=== PATIENT | female | born 1955 | race Caucasian/White ===

== ENCOUNTER 2022-11-11 08:05 | Outpatient (OUT) | payer MEDICARE, SELFPAY ==
--- NOTE | 2022-11-11 08:25 | MR_ITS ---
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 Images were performed before and after the administration of ml intravenous Dotarem contrast. FINDINGS: For the purposes of numbering, sagittal T2 image # 9 extends from the T10-11 vertebral body superiorly to the S2-3 level inferiorly. PARASPINAL AREA: Normal with no visible mass. BONES: Mild anterior wedging of L1 involving the inferior endplate without marrow edema. Mild grade 1 retrolisthesis of L1 on 2 and grade 1 anterior listhesis of L3 on 4. Posterior mechanical fusion of L4 and L5 on the left side only. CORD/CAUDA EQUINA: Normal caliber, contour, and signal intensity. LUMBAR DISC LEVELS: 12-L1: Early degenerative disc disease is present without focal protrusion or neural impingement. L1-L2: Mild central canal and bilateral foramen narrowing. Anterior wedging of the inferior endplates of L1. Minimal grade 1 retrolisthesis and moderate posterior diffuse disc bulging. No significant disc height reduction. No significant facet arthropathy. L2-L3: Early degenerative disc disease is present without focal protrusion or neural impingement. L3-L4: Moderate-marked right foramen and marked left foramen narrowing. No significant central canal narrowing. Mild diffuse disc bulging and marked bilateral degenerative facet arthropathy. L4-L5: L4 laminectomy and left side only L4-5 posterior mechanical fusion. Minimal grade 1 anterolisthesis of L4 on 5. No significant central canal narrowing. Mild-moderate left and mild right foramen narrowing. Marked degenerative facet arthropathy. L5-S1: Mild foramen narrowing bilaterally without significant central canal narrowing. No disc height reduction or significant disc bulging. Moderate marked degenerative facet arthropathy bilaterally. IMPRESSION: 1. Multilevel degenerative changes and surgical changes without appreciable acute abnormality or significant progression since prior study. 2. Scarring and soft tissue posterior to L4-5 at site of prior surgery and, without significant central canal or foramen narrowing. Electronically authenticated by: BEVERLEY ARDON Date: 11/11/2022 10:45
[2022-11-11 08:32] LABS: Estimated GFR (African America >60 (>=60); Estimated GFR (Non-African Ame 60 (>=60)
== END 2022-11-11 08:06 ==
LOC: LAB 08:08
PROVIDERS: PCP Family Medicine
DX: M48.061 Spinal stenosis, lumbar region without neurogenic claudication (principal); M53.3 Sacrococcygeal disorders, not elsewhere classified; Z98.1 Arthrodesis status
CPT/HCPCS: 36415; 72158; 82565; 84520; A9575

== ENCOUNTER 2022-12-28 13:16 | Outpatient (OUT) | payer MEDICARE, SELFPAY ==
[2022-12-28 13:15] VITALS: BP 133/83; PULSE 86; RESP 18; TEMP 36.3; O2SAT 97
== END 2022-12-28 13:17 | disposition home or self-care (01) ==
LOC: INF 13:17
PROVIDERS: PCP Family Medicine; Visit Provider Nurse Practitioner Family
DX: N39.0 Urinary tract infection, site not specified (principal)
CPT/HCPCS: 96366; J1335

== ENCOUNTER 2023-01-02 09:45 | Outpatient (RCR) | payer MEDICARE, SELFPAY ==
[2023-01-02 09:57] VITALS: BP 156/84; PULSE 65; RESP 16; TEMP 36.3; O2SAT 98
[2023-01-02 10:09] VITALS: BP 142/92; PULSE 76; RESP 16; TEMP 36.6; O2SAT 96
[2023-01-02] MEDS: ERTAPENEM SODIUM 1 GM in 0.9 % SODIUM CHLORIDE 50 ML IV (10:09)
[2023-01-03] MEDS: ERTAPENEM SODIUM 1 GM in 0.9 % SODIUM CHLORIDE 50 ML IV (09:53)
== END 2023-01-03 14:02 | disposition home or self-care (01) ==
LOC: INF 09:45
PROVIDERS: PCP Family Medicine; Visit Provider Family Medicine
DX: Z53.9 Procedure and treatment not carried out, unspecified reason (principal); N39.0 Urinary tract infection, site not specified
CPT/HCPCS: 96365; J1335

== ENCOUNTER 2023-01-02 10:00 | Outpatient (RCR) | payer MEDICARE, SELFPAY ==
[2022-12-29 14:17] VITALS: BP 136/74; PULSE 90; RESP 18; TEMP 36.3; O2SAT 98
[2022-12-29] MEDS: ERTAPENEM SODIUM 1 GM in 0.9 % SODIUM CHLORIDE 50 ML IV (14:38)
[2022-12-30 10:33] VITALS: BP 132/84; PULSE 75; RESP 16; TEMP 36.4; O2SAT 98
[2022-12-31 07:50] VITALS: BP 153/91; PULSE 95; RESP 16; TEMP 36; O2SAT 97
--- NOTE | 2022-12-31 07:50 | PC.NURSE ---
Pt. to [facility] amb. per self. Seated in recliner. VSS. Pt. with existing #[address] to left hand. No redness or edema to site. Flushes easily. Denies pain to site. IV Invanz initiated as ordered. Pt. offered snack, drink, pt. declines.
[2022-12-31] MEDS: ERTAPENEM SODIUM 1 GM in 0.9 % SODIUM CHLORIDE 50 ML IV (08:05)
--- NOTE | 2022-12-31 08:32 | PC.NURSE ---
IV Invanz completed. Pt. tolerated without c/o. IV left in and to SLF. Capped and wrapped with Coban dressing. Pt. d/c'd to home amb.
[2023-01-01 07:50] VITALS: BP 148/80; PULSE 84; RESP 20; TEMP 36.5; O2SAT 97
--- NOTE | 2023-01-01 07:50 | PC.NURSE ---
Pt. to [facility] amb. for daily antibiotic treatment. Seated in recliner. VSS. Pt. with existing IV to left hand. Leaks around insertion site when flushing. IV d/c'd, pressure to site. #22 gauge IV initiated to left lat. arm on first attempt without difficulty. Flushes easily with good blood return. Pt. tolerated with minimal c/o pain. IV Invanz initiated as ordered. Pt. given snack. Denies needs or c/o.
[2023-01-01] MEDS: ERTAPENEM SODIUM 1 GM in 0.9 % SODIUM CHLORIDE 50 ML IV (08:07)
--- NOTE | 2023-01-01 08:39 | PC.NURSE ---
IV Invanz completed. Pt. without s&s of adverse reaction. IV flushed with saline and to SLF. Arm wrapped with Coban dressing to protect IV. Pt. without c/o. D/c'd to home amb.
== END 2023-01-28 23:59 | disposition home or self-care (01) ==
LOC: INF 10:00
PROVIDERS: PCP Family Medicine; Visit Provider Nurse Practitioner Family
DX: N39.0 Urinary tract infection, site not specified (principal)
CPT/HCPCS: 96365; 96366; J1335

== ENCOUNTER 2023-01-04 08:54 | Outpatient (OUT) | payer MEDICARE, SELFPAY ==
[2023-01-04 09:22] LABS: Bilirubin Urine NEGATIVE (NEGATIVE); Blood Urine NEGATIVE (NEGATIVE); Clarity Urine CLEAR (CLEAR); Color Urine YELLOW (YELLOW); Glucose Urine UA NEGATIVE (NEGATIVE); Ketones Urine NEGATIVE (NEGATIVE); Leukocyte Esterase Urine NEGATIVE (NEGATIVE); Nitrite Urine NEGATIVE (NEGATIVE); Protein Urine NEGATIVE (NEG/TRACE); Specific Gravity Urine 1.025 (1.005-1.025); Urobilinogen Urine 0.2 EU/dL (0.2-1.0); pH Urine 5.5 (5.0-9.0)
[2023-01-04 09:54] LABS: Bacteria Urine NONE SEEN #/HPF (NONE SEEN); Mucus Urine NONE SEEN (NONE SEEN); RBC Urine NONE SEEN #/HPF (0-2); Squamous Epithelial Cell Urine RARE #/LPF (NONE/RARE); WBC Urine NONE SEEN #/HPF (NONE SEEN)
== END 2023-01-04 08:55 | disposition home or self-care (01) ==
LOC: LAB 08:56
PROVIDERS: PCP Family Medicine; Visit Provider Family Medicine
DX: N39.0 Urinary tract infection, site not specified (principal)
CPT/HCPCS: 81001; 87086

== ENCOUNTER 2023-04-20 11:27 | Outpatient (REF) | payer MEDICARE, SELFPAY ==
[2023-04-20 11:57] LABS: SARS-CoV-2 Ag POSITIVE (NEGATIVE)
--- OUTSIDE RECORDS SUMMARY | 2023-05-18 22:20 | XMS_ITS | CCD ---
Author Name Unknown Address [address] [facility] [address] [place] [address] Organization [facility] Care Team Providers Care Managing Cognitive Engineer Name Role Phone Ricardo Hooper MD Primary Care Provider Madisyn Lara MD Unavailable [phone] MD Ricardo Hooper Primary Care Provider [phone] MD Rocky Villasenor Attending Provider [phone] DO Enmanuel Burton Attending Provider Ricardo Hooper MD Primary Care Provider [phone] Ricardo Hooper MD Primary Care Provider Marco DANGELO, Madisyn Reagan Unavailable Ricardo Hooper MD Primary Care Provider [phone] Madisyn Lara MD Unavailable [phone] Ricardo Hooper MD Primary Care Provider [phone] DR RICARDO IYER Admitting Unavailable SANDIE ., DR SILVA Consulting Unavailable ANIY ., DR SILVA Attending Unavailable SANDIE ., DR SILVA Primary Care Unavailable SANDIE ., DR SILVA Admitting Unavailable SANDIE ., DR SILVA Consulting Unavailable SANDIE ., DR SILVA Attending Unavailable SANDIE ., DR SILVA Primary Care Unavailable DR ENMANUEL BURTON Consulting Unavailable DEREK COLLINS Consulting Unavailable SANDIE ., DR SILVA Primary Care Unavailable ZAFAR, DR JOSE ALBERTO Long Consulting Unavailable EVERARDO PERALTA Attending Unavailable EVERARDO PERALTA Admitting Unavailable EVERARDO PERALTA Consulting Unavailable VERNELL FARRELL Attending Unavailable VERNELL FARRELL Admitting Unavailable SANDIE ., DR SILVA Primary Care Unavailable VERNELL FARRELL Consulting Unavailable VERNELL FARRELL Attending Unavailable HOY ., DR SILVA Primary Care Unavailable JAMI, VERNELL Admitting Unavailable JAMI, VERNELL Admitting Unavailable VERNELL FARRELL Attending Unavailable HOY ., DR SILVA Primary Care Unavailable HOY ., DR SILVA Consulting Unavailable LAKSHMIPATHY ., NARENDRANATH Admitting Tierra vailable HOY ., DR SILVA Primary Care Unavailable LAKSHMIPATHY ., VIN Attending Tierra vailable HOY ., DR SILVA Admitting Unavailable HOY ., DR SILVA Primary Care Unavailable HOY ., DR SILVA Consulting Unavailable HOY ., DR SILVA Attending Unavailable MADISYN CAAL Consulting Unavailable HOY ., DR SILVA Consulting Unavailable HOY ., DR SILVA Attending Unavailable HOY ., DR SILVA Primary Care Unavailable HOY ., DR SILVA Admitting Unavailable HOY ., DR SILVA Admitting Unavailable HOY ., DR SILVA Consulting Unavailable HOY ., DR SILVA Attending Unavailable HOY ., DR SILVA Primary Care Unavailable FELISHA BARROW Consulting Unavailable HOY ., DR SILVA Primary Care Unavailable EVERARDO PERALTA Attending Unavailable THORP, DR JOSE ALBERTO Long Consulting Unavailable EVERARDO PERALTA Admitting Unavailable EVERARDO PERALTA Consulting Unavailable VERNELL FARRELL Consulting Unavailable VERNELL FARRELL Attending Unavailable VERNELL FARRELL Admitting Unavailable HOY ., DR SILVA Primary Care Unavailable HOY ., DR SILVA Primary Care Unavailable CLARI GILLETTE Admitting Unavailable AIDE LONDON Consulting Unavailabl e CLARI GILLETTE Attending Unavailable CECE VOGT Admitting Unavailable HOY ., DR SILVA Primary Care Unavailable CECE VOGT Attending Unavailable HOY ., DR SILVA Admitting Unavailable HOY ., DR SILVA Attending Unavailable HOY ., DR SILVA Primary Care Unavailable LEOBARDO BRASHER Attending Unavailable QUENTIN ., LEOBARDO Admitting Unavailable SANDIE ., DR SILVA Primary Care Unavailable QUENTIN .LEOBARDO Consulting Unavailable DIEGO ., DR IRELAND Attending Unavailable DIEGO ., DR IRELAND Admitting Unavailable SANDIE ., DR SILVA Primary Care Unavailable DR SHU RODRIGUES Consulting Unavailable Ricardo Hooper Primary Care Physician Rocael Wayne Attending Unavailable QUIQUE MOJICA Referring Unavailable RICARDO HOOPER Primary Care Unavailable KRISTOF, QUIQUE Referring Unavailable HOY, RICARDO M Primary Care Unavailable KRISTOF, QUIQUE Admitting Unavailable KRISTOF, QUIQUE Attending Unavailable BLOOD, JUVENAL P Consulting Unavailable HOY, RICARDO M Primary Care Unavailable MARVA HOBBS Consulting Unavailable JAIR, ZAINULABEDIN Consulting Unavailable KRISTOF, QUIQUE Admitting Unavailable KRISTOF, QUIQUE Attending Unavailable BLOOD, JUVENAL P Consulting Unavailable HOY, RICARDO M Primary Care Unavailable HOMER KARIMI Consulting Unavailable MD Ricardo Hooper Primary Care Provider [phone] Self, Referral Attending Provider Unavailable Hoy, Ricardo M Primary Care Unavailable Self, Referral Attending Unavailable Self, Referral Admitting Unavailable ABHYANKAR, JOSE Referring Unavailable ABHYANKAR, JOSE Attending Unavailable HOY, RICARDO M Primary Care Unavailable HOY, RICARDO M Primary Care Unavailable ABHYANKAR, JOSE Referring Unavailable ABHYANKAR, JOSE Attending Unavailable HOY, RICARDO M Primary Care Unavailable ABHYANKAR, JOSE Referring Unavailable HOY, RICARDO M Primary Care Unavailable ABHYANKAR, JOSE Referring Unavailable HOY, RICARDO M Primary Care Unavailable HOY, RICARDO M Primary Care Unavailable HOY, RICARDO M Primary Care Unavailable ABHYANKAR, JOSE Attending Unavailable ABHYANKAR, JOSE Referring Unavailable HOY, RICARDO M Primary Care Unavailable Marco DANGELO, Madisyn Reagan Unavailable Allergies Allergy Classification Reported Allergen(s) Allergy Type Date of Onset Reaction(s) Facility (11 sources) Ciprofloxacin; Translations: [ciprofloxacin] Drug Allergy 01-31-20 13 Intolerance, Respiratory function (observable entity), Joint pain (finding) [facility] (11 sources) Clindamycin; Translations: [clindamycin] Drug Allergy 01-24-20 15 Vomiting [facility] (13 sources) Doxycycline; Translations: [doxycycline] Drug Allergy 05-14-20 20 Vomiting, Nausea And Vomiting [facility] (8 sources) NITROFURANTOIN, MACROCRYSTALS / Nitrofurantoin, Monohydrate; Translations: [nitrofurantoin] Drug Allergy 10-23-19 22 GI Upset, Hives, Itching, Rash, Swelling [facility] (6 sources) Penicillins; Translations: [PENICILLINS] Drug Allergy 01-31-20 13 Shortness of Breath [facility] (8 sources) tioconazole; Translations: [tioconazole topical] Drug Allergy 01-23-20 15 Other: See Comments [facility] (7 sources) Skin Cleanser Combination No.17; Translations: [SKIN CLEANSER COMBINATION NO.17] Drug Allergy 09-02-19 18 Unknown [facility] (5 sources) Miconazole; Translations: [miconazole] Drug Allergy 01-31-20 13 vaginal burning [facility] (2 sources) Nitrofurantoin Drug Allergy 01-27-20 22 Rash [facility] (2 sources) Clindamycin/Lincom ycin Propensity to adverse reactions to drug 01-31-20 13 [facility] Work Phone: (5 sources) Penicillins Drug Allergy 01-24-20 15 Shortness of Breath [facility] (6 sources) levoFLOXacin; Translations: [levofloxacin] Drug Allergy 04-09-20 22 Myalgia, Joint swelling (finding) [facility] (1 source) Ciprofloxacin Drug Allergy 03-16-20 14 [facility] (1 source) Clindamycin Drug Allergy 03-16-20 14 [facility] (1 source) Doxycycline Drug Allergy 05-14-20 20 [facility] (3 sources) levoFLOXacin; Translations: [Levaquin] Drug Allergy 04-28-20 22 [facility] (1 source) Miconazole Drug Allergy [facility] (3 sources) Nitrofurantoin; Translations: [Macrobid] Drug Allergy 04-28-20 22 [facility] (1 source) Penicillins Drug allergy (disorder) 03-16-20 14 [facility] (2 sources) Penicillin; Translations: [penicillin] Drug Allergy [facility] (1 source) tioconazole; Translations: [tioconazole topical] Drug Allergy 01-23-20 15 [facility] (1 source) Clindamycin Drug Allergy 12-19-19 21 [facility] (1 source) Doxycycline Drug Allergy 12-19-19 21 [facility] (1 source) Penicillins Drug allergy (disorder) 12-19-19 21 [facility] Medications Current Medications Medication Drug Class(es) Dates Sig (Normalized) Sig (Original) acetaminophen 325 mg / oxyCODONE hydrochloride 5 mg oral tablet (2 sources) Opioid Agonist Start: 02-17-2022 End: 02-24-2022 take 1-2 tablets by mouth every four hours as needed for pain oxyCODONE-acetamino phen (PERCOCET) 5-325 MG per tablet Indications: Lumbar stenosis with neurogenic claudication Take 1-2 tablets by mouth every 4 hours as needed for Pain for up to 7 days. 60 tablet 0 02/17/2022 02/24/2022 Active Start: 02-16-2022 oxyCODONE-acet aminophen (PERCOCET) 5-325 MG per tablet 1 tablet biotin 10 mg oral tablet (1 source) take 1 tablet by mouth at bedtime Biotin 83534 MCG TABS Take 1 tablet by mouth in the morning and at bedtime 0 Active cefdinir 300 mg oral capsule (3 sources) Cephalosporin Antibacterial Start: 10-10-2022 End: 10-17-2022 take 1 capsule by mouth every twelve hours cefdinir 300 mg Cap 300 mg = 1 cap(s), Oral, q12hr, X 7 day(s), # 14 cap(s), Refills(s) 0 Start Date: 10/10/22 Stop Date: 10/17/22 Status: Ordered Start: 09-28-2022 take 2 capsules by m outh once daily cefdinir (OMNICEF) 300 mg capsule take 2 capsules by mouth once daily for 10 days 0 09/28/2022 Active Comment on above: take 2 capsules by m outh once daily for 10 days docusate sodium 50 mg / sennosides, correction 8.6 mg oral tablet (2 sources) Start: 02-16-2022 take 1 tablet by mouth twice daily sennosides-docusate sodium (SENOKOT-S) 8.6-50 MG tablet Take 1 tablet by mouth 2 times daily 60 tablet 0 02/17/2022 Active esomeprazole 40 mg delayed release oral capsule (11 sources) Proton Pump Inhibitor Start: 10-19-2009 take 1 capsule by mouth once daily Esomeprazole Magnesium (Nexium) 40 mg Capsule,Delayed Release(Dr/Ec) Active 40 MG PO Daily May 17, 2018 1:00am take 40 mg by mouth once daily e someprazole Magnesium (NEXIUM) 40 MG PACK Take 40 mg by mouth daily. 0 Active Comment on above: Take 40 mg by mouth. ferrous sulfate 325 mg oral tablet (4 sources) Start: 04-14-2022 End: 04-09-2023 take 1 tablet by mouth once daily at breakfast ferrous sulfate 325 mg (65 mg iron) tablet Take 1 tablet by mouth daily with breakfast. 30 tablet 6 04/14/2022 04/09/2023 Active Comment on above: Take 1 tablet by landy th daily with breakfast. ibuprofen 800 mg oral tablet (11 sources) Nonsteroidal Anti-inflammatory Drug Start: 10-10-2015 take 800 mg by mouth three times daily Ibuprofen Active 800 MG PO Three times daily May 17, 2018 1:00am take 1 tablet by landy th every six hours as needed ibuprofen (MOTRIN) 800 mg tablet Take 800 mg by mouth every 6 hours as needed. 0 Active End: 02-17-2022 take 1 tablet by mouth every eight hours as needed ibuprofen (ADVIL;MOTRIN) 800 MG tablet Take 800 mg by mouth every 8 hours as needed. 0 02/17/2022 Discontinued (Stop Taking at Discharge) Comment on above: Take 800 mg by mouth every 6 hours as needed. iv contrast (will be provide d with radiology test) (1 source) Start: 10-07-2022 End: 10-08-2022 iv contrast (will be provide d with radiology test) CT Chest W -Inject, intravenously, once for 1 dose.No IV access, insert saline lock prior to the beginning of sedation, infusion, injection of imaging exam. Discontinue saline lock post exam. If Pt. has a central line or IVAD, may access for administration according to line specific nursing protocol. Once exam is complete flush line and de-access according to line specific nursing protocol in the CT contrast administration guidelines link. 1 Each 0 10/07/2022 10/08/2022 Active Comment on above: CT Chest W -Inject, intravenously, once for 1 dose.No IV access, insert saline lock prior to the beginning of sedation, infusion, injection of imaging exam. Discontinue saline lock post exam. If Pt. has a central line or IVAD, may access for administration according to line specific nursing protocol. Once exam is complete flush line and de-access according to line specific nursing protocol in the CT contrast administration guidelines link. lisinopril 20 mg oral tablet (11 sources) Angiotensin Converting Enzyme Inhibitor Start: 10-10-2015 End: 02-17-2022 take 20 mg by mouth once daily Lisinopril Active 20 MG PO Daily May 17, 2018 1:00am Comment on above: lisinopril 20 mg tab let Take 1 tablet every day by oral route. mometasone furoate 0.05 mg/actuat metered dose nasal spray (3 sources) Corticosteroid Start: 12-18-2020 Mometasone (Na sonex) 50 mcg/actuation [place],Non-Aerosol Active 2 SPRAY INTRANASAL Daily December 18, 2020 12:00am take 2 spray(s) nasal route once daily mometasone (NASONEX) 50 MCG/ACT nasal spray 2 sprays by Each Nostril route daily 0 Active morphine (PF) injection 2 mg (1 source) Start: 02-16-2022 morphine (PF) injection 2 mg OXcarbazepine 150 mg oral tablet (1 source) Anti-epileptic Agent take 1 tablet by mouth twice daily OXcarbazepine (TRILEPTAL) 150 MG tablet Take 150 mg by mouth 2 times daily 0 Active predniSONE 20 mg oral tablet (1 source) Start: 10-10-2022 End: 10-17-2022 take 3 tablets by mouth once daily predniSONE 20 mg Tab 60 mg = 3 tab(s), Oral, Daily, X 7 day(s), # 21 tab(s), Refills(s) 0 Start Date: 10/10/22 Stop Date: 10/17/22 Status: Ordered Promethazine (1 source) Phenothiazine Start: 02-16-2022 promethazine (PHENERGAN) tablet 12.5 mg Sennosides (Senokot) 8.6 mg Tablet (2 sources) Start: 05-17-2018 take 8 tablets by mouth at bedtime Sennosides (Senokot) 8.6 mg Tablet Active 8 TAB PO Bedtime May 17, 2018 1:00am sennosides, correction 8.6 mg oral tablet (2 sources) Start: 10-10-2015 take 8.6 mg by mouth once daily Senokot 8.6 mg, Oral, Daily, Refills(s) 0, Constipation Start Date: 10/10/15 Status: Ordered traMADol hydrochloride 50 mg oral tablet (3 sources) Opioid Agonist Start: 12-18-2020 take 50 mg by mouth three times daily Tramadol Active 50 MG PO Three times daily December 18, 2020 12:00am take 1 tablet by landy th every six hours as needed for pain traMADol (ULTRAM) 50 MG tablet Take 50 m g by mouth every 6 hours as needed for Pain. 0 Active Completed/Discontinued Medications Medication Drug Class(es) Dates Sig (Normalized) Sig (Original) acetaminophen 500 mg oral tablet (1 source) Start: 02-16-2022 End: 02-16-2022 acetaminophen (TYLENOL) tablet 1,000 mg [id number] 200 actuat albuterol 0.09 mg/actuat metered dose inhaler (2 sources) beta2-Adrenergic Agonist Start: 02-16-2022 take 1 puff(s) by inhalation every six hours as needed 1 puff, Inhalation, EVERY 6 HOURS PRN, Starting on Wed02/16/22 at 1819, Until Discontinued, Wheezing, Shortness of Breath Initiate RT Bronchodilator Protocol: No Post-op albuterol sulfat e HFA (PROVENTIL;VENTOLIN;PROAIR) 108 (90 Base) MCG/ACT inhaler Ventolin HFA 90 mcg/actuation aerosol inhaler 0 Active baclofen 10 mg oral tablet (10 sources) gamma-Aminobutyric Acid-ergic Agonist Start: 02-16-2022 take 10 mg by mouth three times daily as needed 10 mg, Oral, 3 TIMES DAILY PRN, Starting on Wed02/16/22 at 1820, Until Discontinued, Muscle spasms, Post-op Start: 12-18-2020 take 20 mg by mouth once daily Baclofen Active 20 MG PO Daily December 18, 2020 12:00am Comment on above: Take 10 mg by mouth. calcium chloride 0.0014 meq/ml / potassium chloride 0.004 meq/ml / sodium chloride 0.103 meq/ml / sodium lactate 0.028 meq/ml injectable solution (1 source) Start: 02-16-2022 End: 02-16-2022 lactated ringers infusion 1 ml dexamethasone phosphate 10 mg/ml injection (1 source) Corticosteroid Start: 02-16-2022 End: 02-17-2022 6 mg, IntraVENous, EVERY 8 HOURS, First dose on Wed02/16/22 at 2200, For 3 doses, Post-op estradiol 0.1 mg/ml vaginal cream (9 sources) Estrogen Start: 05-17-2018 estradiol (EST RACE) 0.01 % (0.1 mg/gram) vaginal cream 1 g. 0 05/17/2018 Active Start: 05-17-2018 Estradiol (Est race) 0.01 % (0.1 mg/gram) Cream Active 1 GM VAGINAL every week May 17, 2018 1:00am Start: 10-10-2015 Estrace = 0.01 %, Refills(s) 0, Prophylaxis Start Date: 10/10/15 Status: Ordered Comment on above: 1 g. fluticasone propionate 0.05 mg/actuat metered dose nasal spray (3 sources) Corticosteroid Start: 02-16-2022 take 2 spray(s) nasal route once daily 2 spray, Each Nostril, DAILY, First dose on Wed02/16/22 at 1845, Until Discontinued Please select a reason the therapeutic interchange was not accepted: Okay for Pharmacy to Substitute Post-op fluticasone prop ionate (FLONASE NASAL) Use in the nose as needed. 0 Active Comment on above: Use in the nose as n eeded. gabapentin 300 mg oral capsule (1 source) Anti-epileptic Agent Start: 02-16-2022 End: 02-16-2022 gabapentin (NEURONTIN) capsule 300 mg 0.5 ml HYDROmorphone hydrochloride 1 mg/ml prefilled syringe (1 source) Opioid Agonist Start: 02-16-2022 End: 02-16-2022 HYDROmorphone HCl PF (DILAUDID) injection 0.5 mg hydrOXYzine hydrochloride 10 mg oral tablet (1 source) Antihistamine Start: 02-16-2022 take 10 mg by mouth every eight hours as needed 10 mg, Oral, EVERY 8 HOURS PRN, Starting on Wed02/16/22 at 1819, Until Discontinued, Itching, Post-op methenamine hippurate 1000 mg oral tablet (3 sources) Start: 06-05-2021 take 1 tablet by mouth twice daily at mealtime Methenamine Hippurate (HIPREX) 1 gram tablet Take 1 tablet by mouth twice daily with meals. 60 tablet 11 06/05/2021 Active Comment on above: Take 1 tablet by landy twice daily with meals. One A Day Women's Complete (1 source) Start: 02-07-2021 One A Day Women's Complete Oral, Daily Start Date: 02/07/21 Status: Ordered pantoprazole 40 mg delayed release oral tablet (1 source) Proton Pump Inhibitor Start: 02-16-2022 take 40 mg by mouth once daily 40 mg, Oral, DAILY, First dose on Wed02/16/22 at 1845, Until Discontinued Do not crush or break. Subst ituted for esomeprazole Post-op polyethylene glycol 3350 21028 mg powder for oral solution (1 source) Osmotic Laxative Start: 02-16-2022 17 g, Oral, DAILY, First dose on Wed02/16/22 at 1845, Until Discontinued, Post-op 5 ml sodium chloride 9 mg/ml injection (4 sources) Start: 02-16-2022 take 1 dose intravenously twice daily 5-40 mL, IntraVENous, EVERY 12 HOURS SCHEDULED (2 times per day), First dose on Wed02/16/22 at 2100, Until Discontinued For Line Patency: Peripheral IV = 5 mL; Midline or Central Line = 10 mL/lumen.&nbs p; If following IV push medication, administer flush at same rate as the IV push. Flush volume is determined by type of infusion therapy being given. &nbsp ;For non-viscous solutions use: Periphe ral IV = 5 mL Midline or Central Line = 10 mL/lumen &nb sp;For viscous solutions (i.e. blood components, parenteral nutrition, contrast media, or after obtaining blood sample) use: Periphe ral IV = 10 mL Midline or Central Line = 20 mL/lumen Post-op Start: 02-16-2022 IntraVENous, a t 5-250 mL/hr, PRN, if patient receiving piggyback infusions and maintenance fluids are not ordered OR KVO fluids to protect IV site / prevent frequent line interruptions/ long duration, Starting on Wed02/16/22 at 1819 For piggyback infusion, administer at same rate as piggyback for a total of 25 mL. Enter 25 mL into dose field and piggyback rate into rate field of order. If piggyback is infusing at a rate less than 100 mL/hr, enter 25 mL into dose field and 100 mL/hr into rate field of order. For KVO fluids, enter rate of 20 mL/hr or less into rate field of order. Post-op Start: 02-16-2022 IntraVENous, a t 125 mL/hr, CONTINUOUS, Starting on Wed02/16/22 at 1815, Post-op Start: 02-16-2022 take 5-40 mL intrave nously once as needed 5-40 mL, IntraVENous, PRN, Starting on Wed02/16/22 at 1819, Until Discontinued, Line Care, After every IV line use For Line Patency: Peripheral IV = 5 mL; Midline or Central Line = 10 mL/lumen. If following IV push medication, administer flush at same rate as the IV push. Flush volume is determined by type of infusion therapy being given. For non-viscous solutions use: Peripheral IV = 5 mL Midline or Central Line = 10 mL/lumen For viscous solutions (i.e. blood components, parenteral nutrition, contrast media, or after obtaining blood sample) use: Peripheral IV = 10 mL Midline or Central Line = 20 mL/lumen Post-op sulfamethoxazole 400 mg / trimethoprim 80 mg oral tablet (9 sources) Dihydrofolate Reductase Inhibitor Antibacterial, Sulfonamide Antimicrobial Start: 11-07-2021 sulfamethoxazole-trimethopri m (BACTRIM,SEPTRA) 400-80 mg per tablet Take by mouth once daily. 0 11/07/2021 Active Start: 12-18-2020 take 1 tablet by landy th once daily Sulfamethoxazole-Trimethoprim (Bactrim D s) 800-160 mg tablet Active 1 TAB PO Daily December 18, 2020 12:00am take 1 tablet by landy th once sulfamethoxazole-trimethoprim (BACTRIM DS;SEPTRA DS) 800-160 MG per tablet Take 1 tablet by mouth once 0 Active Comment on above: Take 1 tablet by landy th once daily. Take by mouth once d aily. tiZANidine 4 mg oral tablet (1 source) Central alpha-2 Adrenergic Agonist Start: 02-16-2022 End: 02-16-2022 tiZANidine (ZANAFLEX) tablet 4 mg traZODone hydrochloride 100 mg oral tablet (11 sources) Serotonin Reuptake Inhibitor Start: 10-19-2009 take 1 tablet by mouth once daily at bedtime traZODone (DESYREL) 100 mg tablet Take 100 mg by mouth daily at bedtime. 0 01/12/2019 Active Comment on above: Take 100 mg by mouth daily at bedtime. vancomycin (VANCOCIN) 1,500 mg in dextrose 5 % 250 mL IVPB (1 source) Start: 02-16-2022 End: 02-17-2022 1,500 mg, IntraVENous, EVERY 12 HOURS, 1 dose, First dose on 02/16/22 at 1845 Antimicrobial Indications: Surgical Prophylaxis Post-op Problems Active Problems Problem Classification Problem Date Documented Date Episodic/Chronic Chronic obstructive pulmonary disease and bronchiectasis (1 source) Bronchitis 08-11-2013 Episodic Coagulation and hemorrhagic disorders (8 sources) Platelet count below reference range; Translations: [Thrombocytopenia, unspecified] Onset: 07-15-2018 07-15-2018 Chronic Deficiency and other anemia (8 sources) Iron deficiency anemia secondary to inadequate dietary iron intake; Translations: [Other iron deficiency anemias] Onset: 04-10-2022 Episodic Deficiency and other anemia (1 source) Anemia, unspecified; Translations: [ANEMIA UNSPECIFIED] Onset: 09-04-2022 Episodic Diabetes mellitus without complication (1 source) Other abnormal glucose; Translations: [OTHER ABNORMAL GLUCOSE] Onset: 09-04-2022 Episodic Disorders of lipid metabolism (1 source) Hyperlipidemia, unspecified; Translations: [HYPERLIPIDEMIA UNSPECIFIED] Onset: 09-04-2022 Chronic Endometriosis (1 source) Endometriosis (clinical) 08-11-2013 Chronic Esophageal disorders (6 sources) Gastroesophageal reflux disease; Translations: [Gastro-esophageal reflux disease without esophagitis] Onset: 10-09-2022 12-18-2020 Chronic Essential hypertension (8 sources) Hypertensive disorder; Translations: [Essential (primary) hypertension] Onset: 08-29-2022 Chronic Menopausal disorders (1 source) Atrophy of vagina; Translations: [Postmenopausal atrophic vaginitis] Chronic Osteoarthritis (1 source) Arthritis 02-07-2021 Chronic Other acquired deformities (1 source) Spondylolisthesis, site unspecified; Translations: [Spondylolisthesis, site unspecified] Onset: 01-11-2023 Episodic Other aftercare (1 source) Other meterman (current) drug therapy; Translations: [OTH DISPATCHER RADIOACTIVE WASTE DISPOSAL CURRENT DRUG THERAPY] Onset: 10-09-2022 Episodic Other and unspecified benign neoplasm (2 sources) History of polyp of colon; Translations: [Personal history of colonic polyps] 12-18-2020 Episodic Other connective tissue disease (1 source) Presence of unspecified artificial knee joint; Translations: [PRESENCE UNS ARTIFICIAL KNEE JOINT] Onset: 10-09-2022 Chronic Other connective tissue disease (1 source) Fibromyalgia; Translations: [FIBROMYALGIA] Onset: 10-09-2022 Episodic Other ear and sense organ disorders (3 sources) Otalgia, left ear; Translations: [OTALGIA LEFT EAR] Onset: 10-08-2022 Episodic Other ear and sense organ disorders (1 source) Bullous myringitis, left ear; Translations: [BULLOUS MYRINGITIS LEFT EAR] Onset: 10-09-2022 Episodic Other non-traumatic joint disorders (4 sources) Pain in left ankle and joints of left foot; Translations: [PAIN IN LEFT ANKLE] Onset: 08-05-2022 Episodic Other screening for suspected conditions (not mental disorders or infectious disease) (1 source) Patient encounter status; Translations: [Encounter for screening for other disorder] Episodic Otitis media and related conditions (1 source) Non-suppurative otitis media; Translations: [Unspecified nonsuppurative otitis media, left ear] Onset: 10-10-2022 Episodic Residual codes; unclassified (1 source) Acquired absence of both cervix and uterus; Translations: [ACQUIRED ABSENCE BOTH CERVIX AND UTERUS] Onset: 10-09-2022 Episodic Spondylosis; intervertebral disc disorders; other back problems (9 sources) Spinal stenosis of lumbar region; Translations: [Spinal stenosis, lumbar region with neurogenic claudication] Onset: 01-26-2022 Episodic Unclassified (1 source) PERSONAL HISTORY OF COVID-19; Translations: [PERSONAL HISTORY OF COVID-19] Onset: 10-09-2022 Unclassified (3 sources) COUGH, UNSPECIFIED; Translations: [COUGH, UNSPECIFIED] Onset: 04-30-2022 Unclassified (1 source) CONTACT W/AND (SUSP) EXPOS COVID-19; Translations: [CONTACT W/AND (SUSP) EXPOS COVID-19] Onset: 04-30-2022 Unclassified (1 source) Encounter for screening mammogram for malignant neoplasm of breast; Translations: [Encounter for screening mammogram for malignant neoplasm of breast] Onset: 02-22-2023 Past or Other Problems Problem Classification Problem Date Documented Date Episodic/Chronic Abdominal pain (4 sources) Left lower quadrant pain; Translations: [LEFT LOWER QUADRANT PAIN] Onset: 12-26-2021 Episodic Acquired foot deformities (4 sources) Valgus deformity, not elsewhere classified, left ankle; Translations: [VALGUS DEFORMITY NEC LEFT ANKLE] Onset: 11-03-2021 Episodic Allergic reactions (4 sources) Allergic urticaria; Translations: [ALLERGIC URTICARIA] Onset: 10-22-2021 Episodic E Codes: Adverse effects of medical drugs (1 source) Adverse effect of other viral vaccines, initial encounter; Translations: [ADVERS EFF OTH VIRAL VACC INIT ENC] Onset: 04-30-2022 Episodic Genitourinary symptoms and ill-defined conditions (11 sources) Personal history of urinary (tract) infections; Translations: [Personal history of other diseases of urinary system] Onset: 11-12-2021 Episodic Influenza (1 source) Influenza due to other identified influenza virus with other respiratory manifestations; Translations: [FLU D/T OTH ID FLU VIR OTH RSP MANF] Onset: 04-30-2022 Episodic Lymphadenitis (8 sources) Mediastinal lymphadenopathy; Translations: [Localized enlarged lymph nodes] Onset: 01-15-2021 01-15-2021 Episodic Malaise and fatigue (1 source) Weakness; Translations: [WEAKNESS] Onset: 01-30-2022 Episodic Other connective tissue disease (6 sources) Enthesopathy of ankle AND/OR tarsus; Translations: [Other enthesopathy of unspecified foot and ankle] Onset: 08-19-2009 07-21-2018 Episodic Other connective tissue disease (6 sources) Tibialis tendinitis; Translations: [Posterior tibial tendinitis, unspecified leg] Onset: 08-19-2009 08-19-2009 Episodic Other connective tissue disease (1 source) Myalgia, unspecified site; Translations: [MYALGIA UNSPECIFIED SITE] Onset: 04-30-2022 Episodic Other connective tissue disease (4 sources) Posterior tibial tendinitis, left leg; Translations: [POSTERIOR TIBIAL TENDINITIS LT LEG] Onset: 11-17-2021 Episodic Other connective tissue disease (4 sources) Pain in left foot; Translations: [PAIN IN LEFT FOOT] Onset: 10-20-2021 Episodic Other diseases of kidney and ureters (1 source) Cyst of kidney, acquired; Translations: [CYST OF KIDNEY ACQUIRED] Onset: 11-26-2021 Episodic Other hematologic conditions (7 sources) Cytopenia; Translations: [Disease of blood and blood-forming organs, unspecified] Onset: 01-15-2021 01-15-2021 Episodic Other hematologic conditions (1 source) Disease of blood and blood-forming organs, unspecified; 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)] Onset: 01-15-2021 Episodic Other lower respiratory disease (8 sources) Multiple nodules of lung; Translations: [Other nonspecific abnormal finding of lung field] Onset: 01-15-2021 01-15-2021 Episodic Other lower respiratory disease (2 sources) Other nonspecific abnormal finding of lung field; Translations: [Pulmonary nodules] Onset: 01-15-2021 Episodic Other nervous system disorders (1 source) Unspecified abnormalities of gait and mobility; Translations: [UNS ABNORMALITIES GAIT AND MOBILITY] Onset: 01-30-2022 Episodic Other nervous system disorders (1 source) Other abnormalities of gait and mobility; Translations: [OTHER ABNORMALITIES GAIT AND MOBILITY] Onset: 01-30-2022 Episodic Unclassified (1 source) COUGH, UNSPECIFIED; Translations: [COUGH, UNSPECIFIED] Onset: 04-28-2022 Unclassified (1 source) cervical pre cancer cell 10-19-2009 Urinary tract infections (6 sources) Recurrent urinary tract infection; Translations: [Urinary tract infection, site not specified] Onset: 11-11-2021 Episodic Results Test Name Value Interpretation Reference Range Facil ity CBC W Auto Differential pane l (Bld)on 03-31-2023 Basophils (Bld) [#/Vol] 0.20 10*3/uL High <0.11 [facility] Comment on above: Order Comment: Speci men Type: BLOOD SPECIMENOrdering Facility: [facility] Address: [address] [place] [address] Performed By: #### 5 7021-8 ####[facility] LABCLIA [id number] [place] [id number] LABCLIA [id number] [place] [address] [place] Basophils/100 WBC (Bld) 3.0 % Normal [facility] Comment on above: Order Comment: Speci men Type: BLOOD SPECIMENOrdering Facility: [facility] Address: [address] [place] [address] Performed By: #### 5 7021-8 ####[facility] LABCLIA [id number] [address] LABCLIA [id number] [place] [address] [place] Differential cell count method Nom (Bld) Manual Normal [facility] Comment on above: Order Comment: Speci men Type: BLOOD SPECIMENOrdering Facility: [facility] Address: [address] [place] [address] Performed By: #### 5 7021-8 ####[facility] LABCLIA [id number] [address] LABCLIA [id number] [place] [address] [place] Eosinophils (Bld) [#/Vol] 0.40 10*3/uL Normal <0.46 [facility] Comment on above: Order Comment: Speci men Type: BLOOD SPECIMENOrdering Facility: [facility] Address: [address] [place] [address] Performed By: #### 5 7021-8 ####[facility] LABCLIA [id number] [address] LABCLIA [id number] [place] [address] [place] Eosinophils/100 WBC (Bld) 6.0 % Normal [facility] Comment on above: Order Comment: Speci men Type: BLOOD SPECIMENOrdering Facility: [facility] Address: [address] [place] [address] Performed By: #### 5 7021-8 ####[facility] LABCLIA [id number] [address] LABCLIA [id number] [place] [address] [place] Erythrocyte distribution wid th (RBC) [Ratio] 14.0 % Normal 11.5-15.0 [facility] Comment on above: Order Comment: Speci men Type: BLOOD SPECIMENOrdering Facility: [facility] Address: [address] [place] [address] Performed By: #### 5 7021-8 ####[facility] LABCLIA [id number] [address] LABCLIA [id number] [place] [address] [place] Hematocrit (Bld) [Volume fraction] 42.2 % Normal 3 6.0-46.0 [facility] Comment on above: Order Comment: Speci men Type: BLOOD SPECIMENOrdering Facility: [facility] Address: [address] [place] [address] Performed By: #### 5 7021-8 ####[facility] LABCLIA [id number] [place] [id number] LABCLIA [id number] [place] [address] [place] Hemoglobin (Bld) [Mass/Vol] 13.3 g/dL Normal 11.5-15. 5 [facility] Comment on above: Order Comment: Speci men Type: BLOOD SPECIMENOrdering Facility: [facility] Address: [address] [place] [address] Performed By: #### 5 7021-8 ####[facility] LABCLIA [id number] [address] LABCLIA [id number] [place] [address] [place] Lymphocytes (Bld) [#/Vol] 3.56 10*3/uL Normal 1.00-4.0 0 [facility] Comment on above: Order Comment: Speci men Type: BLOOD SPECIMENOrdering Facility: [facility] Address: [address] [place] [address] Performed By: #### 5 7021-8 ####[facility] LABCLIA [id number] [address] LABCLIA [id number] [place] [address] [place] Lymphocytes/100 WBC (Bld) 54.0 % Normal [facility] Comment on above: Order Comment: Speci men Type: BLOOD SPECIMENOrdering Facility: [facility] Address: [address] [place] [address] Performed By: #### 5 7021-8 ####[facility] LABCLIA [id number] [address] LABCLIA [id number] [place] [address] [place] MCH (RBC) [Entitic mass] 27.4 pg Normal 26.0-34.0 [facility] Comment on above: Order Comment: Speci men Type: BLOOD SPECIMENOrdering Facility: [facility] Address: [address] [place] [address] Performed By: #### 5 7021-8 ####[facility] LABCLIA [id number] [address] LABCLIA [id number] [place] [address] [place] MCHC (RBC) [Mass/Vol] 31.5 g/dL Normal 30.5-36.0 [facility] Comment on above: Order Comment: Speci men Type: BLOOD SPECIMENOrdering Facility: [facility] Address: [address] [place] [address] Performed By: #### 5 7021-8 ####[facility] LABCLIA [id number] [address] LABCLIA [id number] [place] [address] [place] MCV (RBC) [Entitic vol] 86.8 fL Normal 80.0-100.0 [facility] Comment on above: Order Comment: Speci men Type: BLOOD SPECIMENOrdering Facility: [facility] Address: [address] [place] [address] Performed By: #### 5 7021-8 ####[facility] LABCLIA [id number] [address] LABCLIA [id number] [place] [address] [place] Monocytes (Bld) [#/Vol] 0.66 10*3/uL Normal <0.87 [facility] Comment on above: Order Comment: Speci men Type: BLOOD SPECIMENOrdering Facility: [facility] Address: [address] [place] [address] Performed By: #### 5 7021-8 ####[facility] LABCLIA [id number] [address] LABCLIA [id number] [place] [address] [place] Monocytes/100 WBC (Bld) 10.0 % Normal [facility] Comment on above: Order Comment: Speci men Type: BLOOD SPECIMENOrdering Facility: [facility] Address: [address] [place] [address] Performed By: #### 5 7021-8 ####[facility] LABCLIA [id number] [address] LABCLIA [id number] [place] [address] [place] Neutrophils (Bld) [#/Vol] 1.78 10*3/uL Normal 1.45-7.5 0 [facility] Comment on above: Order Comment: Speci men Type: BLOOD SPECIMENOrdering Facility: [facility] Address: [address] [place] [address] Performed By: #### 5 7021-8 ####[facility] LABCLIA [id number] [address] LABCLIA [id number] [place] [address] [place] Neutrophils/100 WBC (Bld) 27.0 % Normal [facility] Comment on above: Order Comment: Speci men Type: BLOOD SPECIMENOrdering Facility: [facility] Address: [address] [place] [address] Performed By: #### 5 7021-8 ####[facility] LABCLIA [id number] [address] LABCLIA [id number] [place] [address] [place] Nucleated RBC (Bld) [#/Vol] 10*3/uL Normal <0.01 [facility] Comment on above: Order Comment: Speci men Type: BLOOD SPECIMENOrdering Facility: [facility] Address: [address] [place] [address] Performed By: #### 5 7021-8 ####[facility] LABCLIA [id number] [address] LABCLIA [id number] [place] [address] [place] Nucleated RBC/100 WBC (Bld) [Ratio] 0.0 /100 WBC Normal [facility] Comment on above: Order Comment: Speci men Type: BLOOD SPECIMENOrdering Facility: [facility] Address: [address] [place] [address] Performed By: #### 5 7021-8 ####[facility] LABCLIA [id number] [address] LABCLIA [id number] [place] [address] [place] Ovalocytes LM Ql (Bld) Few Normal Cl [facility] Comment on above: Order Comment: Speci men Type: BLOOD SPECIMENOrdering Facility: [facility] Address: [address] [place] [address] Performed By: #### 5 7021-8 ####[facility] LABCLIA [id number] [address] LABCLIA [id number] [place] [address] [place] Platelet mean volume (Bld) [Entitic vol] 10.5 fL Normal 9.0-12.7 [facility] Comment on above: Order Comment: Speci men Type: BLOOD SPECIMENOrdering Facility: [facility] Address: [address] [place] [address] Performed By: #### 5 7021-8 ####[facility] LABCLIA [id number] [address] LABCLIA [id number] [place] [address] [place] Platelets (Bld) [#/Vol] 265 10*3/uL Normal 150-400 [facility] Comment on above: Order Comment: Speci men Type: BLOOD SPECIMENOrdering Facility: [facility] Address: [address] [place] [address] Performed By: #### 5 7021-8 ####[facility] LABCLIA [id number] [address] LABCLIA [id number] [place] [address] [place] Platelets Estimate (Bld) [#/Vol] Adequate Normal [facility] Comment on above: Order Comment: Speci men Type: BLOOD SPECIMENOrdering Facility: [facility] Address: [address] [place] [address] Performed By: #### 5 7021-8 ####[facility] LABCLIA [id number] [address] LABCLIA [id number] [place] [address] [place] RBC (Bld) [#/Vol] 4.86 10*6/uL Normal 3.90-5.20 [facility] Comment on above: Order Comment: Speci men Type: BLOOD SPECIMENOrdering Facility: [facility] Address: [address] [place] [address] Performed By: #### 5 7021-8 ####[facility] LABCLIA [id number] [address] LABCLIA [id number] [place] [address] [place] RED CELL MORPH Reviewed: see result s of individual morphologies Normal [facility] Comment on above: Order Comment: Speci men Type: BLOOD SPECIMENOrdering Facility: [facility] Address: [address] [place] [address] Performed By: #### 5 7021-8 ####[facility] LABCLIA [id number] [address] LABCLIA [id number] [place] [address] [place] WBC (Bld) [#/Vol] 6.59 10*3/uL Normal 3.70-11.00 [facility] Comment on above: Order Comment: Speci men Type: BLOOD SPECIMENOrdering Facility: [facility] Address: [address] [place] [address] Performed By: #### 5 7021-8 ####[facility] LABCLIA [id number] [address] [facility] LABCLIA [id number] [address] [address] [place] [address] CHEST W IVCONon 3 CT CHEST W IVCON * * *Final Report* * * DATE OF EXAM: Mar 31 2023 9:25AM [facility] 0539 - CT CHEST W IVCON / PROCEDURE REASON: Lung nodules * * * * Physician Interpretation * * * * RESULT: EXAMINATION: CHEST CT WITH CONTRAST CLINICAL HISTORY: Lung nodules Technique: Spiral CT acquisition of the chest from the thoracic inlet to the upper abdomen following IV contrast. MQ: CTCWR_5 Contrast: 50 mL Omnipaque [address] Dose-Length Product: 356 mGy*cm CT Dose Reduction Employed: Automated exposure control (AEC) Comparison: 04/06/22 RESULT: Limitations: None. Lines, tubes, and devices: None. Lung parenchyma and pleura: 5-6 mm left upper lobe groundglass opacity (image 4: 79), stable. 4 mm nodular opacity along the left major fissure (image 4: 77) and may represent an intrapulmonary lymph node, stable. Interval resolution of a previously noted left lower lobe nodular opacity. No new airspace opacities. No pleural effusion. Central airways are patent. Thoracic inlet, heart, and mediastinum: Borderline mediastinal lymphadenopathy is stable. For example (short axis measurement): * 1.0 cm aortopulmonary window (image 3: 60) * 0.9 cm subcarinal (image 3: 83) The thoracic aorta and main pulmonary artery are normal in caliber. The cardiac chambers are normal in size. No coronary artery atherosclerotic calcifications are noted, although the study is not optimized for coronary assessment. No pericardial effusion or thickening. Small hiatal hernia. Bones and soft tissues: No suspicious lytic or blastic osseous lesions. Upper abdomen: Stable IMPRESSION: 1. Interval resolution of previously noted left lower lobe nodular opacity. 2. Residual subcentimeter nodular opacities and groundglass opacities measuring up to 5-6 mm, stable since 04/06/22. 3. Borderline mediastinal lymphadenopathy, stable. Transcribe Date/Time: Mar 31 2023 3:51P Dictated by: RICHARD NORTON MD This examination was interpreted and the report reviewed and electronically signed by: RICHARD NORTON MD on Mar 31 2023 4:02PM EST Thank you for allowing us to participate in the care of your patient. Should there be any questions regarding this interpretation, please call [phone]. If you are unable to reach us at the number above, please feel free to contact [facility] at [phone]. [id number] Normal [facility] Comprehensive metabolic 2000 panelon 03-31-2023 Albumin [Mass/Vol] 4.5 g/dL Normal 3.9-4.9 [facility] Comment on above: Order Comment: Speci men Type: BLOOD SPECIMENOrdering Facility: [facility] Address: [address] [place] [address] Performed By: #### 2 4323-8 ####[facility] LABCLIA [id number] [place] [address] ALP [Catalytic activity/Vol] 85 U/L Normal 34-123 [facility] Comment on above: Order Comment: Speci men Type: BLOOD SPECIMENOrdering Facility: [facility] Address: [address] [place] [address] Performed By: #### 2 4323-8 ####[facility] LABCLIA [id number] [place] [address] ALT [Catalytic activity/Vol] 20 U/L Normal 7-38 [facility] Comment on above: Order Comment: Speci men Type: BLOOD SPECIMENOrdering Facility: [facility] Address: [address] [place] [address] Performed By: #### 2 4323-8 ####[facility] LABCLIA [id number] [place] [address] Anion gap [Moles/Vol] 9 mmol/L Normal 9-18 [facility] Comment on above: Order Comment: Speci men Type: BLOOD SPECIMENOrdering Facility: [facility] Address: [address] [place] [address] Performed By: #### 2 4323-8 ####[facility] LABCLIA [id number] [place] [address] AST [Catalytic activity/Vol] 22 U/L Normal 13-35 [facility] Comment on above: Order Comment: Speci men Type: BLOOD SPECIMENOrdering Facility: [facility] Address: [address] [place] [address] Performed By: #### 2 4323-8 ####[facility] LABCLIA [id number] [place] [address] Bilirubin [Mass/Vol] 0.3 mg/dL Normal 0.2-1.3 [facility] Comment on above: Order Comment: Speci men Type: BLOOD SPECIMENOrdering Facility: [facility] Address: [address] [place] [address] Performed By: #### 2 4323-8 ####[facility] LABCLIA [id number] [place] [address] Calcium [Mass/Vol] 9.6 mg/dL Normal 8.5-10.2 [facility] Comment on above: Order Comment: Speci men Type: BLOOD SPECIMENOrdering Facility: [facility] Address: [address] [place] [address] Performed By: #### 2 4323-8 ####[facility] LABCLIA [id number] [place] [address] Chloride [Moles/Vol] 105 mmol/L Normal 97-105 [facility] Comment on above: Order Comment: Speci men Type: BLOOD SPECIMENOrdering Facility: [facility] Address: [address] [place] [address] Performed By: #### 2 4323-8 ####[facility] LABCLIA [id number] [place] [address] CO2 [Moles/Vol] 28 mmol/L Normal 22-30 [facility] Comment on above: Order Comment: Speci men Type: BLOOD SPECIMENOrdering Facility: [facility] Address: [address] [place] [address] Performed By: #### 2 4323-8 ####[facility] LABCLIA [id number] [place] [address] Creatinine [Mass/Vol] 0.98 mg/dL High 0.58-0.96 [facility] Comment on above: Order Comment: Speci edmund Type: BLOOD SPECIMENOrdering Facility: [facility] Address: [address] [place] [address] Performed By: #### 2 4323-8 ####[facility] LABCLIA [id number] [place] [address] Creatinine and Glomerular filtration rate.predicted panel (S/P/Bld) 64 mL/min/1.73m??? Normal >=60 [facility] Comment on above: Order Comment: Rocio edmund Type: BLOOD SPECIMENOrdering Facility: [facility] Address: [address] [place] [address] Result Comment: Abigail mated Glomerular Filtration Rate (eGFR) is calculated using the 2020 CKD-EPI creatinine equation. This equation utilizes serum creatinine, sex, and age as parameters. The creatinine assay has traceable calibration to isotope dilution-mass spectrometry. Refer to KDIGO guidelines for clinical interpretation. In patients with unstable renal function, e.g. those with acute kidney injury, the eGFR may not accurately reflect actual GFR. Performed By: #### 2 4323-8 ####[facility] LABCLIA [id number] [place] [address] Glucose [Mass/Vol] 102 mg/dL High 74-99 [facility] Comment on above: Order Comment: Speci men Type: BLOOD SPECIMENOrdering Facility: [facility] Address: [address] [place] [address] Result Comment: The [place] Diabetes [employer] (ADA) provides guidance for cutoff values for fasting glucose and random glucose. The ADA defines fasting as no caloric intake for at least 8 hours. Fasting plasma glucose results between 100 to 125 mg/dL indicate increased risk for diabetes (prediabetes). Fasting plasma glucose results greater than or equal to 126 mg/dL meet the criteria for diagnosis of diabetes. In the absence of unequivocal hyperglycemia, results should be confirmed by repeat testing. In a patient with classic symptoms of hyperglycemia or hyperglycemic crisis, random plasma glucose results greater than or equal to 200 mg/dL meet the criteria for diagnosis of diabetes. Reference: Standards of Medical Care in Diabetes 2016, [place] [employer]. Diabetes Care. 2016.39(Suppl 1). Performed By: #### 2 4323-8 ####[facility] LABCLIA [id number] [place] [address] Potassium [Moles/Vol] 4.2 mmol/L Normal 3.7-5.1 [facility] Comment on above: Order Comment: Speci men Type: BLOOD SPECIMENOrdering Facility: [facility] Address: [address] [place] [address] Performed By: #### 2 4323-8 ####[facility] LABCLIA [id number] [place] [address] Protein [Mass/Vol] 7.0 g/dL Normal 6.3-8.0 [facility] Comment on above: Order Comment: Speci men Type: BLOOD SPECIMENOrdering Facility: [facility] Address: [address] [place] [address] Performed By: #### 2 4323-8 ####[facility] LABCLIA [id number] [place] [address] Sodium [Moles/Vol] 142 mmol/L Normal 136-144 [facility] Comment on above: Order Comment: Speci men Type: BLOOD SPECIMENOrdering Facility: [facility] Address: [address] [place] [address] Performed By: #### 2 4323-8 ####[facility] LABCLIA [id number] [place] [address] Urea nitrogen [Mass/Vol] 9 mg/dL Normal 7-21 [facility] Comment on above: Order Comment: Speci men Type: BLOOD SPECIMENOrdering Facility: [facility] Address: [address] [place] [address] Performed By: #### 2 4323-8 ####[facility] LABCLIA [id number] [place] [address] Ferritin SerPl-mCncon 2022 Ferritin [Mass/Vol] 11.8 ng/mL Low 14.7-205.1 [facility] Comment on above: Order Comment: Speci men Type: BLOOD SPECIMENOrdering Facility: [facility] Address: [address] [place] [address] Performed By: #### 5 0190-8, 2284-8, 9, 4 ####[facility] LABCLIA [id number] [place] [address] [place] [facility] Folate [Mass/Vol] Normal [facility] Comment on above: Order Comment: Speci men Type: BLOOD SPECIMENOrdering Facility: [facility] Address: [address] [place] [address] Result Comment: Unab le to assay due to interference from hemolysis. Suggest reorder as clinically indicated. Performed By: #### 5 0190-8, 2284-8, 2132-01, 2275-08 ####[facility] LABCLIA [id number] [place] [address] [place] Iron and Iron binding capaci ty panelon 03-31-2023 Iron [Mass/Vol] 63 ug/dL Normal 41-186 [facility] Comment on above: Order Comment: Speci men Type: BLOOD SPECIMENOrdering Facility: [facility] Address: [address] [place] [address] Performed By: #### 5 0190-8, 2284-8, 9, 2275-08 ####[facility] LABCLIA [id number] [place] [address] [place] Iron binding capacity [Mass/Vol] Normal [facility] Comment on above: Order Comment: Speci men Type: BLOOD SPECIMENOrdering Facility: [facility] Address: [address] [place] [address] Result Comment: Unab le to calculate due to hemolysis. Performed By: #### 5 0190-8, 4-8, 2132-01, 2275-08 ####[facility] LABCLIA [id number] [place] [address] [place] Iron/TIBC [Molar ratio] Normal [facility] Comment on above: Order Comment: Speci men Type: BLOOD SPECIMENOrdering Facility: [facility] Address: [address] [place] [address] Result Comment: Unab le to calculate due to hemolysis. Performed By: #### 5 0190-8, 2283-8, 2132-01, 2275-08 ####[facility] LABCLIA [id number] [place] [address] [place] Vit B12 [facility] 11-01-2 023 Cobalamin (Vitamin B12) [Mass/Vol] 327 pg/mL Normal 232-1245 [facility] Comment on above: Order Comment: Speci men Type: BLOOD SPECIMENOrdering Facility: [facility] Address: [address] [place] [address] Performed By: #### 5 0190-8, 2283-8, 2132-01, 2275-08 ####[facility] LABCLIA [id number] [place] [address] [place] MM screening mammo BI w/CADo n 02-22-2023 MM screening mammo BI w/CAD [facility] [place] [address] Mammography Report Signed Patient: Jessica Ferrera MR#: [id number] 7 : 1955 Acct:[id number] Age/Sex: 67 / F ADM Date: 02/22/23 Loc: [place] Room: Type: [facility] Attending Dr: Referral Self Copies to: Ricardo Hooper MD SELF,REFERRAL Ordering Provider: SELF,REFERRAL Date of Service: 02/22/23 MM/MM screening mammo BI w/CAD: SCREENING BILATERAL Screening Full Field digital mammogram with 3-D imaging. Full field digital CC and MLO imaging performed. CAD utilized. COMPARISON: 01/21/2022 HISTORY: Annual screening BREAST COMPOSITION: Scattered fibroglandular densities of the breast parenchyma identified BENIGN BREAST CALCIFICATIONS: Present VASCULAR CALCIFICATIONS: None DEVELOPING ARCHITECTURAL DISTORTION: None DEVELOPING BREAST NODULE: None DEVELOPING MALIGNANT CALCIFICATIONS: None AXILLARY LYMPH NODES: Normal POSTSURGICAL CHANGES: None MM/MM screening mammo BI w/CAD IMPRESSION: No mammographic evidence of malignancy. Routine follow-up recommended in one year. RESULT CODE: 2 Benign Findings(s) DENSITY CODE: 2 (approximately 25-50% glandular) FOLLOW UP: 1YR THE FALSE-NEGATIVE RATE OF MAMMOGRAPHY IS APPROXIMATELY 10%. IMAGING OF A PALPABLE ABNORMALITY MUST BE BASED ON CLINICAL GROUNDS. PATIENT WAS ENTERED INTO A REMINDER SYSTEM WITH A TARGET DUE DATE FOR THE NEXT MAMMOGRAM. Impression dictated by: Juvenal Hanley M.D.02/22/2023 10:30 AM Dictation Location: [facility] Transcribed By: [facility] 02/22/23 1030 Dictated By: Juvenal Hanley DO 02/22/23 1029 Signed By: 02/22/23 1030 [facility] Basic Metabolic Profon 01-12 Anion gap [Moles/Vol] 10 mmol/L Normal 9-17 [facility] Comment on above: Performed By: #### C DP, BMP ####[facility] Lhu[address] [facility] [place] [address] lab Director: Jelani Liu MD BUN/CRE Ratio 14 Normal 9-20 [facility] Comment on above: Performed By: #### C DP, BMP ####[facility] Lop68[address] [facility] CenterjavierB[place], [place] [id number] lab Director: Jelani Liu MD Calcium [Mass/Vol] 8.5 mg/dL Low 8.6-10.4 [facility] Comment on above: Performed By: #### C DP, BMP ####[facility] Ssq[address]85 [facility] [place] [address] Lab Director: Jelani Liu MD Chloride [Moles/Vol] 108 mmol/L High 98-107 [facility] Comment on above: Performed By: #### C DP, BMP ####[facility] Wjp8585 [facility] [place] [address] Lab Director: Jelani Liu MD CO2 [Moles/Vol] 23 mmol/L Normal 20-31 [facility] Comment on above: Performed By: #### C DP, BMP ####[facility] [address] [place] [address].[place] [address] Lab Director: Jelani Liu MD Creatinine [Mass/Vol] 0.8 mg/dL Normal 0.5-0.9 [facility] Comment on above: Performed By: #### C DP, BMP ####[facility] [address] [place] [address].[place] [address] Lab Director: Jelani Liu MD GFR/1.73 sq M.predicted bianca g non-blacks MDRD (S/P/Bld) [Vol rate/Area] mL/min/{1.73_m2} Normal >60 [facility] Comment on above: Result Comment: These results are not intended for use in patients <18 years of age. eGFR results are calculated without a race factor using the 2020 CKD-EPI equation. Careful clinical correlation is recommended, particularly when comparing to results calculated using previous equations. The CKD-EPI equation is less accurate in patients with extremes of muscle mass, extra-renal metabolism of creatine, excessive creatine ingestion, or following therapy that affects renal tubular secretion. Performed By: #### C DP, BMP ####[facility] [address] [place] [address].[place] [address] Lab Director: Jelani Liu MD Glucose [Mass/Vol] 156 mg/dL High 70-99 [facility] Comment on above: Performed By: #### C DP, BMP ####[facility] Fbt[address]149 [facility] [place] [address] Lab Director: Jelani Liu MD Potassium [Moles/Vol] 4.5 mmol/L Normal 3.7-5.3 [facility] Comment on above: Performed By: #### C DP, BMP ####[facility] [address] [place] [address].[place], [place] [phone] Director: Jelani Liu MD Sodium [Moles/Vol] 141 mmol/L Normal 135-144 [facility] Comment on above: Performed By: #### C DP, BMP ####[facility] [address] [place] [address] [phone] Director: Jelani Liu MD Urea nitrogen [Mass/Vol] 11 mg/dL Normal 8-23 [facility] Comment on above: Performed By: #### C DP, BMP ####[facility] X[address] [place] [address].[place] [address] Lab Director: Jelani Liu MD CBC with Diffon 01-12-2023 Abs. Basophil <0.03 Normal 0.00-0.20 [facility] Comment on above: Performed By: #### C DP, BMP ####[facility] [address] [place] [address].[place] [address]([facility])[phone] Director: Jelani Liu MD Abs. Eosinophil <0.03 Normal 0.00-0.44 [facility] Comment on above: Performed By: #### C DP, BMP ####[facility] [address] [place] [address].[place] [address] Lab Director: Jelani Liu MD Abs.Imm.Granulocyte 0.05 k/uL Normal 0.00-0.30 [facility] Comment on above: Performed By: #### C DP, BMP ####[facility] Lpk8900 [facility] [place] [address] Lab Director: Jelani Liu MD Abs.Neutrophil (Seg) 10.35 k/uL High 1.50-8.10 [facility] Comment on above: Performed By: #### C DP, BMP ####[facility] Dwh4205 [facility], [place] [phone] Director: Jelani Liu MD Basophils/100 WBC (Bld) 0 % Normal 0-2 [facility] Comment on above: Performed By: #### C DP, BMP ####[facility] [address] [place] [phone] Director: Jelani Liu MD Eosinophils/100 WBC (Bld) 0 % Low 1-4 [facility] Comment on above: Performed By: #### C DP, BMP ####[facility] [address] [place] [address] Lab Director: Jelani Liu MD Erythrocyte distribution wid th (RBC) [Ratio] 12.9 % Normal 11.8-14.4 [facility] Comment on above: Performed By: #### C DP, BMP ####[facility] [address] [place] [address].[place] [phone] Director: Jelani Liu MD Hematocrit (Bld) [Volume fraction] 37.4 % Normal 3 6.3-47.1 [facility] Comment on above: Performed By: #### C DP, BMP ####[facility] [address] [place] [phone] Director: Jelani Liu MD Hemoglobin (Bld) [Mass/Vol] 11.8 g/dL Low 11.9-15. 1 [facility] Comment on above: Performed By: #### C DP, BMP ####[facility] [address] [place] [address] Lab Director: Jelani Liu MD Immature granulocytes/100 WBC (Bld) 0 % Normal 0 [facility] Comment on above: Performed By: #### C DP, BMP ####[facility] [address] [place] [address] Lab Director: Jelani Liu MD Lymphocytes (Bld) [#/Vol] 1.70 10*3/uL Normal 1.10-3.7 0 [facility] Comment on above: Performed By: #### C DP, BMP ####[facility] [address] [place] [address] Lab Director: Jelani Liu MD Lymphocytes/100 WBC (Bld) 13 % Low 24-43 [facility] Comment on above: Performed By: #### C DP, BMP ####[facility] Y[address] [place] [address] Lab Director: Jelani Liu MD MCH (RBC) [Entitic mass] 29.7 pg Normal 25.2-33.5 [facility] Comment on above: Performed By: #### C DP, BMP ####[facility] [address] [place] [address] Lab Director: Jelani Liu MD MCHC (RBC) [Mass/Vol] 31.6 g/dL Normal 28.4-34.8 [facility] Comment on above: Performed By: #### C DP, BMP ####[facility] [address] [place] [address] Lab Director: Jelani Liu MD MCV (RBC) [Entitic vol] 94.2 fL Normal 82.6-102.9 [facility] Comment on above: Performed By: #### C DP, BMP ####[facility] Yva2781 [facility] [place] [address] Lab Director: Jelani Liu MD Monocytes (Bld) [#/Vol] 0.61 10*3/uL Normal 0.10-1.20 [facility] Comment on above: Performed By: #### C DP, BMP ####[facility] Tog[address]018 [place] [address] Lab Director: Jelani Liu MD Monocytes/100 WBC (Bld) 5 % Normal 3-12 [facility] Comment on above: Performed By: #### C DP, BMP ####[facility] [address] [place] [address] Lab Director: Jelani Liu MD Neutrophil (Seg) 82 % High 36-65 [facility] Comment on above: Performed By: #### C DP, BMP ####[facility] [address] [place] [address].[place] [address] Lab Director: Jelani Liu MD NRBC Automated 0.0 per 100 WBC Normal 0.0 [facility] Comment on above: Performed By: #### C DP, BMP ####[facility] [address] [place] [address].[place] [address] Lab Director: Jelani Liu MD Platelet mean volume (Bld) [ Entitic vol] 10.1 fL Normal 8.1-13.5 [facility] Comment on above: Performed By: #### C DP, BMP ####[facility] Z[address] [place] [address].[place] [address] Lab Director: Jelani Liu MD Platelets (Bld) [#/Vol] 221 10*3/uL Normal 138-453 [facility] Comment on above: Performed By: #### C DP, BMP ####[facility] [address] [facility] [place] [address] Lab Director: Jelani Liu MD RBC (Bld) [#/Vol] 3.97 10*6/uL Normal 3.95-5.11 [facility] Comment on above: Performed By: #### C DP, BMP ####[facility] Eld[address] [facility], [place] [phone] Director: Jelani Liu MD WBC (Bld) [#/Vol] 12.7 10*3/uL High 3.5-11.3 [facility] Comment on above: Performed By: #### C DP, BMP ####[facility] Boy[address] [facility], [place] [phone] Director: Jelani Liu MD FLUORO FOR SURGICAL PROCEDUR ESon 01-11-2023 FLUORO FOR SURGICAL PROCEDURES Radiology exam is complete. No Radiologist dictation. Please follow up with ordering provider. Final result Normal [facility] Hos[facility] suresh Cult,Urineon 12-24-2022 Cult,Urine Specimen Description .CLEAN CATCH URINE Culture ESCHERICHIA COLI >100,000 CFU/ML This organism is an Extended Spectrum Beta Lactamase (ESBL) Lawyers and resistance to therapy with Penicillins, Cephalosporins and Aztreonam is expected. These organisms generally remain susceptible to Carbapenems. Consider ID Consultation. CONTACT PRECAUTIONS INDICATED. Report Status FINAL 12/23/2022 SUSCEPTIBILITY Organism ESCHERICHIA COLI Method MARC Ampicillin >=32 RESISTANT Cefazolin >=64 RESISTANT Cefazolin sensitivity results can be used to predict the effectiveness of oral cephalosporins (eg. Cephalexin) in uncomplicated Urinary Tract Infections due to E. coli, K. pneumoniae, and P. mirabilis Cefepime 16 RESISTANT Ceftriaxone >=64 RESISTANT ESBL POSITIVE Gentamicin <=1 SUSCEPTIBLE Imipenem <=0.25 SUSCEPTIBLE Levofloxacin >=8 RESISTANT Nitrofurantoin <=16 SUSCEPTIBLE Piperacillin/Tazobactam <=4 RESISTANT Tobramycin <=1 SUSCEPTIBLE Trimethoprim/Sulfa >=320 RESISTANT Amikacin <=2 SUSCEPTIBLE Meropenem <=0.25 SUSCEPTIBLE Susceptible [facility] Comment on above: Performed By: #### U RC ####[facility] Dat[address]67 [place] [address] Lab Director: Jelani Liu [address] [address] Lab Director: Terrance Luevano MD MRSA, DNA, Nasalon MRSA, DNA, Nasal Negative Normal NEG [facility] Comment on above: Result Comment: NEGA TIVE: MRSA DNA not detected by nucleic acid amplification. Results should be used as an adjunct to nosocomial control efforts to identify patients needing enhanced precautions. The test is not intended to identify patients with staphylococcal infections. Results should not be used to guide or monitor treatment for MRSA infections. Performed By: #### M RSA ####[facility] [address] [place] [address] [phone] Director: Jelani Liu [address] [address] Lab Director: Terrance Luevano MD APTTon 12-21-2022 aPTT Coag (Bld) [Time] 27.5 s Normal 23.9-33.8 [facility] Comment on above: Result Comment: IV Heparin Therapy Range: 62.0-94.0 Performed By: #### B MP, PT, PTT, CDP #### [facility] Lab [address] [place] [address] Disability Case Manager: Jelani Liu MD Basic Metabolic Profon 12-21 Anion gap [Moles/Vol] 11 mmol/L Normal 9-17 [facility] Comment on above: Performed By: #### B MP, PT, PTT, CDP #### [facility] [address] [place] [address] Disability Case Manager: Jelani Liu MD BUN/CRE Ratio 12 Normal 9-20 [facility] Comment on above: Performed By: #### B MP, PT, PTT, CDP #### [facility] [address] [place] [address] Disability Case Manager: Jelani Liu MD Calcium [Mass/Vol] 9.1 mg/dL Normal 8.6-10.4 [facility] Comment on above: Performed By: #### B MP, PT, PTT, CDP #### [facility] [address] [facility] [place] [address] Disability Case Manager: Jelani Liu MD Chloride [Moles/Vol] 104 mmol/L Normal 98-107 [facility] Comment on above: Performed By: #### B MP, PT, PTT, CDP #### [facility] [address] [facility] [place] [address] Disability Case Manager: Jelani Liu MD CO2 [Moles/Vol] 24 mmol/L Normal 20-31 [facility] Comment on above: Performed By: #### B MP, PT, PTT, CDP #### [facility] [address] [facility] [place] [address] Disability Case Manager: Jelani Liu MD Creatinine [Mass/Vol] 0.9 mg/dL Normal 0.5-0.9 [facility] Comment on above: Performed By: #### B MP, PT, PTT, CDP #### [facility] Lab [facility] [place] [address] Disability Case Manager: Jelani Liu MD GFR/1.73 sq M.predicted bianca g non-blacks MDRD (S/P/Bld) [Vol rate/Area] mL/min/{1.73_m2} Normal >60 [facility] Comment on above: Result Comment: These results are not intended for use in patients <18 years of age. eGFR results are calculated without a race factor using the 2020 CKD-EPI equation. Careful clinical correlation is recommended, particularly when comparing to results calculated using previous equations. The CKD-EPI equation is less accurate in patients with extremes of muscle mass, extra-renal metabolism of creatine, excessive creatine ingestion, or following therapy that affects renal tubular secretion. Performed By: #### B MP, PT, PTT, CDP #### [facility] [address] [facility] [place] [address] Disability Case Manager: Jelani Liu MD Glucose [Mass/Vol] 93 mg/dL Normal 70-99 [facility] Comment on above: Performed By: #### B MP, PT, PTT, CDP #### [facility] [address] [place] [address]. [place] [address] Disability Case Manager: Jelani Liu MD Potassium [Moles/Vol] 4.1 mmol/L Normal 3.7-5.3 [facility] Comment on above: Performed By: #### B MP, PT, PTT, CDP #### [facility] [address] [place] [address]. [place] [address] Disability Case Manager: Jelani Liu MD Sodium [Moles/Vol] 139 mmol/L Normal 135-144 [facility] Comment on above: Performed By: #### B MP, PT, PTT, CDP #### [facility] Lab [facility] [place] [address] Disability Case Manager: Jelani Liu MD Urea nitrogen [Mass/Vol] 11 mg/dL Normal 8-23 [facility] Comment on above: Performed By: #### B MP, PT, PTT, CDP #### [facility] Lab [facility] [place] [address] Disability Case Manager: Jelani Liu MD CBC with Diffon 12-21-2022 Abs. Basophil 0.09 k/uL Normal 0.00-0.20 [facility] Comment on above: Performed By: #### B MP, PT, PTT, CDP #### [facility] [place] [address] Disability Case Manager: Jelani Liu MD Abs. Eosinophil <0.03 Normal 0.00-0.44 [facility] Comment on above: Performed By: #### B MP, PT, PTT, CDP #### [facility] [address] [place] [address]. [place] [address] Disability Case Manager: Jelani Liu MD Abs.Imm.Granulocyte 0.02 k/uL Normal 0.00-0.30 [facility] Comment on above: Performed By: #### B MP, PT, PTT, CDP #### [facility] [address] [place] [address]. [place] [address] Disability Case Manager: Jelani Liu MD Abs.Neutrophil (Seg) 3.03 k/uL Normal 1.50-8.10 [facility] Comment on above: Performed By: #### B MP, PT, PTT, CDP #### [facility] [address] [place] [address]. [place] [address] Disability Case Manager: Jelani Liu MD Basophils/100 WBC (Bld) 1 % Normal 0-2 [facility] Comment on above: Performed By: #### B MP, PT, PTT, CDP #### [facility] [address] [place] [address] Disability Case Manager: Jelani Liu MD Eosinophils/100 WBC (Bld) 0 % Low 1-4 [facility] Comment on above: Performed By: #### B MP, PT, PTT, CDP #### [facility] [address] [place] [address] Disability Case Manager: Jelani Liu MD Erythrocyte distribution wid th (RBC) [Ratio] 13.1 % Normal 11.8-14.4 [facility] Comment on above: Performed By: #### B MP, PT, PTT, CDP #### [facility] [place] [address] Disability Case Manager: Jelani Liu MD Hematocrit (Bld) [Volume fraction] 45.2 % Normal 3 6.3-47.1 [facility] Comment on above: Performed By: #### B MP, PT, PTT, CDP #### [facility] [address] [place] [address] Disability Case Manager: Jelani Liu MD Hemoglobin (Bld) [Mass/Vol] 14.5 g/dL Normal 11.9-15. 1 [facility] Comment on above: Performed By: #### B MP, PT, PTT, CDP #### [facility] [address] [place] [address] Disability Case Manager: Jelani Liu MD Immature granulocytes/100 WBC (Bld) 0 % Normal 0 [facility] Comment on above: Performed By: #### B MP, PT, PTT, CDP #### [facility] [address] [place] [address] Disability Case Manager: Jelani Liu MD Lymphocytes (Bld) [#/Vol] 3.93 10*3/uL High 1.10-3.7 0 [facility] Comment on above: Performed By: #### B MP, PT, PTT, CDP #### [facility] [address] [place] [address] Disability Case Manager: Jelani Liu MD Lymphocytes/100 WBC (Bld) 50 % High 24-43 [facility] Comment on above: Performed By: #### B MP, PT, PTT, CDP #### [facility] [address] [place] [address] Disability Case Manager: Jelani Liu MD MCH (RBC) [Entitic mass] 30.1 pg Normal 25.2-33.5 [facility] Comment on above: Performed By: #### B MP, PT, PTT, CDP #### [facility] [facility] [place] [address] Disability Case Manager: Jelani Liu MD MCHC (RBC) [Mass/Vol] 32.1 g/dL Normal 28.4-34.8 [facility] Comment on above: Performed By: #### B MP, PT, PTT, CDP #### [facility] [address] [place] [address]. [place] [address] Disability Case Manager: Jelani Liu MD MCV (RBC) [Entitic vol] 93.8 fL Normal 82.6-102.9 [facility] Comment on above: Performed By: #### B MP, PT, PTT, CDP #### [facility] [address] [place] [address]. [place] [address] Disability Case Manager: Jelani Liu MD Monocytes (Bld) [#/Vol] 0.75 10*3/uL Normal 0.10-1.20 [facility] Comment on above: Performed By: #### B MP, PT, PTT, CDP #### [facility] [address] [place] [address]. [place] [address] Disability Case Manager: Jelani Liu MD Monocytes/100 WBC (Bld) 10 % Normal 3-12 [facility] Comment on above: Performed By: #### B MP, PT, PTT, CDP #### [facility] [address] [place], [place] [address]ia [facility] [place] [address] Disability Case Manager: Jelani Liu MD Neutrophil (Seg) 39 % Normal 36-65 [facility] Comment on above: Performed By: #### B MP, PT, PTT, CDP #### [facility] [facility] [place] [address] Disability Case Manager: Jelani Liu MD NRBC Automated 0.0 per 100 WBC Normal 0.0 [facility] Comment on above: Performed By: #### B MP, PT, PTT, CDP #### [facility] [address] [place], [place] [address]shazia [place]ón[place] [address] Disability Case Manager: Jelani Liu MD Platelet mean volume (Bld) [ Entitic vol] 10.0 fL Normal 8.1-13.5 [facility] Comment on above: Performed By: #### B MP, PT, PTT, CDP #### [facility] [address] [place] [address] Disability Case Manager: Jelani Liu MD Platelets (Bld) [#/Vol] 257 10*3/uL Normal 138-453 [facility] Comment on above: Performed By: #### B MP, PT, PTT, CDP #### [facility] [address] [place] [address]. [place] [address] Disability Case Manager: Jelani Liu MD RBC (Bld) [#/Vol] 4.82 10*6/uL Normal 3.95-5.11 [facility] Comment on above: Performed By: #### B MP, PT, PTT, CDP #### [facility] [address] [place] [address] Disability Case Manager: Jelani Liu MD WBC (Bld) [#/Vol] 7.8 10*3/uL Normal 3.5-11.3 [facility] Comment on above: Performed By: #### B MP, PT, PTT, CDP #### [facility] [address] [place] [address] Disability Case Manager: Jelani Liu MD MRSA, DNA, Nasalon 3 Specimen Description .NASAL SWAB Normal [facility] Comment on above: Performed By: #### M RSANO ####[facility] [id number] [place] [address] Lab Director: JOAQUÍN [facility] [id number] [place] [address] Lab Director: Terrance Luevano MD PTon 12-21-2022 INR Coag (PPP) [Relative time] 0.9 {INR} Normal [facility] Comment on above: Result Comment: Therapeutic Range: Moderate Anticoagulant Intensity: INR = 2.0-3.0 High Anticoagulant Intensity: INR = 2.5-3.5 Performed By: #### B MP, PT, PTT, CDP #### [facility] [address] [place] [address] Disability Case Manager: Jelani Liu MD PT Coag (PPP) [Time] 12.1 s Normal 11.5-14.2 [facility] Comment on above: Performed By: #### B MP, PT, PTT, CDP #### [facility] [address] [place] [address] Disability Case Manager: Jelani Liu MD Urinalysis, Routineon 2022 Bilirubin, SemiQt,Ur Negative Normal NEG [facility] Comment on above: Performed By: #### U A ####[facility] [id number] [place], [place] [id number])[id number] Director: Jelani Liu MD Blood, Urine Negative Normal NEG [facility] Comment on above: Performed By: #### U A ####[facility] [id number] [place] [address] Lab Director: Jelani Liu MD Clarity (U) Clear Normal CLEAR [facility] Comment on above: Performed By: #### U A ####[facility] [id number] [facility] [address] Lab Director: Jelani Liu MD Color (U) Yellow Normal YEL [facility] Comment on above: Performed By: #### U A ####[facility] [id number] [facility] [place] [address] Lab Director: Jelani Liu MD Comment Microscopic exam not performed based on chemical results unless requested in Normal [facility] Comment on above: Result Comment: orig inal order. Performed By: #### U A ####[facility] [id number] [place] [address] Lab Director: Jelani Liu MD Glucose Ql (U) Negative Normal NEG [facility] Comment on above: Performed By: #### U A ####[facility] [id number] [place] [address] Lab Director: Jelani Liu MD Ketones Ql (U) Negative Normal NEG [facility] Comment on above: Performed By: #### U A ####[facility] Wky[address] [facility] [place] [address] Lab Director: Jelani Liu MD Leukocyte esterase Test strip Ql (U) Negative Normal NEG [facility] Comment on above: Performed By: #### U A ####[facility] Ghk6681 [place] [address] Lab Director: Jelani Liu MD Nitrite,Ur Negative Normal NEG [facility] Comment on above: Performed By: #### U A ####[facility] [id number] [facility] [place] [address] Lab Director: Jelani Liu MD PH,Ur 5.5 Normal 5.0-8.0 [facility] Comment on above: Performed By: #### U A ####[facility] [id number] [place] [address] Lab Director: Jelani Liu MD Protein Ql (U) Negative Normal NEG [facility] Comment on above: Performed By: #### U A ####[facility] [id number] [address] Lab Director: Jelani Liu MD Spec. [place],Ur 1.015 Normal 1.005-1.030 [facility] Comment on above: Performed By: #### U A ####[facility] [id number] [facility] [place] [address] Lab Director: Jelani Liu MD Urobilinogen,Ur Normal Normal 0.0-1.0 [facility] Comment on above: Performed By: #### U A ####[facility] [address] [facility] [place] [address] lab Director: Jelani Liu MD Consent for Treatmenton 09-28 Consent for Treatment [id number]:127 Normal [facility] Discharge Instructionson Discharge Instructions [id number]:127 Normal [facility] ED Clinical Summaryon 2022 ED Clinical Summary (Inserted Image. Tierra ble to display) [address] [address] ED Clinical Summary Person Information Name: JESSICA FRERERA/[facility] Age: 67 Years : 1955 Sex: Female Language: Indian PCP: Ricardo Hooper MD Marital Status: Visit Id: Visit Reason: Facial pain; Ear pain; EAR AND JAW PAIN Speciality: Acuity: 5 Enc Type: Emergency Med Service: Emergency Arrival: 10/10/2022 14:53:25 Discharge: 10/10/2022 16:00:17 LOS: 000 01:07 Checkin: 10/10/2022 14:53:25 Checkout: 10/10/2022 16:00:17 Dispo Type: Home (Routine DC) EVENTS: Event Name Event Status Request Date/Time Start Date/Time Complete Date/Time Arrive Complete 10/10/2022 14:53:25 10/10/2022 14:53:25 10/10/2022 14:53:25 Document Home Meds Request 10/10/2022 14:53:25 Triage Complete 10/10/2022 14:53:25 10/10/2022 15:25:12 10/10/2022 15:25:12 Registration Complete 10/10/2022 15:07:44 10/10/2022 15:07:44 10/10/2022 15:07:44 Reg Complete Request 10/10/2022 15:07:44 Bed Assign Complete 10/10/2022 15:25:35 10/10/2022 15:25:35 10/10/2022 15:25:35 Dr Exam Complete 10/10/2022 15:25:36 10/10/2022 15:28:02 10/10/2022 15:28:02 RN Exam Complete 10/10/2022 15:25:36 10/10/2022 15:35:04 10/10/2022 15:35:04 Registration Complete 10/10/2022 15:28:02 10/10/2022 16:00:02 10/10/2022 16:00:02 Dr Exam Complete 10/10/2022 15:34:45 10/10/2022 15:34:45 10/10/2022 15:34:45 Discharge Complete 10/10/2022 15:48:16 10/10/2022 16:00:24 10/10/2022 16:00:24 Reg Bed Request Complete 10/10/2022 16:00:02 10/10/2022 16:00:02 10/10/2022 16:00:02 Transfer Complete 10/10/2022 16:00:24 10/10/2022 16:00:24 10/10/2022 16:00:24 ADDRESS: [address] [place] [address] [address] [phone] PHYS DOC NOTES: MEDICAL INFORMATION: Prescriptions Given: New Medications Printed Prescriptions cefdinir (cefdinir 300 mg Cap) 1 Capsules By Mouth every 12 hours for 7 Days. Refills: 0. predniSONE (predniSONE 20 mg Tab) 3 Tablets By Mouth every day for 7 Days. Refills: 0. Medications to Continue with No Changes Other Medications esomeprazole (Nexium 40 mg Cap-EC) By Mouth every day. estradiol (Estrace) 0.01 Percent. ibuprofen 800 Milligram By Mouth as needed as needed for pain. lisinopril 20 Milligram By Mouth every day. multivitamin with minerals (One A Day Women's Complete) By Mouth every day. senna (Senokot) 8.6 Milligram By Mouth every day. trazodone (traZODONE 100 mg Tab) 1 Tablets By Mouth once a day (at bedtime). PATIENT EDUCATION INFORMATION: Instructions: Otitis Media With Effusion, Adult Follow up: With: Address: When: Ricardo Hooper [address] [place] [address], [place] [address] [facility] (1) In 3 days 10/13/2022 Comments: Follow-up with your primary care provider in 3 to 5 days. If symptoms worsen, do not improve, or new symptoms arise please report back to emergency department for further evaluation. DIAGNOSIS: Left serous otitis media Normal [facility] ED Note-Physicianon 10-11-19 ED Note-Physician Basic Information Time Seen: Bo SAWANT, Thony Hicks 10/10/2022 15:28 Chief Complaint Pt had sinus infection beginning of September was placed on abx and felt better. Abx done on Wednesday, Wednesday started wtih L ear pain. Told to take antihistamines OTC. Saw [place] ER and told possible shingles on top of the antihistamines. States still having L History of Present Illness 67-year-old fe with a chief complaint of male reports to the emergency department left ear pain. He reports that she just finished up antibiotic, but on Wednesday, she started with left ear pain. Reports that she was told to take wnzp-xcc-qvjiisi antihistamine and other medications, to help with her symptoms, but this has not been helping. She also went to [place] emergency department, and was told that she possibly has shingles on top of the antihistamines. Reports that she has been taking acyclovir for this. Reports that she still having pain in her ear that comes and goes into her face as well. States that she has not any fevers or chills. Reports that she just drying out when she takes antihistamines, and wanted to see if she has ear infection again. She denies any fevers chills nausea vomiting. Denies any cough. Review of Systems A 10 point review of systems is negative except as noted above. Medical and Surgical History: Reviewed and noted Social history: Lives at home Family History: Reviewed. Tobacco: Denies Physical Exam Vitals & Measurements T: 36.6 ?C(Oral) HR: 89(Peripheral) RR: 16 BP: 145/92 SpO2: 99% HT: 162 cm WT: 107 kg BMI: 40.77 General: The patient appears well and in no apparent distress. Patient is resting comfortably in chair. Afebrile Skin: Warm, dry, no pallor noted. Head: Normocephalic, atraumatic Neck: No JVD. No cervical lymph node adenopathy. Eye: PERRLA, EOMI ENT: Moist mucus membranes. Pharynx pink moist no erythema or exudates. The left TM is intact with no erythema or bulging, but there is fluid behind the eardrum. Right TM is clear and intact with no erythema or bulging. Cardiovascular: Regular rate normal peripheral perfusion. Radial pulses +2 bilaterally Respiratory: No respiratory distress no accessory muscle use no obvious audible wheezing. Lung sounds clear auscultation Chest Wall: no deformity Musculoskeletal: normal ROM, no deformity, no swelling GI: No obvious distention Neurological: A&O moves all extremities equal strength and symmetry Psychiatric: Cooperative and appropriate Medical Decision Making MEDICAL DECISION MAKING Number and Complexity of Problems Differential Diagnosis: [] [facility] Data External documents reviewed: [] My EKG interpretation: [] My CT interpretation: [] My X-ray interpretation: [] My Ultrasound interpretation: [] Decision rules/scores evaluated: [] Discussed with: [] Treatment and Disposition ED Course: 67-year-old female reports to the emergency department with a chief complaint of left-sided ear pain and some left-sided facial pain. Reports has been going on since Wednesday. Reports that she has been taking antihistamine medications, as well as antiviral medications for shingles. She denies any rashes that have appeared on her face. Reports that she is worried that she may have a ear infection. States that she just wants to make sure everything is okay, she has a recent trip to [place]. On physical exam the patient, she does have what appears to be left serous otitis media. There is no signs of infection with this, but the patient is very concerned because of her trip to [facility]. No other signs are positive on my physical exam. Rest of physical exam is benign. She is afebrile. Based on her symptoms, we will start her on a steroid, I discussed the importance of using the antihistamines as well to help with her symptoms. Discussed using Flonase, which she states that she is currently taking as well. Due to the patient's concerns, she did want an antibiotic, so I did prescribe cefdinir for her. Discussed return precautions. Follow-up with your primary care provider in 3 to 5 days. If symptoms worsen, do not improve, or new symptoms arise please report back to emergency department for further evaluation. The patient was understanding and agreeable to plan moving forward. Shared decision making: [] Code status: [] Assessment/Plan Left serous otitis media (H65.92: Unspecified nonsuppurative otitis media, left ear) Orders: cefdinir, 300 mg = 1 cap(s), Oral, q12hr, X 7 day(s), # 14 cap(s), Refills(s) 0 predniSONE, 60 mg = 3 tab(s), Oral, Daily, X 7 day(s), # 21 tab(s), Refills(s) 0 Disposition Plan Patient Discharge Condition Stable Discharge Disposition To home Discharge Prescription List Prescriptions cefdinir 300 mg Cap, 300 mg= 1 cap(s), Oral, q12hr predniSONE 20 mg Tab, 60 mg= 3 tab(s), Oral, Daily Follow-up With When Contact Information Ricardo Hooper In 3 days 10/13/2022 EDT [address] [facility] [place] [address] [place] [address]- [phone] (more content not included)... Normal [facility] Comment on above: Result Comment: Elec tronically Signed By: Thony Soriano PA-C\.br\Date and Time Signed: 10/10/22 16:01 EDT\.br\Electronically Co-Signed By: Rocael Wayne DO\.br\Date and Time Co-Signed: 10/10/22 18:26 EDT ED Patient Education Noteon 10-10-2022 ED Patient Education Note ENT Otitis Media With Effusion, Adult Otitis media with effusion (OME) is inflammation and fluid (effusion) in the middle ear without having an ear infection. The middle ear is the space behind the eardrum. The middle ear is connected to the back of the throat by a narrow tube (eustachian tube). Normally the eustachian tube drains fluid out of the middle ear. A swollen eustachian tube can become blocked and cause fluid to collect in the middle ear. OME often goes away without treatment. Sometimes OME can lead to hearing problems and recurrent acute ear infections (acute otitis media). These conditions may require treatment. What are the causes? OME is caused by a blocked eustachian tube. This can result from: ? Allergies. ? Upper respiratory infections. ? Enlarged adenoids. The adenoids are areas of soft tissue located high in the back of the throat, behind the nose and the roof of the mouth. They are part of the body's natural defense system (immune system). ? Rapid changes in pressure, like when an airplane is descending or during scuba diving. In some cases, the cause of this condition is not known. What are the signs or symptoms? Common symptoms of this condition include: ? A feeling of fullness in your ear. ? Decreased hearing in the affected ear. ? Fluid draining into the ear canal. ? Pain in the ear. In some cases, there are no symptoms. How is this diagnosed? A health care provider can diagnose OME based on signs and symptoms of the condition. Your provider will also do a physical exam to check for fluid behind the eardrum. During the exam, your health care provider will use an instrument called an otoscope to look in your ear. Your health care provider may do other tests, such as: ? A hearing test. ? A tympanogram. This is a test that shows how well the eardrum moves in response to air pressure in the ear canal. It provides a graph for your health care provider to review. ? A pneumatic otoscopy. This is a test to check how your eardrum moves in response to changes in pressure. It is done by squeezing a small amount of air into the ear. How is this treated? Treatment for OME depends on the cause of the condition and the severity of symptoms. The first step is often waiting to see if the fluid drains on its own in a few weeks. Home care treatment may include: ? Qqge-wkh-pnbwpjo pain relievers. ? A warm, moist cloth placed over the ear. Severe cases may require a procedure to insert tubes in the ears (tympanostomy tubes) to drain the fluid. Follow these instructions at home: ? Take qsgp-cup-cfcgwbl and prescription medicines only as told by your health care provider. ? Keep all follow-up visits. Contact a health care provider if: ? You have pain that gets worse. ? Hearing in your affected ear gets worse. ? You have fluid draining from your ear canal. ? You have dizziness. ? You develop a fever. Get help right away if: ? You develop a severe headache. ? You completely lose hearing in the affected ear. ? You have bleeding from your ear canal. ? You have sudden and severe pain in your ear. These symptoms may represent a serious problem that is an emergency. Do not wait to see if the symptoms will go away. Get medical help right away. Call your local emergency services (911 in the [place] Do not drive yourself to the hospital. Summary ? Otitis media with effusion (OME) is inflammation and fluid (effusion) in the middle ear without having an ear infection. ? A swollen eustachian tube can become blocked and cause fluid to collect in the middle ear. ? Treatment for OME depends on the cause of the condition and the severity of symptoms. ? Many times, treatment is not needed because the fluid drains on its own in a few weeks. ? Sometimes OME can lead to hearing problems and recurrent acute ear infections (acute otitis media), which may require treatment. This information is not intended to replace advice given to you by your health care provider. Make sure you discuss any questions you have with your health care provider. Document Revised: 09/11/2021 Document Reviewed: 09/11/2021 Elsevier Patient Education ? 2022 [employer] Normal [facility] ED Patient Summaryon 023 ED Patient Summary [address] [address] Patient Discharge Instructions Person Information Name: JESSICA FERRERA Age: 67 Years Arrival Date: 10/10/2022 14:53:25 Discharge Diagnosis: Left serous otitis media Primary Care Physician: Ricardo Hooper MD Provider Information Primary Provider: Rocael Wayne DO Advanced Control Room Supervisor:None The exam and treatment you received in the Emergency Department were for an urgent problem and are not intended as complete care. It is important that you follow up with a doctor, nurse practitioner, or physician?s hearing and speech assistant for ongoing care. If your symptoms become worse or you do not improve as expected and you are unable to reach your usual health care provider, you should return to the Emergency Department. We are available 24 hours a day. JESSICA FERRERA has been given the following list of patient education materials, prescriptions and follow-up instructions: Follow-up Instructions: With: Address: When: Ricardo Hooper [address] [place] [address], [facility] [place] [phone] Business (1) In 3 days 10/13/2022 Comments: Follow-up with your primary care provider in 3 to 5 days. If symptoms worsen, do not improve, or new symptoms arise please report back to emergency department for further evaluation. In the event that this physician does not participate in your insurance network, please consult with your insurance company to find a nearby participating provider. Patient Education Materials: Otitis Media With Effusion, Adult A MESSAGE TO ALL PATIENTS REGARDING OPIOIDS PRESCRIPTION OPIOIDS: WHAT YOU NEED TO KNOW Prescription opioids can be used to help relieve kmvaxvhc-co-hzsqxm pain and are often prescribed following a surgery or injury, or for certain health conditions. These medications can be an important part of the treatment but also come with serious risks. It is important to work with your healthcare provider to make sure you are getting the safest, most effective care. WHAT ARE THE RISKS AND SIDE EFFECTS OF OPIOID USE? Prescription opioids carry serious risks of addiction and overdose, especially with prolonged use. An opioid overdose, often marked by slowed breathing, can cause sudden . The use of prescription opioids can have a number of side effects as well, even when taken as directed: ? Tolerance?meaning you might need to take more of the medication for the same pain relief ? Physical dependence?meaning you have symptoms of withdrawal when a medication is stopped ? Increased sensitivity to pain ? Constipation ? Nausea, vomiting, and dry mouth ? Sleepiness and dizziness ? Confusion ? Depression ? Low levels of testosterone that can result in lower sex drive, energy, and strength ? Itching and sweating RISKS ARE GREATER WITH: ? History of drug misuse, substance use disorder, or overdose ? Mental health conditions (such as depression or anxiety) ? Sleep apnea ? Older age (65 years and older) ? Avoid alcohol while taking prescription opioids. Also, unless specifically advised by your health care provider, medications to avoid include: ? Benzodiazepines (such as Xanax or Valium) ? Muscle relaxants (such as Soma or Flexeril) ? Hypnotics (such as Ambien or Lunesta) ? Other prescription opioids KNOW YOUR OPTIONS Talk to your health care provider about ways to manage your pain that don?t involve prescription opioids. Some of these options may actually work better and have fewer risks and side effects. Options may include: ? Pain relievers such as acetaminophen, ibuprofen, and naproxen ? Some medication that are also used for depression or seizures ? Physical therapy and exercise ? Cognitive behavioral therapy, a psychological, goal-directed approach, in which patients learn how to modify physical, behavioral, and emotional triggers of pain and stress. IF YOU ARE PRESCRIBED OPIOIDS FOR PAIN: ? Never take opioids in greater amounts or more often than prescribed. ? Follow up with your primary health care provider. o Work together to create a plan on how to manage your pain. o Talk about ways to help manage your pain that don?t involve prescription opioids. o Talk about any and all concerns and side effects. ? Help prevent misuse and abuse o Never sell or share prescription opioids. o Never use another person?s prescription opioids. ? Store prescription opioids in a secure place and out of reach of others (this may include visitors, children, friends, and family). ? Safely dispose of unused prescription opioids: Find your community drug take-back program or your pharmacy mail-back program, or flush them down the toilet, following guidance from the Food and Drug Administration (www.fda.gov/Drugs/ResourcesForYou). ? Visit www.cdc.gov/drugoverdose to learn about the risks of opioids abuse and (more content not included)... Normal [facility] CBC W Auto Differential pane l (Bld)on 10-07-2022 Anisocytosis Ql (Bld) Present Normal [facility] Comment on above: Order Comment: Speci men Type: BLOOD SPECIMENOrdering Facility: [facility] Address: [address] [place] [address] Performed By: #### 5 7021-8 ####[facility] LABCLIA [id number] [address] LABCLIA [id number] [place] [address] [place] Basophils (Bld) [#/Vol] 0.09 10*3/uL Normal <0.11 [facility] Comment on above: Order Comment: Speci men Type: BLOOD SPECIMENOrdering Facility: [facility] Address: [address] [place] [address] Performed By: #### 5 7021-8 ####[facility] LABCLIA [id number] [address] LABCLIA [id number] [place] [address] [place] Basophils/100 WBC (Bld) 0.7 % Normal [facility] Comment on above: Order Comment: Speci men Type: BLOOD SPECIMENOrdering Facility: [facility] Address: [address] [place] [address] Performed By: #### 5 7021-8 ####[facility] LABCLIA [id number] [address] LABCLIA [id number] [place] [address] [place] Differential cell count method Nom (Bld) Auto Normal [facility] Comment on above: Order Comment: Speci men Type: BLOOD SPECIMENOrdering Facility: [facility] Address: [address] [place], [place] [address] Performed By: #### 5 7021-8 ####[facility] LABCLIA [id number] [address] LABCLIA [id number] [place] [address] [place] Eosinophils (Bld) [#/Vol] 10*3/uL Normal <0.46 [facility] Comment on above: Order Comment: Speci men Type: BLOOD SPECIMENOrdering Facility: [facility] Address: [address] [place] [address] Performed By: #### 5 7021-8 ####[facility] LABCLIA [id number] [address] LABCLIA [id number] [place] [address] [place] Eosinophils/100 WBC (Bld) 0.1 % Normal [facility] Comment on above: Order Comment: Speci men Type: BLOOD SPECIMENOrdering Facility: [facility] Address: [address] [place] [address] Performed By: #### 5 7021-8 ####[facility] LABCLIA [id number] [address] LABCLIA [id number] [place] [address] [place] Erythrocyte distribution wid th (RBC) [Ratio] 15.3 % High 11.5-15.0 [facility] Comment on above: Order Comment: Speci men Type: BLOOD SPECIMENOrdering Facility: [facility] Address: [address] [place] [address] Performed By: #### 5 7021-8 ####[facility] LABCLIA [id number] [address] LABCLIA [id number] [place] [address] [place] Hematocrit (Bld) [Volume fraction] 45.1 % Normal 3 6.0-46.0 [facility] Comment on above: Order Comment: Speci men Type: BLOOD SPECIMENOrdering Facility: [facility] Address: [address] [place] [address] Performed By: #### 5 7021-8 ####[facility] LABCLIA [id number] [address] LABCLIA [id number] [place] [address] [place] Hemoglobin (Bld) [Mass/Vol] 14.4 g/dL Normal 11.5-15. 5 [facility] Comment on above: Order Comment: Speci men Type: BLOOD SPECIMENOrdering Facility: [facility] Address: [address] [place] [address] Performed By: #### 5 7021-8 ####[facility] LABCLIA [id number] [address] LABCLIA [id number] [place] [address] [place] Immature granulocytes (Bld) [#/Vol] 0.09 10*3/uL Normal <0.10 [facility] Comment on above: Order Comment: Speci men Type: BLOOD SPECIMENOrdering Facility: [facility] Address: [address] [place] [address] Performed By: #### 5 7021-8 ####[facility] LABCLIA [id number] [place] [id number] LABCLIA [id number] [place] [address] [place] Immature granulocytes/100 WBC (Bld) 0.7 % Normal [facility] Comment on above: Order Comment: Speci men Type: BLOOD SPECIMENOrdering Facility: [facility] Address: [address] [place] [address] Performed By: #### 5 7021-8 ####[facility] LABCLIA [id number] [address] LABCLIA [id number] [place] [address] [place] Lymphocytes (Bld) [#/Vol] 5.07 10*3/uL High 1.00-4.0 0 [facility] Comment on above: Order Comment: Speci men Type: BLOOD SPECIMENOrdering Facility: [facility] Address: [address] [place] [address] Performed By: #### 5 7021-8 ####[facility] LABCLIA [id number] [address] LABCLIA [id number] [place] [address] [place] Lymphocytes/100 WBC (Bld) 39.0 % Normal [facility] Comment on above: Order Comment: Speci men Type: BLOOD SPECIMENOrdering Facility: [facility] Address: [address] [place], [place] [address] Performed By: #### 5 7021-8 ####[facility] LABCLIA [id number] [address] LABCLIA [id number] [place] [address] [place] MCH (RBC) [Entitic mass] 28.6 pg Normal 26.0-34.0 [facility] Comment on above: Order Comment: Speci men Type: BLOOD SPECIMENOrdering Facility: [facility] Address: [address] [place] [address] Performed By: #### 5 7021-8 ####[facility] LABCLIA [id number] [address] LABCLIA [id number] [place] [address] [place] MCHC (RBC) [Mass/Vol] 31.9 g/dL Normal 30.5-36.0 [facility] Comment on above: Order Comment: Speci men Type: BLOOD SPECIMENOrdering Facility: [facility] Address: [address] [place] [address] Performed By: #### 5 7021-8 ####[facility] LABCLIA [id number] [address] LABCLIA [id number] [place] [address] [place] MCV (RBC) [Entitic vol] 89.5 fL Normal 80.0-100.0 [facility] Comment on above: Order Comment: Speci men Type: BLOOD SPECIMENOrdering Facility: [facility] Address: [address] [place] [address] Performed By: #### 5 7021-8 ####[facility] LABCLIA [id number] [address] LABCLIA [id number] [place] [address] [place] Monocytes (Bld) [#/Vol] 1.10 10*3/uL High <0.87 [facility] Comment on above: Order Comment: Speci men Type: BLOOD SPECIMENOrdering Facility: [facility] Address: [address] [place] [address] Performed By: #### 5 7021-8 ####[facility] LABCLIA [id number] [place] [id number] LABCLIA [id number] [place] [address] [place] Monocytes/100 WBC (Bld) 8.5 % Normal [facility] Comment on above: Order Comment: Speci men Type: BLOOD SPECIMENOrdering Facility: [facility] Address: [address] [place] [address] Performed By: #### 5 7021-8 ####[facility] LABCLIA [id number] [address] LABCLIA [id number] [place] [address] [place] Neutrophils (Bld) [#/Vol] 6.65 10*3/uL Normal 1.45-7.5 0 [facility] Comment on above: Order Comment: Speci men Type: BLOOD SPECIMENOrdering Facility: [facility] Address: [address] [place], [place] [address] Performed By: #### 5 7021-8 ####[facility] LABCLIA [id number] [address] LABCLIA [id number] [place] [address] [place] Neutrophils/100 WBC (Bld) 51.0 % Normal [facility] Comment on above: Order Comment: Speci men Type: BLOOD SPECIMENOrdering Facility: [facility] Address: [address] [place], [place] [address] Performed By: #### 5 7021-8 ####[facility] LABCLIA [id number] [address] LABCLIA [id number] [place] [address] [place] Nucleated RBC (Bld) [#/Vol] 10*3/uL Normal <0.01 [facility] Comment on above: Order Comment: Speci men Type: BLOOD SPECIMENOrdering Facility: [facility] Address: [address] [place] [address] Performed By: #### 5 7021-8 ####[facility] LABCLIA [id number] [address] LABCLIA [id number] [place] [address] [place] Nucleated RBC/100 WBC (Bld) [Ratio] 0.0 /100 WBC Normal [facility] Comment on above: Order Comment: Speci men Type: BLOOD SPECIMENOrdering Facility: [facility] Address: [address] [place] [address] Performed By: #### 5 7021-8 ####[facility] LABCLIA [id number] [address] LABCLIA [id number] [place] [address] [place] Ovalocytes LM Ql (Bld) Few Normal [facility] Comment on above: Order Comment: Speci men Type: BLOOD SPECIMENOrdering Facility: [facility] Address: [address] [place] [address] Performed By: #### 5 7021-8 ####[facility] LABCLIA [id number] [address] LABCLIA [id number] [place] [address] [place] Platelet mean volume (Bld) [ Entitic vol] 9.5 fL Normal 9.0-12.7 [facility] Comment on above: Order Comment: Speci men Type: BLOOD SPECIMENOrdering Facility: [facility] Address: [address] [place] [address] Performed By: #### 5 7021-8 ####[facility] LABCLIA [id number] [address] [facility] LABCLIA [id number] [place] [address] [place] Platelets (Bld) [#/Vol] 307 10*3/uL Normal 150-400 [facility] Comment on above: Order Comment: Speci men Type: BLOOD SPECIMENOrdering Facility: [facility] Address: [address] [place] [address] Performed By: #### 5 7021-8 ####[facility] LABCLIA [id number] [address] LABCLIA [id number] [place] [address] [place] Platelets Estimate (Bld) [#/Vol] Adequate Normal [facility] Comment on above: Order Comment: Speci men Type: BLOOD SPECIMENOrdering Facility: [facility] Address: [address] [place], [place] [address] Performed By: #### 5 7021-8 ####[facility] LABCLIA [id number] [address] LABCLIA [id number] [place] [address] [place] RBC (Bld) [#/Vol] 5.04 10*6/uL Normal 3.90-5.20 [facility] Comment on above: Order Comment: Speci men Type: BLOOD SPECIMENOrdering Facility: [facility] Address: [address] [place] [address] Performed By: #### 5 7021-8 ####[facility] LABCLIA [id number] [address] LABCLIA [id number] [place] [address] [place] RED CELL MORPH Reviewed: see result s of individual morphologies Normal [facility] Comment on above: Order Comment: Speci men Type: BLOOD SPECIMENOrdering Facility: [facility] Address: [facility] [place] [address] Performed By: #### 5 7021-8 ####[facility] LABCLIA [id number] [place], [place] [address]SKSDBACQMM[facility] LABCLIA [id number] [place] [address] [place] WBC (Bld) [#/Vol] 13.01 10*3/uL High 3.70-11.00 [facility] Comment on above: Order Comment: Speci men Type: BLOOD SPECIMENOrdering Facility: [facility] Address: [address] [facility] [place] [id number] Performed By: #### 5 7021-8 ####[facility] LABCLIA [id number] [place], [place] [address]BXCZYISBQMERCER [facility] LABCLIA [id number] [address] OF [place] CNOVSPon 10-07-2022 CNOVSP Visit (SP) Office (H EMASA) JESSICA FERRERA ([id number]) 1955 F Date Time Provider Department 10/07/22 10:30 AM JOSE BRYANT During your visit today, we recorded the following information about you: Temperature Pulse Respiration Blood pressure 97.4 degrees 83/minute 16/minute 148/85 Weight Height 108.4 kg 1.626 m Desiree Connors MA 10/07/2022 10:11 AM Signed Patient is going to physical therapy for back and head, her head is better. NORMAN Little MD 10/07/2022 10:43 AM Signed NAME: Jessica Ferrera CLINIC NO.: [id number] DATE OF SERVICE: June 10, 2022 (Andra) Some elements in this clinic note that are critical to medical decision making have been carefully reviewed and included from a prior clinic note dated: April 09, 2022 (Andra) CHIEF COMPLAINT: followup for anemia ASSESSMENT: (D50.8) Iron deficiency anemia secondary to inadequate dietary iron intake (primary encounter diagnosis) (D69.6) Thrombocytopenia (HCC) (R91.8) Lung nodules Iron deficiency With anemia - improving. Responding to oral iron replacement ferrous sulfate 325 mg either to be taken twice a day or once every other day. Now at Hgb of 12.2 g/dL Pulmonary nodule Will continue yearly screening CT of the chest PLAN: RTC in 6 months labs and scans 1 week before Hold oral Iron while in [place] ( for 3 weeks) CT chest in 6 months with labs also. PULMONARY nodule is stable - can reassess in 6 months. 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 We discussed the potential benefits of sending off a sample to complete targeted sequencing (NGS) for 56 commonly mutated genes in myeloid malignancies, primarily, the identification of diagnostic and prognostic markers, as well as potential therapeutic targets. After this discussion, Ms. Ferrera verbally agreed to testing under IRB 5024. she signed consent for IRB 5024, and we will have her stop by at the lab to leave a sample. Results are expected in 10 to 15 business days. This does not appear to be a reactive process. However, she is undergoing workup of enlarged lymph nodes that may be related. Will continue with observation at this time, and follow up on NGS results. I spent 60 minutes in the visit, with more than 50% of the total [id number] time of the visit in counseling / coordination of care. Yo Morse MD, MS [employer] Hematology and Medical Oncology [address] [place] [address], [place] [address] Labs and Imaging Reviewed outside records provided prior to this visit and those in [facility]. as diagnosed by Dr. Morse [facility]. No evidence of a paraprotein. Negative hepatitis antibodies. No sign of acute viral infection. Inflammatory serologic indicators are negative. Normal LDH. 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 B-12, folate adequate. subacute platelet drop from 263,000 in April 2017 down to the 50-70,000 range in April 2018, CT chest abdomen and pelvis in early 2018 without any obvious neoplastic disease. Some small mediastinal adenopathy which is not particularly concerning. Monitoring for now. HPI: Updated Visit, October 07, 2022: Leaving for [place] next week. Has all of her shots and prophylaxis for malaria. Anemia corrected on oral iron therapy. Doing well despite back pain which is chronic. Also recovering from recent sinus infection. Updated Visit, June 10, 2022: Jessica returns and is doing well. Improved anemia on oral iron. Thrombocytopenia and WBC's normal. Will continue annual CT for nodules. Updated Visit, April 09, 2022: Jessica returns - we talked about the loss of her mother. Her back is better after surgery for lumbar stenosis. Will get labs today. Scan has some inflammatory changes on her CT chest but no changes in nodules. Labs pending today. Updated Visit, July 10, 2021: Jessica is 65 yo and returns in follow up for ICUS - labs are pretty good and remain stable. CT in 12/2020 with stable nodule that will need re-evaluated annually. She has a lot of stress surrounding her mother and her son . We talked about her mental / emotional state and offered support which she turned down for now but will let me know. (more content not included)... Normal [facility] Comprehensive metabolic 2000 panelon 10-07-2022 Albumin [Mass/Vol] 4.4 g/dL Normal 3.9-4.9 [facility] Comment on above: Order Comment: Speci men Type: BLOOD SPECIMENOrdering Facility: [facility] Address: [address] [place] [address] Performed By: #### 2 4323-8 ####[facility] LABCLIA [id number] [place] [address] ALP [Catalytic activity/Vol] 95 U/L Normal 34-123 [facility] Comment on above: Order Comment: Speci men Type: BLOOD SPECIMENOrdering Facility: [facility] Address: [address] [place] [address] Performed By: #### 2 4323-8 ####[facility] LABCLIA [id number] [place] [address] ALT [Catalytic activity/Vol] 17 U/L Normal 7-38 [facility] Comment on above: Order Comment: Speci men Type: BLOOD SPECIMENOrdering Facility: [facility] Address: [address] [place] [address] Performed By: #### 2 4323-8 ####[facility] LABCLIA [id number] [place] [address] Anion gap [Moles/Vol] 11 mmol/L Normal 9-18 [facility] Comment on above: Order Comment: Speci men Type: BLOOD SPECIMENOrdering Facility: [facility] Address: [address] [place] [address] Performed By: #### 2 4323-8 ####[facility] LABCLIA [id number] [place] [address] AST [Catalytic activity/Vol] 15 U/L Normal 13-35 [facility] Comment on above: Order Comment: Speci men Type: BLOOD SPECIMENOrdering Facility: [facility] Address: [address] [place] [address] Performed By: #### 2 4323-8 ####[facility] LABCLIA [id number] [place] [address] Bilirubin [Mass/Vol] 0.3 mg/dL Normal 0.2-1.3 [facility] Comment on above: Order Comment: Speci men Type: BLOOD SPECIMENOrdering Facility: [facility] Address: [address] [place] [address] Performed By: #### 2 4323-8 ####[facility] LABCLIA [id number] [place] [address] Calcium [Mass/Vol] 9.4 mg/dL Normal 8.5-10.2 [facility] Comment on above: Order Comment: Speci men Type: BLOOD SPECIMENOrdering Facility: [facility] Address: [address] [place] [address] Performed By: #### 2 4323-8 ####[facility] LABCLIA [id number] [place] [address] Chloride [Moles/Vol] 102 mmol/L Normal 97-105 [facility] Comment on above: Order Comment: Speci men Type: BLOOD SPECIMENOrdering Facility: [facility] Address: [address] [place] [address] Performed By: #### 2 4323-8 ####[facility] LABCLIA [id number] [place] [address] CO2 [Moles/Vol] 27 mmol/L Normal 22-30 [facility] Comment on above: Order Comment: Speci men Type: BLOOD SPECIMENOrdering Facility: [facility] Address: [address] [place] [address] Performed By: #### 2 4323-8 ####[facility] LABCLIA [id number] [place] [address] Creatinine [Mass/Vol] 0.95 mg/dL Normal 0.58-0.96 [facility] Comment on above: Order Comment: Rocio shaffer Type: BLOOD SPECIMENOrdering Facility: [facility] Address: [address] [place] [address] Performed By: #### 2 4323-8 ####[facility] LABCLIA [id number] [place] [address] ESTIMATED GLOMERULAR FILTRATION RATE 66 mL/min/1.73m??? Normal >=60 [facility] Comment on above: Order Comment: Rocio shaffer Type: BLOOD SPECIMENOrdering Facility: [facility] Address: [address] [place] [address] Result Comment: Abigail mated Glomerular Filtration Rate (eGFR) is calculated using the 2020 CKD-EPI creatinine equation. This equation utilizes serum creatinine, sex, and age as parameters. The creatinine assay has traceable calibration to isotope dilution-mass spectrometry. Refer to KDIGO guidelines for clinical interpretation. In patients with unstable renal function, e.g. those with acute kidney injury, the eGFR may not accurately reflect actual GFR. Performed By: #### 2 4323-8 ####[facility] LABCLIA [id number] [place] [address] Glucose [Mass/Vol] 105 mg/dL High 74-99 [facility] Comment on above: Order Comment: Rocio edmund Type: BLOOD SPECIMENOrdering Facility: [facility] Address: [address] [place] [address] Result Comment: The [place] Diabetes Association (ADA) provides guidance for cutoff values for fasting glucose and random glucose. The ADA defines fasting as no caloric intake for at least 8 hours. Fasting plasma glucose results between 100 to 125 mg/dL indicate increased risk for diabetes (prediabetes). Fasting plasma glucose results greater than or equal to 126 mg/dL meet the criteria for diagnosis of diabetes. In the absence of unequivocal hyperglycemia, results should be confirmed by repeat testing. In a patient with classic symptoms of hyperglycemia or hyperglycemic crisis, random plasma glucose results greater than or equal to 200 mg/dL meet the criteria for diagnosis of diabetes. Reference: Standards of Medical Care in Diabetes 2016, [place] [employer] Association. Diabetes Care. 2016.39(Suppl 1). Performed By: #### 2 4323-8 ####[facility] LABCLIA [id number] [place] [address] Potassium [Moles/Vol] 3.9 mmol/L Normal 3.7-5.1 [facility] Comment on above: Order Comment: Speci men Type: BLOOD SPECIMENOrdering Facility: [facility] Address: [address] [address] Performed By: #### 2 432-8 ####[facility] LABCLIA [id number] [place] [address] Protein [Mass/Vol] 6.8 g/dL Normal 6.3-8.0 [facility] Comment on above: Order Comment: Speci men Type: BLOOD SPECIMENOrdering Facility: [facility] Address: [address] [place] [address] Performed By: #### 2 4322-8 ####[facility] LABCLIA [id number] [place] [address] Sodium [Moles/Vol] 140 mmol/L Normal 136-144 [facility] Comment on above: Order Comment: Speci men Type: BLOOD SPECIMENOrdering Facility: [facility] Address: [address] [address] Performed By: #### 2 4323-8 ####[facility] LABCLIA [id number] [place] [address] Urea nitrogen [Mass/Vol] 11 mg/dL Normal 7-21 [facility] Comment on above: Order Comment: Speci men Type: BLOOD SPECIMENOrdering Facility: [facility] Address: [address] [place] [address] Performed By: #### 2 4323-8 ####[facility] LABCLIA [id number] [place] [address] Ferritin SerPl-mCncon 2022 Ferritin [Mass/Vol] 24.4 ng/mL Normal 14.7-205.1 [facility] Comment on above: Order Comment: Speci men Type: BLOOD SPECIMENOrdering Facility: [facility] Address: [address] [place] [address] Performed By: #### 2 132-9, 2284-8, 2276-4, 73567-4 ####[facility] LABCLIA [id number] [place] [address] [place] Folate SerPl-mCncon 10-08-19 23 Folate [Mass/Vol] 17.6 ng/mL Normal >4.7 [facility] Comment on above: Order Comment: Speci men Type: BLOOD SPECIMENOrdering Facility: [facility] Address: [address] [place] [address] Performed By: #### 2 132-9, 2284-8, 2276-4, 83471-8 ####[facility] LABCLIA [id number] [place] [address] [place] Iron and Iron binding capaci ty panelon 10-07-2022 Iron [Mass/Vol] 97 ug/dL Normal 41-186 [facility] Comment on above: Order Comment: Speci men Type: BLOOD SPECIMENOrdering Facility: [facility] Address: [address] [place] [address] Performed By: #### 2 132-9, 2284-8, 2276-4, 64351-5 ####[facility] LABCLIA [id number] [place] [address] [place] Iron binding capacity [Mass/Vol] 379 ug/dL Normal 232 -386 [facility] Comment on above: Order Comment: Speci men Type: BLOOD SPECIMENOrdering Facility: [facility] Address: [address] [place] [address] Performed By: #### 2 132-9, 2284-8, 2276-4, 11924-6 ####[facility] LABCLIA [id number] [place] [address] [place] Iron/TIBC [Molar ratio] 25.6 % Normal 15.0-57.0 [facility] Comment on above: Order Comment: Speci men Type: BLOOD SPECIMENOrdering Facility: [facility] Address: [address] [address] Performed By: #### 2 132-9, 2284-8, 2276-4, 14123-5 ####[facility] LABIA [id number] [place] [address] [place] Vit B12 [facility] 05-10-2 023 Cobalamin (Vitamin B12) [Mass/Vol] 316 pg/mL Normal 232-1245 [facility] Comment on above: Order Comment: Speci men Type: BLOOD SPECIMENOrdering Facility: [facility] Address: [address] [address] Performed By: #### 2 132-9, 2284-8, 2276-4, 78111-7 ####[facility] LABIA [id number] [place] [address] [place] INSULINon 08-31-2022 Insulin 18.9 uIU/mL Normal 2.6-24.9 [facility] Comment on above: Performed By: #### I NSULIN #### [facility] [address] [place] [address] Dr. Barrington Gomez CBC AUTO DIFFon 08-29-2022 BASO # 0.1 103/ul Normal 0.0-0.1 [facility] Comment on above: Performed By: #### C BC #### [facility] [address] [place] [address] Dr. Barrington Gomez Basophils/100 WBC (Bld) 0.9 % Normal 0.2-2.0 [facility] Comment on above: Performed By: #### C BC #### [facility] [address] [place] [address] Dr. Barrington Gomez EO # 0.1 103/ul Normal 0.0-0.7 [facility] Comment on above: Performed By: #### C BC #### [facility] [address] [place] [address] Dr. Barrington Gomez Eosinophils/100 WBC (Bld) 1.9 % Normal 0.9-7.0 [facility] Comment on above: Performed By: #### C BC #### [facility] [address] [place] [address] Dr. Barrington Gomez Erythrocyte distribution wid th (RBC) [Ratio] 16.9 % Critically high 11.0-15.0 [place] Comment on above: Performed By: #### C BC #### [facility] [address] [place] [address] Dr. Barrington Gomez Hematocrit (Bld) [Volume fraction] 44.4 % Normal 3 6.0-48.0 [facility] Comment on above: Performed By: #### C BC #### [facility] [address] [place] [address] Dr. Barrington Gomez Hemoglobin (Bld) [Mass/Vol] 13.9 g/dL Normal 12.0-16. 0 [facility] Comment on above: Performed By: #### C BC #### [facility] [address] [place] [address] Dr. Barrington Gomez IG # 0.02 10e3/ul Normal 0.00-0.03 [facility] Comment on above: Performed By: #### C BC #### [facility] [address] [place] [address] Dr. Barrington Gomez IG % 0.3 % Normal 0.0-0.5 [facility] Comment on above: Performed By: #### C BC #### [facility] [address] [place] [address] Dr. Barrington Gomez LYMPH # 3.0 103/ul Normal 1.2-3.8 [facility] Comment on above: Performed By: #### C BC #### [facility] [address] [place] [address] Dr. Barrington Gomez Lymphocytes/100 WBC (Bld) 47.6 % Normal 20.5-60.0 [facility] Comment on above: Performed By: #### C BC #### [facility] [address] [place] [address] Dr. Barrington Gomez MANUAL DIFF REQ NO Normal [facility] Comment on above: Performed By: #### C BC #### [facility] [address] [place] [address] Dr. Barrington Gomez MCH (RBC) [Entitic mass] 27.4 pg Normal 26.7-34.0 [facility] Comment on above: Performed By: #### C BC #### [facility] [address] [place] [address] Dr. Barrington Gomez MCHC (RBC) [Mass/Vol] 31.3 g/dL Normal 29.9-35.2 [facility] Comment on above: Performed By: #### C BC #### [facility] [address] [place] [address] Dr. Barrington Gomez MCV (RBC) [Entitic vol] 87.6 fL Normal 81.0-99.0 [facility] Comment on above: Performed By: #### C BC #### [facility] [address] [place] [address] Dr. Barrington Gomez MONO # 0.6 103/ul Normal 0.3-0.8 [facility] Comment on above: Performed By: #### C BC #### [facility] [address] [place] [address] Dr. Barrington Gomez Monocytes/100 WBC (Bld) 8.8 % Normal 1.7-12.0 [facility] Comment on above: Performed By: #### C BC #### [facility] [address] [place] [address] Dr. Barrington Gomez NEUT # 2.6 103/ul Normal 1.4-6.5 [facility] Comment on above: Performed By: #### C BC #### [facility] [address] [place] [address] Dr. Barrington Gomez Neutrophils/100 WBC (Bld) 40.5 % Critically low 43.0-7 5.0 [facility] Comment on above: Performed By: #### C BC #### [facility] [address] [place] [address] Dr. Barrington Gomez Platelet mean volume (Bld) [Entitic vol] 9.4 fL Critically low 9.5-13.5 [facility] Comment on above: Performed By: #### C BC #### [facility] [address] [place] [address] Dr. Barrington Gomez PLT 243 103/ul Normal 150-450 [facility] Comment on above: Performed By: #### C BC #### [facility] [address] [place] [address] Dr. Barrington Gomez RBC 5.07 106/ul Normal 4.20-5.40 [facility] Comment on above: Performed By: #### C BC #### [facility] [address] [place] [address] Dr. Barrington Gomez WBC 6.4 103/ul Normal 4.0-11.0 [facility] Comment on above: Performed By: #### C BC #### [facility] [address] [place] [address] Dr. Barrington Gomez FREE THYROXINE INDEX T7on FTI 3.07 Normal 1.30-4.50 [facility] Comment on above: Performed By: #### U AMIC #### [facility] [address] [place] [address] Dr. Barrington Gomez T3U 32.0 % Normal 30.0-39.0 [facility] Comment on above: Performed By: #### U AMIC #### [facility] [address] [place] [address] Dr. Barrington Gomez T4 [Mass/Vol] 9.60 ug/dL Normal 4.80-13.90 [facility] Comment on above: Performed By: #### U AMIC #### [facility] [address] [address] [address] Barrington Gomez GLYCOHEMOGLOBIN A1Con 2022 ADA RECOMMENDATION SEE BELOW Normal [facility] Comment on above: Result Comment: ADA RECOMMENDED LIMIT 4.0 - 6.0 ADA THERAPEUTIC TARGET < 7.0 ACTION SUGGESTED > 7.0 Performed By: #### A 1C #### [facility] [address] [place] [address] Dr. Barrington Gomez Glucose [Mass/Vol] 120 mg/dL Normal [facility] Comment on above: Performed By: #### A 1C #### [facility] [address] [place] [address] Dr. Barrington Gomez HbA1c (Bld) [Mass fraction] 5.8 % Normal 4.5-6.2 [facility] Comment on above: Performed By: #### A 1C #### [facility] [address] [place] [address] Dr. Barrington Gomez IRONon 08-29-2022 Iron [Mass/Vol] 85.0 ug/dL Normal 50.0-170.0 [facility] Comment on above: Performed By: #### U AMIC #### [facility] [address] [place] [address] Dr. Barrington Gomez LIPID PROFILEon 08-29-2022 CHOL-HDL RATIO NORM SEE BELOW Normal [facility] Comment on above: Result Comment: 3.3 - 4.4 LOW RISK 4.4 - 7.1 AVERAGE RISK 7.1 - 11.0 MODERATE RISK >11.0 HIGH RISK Performed By: #### U AMIC #### [facility] [address] [address] [address] Barrington Gomez Cholesterol [Mass/Vol] 226 mg/dL Critically high <=200 [facility] Comment on above: Performed By: #### U AMIC #### [facility] [address] [address] [address] Barrington Gomez Cholesterol in HDL [Mass/Vol] 93 mg/dL Critically high 4 0-60 [facility] Comment on above: Performed By: #### U AMIC #### [facility] [address] [address] [address] Barrington Gomez Cholesterol in LDL [Mass/Vol] 114.6 mg/dL Normal [facility] Comment on above: Performed By: #### U AMIC #### [facility] [address] [address] [address] Barrington Gomez Cholesterol.total/Cholestero l in HDL [Mass ratio] 2.4 {ratio} Normal [place] Comment on above: Performed By: #### U AMIC #### [facility] [address] [address] [address] Barrington Gomez HDL NORMAL > or = 60 mg/dl - LO W CARDIOVASCULAR RISK <40 mg/dl - HIGH CARDIOVASCULAR RISK Normal [facility] Comment on above: Performed By: #### U AMIC #### [facility] [address] [address] [address] Barrington Gomez LDL CALC NORMAL SEE BELOW Normal [facility] Comment on above: Result Comment: <100 mg/dl OPTIMAL 100 - 129 mg/dl NEAR OR ABOVE OPTIMAL 130 - 159 mg/dl BORDERLINE HIGH 160 - 189 mg/dl HIGH >190 mg/dl VERY HIGH Performed By: #### U AMIC #### [facility] [address] [address] [address] Barrington Gomez Triglyceride [Mass/Vol] 92 mg/dL Normal <=150 [facility] Comment on above: Performed By: #### U AMIC #### [facility] [address] [address] [address] Barrington Gomez VLDL CALC 18.4 mg/dL Normal [facility] Comment on above: Performed By: #### U AMIC #### [facility] [address] [address] [address] Barrington Gomez PROF 14(COMP METB)on 023 Albumin [Mass/Vol] 3.5 g/dL Normal 3.4-5.0 [facility] Comment on above: Performed By: #### U AMIC #### [facility] [address] [address] [address] Barrington Gomez Albumin/Globulin [Mass ratio] 1.1 {ratio} Normal [facility] Comment on above: Performed By: #### U AMIC #### [facility] [address] [address] [address] Barrington Gomez ALP [Catalytic activity/Vol] 71 U/L Normal 46-116 [facility] Comment on above: Performed By: #### U AMIC #### [facility] [address] [address] [address] Barrington Gomez ALT [Catalytic activity/Vol] 28 U/L Normal 14-59 [facility] Comment on above: Performed By: #### U AMIC #### [facility] [address] [place] [address] Dr. Barrington Gomez Anion gap [Moles/Vol] 10.4 mmol/L Normal [facility] Comment on above: Performed By: #### U AMIC #### [facility] [address] [place] [address] Dr. Barrington Gomez AST [Catalytic activity/Vol] 15 U/L Normal 15-37 [facility] Comment on above: Performed By: #### U AMIC #### [facility] [address] [place] [address] Dr. Barrington Gomez Bilirubin [Mass/Vol] 0.4 mg/dL Normal 0.2-1.0 [facility] Comment on above: Performed By: #### U AMIC #### [facility] [address] [address] [address] Barrington Gomez Calcium [Mass/Vol] 9.4 mg/dL Normal 8.5-10.1 [facility] Comment on above: Performed By: #### U AMIC #### [facility] [address] [place] [address] Dr. Barrington Gomez Chloride [Moles/Vol] 106 mmol/L Normal 98-107 [facility] Comment on above: Performed By: #### U AMIC #### [facility] [address] [address] [address] Barrington Gomez CO2 [Moles/Vol] 29.8 mmol/L Normal 21.0-32.0 [facility] Comment on above: Performed By: #### U AMIC #### [facility] [address] [place] [address] Dr. Barrington Gomez Creatinine [Mass/Vol] 0.91 mg/dL Normal 0.55-1.02 [facility] Comment on above: Performed By: #### U AMIC #### [facility] [address] [place] [address] Dr. Barrington Gomez EGFR-AF GIBRALTARIAN >60 Normal >=60 [facility] Comment on above: Performed By: #### U AMIC #### [facility] [address] [place] [address] Dr. Barrington Gomez EGFR-NON AF GIBRALTARIAN >60 Normal >=60 [facility] Comment on above: Performed By: #### U AMIC #### [facility] [address] [place] [address] Dr. Barrington Gomez Globulin (S) [Mass/Vol] 3.1 g/dL Normal [facility] Comment on above: Performed By: #### U AMIC #### [facility] [address] [place] [address] Dr. Barrington Gomez Glucose [Mass/Vol] 88 mg/dL Normal 74-106 [facility] Comment on above: Performed By: #### U AMIC #### [facility] [address] [place] [address] Dr. Barrington Gomez Potassium [Moles/Vol] 4.2 mmol/L Normal 3.5-5.1 [facility] Comment on above: Performed By: #### U AMIC #### [facility] [address] [place] [address] Dr. Barrington Gomez Protein [Mass/Vol] 6.6 g/dL Normal 6.4-8.2 [facility] Comment on above: Performed By: #### U AMIC #### [facility] [address] [place] [address] Dr. Barrington Gomez Sodium [Moles/Vol] 142 mmol/L Normal 136-145 [facility] Comment on above: Performed By: #### U AMIC #### [facility] [address] [address] [address] Barrington Gomez Urea nitrogen [Mass/Vol] 13.0 mg/dL Normal 7.0-18.0 [facility] Comment on above: Performed By: #### U AMIC #### [facility] [address] [address] [address] Barrington Gomez Urea nitrogen/Creatinine [Mass ratio] 14.3 mg/mg Normal [facility] Comment on above: Performed By: #### U AMIC #### [facility] [address] [place] [address] Dr. Barrington Gomez TSHon 08-29-2022 TSH 1.585 uIU/mL Normal 0.358-3.740 [facility] Comment on above: Performed By: #### U AMIC #### [facility] [address] [place] [address] Dr. Barrington Gomez CBC W Auto Differential pane l (Bld)on 06-10-2022 Basophils (Bld) [#/Vol] 0.09 10*3/uL Normal <0.11 [facility] Comment on above: Order Comment: Speci men Type: BLOOD SPECIMEN Ordering Facility: [facility] Address: [address] [address] Performed By: #### 5 7021-8 #### [facility] CLIA [id number] [address] [place] [address] Basophils/100 WBC (Bld) 1.4 % Normal [facility] Comment on above: Order Comment: Speci men Type: BLOOD SPECIMEN Ordering Facility: [facility] Address: [address] [address] Performed By: #### 5 7021-8 #### [facility] CLIA [id number] [address] [place] [address] 30456 Differential cell count method Nom (Bld) Auto Normal [facility] Comment on above: Order Comment: Speci men Type: BLOOD SPECIMEN Ordering Facility: [facility] Address: [address] [address] Performed By: #### 5 7021-8 #### [facility] CLIA [id number] [address] [place] [address] 69683 Eosinophils (Bld) [#/Vol] 0.42 10*3/uL Normal <0.46 [facility] Comment on above: Order Comment: Speci men Type: BLOOD SPECIMEN Ordering Facility: [facility] Address: [address] [address] Performed By: #### 5 7021-8 #### [facility] CLIA [id number] [address] [place] [address]137 Eosinophils/100 WBC (Bld) 6.6 % Normal [facility] Comment on above: Order Comment: Speci men Type: BLOOD SPECIMEN Ordering Facility: [facility] Address: [address] [address] Performed By: #### 5 7021-8 #### [facility] CLIA [id number] [address] [place] [address]1179 Erythrocyte distribution wid th (RBC) [Ratio] 21.7 % High 11.5-15.0 [facility] Comment on above: Order Comment: Speci men Type: BLOOD SPECIMEN Ordering Facility: [facility] Address: [address] [address] Performed By: #### 5 7021-8 #### [facility] CLIA [id number] [address] [place] [address]32[address] Hematocrit (Bld) [Volume fraction] 40.6 % Normal 3 6.0-46.0 [facility] Comment on above: Order Comment: Speci men Type: BLOOD SPECIMEN Ordering Facility: [facility] Address: [address] [address] Performed By: #### 5 7021-8 #### [facility] CLIA [id number] [address] [place] [address] 97128 Hemoglobin (Bld) [Mass/Vol] 12.2 g/dL Normal 11.5-15. 5 [facility] Comment on above: Order Comment: Speci men Type: BLOOD SPECIMEN Ordering Facility: [facility] Address: [address] [address] Performed By: #### 5 7021-8 #### [facility] CLIA [id number] [address] [place] [address] 36214 Immature granulocytes (Bld) [#/Vol] 10*3/uL Normal <0.10 [facility] Comment on above: Order Comment: Speci men Type: BLOOD SPECIMEN Ordering Facility: [facility] Address: [address] [address] Performed By: #### 5 7021-8 #### [facility] CLIA [id number] [address] [place] [address] 46781 Immature granulocytes/100 WBC (Bld) 0.2 % Normal [facility] Comment on above: Order Comment: Speci men Type: BLOOD SPECIMEN Ordering Facility: [facility] Address: [address] [address] Performed By: #### 5 7021-8 #### [facility] CLIA [id number] [address] [place] [address] 04878 Lymphocytes (Bld) [#/Vol] 3.02 10*3/uL Normal 1.00-4.0 0 [facility] Comment on above: Order Comment: Speci men Type: BLOOD SPECIMEN Ordering Facility: [facility] Address: [address] [address] Performed By: #### 5 7021-8 #### [facility] CLIA [id number] [address] [place] [address] 54258 Lymphocytes/100 WBC (Bld) 47.4 % Normal [facility] Comment on above: Order Comment: Speci men Type: BLOOD SPECIMEN Ordering Facility: [facility] Address: [address] [address] Performed By: #### 5 7021-8 #### [facility] CLIA [id number] [address] [place] [address] 83784 MCH (RBC) [Entitic mass] 24.5 pg Low 26.0-34.0 [facility] Comment on above: Order Comment: Speci men Type: BLOOD SPECIMEN Ordering Facility: [facility] Address: [address] [place] [address] Performed By: #### 5 7021-8 #### [facility] CLIA [id number] [address] [place] [address] 99619 MCHC (RBC) [Mass/Vol] 30.0 g/dL Low 30.5-36.0 [facility] Comment on above: Order Comment: Speci men Type: BLOOD SPECIMEN Ordering Facility: [facility] Address: [address] [place] [address] Performed By: #### 5 7021-8 #### [facility] CLIA [id number] [address] [place] [address] 86713 MCV (RBC) [Entitic vol] 81.5 fL Normal 80.0-100.0 [facility] Comment on above: Order Comment: Speci men Type: BLOOD SPECIMEN Ordering Facility: [facility] Address: [address] [place] [address] Performed By: #### 5 7021-8 #### [facility] CLIA [id number] [address] [place] [address] 35245 Monocytes (Bld) [#/Vol] 0.72 10*3/uL Normal <0.87 [facility] Comment on above: Order Comment: Speci men Type: BLOOD SPECIMEN Ordering Facility: [facility] Address: [address] [place] [address] Performed By: #### 5 7021-8 #### [facility] CLIA [id number] [address] [place] [address] 43765 Monocytes/100 WBC (Bld) 11.3 % Normal [facility] Comment on above: Order Comment: Speci men Type: BLOOD SPECIMEN Ordering Facility: [facility] Address: [address] [address] Performed By: #### 5 7021-8 #### [facility] CLIA [id number] [address] [place] [address] 31227 Neutrophils (Bld) [#/Vol] 2.11 10*3/uL Normal 1.45-7.5 0 [facility] Comment on above: Order Comment: Speci men Type: BLOOD SPECIMEN Ordering Facility: [facility] Address: [address] [address] Performed By: #### 5 7021-8 #### [facility] CLIA [id number] [address] [place] [address] 66747 Neutrophils/100 WBC (Bld) 33.1 % Normal [facility] Comment on above: Order Comment: Speci men Type: BLOOD SPECIMEN Ordering Facility: [facility] Address: [address] [address] Performed By: #### 5 7021-8 #### [facility] CLIA [id number] [address] [place] [address] 42675 Nucleated RBC (Bld) [#/Vol] 10*3/uL Normal <0.01 [facility] Comment on above: Order Comment: Speci men Type: BLOOD SPECIMEN Ordering Facility: [facility] Address: [address] [address] Performed By: #### 5 7021-8 #### [facility] CLIA [id number] [address] [place] [address] 41486 Nucleated RBC/100 WBC (Bld) [Ratio] 0.0 /100 WBC Normal [facility] Comment on above: Order Comment: Speci men Type: BLOOD SPECIMEN Ordering Facility: [facility] Address: [address] [address] Performed By: #### 5 7021-8 #### [facility] CLIA [id number] [address] [place] [address] 52646 Platelet mean volume (Bld) [Entitic vol] 10.0 fL Normal 9.0-12.7 [facility] Comment on above: Order Comment: Speci men Type: BLOOD SPECIMEN Ordering Facility: [facility] Address: [address] [place] [address] Performed By: #### 5 7021-8 #### [facility] CLIA [id number] [address] [place] [address] 18195 Platelets (Bld) [#/Vol] 253 10*3/uL Normal 150-400 [facility] Comment on above: Order Comment: Speci men Type: BLOOD SPECIMEN Ordering Facility: [facility] Address: [address] [place] [address] Performed By: #### 5 7021-8 #### [facility] CLIA [id number] [address] [place] [address] 46029 RBC (Bld) [#/Vol] 4.98 10*6/uL Normal 3.90-5.20 [facility] Comment on above: Order Comment: Speci men Type: BLOOD SPECIMEN Ordering Facility: [facility] Address: [address] [place] [address] Performed By: #### 5 7021-8 #### [facility] CLIA [id number] [address] [place] [address] 65987 WBC (Bld) [#/Vol] 6.37 10*3/uL Normal 3.70-11.00 [facility] Comment on above: Order Comment: Speci men Type: BLOOD SPECIMEN Ordering Facility: [facility] Address: [address] [place] [address] Performed By: #### 5 7021-8 #### [facility] CLIA [id number] [address] [place] [address] 24674 CNOVSPon 06-10-2022 CNOVSP Visit (SP) Office ([facility]) JESSICA FERRERA ([id number]) 1955 F Date Time Provider Department 06/10/22 10:45 AM JOSE BRYANT During your visit today, we recorded the following information about you: Temperature Pulse Respiration Blood pressure 97.2 degrees 73/minute 16/minute 152/87 Weight Height 105.9 kg 1.626 m Jose Bryant MD 06/10/2022 11:39 AM Signed NAME: Jessica Ferrera CLINIC NO.: [id number] DATE OF SERVICE: June 10, 2022 (Andra) Some elements in this clinic note that are critical to medical decision making have been carefully reviewed and included from a prior clinic note dated: April 09, 2022 (Andra) CHIEF COMPLAINT: followup for anemia ASSESSMENT: (D50.8) Iron deficiency anemia secondary to inadequate dietary iron intake (primary encounter diagnosis) (R91.8) Pulmonary nodules (R59.0) Mediastinal lymphadenopathy (D75.9) Idiopathic cytopenia of undetermined significance (ICUS) Iron deficiency With anemia - improving. Responding to oral iron replacement ferrous sulfate 325 mg either to be taken twice a day or once every other day. Now at Hgb of 12.2 g/dL Pulmonary nodule Will continue yearly screening CT of the chest PLAN: Keep appointment scheduled in September with Labs same day. Continue oral Iron CT chest in one year with labs also. Will order at next visit in September for March 2023 RTC in 6 months - same day as labs - CBC, CMP, Anemia PULMONARY nodule is stable - can reassess in 1 year. Will discuss in 6 months. 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 We discussed the potential benefits of sending off a sample to complete targeted sequencing (NGS) for 56 commonly mutated genes in myeloid malignancies, primarily, the identification of diagnostic and prognostic markers, as well as potential therapeutic targets. After this discussion, Ms. Ferrera verbally agreed to testing under IRB 5024. she signed consent for IRB 5024, and we will have her stop by at the lab to leave a sample. Results are expected in 10 to 15 business days. This does not appear to be a reactive process. However, she is undergoing workup of enlarged lymph nodes that may be related. Will continue with observation at this time, and follow up on NGS results. I spent 60 minutes in the visit, with more than 50% of the total [id number] time of the visit in counseling / coordination of care. Yo Morse MD, MS [employer] Hematology and Medical Oncology [address] [place], [place] [id number] Labs and Imaging Reviewed outside records provided prior to this visit and those in [facility]. as diagnosed by Dr. Morse [facility]. No evidence of a paraprotein. Negative hepatitis antibodies. No sign of acute viral infection. Inflammatory serologic indicators are negative. Normal LDH. 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 B-12, folate adequate. subacute platelet drop from 263,000 in April 2017 down to the 50-70,000 range in April 2018, CT chest abdomen and pelvis in early 2018 without any obvious neoplastic disease. Some small mediastinal adenopathy which is not particularly concerning. Monitoring for now. HPI: Updated Visit, June 10, 2022: Jessica returns and is doing well. Improved anemia on oral iron. Thrombocytopenia and WBC's normal. Will continue annual CT for nodules. Updated Visit, April 09, 2022: Jessica returns - we talked about the loss of her mother. Her back is better after surgery for lumbar stenosis. Will get labs today. Scan has some inflammatory changes on her CT chest but no changes in nodules. Labs pending today. Updated Visit, July 10, 2021: Jessica is 65 yo and returns in follow up for ICUS - labs are pretty good and remain stable. CT in 12/2020 with stable nodule that will need re-evaluated annually. She has a lot of stress surrounding her mother and her son . We talked about her mental / emotional state and offered support which she turned down for now but will let me know. Past several months has been complaining of persistent / recurrent cough and discomfort. No real dyspnea. Would recommend that she see her PCP. Updated Visit, January 15, 2021: Comes in concerned with recent CT d (more content not included)... Normal [facility] Comprehensive metabolic 2000 panelon 06-10-2022 Albumin [Mass/Vol] 4.2 g/dL Normal 3.9-4.9 [facility] Comment on above: Order Comment: Rocio shaffer Type: BLOOD SPECIMENOrdering Facility: [facility] Address: [address] [address] Performed By: #### 2 4323-8 ####[facility] LABCLIA [id number] [place] [address] ALP [Catalytic activity/Vol] 78 U/L Normal 34-123 [facility] Comment on above: Order Comment: Rocio shaffer Type: BLOOD SPECIMENOrdering Facility: [facility] Address: [address] [address] Performed By: #### 2 4323-8 ####[facility] LABCLIA [id number] [place] [address] ALT [Catalytic activity/Vol] 15 U/L Normal 7-38 [facility] Comment on above: Order Comment: Speci men Type: BLOOD SPECIMENOrdering Facility: [facility] Address: [address] [address] Performed By: #### 2 4323-8 ####[facility] LABCLIA [id number] [place] [address] Anion gap [Moles/Vol] 7 mmol/L Low 9-18 [facility] Comment on above: Order Comment: Speci men Type: BLOOD SPECIMENOrdering Facility: [facility] Address: [address] [address] Performed By: #### 2 4323-8 ####[facility] LABCLIA [id number] [place] [address] AST [Catalytic activity/Vol] 21 U/L Normal 13-35 [facility] Comment on above: Order Comment: Speci men Type: BLOOD SPECIMENOrdering Facility: [facility] Address: [address] [address] Performed By: #### 2 4323-8 ####[facility] LABCLIA [id number] [place] [address] Bilirubin [Mass/Vol] 0.2 mg/dL Normal 0.2-1.3 [facility] Comment on above: Order Comment: Speci men Type: BLOOD SPECIMENOrdering Facility: [facility] Address: [address] [address] Performed By: #### 2 4323-8 ####[facility] LABCLIA [id number] [place] [address] Calcium [Mass/Vol] 9.4 mg/dL Normal 8.5-10.2 [facility] Comment on above: Order Comment: Speci men Type: BLOOD SPECIMENOrdering Facility: [facility] Address: [address] [address] Performed By: #### 2 4323-8 ####[facility] LABCLIA [id number] [place] [address] Chloride [Moles/Vol] 107 mmol/L High 97-105 [facility] Comment on above: Order Comment: Speci men Type: BLOOD SPECIMENOrdering Facility: [facility] Address: [address] [place] [address] Performed By: #### 2 4323-8 ####[facility] LABCLIA [id number] [place] [address] CO2 [Moles/Vol] 26 mmol/L Normal 22-30 [facility] Comment on above: Order Comment: Speci men Type: BLOOD SPECIMENOrdering Facility: [facility] Address: [address] [place] [address] Performed By: #### 2 4323-8 ####[facility] LABCLIA [id number] [place] [address] Creatinine [Mass/Vol] 0.87 mg/dL Normal 0.58-0.96 [facility] Comment on above: Order Comment: Speci men Type: BLOOD SPECIMENOrdering Facility: [facility] Address: [address] [place] [address] Performed By: #### 2 4323-8 ####[facility] LABCLIA [id number] [place] [address] ESTIMATED GLOMERULAR FILTRATION RATE 74 mL/min/1.73m??? Normal >=60 [facility] Comment on above: Order Comment: Speci men Type: BLOOD SPECIMENOrdering Facility: [facility] Address: [address] [place] [address] Result Comment: Abigail mated Glomerular Filtration Rate (eGFR) is calculated using the 2020 CKD-EPI creatinine equation. This equation utilizes serum creatinine, sex, and age as parameters. The creatinine assay has traceable calibration to isotope dilution-mass spectrometry. Refer to KDIGO guidelines for clinical interpretation. In patients with unstable renal function, e.g. those with acute kidney injury, the eGFR may not accurately reflect actual GFR. Performed By: #### 2 4323-8 ####[facility] LABCLIA [id number] [place] [address] Glucose [Mass/Vol] 97 mg/dL Normal 74-99 [facility] Comment on above: Order Comment: Speci men Type: BLOOD SPECIMENOrdering Facility: [facility] Address: [address] [place] [address] Result Comment: The [place] Diabetes Association (ADA) provides guidance for cutoff values for fasting glucose and random glucose. The ADA defines fasting as no caloric intake for at least 8 hours. Fasting plasma glucose results between 100 to 125 mg/dL indicate increased risk for diabetes (prediabetes). Fasting plasma glucose results greater than or equal to 126 mg/dL meet the criteria for diagnosis of diabetes. In the absence of unequivocal hyperglycemia, results should be confirmed by repeat testing. In a patient with classic symptoms of hyperglycemia or hyperglycemic crisis, random plasma glucose results greater than or equal to 200 mg/dL meet the criteria for diagnosis of diabetes. Reference: Standards of Medical Care in Diabetes 2016, [place] [employer] Association. Diabetes Care. 2016.39(Suppl 1). Performed By: #### 2 4323-8 ####[facility] LABCLIA [id number] [place] [address] Potassium [Moles/Vol] 4.2 mmol/L Normal 3.7-5.1 [facility] Comment on above: Order Comment: Speci men Type: BLOOD SPECIMENOrdering Facility: [facility] Address: [address] [place] [address] Performed By: #### 2 4323-8 ####[facility] LABCLIA [id number] [place] [address] Protein [Mass/Vol] 6.2 g/dL Low 6.3-8.0 [facility] Comment on above: Order Comment: Speci men Type: BLOOD SPECIMENOrdering Facility: [facility] Address: [address] [place] [address] Performed By: #### 2 4323-8 ####[facility] LABCLIA [id number] [place] [address] Sodium [Moles/Vol] 140 mmol/L Normal 136-144 [facility] Comment on above: Order Comment: Speci men Type: BLOOD SPECIMENOrdering Facility: [facility] Address: [address] [id number] Performed By: #### 2 4323-8 ####[facility] LABCLIA [id number] [place] [address] Urea nitrogen [Mass/Vol] 10 mg/dL Normal 7-21 [facility] Comment on above: Order Comment: Speci men Type: BLOOD SPECIMENOrdering Facility: [facility] Address: [address] [address] Performed By: #### 2 4323-8 ####[facility] LABCLIA [id number] [place] [address] Covid-19 PCR (CVDTB)on 04-01 SARS-CoV-2 (COVID-19) RNA EVAN+probe Ql (Unsp spec) Not detected Normal NOT DETECTED [facility] Comment on above: Result Comment: When diagnostic testing is negative, the possibility of a false negative should be considered in the context of a patient's recent exposures and the presence of clinical signs and symptoms consistent with SARS-CoV-2. This test is not yet approved or cleared by the [place] FDA. When there are no FDA-approved or cleared tests available, and other criteria are met, FDA can make tests available under an emergency access mechanism called an Emergency Use Authorization (EUA). The EUA for this test is supported by the Social Work Instructor of Health and Human Service's declaration that circumstances exist to justify the emergency use of in vitro diagnostics for the detection and/or diagnosis of the virus that causes COVID-19. This EUA will remain in effect for the duration of the COVID-19 declaration justifying emergency of IVDs, unless it is terminated or revoked by the FDA (after which the test may no longer be used). Performed By: #### C VDTBH #### [facility] [address] [place] [address] Dr. Barrington Gomez INFLUENZA A AND B [facility] 04-28 [facility] SEE BELOW Normal [facility] Comment on above: Result Comment: Nega tive for Flu B protein antigen. Infection due to Flu B cannot be ruled out. Flu B antigen in the sample may be below the detection limit of the test. Performed By: #### I NFLUAB #### [facility] [address] [place] [address] Dr. Barrington Gomez INFLUENZA A AG Positive Abnormal NEGATIVE SEE COMMENT [facility] Comment on above: Performed By: #### I NFLUAB #### [facility] [address] [place] [address] Dr. Barrington Gomez INFLUENZA B AG Negative Normal NEGATIVE SEE COMMENT [facility] Comment on above: Performed By: #### I NFLUAB #### [facility] [address] [place] [address] Dr. Barrington Gomez [facility] SEE BELOW Normal [facility] Comment on above: Result Comment: NOTE : Live attenuated influenzae vaccine viruses can cause a positive result for a rapid influenza diagnostic test if administered up to 7 days prior to rapid testing. Performed By: #### I NFLUAB #### [facility] [address] [place] [address] Dr. Barrington Gomez INTERNAL CONTROLS Within Normal Limits Normal Wi thin Normal Limits [facility] Comment on above: Performed By: #### I NFLUAB #### [facility] [address] [place] [address] Dr. Barrington Billy 04-10-2022 DARIN Telephone (HEMASA) JESSICA FERRERA ([id number]) 1955 F Date Time Provider Department 04/10/22 CONSUELO FI[employer] During your visit today, we recorded the following information about you: Consuelo Tavares RN 04/10/2022 9:42 AM Signed Jesscia called stating she is concerned about her iron levels and wants to know if you think she should follow up sooner than 6 months? Please advise. NING Corbin MD 04/10/2022 12:17 PM Signed Is she taking her iron by mouth still? If she isn't, she should resume. If she isn't because she couldn't tolerate it, we should give her a series of iron replacement for 4 doses weekly and then recheck her 4 weeks after her last dose with labs. She is now anemic which she wasn't in the past. Consuelo Tavares RN 04/10/2022 1:02 PM Signed Call made to patient. No answer. Left message requesting call back. NING Corbin RN 04/10/2022 2:43 PM Signed Spoke to Jessica. She had not been taking her oral iron. She states she would like to try the oral iron again and would like to avoid IV if possible. Jessica states they have a hard time getting IV access. Script pending. Please review and sign. Do you want her to come back for labs prior to 6 months? NING Corbin RN 04/10/2022 4:21 PM Signed Call made to Jessica. Informed pt that Dr. Alberto would send prescription to her pharmacy and would like her to follow up in two month with labs before. Pt is in agreement with plan. Pt informed she would be receiving a call for scheduling. PSS: Per Dr. Alberto Please schedule patient for 2 month follow up with labs prior to visit. Thanks! NING Corbin RN 04/13/2022 10:58 AM Signed Pt is scheduled for 2 month follow up; 06/10/22. PIPPA/SRUTHI: Please review and sign iron RX pended by Allison Tavares. Thank you, NING Delatorre RN 04/14/2022 8:37 AM Signed VM left that RX sent to [facility]. Patricia Eugene RN Allergies As of Date: 04/10/2022 Noted Allergy Reaction CIPROFLOXACIN 06/05/2021 5 - Intolerance CLINDAMYCIN 01/23/2015 11 - Vomiting DOXYCYCLINE 05/14/2020 11 - Vomiting LEVAQUIN (LEVOFLOXACIN) 04/09/2022 17 - Myalgia MONISTAT 1 (TIOCONAZOLE) 01/23/2015 14 - Other: See Comments Comments: Burning of skin NITROFURANTOIN MONOHYD/M-CRYST 10/22/2021 8 - GI Upset 4 - Hives 9 - Itching 2 - Rash 7 - Swelling PENICILLINS 01/23/2015 12 - Shortness of Breath SKIN CLEANSER COMBINATION NO.17 09/01/2017 16 - Unknown Date Reviewed: 04/09/2022 Reviewed by: Angle Sanchez Ma - Fully Assessed Reason for Visit: Patient Question [0247] Cmt: appointment Visit Diagnosis:Iron deficiency anemia secondary to inadequate dietary iron intake [D50.8] Order(s):ferrous sulfate 325 mg (65 mg iron) tabletTake 1 tablet by mouth daily with breakfast.Disp: 30 tabletRfl: 6 Prescriptions as of 04/14/2022 - ferrous sulfate 325 mg (65 mg iron) tablet Take 1 tablet by mouth daily with breakfast. - sulfamethoxazole-trimethoprim (BACTRIM,SEPTRA) 400-80 mg per tablet Take 1 tablet by mouth once daily. - baclofen (LIORESAL) 10 mg tablet Take 10 mg by mouth. - Methenamine Hippurate (HIPREX) 1 gram tablet Take 1 tablet by mouth twice daily with meals. - estradiol (ESTRACE) 0.01 % (0.1 mg/gram) vaginal cream 1 g. - traZODone (DESYREL) 100 mg tablet Take 100 mg by mouth daily at bedtime. - lisinopril (ZESTRIL, PRINIVIL) 20 mg tablet lisinopril 20 mg tablet Take 1 tablet every day by oral route. - ibuprofen (MOTRIN) 800 mg tablet Take 800 mg by mouth every 6 hours as needed. - esomeprazole (NEXIUM) 40 mg capsule Take 40 mg by mouth. Problem List As Of Date 04/10/2022 Noted Resolved Enthesopathy of ankle and tarsus [M77.50] 08/19/2009 Tibialis Tendinitis [M76.829] 08/19/2009 Thrombocytopenia (HCC) [D69.6] 07/15/2018 Mediastinal lymphadenopathy [R59.0] 01/15/2021 Pulmonary nodules [R91.8] 01/15/2021 Idiopathic cytopenia of undetermined significan*01/15/2021 Iron deficiency anemia secondary to inadequate *04/10/2022 Prescriptions ordered this encounter Disp Refills Start End FERROUS SULFATE 325 MG (65 MG IRON) * 30 t* 6 04/14/2022 04/09/2023 Route: ORAL Sig: Take 1 tablet by mouth daily with breakfast. Encounter Status:Closed by PATRICIA EUGENE on 04/14/22 Normal [facility] CBC W Auto Differential pane l (Bld)on 04-09-2022 Basophils (Bld) [#/Vol] 0.07 10*3/uL Normal <0.11 [facility] Comment on above: Order Comment: Speci men Type: BLOOD SPECIMENOrdering Facility: [facility] Address: [address] [place] [address] Performed By: #### 5 7021-8 ####[facility] LABCLIA [id number] [place] [address] Basophils/100 WBC (Bld) 1.0 % Normal [facility] Comment on above: Order Comment: Speci men Type: BLOOD SPECIMENOrdering Facility: [facility] Address: [address] [place] [address] Performed By: #### 5 7021-8 ####[facility] LABCLIA [id number] [place] [address] Differential cell count method Nom (Bld) Auto Normal [facility] Comment on above: Order Comment: Speci men Type: BLOOD SPECIMENOrdering Facility: [facility] Address: [address] [address] Performed By: #### 5 7021-8 ####[facility] LABCLIA [id number] [place] [address] Eosinophils (Bld) [#/Vol] 0.43 10*3/uL Normal <0.46 [facility] Comment on above: Order Comment: Speci men Type: BLOOD SPECIMENOrdering Facility: [facility] Address: [address] [place] [address] Performed By: #### 5 7021-8 ####[facility] LABCLIA [id number] [place] [address] Eosinophils/100 WBC (Bld) 6.3 % Normal [facility] Comment on above: Order Comment: Speci men Type: BLOOD SPECIMENOrdering Facility: [facility] Address: [address] [place] [address] Performed By: #### 5 7021-8 ####[facility] LABCLIA [id number] [place] [address] Erythrocyte distribution wid th (RBC) [Ratio] 15.6 % High 11.5-15.0 [facility] Comment on above: Order Comment: Speci men Type: BLOOD SPECIMENOrdering Facility: [facility] Address: [address] [place] [address] Performed By: #### 5 7021-8 ####[facility] LABCLIA [id number] [place] [address] Hematocrit (Bld) [Volume fraction] 34.7 % Low 3 6.0-46.0 [facility] Comment on above: Order Comment: Speci men Type: BLOOD SPECIMENOrdering Facility: [facility] Address: [address] [place] [address] Performed By: #### 5 7021-8 ####[facility] LABCLIA [id number] [place] [address] Hemoglobin (Bld) [Mass/Vol] 10.5 g/dL Low 11.5-15. 5 [facility] Comment on above: Order Comment: Speci men Type: BLOOD SPECIMENOrdering Facility: [facility] Address: [address] [place] [address] Performed By: #### 5 7021-8 ####[facility] LABCLIA [id number] [place] [address] Immature granulocytes (Bld) [#/Vol] 10*3/uL Normal <0.10 [facility] Comment on above: Order Comment: Speci men Type: BLOOD SPECIMENOrdering Facility: [facility] Address: [address] [place] [address] Performed By: #### 5 7021-8 ####[facility] LABCLIA [id number] [place] [address] Immature granulocytes/100 WBC (Bld) 0.3 % Normal [facility] Comment on above: Order Comment: Speci men Type: BLOOD SPECIMENOrdering Facility: [facility] Address: [address] [place] [address] Performed By: #### 5 7021-8 ####[facility] LABIA [id number] [place] [address] Lymphocytes (Bld) [#/Vol] 3.11 10*3/uL Normal 1.00-4.0 0 [facility] Comment on above: Order Comment: Speci men Type: BLOOD SPECIMENOrdering Facility: [facility] Address: [address] [place] [address] Performed By: #### 5 7021-8 ####[facility] LABIA [id number] [place] [address] Lymphocytes/100 WBC (Bld) 45.3 % Normal [facility] Comment on above: Order Comment: Speci men Type: BLOOD SPECIMENOrdering Facility: [facility] Address: [address] [place] [address] Performed By: #### 5 7021-8 ####[facility] LABIA [id number] [place] [address] MCH (RBC) [Entitic mass] 23.9 pg Low 26.0-34.0 [facility] Comment on above: Order Comment: Speci men Type: BLOOD SPECIMENOrdering Facility: [facility] Address: [address] [place] [address] Performed By: #### 5 7021-8 ####[facility] LABCLIA [id number] [place] [address] MCHC (RBC) [Mass/Vol] 30.3 g/dL Low 30.5-36.0 [facility] Comment on above: Order Comment: Speci men Type: BLOOD SPECIMENOrdering Facility: [facility] Address: [address] [place] [address] Performed By: #### 5 7021-8 ####[facility] LABIA [id number] [place] [address] MCV (RBC) [Entitic vol] 79.0 fL Low 80.0-100.0 [facility] Comment on above: Order Comment: Speci men Type: BLOOD SPECIMENOrdering Facility: [facility] Address: [address] [place] [address] Performed By: #### 5 7021-8 ####[facility] LABIA [id number] [place] [address] Monocytes (Bld) [#/Vol] 0.96 10*3/uL High <0.87 [facility] Comment on above: Order Comment: Speci men Type: BLOOD SPECIMENOrdering Facility: [facility] Address: [address] [place] [address] Performed By: #### 5 7021-8 ####[facility] LABIA [id number] [place] [address] Monocytes/100 WBC (Bld) 14.0 % Normal [facility] Comment on above: Order Comment: Speci men Type: BLOOD SPECIMENOrdering Facility: [facility] Address: [address] [place] [address] Performed By: #### 5 7021-8 ####[facility] LABIA [id number] [place] [address] Neutrophils (Bld) [#/Vol] 2.28 10*3/uL Normal 1.45-7.5 0 [facility] Comment on above: Order Comment: Speci men Type: BLOOD SPECIMENOrdering Facility: [facility] Address: [address] [place] [address] Performed By: #### 5 7021-8 ####[facility] LABCLIA [id number] [place] [address] Neutrophils/100 WBC (Bld) 33.1 % Normal [facility] Comment on above: Order Comment: Speci men Type: BLOOD SPECIMENOrdering Facility: [facility] Address: [address] [place] [address] Performed By: #### 5 7021-8 ####[facility] LABCLIA [id number] [place] [address] Nucleated RBC (Bld) [#/Vol] 10*3/uL Normal <0.01 [facility] Comment on above: Order Comment: Speci men Type: BLOOD SPECIMENOrdering Facility: [facility] Address: [address] [place] [address] Performed By: #### 5 7021-8 ####[facility] LABCLIA [id number] [place] [address] Nucleated RBC/100 WBC (Bld) [Ratio] 0.0 /100 WBC Normal [facility] Comment on above: Order Comment: Speci men Type: BLOOD SPECIMENOrdering Facility: [facility] Address: [address] [place] [address] Performed By: #### 5 7021-8 ####[facility] LABCLIA [id number] [place] [address] Platelet mean volume (Bld) [Entitic vol] 10.2 fL Normal 9.0-12.7 [facility] Comment on above: Order Comment: Speci men Type: BLOOD SPECIMENOrdering Facility: [facility] Address: [address] [place] [address] Performed By: #### 5 7021-8 ####[facility] LABCLIA [id number] [place] [address] Platelets (Bld) [#/Vol] 284 10*3/uL Normal 150-400 [facility] Comment on above: Order Comment: Speci men Type: BLOOD SPECIMENOrdering Facility: [facility] Address: [address] [place] [address] Performed By: #### 5 7021-8 ####[facility] LABIA [id number] [place] [address] RBC (Bld) [#/Vol] 4.39 10*6/uL Normal 3.90-5.20 [facility] Comment on above: Order Comment: Speci men Type: BLOOD SPECIMENOrdering Facility: [facility] Address: [address] [place] [address] Performed By: #### 5 7021-8 ####[facility] LABIA [id number] [place] [address] WBC (Bld) [#/Vol] 6.87 10*3/uL Normal 3.70-11.00 [facility] Comment on above: Order Comment: Speci men Type: BLOOD SPECIMENOrdering Facility: [facility] Address: [address] [place] [address] Performed By: #### 5 7021-8 ####[facility] LABIA [id number] [place] [address] CNOVSPon 04-09-2022 CNOVSP Visit (SP) Office ([facility]) JESSICA FERRERA ([id number]) 1955 F Date Time Provider Department 04/09/22 9:15 AM JOSE BRYANT During your visit today, we recorded the following information about you: Temperature Pulse Respiration Blood pressure 97.7 degrees 67/minute 16/minute 143/83 Weight 106 kg Jose Bryant MD 04/14/2022 1:16 PM Signed NAME: Jessica Ferrera CLINIC NO.: [id number] DATE OF SERVICE: April 09, 2022 (Andra) Some elements in this clinic note that are critical to medical decision making have been carefully reviewed and included from a prior clinic note dated: July 10, 2021 (Andra) CHIEF COMPLAINT: 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 Will order at next visit RTC in 6 months - same day as labs - CBC, CMP, Anemia Continue antibiotics as ordered by PCP. PULMONARY nodule is stable - can reassess in 1 year. Will discuss in 6 months. [facility] Clinical Note Previous notes reviewed today in preparation for this visit 07/11/2020 In summary: Ms. 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 We discussed the potential benefits of sending off a sample to complete targeted sequencing (NGS) for 56 commonly mutated genes in myeloid malignancies, primarily, the identification of diagnostic and prognostic markers, as well as potential therapeutic targets. After this discussion, Ms. Ferrera verbally agreed to testing under IRB 5024. she signed consent for IRB 5024, and we will have her stop by at the lab to leave a sample. Results are expected in 10 to 15 business days. This does not appear to be a reactive process. However, she is undergoing workup of enlarged lymph nodes that may be related. Will continue with observation at this time, and follow up on NGS results. I spent 60 minutes in the visit, with more than 50% of the total galw-bu-rbad time of the visit in counseling / coordination of care. Yo Morse MD, MS [employer] Hematology and Medical Oncology [address] [place] [id number] Labs and Imaging Reviewed outside records provided prior to this visit and those in [facility]. as diagnosed by Dr. Morse [facility]. No evidence of a paraprotein. Negative hepatitis antibodies. No sign of acute viral infection. Inflammatory serologic indicators are negative. Normal LDH. 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 B-12, folate adequate. subacute platelet drop from 263,000 in April 2017 down to the 50-70,000 range in April 2018, CT chest abdomen and pelvis in early 2018 without any obvious neoplastic disease. Some small mediastinal adenopathy which is not particularly concerning. Monitoring for now. Iron deficiency Without anemia Will monitor closely, recommended oral iron replacement ferrous sulfate 325 mg either to be taken twice a day or once every other day. Pulmonary nodule We'll consider yearly screening CT of the chest although I think this is pretty low yield. Visit (SP) Office on 04/09/22 CBC + DIFF COMP METABOLIC PANEL IRON + TIBC FERRITIN BLD VITAMIN B12 BLOOD FOLATE SERUM Return in about 6 months (around 10/07/2022). HPI: Updated Visit, April 09, 2022: Jessica returns - we talked about the loss of her mother. Her back is better after surgery for lumbar stenosis. Will get labs today. Scan has some inflammatory changes on her CT chest but no changes in nodules. Labs pending today. Updated Visit, July 10, 2021: Jessica is 65 yo and returns in follow up for ICUS - labs are pretty good and remain stable. CT in 12/2020 with stable nodule that will need re-evaluated annually. She has a lot of stress surrounding her mother and her son . We talked about her mental / emotional state and offered support which she turned down for now but will let me know. Past several months has been complaining of persistent / recurrent cough and discomfort. No real dyspnea. Would recommend that she see her PCP. Updated Visit, January 15, 2021: Comes in concerned (more content not included)... Normal [facility] Comprehensive metabolic 2000 panelon 04-09-2022 Albumin [Mass/Vol] 4.2 g/dL Normal 3.9-4.9 [facility] Comment on above: Order Comment: Rocio shaffer Type: BLOOD SPECIMENOrdering Facility: [facility] Address: [address] [address] Performed By: #### 2 532-0, ####[facility] LABCLIA [id number] [place] [address] ALP [Catalytic activity/Vol] 74 U/L Normal 34-123 [facility] Comment on above: Order Comment: Rocio shaffer Type: BLOOD SPECIMENOrdering Facility: [facility] Address: [address] [address] Performed By: #### 2 532-0, ####[facility] LABCLIA [id number] [place] [address] ALT [Catalytic activity/Vol] 13 U/L Normal 7-38 [facility] Comment on above: Order Comment: Rocio shaffer Type: BLOOD SPECIMENOrdering Facility: [facility] Address: [address] [address] Performed By: #### 2 532-0, 16185-6 ####[facility] LABCLIA [id number] [place] [address] Anion gap [Moles/Vol] 7 mmol/L Low 9-18 [facility] Comment on above: Order Comment: Speci men Type: BLOOD SPECIMENOrdering Facility: [facility] Address: [address] [place] [address] Performed By: #### 2 532-0, ####[facility] LABCLIA [id number] [place] [address] AST [Catalytic activity/Vol] 16 U/L Normal 13-35 [facility] Comment on above: Order Comment: Speci men Type: BLOOD SPECIMENOrdering Facility: [facility] Address: [address] [place] [address] Performed By: #### 2 532-0, ####[facility] LABCLIA [id number] [place] [address] Bilirubin [Mass/Vol] 0.2 mg/dL Normal 0.2-1.3 [facility] Comment on above: Order Comment: Speci men Type: BLOOD SPECIMENOrdering Facility: [facility] Address: [address] [place] [address] Performed By: #### 2 532-0, ####[facility] LABCLIA [id number] [place] [address] Calcium [Mass/Vol] 9.4 mg/dL Normal 8.5-10.2 [facility] Comment on above: Order Comment: Speci men Type: BLOOD SPECIMENOrdering Facility: [facility] Address: [address] [place] [address] Performed By: #### 2 532-0, ####[facility] LABCLIA [id number] [place] [address] Chloride [Moles/Vol] 106 mmol/L High 97-105 [facility] Comment on above: Order Comment: Speci men Type: BLOOD SPECIMENOrdering Facility: [facility] Address: [address] [address] Performed By: #### 2 532-0, 43868-7 ####[facility] LABCLIA [id number] [place] [address] CO2 [Moles/Vol] 26 mmol/L Normal 22-30 [facility] Comment on above: Order Comment: Speci men Type: BLOOD SPECIMENOrdering Facility: [facility] Address: [address] [place] [address] Performed By: #### 2 532-0, 30414-3 ####[facility] LABIA [id number] [place] [address] Creatinine [Mass/Vol] 0.91 mg/dL Normal 0.58-0.96 [facility] Comment on above: Order Comment: Speci men Type: BLOOD SPECIMENOrdering Facility: [facility] Address: [address] [place] [address] Performed By: #### 2 532-0, 46130-6 ####[facility] LABIA [id number] [place] [address] ESTIMATED GLOMERULAR FILTRATION RATE 70 mL/min/1.73m??? Normal >=60 [facility] Comment on above: Order Comment: Speci men Type: BLOOD SPECIMENOrdering Facility: [facility] Address: [address] [place] [address] Result Comment: Abigail mated Glomerular Filtration Rate (eGFR) is calculated using the 2020 CKD-EPI creatinine equation. This equation utilizes serum creatinine, sex, and age as parameters. The creatinine assay has traceable calibration to isotope dilution-mass spectrometry. Refer to KDIGO guidelines for clinical interpretation. In patients with unstable renal function, e.g. those with acute kidney injury, the eGFR may not accurately reflect actual GFR. Performed By: #### 2 532-0, 03634-3 ####[facility] LABIA [id number] [place] [address] Glucose [Mass/Vol] 93 mg/dL Normal 74-99 [facility] Comment on above: Order Comment: Speci men Type: BLOOD SPECIMENOrdering Facility: [facility] Address: [address] [place] [address] Result Comment: The [place] Diabetes Association (ADA) provides guidance for cutoff values for fasting glucose and random glucose. The ADA defines fasting as no caloric intake for at least 8 hours. Fasting plasma glucose results between 100 to 125 mg/dL indicate increased risk for diabetes (prediabetes). Fasting plasma glucose results greater than or equal to 126 mg/dL meet the criteria for diagnosis of diabetes. In the absence of unequivocal hyperglycemia, results should be confirmed by repeat testing. In a patient with classic symptoms of hyperglycemia or hyperglycemic crisis, random plasma glucose results greater than or equal to 200 mg/dL meet the criteria for diagnosis of diabetes. Reference: Standards of Medical Care in Diabetes 2016, [place] Diabetes Association. Diabetes Care. 2016.39(Suppl 1). Performed By: #### 2 532-0, 57629-9 ####[facility] LABCLIA [id number] [place] [address] Potassium [Moles/Vol] 4.1 mmol/L Normal 3.7-5.1 [facility] Comment on above: Order Comment: Speci men Type: BLOOD SPECIMENOrdering Facility: [facility] Address: [address] [place], [place] [address] Performed By: #### 2 532-0, 22126-4 ####[facility] LABCLIA [id number] [place] [address] Protein [Mass/Vol] 6.5 g/dL Normal 6.3-8.0 [facility] Comment on above: Order Comment: Speci men Type: BLOOD SPECIMENOrdering Facility: [facility] Address: [address] [place] [address] Performed By: #### 2 532-0, 03165-9 ####[facility] LABCLIA [id number] [place] [address] Sodium [Moles/Vol] 139 mmol/L Normal 136-144 [facility] Comment on above: Order Comment: Speci men Type: BLOOD SPECIMENOrdering Facility: [facility] Address: [address] Performed By: #### 2 532-0, 47642-8 ####[facility] LABCLIA [id number] [place] [address] Urea nitrogen [Mass/Vol] 9 mg/dL Normal 7-21 [facility] Comment on above: Order Comment: Speci men Type: BLOOD SPECIMENOrdering Facility: [facility] Address: [address] [address] Performed By: #### 2 532-0, ####[facility] LABCLIA [id number] [place] [address] Ferritin SerPl-mCncon 2021 Ferritin [Mass/Vol] 8.2 ng/mL Low 14.7-205.1 [facility] Comment on above: Order Comment: Speci men Type: BLOOD SPECIMENOrdering Facility: [facility] Address: [address] [place] [address] Performed By: #### 2 132-9, 59443-1, 2275-4, 2283-12 ####[facility] LABCLIA [id number] [place] [address] [place] Folate SerPl-mCncon 04-09-20 Folate [Mass/Vol] 12.5 ng/mL Normal >4.7 [facility] Comment on above: Order Comment: Speci men Type: BLOOD SPECIMENOrdering Facility: [facility] Address: [address] [place], [place] [address] Performed By: #### 2 132-9, 12117-0, 2275-4, 2283-12 ####[facility] LABCLIA [id number] [place] [address] [place] Iron and Iron binding capaci ty panelon 04-09-2022 Iron [Mass/Vol] 24 ug/dL Low 41-186 [facility] Comment on above: Order Comment: Speci men Type: BLOOD SPECIMENOrdering Facility: [facility] Address: [address] [place] [address] Performed By: #### 2 132-9, 26481-1, 2276-4, 2284-8 ####[facility] LABCLIA [id number] [place] [address] [place] Iron binding capacity [Mass/Vol] 470 ug/dL High 232 -386 [facility] Comment on above: Order Comment: Speci men Type: BLOOD SPECIMENOrdering Facility: [facility] Address: [address] [place] [address] Performed By: #### 2 132-9, 53221-9, 6-4, 2284-8 ####[facility] LABCLIA [id number] [address] [place] Iron/TIBC [Molar ratio] 5.1 % Low 15.0-57.0 [facility] Comment on above: Order Comment: Speci men Type: BLOOD SPECIMENOrdering Facility: [facility] Address: [address] [place] [address] Performed By: #### 2 132-9, 98461-8, 6-4, 2284-8 ####[facility] LABCLIA [id number] [place] [address] [place] LDH SerPl-cCncon 04-09-2022 LDH [Catalytic activity/Vol] 211 U/L Normal 135-214 [facility] Comment on above: Order Comment: Speci men Type: BLOOD SPECIMENOrdering Facility: [facility] Address: [address] [place] [address] Performed By: #### 2 532-0, 78881-3 ####[facility] LABCLIA [id number] [place] [address] Vit B12 SerPl-mCncon 10-2 022 Cobalamin (Vitamin B12) [Mass/Vol] 295 pg/mL Normal 232-1245 [facility] Comment on above: Order Comment: Speci men Type: BLOOD SPECIMENOrdering Facility: [facility] Address: [address] [place] [address] Performed By: #### 2 132-9, 61894-4, 2276-4, 2284-8 ####[facility] LABCLIA [id number] [facility] [place] [address] [place] [address] CHEST W IVCONon 2 CT CHEST W IVCON * * *Final Report* * * DATE OF EXAM: Apr 06 2022 9:21AM [facility] 0539 - CT CHEST W IVCON / PROCEDURE REASON: multiple diagnoses * * * * Physician Interpretation * * * * RESULT: EXAMINATION: CHEST CT WITH CONTRAST CLINICAL HISTORY: Idiopathic cytopenia of undetermined significance (ICUS) Pulmonary nodules Technique: Spiral CT acquisition of the chest from the thoracic inlet to the upper abdomen following IV contrast. MQ: [id number]_5 Contrast: 50 mL Omnipaque [address] Dose-Length Product: 476 mGy*cm CT Dose Reduction Employed: Automated exposure control (AEC) Comparison: 01/10/21 from an outside institution; 01/03/2019 and 07/11/2018 from [facility] RESULT: Limitations: None. Lines, tubes, and devices: None. Lung parenchyma and pleura: 6-7 mm left upper lobe groundglass opacity (image 4:74), stable. 4 mm nodular opacity along the left major fissure (image 4:75) and may represent an intrapulmonary lymph node, stable. New 2 mm left lower lobe nodular opacity (4:139) most likely infectious/inflammatory in etiology. New streaky scarring/discoid atelectasis is noted in the right middle lobe. No pleural effusion. Central airways are patent. Thoracic inlet, heart, and mediastinum: Borderline mediastinal lymphadenopathy is noted. For example (short axis measurement): * 1.0 cm aortopulmonary window (image 3: 56) * 0.9 cm subcarinal (image 3:82) The thoracic aorta and main pulmonary artery are normal in caliber. The cardiac chambers are normal in size. No coronary artery atherosclerotic calcifications are noted, although the study is not optimized for coronary assessment. No pericardial effusion or thickening. Small hiatal hernia. Bones and soft tissues: No suspicious lytic or blastic osseous lesions. Upper abdomen: Stable IMPRESSION: 1. New 2 mm left lower lobe nodular opacity, most likely infectious/inflammatory in etiology. Consider follow-up to complete resolution. 2. New streaky scarring/discoid atelectasis in the right middle lobe. 3. Borderline mediastinal lymphadenopathy, stable. 4. 6-7 mm groundglass opacity in the left upper lobe, stable since 07/11/18. This may also be evaluated at interval follow-up. Transcribe Date/Time: Apr 06 2022 9:41A Dictated by: RICHARD NORTON MD This examination was interpreted and the report reviewed and electronically signed by: RICHARD NORTON MD on Apr 06 2022 10:06AM EST Thank you for allowing us to participate in the care of your patient. Should there be any questions regarding this interpretation, please call [phone]. If you are unable to reach us at the number above, please feel free to contact [facility] eRadiology at [phone]. [id number] Normal [facility] Basic Metabolic Panelon 09-2 Anion gap [Moles/Vol] 6 mmol/L Low 9 - 17 mmol/L [facility] Calcium [Mass/Vol] 8.5 mg/dL Low 8.6 - 10.4 mg/dL [employer] [facility] Chloride [Moles/Vol] 108 mmol/L High 98 - 107 mmol/L [facility] CO2 [Moles/Vol] 24 mmol/L 20 - 31 mmol/L [facility] [employer] Creatinine [Mass/Vol] 0.93 mg/dL High 0.5 - 0.9 mg/d L [facility] GFR >60 60 - PINF mL/mi n [facility] GFR Non- >60 60 - PINF m L/min [facility] GFR/1.73 sq M.predicted MDRD (S/P/Bld) [Vol rate/Area] [facility] Comment on above: Average GFR for 60-6 9 years old: 85 mL/min/1.73sq m Chronic Kidney Disease: <60 mL/min/1.73sq m Kidney failure: <15 mL/min/1.73sq m eGFR calculated using average adult body mass. Additional eGFR calculator available at: http://www.[employer]/multiple_crcl_2012.htm Glucose [Mass/Vol] 145 mg/dL High 70 - 99 mg/dL [facility] Interpretation and review of laboratory results Abnormal [facility] Potassium [Moles/Vol] 4.9 mmol/L 3.7 - 5.3 mmol /L [facility] Sodium [Moles/Vol] 138 mmol/L 135 - 144 mmol/L [facility] Urea nitrogen (BldV) [Mass/Vol] 9 mg/dL 8 - 23 mg/dL [facility] Urea nitrogen/Creatinine (Bl d) [Mass ratio] 10 - [facility] Basic Metabolic Profon 02-17 (cont.) Normal [facility] Comment on above: Result Comment: Aver age GFR for 60-69 years old: 85 mL/min/1.73sq m Chronic Kidney Disease: <60 mL/min/1.73sq m Kidney failure: <15 mL/min/1.73sq m eGFR calculated using average adult body mass. Additional eGFR calculator available at: http://www.[employer]/multiple_crcl_2012.htm Performed By: #### C DP, BMP #### [facility] [address] [place], [place] [id number] Disability Case Manager: Jelani Liu MD Anion gap [Moles/Vol] 6 mmol/L Low -17 [facility] Comment on above: Performed By: #### C DP, BMP #### [facility] [address] [place] [address] Disability Case Manager: Jelani Liu MD BUN/CRE Ratio 10 Normal - [facility] Comment on above: Performed By: #### C DP, BMP #### [facility] [address] [place] [address] Disability Case Manager: Jelani Liu MD Calcium [Mass/Vol] 8.5 mg/dL Low 8.6-10.4 [facility] Comment on above: Performed By: #### C DP, BMP #### [facility] [place] [address] Disability Case Manager: Jelani Liu MD Chloride [Moles/Vol] 108 mmol/L High 98-107 [facility] Comment on above: Performed By: #### C DP, BMP #### [facility] [address] [place] [address] Disability Case Manager: Jelani Liu MD CO2 [Moles/Vol] 24 mmol/L Normal 20-31 [facility] Comment on above: Performed By: #### C DP, BMP #### [facility] [address] [place] [address] Disability Case Manager: Jelani Liu MD Creatinine [Mass/Vol] 0.93 mg/dL High 0.50-0.90 [facility] Comment on above: Performed By: #### C DP, BMP #### [facility] [address] [place] [address] Disability Case Manager: Jelani Liu MD GFR, Amer >60 Normal >60 [facility] Comment on above: Performed By: #### C DP, BMP #### [facility] [address] [place] [address] Disability Case Manager: Jelani Liu MD GFR,non Amer >60 Normal >60 [facility] Comment on above: Performed By: #### C DP, BMP #### [facility] [address] [facility] [place] [address] Disability Case Manager: Jelani Liu MD Glucose [Mass/Vol] 145 mg/dL High 70-99 [facility] Comment on above: Performed By: #### C DP, BMP #### [facility] [address] [facility] [place] [address] Disability Case Manager: Jelani Liu MD Potassium [Moles/Vol] 4.9 mmol/L Normal 3.7-5.3 [facility] Comment on above: Performed By: #### C DP, BMP #### [facility] [place] [address] Disability Case Manager: Jelani Liu MD Sodium [Moles/Vol] 138 mmol/L Normal 135-144 [facility] Comment on above: Performed By: #### C DP, BMP #### [facility] [address] [facility] [place] [address] Disability Case Manager: Jelani Liu MD Urea nitrogen [Mass/Vol] 9 mg/dL Normal 8-23 [facility] Comment on above: Performed By: #### C DP, BMP #### [facility] [place] [address] Disability Case Manager: Jelani Liu MD CBC with Auto Differentialon 02-17-2022 Absolute Eos # [facility] Absolute Immature Granulocyte 0.05 [facility] Absolute Lymph # 1.47 [facility] Absolute [place] # 0.63 [facility] Basophils (Bld) [#/Vol] 0.03 10*3/uL [facility] Basophils/100 WBC (Bld) 0 % 0 - 2 % B ON [facility] Eosinophils/100 WBC (Bld) 0 % Low 1 - 4 % [facility] Hematocrit (Bld) [Volume fraction] 32.5 % Low 36.3 - 47.1 % [facility] Hemoglobin (Bld) [Mass/Vol] 9.8 g/dL Low 11.9 - 15.1 g/dL [facility] Immature granulocytes/100 WBC (Bld) 0 % 0 [facility] Interpretation and review of laboratory results Abnormal [facility] Lymphocytes/100 WBC (Bld) 11 % Low 24 - 43 % [facility] MCH (RBC) [Entitic mass] 25.3 pg 25.2 - 33.5 pg [facility] MCHC (RBC) [Mass/Vol] 30.2 g/dL 28.4 - 34.8 g/dL [facility] MCV (RBC) [Entitic vol] 83.8 fL 82.6 - 102.9 fL [facility] Monocytes/100 WBC (Bld) 5 % 3 - 12 % B [facility] NRBC Automated 0.0 0.0 per 100 WBC [facility] Platelet distribution width (Bld) [Ratio] 14.9 % High 11.8 - 14.4 % [facility] Platelet mean volume (Bld) [Entitic vol] 10.6 fL 8.1 - 13.5 fL [facility] Platelets (Bld) [#/Vol] 269 10*3/uL [facility] RBC (Bld) [#/Vol] 3.88 10*6/uL Low 3.95 - 5.1 1 m/uL [facility] RBC (Bld) [#/Vol] ANISOCYTOSIS PRESENT [facility] Segmented neutrophils/100 WBC (Bld) 84 % High 36 - 65 % [facility] Segs Absolute 11.41 High [facility] WBC (Bld) [#/Vol] 13.6 10*3/uL High [facility] CBC with Diffon 02-17-2022 Abs. Basophil 0.03 k/uL Normal 0.00-0.20 [facility] Comment on above: Performed By: #### C DP, BMP #### [facility] [address] [place] [address]. [place] [address] Disability Case Manager: Jelani Liu MD Abs. Eosinophil <0.03 Normal 0.00-0.44 [facility] Comment on above: Performed By: #### C DP, BMP #### [facility] [address] [place] [address]. [place] [address] Disability Case Manager: Jelani Liu MD Abs.Imm.Granulocyte 0.05 k/uL Normal 0.00-0.30 [facility] Comment on above: Performed By: #### C DP, BMP #### [facility] [address] [place] [address] Disability Case Manager: Jelani Liu MD Abs.Neutrophil (Seg) 11.41 k/uL High 1.50-8.10 [facility] Comment on above: Performed By: #### C DP, BMP #### [facility] [address] [place] [address]. [place] [address] Disability Case Manager: Jelani Liu MD Basophils/100 WBC (Bld) 0 % Normal 0-2 M [facility] Comment on above: Performed By: #### C DP, BMP #### [facility] [address] [place] [address] Disability Case Manager: Jelani Liu MD Eosinophils/100 WBC (Bld) 0 % Low 1-4 [facility] Comment on above: Performed By: #### C DP, BMP #### [facility] [address] [place] [address] 10155 Disability Case Manager: Jelani Liu MD Erythrocyte distribution wid th (RBC) [Ratio] 14.9 % High 11.8-14.4 [facility] Comment on above: Performed By: #### C DP, BMP #### [facility] [address] [place] [address] 25858 Disability Case Manager: Jelani Liu MD Hematocrit (Bld) [Volume fraction] 32.5 % Low 3 6.3-47.1 [facility] Comment on above: Performed By: #### C DP, BMP #### [facility] [address] [place] [address]37 Disability Case Manager: Jelani Liu MD Hemoglobin (Bld) [Mass/Vol] 9.8 g/dL Low 11.9-15. 1 [facility] Comment on above: Performed By: #### C DP, BMP #### [facility] [address] [place] [address] Disability Case Manager: Jelani Liu MD Immature granulocytes/100 WBC (Bld) 0 % Normal 0 [facility] Comment on above: Performed By: #### C DP, BMP #### [facility] [address] [place] [address]757 Disability Case Manager: Jelani Liu MD Lymphocytes (Bld) [#/Vol] 1.47 10*3/uL Normal 1.10-3.7 0 [facility] Comment on above: Performed By: #### C DP, BMP #### [facility] [address] [place] [address] Disability Case Manager: Jelani Liu MD Lymphocytes/100 WBC (Bld) 11 % Low 24-43 [facility] Comment on above: Performed By: #### C DP, BMP #### [facility] [address] [place] [address] 76358 Disability Case Manager: Jelani Liu MD MCH (RBC) [Entitic mass] 25.3 pg Normal 25.2-33.5 [facility] Comment on above: Performed By: #### C DP, BMP #### [facility] [place] [address] Disability Case Manager: Jelani Liu MD MCHC (RBC) [Mass/Vol] 30.2 g/dL Normal 28.4-34.8 [facility] Comment on above: Performed By: #### C DP, BMP #### [facility] [address] [place] [address] 57[address] Disability Case Manager: Jelani Liu MD MCV (RBC) [Entitic vol] 83.8 fL Normal 82.6-102.9 [facility] Comment on above: Performed By: #### C DP, BMP #### [facility] [address] [place] [address] 20473 Disability Case Manager: Jelani Liu MD Monocytes (Bld) [#/Vol] 0.63 10*3/uL Normal 0.10-1.20 [facility] Comment on above: Performed By: #### C DP, BMP #### [facility] [address] [place] [address] 18210 Disability Case Manager: Jelani Liu MD Monocytes/100 WBC (Bld) 5 % Normal 3-12 M [facility] Comment on above: Performed By: #### C DP, BMP #### [facility] [address] [place] [address] 79[address] Disability Case Manager: Jelani Liu MD Neutrophil (Seg) 84 % High 36-65 [facility] Comment on above: Performed By: #### C DP, BMP #### [facility] [address] [place] [address] 61060 Disability Case Manager: Jelani Liu MD NRBC Automated 0.0 per 100 WBC Normal 0.0 [facility] Comment on above: Performed By: #### C DP, BMP #### [facility] [address] [place] [address] Disability Case Manager: Jelani Liu MD Platelet mean volume (Bld) [ Entitic vol] 10.6 fL Normal 8.1-13.5 [facility] Comment on above: Performed By: #### C DP, BMP #### [facility] [facility] [place] [address] Disability Case Manager: Jelani Liu MD Platelets (Bld) [#/Vol] 269 10*3/uL Normal 138-453 [facility] Comment on above: Performed By: #### C DP, BMP #### [facility] [place] [address] Disability Case Manager: Jelani Liu MD RBC (Bld) [#/Vol] 3.88 10*6/uL Low 3.95-5.11 [facility] Comment on above: Performed By: #### C DP, BMP #### [facility] [place] [address] Disability Case Manager: Jelani Liu MD RBC morphology finding Nom (Bld) ANISOCYTOSIS PRESENT Normal [facility] Comment on above: Performed By: #### C DP, BMP #### [facility] [address] [place] [address]. [place] [address] Disability Case Manager: Jelani Liu MD WBC (Bld) [#/Vol] 13.6 10*3/uL High 3.5-11.3 [facility] Comment on above: Performed By: #### C DP, BMP #### [facility] [place] [address] Disability Case Manager: Jelani Liu MD FLUORO FOR SURGICAL PROCEDUR ESon 02-16-2022 FLUORO FOR SURGICAL PROCEDURES Radiology exam is complete. No Radiologist dictation. Please follow up with ordering provider. Final result Normal [facility] Radiology exam is complete. No Radiologist dictation. Please follow up with ordering provider. PN RIS CONSOLIDATE D Cult,Urineon 01-28-2022 Cult,Urine Specimen Description .CLEAN CATCH URINE Culture NO SIGNIFICANT GROWTH Report Status FINAL 01/27/2022 Normal [facility] Comment on above: Performed By: #### U RC ####[facility] [address] [place], [place] [id number] lab Director: Jelani Liu [address] [id number] lab Director: Terrance Luevano MD Culture, Urineon 01-27-2022 Bacteria identified Cx Nom (U) NO SIGNIFICANT GROWTH [facility] Specimen Description .CLEAN CATCH URINE [facility] APTTon 01-26-2022 aPTT Coag (Bld) [Time] 25.6 s Normal 23.9-33.8 [facility] Comment on above: Result Comment: IV Heparin Therapy Range: 62.0-94.0 Performed By: #### P T, CDP, PTT, BMP ####[facility] [address] [place], [place] [id number] lab Director: Jelani Liu MD aPTT Coag (Bld) [Time] 25.6 s [facility] Comment on above: IV Heparin Therapy Range: 62.0-94.0 Basic Metabolic Panelon 12-30 Anion gap [Moles/Vol] 10 mmol/L 9 - 17 mmol/L [facility] Mr. Youth Calcium [Mass/Vol] 8.8 mg/dL 8.6 - 10.4 mg/dL [facility] Chloride [Moles/Vol] 104 mmol/L 98 - 107 mmol/L [facility] Mr. Youth CO2 [Moles/Vol] 24 mmol/L 20 - 31 mmol/L [facility] Creatinine [Mass/Vol] 1.01 mg/dL High 0.5 - 0.9 mg/d L [facility] GFR >60 60 - PINF mL/mi n [facility] GFR Non- 55 mL/min Low 60 - PINF m L/min [facility] GFR/1.73 sq M.predicted MDRD (S/P/Bld) [Vol rate/Area] [facility] Comment on above: Average GFR for 60-6 9 years old: 85 mL/min/1.73sq m Chronic Kidney Disease: <60 mL/min/1.73sq m Kidney failure: <15 mL/min/1.73sq m eGFR calculated using average adult body mass. Additional eGFR calculator available at: http://www.[employer]/Versa_crcl_2012.htm Glucose [Mass/Vol] 101 mg/dL High 70 - 99 mg/dL [facility] Interpretation and review of laboratory results Abnormal [facility] Potassium [Moles/Vol] 3.9 mmol/L 3.7 - 5.3 mmol /L [facility] Sodium [Moles/Vol] 138 mmol/L 135 - 144 mmol/L [facility] Urea nitrogen (BldV) [Mass/Vol] 13 mg/dL 8 - 23 mg/dL [facility] Urea nitrogen/Creatinine (Bl d) [Mass ratio] 13 9 - 20 [facility] Basic Metabolic Profon 01-26 (cont.) Normal [facility] Comment on above: Result Comment: Aver age GFR for 60-69 years old: 85 mL/min/1.73sq m Chronic Kidney Disease: <60 mL/min/1.73sq m Kidney failure: <15 mL/min/1.73sq m eGFR calculated using average adult body mass. Additional eGFR calculator available at: http://www.[employer]/Versa_crcl_2012.htm Performed By: #### P T, CDP, PTT, BMP ####[facility] [address] [place], [place] [id number] lab Director: Jelani Liu MD Anion gap [Moles/Vol] 10 mmol/L Normal 9-17 [facility] Comment on above: Performed By: #### P T, CDP, PTT, BMP ####[facility] [address] [facility] [address] Lab Director: Jelani Liu MD BUN/CRE Ratio 13 Normal 9-20 [facility] Comment on above: Performed By: #### P T, CDP, PTT, BMP ####[facility] [address] [facility] [place] [address] Lab Director: Jelani Liu MD Calcium [Mass/Vol] 8.8 mg/dL Normal 8.6-10.4 [facility] Comment on above: Performed By: #### P T, CDP, PTT, BMP ####[facility] [address] [place] [address].[place] [address] Lab Director: Jelani Liu MD Chloride [Moles/Vol] 104 mmol/L Normal 98-107 [facility] Comment on above: Performed By: #### P T, CDP, PTT, BMP ####[facility] [address] [place] [address].[place] [address] Lab Director: Jelani Liu MD CO2 [Moles/Vol] 24 mmol/L Normal 20-31 [facility] Comment on above: Performed By: #### P T, CDP, PTT, BMP ####[facility] [address] [facility], [place] [phone] Director: Jelani Liu MD Creatinine [Mass/Vol] 1.01 mg/dL High 0.50-0.90 [facility] Comment on above: Performed By: #### P T, CDP, PTT, BMP ####[facility] [address] [place] [address].[place] [address] Lab Director: Jelani Liu MD GFR, Amer >60 Normal >60 [facility] Comment on above: Performed By: #### P T, CDP, PTT, BMP ####[facility] [address] [place] [phone] Director: Jelani Liu MD GFR,non Amer 55 mL/min Low >60 [facility] Comment on above: Performed By: #### P T, CDP, PTT, BMP ####[facility] [address] [place] [phone] Director: Jelani Liu MD Glucose [Mass/Vol] 101 mg/dL High 70-99 [facility] Comment on above: Performed By: #### P T, CDP, PTT, BMP ####[facility] [address] [place] [address] Lab Director: Jelani Liu MD Potassium [Moles/Vol] 3.9 mmol/L Normal 3.7-5.3 [facility] Comment on above: Performed By: #### P T, CDP, PTT, BMP ####[facility] [address] [place] [address] Lab Director: Jelani Liu MD Sodium [Moles/Vol] 138 mmol/L Normal 135-144 [facility] Comment on above: Performed By: #### P T, CDP, PTT, BMP ####[facility] [address] [place] [phone] Director: Jelani Liu MD Urea nitrogen [Mass/Vol] 13 mg/dL Normal 8-23 [facility] Comment on above: Performed By: #### P T, CDP, PTT, BMP ####[facility] [address] [place] [phone] Director: Jelani Liu MD CBC with Auto Differentialon 01-26-2022 Absolute Eos # 0.00 SOLO S [facility] Absolute Immature Granulocyte 0.00 [facility] Absolute Lymph # 5.08 High [facility] Comment on above: R/O Chronic Lymphopr oliferative Disorder, recommend peripheral blood Flow Cytometry, if clinically indicated. Absolute [place] # 1.13 [facility] Basophils (Bld) [#/Vol] 0.09 10*3/uL [facility] Basophils/100 WBC (Bld) 1 % 0 - 2 % B ON [facility] Eosinophils/100 WBC (Bld) 0 % Low 1 - 4 % [facility] Hematocrit (Bld) [Volume fraction] 38.1 % 36.3 - 47.1 % [facility] Hemoglobin (Bld) [Mass/Vol] 11.4 g/dL Low 11.9 - 1 5.1 g/dL [facility] Immature granulocytes/100 WB C (Bld) 0 % 0 [facility] Interpretation and review of laboratory results Abnormal [facility] Lymphocytes/100 WBC (Bld) 54 % High 24 - 43 % [facility] MCH (RBC) [Entitic mass] 25.7 pg 25.2 - 33.5 pg [facility] MCHC (RBC) [Mass/Vol] 29.9 g/dL 28.4 - 34.8 g/ dL [facility] MCV (RBC) [Entitic vol] 86.0 fL 82.6 - 102.9 fL [facility] Monocytes/100 WBC (Bld) 12 % 3 - 12 % B ON [facility] NRBC Automated 0.0 0.0 per 100 WBC [facility] Platelet distribution width (Bld) [Ratio] 16.7 % High 11.8 - 14.4 % [facility] Platelet mean volume (Bld) [Entitic vol] 9.6 fL 8.1 - 13.5 fL [facility] Platelets (Bld) [#/Vol] 277 10*3/uL [facility] RBC (Bld) [#/Vol] 4.43 10*6/uL 3.95 - 5.11 m/uL [facility] Segmented neutrophils/100 WB C (Bld) 33 % Low 36 - 65 % [facility] Segs Absolute 3.10 [facility] WBC (Bld) [#/Vol] 9.4 10*3/uL [facility] CBC with Diffon 01-26-2022 Abs. Basophil 0.09 k/uL Normal 0.00-0.20 [facility] Comment on above: Performed By: #### P T, CDP, PTT, BMP ####[facility] [address] [place], [place] [address])[phone] Director: Jelani Liu MD Abs.Imm.Granulocyte 0.00 k/uL Normal 0.00-0.30 [facility] Comment on above: Performed By: #### P T, CDP, PTT, BMP ####[facility] [address] [place], [place] [address])[phone] Director: Jelani Liu MD Abs.Neutrophil (Seg) 3.10 k/uL Normal 1.50-8.10 [facility] Comment on above: Performed By: #### P T, CDP, PTT, BMP ####[facility] [address] [place] [address]([facility])[phone] Director: Jelani Liu MD Basophils/100 WBC (Bld) 1 % Normal 0-2 M [facility] Comment on above: Performed By: #### P T, CDP, PTT, BMP ####[facility] [address] [place] [address]([facility])[phone] Director: Jelani Liu MD Eosinophils (Bld) [#/Vol] 0.00 10*3/uL Normal 0.00-0.4 4 [facility] Comment on above: Performed By: #### P T, CDP, PTT, BMP ####[facility] [address] [place] [address] Lab Director: Jelani Liu MD Eosinophils/100 WBC (Bld) 0 % Low 1-4 [facility] Comment on above: Performed By: #### P T, CDP, PTT, BMP ####[facility] [address] [place] [address] Lab Director: Jelani Liu MD Immature granulocytes/100 WBC (Bld) 0 % Normal 0 [facility] Comment on above: Performed By: #### P T, CDP, PTT, BMP ####[facility] [address] [facility] [place] [address] Lab Director: Jelani Liu MD Lymphocytes (Bld) [#/Vol] 5.08 10*3/uL High 1.10-3.7 0 [facility] Comment on above: Result Comment: R/O Chronic Lymphoproliferative Disorder, recommend peripheral blood Flow Cytometry, if clinically indicated. Performed By: #### P T, CDP, PTT, BMP ####[facility] [address] [facility] [place] [address] Lab Director: Jelani Liu MD Lymphocytes/100 WBC (Bld) 54 % High 24-43 [facility] Comment on above: Performed By: #### P T, CDP, PTT, BMP ####[facility] [address] [facility] [address] Lab Director: Jelani Liu MD Monocytes (Bld) [#/Vol] 1.13 10*3/uL Normal 0.10-1.20 [facility] Comment on above: Performed By: #### P T, CDP, PTT, BMP ####[facility] [address] [place] [address] Lab Director: Jelani Liu MD Monocytes/100 WBC (Bld) 12 % Normal 3-12 M [facility] Comment on above: Performed By: #### P T, CDP, PTT, BMP ####[facility] [address] [place] [address] Lab Director: Jelani Liu MD Neutrophil (Seg) 33 % Low 36-65 [facility] Comment on above: Performed By: #### P T, CDP, PTT, BMP ####[facility] [address] [place] [address] Lab Director: Jelani Liu MD Erythrocyte distribution wid th (RBC) [Ratio] 16.7 % High 11.8-14.4 [facility] Comment on above: Performed By: #### P T, CDP, PTT, BMP ####[facility] [address] [place] [address] Lab Director: Jelani Liu MD Hematocrit (Bld) [Volume fraction] 38.1 % Normal 3 6.3-47.1 [facility] Comment on above: Performed By: #### P T, CDP, PTT, BMP ####[facility] [address] [place] [address] Lab Director: Jelani Liu MD Hemoglobin (Bld) [Mass/Vol] 11.4 g/dL Low 11.9-15. 1 [facility] Comment on above: Performed By: #### P T, CDP, PTT, BMP ####[facility] [address] [place] [address] Lab Director: Jelani Liu MD MCH (RBC) [Entitic mass] 25.7 pg Normal 25.2-33.5 [facility] Comment on above: Performed By: #### P T, CDP, PTT, BMP ####[facility] S[address] [place] [address] Lab Director: Jelani Liu MD MCHC (RBC) [Mass/Vol] 29.9 g/dL Normal 28.4-34.8 [facility] Comment on above: Performed By: #### P T, CDP, PTT, BMP ####[facility] [address] [place] [address] [phone] Director: Jelani Liu MD MCV (RBC) [Entitic vol] 86.0 fL Normal 82.6-102.9 [facility] Comment on above: Performed By: #### P T, CDP, PTT, BMP ####[facility] [address] [place] [address] Lab Director: Jelani Liu MD NRBC Automated 0.0 per 100 WBC Normal 0.0 [facility] Comment on above: Performed By: #### P T, CDP, PTT, BMP ####[facility] [address] [place] [address] Lab Director: Jelani Liu MD Platelet mean volume (Bld) [ Entitic vol] 9.6 fL Normal 8.1-13.5 [facility] Comment on above: Performed By: #### P T, CDP, PTT, BMP ####[facility] [address] [place] [address] Lab Director: Jelani Liu MD Platelets (Bld) [#/Vol] 277 10*3/uL Normal 138-453 [facility] Comment on above: Performed By: #### P T, CDP, PTT, BMP ####[facility] [address] [place] [address] [phone] Director: Jelani Liu MD RBC (Bld) [#/Vol] 4.43 10*6/uL Normal 3.95-5.11 [facility] Comment on above: Performed By: #### P T, CDP, PTT, BMP ####[facility] [address] [facility] [place] [address] Lab Director: Jelani Liu MD WBC (Bld) [#/Vol] 9.4 10*3/uL Normal 3.5-11.3 [facility] Comment on above: Performed By: #### P T, CDP, PTT, BMP ####[facility] [address] [place] [address] Lab Director: Jelani Liu MD MRSA DNA Probe, Nasalon - MRSA, DNA, Nasal Negative NEGATIVE [facility] Comment on above: NEGATIVE: MRSA DNA n ot detected by nucleic acid amplification. Results should be used as an adjunct to nosocomial control efforts to identify patients needing enhanced precautions. The test is not intended to identify patients with staphylococcal infections. Results should not be used to guide or monitor treatment for MRSA infections. Specimen Description .NASAL SWAB [facility] MRSA, DNA, Nasalon MRSA, DNA, Nasal Negative Normal NEG [facility] Comment on above: Result Comment: NEGA TIVE: MRSA DNA not detected by nucleic acid amplification. Results should be used as an adjunct to nosocomial control efforts to identify patients needing enhanced precautions. The test is not intended to identify patients with staphylococcal infections. Results should not be used to guide or monitor treatment for MRSA infections. Performed By: #### M RSANO ####[facility] [address] [place] [address] Lab Director: JOAQUÍN [address] [address] lab Director: Terrance Luevano MD Specimen Description .NASAL SWAB Normal [facility] Comment on above: Performed By: #### M RSANO ####[facility] [address] [place], [place] [phone] Lab Director: JOAQUÍN [facility] [address] [place], [place] [id number] Lab Director: Terrance Luevano MD No Panel Informationon 01-26 [facility] PTon 01-26-2022 INR Coag (PPP) [Relative time] 0.9 {INR} Normal [facility] Comment on above: Result Comment: Non-therapeutic Range: INR = 0.9-1.2 Therapeutic Range: Moderate Anticoagulant Intensity: INR = 2.0-3.0 High Anticoagulant Intensity: INR = 2.5-3.5 Performed By: #### P T, CDP, PTT, BMP #### [facility] [address] [place], [place] [id number] Disability Case Manager: Jelani Liu MD PT Coag (PPP) [Time] 12.1 s Normal 11.5-14.2 [facility] Comment on above: Performed By: #### P T, CDP, PTT, BMP #### [facility] [address] [place] [address] Disability Case Manager: Jelani Liu MD Protime-INRon 01-26-2022 INR Coag (Bld) [Relative time] 0.9 {INR} [facility] Comment on above: Non-therapeutic Range: INR = 0.9-1.2 Therapeutic Range: Moderate Anticoagulant Intensity: INR = 2.0-3.0 High Anticoagulant Intensity: INR = 2.5-3.5 PT Coag (PPP) [Time] 12.1 s [facility] Urinalysison 01-26-2022 Bilirubin Urine Negative NEGATIVE [facility] Color, UA Yellow Yellow [facility] Glucose, Ur Negative NEGATIVE [facility] Interpretation and review of laboratory results Abnormal [facility] Ketones Ql (U) Negative NEGATIVE [facility] Leukocyte esterase Test strip Ql (U) Negative NEGATIVE [facility] Nitrite, Urine Negative NEGATIVE [facility] pH, UA 5.5 5 - 8 [facility] Protein, UA Negative NEGATIVE [facility] Specific [place], UA 1.037 High 1.005 - 1.03 [facility] Turbidity UA Clear Clear [facility] Urinalysis Comments Microscopic exam not performed based on chemical results unless requested in original order. [facility] Urine Hgb Negative NEGATIVE [facility] Urobilinogen, Urine Normal Normal [facility] Urinalysis, Routineon 2021 Bilirubin, SemiQt,Ur Negative Normal NEG [facility] Comment on above: Performed By: #### U A #### [facility] [facility] [facility] [place] [address] Disability Case Manager: Jelani Liu MD Blood, Urine Negative Normal NEG [facility] Comment on above: Performed By: #### U A #### [facility] [address] [place] [address] Disability Case Manager: Jelani Liu MD Clarity (U) Clear Normal CLEAR [facility] Comment on above: Performed By: #### U A #### [facility] [address] [facility] [place] [address] Disability Case Manager: Jelani Liu MD Color (U) Yellow Normal YEL [facility] Comment on above: Performed By: #### U A #### [facility] [address] [facility] [place] [address] Disability Case Manager: Jelani Liu MD Comment Microscopic exam not performed based on chemical results unless requested in Normal [facility] Comment on above: Result Comment: orig inal order. Performed By: #### U A #### [facility] [place] [address] Disability Case Manager: Jelani Liu MD Glucose Ql (U) Negative Normal NEG [facility] Comment on above: Performed By: #### U A #### [facility] [address] [place] [address] Disability Case Manager: Jelani Liu MD Ketones Ql (U) Negative Normal NEG [facility] Comment on above: Performed By: #### U A #### [facility] [address] [facility] [place] [address] Disability Case Manager: Jelani Liu MD Leukocyte esterase Test strip Ql (U) Negative Normal NEG [facility] Comment on above: Performed By: #### U A #### [facility] [address] [facility] [place] [address] Disability Case Manager: Jelani Liu MD Nitrite,Ur Negative Normal NEG [facility] Comment on above: Performed By: #### U A #### [facility] [address] [facility] [place] [address] Disability Case Manager: Jelani Liu MD PH,Ur 5.5 Normal 5.0-8.0 [facility] Comment on above: Performed By: #### U A #### [facility] [place] [address] Disability Case Manager: Jelani Liu MD Protein Ql (U) Negative Normal NEG [facility] Comment on above: Performed By: #### U A #### [facility] [address] [facility] [place] [address] Disability Case Manager: Jelani Liu MD Spec. [place],Ur 1.037 High 1.005-1.030 [facility] Comment on above: Performed By: #### U A #### [facility] [place], [place] [id number] Disability Case Manager: Jelani Liu MD Urobilinogen,Ur Normal Normal NORM [facility] Comment on above: Performed By: #### U A #### [facility] [address] [place] [id number] Disability Case Manager: Jelani Liu MD Activated partial thrombopla stin time (aPTT) in platelet poor plasma by coagulation aOrdered By: Tyrone Villasenor on 12-29-2021 aPTT Coag (PPP) [Time] 31.0 s 25.1-36.5 [facility] Albumin [Mass/volume] in Ser um or PlasmaOrdered By: Tyrone Villasenor on 12-29-2021 Albumin [Mass/Vol] 4.0 g/dL 3.2-5.5 [facility] Albumin [Mass/Vol] 3.5 g/dL 2.9-4.4 [facility] Albumin/Protein.total in 24 hour Urine by ElectrophoresisOrdered By: Tyrone Villasenor on 12-29-2021 Albumin Elph (24H U) [Mass fraction] 27.5 % . [facility] Automated erythrocytes count in urine sediment (number/area)Ordered By: Tyrone Villasenor on 12-29-2021 RBC Auto (Urine sed) [#/Area] 3-4 [HPF] 0-4 [facility] Automated leukocytes count i n urine sediment (number/area)Ordered By: Tyrone Villasenor on 12-29-2021 WBC Auto (Urine sed) [#/Area] None seen [HPF] 0 -4 [facility] Basophils Auto (Bld) [#/Vol] Ordered By: Tyrone Villasenor on 12-29-2021 Basophils (Bld) [#/Vol] 0.1 10*3/uL 0.0-0.2 [facility] Basophils/100 WBC Auto (Bld) Ordered By: Tyrone Villasenor on 12-29-2021 Basophils/100 WBC (Bld) 1.4 % . F [facility] Bilirubin Auto test strip Ql (U)Ordered By: Tyrone Villasenor on 12-29-2021 Bilirubin Ql (U) Negative Negative [facility] Blood hemoglobin measurement (mass/volume)Ordered By: Tyrone Villasenor on 12-29-2021 Hemoglobin (Bld) [Mass/Vol] 12.2 g/dL 11.8-15. 4 [facility] Blood leukocytes automated c ount (number/volume)Ordered By: Tyrone Villasenor on 12-29-2021 WBC (Bld) [#/Vol] 6.9 10*3/uL 4.5-11.0 [facility] Borrelia burgdorferi Ab [Int erpretation] in SerumOrdered By: Tyrone Villasenor on 12-29-2021 B. burgdorferi Ab (S) [Interp] N/A [facility] Borrelia burgdorferi IgG Ab [Presence] in Serum or Plasma by ImmunoassayOrdered By: Tyrone Villasenor on 12-29-2021 B. burgdorferi IgG IA Ql N/A [facility] Borrelia burgdorferi IgG+IgM Ab [Presence] in Serum by ImmunoassayOrdered By: Tyrone Villasenor on 12-29-2021 B. burgdorferi IgG+IgM IA Ql (S) Negative Neg ative [facility] Comment on above: Lyme Antibody Negati ve No laboratory evidence of infection with B. burgdorferi (Lyme disease). Negative results may occur in patients recently infected (less than or equal to 14 days) with B. burgdorferi. If recent infection is suspected, repeat testing on a new sample collected in 7 to 14 days is recommended. Performed at: [facility] [id number] Disability Case Manager: Castro Lugo PhD, Phone: [phone] Borrelia burgdorferi IgM Ab [Presence] in Serum or Plasma by ImmunoassayOrdered By: Tyrone Villasenor on 12-29-2021 B. burgdorferi IgM IA Ql N/A [facility] C reactive protein [Mass/vol ume] in Serum or PlasmaOrdered By: Tyrone Villasenor on 12-29-2021 CRP [Mass/Vol] 1.3 mg/dL 0.0-1.0 [facility] CT biopsyOrdered By: Tyrone Villasenor on 12-29-2021 CT biopsy 4.5 U/L 3.3-10.3 [facility] Comment on above: Performed at: [address] [id number] Disability Case Manager: Castro Lugo PhD, Phone: [phone] Creatine kinase [Enzymatic a ctivity/volume] in Serum or PlasmaOrdered By: Tyrone Villasenor on 12-29-2021 CK [Catalytic activity/Vol] 77 U/L 22-269 [facility] Creatinine and Glomerular fi ltration rate.predicted panel (S/P/Bld)Ordered By: Tyrone Villasenor on 12-29-2021 Creatinine [Mass/Vol] 1.14 mg/dL 0.44-1.03 [facility] Dilute Samuel's viper venom timeOrdered By: Tyrone Villasenor on 12-29-2021 dRVVT Coag (PPP) [Time] 34.3 s 0.0-47.0 [facility] Eosinophils Auto (Bld) [#/Vo l]Ordered By: Tyrone Villasenor on 12-29-2021 Eosinophils (Bld) [#/Vol] 0.1 10*3/uL 0.0-0.45 [facility] Eosinophils/100 WBC Auto (Bl d)Ordered By: Tyrone Villasenor on 12-29-2021 Eosinophils/100 WBC (Bld) 1.3 % . [facility] Erythrocyte distribution wid th Auto (RBC) [Ratio]Ordered By: Tyrone Villasenor on 12-29-2021 Erythrocyte distribution wid th (RBC) [Ratio] 17.9 % 11.9-15.3 [facility] Erythrocyte sedimentation ra te by Photometric methodOrdered By: Tyrone Villasenor on 12-29-2021 ESR Photometric method (Bld) [Velocity] 17 mm/hr 0-29 [facility] Estimated glomerular filtrat ion rate (GFR) non- AmericanOrdered By: Tyrone Villasenor on 12-29-2021 GFR/1.73 sq M.predicted bianca g non-blacks MDRD (S/P/Bld) [Vol rate/Area] 48 mL/Min [facility] Gamma globulin/Protein.total in 24 hour Urine by ElectrophoresisOrdered By: Tyrone Villasenor on 12-29-2021 Gamma globulin Elph (24H U) [Mass fraction] 23.1 % . [facility] Globulin Calc (S) [Mass/Vol] Ordered By: Tyrone Villasenor on 12-29-2021 Globulin (S) [Mass/Vol] 2.4 g/dL F [facility] Hematocrit Auto (Bld) [Volum e fraction]Ordered By: Tyrone Villasenor on 12-29-2021 Hematocrit (Bld) [Volume fraction] 39.0 % 3 4.0-46.4 [facility] Hepatitis B virus surface Ag [Presence] in Serum or Plasma by ImmunoassayOrdered By: Tyrone Villasenor on 12-29-2021 HBV surface Ag IA Ql Negative Negative [facility] IgA [Mass/volume] in Serum o r PlasmaOrdered By: Tyrone Villasenor on 12-29-2021 IgA [Mass/Vol] 137 mg/dL 87-352 [facility] IgG [Mass/volume] in Serum o r PlasmaOrdered By: Tyrone Villasenor on 12-29-2021 IgG [Mass/Vol] 524 mg/dL 586-1602 [facility] IgM [Mass/volume] in Serum o r PlasmaOrdered By: Tyrone Villasenor on 12-29-2021 IgM [Mass/Vol] 373 mg/dL 26-217 [facility] Immunofixation for UrineOrde red By: Tyrone Villasenor on 12-29-2021 Interpretation Immunofixatio n (U) [Interp] See comment . [facility] Comment on above: No monoclonality det ected. Performed at: - [address] [id number] Disability Case Manager: Castro Lugo PhD, Phone: [phone] Ketones Auto test strip (U) [Mass/Vol]Ordered By: Tyrone Villasenor on 12-29-2021 Ketones (U) [Mass/Vol] Negative Negative [facility] - Chemistry and C hemistry - challengeOrdered By: Tyrone Villasenor on 12-29-2021 Cobalamin (Vitamin B12) [Mass/Vol] 193 pg/mL 180-914 [facility] Laboratory - CoagulationOrde red By: Tyrone Villasenor on 12-29-2021 PT Coag (PPP) [Time] 10.4 s 9.0-12.9 [facility] Laboratory - Hematology and Cell countsOrdered By: Tyrone Villasenor on 12-29-2021 Nucleated RBC/100 WBC (Bld) [Ratio] 0.0 % 0-0.5 [facility] Laboratory - UrinalysisOrder ed By: Tyrone Villasenor on 12-29-2021 Hyaline casts LM Ql (Urine sed) 0-8 [LPF] 0-8 [facility] Lupus anticoagulant [Interpr etation] in Platelet poor plasmaOrdered By: Tyrone Villasenor on 12-29-2021 Lupus anticoagulant (PPP) [Interp] Comment: . [facility] Comment on above: No lupus anticoagula nt was detected. Performed at: [facility] [address] [id number] Disability Case Manager: Bharath Linares MD, Phone: [phone] Lymphocytes Auto (Bld) [#/Vo l]Ordered By: Tyrone Villasenor on 12-29-2021 Lymphocytes (Bld) [#/Vol] 3.1 10*3/uL 1.00-4.8 [facility] Lymphocytes/100 WBC Auto (Bl d)Ordered By: Tyrone Villasenor on 12-29-2021 Lymphocytes/100 WBC (Bld) 44.5 % . [facility] MCH Auto (RBC) [Entitic mass ]Ordered By: Tyrone Villasenor on 12-29-2021 MCH (RBC) [Entitic mass] 25.6 pg 24.7-34.3 [facility] MCHC Auto (RBC) [Mass/Vol]Or dered By: Tyrone Villasenor on 12-29-2021 MCHC (RBC) [Mass/Vol] 31.4 g/dL 32.0-35.0 [facility] MCV Auto (RBC) [Entitic vol] Ordered By: Tyrone Villasenor on 12-29-2021 MCV (RBC) [Entitic vol] 81.7 fL 80-100 F [facility] Monocytes Auto (Bld) [#/Vol] Ordered By: Tyrone Villasenor on 12-29-2021 Monocytes (Bld) [#/Vol] 0.8 10*3/uL 0.0-0.8 [facility] Monocytes/100 WBC Auto (Bld) Ordered By: Tyrone Villasenor on 12-29-2021 Monocytes/100 WBC (Bld) 11.6 % . F [facility] Neutrophils Auto (Bld) [#/Vo l]Ordered By: Tyrone Villasenor on 12-29-2021 Neutrophils (Bld) [#/Vol] 2.8 10*3/uL 1.8-7.7 [facility] Neutrophils/100 WBC Auto (Bl d)Ordered By: Tyrone Villasenor on 12-29-2021 Neutrophils/100 WBC (Bld) 41.2 % . [facility] No Panel InformationOrdered By: Tyrone Villasenor on 12-29-2021 Estimated GFR () 58 mL/Min [facility] Comment on above: GFR estimated refere nce range: According to KDOQI guidelines, <60 ml/min/1.73m2 is sufficient to diagnose a patient with chronic kidney disease. Hepatitis B Core Total Antibody Negative Nega tive [facility] Comment on above: Performed at: [facility] [employer] [facility] [address] [id number] Disability Case Manager: Castro Lugo PhD, Phone: [phone] Hepatitis C Interpretation See comment . [facility] Comment on above: Negative Not infected with HCV, unless recent infection is suspected or other evidence exists to indicate HCV infection. Hepatitis C RNA Quantitative N/A [facility] Creatinine Clearanc e (Chem N/A [facility] Protein Electrophoresis M-Luis Comment: g/dL N ot Observed [facility] Comment on above: ASYMMETRICAL GAMMA Protein Electrophoresis Note See comment . [facility] Comment on above: Protein electrophore sis scan will follow via computer, mail, or hydrant setter delivery. Performed at: [employer] [facility] [address] [id number] Disability Case Manager: Castro Lugo PhD, Phone: [phone] Serum Immunofixation Comment: . [facility] Comment on above: Presence of monoclon al protein is unclear at this time. Suggest repeat in 3 to 6 months if clinically indicated. Total Complement (CH50) 60 U/mL >41 F [facility] Comment on above: Age Male Female 1 - 30 days Not Estab. Not Estab. 31 days - 6 months >32 >20 7 months - 17 years >39 >39 >17 years >41 >41 NOTE: The adult ( >17 years ) reference interval range is used to flag abnormals on this report. If the patient is 17 years old or younger, use the table above to determine out of range values. Performed at: - [facility] [id number] Disability Case Manager: Castro Lugo PhD, Phone: [phone] Urine Random Prot Electrophor Note See comment . [facility] Comment on above: Protein electrophore sis scan will follow via computer, mail, or hydrant setter delivery. Platelet mean volume Auto (B ld) [Entitic vol]Ordered By: Tyrone Villasenor on 12-29-2021 Platelet mean volume (Bld) [Entitic vol] 8.9 fL 6.3-10.7 [facility] Platelet poor plasma interna tional normalized ratio (INR) by coagulation assay (relatOrdered By: Tyrone Villasenor on 12-29-2021 INR Coag (PPP) [Relative time] 0.9 {INR} [facility] Comment on above: INR Therapeutic Rang e A) Pre- and Peroperative OAT started two weeks before surgery. NOT HIP SURGERY: 1.5 - 2.5 HIP SURGERY: 2 - 3 B) Primary and secondary prevention of venous THROMBOSIS: 2 - 3 C) Active venous thrombosis, pulmonary embolism and prevention of recurrent venous thrombosis: 2 - 3 D) Prevention of arterial thromboembolism including patients with mechanical heart valves: 3 - 4.5 Platelet poor plasma ratio o f lupus anticoagulant-sensitive activated partial thromboOrdered By: Tyrone Villasenor on 12-29-2021 aPTT.lupus sensitive.excess phospholipid actual/normal Coag (PPP) [Relative time] 34.6 sec 0.0-47.6 [facility] Platelets Auto (Bld) [#/Vol] Ordered By: Tyrone Villasenor on 12-29-2021 Platelets (Bld) [#/Vol] 288 10*3/uL 150-450 [facility] Protein Auto test strip (U) [Mass/Vol]Ordered By: Tyrone Villasenor on 12-29-2021 Protein (U) [Mass/Vol] Negative Negative [facility] Protein [Mass/volume] in Ser um or PlasmaOrdered By: Tyrone Villasenor on 12-29-2021 Protein [Mass/Vol] 6.4 g/dL 6.0-8.5 [facility] Protein [Mass/volume] in Uri neOrdered By: Tyrone Villasenor on 12-29-2021 Protein (U) [Mass/Vol] 6.1 mg/dL Not Estab. Fi [facility] Protein.monoclonal/Protein.t otal in 24 hour Urine by ElectrophoresisOrdered By: Tyrone Villasenor on 12-29-2021 Protein.monoclonal Elph (24H U) [Mass fraction] Not observed % Not Observed [facility] RBC Auto (Bld) [#/Vol]Ordere d By: Tyrone Villasenor on 12-29-2021 RBC (Bld) [#/Vol] 4.77 10*6/uL 3.60-5.00 [facility] Reagin Ab [Presence] in Seru m by RPROrdered By: Tyrone Villasenor on 12-29-2021 Reagin Ab RPR Ql (S) Non-Reactive Non Reactive [facility] Comment on above: Performed at: [place] [id number] Disability Case Manager: Castro Lugo PhD, Phone: [phone] Serum globulin measurement ( mass/volume)Ordered By: Tyrone Villasenor on 12-29-2021 Globulin (S) [Mass/Vol] 2.9 g/dL 2.2-3.9 F [facility] Serum hepatitis B virus surf shellie antibody detectionOrdered By: Tyrone Villasenor on 12-29-2021 HBV surface Ab Ql (S) Non-Reactive . F [facility] Comment on above: Non Reactive: Incons istent with immunity, less than 10 mIU/mL Reactive: Consistent with immunity, greater than 9.9 mIU/mL Serum homogeneous pattern an tinuclear antibody (PATRICIA) titerOrdered By: Tyrone Villasenor on 12-29-2021 Homogenous nuclear Ab pattern (S) [Titer] N/A [facility] Serum nuclear antibody titer Ordered By: Tyrone Villasenor on 12-29-2021 Nuclear Ab (S) [Titer] Negative . [facility] Comment on above: Negative <1:80 Borderline 1:80 Positive >1:80 ICAP nomenclature: AC-0 For more information about Hep-2 cell patterns use ANApatterns.org, the official website for the International Consensus on Antinuclear Antibody (PATRICIA) Patterns (ICAP). Performed at: [facility] [address] [id number] Disability Case Manager: Castro Lugo PhD, Phone: [phone] Serum or plasma alanine schroeder otransferase measurement without P-5'-P (enzymatic activiOrdered By: Tyrone Villasenor on 12-29-2021 ALT No additional P-5'-P [Ca talytic activity/Vol] 20 U/L 10-60 [facility] Serum or plasma albumin/glob ulin mass ratioOrdered By: Tyrone Villasenor on 12-29-2021 Albumin/Globulin [Mass ratio] 1.7 {ratio} [facility] Albumin/Globulin [Mass ratio] 1.2 {ratio} 0.7-1 .7 [facility] Serum or plasma alkaline michelle sphatase measurement (enzymatic activity/volume)Ordered By: Tyrone Villasenor on 12-29-2021 ALP [Catalytic activity/Vol] 57 U/L 32-92 [facility] Serum or plasma alpha 1 glob ulin measurement by electrophoresis (mass/volume)Ordered By: Tyrone Villasenor on 12-29-2021 Alpha 1 globulin Elph [Mass/Vol] 0.2 g/dL 0.0 -0.4 [facility] Serum or plasma alpha 2 glob ulin measurement by electrophoresis (mass/volume)Ordered By: Tyrone Villasenor on 12-29-2021 Alpha 2 globulin Elph [Mass/Vol] 0.8 g/dL 0.4 -1.0 [facility] Serum or plasma aspartate am inotransferase measurement (enzymatic activity/volume)Ordered By: Tyrone Villasenor on 12-29-2021 AST [Catalytic activity/Vol] 22 U/L 10-42 [facility] Serum or plasma beta globuli n measurement by electrophoresis (mass/volume)Ordered By: Tyrone Villasenor on 12-29-2021 Beta globulin Elph [Mass/Vol] 1.1 g/dL 0.7-1. 3 [facility] Serum or plasma calcium lola urement (mass/volume)Ordered By: Tyrone Villasenor on 12-29-2021 Calcium [Mass/Vol] 9.7 mg/dL 8.2-10.2 [facility] Serum or plasma chloride catia surement (moles/volume)Ordered By: Tyrone Villasenor on 12-29-2021 Chloride [Moles/Vol] 101 mmol/L 95-114 [facility] Serum or plasma chromatin an tibody assay (units/volume)Ordered By: Tyrone Villasenor on 12-29-2021 Chromatin Ab Qn <0.2 AI 0.0-0.9 [facility] Comment on above: Performed at: [facility] [address] [id number] Disability Case Manager: Castro Lugo PhD, Phone: [phone] Serum or plasma complement C 3 measurement (mass/volume)Ordered By: Tyrone Villasenor on 12-29-2021 Complement C3 [Mass/Vol] 133 mg/dL 82-167 [facility] Comment on above: Performed at: [facility] [address] [id number] Disability Case Manager: Castro Lugo PhD, Phone: [phone] Serum or plasma complement C 4 measurement (mass/volume)Ordered By: Tyrone Villasenor on 12-29-2021 Complement C4 [Mass/Vol] 27 mg/dL 12-38 [facility] Serum or plasma gamma globul in measurement by electrophoresis (mass/volume)Ordered By: Tyrone Villasenor on 12-29-2021 Gamma globulin Elph [Mass/Vol] 0.7 g/dL 0.4-1 .8 [facility] Serum or plasma glucose lola urement (mass/volume)Ordered By: Tyrone Villasenor on 12-29-2021 Glucose [Mass/Vol] 101 mg/dL 70-100 [facility] Comment on above: ADA recommended refe rence range Random Glucose Reference Range is dependent on time and content of last meal. Glucose of more than 200 mg/dL in a nonstressed, ambulatory subject supports the diagnosis of Diabetes Mellitus. Serum or plasma hepatitis C virus antibody signal/cutoff ratio by immunoassay (relatiOrdered By: Tyrone Villasenor on 12-29-2021 HCV Ab Signal/Cutoff IA [Rel units/Vol] 0.1 s/co ratio 0.0-0.9 [facility] Serum or plasma potassium me asurement (moles/volume)Ordered By: Tyrone Villasenor on 12-29-2021 Potassium [Moles/Vol] 4.4 mmol/L 3.5-5.1 [facility] Serum or plasma sodium measu rement (moles/volume)Ordered By: Tyrone Villasenor on 12-29-2021 Sodium [Moles/Vol] 137 mmol/L 136-146 [facility] Serum or plasma thyroglobuli n antibody assay (units/volume)Ordered By: Tyrone Villasenor on 12-29-2021 Thyroglobulin Ab Qn [IU]/mL 0.0-0.9 [facility] Comment on above: Thyroglobulin Antibo dy measured by Percy Kenny Methodology Performed at: [facility] [address] [id number] Disability Case Manager: Castro Lugo PhD, Phone: [phone] Serum or plasma thyroperoxid ase antibody assay (units/volume)Ordered By: Tyrone Villasenor on 12-29-2021 TPO Ab Qn 28 [IU]/mL 0-34 [facility] Comment on above: Performed at: [facility] [address] [id number] Disability Case Manager: Castro Lugo PhD, Phone: [phone] Serum or plasma total biliru bin measurement (mass/volume)Ordered By: Tyrone Villasenor on 12-29-2021 Bilirubin [Mass/Vol] 0.5 mg/dL 0.3-1.2 [facility] Serum or plasma total carbon dioxide measurement (moles/volume)Ordered By: Tyrone Villasenor on 12-29-2021 CO2 [Moles/Vol] 23.4 mmol/L 22.0-30.0 [facility] Serum or plasma urea nitroge n measurement (mass/volume)Ordered By: Tyrone Villasenor on 12-29-2021 Urea nitrogen [Mass/Vol] 8 mg/dL 9-23 [facility] Squamous epithelial cells de tection in urine sediment by light microscopyOrdered By: Tyrone Villasenor on 12-29-2021 Epithelial cells.squamous LM Ql (Urine sed) None seen [HPF] 0-2 [facility] TSH DL <= 0.005 mIU/L QnOrde red By: Tyrone Villasenor on 12-29-2021 TSH Qn 1.83 m[IU]/L 0.45-5.33 [facility] TT plasOrdered By: Tyrone akers on 12-29-2021 Thrombin time Coag (PPP) [Time] 19.1 sec 0.0- 23.0 [facility] Thyroxine (T4) free [Mass/vo lume] in Serum or PlasmaOrdered By: Tyrone Villasenor on 12-29-2021 Free T4 [Mass/Vol] 0.98 ng/dL 0.61-1.12 [facility] Urine alpha 1 globulin/total protein by electrophoresisOrdered By: Tyrone Villasenor on 12-29-2021 Alpha 1 globulin Elph (U) [Mass fraction] 3.9 % . [facility] [facility] Urine alpha 2 globulin/total protein ratio by electrophoresisOrdered By: Tyrone Villasenor on 12-29-2021 Alpha 2 globulin Elph (U) [M ass fraction] 19.7 % . [facility] Urine appearanceOrdered By: Tyrone Villasenor on 12-29-2021 Appearance (U) Clear Clear [facility] Urine bacteria detection by automated methodOrdered By: Tyrone Villasenor on 12-29-2021 Bacteria Auto Ql (U) None seen None Seen [facility] Urine beta globulin measurem ent by electrophoresis (mass/volume)Ordered By: Tyrone Villasenor on 12-29-2021 Beta globulin Elph (U) [Mass/Vol] 25.8 % . [facility] Urine colorOrdered By: Parmjit Villasenor on 12-29-2021 Color (U) Yellow Yellow [facility] Urine glucose measurement by automated test strip (mass/volume)Ordered By: Tyrone Villasenor on 12-29-2021 Glucose Auto test strip (U) [Mass/Vol] Normal mg/dL Normal [facility] Urine hemoglobin detection b y automated test stripOrdered By: Tyrone Villasenor on 12-29-2021 Hemoglobin Auto test strip Ql (U) Negative Ne gative [facility] Urine leukocyte esterase det ection by automated test stripOrdered By: Tyrone Villasenor on 12-29-2021 Leukocyte esterase Auto test strip Ql (U) Negative Negative [facility] Urine nitrite detection by a utomated test stripOrdered By: Tyrone Villasenor on 12-29-2021 Nitrite Auto test strip Ql (U) Negative Negat chava [facility] Urobilinogen Auto test strip (U) [Mass/Vol]Ordered By: Tyrone Villasenor on 12-29-2021 Urobilinogen (U) [Mass/Vol] Normal mg/dL Normal [facility] aPTT.lupus sensitive (LA scr een)Ordered By: Tyrone Villasenor on 12-29-2021 aPTT.lupus sensitive Coag (P PP) [Time] 31.9 sec 0.0-51.9 [facility] aPTT.lupus sensitive/aPTT.marcial pus sensitive W excess phospholipid (screen to confirm raOrdered By: Tyrone Villasenor on 12-29-2021 aPTT.lupus sensitive/aPTT.marcial pus sensitive W excess phospholipid Coag (PPP) [Ratio] 1.17 Ratio 0.00-1.34 [facility] pH Auto test strip (U)Ordere d By: Tyrone Villasenor on 12-29-2021 pH (U) 1.020 [pH] 1.001-1.030 [facility] pH (U) 6.5 [pH] 5.0-9.0 [facility] CREATININEon 12-26-2021 Creatinine [Mass/Vol] 1.20 mg/dL Critically high 0.55-1.02 [facility] Comment on above: Performed By: #### C HUMBERTO #### [facility] [address] [address] [address] Barrington Gomez EGFR-AF GIBRALTARIAN 55 mL/min/1.73m2 Critically low >=60 [facility] Comment on above: Performed By: #### C HUMBERTO #### [facility] [address] [address] [address] Barrington Gomez EGFR-NON AF GIBRALTARIAN 45 mL/min/1.73m2 Critically low >=60 [facility] Comment on above: Performed By: #### C HUMBERTO #### [facility] [address] [address] [address] ABD/PELV W CONon 12-27-[address] ABD/PELV W CON EXAMINATION: CT ABD/ PELV W CON, 12/26/2021 7:27 AM EDT HISTORY: Left lower quadrant pain COMPARISON: KUB 01/28/2021, spinal MRI 08/06/2021 TECHNIQUE: CT of the abdomen, and pelvis was performed following administration of IV contrast. Oral contrast was administered prior to the examination. Dose reduction techniques were achieved by using automated exposure control and/or adjustment of mA and/or kV according to patient size and/or use of iterative reconstruction technique. FINDINGS: Lung Bases: Normal. Liver: Normal. Biliary tree: Normal. Gallbladder: Normal. Spleen: Normal. Pancreas: Normal. Adrenal glands: Normal. Kidneys and ureters: 2-3 mm nonobstructing intrarenal nephrolithiasis within the right kidney. Simple left renal cyst. Bladder: No focal abnormality noting streak artifact from the patient's right hip prosthesis somewhat limits evaluation. Reproductive organs: Hysterectomy. No suspicious adnexal mass. Gastrointestinal tract: Nondilated. The appendix is normal. Colonic diverticulosis without acute diverticulitis. Probable diminutive hiatal hernia. Peritoneum/retroperitoneum: No free fluid or gas. Vasculature: Minimal atherosclerosis without aneurysm. Lymph nodes: Normal. Abdominal wall: Fat-containing umbilical hernia. Musculoskeletal: Degenerative change of the spine. Minimal unchanged compression deformity of the L1 vertebral body (less than 25% vertebral body height loss). Lateral fixation of L4-L5. Right hip prosthesis. IMPRESSION: 1. No acute intra-abdominal abnormality. Diverticulosis without findings of acute diverticulitis. 2. Nonobstructing 2-3 mm intrarenal nephrolithiasis within the right kidney. Electronically authenticated by: DEREK COLLINS Date: 2021-12-26 15:19 Normal [facility] CULTURE URINEon 11-28-2021 CULTURE URINE Culture Observations : No growth Normal The [facility] Comment on above: Performed By: #### U AMIC #### [facility] [address] [place] [address] Dr. Barrington Gomez UA RANDOM W/MICROSCOPICon BACTERIA TRACE Abnormal NONE SEEN [facility] Comment on above: Performed By: #### U AMIC #### [facility] [address] [place] [address] Dr. Barrington Gomez Bilirubin Ql (U) Negative Normal NEGATIVE [facility] Comment on above: Performed By: #### U AMIC #### [facility] [address] [place] [address] Dr. Barrington Gomez CAST SEEN Abnormal NONE SEEN The [facility] Comment on above: Performed By: #### U AMIC #### [facility] [address] [place] [address] Dr. Barrington Gomez Clarity (U) CLEAR Normal CLEAR [facility] Comment on above: Performed By: #### U AMIC #### [facility] [address] [place] [address] Dr. Barrington Gomez Color (U) YELLOW Normal YELLOW [facility] Comment on above: Performed By: #### U AMIC #### [facility] [address] [place] [address] Dr. Barrington Gomez Crystals LM Nom (Urine sed) NONE SEEN Normal NONE SEE N [facility] Comment on above: Performed By: #### U AMIC #### [facility] [address] [place] [address] Dr. Barrington Gomez Epithelial cells LM Ql (Urine sed) RARE Normal N ONE SEEN /RARE [facility] Comment on above: Performed By: #### U AMIC #### [facility] [address] [place] [address] Dr. Barrington Gomez Glucose Ql (U) Negative Normal NEGATIVE [facility] [place] [facility] Comment on above: Performed By: #### U AMIC #### [facility] [address] [place] [address] Dr. Barrington Gomez Hemoglobin Ql (U) Negative Normal NEGATIVE The [facility] Comment on above: Performed By: #### U AMIC #### [facility] [address] [address] [address] Barrington Gomez Ketones Ql (U) Negative Normal NEGATIVE [facility] [place] [facility] Comment on above: Performed By: #### U AMIC #### [facility] [address] [place] [address] Dr. Barrington Gomez LEUKOCYTES Negative Normal NEGATIVE [facility] Comment on above: Performed By: #### U AMIC #### [facility] [address] [place] [address] Dr. Barrington Gomez MUCOUS SMALL Abnormal NONE SEEN [facility] Comment on above: Performed By: #### U AMIC #### [facility] [address] [place] [address] Dr. Barrington Gomez Nitrite Ql (U) Negative Normal NEGATIVE [facility] [place] [facility] Comment on above: Performed By: #### U AMIC #### [facility] [address] [place] [address] Dr. Barrington Gomez pH (U) 5.5 [pH] Normal 5-9 [facility] Comment on above: Performed By: #### U AMIC #### [facility] [address] [place] [address] Dr. Barrington Gomez RBC NONE SEEN Abnormal 0-2 [facility] Comment on above: Performed By: #### U AMIC #### [facility] [address] [place] [address] Dr. Barrington Gomez SPEC GRAVITY >=1.030 Abnormal 1.005-<=1.[address] [facility] Comment on above: Performed By: #### U AMIC #### [facility] [address] [place] [address] Dr. Barrington Gomez UA PROTEIN Negative Normal NEGATIVE/ TRACE [facility] Comment on above: Performed By: #### U AMIC #### [facility] [address] [place] [address] Dr. Barrington Gomez Urobilinogen Qn (U) 0.2 {Antionette'U}/dL Normal 0.2 - 1. 0 [facility] Comment on above: Performed By: #### U AMIC #### [facility] [address], [place] [address] Dr. Barrington Gomez WBC 0-2 Abnormal NONE SEEN [facility] Comment on above: Performed By: #### U AMIC #### [facility] [address], [place] [address] Dr. Barrington Gomez US KIDNEYS BLADDERon 022 US KIDNEYS BLADDER EXAM: US KIDNEYS ASHWIN DDER HISTORY: H/O: urinary disease COMPARISON: CT of the chest and upper abdomen 01/10/2021 FINDINGS: The right kidney measures 10 cm Left kidney measures 10 cm No hydronephrosis. Incidental exophytic cyst left kidney midportion measures 14 x 13 x 15 mm partially imaged on previous CT chest and upper abdomen 01/10/2021 benign with no follow-up required The urinary bladder is unremarkable. Prevoid bladder volume 131 cc. Postvoid bladder volume is 0 IMPRESSION: No hydronephrosis Incidental left renal cyst. Electronically authenticated by: FELISHA BARROW Date: 2021-11-21 15:46 Normal [facility] UA DIP, URINE (POC)on 2021 BILIRUBIN UA (POCT) Negative Negative [facility] CLARITY UA (POCT) Clear [facility] COLOR UA (POCT) Yellow [facility] GLUCOSE UA (POCT) Negative Negative mg/dL [facility] HEMOGLOBIN/BLOOD UA (POCT) Negative Negative [facility] KETONE UA (POCT) Negative Negative mg/dL [facility] LEUKOCYTES UA (POCT) Negative Negative [facility] NITRITE UA (POCT) Negative Negative [facility] PH UA (POCT) 5.0 4.5 - 8.0 [facility] inic Protein Ql (U) Negative Negative mg/dL [facility] SPECIFIC GRAVITY UA (POCT) 1.020 1.005 - 1 .030 [facility] UROBILINOGEN UA (POCT) 0.2 E.U./dL Normal E.U./ dL [facility] CULTURE URINEon 11-14-2021 CULTURE URINE Culture Observations : GREATER THAN TWO ORGANISMS PRESENT. PLEASE RESUBMIT CLEAN CATCH MID-STREAM URINE IF CLINICALLY INDICATED. Normal [facility] Comment on above: Performed By: #### U AMIC #### [facility] [address] [place] [address] Dr. Barrington Gomez UA RANDOM W/MICROSCOPICon BACTERIA NONE SEEN Normal NONE SEEN [facility] Comment on above: Performed By: #### U AMIC #### [facility] [address] [place] [address] Dr. Barrington Goemz Bilirubin Ql (U) Negative Normal NEGATIVE [facility] Comment on above: Performed By: #### U AMIC #### [facility] [address] [place] [address] Dr. Barrington Gomez CAST NONE SEEN Normal NONE SEEN [facility] Comment on above: Performed By: #### U AMIC #### [facility] [address] [place] [address] Dr. Barrington Gomez Clarity (U) SL CLOUDY Abnormal CLEAR [facility] Comment on above: Performed By: #### U AMIC #### [facility] [address] [place] [address] Dr. Barrington Gomez Color (U) YELLOW Normal YELLOW [facility] Comment on above: Performed By: #### U AMIC #### [facility] [address] [place] [address] Dr. Barrington Gomez Crystals LM Nom (Urine sed) NONE SEEN Normal NONE SEE N [facility] Comment on above: Performed By: #### U AMIC #### [facility] [address] [place] [address] Dr. Barrintgon Gomez Epithelial cells LM Ql (Urine sed) RARE Normal N ONE SEEN /RARE [facility] Comment on above: Performed By: #### U AMIC #### [facility] [address] [place] [address] Dr. Barrington Gomez Glucose Ql (U) Negative Normal NEGATIVE [facility] [place] [facility] Comment on above: Performed By: #### U AMIC #### [facility] [address] [place] [address] Dr. Barrington Gomez Hemoglobin Ql (U) Negative Normal NEGATIVE The [facility] Comment on above: Performed By: #### U AMIC #### [facility] [address] [address] [address] Barrington Gomez Ketones Ql (U) Negative Normal NEGATIVE [facility] [place] [facility] Comment on above: Performed By: #### U AMIC #### [facility] [address] [place] [address] Dr. Barrington Gomez LEUKOCYTES Negative Normal NEGATIVE [facility] Comment on above: Performed By: #### U AMIC #### [facility] [address] [place] [address] Dr. Barrington Gomez MUCOUS TRACE Abnormal NONE SEEN [facility] Comment on above: Performed By: #### U AMIC #### [facility] [address] [place] [address] Dr. Barrington Gomez Nitrite Ql (U) Negative Normal NEGATIVE [facility] [place] [facility] Comment on above: Performed By: #### U AMIC #### [facility] [address] [place] [address] Dr. Barrington Gomez pH (U) 5.5 [pH] Normal 5-9 [facility] Comment on above: Performed By: #### U AMIC #### [facility] [address] [place] [address] Dr. Barrington Gomez RBC 0-2 Normal 0-2 [facility] Comment on above: Performed By: #### U AMIC #### [facility] [address] [place] [address] Dr. Barrington Gomez SPEC GRAVITY 1.025 Normal 1.005-<=1.[address] [facility] Comment on above: Performed By: #### U AMIC #### [facility] [address] [place] [address] Dr. Barrington Gomez UA PROTEIN Negative Normal NEGATIVE/ TRACE [facility] Comment on above: Performed By: #### U AMIC #### [facility] [address] [place] [address] Dr. Barrington Gomez Urobilinogen Qn (U) 0.2 {Antionette'U}/dL Normal 0.2 - 1. 0 [facility] Comment on above: Performed By: #### U AMIC #### [facility] [address] [place] [address] Dr. Barrington Gomez WBC NONE SEEN Normal NONE SEEN [facility] Comment on above: Performed By: #### U AMIC #### [facility] [address] [place] [address] Dr. Barrington Gomez CREATININEon 11-04-2021 Creatinine [Mass/Vol] 1.06 mg/dL Critically high 0.55-1.02 [facility] Comment on above: Performed By: #### G ENTR, CREA #### [facility] [address] [place] [address] Dr. Barrington Gomez EGFR-AF GIBRALTARIAN >60 Normal >=60 [facility] Comment on above: Performed By: #### G ENTR, CREA #### [facility] [address] [place] [address] Dr. Barrington Gomez EGFR-NON AF GIBRALTARIAN 52 mL/min/1.73m2 Critically low >=60 [facility] Comment on above: Performed By: #### G ENTR, CREA #### [facility] [address] [place] [address] Dr. Barrington Gomez GENTAMICIN RANDOMon 11-05-19 22 GENTAMICIN 5.2 ug/mL Normal [facility] Comment on above: Performed By: #### G ENTR, CREA #### [facility] [address] [place] [address] Dr. Barrington Gomez CULTURE URINEon 10-22-2021 CULTURE URINE Isolate 1 Escherichia coli >100,000 cfu/ml of ORGANISM 1 Escherichia coli ANTIBIOTIC M.I.C RX STATUS Ampicillin >=32 R F Ampicillin/Sulbactam 16 I F Piperacillin/Tazobactam <=4 S F Cefazolin >=64 R F Ceftazidime 8 R F Ceftriaxone >=64 R F Ertapenem <=0.5 S F Imipenem <=0.25 S F Amikacin <=2 S F Gentamicin <=1 S F Tobramycin <=1 S F Ciprofloxacin >=4 R F Levofloxacin >=8 R F Nitrofurantoin <=16 S F Trimethoprim/Sulfamethoxazole >=320 R F Normal [facility] Comment on above: Performed By: #### U [facility] #### [facility] [address] [address] [address] Barrington Gomez MRI FOOT LT WO CONon 05-25-2 022 MRI FOOT LT WO CON EXAM: MRI FOOT LT WO CON COMPARISON: Left foot and ankle x-rays from 10/01/2021. HISTORY: Medial left foot and ankle pain and swelling. No recent injury. TECHNIQUE: Multiplanar and multisequence imaging of the left foot and ankle was performed without contrast. FINDINGS: No acute fracture or dislocation is identified. The distal tibia and fibula are intact. There is no OCD lesion involving the talar dome. There is mild spurring of the tibiotalar joint and mild diffuse degenerative change involving the midfoot and subtalar joint with joint space narrowing and spurring. Moderate to severe degenerative change involves the second tarsometatarsal joint more pronounced dorsally with articular cartilage loss, joint space narrowing, and subarticular cystic change. Mild to moderate degenerative change involves the third and fourth tarsometatarsal joints. There is also mild to moderate joint space narrowing and mild spurring involving the first metatarsophalangeal joint. No metatarsal stress fracture is identified. Intermediate signal of the Achilles tendon is consistent with mild tendinopathy. There is flattening and fraying of the retromalleolar portion of the peroneus brevis with mild tendinopathy and intermediate signal involving the peroneal tendons. There is an accessory navicular bone along the posterior medial aspect of the navicular without adjacent bone marrow edema. There is intermediate signal and subtle irregularity of the posterior tibialis tendon near the navicular attachment site consistent with mild to moderate tendinopathy and fraying. A small amount of fluid tracks along the posterior tibialis tendon consistent with mild tenosynovitis. The flexor and extensor tendons otherwise appear intact. There is attenuation with irregularity and increased signal of the anterior talofibular ligament consistent with a prior high-grade sprain. The calcaneofibular ligament, posterior talofibular ligament, and tibiofibular ligaments appear intact. There is evidence for moderate prior sprain of the deep fibers of the deltoid ligament seen on the edge of the [id number] for this study. There is no cystic or solid mass in the region of the tarsal tunnel. There is no acute abnormality involving the plantar fascia. A moderate to large plantar calcaneal spur is present. IMPRESSION: 1. No acute bony abnormality involving the ankle or foot. 2. Moderate to severe degenerative change involves the second tarsometatarsal joint with mild to moderate degenerative change of the third and fourth tarsometatarsal joints. There is mild degenerative change otherwise as described above. 3. There is mild to moderate tendinopathy and fraying of the posterior tibialis tendon near the navicular attachment site with mild associated tenosynovitis. 4. Mild tendinopathy also involves the peroneal tendons and Achilles tendon. 5. Prior high-grade sprain of the anterior talofibular ligament. Electronically authenticated by: MADISYN CAAL Date: 2021-10-22 08:49 Normal [facility] UA RANDOM W/MICROSCOPICon BACTERIA SMALL Abnormal NONE SEEN [facility] Comment on above: Performed By: #### U AMIC #### [facility] [address] [place] [address] Dr. Barrington Gomez Bilirubin Ql (U) Negative Normal NEGATIVE [facility] Comment on above: Performed By: #### U AMIC #### [facility] [address] [place] [address] Dr. Barrington Gomez CAST SEEN Abnormal NONE SEEN [facility] Comment on above: Performed By: #### U AMIC #### [facility] [address] [place] [address] Dr. Barrington Gomez Clarity (U) CLEAR Normal CLEAR [facility] Comment on above: Performed By: #### U AMIC #### [facility] [address] [place] [address] Dr. Barrington Gomez Color (U) DK. ORANGE Abnormal YELLOW [facility] Comment on above: Performed By: #### U AMIC #### [facility] [address] [place] [address] Dr. Barrington Gomez Crystals LM Nom (Urine sed) NONE SEEN Normal NONE SEE N [facility] Comment on above: Performed By: #### U AMIC #### [facility] [address] [address] [address] Barrington Gomez Epithelial cells LM Ql (Urine sed) FEW Abnormal N ONE SEEN /RARE [facility] Comment on above: Performed By: #### U AMIC #### [facility] [address] [address] [address] Barrington Gomez Glucose Ql (U) Negative Normal NEGATIVE [facility] [place] [facility] Comment on above: Performed By: #### U AMIC #### [facility] [address] [address] [address] Barrington Gomez Hemoglobin Ql (U) Negative Normal NEGATIVE The [facility] Comment on above: Performed By: #### U AMIC #### [facility] [address] [place] [address] Dr. Barrington Gomez HYALINE CAST FEW Normal [facility] Comment on above: Performed By: #### U AMIC #### [facility] [address] [address] [address] Barrington Gomez Ketones Ql (U) TRACE Abnormal NEGATIVE [facility] [place] [facility] Comment on above: Performed By: #### U AMIC #### [facility] [address] [place] [address] Dr. Barrington Gomez LEUKOCYTES TRACE Abnormal NEGATIVE [facility] Comment on above: Performed By: #### U AMIC #### [facility] [address] [address] [address] Barrington Gomez MUCOUS NONE SEEN Normal NONE SEEN [facility] Comment on above: Performed By: #### U AMIC #### [facility] [address] [address] [address] Barrington Gomez Nitrite Ql (U) Negative Normal NEGATIVE [facility] [place] [facility] Comment on above: Performed By: #### U AMIC #### [facility] [address] [place] [address] Dr. Barrington Gomez pH (U) 5.0 [pH] Normal 5-9 [facility] Comment on above: Performed By: #### U AMIC #### [facility] [address] [address] [address] Barrington Gomez RBC 0-2 Normal 0-2 [facility] Comment on above: Performed By: #### U AMIC #### [facility] [address] [address] [address] Barrington Gomez SPEC GRAVITY >=1.030 Abnormal 1.005-<=1.[address] [facility] Comment on above: Performed By: #### U AMIC #### [facility] [address] [address] [address] Barrington Gomez UA PROTEIN Negative Normal NEGATIVE/ TRACE [facility] Comment on above: Performed By: #### U AMIC #### [facility] [address] [address] [address] Barrington Gomez Urobilinogen Qn (U) 0.2 {Antionette'U}/dL Normal 0.2 - 1. 0 [facility] Comment on above: Performed By: #### U AMIC #### [facility] [address] [place] [address] Dr. Barrington Gomez WBC 5-10 Abnormal NONE SEEN [facility] Comment on above: Performed By: #### U AMIC #### [facility] [address] [place] [address] Dr. Barrington Gomez C-Reactive Proteinon 022 CRP IV <0.3 Normal [facility] Specialist Comment on above: Performed By: #### E SR, CRP, CBC #### [facility] [address], [place] [id number] Complete Blood Counton 09-22 Erythrocyte distribution wid th (RBC) [Ratio] 17.2 % High 11.0-15.0 [facility] dical Specialist Comment on above: Performed By: #### E SR, CRP, CBC #### [facility] [address], [place] [id number] Hematocrit (Bld) [Volume fraction] 41.5 % Normal 35.0-47.0 [facility] dical Specialist Comment on above: Performed By: #### E SR, CRP, CBC #### [facility] [address] [place], [place] [id number] Hemoglobin (Bld) [Mass/Vol] 12.5 g/dL Normal 11.6-15. 5 [facility] Specialist Comment on above: Performed By: #### E SR, CRP, CBC #### [facility] [address], [place] [id number] MCH (RBC) [Entitic mass] 24.7 pg Low 27.0-33.0 [facility] Specialist Comment on above: Performed By: #### E SR, CRP, CBC #### [facility] [address], [place] [id number] MCHC (RBC) [Mass/Vol] 30.1 g/dL Low 32.0-36.0 [facility] Comment on above: Performed By: #### E SR, CRP, CBC #### [facility] [address], [place] [id number] MCV (RBC) [Entitic vol] 82 fL Normal 80-100 [facility] Comment on above: Performed By: #### E SR, CRP, CBC #### [facility] [address], [place] [id number] Platelet mean volume (Bld) [Entitic vol] 10.40 fL Normal 7.50-12.[address] [facility] Specialist Comment on above: Performed By: #### E SR, CRP, CBC #### [facility] [address], [place] [id number] Platelets (Bld) [#/Vol] 317 10*3/uL Normal 140-400 [facility] Specialist Comment on above: Performed By: #### E SR, CRP, CBC #### [facility] [address], [place] [id number] RBC (Bld) [#/Vol] 5.07 10*6/uL Normal 3.90-5.20 [facility] Specialist Comment on above: Performed By: #### E SR, CRP, CBC #### [facility] [address], [place] [id number] RDW-SD 50.8 fL High 37.0-50.0 [facility] Specialist Comment on above: Performed By: #### E SR, CRP, CBC #### [facility] [address], [place] [id number] WBC (Bld) [#/Vol] 9.2 10*3/uL Normal 3.8-11.0 Jayde khalil [place] [employer] [employer] [facility] Comment on above: Performed By: #### E SR, CRP, CBC #### [facility] [address], [place] [id number] RBC Sedimentation Rateon ESR (Bld) [Velocity] 10.00 mm/h Normal 0.00-30.00 Jesus mullins [place] [facility] Comment on above: Performed By: #### E SR, CRP, CBC #### [facility] [address], [place] [id number] Vital Signs Date Time Vital Sign Value Performing Clinician Facility 10-10-2022 15:14-0400 Body temperature 97.88 [degF] Rocael Wayne [facility] 10-10-2022 15:14-0400 Diastolic blood pressure 92 mm[Hg] Rocael Wayne [facility] 10-10-2022 15:14-0400 Heart rate 89 /min Rocael Wayne [facility] 10-10-2022 15:14-0400 Respiratory rate 16 /min Rocael Wayne [facility] 10-10-2022 15:14-0400 SaO2% (BldA) [Mass fraction] 99 % Rocael Wayne [facility] 10-10-2022 15:14-0400 Systolic blood pressure 145 mm[Hg] Rocael Wayne [facility] 10-07-2022 10:04-0400 Body height 162.6 cm Jose Bryant MD Work Phone: [facility] 10-07-2022 10:04-0400 Body temperature 97.39 [degF] Jose Bryant MD Work Phone: [facility] 10-07-2022 10:04-0400 Body weight 108.41 kg Jose Bryant MD Work Phone: [facility] 10-07-2022 10:04-0400 Diastolic blood pressure 85 mm[Hg] Jose Bryant MD Work Phone: [facility] 10-07-2022 10:04-0400 Heart rate 83 /min Jose Bryant MD Work Phone: [facility] 10-07-2022 10:04-0400 Respiratory rate 16 /min Jose Bryant MD Work Phone: [facility] 10-07-2022 10:04-0400 SaO2% (BldA) [Mass fraction] 98 % oJse Bryant MD Work Phone: [facility] 10-07-2022 10:04-0400 Systolic blood pressure 148 mm[Hg] Jose Bryant MD Work Phone: [facility] 06-10-2022 11:00-0500 Body height 162.6 cm Jose Bryant MD Work Phone: [facility] 06-10-2022 11:00-0500 Body temperature 97.2 [degF] Jose Bryant MD Work Phone: [facility] 06-10-2022 11:00-0500 Body weight 105.87 kg Jose Bryant MD Work Phone: [facility] 06-10-2022 11:00-0500 Diastolic blood pressure 87 mm[Hg] Jose Bryant MD Work Phone: [facility] 06-10-2022 11:00-0500 Heart rate 73 /min Jose Bryant MD Work Phone: [facility] 06-10-2022 11:00-0500 Respiratory rate 16 /min Jose Bryant MD Work Phone: [facility] 06-10-2022 11:00-0500 SaO2% (BldA) [Mass fraction] 98 % Jose Bryant MD Work Phone: [facility] 06-10-2022 11:00-0500 Systolic blood pressure 152 mm[Hg] Jose Bryant MD Work Phone: [facility] 02-17-2022 11:36-0400 Body temperature 98.4 [degF] Quique [facility]jica [facility] [employer] 02-17-2022 11:36-0400 Diastolic blood pressure 56 mm[Hg] Quique Mojica MD [facility] [employer] 02-17-2022 11:36-0400 Heart rate 96 /min Quique Mojica MD [facility] [employer] 02-17-2022 11:36-0400 Respiratory rate 16 /min Quique Mojica MD [facility] 02-17-2022 11:36-0400 SaO2% (BldA) [Mass fraction] 93 % Quique Mojica MD [facility] 02-17-2022 11:36-0400 Systolic blood pressure 117 mm[Hg] Quique Mojica MD [facility] 02-16-2022 10:32-0400 Body height 162.6 cm Quique Mojica MD [facility] 02-16-2022 10:32-0400 Body mass index (BMI) [Ratio] 40.34 kg/m2 Quique Mojica MD [facility] 02-16-2022 10:32-0400 Body weight 106.59 kg Quique Mojica MD [facility] [employer] 01-26-2022 07:54-0400 Body height 162.6 cm Sta [facility] 01-26-2022 07:54-0400 Body mass index (BMI) [Ratio] 40.34 kg/m2 Sta [facility] 01-26-2022 07:54-0400 Body temperature 97.5 [degF] Sta [facility] 01-26-2022 07:54-0400 Body weight 106.59 kg Sta [facility] 01-26-2022 07:54-0400 Diastolic blood pressure 84 mm[Hg] Sta [facility] 01-26-2022 07:54-0400 Heart rate 85 /min Sta [facility] 01-26-2022 07:54-0400 Respiratory rate 16 /min Sta [facility] 01-26-2022 07:54-0400 SaO2% (BldA) [Mass fraction] 98 % Sta [facility] 01-26-2022 07:54-0400 Systolic blood pressure 133 mm[Hg] Sta [facility] 11-20-2021 09:35-0400 Body temperature 97.3 [degF] Dallas Palmer MD Work Phone: [facility] 11-20-2021 09:35-0400 Body weight 104.33 kg Dallas Palmer MD Work Phone: [facility] 11-20-2021 09:35-0400 Diastolic blood pressure 78 mm[Hg] Dallas Palmer MD Work Phone: [facility] 11-20-2021 09:35-0400 Heart rate 95 /min Dallas Palmer MD Work Phone: [facility] 11-20-2021 09:35-0400 Systolic blood pressure 120 mm[Hg] Dallas Palmer MD Work Phone: [facility] Encounters Encounter Date Encounter Type Care Provider Facility Start: 04-01-2023 tavon reagan MD Work Phone: Hematology/Oncology Comment on above: Cat Scan Start: 03-31-2023 End: 03-31-2023 tavon STEVE ABHYANKAR Facility:[facility] Start: 02-22-2023 End: 02-22-2023 ambulatory Ricardo Hooper Facility:[facility] Start: 02-22-2023 End: 02-22-2023 ambulatory MD Ricardo Hooper Work Phone: [facility] Work Phone: Start: 02-22-2023 End: 02-22-2023 Patient encounter procedure MD Ricardo Hooper Work Phone: [facility] Work Phone: Start: 01-11-2023 End: 01-12-2023 Evaluation and management of inpatient [facility] Start: 12-21-2022 End: 12-26-2022 [facility] Start: 10-10-2022 End: 10-10-2022 Emergency department patient visit Rocael Wayne Facility:[facility] Start: 10-10-2022 End: 10-10-2022 Emergency department patient visit Rocael Wayne [facility] Start: 10-08-2022 End: 10-08-2022 ambulatory LEOBARDO SAAVEDRA . Facility: Start: 10-07-2022 End: 10-07-2022 ambulatory RICARDO HOOPER Facility:[facility] Start: 10-07-2022 End: 10-07-2022 Office outpatient visit 15 minutes Jose Bryant MD Work Phone: Hematology/Oncology Comment on above: Iron deficiency anem ia secondary to inadequate dietary iron intake (Primary Dx); Thrombocytopenia (HCC); Lung nodules Start: 08-29-2022 End: 08-30-2022 ambulatory VERNELL FARRELL Facility: Start: 08-05-2022 End: 08-06-[address] RICARDO HOOPER . Facility:[facility] Start: 07-28-2022 ambulatory VIN KIM . Facility:[facility] Start: 06-10-2022 End: 06-10-2022 ambulatory JOSE BRYANT Facility:[facility] Start: 06-10-2022 End: 06-10-2022 Office outpatient visit 15 minutes Jose Bryant MD Work Phone: Hematology/Oncology Comment on above: Iron deficiency anem ia secondary to inadequate dietary iron intake (Primary Dx); Pulmonary nodules; Mediastinal lymphadenopathy; Idiopathic cytopenia of undetermined significance (ICUS) Start: 06-01-2022 ambulatory VERNELL FARRELL Facility: [facility] Start: 04-28-2022 End: 04-28-[address] SHU CORTEZ . Facility:[facility] Start: 04-10-2022 Telephone encounter Consuelo Field RN Work Phone: Hematology/Oncology Comment on above: Patient Question (ap pointment) Start: 04-09-2022 End: 04-09-[address] RICARDO HOOPER . Facility:[facility] Start: 04-06-2022 End: 04-06-2022 ambulatory JOSE BRYANT Facility:[facility] Start: 02-18-2022 Telephone encounter Patricia Murrell Hematology/Oncology Comment on above: Appointment; Results Start: 02-16-2022 End: 02-17-2022 ambulatory [facility] Start: 02-16-2022 End: 02-17-2022 Subsequent hospital visit by physician Quique Mojica MD Work Phone: [facility] Comment on above: Lumbar stenosis with neurogenic claudication (Primary Dx) Start: 01-26-2022 End: 01-31-2022 ambulatory [facility] Start: 01-26-2022 End: 01-30-2022 Subsequent hospital visit by physician Brandon Carter 1 [facility] PRE-ADMIT TEST[facility] Start: 12-29-2021 End: 12-29-2021 Patient encounter procedure MD Ricardo Hooper Work Phone: [facility] [address] Start: 12-26-2021 End: 12-27-[address] RICARDO HOOPER . Facility:[facility] Start: 11-28-2021 End: 11-29-[address] RICARDO HOOPER . Facility:[facility] Start: 11-21-2021 End: 11-22-[address] RICARDO HOOPER . Facility:[facility] Start: 11-20-2021 End: 11-20-2021 Patient encounter procedure Dallas Palmer MD Work Phone: Urology Comment on above: Screening for genito urinary condition (Primary Dx); Recurrent UTI; Vaginal atrophy Start: 11-17-2021 End: 11-18-2021 ambulatory CECE VOGT Facility:[facility] Start: 11-12-2021 End: 11-13-[address] RICARDO HOOPER . Facility:[facility] Start: 11-05-2021 End: 11-06-[address] RICARDO HOOPER . Facility:[facility] Start: 11-03-2021 End: 11-09-2021 ambulatory VERNELL SILVESTREMER Facility:[facility] Start: 10-22-2021 End: 10-22-[address] RICARDO HOOPER . Facility:[facility] Start: 10-20-2021 End: 10-21-[address] RICARDO HOOPER . Facility: Procedures Date Procedure Procedure Detail Performing Clinician Start: 02-22-2023 Screening mammograph y of bilateral breasts MD Ricardo Hooper Work Phone: Start: 02-17-2022 Basic metabolic pane l calcium total Quique Mojica MD Work Phone: Start: 02-16-2022 Fluoroscopy during operation Quique Mojica MD Work Phone: Start: 02-16-2022 End: 02-16-2022 Laminectomy w/o ffd > 2 vert seg lumbar Quique Mojica MD Work Phone: Start: 01-26-2022 End: 01-26-2022 Culture bacterial quanttative colony count urine Quique Mojica MD Work Phone: Start: 01-26-2022 Urnls dip stick/tabl et rgnt auto w/o microscopy Quique Mojica MD Work Phone: Start: 01-26-2022 Basic metabolic pane l calcium total Quique Mojica MD Work Phone: Start: 11-20-2021 Urnls dip stick/tabl et rgnt auto w/o microscopy Dallas Palmer MD Work Phone: Start: 01-14-2021 Adult depression scr eening assessment Dallas Palmer MD Work Phone: Start: 12-19-2019 Lipid 1996 panel - S brianna or Plasma Jose Bryant MD Work Phone: Appendectomy Rocael Wayne Carpal tunnel syndro me (disorder) Rocael Wayne History of left oophorectomy Rocael Wayne Laparoscopy Rocael Wayne left ankle surgery x3 Rocael Wayne left elbow surgery Rocael Arteaga is Loop electrosurgical excision procedure of cervix Rocael Wayne Right oophorectomy Rocael Arteaga is right shoulder surgery Rocael Wayne Tonsillectomy Rocael Wayne Plan of Treatment Date Care Activity Detail Author Start: 07-29-2030 DTaP/Tdap/Td vaccine (2 - Td or Tdap) DTaP/Tdap/Td vaccine (2 - Td or Tdap) [facility] Start: 07-29-2030 Urine microalbumin profile [facility] Start: 03-31-2026 Diabetes Screening Diabetes Screening [facility] Start: 10-07-2025 DIABETES SCREEN DIABETES SCREEN [facility] Start: 06-10-2025 DIABETES SCREEN DIABETES SCREEN [facility] Start: 04-09-2025 DIABETES SCREEN DIABETES SCREEN [facility] Start: 12-18-2024 Lipid 1996 panel - Serum or Plasma Lipid Screening [facility] Start: 12-18-2024 LIPID SCREEN LIPID SCREEN [facility] Start: 07-10-2024 DIABETES SCREEN DIABETES SCREEN [facility] Start: 07-05-2023 End: 04-04-2024 CBC W Auto Differential panel - Blood CBC + DIFF Lab Routine Thrombocytopenia (HCC) Iron deficiency anemia secondary to inadequate dietary iron intake Expected: 07/05/2023 (Approximate), Expires: 04/04/2024 [facility] Work Phone: Comment on above: Expected: 07/05/2023 (Approximate), Expires: 04/04/2024 Start: 07-05-2023 End: 04-04-2024 Cobalamin (Vitamin B12) [Mass/volume] in Serum or Plasma VITAMIN B12 BLOOD Lab Routine Thrombocytopenia (HCC) Iron deficiency anemia secondary to inadequate dietary iron intake Expected: 07/05/2023 (Approximate), Expires: 04/04/2024 [facility] Work Phone: Comment on above: Expected: 07/05/2023 (Approximate), Expires: 04/04/2024 Start: 07-05-2023 End: 04-04-2024 Comprehensive metabolic 2000 panel - Serum or Plasma COMP METABOLIC PANEL Lab Routine Thrombocytopenia (HCC) Iron deficiency anemia secondary to inadequate dietary iron intake Expected: 07/05/2023 (Approximate), Expires: 04/04/2024 [facility] Work Phone: Comment on above: Expected: 07/05/2023 (Approximate), Expires: 04/04/2024 Start: 07-05-2023 End: 04-04-2024 Ferritin [Mass/volume] in Serum or Plasma FERRITIN BLD Lab Routine Thrombocytopenia (HCC) Iron deficiency anemia secondary to inadequate dietary iron intake Expected: 07/05/2023 (Approximate), Expires: 04/04/2024 [facility] Work Phone: Comment on above: Expected: 07/05/2023 (Approximate), Expires: 04/04/2024 Start: 07-05-2023 End: 04-04-2024 Folate [Mass/volume] in Serum or Plasma FOLATE SERUM Lab Routine Thrombocytopenia (HCC) Iron deficiency anemia secondary to inadequate dietary iron intake Expected: 07/05/2023 (Approximate), Expires: 04/04/2024 [facility] Work Phone: Comment on above: Expected: 07/05/2023 (Approximate), Expires: 04/04/2024 Start: 07-05-2023 End: 04-04-2024 Iron and Iron binding capacity panel - Serum or Plasma IRON + TIBC Lab Routine Thrombocytopenia (HCC) Iron deficiency anemia secondary to inadequate dietary iron intake Expected: 07/05/2023 (Approximate), Expires: 04/04/2024 [facility] Work Phone: Comment on above: Expected: 07/05/2023 (Approximate), Expires: 04/04/2024 Start: 04-09-2023 End: 10-08-2023 CBC W Auto Differential panel - Blood CBC + DIFF Lab Routine Thrombocytopenia (HCC) Lung nodules Iron deficiency anemia secondary to inadequate dietary iron intake Expected: 04/09/2023 (Approximate), Expires: 10/08/2023 [facility] Work Phone: Comment on above: Expected: 04/09/2023 (Approximate), Expires: 10/08/2023 Start: 04-09-2023 End: 10-08-2023 Cobalamin (Vitamin B12) [Mass/volume] in Serum or Plasma VITAMIN B12 BLOOD Lab Routine Thrombocytopenia (HCC) Lung nodules Iron deficiency anemia secondary to inadequate dietary iron intake Expected: 04/09/2023 (Approximate), Expires: 10/08/2023 [facility] Work Phone: Comment on above: Expected: 04/09/2023 (Approximate), Expires: 10/08/2023 Start: 04-09-2023 End: 10-08-2023 Comprehensive metabolic 2000 panel - Serum or Plasma COMP METABOLIC PANEL Lab Routine Thrombocytopenia (HCC) Lung nodules Iron deficiency anemia secondary to inadequate dietary iron intake Expected: 04/09/2023 (Approximate), Expires: 10/08/2023 [facility] Work Phone: Comment on above: Expected: 04/09/2023 (Approximate), Expires: 10/08/2023 Start: 04-09-2023 End: 11-06-2023 CT CHEST W IVCON CT CHEST W IVCON Radiology Routine Lung nodules Expected: 04/09/2023 (Approximate), Expires: 11/06/2023 [facility] Work Phone: Comment on above: Expected: 04/09/2023 (Approximate), Expires: 11/06/2023 Start: 04-09-2023 End: 10-08-2023 Ferritin [Mass/volume] in Serum or Plasma FERRITIN BLD Lab Routine Thrombocytopenia (HCC) Lung nodules Iron deficiency anemia secondary to inadequate dietary iron intake Expected: 04/09/2023 (Approximate), Expires: 10/08/2023 [facility] Work Phone: Comment on above: Expected: 04/09/2023 (Approximate), Expires: 10/08/2023 Start: 04-09-2023 End: 10-08-2023 Folate [Mass/volume] in Serum or Plasma FOLATE SERUM Lab Routine Thrombocytopenia (HCC) Lung nodules Iron deficiency anemia secondary to inadequate dietary iron intake Expected: 04/09/2023 (Approximate), Expires: 10/08/2023 [facility] Work Phone: Comment on above: Expected: 04/09/2023 (Approximate), Expires: 10/08/2023 Start: 04-09-2023 End: 10-08-2023 Iron and Iron binding capacity panel - Serum or Plasma IRON + TIBC Lab Routine Thrombocytopenia (HCC) Lung nodules Iron deficiency anemia secondary to inadequate dietary iron intake Expected: 04/09/2023 (Approximate), Expires: 10/08/2023 [facility] Work Phone: Comment on above: Expected: 04/09/2023 (Approximate), Expires: 10/08/2023 Start: 03-15-2023 Pneumococcal 65+ yea rs Vaccine (2 - PPSV23 or PCV20) Pneumococcal 65+ years Vaccine (2 - PPSV23 or PCV20) [facility] Start: 03-15-2023 Pneumococcal Vaccine : 65+ (3 - PPSV23 or PCV20) Pneumococcal Vaccine: 65+ (3 - PPSV23 or PCV20) [facility] Start: 03-15-2023 PNEUMOCOCCAL: 65+ (#3) PNEUMOCOCCAL: 65+ (#3) [facility] Start: 03-15-2023 PNEUMOCOCCAL: 65+ (2 - PPSV23 or PCV20) PNEUMOCOCCAL: 65+ (2 - PPSV23 or PCV20) [facility] Start: 01-29-2023 Covid-19 Vaccine ( season) Covid-19 Vaccine ( season) [facility] Start: 01-29-2023 Influenza vaccination Influenza Vacc ine (#1) [facility] Start: 05-31-2022 ADVANCE DIRECTIVE DISCUSSION ADVANCE DIRECTIVE DISCUSSION [facility] Start: 05-31-2022 DEPRESSION ASSESSMENT DEPRESSION ASS ESSMENT [facility] Start: 02-16-2022 End: 02-16-2022 Admission to same day surgery center 02/16/2022 Surgery IP Unit Quique Mojica MD [address] [place] [address] L3-4 LUMBAR LAMINECTOMY POSTERIOR ABOVE PREVIOUS L 4-5 FUSION [facility] Comment on above: L3-4 LUMBAR LAMINECT JOEL POSTERIOR ABOVE PREVIOUS L 4-5 FUSION Start: 02-16-2022 End: 02-16-2022 Laminectomy w/o ffd > 2 vert seg lumbar LUMBAR LAMINECTOMY POSTERIOR Spinal stenosis of lumbar region, unspecified whether neurogenic claudication present 02/16/2022 12:15 PM EDT [facility] Start: 02-16-2022 Subsequent hospital visit by physician 02/16/2022 Hospital Encounter IP Unit Quique Mojica MD [address] [place] [address] [facility] Start: 02-12-2022 Annual Wellness Visi t (AWV) Annual Wellness Visit (AWV) [facility] Start: 01-29-2022 Influenza vaccination [facility] Start: 01-21-2022 Screening mammograph y of bilateral breasts MM screening mammo BI w/CAD [facility] Start: 01-21-2022 End: 01-21-2022 [facility] Start: 01-14-2022 Adult depression screening assessment DEPRESSION SCREENING [facility] Start: 12-09-2021 COVID-19 VACCINE (5 - Booster for Pfizer series) COVID-19 VACCINE (5 - Booster for Pfizer series) [facility] Start: 2021 ADVANCE DIRECTIVE DISCUSSION ADVANCE DIRECTIVE DISCUSSION [facility] Start: 2021 BONE DENSITY BONE DENSITY [facility] Start: 2021 Bone Density Screening Bone Density Screening [facility] Start: 05-31-2021 DEPRESSION ASSESSMENT DEPRESSION ASS ESSMENT [facility] Start: 2016 RSV Vaccine (1 - 1-d ose 60+ series) RSV Vaccine (1 - 1-dose 60+ series) [facility] Start: 2006 Screening for malign ant neoplasm of breast Breast cancer screen [facility] Start: 2001 COLOGUARD (FIT-DNA) COLOGUARD (FIT-D NA) [facility] Start: 2001 Colonoscopy COLONOSCOPY [facility] Start: 2001 COLORECTAL CANCER SCREENING COLORECTAL CANCER SCREENING [facility] Start: [address] COLONOGRAPHY [facility] Start: 2001 FECAL OCCULT BLOOD FECAL OCCULT BLOO D [facility] Start: 2001 Screening for malign ant neoplasm of colon [facility] [employer] Start: 2001 SIGMOIDOSCOPY SIGMOIDOSCOPY [facility] Start: 1996 Lipid panel Lipids [facility] [employer] Start: 1996 Mammography [facility] Start: 09-19-1991 Diabetes screen Diabetes screen [facility] Start: 1974 Hepatitis C screening Hepatitis C sc reen [facility] [employer] Start: 1974 HIV SCREENING HIV SCREENING [facility] Start: 09-19-1971 HIV screening HIV screen [facility] [employer] [facility] [employer] Start: 1968 Depression Screen Depression Screen [facility] End: 02-19-2022 Basic metabolic 2000 panel - Serum or Plasma Basic Metabolic Panel Lab Routine Daily for 3 Days starting 02/17/2022 until 02/19/2022, 1 completed [facility] Work Phone: Comment on above: Daily for 3 Days sta rting 02/17/2022 until 02/19/2022, 1 completed End: 02-19-2022 CBC W Auto Differential panel - Blood CBC with Auto Differential Lab Routine Daily for 3 Days starting 02/17/2022 until 02/19/2022, 1 completed [employer] Phone: Comment on above: Daily for 3 Days sta rting 02/17/2022 until 02/19/2022, 1 completed End: 02-16-2022 Intermittent pulse oximetry Pulse Oximetry Spot Check Respiratory Care Routine One Time for 1 Occurrences starting 02/16/2022 until 02/16/2022 [employer] Phone: Comment on above: One Time for 1 Occur rences starting 02/16/2022 until 02/16/2022 Oxygen therapy [[facility] Data Set] Initiate Oxygen Therapy Protocol Respiratory Care Routine As Needed until discontinued starting 02/16/2022 [employer] Phone: Comment on above: As Needed until disc ontinued starting 02/16/2022 Spirometry panel Incentive mark metry Respiratory Care Routine Every 2hr while awake until discontinued starting 02/16/2022 [employer] Phone: Comment on above: Every 2hr while awak e until discontinued starting 02/16/2022 [facility] Immunizations Immunization Date Immunization Notes Care Provider [facility] 04-26-2022 Seasonal, quadrivale nt, recombinant, injectable influenza vaccine, preservative free Jose Bryant MD Work Phone: [facility] 04-26-2022 influenza virus vacc ine, unspecified formulation Jose Bryant MD Work Phone: [facility] 03-28-2021 influenza, injectabl e, quadrivalent, preservative free Dallas Palmer MD Work Phone: [facility] 11-26-2020 zoster vaccine recombinant Dallas Palmer MD Work Phone: [facility] 09-10-2020 COVID-19 Lowell Osorio (Cuiker) MD Ricardo Hoy Work Phone: [facility] 08-19-2020 COVID-19 Jo, Lowell bains (Pfizer) MD Ricardo Hooper Work Phone: [facility] 07-29-2020 hepatitis A vaccine, adult dosage Dallas Palmer MD Work Phone: [facility] 07-29-2020 tetanus toxoid, redu perri diphtheria toxoid, and acellular pertussis vaccine, adsorbed Dallas Palmer MD Work Phone: [facility] 07-12-2020 typhoid capsular polysaccharide vaccine Dallas Palmer MD Work Phone: [facility] 01-30-2020 influenza, injectabl e, quadrivalent, preservative free Dallas Palmer MD Work Phone: [facility] 01-30-2020 zoster vaccine recombinant Dallas Palmer MD Work Phone: [facility] 02-27-2019 influenza, injectabl e, quadrivalent, preservative free Dallas Palmer MD Work Phone: [facility] 01-27-2019 influenza, injectabl e, quadrivalent, preservative free Dallas Palmer MD Work Phone: [facility] 03-21-2018 influenza, injectabl e, quadrivalent, contains preservative Dallas Palmer MD Work Phone: [facility] 03-21-2018 influenza, seasonal, injectable Dallas Palmer MD Work Phone: [facility] 03-15-2018 influenza, injectabl e, quadrivalent, preservative free Dallas Palmer MD Work Phone: [facility] 03-15-2018 pneumococcal polysaccharide vaccine, 23 valent Dallas Palmer MD Work Phone: [facility] 02-28-2018 pneumococcal conjuga te vaccine, 13 valent Dallas Palmer MD Work Phone: [facility] 01-29-2018 influenza virus vacc ine, unspecified formulation Dallas Palmer MD Work Phone: [facility] 06-18-2017 influenza, high dose seasonal, preservative-free Dallas Palmer MD Work Phone: [facility] 06-18-2017 pneumococcal polysaccharide vaccine, 23 valent Dallas Palmer MD Work Phone: [facility] 04-20-2014 influenza, seasonal, injectable, preservative free Dallas Palmer MD Work Phone: [facility] Payers Date Payer Category Payer Self-pay [id number] 2018 Medicare HUMANA MEDICARE HUMANA MEDICARE PPO [id number] 2018-Present [phone] [address] [place] [address] PPO [id number] 2018 Medicare HUMANA MEDICARE HUMANA MEDICARE PPO [id number] 2018-Present [phone] [address] [place] [address] PPO [id number] 1959 Private Health Insurance [id number] 1959 Unknown [id number] 1956 Unknown [id number] 2.16.840.1.303803.3.579.2. 593 1956 Unknown [id number] 2.16.840.1.168283.3.579.2. 593 1956 Unknown [id number] 2.16.840.1.576641.3.579.2. 593 1956 Unknown [id number] 2.16.840.1.356975.3.579.2. 593 1956 Unknown [id number] 2.16.840.1.362170.3.579.2. 593 1956 Unknown [id number] 2.16.840.1.193959.3.579.2. 593 1956 Unknown [id number] 2.16.840.1.873025.3.579.2. 593 1956 Unknown [id number] 2.16.840.1.326646.3.579.2. 593 1956 Unknown [id number] 2.16.840.1.061559.3.579.2. 593 1956 Unknown [id number] 2..840.1.599400.3.579.2. 593 1956 Unknown [id number] 2.840.1.560797.3.579.2. 593 1956 Unknown [id number] 2.840.1.407820.3.579.2. 593 1956 Unknown [id number] 2.840.1.380308.3.579.2. 593 1956 Unknown [id number] 2.840.1.876366.3.579.2. 593 1956 Unknown [id number] 2.840.1.297899.3.579.2. 593 1956 Unknown [id number] 2.16.840.1.920002.3.579.2. 593 1956 Unknown [id number] 2.16.840.1.158452.3.579.2. 593 1956 Unknown [id number] 2.16.840.1.996277.3.579.2. 727 1956 Unknown [id number] 2.16.840.1.058936.3.579.2. 177 1956 Unknown [id number] 2.16.840.1.674203.3.579.2. 177 1956 Unknown [id number] 2.16.840.1.358619.3.579.2. 177 1956 Unknown [id number] 2.16.840.1.829748.3.579.2. 177 Medicaid Medicaid [id number] Medicare [facility] [id number] Unknown [id number] 2.16.840.1.391223.3.579.2. 531 Social History Date Type Detail Facility Start: 01-23-2015 End: 04-30-2015 Tobacco smoking status NHIS Never smoked tobacco [facility] Start: 01-23-2015 End: 04-30-2015 Tobacco use and exposure Smokeless tobacco non-user [facility] Start: 07-10-2021 End: 06-10-2022 Alcohol intake Current drinker of alcohol (finding) [facility] Start: 06-17-2015 History SDOH Alcohol Comment rare [facility] Start: 1955 Sex Assigned At Not on file [facility] Start: 10-28-2021 End: 04-09-2022 Exposure to SARS-CoV-2 (event) Not sure [facility] Start: 1955 Sex Assigned At Female F [facility] Start: 01-26-2022 End: 02-17-2022 Alcohol intake Ex-drinker (finding) [employer] Phone: Start: 09-15-2021 History SDOH Alcohol Frequency 1 [employer] Phone: Start: 06-10-2022 End: 06-13-2022 Sex Assigned At Female [facility] Start: 06-10-2022 End: 06-13-2022 History of Social function [facility] Adult Depression Screening Assessment 0 [facility] Functional Status Date Assessment Result Facility 10-10-2022 Functional Status N/A [facility] Clinical Notes 11-05-2021 to 04-04-2023 Telephone Encounter - Jose Bryant MD - 04/04/2023 8:14 PM EST Note Date & Type Note Facility 04-04-2023 Miscellaneous Notes Formattin g of this note might be different from the original. I hope she had a good trip to [place]. She can come back to see me in 3 months - just need her labs done 2-3 days before. documented in this encounter [facility] 03-31-2023 Note HNO ID: [id number] Author: Kaci Hodge RN Service: ? Author Type: Registered Nurse Type: Progress Notes Filed: 03/31/2023 8:54 AM Note Text: Radiology Service Progress Note DATE OF SERVICE: March 31, 2023 TIME: 8:53 AM PATIENT WEIGHT: 252LBS PATIENT IDENTITY VERIFICATION COMPLETED USING TWO (2) STANDARD IDENTIFIERS: Name and Date of confirmed by patient verbally. FALL SCREENING: Has the patient had 2 falls in the last year or 1 fall with injury or currently using an Ambulatory Assistive Device (Walker, Cane, Wheelchair, Crutches, etc.)? No PATIENT GENDER DATA: Female. status: : No status: NO. ALLERGIES: Reviewed and unchanged CONTRAST ALLERGY: No EXAM: CT -CONTRAST INDUCED NEPHROPATHY RISK FACTORS: Patient age > 60 years CREATININE: Creatinine Date Value Ref Range Status 03/31/2023 0.98 (H) 0.58 - 0.96 mg/dL Final 10/07/2022 0.95 0.58 - 0.96 mg/dL Final 06/10/2022 0.87 0.58 - 0.96 mg/dL Final Estimated Glomerular Filtration Rate Date Value Ref Range Status 03/31/2023 64 >=60 mL/min/1.73m? Final Comment: Estimated Glomerular Filtration Rate (eGFR) is calculated using the 2020 CKD-EPI creatinine equation. This equation utilizes serum creatinine, sex, and age as parameters. The creatinine assay has traceable calibration to isotope dilution-mass spectrometry. Refer to KDIGO guidelines for clinical interpretation. In patients with unstable renal function, e.g. those with acute kidney injury, the eGFR may not accurately reflect actual GFR. eGFR- Date Value Ref Range Status 07/10/2021 >60 Final P.O.C.T. RESULTS: POC done: Yes, See Lab Tab March 31, 2023 TREATMENT: N/A IV SITE: Ambulatory: A peripheral IV was started in the Right antecubital site with a Angio cath: 20 gauge. IV SITE APPEARANCE: Clean,Dry and Intact SIGNATURE: Kaci Hodge RN PATIENT NAME: Jessica Ferrera DATE: March 31, 2023 TIME: 8:53 AM [facility] 03-31-2023 Note HNO ID: [id number] Author: Charleen Tao RT(Tez) Service: ? Author Type: Technologist Type: Progress Notes Filed: 03/31/2023 9:40 AM Note Text: Radiology Service Progress Note PATIENT NAME: Jessica Ferrera DATE OF SERVICE: March 31, 2023 TIME: 9:39 AM PATIENT IDENTITY VERIFICATION COMPLETED USING TWO (2) IDENTIFIERS: Name and Date of confirmed by patient verbally. FALL SCREENING: Has the patient had 2 falls in the last year or 1 fall with injury or currently using an Ambulatory Assistive Device (Walker, Cane, Wheelchair, Crutches, etc.)? No PATIENT GENDER DATA: Female. status: : No status: NO. PATIENT RELEVANT IMPLANT DATA REVIEWED: Not Applicable RADIOLOGY DEPARTMENT: CT; Exam(s) Completed: Chest PERIPHERAL IV DATA: Site assessment: Clean,Dry and Intact, Site disposition Discontinued SIGNED BY: RT Corine(R) March 31, 2023 9:39 AM [facility] 10-10-2022 Hospital Discharg e instructions Patient Education 10/10/2022 16:00:24 Otitis Media With Effusion, Adult Otitis Media With Effusion, Adult Otitis media with effusion (OME) is inflammation and fluid (effusion) in the middle ear without having an ear infection. The middle ear is the space behind the eardrum. The middle ear is connected to the back of the throat by a narrow tube (eustachian tube). Normally the eustachian tube drains fluid out of the middle ear. A swollen eustachian tube can become blocked and cause fluid to collect in the middle ear. OME often goes away without treatment. Sometimes OME can lead to hearing problems and recurrent acute ear infections (acute otitis media). These conditions may require treatment. What are the causes? OME is caused by a blocked eustachian tube. This can result from: Allergies. Upper respiratory infections. Enlarged adenoids. The adenoids are areas of soft tissue located high in the back of the throat, behind the nose and the roof of the mouth. They are part of the body's natural defense system (immune system). Rapid changes in pressure, like when an airplane is descending or during scuba diving. In some cases, the cause of this condition is not known. What are the signs or symptoms? Common symptoms of this condition include: A feeling of fullness in your ear. Decreased hearing in the affected ear. Fluid draining into the ear canal. Pain in the ear. In some cases, there are no symptoms. How is this diagnosed? A health care provider can diagnose OME based on signs and symptoms of the condition. Your provider will also do a physical exam to check for fluid behind the eardrum. During the exam, your health care provider will use an instrument called an otoscope to look in your ear. Your health care provider may do other tests, such as: A hearing test. A tympanogram. This is a test that shows how well the eardrum moves in response to air pressure in the ear canal. It provides a graph for your health care provider to review. A pneumatic otoscopy. This is a test to check how your eardrum moves in response to changes in pressure. It is done by squeezing a small amount of air into the ear. How is this treated? Treatment for OME depends on the cause of the condition and the severity of symptoms. The first step is often waiting to see if the fluid drains on its own in a few weeks. Home care treatment may include: Jgum-vud-xorefia pain relievers. A warm, moist cloth placed over the ear. Severe cases may require a procedure to insert tubes in the ears (tympanostomy tubes) to drain the fluid. Follow these instructions at home: Take urgi-xzo-tggxetw and prescription medicines only as told by your health care provider. Keep all follow-up visits. Contact a health care provider if: You have pain that gets worse. Hearing in your affected ear gets worse. You have fluid draining from your ear canal. You have dizziness. You develop a fever. Get help right away if: You develop a severe headache. You completely lose hearing in the affected ear. You have bleeding from your ear canal. You have sudden and severe pain in your ear. These symptoms may represent a serious problem that is an emergency. Do not wait to see if the symptoms will go away. Get medical help right away. Call your local emergency services (911 in the [place] Do not drive yourself to the hospital. Summary Otitis media with effusion (OME) is inflammation and fluid (effusion) in the middle ear without having an ear infection. A swollen eustachian tube can become blocked and cause fluid to collect in the middle ear. Treatment for OME depends on the cause of the condition and the severity of symptoms. Many times, treatment is not needed because the fluid drains on its own in a few weeks. Sometimes OME can lead to hearing problems and recurrent acute ear infections (acute otitis media), which may require treatment. This information is not intended to replace advice given to you by your health care provider. Make sure you discuss any questions you have with your health care provider. Document Revised: 09/11/2021 Document Reviewed: 09/11/2021 [employer] Patient Education 2022 Integrated [employer] Health. Follow Up Care 10/10/2022 14:55:39 With:Ricardo Sandie Address: [address] [place], [place] [id number] Business (1) When:10/13/2022 15:48:06 Comments:Follow-up with your primary care provider in 3 to 5 days. If symptoms worsen, do not improve, or new symptoms arise please report back to emergency department for further evaluation. [facility] 10-10-2022 Evaluation + Plan note Extrac mirtha from: Title:ED Note Author:Thony Soriano PA-C te:10/10/22 Left serous otitis media (H6 5.92: Unspecified nonsuppurative otitis media, left ear) Orders: cefdinir, 300 mg = 1 cap(s), Oral, q12hr, X 7 day(s), # 14 cap(s), Refills(s) 0 predniSONE, 60 mg = 3 tab(s), Oral, Daily, X 7 day(s), # 21 tab(s), Refills(s) 0 [facility]05-10-2023 NoteHNO ID: [id number] Author: Jose Bryant MD Service: ? Author Type: Physician Type: Progress Notes Filed: 10/07/2022 10:43 AM Note Text: NAME: Jessica Ferrera CLINIC NO.: [id number] DATE OF SERVICE: June 10, 2022 (Stephanerobynian) Some elements in this clinic note that are critical to medical decision making have been carefully reviewed and included from a prior clinic note dated: April 09, 2022 (Andra) CHIEF COMPLAINT: followup for anemia ASSESSMENT: (D50.8) Iron deficiency anemia secondary to inadequate dietary iron intake (primary encounter diagnosis) (D69.6) Thrombocytopenia (HCC) (R91.8) Lung nodules Iron deficiency With anemia - improving. Responding to oral iron replacement ferrous sulfate 325 mg either to be taken twice a day or once every other day. Now at Hgb of 12.2 g/dL Pulmonary nodule Will continue yearly screening CT of the chest PLAN: RTC in 6 months labs and scans 1 week before Hold oral Iron while in [place] ( for [address] weeks) [address] chest in 6 months with labs also. PULMONARY nodule is stable - can reassess in 6 months. 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 We discussed the potential benefits of sending off a sample to complete targeted sequencing (NGS) for 56 commonly mutated genes in myeloid malignancies, primarily, the identification of diagnostic and prognostic markers, as well as potential therapeutic targets. After this discussion, Ms. Ferrera verbally agreed to testing under IRB 5024. she signed consent for IRB 5024, and we will have her stop by at the lab to leave a sample. Results are expected in 10 to 15 business days. This does not appear to be a reactive process. However, she is undergoing workup of enlarged lymph nodes that may be related. Will continue with observation at this time, and follow up on NGS results. I spent 60 minutes in the visit, with more than 50% of the total lvye-je-elwa time of the visit in counseling / coordination of care. Yo Morse MD, MS [employer] book[employer] Hematology and Medical Oncology [address] [address] Labs and Imaging Reviewed outside records provided prior to this visit and those in [facility]. as diagnosed by Dr. Morse [facility]. No evidence of a paraprotein. Negative hepatitis antibodies. No sign of acute viral infection. Inflammatory serologic indicators are negative. Normal LDH. 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 B-12, folate adequate. subacute platelet drop from 263,000 in April 2017 down to the 50-70,000 range in April 2018, CT chest abdomen and pelvis in early 2018 without any obvious neoplastic disease. Some small mediastinal adenopathy which is not particularly concerning. Monitoring for now. HPI: Updated Visit, October 07, 2022: Leaving for [place] next week. Has all of her shots and prophylaxis for malaria. Anemia corrected on oral iron therapy. Doing well despite back pain which is chronic. Also recovering from recent sinus infection. Updated Visit, June 10, 2022: Jessica returns and is doing well. Improved anemia on oral iron. Thrombocytopenia and WBC's normal. Will continue annual CT for nodules. Updated Visit, April 09, 2022: Jessica returns - we talked about the loss of her mother. Her back is better after surgery for lumbar stenosis. Will get labs today. Scan has some inflammatory changes on her CT chest but no changes in nodules. Labs pending today. Updated Visit, July 10, 2021: Jessica is 65 yo and returns in follow up for ICUS - labs are pretty good and remain stable. CT in 12/2020 with stable nodule that will need re-evaluated annually. She has a lot of stress surrounding her mother and her son . We talked about her mental / emotional state and offered support which she turned down for now but will let me know. Past several months has been complaining of persistent / recurrent cough and discomfort. No real dyspnea. Would recommend that she see her PCP. Updated Visit, January 15, 2021: Comes in concerned with recent CT done in [facility] with a left 8 mm nodule. Appears to be stable overall. Will consider following more closely but has multiple reasons for inflammatory changes included untreated sleep apnea and COVID-19 in 04/2020. Feels in pain from hip injection and has a UT (more content not included)... [facility]05-10-2023 Instructions* Patient Instructions* Jose Bryant MD - 10/07/2022 10:42 AM EDT RTC in 6 months labs and scans 1 week before Hold oral Iron while in [place] ( for [address]) [address] chest in 6 months with labs also. [facility] History of Present illness Narrative* Jose Bryant MD - 10/07/2022 10:33 AM EDT Images from the original note were not included. NAME: Jessica Ferrera CLINIC NO.: [id number] DATE OF SERVICE: June 10, 2022 (Andra) Some elements in this clinic note that are critical to medical decision making have been carefully reviewed and included from a prior clinic note dated: April 09, 2022 (Andra) CHIEF COMPLAINT: followup for anemia ASSESSMENT: (D50.8) Iron deficiency anemia secondary to inadequate dietary iron intake (primary encounter diagnosis) (D69.6) Thrombocytopenia (HCC) (R91.8) Lung nodules Iron deficiency With anemia - improving. Responding to oral iron replacement ferrous sulfate 325 mg either to be taken twice a day or once every other day. Now at Hgb of 12.2 g/dL Pulmonary nodule Will continue yearly screening CT of the chest PLAN: RTC in 6 months labs and scans 1 week before Hold oral Iron while in [place] ( for [address]) [address] chest in 6 months with labs also. PULMONARY nodule is stable - can reassess in 6 months. 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 Problem List Idiopathic Cytopenias of Undetermined Significance Her most recent bone marrow biopsy did not quite meet the diagnostic criteria for MDS and clonalityhas not been establish. 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 We discussed the potential benefits of sending off a sample to complete targeted sequencing (NGS) for 56 commonly mutated genes in myeloid malignancies, primarily, the identification of diagnostic and prognostic markers, as well as potential therapeutic targets. After this discussion, Ms. Ferrera verbally agreed to testing under IRB 5024. she signed consent for IRB 5024, and we will have her stop by at the lab to leave a sample. Results are expected in 10 to 15 business days. This does not appear to be a reactive process. However, she is undergoing workup of enlarged lymph nodes that may be related. Will continue with observation at this time, and follow up on NGS results. I spent 60 minutes in the visit, with more than 50% of the total fivi-ke-qcdf time of the visit in counseling / coordination of care. Yo Morse MD, MS [employer] book[employer] Hematology and Medical Oncology [address] [place] [id number] Labs and Imaging Reviewed outside records provided prior to this visit and those in [facility]. as diagnosed by Dr. Morse [facility]. No evidence of a paraprotein. Negative hepatitis antibodies. No sign of acute viral infection. Inflammatory serologic indicators are negative. Normal LDH. 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 B-12, folate adequate. subacute platelet drop from 263,000 in April 2017 down to the 50-70,000 range in April 2018, CT chest abdomen and pelvis in early 2018 without any obvious neoplastic disease. Some small mediastinal adenopathy which is not particularly concerning. Monitoring for now. HPI: Updated Visit, October 07, 2022: Leaving for [facility] next week. Has all of her shots and prophylaxis for malaria. Anemia corrected on oral iron therapy. Doing well despite back pain which is chronic. Also recovering from recent sinus infection. Updated Visit, June 10, 2022: Jessica returns and is doing well. Improved anemia on oral iron. Thrombocytopenia and WBC's normal. Will continue annual CT for nodules. Updated Visit, April 09, 2022: Jessica returns - we talked about the loss of her mother. Her back is better after surgery for lumbar stenosis. Will get labs today. Scan has some inflammatory changes on her CT chest but no changes in nodules. Labs pending today. Updated Visit, July 10, 2021: Jessica is 65 yo and returns in follow up for ICUS - labs are pretty good and remain stable. CT in 12/2020 with stable nodule that will need re-evaluated annually. She has a lot of stress surrounding sekou and her son . We talked about her mental / emotional state and offered support which she turned down for now but will let me know. Past several months has been complaining of persistent / recurrent cough and discomfort. No real dyspnea. Would recommend that she see her PCP. Updated Visit, January 15, 2021: Comes in concerned with recent CT done in [facility] with a left 8 mm nodule. Appears to be stable overall. Will consider following more closely but has multiple reasons for inflammatory changes included untreated sleep apnea and COVID-19 in 04/2020. Feels in pain from hip injection and has a UTI. Feels fatigued and just out of it . Left lung nodule was reviewed and appears to be relatively stable. Subcarinal LN were decreased and over the past 2 years. Platelet counts remain stable and improved. Updated Visit, July 11, 2020: This is a 64 year old female referred for thrombocytopenia. She is transition[place] as her previous physician left. recovered from COVID-19 Jason Olsen is her son grandmother of breast cancer Father had leukemia son has myeloma... Her labs have stayed stable. Past medical history includes obesity, sleep apnea, hypertension, gastroesophageal reflux, severe arthritis requiring multiple hip, back, shoulder, knee surgeries and arthroscopies. Followed by ear nose and throat. Refuses C Pap at night. She takes lisinopril, nexium, bioflex prn, trazadone, sennakot. Her son was diagnosed with multiple myeloma at a very young age. Her maternal grandmother had breast cancer and another blood disease. Her father had leukemia. A CBC from 05/18/18 shows normal white blood cell count with normal white blood cell differential. Hemoglobin of 12.6 with an MCV of 85.3. Platelets of 69,000. 04/2017 plt were 263,000. Follow-up CBC from 05/26/18 again shows normal white blood cells and hemoglobin with a platelet count of 55,000. Stopped ibuprofen. Follow-up CBC from 06/02/18 again shows normal white blood cells and hemoglobin with a platelet countof 77,000. Stopped trazadone. Follow-up CBC from 06/16/18 again shows normal white blood cells and hemoglobin with a platelet count of 71,000. Restarted trazadone. Platelet count from April 2017 was 263,000. Recently, over last 6 or 7 months, having a lot of pain in her posterior R neck and sent to ENT andUS reports only subcentimeter lymph nodes. Can be sharp pain, but often constant ache, worse with pressing on it. She gets pain in her ear. Dr. Burt noted a deviated septum and no obvious cause of her pain per the patient. preop testing for deviated septum noted low platelets. Colonoscopy in [place] 2016 with many polyps, recommended repeat. Colonoscopy in 2017 in [place]. June 27, 2018 She notes recent severe fatigue. She feels her head swimming, a little dizzy and lightheaded. More tired than normal. She notes some hot flashes. No lumps or bumps reported by the patient. Yearly mammograms reported normal by the patient. Occasional palpitations and chest discomfort. July 13, 2018 CT neck C/A/p from 07/11/18 with contrast. No evidence of a neck soft tissue mass, fluid collection,or lymphadenopathy. Concurrent CT chest reported separately. 1. Nonspecific mild mediastinal lymphadenopathy. Consider interval follow-up or other workup. 2. Nonspecific 6-7 mm left upper lobe groundglass opacity. Incidental Finding: Follow-up for this incidentally detected lung nodule CT exam in 6-12 months is recommended. If stable on follow-up imaging, repeat chest CT exams in 24 and 48 months are recommended (at 30-36 and 54-60 months from the initial exam). 1. No evidence of splenomegaly or intra-abdominal/pelvic lymphadenopathy. 2. Sigmoid colon diverticulosis without evidence of diverticulitis. 3. Small fat-containing umbilical hernia. Mammogram in december was normal. 08/10/18 Today discussed results of bm asprate and biopsy 07/21/18 BONE MARROW, ASPIRATE SMEAR AND CORE BIOPSY, WITH CLOT SECTION AND PERIPHERAL BLOOD (A-C): - NORMOCELLULAR BONE MARROW (40%) WITH TRILINEAGE HEMATOPOIESIS, MILDLY INCREASED MEGAKARYOCYTES AND MILD DYSMEGAKARYOPOIESIS. - STAINABLE IRON ABSENT. - cytogenetics normal. Still very little energy. October 05, 2018 still very fatigued. Not eating as much lately and lost 6lbs. No other specific complaints. NGS panel was negative. Her FLT3 was negative. Has CT chest scheduled in december. January 11, 2019 she has some days with good energy and some with low energy. She is walking daily for 3 months For 3 to 5 miles per day. Had trip to [place] in November for chest pain. CT chest 01/04/19 Stable appearance of left upper lobe groundglass nodule. No new or enlarging nodules are seen. Recommend follow-up in 24 months, per Fleischner Society guidelines. Subcarinal adenopathy appears slightly decreased in size from prior. Unchanged appearance of AP window node. Additional subcentimeter mediastinal nodes also appear unchanged. March 01, 2019 she feels generally weak, little tired. She is having feelsings of her head is going to blow, pressure in head. Hot around temples, lightheaded and dizzy all the time. Nausea without vomiting. No sinus congestion. Platelets have improved dramatically. July 12, 2019 R rotator cuff surgery upcoming. She wants clearance letter. REVIEW OF SYSTEMS Per HPI and otherwise negative by full review of organ systems. ECOG PERFORMANCE STATUS: 0 PHYSICAL EXAMINATION: Vitals: BP 148/85 Pulse 83 Temp (Src) 97.4 (Temporal) Resp 16 Ht 5' 4.016 (1.63m) Wt 239lb (108.4kg) SpO2 98% BMI 41.00 kg/(m^2). Body surface area is 2.21 meters squared. Exam limited to gross visualization where appropriate. Gen.: This is an age-appropriate patient in no acute distress. Head: Appears atraumatic with no visible lesions. Eyes: Pupils equally round and reactive to light, extraocular muscles are intact. Neck: Supple. Mouth: Mucous membranes appeared to be moist. Respiratory: Appears to be respiring comfortably. Neurologic: Nonfocal to gross visualization. Alert and oriented 3. Psychiatric: No evidence of inappropriate anxiety or depression. Skin: Visible areas of skin without rash, lesions, wounds or petechiae. ALLERGIES: ALLERGIES Allergen Reactions Ciprofloxacin Intolerance Clindamycin Vomiting Doxycycline Vomiting Levaquin [Levofloxa* Myalgia Monistat 1 [[place]* Other: See Comments Burning of skin Nitrofurantoin [place]* GI Upset, Hives, Itching, Rash, Swelling Penicillins Shortness of Breath Skin Cleanser Combi* Unknown MEDICATIONS: fluticasone propionate (FLONASE NASAL) Use in the nose as needed. ferrous sulfate 325 mg (65 mg iron) tablet Take 1 tablet by mouth daily with breakfast. sulfamethoxazole-trimethoprim (BACTRIM,SEPTRA) 400-80 mg per tablet Take by mouth once daily. baclofen (LIORESAL) 10 mg tablet Take 10 mg by mouth. estradiol (ESTRACE) 0.01 % (0.1 mg/gram) vaginal cream 1 g. traZODone (DESYREL) 100 mg tablet Take 100 mg by mouth daily at bedtime. lisinopril (ZESTRIL, PRINIVIL) 20 mg tablet lisinopril 20 mg tablet Take 1 tablet every day by oral route. ibuprofen (MOTRIN) 800 mg tablet Take 800 mg by mouth every 6 hours as needed. esomeprazole (NEXIUM) 40 mg capsule Take 40 mg by mouth. cefdinir (OMNICEF) 300 mg capsule take 2 capsules by mouth once daily for 10 days (Patient not taking: Reported on 10/07/2022) iv contrast (will be provided with radiology test) CT Chest W -Inject, intravenously, once for 1 dose.No IV access, insert saline lock prior to the beginning of sedation, infusion, injection of imaging exam. Discontinue saline lock post exam. If Pt. has a central line or IVAD, may access for administration according to line specific nursing protocol. Once exam is complete flush line and de-accessaccording to line specific nursing protocol in the CT contrast administration guidelines link. WBC (k/uL) Date Value 10/07/2022 13.01 (H) RBC (m/uL) Date Value 10/07/2022 5.04 Hemoglobin (g/dL) Date Value 10/07/2022 14.4 Hematocrit (%) Date Value 10/07/2022 45.1 MCV (fL) Date Value 10/07/2022 89.5 MCH (pg) Date Value 10/07/2022 28.6 MCHC (g/dL) Date Value 10/07/2022 31.9 RDW-CV (%) Date Value 10/07/2022 15.3 (H) Platelet Count (k/uL) Date Value 10/07/2022 307 MPV (fL) Date Value 10/07/2022 9.5 Glucose (mg/dL) Date Value 10/07/2022 105 (H) BUN (mg/dL) Date Value 10/07/2022 11 Creatinine (mg/dL) Date Value 10/07/2022 0.95 Sodium (mmol/L) Date Value 10/07/2022 140 Potassium (mmol/L) Date Value 10/07/2022 3.9 Chloride (mmol/L) Date Value 10/07/2022 102 CO2 (mmol/L) Date Value 10/07/2022 27 Protein, Total (g/dL) Date Value 10/07/2022 6.8 Albumin (g/dL) Date Value 10/07/2022 4.4 Calcium, Total (mg/dL) Date Value 10/07/2022 9.4 Alkaline Phosphatase (U/L) Date Value 10/07/2022 95 Bilirubin, Total (mg/dL) Date Value 10/07/2022 0.3 AST (U/L) Date Value 10/07/2022 15 ALT (U/L) Date Value 10/07/2022 17 DIAGNOSIS: (D50.8) Iron deficiency anemia secondary to inadequate dietary iron intake (primary encounter diagnosis) Plan: CBC + DIFF, COMP METABOLIC PANEL, IRON + TIBC, FERRITIN BLD, VITAMIN B12 BLOOD, FOLATE SERUM (D69.6) Thrombocytopenia (HCC) Plan: CBC + DIFF, COMP METABOLIC PANEL, IRON + TIBC, FERRITIN BLD, VITAMIN B12 BLOOD, FOLATE SERUM (R91.8) Lung nodules Plan: CT CHEST W IVCON, CBC + DIFF, COMP METABOLIC PANEL, IRON + TIBC, FERRITIN BLD, VITAMIN B12 BLOOD, FOLATE SERUM PAST MEDICAL HISTORY Diagnosis Date Blood clotting disorder (HCC) Lupus Anticoagulant- last (2) were negative Endometriosis Fibromyalgia Frequent UTI Iron deficiency anemia secondary to inadequate dietary iron intake 04/10/2022 Raynaud disease Thrombocytopenia (HCC) PAST SURGICAL HISTORY Procedure Laterality Date ANKLE SURGERY HX Left x 3 APPENDECTOMY APPENDECTOMY HX ARTHRP KNE CONDYLE&PLATU MEDIAL&LAT COMPARTMENTS Left and Right CARPAL TUNNEL bilateral CYSTO.PANENDO 06/05/2021 CYSTOURETHROSCOPY 06/20/15 Cystoscopy; Dr. Palmer; Leanne KENDALL [facility] SURGERY HX Left HYSTERECTOMY HX 1995 left overy and hysterectomy. ROTATOR CUFF REPAIR 2013,2014 Left x 2 SHOULDER SURGERY HX Right TONSILLECTOMY HX TONSILLECTOMY HX Social History Tobacco Use Smoking status: Never Smokeless tobacco: Never Vaping Use Vaping Use: Never used Substance Use Topics Alcohol use: Yes Comment: rare Drug use: No FAMILY HISTORY Problem Relation Age of Onset Hyperlipidemia Mother Hypertension Father age 60 Cancer Father prostate and leukemia other (heart attack) Father Hypertension Brother Hypertension Brother Cancer Brother brain CA age 45 other (multiple myeloma) Son I spent a total of 20 minutes on the date of the service which included preparing to see the patient, [id number] patient care, completing clinical documentation, performing a medically appropriate examination, counseling and educating the patient/family/caregiver, ordering medications, tests, or p rocedures, and independently interpreting results (not separately reported). Jose Bryant MD, CPE Hematology and Oncology Services Provided at: [place], [place] CC: Ricardo Hooper MD [address] [facility] [id number] [facility] Nurse Note* Desiree Connors MA - 10/07/2022 10:08 AM EDT Patient is going to physical therapy for back and head, her head is better. Desiree Connors MA documented in this [facility]03-[facility] NotePROCEDURE: XR ANKLE LT MIN 3 V COMPARISON: 10/01/2021 HISTORY: Pain of left ankle joint FINDINGS: BONES:No acute fracture or dislocation. Moderate to marked enthesopathic spurring of the plantar calcaneus. Mild degenerative changes with marginal osteophyte formation. SOFT TISSUES:Negative. No visible soft tissue swelling. EFFUSION:None visible. OTHER: Negative. IMPRESSION: Stable degenerative changes Electronically authenticated by: JOSE ALBERTO STEPHEN Date: 2022-08-05 13:47[facility]01-11-2023 NoteHNO ID: [id number] Author: Jose Bryant MD Service: ? Author Type: Physician Type: Progress Notes Filed: 06/10/2022 11:39 AM Note Text: NAME: Jessica Ferrera CLINIC NO.: [id number] DATE OF SERVICE: June 10, 2022 (Andra) Some elements in this clinic note that are critical to medical decision making have been carefully reviewed and included from a prior clinic note dated: April 09, 2022 (Andra) CHIEF COMPLAINT: followup for anemia ASSESSMENT: (D50.8) Iron deficiency anemia secondary to inadequate dietary iron intake (primary encounter diagnosis) (R91.8) Pulmonary nodules (R59.0) Mediastinal lymphadenopathy (D75.9) Idiopathic cytopenia of undetermined significance (ICUS) Iron deficiency With anemia - improving. Responding to oral iron replacement ferrous sulfate 325 mg either to be taken twice a day or once every other day. Now at Hgb of 12.2 g/dL Pulmonary nodule Will continue yearly screening CT of the chest PLAN: Keep appointment scheduled in September with Labs same day. Continue oral Iron CT chest in one year with labs also. Will order at next visit in September for March 2023 RTC in 6 months - same day as labs - CBC, CMP, Anemia PULMONARY nodule is stable - can reassess in 1 year. Will discuss in 6 months. [facility] Clinical Note Previous notes reviewed today in preparation for this visit 07/11/2020 In summary: Ms. 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 We discussed the potential benefits of sending off a sample to complete targeted sequencing (NGS) for 56 commonly mutated genes in myeloid malignancies, primarily, the identification of diagnostic and prognostic markers, as well as potential therapeutic targets. After this discussion, Ms. Ferrera verbally agreed to testing under IRB 5024. she signed consent for IRB 5024, and we will have her stop by at the lab to leave a sample. Results are expected in 10 to 15 business days. This does not appear to be a reactive process. However, she is undergoing workup of enlarged lymph nodes that may be related. Will continue with observation at this time, and follow up on NGS results. I spent 60 minutes in the visit, with more than 50% of the total [id number] time of the visit in counseling / coordination of care. Yo Morse MD, MS [employer] book[employer] Hematology and Medical Oncology [address] [address] Labs and Imaging Reviewed outside records provided prior to this visit and those in [facility]. as diagnosed by Dr. Morse [facility]. No evidence of a paraprotein. Negative hepatitis antibodies. No sign of acute viral infection. Inflammatory serologic indicators are negative. Normal LDH. 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 B-12, folate adequate. subacute platelet drop from 263,000 in April 2017 down to the 50-70,000 range in April 2018, CT chest abdomen and pelvis in early 2018 without any obvious neoplastic disease. Some small mediastinal adenopathy which is not particularly concerning. Monitoring for now. HPI: Updated Visit, June 10, 2022: Jessica returns and is doing well. Improved anemia on oral iron. Thrombocytopenia and WBC's normal. Will continue annual CT for nodules. Updated Visit, April 09, 2022: Jessica returns - we talked about the loss of her mother. Her back is better after surgery for lumbar stenosis. Will get labs today. Scan has some inflammatory changes on her CT chest but no changes in nodules. Labs pending today. Updated Visit, July 10, 2021: Jessica is 65 yo and returns in follow up for ICUS - labs are pretty good and remain stable. CT in 12/2020 with stable nodule that will need re-evaluated annually. She has a lot of stress surrounding her mother and her son . We talked about her mental / emotional state and offered support which she turned down for now but will let me know. Past several months has been complaining of persistent / recurrent cough and discomfort. No real dyspnea. Would recommend that she see her PCP. Updated Visit, January 15, 2021: Comes in concerned with recent CT done in [facility] with a left 8 mm nodule. Appears to be stable overall. Will consider following more closely but has multiple reasons for inflammatory changes included untreated sleep apnea and COVID-19 in 04/2020. Feels in pain from hip injection and has a UTI. Feels fatigued and just out of it . Left lung nod (more content not included)...[facility]01-11-2023 Instructions* Patient Instructions* Jose Bryant MD - 06/10/2022 11:35 AM EST Keep appointment scheduled in September with Labs same day. Continue oral Iron CT chest in one year with labs also. Will order at next visit in September RTC in 6 months - same day as labs - CBC, CMP, Anemia documented in this encounterR[facility]01-11-2023 History of Present illness Narrative* Jose Bryant MD - 06/10/2022 11:26 AM EST Images from the original note were not included. NAME: Jessica Ferrera CLINIC NO.: [id number] DATE OF SERVICE: June 10, 2022 (Andra) Some elements in this clinic note that are critical to medical decision making have been carefully reviewed and included from a prior clinic note dated: April 09, 2022 (Andra) CHIEF COMPLAINT: followup for anemia ASSESSMENT: (D50.8) Iron deficiency anemia secondary to inadequate dietary iron intake (primary encounter diagnosis) (R91.8) Pulmonary nodules (R59.0) Mediastinal lymphadenopathy (D75.9) Idiopathic cytopenia of undetermined significance (ICUS) Iron deficiency With anemia - improving. Responding to oral iron replacement ferrous sulfate 325 mg either to be taken twice a day or once every other day. Now at Hgb of 12.2 g/dL Pulmonary nodule Will continue yearly screening CT of the chest PLAN: Keep appointment scheduled in September with Labs same day. Continue oral Iron CT chest in one year with labs also. Will order at next visit in September for March 2023 RTC in 6 months - same day as labs - CBC, CMP, Anemia PULMONARY nodule is stable - can reassess in 1 year. Will discuss in 6 months. [facility] Clinical Note Previous notes reviewed today in preparation for this visit 07/11/2020 In summary: Ms. 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 Problem List Idiopathic Cytopenias of Undetermined Significance Her most recent bone marrow biopsy did not quite meet the diagnostic criteria for MDS and clonalityhas not been establish. 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 We discussed the potential benefits of sending off a sample to complete targeted sequencing (NGS) for 56 commonly mutated genes in myeloid malignancies, primarily, the identification of diagnostic and prognostic markers, as well as potential therapeutic targets. After this discussion, Ms. Ferrera verbally agreed to testing under IRB 5024. she signed consent for IRB 5024, and we will have her stop by at the lab to leave a sample. Results are expected in 10 to 15 business days. This does not appear to be a reactive process. However, she is undergoing workup of enlarged lymph nodes that may be related. Will continue with observation at this time, and follow up on NGS results. I spent 60 minutes in the visit, with more than 50% of the total [id number] time of the visit in counseling / coordination of care. Yo Morse MD, MS [employer] bookkeeper Hematology and Medical Oncology [address] [place], [place] [id number] Labs and Imaging Reviewed outside records provided prior to this visit and those in [facility]. as diagnosed by Dr. Morse [facility]. No evidence of a paraprotein. Negative hepatitis antibodies. No sign of acute viral infection. Inflammatory serologic indicators are negative. Normal LDH. 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 B-12, folate adequate. subacute platelet drop from 263,000 in April 2017 down to the 50-70,000 range in April 2018, CT chest abdomen and pelvis in early 2018 without any obvious neoplastic disease. Some small mediastinal adenopathy which is not particularly concerning. Monitoring for now. HPI: Updated Visit, June 10, 2022: Jessica returns and is doing well. Improved anemia on oral iron. Thrombocytopenia and WBC's normal. Will continue annual CT for nodules. Updated Visit, April 09, 2022: Jessica returns - we talked about the loss of her mother. Her back is better after surgery for lumbar stenosis. Will get labs today. Scan has some inflammatory changes on her CT chest but no changes in nodules. Labs pending today. Updated Visit, July 10, 2021: Jessica is 65 yo and returns in follow up for ICUS - labs are pretty good and remain stable. CT in 12/2020 with stable nodule that will need re-evaluated annually. She has a lot of stress surrounding hermgloria and her son . We talked about her mental / emotional state and offered support which she turned down for now but will let me know. Past several months has been complaining of persistent / recurrent cough and discomfort. No real dyspnea. Would recommend that she see her PCP. Updated Visit, January 15, 2021: Comes in concerned with recent CT done in [facility] with a left 8 mm nodule. Appears to be stable overall. Will consider following more closely but has multiple reasons for inflammatory changes included untreated sleep apnea and COVID-19 in 04/2020. Feels in pain from hip injection and has a UTI. Feels fatigued and just out of it . Left lung nodule was reviewed and appears to be relatively stable. Subcarinal LN were decreased and over the past 2 years. Platelet counts remain stable and improved. Updated Visit, July 11, 2020: This is a 64 year old female referred for thrombocytopenia. She is transitioning her care to me as her previous physician left. recovered from COVID-19 Jason Olsen is her son grandmother of breast cancer Father had leukemia son has myeloma... Her labs have stayed stable. Past medical history includes obesity, sleep apnea, hypertension, gastroesophageal reflux, severe arthritis requiring multiple hip, back, shoulder, knee surgeries and arthroscopies. Followed by ear nose and throat. Refuses C Pap at night. She takes lisinopril, nexium, bioflex prn, trazadone, sennakot. Her son was diagnosed with multiple myeloma at a very young age. Her maternal grandmother had breast cancer and another blood disease. Her father had leukemia. A CBC from 05/18/18 shows normal white blood cell count with normal white blood cell differential. Hemoglobin of 12.6 with an MCV of 85.3. Platelets of 69,000. 04/2017 plt were 263,000. Follow-up CBC from 05/26/18 again shows normal white blood cells and hemoglobin with a platelet count of 55,000. Stopped ibuprofen. Follow-up CBC from 06/02/18 again shows normal white blood cells and hemoglobin with a platelet countof 77,000. Stopped trazadone. Follow-up CBC from 06/16/18 again shows normal white blood cells and hemoglobin with a platelet count of 71,000. Restarted trazadone. Platelet count from April 2017 was 263,000. Recently, over last 6 or 7 months, having a lot of pain in her posterior R neck and sent to ENT andUS reports only subcentimeter lymph nodes. Can be sharp pain, but often constant ache, worse with pressing on it. She gets pain in her ear. Dr. Burt noted a deviated septum and no obvious cause of her pain per the patient. preop testing for deviated septum noted low platelets. Colonoscopy in [place] 2016 with many polyps, recommended repeat. Colonoscopy in 2017 in [place]. June 27, 2018 She notes recent severe fatigue. She feels her head swimming, a little dizzy and lightheaded. More tired than normal. She notes some hot flashes. No lumps or bumps reported by the patient. Yearly mammograms reported normal by the patient. Occasional palpitations and chest discomfort. July 13, 2018 CT neck C/A/p from 07/11/18 with contrast. No evidence of a neck soft tissue mass, fluid collection,or lymphadenopathy. Concurrent CT chest reported separately. 1. Nonspecific mild mediastinal lymphadenopathy. Consider interval follow-up or other workup. 2. Nonspecific 6-7 mm left upper lobe groundglass opacity. Incidental Finding: Follow-up for this incidentally detected lung nodule CT exam in 6-12 months is recommended. If stable on follow-up imaging, repeat chest CT exams in 24 and 48 months are recommended (at 30-36 and 54-60 months from the initial exam). 1. No evidence of splenomegaly or intra-abdominal/pelvic lymphadenopathy. 2. Sigmoid colon diverticulosis without evidence of diverticulitis. 3. Small fat-containing umbilical hernia. Mammogram in december was normal. 08/10/18 Today discussed results of bm asprate and biopsy 07/21/18 BONE MARROW, ASPIRATE SMEAR AND CORE BIOPSY, WITH CLOT SECTION AND PERIPHERAL BLOOD (A-C): - NORMOCELLULAR BONE MARROW (40%) WITH TRILINEAGE HEMATOPOIESIS, MILDLY INCREASED MEGAKARYOCYTES AND MILD DYSMEGAKARYOPOIESIS. - STAINABLE IRON ABSENT. - cytogenetics normal. Still very little energy. October 05, 2018 still very fatigued. Not eating as much lately and lost 6lbs. No other specific complaints. NGS panel was negative. Her FLT3 was negative. Has CT chest scheduled in december. January 11, 2019 she has some days with good energy and some with low energy. She is walking daily for 3 months For 3 to 5 miles per day. Had trip to [place] in November for chest pain. CT chest 01/04/19 Stable appearance of left upper lobe groundglass nodule. No new or enlarging nodules are seen. Recommend follow-up in 24 months, per Fleischner Society guidelines. Subcarinal adenopathy appears slightly decreased in size from prior. Unchanged appearance of AP window node. Additional subcentimeter mediastinal nodes also appear unchanged. March 01, 2019 she feels generally weak, little tired. She is having feelsings of her head is going to blow, pressure in head. Hot around temples, lightheaded and dizzy all the time. Nausea without vomiting. No sinus congestion. Platelets have improved dramatically. July 12, 2019 R rotator cuff surgery upcoming. She wants clearance letter. REVIEW OF SYSTEMS Per HPI and otherwise negative by full review of organ systems. ECOG PERFORMANCE STATUS: 0 PHYSICAL EXAMINATION: Vitals: BP 152/87 Pulse 73 Temp (Src) 97.2 (Temporal) Resp 16 Ht 5' 4.016 (1.63m) Wt 233lb 6.4 oz (105.9kg) SpO2 98% BMI 40.04 kg/(m^2). Body surface area is 2.19 meters squared. Exam limited to gross visualization where appropriate due to COVID-19. Gen.: This is an age-appropriate patient in no acute distress. Head: Appears atraumatic with no visible lesions. Eyes: Pupils equally round and reactive to light, extraocular muscles are intact. Neck: Supple. Mouth: Mucous membranes appeared to be moist. Respiratory: Appears to be respiring comfortably. Neurologic: Nonfocal to gross visualization. Alert and oriented 3. Psychiatric: No evidence of inappropriate anxiety or depression. Skin: Visible areas of skin without rash, lesions, wounds or petechiae. ALLERGIES: ALLERGIES Allergen Reactions Ciprofloxacin Intolerance Clindamycin Vomiting Doxycycline Vomiting Levaquin [Levofloxa* Myalgia Monistat 1 [[place]* Other: See Comments Burning of skin Nitrofurantoin [place]* GI Upset, Hives, Itching, Rash, Swelling Penicillins Shortness of Breath Skin Cleanser Combi* Unknown MEDICATIONS: ferrous sulfate 325 mg (65 mg iron) tablet Take 1 tablet by mouth daily with breakfast. sulfamethoxazole-trimethoprim (BACTRIM,SEPTRA) 400-80 mg per tablet Take by mouth once daily. baclofen (LIORESAL) 10 mg tablet Take 10 mg by mouth. estradiol (ESTRACE) 0.01 % (0.1 mg/gram) vaginal cream 1 g. traZODone (DESYREL) 100 mg tablet Take 100 mg by mouth daily at bedtime. lisinopril (ZESTRIL, PRINIVIL) 20 mg tablet lisinopril 20 mg tablet Take 1 tablet every day by oral route. ibuprofen (MOTRIN) 800 mg tablet Take 800 mg by mouth every 6 hours as needed. esomeprazole (NEXIUM) 40 mg capsule Take 40 mg by mouth. WBC (k/uL) Date Value 06/10/2022 6.37 RBC (m/uL) Date Value 06/10/2022 4.98 Hemoglobin (g/dL) Date Value 06/10/2022 12.2 Hematocrit (%) Date Value 06/10/2022 40.6 MCV (fL) Date Value 06/10/2022 81.5 MCH (pg) Date Value 06/10/2022 24.5 (L) MCHC (g/dL) Date Value 06/10/2022 30.0 (L) RDW-CV (%) Date Value 06/10/2022 21.7 (H) Platelet Count (k/uL) Date Value 06/10/2022 253 MPV (fL) Date Value 06/10/2022 10.0 Glucose (mg/dL) Date Value 06/10/2022 97 BUN (mg/dL) Date Value 06/10/2022 10 Creatinine (mg/dL) Date Value 06/10/2022 0.87 Sodium (mmol/L) Date Value 06/10/2022 140 Potassium (mmol/L) Date Value 06/10/2022 4.2 Chloride (mmol/L) Date Value 06/10/2022 107 (H) CO2 (mmol/L) Date Value 06/10/2022 26 Protein, Total (g/dL) Date Value 06/10/2022 6.2 (L) Albumin (g/dL) Date Value 06/10/2022 4.2 Calcium, Total (mg/dL) Date Value 06/10/2022 9.4 Alkaline Phosphatase (U/L) Date Value 06/10/2022 78 Bilirubin, Total (mg/dL) Date Value 06/10/2022 0.2 AST (U/L) Date Value 06/10/2022 21 ALT (U/L) Date Value 06/10/2022 15 DIAGNOSIS: (D50.8) Iron deficiency anemia secondary to inadequate dietary iron intake (primary encounter diagnosis) (R91.8) Pulmonary nodules (R59.0) Mediastinal lymphadenopathy (D75.9) Idiopathic cytopenia of undetermined significance (ICUS) PAST MEDICAL HISTORY Diagnosis Date Blood clotting disorder (HCC) Lupus Anticoagulant- last (2) were negative Endometriosis Fibromyalgia Frequent UTI Iron deficiency anemia secondary to inadequate dietary iron intake 04/10/2022 Raynaud disease Thrombocytopenia (HCC) PAST SURGICAL HISTORY Procedure Laterality Date ANKLE SURGERY HX Left x 3 APPENDECTOMY APPENDECTOMY HX ARTHRP KNE CONDYLE&PLATU MEDIAL&LAT COMPARTMENTS Left and Right CARPAL TUNNEL bilateral CYSTO.PANENDO 06/05/2021 CYSTOURETHROSCOPY 06/20/15 Cystoscopy; Dr. Palmer; [place] [facility] SURGERY HX Left HYSTERECTOMY HX 1995 left overy and hysterectomy. ROTATOR CUFF REPAIR 2013,2014 Left x 2 SHOULDER SURGERY HX Right TONSILLECTOMY HX TONSILLECTOMY HX Social History Tobacco Use Smoking status: Never Smokeless tobacco: Never Vaping Use Vaping Use: Never used Substance Use Topics Alcohol use: Yes Comment: rare Drug use: No FAMILY HISTORY Problem Relation Age of Onset Hyperlipidemia Mother Hypertension Father age 60 Cancer Father prostate and leukemia other (heart attack) Father Hypertension Brother Hypertension Brother Cancer Brother brain CA age 45 other (multiple myeloma) Son I spent a total of 25 minutes on the date of the service which included preparing to see the patient, [id number] patient care, completing clinical documentation, performing a medically appropriate examination, counseling and educating the patient/family/caregiver, ordering medications, tests, or p rocedures, and independently interpreting results (not separately reported). Jose Bryant MD, CPE Hematology and Oncology Services Provided at: [place], [place] CC: Ricardo Hooper MD [id number] [facility] [id number] documented in this encounterR[facility]11-[facility]-2022 Miscellaneous Notes* Telephone Encounter - Patricia Eugene RN - 04/14/2022 8:36 AM EST VM left that RX sent to [facility]. Patricia Eugene RN * Telephone Encounter - Patricia Eugene RN - 04/13/2022 10:56 AM EST Pt is scheduled for 2 month follow up; 06/10/22. PIPPA/SRUTHI: Please review and sign iron RX pended by Allison Tavares. Thank you, Patricia Eugene RN * Telephone Encounter - Consuelo Field RN - 04/10/2022 4:15 PM EST Call made to Jessica. Informed pt that Dr. Alberto would send prescription to her pharmacy and would like her to follow up in two month with labs before. Pt is in agreement with plan. Pt informed she would be receiving a call for scheduling. PSS: Per Dr. Alberto Please schedule patient for 2 month follow up with labs prior to visit. Thanks! Consuelo Tavares RN * Telephone Encounter - Consuelo Field RN - 04/10/2022 2:39 PM EST Spoke to Jessica. She had not been taking her oral iron. She states she would like to try the oral iron again and would like to avoid IV if possible. Jessica states they have a hard time getting IV access. Script pending. Please review and sign. Do you want her to come back for labs prior to 6 months? Consuelo Tavares RN * Telephone Encounter - Consuelo Field RN - 04/10/2022 1:02 PM EST Call made to patient. No answer. Left message requesting call back. Consuelo Tavares RN * Telephone Encounter - Jose Bryant MD - 04/10/2022 12:15 PM EST Is she taking her iron by mouth still? If she isn't, she should resume. If she isn't because she couldn't tolerate it, we should give her a series of iron replacement for 4 doses weekly and then recheck her 4 weeks after her last dose with labs. She is now anemic which she wasn't in the past. * Telephone Encounter - Consuelo Field RN - 04/10/2022 9:39 AM EST Jessica called stating she is concerned about her iron levels and wants to know if you think she should follow up sooner than 6 months? Please advise. Consuelo Tavares RN documented in this encounterR[facility]11-10-2022 NoteHNO ID: [id number] Author: Jose Bryant MD Service: ? Author Type: Physician Type: Progress Notes Filed: 04/14/2022 1:16 PM Note Text: NAME: Jessica Ferrera CLINIC NO.: [id number] DATE OF SERVICE: April 09, 2022 (Andra) Some elements in this clinic note that are critical to medical decision making have been carefully reviewed and included from a prior clinic note dated: July 10, 2021 (Andra) CHIEF COMPLAINT: 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 Will order at next visit RTC in 6 months - same day as labs - CBC, CMP, Anemia Continue antibiotics as ordered by PCP. PULMONARY nodule is stable - can reassess in 1 year. Will discuss in 6 months. 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 We discussed the potential benefits of sending off a sample to complete targeted sequencing (NGS) for 56 commonly mutated genes in myeloid malignancies, primarily, the identification of diagnostic and prognostic markers, as well as potential therapeutic targets. After this discussion, Ms. Ferrera verbally agreed to testing under IRB 5024. she signed consent for IRB 5024, and we will have her stop by at the lab to leave a sample. Results are expected in 10 to 15 business days. This does not appear to be a reactive process. However, she is undergoing workup of enlarged lymph nodes that may be related. Will continue with observation at this time, and follow up on NGS results. I spent 60 minutes in the visit, with more than 50% of the total [id number] time of the visit in counseling / coordination of care. Yo Morse MD, MS [employer] bookkeeper Hematology and Medical Oncology [address], [place] [address] Labs and Imaging Reviewed outside records provided prior to this visit and those in [facility]. as diagnosed by Dr. Morse [facility]. No evidence of a paraprotein. Negative hepatitis antibodies. No sign of acute viral infection. Inflammatory serologic indicators are negative. Normal LDH. 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 B-12, folate adequate. subacute platelet drop from 263,000 in April 2017 down to the 50-70,000 range in April 2018, CT chest abdomen and pelvis in early 2018 without any obvious neoplastic disease. Some small mediastinal adenopathy which is not particularly concerning. Monitoring for now. Iron deficiency Without anemia Will monitor closely, recommended oral iron replacement ferrous sulfate 325 mg either to be taken twice a day or once every other day. Pulmonary nodule We'll consider yearly screening CT of the chest although I think this is pretty low yield. Visit (SP) Office on 04/09/22 CBC + DIFF COMP METABOLIC PANEL IRON + TIBC FERRITIN BLD VITAMIN B12 BLOOD FOLATE SERUM Return in about 6 months (around 10/07/2022). HPI: Updated Visit, April 09, 2022: Jessica returns - we talked about the loss of her mother. Her back is better after surgery for lumbar stenosis. Will get labs today. Scan has some inflammatory changes on her CT chest but no changes in nodules. Labs pending today. Updated Visit, July 10, 2021: Jessica is 65 yo and returns in follow up for ICUS - labs are pretty good and remain stable. CT in 12/2020 with stable nodule that will need re-evaluated annually. She has a lot of stress surrounding her mother and her son . We talked about her mental / emotional state and offered support which she turned down for now but will let me know. Past several months has been complaining of persistent / recurrent cough and discomfort. No real dyspnea. Would recommend that she see her PCP. Updated Visit, January 15, 2021: Comes in concerned with recent CT done in [facility] with a left 8 mm nodule. Appears to be stable overall. Will consider following more closely but has multiple reasons for inflammatory changes included untreated sleep apnea and COVID-19 in 04/2020. Feels in pain from hip injection and has a UTI. Feels fatigued and (more content not included)...[facility]11-07-2022 NoteHNO ID: [id number] Author: RT Corine(R) Service: ? Author Type: Technologist Type: Progress Notes Filed: 04/06/2022 9:13 AM Note Text: Radiology Service Progress Note PATIENT NAME: Jessica Ferrera DATE OF SERVICE: April 06, 2022 TIME: 9:13 AM PATIENT IDENTITY VERIFICATION COMPLETED USING TWO (2) IDENTIFIERS: Name and Date of confirmed by patient verbally. FALL SCREENING: Has the patient had 2 falls in the last year or 1 fall with injury or currently using an Ambulatory Assistive Device (Walker, Cane, Wheelchair, Crutches, etc.)? No PATIENT GENDER DATA: Female. status: : No status: NO. PATIENT RELEVANT IMPLANT DATA REVIEWED: Not Applicable RADIOLOGY DEPARTMENT: CT; Exam(s) Completed: Chest PERIPHERAL IV DATA: Site assessment: Clean,Dry and Intact, Site disposition Discontinued SIGNED BY: RT Corine(R) April 06, 2022 9:13 [facility]11-07-2022 NoteHNO ID: [id number] Author: Heike Ortiz RN Service: ? Author Type: Registered Nurse Type: Progress Notes Filed: 04/06/2022 9:25 AM Note Text: Radiology Service Progress Note DATE OF SERVICE: April 06, 2022 TIME: 9:23 AM PATIENT WEIGHT: 231LBS PATIENT IDENTITY VERIFICATION COMPLETED USING TWO (2) STANDARD IDENTIFIERS: Name and Date of confirmed by patient verbally. FALL SCREENING: Has the patient had 2 falls in the last year or 1 fall with injury or currently using an Ambulatory Assistive Device (Walker, Cane, Wheelchair, Crutches, etc.)? No PATIENT GENDER DATA: Female. status: : No status: NO. ALLERGIES: Reviewed and unchanged CONTRAST ALLERGY: No EXAM: CT -CONTRAST INDUCED NEPHROPATHY RISK FACTORS: Patient age > 60 years CREATININE: Creatinine Date Value Ref Range Status 07/10/2021 0.89 0.58 - 0.96 mg/dL Final 01/15/2021 1.01 (H) 0.58 - 0.96 mg/dL Final 07/11/2020 0.98 (H) 0.58 - 0.96 mg/dL Final eGFR-All Other Races Date Value Ref Range Status 07/10/2021 >60 . Final Comment: eGFR (Estimated GFR) Units of measure: mL/min/1.73 meters squared eGFR is derived from the reexpressed MDRD Study equation using the following parameters: serum creatinine, age, gender and race. The creatinine assay has been calibrated to be traceable to IDMS. An eGFR <60 mL/min/1.73m2 for >3 months is consistent with chronic kidney disease. Refer to KDOQI guidelines for clinical interpretation. In patients with unstable renal function, e.g. those with acute kidney injury, the eGFR may not accurately reflect actual GFR. Note: On 07/26/2021, the eGFR calculation will be updated to the NKF-ASN Task Force recommended 2020 CKD-EPI creatinine equation which does not include a race variable. For more information or to access a 2020 CKD-EPI calculator, visit the National Kidney Foundation website at kidney.org/professionals/kdoqi/gfr_calculator. eGFR- Date Value Ref Range Status 07/10/2021 >60 Final P.O.C.T. RESULTS: POC done: Yes, See Lab Tab April 06, 2022 TREATMENT: N/A IV SITE: Ambulatory: A peripheral IV was started in the Right antecubital site with a Angio cath: 20 gauge. IV SITE APPEARANCE: Clean,Dry and Intact SIGNATURE: Heike Ortiz RN PATIENT NAME: Jessica Ferrera DATE: April 06, 2022 TIME: 9:23 [facility]09-22-2022 Miscellaneous Notes* Telephone Encounter - Patricia Eugene RN - 02/19/2022 9:[address] Alberto reviewed labs rec'd from [facility] this morning. He will discuss with patient all results on 03/12 appt. Nothing to address at this time. Patricia Eugene RN * Telephone Encounter - Dedra Carr [facility] - 02/19/2022 8:11 AM EDT Records scanned. * Telephone Encounter - Angle Hawk [facility] - 02/18/2022 4:03 PM EDT Appointment moved to after CT on 03/12, pt notified. * Telephone Encounter - Patricia Eugene RN - 02/18/2022 3:52 PM EDT Pt aware can move pt up to Mar [address] Pt states she also had a recent back surgery at [facility], in [place] with additional lab work. She is okay with getting all the results at her appt, unless you need to go over anything with her after reviewing all the results. PIPPA: review Dr Villasenor labs in the lab tab. I will have Rudi Carr get the additional labs from [facility] for you to review as well. Rudi Carr: Please obtain medical records from recent OR/Labs PSS: please call and schedule pt for follow up same day as CT per PIPPA. Thank you, Patricia Eugene RN * Telephone Encounter - Jose Bryant MD - 02/18/2022 3:17 PM EDT Can I see her same day as CT? Do I need to review labs from outside and call her? * Telephone Encounter - Patricia Eugene RN - 02/18/2022 12:37 PM EDT Pt labs sent from Dr Villasenor's office from 12/29/2021 draw. Pt is requesting to see PIPPA sooner than her March 19 appt. She is scheduled for CT 02/10. PIPPA: please review labs and advise Patricia Eugene RN documented in this encounterRivers[facility]09-20-2022 History of Present illness Narrative* Regina Pizarro RN - 02/17/2022 2:01 PM EDT The patient is discharged home at this time; her brother is present to drive her home. * Becky Valadez - 02/17/2022 12:59 PM EDT CLINICAL PHARMACY NOTE: MEDS TO BEDS Total # of Prescriptions Filled: 2 The following medications were delivered to the patient: Oxycodone-APAP 5-325 mg tabs Senna-Docusate 8.6-50 mg tabs Additional Documentation: Delivered to the pt's room 02/17/22, $2.35 copay, paid brown. * Ruy Stratton, PT - 02/17/2022 12:31 PM EDT Physical Therapy Facility/Department: [facility] MED SURG Physical Therapy Initial Assessment Name: Jessica Ferrera : 1955 Date of Service: 02/17/2022 Discharge Recommendations: Patient would benefit from continued therapy after discharge Patient Diagnosis(es): The encounter diagnosis was Lumbar stenosis with neurogenic claudication. Past Medical History: has a past medical history of GERD (gastroesophageal reflux disease), Hypertension, and UTI (urinary tract infection). Past Surgical History: has a past surgical history that includes Hysterectomy; Ankle surgery; Elbowsurgery (Left); shoulder surgery (Right); Carpal tunnel release (Bilateral); Tonsillectomy; Appendectomy; Total knee arthroplasty (Bilateral); shoulder surgery (Left); Total hip arthroplasty (Right);Ankle surgery (Left); Lumbar spine surgery; Colonoscopy; Endoscopy, colon, diagnostic; lumbar laminectomy (02/16/2022); and laminectomy (N/A, 02/16/2022). Assessment Body Structures, Functions, Activity Limitations Requiring Skilled Therapeutic Intervention: Decreased endurance Assessment: Pt lacks endurance Therapy Prognosis: Good Decision Making: Medium Complexity Requires PT Follow-Up: Yes Activity Tolerance Activity Tolerance: Patient limited by endurance Plan Plan Plan: 5-7 times per week Current Treatment Recommendations: Gait training, Stair training, Endurance training Safety Devices Type of Devices: Left in bed, Call light within reach Restraints Restraints Initially in Place: No Restrictions Restrictions/Precautions Restrictions/Precautions: General Precautions Required Braces or Orthoses?: No Subjective Pain: 5/10 LBP General Patient assessed for rehabilitation services?: Yes Response To Previous Treatment: Not applicable Family / Caregiver Present: No Follows Commands: Within Functional Limits General Comment Comments: OK for PT per Reema Garcia RN Social/Functional History Social/Functional History Lives With: Family (Cregiver for mom w/ terminal illness, also son lives w/ her) Type of Home: House Home Layout: Two level, Able to Live on Main level with bedroom/bathroom Home Access: Stairs to enter with rails Entrance Stairs - Number of Steps: 2 Entrance Stairs - Rails: Left Bathroom Shower/Tub: Walk-in shower Bathroom Toilet: Handicap height Bathroom Equipment: Shower chair Bathroom Accessibility: Accessible Home Equipment: Cane, Walker, rolling, Wheelchair-manual Has the patient had two or more falls in the past year or any fall with injury in the past year?: No ADL Assistance: Independent Homemaking Assistance: Independent Homemaking Responsibilities: Yes Ambulation Assistance: Independent Transfer Assistance: Independent Active Commercial Tire Service Technician: Yes Occupation: 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, On disability 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 Leisure & Hobbies: Travel Vision/Hearing Vision Vision: Impaired Vision Exceptions: Wears glasses for reading Hearing Hearing: Within functional limits Cognition Orientation Overall Orientation Status: Within Normal Limits Orientation Level: Oriented X4 Cognition Overall Cognitive Status: WNL Objective Heart Rate: 96 Heart Rate Source: Monitor BP: (!) 117/56 BP Location: Right Arm MAP (Calculated): 76.33 Resp: 16 SpO2: 93 % O2 Device: None (Room air) Observation/Palpation Posture: Good Gross Assessment AROM: Within functional limits Strength: Within functional limits Coordination: Within functional limits Tone: Normal Sensation: Intact Strength RLE Strength RLE: WFL Comment: 10/02 B LE's Strength LLE Strength LLE: WFL Strength RUE Comment: See OT eval for B UE MMT Balance Sitting: Intact Standing: Intact Bed mobility Rolling to Left: Modified independent Rolling to Right: Modified independent Supine to Sit: Modified independent Sit to Supine: Modified independent Scooting: Modified independent Transfers Sit to Stand: Stand by assistance Stand to sit: Stand by assistance Stand Pivot Transfers: Stand by assistance Ambulation Surface: level tile Device: No Device Assistance: Stand by assistance Gait Deviations: None Distance: 90' x 1 Comments: Back to EOB,awaiting DATA ENTRY PROCESSOR for hygiene activities Balance Posture: Good Sitting - Static: Good Sitting - Dynamic: Good Standing - Static: Good Standing - Dynamic: Good OutComes Score AM-PAC Score Tinneti Score Goals Short Term Goals Time Frame for Short term goals: 6 treatments Short term goal 1: Independent ambulation 300' x 1 Short term goal 2: Independently ascend/descend 2 steps w/ 1 HR Short term goal 3: Tolerate 30 min ther act Patient Goals Patient goals : Home and back to normal activity Education Patient Education Education Given To: Patient Education Provided: Role of Therapy;Plan of Care;Energy Conservation Education Provided Comments: Energy conservation handout Education Method: Printed Information/Hand-outs;Verbal Barriers to Learning: None Education Outcome: Verbalized understanding Therapy Time Individual Concurrent Group Co-treatment Time In 921 (Treatment time 26 minutes) Time Out 957 Minutes 36 Ruy Stratton PT * Quique Mojica MD - 02/17/2022 7:49 AM EDT [facility] Attending Progress Note 02/17/2022 7:49 AM Jessica Tez Iban [id number] SUBJECTIVE: doing well. Has been up walking. Voiding well. Pain controlled. Denies any leg symptoms. No CP/SOB OBJECTIVE Physical VITALS: BP 123/68 Pulse 81 Temp 98.1 F (36.7 C) (Oral) Resp 16 Ht 5' 4 (1.626 m) Wt 235 lb (106.6 kg) SpO2 93% BMI 40.34 kg/m Dressing C/D/I NEUROLOGIC: Alert and Oriented x 3. Strength 5/5 HF, 5/5 Q, 5/5 TA, 5/5 EHL, 5/5 GS. 5/5 D, 5/5 B, 5/5 T, 5/5 WE, 5/5 WF, 5/5 I Sensation intact. Data CBC with Differential: Lab Results Component Value Date/Time WBC 13.6 02/17/2022 06:52 AM RBC 3.88 02/17/2022 06:52 AM HGB 9.8 02/17/2022 06:52 AM HCT 32.5 02/17/2022 06:52 AM PLT 269 02/17/2022 06:52 AM MCV 83.8 02/17/2022 06:52 AM MCH 25.3 02/17/2022 06:52 AM MCHC 30.2 02/17/2022 06:52 AM RDW 14.9 02/17/2022 06:52 AM LYMPHOPCT 11 02/17/2022 06:52 AM MONOPCT 5 02/17/2022 06:52 AM BASOPCT 0 02/17/2022 06:52 AM MONOSABS 0.63 02/17/2022 06:52 AM LYMPHSABS 1.47 02/17/2022 06:52 AM EOSABS <0.03 02/17/2022 06:52 AM BASOSABS 0.03 02/17/2022 06:52 AM DIFFTYPE NOT REPORTED 01/30/2013 05:44 PM BMP: Lab Results Component Value Date/Time NA 138 02/17/2022 06:52 AM K 4.9 02/17/2022 06:52 AM CL 108 02/17/2022 06:52 AM CO2 24 02/17/2022 06:52 AM BUN 9 02/17/2022 06:52 AM LABALBU 4.3 01/30/2013 05:44 PM CREATININE 0.93 02/17/2022 06:52 AM CALCIUM 8.5 02/17/2022 06:52 AM GFRAA >60 02/17/2022 06:52 AM LABGLOM >60 02/17/2022 06:52 AM GLUCOSE 145 02/17/2022 06:52 AM Current Inpatient Medications Current Facility-Administered Medications: albuterol sulfate HFA (PROVENTIL;VENTOLIN;PROAIR) 108 (90 Base) MCG/ACT inhaler 1 puff, 1 puff, Inhalation, Q6H PRN baclofen (LIORESAL) tablet 10 mg, 10 mg, Oral, TID PRN pantoprazole (PROTONIX) tablet 40 mg, 40 mg, Oral, Daily lisinopril (PRINIVIL;ZESTRIL) tablet 20 mg, 20 mg, Oral, Daily fluticasone (FLONASE) 50 MCG/ACT nasal spray 2 spray, 2 spray, Each Nostril, Daily traZODone (DESYREL) tablet 100 mg, 100 mg, Oral, QHS PRN 0.9 % sodium chloride infusion, , IntraVENous, Continuous sodium chloride flush 0.9 % injection 5-40 mL, 5-40 mL, IntraVENous, 2 times per day sodium chloride flush 0.9 % injection 5-40 mL, 5-40 mL, IntraVENous, PRN 0.9 % sodium chloride infusion, , IntraVENous, PRN morphine (PF) injection 2 mg, 2 mg, IntraVENous, Q2H PRN OR morphine sulfate (PF) injection 4 mg, 4 mg, IntraVENous, Q2H PRN hydrOXYzine HCl (ATARAX) tablet 10 mg, 10 mg, Oral, Q8H PRN promethazine (PHENERGAN) tablet 12.5 mg, 12.5 mg, Oral, Q6H PRN OR ondansetron (ZOFRAN) injection 4 mg, 4 mg, IntraVENous, Q6H PRN polyethylene glycol (GLYCOLAX) packet 17 g, 17 g, Oral, Daily sennosides-docusate sodium (SENOKOT-S) 8.6-50 MG tablet 1 tablet, 1 tablet, Oral, BID oxyCODONE-acetaminophen (PERCOCET) 5-325 MG per tablet 1 tablet, 1 tablet, Oral, Q4H PRN OR oxyCODONE-acetaminophen (PERCOCET) 5-325 MG per tablet 2 tablet, 2 tablet, Oral, Q4H PRN dexamethasone (PF) (DECADRON) injection 6 mg, 6 mg, IntraVENous, Q8H ASSESSMENT AND PLAN 66 y.o. female status post L3-4 laminectomy post op day # 1 1. PT- WBAT 2. Pain control 3. EPC 4. D/C plan for home today 5. Ortho [id number] Discussion of Medical Necessity for Use of Assistive Device after Spine Surgery I discussed today, face to face, the patient's mobility needs after their spine operation. The patient will require the use of a walker now and for at least 30 days continuously because of impaired gait and the necessity of joint support for safe ambulation after spine surgery. Walker is the optionas cane will not satisfactorily provide stability after surgery. Quique Mojica MD [facility] Sp[facility] Spine Surgeon [phone] * Regina Pizarro RN - 02/16/2022 6:26 PM EDT The patient arrived to the room from PACU; awake and alert, call light in reach. The patient was oriented to the room, call light, safety and bed mechanics. * Manda Dueñas PT - 02/16/2022 1:24 PM EDT Images from the original note were not included. Physical Therapy Physical Therapy Cancel Note DATE: 02/16/2022 NAME: Jessica Ferrera : 1955 Patient not seen this date for Physical Therapy due to: Pt. Still in PACU at 1730. Will evaluate in AM documented in this encounterBON [facility] [employer] Work Phone: 1(746) 619-858309-19-2022 Hospital Discharge instructions* Discharge Instructions* Quique Mojica MD - 02/16/2022 8:42 AM EDT No bending or twisting back for 6 weeks No lifting over 15 pounds for 6 weeks Dry dressing changes daily x 1wk. Start in 2 days No NSAIDS x 5 days Stiches are dissolvable and do not need to be removed Call for any fevers, wound redness, swelling or drainage after 4 days [phone] May shower in 2 days No tub baths for 6 weeks Quique Mojica MD [facility] Orthopaedics and Spine Spine Surgeon Keep it Clean - Post-Operative Home instructions These instructions are to help you have the best possible recovery after your surgical procedure. Brenda is here to support you. If you have questions, call [phone] Wednesday through Wednesday from 7:30AM to 8:30PM to speak to a nurse. If you need to speak to someone outside of these hours, call your physician. Incision Do s and Don ts Do wash hands before and after dressing changes or when you have had any contact with your incision. Use hand flight radio officer or antibacterial soap. Do keep your incision clean and dry. It s OK to wash the skin around your incision with mild soap and water. Do change your dressing as you were told. Do notify your doctor if the dressing becomes wet or dirty. Do use a clean washcloth every time when cleaning your incision. Do sleep on clean linens. Do keep pets away from incision site. Don t sit in a bathtub, pool, or hot tub until your incision is fully closed and any drains are removed. Don t scrub, pick, scratch, or pull at your incision. Don t use oils, lotions, or creams on your incision unless your healthcare provider approves it. Follow-up You will have one or more follow-up visits with your healthcare provider. These are needed to checkhow well you re healing. Your drain, stitches, or davina may also be removed during these visits. Do not miss your follow-up visit, even if you are feeling better. Call your healthcare provider right away if you have the following: Fever of 100.4 F (38 C) or higher, or as advised by your healthcare provider. Chest pain or trouble breathing. Pain or tenderness in your leg(s). Increased pain, redness, swelling, bleeding, or foul-smelling drainage at the incision site. Incision changes, separates or is hot to the touch. Problems with the drain if you have one. Itchy, swollen skin; skin rash. Medicines, Diet, and Activity: Refer to your discharge paperwork for further instructions * Attachments The following attachments cannot be sent through Care Everywhere. * Lumbar Laminectomy: Post-op (Indian) * Constipation (Indian) * DVT (Deep Vein Thrombosis): General Info (Indian) * acetaminophen and oxycodone (Indian) * tizanidine (Indian) * ondansetron (oral) (Indian) * docusate and senna (Indian) documented in this encounterB[facility] Work Phone: 1(526) 524-298506-23-2022 History of Present illness Narrative* Monica Wallace Ma - 11/20/2021 9:33 AM EDT PVR = 0 ml Via bladder scan. * Dallas Palmer MD - 11/20/2021 9:30 AM EDT [facility] PELVIC MEDICINE AND RECONSTRUCTIVE SURGERY HISTORY OF PRESENT ILLNESS: Jessica Ferrera is a 66 year old female here today for a follow up regarding UTI. Last OV with Dr. Palmer 06/05/2021 1. 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 estradiol (ESTRACE) 0.01 % (0.1 mg/gram) vaginal cream 1 g. traZODone (DESYREL) 100 mg tablet Take 100 mg by mouth daily at bedtime. lisinopril (ZESTRIL, PRINIVIL) 20 mg tablet lisinopril 20 mg tablet Take 1 tablet every day by oralroute. ibuprofen (MOTRIN) 800 mg tablet Take 800 mg by mouth every 6 hours as needed. esomeprazole (NEXIUM) 40 mg capsule Take 40 mg by mouth. No current facility-administered medications for this visit. Past Family History: FAMILY HISTORY Problem Relation Age of Onset Hyperlipidemia Mother Hypertension Father age 60 Cancer Father prostate and leukemia other (heart attack) Father Hypertension Brother Hypertension Brother Cancer Brother brain CA age 45 other (multiple myeloma) Son Past Medical History: PAST MEDICAL HISTORY Diagnosis Date Blood clotting disorder (HCC) Lupus Anticoagulant- last (2) were negative Endometriosis Fibromyalgia Frequent UTI Raynaud disease Thrombocytopenia (HCC) Past Surgical History: PAST SURGICAL HISTORY Procedure Laterality Date ANKLE SURGERY HX Left x 3 APPENDECTOMY APPENDECTOMY HX ARTHRP KNE CONDYLE&PLATU MEDIAL&LAT COMPARTMENTS Left and Right CARPAL TUNNEL bilateral CYSTO.PANENDO 06/05/2021 CYSTOURETHROSCOPY 06/20/15 Cystoscopy; Dr. Palmer; Leanne KENDALL [facility] ELBOW SURGERY HX Left HYSTERECTOMY HX 1995 left overy and hysterectomy. ROTATOR CUFF REPAIR 2013,2014 Left x 2 SHOULDER SURGERY HX Right TONSILLECTOMY HX TONSILLECTOMY HX Past Social History: Social History Tobacco Use Smoking status: Never Smoker Smokeless tobacco: Never Used Substance Use Topics Alcohol use: Yes Comment: rare Drug use: No Tests Reviewed: pvr 0 IMPRESSION: having renal US urine neg today possible CT if above neg discussed otherwise ID see other rx non antibiotic Dallas Palmer MD [facility] NotePROCEDURE: XR FOOT LT MIN 3 VIEWS COMPARISON: 10/01/2021 HISTORY: Pain in left foot FINDINGS: BONES:No acute fracture or dislocation. Moderate enthesopathic spurring of the calcaneus at the plantar insertion. Mild degenerative changes most significant in the midfoot SOFT TISSUES:Negative. No visible soft tissue swelling. EFFUSION:None visible. OTHER: Negative. IMPRESSION: Stable degenerative changes Electronically authenticated by: JOSE ALBERTO STEPHEN Date: 2021-11-05 17:28[facility] note* Diagnosis Screening for genitourinary condition- Primary Screening for other and unspecified genitourinary condition Recurrent UTI Urinary tract infection, site not specified Vaginal atrophy Postmenopausal atrophic vaginitis documented in this encounter [facility] noteNo assessment information availableKnox [facility] Work Phone: Evaluation note* Diagnosis Spinal stenosis, lumbar region with neurogenic claudication- Primary Lumbar stenosis with neurogenic claudication Spinal stenosis, lumbar region, with neurogenic claudication Hypertension Unspecified essential hypertension GERD (gastroesophageal reflux disease) Esophageal reflux documented in this encounter [employer] Phone: evaluation note* Diagnosis Iron deficiency anemia secondary to inadequate dietary iron intake documented in this encounter [facility] note* Diagnosis Iron deficiency anemia secondary to inadequate dietary iron intake- Primary Pulmonary nodules Other nonspecific abnormal finding of lung field Mediastinal lymphadenopathy Enlargement of lymph nodes Idiopathic cytopenia of undetermined significance (ICUS) documented in this encounter [facility] note* Diagnosis Iron deficiency anemia secondary to inadequate dietary iron intake- Primary Thrombocytopenia (HCC) Thrombocytopenia, unspecified Lung nodules Other nonspecific abnormal finding of lung field documented in this encounter [facility] note* Diagnosis Thrombocytopenia (HCC)- Primary Thrombocytopenia, unspecified Iron deficiency anemia secondary to inadequate dietary iron intake [facility] Narrative No data available for this section [facility] No data available for this section [facility] for [facility] Narrative* Auth/Cert Specialty Diagnoses / Procedures Referred By Contac t Referred To Contact Diagnoses Lumbar spinal stenosis LUMBAR SPINAL STENOSIS Procedures [place] LAMINECTOMY,>2 SGMT,LUMBAR LAMINEC/FACETECT/FORAMIN,MARCIAL MBAR 1 SEG L3-4 LUMBAR LAMINECTOMY POSTERIOR ABOVE PREVIOUS L 4-5 FUSION Quique Mojica MD [address] [place] [address] [facility] [address] [place] [address] Referral ID Status Reason Start Date Expiration Date Visits Re quested Visits Authorized [id number] 1 1 ANGEL DURHAM [employer] Work Phone: Summary Purpose Family History Relationship Condition Age at Onset Recorded Date/T kentrell father Hypertension Unknown Heart disease Unknown Malignant neoplasm Unknown Not Specified Hypertension Unknown Advance Directives Documents on File Type Date Recorded 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 Advance Directive(s) 07/22/2018 3:03 PM Ad vanced Directives Advance Directive Response Recorded Date/ Time Advance Directives No November 15 4:00pm Latest Code Status on File Code Status Date Activated Date Inactivated Comments Full Code 02/16/2022 6:19 PM Chief Complaint and Reason for Visit Chief Complaint CTDZ Screening Chief Complaint Screening Reason for Referral Specialty Diagnoses / Procedures Referred By Contac t Referred To Contact CT IMAGING Diagnoses Lung nodules Procedures CT CHEST W IVCON DIAGNOSTIC COMPUTED TOMOGRAPHY THORAX W/CONTRAST Jose Bryant MD [address] [place] [address] [place] [address] Ct Imaging Referral ID Status Reason Start Date Expiration Date Visits Requested Visits Authorized [id number] Authorized Auto-Generat ed Referral 3 11/06/2023 1 1 Additional Source Comments INFORMATION SOURCE (unrecogn ized section and content) DATE CREATED AUTHOR 09/24/2021 [facility] dical Specialist DATE CREATED AUTHOR AUTHOR'S ORGANIZ ATION 10/09/2022 [facility] DATE CREATED AUTHOR AUTHOR'S ORGANIZ ATION 10/12/2022 [facility] DATE CREATED AUTHOR AUTHOR'S ORGANIZ ATION 01/12/2023 [facility] DATE CREATED AUTHOR AUTHOR'S ORGANIZ ATION 03/01/2023 [facility] DATE CREATED AUTHOR AUTHOR'S ORGANIZ ATION 04/01/2023 [facility] Source Comments (unrecognize d section and content) In the event this informatio n is protected by the Federal Confidentiality of Alcohol and Drug Abuse Patient Records regulations: The Federal rules restrict any use of the information to criminally investigate or prosecute any alcohol or drug abuse patient.[facility] HospitalIn the event this information is protected by the Federal Confidentiality of Alcohol and Drug Abuse Patient Records regulations: The Federal rules restrict any use of the information to criminally investigate or prosecute any alcohol or drug abuse patient.[facility] HospitalIn the event this information is protected by the Federal Confidentiality of Alcohol and Drug Abuse Patient Records regulations: The Federal rules restrict any use of the information to criminally investigate or prosecute any alcohol or drug abuse patient.[facility] HospitalIn the event this information is protected by the Federal Confidentiality of Alcohol and Drug Abuse Patient Records regulations: The Federal rules restrict any use of the information to criminally investigate or prosecute any alcohol or drug abuse patient.[facility] HospitalIn the event this information is protected by the Federal Confidentiality of Alcohol and Drug Abuse Patient Records regulations: The Federal rules restrict any use of the information to criminally investigate or prosecute any alcohol or drug abuse patient.[facility] HospitalIn the event this information is protected by the Federal Confidentiality of Alcohol and Drug Abuse Patient Records regulations: The Federal rules restrict any use of the information to criminally investigate or prosecute any alcohol or drug abuse patient.[facility] Reason for Visit (unrecogniz ed section and content) Reason Comments Follow Up F/U RECURRENT UTI - NOTHING HELPING Reason Comments Appointment Results Reason Comments Patient Question appointment Reason Comments 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 Reason Comments Anemia 3 month follow up Care Teams (unrecognized sec tion and content) Team Status: Active Member Role Status Dates Ricardo Hooper MD Primary Care Provider Active Team Status: Inactive Member Role Status Dates Ricardo Hooper MD Primary Care Provider Active Referral Self Attending Provider Active Managing Cognitive Engineer Relationship Specialty Start Date End Date Ricardo Hooper MD [address] [place] [address] PCP - General Family Practice 01/11/19 Madisyn Lara MD [address] [facility] [address] [place] [address] Primary Staff Physician Cardiology 08/16/18 Team Status: Inactive Member Role Status Dates Ricadro Hooper MD Primary Care Provider Active Rocky Villasenor MD Attending Provider Active Team Status: Inactive Member Role Status Dates Ricardo Hooper MD Primary Care Provider Active Enmanuel Burton DO Attending Provider Active Managing Cognitive Engineer Relationship Specialty Start Date End Date Ricardo Hooper MD [address] [place] [address] PCP - General Family Medicine 09/16/21 Managing Cognitive Engineer Relationship Specialty Start Date End Date Ricardo Hooper MD [address] [place] [address] PCP - General Family Medicine 09/16/21 Managing Cognitive Engineer Relationship Specialty Start Date End Date Ricardo Hooper MD [address] [place] [address] PCP - General Family Medicine 01/11/19 Madisyn Lara MD [address] [facility] [place] [address] Primary Staff Physician Cardiology 08/16/18 Managing Cognitive Engineer Relationship Specialty Start Date End Date Ricardo Hooper MD [address] [place] [address] PCP - General Family Medicine 01/11/19 Madisyn Lara MD [address] [facility] [place] [address] Primary Staff Physician Cardiology 08/16/18 Managing Cognitive Engineer Relationship Specialty Start Date End Date Ricardo Hooper MD [address] [place] [address] PCP - General Family Medicine 01/11/19 Madisyn Lara MD [address] [facility] [place] [address] Primary Staff Physician Cardiology 08/16/18 Managing Cognitive Engineer Relationship Specialty Start Date End Date Ricardo Hooper MD PCP - General Family Medicine 01/11/19 Madisyn Lara MD [address] [facility] [place] [address] Primary Staff Physician Cardiology 08/16/18 Managing Cognitive Engineer Relationship Specialty Start Date End Date Ricardo Hooper MD PCP - General Family Medicine 01/11/19 Madisyn Lara MD [address] [place] [address] Primary Staff Physician Cardiology 08/16/18 Goals (unrecognized section and content) Goals may be documented in a n alternate section No data available for this sectionGoals may be documented in an alternate section Ordered Prescriptions (unrec ognized section and content) Prescription Sig Dispensed Refills Start Date End Da te sennosides-docusate sodium (SENOKOT-S) 8.6-50 MG tablet Take 1 tablet by mouth 2 times daily 60 tablet 0 02/17/2022 oxyCODONE-acetaminophen (PERCOCET) 5-325 MG per tabletIndications:Lumbar stenosis with neurogenic claudication Take 1-2 tablets by mouth every 4 hours as needed for Pain for up to 7 days. 60 tablet 0 02/17/2022 02/24/2022 Scheduled Active and Recently Administ ered Medications (unrecognized section and content) Medication Order 02/15/2022 02/16/2022 02/17/2022 acetaminophen (TYLENOL) tablet 1,000 mg (COMPLETED) 1,000 mg, Oral, ONCE, 1 dose, On Wed02/16/22 at 1100, Maximum dose of acetaminophen is 4000 mg from all sources in 24 hours., Pre-op (day of surgery) 1102 (Given - Provider: Paula Isabel RN) dexamethasone (PF) (DECADRON) injection 6 mg (COMPLETED) 6 mg, IntraVENous, EVERY 8 HOURS, First dose on Wed02/16/22 at 2200, For 3 doses, Post-op 2044 (Given - Provider: Becky Villavicencio RN) 0524 (Given - Provider: Becky Villavicencio RN)1337 (Given - Provider: Regina Pizarro RN) fluticasone (FLONASE) 50 MCG/ACT nasal spray 2 spray 2 spray, Each Nostril, DAILY, First dose on Wed02/16/22 at 1845, Until Discontinued, Please select a reason the therapeutic interchange was not accepted: Okay for Pharmacy to Substitute, Post-op 183 (Not Given - Provider: Regina Pizarro RN - Reason: Patient/family refused) 0851 (Not Given - Provider: Regina Pizarro RN - Reason: Patient/family refused) gabapentin (NEURONTIN) capsule 300 mg (COMPLETED) 300 mg, Oral, ONCE, 1 dose, On Wed02/16/22 at 1100, Pre-op (day of surgery) 1102 (Given - Provider: Paula Isabel RN) lisinopril (PRINIVIL;ZESTRIL) tablet 20 mg (CANCELED) 20 mg, Oral, DAILY, First dose on Wed02/16/22 at 1845, Until Discontinued, Post-op 190 (Given - Provider: Regina Pizarro RN) pantoprazole (PROTONIX) tablet 40 mg 40 mg, Oral, DAILY, First dose on Wed02/16/22 at 1845, Until Discontinued, Do not crush or break. Substituted for esomeprazole, Post-op 2043 (Given - Provider: Becky Villavicencio RN) 0948 (Given - Provider: Regina Pizarro RN) polyethylene glycol (GLYCOLAX) packet 17 g 17 g, Oral, DAILY, First dose on Wed02/16/22 at 1845, Until Discontinued, Post-op 190 (Not Given - Provider: Becky Villavicencio RN - Reason: Patient/family refused) 0948 (Given - Provider: Regina Pizarro RN) sennosides-docusate sodium (SENOKOT-S) 8.6-50 MG tablet 1 tablet 1 tablet, Oral, 2 TIMES DAILY, First dose on Wed02/16/22 at 2100, Until Discontinued, Post-op 190 (Given - Provider: Regina Pizarro RN) 0948 (Given - Provider: Regina Pizarro RN)2100 (Due) sodium chloride flush 0.9 % injection 5-40 mL 5-40 mL, IntraVENous, EVERY 12 HOURS SCHEDULED (2 times per day), First dose on Wed02/16/22 at 2100, Until Discontinued, For Line Patency: Peripheral IV = 5 mL; Midline or Central Line = 10 mL/lumen. If following IV push medication, administer flush at same rate as the IV push. Flush volume is determined by type of infusion therapy being given. For non-viscous solutions use: Peripheral IV = 5 mL Midline or Central Line = 10 mL/lumen For viscous solutions (i.e. blood components, parenteral nutrition, contrast media, or after obtaining blood sample) use: Peripheral IV = 10 mL Midline or Central Line = 20 mL/lumen, Post-op 203 (Not Given - Provider: Becky Villavicencio RN - Reason: IV Fluid Infusing) 0850 (Not Given - Provider: Regina Pizarro RN - Reason: IV Fluid Infusing)2100 (Due) tiZANidine (ZANAFLEX) tablet 4 mg (COMPLETED) 4 mg, Oral, ONCE, 1 dose, On Wed02/16/22 at 1100, Pre-op (day of surgery) 1102 (Given - Provider: Paula Isabel RN) vancomycin (VANCOCIN) 1,500 mg in dextrose 5 % 250 mL IVPB (COMPLETED) 1,500 mg, IntraVENous, EVERY 12 HOURS, 1 dose, First dose on Wed02/16/22 at 1845, Antimicrobial Indications: Surgical Prophylaxis, Post-op 2252 (New Bag - Provider: Becky Villavicencio RN) 0022 (Stopped - Provider: Becky Villavicencio RN) Continuous Medication Order 02/15/2022 02/16/2022 02/17/2022 0.9 % sodium chloride infusion IntraVENous, at 125 mL/hr, CONTINUOUS, Starting on Wed02/16/22 at 1815, Post-op 1800 (New Bag - Provider: Patito Palafox RN) 0408 (New Bag - Provider: Akilah Zaman RN)0854 (Stopped - Provider: Regina Pizarro, NING) lactated ringers infusion (CANCELED) IntraVENous, at 50 mL/hr, CONTINUOUS, Starting on Wed02/16/22 at 1115, Substitute normal saline for patients with renal insufficiency/failure, Pre-op (day of surgery) 1126 (New Bag - Provider: Paula Isabel RN) 1157 (Stopped - Provider: Regina Pizarro RN) PRN Medication Order 02/15/2022 02/16/2022 02/17/2022 0.9 % sodium chloride infusion IntraVENous, at 5-250 mL/hr, PRN, if patient receiving piggyback infusions and maintenance fluids are not ordered OR KVO fluids to protect IV site / prevent frequent line interruptions/ long duration, Starting on Wed02/16/22 at 1819, For piggyback infusion, administer at same rate as piggyback for a total of 25 mL. Enter 25 mL into dose field and piggyback rate into rate field of order. If piggyback is infusing at a rate less than 100 mL/hr, enter 25 mL into dose field and 100 mL/hr into rate field of order. For KVO fluids, enter rate of 20 mL/hr or less into rate field of order., Post-op albuterol sulfate HFA (PROVENTIL;VENTOLIN;PROAIR) 108 (90 Base) MCG/ACT inhaler 1 puff 1 puff, Inhalation, EVERY 6 HOURS PRN, Starting on Wed02/16/22 at 1819, Until Discontinued, Wheezing, Shortness of Breath, Initiate RT Bronchodilator Protocol: No, Post-op baclofen (LIORESAL) tablet 10 mg 10 mg, Oral, 3 TIMES DAILY PRN, Starting on Wed02/16/22 at 1820, Until Discontinued, Muscle spasms, Post-op bupivacaine-EPINEPHrine PF (MARCAINE-w/EPINEPHRINE) 0.5% -[id number] injection (CANCELED) PRN, Starting on Wed02/16/22 at 1357, Until Wed02/16/22 at 1604, Intra-op 1357 (Given - Provider: Quique Mojica MD) gelatin adsorbable (GELFOAM) sponge (CANCELED) PRN, Starting on Wed02/16/22 at 1504, Intra-op 1504 (Given - Provider: Quique Mojica MD) HYDROmorphone HCl PF (DILAUDID) injection 0.5 mg (CANCELED) HYDROmorphone (DILAUDID) 1.5mg IV is equivalent to morphine 10mg IV, 0.5 mg, IntraVENous, EVERY 5 MIN PRN, 4 doses, Starting on Wed02/16/22 at 1103, Until Wed02/16/22 at 1815, Pain Severe (7-10), Phase I - Initial therapy for severe pain., PACU only 1700 (Given - Provider: Patito Palafox RN)170 (Given - Provider: Patito Palafox RN) hydrOXYzine HCl (ATARAX) tablet 10 mg 10 mg, Oral, EVERY 8 HOURS PRN, Starting on Wed02/16/22 at 1819, Until Discontinued, Itching, Post-op morphine (PF) injection 2 mg(Linked Group 1) 2 mg, IntraVENous, EVERY 2 HOURS PRN, Starting on Wed02/16/22 at 1819, Until Discontinued, Pain Moderate (4-6), If oral and IV narcotics ordered, use oral first and only use IV if oral is ineffective or cannot take oral. Do Not give oral and IV within 1 hour of each other unless specifically ordered., Post-op 2248 (Given - Provider: Becky Villavicencio RN) morphine sulfate (PF) injection 4 mg(Linked Group 1) 4 mg, IntraVENous, EVERY 2 HOURS PRN, Starting on Wed02/16/22 at 1819, Until Discontinued, Pain Severe (7-10), If oral and IV narcotics ordered, use oral first and only use IV if oral is ineffective or cannot take oral. Do Not give oral and IV within 1 hour of each other unless specifically ordered., Post-op 2248 (See Alternative - Provider: Becky Villavicencio RN) ondansetron (ZOFRAN) injection 4 mg(Linked Group 2) 4 mg, IntraVENous, EVERY 6 HOURS PRN, Starting on Wed02/16/22 at 1819, Until Discontinued, Nausea, Vomiting, Administer if oral route cannot be used., Post-op oxyCODONE-acetaminophen (PERCOCET) 5-325 MG per tablet 1 tablet(Linked Group 3) Mg/kg dosing is based on the oxycodone component., 1 tablet, Oral, EVERY 4 HOURS PRN, Starting on Wed02/16/22 at 1819, Until Discontinued, pain 2-5, Maximum dose of acetaminophen is 4000 mg from all sources in 24 hours., Post-op 2043 (See Alternative - Provider: Becky Villavicencio RN) 0112 (See Alternative - Provider: Becky Villavicencio RN)0523 (See Alternative - Provider: Becky Villavicencio RN)1051 (See Alternative - Provider: Regina Pizarro RN) oxyCODONE-acetaminophen (PERCOCET) 5-325 MG per tablet 2 tablet(Linked Group 3) Mg/kg dosing is based on the oxycodone component., 2 tablet, Oral, EVERY 4 HOURS PRN, Starting on Wed02/16/22 at 1819, Until Discontinued, pain 6-10, Maximum dose of acetaminophen is 4000 mg from all sources in 24 hours., Post-op 2044 (Given - Provider: Becky Villavicencio RN) 0112 (Given - Provider: Becky Villavicencio RN)0523 (Given - Provider: Becky Villavicencio RN)1051 (Given - Provider: Regina Pizarro RN) promethazine (PHENERGAN) tablet 12.5 mg(Linked Group 2) 12.5 mg, Oral, EVERY 6 HOURS PRN, Starting on Wed02/16/22 at 1819, Until Discontinued, Nausea, Vomiting, Post-op sodium chloride 0.9 % 10 mL with polymyxin B 500,000 Units (CANCELED) PRN, Starting on Wed02/16/22 at 1505, Intra-op 1505 (Given - Provider: Quique Mojica MD) sodium chloride flush 0.9 % injection 5-40 mL 5-40 mL, IntraVENous, PRN, Starting on Wed02/16/22 at 1819, Until Discontinued, Line Care, After every IV line use, For Line Patency: Peripheral IV = 5 mL; Midline or Central Line = 10 mL/lumen. If following IV push medication, administer flush at same rate as the IV push. Flush volume is determined by type of infusion therapy being given. For non-viscous solutions use: Peripheral IV = 5 mL Midline or Central Line = 10 mL/lumen For viscous solutions (i.e. blood components, parenteral nutrition, contrast media, or after obtaining blood sample) use: Peripheral IV = 10 mL Midline or Central Line = 20 mL/lumen, Post-op surgiflo hemostatic matrix (CANCELED) PRN, Starting on Wed02/16/22 at 1504, Intra-op 1504 (Given - Provider: Quique Mojica MD) thrombin kit (CANCELED) PRN, Starting on Wed02/16/22 at 1504, Intra-op 1504 (Given - Provider: Quique Mojica MD) traZODone (DESYREL) tablet 100 mg 100 mg, Oral, BEDTIME PRN, Starting on Wed02/16/22 at 1823, Until Discontinued, Sleep, Post-op Linked Groups Order Group 1: morphine (PF) injection 2 mgJump to med 2 mg, IntraVENous, EVERY 2 HOURS PRN, Starting on Wed02/16/22 at 1819, Until Discontinued, Pain Moderate (4-6)
If oral and IV narcotics ordered, use oral first and only use IV if oral is ineffective or cannot take oral. Do Not give oral and IV within 1 hour of each other unless specifically ordered.
Post-op Or morphine sulfate (PF) injection 4 mgJump to med 4 mg, IntraVENous, EVERY 2 HOURS PRN, Starting on Wed02/16/22 at 1819, Until Discontinued, Pain Severe (7-10)
If oral and IV narcotics ordered, use oral first and only use IV if oral is ineffective or cannot take oral. Do Not give oral and IV within 1 hour of each other unless specifically ordered.
Post-op Group 2: promethazine (PHENERGAN) tablet 12.5 mgJump to med 12.5 mg, Oral, EVERY 6 HOURS PRN, Starting on Wed02/16/22 at 1819, Until Discontinued, Nausea, Vomiting, Post-op Or ondansetron (ZOFRAN) injection 4 mgJump to med 4 mg, IntraVENous, EVERY 6 HOURS PRN, Starting on Wed02/16/22 at 1819, Until Discontinued, Nausea, Vomiting
Administer if oral route cannot be used.
Post-op Group 3: oxyCODONE-acetaminophen (PERCOCET) 5-325 MG per tablet 1 tabletJump to med Mg/kg dosing is based on the oxycodone component.
1 tablet, Oral, EVERY 4 HOURS PRN, Starting on Wed02/16/22 at 1819, Until Discontinued, pain 2-5
Maximum dose of acetaminophen is 4000 mg from all sources in 24 hours.
Post-op Or oxyCODONE-acetaminophen (PERCOCET) 5-325 MG per tablet 2 tabletJump to med Mg/kg dosing is based on the oxycodone component.
2 tablet, Oral, EVERY 4 HOURS PRN, Starting on Wed02/16/22 at 1819, Until Discontinued, pain 6-10
Maximum dose of acetaminophen is 4000 mg from all sources in 24 hours.
Post-op FOR RECORDS PERTAINING TO PATIENTS WHO ARE OR HAVE BEEN ENROLLED IN A CHEMICAL DEPENDENCY/SUBSTANCEABUSE PROGRAM, SOME INFORMATION MAY BE OMITTED. This clinical summary was aggregated from multiple sources. Caution should be exercised in using it in the provision of clinical care. This summary normalizes information from multiple sources, and as a consequence, information in this document may materially change the coding, format and clinical context of patient data. In addition, data may be omitted in some cases. CLINICAL DECISIONS SHOULD BE BASED ON THE PRIMARY CLINICAL RECORDS. [facility] [employer] provides no warranty or guarantee of the accuracy or completeness of information in this document.
== END 2023-04-20 11:28 | disposition home or self-care (01) ==
LOC: LAB 11:27
PROVIDERS: PCP Family Medicine; Visit Provider Nurse Practitioner Family
DX: R05.1 Acute cough (principal)
CPT/HCPCS: 87811

== ENCOUNTER 2023-04-27 14:11 | Outpatient (OUT) | payer MEDICARE, SELFPAY ==
[2023-04-27 14:45] LABS: Bilirubin Urine NEGATIVE (NEGATIVE); Blood Urine TRACE-I (NEGATIVE); Clarity Urine CLEAR (CLEAR); Color Urine YELLOW (YELLOW); Glucose Urine UA NEGATIVE (NEGATIVE); Ketones Urine NEGATIVE (NEGATIVE); Leukocyte Esterase Urine NEGATIVE (NEGATIVE); Nitrite Urine NEGATIVE (NEGATIVE); Protein Urine NEGATIVE (NEG/TRACE); Specific Gravity Urine >=1.030 (1.005-1.025); Urobilinogen Urine 0.2 EU/dL (0.2-1.0); pH Urine 5.5 (5.0-9.0)
[2023-04-27 15:29] LABS: Bacteria Urine SMALL #/HPF (NONE SEEN); Mucus Urine NONE SEEN (NONE SEEN); RBC Urine 0-2 #/HPF (0-2); Squamous Epithelial Cell Urine FEW #/LPF (NONE/RARE)
== END 2023-04-27 14:12 | disposition home or self-care (01) ==
LOC: LAB 14:12
PROVIDERS: PCP Family Medicine; Visit Provider Nurse Practitioner Family
DX: R30.0 Dysuria (principal)
CPT/HCPCS: 81001; 87086; 87150; 87186

== ENCOUNTER 2023-04-30 09:40 | Outpatient (OUT) | payer MEDICARE, SELFPAY ==
[2023-04-30 09:50] VITALS: BP 137/80; PULSE 86; RESP 18; TEMP 36.5; O2SAT 95
[2023-04-30 09:59] LABS: Estimated GFR (African America >60 (>=60); Estimated GFR (Non-African Ame 51 (>=60)
[2023-04-30] MEDS: ERTAPENEM SODIUM 1 GM in 0.9 % SODIUM CHLORIDE 50 ML IV (10:16)
--- NOTE | 2023-04-30 11:57 | PC.NURSE ---
1050IV site saline lock flushed, secured with coban. released ambulatory with instruction on upcoming infusion appt etc, patient verbalized understanding. released ambulatory
[2023-05-01] MEDS: ERTAPENEM SODIUM 1 GM in 0.9 % SODIUM CHLORIDE 50 ML IV (09:34)
[2023-05-02] MEDS: ERTAPENEM SODIUM 1 GM in 0.9 % SODIUM CHLORIDE 50 ML IV (09:32)
[2023-05-03] MEDS: ERTAPENEM SODIUM 1 GM in 0.9 % SODIUM CHLORIDE 50 ML IV (09:32)
[2023-05-03 09:43] VITALS: BP 127/84; PULSE 92; RESP 16; TEMP 36.3; O2SAT 95
--- NOTE | 2023-05-03 09:47 | PC.NURSE ---
0915: Pt. to [facility] amb. for daily antibiotic. Seated in recliner. VSS. Existing IV intact to right arm. Red and edematous at site. IV d/c'd, pressure to site. #24 gauge IV inserted to left forearm on second attempt per this RN. Pt. tolerated with minimal c/o. Flushes easily with no edema and no c/o pain. IV Invanz initiated as ordered. Pt. declines food. Drinking water.
--- NOTE | 2023-05-03 10:30 | PC.NURSE ---
1002: Kalani completed. Pt. without s&s of adverse reaction. IV to left arm to SLF and wrapped with Coban. 1005:Pt. d/c'd amb. to home.
[2023-05-04 09:24] VITALS: BP 163/89; PULSE 92; RESP 18; TEMP 36.6; O2SAT 98
--- NOTE | 2023-05-04 09:32 | PC.NURSE ---
0916: Pt. to [facility] amb. for daily antibiotic therapy. VSS. Existing iv intact to left forearm. Site without redness or edema. Flushes easily. Pt. denies pain at site. 0934: IV Invanz initiated at this time. Pt. denies needs or c/o.
[2023-05-04] MEDS: ERTAPENEM SODIUM 1 GM in 0.9 % SODIUM CHLORIDE 50 ML IV (09:34)
--- NOTE | 2023-05-04 10:24 | PC.NURSE ---
1005: Invanz completed at this time. IV site slightly red at site and pt. c/o tenderness. IV d/c'd, pressure to site. Pt. without adverse reaction to Invanz. 1010: Pt. d/c'd amb. to home
[2023-05-05] MEDS: ERTAPENEM SODIUM 1 GM in 0.9 % SODIUM CHLORIDE 50 ML IV (09:24)
[2023-05-05 10:11] VITALS: BP 158/80; PULSE 86; RESP 18; TEMP 37.1; O2SAT 96
--- NOTE | 2023-05-05 10:18 | PC.NURSE ---
0915: Pt. to [facility] amb for daily antibiotic therapy. Seated in recliner. Relays speaking with Tita Calix NP yesterday and told her she was having feelings of persistent UTI despite antibiotics. Urine culture was performed. Pt. also relays having an existing inguinal hernia and maybe thats the culprit of current symptoms. VSS. #22 gauge iv initiated to right lower forearm on first attempt. Flushes easily. Pt. tolerated without c/o. 0924: IV Invanz initiated at this time. Pt. without c/o. 0954: Antibiotic completed without s&s of adverse reaction. IV flushed with saline and to SLF. Site wrapped with Coban dressing. 0955: Pt. d/c'd amb. to home.
[2023-05-06] MEDS: ERTAPENEM SODIUM 1 GM in 0.9 % SODIUM CHLORIDE 50 ML IV (09:10)
[2023-05-06 09:20] VITALS: BP 138/82; PULSE 88; RESP 16; TEMP 36.2; O2SAT 98
--- NOTE | 2023-05-06 09:22 | PC.NURSE ---
0910: Pt. to [facility] amb. for daily antibiotic. Seated in recliner. VSS. Denies c/o. Pt. with existing 22 gauge IV to right distal forearm. Site without redness or edema. Slight bruising around site. Flushes easily. Pt. denies c/o pain. IV Invanz initiated at this time. Pt. denies c/o or needs at this time.
--- NOTE | 2023-05-06 10:16 | PC.NURSE ---
0945: IV Kalani completed at this time. IV to SLF. Site wrapped in Coban dressing. Pt. without c/o. D/c'd amb to home
[2023-05-07] MEDS: ERTAPENEM SODIUM 1 GM in 0.9 % SODIUM CHLORIDE 50 ML IV (08:56)
[2023-05-07 09:01] VITALS: BP 137/74; PULSE 86; RESP 18; TEMP 35.7; O2SAT 98
--- NOTE | 2023-05-07 09:48 | PC.NURSE ---
0845 Arrival ambulatory. IV site intact posterior aspect of rt arm, unable to obtain good blood return, but flusheseasily, no pain or edema. 0930 IV antibiotic infused. flushed saline lock. covered if site with coban to protect site. released ambulatory
[2023-05-08] MEDS: ERTAPENEM SODIUM 1 GM in 0.9 % SODIUM CHLORIDE 50 ML IV (09:35)
[2023-05-09] MEDS: ERTAPENEM SODIUM 1 GM in 0.9 % SODIUM CHLORIDE 50 ML IV (09:34)
== END 2023-05-09 10:25 | disposition home or self-care (01) ==
LOC: INF 05-07 07:20 → MS 05-08 09:26 → INF 05-09 12:35 → MS 05-09 12:37 → INF 05-09 12:38 → MS 05-09 12:38 → INF 05-09 12:38 → MS 05-09 12:38
PROVIDERS: PCP Family Medicine; Visit Provider Nurse Practitioner Family
DX: N39.0 Urinary tract infection, site not specified (principal)
CPT/HCPCS: 82565; 96365; 96366; J1335

== ENCOUNTER 2023-05-04 15:10 | Outpatient (OUT) | payer MEDICARE, SELFPAY ==
[2023-05-04 15:48] LABS: Bilirubin Urine NEGATIVE (NEGATIVE); Blood Urine NEGATIVE (NEGATIVE); Clarity Urine CLEAR (CLEAR); Color Urine LT. YELLOW (YELLOW); Glucose Urine UA NEGATIVE (NEGATIVE); Ketones Urine NEGATIVE (NEGATIVE); Leukocyte Esterase Urine NEGATIVE (NEGATIVE); Nitrite Urine NEGATIVE (NEGATIVE); Protein Urine NEGATIVE (NEG/TRACE); Specific Gravity Urine <=1.005 (1.005-1.025); Urobilinogen Urine 0.2 EU/dL (0.2-1.0)
== END 2023-05-04 15:11 | disposition home or self-care (01) ==
PROVIDERS: PCP Family Medicine; Visit Provider Family Medicine
DX: N39.0 Urinary tract infection, site not specified (principal)
CPT/HCPCS: 81003; 87086

== ENCOUNTER 2023-06-23 08:14 | Outpatient (OUT) | payer MEDICARE, SELFPAY ==
--- NOTE | 2023-06-23 08:16 | XR_ITS ---
The [address] [address] Patient Name: QUANG SALDIVAR MRN: [id number] date: 1955 Sex: F Assigned Patient Location: [facility] Current Patient Location: RAD Accession/Order Number: [id number] Exam Date: 06/23/2023 08:20 Report Date: 06/23/2023 08:41 At the request of: VERNELL FARRELL Procedure: XR chest 2V EXAMINATION: XR chest 2V HISTORY: Acute Bronchitis J20.9 COMPARISON: 07/18/2021 TECHNIQUE: PA and lateral FINDINGS: LUNGS: No significant pulmonary parenchymal abnormalities. Elevation the right hemidiaphragm, stable VASCULATURE: No increased pulmonary vasculature. PLEURA: No pneumothorax, effusion, or pleural thickening. CARDIAC: No cardiomegaly or cardiac silhouette abnormality. MEDIASTINUM: No visible mass or adenopathy. BONES: No fracture or visible bone lesion. OTHER: Negative. XR/XR chest 2V IMPRESSION: No acute cardiopulmonary process Electronically authenticated by: JOSE ALBERTO STEPHEN Date: 06/23/2023 08:41
--- OUTSIDE RECORDS SUMMARY | 2023-06-23 08:18 | XMS_ITS | CCD ---
Author Name Unknown Address [address] [place] [address] Organization [facility] Care Team Providers Care Switch Operators Supervisor Name Role Phone Ricardo Hooper MD Primary Care Provider [phone] Marco DANGELO, Madisyn Reagan Unavailable MD Ricardo Hooper Primary Care Provider [phone] Rocky Villasenor Attending Provider [phone] DO Enmanuel Burton Attending Provider Ricardo Hooper MD Primary Care Provider [phone] Ricardo Hooper MD Primary Care Provider [phone] Marco DANGELO, Madisyn Reagan Unavailable [phone] Ricardo Hooper MD Primary Care Provider [phone] Marco DANGELO, Madisyn Reagan Unavailable [phone] Ricardo Hooper MD Primary Care Provider [phone] DR RICARDO IYER Admitting Unavailable HOJenni ., DR SILVA Consulting Unavailable HOY ., DR SILVA Attending Unavailable HOY ., DR SILVA Primary Care Unavailable HOY ., DR SILVA Admitting Unavailable HOJenni ., DR SILVA Consulting Unavailable HOY ., DR SILVA Attending Unavailable HOY ., DR SILVA Primary Care Unavailable DR [...] ., DR SILVA Consulting Unavailable LAKSHMIPATHY ., NARSHRUTHI Admitting Tierra vailable HOY ., DR SILVA Primary Care Unavailable LAKSHMIPATHY ., VIN Attending Tierra vailable HOY ., DR SILVA Admitting Unavailable HOY ., DR SILVA Primary Care Unavailable HOY ., DR ISLVA Consulting Unavailable HOY ., DR SILVA Attending [...] Primary Care Unavailable EVERARDO PERALTA Attending Unavailable YALE, DR JOSE ALBERTO Long Consulting Unavailable EVERARDO PERALTA Admitting Unavailable EVERARDO PERALTA Consulting Unavailable VERNELL FARRELL Consulting Unavailable VERNELL FARRELL Attending Unavailable VERNELL FARRELL Admitting Unavailable HOJenni ., DR SILVA Primary Care Unavailable HOJenni ., DR SILVA Primary Care Unavailable CLARI GILLETTE Admitting Unavailable AIDE LONDON Consulting Unavailabl e CLARI GILLETTE Attending Unavailable CECE VOGT Admitting Unavailable SANDIE ., DR SILVA Primary Care Unavailable CECE VOGT Attending Unavailable HOJenni ., DR SILVA Admitting Unavailable HOY ., DR SILVA Attending Unavailable HOY ., DR SILVA Primary Care Unavailable LEOBARDO BRASHER Attending Unavailable QUENTIN ., LEOBARDO Admitting Unavailable SANDIE ., DR SILVA Primary Care Unavailable LEOBARDO BRASHER Consulting Unavailable DIEGO ., DR IRELAND Attending Unavailable DIEGO ., DR IRELAND Admitting Unavailable SANDIE ., DR SILVA Primary Care Unavailable DIEGO Doty, DR IRELAND Consulting Unavailable Ricardo Hooper Primary Care Physician [phone] Rocael Wayne Attending Unavailable QUIQUE MOJICA Referring Unavailable RICARDO HOOPER M Primary Care Unavailable QUIQUE MOJICA Referring Unavailable HOY, RICARDO M Primary Care Unavailable KRISTOF, QUIQUE Admitting Unavailable KRISTOF, QUIQUE Attending Unavailable BLOOD, JUVENAL P Consulting Unavailable HOY, RICARDO M Primary Care Unavailable MARVA HOBBS Consulting Unavailable JAIR, ALEXINULABEDIN Consulting Unavailable KRISTOF, QUIQUE Admitting Unavailable KRISTOF, QUIQUE Attending Unavailable BLOOD, JUVENAL P Consulting Unavailable HOY, RICARDO M Primary Care Unavailable HOMER KARIMI Consulting Unavailable MD Ricardo Hooper Primary Care Provider [phone] Self, Referral Attending Provider Unavailable Hoy, Ricardo [...] Unavailable HOY, RICARDO M Primary Care Unavailable Madisyn Lara MD Unavailable [phone] DALIA VIGIL Attending Unavailable DALIA VIGIL Referring Unavailable Allergies Allergy Classification Reported Allergen(s) Allergy Type Date of Onset Reaction(s) Facility (11 sources) Ciprofloxacin; Translations: [ciprofloxacin] Drug Allergy 01-31-20 13 Intolerance, Respiratory function (observable entity), Joint pain (finding) [facility] (11 sources) Clindamycin; Translations: [clindamycin] Drug Allergy 01-24-20 15 Vomiting [facility] (13 sources) Doxycycline; Translations: [doxycycline] Drug Allergy 05-14-20 20 Vomiting, Nausea And Vomiting [facility] (8 sources) NITROFURANTOIN, MACROCRYSTALS / Nitrofurantoin, Monohydrate; Translations: [nitrofurantoin] Drug Allergy 10-23-19 22 GI Upset, Hives, Itching, Rash, Swelling [facility] (6 sources) Penicillins; Translations: [PENICILLINS] Drug Allergy 01-31-20 13 Shortness of Breath [facility] (8 sources) tioconazole; Translations: [tioconazole topical] Drug Allergy 01-23-20 15 Other: See Comments [facility] (7 sources) Skin Cleanser Combination No.17; Translations: [SKIN CLEANSER COMBINATION NO.17] Drug Allergy 09-02-19 18 Unknown [facility] (5 sources) Miconazole; Translations: [miconazole] Drug Allergy 01-31-20 13 vaginal burning [facility] (2 sources) Nitrofurantoin Drug Allergy 01-27-20 22 Rash [facility] (2 sources) Clindamycin/Lincom ycin Propensity to adverse reactions to drug 01-31-20 13 [facility] Work Phone: (5 sources) Penicillins Drug Allergy 01-24-20 15 Shortness of Breath [facility] (6 sources) levoFLOXacin; Translations: [levofloxacin] Drug Allergy 04-09-20 22 Myalgia, Joint swelling (finding) [facility] (1 source) Ciprofloxacin Drug Allergy 03-16-20 14 [facility] (1 source) Clindamycin Drug Allergy 03-16-20 14 [facility] (1 source) Doxycycline Drug Allergy 05-14-20 20 [facility] (3 sources) levoFLOXacin; Translations: [Levaquin] Drug Allergy 04-28-20 22 [facility] (1 source) Miconazole Drug Allergy [facility] (3 sources) Nitrofurantoin; Translations: [Macrobid] Drug Allergy 04-28-20 22 [facility] (1 source) Penicillins Drug allergy (disorder) 03-16-20 14 [facility] (2 sources) Penicillin; Translations: [penicillin] Drug Allergy [facility] (1 source) tioconazole; Translations: [tioconazole topical] Drug Allergy 01-23-20 15 [facility] (1 source) Clindamycin Drug Allergy 12-19-19 21 [facility] (1 source) Doxycycline Drug Allergy 12-19-19 21 [facility] (1 source) Penicillins Drug allergy (disorder) 12-19-19 21 [facility] Medications Current Medications Medication Drug Class(es) [...] 1 tablet by mouth at bedtime Biotin 69928 MCG TABS Take 1 tablet by mouth [...] days docusate sodium 50 mg / sennosides, fpc 8.6 mg oral tablet (2 sources) Start: 2 take 1 tablet by mouth twice daily sennosides-docusate sodium (SENOKOT-S) 8.6-50 MG tablet Take 1 tablet by mouth 2 times daily 60 tablet 0 02/17/2022 Active esomeprazole 40 mg delayed release oral capsule (11 sources) Proton Pump Inhibitor Start: 0 take 1 capsule by mouth once daily Esomeprazole Magnesium (Nexium) 40 mg Capsule,Delayed Release(Dr/Ec) Active 40 MG PO Daily May 17, 2018 1:00am take 40 mg by mouth once daily e someprazole Magnesium (NEXIUM) 40 MG PACK Take 40 mg by mouth daily. 0 Active Comment on above: Take 40 mg by mouth. ferrous sulfate 325 mg oral tablet (4 sources) Start: 2 End: 3 take 1 tablet by mouth once daily at breakfast ferrous sulfate 325 mg (65 mg iron) tablet Take 1 tablet by mouth daily with breakfast. 30 tablet 6 04/14/2022 04/09/2023 Active Comment on above: Take 1 tablet by landy th daily with breakfast. ibuprofen 800 mg oral tablet (11 sources) Nonsteroidal Anti-inflammatory Drug Start: 6 take 800 mg by mouth three times [...] hours as needed. iv contrast (will be provided with radiology test) (1 source) Start: 10-08-19 End: 10-09-19 iv contrast (will be provided with radiology [...] (11 sources) Angiotensin Converting Enzyme Inhibitor Start: 10-10-19 End: 02-18-20 take 20 mg by mouth once daily Lisinopril Active 20 MG PO Daily May 17, 2018 1:00am Comment on above: lisinopril 20 mg tab let Take 1 tablet every day by oral route. mometasone furoate 0.05 mg/actuat metered dose nasal spray (3 sources) Corticosteroid Start: 12-19-19 Mometasone (Nasonex) 50 mcg/actuation Antimony,Non-Aerosol Active 2 SPRAY INTRANASAL Daily December 18, [...] PO Bedtime May 17, 2018 1:00am sennosides, fpc 8.6 mg oral tablet (2 sources) Start: [...] End: 02-16-2022 acetaminophen (TYLENOL) tablet 1,000 mg [id number] 200 actuat albuterol 0.09 mg/actuat metered dose [...] cream (9 sources) Estrogen Start: 05-17-2018 estradiol (ESTRACE) 0.01 % (0.1 mg/gram) vaginal [...] oral capsule (1 source) Anti-epileptic Agent Start: End: gabapentin (NEURONTIN) capsule 300 mg 0.5 ml HYDROmorphone hydrochloride 1 mg/ml prefilled syringe (1 source) Opioid Agonist Start: End: HYDROmorphone HCl PF (DILAUDID) injection 0.5 mg hydrOXYzine hydrochloride 10 mg oral tablet (1 source) Antihistamine Start: take 10 mg by mouth every eight hours as needed 10 mg, Oral, EVERY 8 HOURS PRN, Starting on Wed02/16/22 at 1819, Until Discontinued, Itching, Post-op methenamine hippurate 1000 mg oral tablet (3 sources) Start: take 1 tablet by mouth twice daily at mealtime Methenamine Hippurate (HIPREX) 1 gram tablet Take 1 tablet by mouth twice daily with meals. 60 tablet 11 06/05/2021 Active Comment on above: Take 1 tablet by landy th twice daily with meals. One A Day Women's Complete (1 source) Start: One A Day Women's Complete Oral, Daily Start Date: 02/07/21 Status: Ordered pantoprazole 40 mg delayed release oral tablet (1 source) Proton Pump Inhibitor Start: take 40 mg by mouth once daily 40 mg, Oral, DAILY, First dose on Wed02/16/22 at 1845, Until Discontinued Do not crush or break. Substit uted for esomeprazole Post-op polyethylene glycol 3350 25178 mg powder for oral solution (1 source) Osmotic Laxative Start: 17 g, Oral, DAILY, First dose on Wed02/16/22 at 1845, Until Discontinued, Post-op 5 ml sodium chloride 9 mg/ml injection (4 sources) Start: take 1 dose intravenously twice daily 5-40 [...] by type of infusion therapy being given. F or non-viscous solutions use: Periphera l IV = 5 mL Midline or Central Line = 10 mL/lumen &nbsp ;For viscous solutions (i.e. blood components, parenteral nutrition, contrast media, or after obtaining blood sample) use: Periphera l IV = 10 mL Midline or Central [...] (1 source) Central alpha-2 Adrenergic Agonist Start: 02-17-20 End: 02-17-20 tiZANidine (ZANAFLEX) tablet 4 mg traZODone hydrochloride 100 mg oral tablet (11 sources) Serotonin Reuptake Inhibitor Start: 10-20-19 take 1 tablet by mouth once daily at bedtime traZODone (DESYREL) 100 mg tablet Take 100 mg by mouth daily at bedtime. 0 01/12/2019 Active Comment on above: Take 100 mg by mouth daily at bedtime. vancomycin (VANCOCIN) 1,500 mg in dextrose 5 % 250 mL IVPB (1 source) Start: 02-17-20 End: 02-18-20 1,500 mg, IntraVENous, EVERY 12 HOURS, 1 [...] 01-11-2023 Episodic Other aftercare (1 source) Other predatory animal exterminator (current) drug therapy; Translations: [OTH LONGTERM CURRENT DRUG THERAPY] Onset: 10-09-2022 Episodic Other [...] Results Test Name Value Interpretation Reference Range Facility CBC W Auto Differential pane l (Bld)on 03-31-2023 Basophils (Bld) [#/Vol] 0.20 10*3/uL High <0.11 [facility] Comment on above: Order Comment: Speci men Type: BLOOD SPECIMENOrdering Facility: [facility] Address: [address] [place] [address] Performed By: #### 5 7021-8 ####[facility] LABCLIA [id number] [place] [id number] LABCLIA [id number] [place] [address] [place] Basophils/100 WBC (Bld) 3.0 % Normal [facility] Comment on above: Order Comment: Speci men Type: BLOOD SPECIMENOrdering Facility: [facility] Address: [address] [place] [address] Performed By: #### 5 7021-8 ####[facility] LABCLIA [id number] [address] LABCLIA [id number] [place] [address] [place] Differential cell count method Nom (Bld) Manual Normal [facility] Comment on above: Order Comment: Speci men Type: BLOOD SPECIMENOrdering Facility: [facility] Address: [address] [place] [address] Performed By: #### 5 7021-8 ####[facility] LABCLIA [id number] [address] LABCLIA [id number] [place] [address] [place] Eosinophils (Bld) [#/Vol] 0.40 10*3/uL Normal <0.46 [facility] Comment on above: Order Comment: Speci men Type: BLOOD SPECIMENOrdering Facility: [facility] Address: [address] [place] [address] Performed By: #### 5 7021-8 ####[facility] LABCLIA [id number] [address] LABCLIA [id number] [place] [address] [place] Eosinophils/100 WBC (Bld) 6.0 % Normal [facility] Comment on above: Order Comment: Speci men Type: BLOOD SPECIMENOrdering Facility: [facility] Address: [address] [place] [address] Performed By: #### 5 7021-8 ####[facility] LABCLIA [id number] [place] [id number] LABCLIA [id number] [place] [address] [place] Erythrocyte distribution width (RBC) [Ratio] 14.0 % Normal 11.5-15.0 [facility] Comment on above: Order Comment: Speci men Type: BLOOD SPECIMENOrdering Facility: [facility] Address: [address] [place] [address] Performed By: #### 5 7021-8 ####[facility] LABCLIA [id number] [address] LABCLIA [id number] [place] [address] [place] Hematocrit (Bld) [Volume fraction] 42.2 % Normal 36.0-46.0 [facility] Comment on above: Order Comment: Speci men Type: BLOOD SPECIMENOrdering Facility: [facility] Address: [address] [place] [address] Performed By: #### 5 7021-8 ####[facility] LABCLIA [id number] [place] [id number] LABCLIA [id number] [place] [address] [place] Hemoglobin (Bld) [Mass/Vol] 13.3 g/dL Normal 11.5-15.5 [facility] Comment on above: Order Comment: Speci men Type: BLOOD SPECIMENOrdering Facility: [facility] Address: [address] [place] [address] Performed By: #### 5 7021-8 ####[facility] LABCLIA [id number] [address] LABCLIA [id number] [place] [address] [place] Lymphocytes (Bld) [#/Vol] 3.56 10*3/uL Normal 1.00-4.00 [facility] Comment on above: Order Comment: Speci men Type: BLOOD SPECIMENOrdering Facility: [facility] Address: [address] [place] [address] Performed By: #### 5 7021-8 ####[facility] LABCLIA [id number] [address] LABCLIA [id number] [place] [address] [place] Lymphocytes/100 WBC (Bld) 54.0 % Normal [facility] Comment on above: Order Comment: Speci men Type: BLOOD SPECIMENOrdering Facility: [facility] Address: [address] [place] [address] Performed By: #### 5 7021-8 ####[facility] LABCLIA [id number] [address] LABCLIA [id number] [place] [address] [place] MCH (RBC) [Entitic mass] 27.4 pg Normal 26.0-34.0 [facility] Comment on above: Order Comment: Speci men Type: BLOOD SPECIMENOrdering Facility: [facility] Address: [address] [place] [address] Performed By: #### 5 7021-8 ####[facility] LABCLIA [id number] [address] LABCLIA [id number] [place] [address] [place] MCHC (RBC) [Mass/Vol] 31.5 g/dL Normal 30.5-36.0 [facility] Comment on above: Order Comment: Speci men Type: BLOOD SPECIMENOrdering Facility: [facility] Address: [address] [place] [address] Performed By: #### 5 7021-8 ####[facility] LABCLIA [id number] [address] LABCLIA [id number] [place] [address] [place] MCV (RBC) [Entitic vol] 86.8 fL Normal 80.0-100.0 [facility] Comment on above: Order Comment: Speci men Type: BLOOD SPECIMENOrdering Facility: [facility] Address: [address] [place] [address] Performed By: #### 5 7021-8 ####[facility] LABCLIA [id number] [address] LABCLIA [id number] [place] [address] [place] Monocytes (Bld) [#/Vol] 0.66 10*3/uL Normal <0.87 [facility] Comment on above: Order Comment: Speci men Type: BLOOD SPECIMENOrdering Facility: [facility] Address: [address] [place] [address] Performed By: #### 5 7021-8 ####[facility] LABCLIA [id number] [address] LABCLIA [id number] [place] [address] [place] Monocytes/100 WBC (Bld) 10.0 % Normal [facility] Comment on above: Order Comment: Speci men Type: BLOOD SPECIMENOrdering Facility: [facility] Address: [address] [place] [address] Performed By: #### 5 7021-8 ####[facility] LABCLIA [id number] [address] LABCLIA [id number] [place] [address] [place] Neutrophils (Bld) [#/Vol] 1.78 10*3/uL Normal 1.45-7.50 [facility] Comment on above: Order Comment: Speci men Type: BLOOD SPECIMENOrdering Facility: [facility] Address: [address] [place] [address] Performed By: #### 5 7021-8 ####[facility] LABCLIA [id number] [address] LABCLIA [id number] [place] [address] [place] Neutrophils/100 WBC (Bld) 27.0 % Normal [facility] Comment on above: Order Comment: Speci men Type: BLOOD SPECIMENOrdering Facility: [facility] Address: [address] [place] [address] Performed By: #### 5 7021-8 ####[facility] LABCLIA [id number] [address] LABCLIA [id number] [place] [address] [place] Nucleated RBC (Bld) [#/Vol] 10*3/uL Normal <0.01 [facility] Comment on above: Order Comment: Speci men Type: BLOOD SPECIMENOrdering Facility: [facility] Address: [address] [place] [address] Performed By: #### 5 7021-8 ####[facility] LABCLIA [id number] [address] LABCLIA [id number] [place] [address] [place] Nucleated RBC/100 WBC (Bld) [Ratio] 0.0 /100 WBC Normal [facility] Comment on above: Order Comment: Speci men Type: BLOOD SPECIMENOrdering Facility: [facility] Address: [address] [place] [address] Performed By: #### 5 7021-8 ####[facility] LABCLIA [id number] [address] LABCLIA [id number] [place] [address] [place] Ovalocytes LM Ql (Bld) Few Normal [facility] Comment on above: Order Comment: Speci men Type: BLOOD SPECIMENOrdering Facility: [facility] Address: [address] [place] [address] Performed By: #### 5 7021-8 ####[facility] LABCLIA [id number] [address] LABCLIA [id number] [place] [address] [place] Platelet mean volume (Bld) [Entitic vol] 10.5 fL Normal 9.0-12.7 [facility] Comment on above: Order Comment: Speci men Type: BLOOD SPECIMENOrdering Facility: [facility] Address: [address] [place] [address] Performed By: #### 5 7021-8 ####[facility] LABCLIA [id number] [address] LABCLIA [id number] [place] [address] [place] Platelets (Bld) [#/Vol] 265 10*3/uL Normal 150-400 [facility] Comment on above: Order Comment: Speci men Type: BLOOD SPECIMENOrdering Facility: [facility] Address: [address] [place] [address] Performed By: #### 5 7021-8 ####[facility] LABCLIA [id number] [address] LABCLIA [id number] [place] [address] [place] Platelets Estimate (Bld) [#/Vol] Adequate Normal [facility] Comment on above: Order Comment: Speci men Type: BLOOD SPECIMENOrdering Facility: [facility] Address: [address] [place] [address] Performed By: #### 5 7021-8 ####[facility] LABCLIA [id number] [place] [id number] LABCLIA [id number] [place] [address] [place] RBC (Bld) [#/Vol] 4.86 10*6/uL Normal 3.90-5.20 [facility] Comment on above: Order Comment: Speci men Type: BLOOD SPECIMENOrdering Facility: [facility] Address: [address] [place] [address] Performed By: #### 5 7021-8 ####[facility] LABCLIA [id number] [address] LABCLIA [id number] [place] [address] [place] RED CELL MORPH Reviewed: see result s of individual morphologies Normal [facility] Comment on above: Order Comment: Speci men Type: BLOOD SPECIMENOrdering Facility: [facility] Address: [address] [place] [address] Performed By: #### 5 7021-8 ####[facility] LABCLIA [id number] [address] LABCLIA [id number] [place] [address] [place] WBC (Bld) [#/Vol] 6.59 10*3/uL Normal 3.70-11.00 [facility] Comment on above: Order Comment: Speci men Type: BLOOD SPECIMENOrdering Facility: [facility] Address: [address] [place] [address] Performed By: #### 5 7021-8 ####[facility] LABCLIA [id number] [place], [place] [address] LABCLIA [id number] [address] [address] [place] [address] CHEST W IVCONon 3 CT CHEST W IVCON * * *Final Report* * * DATE OF EXAM: Mar 31 2023 9:25AM [facility] 0539 - CT CHEST W IVCON / [...] any questions regarding this interpretation, please call [phone]. If you are unable to reach us at the number above, please feel free to contact [facility] at [phone]. [id number] N Normal [facility] Comprehensive metabolic 2000 panelon 03-31-2023 Albumin [Mass/Vol] 4.5 g/dL Normal 3.9-4.9 [facility] Comment on above: Order Comment: Speci men Type: BLOOD SPECIMENOrdering Facility: [facility] Address: [address] [place] [address] Performed By: #### 2 4323-8 ####[facility] LABCLIA [id number] [place] [address] ALP [Catalytic activity/Vol] 85 U/L Normal 34-123 [facility] Comment on above: Order Comment: Speci men Type: BLOOD SPECIMENOrdering Facility: [facility] Address: [address] [place] [address] Performed By: #### 2 4323-8 ####[facility] LABCLIA [id number] [place] [address] ALT [Catalytic activity/Vol] 20 U/L Normal 7-38 [facility] Comment on above: Order Comment: Speci men Type: BLOOD SPECIMENOrdering Facility: [facility] Address: [address] [place] [address] Performed By: #### 2 4323-8 ####[facility] LABCLIA [id number] [place] [address] Anion gap [Moles/Vol] 9 mmol/L Normal 9-18 [facility] Comment on above: Order Comment: Speci men Type: BLOOD SPECIMENOrdering Facility: [facility] Address: [address] [place] [address] Performed By: #### 2 4323-8 ####[facility] LABCLIA [id number] [place] [address] AST [Catalytic activity/Vol] 22 U/L Normal 13-35 [facility] Comment on above: Order Comment: Speci men Type: BLOOD SPECIMENOrdering Facility: [facility] Address: [address] [place] [address] Performed By: #### 2 4323-8 ####[facility] LABCLIA [id number] [place] [address] Bilirubin [Mass/Vol] 0.3 mg/dL Normal 0.2-1.3 [facility] Comment on above: Order Comment: Speci men Type: BLOOD SPECIMENOrdering Facility: [facility] Address: [address] [place] [address] Performed By: #### 2 4323-8 ####[facility] [facility] [id number] [place] [address] Calcium [Mass/Vol] 9.6 mg/dL Normal 8.5-10.2 [facility] Comment on above: Order Comment: Speci men Type: BLOOD SPECIMENOrdering Facility: [facility] Address: [address] [place] [address] Performed By: #### 2 4323-8 ####[facility] LABCLIA [id number] [place] [address] Chloride [Moles/Vol] 105 mmol/L Normal 97-105 [facility] Comment on above: Order Comment: Speci men Type: BLOOD SPECIMENOrdering Facility: [facility] Address: [address] [place] [address] Performed By: #### 2 4323-8 ####[facility] LABCLIA [id number] [place] [address] CO2 [Moles/Vol] 28 mmol/L Normal 22-30 [facility] Comment on above: Order Comment: Speci men Type: BLOOD SPECIMENOrdering Facility: [facility] Address: [address] [place] [address] Performed By: #### 2 4323-8 ####[facility] LABCLIA [id number] [place] [address] Creatinine [Mass/Vol] 0.98 mg/dL High 0.58-0.96 [facility] Comment on above: Order Comment: Speci men Type: BLOOD SPECIMENOrdering Facility: [facility] Address: [address] [place] [address] Performed By: #### 2 4323-8 ####[facility] LABCLIA [id number] [place] [address] Creatinine and Glomerular filtration rate.predicted panel (S/P/Bld) 64 mL/min/1.73m??? Normal >=60 [facility] Comment on above: Order Comment: Speci men Type: BLOOD SPECIMENOrdering Facility: [facility] Address: [address] [place] [address] Result Comment: Abigail mated Glomerular Filtration Rate [...] actual GFR. Performed By: #### 2 4323-8 ####[facility] LABCLIA [id number] [place] [address] Glucose [Mass/Vol] 102 mg/dL High 74-99 [facility] Comment on above: Order Comment: Speci men Type: BLOOD SPECIMENOrdering Facility: [facility] Address: [address] [place] [address] Result Comment: The [place] Diabetes Association (ADA) provides guidance for cutoff [...] Standards of Medical Care in Diabetes 2016, [place] [employer]. Diabetes Care. 2016.39(Suppl 1). Performed By: #### 2 4323-8 ####[facility] LABCLIA [id number] [place] [address] Potassium [Moles/Vol] 4.2 mmol/L Normal 3.7-5.1 [facility] Comment on above: Order Comment: Speci men Type: BLOOD SPECIMENOrdering Facility: [facility] Address: [address] [place] [address] Performed By: #### 2 4323-8 ####[facility] LABCLIA [id number] [place] [address] Protein [Mass/Vol] 7.0 g/dL Normal 6.3-8.0 [facility] Comment on above: Order Comment: Speci men Type: BLOOD SPECIMENOrdering Facility: [facility] Address: [address] [place] [address] Performed By: #### 2 4323-8 ####[facility] LABCLIA [id number] [place] [address] Sodium [Moles/Vol] 142 mmol/L Normal 136-144 [facility] Comment on above: Order Comment: Speci men Type: BLOOD SPECIMENOrdering Facility: [facility] Address: [address] [place] [address] Performed By: #### 2 4323-8 ####[facility] LABCLIA [id number] [place] [address] Urea nitrogen [Mass/Vol] 9 mg/dL Normal 7-21 [facility] Comment on above: Order Comment: Speci men Type: BLOOD SPECIMENOrdering Facility: [facility] Address: [address] [place] [address] Performed By: #### 2 4323-8 ####[facility] LABCLIA [id number] [place] [address] Ferritin SerPl-mCncon 2022 Ferritin [Mass/Vol] 11.8 ng/mL Low 14.7-205.1 [facility] Comment on above: Order Comment: Speci men Type: BLOOD SPECIMENOrdering Facility: [facility] Address: [address] [place] [address] Performed By: #### 5 0190-8, 2284-8, 9, 4 ####[facility] LABCLIA [id number] [place] [address] [place] F[facility]Pl[facility] Folate [Mass/Vol] Normal [facility] Comment on above: Order Comment: Speci men Type: BLOOD SPECIMENOrdering Facility: [facility] Address: [address] [place] [address] Result Comment: Unab le to assay due to interference from hemolysis. Suggest reorder as clinically indicated. Performed By: #### 5 0190-8, 2284-8, 9, 2275-08 ####[facility] LABCLIA [id number] [place] [address] [place] Iron and Iron binding capaci ty panelon 03-31-2023 Iron [Mass/Vol] 63 ug/dL Normal 41-186 [facility] Comment on above: Order Comment: Speci men Type: BLOOD SPECIMENOrdering Facility: [facility] Address: [address] [place] [address] Performed By: #### 5 0190-8, 2284-8, 9, 2275-08 ####[facility] LABCLIA [id number] [place] [address] [place] Iron binding capacity [Mass/Vol] Normal [facility] Comment on above: Order Comment: Speci men Type: BLOOD SPECIMENOrdering Facility: [facility] Address: [address] [place] [address] Result Comment: Unab le to calculate due to hemolysis. Performed By: #### 5 0190-8, 2284-8, 2132-01, 4 ####[facility] LABCLIA [id number] [place] [address] [place] Iron/TIBC [Molar ratio] Normal [facility] Comment on above: Order Comment: Speci men Type: BLOOD SPECIMENOrdering Facility: [facility] Address: [address] [place] [address] Result Comment: Unab le to calculate due to hemolysis. Performed By: #### 5 0190-8, 2283-8, 2132-01, 2275-08 ####[facility] LABCLIA [id number] [place] [address] [place] Vit B12 [facility] 11-01-2 023 Cobalamin (Vitamin B12) [Mass/Vol] 327 pg/mL Normal 232-1245 [facility] Comment on above: Order Comment: Speci men Type: BLOOD SPECIMENOrdering Facility: [facility] Address: [address] [place] [address] Performed By: #### 5 0190-8, 4-8, 2132-01, 2275-08 ####[facility] LABCLIA [id number] [place] [address] [place] MM screening mammo BI w/CADo n 02-22-2023 MM screening mammo BI w/[place] [address] Mammography Report Signed Patient: Jessica Ferrera MR#: [id number] 7 : 1955 Acct:[id number] Age/Sex: 67 / F ADM Date: 02/22/23 Loc: [place] Room: Type: [facility] Attending Dr: Referral Self Copies to: Ricardo [...] Juvenal Hanley M.D.02/22/2023 10:30 AM Dictation Location: [facility] Transcribed By: LEE 02/22/23 1030 Dictated By: Juvenal Hanley DO 02/22/23 1029 Signed By: 02/22/23 1030 [facility] Basic Metabolic Profon 01-12 Anion gap [Moles/Vol] 10 mmol/L Normal 9-17 [facility] Comment on above: Performed By: #### C DP, BMP ####[facility] [address] [place] [address] lab Director: Jelani Liu MD BUN/CRE Ratio 14 Normal -20 [facility] Comment on above: Performed By: #### C DP, BMP ####[facility] [address] [place] [address] lab Director: Jelani Liu MD Calcium [Mass/Vol] 8.5 mg/dL Low 8.6-10.4 [facility] Comment on above: Performed By: #### C DP, BMP ####[facility] [address] [place] [address] Lab Director: Jelani Liu MD Chloride [Moles/Vol] 108 mmol/L High 98-107 [facility] Comment on above: Performed By: #### C DP, BMP ####[facility] Asb[address] [place] [address] Lab Director: Jelani Liu MD CO2 [Moles/Vol] 23 mmol/L Normal 20-31 [facility] Comment on above: Performed By: #### C DP, BMP ####[facility] [address] [place] [address] Lab Director: Jelani Liu MD Creatinine [Mass/Vol] 0.8 mg/dL Normal 0.5-0.9 [facility] Comment on above: Performed By: #### C DP, BMP ####[facility] [address] [place] [address] Lab Director: Jelani Liu MD GFR/1.73 sq M.predicted among non-blacks MDRD (S/P/Bld) [Vol rate/Area] mL/min/{1.73_m2} Normal >60 [facility] Comment on above: Result [...] secretion. Performed By: #### C DP, BMP ####[facility] [address] [place] [address].[place] [address] Lab Director: Jelani Liu MD Glucose [Mass/Vol] 156 mg/dL High 70-99 [facility] Comment on above: Performed By: #### C DP, BMP ####[facility] Eqo[address] [facility] [place] [address] Lab Director: Jelani Liu MD Potassium [Moles/Vol] 4.5 mmol/L Normal 3.7-5.3 [facility] Comment on above: Performed By: #### C DP, BMP ####[facility] [address] [place] [address].[place] [phone] Director: Jelani Liu MD Sodium [Moles/Vol] 141 mmol/L Normal 135-144 [facility] Comment on above: Performed By: #### C DP, BMP ####[facility] [address] [place] [address].[place], [place] [phone] Director: Jelani Liu MD Urea nitrogen [Mass/Vol] 11 mg/dL Normal 8-23 [facility] Comment on above: Performed By: #### C DP, BMP ####[facility] [address] [place] [address].[place], [place] [phone] Director: Jelani Liu MD CBC with Diffon 01-12-2023 Abs. Basophil <0.03 Normal 0.00-0.20 [facility] Comment on above: Performed By: #### C DP, BMP ####[facility] I[address] [place] [address].[place] [address]([facility])[phone] Director: Jelani Liu MD Abs. Eosinophil <0.03 Normal 0.00-0.44 [facility] Comment on above: Performed By: #### C DP, BMP ####[facility] [address] [place] [address].[place] [phone] Director: Jelani Liu MD Abs.Imm.Granulocyte 0.05 k/uL Normal 0.00-0.30 [facility] Comment on above: Performed By: #### C DP, BMP ####[facility] Anq[address] [place] [phone] Director: Jelani Liu MD Abs.Neutrophil (Seg) 10.35 k/uL High 1.50-8.10 [facility] Comment on above: Performed By: #### C DP, BMP ####[facility] [address] [place] [address].[place] [phone] Director: Jelani Liu MD Basophils/100 WBC (Bld) 0 % Normal 0-2 [facility] Comment on above: Performed By: #### C DP, BMP ####[facility] [address] [place] [address] Lab Director: Jelani Liu MD Eosinophils/100 WBC (Bld) 0 % Low 1-4 [facility] Comment on above: Performed By: #### C DP, BMP ####[facility] [address] [place] [address].[place] [phone] Director: Jelani Liu MD Erythrocyte distribution width (RBC) [Ratio] 12.9 % Normal 11.8-14.4 [facility] Comment on above: Performed By: #### C DP, BMP ####[facility] [address] [place] [address].[place] [phone] Director: Jelani Liu MD Hematocrit (Bld) [Volume fraction] 37.4 % Normal 36.3-47.1 [facility] Comment on above: Performed By: #### C DP, BMP ####[facility] J[address] [place] [address].[place] [phone] Director: Jelani Liu MD Hemoglobin (Bld) [Mass/Vol] 11.8 g/dL Low 11.9-15.1 [facility] Comment on above: Performed By: #### C DP, BMP ####[facility] Qjr[address] [place] [address] Lab Director: Jelani Liu MD Immature granulocytes/100 WBC (Bld) 0 % Normal 0 [facility] Comment on above: Performed By: #### C DP, BMP ####[facility] I[address] [place] [address].[place], [place] [phone] Director: Jelani Liu MD Lymphocytes (Bld) [#/Vol] 1.70 10*3/uL Normal 1.10-3.70 [facility] Comment on above: Performed By: #### C DP, BMP ####[facility] Q[address] [place] [address].[place], [place] [phone] Director: Jelani Liu MD Lymphocytes/100 WBC (Bld) 13 % Low 24-43 [facility] Comment on above: Performed By: #### C DP, BMP ####[facility] [address] [place], [place] [phone] Director: Jelani Liu MD MCH (RBC) [Entitic mass] 29.7 pg Normal 25.2-33.5 [facility] Comment on above: Performed By: #### C DP, BMP ####[facility] [address] [place], [place] [phone] Director: Jelani Liu MD MCHC (RBC) [Mass/Vol] 31.6 g/dL Normal 28.4-34.8 [facility] Comment on above: Performed By: #### C DP, BMP ####[facility] [address] [place], [place] [phone] Director: Jelani Liu MD MCV (RBC) [Entitic vol] 94.2 fL Normal 82.6-102.9 [facility] Comment on above: Performed By: #### C DP, BMP ####[facility] Ngs[address] [place] [address] Lab Director: Jelani Liu MD Monocytes (Bld) [#/Vol] 0.61 10*3/uL Normal 0.10-1.20 [facility] Comment on above: Performed By: #### C DP, BMP ####[facility] [address] [place] [address].[place] [address] Lab Director: Jelani Liu MD Monocytes/100 WBC (Bld) 5 % Normal 3-12 [facility] Comment on above: Performed By: #### C DP, BMP ####[facility] [address] [place] [address] Lab Director: Jelani Liu MD Neutrophil (Seg) 82 % High 36-65 [facility] Comment on above: Performed By: #### C DP, BMP ####[facility] [address] [place] [address].[place] [address] Lab Director: Jelani Liu MD NRBC Automated 0.0 per 100 WBC Normal 0.0 [facility] Comment on above: Performed By: #### C DP, BMP ####[facility] X[address] [place] [address].[place] [address] Lab Director: Jelani Liu MD Platelet mean volume (Bld) [Entitic vol] 10.1 fL Normal 8.1-13.5 [facility] Comment on above: Performed By: #### C DP, BMP ####[facility] Thy[address] [place] [address].[place] [address] Lab Director: Jelani Liu MD Platelets (Bld) [#/Vol] 221 10*3/uL Normal 138-453 [facility] Comment on above: Performed By: #### C DP, BMP ####[facility] [address] [place] [phone] Director: Jelani Liu MD RBC (Bld) [#/Vol] 3.97 10*6/uL Normal 3.95-5.11 [facility] Comment on above: Performed By: #### C DP, BMP ####[facility] [address] [place] [phone] Director: Jelani Liu MD WBC (Bld) [#/Vol] 12.7 10*3/uL High 3.5-11.3 [facility] Comment on above: Performed By: #### C DP, BMP ####[facility] K[address] [facility], [place] [phone] Director: Jelani Liu MD FLUORO FOR SURGICAL PROCEDUR ESon 01-11-2023 FLUORO FOR SURGICAL PROCEDURES Radiology exam is complete. No Radiologist dictation. Please follow up with ordering provider. Final result Normal [facility] Cult,Urineon 12-24-2022 Cult,Urine Specimen Description .CLEAN CATCH URINE Culture ESCHERICHIA COLI >100,000 CFU/ML This organism is an Extended Spectrum Beta Lactamase (ESBL) Scientific Specialist and resistance to therapy with Penicillins, Cephalosporins [...] SUSCEPTIBLE Levofloxacin >=8 RESISTANT Nitrofurantoin <=16 SUSCEPTIBLE Piperacillin/Tazobact am <=4 RESISTANT Tobramycin <=1 SUSCEPTIBLE Trimethoprim/Sulfa >=320 RESISTANT Amikacin <=2 SUSCEPTIBLE Meropenem <=0.25 SUSCEPTIBLE Susceptible [facility] Comment on above: Performed By: #### U RC ####[facility] J[address] [place] [address] Lab Director: Jelani Liu [address] [address] Lab Director: Terrance Luevano MD MRSA, DNA, Nasalon 3 MRSA, DNA, Nasal Negative Normal NEG [facility] Comment on above: Result Comment: NEGA TIVE: MRSA DNA not detected by nucleic acid amplification. Results should be used as an adjunct to nosocomial control efforts to identify patients needing enhanced precautions. The test is not intended to identify patients with staphylococcal infections. Results should not be used to guide or monitor treatment for MRSA infections. Performed By: #### M RSA ####[facility] [address] [place] [address] Lab Director: Jelani Liu [address] [address] Lab Director: Terrance Luevano MD APTTon 12-21-2022 aPTT Coag (Bld) [Time] 27.5 s Normal 23.9-33.8 [facility] Comment on above: Result Comment: IV Heparin Therapy Range: 62.0-94.0 Performed By: #### B MP, PT, PTT, CDP #### [facility] Lab [address] [place] [address] Fertilizer Loader: Jelani Liu MD Basic Metabolic Profon 12-21 Anion gap [Moles/Vol] 11 mmol/L Normal 9-17 [facility] Comment on above: Performed By: #### B MP, PT, PTT, CDP #### [facility] Lab [address] [place] [address] Fertilizer Loader: Jelani Liu MD BUN/CRE Ratio 12 Normal 9-20 [facility] Comment on above: Performed By: #### B MP, PT, PTT, CDP #### [facility] Lab [address] [place] [address] Fertilizer Loader: Jelani Liu MD Calcium [Mass/Vol] 9.1 mg/dL Normal 8.6-10.4 [facility] Comment on above: Performed By: #### B MP, PT, PTT, CDP #### [facility] [address] [place] [address] Fertilizer Loader: Jelani Liu MD Chloride [Moles/Vol] 104 mmol/L Normal 98-107 [facility] Comment on above: Performed By: #### B MP, PT, PTT, CDP #### [facility] [place] [address] Fertilizer Loader: Jelani Liu MD CO2 [Moles/Vol] 24 mmol/L Normal 20-31 [facility] Comment on above: Performed By: #### B MP, PT, PTT, CDP #### [facility] [address] [facility] [place] [address] Fertilizer Loader: Jelani Liu MD Creatinine [Mass/Vol] 0.9 mg/dL Normal 0.5-0.9 [facility] Comment on above: Performed By: #### B MP, PT, PTT, CDP #### [facility] Lab [address] [place] [address] Fertilizer Loader: Jelani Liu MD GFR/1.73 sq M.predicted among non-blacks MDRD (S/P/Bld) [Vol rate/Area] mL/min/{1.73_m2} Normal >60 [facility] Comment on above: Result [...] #### B MP, PT, PTT, CDP #### [facility] [address] [place] [address] Fertilizer Loader: Jelani Liu MD Glucose [Mass/Vol] 93 mg/dL Normal 70-99 [facility] Comment on above: Performed By: #### B MP, PT, PTT, CDP #### [facility] [place] [address] Fertilizer Loader: Jelani Liu MD Potassium [Moles/Vol] 4.1 mmol/L Normal 3.7-5.3 [facility] Comment on above: Performed By: #### B MP, PT, PTT, CDP #### [facility] [place] [address] Fertilizer Loader: Jelani Liu MD Sodium [Moles/Vol] 139 mmol/L Normal 135-144 [facility] Comment on above: Performed By: #### B MP, PT, PTT, CDP #### [facility] [address] [place] [address]. [place] [address] Fertilizer Loader: Jelani Liu MD Urea nitrogen [Mass/Vol] 11 mg/dL Normal 8-23 [facility] Comment on above: Performed By: #### B MP, PT, PTT, CDP #### [facility] [address] [place] [address]. [place] [address] Fertilizer Loader: Jelani Liu MD CBC with Diffon 12-21-2022 Abs. Basophil 0.09 k/uL Normal 0.00-0.20 [facility] Comment on above: Performed By: #### B MP, PT, PTT, CDP #### [facility] [address] [place] [address] Fertilizer Loader: Jelani Liu MD Abs. Eosinophil <0.03 Normal 0.00-0.44 [facility] Comment on above: Performed By: #### B MP, PT, PTT, CDP #### [facility] [address] [place] [address] Fertilizer Loader: Jelani Liu MD Abs.Imm.Granulocyte 0.02 k/uL Normal 0.00-0.30 [facility] Comment on above: Performed By: #### B MP, PT, PTT, CDP #### [facility] [place] [address] Fertilizer Loader: Jelani Liu MD Abs.Neutrophil (Seg) 3.03 k/uL Normal 1.50-8.10 [facility] Comment on above: Performed By: #### B MP, PT, PTT, CDP #### [facility] [address] [place] [address]. [place] [address] Fertilizer Loader: Jelani Liu MD Basophils/100 WBC (Bld) 1 % Normal 0-2 [facility] Comment on above: Performed By: #### B MP, PT, PTT, CDP #### [facility] [facility] [place] [address] Fertilizer Loader: Jelani Liu MD Eosinophils/100 WBC (Bld) 0 % Low 1-4 [facility] Comment on above: Performed By: #### B MP, PT, PTT, CDP #### [facility] [place] [address] Fertilizer Loader: Jelani Liu MD Erythrocyte distribution width (RBC) [Ratio] 13.1 % Normal 11.8-14.4 [facility] Comment on above: Performed By: #### B MP, PT, PTT, CDP #### [facility] [address] [place] [address] Fertilizer Loader: Jelain Liu MD Hematocrit (Bld) [Volume fraction] 45.2 % Normal 36.3-47.1 [facility] Comment on above: Performed By: #### B MP, PT, PTT, CDP #### [facility] [address] [place] [address] Fertilizer Loader: Jelani Liu MD Hemoglobin (Bld) [Mass/Vol] 14.5 g/dL Normal 11.9-15.1 [facility] Comment on above: Performed By: #### B MP, PT, PTT, CDP #### [facility] [address] [place], [place] [address]ab[address] [place] [address] Fertilizer Loader: Jelani Liu MD Immature granulocytes/100 WBC (Bld) 0 % Normal 0 [facility] Comment on above: Performed By: #### B MP, PT, PTT, CDP #### [facility] [address] [place], [place] [address] [place] [address] Fertilizer Loader: Jelani Liu MD Lymphocytes (Bld) [#/Vol] 3.93 10*3/uL High 1.10-3.70 [facility] Comment on above: Performed By: #### B MP, PT, PTT, CDP #### [facility] [place] [address] Fertilizer Loader: Jelani Liu MD Lymphocytes/100 WBC (Bld) 50 % High 24-43 [facility] Comment on above: Performed By: #### B MP, PT, PTT, CDP #### [facility] [place] [address] Fertilizer Loader: Jelani Liu MD MCH (RBC) [Entitic mass] 30.1 pg Normal 25.2-33.5 [facility] Comment on above: Performed By: #### B MP, PT, PTT, CDP #### [facility] [place] [address] Fertilizer Loader: Jelani Liu MD MCHC (RBC) [Mass/Vol] 32.1 g/dL Normal 28.4-34.8 [facility] Comment on above: Performed By: #### B MP, PT, PTT, CDP #### [facility] [address] [place] [address]. [place] [address] Fertilizer Loader: Jelani Liu MD MCV (RBC) [Entitic vol] 93.8 fL Normal 82.6-102.9 [facility] Comment on above: Performed By: #### B MP, PT, PTT, CDP #### [facility] [address] [place] [address]. [place] [address] Fertilizer Loader: Jelani Liu MD Monocytes (Bld) [#/Vol] 0.75 10*3/uL Normal 0.10-1.20 [facility] Comment on above: Performed By: #### B MP, PT, PTT, CDP #### [facility] [address] [place] [address]. [place] [address] Fertilizer Loader: Jelani Liu MD Monocytes/100 WBC (Bld) 10 % Normal 3-12 [facility] Comment on above: Performed By: #### B MP, PT, PTT, CDP #### [facility] [address] [place] [address]. [place] [address] Fertilizer Loader: Jelani Liu MD Neutrophil (Seg) 39 % Normal 36-65 [facility] Comment on above: Performed By: #### B MP, PT, PTT, CDP #### [facility] [address] [place] [address] Fertilizer Loader: Jelani Liu MD NRBC Automated 0.0 per 100 WBC Normal 0.0 [facility] Comment on above: Performed By: #### B MP, PT, PTT, CDP #### [facility] [address] [place] [address] Fertilizer Loader: Jelani Liu MD Platelet mean volume (Bld) [Entitic vol] 10.0 fL Normal 8.1-13.5 [facility] Comment on above: Performed By: #### B MP, PT, PTT, CDP #### [facility] [facility] [place] [address] Fertilizer Loader: Jelani Liu MD Platelets (Bld) [#/Vol] 257 10*3/uL Normal 138-453 [facility] Comment on above: Performed By: #### B MP, PT, PTT, CDP #### [facility] [place] [address] Fertilizer Loader: Jelani Liu MD RBC (Bld) [#/Vol] 4.82 10*6/uL Normal 3.95-5.11 [facility] Comment on above: Performed By: #### B MP, PT, PTT, CDP #### [facility] [place] [address] Fertilizer Loader: Jelani Liu MD WBC (Bld) [#/Vol] 7.8 10*3/uL Normal 3.5-11.3 [facility] Comment on above: Performed By: #### B MP, PT, PTT, CDP #### [facility] [place] [address] Fertilizer Loader: Jelani Liu MD MRSA, DNA, Nasalon 3 Specimen Description .NASAL SWAB Normal [facility] Comment on above: Performed By: #### M RSANO ####[facility] E[address] [place] [address] Lab Director: JOAQUÍN [facility] [address] [place] [address] Lab Director: Terrance Luevano MD PTon 12-21-2022 INR Coag (PPP) [Relative time] 0.9 {INR} Normal [facility] Comment on above: Result Comment: Therapeutic Range: Moderate Anticoagulant Intensity: INR = 2.0-3.0 High Anticoagulant Intensity: INR = 2.5-3.5 Performed By: #### B MP, PT, PTT, CDP #### [facility] [address] [place] [address] Fertilizer Loader: Jelani Liu MD PT Coag (PPP) [Time] 12.1 s Normal 11.5-14.2 [facility] Comment on above: Performed By: #### B MP, PT, PTT, CDP #### [facility] [address] [place] [address] Fertilizer Loader: Jelani Liu MD Urinalysis, Routineon 2022 Bilirubin, SemiQt,Ur Negative Normal NEG [facility] Comment on above: Performed By: #### U A ####[facility] Oim[address] [place] [address] Lab Director: Jelani Liu MD Blood, Urine Negative Normal NEG [facility] Comment on above: Performed By: #### U A ####[facility] Org[address] [place] [address] Lab Director: Jelani Liu MD Clarity (U) Clear Normal CLEAR [facility] Comment on above: Performed By: #### U A ####[facility] [address] [place] [address] Lab Director: Jelani Liu MD Color (U) Yellow Normal YEL [facility] Comment on above: Performed By: #### U A ####[facility] [address] [place] [address] Lab Director: Jelani Liu MD Comment Microscopic exam not performed based on chemical results unless requested in Normal [facility] Comment on above: Result Comment: orig inal order. Performed By: #### U A ####[facility] [address] [place] [address] Lab Director: Jelani Liu MD Glucose Ql (U) Negative Normal NEG [facility] Comment on above: Performed By: #### U A ####[facility] [address] [place] [address] Lab Director: Jelani Liu MD Ketones Ql (U) Negative Normal NEG [facility] Comment on above: Performed By: #### U A ####[facility] [address] [place] [address] Lab Director: Jelani Liu MD Leukocyte esterase Test strip Ql (U) Negative Normal NEG [facility] Comment on above: Performed By: #### U A ####[facility] [address] [place] [address] Lab Director: Jelani Liu MD Nitrite,Ur Negative Normal NEG [facility] Comment on above: Performed By: #### U A ####[facility] [address] [place] [address] Lab Director: Jelani Liu MD PH,Ur 5.5 Normal 5.0-8.0 [facility] Comment on above: Performed By: #### U A ####[facility] V[address] [place] [address] lab Director: Jelani Liu MD Protein Ql (U) Negative Normal NEG [facility] Comment on above: Performed By: #### U A ####[facility] Fvw[address] [place] [address] lab Director: Jelani Liu MD Spec. Kirklin,Ur 1.015 Normal 1.005-1.030 [facility] Comment on above: Performed By: #### U A ####[facility] Njz[address] [place] [address] lab Director: Jelani Liu MD Urobilinogen,Ur Normal Normal 0.0-1.0 [facility] Comment on above: Performed By: #### U A ####[facility] Tzf[address] [place] [address] lab Director: Jelani Liu MD Consent for Treatmenton 09-28 Consent for Treatment [id number] .00CD:127 Normal [facility] Discharge Instructionson Discharge Instructions [id number] 1.00CD:127 Normal [facility] ED Clinical Summaryon 2022 ED Clinical Summary [address] [address] ED Clinical Summary Person Information Name: JESSICA FERRERA Mk/[facility] Age: 67 Years : 1955 Sex: Female Language: Zambian PCP: Ricardo Hooper MD Marital Status: Visit [...] 10/10/2022 16:00:24 10/10/2022 16:00:24 10/10/2022 16:00:24 ADDRESS: [address] [place] [address] [id number] [phone] PHYS DOC NOTES: MEDICAL INFORMATION: Prescriptions Given: [...] Follow up: With: Address: When: Ricardo Hooper [facility] [facility], [address] [place] [id number] [facility] (1) In 3 days 10/13/2022 Comments: Follow-up with your primary care provider in 3 to 5 days. If symptoms worsen, do not improve, or new symptoms arise please report back to emergency department for further evaluation. DIAGNOSIS: Left serous otitis media Normal [facility] ED Note-Physicianon 10-11-19 ED Note-Physician Basic Information Time Seen: Bo SAWANT, Thony Grijalva. 10/10/2022 15:28 Chief Complaint Pt had sinus infection beginning of September was placed on abx and felt better. Abx done on Wednesday, Wednesday started wtih L ear pain. Told to take antihistamines OTC. Saw [place] ER and told possible shingles on top of the antihistamines. States still having L History of Present Illness 67-year-old fe with a chief complaint of male reports to the emergency department left ear pain. He reports that she just finished up antibiotic, but on Wednesday, she started with left ear pain. Reports that she was told to take alea-xia-ijzcknk antihistamine and other medications, to help with her symptoms, but this has not been helping. She also went to [place] emergency department, and was told that she [...] Complexity of Problems Differential Diagnosis: [] [facility] Data External documents reviewed: [] My EKG [...] very concerned because of her trip to [facility]. No other signs are positive on [...] Hooper In 3 days 10/13/2022 EDT [address] [facility] [place] [address] [place] [address]- (419) (more content not included)... Normal [facility] Comment on above: Result Comment: Elec tronically [...] weeks. Home care treatment may include: ? Qxhv-tur-digkrjg pain relievers. ? A warm, moist cloth placed over the ear. Severe cases may require a procedure to insert tubes in the ears (tympanostomy tubes) to drain the fluid. Follow these instructions at home: ? Take cfyf-ock-gemvihv and prescription medicines only as told by [...] Reviewed: 09/11/2021 Elsevier Patient Education ? 2022 [employer] Normal [facility] ED Patient Summaryon 023 ED Patient Summary [address] [address] Patient Discharge Instructions Person Information Name: JESSICA FERRERA Age: 67 Years Arrival Date: 10/10/2022 14:53:25 Discharge Diagnosis: Left serous otitis media Primary Care Physician: Ricardo Hooper MD Provider Information Primary Provider: Rocael Wayne DO Advanced Shelf Drier Operator:None The exam and treatment you received in the Emergency Department were for an urgent problem and are not intended as complete care. It is important that you follow up with a doctor, nurse practitioner, or physician?s chemistry research assistant for ongoing care. If your symptoms [...] Follow-up Instructions: With: Address: When: Ricardo Hooper [address] [place] [address], [place] [address] [facility] (1) In 3 days 10/13/2022 Comments: [...] opioids can be used to help relieve rfxehjim-og-bkajsn pain and are often prescribed following a [...] guidance from the Food and Drug Administration (www.fda.gov/Drugs/Re sourcesForYou). ? Visit www.cdc.gov/drugoverd ose to learn about the risks of opioids abuse and (more content not included)... Normal [facility] CBC W Auto Differential pane l (Bld)on 10-07-2022 Anisocytosis Ql (Bld) Present Normal [facility] Comment on above: Order Comment: Speci men Type: BLOOD SPECIMENOrdering Facility: [facility] Address: [address] [place] [address] Performed By: #### 5 7021-8 ####[facility] LABCLIA [id number] [address] LABCLIA [id number] [place] [address] [place] Basophils (Bld) [#/Vol] 0.09 10*3/uL Normal <0.11 [facility] Comment on above: Order Comment: Speci men Type: BLOOD SPECIMENOrdering Facility: [facility] Address: [address] [place] [address] Performed By: #### 5 7021-8 ####[facility] LABCLIA [id number] [address] LABCLIA [id number] [place] [address] [place] Basophils/100 WBC (Bld) 0.7 % Normal [facility] Comment on above: Order Comment: Speci men Type: BLOOD SPECIMENOrdering Facility: [facility] Address: [address] [place] [address] Performed By: #### 5 7021-8 ####[facility] LABCLIA [id number] [address] [facility] LABCLIA [id number] [place] [address] [place] Differential cell count method Nom (Bld) Auto Normal [facility] Comment on above: Order Comment: Speci men Type: BLOOD SPECIMENOrdering Facility: [facility] Address: [address] [place] [address] Performed By: #### 5 7021-8 ####[facility] LABCLIA [id number] [address] LABCLIA [id number] [place] [address] [place] Eosinophils (Bld) [#/Vol] 10*3/uL Normal <0.46 [facility] Comment on above: Order Comment: Speci men Type: BLOOD SPECIMENOrdering Facility: [facility] Address: [address] [place] [address] Performed By: #### 5 7021-8 ####[facility] LABCLIA [id number] [address] LABCLIA [id number] [place] [address] [place] Eosinophils/100 WBC (Bld) 0.1 % Normal [facility] Comment on above: Order Comment: Speci men Type: BLOOD SPECIMENOrdering Facility: [facility] Address: [address] [place] [address] Performed By: #### 5 7021-8 ####[facility] LABCLIA [id number] [address] LABCLIA [id number] [place] [address] [place] Erythrocyte distribution width (RBC) [Ratio] 15.3 % High 11.5-15.0 [facility] Comment on above: Order Comment: Speci men Type: BLOOD SPECIMENOrdering Facility: [facility] Address: [address] Performed By: #### 5 7021-8 ####[facility] LABCLIA [id number] [address] LABCLIA [id number] [place] [address] [place] Hematocrit (Bld) [Volume fraction] 45.1 % Normal 36.0-46.0 [facility] Comment on above: Order Comment: Speci men Type: BLOOD SPECIMENOrdering Facility: [facility] Address: [address] [place] [address] Performed By: #### 5 7021-8 ####[facility] LABCLIA [id number] [address] LABCLIA [id number] [place] [address] [place] Hemoglobin (Bld) [Mass/Vol] 14.4 g/dL Normal 11.5-15.5 [facility] Comment on above: Order Comment: Speci men Type: BLOOD SPECIMENOrdering Facility: [facility] Address: [address] Performed By: #### 5 7021-8 ####[facility] LABCLIA [id number] [address] LABCLIA [id number] [place] [address] [place] Immature granulocytes (Bld) [#/Vol] 0.09 10*3/uL Normal <0.10 [facility] Comment on above: Order Comment: Speci men Type: BLOOD SPECIMENOrdering Facility: [facility] Address: [address] Performed By: #### 5 7021-8 ####[facility] LABCLIA [id number] [address] LABCLIA [id number] [place] [address] [place] Immature granulocytes/100 WBC (Bld) 0.7 % Normal [facility] Comment on above: Order Comment: Speci men Type: BLOOD SPECIMENOrdering Facility: [facility] Address: [address] [place] [address] Performed By: #### 5 7021-8 ####[facility] LABCLIA [id number] [address] LABCLIA [id number] [place] [address] [place] Lymphocytes (Bld) [#/Vol] 5.07 10*3/uL High 1.00-4.00 [facility] Comment on above: Order Comment: Speci men Type: BLOOD SPECIMENOrdering Facility: [facility] Address: [address] [place], [place] [address] Performed By: #### 5 7021-8 ####[facility] LABCLIA [id number] [address] LABCLIA [id number] [place] [address] [place] Lymphocytes/100 WBC (Bld) 39.0 % Normal [facility] Comment on above: Order Comment: Speci men Type: BLOOD SPECIMENOrdering Facility: [facility] Address: [address] [place] [address] Performed By: #### 5 7021-8 ####[facility] LABCLIA [id number] [address] LABCLIA [id number] [place] [address] [place] MCH (RBC) [Entitic mass] 28.6 pg Normal 26.0-34.0 [facility] Comment on above: Order Comment: Speci men Type: BLOOD SPECIMENOrdering Facility: [facility] Address: [address] [place], [place] [address] Performed By: #### 5 7021-8 ####[facility] LABCLIA [id number] [address] LABCLIA [id number] [place] [address] [place] MCHC (RBC) [Mass/Vol] 31.9 g/dL Normal 30.5-36.0 [facility] Comment on above: Order Comment: Speci men Type: BLOOD SPECIMENOrdering Facility: [facility] Address: [address] [place] [address] Performed By: #### 5 7021-8 ####[facility] LABCLIA [id number] [address] LABCLIA [id number] [place] [address] [place] MCV (RBC) [Entitic vol] 89.5 fL Normal 80.0-100.0 [facility] Comment on above: Order Comment: Speci men Type: BLOOD SPECIMENOrdering Facility: [facility] Address: [address] [place] [place] [address] Performed By: #### 5 7021-8 ####[facility] LABCLIA [id number] [address] LABCLIA [id number] [place] [address] [place] Monocytes (Bld) [#/Vol] 1.10 10*3/uL High <0.87 [facility] Comment on above: Order Comment: Speci men Type: BLOOD SPECIMENOrdering Facility: [facility] Address: [address] Performed By: #### 5 7021-8 ####[facility] LABCLIA [id number] [address] LABCLIA [id number] [place] [address] [place] Monocytes/100 WBC (Bld) 8.5 % Normal [facility] Comment on above: Order Comment: Speci men Type: BLOOD SPECIMENOrdering Facility: [facility] Address: [address] [place] [address] Performed By: #### 5 7021-8 ####[facility] LABCLIA [id number] [address] LABCLIA [id number] [place] [address] [place] Neutrophils (Bld) [#/Vol] 6.65 10*3/uL Normal 1.45-7.50 [facility] Comment on above: Order Comment: Speci men Type: BLOOD SPECIMENOrdering Facility: [facility] Address: [address] [place] [address] Performed By: #### 5 7021-8 ####[facility] LABCLIA [id number] [address] LABCLIA [id number] [address] [place] Neutrophils/100 WBC (Bld) 51.0 % Normal [facility] Comment on above: Order Comment: Speci men Type: BLOOD SPECIMENOrdering Facility: [facility] Address: [address] [place] [address] Performed By: #### 5 7021-8 ####[facility] LABCLIA [id number] [address] LABCLIA [id number] [place] [address] [place] Nucleated RBC (Bld) [#/Vol] 10*3/uL Normal <0.01 [facility] Comment on above: Order Comment: Speci men Type: BLOOD SPECIMENOrdering Facility: [facility] Address: [address] [place], [place] [address] Performed By: #### 5 7021-8 ####[facility] LABCLIA [id number] [address] LABCLIA [id number] [place] [address] [place] Nucleated RBC/100 WBC (Bld) [Ratio] 0.0 /100 WBC Normal [facility] Comment on above: Order Comment: Speci men Type: BLOOD SPECIMENOrdering Facility: [facility] Address: [address] Performed By: #### 5 7021-8 ####[facility] LABCLIA [id number] [address] LABCLIA [id number] [place] [address] [place] Ovalocytes LM Ql (Bld) Few Normal [facility] Comment on above: Order Comment: Speci men Type: BLOOD SPECIMENOrdering Facility: [facility] Address: [address] Performed By: #### 5 7021-8 ####[facility] LABCLIA [id number] [address] LABCLIA [id number] [place] [address] [place] Platelet mean volume (Bld) [Entitic vol] 9.5 fL Normal 9.0-12.7 [facility] Comment on above: Order Comment: Speci men Type: BLOOD SPECIMENOrdering Facility: [facility] Address: [address] [place] [address] Performed By: #### 5 7021-8 ####[facility] LABCLIA [id number] [address] LABCLIA [id number] [place] [address] [place] Platelets (Bld) [#/Vol] 307 10*3/uL Normal 150-400 [facility] Comment on above: Order Comment: Speci men Type: BLOOD SPECIMENOrdering Facility: [facility] Address: [address] [place], [place] [address] Performed By: #### 5 7021-8 ####[facility] LABIA [id number] [address] LABCLIA [id number] [place] [address] [place] Platelets Estimate (Bld) [#/Vol] Adequate Normal [facility] Comment on above: Order Comment: Speci men Type: BLOOD SPECIMENOrdering Facility: [facility] Address: [address] [place], [place] [address] Performed By: #### 5 7021-8 ####[facility] LABCLIA [id number] [address] LABCLIA [id number] [place] [address] [place] RBC (Bld) [#/Vol] 5.04 10*6/uL Normal 3.90-5.20 [facility] Comment on above: Order Comment: Speci men Type: BLOOD SPECIMENOrdering Facility: [facility] Address: [address] [place] [address] Performed By: #### 5 7021-8 ####[facility] LABIA [id number] [address] LABCLIA [id number] [place] [address] [place] RED CELL MORPH Reviewed: see result s of individual morphologies Normal [facility] Comment on above: Order Comment: Speci men Type: BLOOD SPECIMENOrdering Facility: [facility] Address: [address] [place] [address] Performed By: #### 5 7021-8 ####[facility] LABCLIA [id number] [place], [place] [address]HWLIDWMNYPAR[facility] LABCLIA [id number] [place] [address] [place] WBC (Bld) [#/Vol] 13.01 10*3/uL High 3.70-11.00 [facility] Comment on above: Order Comment: Speci men Type: BLOOD SPECIMENOrdering Facility: [facility] Address: [address] [address] Performed By: #### 5 7021-8 ####[facility] LABCLIA [id number] [place], [place] [address] [place] [address] LABCLIA [id number] [address] [place] CNOVSPon 10-07-2022 CNOVSP Visit (SP) Office ([facility]) JESSICA FERRERA ([id number]) 1955 F Date Time Provider Department 10/07/22 [...] AM Signed NAME: Jessica Ferrera CLINIC NO.: [id number] DATE OF SERVICE: June 10, 2022 (Andra) [...] stable - can reassess in 6 months. [facility] Clinical Note Previous notes reviewed today in [...] with more than 50% of the total gypb-ww-lkrj time of the visit in counseling / coordination of care. Yo Morse MD, MS Retail Manager In Trainingframe trimmer Hematology and Medical Oncology [address] [address], [place] [address] ========= Labs and Imaging Reviewed outside records provided prior to this visit and those in [facility]. as diagnosed by Dr. Morse [facility]. No evidence of a paraprotein. Negative hepatitis [...] me know. (more content not included)... Normal [facility] Comprehensive metabolic 2000 panelon 10-07-2022 Albumin [Mass/Vol] 4.4 g/dL Normal 3.9-4.9 [facility] Comment on above: Order Comment: Speci men Type: BLOOD SPECIMENOrdering Facility: [facility] Address: [address] [place] [address] Performed By: #### 2 4323-8 ####[facility] LABCLIA [id number] [place] [address] ALP [Catalytic activity/Vol] 95 U/L Normal 34-123 [facility] Comment on above: Order Comment: Speci men Type: BLOOD SPECIMENOrdering Facility: [facility] Address: [address] [place] [address] Performed By: #### 2 4323-8 ####[facility] LABCLIA [id number] [place] [address] ALT [Catalytic activity/Vol] 17 U/L Normal 7-38 [facility] Comment on above: Order Comment: Speci men Type: BLOOD SPECIMENOrdering Facility: [facility] Address: [address] [place] [address] Performed By: #### 2 4323-8 ####[facility] LABCLIA [id number] [place] [address] Anion gap [Moles/Vol] 11 mmol/L Normal 9-18 [facility] Comment on above: Order Comment: Speci men Type: BLOOD SPECIMENOrdering Facility: [facility] Address: [address] [place] [address] Performed By: #### 2 4323-8 ####[facility] LABCLIA [id number] [place] [address] AST [Catalytic activity/Vol] 15 U/L Normal 13-35 [facility] Comment on above: Order Comment: Speci men Type: BLOOD SPECIMENOrdering Facility: [facility] Address: [address] [address] Performed By: #### 2 4323-8 ####[facility] LABCLIA [id number] [place] [address] Bilirubin [Mass/Vol] 0.3 mg/dL Normal 0.2-1.3 [facility] Comment on above: Order Comment: Speci men Type: BLOOD SPECIMENOrdering Facility: [facility] Address: [address] [address] Performed By: #### 2 4323-8 ####[facility] LABCLIA [id number] [place] [address] Calcium [Mass/Vol] 9.4 mg/dL Normal 8.5-10.2 [facility] Comment on above: Order Comment: Speci men Type: BLOOD SPECIMENOrdering Facility: [facility] Address: [address] [place] [address] Performed By: #### 2 4323-8 ####[facility] LABCLIA [id number] [place] [address] Chloride [Moles/Vol] 102 mmol/L Normal 97-105 [facility] Comment on above: Order Comment: Speci men Type: BLOOD SPECIMENOrdering Facility: [facility] Address: [address] [place] [address] Performed By: #### 2 4323-8 ####[facility] LABCLIA [id number] [place] [address] CO2 [Moles/Vol] 27 mmol/L Normal 22-30 [facility] Comment on above: Order Comment: Speci men Type: BLOOD SPECIMENOrdering Facility: [facility] Address: [address] [place] [address] Performed By: #### 2 4323-8 ####[facility] LABCLIA [id number] [place] [address] Creatinine [Mass/Vol] 0.95 mg/dL Normal 0.58-0.96 [facility] Comment on above: Order Comment: Rocio edmund Type: BLOOD SPECIMENOrdering Facility: [facility] Address: [address] [id number] Performed By: #### 2 4323-8 ####[facility] LABCLIA [id number] [place] [address] ESTIMATED GLOMERULAR FILTRATION RATE 66 mL/min/1.73m??? Normal >=60 [facility] Comment on above: Order Comment: Rocio edmund Type: BLOOD SPECIMENOrdering Facility: [facility] Address: [address] [address] Result Comment: Abigail mated Glomerular Filtration Rate [...] actual GFR. Performed By: #### 2 4323-8 ####[facility] LABCLIA [id number] [place] [address] Glucose [Mass/Vol] 105 mg/dL High 74-99 [facility] Comment on above: Order Comment: Bonnyelvin shaffer Type: BLOOD SPECIMENOrdering Facility: [facility] Address: [address] [address] Result Comment: The [place] [employer] Association (ADA) provides guidance for cutoff [...] Standards of Medical Care in Diabetes 2016, [place] [employer]. Diabetes Care. 2016.39(Suppl 1). Performed By: #### 2 4323-8 ####[facility] LABCLIA [id number] [place] [address] Potassium [Moles/Vol] 3.9 mmol/L Normal 3.7-5.1 [facility] Comment on above: Order Comment: Speci men Type: BLOOD SPECIMENOrdering Facility: [facility] Address: [address] [address] Performed By: #### 2 4323-8 ####[facility] LABCLIA [id number] [place] [address] Protein [Mass/Vol] 6.8 g/dL Normal 6.3-8.0 [facility] Comment on above: Order Comment: Speci men Type: BLOOD SPECIMENOrdering Facility: [facility] Address: [address] [place] [address] Performed By: #### 2 4323-8 ####[facility] LABCLIA [id number] [place] [address] Sodium [Moles/Vol] 140 mmol/L Normal 136-144 [facility] Comment on above: Order Comment: Speci men Type: BLOOD SPECIMENOrdering Facility: [facility] Address: [address] [place] [address] Performed By: #### 2 4323-8 ####[facility] LABCLIA [id number] [place] [address] Urea nitrogen [Mass/Vol] 11 mg/dL Normal 7-21 [facility] Comment on above: Order Comment: Speci men Type: BLOOD SPECIMENOrdering Facility: [facility] Address: [address] [place] [address] Performed By: #### 2 4323-8 ####[facility] LABCLIA [id number] [place] [address] Ferritin SerPl-mCncon 2022 Ferritin [Mass/Vol] 24.4 ng/mL Normal 14.7-205.1 [facility] Comment on above: Order Comment: Speci men Type: BLOOD SPECIMENOrdering Facility: [facility] Address: [address] [place] [address] Performed By: #### 2 132-9, 2284-8, 2276-4, 65629-8 ####[facility] LABCLIA [id number] [place] [address] [place] Folate [facility]19 23 Folate [Mass/Vol] 17.6 ng/mL Normal >4.7 [facility] Comment on above: Order Comment: Speci men Type: BLOOD SPECIMENOrdering Facility: [facility] Address: [address] [place] [address] Performed By: #### 2 132-9, 2284-8, 6-4, 67354-7 ####[facility] LABCLIA [id number] [place] [address] [place] Iron and Iron binding capaci [facility] 10-07-2022 Iron [Mass/Vol] 97 ug/dL Normal 41-186 [facility] Comment on above: Order Comment: Speci men Type: BLOOD SPECIMENOrdering Facility: [facility] Address: [address] [place] [address] Performed By: #### 2 132-9, 2284-8, 6-4, 14899-6 ####[facility] LABCLIA [id number] [place] [address] [place] Iron binding capacity [Mass/Vol] 379 ug/dL Normal 232-386 [facility] Comment on above: Order Comment: Speci men Type: BLOOD SPECIMENOrdering Facility: [facility] Address: [address] [place] [address] Performed By: #### 2 132-9, 2284-8, 2276-4, 90037-3 ####[facility] LABCLIA [id number] [place] [address] [place] Iron/TIBC [Molar ratio] 25.6 % Normal 15.0-57.0 [facility] Comment on above: Order Comment: Speci men Type: BLOOD SPECIMENOrdering Facility: [facility] Address: [address] [place] [address] Performed By: #### 2 132-9, 2284-8, 2276-4, 57973-0 ####[facility] LABIA [id number] [place] [address] [place] Vit B12 [facility] 05-10-2 023 Cobalamin (Vitamin B12) [Mass/Vol] 316 pg/mL Normal 232-1245 [facility] Comment on above: Order Comment: Speci men Type: BLOOD SPECIMENOrdering Facility: [facility] Address: [address] [place] [address] Performed By: #### 2 132-9, 2284-8, 2276-4, 50362-7 ####[facility] LABIA [id number] [address] [place] [id number] [place] INSULINon 08-31-2022 Insulin 18.9 uIU/mL Normal 2.6-24.9 [facility] Comment on above: Performed By: #### I NSULIN #### [facility] [address] [place] [address] Dr. Barrington Gomez CBC AUTO DIFFon 08-29-2022 BASO # 0.1 103/ul Normal 0.0-0.1 [facility] Comment on above: Performed By: #### C BC #### [facility] [address] [place] [address] Dr. Barrington Gomez Basophils/100 WBC (Bld) 0.9 % Normal 0.2-2.0 [facility] Comment on above: Performed By: #### C BC #### [facility] [address] [place] [address] Dr. Barrington Gomez EO # 0.1 103/ul Normal 0.0-0.7 [facility] Comment on above: Performed By: #### C BC #### [facility] [address] [place] [address] Dr. Barrington Gomez Eosinophils/100 WBC (Bld) 1.9 % Normal 0.9-7.0 [facility] Comment on above: Performed By: #### C BC #### [facility] [address] [place] [address] Dr. Barrington Gomez Erythrocyte distribution width (RBC) [Ratio] 16.9 % Critically high 11.0-15.0 [facility] Comment on above: Performed By: #### C BC #### [facility] [address] [place] [address] Dr. Barrington Gomez Hematocrit (Bld) [Volume fraction] 44.4 % Normal 36.0-48.0 [facility] Comment on above: Performed By: #### C BC #### [facility] [address] [place] [address] Dr. Barrington Gomez Hemoglobin (Bld) [Mass/Vol] 13.9 g/dL Normal 12.0-16.0 [facility] Comment on above: Performed By: #### C BC #### [facility] [address] [place] [address] Dr. Barrington Gomez IG # 0.02 10e3/ul Normal 0.00-0.03 [facility] Comment on above: Performed By: #### C BC #### [facility] [address] [place] [address] Dr. Barrington Gomez IG % 0.3 % Normal 0.0-0.5 [facility] Comment on above: Performed By: #### C BC #### [facility] [address] [place] [address] Dr. Barrington Gomez LYMPH # 3.0 103/ul Normal 1.2-3.8 [facility] Comment on above: Performed By: #### C BC #### [facility] [address] [place] [address] Dr. Barrington Gomez Lymphocytes/100 WBC (Bld) 47.6 % Normal 20.5-60.0 [facility] Comment on above: Performed By: #### C BC #### [facility] [address] [place] [address] Dr. Barrington Gomez MANUAL DIFF REQ NO Normal [facility] Comment on above: Performed By: #### C BC #### [facility] [address] [place] [address] Dr. Barrington Gomez MCH (RBC) [Entitic mass] 27.4 pg Normal 26.7-34.0 [facility] Comment on above: Performed By: #### C BC #### [facility] [address] [place] [address] Dr. Barrington Gomez MCHC (RBC) [Mass/Vol] 31.3 g/dL Normal 29.9-35.2 [facility] Comment on above: Performed By: #### C BC #### [facility] [address] [place] [address] Dr. Barrington Gomez MCV (RBC) [Entitic vol] 87.6 fL Normal 81.0-99.0 [facility] Comment on above: Performed By: #### C BC #### [facility] [address] [place] [address] Dr. Barrington Gomez MONO # 0.6 103/ul Normal 0.3-0.8 [facility] Comment on above: Performed By: #### C BC #### [facility] [address] [place] [address] Dr. Barrington Gomez Monocytes/100 WBC (Bld) 8.8 % Normal 1.7-12.0 [facility] Comment on above: Performed By: #### C BC #### [facility] [address] [place] [address] Dr. Barrington Gomez NEUT # 2.6 103/ul Normal 1.4-6.5 [facility] Comment on above: Performed By: #### C BC #### [facility] [address] [place] [address] Dr. Barrington Gomez Neutrophils/100 WBC (Bld) 40.5 % Critically low 43.0-75.0 [facility] Comment on above: Performed By: #### C BC #### [facility] [address] [place] [address] Dr. Barrington Gomez Platelet mean volume (Bld) [Entitic vol] 9.4 fL Critically low 9.5-13.5 [facility] Comment on above: Performed By: #### C BC #### [facility] [address] [address] [address] Barrington Gomez PLT 243 103/ul Normal 150-450 [facility] Comment on above: Performed By: #### C BC #### [facility] [address] [place] [address] Dr. Barrington Gomez RBC 5.07 106/ul Normal 4.20-5.40 [facility] Comment on above: Performed By: #### C BC #### [facility] [address] [place] [address] Dr. Barrington Gomez WBC 6.4 103/ul Normal 4.0-11.0 [facility] Comment on above: Performed By: #### C BC #### [facility] [address] [place] [address] Dr. Barrington Gomez FREE THYROXINE INDEX T7on FTI 3.07 Normal 1.30-4.50 [facility] Comment on above: Performed By: #### U AMIC #### [facility] [address] [place] [address] Dr. Barrington Gomez T3U 32.0 % Normal 30.0-39.0 [facility] Comment on above: Performed By: #### U AMIC #### [facility] [address] [place] [address] Dr. Barrington Gomez T4 [Mass/Vol] 9.60 ug/dL Normal 4.80-13.90 [facility] Comment on above: Performed By: #### U AMIC #### [facility] [address] [place] [address] Dr. Barrington Gomez GLYCOHEMOGLOBIN A1Con 2022 ADA RECOMMENDATION SEE BELOW Normal [facility] Comment on above: Result Comment: ADA RECOMMENDED LIMIT 4.0 - 6.0 ADA THERAPEUTIC TARGET < 7.0 ACTION SUGGESTED > 7.0 Performed By: #### A 1C #### [facility] [address] [place] [address] Dr. Barrington Gomez Glucose [Mass/Vol] 120 mg/dL Normal [facility] Comment on above: Performed By: #### A 1C #### [facility] [address] [address] [address] Barrington Gomez HbA1c (Bld) [Mass fraction] 5.8 % Normal 4.5-6.2 [facility] Comment on above: Performed By: #### A 1C #### [facility] [address] [place] [address] Dr. Barrington Gomez IRONon 08-29-2022 Iron [Mass/Vol] 85.0 ug/dL Normal 50.0-170.0 [facility] Comment on above: Performed By: #### U AMIC #### [facility] [address] [place] [address] Dr. Barrington Gomez LIPID PROFILEon 08-29-2022 CHOL-HDL RATIO NORM SEE BELOW Normal [facility] Comment on above: Result Comment: 3.3 - 4.4 LOW RISK 4.4 - 7.1 AVERAGE RISK 7.1 - 11.0 MODERATE RISK >11.0 HIGH RISK Performed By: #### U AMIC #### [facility] [address] [place] [address] Dr. Barrington Gomez Cholesterol [Mass/Vol] 226 mg/dL Critically high <=200 [facility] Comment on above: Performed By: #### U AMIC #### [facility] [address] [place] [address] Dr. Barrington Gomez Cholesterol in HDL [Mass/Vol] 93 mg/dL Critically high 40-60 [facility] Comment on above: Performed By: #### U AMIC #### [facility] [address] [place] [address] Dr. Barrington Gomez Cholesterol in LDL [Mass/Vol] 114.6 mg/dL Normal [facility] Comment on above: Performed By: #### U AMIC #### [facility] [address] [address] [address] Barringotn Gomez Cholesterol.total/Choles terol in HDL [Mass ratio] 2.4 {ratio} Normal [facility] Comment on above: Performed By: #### U AMIC #### [facility] [address] [address] [address] Barrington Gomez HDL NORMAL > or = 60 mg/dl - LO W CARDIOVASCULAR RISK <40 mg/dl - HIGH CARDIOVASCULAR RISK Normal [facility] Comment on above: Performed By: #### U AMIC #### [facility] [address] [address] [address] Barrington Gomez LDL CALC NORMAL SEE BELOW Normal [facility] Comment on above: Result Comment: <100 mg/dl OPTIMAL 100 - 129 mg/dl NEAR OR ABOVE OPTIMAL 130 - 159 mg/dl BORDERLINE HIGH 160 - 189 mg/dl HIGH >190 mg/dl VERY HIGH Performed By: #### U AMIC #### [facility] [address] [address] [address] Barrington Gomez Triglyceride [Mass/Vol] 92 mg/dL Normal <=150 [facility] Comment on above: Performed By: #### U AMIC #### [facility] [address] [address] [address] Barrington Gomez VLDL CALC 18.4 mg/dL Normal [facility] Comment on above: Performed By: #### U AMIC #### [facility] [address] [address] [address] Barrington Gomez PROF 14(COMP METB)on 023 Albumin [Mass/Vol] 3.5 g/dL Normal 3.4-5.0 [facility] Comment on above: Performed By: #### U AMIC #### [facility] [address] [address] [address] Barrington Gomez Albumin/Globulin [Mass ratio] 1.1 {ratio} Normal [facility] Comment on above: Performed By: #### U AMIC #### [facility] [address] [address] [address] Barrington Gomez ALP [Catalytic activity/Vol] 71 U/L Normal 46-116 [facility] Comment on above: Performed By: #### U AMIC #### [facility] [address] [address] [address] Barrington Gomez ALT [Catalytic activity/Vol] 28 U/L Normal 14-59 [facility] Comment on above: Performed By: #### U AMIC #### [facility] [address] [address] [address] Barrington Gomez Anion gap [Moles/Vol] 10.4 mmol/L Normal Th [facility] Comment on above: Performed By: #### U AMIC #### [facility] [address] [place] [address] Dr. Barrington Gomez AST [Catalytic activity/Vol] 15 U/L Normal 15-37 [facility] Comment on above: Performed By: #### U AMIC #### [facility] [address] [address] [address] Barrington Gomez Bilirubin [Mass/Vol] 0.4 mg/dL Normal 0.2-1.0 [facility] Comment on above: Performed By: #### U AMIC #### [facility] [address] [place] [address] Dr. Barrington Gomez Calcium [Mass/Vol] 9.4 mg/dL Normal 8.5-10.1 [facility] Comment on above: Performed By: #### U AMIC #### [facility] [address] [address] [address] Barrington Gomez Chloride [Moles/Vol] 106 mmol/L Normal 98-107 [facility] Comment on above: Performed By: #### U AMIC #### [facility] [address] [address] [address] Barrington Gomez CO2 [Moles/Vol] 29.8 mmol/L Normal 21.0-32.0 [facility] Comment on above: Performed By: #### U AMIC #### [facility] [address] [place] [address] Dr. Barrington Gomez Creatinine [Mass/Vol] 0.91 mg/dL Normal 0.55-1.02 [facility] Comment on above: Performed By: #### U AMIC #### [facility] [address] [address] [address] Barrington Gomez EGFR-AF [place] >60 Normal >=60 [facility] Comment on above: Performed By: #### U AMIC #### [facility] [address] [address] [address] Barrington Gomez EGFR-NON AF [place] >60 Normal >=60 [facility] Comment on above: Performed By: #### U AMIC #### [facility] [address] [address] [address] Barrington Gomez Globulin (S) [Mass/Vol] 3.1 g/dL Normal T [facility] Comment on above: Performed By: #### U AMIC #### [facility] [address] [address] [address] Barrington Gomez Glucose [Mass/Vol] 88 mg/dL Normal 74-106 [facility] Comment on above: Performed By: #### U AMIC #### [facility] [address] [address] [address] Barrington Gomez Potassium [Moles/Vol] 4.2 mmol/L Normal 3.5-5.1 [facility] Comment on above: Performed By: #### U AMIC #### [facility] [address] [address] [address] Barrington Gomez Protein [Mass/Vol] 6.6 g/dL Normal 6.4-8.2 [facility] Comment on above: Performed By: #### U AMIC #### [facility] [address] [address] [address] Barrington Gomez Sodium [Moles/Vol] 142 mmol/L Normal 136-145 [facility] Comment on above: Performed By: #### U AMIC #### [facility] [address] [address] [address] Barrington Gomez Urea nitrogen [Mass/Vol] 13.0 mg/dL Normal 7.0-18.0 [facility] Comment on above: Performed By: #### U AMIC #### [facility] [address] [address] [address] Barrington Gomez Urea nitrogen/Creatinine [Mass ratio] 14.3 mg/mg Normal [facility] Comment on above: Performed By: #### U AMIC #### [facility] [address] [address] [address] Barrington Gomez TSHon 08-29-2022 TSH 1.585 uIU/mL Normal 0.358-3.740 [facility] Comment on above: Performed By: #### U AMIC #### [facility] [address] [address] [address] Barrington Gomez CBC W Auto Differential pane l (Bld)on 06-10-2022 Basophils (Bld) [#/Vol] 0.09 10*3/uL Normal <0.11 [facility] Comment on above: Order Comment: Speci men Type: BLOOD SPECIMEN [facility]ing Facility: [facility] Address: [address] [address] Performed By: #### 5 7021-8 #### [facility] CLIA [id number] [address] [place] [address] Basophils/100 WBC (Bld) 1.4 % Normal [facility] Comment on above: Order Comment: Speci men Type: BLOOD SPECIMEN [facility]ing Facility: [facility] Address: [address] [address] Performed By: #### 5 7021-8 #### [facility] CLIA [id number] [address] [place] [address] Differential cell count method Nom (Bld) Auto Normal [facility] Comment on above: Order Comment: Speci men Type: BLOOD SPECIMEN Ordering Facility: [facility] Address: [address] [address] Performed By: #### 5 7021-8 #### [facility] CLIA [id number] [address] [place] [address] Eosinophils (Bld) [#/Vol] 0.42 10*3/uL Normal <0.46 [facility] Comment on above: Order Comment: Speci men Type: BLOOD SPECIMEN Ordering Facility: [facility] Address: [address] [address] Performed By: #### 5 7021-8 #### [facility] CLIA [id number] [address] [place] [address] Eosinophils/100 WBC (Bld) 6.6 % Normal [facility] Comment on above: Order Comment: Speci men Type: BLOOD SPECIMEN Ordering Facility: [facility] Address: [address] [address] Performed By: #### 5 7021-8 #### [facility] CLIA [id number] [address] [place] [address] Erythrocyte distribution width (RBC) [Ratio] 21.7 % High 11.5-15.0 [facility] Comment on above: Order Comment: Speci men Type: BLOOD SPECIMEN Ordering Facility: [facility] Address: [address] [address] Performed By: #### 5 7021-8 #### [facility] CLIA [id number] [address] [place] [address] Hematocrit (Bld) [Volume fraction] 40.6 % Normal 36.0-46.0 [facility] Comment on above: Order Comment: Speci men Type: BLOOD SPECIMEN Ordering Facility: [facility] Address: [address] [address] Performed By: #### 5 7021-8 #### [facility] CLIA [id number] [address] [place] [address] Hemoglobin (Bld) [Mass/Vol] 12.2 g/dL Normal 11.5-15.5 [facility] Comment on above: Order Comment: Speci men Type: BLOOD SPECIMEN Ordering Facility: [facility] Address: [address] [address] Performed By: #### 5 7021-8 #### [facility] CLIA [id number] [address] [place] [address] Immature granulocytes (Bld) [#/Vol] 10*3/uL Normal <0.10 [facility] Comment on above: Order Comment: Speci men Type: BLOOD SPECIMEN Ordering Facility: [facility] Address: [address] [address] Performed By: #### 5 7021-8 #### [facility] CLIA [id number] [address] [place] [address] Immature granulocytes/100 WBC (Bld) 0.2 % Normal [facility] Comment on above: Order Comment: Speci men Type: BLOOD SPECIMEN Ordering Facility: [facility] Address: [address] [place] [address] Performed By: #### 5 7021-8 #### [facility] CLIA [id number] [address] [place] [address]2749 Lymphocytes (Bld) [#/Vol] 3.02 10*3/uL Normal 1.00-4.00 [facility] Comment on above: Order Comment: Speci men Type: BLOOD SPECIMEN Ordering Facility: [facility] Address: [address] [place] [address] Performed By: #### 5 7021-8 #### [facility] CLIA [id number] [address] [place] [address] 16439 Lymphocytes/100 WBC (Bld) 47.4 % Normal [facility] Comment on above: Order Comment: Speci men Type: BLOOD SPECIMEN Ordering Facility: [facility] Address: [address] [place] [address] Performed By: #### 5 7021-8 #### [facility] CLIA [id number] [address] [place] [address] 22493 MCH (RBC) [Entitic mass] 24.5 pg Low 26.0-34.0 [facility] Comment on above: Order Comment: Speci men Type: BLOOD SPECIMEN Ordering Facility: [facility] Address: [address] [address] Performed By: #### 5 7021-8 #### [facility] CLIA [id number] [address] [place] [address] 06773 MCHC (RBC) [Mass/Vol] 30.0 g/dL Low 30.5-36.0 [facility] Comment on above: Order Comment: Speci men Type: BLOOD SPECIMEN Ordering Facility: [facility] Address: [address] [address] Performed By: #### 5 7021-8 #### [facility] CLIA [id number] [address] [place] [address] 86797 MCV (RBC) [Entitic vol] 81.5 fL Normal 80.0-100.0 [facility] Comment on above: Order Comment: Speci men Type: BLOOD SPECIMEN Ordering Facility: [facility] Address: [address] [address] Performed By: #### 5 7021-8 #### [facility] CLIA [id number] [address] [place] [address] 01914 Monocytes (Bld) [#/Vol] 0.72 10*3/uL Normal <0.87 [facility] Comment on above: Order Comment: Speci men Type: BLOOD SPECIMEN Ordering Facility: [facility] Address: [address] [address] Performed By: #### 5 7021-8 #### [facility] CLIA [id number] [address] [place] [address] 55997 Monocytes/100 WBC (Bld) 11.3 % Normal [facility] Comment on above: Order Comment: Speci men Type: BLOOD SPECIMEN Ordering Facility: [facility] Address: [address] [address] Performed By: #### 5 7021-8 #### [facility] CLIA [id number] [address] [place] [address] 84194 Neutrophils (Bld) [#/Vol] 2.11 10*3/uL Normal 1.45-7.50 [facility] Comment on above: Order Comment: Speci men Type: BLOOD SPECIMEN Ordering Facility: [facility] Address: [address] [address] Performed By: #### 5 7021-8 #### [facility] CLIA [id number] [address] [place] [address] 07278 Neutrophils/100 WBC (Bld) 33.1 % Normal [facility] Comment on above: Order Comment: Speci men Type: BLOOD SPECIMEN Ordering Facility: [facility] Address: [address] [address] Performed By: #### 5 7021-8 #### [facility] CLIA [id number] [address] [place] [address] 38162 Nucleated RBC (Bld) [#/Vol] 10*3/uL Normal <0.01 [facility] Comment on above: Order Comment: Speci men Type: BLOOD SPECIMEN Ordering Facility: [facility] Address: [address] [address] Performed By: #### 5 7021-8 #### [facility] CLIA [id number] [address] [place] [address] 86115 Nucleated RBC/100 WBC (Bld) [Ratio] 0.0 /100 WBC Normal [facility] Comment on above: Order Comment: Speci men Type: BLOOD SPECIMEN Ordering Facility: [facility] Address: [address] [address] Performed By: #### 5 7021-8 #### [facility] CLIA [id number] [address] [place] [address] 02442 Platelet mean volume (Bld) [Entitic vol] 10.0 fL Normal 9.0-12.7 [facility] Comment on above: Order Comment: Speci men Type: BLOOD SPECIMEN Ordering Facility: [facility] Address: [address] [address] Performed By: #### 5 7021-8 #### [facility] CLIA [id number] [address] [place] [address] Platelets (Bld) [#/Vol] 253 10*3/uL Normal 150-400 [facility] Comment on above: Order Comment: Speci men Type: BLOOD SPECIMEN Ordering Facility: [facility] Address: [address] [place] [address] Performed By: #### 5 7021-8 #### [facility] CLIA [id number] [address] [place] [address] 83155 RBC (Bld) [#/Vol] 4.98 10*6/uL Normal 3.90-5.20 [facility] Comment on above: Order Comment: Speci men Type: BLOOD SPECIMEN Ordering Facility: [facility] Address: [address] [place] [address] Performed By: #### 5 7021-8 #### [facility] CLIA [id number] [address] [place] [address] 11202 WBC (Bld) [#/Vol] 6.37 10*3/uL Normal 3.70-11.00 [facility] Comment on above: Order Comment: Speci men Type: BLOOD SPECIMEN Ordering Facility: [facility] Address: [address] [place] [address] Performed By: #### 5 7021-8 #### [facility] IA [id number] [address] [place] [address] 07265 CNOVSPon 06-10-2022 CNOVSP Visit (SP) Office ([place]) JESSICA FERRERA ([id number]) 1955 F Date Time Provider Department 06/10/22 10:45 AM JOSE BRYANT During your visit today, we recorded the following information about you: Temperature Pulse Respiration Blood pressure 97.2 degrees 73/minute 16/minute 152/87 Weight Height 105.9 kg 1.626 m Jose Bryant MD 06/10/2022 11:39 AM Signed NAME: Jessica Ferrera CLINIC NO.: [id number] DATE OF SERVICE: June 10, 2022 (Andra) [...] 1 year. Will discuss in 6 months. [facility] Clinical Note Previous notes reviewed today [...] with more than 50% of the total hfrc-qd-lhot time of the visit in counseling / coordination of care. Yo Morse MD, MS [employer] Hematology and Medical Oncology [address] [place] [address] ========= Labs and Imaging Reviewed outside records provided prior to this visit and those in [facility]. as diagnosed by Dr. Morse [facility]. No evidence of a paraprotein. Negative hepatitis [...] CT d (more content not included)... Normal [facility] Comprehensive metabolic 2000 panelon 06-10-2022 Albumin [Mass/Vol] 4.2 g/dL Normal 3.9-4.9 [facility] Comment on above: Order Comment: Speci edmund Type: BLOOD SPECIMENOrdering Facility: [facility] Address: [address] [address] Performed By: #### 2 4323-8 ####[facility] [id number] [place] [address] ALP [Catalytic activity/Vol] 78 U/L Normal 34-123 [facility] Comment on above: Order Comment: Rocio shaffer Type: BLOOD SPECIMENOrdering Facility: [facility] Address: [address] [address] Performed By: #### 2 4323-8 ####[facility] [id number] [place] [address] ALT [Catalytic activity/Vol] 15 U/L Normal 7-38 [facility] Comment on above: Order Comment: Rocio shaffer Type: BLOOD SPECIMENOrdering Facility: [facility] Address: [address] [address] Performed By: #### 2 4323-8 ####[facility]IA [id number] [place] [address] Anion gap [Moles/Vol] 7 mmol/L Low 9-18 [facility] Comment on above: Order Comment: Speci men Type: BLOOD SPECIMENOrdering Facility: [facility] Address: [address] [place] [address] Performed By: #### 2 4323-8 ####[facility]IA [id number] [place] [address] AST [Catalytic activity/Vol] 21 U/L Normal 13-35 [facility] Comment on above: Order Comment: Speci men Type: BLOOD SPECIMENOrdering Facility: [facility] Address: [address] [place] [address] Performed By: #### 2 4323-8 ####[facility] [id number] [place] [address] Bilirubin [Mass/Vol] 0.2 mg/dL Normal 0.2-1.3 [facility] Comment on above: Order Comment: Speci men Type: BLOOD SPECIMENOrdering Facility: [facility] Address: [address] [place] [address] Performed By: #### 2 4323-8 ####[facility]IA [id number] [place] [address] Calcium [Mass/Vol] 9.4 mg/dL Normal 8.5-10.2 [facility] Comment on above: Order Comment: Speci men Type: BLOOD SPECIMENOrdering Facility: [facility] Address: [address] [place] [address] Performed By: #### 2 4323-8 ####[facility]CLIA [id number] [place] [address] Chloride [Moles/Vol] 107 mmol/L High 97-105 [facility] Comment on above: Order Comment: Speci men Type: BLOOD SPECIMENOrdering Facility: [facility] Address: [address] [place] [address] Performed By: #### 2 4323-8 ####[facility]CLIA [id number] [place] [address] CO2 [Moles/Vol] 26 mmol/L Normal 22-30 [facility] Comment on above: Order Comment: Speci men Type: BLOOD SPECIMENOrdering Facility: [facility] Address: [address] [place] [address] Performed By: #### 2 4323-8 ####[facility]IA [id number] [place] [address] Creatinine [Mass/Vol] 0.87 mg/dL Normal 0.58-0.96 [facility] Comment on above: Order Comment: Speci men Type: BLOOD SPECIMENOrdering Facility: [facility] Address: [address] [place] [address] Performed By: #### 2 4323-8 ####[facility]IA [id number] [place] [address] ESTIMATED GLOMERULAR FILTRATION RATE 74 mL/min/1.73m??? Normal >=60 [facility] Comment on above: Order Comment: Speci men Type: BLOOD SPECIMENOrdering Facility: [facility] Address: [address] [place] [address] Result Comment: Abigail mated Glomerular Filtration Rate [...] actual GFR. Performed By: #### 2 4323-8 ####[facility]IA [id number] [place] [address] Glucose [Mass/Vol] 97 mg/dL Normal 74-99 [facility] Comment on above: Order Comment: Speci men Type: BLOOD SPECIMENOrdering Facility: [facility] Address: [address] [address] Result Comment: The [place] [employer] Association (ADA) provides guidance for cutoff [...] Standards of Medical Care in Diabetes 2016, [place] [employer]. Diabetes Care. 2016.39(Suppl 1). Performed By: #### 2 4323-8 ####[facility]CLIA [id number] [place] [address] Potassium [Moles/Vol] 4.2 mmol/L Normal 3.7-5.1 [facility] Comment on above: Order Comment: Speci men Type: BLOOD SPECIMENOrdering Facility: [facility] Address: [address] [address] Performed By: #### 2 4323-8 ####[facility]CLIA [id number] [place] [address] Protein [Mass/Vol] 6.2 g/dL Low 6.3-8.0 [facility] Comment on above: Order Comment: Speci men Type: BLOOD SPECIMENOrdering Facility: [facility] Address: [address] [address] Performed By: #### 2 4323-8 ####[facility] [id number] [place] [address] Sodium [Moles/Vol] 140 mmol/L Normal 136-144 [facility] Comment on above: Order Comment: Speci men Type: BLOOD SPECIMENOrdering Facility: [facility] Address: [address] [address] Performed By: #### 2 4323-8 ####[facility]IA [id number] [place] [address] Urea nitrogen [Mass/Vol] 10 mg/dL Normal 7-21 [facility] Comment on above: Order Comment: Speci men Type: BLOOD SPECIMENOrdering Facility: [facility] Address: [address] [place] [address] [place] [address] Performed By: #### 2 4323-8 ####[facility]CLIA [id number] [place] [address] Covid-19 PCR ([facility])on 04-01 SARS-CoV-2 (COVID-19) RNA EVAN+probe Ql (Unsp spec) Not detected Normal NOT DETECTED The [facility] Comment on above: Result Comment: When diagnostic [...] for this test is supported by the [place] of Health and Human Service's declaration that [...] used). Performed By: #### C VDTBH #### [facility] [address] [place] [address] Barrington Gomez INFLUENZA A AND B AGon 04-28 INFLUBNEG SEE BELOW Normal [facility] Comment on above: Result Comment: Nega tive for Flu B protein antigen. Infection due to Flu B cannot be ruled out. Flu B antigen in the sample may be below the detection limit of the test. Performed By: #### I NFLUAB #### [facility] [address] [address] [address] Barrington Gomez INFLUENZA A AG Positive Abnormal NEGATIVE SEE COMMENT The [facility] Comment on above: Performed By: #### I NFLUAB #### [facility] [address] [address] [address] Barrington Gomez INFLUENZA B AG Negative Normal NEGATIVE SEE COMMENT The [facility] Comment on above: Performed By: #### I NFLUAB #### [facility] [address] [address] [address] Barrington Gomez INFLUPOSH SEE BELOW Normal The [facility] Comment on above: Result Comment: NOTE : Live attenuated influenzae vaccine viruses can cause a positive result for a rapid influenza diagnostic test if administered up to 7 days prior to rapid testing. Performed By: #### I NFLUAB #### [facility] [address] [address] [address] Barrington Gomez INTERNAL CONTROLS Within Normal Limits Normal Wi thin Normal Limits The [facility] Comment on above: Performed By: #### I NFLUAB #### [facility] [address] [address] [address] Barrington Billy 04-10-2022 DARIN Telephone (HEMASA) JESSICA FERRERA ([id number]) 1955 F Date Time Provider Department 04/10/22 CONSUELO FIELD During your visit today, we recorded the following information about you: Consuelo Tavares RN 04/10/2022 9:42 AM Signed Jessica yanes stating she is concerned about her iron [...] scheduled for 2 month follow up; 06/10/22. PIPPA/HM: Please review and sign iron RX pended [...] Fully Assessed Reason for Visit: Patient Question [5829] Cmt: appointment Visit Diagnosis:Iron deficiency anemia secondary to inadequate dietary iron intake [D50.8] Order(s):ferrous sulfate 325 mg (65 mg iron) tabletTake 1 tablet by mouth daily with breakfast.Disp: 30 tabletRfl: 6 Prescriptions as of 04/14/2022 - ferrous sulfate 325 mg (65 mg iron) tablet Take 1 tablet by mouth daily with breakfast. - sulfamethoxazole-trim ethoprim (BACTRIM,SEPTRA) 400-80 mg per tablet Take 1 [...] Status:Closed by PATRICIA EUGENE on 04/14/22 Normal [facility] CBC W Auto Differential pane l (Bld)on 04-09-2022 Basophils (Bld) [#/Vol] 0.07 10*3/uL Normal <0.11 [facility] Comment on above: Order Comment: Speci men Type: BLOOD SPECIMENOrdering Facility: [facility] Address: [address] [place] [address] Performed By: #### 5 7021-8 ####[facility]CLIA [id number] [place] [address] Basophils/100 WBC (Bld) 1.0 % Normal [facility] Comment on above: Order Comment: Speci men Type: BLOOD SPECIMENOrdering Facility: [facility] Address: [address] [place] [address] Performed By: #### 5 7021-8 ####[facility]CLIA [id number] [place] [address] Differential cell count method Nom (Bld) Auto Normal [facility] Comment on above: Order Comment: Speci men Type: BLOOD SPECIMENOrdering Facility: [facility] Address: [address] [place] [address] Performed By: #### 5 7021-8 ####[facility]CLIA [id number] [place] [address] Eosinophils (Bld) [#/Vol] 0.43 10*3/uL Normal <0.46 [facility] Comment on above: Order Comment: Speci men Type: BLOOD SPECIMENOrdering Facility: [facility] Address: [address] [place] [address] Performed By: #### 5 7021-8 ####[facility]CLIA [id number] [place] [address] Eosinophils/100 WBC (Bld) 6.3 % Normal [facility] Comment on above: Order Comment: Speci men Type: BLOOD SPECIMENOrdering Facility: [facility] Address: [address] [address] Performed By: #### 5 7021-8 ####[facility]CLIA [id number] [place] [address] Erythrocyte distribution width (RBC) [Ratio] 15.6 % High 11.5-15.0 [facility] Comment on above: Order Comment: Speci men Type: BLOOD SPECIMENOrdering Facility: [facility] Address: [address] [place] [address] Performed By: #### 5 7021-8 ####[facility]CLIA [id number] [place] [address] Hematocrit (Bld) [Volume fraction] 34.7 % Low 36.0-46.0 [facility] Comment on above: Order Comment: Speci men Type: BLOOD SPECIMENOrdering Facility: [facility] Address: [address] [place] [address] Performed By: #### 5 7021-8 ####[facility]IA [id number] [place] [address] Hemoglobin (Bld) [Mass/Vol] 10.5 g/dL Low 11.5-15.5 [facility] Comment on above: Order Comment: Speci men Type: BLOOD SPECIMENOrdering Facility: [facility] Address: [address] [address] Performed By: #### 5 7021-8 ####[facility]CLIA [id number] [place] [address] Immature granulocytes (Bld) [#/Vol] 10*3/uL Normal <0.10 [facility] Comment on above: Order Comment: Speci men Type: BLOOD SPECIMENOrdering Facility: [facility] Address: [address] [place] [address] Performed By: #### 5 7021-8 ####[facility]CLIA [id number] [place] [address] Immature granulocytes/100 WBC (Bld) 0.3 % Normal [facility] Comment on above: Order Comment: Speci men Type: BLOOD SPECIMENOrdering Facility: [facility] Address: [address] [place] [address] Performed By: #### 5 7021-8 ####[facility]CLIA [id number] [place] [address] Lymphocytes (Bld) [#/Vol] 3.11 10*3/uL Normal 1.00-4.00 [facility] Comment on above: Order Comment: Speci men Type: BLOOD SPECIMENOrdering Facility: [facility] Address: [address] [place] [address] Performed By: #### 5 7021-8 ####[facility]CLIA [id number] [place] [address] Lymphocytes/100 WBC (Bld) 45.3 % Normal [facility] Comment on above: Order Comment: Speci men Type: BLOOD SPECIMENOrdering Facility: [facility] Address: [address] [place] [address] Performed By: #### 5 7021-8 ####[facility]CLIA [id number] [place] [address] MCH (RBC) [Entitic mass] 23.9 pg Low 26.0-34.0 [facility] Comment on above: Order Comment: Speci men Type: BLOOD SPECIMENOrdering Facility: [facility] Address: [address] [place] [address] Performed By: #### 5 7021-8 ####[facility]CLIA [id number] [place] [address] MCHC (RBC) [Mass/Vol] 30.3 g/dL Low 30.5-36.0 [facility] Comment on above: Order Comment: Speci men Type: BLOOD SPECIMENOrdering Facility: [facility] Address: [address] [place] [address] Performed By: #### 5 7021-8 ####[facility]CLIA [id number] [place] [address] MCV (RBC) [Entitic vol] 79.0 fL Low 80.0-100.0 [facility] Comment on above: Order Comment: Speci men Type: BLOOD SPECIMENOrdering Facility: [facility] Address: [address] [place] [address] Performed By: #### 5 7021-8 ####[facility]CLIA [id number] [place] [address] Monocytes (Bld) [#/Vol] 0.96 10*3/uL High <0.87 [facility] Comment on above: Order Comment: Speci men Type: BLOOD SPECIMENOrdering Facility: [facility] Address: [address] [place] [address] Performed By: #### 5 7021-8 ####[facility]CLIA [id number] [place] [address] Monocytes/100 WBC (Bld) 14.0 % Normal [facility] Comment on above: Order Comment: Speci men Type: BLOOD SPECIMENOrdering Facility: [facility] Address: [address] [place] [address] Performed By: #### 5 7021-8 ####[facility]CLIA [id number] [place] [address] Neutrophils (Bld) [#/Vol] 2.28 10*3/uL Normal 1.45-7.50 [facility] Comment on above: Order Comment: Speci men Type: BLOOD SPECIMENOrdering Facility: [facility] Address: [address] [place] [address] Performed By: #### 5 7021-8 ####[facility]CLIA [id number] [place] [address] Neutrophils/100 WBC (Bld) 33.1 % Normal [facility] Comment on above: Order Comment: Speci men Type: BLOOD SPECIMENOrdering Facility: [facility] Address: [address] [place] [address] Performed By: #### 5 7021-8 ####[facility]CLIA [id number] [place] [address] Nucleated RBC (Bld) [#/Vol] 10*3/uL Normal <0.01 [facility] Comment on above: Order Comment: Speci men Type: BLOOD SPECIMENOrdering Facility: [facility] Address: [address] [place] [address] Performed By: #### 5 7021-8 ####[facility] LABIA [id number] [place] [address] Nucleated RBC/100 WBC (Bld) [Ratio] 0.0 /100 WBC Normal [facility] Comment on above: Order Comment: Speci men Type: BLOOD SPECIMENOrdering Facility: [facility] Address: [address] [place] [address] Performed By: #### 5 7021-8 ####[facility]CLIA [id number] [place] [address] Platelet mean volume (Bld) [Entitic vol] 10.2 fL Normal 9.0-12.7 [facility] Comment on above: Order Comment: Speci men Type: BLOOD SPECIMENOrdering Facility: [facility] Address: [address] [place] [address] Performed By: #### 5 7021-8 ####[facility]IA [id number] [place] [address] Platelets (Bld) [#/Vol] 284 10*3/uL Normal 150-400 [facility] Comment on above: Order Comment: Speci men Type: BLOOD SPECIMENOrdering Facility: [facility] Address: [address] Performed By: #### 5 7021-8 ####[facility] LABIA [id number] [place] [address] RBC (Bld) [#/Vol] 4.39 10*6/uL Normal 3.90-5.20 [facility] Comment on above: Order Comment: Speci men Type: BLOOD SPECIMENOrdering Facility: [facility] Address: [address] [address] Performed By: #### 5 7021-8 ####[facility]IA [id number] [place] [address] WBC (Bld) [#/Vol] 6.87 10*3/uL Normal 3.70-11.00 [facility] Comment on above: Order Comment: Speci men Type: BLOOD SPECIMENOrdering Facility: [facility] Address: [address] [address] Performed By: #### 5 7021-8 ####[facility] LABIA [id number] [place] [address] CNOVSPon 04-09-2022 CNOVS Visit (SP) Office (HEMASA) JESSICA FERRERA ([id number]) 1955 F Date Time Provider Department 04/09/22 9:15 AM JOSE BRYANT During your visit today, we recorded the following information about you: Temperature Pulse Respiration Blood pressure 97.7 degrees 67/minute 16/minute 143/83 Weight 106 kg Jose Bryant MD 04/14/2022 1:16 PM Signed NAME: Jessica Ferrera [facility] NO.: [id number] DATE OF SERVICE: April 09, 2022 (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 Will order at next visit RTC in 6 months - same day as labs - CBC, CMP, Anemia Continue antibiotics as ordered by PCP. PULMONARY nodule is stable - can reassess in 1 year. Will discuss in 6 months. [facility] Clinical Note Previous notes reviewed today [...] with more than 50% of the total tyyg-im-kgnc time of the visit in counseling / coordination of care. Yo Morse MD, MS Retail Manager In Trainingframe trimmer Hematology and Medical Oncology [address] [address], [place] [address] ========= Labs and Imaging Reviewed outside records provided prior to this visit and those in [facility]. as diagnosed by Dr. Morse [facility]. No evidence of a paraprotein. Negative hepatitis [...] in concerned (more content not included)... Normal [facility] Comprehensive metabolic 2000 panelon 04-09-2022 Albumin [Mass/Vol] 4.2 g/dL Normal 3.9-4.9 [facility] Comment on above: Order Comment: Speci men Type: BLOOD SPECIMENOrdering Facility: [facility] Address: [address] [place] [address] Performed By: #### 2 532-0, ####[facility] LABCLIA [id number] [place] [address] ALP [Catalytic activity/Vol] 74 U/L Normal 34-123 [facility] Comment on above: Order Comment: Speci men Type: BLOOD SPECIMENOrdering Facility: [facility] Address: [address] [address] Performed By: #### 2 532-0, ####[facility] LABIA [id number] [place] [address] ALT [Catalytic activity/Vol] 13 U/L Normal 7-38 [facility] Comment on above: Order Comment: Speci men Type: BLOOD SPECIMENOrdering Facility: [facility] Address: [address] [address] Performed By: #### 2 532-0, ####[facility] LABIA [id number] [place] [address] Anion gap [Moles/Vol] 7 mmol/L Low 9-18 [facility] Comment on above: Order Comment: Speci men Type: BLOOD SPECIMENOrdering Facility: [facility] Address: [address] [place] [address] Performed By: #### 2 532-0, ####[facility] LABCLIA [id number] [place] [address] AST [Catalytic activity/Vol] 16 U/L Normal 13-35 [facility] Comment on above: Order Comment: Speci men Type: BLOOD SPECIMENOrdering Facility: [facility] Address: [address] [place] [address] Performed By: #### 2 532-0, ####[facility] LABCLIA [id number] [place] [address] Bilirubin [Mass/Vol] 0.2 mg/dL Normal 0.2-1.3 [facility] Comment on above: Order Comment: Speci men Type: BLOOD SPECIMENOrdering Facility: [facility] Address: [address] [place] [address] Performed By: #### 2 532-0, ####[facility] LABCLIA [id number] [place] [address] Calcium [Mass/Vol] 9.4 mg/dL Normal 8.5-10.2 [facility] Comment on above: Order Comment: Speci men Type: BLOOD SPECIMENOrdering Facility: [facility] Address: [address] [place] [address] Performed By: #### 2 532-0, ####[facility] LABCLIA [id number] [place] [address] Chloride [Moles/Vol] 106 mmol/L High 97-105 [facility] Comment on above: Order Comment: Speci men Type: BLOOD SPECIMENOrdering Facility: [facility] Address: [address] [place] [address] Performed By: #### 2 532-0, ####[facility] LABCLIA [id number] [place] [address] CO2 [Moles/Vol] 26 mmol/L Normal 22-30 [facility] Comment on above: Order Comment: Speci men Type: BLOOD SPECIMENOrdering Facility: [facility] Address: [address] [address] Performed By: #### 2 532-0, 92965-4 ####[facility] LABCLIA [id number] [place] [address] Creatinine [Mass/Vol] 0.91 mg/dL Normal 0.58-0.96 [facility] Comment on above: Order Comment: Speci men Type: BLOOD SPECIMENOrdering Facility: [facility] Address: [address] [place] [address] Performed By: #### 2 532-0, 11683-4 ####[facility] LABCLIA [id number] [place] [address] ESTIMATED GLOMERULAR FILTRATION RATE 70 mL/min/1.73m??? Normal >=60 [facility] Comment on above: Order Comment: Speci men Type: BLOOD SPECIMENOrdering Facility: [facility] Address: [address] [place] [address] Result Comment: Abigail mated Glomerular Filtration Rate [...] actual GFR. Performed By: #### 2 532-0, 66209-8 ####[facility] LABCLIA [id number] [place] [address] Glucose [Mass/Vol] 93 mg/dL Normal 74-99 [facility] Comment on above: Order Comment: Speci men Type: BLOOD SPECIMENOrdering Facility: [facility] Address: [address] [place] [address] Result Comment: The [place] Diabetes Association (ADA) provides guidance for cutoff [...] Standards of Medical Care in Diabetes 2016, [place] [employer]. Diabetes Care. 2016.39(Suppl 1). Performed By: #### 2 532-0, ####[facility] LABCLIA [id number] [place] [address] Potassium [Moles/Vol] 4.1 mmol/L Normal 3.7-5.1 [facility] Comment on above: Order Comment: Speci men Type: BLOOD SPECIMENOrdering Facility: [facility] Address: [address] [place] [address] Performed By: #### 2 532-0, ####[facility] LABCLIA [id number] [place] [address] Protein [Mass/Vol] 6.5 g/dL Normal 6.3-8.0 [facility] Comment on above: Order Comment: Speci men Type: BLOOD SPECIMENOrdering Facility: [facility] Address: [address] [place] [address] Performed By: #### 2 532-0, ####[facility] LABCLIA [id number] [place] [address] Sodium [Moles/Vol] 139 mmol/L Normal 136-144 [facility] Comment on above: Order Comment: Speci men Type: BLOOD SPECIMENOrdering Facility: [facility] Address: [address] [address] Performed By: #### 2 532-0, ####[facility] LABCLIA [id number] [place] [address] Urea nitrogen [Mass/Vol] 9 mg/dL Normal 7-21 [facility] Comment on above: Order Comment: Speci men Type: BLOOD SPECIMENOrdering Facility: [facility] Address: [address] [place] [address] Performed By: #### 2 532-0, 11706-7 ####[facility] LABCLIA [id number] [place] [address] Ferritin SerPl-mCncon 2021 Ferritin [Mass/Vol] 8.2 ng/mL Low 14.7-205.1 [facility] Comment on above: Order Comment: Speci men Type: BLOOD SPECIMENOrdering Facility: [facility] Address: [address] [place] [address] Performed By: #### 2 132-9, 72964-3, 2275-4, 2283-8 ####[facility] LABCLIA [id number] [place] [address] [place] Folate SerPl-mCncon 04-09-20 22 Folate [Mass/Vol] 12.5 ng/mL Normal >4.7 [facility] Comment on above: Order Comment: Speci men Type: BLOOD SPECIMENOrdering Facility: [facility] Address: [address] [place] [address] Performed By: #### 2 132-9, 26267-2, 2275-4, 2283-8 ####[facility] LABCLIA [id number] [place] [address] [place] Iron and Iron binding capaci ty panelon 04-09-2022 Iron [Mass/Vol] 24 ug/dL Low 41-186 [facility] Comment on above: Order Comment: Speci men Type: BLOOD SPECIMENOrdering Facility: [facility] Address: [address] [place] [address] Performed By: #### 2 132-9, 12987-3, 2275-4, 2283-8 ####[facility] LABCLIA [id number] [place] [address] [place] Iron binding capacity [Mass/Vol] 470 ug/dL High 232-386 [facility] Comment on above: Order Comment: Speci men Type: BLOOD SPECIMENOrdering Facility: [facility] Address: [address] [place] [address] Performed By: #### 2 132-9, 49152-0, 2276-4, 2283-8 ####[facility] LABCLIA [id number] [place] [address] [place] Iron/TIBC [Molar ratio] 5.1 % Low 15.0-57.0 [facility] Comment on above: Order Comment: Speci men Type: BLOOD SPECIMENOrdering Facility: [facility] Address: [address] [place] [address] Performed By: #### 2 132-9, 82885-1, 2275-4, 8 ####[facility] LABCLIA [id number] [place] [address] [place] LDH SerPl-cCncon 04-09-2022 LDH [Catalytic activity/Vol] 211 U/L Normal 135-214 [facility] Comment on above: Order Comment: Speci men Type: BLOOD SPECIMENOrdering Facility: [facility] Address: [address] [place] [address] Performed By: #### 2 532-0, 94486-8 ####[facility] LABCLIA [id number] [place] [address] Vit B12 SerPl-mCncon 022 Cobalamin (Vitamin B12) [Mass/Vol] 295 pg/mL Normal 232-1245 [facility] Comment on above: Order Comment: Speci men Type: BLOOD SPECIMENOrdering Facility: [facility] Address: [address] [place] [address] Performed By: #### 2 132-9, 09693-6, 6-4, 2283-8 ####[facility] LABCLIA [id number] [place] [address] [place] [address] CHEST W IVCONon 2 CT CHEST W IVCON * * *Final Report* * * DATE OF EXAM: Apr 06 2022 9:21AM [facility] 0539 - CT CHEST W IVCON / [...] an outside institution; 01/03/2019 and 07/11/2018 from [facility] RESULT: Limitations: None. Lines, tubes, and devices: None. Lung parenchyma and pleura: 6-7 mm left upper lobe groundglass opacity (image 4:74), stable. 4 mm nodular opacity along the left major fissure (image 4:75) and may represent an intrapulmonary lymph node, stable. New 2 mm left lower lobe nodular opacity (4:139) most likely infectious/inflammato ry in etiology. New streaky scarring/discoid atelectasis is [...] left lower lobe nodular opacity, most likely infectious/inflammato ry in etiology. Consider follow-up to complete resolution. [...] any questions regarding this interpretation, please call [phone]. If you are unable to reach us at the number above, please feel free to contact [facility] at [phone]. [id number] N Normal [facility] Basic Metabolic Panelon 09-2 Anion gap [Moles/Vol] 6 mmol/L Low 9 - 17 mmol/L [employer] Calcium [Mass/Vol] 8.5 mg/dL Low 8.6 - 10. 4 mg/dL [facility] Chloride [Moles/Vol] 108 mmol/L High 98 - 10 7 mmol/L [facility] CO2 [Moles/Vol] 24 mmol/L 20 - 31 mmol/L [facility] Creatinine [Mass/Vol] 0.93 mg/dL High 0.5 - 0.9 mg/dL [facility] GFR >60 60 - PI NF mL/min [facility] GFR Non- >60 60 - PINF mL/min [facility] GFR/1.73 sq M.predicted MDRD (S/P/Bld) [Vol rate/Area] [facility] Comment on above: Average GFR for 60-6 9 years old: 85 mL/min/1.73sq m Chronic Kidney Disease: <60 mL/min/1.73sq m Kidney failure: <15 mL/min/1.73sq m eGFR calculated using average adult body mass. Additional eGFR calculator available at: http://www.Vator.TV.com/multiple_crcl_2011.htm Glucose [Mass/Vol] 145 mg/dL High 70 - 99 mg/dL [facility] Interpretation and review of laboratory results Abnormal [facility] Potassium [Moles/Vol] 4.9 mmol/L 3.7 - 5.3 mmol/L [facility] Sodium [Moles/Vol] 138 mmol/L 135 - 144 mmol/L [facility] Urea nitrogen (BldV) [Mass/Vol] 9 mg/dL 8 - 23 mg/dL [facility] Urea nitrogen/Creatinine (Bld) [Mass ratio] 10 9 - 20 [facility] Basic Metabolic Profon 02-17 (cont.) Normal [facility] Comment on above: Result Comment: Aver age GFR for 60-69 years old: 85 mL/min/1.73sq m Chronic Kidney Disease: <60 mL/min/1.73sq m Kidney failure: <15 mL/min/1.73sq m eGFR calculated using average adult body mass. Additional eGFR calculator available at: http://www.KKBOX/multiple_crcl_2012.htm Performed By: #### C DP, BMP #### [facility] [address] [place] [address] Fertilizer Loader: Jelani Liu MD Anion gap [Moles/Vol] 6 mmol/L Low 9-17 [facility] Comment on above: Performed By: #### C DP, BMP #### [facility] [address] [place] [address] Fertilizer Loader: Jelani Liu MD BUN/CRE Ratio 10 Normal - [facility] Comment on above: Performed By: #### C DP, BMP #### [facility] [address] [id number] Fertilizer Loader: Jelani Liu MD Calcium [Mass/Vol] 8.5 mg/dL Low 8.6-10.4 [facility] Comment on above: Performed By: #### C DP, BMP #### [facility] [address] [place] [address] Fertilizer Loader: Jelani Liu MD Chloride [Moles/Vol] 108 mmol/L High 98-107 [facility] Comment on above: Performed By: #### C DP, BMP #### [facility] [address] [place] [address] Fertilizer Loader: Jelani Liu MD CO2 [Moles/Vol] 24 mmol/L Normal 20-31 [facility] Comment on above: Performed By: #### C DP, BMP #### [facility] [facility] [place] [address] Fertilizer Loader: Jelani Liu MD Creatinine [Mass/Vol] 0.93 mg/dL High 0.50-0.90 [facility] Comment on above: Performed By: #### C DP, BMP #### [facility] [address] [facility] [place] [address] Fertilizer Loader: Jelani Liu MD GFR, Amer >60 Normal >60 [facility] Comment on above: Performed By: #### C DP, BMP #### [facility] [place] [address] Fertilizer Loader: Jelani Liu MD GFR,non Amer >60 Normal >60 [facility] Comment on above: Performed By: #### C DP, BMP #### [facility] [place] [address] Fertilizer Loader: Jelani Liu MD Glucose [Mass/Vol] 145 mg/dL High 70-99 [facility] Comment on above: Performed By: #### C DP, BMP #### [facility] [address] [place] [address] Fertilizer Loader: Jelani Liu MD Potassium [Moles/Vol] 4.9 mmol/L Normal 3.7-5.3 [facility] Comment on above: Performed By: #### C DP, BMP #### [facility] [address] [place] [address] Fertilizer Loader: Jelani Liu MD Sodium [Moles/Vol] 138 mmol/L Normal 135-144 [facility] Comment on above: Performed By: #### C DP, BMP #### [facility] [address] [place] [address] Fertilizer Loader: Jelani Liu MD Urea nitrogen [Mass/Vol] 9 mg/dL Normal 8-23 [facility] Comment on above: Performed By: #### C DP, BMP #### [facility] [place] [address] Fertilizer Loader: Jelani Liu MD CBC with Auto Differentialon 02-17-2022 Absolute Eos # [facility] Absolute Immature Granulocyte 0.05 [facility] Absolute Lymph # 1.47 [facility] Absolute Clarke # 0.63 [facility] Basophils (Bld) [#/Vol] 0.03 10*3/uL [facility] Basophils/100 WBC (Bld) 0 % 0 - 2 % [facility] Eosinophils/100 WBC (Bld) 0 % Low 1 - 4 % [facility] Hematocrit (Bld) [Volume fraction] 32.5 % Low 36.3 - 47.1 % [facility] Hemoglobin (Bld) [Mass/Vol] 9.8 g/dL Low 11.9 - 15.1 g/dL [facility] Immature granulocytes/100 WBC (Bld) 0 % 0 [facility] Interpretation and review of laboratory results Abnormal [facility] Lymphocytes/100 WBC (Bld) 11 % Low 24 - 43 % [facility] MCH (RBC) [Entitic mass] 25.3 pg 25. 2 - 33.5 pg [facility] MCHC (RBC) [Mass/Vol] 30.2 g/dL 28.4 - 34.8 g/dL [facility] MCV (RBC) [Entitic vol] 83.8 fL 82.6 - 102.9 fL [facility] Monocytes/100 WBC (Bld) 5 % 3 - 12 % [facility] NRBC Automated 0.0 0.0 per 100 WBC [facility] Platelet distribution width (Bld) [Ratio] 14.9 % High 11.8 - 14.4 % [facility] Platelet mean volume (Bld) [Entitic vol] 10.6 fL 8.1 - 13.5 fL [facility] Platelets (Bld) [#/Vol] 269 10*3/uL [facility] RBC (Bld) [#/Vol] 3.88 10*6/uL Low 3.95 - 5.1 1 m/uL [facility] RBC (Bld) [#/Vol] ANISOCYTOSIS PRESENT [facility] Segmented neutrophils/100 WBC (Bld) 84 % High 36 - 65 % [facility] Segs Absolute 11.41 High [facility] WBC (Bld) [#/Vol] 13.6 10*3/uL High [facility] CBC with Diffon 02-17-2022 Abs. Basophil 0.03 k/uL Normal 0.00-0.20 [facility] Comment on above: Performed By: #### C DP, BMP #### [facility] [address] [place] [address] Fertilizer Loader: Jelani Liu MD Abs. Eosinophil <0.03 Normal 0.00-0.44 [facility] Comment on above: Performed By: #### C DP, BMP #### [facility] [address] [place] [address] Fertilizer Loader: Jelani Liu MD Abs.Imm.Granulocyte 0.05 k/uL Normal 0.00-0.30 [facility] Comment on above: Performed By: #### C DP, BMP #### [facility] [address] [place] [address] Fertilizer Loader: Jelani Liu MD Abs.Neutrophil (Seg) 11.41 k/uL High 1.50-8.10 [facility] Comment on above: Performed By: #### C DP, BMP #### [facility] [address] [place] [address] Fertilizer Loader: Jelani Liu MD Basophils/100 WBC (Bld) 0 % Normal 0-2 [facility] Comment on above: Performed By: #### C DP, BMP #### [facility] [address] [place] [address] Fertilizer Loader: Jelani Liu MD Eosinophils/100 WBC (Bld) 0 % Low 1-4 [facility] Comment on above: Performed By: #### C DP, BMP #### [facility] [address] [place] [address] Fertilizer Loader: Jelani Liu MD Erythrocyte distribution width (RBC) [Ratio] 14.9 % High 11.8-14.4 [facility] Comment on above: Performed By: #### C DP, BMP #### [facility] [address] [place] [address]. [place] [address] Fertilizer Loader: Jelani Liu MD Hematocrit (Bld) [Volume fraction] 32.5 % Low 36.3-47.1 [facility] Comment on above: Performed By: #### C DP, BMP #### [facility] [address] [place] [address]. [place] [address] Fertilizer Loader: Jelani Liu MD Hemoglobin (Bld) [Mass/Vol] 9.8 g/dL Low 11.9-15.1 [facility] Comment on above: Performed By: #### C DP, BMP #### [facility] [place] [address] Fertilizer Loader: Jelani Liu MD Immature granulocytes/100 WBC (Bld) 0 % Normal 0 [facility] Comment on above: Performed By: #### C DP, BMP #### [facility] [address] [place] [address] Fertilizer Loader: Jelani Liu MD Lymphocytes (Bld) [#/Vol] 1.47 10*3/uL Normal 1.10-3.70 [facility] Comment on above: Performed By: #### C DP, BMP #### [facility] [address] [place] [address] Fertilizer Loader: Jelani Liu MD Lymphocytes/100 WBC (Bld) 11 % Low 24-43 [facility] Comment on above: Performed By: #### C DP, BMP #### [facility] [address] [place] [address] Fertilizer Loader: Jelani Liu MD MCH (RBC) [Entitic mass] 25.3 pg Normal 25.2-33.5 [facility] Comment on above: Performed By: #### C DP, BMP #### [facility] [address] [place] [address] Fertilizer Loader: Jelani Liu MD MCHC (RBC) [Mass/Vol] 30.2 g/dL Normal 28.4-34.8 [facility] Comment on above: Performed By: #### C DP, BMP #### [facility] [address] [place] [address] Fertilizer Loader: Jelani Liu MD MCV (RBC) [Entitic vol] 83.8 fL Normal 82.6-102.9 [facility] Comment on above: Performed By: #### C DP, BMP #### [facility] [address] [place] [address] Fertilizer Loader: Jelani Liu MD Monocytes (Bld) [#/Vol] 0.63 10*3/uL Normal 0.10-1.20 [facility] Comment on above: Performed By: #### C DP, BMP #### [facility] [address] [place] [address] Fertilizer Loader: Jelani Liu MD Monocytes/100 WBC (Bld) 5 % Normal 3-12 [facility] Comment on above: Performed By: #### C DP, BMP #### [facility] [address] [facility] [place] [address] Fertilizer Loader: Jelani Liu MD Neutrophil (Seg) 84 % High 36-65 [facility] Comment on above: Performed By: #### C DP, BMP #### [facility] [place] [address] Fertilizer Loader: Jelani Liu MD NRBC Automated 0.0 per 100 WBC Normal 0.0 [facility] Comment on above: Performed By: #### C DP, BMP #### [facility] [address] [facility] [place] [address] Fertilizer Loader: Jelani Liu MD Platelet mean volume (Bld) [Entitic vol] 10.6 fL Normal 8.1-13.5 [facility] Comment on above: Performed By: #### C DP, BMP #### [facility] [address] [place] [address] Fertilizer Loader: Jelani Liu MD Platelets (Bld) [#/Vol] 269 10*3/uL Normal 138-453 [facility] Comment on above: Performed By: #### C DP, BMP #### [facility] [address] [place] [address] Fertilizer Loader: Jelani Liu MD RBC (Bld) [#/Vol] 3.88 10*6/uL Low 3.95-5.11 [facility] Comment on above: Performed By: #### C DP, BMP #### [facility] [address] [place] [address] Fertilizer Loader: Jelani Liu MD RBC morphology finding Nom (Bld) ANISOCYTOSIS PRESENT Normal [facility] Comment on above: Performed By: #### C DP, BMP #### [facility] [address] [place] [address] Fertilizer Loader: Jelani Liu MD WBC (Bld) [#/Vol] 13.6 10*3/uL High 3.5-11.3 [facility] Comment on above: Performed By: #### C DP, BMP #### [facility] [address] [place] [address] Fertilizer Loader: Jelani Liu MD FLUORO FOR SURGICAL PROCEDUR ESon 02-16-2022 FLUORO FOR SURGICAL PROCEDURES Radiology exam is complete. No Radiologist dictation. Please follow up with ordering provider. Final result Normal [facility] Radiology exam is complete. No Radiologist dictation. Please follow up with ordering provider. PN RIS CONSOLIDATED Cult,Urineon 01-28-2022 Cult,Urine Specimen Description .CLEAN CATCH URINE Culture NO SIGNIFICANT GROWTH Report Status FINAL 01/27/2022 Normal [facility] Comment on above: Performed By: #### U RC ####[facility] [id number] [place] [address] lab Director: JOAQUÍN [facility] [id number] [place], [place] [id number] lab Director: Terrance Luevano MD Culture, Urineon 01-27-2022 Bacteria identified Cx Nom (U) NO SIGNIFICANT GROWTH [facility] [facility] [employer] Specimen Description .CLEAN CATCH URINE [facility] APTTon 01-26-2022 aPTT Coag (Bld) [Time] 25.6 s Normal 23.9-33.8 [facility] Comment on above: Result Comment: IV Heparin Therapy Range: 62.0-94.0 Performed By: #### P T, CDP, PTT, BMP ####[facility] [id number] [place] [address] lab Director: Jelani Liu MD aPTT Coag (Bld) [Time] 25.6 s [facility] UUCUN [facility] Comment on above: IV Heparin Therapy Range: 62.0-94.0 Basic Metabolic Panelon 12-30 Anion gap [Moles/Vol] 10 mmol/L 9 - 17 mmol/L [facility] [employer] Calcium [Mass/Vol] 8.8 mg/dL 8.6 - 10. 4 mg/dL [facility] Chloride [Moles/Vol] 104 mmol/L 98 - 10 7 mmol/L [facility] [employer] CO2 [Moles/Vol] 24 mmol/L 20 - 31 mmol/L [facility] [employer] Creatinine [Mass/Vol] 1.01 mg/dL High 0.5 - 0.9 mg/dL [facility] [employer] GFR >60 60 - PI NF mL/min [facility] [employer] GFR Non- 55 mL/min Low 60 - PINF mL/min [facility] [employer] GFR/1.73 sq M.predicted MDRD (S/P/Bld) [Vol rate/Area] [facility] Comment on above: Average GFR for 60-6 9 years old: 85 mL/min/1.73sq m Chronic Kidney Disease: <60 mL/min/1.73sq m Kidney failure: <15 mL/min/1.73sq m eGFR calculated using average adult body mass. Additional eGFR calculator available at: http://www.KKBOX/multiple_crcl_2012.htm Glucose [Mass/Vol] 101 mg/dL High 70 - 99 mg/dL [facility] Interpretation and review of laboratory results Abnormal [facility] Potassium [Moles/Vol] 3.9 mmol/L 3.7 - 5.3 mmol/L [facility] Sodium [Moles/Vol] 138 mmol/L 135 - 144 mmol/L [facility] Urea nitrogen (BldV) [Mass/Vol] 13 mg/dL 8 - 23 mg/dL [facility] Urea nitrogen/Creatinine (Bld) [Mass ratio] 13 9 - 20 [facility] Basic Metabolic Profon 01-26 (cont.) Normal [facility] Comment on above: Result Comment: Aver age GFR for 60-69 years old: 85 mL/min/1.73sq m Chronic Kidney Disease: <60 mL/min/1.73sq m Kidney failure: <15 mL/min/1.73sq m eGFR calculated using average adult body mass. Additional eGFR calculator available at: http://www.KKBOX/multiple_crcl_2012.htm Performed By: #### P T, CDP, PTT, BMP ####[facility] [id number] [place] [address] lab Director: Jelani Liu MD Anion gap [Moles/Vol] 10 mmol/L Normal 9-17 [facility] Comment on above: Performed By: #### P T, CDP, PTT, BMP ####[facility] [address] [facility].[place] [id number] lab Director: Jelani Liu MD BUN/CRE Ratio 13 Normal -20 [facility] Comment on above: Performed By: #### P T, CDP, PTT, BMP ####[facility] [address] [place] [address] Lab Director: Jelani Liu MD Calcium [Mass/Vol] 8.8 mg/dL Normal 8.6-10.4 [facility] Comment on above: Performed By: #### P T, CDP, PTT, BMP ####[facility] [address] [place] [address] Lab Director: Jelani Liu MD Chloride [Moles/Vol] 104 mmol/L Normal 98-107 [facility] Comment on above: Performed By: #### P T, CDP, PTT, BMP ####[facility] [address] [facility] [place] [address] Lab Director: Jelani Liu MD CO2 [Moles/Vol] 24 mmol/L Normal 20-31 [facility] Comment on above: Performed By: #### P T, CDP, PTT, BMP ####[facility] [address] [facility] [place] [address] Lab Director: Jelani Liu MD Creatinine [Mass/Vol] 1.01 mg/dL High 0.50-0.90 [facility] Comment on above: Performed By: #### P T, CDP, PTT, BMP ####[facility] [id number] [place], [place] [address] [place] [address] Lab Director: Jelani Liu MD GFR, Amer >60 Normal >60 [facility] Comment on above: Performed By: #### P T, CDP, PTT, BMP ####[facility] [address] [facility] [place] [address] Lab Director: Jelani Liu MD GFR,non Amer 55 mL/min Low >60 [facility] Comment on above: Performed By: #### P T, CDP, PTT, BMP ####[facility] [address] [place] [address] Lab Director: Jelani Liu MD Glucose [Mass/Vol] 101 mg/dL High 70-99 [facility] Comment on above: Performed By: #### P T, CDP, PTT, BMP ####[facility] [address], [place] [phone] Director: Jelani Liu MD Potassium [Moles/Vol] 3.9 mmol/L Normal 3.7-5.3 [facility] Comment on above: Performed By: #### P T, CDP, PTT, BMP ####[facility] [address] [place] [address] Lab Director: Jelani Liu MD Sodium [Moles/Vol] 138 mmol/L Normal 135-144 [facility] Comment on above: Performed By: #### P T, CDP, PTT, BMP ####[facility] [address] [facility] [place] [address] Lab Director: Jelani Liu MD Urea nitrogen [Mass/Vol] 13 mg/dL Normal 8-23 [facility] Comment on above: Performed By: #### P T, CDP, PTT, BMP ####[facility] [address] [facility], [place] [phone] Director: Jelani Liu MD CBC with Auto Differentialon 01-26-2022 Absolute Eos # 0.00 [facility] [employer] Absolute Immature Granulocyte 0.00 [facility] Absolute Lymph # 5.08 High [facility] Comment on above: R/O Chronic Lymphopr oliferative Disorder, recommend peripheral blood Flow Cytometry, if clinically indicated. Absolute Clarke # 1.13 [facility] [employer] Basophils (Bld) [#/Vol] 0.09 10*3/uL [facility] Basophils/100 WBC (Bld) 1 % 0 - 2 % B ON [facility] Eosinophils/100 WBC (Bld) 0 % Low 1 - 4 % [facility] Hematocrit (Bld) [Volume fraction] 38.1 % 36.3 - 47.1 % [facility] Hemoglobin (Bld) [Mass/Vol] 11.4 g/dL Low 11.9 - 15.1 g/dL [facility] Immature granulocytes/100 WBC (Bld) 0 % 0 [facility] Interpretation and review of laboratory results Abnormal [facility] Lymphocytes/100 WBC (Bld) 54 % High 24 - 43 % [facility] MCH (RBC) [Entitic mass] 25.7 pg 25. 2 - 33.5 pg [facility] MCHC (RBC) [Mass/Vol] 29.9 g/dL 28.4 - 34.8 g/dL [facility] MCV (RBC) [Entitic vol] 86.0 fL 82.6 - 102.9 fL [facility] Monocytes/100 WBC (Bld) 12 % 3 - 12 % B ON [facility] NRBC Automated 0.0 0.0 per 100 WBC [facility] Platelet distribution width (Bld) [Ratio] 16.7 % High 11.8 - 14.4 % [facility] Platelet mean volume (Bld) [Entitic vol] 9.6 fL 8.1 - 13.5 fL [facility] Platelets (Bld) [#/Vol] 277 10*3/uL [facility] RBC (Bld) [#/Vol] 4.43 10*6/uL 3.95 - 5.1 1 m/uL [facility] Segmented neutrophils/100 WBC (Bld) 33 % Low 36 - 65 % [facility] Segs Absolute 3.10 [facility] WBC (Bld) [#/Vol] 9.4 10*3/uL [facility] CBC with Diffon 01-26-2022 Abs. Basophil 0.09 k/uL Normal 0.00-0.20 [facility] Comment on above: Performed By: #### P T, CDP, PTT, BMP ####[facility] [address] [place] [address] Lab Director: Jelani Liu MD Abs.Imm.Granulocyte 0.00 k/uL Normal 0.00-0.30 [facility] Comment on above: Performed By: #### P T, CDP, PTT, BMP ####[facility] [address] [place] [address] Lab Director: Jelani Liu MD Abs.Neutrophil (Seg) 3.10 k/uL Normal 1.50-8.10 [facility] Comment on above: Performed By: #### P T, CDP, PTT, BMP ####[facility] [address] [place], [place] [address] [place] [address] Lab Director: Jelani Liu MD Basophils/100 WBC (Bld) 1 % Normal 0-2 [facility] Comment on above: Performed By: #### P T, CDP, PTT, BMP ####[facility] [id number] [place] [address].[place] [address] Lab Director: Jelani Liu MD Eosinophils (Bld) [#/Vol] 0.00 10*3/uL Normal 0.00-0.44 [facility] Comment on above: Performed By: #### P T, CDP, PTT, BMP ####[facility] [address] [place] [address] Lab Director: Jelani Liu MD Eosinophils/100 WBC (Bld) 0 % Low 1-4 [facility] Comment on above: Performed By: #### P T, CDP, PTT, BMP ####[facility] [address] [place], [place] [address] [place] [address] Lab Director: Jelani Liu MD Immature granulocytes/100 WBC (Bld) 0 % Normal 0 [facility] Comment on above: Performed By: #### P T, CDP, PTT, BMP ####[facility] [address] [facility], [place] [address])[phone] Director: Jelani Liu MD Lymphocytes (Bld) [#/Vol] 5.08 10*3/uL High 1.10-3.70 [facility] Comment on above: Result Comment: R/O Chronic Lymphoproliferative Disorder, recommend peripheral blood Flow Cytometry, if clinically indicated. Performed By: #### P T, CDP, PTT, BMP ####[facility] [address] [place] [address].[place], [place] [address])[phone] Director: Jelani Liu MD Lymphocytes/100 WBC (Bld) 54 % High 24-43 [facility] Comment on above: Performed By: #### P T, CDP, PTT, BMP ####[facility] [address] [place] [address].[place], [place] [address])[phone] Director: Jelani Liu MD Monocytes (Bld) [#/Vol] 1.13 10*3/uL Normal 0.10-1.20 [facility] Comment on above: Performed By: #### P T, CDP, PTT, BMP ####[facility] [address] [place] [address].[place] [address]([facility])[phone] Director: Jelani Liu MD Monocytes/100 WBC (Bld) 12 % Normal 3-12 [facility] Comment on above: Performed By: #### P T, CDP, PTT, BMP ####[facility] [address] [place] [address].[place] [address]([facility])[phone] Director: Jelani Liu MD Neutrophil (Seg) 33 % Low 36-65 [facility] Comment on above: Performed By: #### P T, CDP, PTT, BMP ####[facility] [address] [place] [address] Lab Director: Jelani Liu MD Erythrocyte distribution width (RBC) [Ratio] 16.7 % High 11.8-14.4 [facility] Comment on above: Performed By: #### P T, CDP, PTT, BMP ####[facility] [address] [place] [address] Lab Director: Jelani Liu MD Hematocrit (Bld) [Volume fraction] 38.1 % Normal 36.3-47.1 [facility] Comment on above: Performed By: #### P T, CDP, PTT, BMP ####[facility] [address] [place] [address] Lab Director: Jelani Liu MD Hemoglobin (Bld) [Mass/Vol] 11.4 g/dL Low 11.9-15.1 [facility] Comment on above: Performed By: #### P T, CDP, PTT, BMP ####[facility] [address] [place] [address] Lab Director: Jelani Liu MD MCH (RBC) [Entitic mass] 25.7 pg Normal 25.2-33.5 [facility] Comment on above: Performed By: #### P T, CDP, PTT, BMP ####[facility] [address] [place] [address] Lab Director: Jelani Liu MD MCHC (RBC) [Mass/Vol] 29.9 g/dL Normal 28.4-34.8 [facility] Comment on above: Performed By: #### P T, CDP, PTT, BMP ####[facility] [address] [place] [address] Lab Director: Jelani Liu MD MCV (RBC) [Entitic vol] 86.0 fL Normal 82.6-102.9 [facility] Comment on above: Performed By: #### P T, CDP, PTT, BMP ####[facility] [address] [facility] [place] [address] Lab Director: Jelani Liu MD NRBC Automated 0.0 per 100 WBC Normal 0.0 [facility] Comment on above: Performed By: #### P T, CDP, PTT, BMP ####[facility] [address] [facility] [place] [address] Lab Director: Jelani Liu MD Platelet mean volume (Bld) [Entitic vol] 9.6 fL Normal 8.1-13.5 [facility] Comment on above: Performed By: #### P T, CDP, PTT, BMP ####[facility] [address] [place] [address].[place] [address] Lab Director: Jelani Liu MD Platelets (Bld) [#/Vol] 277 10*3/uL Normal 138-453 [facility] Comment on above: Performed By: #### P T, CDP, PTT, BMP ####[facility] [address] [place] [address].[place] [address] Lab Director: Jelani Liu MD RBC (Bld) [#/Vol] 4.43 10*6/uL Normal 3.95-5.11 [facility] Comment on above: Performed By: #### P T, CDP, PTT, BMP ####[facility] [address] [place] [address].[place], [place] [phone] Director: Jelani Liu MD WBC (Bld) [#/Vol] 9.4 10*3/uL Normal 3.5-11.3 [facility] Comment on above: Performed By: #### P T, CDP, PTT, BMP ####[facility] [address] [place], [place] [address]e.[place] [address] Lab Director: Jelani Liu MD MRSA DNA Probe, Nasalon - MRSA, DNA, Nasal Negative NEGATIVE [facility] Comment on above: NEGATIVE: MRSA DNA n ot detected by nucleic acid amplification. Results should be used as an adjunct to nosocomial control efforts to identify patients needing enhanced precautions. The test is not intended to identify patients with staphylococcal infections. Results should not be used to guide or monitor treatment for MRSA infections. Specimen Description .NASAL SWAB [facility] MRSA, DNA, Nasalon MRSA, DNA, Nasal Negative Normal NEG [facility] Comment on above: Result Comment: NEGA TIVE: MRSA DNA not detected by nucleic acid amplification. Results should be used as an adjunct to nosocomial control efforts to identify patients needing enhanced precautions. The test is not intended to identify patients with staphylococcal infections. Results should not be used to guide or monitor treatment for MRSA infections. Performed By: #### M RSANO ####[facility] [address] [place] [address] Lab Director: Kristina Membreno [address] [address] lab Director: Terrance Luevano MD Specimen Description .NASAL SWAB Normal [facility] Comment on above: Performed By: #### M RSANO ####[facility] [address] [place] [address] Lab Director: rKistina Membreno [address] [address] Lab Director: Terrance Luevano MD No Panel Informationon 01-26 [facility] PTon 01-26-2022 INR Coag (PPP) [Relative time] 0.9 {INR} Normal [facility] Comment on above: Result Comment: Non-therapeutic Range: INR = 0.9-1.2 Therapeutic Range: Moderate Anticoagulant Intensity: INR = 2.0-3.0 High Anticoagulant Intensity: INR = 2.5-3.5 Performed By: #### P T, CDP, PTT, BMP #### [facility] [address] [place] [address] Fertilizer Loader: Jelani Liu MD PT Coag (PPP) [Time] 12.1 s Normal 11.5-14.2 [facility] Comment on above: Performed By: #### P T, CDP, PTT, BMP #### [facility] [address] [place] [address] Fertilizer Loader: Jelani Liu MD Protime-INRon 01-26-2022 INR Coag (Bld) [Relative time] 0.9 {INR} [facility] Comment on above: Non-therapeutic Range: INR = 0.9-1.2 Therapeutic Range: Moderate Anticoagulant Intensity: INR = 2.0-3.0 High Anticoagulant Intensity: INR = 2.5-3.5 PT Coag (PPP) [Time] 12.1 s [facility] Urinalysison 01-26-2022 Bilirubin Urine Negative NEGATIVE [facility] Color, UA Yellow Yellow [facility] Glucose, Ur Negative NEGATIVE [facility] Interpretation and review of laboratory results Abnormal [facility] Ketones Ql (U) Negative NEGATIVE [facility] Leukocyte esterase Test strip Ql (U) Negative NEGATIVE [facility] Nitrite, Urine Negative NEGATIVE [facility] pH, UA 5.5 5 - 8 [facility] Protein, UA Negative NEGATIVE [facility] Specific [place], UA 1.037 High 1.005 - 1.03 [facility] Turbidity UA Clear Clear [facility] Urinalysis Comments Microscopic exam not performed based on chemical results unless requested in original order. [facility] Urine Hgb Negative NEGATIVE [facility] Urobilinogen, Urine Normal Normal [facility] Urinalysis, Routineon 2021 Bilirubin, SemiQt,Ur Negative Normal NEG [facility] Comment on above: Performed By: #### U A #### [facility] [address] [place] [address] Fertilizer Loader: Jelani Liu MD Blood, Urine Negative Normal NEG [facility] Comment on above: Performed By: #### U A #### [facility] [address] [place] [address] Fertilizer Loader: Jelani Liu MD Clarity (U) Clear Normal CLEAR [facility] Comment on above: Performed By: #### U A #### [facility] [address] [place] [address] Fertilizer Loader: Jelani Liu MD Color (U) Yellow Normal YEL [facility] Comment on above: Performed By: #### U A #### [facility] [address] [place] [address] Fertilizer Loader: Jelani Liu MD Comment Microscopic exam not performed based on chemical results unless requested in Normal [facility] Comment on above: Result Comment: orig inal order. Performed By: #### U A #### [facility] [address] [place] [address] Fertilizer Loader: Jelani Liu MD Glucose Ql (U) Negative Normal NEG [facility] Comment on above: Performed By: #### U A #### [facility] [address] [place] [address] Fertilizer Loader: Jelani Liu MD Ketones Ql (U) Negative Normal NEG [facility] Comment on above: Performed By: #### U A #### [facility] [address] [place] [address] Fertilizer Loader: Jelani Liu MD Leukocyte esterase Test strip Ql (U) Negative Normal NEG [facility] Comment on above: Performed By: #### U A #### [facility] [address] [facility] [place] [address] Fertilizer Loader: Jelani Liu MD Nitrite,Ur Negative Normal NEG [facility] Comment on above: Performed By: #### U A #### [facility] [address] [place] [address] Fertilizer Loader: Jelani Liu MD PH,Ur 5.5 Normal 5.0-8.0 [facility] Comment on above: Performed By: #### U A #### [facility] [place] [address] Fertilizer Loader: Jelani Liu MD Protein Ql (U) Negative Normal NEG [facility] Comment on above: Performed By: #### U A #### [facility] [address] [place] [address] Fertilizer Loader: Jelani Liu MD Spec. [place],Ur 1.037 High 1.005-1.030 [facility] Comment on above: Performed By: #### U A #### [facility] [place] [address] Fertilizer Loader: Jelani Liu MD Urobilinogen,Ur Normal Normal NORM [facility] Comment on above: Performed By: #### U A #### [facility] [place] [address] Fertilizer Loader: Jelani Liu MD Activated partial thrombopla stin time (aPTT) in platelet poor plasma by coagulation aOrdered By: Dalia Villasenor on 12-29-2021 aPTT Coag (PPP) [Time] 31.0 s 25.1-36.5 [facility] Albumin [Mass/volume] in Ser um or PlasmaOrdered By: Dalia Villasenor on 12-29-2021 Albumin [Mass/Vol] 4.0 g/dL 3.2-5.5 [facility] Albumin [Mass/Vol] 3.5 g/dL 2.9-4.4 [facility] Albumin/Protein.total in 24 hour Urine by ElectrophoresisOrdered By: Dalia Villasenor on 12-29-2021 Albumin Elph (24H U) [Mass fraction] 27.5 % . [facility] Automated erythrocytes count in urine sediment (number/area)Ordered By: Dalia Villasenor on 12-29-2021 RBC Auto (Urine sed) [#/Area] 3-4 [HPF] 0-4 [facility] Automated leukocytes count i n urine sediment (number/area)Ordered By: Dalia Villasenor on 12-29-2021 WBC Auto (Urine sed) [#/Area] None seen [HPF] 0-4 [facility] Basophils Auto (Bld) [#/Vol] Ordered By: Dalia Villasenor on 12-29-2021 Basophils (Bld) [#/Vol] 0.1 10*3/uL 0.0-0.2 [facility] Basophils/100 WBC Auto (Bld) Ordered By: Dalia Villasenor on 12-29-2021 Basophils/100 WBC (Bld) 1.4 % . [facility] Bilirubin Auto test strip Ql (U)Ordered By: Dalia Villasenor on 12-29-2021 Bilirubin Ql (U) Negative Negative [facility] Blood hemoglobin measurement (mass/volume)Ordered By: Dalia Villasenor on 12-29-2021 Hemoglobin (Bld) [Mass/Vol] 12.2 g/dL 11.8-15.4 [facility] Blood leukocytes automated c ount (number/volume)Ordered By: Dalia Villasenor on 12-29-2021 WBC (Bld) [#/Vol] 6.9 10*3/uL 4.5-11.0 [facility] Borrelia burgdorferi Ab [Int erpretation] in SerumOrdered By: Dalia Villasenor on 12-29-2021 B. burgdorferi Ab (S) [Interp] N/A [facility] Borrelia burgdorferi IgG Ab [Presence] in Serum or Plasma by ImmunoassayOrdered By: Dalia Villasenor on 12-29-2021 B. burgdorferi IgG IA Ql N/A [facility] Borrelia burgdorferi IgG+IgM Ab [Presence] in Serum by ImmunoassayOrdered By: Dalia Villasenor on 12-29-2021 B. burgdorferi IgG+IgM IA Ql (S) Negative Negative [facility] Comment on above: Lyme Antibody Negati ve No laboratory evidence of infection with B. burgdorferi (Lyme disease). Negative results may occur in patients recently infected (less than or equal to 14 days) with B. burgdorferi. If recent infection is suspected, repeat testing on a new sample collected in 7 to 14 days is recommended. Performed at: [facility] [address] [id number] Fertilizer Loader: Castro Lugo PhD, Phone: [phone] Borrelia burgdorferi IgM Ab [Presence] in Serum or Plasma by ImmunoassayOrdered By: Dalia Villasenor on 12-29-2021 B. burgdorferi IgM IA Ql N/A [facility] C reactive protein [Mass/vol ume] in Serum or PlasmaOrdered By: Dalia Villasenor on 12-29-2021 CRP [Mass/Vol] 1.3 mg/dL 0.0-1.[address] [facility] [address] biopsyOrdered By: Dalia Villasenor on 12-29-2021 CT biopsy 4.5 U/L 3.3-10.3 [facility] Comment on above: Performed at: [facility] [address] [id number] Fertilizer Loader: Castro Lugo PhD, Phone: [phone] Creatine kinase [Enzymatic a ctivity/volume] in Serum or PlasmaOrdered By: Dalia Villasenor on 12-29-2021 CK [Catalytic activity/Vol] 77 U/L 22-269 [facility] Creatinine and Glomerular fi ltration rate.predicted panel (S/P/Bld)Ordered By: Dalia Villasenor on 12-29-2021 Creatinine [Mass/Vol] 1.14 mg/dL 0.44-1.03 [facility] Dilute Samuel's viper venom timeOrdered By: Dalia Villasenor on 12-29-2021 dRVVT Coag (PPP) [Time] 34.3 s 0.0-47.0 [facility] Eosinophils Auto (Bld) [#/Vo l]Ordered By: Dalia Villasenor on 12-29-2021 Eosinophils (Bld) [#/Vol] 0.1 10*3/uL 0.0-0.45 [facility] Eosinophils/100 WBC Auto (Bl d)Ordered By: Dalia Villasenor on 12-29-2021 Eosinophils/100 WBC (Bld) 1.3 % . [facility] Erythrocyte distribution wid th Auto (RBC) [Ratio]Ordered By: Dalia Villasenor on 12-29-2021 Erythrocyte distribution width (RBC) [Ratio] 17.9 % 11.9-15.3 [facility] Erythrocyte sedimentation ra te by Photometric methodOrdered By: Dalia Villasenor on 12-29-2021 ESR Photometric method (Bld) [Velocity] 17 mm/hr 0-29 [facility] Estimated glomerular filtrat ion rate (GFR) non- AmericanOrdered By: Dalia Villasenor on 12-29-2021 GFR/1.73 sq M.predicted among non-blacks MDRD (S/P/Bld) [Vol rate/Area] 48 mL/Min [facility] Gamma globulin/Protein.total in 24 hour Urine by ElectrophoresisOrdered By: Dalia Villasenor on 12-29-2021 Gamma globulin Elph (24H U) [Mass fraction] 23.1 % . [facility] Globulin Calc (S) [Mass/Vol] Ordered By: Dalia Villasenor on 12-29-2021 Globulin (S) [Mass/Vol] 2.4 g/dL [facility] Hematocrit Auto (Bld) [Volum e fraction]Ordered By: Dalia Villasenor on 12-29-2021 Hematocrit (Bld) [Volume fraction] 39.0 % 34.0-46.4 [facility] Hepatitis B virus surface Ag [Presence] in Serum or Plasma by ImmunoassayOrdered By: Dalia Villasenor on 12-29-2021 HBV surface Ag IA Ql Negative Negative [facility] IgA [Mass/volume] in Serum o r PlasmaOrdered By: Dalia Villasenor on 12-29-2021 IgA [Mass/Vol] 137 mg/dL 87-352 [facility] IgG [Mass/volume] in Serum o r PlasmaOrdered By: Dalia Villasenor on 12-29-2021 IgG [Mass/Vol] 524 mg/dL [phone] [facility] IgM [Mass/volume] in Serum o r PlasmaOrdered By: Dalia Villasenor on 12-29-2021 IgM [Mass/Vol] 373 mg/dL 26-217 [facility] Immunofixation for UrineOrde red By: Dalia Villasenor on 12-29-2021 Interpretation Immunofixation (U) [Interp] See comment . [facility] Comment on above: No monoclonality det ected. Performed at: [facility] [id number] Fertilizer Loader: Castro Lugo PhD, Phone: [phone] Ketones Auto test strip (U) [Mass/Vol]Ordered By: Dalia Villasenor on 12-29-2021 Ketones (U) [Mass/Vol] Negative Negative [facility] - Chemistry and C hemistry - challengeOrdered By: Dalia Villasenor on 12-29-2021 Cobalamin (Vitamin B12) [Mass/Vol] 193 pg/mL 180-914 [facility] - CoagulationOrde red By: Dalia Villasenor on 12-29-2021 PT Coag (PPP) [Time] 10.4 s 9.0-12.9 [facility] - Hematology and Cell countsOrdered By: Dalia Villasenor on 12-29-2021 Nucleated RBC/100 WBC (Bld) [Ratio] 0.0 % 0-0.5 [facility] - UrinalysisOrder ed By: Dalia Villasenor on 12-29-2021 Hyaline casts LM Ql (Urine sed) 0-8 [LPF] 0-8 [facility] Lupus anticoagulant [Interpr etation] in Platelet poor plasmaOrdered By: Dalia Villasenor on 12-29-2021 Lupus anticoagulant (PPP) [Interp] Comment: . [facility] Comment on above: No lupus anticoagula nt was detected. Performed at: - [facility] [address] [id number] Fertilizer Loader: Bharath Linares MD, Phone: [phone] Lymphocytes Auto (Bld) [#/Vo l]Ordered By: Dalia Villasenor on 12-29-2021 Lymphocytes (Bld) [#/Vol] 3.1 10*3/uL 1.00-4.8 [facility] Lymphocytes/100 WBC Auto (Bl d)Ordered By: Dalia Villasenor on 12-29-2021 Lymphocytes/100 WBC (Bld) 44.5 % . [facility] MCH Auto (RBC) [Entitic mass ]Ordered By: Dalia Villasenor on 12-29-2021 MCH (RBC) [Entitic mass] 25.6 pg 24.7-34.3 [facility] MCHC Auto (RBC) [Mass/Vol]Or dered By: Dalia Villasenor on 12-29-2021 MCHC (RBC) [Mass/Vol] 31.4 g/dL 32.0-35.0 Fir [facility] MCV Auto (RBC) [Entitic vol] Ordered By: Dalia Villasenor on 12-29-2021 MCV (RBC) [Entitic vol] 81.7 fL 80-100 [facility] Monocytes Auto (Bld) [#/Vol] Ordered By: Dalia Villasenor on 12-29-2021 Monocytes (Bld) [#/Vol] 0.8 10*3/uL 0.0-0.8 [facility] Monocytes/100 WBC Auto (Bld) Ordered By: Dalia Villasenor on 12-29-2021 Monocytes/100 WBC (Bld) 11.6 % . [facility] Neutrophils Auto (Bld) [#/Vo l]Ordered By: Dalia Villasenor on 12-29-2021 Neutrophils (Bld) [#/Vol] 2.8 10*3/uL 1.8-7.7 [facility] Neutrophils/100 WBC Auto (Bl d)Ordered By: Dalia Villasenor on 12-29-2021 Neutrophils/100 WBC (Bld) 41.2 % . [facility] No Panel InformationOrdered By: Dalia Villasenor on 12-29-2021 Estimated GFR () 58 mL/Min [facility] Comment on above: GFR estimated refere nce range: According to KDOQI guidelines, <60 ml/min/1.73m2 is sufficient to diagnose a patient with chronic kidney disease. Hepatitis B Core Total Antibody Negative Negative [facility] Comment on above: Performed at: [email or web address] [address] [id number] Fertilizer Loader: Castro Lugo PhD, Phone: [phone] Hepatitis C Interpretation See comment . [facility] Comment on above: Negative Not infected with HCV, unless recent infection is suspected or other evidence exists to indicate HCV infection. Hepatitis C RNA Quantitative N/A [facility] Creatinine Clearance (Chem N/A [facility] Protein Electrophoresis M-Luis Comment: g/dL Not Observed [facility] Comment on above: ASYMMETRICAL GAMMA Protein Electrophoresis Note See comment . [facility] Comment on above: Protein electrophore sis scan will follow via computer, mail, or front maker delivery. Performed at: [facility] [address] [id number] Fertilizer Loader: Castro Lugo PhD, Phone: [phone] Serum Immunofixation Comment: . [facility] Comment on above: Presence of monoclon al protein is unclear at this time. Suggest repeat in 3 to 6 months if clinically indicated. Total Complement (CH50) 60 U/mL >41 [facility] Comment on above: Age Male Female 2 [...] determine out of range values. Performed at: [email or web address] [address] [id number] Fertilizer Loader: Castro Lugo PhD, Phone: [phone] Urine Random Prot Electrophor Note See comment . [facility] Comment on above: Protein electrophore sis scan will follow via computer, mail, or front maker delivery. Platelet mean volume Auto (B ld) [Entitic vol]Ordered By: Dalia Villasenor on 12-29-2021 Platelet mean volume (Bld) [Entitic vol] 8.9 fL 6.3-10.7 [facility] Platelet poor plasma interna tional normalized ratio (INR) by coagulation assay (relatOrdered By: Dalia Villasenor on 12-29-2021 INR Coag (PPP) [Relative time] 0.9 {INR} [facility] Comment on above: INR Therapeutic Rang e [...] f lupus anticoagulant-sensitive activated partial thromboOrdered By: Dalia Villasenor on 12-29-2021 aPTT.lupus sensitive.excess phospholipid actual/normal Coag (PPP) [Relative time] 34.6 sec 0.0-47.6 [facility] Platelets Auto (Bld) [#/Vol] Ordered By: Dalia Villasenor on 12-29-2021 Platelets (Bld) [#/Vol] 288 10*3/uL 150-450 [facility] Protein Auto test strip (U) [Mass/Vol]Ordered By: Dalia Villasenor on 12-29-2021 Protein (U) [Mass/Vol] Negative Negative [facility] Protein [Mass/volume] in Ser um or PlasmaOrdered By: Dalia Villasenor on 12-29-2021 Protein [Mass/Vol] 6.4 g/dL 6[facility]0-8.5 [facility] Protein [Mass/volume] in Uri neOrdered By: Dalia Villasenor on 12-29-2021 Protein (U) [Mass/Vol] 6.1 mg/dL Not Estab. [facility] Protein.monoclonal/Protein.t otal in 24 hour Urine by ElectrophoresisOrdered By: Dalia Villasenor on 12-29-2021 Protein.monoclonal Elph (24H U) [Mass fraction] Not observed % Not Observed [facility] RBC Auto (Bld) [#/Vol]Ordere d By: Dalia Villasenor on 12-29-2021 RBC (Bld) [#/Vol] 4.77 10*6/uL 3.60-5.00 [facility] Reagin Ab [Presence] in Seru m by RPROrdered By: Dalia Villasenor on 12-29-2021 Reagin Ab RPR Ql (S) Non-Reactive Non Reactive [facility] Comment on above: Performed at: [facility] [address] [id number] Fertilizer Loader: Castro Lugo PhD, Phone: [phone] Serum globulin measurement ( mass/volume)Ordered By: Dalia Villasenor on 12-29-2021 Globulin (S) [Mass/Vol] 2.9 g/dL 2.2-3.9 [facility] Serum hepatitis B virus surf shellie antibody detectionOrdered By: Dalia Villasenor on 12-29-2021 HBV surface Ab Ql (S) Non-Reactive . [facility] Comment on above: Non Reactive: Incons istent with immunity, less than 10 mIU/mL Reactive: Consistent with immunity, greater than 9.9 mIU/mL Serum homogeneous pattern an tinuclear antibody (PATRICIA) titerOrdered By: Dalia Villasenor on 12-29-2021 Homogenous nuclear Ab pattern (S) [Titer] N/A [facility] Serum nuclear antibody titer Ordered By: Dalia Villasenor on 12-29-2021 Nuclear Ab (S) [Titer] Negative . [facility] Comment on above: Negative <1:80 Borderline 1:80 Positive >1:80 ICAP nomenclature: AC-[id number] For more information about Hep-2 cell patterns use ANApatterns.org, the official website for the International Consensus on Antinuclear Antibody (PATRICIA) Patterns (ICAP). Performed at: [facility] [address] [id number] Fertilizer Loader: Castro Lugo PhD, Phone: [phone] Serum or plasma alanine schroeder otransferase measurement without P-5'-P (enzymatic activiOrdered By: Dalia Villasenor on 12-29-2021 ALT No additional P-5'-P [Catalytic activity/Vol] 20 U/L 10-60 [facility] Serum or plasma albumin/glob ulin mass ratioOrdered By: Dalia Villasenor on 12-29-2021 Albumin/Globulin [Mass ratio] 1.7 {ratio} [facility] Albumin/Globulin [Mass ratio] 1.2 {ratio} 0.7-1.7 [facility] Serum or plasma alkaline michelle sphatase measurement (enzymatic activity/volume)Ordered By: Dalia Villasenor on 12-29-2021 ALP [Catalytic activity/Vol] 57 U/L 32-92 [facility] Serum or plasma alpha 1 glob ulin measurement by electrophoresis (mass/volume)Ordered By: Dalia Villasenor on 12-29-2021 Alpha 1 globulin Elph [Mass/Vol] 0.2 g/dL 0.0-0.4 [facility] Serum or plasma alpha 2 glob ulin measurement by electrophoresis (mass/volume)Ordered By: Dalia Villasenor on 12-29-2021 Alpha 2 globulin Elph [Mass/Vol] 0.8 g/dL 0.4-1.0 [facility] Serum or plasma aspartate am inotransferase measurement (enzymatic activity/volume)Ordered By: Dalia Villasenor on 12-29-2021 AST [Catalytic activity/Vol] 22 U/L 10-42 [facility] Serum or plasma beta globuli n measurement by electrophoresis (mass/volume)Ordered By: Dalia Villasenor on 12-29-2021 Beta globulin Elph [Mass/Vol] 1.1 g/dL 0.7-1.3 [facility] Serum or plasma calcium lola urement (mass/volume)Ordered By: Dalia Villasenor on 12-29-2021 Calcium [Mass/Vol] 9.7 mg/dL 8.2-10.2 [facility] Serum or plasma chloride catia surement (moles/volume)Ordered By: Dalia Villasenor on 12-29-2021 Chloride [Moles/Vol] 101 mmol/L 95-114 [facility] Serum or plasma chromatin an tibody assay (units/volume)Ordered By: Dalia Villasenor on 12-29-2021 Chromatin Ab Qn <0.2 AI 0.0-0.9 [facility] Comment on above: Performed at: - [id number] [place], [place] [id number] Fertilizer Loader: Castro Lugo PhD, Phone: [phone] Serum or plasma complement C 3 measurement (mass/volume)Ordered By: Dalia Villasenor on 12-29-2021 Complement C3 [Mass/Vol] 133 mg/dL 82-167 [facility] Comment on above: Performed at: [facility] - [facility] [address] [place], [place] [id number] Fertilizer Loader: Castro Lugo PhD, Phone: [phone] Serum or plasma complement C 4 measurement (mass/volume)Ordered By: Dalia Villasenor on 12-29-2021 Complement C4 [Mass/Vol] 27 mg/dL 12-38 [facility] Serum or plasma gamma globul in measurement by electrophoresis (mass/volume)Ordered By: Dalia Villasenor on 12-29-2021 Gamma globulin Elph [Mass/Vol] 0.7 g/dL 0.4-1.8 [facility] Serum or plasma glucose lola urement (mass/volume)Ordered By: Dalia Villasenor on 12-29-2021 Glucose [Mass/Vol] 101 mg/dL 70-100 [facility] Comment on above: ADA recommended refe rence range Random Glucose Reference Range is dependent on time and content of last meal. Glucose of more than 200 mg/dL in a nonstressed, ambulatory subject supports the diagnosis of Diabetes Mellitus. Serum or plasma hepatitis C virus antibody signal/cutoff ratio by immunoassay (relatiOrdered By: Dalia Villasenor on 12-29-2021 HCV Ab Signal/Cutoff IA [Rel units/Vol] 0.1 s/co ratio 0.0-0.9 [facility] Serum or plasma potassium me asurement (moles/volume)Ordered By: Dalia Villasenor on 12-29-2021 Potassium [Moles/Vol] 4.4 mmol/L 3.5-5.1 [facility] Serum or plasma sodium measu rement (moles/volume)Ordered By: Dalia Villasenor on 12-29-2021 Sodium [Moles/Vol] 137 mmol/L 136-146 [facility] Serum or plasma thyroglobuli n antibody assay (units/volume)Ordered By: Dalia Villasenor on 12-29-2021 Thyroglobulin Ab Qn [IU]/mL 0.0-0.9 [facility] Comment on above: Thyroglobulin Antibo dy measured by [employer] Performed at: [employer] [facility] [address] [id number] Fertilizer Loader: Castro Lugo PhD, Phone: [phone] Serum or plasma thyroperoxid ase antibody assay (units/volume)Ordered By: Dalia Villasenor on 12-29-2021 TPO Ab Qn 28 [IU]/mL 0-34 [facility] Comment on above: Performed at: [employer] [facility] [address] [id number] Fertilizer Loader: Castro Lugo PhD, Phone: [phone] Serum or plasma total biliru bin measurement (mass/volume)Ordered By: Dalia Villasenor on 12-29-2021 Bilirubin [Mass/Vol] 0.5 mg/dL 0.3-1.2 [facility] Serum or plasma total carbon dioxide measurement (moles/volume)Ordered By: Dalia Villasenor on 12-29-2021 CO2 [Moles/Vol] 23.4 mmol/L 22.0-30.0 [facility] Serum or plasma urea nitroge n measurement (mass/volume)Ordered By: Dalia Villasenor on 12-29-2021 Urea nitrogen [Mass/Vol] 8 mg/dL 9-23 [facility] Squamous epithelial cells de tection in urine sediment by light microscopyOrdered By: Dalia Villasenor on 12-29-2021 Epithelial cells.squamous LM Ql (Urine sed) None seen [HPF] 0-2 [facility] TSH DL <= 0.005 mIU/L QnOrde red By: Dalia Villasenor on 12-29-2021 TSH Qn 1.83 m[IU]/L 0.45-5.33 [facility] TT plasOrdered By: Dalia akers on 12-29-2021 Thrombin time Coag (PPP) [Time] 19.1 sec 0.0-23.0 [facility] Thyroxine (T4) free [Mass/vo lume] in Serum or PlasmaOrdered By: Dalia Villasenor on 12-29-2021 Free T4 [Mass/Vol] 0.98 ng/dL 0.61-1.12 [facility] Urine alpha 1 globulin/total protein by electrophoresisOrdered By: Dalia Villasenor on 12-29-2021 Alpha 1 globulin Elph (U) [Mass fraction] 3.9 % . [facility] Urine alpha 2 globulin/total protein ratio by electrophoresisOrdered By: Dalia Villasenor on 12-29-2021 Alpha 2 globulin Elph (U) [Mass fraction] 19.7 % . [facility] Urine appearanceOrdered By: Dalia Villasenor on 12-29-2021 Appearance (U) Clear Clear [facility] Urine bacteria detection by automated methodOrdered By: Dalia Villasenor on 12-29-2021 Bacteria Auto Ql (U) None seen None Seen [facility] Urine beta globulin measurem ent by electrophoresis (mass/volume)Ordered By: Dalia Villasenor on 12-29-2021 Beta globulin Elph (U) [Mass/Vol] 25.8 % . [facility] Urine colorOrdered By: Parmjit Villasenor on 12-29-2021 Color (U) Yellow Yellow [facility] Urine glucose measurement by automated test strip (mass/volume)Ordered By: Dalia Villasenor on 12-29-2021 Glucose Auto test strip (U) [Mass/Vol] Normal mg/dL Normal [facility] Urine hemoglobin detection b y automated test stripOrdered By: Dalia Villasenor on 12-29-2021 Hemoglobin Auto test strip Ql (U) Negative Negative [facility] Urine leukocyte esterase det ection by automated test stripOrdered By: Dalia Villasenor on 12-29-2021 Leukocyte esterase Auto test strip Ql (U) Negative Negative [facility] Urine nitrite detection by a utomated test stripOrdered By: Dalia Villasenor on 12-29-2021 Nitrite Auto test strip Ql (U) Negative Negative [facility] Urobilinogen Auto test strip (U) [Mass/Vol]Ordered By: Dalia Villasenor on 12-29-2021 Urobilinogen (U) [Mass/Vol] Normal mg/dL Normal [facility] aPTT.lupus sensitive (LA scr een)Ordered By: Dalia Jacklyn on 12-29-2021 aPTT.lupus sensitive Coag (PPP) [Time] 31.9 sec 0.0-51.9 [facility] aPTT.lupus sensitive/aPTT.marcial pus sensitive W excess phospholipid (screen to confirm raOrdered By: Dalia Davilarow on 12-29-2021 aPTT.lupus sensitive/aPTT.lupus sensitive W excess phospholipid Coag (PPP) [Ratio] 1.17 Ratio 0.00-1.34 [facility] pH Auto test strip (U)Ordere d By: Dalia Jacklyn on 12-29-2021 pH (U) 1.020 [pH] 1.001-1.030 [facility] pH (U) 6.5 [pH] 5.0-9.0 [facility] CREATININEon 12-26-2021 Creatinine [Mass/Vol] 1.20 mg/dL Critically high 0.55-1.02 [facility] Comment on above: Performed By: #### C HUMBERTO #### [facility] [address] [address] [address] Barrington Gomez EGFR-AF [place] 55 mL/min/1.73m2 Critically low >=60 [facility] Comment on above: Performed By: #### C HUMBERTO #### [facility] [address] [address] [address] Barrington Gomez EGFR-NON AF [place] 45 mL/min/1.73m2 Critically low >=60 [facility] Comment on above: Performed By: #### C HUMBERTO #### [facility] [address] ABD/PELV W CONon 12-27-19 CT ABD/PELV W CON EXAMINATION: CT ABD/PELV W CON, 12/26/2021 7:27 AM EDT HISTORY: [...] without acute diverticulitis. Probable diminutive hiatal hernia. Peritoneum/retroperit oneum: No free fluid or gas. Vasculature: Minimal [...] DEREK COLLINS Date: 2021-12-26 15:19 Normal [facility] CULTURE URINEon 11-28-2021 CULTURE URINE Culture Observations : No growth Normal [facility] Comment on above: Performed By: #### U AMIC #### [facility] [address] [address] [address] Barrington Gomez UA RANDOM W/MICROSCOPICon BACTERIA TRACE Abnormal NONE SEEN [facility] Comment on above: Performed By: #### U AMIC #### [facility] [address] [address] [address] Barrington Gomez Bilirubin Ql (U) Negative Normal NEGATIVE [facility] Comment on above: Performed By: #### U AMIC #### [facility] [address] [address] [address] Barrington Gomez CAST SEEN Abnormal NONE SEEN [facility] Comment on above: Performed By: #### U AMIC #### [facility] [address] [address] [address] Barrington Gomez Clarity (U) CLEAR Normal CLEAR [facility] Comment on above: Performed By: #### U AMIC #### [facility] [address] [place] [address] Dr. Barrington Gomez Color (U) YELLOW Normal YELLOW [facility] Comment on above: Performed By: #### U AMIC #### [facility] [address] [address] [address] Barrington Gomez Crystals LM Nom (Urine sed) NONE SEEN Normal NONE SEEN [facility] Comment on above: Performed By: #### U AMIC #### [facility] [address] [address] [address] Barrington Gomez Epithelial cells LM Ql (Urine sed) RARE Normal NONE SEEN /RARE [facility] Comment on above: Performed By: #### U AMIC #### [facility] [address] [place] [address] Dr. Barrington Gomez Glucose Ql (U) Negative Normal NEGATIVE [facility] Comment on above: Performed By: #### U AMIC #### [facility] [address] [place] [address] Dr. Barrington Gomez Hemoglobin Ql (U) Negative Normal NEGATIVE [facility] Comment on above: Performed By: #### U AMIC #### [facility] [address] [place] [address] Dr. Barrington Gomez Ketones Ql (U) Negative Normal NEGATIVE [facility] Comment on above: Performed By: #### U AMIC #### [facility] [address] [place] [address] Dr. Barringotn Gomez LEUKOCYTES Negative Normal NEGATIVE [facility] Comment on above: Performed By: #### U AMIC #### [facility] [address] [place] [address] Dr. Barrington Gomez MUCOUS SMALL Abnormal NONE SEEN [facility] Comment on above: Performed By: #### U AMIC #### [facility] [address] [place] [address] Dr. Barrington Gomez Nitrite Ql (U) Negative Normal NEGATIVE [facility] Comment on above: Performed By: #### U AMIC #### [facility] [address] [address] [address] Barrington Gomez pH (U) 5.5 [pH] Normal 5-9 [facility] Comment on above: Performed By: #### U AMIC #### [facility] [address] [address] [address] Barrington Gomez RBC NONE SEEN Abnormal 0-2 [facility] Comment on above: Performed By: #### U AMIC #### [facility] [address] [address] [address] Barrington Gomez SPEC GRAVITY >=1.030 Abnormal 1.005-<=1.0 25 [facility] Comment on above: Performed By: #### U AMIC #### [facility] [address] [place] [address] Dr. Barrington Gomez UA PROTEIN Negative Normal NEGATIVE/ TRACE [facility] Comment on above: Performed By: #### U AMIC #### [facility] [address] [address] [address] Barrington Gomez Urobilinogen Qn (U) 0.2 {Antionette'U}/dL Normal 0.2 - 1. 0 [facility] Comment on above: Performed By: #### U AMIC #### [facility] [address] [place] [address] Dr. Barrington Gomez WBC 0-2 Abnormal NONE SEEN [facility] Comment on above: Performed By: #### U AMIC #### [facility] [address] [address] [address] Barrington Gomez US KIDNEYS BLADDERon 022 US KIDNEYS BLADDER EXAM: US KIDNEYS BLADDER HISTORY: H/O: urinary disease COMPARISON: CT of [...] left renal cyst. Electronically authenticated by: FELISHA DANIAL Date: 2021-11-21 15:46 Normal [facility] UA DIP, URINE (POC)on 2021 BILIRUBIN UA (POCT) Negative Negative [facility] CLARITY UA (POCT) Clear [facility] COLOR UA (POCT) Yellow [facility] GLUCOSE UA (POCT) Negative Negative mg/dL [facility] HEMOGLOBIN/BLOOD UA (POCT) Negative Negative [facility] KETONE UA (POCT) Negative Negative mg/dL [facility] LEUKOCYTES UA (POCT) Negative Negative [facility] NITRITE UA (POCT) Negative Negative [facility] PH UA (POCT) 5.0 4.5 - 8.0 [facility] Protein Ql (U) Negative Negative mg/dL [facility] SPECIFIC GRAVITY UA (POCT) 1.020 1.005 - 1.030 [facility] UROBILINOGEN UA (POCT) 0.2 E.U./dL Kelly l E.U./dL [facility] CULTURE URINEon 11-14-2021 CULTURE URINE Culture Observations : GREATER THAN TWO ORGANISMS PRESENT. PLEASE RESUBMIT CLEAN CATCH MID-STREAM URINE IF CLINICALLY INDICATED. Normal [facility] Comment on above: Performed By: #### U AMIC #### [facility] [address] [place] [address] Dr. Barrington Gomez UA RANDOM W/MICROSCOPICon BACTERIA NONE SEEN Normal NONE SEEN [facility] Comment on above: Performed By: #### U AMIC #### [facility] [address] [address] [address] Barrington Gomez Bilirubin Ql (U) Negative Normal NEGATIVE [facility] Comment on above: Performed By: #### U AMIC #### [facility] [address] [place] [address] Dr. Barrington Gomez CAST NONE SEEN Normal NONE SEEN [facility] Comment on above: Performed By: #### U AMIC #### [facility] [address] [address] [address] Barrington Gomez Clarity (U) SL CLOUDY Abnormal CLEAR [facility] Comment on above: Performed By: #### U AMIC #### [facility] [address] [address] [address] Barringotn Gomez Color (U) YELLOW Normal YELLOW [facility] Comment on above: Performed By: #### U AMIC #### [facility] [address] [place] [address] Dr. Barrington Gomez Crystals LM Nom (Urine sed) NONE SEEN Normal NONE SEEN [facility] Comment on above: Performed By: #### U AMIC #### [facility] [address] [address] [address] Barrington Gomez Epithelial cells LM Ql (Urine sed) RARE Normal NONE SEEN /RARE [facility] Comment on above: Performed By: #### U AMIC #### [facility] [address] [place] [address] Dr. Barrington Gomez Glucose Ql (U) Negative Normal NEGATIVE [facility] Comment on above: Performed By: #### U AMIC #### [facility] [address] [address] [address] Barrington Gomez Hemoglobin Ql (U) Negative Normal NEGATIVE [facility] Comment on above: Performed By: #### U AMIC #### [facility] [address] [place] [address] Dr. Barrington Gomez Ketones Ql (U) Negative Normal NEGATIVE [facility] Comment on above: Performed By: #### U AMIC #### [facility] [address] [address] [address] Barrington Gomez LEUKOCYTES Negative Normal NEGATIVE [facility] Comment on above: Performed By: #### U AMIC #### [facility] [address] [address] [address] Barrington Gomez MUCOUS TRACE Abnormal NONE SEEN [facility] Comment on above: Performed By: #### U AMIC #### [facility] [address] [address] [address] Barrington Gomez Nitrite Ql (U) Negative Normal NEGATIVE [facility] Comment on above: Performed By: #### U AMIC #### [facility] [address] [place] [address] Dr. Barrington Gomez pH (U) 5.5 [pH] Normal 5-9 [facility] Comment on above: Performed By: #### U AMIC #### [facility] [address] [address] [address] Barrington Gomez RBC 0-2 Normal 0-2 [facility] Comment on above: Performed By: #### U AMIC #### [facility] [address] [address] [address] Barrington Gomez SPEC GRAVITY 1.025 Normal 1.005-<=1.0 25 [facility] Comment on above: Performed By: #### U AMIC #### [facility] [address] [address] [address] Barrington Gomez UA PROTEIN Negative Normal NEGATIVE/ TRACE [facility] Comment on above: Performed By: #### U AMIC #### [facility] [address] [address] [address] Barrington Gomez Urobilinogen Qn (U) 0.2 {Antionette'U}/dL Normal 0.2 - 1. 0 [facility] Comment on above: Performed By: #### U AMIC #### [facility] [address] [place] [address] Dr. Barrington Gomez WBC NONE SEEN Normal NONE SEEN [facility] Comment on above: Performed By: #### U AMIC #### [facility] [address] [address] [address] Barrington Gomez CREATININEon 11-04-2021 Creatinine [Mass/Vol] 1.06 mg/dL Critically high 0.55-1.02 [facility] Comment on above: Performed By: #### G ENTR, CREA #### [facility] [address] [address] [address] Barrington Gomez EGFR-AF [place] >60 Normal >=60 [facility] Comment on above: Performed By: #### G ENTR, CREA #### [facility] [address] [place] [address] Dr. Barrington Gomez EGFR-NON AF [place] 52 mL/min/1.73m2 Critically low >=60 [facility] Comment on above: Performed By: #### G ENTR, CREA #### [facility] [address] [address] [address] Barrington Gomez GENTAMICIN RANDOMon 11-05-19 22 GENTAMICIN 5.2 ug/mL Normal [facility] Comment on above: Performed By: #### G ENTR, CREA #### [facility] [address] [address] [address] Barrington Gomez CULTURE URINEon 10-22-2021 CULTURE URINE Isolate 1 Escherichia coli >100,000 cfu/ml of ORGANISM 1 Escherichia coli ANTIBIOTIC M.I.C RX STATUS Ampicillin >=32 R F Ampicillin/Sulbactam 16 I F Piperacillin/Tazobact am <=4 S F Cefazolin >=64 R F Ceftazidime 8 R F Ceftriaxone >=64 R F Ertapenem <=0.5 S F Imipenem <=0.25 S F Amikacin <=2 S F Gentamicin <=1 S F Tobramycin <=1 S F Ciprofloxacin >=4 R F Levofloxacin >=8 R F Nitrofurantoin <=16 S F Trimethoprim/Sulfamet hoxazole >=320 R F Normal [facility] Comment on above: Performed By: #### U AMIC #### [facility] [address] [place] [address] Dr. Barrington Gomez MRI FOOT LT WO CONon 022 MRI FOOT LT WO CON EXAM: [...] ligament seen on the edge of the [id number] for this study. There is no cystic [...] MADISYN CAAL Date: 2021-10-22 08:49 Normal [facility] UA RANDOM W/MICROSCOPICon BACTERIA SMALL Abnormal NONE SEEN [facility] Comment on above: Performed By: #### U AMI #### [facility] [address] [place] [address] Dr. Barrington Gomez Bilirubin Ql (U) Negative Normal NEGATIVE [facility] Comment on above: Performed By: #### U AMIC #### [facility] [address] [address] [address] Barrington Gomez CAST SEEN Abnormal NONE SEEN [facility] Comment on above: Performed By: #### U AMIC #### [facility] [address] [address] [address] Barrington Gomez Clarity (U) CLEAR Normal CLEAR [facility] Comment on above: Performed By: #### U AMIC #### [facility] [address] [address] [address] Barrington Gomez Color (U) DK. ORANGE Abnormal YELLOW [facility] Comment on above: Performed By: #### U AMIC #### [facility] [address] [address] [address] Barrington Gomez Crystals LM Nom (Urine sed) NONE SEEN Normal NONE SEEN [facility] Comment on above: Performed By: #### U AMIC #### [facility] [address] [address] [address] Barrington Gomez Epithelial cells LM Ql (Urine sed) FEW Abnormal NONE SEEN /RARE [facility] Comment on above: Performed By: #### U AMIC #### [facility] [address] [address] [address] Barrington Gomez Glucose Ql (U) Negative Normal NEGATIVE [facility] Comment on above: Performed By: #### U AMIC #### [facility] [address] [address] [address] Barrington Gomez Hemoglobin Ql (U) Negative Normal NEGATIVE [facility] Comment on above: Performed By: #### U AMIC #### [facility] [address] [address] [address] Barrington Gomez HYALINE CAST FEW Normal [facility] Comment on above: Performed By: #### U AMIC #### [facility] [address] [address] [address] Barrington Gomez Ketones Ql (U) TRACE Abnormal NEGATIVE [facility] Comment on above: Performed By: #### U AMIC #### [facility] [address] [address] [address] Barrington Gomez LEUKOCYTES TRACE Abnormal NEGATIVE [facility] Comment on above: Performed By: #### U AMIC #### [facility] [address] [address] [address] Barrington Gomez MUCOUS NONE SEEN Normal NONE SEEN [facility] Comment on above: Performed By: #### U AMIC #### [facility] [address] [address] [address] Barrington Gomez Nitrite Ql (U) Negative Normal NEGATIVE [facility] Comment on above: Performed By: #### U AMIC #### [facility] [address] [address] [address] Barrington Gomez pH (U) 5.0 [pH] Normal 5-9 [facility] Comment on above: Performed By: #### U AMIC #### [facility] [address] [place] [address] Dr. Barrington Gomez RBC 0-2 Normal 0-2 [facility] Comment on above: Performed By: #### U AMIC #### [facility] [address] [place] [address] Dr. Barrington Gomez SPEC GRAVITY >=1.030 Abnormal 1.005-<=1.0 25 [facility] Comment on above: Performed By: #### U AMIC #### [facility] [address] [place] [address] Dr. Barrington Gomez UA PROTEIN Negative Normal NEGATIVE/ TRACE [facility] Comment on above: Performed By: #### U AMIC #### [facility] [address] [place] [address] Dr. Barrington Gomez Urobilinogen Qn (U) 0.2 {Antionette'U}/dL Normal 0.2 - 1. 0 [facility] Comment on above: Performed By: #### U AMIC #### [facility] [address] [place] [address] Dr. Barrington Gomez WBC 5-10 Abnormal NONE SEEN [facility] Comment on above: Performed By: #### U AMIC #### [facility] [address] [place], [place] [address] Dr. Barrington Gomez C-Reactive Proteinon 022 CRP IV <0.3 Normal [facility] Comment on above: Performed By: #### E SR, CRP, CBC #### [facility] [address], [place] [id number] Complete Blood Counton 09-22 Erythrocyte distribution width (RBC) [Ratio] 17.2 % High 11.0-15.0 [facility] Special[facility] Comment on above: Performed By: #### E SR, CRP, CBC #### [facility] [address], [place] [id number] Hematocrit (Bld) [Volume fraction] 41.5 % Normal 35.0-47.0 [facility] Specialist Comment on above: Performed By: #### E SR, CRP, CBC #### [facility] [address], [place] [id number] Hemoglobin (Bld) [Mass/Vol] 12.5 g/dL Normal 11.6-15.5 [facility] Specialist Comment on above: Performed By: #### E SR, CRP, CBC #### [facility] [address], [place] [id number] MCH (RBC) [Entitic mass] 24.7 pg Low 27.0-33.0 [facility] Specialist Comment on above: Performed By: #### E SR, CRP, CBC #### [facility] [address], [place] [id number] MCHC (RBC) [Mass/Vol] 30.1 g/dL Low 32.0-36.0 [facility] Comment on above: Performed By: #### E SR, CRP, CBC #### [facility] [address], [place] [id number] MCV (RBC) [Entitic vol] 82 fL Normal 80-[address] [facility] Comment on above: Performed By: #### E SR, CRP, CBC #### [facility] [address], [place] [id number] Platelet mean volume (Bld) [Entitic vol] 10.40 fL Normal 7.50-12.50 [facility] Special[facility] Comment on above: Performed By: #### E SR, CRP, CBC #### [facility] [address], [place] [id number] Platelets (Bld) [#/Vol] 317 10*3/uL Normal 140-400 [facility] [facility] Comment on above: Performed By: #### E SR, CRP, CBC #### [facility] [address], [place] [id number] RBC (Bld) [#/Vol] 5.07 10*6/uL Normal 3.90-5.20 [facility] Comment on above: Performed By: #### E SR, CRP, CBC #### [facility] [address], [place] [id number] RDW-SD 50.8 fL High 37.0-50.0 [facility] Comment on above: Performed By: #### E SR, CRP, CBC #### [facility] [address], [place] [id number] WBC (Bld) [#/Vol] 9.2 10*3/uL Normal 3.8-11.0 [facility] Specialist Comment on above: Performed By: #### E SR, CRP, CBC #### [facility] [address], [place] [id number] RBC Sedimentation Rateon ESR (Bld) [Velocity] 10.00 mm/h Normal 0.00-30.00 [facility] Specialist Comment on above: Performed By: #### E SR, CRP, CBC #### [facility] [address], [place] [id number] Vital Signs Date Time Vital Sign Value Performing Clinician Facility 10-10-2022 [id number] Body temperature 97.88 [degF] Rocael Wayne [facility] 10-10-2022 15:14-040 Diastolic blood pressure 92 mm[Hg] Rocael Wayne [facility] 10-10-2022 15:14-040 Heart rate 89 /min Rocael Wayne [facility] 10-10-2022 15:14-0400 Respiratory rate 16 /min Rocael Wayne [facility] 10-10-2022 15:14-0400 SaO2% (BldA) [Mass fraction] 99 % Rocael Wayne [facility] 10-10-2022 15:14-0400 Systolic blood pressure 145 mm[Hg] Rocael Wayne [facility] 10-07-2022 10:04-0400 Body height 162.6 cm Jose Bryant MD Work Phone: [facility] 10-07-2022 10:04-0400 Body temperature 97.39 [degF] Jose Bryant MD Work Phone: [facility] 10-07-2022 10:04-0400 Body weight 108.41 kg Jose Bryant MD Work Phone: [facility] 10-07-2022 10:04-0400 Diastolic blood pressure 85 mm[Hg] Jose Bryant MD Work Phone: [facility] 10-07-2022 10:04-0400 Heart rate 83 /min Jose Bryant MD Work Phone: [facility] 10-07-2022 10:04-0400 Respiratory rate 16 /min Jose Bryant MD Work Phone: [facility] 10-07-2022 10:04-0400 SaO2% (BldA) [Mass fraction] 98 % Jose Bryant MD Work Phone: [facility] 10-07-2022 10:04-0400 Systolic blood pressure 148 mm[Hg] Jose Bryant MD Work Phone: [facility] 06-10-2022 11:00-0500 Body height 162.6 cm Jose Bryant MD Work Phone: [facility] 06-10-2022 11:00-0500 Body temperature 97.2 [degF] Jose Bryant MD Work Phone: [facility] 06-10-2022 11:00-0500 Body weight 105.87 kg Jose Bryant MD Work Phone: [facility] 06-10-2022 11:00-0500 Diastolic blood pressure 87 mm[Hg] Jose Bryant MD Work Phone: [facility] 06-10-2022 11:00-0500 Heart rate 73 /min Jose Bryant MD Work Phone: [facility] 06-10-2022 11:00-0500 Respiratory rate 16 /min Jose Bryant MD Work Phone: [facility] 06-10-2022 11:00-0500 SaO2% (BldA) [Mass fraction] 98 % Jose Bryant MD Work Phone: [facility] 06-10-2022 11:00-0500 Systolic blood pressure 152 mm[Hg] Jose Bryant MD Work Phone: [facility] 02-17-2022 11:36-0400 Body temperature 98.4 [degF] Quique Mojica MD Work Phone: [facility] 02-17-2022 11:36-0400 Diastolic blood pressure 56 mm[Hg] Quique Mojica MD [facility] 02-17-2022 11:36-0400 Heart rate 96 /min Quique Mojica MD Work Phone: [facility] 02-17-2022 11:36-0400 Respiratory rate 16 /min Quique Mojica MD Work Phone: [facility] 02-17-2022 11:36-0400 SaO2% (BldA) [Mass fraction] 93 % Quique Mojica MD Work Phone: [facility] [email or web address] 02-17-2022 11:36-0400 Systolic blood pressure 117 mm[Hg] Quique Mojica MD Work Phone: [facility] [email or web address] 02-16-2022 10:32-0400 Body height 162.6 cm Quique Mojica MD Work Phone: [facility] [email or web address] 02-16-2022 10:32-0400 Body mass index (BMI) [Ratio] 40.34 kg/m2 Quique Mojica MD Work Phone: [facility] [email or web address] 02-16-2022 10:32-0400 Body weight 106.59 kg Quique Mojica MD Work Phone: [facility] [email or web address] 01-26-2022 07:54-0400 Body height 162.6 cm Sta 1 [facility] 01-26-2022 07:54-0400 Body mass index (BMI) [Ratio] 40.34 kg/m2 Sta 1 [facility] [email or web address] 01-26-2022 07:54-0400 Body temperature 97.5 [degF] Sta 1 [facility] [employer] 01-26-2022 07:54-0400 Body weight 106.59 kg Sta 1 [facility] [employer] 01-26-2022 07:54-0400 Diastolic blood pressure 84 mm[Hg] Sta 1 [facility] [email or web address] 01-26-2022 07:54-0400 Heart rate 85 /min Sta 1 [facility] [employer] 01-26-2022 07:54-0400 Respiratory rate 16 /min Sta 1 [facility] [employer] 01-26-2022 07:54-0400 SaO2% (BldA) [Mass fraction] 98 % Sta 1 [facility] [email or web address] 01-26-2022 07:54-0400 Systolic blood pressure 133 mm[Hg] Sta 1 [facility] [email or web address] 11-20-2021 09:35-0400 Body temperature 97.3 [degF] Dallas Palmer MD Work Phone: [facility] 11-20-2021 09:35-0400 Body weight 104.33 kg Dallas Palmer MD Work Phone: [facility] 11-20-2021 09:35-0400 Diastolic blood pressure 78 mm[Hg] Dallas Palmer MD Work Phone: [facility] 11-20-2021 09:35-0400 Heart rate 95 /min Dallas Palmer MD Work Phone: [facility] 11-20-2021 09:35-0400 Systolic blood pressure 120 mm[Hg] Dallas Palmer MD Work Phone: [facility] Encounters Encounter Date Encounter Type Care Provider Facility Start: 06-21-2023 End: 06-21-2023 ambulatory DALIA VIGIL Not Available Start: 04-01-2023 ambulatory Jose reagan MD Work Phone: Hematology/Oncology Comment on above: Cat Scan Start: 03-31-2023 End: 03-31-2023 ambulatory JOSE BRYANT Facility:[facility] Start: 02-22-2023 End: 02-22-2023 ambulatory Ricardo Hooper Facility:[facility] Start: 02-22-2023 End: 02-22-2023 ambulatory MD Ricardo Hooper Work Phone: [facility] Work Phone: Start: 02-22-2023 End: 02-22-2023 Patient encounter procedure MD Ricardo Hooper Work Phone: [facility] Work Phone: Start: 01-11-2023 End: 01-12-2023 Evaluation and management of inpatient [facility] Start: 12-21-2022 End: 12-26-2022 ambulatory [facility] Start: 10-10-2022 End: 10-10-2022 Emergency department patient visit Rocael Wayne Facility:[facility] Start: 10-10-2022 End: 10-10-2022 Emergency department patient visit Rocael Wayne [facility] Start: 10-08-2022 End: 10-08-2022 ambulatory LEOBARDO SAAVEDRA . Facility:[facility] Start: 10-07-2022 End: 10-07-2022 ambulatory RICARDO HOOPER Facility:[facility] Start: 10-07-2022 End: 10-07-2022 Office outpatient visit 15 minutes Jose Bryant MD Work Phone: Hematology/Oncology Comment on above: Iron deficiency anem ia secondary to inadequate dietary iron intake (Primary Dx); Thrombocytopenia (HCC); Lung nodules Start: 08-29-2022 End: 08-30-2022 ambulatory VERNELL FARRELL Facility:[facility] Start: 08-05-2022 End: 08-06-[address] RICARDO HOOPER . Facility:[facility] Start: 07-28-2022 ambulatory VIN KIM . Facility:[facility] Start: 06-10-2022 End: 06-10-2022 ambulatory JOSE BRYANT Facility:[facility] Start: 06-10-2022 End: 06-10-2022 Office outpatient [...] Start: 04-09-2022 End: 04-09-[address] RICARDO HOPOER . Facility:[facility] Start: 04-06-2022 End: 04-06-2022 ambulatory JOSE BRYANT Facility:[facility] Start: 02-18-2022 Telephone encounter Patricia Murrell Hematology/Oncology Comment on above: Appointment; Results Start: 02-16-2022 End: 02-17-2022 ambulatory [facility] Start: 02-16-2022 End: 02-17-2022 Subsequent hospital visit by physician Quique Mojica MD Work Phone: [facility] Comment on above: Lumbar stenosis with neurogenic claudication (Primary Dx) Start: 01-26-2022 End: 01-31-2022 ambulatory [facility] Start: 01-26-2022 End: 01-30-2022 Subsequent hospital visit by physician Brandon Valladares Rm 1 [facility] PRE-ADMIT TESTING Start: 12-29-2021 End: 12-29-2021 Patient encounter procedure MD Ricardo Hooper Work Phone: [facility] [address] Start: 12-26-2021 End: 12-27-2021 [...] Facility:[facility] Start: 11-03-2021 End: 11-09-2021 ambulatory VERNELL FARRELL Facility:[facility] Start: 10-22-2021 End: 10-22-[address] RICARDO HOOPER . Facility:[facility] Start: 10-20-2021 End: 10-21-[address] RICARDO HOOPER . Facility:[facility] Procedures Date Procedure Procedure Detail Performing Clinician [...] DTaP/Tdap/Td vaccine (2 - Td or Tdap) ANGEL [facility] Start: 07-29-2030 Urine microalbumin profile [facility] Start: 03-31-2026 Diabetes Screening Diabetes Screenin g [facility] Start: 10-07-2025 DIABETES SCREEN DIABETES SCREEN [facility] Start: 06-10-2025 DIABETES SCREEN DIABETES SCREEN [facility] Start: 04-09-2025 DIABETES SCREEN DIABETES SCREEN [facility] Start: 12-18-2024 Lipid 1996 panel - Serum or Plasma Lipid Screening [facility] Start: 12-18-2024 LIPID SCREEN LIPID SCREEN [facility] Start: 07-10-2024 DIABETES SCREEN DIABETES SCREEN [facility] Start: 07-05-2023 End: 04-04-2024 CBC W Auto Differential panel - Blood CBC + DIFF Lab Routine Thrombocytopenia (HCC) Iron deficiency anemia secondary to inadequate dietary iron intake Expected: 07/05/2023 (Approximate), Expires: 04/04/2024 [facility] Work Phone: Comment on above: Expected: 07/05/2023 (Approximate), Expires: 04/04/2024 Start: 07-05-2023 End: 04-04-2024 Cobalamin (Vitamin B12) [Mass/volume] in Serum or Plasma VITAMIN B12 BLOOD Lab Routine Thrombocytopenia (HCC) Iron deficiency anemia secondary to inadequate dietary iron intake Expected: 07/05/2023 (Approximate), Expires: 04/04/2024 [facility] Work Phone: Comment on above: Expected: 07/05/2023 (Approximate), Expires: 04/04/2024 Start: 07-05-2023 End: 04-04-2024 Comprehensive metabolic 2000 panel - Serum or Plasma COMP METABOLIC PANEL Lab Routine Thrombocytopenia (HCC) Iron deficiency anemia secondary to inadequate dietary iron intake Expected: 07/05/2023 (Approximate), Expires: 04/04/2024 [facility] Work Phone: Comment on above: Expected: 07/05/2023 (Approximate), Expires: 04/04/2024 Start: 07-05-2023 End: 04-04-2024 Ferritin [Mass/volume] in Serum or Plasma FERRITIN BLD Lab Routine Thrombocytopenia (HCC) Iron deficiency anemia secondary to inadequate dietary iron intake Expected: 07/05/2023 (Approximate), Expires: 04/04/2024 [facility] Work Phone: Comment on above: Expected: 07/05/2023 (Approximate), Expires: 04/04/2024 Start: 07-05-2023 End: 04-04-2024 Folate [Mass/volume] in Serum or Plasma FOLATE SERUM Lab Routine Thrombocytopenia (HCC) Iron deficiency anemia secondary to inadequate dietary iron intake Expected: 07/05/2023 (Approximate), Expires: 04/04/2024 [facility] Work Phone: Comment on above: Expected: 07/05/2023 (Approximate), Expires: 04/04/2024 Start: 07-05-2023 End: 04-04-2024 Iron and Iron binding capacity panel - Serum or Plasma IRON + TIBC Lab Routine Thrombocytopenia (HCC) Iron deficiency anemia secondary to inadequate dietary iron intake Expected: 07/05/2023 (Approximate), Expires: 04/04/2024 [facility] Work Phone: Comment on above: Expected: 07/05/2023 (Approximate), Expires: 04/04/2024 Start: 04-09-2023 End: 10-08-2023 CBC W Auto Differential panel - Blood CBC + DIFF Lab Routine Thrombocytopenia (HCC) Lung nodules Iron deficiency anemia secondary to inadequate dietary iron intake Expected: 04/09/2023 (Approximate), Expires: 10/08/2023 [facility] Work Phone: Comment on above: Expected: 04/09/2023 (Approximate), Expires: 10/08/2023 Start: 04-09-2023 End: 10-08-2023 Cobalamin (Vitamin B12) [Mass/volume] in Serum or Plasma VITAMIN B12 BLOOD Lab Routine Thrombocytopenia (HCC) Lung nodules Iron deficiency anemia secondary to inadequate dietary iron intake Expected: 04/09/2023 (Approximate), Expires: 10/08/2023 [facility] Work Phone: Comment on above: Expected: 04/09/2023 (Approximate), Expires: 10/08/2023 Start: 04-09-2023 End: 10-08-2023 Comprehensive metabolic 2000 panel - Serum or Plasma COMP METABOLIC PANEL Lab Routine Thrombocytopenia (HCC) Lung nodules Iron deficiency anemia secondary to inadequate dietary iron intake Expected: 04/09/2023 (Approximate), Expires: 10/08/2023 [facility] Work Phone: Comment on above: Expected: 04/09/2023 (Approximate), Expires: 10/08/2023 Start: 04-09-2023 End: 11-06-2023 CT CHEST W IVCON CT CHEST W IVCON Radiology Routine Lung nodules Expected: 04/09/2023 (Approximate), Expires: 11/06/2023 [facility] Work Phone: Comment on above: Expected: 04/09/2023 (Approximate), Expires: 11/06/2023 Start: 04-09-2023 End: 10-08-2023 Ferritin [Mass/volume] in Serum or Plasma FERRITIN BLD Lab Routine Thrombocytopenia (HCC) Lung nodules Iron deficiency anemia secondary to inadequate dietary iron intake Expected: 04/09/2023 (Approximate), Expires: 10/08/2023 [facility] Work Phone: Comment on above: Expected: 04/09/2023 (Approximate), Expires: 10/08/2023 Start: 04-09-2023 End: 10-08-2023 Folate [Mass/volume] in Serum or Plasma FOLATE SERUM Lab Routine Thrombocytopenia (HCC) Lung nodules Iron deficiency anemia secondary to inadequate dietary iron intake Expected: 04/09/2023 (Approximate), Expires: 10/08/2023 [facility] Work Phone: Comment on above: Expected: 04/09/2023 (Approximate), Expires: 10/08/2023 Start: 04-09-2023 End: 10-08-2023 Iron and Iron binding capacity panel - Serum or Plasma IRON + TIBC Lab Routine Thrombocytopenia (HCC) Lung nodules Iron deficiency anemia secondary to inadequate dietary iron intake Expected: 04/09/2023 (Approximate), Expires: 10/08/2023 [facility] Work Phone: Comment on above: Expected: 04/09/2023 (Approximate), Expires: 10/08/2023 Start: 03-15-2023 Pneumococcal 65+ yea rs Vaccine (2 - PPSV23 or PCV20) Pneumococcal 65+ years Vaccine (2 - PPSV23 or PCV20) [facility] Start: 03-15-2023 Pneumococcal Vaccine : 65+ (3 - PPSV23 or PCV20) Pneumococcal Vaccine: 65+ (3 - PPSV23 or PCV20) [facility] Start: 03-15-2023 PNEUMOCOCCAL: 65+ (#3) PNEUMOCOCCAL: 65+ (#3) [facility] Start: 03-15-2023 PNEUMOCOCCAL: 65+ (2 - PPSV23 or PCV20) PNEUMOCOCCAL: 65+ (2 - PPSV23 or PCV20) [facility] Start: 01-29-2023 Covid-19 Vaccine (2022- season) Covid-19 Vaccine (2022- season) [facility] Start: 01-29-2023 Influenza vaccination Influenza Vacc ine (#1) [facility] Start: 05-31-2022 ADVANCE DIRECTIVE DISCUSSION ADVANCE DIRECTIVE DISCUSSION [facility] Start: 05-31-2022 DEPRESSION ASSESSMENT DEPRESSION ASS ESSMENT [facility] Start: 02-16-2022 End: 02-16-2022 Admission to same day surgery center 02/16/2022 Surgery IP Unit Quique Mojica MD [address] [place] [address] L3-4 LUMBAR LAMINECTOMY POSTERIOR ABOVE PREVIOUS L 4-5 FUSION [facility] Comment on above: L3-4 LUMBAR LAMINECT JOEL POSTERIOR ABOVE PREVIOUS L 4-5 FUSION Start: 02-16-2022 End: 02-16-2022 Laminectomy w/o ffd > 2 vert seg lumbar LUMBAR LAMINECTOMY POSTERIOR Spinal stenosis of lumbar region, unspecified whether neurogenic claudication present 02/16/2022 12:[address] [facility] Start: 02-16-2022 Subsequent hospital visit by physician 02/16/2022 Hospital Encounter IP Unit Quique Mojica MD [address] [place] [address] [facility] Start: 02-12-2022 Annual Wellness Visi t (AWV) Annual Wellness Visit (AWV) [facility] Start: 01-29-2022 Influenza vaccination B ON [facility] Start: 01-21-2022 Screening mammograph y of bilateral breasts MM screening mammo BI w/CAD [facility] Start: 01-21-2022 End: 01-21-2022 Patient encounter procedure Departed Clinical [facility] Start: 01-14-2022 Adult depression screening assessment DEPRESSION SCREENING [facility] Start: 12-09-2021 COVID-19 VACCINE (5 - Booster for Pfizer series) COVID-19 VACCINE (5 - Booster for Pfizer series) [facility] Start: 2021 ADVANCE DIRECTIVE DISCUSSION ADVANCE DIRECTIVE DISCUSSION [facility] Start: 2021 BONE DENSITY BONE DENSITY [facility] Start: 2021 Bone Density Screening Bone Density Screening [facility] Start: 05-31-2021 DEPRESSION ASSESSMENT DEPRESSION ASS ESSMENT [facility] Start: 2016 RSV Vaccine (1 - 1-d ose 60+ series) RSV Vaccine (1 - 1-dose 60+ series) [facility] Start: 2006 Screening for malign ant neoplasm of breast Breast cancer screen [facility] Start: 2001 COLOGUARD (FIT-DNA) COLOGUARD (FIT-D NA) [facility] Start: 2001 Colonoscopy COLONOSCOPY [facility] Start: 2001 COLORECTAL CANCER SCREENING COLORECTAL CANCER SCREENING [facility] Start: [address] COLONOGRAPHY [facility] Start: 2001 FECAL OCCULT BLOOD FECAL OCCULT BLOO D [facility] Start: 2001 Screening for malign ant neoplasm of colon [facility] Start: 2001 SIGMOIDOSCOPY SIGMOIDOSCOPY [facility] Start: 1996 Lipid panel Lipids ANGEL Wray [employer] Start: 1996 Mammography [facility] Start: 09-19-1991 Diabetes screen Diabetes screen [facility] [email or web address] Start: 1974 Hepatitis C screening Hepatitis C sc reen [facility] [email or web address] Start: 1974 HIV [facility]CRE[facility] Start: 09-19-1971 HIV screening HIV screen [facility] CLEARJULIET CONNELLY [employer] Start: 1968 Depression Screen Depression Screen [employer] [facility] End: 02-19-2022 Basic metabolic 2000 panel - Serum or Plasma Basic Metabolic Panel Lab Routine Daily for 3 Days starting 02/17/2022 until 02/19/2022, 1 completed [employer] Phone: Comment on above: Daily for 3 Days sta rting 02/17/2022 until 02/19/2022, 1 completed End: 02-19-2022 CBC W Auto Differential panel - Blood CBC with Auto Differential Lab Routine Daily for 3 Days starting 02/17/2022 until 02/19/2022, 1 completed [employer] Phone: Comment on above: Daily for 3 Days sta rting 02/17/2022 until 02/19/2022, 1 completed End: 02-16-2022 Intermittent pulse oximetry Pulse Oximetry Spot Check Respiratory Care Routine One Time for 1 Occurrences starting 02/16/2022 until 02/16/2022 [employer] Phone: Comment on above: One Time for 1 Occur rences starting 02/16/2022 until 02/16/2022 Oxygen therapy [[facility] Data Set] Initiate Oxygen Therapy Protocol Respiratory Care Routine As Needed until discontinued starting 02/16/2022 [employer] Phone: Comment on above: As Needed until disc ontinued starting 02/16/2022 Spirometry panel Incentive mark metry Respiratory Care Routine Every 2hr while awake until discontinued starting 02/16/2022 [employer] Phone: Comment on above: Every 2hr while awak e until discontinued starting 02/16/2022 [facility] Immunizations Immunization Date Immunization Notes Care Provider Fa bonifacio 04-26-2022 Seasonal, quadrivale nt, recombinant, injectable influenza vaccine, preservative free Jose Bryant MD Work Phone: [facility] 04-26-2022 influenza virus vacc ine, unspecified formulation Jose Bryant MD Work Phone: [facility] 03-28-2021 influenza, injectabl e, quadrivalent, preservative free Dallas Palmer MD Work Phone: [facility] 11-26-2020 zoster vaccine recombinant Dallas Palmer MD Work Phone: [facility] 09-10-2020 COVID-19 mRNALowell (Pfizer) MD Ricardo Hooper Work Phone: [facility] 08-19-2020 COVID-19 mRNA Combernarda bains (Pfizer) MD Ricardo Hooper Work Phone: [facility] 07-29-2020 hepatitis A vaccine, adult dosage Dallas Palmer MD Work Phone: [facility] 07-29-2020 tetanus toxoid, redu perri diphtheria toxoid, and acellular pertussis vaccine, adsorbed Dallas Palmer MD Work Phone: [facility] 07-12-2020 typhoid capsular polysaccharide vaccine Dallas Palmer MD Work Phone: [facility] 01-30-2020 influenza, injectabl e, quadrivalent, preservative free Dallas Palmer MD Work Phone: [facility] 01-30-2020 zoster vaccine recombinant Dallas Palmer MD Work Phone: [facility] 02-27-2019 influenza, injectabl e, quadrivalent, preservative free Dallas Palmer MD Work Phone: [facility] 01-27-2019 influenza, injectabl e, quadrivalent, preservative free Dallas Palmer MD Work Phone: [facility] 03-21-2018 influenza, injectabl e, quadrivalent, contains preservative Dallas Palmer MD Work Phone: [facility] 03-21-2018 influenza, seasonal, injectable Dallas Palmer MD Work Phone: [facility] 03-15-2018 influenza, injectabl e, quadrivalent, preservative free Dallas Palmer MD Work Phone: [facility] 03-15-2018 pneumococcal polysaccharide vaccine, 23 valent Dallas Palmer MD Work Phone: [facility] 02-28-2018 pneumococcal conjuga te vaccine, 13 valent Dallas Palmer MD Work Phone: [facility] 01-29-2018 influenza virus vacc ine, unspecified formulation Dallas Palmer MD Work Phone: [facility] 06-18-2017 influenza, high dose seasonal, preservative-free Dallas Palmer MD Work Phone: [facility] 06-18-2017 pneumococcal polysaccharide vaccine, 23 valent Dallas Palmer MD Work Phone: [facility] 04-20-2014 influenza, seasonal, injectable, preservative free Dallas Palmer MD Work Phone: [facility] Payers Date Payer Category Payer Self-pay [id number] 2018 Medicare HUMANA MEDICARE HUMANA MEDICARE PPO [id number] 2018-Present [phone] [address] [place] [address] PPO [id number] 2018 Medicare HUMANA MEDICARE HUMANA MEDICARE PPO [id number] 2018-Present [phone] [address] [place] [address] PPO [id number] 1959 Private Health Insurance [id number] 1959 Unknown [id number] 1956 Unknown [id number] 2.16.840.1.513932.3.579.2. 593 1956 Unknown [id number] 2.16.840.1.191002.3.579.2. 593 1956 Unknown [id number] ..840.1.837080.3.579.2. 593 1956 Unknown [id number] .840.1.464688.3.579.2. 593 1956 Unknown [id number] 2..840.1.144604.3.579.2. 593 1956 Unknown [id number] 2.16.840.1.289341.3.579.2. 593 1956 Unknown [id number] .840.1.485572.3.579.2. 593 1956 Unknown [id number] .840.1.862981.3.579.2. 593 1956 Unknown [id number] 2.16.840.1.214834.3.579.2. 593 1956 Unknown [id number] 2.16.840.1.029074.3.579.2. 593 1956 Unknown [id number] 2..840.1.047222.3.579.2. 593 1956 Unknown [id number] 2..840.1.845789.3.579.2. 593 1956 Unknown [id number] 2.16.840.1.403926.3.579.2. 593 1956 Unknown [id number] 2.16.840.1.734437.3.579.2. 593 1956 Unknown [id number] 2.16.840.1.959235.3.579.2. 593 1956 Unknown [id number] 2.16.840.1.180217.3.579.2. 593 1956 Unknown [id number] 2.16.840.1.178108.3.579.2. 593 1956 Unknown [id number] 2.16.840.1.604183.3.579.2. 727 1956 Unknown [id number] 2.16.840.1.955977.3.579.2. 177 1956 Unknown [id number] 2.16.840.1.792419.3.579.2. 177 1956 Unknown [id number] 2.16.840.1.102448.3.579.2. 177 1956 Unknown [id number] 2.16.840.1.390322.3.579.2. 177 1956 Unknown [id number] 2.16.840.1.986354.3.579.2. 1259 1956 Unknown [id number] 2.16.840.1.224895.3.579.2. 1259 Medicaid Medicaid [id number] Medicare [employer] MCR [id number] Unknown [id number] 2.16.840.1.885878.3.579.2. 531 Social History Date Type Detail Facility Start: 01-23-2015 End: 04-30-2015 Tobacco smoking status AZIS Never smoked tobacco [facility] Start: 01-23-2015 End: 04-30-2015 Tobacco use and exposure Smokeless tobacco non-user [facility] Start: 07-10-2021 End: 06-10-2022 Alcohol intake Current drinker of alcohol (finding) [facility] Start: 06-17-2015 History SDOH Alcohol Comment rare [facility] Start: 1955 Sex Assigned At Not on file [facility] Start: 10-28-2021 End: 04-09-2022 Exposure to SARS-CoV-2 (event) Not sure [facility] Start: 1955 Sex Assigned At Female F [facility] Start: 01-26-2022 End: 02-17-2022 Alcohol intake Ex-drinker (finding) [employer] Phone: Start: 09-15-2021 History SDOH Alcohol Frequency 1 [employer] Phone: Start: 06-10-2022 End: 06-13-2022 Sex Assigned At Female [facility] Start: 06-10-2022 End: 06-13-2022 History of Social function [facility] Adult Depression Screening Assessment 0 [facility] Functional Status Date Assessment Result Facility 10-10-2022 Functional Status N/A [facility] Clinical Notes 11-05-2021 to 04-04-2023 Telephone Encounter [...] 2-3 days before. documented in this encounter [facility] 03-31-2023 Note HNO ID: [id number] Author: Kaci Hodge RN Service: ? Author [...] SITE APPEARANCE: Clean,Dry and Intact SIGNATURE: Kaci Hodeg RN PATIENT NAME: Jessica Ferrera DATE: March 31, 2023 TIME: 8:53 AM [facility] 03-31-2023 Note HNO ID: [id number] Author: Charleen Tao RT(R) Service: ? Author Type: Technologist Type: Progress [...] and Intact, Site disposition Discontinued SIGNED BY: Charleen Tao, RT(R) March 31, 2023 9:39 AM [facility] 10-10-2022 Hospital Discharg e instructions Patient Education [...] few weeks. Home care treatment may include: Ckjc-jos-jyjacjk pain relievers. A warm, moist cloth placed over the ear. Severe cases may require a procedure to insert tubes in the ears (tympanostomy tubes) to drain the fluid. Follow these instructions at home: Take odsp-vva-yqelfjn and prescription medicines only as told by [...] provider. Document Revised: 09/11/2021 Document Reviewed: 09/11/2021 [employer] Patient Education 2022 [employer]. Follow Up Care 10/10/2022 14:55:39 With:Ricardo Hooper Address: [address] [place] [address] Business (1) When:10/13/2022 15:48:06 Comments:Follow-up with your primary care provider in 3 to 5 days. If symptoms worsen, do not improve, or new symptoms arise please report back to emergency department for further evaluation. [facility] 10-10-2022 Evaluation + Plan note Extrac mirtha from: Title:ED Note Author:Thony Soriano PA-C te:10/10/22 Left serous otitis media (H6 5.92: Unspecified nonsuppurative otitis media, left ear) Orders: cefdinir, 300 mg = 1 cap(s), Oral, q12hr, X 7 day(s), # 14 cap(s), Refills(s) 0 predniSONE, 60 mg = 3 tab(s), Oral, Daily, X 7 day(s), # 21 tab(s), Refills(s) 0 [facility]05-10-2023 NoteHNO ID: [id number] Author: Jose Bryant MD Service: ? Author Type: Physician Type: Progress Notes Filed: 10/07/2022 10:43 AM Note Text: NAME: Jessica Ferrera CLINIC NO.: [id number] DATE OF SERVICE: June 10, 2022 (Andra) [...] stable - can reassess in 6 months. [facility] Clinical Note Previous notes reviewed today [...] with more than 50% of the total ftmf-ol-lxie time of the visit in counseling / coordination of care. Yo Morse MD, MS [employer] Manager In [employer] Hematology and Medical Oncology [address] [place] [id number] Labs and Imaging Reviewed outside records provided prior to this visit and those in [facility]. as diagnosed by Dr. Morse [facility]. No evidence of a paraprotein. Negative hepatitis [...] Updated Visit, October 07, 2022: Leaving for [facility] next week. Has all of her shots [...] in concerned with recent CT done in [facility] with a left 8 mm nodule. Appears to be stable overall. Will consider following more closely but has multiple reasons for inflammatory changes included untreated sleep apnea and COVID-19 in 04/2020. Feels in pain from hip injection and has a UT (more content not included)... [facility]05-10-2023 Instructions* Patient Instructions* Jose Bryant MD - 10/07/2022 10:42 AM EDT RTC in 6 months labs and scans 1 week before Hold oral Iron while in [place] ( for 3 weeks) CT chest in 6 months with labs also. [facility] History of Present illness Narrative* Jose Bryant MD - 10/07/2022 10:33 AM EDT Images from the original note were not included. NAME: Jessica Ferrera CLINIC NO.: [id number] DATE OF SERVICE: June 10, 2022 (Andra) [...] stable - can reassess in 6 months. [facility] Clinical Note Previous notes reviewed today in [...] with more than 50% of the total aood-pd-jila time of the visit in counseling / coordination of care. Yo Morse MD, MS Retail Manager In [employer] Hematology and Medical Oncology [address] [place], [place] [id number] Labs and Imaging Reviewed outside records provided prior to this visit and those in [place]. as diagnosed by Dr. Morse [facility]. No evidence of a paraprotein. Negative hepatitis [...] Updated Visit, October 07, 2022: Leaving for [facility] next week. Has all of her shots [...] She has a lot of stress surrounding hermother and her son . We talked about her mental / emotional state and offered support which she turned down for now but will let me know. Past several months has been complaining of persistent / recurrent cough and discomfort. No real dyspnea. Would recommend that she see her PCP. Updated Visit, January 15, 2021: Comes in concerned with recent CT done in [facility] with a left 8 mm nodule. Appears [...] deviated septum noted low platelets. Colonoscopy in [place] 2016 with many polyps, recommended repeat. Colonoscopy in 2017 in [place]. June 27, 2018 She notes recent severe [...] 5 miles per day. Had trip to [place] in November for chest pain. CT chest [...] Other: See Comments Burning of skin Nitrofurantoin Clarke* GI Upset, Hives, Itching, Rash, Swelling Penicillins [...] 06/05/2021 CYSTOURETHROSCOPY 06/20/15 Cystoscopy; Dr. Palmer; Leanne REJ [facility] HX Left HYSTERECTOMY HX 1995 [...] which included preparing to see the patient, liys-rz-tpvj patient care, completing clinical documentation, performing a medically appropriate examination, counseling and educating the patient/family/caregiver, ordering medications, tests, or p rocedures, and independently interpreting results (not separately reported). Jose Bryant MD, CPE Hematology and Oncology Services Provided at: [place], [place] CC: Ricardo Hooper MD [address] [address] [facility] Nurse Note* Desiree Connors MA - 10/07/2022 10:08 AM EDT Patient is going to physical therapy for back and head, her head is better. Desiree Connors MA documented in this encounterK[facility]-2023 NotePROCEDURE: XR ANKLE LT MIN 3 V COMPARISON: 10/01/2021 HISTORY: Pain of left ankle joint FINDINGS: BONES:No acute fracture or dislocation. Moderate to marked enthesopathic spurring of the plantar calcaneus. Mild degenerative changes with marginal osteophyte formation. SOFT TISSUES:Negative. No visible soft tissue swelling. EFFUSION:None visible. OTHER: Negative. IMPRESSION: Stable degenerative changes Electronically authenticated by: JOSE ALBERTO STEPHEN Date: 2022-08-05 13:47[facility]01-11-2023 NoteHNO ID: [id number] Author: Jose Bryant MD Service: ? Author Type: Physician Type: Progress Notes Filed: 06/10/2022 11:39 AM Note Text: NAME: Jessica Ferrera CLINIC NO.: [id number] DATE OF SERVICE: June 10, 2022 (Andra) [...] 1 year. Will discuss in 6 months. [facility] Clinical Note Previous notes reviewed today in [...] with more than 50% of the total uido-wf-emtt time of the visit in counseling / coordination of care. Yo Morse MD, MS Retail Manager In [employer] Hematology and Medical Oncology [address] [place], [place] [id number] Labs and Imaging Reviewed outside records provided prior to this visit and those in [facility]. as diagnosed by Dr. Morse [facility]. No evidence of a paraprotein. Negative hepatitis [...] in concerned with recent CT done in [facility] with a left 8 mm nodule. Appears to be stable overall. Will consider following more closely but has multiple reasons for inflammatory changes included untreated sleep apnea and COVID-19 in 04/2020. Feels in pain from hip injection and has a UTI. Feels fatigued and just out of it . Left lung nod (more content not included)...[facility]01-11-2023 Instructions* Patient Instructions* Jose Bryant MD - 06/10/2022 11:35 AM EST Keep appointment scheduled in September with Labs same day. Continue oral Iron CT chest in one year with labs also. Will order at next visit in September RTC in 6 months - same day as labs - CBC, CMP, Anemia documented in [facility] History of Present illness Narrative* Jose Bryant MD - 06/10/2022 11:26 AM EST Images from the original note were not included. NAME: Jessica Ferrera CLINIC NO.: [id number] DATE OF SERVICE: June 10, 2022 (giuliano) Some elements in this clinic note that [...] 1 year. Will discuss in 6 months. [facility] Clinical Note Previous notes reviewed today in [...] with more than 50% of the total ajsu-eb-spmt time of the visit in counseling / coordination of care. Yo Morse MD, MS Retail Manager In [employer] Hematology and Medical Oncology [address], [place] [address] Labs and Imaging Reviewed outside records provided prior to this visit and those in [facility]. as diagnosed by Dr. Morse [facility]. No evidence of a paraprotein. Negative hepatitis [...] in concerned with recent CT done in [facility] with a left 8 mm nodule. Appears [...] deviated septum noted low platelets. Colonoscopy in [place] 2016 with many polyps, recommended repeat. Colonoscopy in 2017 in [place]. June 27, 2018 She notes recent severe [...] 5 miles per day. Had trip to [place] in November for chest pain. CT chest [...] Other: See Comments Burning of skin Nitrofurantoin Clarke* GI Upset, Hives, Itching, Rash, Swelling Penicillins [...] CYSTO.PANENDO 06/05/2021 CYSTOURETHROSCOPY 06/20/15 Cystoscopy; Dr. Palmer; [place] REJ [facility] HX Left HYSTERECTOMY HX 1994 left overy and hysterectomy. ROTATOR CUFF REPAIR [...] which included preparing to see the patient, lauo-rs-yjly patient care, completing clinical documentation, performing a medically appropriate examination, counseling and educating the patient/family/caregiver, ordering medications, tests, or p rocedures, and independently interpreting results (not separately reported). Jose Bryant MD, CPE Hematology and Oncology Services Provided at: [place], [place] CC: Ricardo Hooper MD [address] [facility] [id number] documented in this encounterKettering [facility]11-15-2022 Miscellaneous Notes* Telephone Encounter - Patricia Eugene [...] advise. Consuelo Tavares RN documented in this encounterKettering Health Hamilton11-10-2022 NoteHNO ID: [id number] Author: Jose Bryant MD Service: ? Author Type: Physician Type: Progress Notes Filed: 04/14/2022 1:16 PM Note Text: NAME: Jessica Ferrera CLINIC NO.: [id number] DATE OF SERVICE: April 09, 2022 ([facility]) Some elements in this clinic note that [...] 6 months Call results from today's labs (application support manager please) CT chest in one year with labs also. Will order at next visit RTC in 6 months - same day as labs - CBC, CMP, Anemia Continue antibiotics as ordered by PCP. PULMONARY nodule is stable - can reassess in 1 year. Will discuss in 6 months. [facility] Clinical Note Previous notes reviewed today [...] with more than 50% of the total asfw-sk-nskb time of the visit in counseling / coordination of care. Yo Morse MD, MS Retail Manager In Trainingframe trimmer Hematology and Medical Oncology [address] [place], [place] [id number] Labs and Imaging Reviewed outside records provided prior to this visit and those in [facility]. as diagnosed by Dr. Morse [facility]. No evidence of a paraprotein. [...] in concerned with recent CT done in [facility] with a left 8 mm nodule. Appears to be stable overall. Will consider following more closely but has multiple reasons for inflammatory changes included untreated sleep apnea and COVID-19 in 04/2020. Feels in pain from hip injection and has a UTI. Feels fatigued and (more content not included)...[facility]11-07-2022 NoteHNO ID: [id number] Author: RT Corine(R) Service: ? Author Type: [...] BY: RT Corine(R) April 06, 2022 9:13 [facility]11-07-2022 NoteHNO ID: [id number] Author: Heike Ortiz RN Service: ? Author [...] Ferrera DATE: April 06, 2022 TIME: 9:23 [facility]09-22-2022 Miscellaneous Notes* Telephone Encounter - Patricia Eugene RN - 02/19/2022 9:[address] Alberto reviewed labs rec'd from [facility] this morning. He will discuss with patient all results on 03/12 appt. Nothing to address at this time. Patricia Eugene RN * Telephone Encounter - Dedra Carr [facility] - 02/19/2022 8:11 AM EDT Records scanned. * Telephone Encounter - Angle Hawk Pss - 02/18/2022 4:03 PM EDT Appointment moved to after CT on 03/12, pt notified. * Telephone Encounter - Patricia Eugene RN - 02/18/2022 3:52 PM EDT Pt aware can move pt up to Mar [address]. Pt states she also had a recent back surgery at [facility], in [place] with additional lab work. She is okay with getting all the results at her appt, unless you need to go over anything with her after reviewing all the results. PIPPA: review Dr Villasenor labs in the lab tab. I will have Rudi Carr get the additional labs from [facility] for you to review as well. 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, On disability 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 Leisure & Hobbies: Travel Vision/Hearing Vision Vision: [...] Strength RLE Strength RLE: WFL Comment: 10/02 Allison LE's Strength LLE Strength LLE: WFL Strength RUE Comment: See OT cole for B UE MMT Balance Sitting: Intact [...] 90' x 1 Comments: Back to EOB,awaiting IMPORT EXPORT COORDINATOR for hygiene activities Balance Posture: Good Sitting [...] 921 (Treatment time 26 minutes) Time Out 0958 Minutes 36 Ruy Stratton PT * Quique Mojica MD - 02/17/2022 7:49 AM EDT [facility] Ortho Spine Attending Progress Note 02/17/2022 7:49 AM Jessica Ferrera [id number] SUBJECTIVE: doing well. Has been up walking. [...] D/C plan for home today 5. Ortho Xobw-gf-Dnhq Discussion of Medical Necessity for Use of [...] provide stability after surgery. Quique Mojica MD [facility] Orthopaedics and Spine Spine Surgeon [phone] * Regina Pizarro RN - 02/16/2022 6:26 [...] evaluate in AM documented in [facility] [employer] Phone: [phone] 103-260809-19-2022 Hospital Discharge instructions* Discharge Instructions* Quique Mojica [...] redness, swelling or drainage after 4 days [phone] May shower in 2 days No tub baths for 6 weeks Quique Mojica MD [facility] Orthopaedics and Spine Spine Surgeon Keep it Clean - Post-Operative Home instructions These instructions are to help you have the best possible recovery after your surgical procedure. [facility] is here to support you. If you have questions, call [phone] Wednesday through Wednesday from 7:30AM to 8:30PM to speak to a nurse. If you need to speak to someone outside of these hours, call your physician. Incision Do s and Don ts Do wash hands before and after dressing changes or when you have had any contact with your incision. Use hand fire tender or antibacterial soap. Do keep your incision [...] through Care Everywhere. * Lumbar Laminectomy: Post-op (Zambian) * Constipation (Zambian) * DVT (Deep Vein Thrombosis): General Info (Zambian) * acetaminophen and oxycodone (Zambian) * tizanidine (Zambian) * ondansetron (oral) (Zambian) * docusate and senna ([place]ambian) documented in this encounterBON [email or web address] Work Phone: [phone]) 784-675806-23-2022 History of Present illness Narrative* Monica Wallace Ma - 11/20/2021 9:33 AM EDT PVR = 0 ml Via bladder scan. * Dallas Palmer MD - 11/20/2021 9:30 AM EDT [facility] ESTABL[facility] UROLOGY VISIT CENTER FOR [...] Cystoscopy; Dr. Palmer; Leanne KENDALL [facility] HX Left HYSTERECTOMY HX 1995 [...] antibiotic Dallas Palmer MD documented in this encounterKettering Health Hamilton06-08-2022 NotePROCEDURE: XR FOOT LT MIN 3 VIEWS COMPARISON: 10/01/2021 HISTORY: Pain in left foot FINDINGS: BONES:No acute fracture or dislocation. Moderate enthesopathic spurring of the calcaneus at the plantar insertion. Mild degenerative changes most significant in the midfoot SOFT TISSUES:Negative. No visible soft tissue swelling. EFFUSION:None visible. OTHER: Negative. IMPRESSION: Stable degenerative changes Electronically authenticated by: JOSE ALBERTO STEPHEN Date: 2021-11-05 17:28[facility] [place] [facility]* Diagnosis Screening for genitourinary condition- Primary Screening for other and unspecified genitourinary condition Recurrent UTI Urinary tract infection, site not specified Vaginal atrophy Postmenopausal atrophic vaginitis documented in this encounter [facility] noteNo assessment information availableUc West [facility] Hospital Work Phone: Evaluation note* Diagnosis Spinal stenosis, lumbar region with neurogenic claudication- Primary Lumbar stenosis with neurogenic claudication Spinal stenosis, lumbar region, with neurogenic claudication Hypertension Unspecified essential hypertension GERD (gastroesophageal reflux disease) Esophageal reflux documented in this encounter [facility] Work Phone: evaluation note* Diagnosis Iron deficiency anemia secondary to inadequate dietary iron intake documented in this encounter [facility] [place] [facility]* Diagnosis Iron deficiency anemia secondary to inadequate dietary iron intake- Primary Pulmonary nodules Other nonspecific abnormal finding of lung field Mediastinal lymphadenopathy Enlargement of lymph nodes Idiopathic cytopenia of undetermined significance (ICUS) documented in this encounter [facility] [place] [facility]* Diagnosis Iron deficiency anemia secondary to inadequate dietary iron intake- Primary Thrombocytopenia (HCC) Thrombocytopenia, unspecified Lung nodules Other nonspecific abnormal finding of lung field documented in this encounter [facility] [place] [facility]* Diagnosis Thrombocytopenia (HCC)- Primary Thrombocytopenia, unspecified Iron deficiency anemia secondary to inadequate dietary iron intake documented in [facility] Narrative No data available for this section [facility] No data available for this section [facility] HospitalReason for visit Narrative* Auth/Cert Specialty Diagnoses / Procedures Referred By Prudencio agosto Referred To Contact Diagnoses Lumbar spinal stenosis LUMBAR SPINAL STENOSIS Procedures CT LAMINECTOMY,>2 SGMT,LUMBAR LAMINEC/FACETECT/FORAMIN,MARCILA MBAR 1 SEG L3-4 LUMBAR LAMINECTOMY POSTERIOR ABOVE PREVIOUS L 4-5 FUSION Quique Mojica MD [address] [place] [address] [facility] [address] [place] [address] Referral ID Status Reason Start Date Expiration Date Visits Re quested Visits Authorized [id number] 1 1 [employer] Work Phone: Summary Purpose Family History No Family History Records Found Relationship Condition Age at Onset Recorded Date/T kentrell father Hypertension Unknown Heart disease Unknown Malignant neoplasm Unknown Not Specified Hypertension Unknown Advance Directives No Advanced Directives Records FoundDocuments on File Type Date Recorded 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 Advance Directive(s) 07/22/2018 3:03 PM Ad vanced Directives Advance Directive Response Recorded Date/ Time Advance Directives No November 15 4:00pm Latest Code Status on File Code Status Date Activated Date Inactivated Comments Full Code 02/16/2022 6:19 PM Chief Complaint and Reason for Visit Chief Complaint CTDZ Screening Chief Complaint Screening Reason for Referral Specialty Diagnoses / Procedures Referred By Contlola t Referred To Contact CT IMAGING Diagnoses Lung nodules Procedures CT CHEST W IVCON DIAGNOSTIC COMPUTED TOMOGRAPHY THORAX W/CONTRAST Jose Bryant MD [address] [place] [address] [place] [address] Ct Imaging Referral ID Status Reason Start Date Expiration Date Visits Requested Visits Authorized [id number] Authorized Auto-Generat ed Referral 3 11/06/2023 1 1 Additional Source Comments INFORMATION SOURCE (unrecogn ized section and content) DATE CREATED AUTHOR 09/24/[address] [facility] dical Specialist DATE CREATED AUTHOR AUTHOR'S ORGANIZ ATION 10/09/2022 [facility] DATE CREATED AUTHOR AUTHOR'S ORGANIZ ATION 10/12/2022 Rendon Bee [facility] DATE CREATED AUTHOR AUTHOR'S ORGANIZ ATION 01/12/2023 [facility] DATE CREATED AUTHOR AUTHOR'S ORGANIZ ATION 03/01/2023 [facility] DATE CREATED AUTHOR AUTHOR'S ORGANIZ ATION 04/01/2023 [facility] DATE CREATED AUTHOR AUTHOR'S ORGANIZ ATION 06/21/[address] [facility] dical Specialists EPIC Source Comments (unrecognize d section and content) In the event this informatio n is protected by the Federal Confidentiality of Alcohol and Drug Abuse Patient Records regulations: The Federal rules restrict any use of the information to criminally investigate or prosecute any alcohol or drug abuse patient.[facility] HamiltonIn the event this information is protected by the Federal Confidentiality of Alcohol and Drug Abuse Patient Records regulations: The Federal rules restrict any use of the information to criminally investigate or prosecute any alcohol or drug abuse patient.[facility] HamiltonIn the event this information is protected by the Federal Confidentiality of Alcohol and Drug Abuse Patient Records regulations: The Federal rules restrict any use of the information to criminally investigate or prosecute any alcohol or drug abuse patient.[facility] HamiltonIn the event this information is protected by the Federal Confidentiality of Alcohol and Drug Abuse Patient Records regulations: The Federal rules restrict any use of the information to criminally investigate or prosecute any alcohol or drug abuse patient.[facility] HamiltonIn the event this information is protected by the Federal Confidentiality of Alcohol and Drug Abuse Patient Records regulations: The Federal rules restrict any use of the information to criminally investigate or prosecute any alcohol or drug abuse patient.[facility] HamiltonIn the event this information is protected by the Federal Confidentiality of Alcohol and Drug Abuse Patient Records regulations: The Federal rules restrict any use of the information to criminally investigate or prosecute any alcohol or drug abuse patient.[facility] Reason for Visit (unrecogniz ed section and [...] Provider Active Referral Self Attending Provider Active Switch Operators Supervisor Relationship Specialty Start Date End Date Ricardo Hooper MD [address] [id number] PCP - General Family Practice 01/11/19 Madisyn Lara MD [address] [place] [address] Primary Staff Physician Cardiology 08/16/18 Team Status: Inactive Member Role Status Dates Ricardo Hooper MD Primary Care Provider Active Rocky Villasenor MD Attending Provider Active Team Status: Inactive Member Role Status Dates Ricardo Hooper MD Primary Care Provider Active Enmanuel Burton DO Attending Provider Active Switch Operators Supervisor Relationship Specialty Start Date End Date Ricardo Hooper MD [address] [id number] PCP - General Family Medicine 09/16/21 Switch Operators Supervisor Relationship Specialty Start Date End Date Ricardo Hooper MD [address] [id number] PCP - General Family Medicine 09/16/21 Switch Operators Supervisor Relationship Specialty Start Date End Date Ricardo Hooper MD [address] [id number] PCP - General Family Medicine 01/11/19 Madisyn Lara MD [address] [address] Primary Staff Physician Cardiology 08/16/18 Switch Operators Supervisor Relationship Specialty Start Date End Date Ricardo Hooper MD [address] [place] [address] PCP - General Family Medicine 01/11/19 Madisyn Lara MD [address] [address] Primary Staff Physician Cardiology 08/16/18 Switch Operators Supervisor Relationship Specialty Start Date End Date Ricardo Hooper MD [address] [id number] PCP - General Family Medicine 01/11/19 Madisyn Lara MD [address] [place] [phone] Primary Staff Physician Cardiology 08/16/18 Switch Operators Supervisor Relationship Specialty Start Date End Date Ricardo Hooper MD PCP - General Family Medicine 01/11/19 Madisyn Lara MD [address] [address] Primary Staff Physician Cardiology 08/16/18 Switch Operators Supervisor Relationship Specialty Start Date End Date Ricardo Hooper MD PCP - General Family Medicine 01/11/19 Madisyn Lara MD [address] [address] Primary Staff Physician Cardiology 08/16/18 Goals (unrecognized [...] Wed02/16/22 at 2200, For 3 doses, Post-op 4 (Given - Provider: Becky Villavicencio RN) 0524 (Given - Provider: Becky Villavicencio RN)1337 (Given - Provider: Regina Pizarro RN) fluticasone (FLONASE) 50 MCG/ACT nasal spray 2 spray 2 spray, Each Nostril, DAILY, First dose on Wed02/16/22 at 1845, Until Discontinued, Please select a reason the therapeutic interchange was not accepted: Okay for Pharmacy to Substitute, Post-op 1832 (Not Given - Provider: Regina Pizarro RN [...] on Wed02/16/22 at 1845, Until Discontinued, Post-op 1907 (Given - Provider: Regina Pizarro RN) pantoprazole [...] on Wed02/16/22 at 1845, Until Discontinued, Post-op 1907 (Not Given - Provider: Becky Villavicencio RN - Reason: Patient/family refused) 0948 (Given - Provider: Regina Pizarro RN) sennosides-docusate sodium (SENOKOT-S) 8.6-50 MG tablet 1 tablet 1 tablet, Oral, 2 TIMES DAILY, First dose on Wed02/16/22 at 2100, Until Discontinued, Post-op 1907 (Given - Provider: Regina Pizarro RN) 0948 [...] or Central Line = 20 mL/lumen, Post-op 2035 (Not Given - Provider: Becky Villavicencio RN - Reason: IV Fluid Infusing) 0850 (Not Given - Provider: Regina Pizarro RN - Reason: IV Fluid Infusing)2100 (Due) tiZANidine (ZANAFLEX) tablet 4 mg (COMPLETED) 4 mg, Oral, ONCE, 1 dose, On Wed02/16/22 at 1100, Pre-op (day of surgery) 1102 (Given - Provider: Paula Isabel, NING) vancomycin (VANCOCIN) 1,500 mg in dextrose 5 % 250 mL IVPB (COMPLETED) 1,500 mg, IntraVENous, EVERY 12 HOURS, 1 dose, First dose on Wed02/16/22 at 1845, Antimicrobial Indications: Surgical Prophylaxis, Post-op 2252 (New Bag - Provider: Becky Villavicencio, NING) 0022 (Stopped - Provider: Becky Villavicencio RN) [...] surgery) 1126 (New Bag - Provider: Paula Isabel, NING) 1157 (Stopped - Provider: Regina Pizarro, NING) PRN Medication Order 02/15/2022 02/16/2022 02/17/2022 0.9 [...] Muscle spasms, Post-op bupivacaine-EPINEPHrine PF (MARCAINE-w/EPINEPHRINE) 0.5% -1:303238 injection (CANCELED) PRN, Starting on Wed02/16/22 at [...] only 1700 (Given - Provider: Patito Palafox RN)1709 (Given - Provider: Patito Palafox RN) hydrOXYzine [...] of each other unless specifically ordered., Post-op 2249 (Given - Provider: Becky Villavicencio RN) morphine sulfate (PF) injection 4 mg(Linked Group 1) 4 mg, IntraVENous, EVERY 2 HOURS PRN, Starting on Wed02/16/22 at 181, Until Discontinued, Pain Severe (7-10), If oral [...] 6 HOURS PRN, Starting on Wed02/16/22 at 181, Until Discontinued, Nausea, Vomiting, Administer if oral route cannot be used., Post-op oxyCODONE-acetaminophen (PERCOCET) 5-325 MG per tablet 1 tablet(Linked Group 3) Mg/kg dosing is based on the oxycodone component., 1 tablet, Oral, EVERY 4 HOURS PRN, Starting on Wed02/16/22 at 181, Until Discontinued, pain 2-5, Maximum dose of acetaminophen is 4000 mg from all sources in 24 hours., Post-op 2043 (See Alternative - Provider: Becky Villavicencio RN) 011 (See Alternative - Provider: Becky Villavicencio RN)0523 [...] all sources in 24 hours., Post-op 2043 (Given - Provider: Becky Villavicencio RN) 011 (Given - Provider: Becky Villavicencio RN)0523 (Given [...] 6 HOURS PRN, Starting on Wed02/16/22 at 181, Until Discontinued, Nausea, Vomiting
Administer if oral [...] BE BASED ON THE PRIMARY CLINICAL RECORDS. [facility]. provides no warranty or guarantee of the accuracy or completeness of information in this document.
--- NOTE | 2023-06-23 09:31 | RT_ITS ---
[facility] Test Date: 2023-06-23 Pat Name: QUANG SALDIVAR Department: Room: - Gender: Female Block Inspector: Brandon Bermudez RRT : 1955 Requested By: [id number] Order Number: [id number] Reading MD: Nathan Carlos Interpretive Statements Spirometry was completed according to ATS criteria. Findings were considered accurate and reproducible. No bronchodilator was administered due to normal spirometric values. No prior studies available for comparison. Spirometry: -FEV1/FVC: Normal @ 79% -FEV1: Normal @ 89% -FVC: Normal @ 87% Flow-volume loop: -Normal shape Impressions: -Normal spirometry. Depending on clinical context, consider ordering full PFT or methacholine challenge. Clinical correlation required. Electronically Signed On 06-23-2023 17:38:23 EST by Nathan Carlos
== END 2023-06-23 08:15 | disposition home or self-care (01) ==
LOC: RAD 08:14
PROVIDERS: PCP Family Medicine; Visit Provider Nurse Practitioner Family
DX: J20.9 Acute bronchitis, unspecified (principal)
CPT/HCPCS: 71046; 94010

== ENCOUNTER 2023-06-30 12:26 | Outpatient (OUT) | payer MEDICARE, SELFPAY ==
--- NOTE | 2023-06-30 12:29 | MR_ITS ---
[address] [address] Patient Name: QUANG SALDIVAR MRN: [id number] date: 1955 Sex: F Assigned Patient Location: MRI Current Patient Location: MRI Accession/Order Number: [id number] Exam Date: 06/30/2023 12:45 Report Date: 06/30/2023 21:18 At the request of: DALIA VIGIL Procedure: MR hip LT wo con EXAM: MR hip LT wo con CLINICAL INDICATION: acute hip pain, left M25.552 COMPARISON: None TECHNIQUE: MRI of the left hip performed with sagittal, coronal and axial images. FINDINGS: Fluid: Hip joint fluid is within normal limits. Alignment: Normal. Bones (other than subarticular marrow): No acute fractures or destructive osseous lesions. No signs of avascular necrosis in the femoral head. Articular Cartilage: Femoral: Mild chondrosis. Acetabular: Mild chondrosis. Labrum: The acetabular labrum is limited in evaluation at non-arthrographic technique. No prominent paralabral cysts are identified. Capsule/ligaments: Intact. Muscles/tendons/bursae: Gluteus Minimus: Mild distal insertional tendinosis. Gluteus Medius: Mild distal insertional tendinosis. Greater Trochanteric Bursa: No large fluid. Small amounts of fluid can have variable clinical significance. Proximal Hamstrings: Intact. Iliopsoas: Intact. Iliopsoas Bursa: No prominent fluid. Rectus Femoris: Intact. Piriformis: Intact Muscles: Unless otherwise described above, the muscles about the hip are maintained in signal and bulk. Non-musculoskeletal soft tissues: Lymph nodes: Regional lymph nodes have unremarkable imaging appearance. Pelvic Ascites: No abnormal ascites detected in visualized aspect of the pelvis. Other: Diverticulosis coli. MR/MR hip LT wo con IMPRESSION: Mild degenerative changes of the left hip. 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 Electronically authenticated by: RISA IYER Date: 06/30/2023 21:18
--- OUTSIDE RECORDS SUMMARY | 2023-06-30 12:30 | XMS_ITS | CCD ---
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 Officer [employer] Team Name Role Phone Ricardo Hooper MD Primary Care Provider [phone] Madisyn Lara MD Unavailable MD Ricardo Hooper Primary Care Provider [phone] MD Rocky Villasenor Attending Provider DO Enmanuel Burton Attending Provider Ricardo Hooper MD Primary Care Provider [phone] Ricardo Hooper MD Primary Care Provider [phone] Madisyn Lara MD Unavailable Ricardo Hooper MD Primary Care Provider [phone] Marco DANGELO, Madisyn Reagan Unavailable Ricardo Hooper MD Primary Care Provider [phone] SANDIE Doty, DR SILVA Admitting Unavailable ANIY ., DR SILVA Consulting Unavailable HOY ., DR SILVA Attending Unavailable HOY ., DR SILVA Primary Care Unavailable HOY ., DR SILVA Admitting Unavailable HOFely ., DR SILVA Consulting Unavailable SANDIE ., [...] FARRELL Consulting Unavailable VERNELL FARRELL Attending Unavailable SANDIE ., DR SILVA Primary Care Unavailable JAMI, [...] Primary Care Unavailable EVERARDO PERALTA Attending Unavailable FOWLER, DR JOSE ALBERTO Long Consulting Unavailable EVERARDO PERALTA Admitting Unavailable EVERARDO PERALTA Consulting Unavailable VERNELL FARRELL Consulting Unavailable VERNELL FARRELL Attending Unavailable JAMI, VERNELL Admitting Unavailable SANDIE ., DR SILVA Primary Care Unavailable HOY ., DR SILVA Primary Care Unavailable CLARI GILLETTE Admitting Unavailable AIDE LONDON Consulting Unavailabl e CLARI GILLETTE Attending Unavailable CECE VOGT Admitting Unavailable HOFely ., DR SILVA Primary Care Unavailable CECE VOGT Attending Unavailable HOY ., DR SILVA Admitting Unavailable HOY ., DR SILVA Attending Unavailable HOY ., DR SILVA Primary Care Unavailable LEOBARDO BRASHER Attending Unavailable QUENTIN ., LEOBARDO Admitting Unavailable HOFely ., DR SILVA Primary Care Unavailable LEOBARDO BRASHER Consulting Unavailable DIEGO ., DR IRELAND Attending Unavailable DIEGO ., DR IRELAND Admitting Unavailable SANDIE ., DR SILVA Primary Care Unavailable DIEGO Doty, DR IRELAND Consulting Unavailable Ricardo Hooper Primary Care Physician Rocael Wayne Attending Unavailable QUIQUE MOJICA Referring Unavailable HOY, RICARDO M Primary Care Unavailable QUIQUE MOJICA Referring Unavailable HOY, RICARDO M Primary Care Unavailable QUIQUE MOJICA Admitting Unavailable KRSHIVOFCLYDEIG Attending Unavailable BLOOD, JUVENAL P Consulting Unavailable SANDIE RICARDO Boucher Primary Care Unavailable MARVA HOBBS Consulting Unavailable JAIRVASU PATTERSONBEDIN Consulting Unavailable KRISTOF, QUIQUE Admitting Unavailable KRISTOF, QUIQUE Attending Unavailable BLOOD, JUVENAL P Consulting Unavailable RICARDO HOOPER M Primary Care Unavailable HOMER KARIMI Consulting Unavailable MD Ricardo Hooper Primary Care Provider [phone] Self, Referral Attending Provider Unavailable Ricardo Hooper Primary Care Unavailable Self, Referral Attending Unavailable Self, Referral Admitting Unavailable Madisyn Lara MD Unavailable RICARDO HOOPER Primary Care Unavailable DALLAS LOMBARDO Attending Unavailable RICARDO HOOPER Primary Care Unavailable ABHYANKAR, JOSE Referring Unavailable RICARDO HOOPER Primary Care Unavailable RICARDO HOOPER Primary Care Unavailable ABHYANKAR, JOSE Referring Unavailable GRACYAR, JOSE Attending Unavailable DALIA VIGIL Attending Unavailable DALIA VIGIL Referring Unavailable Allergies Allergy Classification Reported Allergen(s) Allergy Type Date of Onset Reaction(s) Facility (11 sources) Ciprofloxacin; Translations: [ciprofloxacin] Drug Allergy 01-31-20 13 Intolerance, Respiratory function (observable entity), Joint pain (finding) [facility] (11 sources) Clindamycin; Translations: [clindamycin] Drug Allergy 01-24-20 15 Vomiting [facility] (13 sources) Doxycycline; Translations: [doxycycline] Drug Allergy 05-14-20 20 Vomiting, Nausea And Vomiting [facility] (8 sources) NITROFURANTOIN, MACROCRYSTALS / Nitrofurantoin, Monohydrate; Translations: [nitrofurantoin] Drug Allergy 10-23-19 22 GI Upset, Hives, Itching, Rash, Swelling [facility] (6 sources) Penicillins; Translations: [PENICILLINS] Drug Allergy 01-31-20 13 Shortness of Breath [facility] (8 sources) tioconazole; Translations: [tioconazole topical] Drug Allergy 01-23-20 15 Other: See Comments [facility] (7 sources) Skin Cleanser Combination No.17; Translations: [SKIN CLEANSER COMBINATION NO.17] Drug Allergy 09-02-19 18 Unknown [facility] (5 sources) Miconazole; Translations: [miconazole] Drug Allergy 01-31-20 13 vaginal burning [facility] (2 sources) Nitrofurantoin Drug Allergy 01-27-20 22 Rash [facility] (2 sources) Clindamycin/Lincom ycin Propensity to adverse reactions to drug 01-31-20 13 [facility] Work Phone: (5 sources) Penicillins Drug Allergy 01-24-20 15 Shortness of Breath [facility] (6 sources) levoFLOXacin; Translations: [levofloxacin] Drug Allergy 04-09-20 22 Myalgia, Joint swelling (finding) [facility] (1 source) Ciprofloxacin Drug Allergy 03-16-20 14 [facility] (1 source) Clindamycin Drug Allergy 03-16-20 14 [facility] (1 source) Doxycycline Drug Allergy 05-14-20 20 [facility] (3 sources) levoFLOXacin; Translations: [Levaquin] Drug Allergy 04-28-20 22 [facility] (1 source) Miconazole Drug Allergy [facility] (3 sources) Nitrofurantoin; Translations: [Macrobid] Drug Allergy 04-28-20 22 [facility] (1 source) Penicillins Drug allergy (disorder) 03-16-20 14 [facility] (2 sources) Penicillin; Translations: [penicillin] Drug Allergy [facility] (1 source) tioconazole; Translations: [tioconazole topical] Drug Allergy 01-23-20 15 [facility] (1 source) Clindamycin Drug Allergy 12-19-19 21 [facility] (1 source) Doxycycline Drug Allergy 12-19-19 21 [facility] (1 source) Penicillins Drug allergy (disorder) 12-19-19 21 [facility] Medications Current Medications Medication Drug [...] 1 tablet by mouth at bedtime Biotin 18552 MCG TABS Take 1 tablet by mouth [...] days docusate sodium 50 mg / sennosides, shelter 8.6 mg oral tablet (2 sources) Start: [...] sources) Angiotensin Converting Enzyme Inhibitor Start: 10-10-19 16 End: 02-18-20 take 20 mg by mouth once daily Lisinopril Active 20 MG PO Daily May 17, 2018 1:00am Comment on above: lisinopril 20 mg tab let Take 1 tablet every day by oral route. mometasone furoate 0.05 mg/actuat metered dose nasal spray (3 sources) Corticosteroid Start: 12-19-19 Mometasone (Nasonex) 50 mcg/actuation [place],Non-Aerosol Active 2 SPRAY INTRANASAL Daily December 18, [...] PO Bedtime May 17, 2018 1:00am sennosides, shelter 8.6 mg oral tablet (2 sources) Start: [...] End: 02-16-2022 acetaminophen (TYLENOL) tablet 1,000 mg [id number] 200 actuat albuterol 0.09 mg/actuat metered dose [...] uted for esomeprazole Post-op polyethylene glycol 3350 12261 mg powder for oral solution (1 source) [...] 01-11-2023 Episodic Other aftercare (1 source) Other director long term care (current) drug therapy; Translations: [OTH DETENTION CURRENT DRUG THERAPY] Onset: 10-09-2022 Episodic Other [...] MYRINGITIS LEFT EAR] Onset: 10-09-2022 Episodic Other lower respiratory disease (1 source) Other nonspecific abnormal finding of lung field; Translations: [Lung nodules] Onset: 03-31-2023 Episodic Other non-traumatic joint disorders (4 sources) [...] OTH RSP MANF] Onset: 04-30-2022 Episodic Lymphadenitis (7 sources) Mediastinal lymphadenopathy; Translations: [Localized enlarged lymph [...] organs, unspecified] Onset: 01-15-2021 01-15-2021 Episodic Other lower respiratory disease (8 sources) Multiple nodules of lung; Translations: [Other nonspecific abnormal finding of lung field] Onset: 01-15-2021 01-15-2021 Episodic Other nervous system disorders (1 [...] Test Name Value Interpretation Reference Range Facility CNOVon 06-24-2023 CNOV Office Visit (UROLAV ) JESSICA FERRERA ([id number]) 1955 F Date Time Provider Department 06/24/23 9:00 AM DALLAS LOMBARDO UROLAV During your visit today, we recorded the following information about you: Monica Wallace Ma 06/24/2023 12:13 PM Signed PVR = 0 ml Via bladder scan. Dallas Lombardo MD 06/24/2023 12:13 PM Signed [facility] UROLOGY VISIT Follow Up [facility] PATIENT HISTORY AND PHYSICAL EXAM PATIENT INFO: Jessica Ferrera is a 67 year old female. HISTORY: Last OV with Dr. Lombardo 11/20/2021 1. 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 Had UTI in November and March. Pt brought records of March urine culture, treated with outpatient IV antibiotics. Feels like she has a yeast infection today. Feels pressure in abdomen when she has a UTI. No allergy testing for antibiotics. QUESTIONNAIRE: Questionnaire: [facility] Ambulatory Visit Intake Questionnaire Question Answer Have you had any unintentional weight loss? No Do you have concerns about personal safety or safety in the home? No Have you had 2 falls in the last year or 1 fall with injury or currently using an ambulatory assistive device (Walker, Cane, Wheelchair, Crutches, etc.) No Are you having pain associated with this visit? Yes What is your Pain Level? 6 Pain Location Abdomen Pain Description Aching Pressure Pulsating Throbbing Pain Duration Amount of Time Duration Units Days Pain Frequency Intermittent Intervention/Comfort measure Pain Comments Questionnaire: [facility] Additional Demo Question Answer Is this visit related to an accident, other than Workers' Compensation? No Is this visit related to Workers' Compensation? No Do you need an crabber? No Questionnaire: [facility] Promis 10 Adult Short Form V1.0 Global Health Question Answer In the past 7 days In general, would you say your health is: Good In general, would you say your quality of life is: Very good In general, how would you rate your physical health? Good In general, how would you rate your mental health, including your mood and your ability to think? Excellent In general, how would you rate your satisfaction with your social activities and relationships? Very good In general, please rate how well you carry out your usual social activities and roles. (This includes activities at home, at work and in your community, and responsibilities as a parent, child, spouse, employee, friend, etc.) Excellent To what extent are you able to carry out your everyday physical activities such as walking, climbing stairs, carrying groceries, or moving a chair? Completely In the past 7 days How often have you been bothered by emotional problems such as feeling anxious, depressed or irritable? Rarely How would you rate your fatigue on average? None How would you rate your pain on average? 5 PROMIS Adult Short Form-Global Health Score (Physical) 50.8 PROMIS Adult Short Form-Global Health Score (Mental) 56 3 1 Questionnaire: Val Provider Understanding Current Health Urology Question Answer These questions will help my provider understand my health Agree Questionnaire: Val Document/Image Upload Question Answer Photo ID If there are images or documents you'd like to share with your provider during your visit, you may upload up to a total of five files. For body images use the pencil icon to label your image. When labeling the image, please use the following format: The name of the body part followed by the side. For example, Back of Right Forearm or Lower Left Leg. HISTORIES: PAST MEDICAL HISTORY Diagnosis Date Blood clotting disorder (HCC) Lupus Anticoagulant- last (2) were negative Endometriosis Fibromyalgia Frequent UTI Iron deficiency anemia secondary to inadequate dietary iron intake 04/10/2022 Raynaud disease Thrombocytopenia (HCC) PAST SURGICAL HISTORY Procedure Laterality Date ANKLE SURGERY HX Left x 3 APPENDECTOMY APPENDECTOMY HX ARTHRP KNE CONDYLEANDPLATU MEDIALANDLAT COMPARTMENTS Left and Right CARPAL TUNNEL bilateral CYSTO.PANENDO 06/05/2021 CYSTOURETHROSCOPY 06/20/15 Cystoscopy; Dr. Lombardo; Leanne KENDALL [facility] ELBOW SURGERY HX Left HYSTERECTOMY HX 1994 left overy and hysterectomy. ROTATOR CUFF REPAIR 2013,2014 Left x 2 SHOULDER SURGERY HX Right TONSILLECTOMY HX TONSILLECTOMY HX Social History Tobacco Use Smoking (more content not included)... Normal [facility] CBC W Auto Differential pane l (Bld)on 03-31-2023 Basophils (Bld) [#/Vol] 0.20 10*3/uL High <0.11 [facility] Comment on above: Order Comment: Speci men Type: BLOOD SPECIMEN Ordering Facility: [facility] Address: [address] [place], [place] [address] Performed By: #### 5 0190-8, 9, 2275-08, 2283-12 #### [facility] CLIA [id number] [address] [place] [address] [place] Basophils/100 WBC (Bld) 3.0 % Normal [facility] Comment on above: Order Comment: Speci men Type: BLOOD SPECIMEN Ordering Facility: [facility] Address: [address] [place] [address] Performed By: #### 5 0190-8, 2132-01, 2275-08, 2283-12 #### [facility] CLIA [id number] [address] [place] [address] [place] Differential cell count method Nom (Bld) Manual Normal [facility] Comment on above: Order Comment: Speci men Type: BLOOD SPECIMEN Ordering Facility: [facility] Address: [address] [place] [address] Performed By: #### 5 0190-8, 2132-01, 2275-08, 2283-12 #### [facility] CLIA [id number] [address] [place] [address] [place] Eosinophils (Bld) [#/Vol] 0.40 10*3/uL Normal <0.46 [facility] Comment on above: Order Comment: Speci men Type: BLOOD SPECIMEN Ordering Facility: [facility] Address: [address] [place], [place] [address] Performed By: #### 5 0190-8, 9, 2275-08, 2283-12 #### [facility] CLIA [id number] [address] [place] [address] [place] Eosinophils/100 WBC (Bld) 6.0 % Normal [facility] Comment on above: Order Comment: Speci men Type: BLOOD SPECIMEN Ordering Facility: [facility] Address: [address] Performed By: #### 5 0190-8, 9, 2275-08, 2283-12 #### [facility] CLIA [id number] [address] [place] [address] [place] Erythrocyte distribution width (RBC) [Ratio] 14.0 % Normal 11.5-15.0 [facility] Comment on above: Order Comment: Speci men Type: BLOOD SPECIMEN Ordering Facility: [facility] Address: [address] [address] Performed By: #### 5 0190-8, 9, 2275-08, 2283-12 #### [facility] CLIA [id number] [address] [place] [address] [place] Hematocrit (Bld) [Volume fraction] 42.2 % Normal 36.0-46.0 [facility] Comment on above: Order Comment: Speci men Type: BLOOD SPECIMEN Ordering Facility: [facility] Address: [address] [address] Performed By: #### 5 0190-8, 9, 2275-08, 2283-12 #### [facility] CLIA [id number] [address] [place] [address] [place] Hemoglobin (Bld) [Mass/Vol] 13.3 g/dL Normal 11.5-15.5 [facility] Comment on above: Order Comment: Speci men Type: BLOOD SPECIMEN Ordering Facility: [facility] Address: [address] Performed By: #### 5 0190-8, 9, 2275-08, 2283-12 #### [facility] CLIA [id number] [address] [place] [address] [place] Lymphocytes (Bld) [#/Vol] 3.56 10*3/uL Normal 1.00-4.00 [facility] Comment on above: Order Comment: Speci men Type: BLOOD SPECIMEN Ordering Facility: [facility] Address: [address] Performed By: #### 5 0190-8, 2132-01, 2275-08, 2283-12 #### [facility] CLIA [id number] [address] [place] [address] [place] Lymphocytes/100 WBC (Bld) 54.0 % Normal [facility] Comment on above: Order Comment: Speci men Type: BLOOD SPECIMEN Ordering Facility: [facility] Address: [address] [place], [place] [address] Performed By: #### 5 0190-8, 2132-01, 2275-08, 2283-12 #### [facility] CLIA [id number] [facility] [place] [address] [place] MCH (RBC) [Entitic mass] 27.4 pg Normal 26.0-34.0 [facility] Comment on above: Order Comment: Speci men Type: BLOOD SPECIMEN Ordering Facility: [facility] Address: [address] [place], [place] [address] Performed By: #### 5 0190-8, 2132-01, 2275-08, 2283-12 #### [facility] CLIA [id number] [facility] [place] [address] [place] MCHC (RBC) [Mass/Vol] 31.5 g/dL Normal 30.5-36.0 [facility] Comment on above: Order Comment: Speci men Type: BLOOD SPECIMEN Ordering Facility: [facility] Address: [address] [place] [address] Performed By: #### 5 0190-8, 2132-01, 2275-08, 2283-12 #### [facility] CLIA [id number] [address] [place] [address] [place] MCV (RBC) [Entitic vol] 86.8 fL Normal 80.0-100.0 [facility] above: Order Comment: Speci men Type: BLOOD SPECIMEN Ordering Facility: [facility] Address: [address] [place] [address] Performed By: #### 5 0190-8, 9, 4, 8 #### [facility] CLIA [id number] [address] [place] [address] [place] Monocytes (Bld) [#/Vol] 0.66 10*3/uL Normal <0.87 [facility] Comment on above: Order Comment: Speci men Type: BLOOD SPECIMEN Ordering Facility: [facility] Address: [address] [place] [address] Performed By: #### 5 0190-8, 2132-01, 2275-08, 2283-12 #### [facility] CLIA [id number] [address] [place] [address] [place] Monocytes/100 WBC (Bld) 10.0 % Normal [facility] Comment on above: Order Comment: Speci men Type: BLOOD SPECIMEN Ordering Facility: [facility] Address: [address] [place] [address] Performed By: #### 5 0190-8, 2132-01, 2275-08, 2283-12 #### [facility] CLIA [id number] [address] [place] [address] [place] Neutrophils (Bld) [#/Vol] 1.78 10*3/uL Normal 1.45-7.50 [facility] Comment on above: Order Comment: Speci men Type: BLOOD SPECIMEN Ordering Facility: [facility] Address: [address] [place], [place] [address] Performed By: #### 5 0190-8, 9, 2275-08, 2283-12 #### [facility] CLIA [id number] [address] [place] [address] [place] Neutrophils/100 WBC (Bld) 27.0 % Normal [facility] Comment on above: Order Comment: Speci men Type: BLOOD SPECIMEN Ordering Facility: [facility] Address: [address] [place] [address] Performed By: #### 5 0190-8, 9, 2275-4, 8 #### [facility] CLIA [id number] [address] [place] [address] [place] Nucleated RBC (Bld) [#/Vol] 10*3/uL Normal <0.01 [facility] Comment on above: Order Comment: Speci men Type: BLOOD SPECIMEN Ordering Facility: [facility] Address: [address] [place] [address] Performed By: #### 5 0190-8, 9, 2275-08, 2283-12 #### [facility] CLIA [id number] [address] [place] [address] [place] Nucleated RBC/100 WBC (Bld) [Ratio] 0.0 /100 WBC Normal [facility] Comment on above: Order Comment: Speci men Type: BLOOD SPECIMEN Ordering Facility: [facility] Address: [address] [place] [address] Performed By: #### 5 0190-8, 9, 4, 8 #### [facility] CLIA [id number] [address] [place] [address] [place] Ovalocytes LM Ql (Bld) Few Normal [facility] Comment on above: Order Comment: Speci men Type: BLOOD SPECIMEN Ordering Facility: [facility] Address: [address] [place] [address] Performed By: #### 5 0190-8, 9, 2275-08, 8 #### [facility] CLIA [id number] [address] [place] [id number] [address] [place] Platelet mean volume (Bld) [Entitic vol] 10.5 fL Normal 9.0-12.7 [facility] Comment on above: Order Comment: Speci men Type: BLOOD SPECIMEN Ordering Facility: [facility] Address: [address] [place] [address] Performed By: #### 5 0190-8, 2131-9, 6-4, 2283-8 #### [facility] CLIA [id number] [address] [place] [address] [place] Platelets (Bld) [#/Vol] 265 10*3/uL Normal 150-400 [facility] Comment on above: Order Comment: Speci men Type: BLOOD SPECIMEN Ordering Facility: [facility] Address: [address] [place] [address] Performed By: #### 5 0190-8, 9, 2275-4, 8 #### [facility] CLIA [id number] [address] [place] [address] [place] Platelets Estimate (Bld) [#/Vol] Adequate Normal [facility] Comment on above: Order Comment: Speci men Type: BLOOD SPECIMEN Ordering Facility: [facility] Address: [address] [place] [address] Performed By: #### 5 0190-8, 9, 2275-4, 8 #### [facility] CLIA [id number] [address] [place] [address] [place] RBC (Bld) [#/Vol] 4.86 10*6/uL Normal 3.90-5.20 [facility] Comment on above: Order Comment: Speci men Type: BLOOD SPECIMEN Ordering Facility: [facility] Address: [address] [place] [address] Performed By: #### 5 0190-8, 9, 6-4, 2283-8 #### [facility] CLIA [id number] [address] [place] [address] [place] RED CELL MORPH Reviewed: see result s of individual morphologies Normal [facility] Comment on above: Order Comment: Speci men Type: BLOOD SPECIMEN Ordering Facility: [facility] Address: [address] [place] [address] Performed By: #### 5 0190-8, 2132-9, 6-4, 2284-8 #### [facility] CLIA [id number] [address] [place] [address] [place] WBC (Bld) [#/Vol] 6.59 10*3/uL Normal 3.70-11.00 [facility] Comment on above: Order Comment: Speci men Type: BLOOD SPECIMEN Ordering Facility: [facility] Address: [address] [place] [address] Performed By: #### 5 0190-8, 2132-9, 6-4, 2284-8 #### [facility] CLIA [id number] [address] [place] [address] CHEST W IVCONon 3 CT CHEST W IVCON * * *Final Report* * * DATE OF EXAM: Mar 31 2023 9:25AM [facility] 0539 - CT CHEST W IVCON [...] any questions regarding this interpretation, please call [phone]. If you are unable to reach us at the number above, please feel free to contact [facility] at [phone]. [id number] Normal [facility] Comprehensive metabolic 2000 panelon 03-31-2023 Albumin [Mass/Vol] 4.5 g/dL Normal 3.9-4.9 [facility] Comment on above: Order Comment: Speci men Type: BLOOD SPECIMEN Ordering Facility: [facility] Address: [address] [place] [address] Performed By: #### 2 4323-8 #### [facility] CLIA [id number] [address] [place] [address] ALP [Catalytic activity/Vol] 85 U/L Normal 34-123 [facility] Comment on above: Order Comment: Speci men Type: BLOOD SPECIMEN Ordering Facility: [facility] Address: [address] [place] [address] Performed By: #### 2 4323-8 #### [facility] CLIA [id number] [address] [place] [address] ALT [Catalytic activity/Vol] 20 U/L Normal 7-38 [facility] Comment on above: Order Comment: Speci men Type: BLOOD SPECIMEN Ordering Facility: [facility] Address: [address] [phone] Performed By: #### 2 4323-8 #### [facility] CLIA [id number] [address] [place] [address] 16080 Anion gap [Moles/Vol] 9 mmol/L Normal 9-18 [facility] Comment on above: Order Comment: Speci men Type: BLOOD SPECIMEN Ordering Facility: [facility] Address: [address] [phone] Performed By: #### 2 4323-8 #### [facility] CLIA [id number] [address] [place] [address] 37197 AST [Catalytic activity/Vol] 22 U/L Normal 13-35 [facility] Comment on above: Order Comment: Speci men Type: BLOOD SPECIMEN Ordering Facility: [facility] Address: [address] [place] [address] Performed By: #### 2 4323-8 #### [facility] CLIA [id number] [address] [place] [address] 20095 Bilirubin [Mass/Vol] 0.3 mg/dL Normal 0.2-1.3 [facility] Comment on above: Order Comment: Speci men Type: BLOOD SPECIMEN Ordering Facility: [facility] Address: [address] [place] [address] Performed By: #### 2 4323-8 #### [facility] CLIA [id number] [address] [place] [address] 22987 Calcium [Mass/Vol] 9.6 mg/dL Normal 8.5-10.2 [facility] Comment on above: Order Comment: Speci men Type: BLOOD SPECIMEN Ordering Facility: [facility] Address: [address] [place] [address] Performed By: #### 2 4323-8 #### [facility] CLIA [id number] [address] [place] [address] 14117 Chloride [Moles/Vol] 105 mmol/L Normal 97-105 [facility] Comment on above: Order Comment: Speci men Type: BLOOD SPECIMEN Ordering Facility: [facility] Address: [address] [place] [address] Performed By: #### 2 4323-8 #### [facility] CLIA [id number] [address] [place] [address] 27420 CO2 [Moles/Vol] 28 mmol/L Normal 22-30 [facility] Comment on above: Order Comment: Speci men Type: BLOOD SPECIMEN Ordering Facility: [facility] Address: [address] [place] [address] Performed By: #### 2 4323-8 #### [facility] CLIA [id number] [address] [place] [address] 43905 Creatinine [Mass/Vol] 0.98 mg/dL High 0.58-0.96 [facility] Comment on above: Order Comment: Speci men Type: BLOOD SPECIMEN Ordering Facility: [facility] Address: [address] [place] [address] Performed By: #### 2 4323-8 #### [facility] CLIA [id number] [address] [place] [address]994 Creatinine and Glomerular filtration rate.predicted panel (S/P/Bld) 64 mL/min/1.73m??? Normal >=60 [facility] Comment on above: Order Comment: Speci men Type: BLOOD SPECIMEN Ordering Facility: [facility] Address: [address] [place] [address] Result Comment: Abigail mated Glomerular Filtration Rate [...] actual GFR. Performed By: #### 2 4323-8 #### [facility] CLIA [id number] [address] [place] [address] 99568 Glucose [Mass/Vol] 102 mg/dL High 74-99 [facility] Comment on above: Order Comment: Rocio shaffer Type: BLOOD SPECIMEN Ordering Facility: [facility] Address: [address] [place] [address] Result Comment: The [place] Diabetes Association (ADA) provides guidance for cutoff [...] Standards of Medical Care in Diabetes 2016, [place] [employer]. Diabetes Care. 2016.39(Suppl 1). Performed By: #### 2 4323-8 #### [facility] CLIA [id number] [address] [place] [address] 88297 Potassium [Moles/Vol] 4.2 mmol/L Normal 3.7-5.1 [facility] Comment on above: Order Comment: Rocio shaffer Type: BLOOD SPECIMEN Ordering Facility: [facility] Address: [address] [place] [address] Performed By: #### 2 4323-8 #### [facility] CLIA [id number] [address] [place] [address] 90853 Protein [Mass/Vol] 7.0 g/dL Normal 6.3-8.0 [facility] Comment on above: Order Comment: Rocio shaffer Type: BLOOD SPECIMEN Ordering Facility: [facility] Address: [address] [place] [address] Performed By: #### 2 4323-8 #### [facility] CLIA [id number] [address] [place] [address] Sodium [Moles/Vol] 142 mmol/L Normal 136-144 [facility] Comment on above: Order Comment: Speci men Type: BLOOD SPECIMEN Ordering Facility: [facility] Address: [address] [place] [address] Performed By: #### 2 4323-8 #### [facility] CLIA [id number] [address] [place] [address] 48054 Urea nitrogen [Mass/Vol] 9 mg/dL Normal 7-21 [facility] Comment on above: Order Comment: Speci men Type: BLOOD SPECIMEN Ordering Facility: [facility] Address: [address] [place] [address] Performed By: #### 2 4323-8 #### [facility] CLIA [id number] [address] [place] [address] 31212 Ferritin SerPl-mCncon 2022 Ferritin [Mass/Vol] 11.8 ng/mL Low 14.7-205.1 [facility] Comment on above: Order Comment: Speci men Type: BLOOD SPECIMEN Ordering Facility: [facility] Address: [address] [place] [address] Performed By: #### 5 0190-8, 9, 4, 8 #### [facility] CLIA [id number] [address] [place] [address] [place] Folate SerPl-mCncon 03-31-20 23 Folate [Mass/Vol] Normal [facility] Comment on above: Order Comment: Speci men Type: BLOOD SPECIMEN Ordering Facility: [facility] Address: [address] [place] [address] Result Comment: Unab le to assay due to interference from hemolysis. Suggest reorder as clinically indicated. Performed By: #### 5 0190-8, 2131-9, 2275-4, 2283-8 #### [facility] CLIA [id number] [address] [place] [address] [place] Iron and Iron binding capaci ty panelon 03-31-2023 Iron [Mass/Vol] 63 ug/dL Normal 41-186 [facility] Comment on above: Order Comment: Speci men Type: BLOOD SPECIMEN Ordering Facility: [facility] Address: [address] [place] [address] Performed By: #### 5 0190-8, 9, 4, 8 #### [facility] CLIA [id number] [address] [place] [address] [place] Iron binding capacity [Mass/Vol] Normal [facility] Comment on above: Order Comment: Speci men Type: BLOOD SPECIMEN Ordering Facility: [facility] Address: [address] [place] [address] Result Comment: Unab le to calculate due to hemolysis. Performed By: #### 5 0190-8, 9, 2275-08, 2283-12 #### [facility] CLIA [id number] [address] [place] [address] [place] Iron/TIBC [Molar ratio] Normal C [facility] Comment on above: Order Comment: Speci men Type: BLOOD SPECIMEN Ordering Facility: [facility] Address: [address] [place], [place] [address] Result Comment: Unab le to calculate due to hemolysis. Performed By: #### 5 0190-8, 9, 2275-08, 2283-12 #### [facility] CLIA [id number] [address] [place] [address] [place] [facility] Cobalamin (Vitamin B12) [Mass/Vol] 327 pg/mL Normal 232-1245 [facility] Comment on above: Order Comment: Speci men Type: BLOOD SPECIMEN Ordering Facility: [facility] Address: [address] [place] [address] Performed By: #### 5 0190-8, 2132-9, 2276-4, 2284-8 #### [facility] CLIA [id number] [address] [place], [place] [id number] [place] MM screening mammo BI w/CADo n 02-22-2023 MM screening mammo BI w/CAD [facility] [address] [place] [address] [place] [address] Mammography Report Signed Patient: Jessica Ferrera MR#: [id number] 7 : 1955 Acct:[id number] Age/Sex: 67 / F ADM Date: 02/22/23 Loc: [place] Room: Type: [facility] Attending Dr: Referral Self Copies to: Ricardo [...] Juvenal Hanley M.D.02/22/2023 10:30 AM Dictation Location: DW01 Transcribed By: [facility] 02/22/23 1030 Dictated By: Juvenal Hanley DO 02/22/23 1029 Signed By: 02/22/23 1030 [facility] Basic Metabolic Profon 01-12 Anion gap [Moles/Vol] 10 mmol/L Normal 9-17 [facility] Comment on above: Performed By: #### C DP, BMP ####[facility] [address] [facility] [place] [phone] Director: Jelani Liu MD BUN/CRE Ratio 14 Normal 9-20 [facility] Comment on above: Performed By: #### C DP, BMP ####[facility] [address] [facility] [place] [phone] Director: Jelani Liu MD Calcium [Mass/Vol] 8.5 mg/dL Low 8.6-10.4 [facility] Comment on above: Performed By: #### C DP, BMP ####[facility] [address] [facility] [place] [phone] Director: Jelani Liu MD Chloride [Moles/Vol] 108 mmol/L High 98-107 [facility] Comment on above: Performed By: #### C DP, BMP ####[facility] [address] [facility] [place] [address] Lab Director: Jelani Liu MD CO2 [Moles/Vol] 23 mmol/L Normal 20-31 [facility] Comment on above: Performed By: #### C DP, BMP ####[facility] [address] [facility] [place] [phone] Director: Jelani Liu MD Creatinine [Mass/Vol] 0.8 mg/dL Normal 0.5-0.9 [facility] Comment on above: Performed By: #### C DP, BMP ####[facility] [address] [facility] [place] [address] Lab Director: Jelani Liu MD GFR/1.73 sq M.predicted among non-blacks MDRD (S/P/Bld) [Vol rate/Area] mL/min/{1.73_m2} Normal >60 [facility] Comment on above: Result Comment: These results [...] secretion. Performed By: #### C DP, BMP ####[facility] [address] [facility].[place], [place] [phone] Director: Jelani Liu MD Glucose [Mass/Vol] 156 mg/dL High 70-99 [facility] Comment on above: Performed By: #### C DP, BMP ####[facility] [address] [facility] [place] [address] Lab Director: Jelani Liu MD Potassium [Moles/Vol] 4.5 mmol/L Normal 3.7-5.3 [facility] Comment on above: Performed By: #### C DP, BMP ####[facility] [address] [facility] [place] [address] Lab Director: Jelani Liu MD Sodium [Moles/Vol] 141 mmol/L Normal 135-144 [facility] Comment on above: Performed By: #### C DP, BMP ####[facility] [address] [place] [address] Lab Director: Jelani Liu MD Urea nitrogen [Mass/Vol] 11 mg/dL Normal 8-23 [facility] Comment on above: Performed By: #### C DP, BMP ####[facility] [address] [place] [phone] Director: Jelani Liu MD CBC with Diffon 01-12-2023 Abs. Basophil <0.03 Normal 0.00-0.20 [facility] Comment on above: Performed By: #### C DP, BMP ####[facility] [address] [place] [address] Lab Director: Jelani Liu MD Abs. Eosinophil <0.03 Normal 0.00-0.44 [facility] Comment on above: Performed By: #### C DP, BMP ####[facility] [address] [facility] [place] [phone] Director: Jelani Liu MD Abs.Imm.Granulocyte 0.05 k/uL Normal 0.00-0.30 [facility] Comment on above: Performed By: #### C DP, BMP ####[facility] [address] [place] [address].[place] [address] Lab Director: Jelani Liu MD Abs.Neutrophil (Seg) 10.35 k/uL High 1.50-8.10 [facility] Comment on above: Performed By: #### C DP, BMP ####[facility] L[address] [facility] [place] [phone] Director: Jelani Liu MD Basophils/100 WBC (Bld) 0 % Normal 0-2 [facility] Comment on above: Performed By: #### C DP, BMP ####[facility] [address] [facility] [place] [address] Lab Director: Jelani Liu MD Eosinophils/100 WBC (Bld) 0 % Low 1-4 [facility] Comment on above: Performed By: #### C DP, BMP ####[facility] [address] [facility] [place] [phone] Director: Jelani Liu MD Erythrocyte distribution width (RBC) [Ratio] 12.9 % Normal 11.8-14.4 [facility] Comment on above: Performed By: #### C DP, BMP ####[facility] Ubm[address] [facility] [place] [address] Lab Director: Jelani Liu MD Hematocrit (Bld) [Volume fraction] 37.4 % Normal 36.3-47.1 [facility] Comment on above: Performed By: #### C DP, BMP ####[facility] [address] [place] [address].[place] [address] Lab Director: Jelani Liu MD Hemoglobin (Bld) [Mass/Vol] 11.8 g/dL Low 11.9-15.1 [facility] Comment on above: Performed By: #### C DP, BMP ####[facility] [address] [place] [address].[place] [address] Lab Director: Jelani Liu MD Immature granulocytes/100 WBC (Bld) 0 % Normal 0 [facility] Comment on above: Performed By: #### C DP, BMP ####[facility] [address] [place] [address].[place] [address] Lab Director: Jelani Liu MD Lymphocytes (Bld) [#/Vol] 1.70 10*3/uL Normal 1.10-3.70 [facility] Comment on above: Performed By: #### C DP, BMP ####[facility] [address] [place] [address].[place] [address] Lab Director: Jelani Liu MD Lymphocytes/100 WBC (Bld) 13 % Low 24-43 [facility] Comment on above: Performed By: #### C DP, BMP ####[facility] [address] [place] [address].[place] [address] Lab Director: Jelani Liu MD MCH (RBC) [Entitic mass] 29.7 pg Normal 25.2-33.5 [facility] Comment on above: Performed By: #### C DP, BMP ####[facility] [address] [facility] [place] [address] Lab Director: Jelani Liu MD MCHC (RBC) [Mass/Vol] 31.6 g/dL Normal 28.4-34.8 [facility] Comment on above: Performed By: #### C DP, BMP ####[facility] [address] [place] [address] Lab Director: Jelani Liu MD MCV (RBC) [Entitic vol] 94.2 fL Normal 82.6-102.9 [facility] Comment on above: Performed By: #### C DP, BMP ####[facility] [address] [place] [address] Lab Director: Jelani Liu MD Monocytes (Bld) [#/Vol] 0.61 10*3/uL Normal 0.10-1.20 [facility] Comment on above: Performed By: #### C DP, BMP ####[facility] [address] [place] [address].[place] [address] Lab Director: Jelani Liu MD Monocytes/100 WBC (Bld) 5 % Normal 3-12 [facility] Comment on above: Performed By: #### C DP, BMP ####[facility] [address] [place] [address].[place] [address] Lab Director: Jelani Liu MD Neutrophil (Seg) 82 % High 36-65 [facility] Comment on above: Performed By: #### C DP, BMP ####[facility] [address] [place] [address].[place] [address] Lab Director: Jelani Liu MD NRBC Automated 0.0 per 100 WBC Normal 0.0 [facility] Comment on above: Performed By: #### C DP, BMP ####[facility] [address], [place] [phone] Director: Jelani Liu MD Platelet mean volume (Bld) [Entitic vol] 10.1 fL Normal 8.1-13.5 [facility] Comment on above: Performed By: #### C DP, BMP ####[facility] [address] [facility] [place] [address] Lab Director: Jelani Liu MD Platelets (Bld) [#/Vol] 221 10*3/uL Normal 138-453 [facility] Comment on above: Performed By: #### C DP, BMP ####[facility] [address] [facility] [place] [address] Lab Director: Jelani Liu MD RBC (Bld) [#/Vol] 3.97 10*6/uL Normal 3.95-5.11 [facility] Comment on above: Performed By: #### C DP, BMP ####[facility] [address] [place] [address].[place] [address] Lab Director: Jelani Liu MD WBC (Bld) [#/Vol] 12.7 10*3/uL High 3.5-11.3 [facility] Comment on above: Performed By: #### C DP, BMP ####[facility] [address] [place] [address].[place] [address] Lab Director: Jelani Liu MD FLUORO FOR SURGICAL PROCEDUR ESon 01-11-2023 FLUORO FOR SURGICAL PROCEDURES Radiology exam is complete. No Radiologist dictation. Please follow up with ordering provider. Final result Normal [facility] Cult,Urineon 12-24-2022 Cult,Urine Specimen Description .CLEAN CATCH URINE Culture ESCHERICHIA COLI >100,000 CFU/ML This organism is an Extended Spectrum Beta Lactamase (ESBL) Fitness Coordinator and resistance to therapy with Penicillins, Cephalosporins [...] Amikacin <=2 SUSCEPTIBLE Meropenem <=0.25 SUSCEPTIBLE Susceptible [facility] Comment on above: Performed By: #### U RC ####[facility] [address] [place] [address] lab Director: Jyoti MembrenoSynappio[address] [place] [address] Lab Director: Terrance Luevano MD MRSA, DNA, Nasalon MRSA, DNA, Nasal Negative Normal NEG [facility] Comment on above: Result Comment: NEGA TIVE: MRSA DNA not detected by nucleic acid amplification. Results should be used as an adjunct to nosocomial control efforts to identify patients needing enhanced precautions. The test is not intended to identify patients with staphylococcal infections. Results should not be used to guide or monitor treatment for MRSA infections. Performed By: #### M RSANO ####[facility] [address] [place] [address] lab Director: Kristina Membreno [address] [place] [phone] Lab Director: Terrance Luevano MD APTTon 12-21-2022 aPTT Coag (Bld) [Time] 27.5 s Normal 23.9-33.8 [facility] Comment on above: Result Comment: IV Heparin Therapy Range: 62.0-94.0 Performed By: #### B MP, PT, PTT, CDP #### [facility] [address] [facility] [place] [address] Kaitara Taraka: Jelani Liu MD Basic Metabolic Profon 12-21 Anion gap [Moles/Vol] 11 mmol/L Normal 9-17 [facility] Comment on above: Performed By: #### B MP, PT, PTT, CDP #### [facility] [place] [address] Kaitara Taraka: Jelani Liu MD BUN/CRE Ratio 12 Normal 9-20 [facility] Comment on above: Performed By: #### B MP, PT, PTT, CDP #### [facility] [facility] [place] [address] Kaitara Taraka: Jelani Liu MD Calcium [Mass/Vol] 9.1 mg/dL Normal 8.6-10.4 [facility] Comment on above: Performed By: #### B MP, PT, PTT, CDP #### [facility] [address] [place] [address]. [place] [address] Kaitara Taraka: Jelani Liu MD Chloride [Moles/Vol] 104 mmol/L Normal 98-107 [facility] Comment on above: Performed By: #### B MP, PT, PTT, CDP #### [facility] [address] [place] [address]. [place] [address] Kaitara Taraka: Jelani Liu MD CO2 [Moles/Vol] 24 mmol/L Normal 20-31 [facility] Comment on above: Performed By: #### B MP, PT, PTT, CDP #### [facility] [address] [place] [address] Kaitara Taraka: Jelani Liu MD Creatinine [Mass/Vol] 0.9 mg/dL Normal 0.5-0.9 [facility] Comment on above: Performed By: #### B MP, PT, PTT, CDP #### [facility] [address] [facility] [place] [address] Kaitara Taraka: Jelani Liu MD GFR/1.73 sq M.predicted among non-blacks MDRD (S/P/Bld) [Vol rate/Area] mL/min/{1.73_m2} Normal >60 [facility] Comment on above: Result Comment: These results [...] #### B MP, PT, PTT, CDP #### [facility] [address] [facility] [place] [address] Kaitara Taraka: Jelani Liu MD Glucose [Mass/Vol] 93 mg/dL Normal 70-99 [facility] Comment on above: Performed By: #### B MP, PT, PTT, CDP #### [facility] [address] [facility] [place] [address] Kaitara Taraka: Jelani Liu MD Potassium [Moles/Vol] 4.1 mmol/L Normal 3.7-5.3 [facility] Comment on above: Performed By: #### B MP, PT, PTT, CDP #### [facility] [address] [facility] [place] [address] Kaitara Taraka: Jelani Liu MD Sodium [Moles/Vol] 139 mmol/L Normal 135-144 [facility] Comment on above: Performed By: #### B MP, PT, PTT, CDP #### [facility] [address] [place] [address] Kaitara Taraka: Jelani Liu MD Urea nitrogen [Mass/Vol] 11 mg/dL Normal 8-23 [facility] Comment on above: Performed By: #### B MP, PT, PTT, CDP #### [facility] [address] [place] [address] Kaitara Taraka: Jelani Liu MD CBC with Diffon 12-21-2022 Abs. Basophil 0.09 k/uL Normal 0.00-0.20 [facility] Comment on above: Performed By: #### B MP, PT, PTT, CDP #### [facility] [address] [place] [address] Kaitara Taraka: Jelani Liu MD Abs. Eosinophil <0.03 Normal 0.00-0.44 [facility] Comment on above: Performed By: #### B MP, PT, PTT, CDP #### [facility] [address] [place] [address] Kaitara Taraka: Jelani Liu MD Abs.Imm.Granulocyte 0.02 k/uL Normal 0.00-0.30 [facility] Comment on above: Performed By: #### B MP, PT, PTT, CDP #### [facility] [address] [place] [address] Kaitara Taraka: Jelani Liu MD Abs.Neutrophil (Seg) 3.03 k/uL Normal 1.50-8.10 [facility] Comment on above: Performed By: #### B MP, PT, PTT, CDP #### [facility] [address] [place] [address]. [place] [address] Kaitara Taraka: Jelani Liu MD Basophils/100 WBC (Bld) 1 % Normal 0-2 [facility] Comment on above: Performed By: #### B MP, PT, PTT, CDP #### [facility] [address] [place] [address] Kaitara Taraka: Jelani Liu MD Eosinophils/100 WBC (Bld) 0 % Low 1-4 [facility] Comment on above: Performed By: #### B MP, PT, PTT, CDP #### [facility] [address] [place] [address] Kaitara Taraka: Jelani Liu MD Erythrocyte distribution width (RBC) [Ratio] 13.1 % Normal 11.8-14.4 [facility] Comment on above: Performed By: #### B MP, PT, PTT, CDP #### [facility] [address] [place] [address] Kaitara Taraka: Jelani Liu MD Hematocrit (Bld) [Volume fraction] 45.2 % Normal 36.3-47.1 [facility] Comment on above: Performed By: #### B MP, PT, PTT, CDP #### [facility] [address] [place] [address]. [place] [address] Kaitara Taraka: Jelani Liu MD Hemoglobin (Bld) [Mass/Vol] 14.5 g/dL Normal 11.9-15.1 [facility] Comment on above: Performed By: #### B MP, PT, PTT, CDP #### [facility] [address] [place] [address]. [place] [address] Kaitara Taraka: Jelani Liu MD Immature granulocytes/100 WBC (Bld) 0 % Normal 0 [facility] Comment on above: Performed By: #### B MP, PT, PTT, CDP #### [facility] [address] [facility] [place] [address] Kaitara Taraka: Jelani Liu MD Lymphocytes (Bld) [#/Vol] 3.93 10*3/uL High 1.10-3.70 [facility] Comment on above: Performed By: #### B MP, PT, PTT, CDP #### [facility] [address] [place] [address]. [place] [address] Kaitara Taraka: Jelani Liu MD Lymphocytes/100 WBC (Bld) 50 % High 24-43 [facility] Comment on above: Performed By: #### B MP, PT, PTT, CDP #### [facility] [address] [place] [address]. [place] [address] Kaitara Taraka: Jelani Liu MD MCH (RBC) [Entitic mass] 30.1 pg Normal 25.2-33.5 [facility] Comment on above: Performed By: #### B MP, PT, PTT, CDP #### [facility] [address] [place] [address]. [place] [address] Kaitara Taraka: Jelani Liu MD MCHC (RBC) [Mass/Vol] 32.1 g/dL Normal 28.4-34.8 [facility] Comment on above: Performed By: #### B MP, PT, PTT, CDP #### [facility] [address] [place] [address]. [place] [address] Kaitara Taraka: Jelani Liu MD MCV (RBC) [Entitic vol] 93.8 fL Normal 82.6-102.9 [facility] Comment on above: Performed By: #### B MP, PT, PTT, CDP #### [facility] [address] [place] [address]. [place] [address] Kaitara Taraka: Jelani Liu MD Monocytes (Bld) [#/Vol] 0.75 10*3/uL Normal 0.10-1.20 [facility] Comment on above: Performed By: #### B MP, PT, PTT, CDP #### [facility] [place] [address] Kaitara Taraka: Jelani Liu MD Monocytes/100 WBC (Bld) 10 % Normal 3-12 M [facility] Comment on above: Performed By: #### B MP, PT, PTT, CDP #### [facility] [address] [place] [address] Kaitara Taraka: Jelani Liu MD Neutrophil (Seg) 39 % Normal 36-65 [facility] Comment on above: Performed By: #### B MP, PT, PTT, CDP #### [facility] [address] [place] [address] Kaitara Taraka: Jelani Liu MD NRBC Automated 0.0 per 100 WBC Normal 0.0 [facility] Comment on above: Performed By: #### B MP, PT, PTT, CDP #### [facility] [address] [place] [address] Kaitara Taraka: Jelani Liu MD Platelet mean volume (Bld) [Entitic vol] 10.0 fL Normal 8.1-13.5 [facility] Comment on above: Performed By: #### B MP, PT, PTT, CDP #### [facility] [address] [place] [address] Kaitara Taraka: Jelani Liu MD Platelets (Bld) [#/Vol] 257 10*3/uL Normal 138-453 [facility] Comment on above: Performed By: #### B MP, PT, PTT, CDP #### [facility] [address] [place] [address], [place] [address] Kaitara Taraka: Jelani Liu MD RBC (Bld) [#/Vol] 4.82 10*6/uL Normal 3.95-5.11 [facility] Comment on above: Performed By: #### B MP, PT, PTT, CDP #### [facility] [address] [place] [address] Kaitara Taraka: Jelani Liu MD WBC (Bld) [#/Vol] 7.8 10*3/uL Normal 3.5-11.3 [facility] Comment on above: Performed By: #### B MP, PT, PTT, CDP #### [facility] [address] [place] [address] Kaitara Taraka: Jelani Liu MD MRSA, DNA, Nasalon 3 Specimen Description .NASAL SWAB Normal [facility] Comment on above: Performed By: #### M RSANO ####[facility] [address] [place] [address] Lab Director: JOAQUÍN [address] [place] [address] Lab Director: Terrance Luevano MD PTon 12-21-2022 INR Coag (PPP) [Relative time] 0.9 {INR} Normal [facility] Comment on above: Result Comment: Therapeutic Range: Moderate Anticoagulant Intensity: INR = 2.0-3.0 High Anticoagulant Intensity: INR = 2.5-3.5 Performed By: #### B MP, PT, PTT, CDP #### [facility] [address] [facility] [place] [address] Kaitara Taraka: Jelani Liu MD PT Coag (PPP) [Time] 12.1 s Normal 11.5-14.2 [facility] Comment on above: Performed By: #### B MP, PT, PTT, CDP #### [facility] [address] [place] [address] Kaitara Taraka: Jelani Liu MD Urinalysis, Routineon 2022 Bilirubin, SemiQt,Ur Negative Normal NEG [facility] Comment on above: Performed By: #### U A ####[facility] [address] [place] [address] Lab Director: Jelani Liu MD Blood, Urine Negative Normal NEG [facility] Comment on above: Performed By: #### U A ####[facility] [address] [facility] [place] [address] Lab Director: Jelani Liu MD Clarity (U) Clear Normal CLEAR [facility] Comment on above: Performed By: #### U A ####[facility] [address] [facility] [place] [address] Lab Director: Jelani Liu MD Color (U) Yellow Normal YEL [facility] Comment on above: Performed By: #### U A ####[facility] [address] [facility] [place] [address] Lab Director: Jelani Liu MD Comment Microscopic exam not performed based on chemical results unless requested in Normal [facility] Comment on above: Result Comment: orig inal order. Performed By: #### U A ####[facility] [address] [facility] [place] [address] Lab Director: Jelani Liu MD Glucose Ql (U) Negative Normal NEG [facility] Comment on above: Performed By: #### U A ####[facility] [address] [facility] [place] [address] Lab Director: Jelani Liu MD Ketones Ql (U) Negative Normal NEG [facility] Comment on above: Performed By: #### U A ####[facility] [address] [place] [address] Lab Director: Jelani Liu MD Leukocyte esterase Test strip Ql (U) Negative Normal NEG [facility] Comment on above: Performed By: #### U A ####[facility] [address] [place] [address] Lab Director: Jelani Liu MD Nitrite,Ur Negative Normal NEG [facility] Comment on above: Performed By: #### U A ####[facility] [address] [place] [address] Lab Director: Jelani Liu MD PH,Ur 5.5 Normal 5.0-8.0 [facility] Comment on above: Performed By: #### U A ####[facility] [address] [place] [address] Lab Director: Jelani Liu MD Protein Ql (U) Negative Normal NEG [facility] Comment on above: Performed By: #### U A ####[facility] [address] [place] [address] Lab Director: Jelani Liu MD Spec. Laurel,Ur 1.015 Normal 1.005-1.030 [facility] Comment on above: Performed By: #### U A ####[facility] [address] [facility] [place] [address] Lab Director: Jelani Liu MD Urobilinogen,Ur Normal Normal 0.0-1.0 [facility] Comment on above: Performed By: #### U A ####[facility] [address] [place] [address] lab Director: Jelani Liu MD Consent for Treatmenton 09-28 Consent for Treatment [id number] .00CD:127 [facility] Discharge Instructionson Discharge Instructions [id number]# 1.00CD:127 [facility] ED Clinical Summaryon 2022 ED Clinical Summary [address] [address] ED Clinical Summary Person Information Name: JESSICA FERRERA [facility] Age: 67 Years : 1955 Sex: Female Language: Namibian PCP: Ricardo Hooper MD Marital Status: Visit [...] 10/10/2022 16:00:24 10/10/2022 16:00:24 10/10/2022 16:00:24 ADDRESS: [address] [place] [address] [address] [phone] PHYS DOC NOTES: MEDICAL INFORMATION: Prescriptions Given: [...] Follow up: With: Address: When: Ricardo Hooper [facility] [place] [address] Business (1) In 3 days 10/13/2022 Comments: Follow-up with your primary care provider in 3 to 5 days. If symptoms worsen, do not improve, or new symptoms arise please report back to emergency department for further evaluation. DIAGNOSIS: Left serous otitis media Normal [facility] ED Note-Physicianon 10-11-19 ED Note-Physician Basic Information Time Seen: Bo SAWANT, Thony Hicks 10/10/2022 15:28 Chief Complaint Pt had sinus infection beginning of September was placed on abx and felt better. Abx done on Wednesday, Wednesday started wtih L ear pain. Told to take antihistamines OTC. Saw [place] ER and told possible shingles on top of the antihistamines. States still having L History of Present Illness 67-year-old fe with a chief complaint of male reports to the emergency department left ear pain. He reports that she just finished up antibiotic, but on Wednesday, she started with left ear pain. Reports that she was told to take ainq-ilc-sswikbj antihistamine and other medications, to help with her symptoms, but this has not been helping. She also went to [place] emergency department, and was told that she [...] and Complexity of Problems Differential Diagnosis: [] [facility] Data External documents reviewed: [] [...] very concerned because of her trip to [place]. No other signs are positive on my [...] Hooper In 3 days 10/13/2022 EDT [address] [place] [address]- (954) (more content not included)... [facility] Comment on above: Result Comment: Elec tronically [...] weeks. Home care treatment may include: ? Xiyf-vcx-ppeekof pain relievers. ? A warm, moist cloth placed over the ear. Severe cases may require a procedure to insert tubes in the ears (tympanostomy tubes) to drain the fluid. Follow these instructions at home: ? Take ptgf-joi-mxtrroo and prescription medicines only as told by [...] provider. Document Revised: 09/11/2021 Document Reviewed: 09/11/2021 [employer] Patient Education ? 2022 [employer] Normal [facility] ED Patient Summaryon 023 ED Patient Summary [address] [address] Patient Discharge Instructions Person Information Name: JESSICA FERRERA Age: 67 Years Arrival Date: 10/10/2022 14:53:25 Discharge Diagnosis: Left serous otitis media Primary Care Physician: Ricardo Hooper MD Provider Information Primary Provider: Rocael Wayne DO [employer] Sorter:None The exam and treatment you received in the Emergency Department were for an urgent problem and are not intended as complete care. It is important that you follow up with a doctor, nurse practitioner, or physician?s hotel administrative assistant for ongoing care. If your symptoms [...] Follow-up Instructions: With: Address: When: Ricardo Hooper [facility], [place] [address] Business (1) In 3 days 10/13/2022 Comments: [...] opioids can be used to help relieve ghrhlbnp-lb-ostgaj pain and are often prescribed following a [...] abuse and (more content not included)... Normal [facility] CBC W Auto Differential pane l (Bld)on 10-07-2022 Anisocytosis Ql (Bld) Present Normal [facility] Comment on above: Order Comment: Rocio shaffer Type: BLOOD SPECIMEN Ordering Facility: [facility] Address: [address] [place] [phone] Performed By: #### 5 0190-8, 2132-9, 2276-4, 2284-8 #### [facility] CLIA [id number] [address] [place] [address] [place] Basophils (Bld) [#/Vol] 0.09 10*3/uL Normal <0.11 [facility] Comment on above: Order Comment: Rcoio shaffer Type: BLOOD SPECIMEN Ordering Facility: [facility] Address: [address] Performed By: #### 5 0190-8, 9, 2275-08, 2283-12 #### [facility] CLIA [id number] [address] [place] [address] [place] Basophils/100 WBC (Bld) 0.7 % Normal C [facility] Comment on above: Order Comment: Speci men Type: BLOOD SPECIMEN Ordering Facility: [facility] Address: [address] [address] Performed By: #### 5 0190-8, 2132-01, 2275-08, 2283-12 #### [facility] CLIA [id number] [address] [place] [address] [place] Differential cell count method Nom (Bld) Auto Normal [facility] Comment on above: Order Comment: Speci men Type: BLOOD SPECIMEN Ordering Facility: [facility] Address: [address] [place] [address] Performed By: #### 5 0190-8, 9, 2275-08, 2283-12 #### [facility] CLIA [id number] [address] [place] [address] [place] Eosinophils (Bld) [#/Vol] 10*3/uL Normal <0.46 [facility] Comment on above: Order Comment: Speci men Type: BLOOD SPECIMEN Ordering Facility: [facility] Address: [address] Performed By: #### 5 0190-8, 9, 2275-08, 2283-12 #### [facility] CLIA [id number] [address] [place] [address] [place] Eosinophils/100 WBC (Bld) 0.1 % Normal [facility] Comment on above: Order Comment: Speci men Type: BLOOD SPECIMEN Ordering Facility: [facility] Address: [address] [address] Performed By: #### 5 0190-8, 9, 2275-08, 8 #### [facility] CLIA [id number] [address] [place] [address] [place] Erythrocyte distribution width (RBC) [Ratio] 15.3 % High 11.5-15.0 [facility] Comment on above: Order Comment: Speci men Type: BLOOD SPECIMEN Ordering Facility: [facility] Address: [address] [place] [address] Performed By: #### 5 0190-8, 9, 2275-08, 2283-12 #### [facility] CLIA [id number] [address] [place] [address] [place] Hematocrit (Bld) [Volume fraction] 45.1 % Normal 36.0-46.0 [facility] Comment on above: Order Comment: Speci men Type: BLOOD SPECIMEN Ordering Facility: [facility] Address: [address] [place] [address] Performed By: #### 5 0190-8, 9, 2275-08, 2283-12 #### [facility] CLIA [id number] [address] [place] [address] [place] Hemoglobin (Bld) [Mass/Vol] 14.4 g/dL Normal 11.5-15.5 [facility] Comment on above: Order Comment: Speci men Type: BLOOD SPECIMEN Ordering Facility: [facility] Address: [address] Performed By: #### 5 0190-8, 9, 2275-08, 2283-12 #### [facility] CLIA [id number] [address] [place] [address] [place] Immature granulocytes (Bld) [#/Vol] 0.09 10*3/uL Normal <0.10 [facility] Comment on above: Order Comment: Speci men Type: BLOOD SPECIMEN Ordering Facility: [facility] Address: [address] Performed By: #### 5 0190-8, 2132-01, 2275-08, 2283-12 #### [facility] CLIA [id number] [address] [place] [address] [place] Immature granulocytes/100 WBC (Bld) 0.7 % Normal [facility] Comment on above: Order Comment: Speci men Type: BLOOD SPECIMEN Ordering Facility: [facility] Address: [address] Performed By: #### 5 0190-8, 2132-01, 2275-08, 2283-12 #### [facility] CLIA [id number] [address] [place] [address] [place] Lymphocytes (Bld) [#/Vol] 5.07 10*3/uL High 1.00-4.00 [facility] Comment on above: Order Comment: Speci men Type: BLOOD SPECIMEN Ordering Facility: [facility] Address: [address] Performed By: #### 5 0190-8, 2132-01, 2275-08, 2283-12 #### [facility] CLIA [id number] [address] [place] [address] [place] Lymphocytes/100 WBC (Bld) 39.0 % Normal [facility] Comment on above: Order Comment: Speci men Type: BLOOD SPECIMEN Ordering Facility: [facility] Address: [address] Performed By: #### 5 0190-8, 2132-01, 2275-08, 2283-12 #### [facility] CLIA [id number] [address] [place] [address] [place] MCH (RBC) [Entitic mass] 28.6 pg Normal 26.0-34.0 [facility] Comment on above: Order Comment: Speci men Type: BLOOD SPECIMEN Ordering Facility: [facility] Address: [address] [place], [place] [address] Performed By: #### 5 0190-8, 2132-01, 2275-08, 2283-12 #### [facility] CLIA [id number] [address] [place] [address] [place] MCHC (RBC) [Mass/Vol] 31.9 g/dL Normal 30.5-36.0 [facility] Comment on above: Order Comment: Speci men Type: BLOOD SPECIMEN Ordering Facility: [facility] Address: [address] [place] [address] Performed By: #### 5 0190-8, 2132-01, 2275-08, 2283-12 #### [facility] CLIA [id number] [address] [place] [address] [place] MCV (RBC) [Entitic vol] 89.5 fL Normal 80.0-100.0 [facility] Comment on above: Order Comment: Speci men Type: BLOOD SPECIMEN Ordering Facility: [facility] Address: [address] [place] [address] Performed By: #### 5 0190-8, 2132-01, 2275-08, 2283-12 #### [facility] CLIA [id number] [address] [place] [address] [place] Monocytes (Bld) [#/Vol] 1.10 10*3/uL High <0.87 [facility] Comment on above: Order Comment: Speci men Type: BLOOD SPECIMEN Ordering Facility: [facility] Address: [address] [place], [place] [address] Performed By: #### 5 0190-8, 2132-01, 2275-08, 2283-12 #### [facility] CLIA [id number] [address] [place] [address] [place] Monocytes/100 WBC (Bld) 8.5 % Normal [facility] Comment on above: Order Comment: Speci men Type: BLOOD SPECIMEN Ordering Facility: [facility] Address: [address] [place] [address] Performed By: #### 5 0190-8, 9, 2275-4, 8 #### [facility] CLIA [id number] [address] [place] [address] [place] Neutrophils (Bld) [#/Vol] 6.65 10*3/uL Normal 1.45-7.50 [facility] Comment on above: Order Comment: Speci men Type: BLOOD SPECIMEN Ordering Facility: [facility] Address: [address] [place] [address] Performed By: #### 5 0190-8, 9, 4, 8 #### [facility] CLIA [id number] [address] [place] [address] [place] Neutrophils/100 WBC (Bld) 51.0 % Normal [facility] Comment on above: Order Comment: Speci men Type: BLOOD SPECIMEN Ordering Facility: [facility] Address: [address] [place] [address] Performed By: #### 5 0190-8, 9, 4, 8 #### [facility] CLIA [id number] [address] [place] [address] [place] Nucleated RBC (Bld) [#/Vol] 10*3/uL Normal <0.01 [facility] Comment on above: Order Comment: Speci men Type: BLOOD SPECIMEN Ordering Facility: [facility] Address: [address] [place] [address] Performed By: #### 5 0190-8, 9, 2275-4, 8 #### [facility] CLIA [id number] [address] [place] [address] [place] Nucleated RBC/100 WBC (Bld) [Ratio] 0.0 /100 WBC Normal [facility] Comment on above: Order Comment: Speci men Type: BLOOD SPECIMEN Ordering Facility: [facility] Address: [address] [place] [address] Performed By: #### 5 0190-8, 9, 6-4, 2283-8 #### [facility] CLIA [id number] [address] [place] [address] [place] Ovalocytes LM Ql (Bld) Few Normal [facility] Comment on above: Order Comment: Speci men Type: BLOOD SPECIMEN Ordering Facility: [facility] Address: [address] [place] [address] Performed By: #### 5 0190-8, 9, 2275-4, 8 #### [facility] CLIA [id number] [address] [place] [address] [place] Platelet mean volume (Bld) [Entitic vol] 9.5 fL Normal 9.0-12.7 [facility] Comment on above: Order Comment: Speci men Type: BLOOD SPECIMEN Ordering Facility: [facility] Address: [address] [place] [address] Performed By: #### 5 0190-8, 9, 2275-4, 8 #### [facility] CLIA [id number] [address] [place] [address] [place] Platelets (Bld) [#/Vol] 307 10*3/uL Normal 150-400 [facility] Comment on above: Order Comment: Speci men Type: BLOOD SPECIMEN Ordering Facility: [facility] Address: [address] [place] [address] Performed By: #### 5 0190-8, 9, 2275-4, 2283-8 #### [facility] CLIA [id number] [address] [place] [id number] [address] [place] Platelets Estimate (Bld) [#/Vol] Adequate Normal [facility] Comment on above: Order Comment: Speci men Type: BLOOD SPECIMEN Ordering Facility: [facility] Address: [address] [place] [address] Performed By: #### 5 0190-8, 2131-9, 6-4, 2283-8 #### [facility] CLIA [id number] [address] [place] [address] [place] RBC (Bld) [#/Vol] 5.04 10*6/uL Normal 3.90-5.20 [facility] Comment on above: Order Comment: Speci men Type: BLOOD SPECIMEN Ordering Facility: [facility] Address: [address] [place] [address] Performed By: #### 5 0190-8, 9, 2275-4, 2283-8 #### [facility] CLIA [id number] [address] [place] [address] [place] [facility] RED CELL MORPH Reviewed: see result s of individual morphologies Normal [facility] Comment on above: Order Comment: Speci men Type: BLOOD SPECIMEN Ordering Facility: [facility] Address: [address] [place] [address] Performed By: #### 5 0190-8, 9, 2275-4, 2283-8 #### [facility] CLIA [id number] [address] [place] [address] [place] WBC (Bld) [#/Vol] 13.01 10*3/uL High 3.70-11.00 [facility] Comment on above: Order Comment: Speci men Type: BLOOD SPECIMEN Ordering Facility: [facility] Address: [address] [place] [address] Performed By: #### 5 0190-8, 2131-9, 6-4, 2283-8 #### [facility] CLIA [id number] [address] [id number] [facility] CNOVSPon 10-07-2022 CNOVSP Visit (SP) Office ([place]) JESSICA FERRERA ([id number]) 1955 F Date Time Provider Department 10/07/22 [...] AM Signed NAME: Jessica Ferrera CLINIC NO.: [id number] DATE OF SERVICE: June 10, 2022 (Andra) [...] stable - can reassess in 6 months. [facility] Clinical Note Previous notes reviewed today [...] with more than 50% of the total cqhj-na-suzc time of the visit in counseling / coordination of care. 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 as diagnosed by [facility]. No evidence of a paraprotein. [...] me know. (more content not included)... Normal [facility] Comprehensive metabolic 2000 panelon 10-07-2022 Albumin [Mass/Vol] 4.4 g/dL Normal 3.9-4.9 [facility] Comment on above: Order Comment: Rocio shaffer Type: BLOOD SPECIMEN Ordering Facility: [facility] Address: [address] [place] [place] [address] Performed By: #### 2 4323-8 #### [facility] CLIA [id number] [address] [place] [address] ALP [Catalytic activity/Vol] 95 U/L Normal 34-123 [facility] Comment on above: Order Comment: Rocio shaffer Type: BLOOD SPECIMEN Ordering Facility: [facility] Address: [address] [address] Performed By: #### 2 4323-8 #### [facility] CLIA [id number] [address] [place] [address] ALT [Catalytic activity/Vol] 17 U/L Normal 7-38 [facility] Comment on above: Order Comment: Speci men Type: BLOOD SPECIMEN Ordering Facility: [facility] Address: [address] [address] Performed By: #### 2 4323-8 #### [facility] CLIA [id number] [address] [place] [address] Anion gap [Moles/Vol] 11 mmol/L Normal 9-18 [facility] Comment on above: Order Comment: Speci men Type: BLOOD SPECIMEN Ordering Facility: [facility] Address: [address] [address] Performed By: #### 2 4323-8 #### [facility] CLIA [id number] [address] [place] [address] AST [Catalytic activity/Vol] 15 U/L Normal 13-35 [facility] Comment on above: Order Comment: Speci men Type: BLOOD SPECIMEN Ordering Facility: [facility] Address: [address] [address] Performed By: #### 2 4323-8 #### [facility] CLIA [id number] [address] [place] [address] Bilirubin [Mass/Vol] 0.3 mg/dL Normal 0.2-1.3 [facility] Comment on above: Order Comment: Speci men Type: BLOOD SPECIMEN Ordering Facility: [facility] Address: [address] [address] Performed By: #### 2 4323-8 #### [facility] CLIA [id number] [address] [place] [address] Calcium [Mass/Vol] 9.4 mg/dL Normal 8.5-10.2 [facility] Comment on above: Order Comment: Speci men Type: BLOOD SPECIMEN Ordering Facility: [facility] Address: [address] [address] Performed By: #### 2 4323-8 #### [facility] CLIA [id number] [address] [place] [address] Chloride [Moles/Vol] 102 mmol/L Normal 97-105 [facility] Comment on above: Order Comment: Speci men Type: BLOOD SPECIMEN Ordering Facility: [facility] Address: [address] [address] Performed By: #### 2 4323-8 #### [facility] CLIA [id number] [address] [place] [address] CO2 [Moles/Vol] 27 mmol/L Normal 22-30 [facility] Comment on above: Order Comment: Speci men Type: BLOOD SPECIMEN Ordering Facility: [facility] Address: [address] [address] Performed By: #### 2 4323-8 #### [facility] CLIA [id number] [address] [place] [address] Creatinine [Mass/Vol] 0.95 mg/dL Normal 0.58-0.96 [facility] Comment on above: Order Comment: Speci men Type: BLOOD SPECIMEN Ordering Facility: [facility] Address: [address] [address] Performed By: #### 2 4323-8 #### [facility] CLIA [id number] [address] [place] [address] ESTIMATED GLOMERULAR FILTRATION RATE 66 mL/min/1.73m??? Normal >=60 [facility] Comment on above: Order Comment: Speci men Type: BLOOD SPECIMEN Ordering Facility: [facility] Address: [address] [place] [address] Result Comment: Abigail mated Glomerular Filtration Rate [...] actual GFR. Performed By: #### 2 4323-8 #### [facility] CLIA [id number] [address] [place] [address]102 Glucose [Mass/Vol] 105 mg/dL High 74-99 [facility] Comment on above: Order Comment: Rocio shaffer Type: BLOOD SPECIMEN Ordering Facility: [facility] Address: [address] [place] [address] Result Comment: The [place] Diabetes Association (ADA) provides guidance for cutoff [...] Standards of Medical Care in Diabetes 2016, [place] [employer] Association. Diabetes Care. 2016.39(Suppl 1). Performed By: #### 2 4323-8 #### [facility] CLIA [id number] [address] [place] [address]82 Potassium [Moles/Vol] 3.9 mmol/L Normal 3.7-5.1 [facility] Comment on above: Order Comment: Rocio shaffer Type: BLOOD SPECIMEN Ordering Facility: [facility] Address: [address] [place] [address] Performed By: #### 2 4323-8 #### [facility] CLIA [id number] [address] [place] [address]014 Protein [Mass/Vol] 6.8 g/dL Normal 6.3-8.0 [facility] Comment on above: Order Comment: Rocio shaffer Type: BLOOD SPECIMEN Ordering Facility: [facility] Address: [address] [address] Performed By: #### 2 4323-8 #### [facility] CLIA [id number] [address] [place] [address] Sodium [Moles/Vol] 140 mmol/L Normal 136-144 [facility] Comment on above: Order Comment: Speci men Type: BLOOD SPECIMEN Ordering Facility: [facility] Address: [address] [address] Performed By: #### 2 4323-8 #### [facility] CLIA [id number] [address] [place] [address]206 Urea nitrogen [Mass/Vol] 11 mg/dL Normal 7-21 [facility] Comment on above: Order Comment: Speci men Type: BLOOD SPECIMEN Ordering Facility: [facility] Address: [address] [address] Performed By: #### 2 4323-8 #### [facility] CLIA [id number] [address] [place] [address] Ferritin SerPl-mCncon 2022 Ferritin [Mass/Vol] 24.4 ng/mL Normal 14.7-205.1 [facility] Comment on above: Order Comment: Speci men Type: BLOOD SPECIMEN Ordering Facility: [facility] Address: [address] [address] Performed By: #### 5 0190-8, 9, 6-4, 2283-8 #### [facility] CLIA [id number] [address] [facility] [id number] [id number] [place] Folate SerPl-mCncon 10-08-19 23 Folate [Mass/Vol] 17.6 ng/mL Normal >4.[address] [facility] Comment on above: Order Comment: Speci men Type: BLOOD SPECIMEN Ordering Facility: [facility] Address: [address] [address] Performed By: #### 5 0190-8, 2132-01, 4, 2283-12 #### [facility] CLIA [id number] [address] [place] [address] [place] Iron and Iron binding capaci ty panelon 10-07-2022 Iron [Mass/Vol] 97 ug/dL Normal 41-186 [facility] Comment on above: Order Comment: Speci men Type: BLOOD SPECIMEN Ordering Facility: [facility] Address: [address] [place] [address] Performed By: #### 5 0190-8, 9, 2275-08, 2283-12 #### [facility] CLIA [id number] [address] [place] [address] [place] Iron binding capacity [Mass/Vol] 379 ug/dL Normal 232-386 [facility] Comment on above: Order Comment: Speci men Type: BLOOD SPECIMEN Ordering Facility: [facility] Address: [address] [place] [address] Performed By: #### 5 0190-8, 9, 2275-08, 2283-12 #### [facility] [place] [id number] [address] [place] [address] [place] Iron/TIBC [Molar ratio] 25.6 % Normal 15.0-57.0 [facility] Comment on above: Order Comment: Speci men Type: BLOOD SPECIMEN Ordering Facility: [facility] Address: [address] [place] [address] Performed By: #### 5 0190-8, 9, 2275-08, 2283-12 #### [facility] [place] [id number] [address] [place] [address] [place] Vit B12 SerPl-mCncon 023 Cobalamin (Vitamin B12) [Mass/Vol] 316 pg/mL Normal 232-1245 [facility] Comment on above: Order Comment: Speci men Type: BLOOD SPECIMEN Ordering Facility: [facility] Address: [address] [place] [address] Performed By: #### 5 0190-8, 2132-9, 2276-4, 2284-8 #### [facility] CLIA [id number] [address] [address] [place] INSULINon 08-31-2022 Insulin 18.9 uIU/mL Normal 2.6-24.9 [facility] Comment on above: Performed By: #### I NSULIN #### [facility] [address] [place] [address] Dr. Barrington Gomez CBC AUTO DIFFon 08-29-2022 BASO # 0.1 103/ul Normal 0.0-0.1 [facility] Comment on above: Performed By: #### C BC #### [facility] [address] [place] [address] Dr. Barrington Gomez Basophils/100 WBC (Bld) 0.9 % Normal 0.2-2.0 [facility] Comment on above: Performed By: #### C BC #### [facility] [address] [place] [address] Dr. Barrington Gomez EO # 0.1 103/ul Normal 0.0-0.7 [facility] Comment on above: Performed By: #### C BC #### [facility] [address] [place] [address] Dr. Barrington Gomez Eosinophils/100 WBC (Bld) 1.9 % Normal 0.9-7.0 [facility] Comment on above: Performed By: #### C BC #### [facility] [address] [place] [address] Dr. Barrington Gomez Erythrocyte distribution width (RBC) [Ratio] 16.9 % Critically high 11.0-15.0 [facility] Comment on above: Performed By: #### C BC #### [facility] [address] [place] [address] Dr. Barrington Gomez Hematocrit (Bld) [Volume fraction] 44.4 % Normal 36.0-48.0 [facility] Comment on above: Performed By: #### C BC #### [facility] [address] [place] [address] Dr. Barrington Gomez Hemoglobin (Bld) [Mass/Vol] 13.9 g/dL Normal 12.0-16.0 [facility] Comment on above: Performed By: #### C BC #### [facility] [address] [place] [address] Dr. Barrington Gomze IG # 0.02 10e3/ul Normal 0.00-0.03 [facility] Comment on above: Performed By: #### C BC #### [facility] [address] [place] [address] Dr. Barrington Gomez IG % 0.3 % Normal 0.0-0.5 [facility] Comment on above: Performed By: #### C BC #### [facility] [address] [place] [address] Dr. Barrington Gomez LYMPH # 3.0 103/ul Normal 1.2-3.8 [facility] Comment on above: Performed By: #### C BC #### [facility] [address] [place] [address] Dr. Barrington Gomez Lymphocytes/100 WBC (Bld) 47.6 % Normal 20.5-60.0 [facility] Comment on above: Performed By: #### C BC #### [facility] [address] [place] [address] Dr. Barrington Gomez MANUAL DIFF REQ NO Normal [facility] Comment on above: Performed By: #### C BC #### [facility] [address] [place] [address] Dr. Barrington Gomez MCH (RBC) [Entitic mass] 27.4 pg Normal 26.7-34.0 [facility] Comment on above: Performed By: #### C BC #### [facility] [address] [place] [address] Dr. Barrington Gomez MCHC (RBC) [Mass/Vol] 31.3 g/dL Normal 29.9-35.2 [facility] Comment on above: Performed By: #### C BC #### [facility] [address] [address] [address] Barrington Gomez MCV (RBC) [Entitic vol] 87.6 fL Normal 81.0-99.0 [facility] Comment on above: Performed By: #### C BC #### [facility] [address] [address] [address] Barrington Gomez MONO # 0.6 103/ul Normal 0.3-0.8 [facility] Comment on above: Performed By: #### C BC #### [facility] [address] [place] [address] Dr. Barrington Gomez Monocytes/100 WBC (Bld) 8.8 % Normal 1.7-12.0 [facility] Comment on above: Performed By: #### C BC #### [facility] [address] [place] [address] Dr. Barrington Gomez NEUT # 2.6 103/ul Normal 1.4-6.5 [facility] Comment on above: Performed By: #### C BC #### [facility] [address] [place] [address] Dr. Barrington Gomez Neutrophils/100 WBC (Bld) 40.5 % Critically low 43.0-75.0 [facility] Comment on above: Performed By: #### C BC #### [facility] [address] [place] [address] Dr. Barrington Gmoez Platelet mean volume (Bld) [Entitic vol] 9.4 fL Critically low 9.5-13.5 [facility] Comment on above: Performed By: #### C BC #### [facility] [address] [place] [address] Dr. Barrington Gomez PLT 243 103/ul Normal 150-450 [facility] Comment on above: Performed By: #### C BC #### [facility] [address] [place] [address] Dr. Barrington Gomez RBC 5.07 106/ul Normal 4.20-5.40 [facility] Comment on above: Performed By: #### C BC #### [facility] [address] [place] [address] Dr. Barrington Gomez WBC 6.4 103/ul Normal 4.0-11.0 [facility] Comment on above: Performed By: #### C BC #### [facility] [address] [address] [address] Barrington Gomez FREE THYROXINE INDEX T7on FTI 3.07 Normal 1.30-4.50 [facility] Comment on above: Performed By: #### U AMIC #### [facility] [address] [address] [address] Barrington Gomez T3U 32.0 % Normal 30.0-39.0 [facility] Comment on above: Performed By: #### U AMIC #### [facility] [address] [address] [address] Barrington Gomez T4 [Mass/Vol] 9.60 ug/dL Normal 4.80-13.90 [facility] Comment on above: Performed By: #### U AMIC #### [facility] [address] [address] [address] Barrington Gomez GLYCOHEMOGLOBIN A1Con 2022 ADA RECOMMENDATION SEE BELOW Normal [facility] Comment on above: Result Comment: ADA RECOMMENDED LIMIT 4.0 - 6.0 ADA THERAPEUTIC TARGET < 7.0 ACTION SUGGESTED > 7.0 Performed By: #### A 1C #### [facility] [address] [address] [address] Barrington Gomez Glucose [Mass/Vol] 120 mg/dL Normal [facility] Comment on above: Performed By: #### A 1C #### [facility] [address] [address] [address] Barrington Gomez HbA1c (Bld) [Mass fraction] 5.8 % Normal 4.5-6.2 [facility] Comment on above: Performed By: #### A 1C #### [facility] [address] [address] [address] Barrington Gomez IRONon 08-29-2022 Iron [Mass/Vol] 85.0 ug/dL Normal 50.0-170.0 [facility] Comment on above: Performed By: #### U AMIC #### [facility] [address] [address] [address] Barrington Gomez LIPID PROFILEon 08-29-2022 CHOL-HDL RATIO NORM SEE BELOW Normal [facility] Comment on above: Result Comment: 3.3 - 4.4 LOW RISK 4.4 - 7.1 AVERAGE RISK 7.1 - 11.0 MODERATE RISK >11.0 HIGH RISK Performed By: #### U AMIC #### [facility] [address] [address] [address] Barrington Gomez Cholesterol [Mass/Vol] 226 mg/dL Critically high <=200 [facility] Comment on above: Performed By: #### U AMIC #### [facility] [address] [address] [address] Barrington Gomez Cholesterol in HDL [Mass/Vol] 93 mg/dL Critically high 40-60 [facility] Comment on above: Performed By: #### U AMIC #### [facility] [address] [address] [address] Barrington Gomez Cholesterol in LDL [Mass/Vol] 114.6 mg/dL Normal [facility] Comment on above: Performed By: #### U AMIC #### [facility] [address] [address] [address] Barrington Gomez Cholesterol.total/Choles terol in HDL [Mass ratio] 2.4 {ratio} Normal [facility] Comment on above: Performed By: #### U AMIC #### [facility] [address] [address] [address] Barrington Gomez HDL NORMAL > or = 60 mg/dl - LO W CARDIOVASCULAR RISK <40 mg/dl - HIGH CARDIOVASCULAR RISK Normal [facility] Comment on above: Performed By: #### U AMIC #### [facility] [address] [address] [address] Barrington Gomez LDL CALC NORMAL SEE BELOW Normal [facility] Comment on above: Result Comment: <100 mg/dl OPTIMAL 100 - 129 mg/dl NEAR OR ABOVE OPTIMAL 130 - 159 mg/dl BORDERLINE HIGH 160 - 189 mg/dl HIGH >190 mg/dl VERY HIGH Performed By: #### U AMIC #### [facility] [address] [address] [address] Barrington Gomez Triglyceride [Mass/Vol] 92 mg/dL Normal <=150 [facility] Comment on above: Performed By: #### U AMIC #### [facility] [address] [address] [address] Barrington Gomez VLDL CALC 18.4 mg/dL Normal [facility] Comment on above: Performed By: #### U AMIC #### [facility] [address] [address] [address] Barrington Gomez PROF 14(COMP METB)on 023 Albumin [Mass/Vol] 3.5 g/dL Normal 3.4-5.0 [facility] Comment on above: Performed By: #### U AMIC #### [facility] [address] [address] [address] Barrington Gomez Albumin/Globulin [Mass ratio] 1.1 {ratio} Normal [facility] Comment on above: Performed By: #### U AMIC #### [facility] [address] [address] [address] Barrington Gomez ALP [Catalytic activity/Vol] 71 U/L Normal 46-116 [facility] Comment on above: Performed By: #### U AMIC #### [facility] [address] [address] [address] Barrington Gomez ALT [Catalytic activity/Vol] 28 U/L Normal 14-59 [facility] Comment on above: Performed By: #### U AMIC #### [facility] [address] [address] [address] Barrington Gomez Anion gap [Moles/Vol] 10.4 mmol/L Normal [facility] Comment on above: Performed By: #### U AMIC #### [facility] [address] [address] [address] Barrington Gomez AST [Catalytic activity/Vol] 15 U/L Normal 15-37 [facility] Comment on above: Performed By: #### U AMIC #### [facility] [address] [address] [address] Barrington Gomez Bilirubin [Mass/Vol] 0.4 mg/dL Normal 0.2-1.0 [facility] Comment on above: Performed By: #### U AMIC #### [facility] [address] [address] [address] Barrington Gomez Calcium [Mass/Vol] 9.4 mg/dL Normal 8.5-10.1 [facility] Comment on above: Performed By: #### U AMIC #### [facility] [address] [address] [address] Barrington Gomez Chloride [Moles/Vol] 106 mmol/L Normal 98-107 [facility] Comment on above: Performed By: #### U AMIC #### [facility] [address] [address] [address] Barrington Gomez CO2 [Moles/Vol] 29.8 mmol/L Normal 21.0-32.0 [facility] Comment on above: Performed By: #### U AMIC #### [facility] [address] [address] [address] Barrington Gomez Creatinine [Mass/Vol] 0.91 mg/dL Normal 0.55-1.02 [facility] Comment on above: Performed By: #### U AMIC #### [facility] [address] [address] [address] Barrington Gomez EGFR-AF GUINEAN >60 Normal >=60 [facility] Comment on above: Performed By: #### U AMIC #### [facility] [address] [address] [address] Barrington Gomez EGFR-NON AF GUINEAN >60 Normal >=60 [facility] Comment on above: Performed By: #### U AMIC #### [facility] [address] [address] [address] Barrington Gomez Globulin (S) [Mass/Vol] 3.1 g/dL Normal [facility] Comment on above: Performed By: #### U AMIC #### [facility] [address] [address] [address] Barrington Gomez Glucose [Mass/Vol] 88 mg/dL Normal 74-106 [facility] Comment on above: Performed By: #### U AMIC #### [facility] [address] [address] [address] Barrington Gomez Potassium [Moles/Vol] 4.2 mmol/L Normal 3.5-5.1 [facility] Comment on above: Performed By: #### U AMIC #### [facility] [address] [address] [address] Barrington Gomez Protein [Mass/Vol] 6.6 g/dL Normal 6.4-8.2 [facility] Comment on above: Performed By: #### U AMIC #### [facility] [address] [address] [address] Barrington Gomez Sodium [Moles/Vol] 142 mmol/L Normal 136-145 [facility] Comment on above: Performed By: #### U AMIC #### [facility] [address] [address] [address] Barrington Gomez Urea nitrogen [Mass/Vol] 13.0 mg/dL Normal 7.0-18.0 [facility] Comment on above: Performed By: #### U AMIC #### [facility] [address] [address] [address] Barrington Gomez Urea nitrogen/Creatinine [Mass ratio] 14.3 mg/mg Normal [facility] Comment on above: Performed By: #### U AMIC #### [facility] [address] [place] [address] Dr. Barrington Gomez TSHon 08-29-2022 TSH 1.585 uIU/mL Normal 0.358-3.740 [facility] Comment on above: Performed By: #### U AMIC #### [facility] [address] [place] [address] Dr. Barrington Gomez Covid-19 PCR ([facility])on 04-01 SARS-CoV-2 (COVID-19) RNA EVAN+probe Ql (Unsp spec) Not detected Normal NOT DETECTED [facility] Comment on above: Result Comment: When [...] for this test is supported by the Cer[employer] Technician of Health and Human Service's declaration that [...] longer be used). Performed By: #### C VDTB #### [facility] [address] [place] [address] Dr. Barrington Gomez INFLUENZA A AND B AGon 04-28 INFLUBNEGH SEE BELOW Normal [facility] Comment on above: Result Comment: Nega tive for Flu B protein antigen. Infection due to Flu B cannot be ruled out. Flu B antigen in the sample may be below the detection limit of the test. Performed By: #### I NFLUAB #### [facility] [address] [place] [address] Dr. Barrington Gomez INFLUENZA A AG Positive Abnormal NEGATIVE SEE COMMENT [facility] Comment on above: Performed By: #### I NFLUAB #### [facility] [address] [place] [address] Dr. Barrington Gomez INFLUENZA B AG Negative Normal NEGATIVE SEE COMMENT [facility] Comment on above: Performed By: #### I NFLUAB #### [facility] [address] [place] [address] Dr. Barrington Gomez INFLUPOSH SEE BELOW Normal [facility] Comment on above: Result Comment: NOTE : Live attenuated influenzae vaccine viruses can cause a positive result for a rapid influenza diagnostic test if administered up to 7 days prior to rapid testing. Performed By: #### I NFLUAB #### [facility] [address] [address] [address] Barrington Gomez INTERNAL CONTROLS Within Normal Limits Normal Wi thin Normal Limits [facility] Comment on above: Performed By: #### I NFLUAB #### [facility] [address] [place], [place] [address] Dr. Barrington Gomez Basic Metabolic Panelon 01-30 Anion gap [Moles/Vol] 6 mmol/L Low 9 - 17 mmol/L [employer] [facility] Calcium [Mass/Vol] 8.5 mg/dL Low 8.6 - 10. 4 mg/dL [facility] Chloride [Moles/Vol] 108 mmol/L High 98 - 10 7 mmol/L [facility] CO2 [Moles/Vol] 24 mmol/L 20 - 31 mmol/L [facility] Creatinine [Mass/Vol] 0.93 mg/dL High 0.5 - 0.9 mg/dL [facility] GFR >60 60 - PI NF mL/min [facility] GFR Non- >60 60 - PINF mL/min [facility] GFR/1.73 sq M.predicted MDRD (S/P/Bld) [Vol rate/Area] [facility] Comment on above: Average GFR for 60-6 9 years old: 85 mL/min/1.73sq m Chronic Kidney Disease: <60 mL/min/1.73sq m Kidney failure: <15 mL/min/1.73sq m eGFR calculated using average adult body mass. Additional eGFR calculator available at: http://[email or web address]/multiple_crcl_2012.htm Glucose [Mass/Vol] 145 mg/dL High 70 - 99 mg/dL [facility] Interpretation and review of laboratory results Abnormal [facility] Potassium [Moles/Vol] 4.9 mmol/L 3.7 - 5.3 mmol/L [facility] Sodium [Moles/Vol] 138 mmol/L 135 - 144 mmol/L [facility] Urea nitrogen (BldV) [Mass/Vol] 9 mg/dL 8 - 23 mg/dL [facility] Urea nitrogen/Creatinine (Bld) [Mass ratio] 10 9 - 20 [facility] Basic Metabolic Profon 02-17 (cont.) Normal [facility] Comment on above: Result Comment: Aver age GFR for 60-69 years old: 85 mL/min/1.73sq m Chronic Kidney Disease: <60 mL/min/1.73sq m Kidney failure: <15 mL/min/1.73sq m eGFR calculated using average adult body mass. Additional eGFR calculator available at: http://www.[employer]/multiple_crcl_2012.htm Performed By: #### C DP, BMP #### [facility] [address] [place] [address] Kaitara Taraka: Jelani Liu MD Anion gap [Moles/Vol] 6 mmol/L Low 9-17 [facility] Comment on above: Performed By: #### C DP, BMP #### [facility] [address] [place] [address] Kaitara Taraka: Jelani Liu MD BUN/CRE Ratio 10 Normal 02-17 [facility] Comment on above: Performed By: #### C DP, BMP #### [facility] [facility] [address] [place] [address] Kaitara Taraka: Jelani Liu MD Calcium [Mass/Vol] 8.5 mg/dL Low 8.6-10.4 [facility] Comment on above: Performed By: #### C DP, BMP #### [facility] [address] [place] [address] Kaitara Taraka: Jelani Liu MD Chloride [Moles/Vol] 108 mmol/L High 98-107 [facility] Comment on above: Performed By: #### C DP, BMP #### [facility] [address] [place] [address] Kaitara Taraka: Jelani Liu MD CO2 [Moles/Vol] 24 mmol/L Normal 20-31 [facility] Comment on above: Performed By: #### C DP, BMP #### [facility] [address] [place] [address] Kaitara Taraka: Jelani Liu MD Creatinine [Mass/Vol] 0.93 mg/dL High 0.50-0.90 [facility] Comment on above: Performed By: #### C DP, BMP #### [facility] [address] [place] [address] Kaitara Taraka: Jelani Liu MD GFR, Amer >60 Normal >60 [facility] Comment on above: Performed By: #### C DP, BMP #### [facility] [address] [place] [address] Kaitara Taraka: Jelani Liu MD GFR,non Amer >60 Normal >60 [facility] Comment on above: Performed By: #### C DP, BMP #### [facility] [address] [place] [address] Kaitara Taraka: Jelani Liu MD Glucose [Mass/Vol] 145 mg/dL High 70-99 [facility] Comment on above: Performed By: #### C DP, BMP #### [facility] [address] [place] [address] Kaitara Taraka: Jelani Liu MD Potassium [Moles/Vol] 4.9 mmol/L Normal 3.7-5.3 [facility] Comment on above: Performed By: #### C DP, BMP #### [facility] [address] [place] [address] Kaitara Taraka: Jelani Liu MD Sodium [Moles/Vol] 138 mmol/L Normal 135-144 [facility] Comment on above: Performed By: #### C DP, BMP #### [facility] [address] [place], [place] [id number] Kaitara Taraka: Jelani Liu MD Urea nitrogen [Mass/Vol] 9 mg/dL Normal 8-23 [facility] Comment on above: Performed By: #### C DP, BMP #### [facility] [address] [place], [place] [id number] Kaitara Taraka: Jelani Liu MD CBC with Auto Differentialon 02-17-2022 Absolute Eos # [facility] Absolute Immature Granulocyte 0.05 [facility] Absolute Lymph # 1.[facility] Absolute Island # 0.63 [facility] Basophils (Bld) [#/Vol] 0.03 10*3/uL [facility] Basophils/100 WBC (Bld) 0 % 0 - 2 % [facility] Eosinophils/100 WBC (Bld) 0 % Low 1 - 4 % [facility] Hematocrit (Bld) [Volume fraction] 32.5 % Low 36.3 - 47.1 % [facility] Hemoglobin (Bld) [Mass/Vol] 9.8 g/dL Low 11.9 - 15.1 g/dL [facility] Immature granulocytes/100 WBC (Bld) 0 % 0 [facility] Interpretation and review of laboratory results Abnormal [facility] Lymphocytes/100 WBC (Bld) 11 % Low 24 - 43 % [facility] MCH (RBC) [Entitic mass] 25.3 pg 25. 2 - 33.5 pg [facility] MCHC (RBC) [Mass/Vol] 30.2 g/dL 28.4 - 34.8 g/dL [facility] MCV (RBC) [Entitic vol] 83.8 fL 82.6 - 102.9 fL [facility] Monocytes/100 WBC (Bld) 5 % 3 - 12 % [facility] NRBC Automated 0.0 0.0 per 100 WBC [facility] Platelet distribution width (Bld) [Ratio] 14.9 % High 11.8 - 14.4 % [facility] Platelet mean volume (Bld) [Entitic vol] 10.6 fL 8.1 - 13.5 fL [facility] Platelets (Bld) [#/Vol] 269 10*3/uL [facility] RBC (Bld) [#/Vol] 3.88 10*6/uL Low 3.95 - 5.1 1 m/uL [facility] RBC (Bld) [#/Vol] ANISOCYTOSIS PRESENT [facility] Segmented neutrophils/100 WBC (Bld) 84 % High 36 - 65 % [facility] Segs Absolute 11.41 High [facility] WBC (Bld) [#/Vol] 13.6 10*3/uL High [facility] CBC with Diffon 02-17-2022 Abs. Basophil 0.03 k/uL Normal 0.00-0.20 [facility] Comment on above: Performed By: #### C DP, BMP #### [facility] [address] [place] [address] Kaitara Taraka: Jelani Liu MD Abs. Eosinophil <0.03 Normal 0.00-0.44 [facility] Comment on above: Performed By: #### C DP, BMP #### [facility] [address] [place] [address] Kaitara Taraka: Jelani Liu MD Abs.Imm.Granulocyte 0.05 k/uL Normal 0.00-0.30 [facility] Comment on above: Performed By: #### C DP, BMP #### [facility] [address] [place] [address] Kaitara Taraka: Jelani Liu MD Abs.Neutrophil (Seg) 11.41 k/uL High 1.50-8.10 [facility] Comment on above: Performed By: #### C DP, BMP #### [facility] [address] [place] [address] Kaitara Taraka: Jelani Liu MD Basophils/100 WBC (Bld) 0 % Normal 0-2 [facility] Comment on above: Performed By: #### C DP, BMP #### [facility] [address] [place] [address] Kaitara Taraka: Jelani Liu MD Eosinophils/100 WBC (Bld) 0 % Low 1-4 [facility] Comment on above: Performed By: #### C DP, BMP #### [facility] [address] [place] [address] Kaitara Taraka: Jelani Liu MD Erythrocyte distribution width (RBC) [Ratio] 14.9 % High 11.8-14.4 [facility] Comment on above: Performed By: #### C DP, BMP #### [facility] [address] [place] [address] Kaitara Taraka: Jelani Liu MD Hematocrit (Bld) [Volume fraction] 32.5 % Low 36.3-47.1 [facility] Comment on above: Performed By: #### C DP, BMP #### [facility] [address] [place] [address] Kaitara Taraka: Jelani Liu MD Hemoglobin (Bld) [Mass/Vol] 9.8 g/dL Low 11.9-15.1 [facility] Comment on above: Performed By: #### C DP, BMP #### [facility] [address] [place] [address] Kaitara Taraka: Jelani Liu MD Immature granulocytes/100 WBC (Bld) 0 % Normal 0 [facility] Comment on above: Performed By: #### C DP, BMP #### [facility] [place] [address] Kaitara Taraka: Jelani Liu MD Lymphocytes (Bld) [#/Vol] 1.47 10*3/uL Normal 1.10-3.70 [facility] Comment on above: Performed By: #### C DP, BMP #### [facility] [address] [place] [address]. [place] [address] Kaitara Taraka: Jelani Liu MD Lymphocytes/100 WBC (Bld) 11 % Low 24-43 [facility] Comment on above: Performed By: #### C DP, BMP #### [facility] [address] [place] [address]. [place] [address] Kaitara Taraka: Jelani Liu MD MCH (RBC) [Entitic mass] 25.3 pg Normal 25.2-33.5 [facility] Comment on above: Performed By: #### C DP, BMP #### [facility] [address] [place] [address]. [place] [address] Kaitara Taraka: Jelani Liu MD MCHC (RBC) [Mass/Vol] 30.2 g/dL Normal 28.4-34.8 [facility] Comment on above: Performed By: #### C DP, BMP #### [facility] [address] [place] [address] Kaitara Taraka: Jelani Liu MD MCV (RBC) [Entitic vol] 83.8 fL Normal 82.6-102.9 [facility] Comment on above: Performed By: #### C DP, BMP #### [facility] [address] [place] [address]. [place] [address] Kaitara Taraka: Jelani Liu MD Monocytes (Bld) [#/Vol] 0.63 10*3/uL Normal 0.10-1.20 [facility] Comment on above: Performed By: #### C DP, BMP #### [facility] [address] [place] [address] Kaitara Taraka: Jelani Liu MD Monocytes/100 WBC (Bld) 5 % Normal 3-12 [facility] Comment on above: Performed By: #### C DP, BMP #### [facility] [address] [place] [address] Kaitara Taraka: Jelani Liu MD Neutrophil (Seg) 84 % High 36-65 [facility] Comment on above: Performed By: #### C DP, BMP #### [facility] [address] [place] [address]. [place] [address] Kaitara Taraka: Jelani Liu MD NRBC Automated 0.0 per 100 WBC Normal 0.0 [facility] Comment on above: Performed By: #### C DP, BMP #### [facility] [place] [address] Kaitara Taraka: Jelani Liu MD Platelet mean volume (Bld) [Entitic vol] 10.6 fL Normal 8.1-13.5 [facility] Comment on above: Performed By: #### C DP, BMP #### [facility] [facility] [place] [address] Kaitara Taraka: Jelani Liu MD Platelets (Bld) [#/Vol] 269 10*3/uL Normal 138-453 [facility] Comment on above: Performed By: #### C DP, BMP #### [facility] [place] [address] Kaitara Taraka: Jelani Liu MD RBC (Bld) [#/Vol] 3.88 10*6/uL Low 3.95-5.11 [facility] Comment on above: Performed By: #### C DP, BMP #### [facility] [address] [place] [address] Kaitara Taraka: Jelani Liu MD RBC morphology finding Nom (Bld) ANISOCYTOSIS PRESENT Normal [facility] Comment on above: Performed By: #### C DP, BMP #### [facility] [address] [place] [address] Kaitara Taraka: Jelani Liu MD WBC (Bld) [#/Vol] 13.6 10*3/uL High 3.5-11.3 [facility] Comment on above: Performed By: #### C DP, BMP #### [facility] [address] [place] [address] Kaitara Taraka: Jelani Liu MD FLUORO FOR SURGICAL PROCEDUR ESon 02-16-2022 FLUORO FOR SURGICAL PROCEDURES Radiology exam is complete. No Radiologist dictation. Please follow up with ordering provider. Final result Normal [facility] Radiology exam is complete. No Radiologist dictation. Please follow up with ordering provider. PN RIS CONSOLIDATED Cult,Urineon 01-28-2022 Cult,Urine Specimen Description .CLEAN CATCH URINE Culture NO SIGNIFICANT GROWTH Report Status FINAL 01/27/2022 Normal [facility] Comment on above: Performed By: #### U RC ####[facility] [address] [place] [address] Lab Director: JOAQUÍN [facility] [address] [place], [place] [id number] Lab Director: Terrance Luevano MD Culture, Urineon 01-27-2022 Bacteria identified Cx Nom (U) NO SIGNIFICANT GROWTH [facility] Specimen Description .CLEAN CATCH URINE [facility] APTTon 01-26-2022 aPTT Coag (Bld) [Time] 25.6 s Normal 23.9-33.8 [facility] Comment on above: Result Comment: IV Heparin Therapy Range: 62.0-94.0 Performed By: #### P T, CDP, PTT, BMP ####[facility] [id number] [place] [address] lab Director: Jelani Liu MD aPTT Coag (Bld) [Time] 25.6 s [facility] Comment on above: IV Heparin Therapy Range: 62.0-94.0 Basic Metabolic Panelon 12-30 Anion gap [Moles/Vol] 10 mmol/L 9 - 17 mmol/L [facility] [employer] Calcium [Mass/Vol] 8.8 mg/dL 8.6 - 10. 4 mg/dL [facility] [employer] Chloride [Moles/Vol] 104 mmol/L 98 - 10 7 mmol/L [facility] CO2 [Moles/Vol] 24 mmol/L 20 - 31 mmol/L [facility] Creatinine [Mass/Vol] 1.01 mg/dL High 0.5 - 0.9 mg/dL [facility] GFR >60 60 - PI NF mL/min [facility] GFR Non- 55 mL/min Low 60 - PINF mL/min [facility] GFR/1.73 sq M.predicted MDRD (S/P/Bld) [Vol rate/Area] [facility] Comment on above: Average GFR for 60-6 9 years old: 85 mL/min/1.73sq m Chronic Kidney Disease: <60 mL/min/1.73sq m Kidney failure: <15 mL/min/1.73sq m eGFR calculated using average adult body mass. Additional eGFR calculator available at: http://www.[employer]/multiple_crcl_2012.htm Glucose [Mass/Vol] 101 mg/dL High 70 - 99 mg/dL [facility] Interpretation and review of laboratory results Abnormal [facility] [employer] Potassium [Moles/Vol] 3.9 mmol/L 3.7 - 5.3 mmol/L [facility] Sodium [Moles/Vol] 138 mmol/L 135 - 144 mmol/L [facility] Urea nitrogen (BldV) [Mass/Vol] 13 mg/dL 8 - 23 mg/dL [facility] Urea nitrogen/Creatinine (Bld) [Mass ratio] 13 9 - 20 [facility] Basic Metabolic Profon 01-26 (cont.) Normal [facility] Comment on above: Result Comment: Aver age GFR for 60-69 years old: 85 mL/min/1.73sq m Chronic Kidney Disease: <60 mL/min/1.73sq m Kidney failure: <15 mL/min/1.73sq m eGFR calculated using average adult body mass. Additional eGFR calculator available at: http://www.[employer]/multiple_crcl_2012.htm Performed By: #### P T, CDP, PTT, BMP ####[facility] [id number] [facility] [place] [address] Lab Director: Jelani Liu MD Anion gap [Moles/Vol] 10 mmol/L Normal -17 [facility] Comment on above: Performed By: #### P T, CDP, PTT, BMP ####[facility] [address] [place] [address] Lab Director: Jelani Liu MD BUN/CRE Ratio 13 Normal -20 [facility] Comment on above: Performed By: #### P T, CDP, PTT, BMP ####[facility] [address] [place] [address] Lab Director: Jelani Liu MD Calcium [Mass/Vol] 8.8 mg/dL Normal 8.6-10.4 [facility] Comment on above: Performed By: #### P T, CDP, PTT, BMP ####[facility] [id number] [facility] [place] [address] Lab Director: Jelani Liu MD Chloride [Moles/Vol] 104 mmol/L Normal 98-107 [facility] Comment on above: Performed By: #### P T, CDP, PTT, BMP ####[facility] [address] [place] [address] Lab Director: Jelani Liu MD CO2 [Moles/Vol] 24 mmol/L Normal 20-31 [facility] Comment on above: Performed By: #### P T, CDP, PTT, BMP ####[facility] [address] [place] [address] Lab Director: Jelani Liu MD Creatinine [Mass/Vol] 1.01 mg/dL High 0.50-0.90 [facility] Comment on above: Performed By: #### P T, CDP, PTT, BMP ####[facility] [address] [place] [address] Lab Director: Jelani Liu MD GFR, Amer >60 Normal >60 [facility] Comment on above: Performed By: #### P T, CDP, PTT, BMP ####[facility] [address] [place] [address] Lab Director: Jelani Liu MD GFR,non Amer 55 mL/min Low >60 [facility] Comment on above: Performed By: #### P T, CDP, PTT, BMP ####[facility] [address] [place] [address] Lab Director: Jelani Liu MD Glucose [Mass/Vol] 101 mg/dL High 70-99 [facility] Comment on above: Performed By: #### P T, CDP, PTT, BMP ####[facility] [address] [place] [address] Lab Director: Jelani Liu MD Potassium [Moles/Vol] 3.9 mmol/L Normal 3.7-5.3 [facility] Comment on above: Performed By: #### P T, CDP, PTT, BMP ####[facility] [id number] [facility] [place] [address] Lab Director: Jelani Liu MD Sodium [Moles/Vol] 138 mmol/L Normal 135-144 [facility] Comment on above: Performed By: #### P T, CDP, PTT, BMP ####[facility] [id number] [facility] [place] [address] Lab Director: Jelani Liu MD Urea nitrogen [Mass/Vol] 13 mg/dL Normal 8-23 [facility] Comment on above: Performed By: #### P T, CDP, PTT, BMP ####[facility] [address] [facility] [place] [address] Lab Director: Jelani Liu MD CBC with Auto Differentialon 01-26-2022 Absolute Eos # 0.[address] [facility] Absolute Immature Granulocyte 0.00 [facility] Absolute Lymph # 5.08 High [facility] Comment on above: R/O Chronic Lymphopr oliferative Disorder, recommend peripheral blood Flow Cytometry, if clinically indicated. Absolute Island # 1.13 [facility] Basophils (Bld) [#/Vol] 0.09 10*3/uL [facility] Basophils/100 WBC (Bld) 1 % 0 - 2 % [facility] Eosinophils/100 WBC (Bld) 0 % Low 1 - 4 % [facility] Hematocrit (Bld) [Volume fraction] 38.1 % 36.3 - 47.1 % [facility] Hemoglobin (Bld) [Mass/Vol] 11.4 g/dL Low 11.9 - 15.1 g/dL [facility] Immature granulocytes/100 WBC (Bld) 0 % 0 [facility] Interpretation and review of laboratory results Abnormal [facility] Lymphocytes/100 WBC (Bld) 54 % High 24 - 43 % [facility] MCH (RBC) [Entitic mass] 25.7 pg 25. 2 - 33.5 pg [facility] MCHC (RBC) [Mass/Vol] 29.9 g/dL 28.4 - 34.8 g/dL [facility] MCV (RBC) [Entitic vol] 86.0 fL 82.6 - 102.9 fL [facility] Monocytes/100 WBC (Bld) 12 % 3 - 12 % [facility] NRBC Automated 0.0 0.0 per 100 WBC [facility] Platelet distribution width (Bld) [Ratio] 16.7 % High 11.8 - 14.4 % [facility] Platelet mean volume (Bld) [Entitic vol] 9.6 fL 8.1 - 13.5 fL [facility] Platelets (Bld) [#/Vol] 277 10*3/uL [facility] RBC (Bld) [#/Vol] 4.43 10*6/uL 3.95 - 5.1 1 m/uL [facility] Segmented neutrophils/100 WBC (Bld) 33 % Low 36 - 65 % [facility] Segs Absolute 3.10 [facility] WBC (Bld) [#/Vol] 9.4 10*3/uL [facility] CBC with Diffon 01-26-2022 Abs. Basophil 0.09 k/uL Normal 0.00-0.20 [facility] Comment on above: Performed By: #### P T, CDP, PTT, BMP ####[facility] [address] [place] [address] lab Director: Jelani Liu MD Abs.Imm.Granulocyte 0.00 k/uL Normal 0.00-0.30 [facility] Comment on above: Performed By: #### P T, CDP, PTT, BMP ####[facility] [address] [facility] [place] [address] Lab Director: Jelani Liu MD Abs.Neutrophil (Seg) 3.10 k/uL Normal 1.50-8.10 [facility] Comment on above: Performed By: #### P T, CDP, PTT, BMP ####[facility] [id number] [place] [address].[place] [address] Lab Director: Jelani Liu MD Basophils/100 WBC (Bld) 1 % Normal 0-2 [facility] Comment on above: Performed By: #### P T, CDP, PTT, BMP ####[facility] [address] [place] [address] Lab Director: Jelani Liu MD Eosinophils (Bld) [#/Vol] 0.00 10*3/uL Normal 0.00-0.44 [facility] Comment on above: Performed By: #### P T, CDP, PTT, BMP ####[facility] [id number] [place] [address] Lab Director: Jelani Liu MD Eosinophils/100 WBC (Bld) 0 % Low 1-4 [facility] Comment on above: Performed By: #### P T, CDP, PTT, BMP ####[facility] [id number] [place] [address] Lab Director: Jelani Liu MD Immature granulocytes/100 WBC (Bld) 0 % Normal 0 [facility] Comment on above: Performed By: #### P T, CDP, PTT, BMP ####[facility] [address] [place] [address] Lab Director: Jelani Liu MD Lymphocytes (Bld) [#/Vol] 5.08 10*3/uL High 1.10-3.70 [facility] Comment on above: Result Comment: R/O Chronic Lymphoproliferative Disorder, recommend peripheral blood Flow Cytometry, if clinically indicated. Performed By: #### P T, CDP, PTT, BMP ####[facility] [address] [place] [phone] Director: Jelani Liu MD Lymphocytes/100 WBC (Bld) 54 % High 24-43 [facility] Comment on above: Performed By: #### P T, CDP, PTT, BMP ####[facility] [address] [place] [address] Lab Director: Jelani Liu MD Monocytes (Bld) [#/Vol] 1.13 10*3/uL Normal 0.10-1.20 [facility] Comment on above: Performed By: #### P T, CDP, PTT, BMP ####[facility] [id number] [place], [place] [address]ia [place] [address] Lab Director: Jelani Liu MD Monocytes/100 WBC (Bld) 12 % Normal 3-12 [facility] Comment on above: Performed By: #### P T, CDP, PTT, BMP ####[facility] [address] [place], [place] [address]ia [place] [address] Lab Director: Jelani Liu MD Neutrophil (Seg) 33 % Low 36-65 [facility] Comment on above: Performed By: #### P T, CDP, PTT, BMP ####[facility] [id number] [facility] [place] [address] Lab Director: Jelani Liu MD Erythrocyte distribution width (RBC) [Ratio] 16.7 % High 11.8-14.4 [facility] Comment on above: Performed By: #### P T, CDP, PTT, BMP ####[facility] [id number] [place], [place] [address]ia [place] [phone] Director: Jelani Liu MD Hematocrit (Bld) [Volume fraction] 38.1 % Normal 36.3-47.1 [facility] Comment on above: Performed By: #### P T, CDP, PTT, BMP ####[facility] [address] [facility] [place] [address] Lab Director: Jelani Liu MD Hemoglobin (Bld) [Mass/Vol] 11.4 g/dL Low 11.9-15.1 [facility] Comment on above: Performed By: #### P T, CDP, PTT, BMP ####[facility] [address] [place] [address] Lab Director: Jelani Liu MD MCH (RBC) [Entitic mass] 25.7 pg Normal 25.2-33.5 [facility] Comment on above: Performed By: #### P T, CDP, PTT, BMP ####[facility] [id number] [place] [address] Lab Director: Jelani Liu MD MCHC (RBC) [Mass/Vol] 29.9 g/dL Normal 28.4-34.8 [facility] Comment on above: Performed By: #### P T, CDP, PTT, BMP ####[facility] [id number] [place] [address] Lab Director: Jelani Liu MD MCV (RBC) [Entitic vol] 86.0 fL Normal 82.6-102.9 [facility] Comment on above: Performed By: #### P T, CDP, PTT, BMP ####[facility] [id number] [place] [address] Lab Director: Jelani Liu MD NRBC Automated 0.0 per 100 WBC Normal 0.0 [facility] Comment on above: Performed By: #### P T, CDP, PTT, BMP ####[facility] [id number] [facility] [place] [address] Lab Director: Jelani Liu MD Platelet mean volume (Bld) [Entitic vol] 9.6 fL Normal 8.1-13.5 [facility] Comment on above: Performed By: #### P T, CDP, PTT, BMP ####[facility] [address] [facility] [place] [address] Lab Director: Jelani Liu MD Platelets (Bld) [#/Vol] 277 10*3/uL Normal 138-453 [facility] Comment on above: Performed By: #### P T, CDP, PTT, BMP ####[facility] [id number] [facility] [place] [address] Lab Director: Jelani Liu MD RBC (Bld) [#/Vol] 4.43 10*6/uL Normal 3.95-5.11 [facility] Comment on above: Performed By: #### P T, CDP, PTT, BMP ####[facility] [address] [facility] [place] [address] Lab Director: Jelani Liu MD WBC (Bld) [#/Vol] 9.4 10*3/uL Normal 3.5-11.3 [facility] Comment on above: Performed By: #### P T, CDP, PTT, BMP ####[facility] [address] [facility] [place] [address] Lab Director: Jelani Liu MD MRSA DNA Probe, Nasalon 12-30 MRSA, DNA, Nasal Negative NEGATIVE [facility] Comment on above: NEGATIVE: MRSA DNA n ot detected by nucleic acid amplification. Results should be used as an adjunct to nosocomial control efforts to identify patients needing enhanced precautions. The test is not intended to identify patients with staphylococcal infections. Results should not be used to guide or monitor treatment for MRSA infections. Specimen Description .NASAL SWAB [facility] MRSA, DNA, Nasalon MRSA, DNA, Nasal Negative Normal NEG [facility] Comment on above: Result Comment: NEGA TIVE: MRSA DNA not detected by nucleic acid amplification. Results should be used as an adjunct to nosocomial control efforts to identify patients needing enhanced precautions. The test is not intended to identify patients with staphylococcal infections. Results should not be used to guide or monitor treatment for MRSA infections. Performed By: #### M RSANO ####[facility] [id number] [place] [address] Lab Director: Jelani Liu [facility] [address] Lab Director: Terrance Luevano MD Specimen Description .NASAL SWAB Normal [facility] Comment on above: Performed By: #### M RSANO ####[facility] [id number] [place] [address] Lab Director: Jyoti Membreno[address] [id number] Lab Director: Terrance Luevano MD No Panel Informationon 01-26 [facility] PTon 01-26-2022 INR Coag (PPP) [Relative time] 0.9 {INR} Normal [facility] Comment on above: Result Comment: Non-therapeutic Range: INR = 0.9-1.2 Therapeutic Range: Moderate Anticoagulant Intensity: INR = 2.0-3.0 High Anticoagulant Intensity: INR = 2.5-3.5 Performed By: #### P T, CDP, PTT, BMP #### [facility] [address] [place] [address] Kaitara Taraka: Jelani Liu MD PT Coag (PPP) [Time] 12.1 s Normal 11.5-14.2 [facility] Comment on above: Performed By: #### P T, CDP, PTT, BMP #### [facility] [address] [place] [address] Kaitara Taraka: Jelani Liu MD Protime-INRon 01-26-2022 INR Coag (Bld) [Relative time] 0.9 {INR} [facility] Comment on above: Non-therapeutic Range: INR = 0.9-1.2 Therapeutic Range: Moderate Anticoagulant Intensity: INR = 2.0-3.0 High Anticoagulant Intensity: INR = 2.5-3.5 PT Coag (PPP) [Time] 12.1 s [facility] Urinalysison 01-26-2022 Bilirubin Urine Negative NEGATIVE [facility] Color, UA Yellow Yellow [facility] Glucose, Ur Negative NEGATIVE [facility] Interpretation and review of laboratory results Abnormal [facility] Ketones Ql (U) Negative NEGATIVE [facility] Leukocyte esterase Test strip Ql (U) Negative NEGATIVE [facility] Nitrite, Urine Negative NEGATIVE [facility] pH, UA 5.5 5 - 8 [facility] Protein, UA Negative NEGATIVE [facility] Specific Laurel, UA 1.037 High 1.005 - 1.03 [facility] Turbidity UA Clear Clear [facility] Urinalysis Comments Microscopic exam not performed based on chemical results unless requested in original order. [facility] Urine Hgb Negative NEGATIVE [facility] Urobilinogen, Urine Normal Normal [facility] Urinalysis, Routineon 2021 Bilirubin, SemiQt,Ur Negative Normal NEG [facility] Comment on above: Performed By: #### U A #### [facility] [address] [place] [address] Kaitara Taraka: Jelani Liu MD Blood, Urine Negative Normal NEG [facility] Comment on above: Performed By: #### U A #### [facility] [address] [facility] [place] [address] Kaitara Taraka: Jelani Liu MD Clarity (U) Clear Normal CLEAR [facility] Comment on above: Performed By: #### U A #### [facility] [address] [facility] [place] [address] Kaitara Taraka: Jelani Liu MD Color (U) Yellow Normal YEL [facility] Comment on above: Performed By: #### U A #### [facility] [address] [facility] [place] [address] Kaitara Taraka: Jelani Liu MD Comment Microscopic exam not performed based on chemical results unless requested in Normal [facility] Comment on above: Result Comment: orig inal order. Performed By: #### U A #### [facility] [address] [place] [address]. [place] [address] Kaitara Taraka: Jelani Liu MD Glucose Ql (U) Negative Normal NEG [facility] Comment on above: Performed By: #### U A #### [facility] [address] [facility] [place] [address] Kaitara Taraka: Jelani Liu MD Ketones Ql (U) Negative Normal NEG [facility] Comment on above: Performed By: #### U A #### [facility] [facility] [place] [address] Kaitara Taraka: Jelani Liu MD Leukocyte esterase Test strip Ql (U) Negative Normal NEG [facility] Comment on above: Performed By: #### U A #### [facility] [address] [place] [address]. [place] [address] Kaitara Taraka: Jelani Liu MD Nitrite,Ur Negative Normal NEG [facility] Comment on above: Performed By: #### U A #### [facility] [address] [place], [place] [address], [place] [address] Kaitara Taraka: Jelani Liu MD PH,Ur 5.5 Normal 5.0-8.0 [facility] Comment on above: Performed By: #### U A #### [facility] [address] [place] [address] Kaitara Taraka: Jelani Liu MD Protein Ql (U) Negative Normal NEG [facility] Comment on above: Performed By: #### U A #### [facility] [address] [place] [address] Kaitara Taraka: Jelani Liu MD Spec. Laurel,Ur 1.037 High 1.005-1.030 [facility] Comment on above: Performed By: #### U A #### [facility] [address] [place] [address] Kaitara Taraka: Jelani Liu MD Urobilinogen,Ur Normal Normal NORM [facility] Comment on above: Performed By: #### U A #### [facility] [address] [place] [address] Kaitara Taraka: Jelani Liu MD Activated partial thrombopla stin time (aPTT) in platelet poor plasma by coagulation aOrdered By: Dalia Villasenor on 12-29-2021 aPTT Coag (PPP) [Time] 31.0 s 25.1-36.5 [facility] [place] Albumin [Mass/volume] in Ser um or PlasmaOrdered By: Dalia Villasenor on 12-29-2021 Albumin [Mass/Vol] 4.0 g/dL 3.2-5.5 [facility] Albumin [Mass/Vol] 3.5 g/dL 2.9-4.4 [facility] Albumin/Protein.total in 24 hour Urine by ElectrophoresisOrdered By: Dalia Villasenor on 12-29-2021 Albumin Elph (24H U) [Mass fraction] 27.5 % . [facility] Automated erythrocytes count in urine sediment (number/area)Ordered By: Dalia Villasenor on 12-29-2021 RBC Auto (Urine sed) [#/Area] 3-4 [HPF] 0-4 [facility] Automated leukocytes count i n urine sediment (number/area)Ordered By: Dalia Villasenor on 12-29-2021 WBC Auto (Urine sed) [#/Area] None seen [HPF] 0-4 [facility] Basophils Auto (Bld) [#/Vol] Ordered By: Dalia Villasenor on 12-29-2021 Basophils (Bld) [#/Vol] 0.1 10*3/uL 0.0-0.2 [facility] Basophils/100 WBC Auto (Bld) Ordered By: Dalia Villasenor on 12-29-2021 Basophils/100 WBC (Bld) 1.4 % . [facility] Bilirubin Auto test strip Ql (U)Ordered By: Dalia Villasenor on 12-29-2021 Bilirubin Ql (U) Negative Negative [facility] Blood hemoglobin measurement (mass/volume)Ordered By: Dalia Villasenor on 12-29-2021 Hemoglobin (Bld) [Mass/Vol] 12.2 g/dL 11.8-15.4 [facility] Blood leukocytes automated c ount (number/volume)Ordered By: Dalia Villasenor on 12-29-2021 WBC (Bld) [#/Vol] 6.9 10*3/uL 4.5-11.0 [facility] Borrelia burgdorferi Ab [Int erpretation] in SerumOrdered By: Dalia Villasenor on 12-29-2021 B. burgdorferi Ab (S) [Interp] N/A [facility] Borrelia burgdorferi IgG Ab [Presence] in Serum or Plasma by ImmunoassayOrdered By: Dalia Villasenor on 12-29-2021 B. burgdorferi IgG IA Ql N/A [facility] Borrelia burgdorferi IgG+IgM Ab [Presence] in Serum by ImmunoassayOrdered By: Dalia Villasenor on 12-29-2021 B. burgdorferi IgG+IgM IA Ql (S) Negative Negative [facility] Comment on above: Lyme Antibody Negati ve No laboratory evidence of infection with B. burgdorferi (Lyme disease). Negative results may occur in patients recently infected (less than or equal to 14 days) with B. burgdorferi. If recent infection is suspected, repeat testing on a new sample collected in 7 to 14 days is recommended. Performed at: [place] - [facility] [address] [id number] Kaitara Taraka: Castro Lugo PhD, Phone: [phone] Borrelia burgdorferi IgM Ab [Presence] in Serum or Plasma by ImmunoassayOrdered By: Dalia Villasenor on 12-29-2021 B. burgdorferi IgM IA Ql N/A [facility] C reactive protein [Mass/vol ume] in Serum or PlasmaOrdered By: Dalia Villasenor on 12-29-2021 CRP [Mass/Vol] 1.3 mg/dL 0.0-1.[address] [facility] [address] biopsyOrdered By: Dalia Villasenor on 12-29-2021 CT biopsy 4.5 U/L 3.3-10.3 [facility] Comment on above: Performed at: [place] [facility] [address] [id number] Kaitara Taraka: Castro Lugo PhD, Phone: [phone] Creatine kinase [Enzymatic a ctivity/volume] in Serum or PlasmaOrdered By: Dalia Villasenor on 12-29-2021 CK [Catalytic activity/Vol] 77 U/L 22-269 [facility] Creatinine and Glomerular fi ltration rate.predicted panel (S/P/Bld)Ordered By: Dalia Villasenor on 12-29-2021 Creatinine [Mass/Vol] 1.14 mg/dL 0.44-1.03 [facility] Dilute Samuel's viper venom timeOrdered By: Dalia Villasenor on 12-29-2021 dRVVT Coag (PPP) [Time] 34.3 s 0.0-47.0 [facility] Eosinophils Auto (Bld) [#/Vo l]Ordered By: Dalia Villasenor on 12-29-2021 Eosinophils (Bld) [#/Vol] 0.1 10*3/uL 0.0-0.45 [facility] Eosinophils/100 WBC Auto (Bl d)Ordered By: Dalia Villasenor on 12-29-2021 Eosinophils/100 WBC (Bld) 1.3 % . [facility] Erythrocyte distribution wid th Auto (RBC) [Ratio]Ordered By: Dalia Villasenor on 12-29-2021 Erythrocyte distribution width (RBC) [Ratio] 17.9 % 11.9-15.3 [facility] Erythrocyte sedimentation ra te by Photometric methodOrdered By: Dalia Villasenor on 12-29-2021 ESR Photometric method (Bld) [Velocity] 17 mm/hr 0-29 [facility] Estimated glomerular filtrat ion rate (GFR) non- AmericanOrdered By: Dalia Villasenor on 12-29-2021 GFR/1.73 sq M.predicted among non-blacks MDRD (S/P/Bld) [Vol rate/Area] 48 mL/Min [facility] Gamma globulin/Protein.total in 24 hour Urine by ElectrophoresisOrdered By: Dalia Villasenor on 12-29-2021 Gamma globulin Elph (24H U) [Mass fraction] 23.1 % . [facility] Globulin Calc (S) [Mass/Vol] Ordered By: Dalia Villasenor on 12-29-2021 Globulin (S) [Mass/Vol] 2.4 g/dL [facility] Hematocrit Auto (Bld) [Volum e fraction]Ordered By: Dalia Villasenor on 12-29-2021 Hematocrit (Bld) [Volume fraction] 39.0 % 34.0-46.4 [facility] Hepatitis B virus surface Ag [Presence] in Serum or Plasma by ImmunoassayOrdered By: Dalia Villasenor on 12-29-2021 HBV surface Ag IA Ql Negative Negative [facility] IgA [Mass/volume] in Serum o r PlasmaOrdered By: Dalia Villasenor on 12-29-2021 IgA [Mass/Vol] 137 mg/dL 87-352 [facility] IgG [Mass/volume] in Serum o r PlasmaOrdered By: Dalia Villasenor on 12-29-2021 IgG [Mass/Vol] 524 mg/dL [phone] [facility] IgM [Mass/volume] in Serum o r PlasmaOrdered By: Dalia Villasenor on 12-29-2021 IgM [Mass/Vol] 373 mg/dL 26-217 [facility] Immunofixation for UrineOrde red By: Dalia Villasenor on 12-29-2021 Interpretation Immunofixation (U) [Interp] See comment . [facility] Comment on above: No monoclonality det ected. Performed at: - [facility] [id number] Kaitara Taraka: Castro Lugo PhD, Phone: [phone] Ketones Auto test strip (U) [Mass/Vol]Ordered By: Dalia Villasenor on 12-29-2021 Ketones (U) [Mass/Vol] Negative Negative [facility] - Chemistry and C hemistry - challengeOrdered By: Dalia Villasenor on 12-29-2021 Cobalamin (Vitamin B12) [Mass/Vol] 193 pg/mL 180-914 [facility] - CoagulationOrde red By: Dalia Villasenor on 12-29-2021 PT Coag (PPP) [Time] 10.4 s 9.0-12.9 [facility] - Hematology and Cell countsOrdered By: Dalia Villasenor on 12-29-2021 Nucleated RBC/100 WBC (Bld) [Ratio] 0.0 % 0-0.5 [facility] - UrinalysisOrder ed By: Dalia Villasenor on 12-29-2021 Hyaline casts LM Ql (Urine sed) 0-8 [LPF] 0-8 [facility] Lupus anticoagulant [Interpr etation] in Platelet poor plasmaOrdered By: Dalia Villasenor on 12-29-2021 Lupus anticoagulant (PPP) [Interp] Comment: . [facility] Comment on above: No lupus anticoagula nt was detected. Performed at: - [facility] [id number] Kaitara Taraka: Bharath Linares MD, Phone: [phone] Lymphocytes Auto (Bld) [#/Vo l]Ordered By: Dalia Villasenor on 12-29-2021 Lymphocytes (Bld) [#/Vol] 3.1 10*3/uL 1.00-4.8 [facility] Lymphocytes/100 WBC Auto (Bl d)Ordered By: Dalia Villasenor on 12-29-2021 Lymphocytes/100 WBC (Bld) 44.5 % . [facility] MCH Auto (RBC) [Entitic mass ]Ordered By: Dalia Villasenor on 12-29-2021 MCH (RBC) [Entitic mass] 25.6 pg 24.7-34.3 [facility] MCHC Auto (RBC) [Mass/Vol]Or dered By: Dalia Villasenor on 12-29-2021 MCHC (RBC) [Mass/Vol] 31.4 g/dL 32.0-35.0 [facility] MCV Auto (RBC) [Entitic vol] Ordered By: Dalia Villasenor on 12-29-2021 MCV (RBC) [Entitic vol] 81.7 fL 80-100 [facility] Monocytes Auto (Bld) [#/Vol] Ordered By: Dalia Villasenor on 12-29-2021 Monocytes (Bld) [#/Vol] 0.8 10*3/uL 0.0-0.8 [facility] Monocytes/100 WBC Auto (Bld) Ordered By: Dalia Villasenor on 12-29-2021 Monocytes/100 WBC (Bld) 11.6 % . [facility] Neutrophils Auto (Bld) [#/Vo l]Ordered By: Dalia Villasenor on 12-29-2021 Neutrophils (Bld) [#/Vol] 2.8 10*3/uL 1.8-7.7 [facility] Neutrophils/100 WBC Auto (Bl d)Ordered By: Dalia Villasenor on 12-29-2021 Neutrophils/100 WBC (Bld) 41.2 % . [facility] No Panel InformationOrdered By: Dalia Villasenor on 12-29-2021 Estimated GFR () 58 mL/Min [facility] Comment on above: GFR estimated refere nce range: According to KDOQI guidelines, <60 ml/min/1.73m2 is sufficient to diagnose a patient with chronic kidney disease. Hepatitis B Core Total Antibody Negative Negative [facility] Comment on above: Performed at: [address] [id number] Kaitara Taraka: Castro Lugo PhD, Phone: [phone] Hepatitis C Interpretation See comment . [facility] Comment on above: Negative Not infected with HCV, unless recent infection is suspected or other evidence exists to indicate HCV infection. Hepatitis C RNA Quantitative N/A [facility] Creatinine Clearance (Chem N/A [facility] Protein Electrophoresis M-Luis Comment: g/dL Not Observed [facility] Comment on above: ASYMMETRICAL GAMMA Protein Electrophoresis Note See comment . [facility] Comment on above: Protein electrophore sis scan will follow via computer, mail, or assistant hvac mechanic delivery. Performed at: [facility] [id number] Kaitara Taraka: Castro Lugo PhD, Phone: [phone] Serum Immunofixation Comment: . [facility] Comment on above: Presence of monoclon al protein is unclear at this time. Suggest repeat in 3 to 6 months if clinically indicated. Total Complement (CH50) 60 U/mL >41 [facility] Comment on above: Age Male [...] determine out of range values. Performed at: [facility] [id number] Kaitara Taraka: Castro Lugo PhD, Phone: [phone] Urine Random Prot Electrophor Note See comment . [facility] Comment on above: Protein electrophore sis scan will follow via computer, mail, or assistant hvac mechanic delivery. Platelet mean volume Auto (B ld) [Entitic vol]Ordered By: Dalia Villasenor on 12-29-2021 Platelet mean volume (Bld) [Entitic vol] 8.9 fL 6.3-10.7 [facility] Platelet poor plasma interna tional normalized ratio (INR) by coagulation assay (relatOrdered By: Dalia Villasenor on 12-29-2021 INR Coag (PPP) [Relative time] 0.9 {INR} [facility] Comment on above: INR Therapeutic Rang [...] Coag (PPP) [Relative time] 34.6 sec 0.0-47.6 [facility] Platelets Auto (Bld) [#/Vol] Ordered By: Dalia Villasenor on 12-29-2021 Platelets (Bld) [#/Vol] 288 10*3/uL 150-450 [facility] Protein Auto test strip (U) [Mass/Vol]Ordered By: Dalia Villasenor on 12-29-2021 Protein (U) [Mass/Vol] Negative Negative [facility] Protein [Mass/volume] in Ser um or PlasmaOrdered By: Dalia Villasenor on 12-29-2021 Protein [Mass/Vol] 6.4 g/dL 6.0-8.5 [facility] Protein [Mass/volume] in Uri neOrdered By: Dalia Villasenor on 12-29-2021 Protein (U) [Mass/Vol] 6.1 mg/dL Not Estab. [facility] Protein.monoclonal/Protein.t otal in 24 hour Urine by ElectrophoresisOrdered By: Dalia Villasenor on 12-29-2021 Protein.monoclonal Elph (24H U) [Mass fraction] Not observed % Not Observed [facility] RBC Auto (Bld) [#/Vol]Ordere d By: Dalia Villasenor on 12-29-2021 RBC (Bld) [#/Vol] 4.77 10*6/uL 3.60-5.00 [facility] Reagin Ab [Presence] in Seru m by RPROrdered By: Dalia Villasenor on 12-29-2021 Reagin Ab RPR Ql (S) Non-Reactive Non Reactive [facility] Comment on above: Performed at: [place] - [facility] [address] [id number] Kaitara Taraka: Castro Lugo PhD, Phone: [phone] Serum globulin measurement ( mass/volume)Ordered By: Dalia Villasenor on 12-29-2021 Globulin (S) [Mass/Vol] 2.9 g/dL 2.2-3.9 [facility] Serum hepatitis B virus surf shellie antibody detectionOrdered By: Dalia Villasenor on 12-29-2021 HBV surface Ab Ql (S) Non-Reactive . [facility] Comment on above: Non Reactive: Incons istent with immunity, less than 10 mIU/mL Reactive: Consistent with immunity, greater than 9.9 mIU/mL Serum homogeneous pattern an tinuclear antibody (PATRICIA) titerOrdered By: Dalia Villasenor on 12-29-2021 Homogenous nuclear Ab pattern (S) [Titer] N/A [facility] Serum nuclear antibody titer Ordered By: Dalia Villasenor on 12-29-2021 Nuclear Ab (S) [Titer] Negative . [facility] Comment on above: Negative <1:80 Borderline 1:80 Positive >1:80 ICAP nomenclature: AC-[id number] For more information about Hep-2 cell patterns use ANApatterns.org, the official website for the International Consensus on Antinuclear Antibody (PATRICIA) Patterns (ICAP). Performed at: [place] - [facility] [address] [id number] Kaitara Taraka: Castro Lugo PhD, Phone: [phone] Serum or plasma alanine schroeder otransferase measurement without P-5'-P (enzymatic activiOrdered By: Dalia Villasenor on 12-29-2021 ALT No additional P-5'-P [Catalytic activity/Vol] 20 U/L 10-60 [facility] Serum or plasma albumin/glob ulin mass ratioOrdered By: Dalia Villasenor on 12-29-2021 Albumin/Globulin [Mass ratio] 1.7 {ratio} [facility] Albumin/Globulin [Mass ratio] 1.2 {ratio} 0.7-1.7 [facility] Serum or plasma alkaline michelle sphatase measurement (enzymatic activity/volume)Ordered By: Dalia Villasenor on 12-29-2021 ALP [Catalytic activity/Vol] 57 U/L 32-92 [facility] Serum or plasma alpha 1 glob ulin measurement by electrophoresis (mass/volume)Ordered By: Dalia Villasenor on 12-29-2021 Alpha 1 globulin Elph [Mass/Vol] 0.2 g/dL 0.0-0.4 [facility] Serum or plasma alpha 2 glob ulin measurement by electrophoresis (mass/volume)Ordered By: Dalia Villasenor on 12-29-2021 Alpha 2 globulin Elph [Mass/Vol] 0.8 g/dL 0.4-1.0 [facility] Serum or plasma aspartate am inotransferase measurement (enzymatic activity/volume)Ordered By: Dalia Villasenor on 12-29-2021 AST [Catalytic activity/Vol] 22 U/L 10-42 [facility] Serum or plasma beta globuli n measurement by electrophoresis (mass/volume)Ordered By: Dalia Villasenor on 12-29-2021 Beta globulin Elph [Mass/Vol] 1.1 g/dL 0.7-1.3 [facility] Serum or plasma calcium lola urement (mass/volume)Ordered By: Dalia Villasenor on 12-29-2021 Calcium [Mass/Vol] 9.7 mg/dL 8.2-10.2 [facility] Serum or plasma chloride catia surement (moles/volume)Ordered By: Dalia Villasenor on 12-29-2021 Chloride [Moles/Vol] 101 mmol/L 95-114 [facility] Serum or plasma chromatin an tibody assay (units/volume)Ordered By: Dalia Villasenor on 12-29-2021 Chromatin Ab Qn <0.2 AI 0.0-0.9 [facility] Comment on above: Performed at: [employer] [address] [id number] Kaitara Taraka: Castro Lugo PhD, Phone: [phone] Serum or plasma complement C 3 measurement (mass/volume)Ordered By: Dalia Villasenor on 12-29-2021 Complement C3 [Mass/Vol] 133 mg/dL 82-167 [facility] Comment on above: Performed at: [employer] [address] [id number] Kaitara Taraka: Castro Lugo PhD, Phone: [phone] Serum or plasma complement C 4 measurement (mass/volume)Ordered By: Dalia Villasenor on 12-29-2021 Complement C4 [Mass/Vol] 27 mg/dL 12-38 [facility] Serum or plasma gamma globul in measurement by electrophoresis (mass/volume)Ordered By: Dalia Villasenor on 12-29-2021 Gamma globulin Elph [Mass/Vol] 0.7 g/dL 0.4-1.8 [facility] Serum or plasma glucose lola urement (mass/volume)Ordered By: Dalia Villasenor on 12-29-2021 Glucose [Mass/Vol] 101 mg/dL 70-100 [facility] Comment on above: ADA recommended refe [...] IA [Rel units/Vol] 0.1 s/co ratio 0.0-0.9 [facility] Serum or plasma potassium me asurement (moles/volume)Ordered By: Dalia Villasenor on 12-29-2021 Potassium [Moles/Vol] 4.4 mmol/L 3.5-5.1 [facility] Serum or plasma sodium measu rement (moles/volume)Ordered By: Dalia Villasenor on 12-29-2021 Sodium [Moles/Vol] 137 mmol/L 136-146 [facility] Serum or plasma thyroglobuli n antibody assay (units/volume)Ordered By: Dalia Villasenor on 12-29-2021 Thyroglobulin Ab Qn [IU]/mL 0.0-0.9 [facility] Comment on above: Thyroglobulin Antibo dy measured by [employer] Performed at: [place] - [facility] [address] [id number] Kaitara Taraka: Castro Lugo PhD, Phone: [phone] Serum or plasma thyroperoxid ase antibody assay (units/volume)Ordered By: Dalia Villasenor on 12-29-2021 TPO Ab Qn 28 [IU]/mL 0-34 [facility] Comment on above: Performed at: [address] [id number] Kaitara Taraka: Castro Lugo PhD, Phone: [phone] Serum or plasma total biliru bin measurement (mass/volume)Ordered By: Dalia Villasenor on 12-29-2021 Bilirubin [Mass/Vol] 0.5 mg/dL 0.3-1.2 [facility] Serum or plasma total carbon dioxide measurement (moles/volume)Ordered By: Dalia Villasenor on 12-29-2021 CO2 [Moles/Vol] 23.4 mmol/L 22.0-30.[address] [facility] Serum or plasma urea nitroge n measurement (mass/volume)Ordered By: Dalia Villasenor on 12-29-2021 Urea nitrogen [Mass/Vol] 8 mg/dL 9-23 [facility] Squamous epithelial cells de tection in urine sediment by light microscopyOrdered By: Dalia Villasenor on 12-29-2021 Epithelial cells.squamous LM Ql (Urine sed) None seen [HPF] 0-2 [facility] TSH DL <= 0.005 mIU/L QnOrde red By: Dalia Villasenor on 12-29-2021 TSH Qn 1.83 m[IU]/L 0.45-5.33 [facility] TT plasOrdered By: Dalia akers on 12-29-2021 Thrombin time Coag (PPP) [Time] 19.1 sec 0.0-23.0 [facility] Thyroxine (T4) free [Mass/vo lume] in Serum or PlasmaOrdered By: Dalia Villasenor on 12-29-2021 Free T4 [Mass/Vol] 0.98 ng/dL 0.61-1.12 [facility] Urine alpha 1 globulin/total protein by electrophoresisOrdered By: Dalia Villasenor on 12-29-2021 Alpha 1 globulin Elph (U) [Mass fraction] 3.9 % . [facility] Urine alpha 2 globulin/total protein ratio by electrophoresisOrdered By: Dalia Villasenor on 12-29-2021 Alpha 2 globulin Elph (U) [Mass fraction] 19.7 % . [facility] Urine appearanceOrdered By: Dalia Villasenor on 12-29-2021 Appearance (U) Clear Clear [facility] Urine bacteria detection by automated methodOrdered By: Dalia Villasenor on 12-29-2021 Bacteria Auto Ql (U) None seen None Seen [facility] Urine beta globulin measurem ent by electrophoresis (mass/volume)Ordered By: Dalia Villasenor on 12-29-2021 Beta globulin Elph (U) [Mass/Vol] 25.8 % . [facility] Urine colorOrdered By: Parmjit Villasenor on 12-29-2021 Color (U) Yellow Yellow [facility] Urine glucose measurement by automated test strip (mass/volume)Ordered By: Dalia Villasenor on 12-29-2021 Glucose Auto test strip (U) [Mass/Vol] Normal mg/dL Normal [facility] Urine hemoglobin detection b y automated test stripOrdered By: Dalia Villasenor on 12-29-2021 Hemoglobin Auto test strip Ql (U) Negative Negative [facility] Urine leukocyte esterase det ection by automated test stripOrdered By: Dalia Villasenor on 12-29-2021 Leukocyte esterase Auto test strip Ql (U) Negative Negative [facility] Urine nitrite detection by a utomated test stripOrdered By: Dalia Villasenor on 12-29-2021 Nitrite Auto test strip Ql (U) Negative Negative [facility] Urobilinogen Auto test strip (U) [Mass/Vol]Ordered By: Dalia Villasenor on 12-29-2021 Urobilinogen (U) [Mass/Vol] Normal mg/dL Normal [facility] aPTT.lupus sensitive (LA scr een)Ordered By: Dalia Villasenor on 12-29-2021 aPTT.lupus sensitive Coag (PPP) [Time] 31.9 sec 0.0-51.9 [facility] aPTT.lupus sensitive/aPTT.marcial pus sensitive W excess phospholipid (screen to confirm raOrdered By: Dalia Villasenor on 12-29-2021 aPTT.lupus sensitive/aPTT.lupus sensitive W excess phospholipid Coag (PPP) [Ratio] 1.17 Ratio 0.00-1.34 [facility] pH Auto test strip (U)Ordere d By: Dalia Villasenor on 12-29-2021 pH (U) 1.020 [pH] 1.001-1.030 [facility] pH (U) 6.5 [pH] 5.0-9.0 [facility] CREATININEon 12-26-2021 Creatinine [Mass/Vol] 1.20 mg/dL Critically high 0.55-1.02 [facility] Comment on above: Performed By: #### C HUMBERTO #### [facility] [address] [address] [address] Barrington Gomez EGFR-AF GUINEAN 55 mL/min/1.73m2 Critically low >=60 [facility] Comment on above: Performed By: #### C HUMBERTO #### [facility] [address] [address] [address] Barrington Gomez EGFR-NON AF GUINEAN 45 mL/min/1.73m2 Critically low >=60 [facility] Comment on above: Performed By: #### C HUMBERTO #### [facility] [address] [address] [address] ABD/PELV W CONon [...] DEREK COLLINS Date: 2021-12-26 15:19 Normal [facility] CULTURE URINEon 11-28-2021 CULTURE URINE Culture Observations : No growth Normal [facility] Comment on above: Performed By: #### U AMIC #### [facility] [address] [place] [address] Dr. Barrington Gomez UA RANDOM W/MICROSCOPICon BACTERIA TRACE Abnormal NONE SEEN [facility] Comment on above: Performed By: #### U AMIC #### [facility] [address] [place] [address] Dr. Barrington Gomez Bilirubin Ql (U) Negative Normal NEGATIVE [facility] Comment on above: Performed By: #### U AMIC #### [facility] [address] [place] [address] Dr. Barrington Gomez CAST SEEN Abnormal NONE SEEN [facility] Comment on above: Performed By: #### U AMIC #### [facility] [address] [place] [address] Dr. Barrington Gomez Clarity (U) CLEAR Normal CLEAR [facility] Comment on above: Performed By: #### U AMIC #### [facility] [address] [place] [address] Dr. Barrington Gomez Color (U) YELLOW Normal YELLOW [facility] Comment on above: Performed By: #### U AMIC #### [facility] [address] [place] [address] Dr. Barrington Gomez Crystals LM Nom (Urine sed) NONE SEEN Normal NONE SEEN [facility] Comment on above: Performed By: #### U AMIC #### [facility] [address] [address] [address] Barrington Gomez Epithelial cells LM Ql (Urine sed) RARE Normal NONE SEEN /RARE [facility] Comment on above: Performed By: #### U AMIC #### [facility] [address] [address] [address] Barrington Gomez Glucose Ql (U) Negative Normal NEGATIVE [facility] Comment on above: Performed By: #### U AMIC #### [facility] [address] [address] [address] Barrington Gomez Hemoglobin Ql (U) Negative Normal NEGATIVE [facility] Comment on above: Performed By: #### U AMIC #### [facility] [address] [place] [address] Dr. Barrington Gomez Ketones Ql (U) Negative Normal NEGATIVE [facility] Comment on above: Performed By: #### U AMIC #### [facility] [address] [address] [address] Barrington Gomez LEUKOCYTES Negative Normal NEGATIVE [facility] Comment on above: Performed By: #### U AMIC #### [facility] [address] [address] [address] Barrington Gomez MUCOUS SMALL Abnormal NONE SEEN [facility] Comment on above: Performed By: #### U AMIC #### [facility] [address] [address] [address] Barrington Gomez Nitrite Ql (U) Negative Normal NEGATIVE [facility] Comment on above: Performed By: #### U AMIC #### [facility] [address] [address] [address] Barrington Gomez pH (U) 5.5 [pH] Normal 5-9 [facility] Comment on above: Performed By: #### U AMIC #### [facility] [address] [address] [address] Barrington Gomez RBC NONE SEEN Abnormal 0-2 [facility] Comment on above: Performed By: #### U AMIC #### [facility] [address] [address] [address] Barrington Gomez SPEC GRAVITY >=1.030 Abnormal 1.005-<=1.0 25 [facility] Comment on above: Performed By: #### U AMIC #### [facility] [address] [address] [address] Barrington Gomez UA PROTEIN Negative Normal NEGATIVE/ TRACE [facility] Comment on above: Performed By: #### U AMIC #### [facility] [address] [address] [address] Barrington Gomez Urobilinogen Qn (U) 0.2 {Antionette'U}/dL Normal 0.2 - 1. 0 [facility] Comment on above: Performed By: #### U AMIC #### [facility] [address] [address] [address] Barrington Gomez WBC 0-2 Abnormal NONE SEEN [facility] Comment on above: Performed By: #### U AMIC #### [facility] [address] [address] [address] Barrington Gomez US KIDNEYS BLADDERon 022 [...] FELISHA BARROW Date: 2021-11-21 15:46 Normal [facility] UA DIP, URINE (POC)on 2021 BILIRUBIN UA (POCT) Negative Negative [facility] CLARITY UA (POCT) Clear [facility] COLOR UA (POCT) Yellow [facility] GLUCOSE UA (POCT) Negative Negative mg/dL [facility] HEMOGLOBIN/BLOOD UA (POCT) Negative Negative [facility] KETONE UA (POCT) Negative Negative mg/dL [facility] LEUKOCYTES UA (POCT) Negative Negative [facility] NITRITE UA (POCT) Negative Negative [facility] PH UA (POCT) 5.0 4.5 - 8.0 [facility] Protein Ql (U) Negative Negative mg/dL [facility] SPECIFIC GRAVITY UA (POCT) 1.020 1.005 - 1.030 [facility] UROBILINOGEN UA (POCT) 0.2 E.U./dL Kelly l E.U./dL [facility] CULTURE URINEon 11-14-2021 CULTURE URINE Culture Observations : GREATER THAN TWO ORGANISMS PRESENT. PLEASE RESUBMIT CLEAN CATCH MID-STREAM URINE IF CLINICALLY INDICATED. Normal [facility] Comment on above: Performed By: #### U AMIC #### [facility] [address] [place] [address] Dr. Barrington Gomez UA RANDOM W/MICROSCOPICon BACTERIA NONE SEEN Normal NONE SEEN [facility] Comment on above: Performed By: #### U AMIC #### [facility] [address] [place] [address] Dr. Barrington Gomez Bilirubin Ql (U) Negative Normal NEGATIVE [facility] Comment on above: Performed By: #### U AMIC #### [facility] [address] [place] [address] Dr. Barrington Gomez CAST NONE SEEN Normal NONE SEEN [facility] Comment on above: Performed By: #### U AMIC #### [facility] [address] [address] [address] Barrington Gomez Clarity (U) SL CLOUDY Abnormal CLEAR [facility] Comment on above: Performed By: #### U AMIC #### [facility] [address] [address] [address] Barrington Gomez Color (U) YELLOW Normal YELLOW [facility] Comment on above: Performed By: #### U AMIC #### [facility] [address] [place] [address] Dr. Barrington Gomez Crystals LM Nom (Urine sed) NONE SEEN Normal NONE SEEN [facility] Comment on above: Performed By: #### U AMIC #### [facility] [address] [address] [address] Barrington Gomez Epithelial cells LM Ql (Urine sed) RARE Normal NONE SEEN /RARE [facility] Comment on above: Performed By: #### U AMIC #### [facility] [address] [address] [address] Barrington Gomez Glucose Ql (U) Negative Normal NEGATIVE [facility] Comment on above: Performed By: #### U AMIC #### [facility] [address] [address] [address] Barrington Gomez Hemoglobin Ql (U) Negative Normal NEGATIVE [facility] Comment on above: Performed By: #### U AMIC #### [facility] [address] [address] [address] Barrington Gomez Ketones Ql (U) Negative Normal NEGATIVE [facility] Comment on above: Performed By: #### U AMIC #### [facility] [address] [address] [address] Barrington Gomez LEUKOCYTES Negative Normal NEGATIVE [facility] Comment on above: Performed By: #### U AMIC #### [facility] [address] [address] [address] Barrington Gomez MUCOUS TRACE Abnormal NONE SEEN [facility] Comment on above: Performed By: #### U AMIC #### [facility] [address] [place] [address] Dr. Barrington Gomez Nitrite Ql (U) Negative Normal NEGATIVE [facility] Comment on above: Performed By: #### U AMIC #### [facility] [address] [address] [address] Barrington Gomez pH (U) 5.5 [pH] Normal 5-9 [facility] Comment on above: Performed By: #### U AMIC #### [facility] [address] [place] [address] Dr. Barrington Gomez RBC 0-2 Normal 0-2 [facility] Comment on above: Performed By: #### U AMIC #### [facility] [address] [address] [address] Barrington Gomez SPEC GRAVITY 1.025 Normal 1.005-<=1.0 [facility] Comment on above: Performed By: #### U AMIC #### [facility] [address] [place] [address] Dr. Barrington Gomez UA PROTEIN Negative Normal NEGATIVE/ TRACE [facility] Comment on above: Performed By: #### U AMIC #### [facility] [address] [place] [address] Dr. Barrington Gomez Urobilinogen Qn (U) 0.2 {Antionette'U}/dL Normal 0.2 - 1. 0 [facility] Comment on above: Performed By: #### U AMIC #### [facility] [address] [place] [address] Dr. Barrington Gomez WBC NONE SEEN Normal NONE SEEN [facility] Comment on above: Performed By: #### U AMIC #### [facility] [address] [place] [address] Dr. Barrington Gomez CREATININEon 11-04-2021 Creatinine [Mass/Vol] 1.06 mg/dL Critically high 0.55-1.02 [facility] Comment on above: Performed By: #### G ENTR, CREA #### [facility] [address] [place] [address] Dr. Barrington Gomez EGFR-AF GUINEAN >60 Normal >=60 [facility] Comment on above: Performed By: #### G ENTR, CREA #### [facility] [address] [place] [address] Dr. Barrington Gomez EGFR-NON AF GUINEAN 52 mL/min/1.73m2 Critically low >=60 [facility] Comment on above: Performed By: #### G ENTR, CREA #### [facility] [address] [place] [address] Dr. Barrington Gomez GENTAMICIN RANDOMon 11-05-19 GENTAMICIN 5.2 ug/mL Normal [facility] Comment on above: Performed By: #### G ENTR, CREA #### [facility] [address] [place] [address] Dr. Barrington Gomez CULTURE URINEon 10-22-2021 CULTURE [...] Trimethoprim/Sulfamet hoxazole >=320 R F Normal [facility] Comment on above: Performed By: #### U [facility] #### [facility] [address] [place] [address] Dr. Barrington Gomez MRI FOOT LT WO [...] ligament seen on the edge of the [id number] for this study. There is no cystic [...] MADISYN CAAL Date: 2021-10-22 08:49 Normal [facility] UA RANDOM W/MICROSCOPICon BACTERIA SMALL Abnormal NONE SEEN [facility] Comment on above: Performed By: #### U AMIC #### [facility] [address] [address] [address] Barrington Gomez Bilirubin Ql (U) Negative Normal NEGATIVE [facility] Comment on above: Performed By: #### U AMIC #### [facility] [address] [address] [address] Barrington Gomez CAST SEEN Abnormal NONE SEEN [facility] Comment on above: Performed By: #### U AMIC #### [facility] [address] [address] [address] Barrington Gomez Clarity (U) CLEAR Normal CLEAR [facility] Comment on above: Performed By: #### U AMIC #### [facility] [address] [address] [address] Barrington Gomez Color (U) DK. ORANGE Abnormal YELLOW [facility] Comment on above: Performed By: #### U AMIC #### [facility] [address] [address] [address] Barrington Gomez Crystals LM Nom (Urine sed) NONE SEEN Normal NONE SEEN [facility] Comment on above: Performed By: #### U AMIC #### [facility] [address] [address] [address] Barrington Gomez Epithelial cells LM Ql (Urine sed) FEW Abnormal NONE SEEN /RARE [facility] Comment on above: Performed By: #### U AMIC #### [facility] [address] [address] [address] Barrington Gomez Glucose Ql (U) Negative Normal NEGATIVE [facility] Comment on above: Performed By: #### U AMIC #### [facility] [address] [address] [address] Barrington Gomez Hemoglobin Ql (U) Negative Normal NEGATIVE [facility] Comment on above: Performed By: #### U AMIC #### [facility] [address] [address] [address] Barrington Gomez HYALINE CAST FEW Normal [facility] Comment on above: Performed By: #### U AMIC #### [facility] [address] [address] [address] Barrington Gomez Ketones Ql (U) TRACE Abnormal NEGATIVE [facility] Comment on above: Performed By: #### U AMIC #### [facility] [address] [address] [address] Barrington Gomez LEUKOCYTES TRACE Abnormal NEGATIVE [facility] Comment on above: Performed By: #### U AMIC #### [facility] [address] [address] [address] Barrington Gomez MUCOUS NONE SEEN Normal NONE SEEN [facility] Comment on above: Performed By: #### U AMIC #### [facility] [address] [address] [address] Barrington Gomez Nitrite Ql (U) Negative Normal NEGATIVE [facility] Comment on above: Performed By: #### U AMIC #### [facility] [address] [address] [address] Barrington Gomez pH (U) 5.0 [pH] Normal 5-9 [facility] Comment on above: Performed By: #### U AMIC #### [facility] [address] [address] [address] Barrington Gomez RBC 0-2 Normal 0-2 [facility] Comment on above: Performed By: #### U AMIC #### [facility] [address] [address] [address] Barrington Gomez SPEC GRAVITY >=1.030 Abnormal 1.005-<=1.0 25 [facility] Comment on above: Performed By: #### U AMIC #### [facility] [address] [place] [address] Dr. Barrington Gomez UA PROTEIN Negative Normal NEGATIVE/ TRACE [facility] Comment on above: Performed By: #### U AMIC #### [facility] [address] [address] [address] Barrington Gomez Urobilinogen Qn (U) 0.2 {Antiontete'U}/dL Normal 0.2 - 1. 0 [facility] Comment on above: Performed By: #### U AMIC #### [facility] [address] [place] [address] Dr. Barrington Gomez WBC 5-10 Abnormal NONE SEEN [facility] Comment on above: Performed By: #### U AMIC #### [facility] [address] [place] [address] Dr. Barrington Gomez C-Reactive Proteinon 022 CRP IV <0.3 Normal [facility] Comment on above: Performed By: #### E SR, CRP, CBC #### [facility] [address] [place], [place] [id number] Complete Blood Counton 09-22 Erythrocyte distribution width (RBC) [Ratio] 17.2 % High 11.0-15.0 [facility] Special[facility] Comment on above: Performed By: #### E SR, CRP, CBC #### [facility] [address] [place], [place] [id number] Hematocrit (Bld) [Volume fraction] 41.5 % Normal 35.0-47.0 [facility] Specialist Comment on above: Performed By: #### E SR, CRP, CBC #### [facility] [address] [place], [place] [id number] Hemoglobin (Bld) [Mass/Vol] 12.5 g/dL Normal 11.6-15.5 [facility] Special[facility] Comment on above: Performed By: #### E SR, CRP, CBC #### [facility] [address] [place], [place] [id number] MCH (RBC) [Entitic mass] 24.7 pg Low 27.0-33.0 [facility] Specialist Comment on above: Performed By: #### E SR, CRP, CBC #### [facility] [address] [place], [place] [id number] MCHC (RBC) [Mass/Vol] 30.1 g/dL Low 32.0-36.[address] [facility] Specialist Comment on above: Performed By: #### E SR, CRP, CBC #### [facility] [address], [place] [id number] MCV (RBC) [Entitic vol] 82 fL Normal 80-100 [facility] Specialist Comment on above: Performed By: #### E SR, CRP, CBC #### [facility] [address] [place], [place] [id number] Platelet mean volume (Bld) [Entitic vol] 10.40 fL Normal 7.50-12.50 [facility] Comment on above: Performed By: #### E SR, CRP, CBC #### [facility] [address], [place] [id number] Platelets (Bld) [#/Vol] 317 10*3/uL Normal 140-400 [facility] Specialist Comment on above: Performed By: #### E SR, CRP, CBC #### [facility] [address] [place], [place] [id number] RBC (Bld) [#/Vol] 5.07 10*6/uL Normal 3.90-5.20 [facility] Comment on above: Performed By: #### E SR, CRP, CBC #### [facility] [address], [place] [id number] RDW-SD 50.8 fL High 37.0-50.0 [facility] Comment on above: Performed By: #### E SR, CRP, CBC #### [facility] [address], [place] [id number] WBC (Bld) [#/Vol] 9.2 10*3/uL Normal 3.8-11.0 [facility] Comment on above: Performed By: #### E SR, CRP, CBC #### [facility] [address], [place] [id number] RBC Sedimentation Rateon ESR (Bld) [Velocity] 10.00 mm/h Normal 0.00-30.00 [facility] Specialist Comment on above: Performed By: #### E SR, CRP, CBC #### [facility] [address], [place] [id number] Vital Signs Date Time Vital Sign Value Performing Clinician Facility 10-10-2022 15:14-0400 Body temperature 97.88 [degF] [facility] 10-10-2022 15:14-0400 Diastolic blood pressure 92 mm[Hg] [facility] 10-10-2022 15:14-0400 Heart rate 89 /min [facility] 10-10-2022 15:14-0400 Respiratory rate 16 /min [facility] 10-10-2022 15:14-0400 SaO2% (BldA) [Mass fraction] 99 % [facility] 10-10-2022 15:14-0400 Systolic blood pressure 145 mm[Hg] Rocael [facility] 10-07-2022 10:04-0400 Body height 162.6 cm Jose Bryant MD Work Phone: [facility] 10-07-2022 10:04-0400 Body temperature 97.39 [degF] Jose Bryant MD Work Phone: [facility] 10-07-2022 10:04-0400 Body weight 108.41 kg Jose Bryant MD Work Phone: [facility] 10-07-2022 10:04-0400 Diastolic blood pressure 85 mm[Hg] Jose Bryant MD Work Phone: [facility] 10-07-2022 10:04-0400 Heart rate 83 /min Jose Bryant MD Work Phone: [facility] 10-07-2022 10:04-0400 Respiratory rate 16 /min Jose Bryant MD Work Phone: [facility] 10-07-2022 10:04-0400 SaO2% (BldA) [Mass fraction] 98 % Jose Bryant MD Work Phone: [facility] 10-07-2022 10:04-0400 Systolic blood pressure 148 mm[Hg] Jose Bryant MD Work Phone: [facility] 06-10-2022 11:00-0500 Body height 162.6 cm Jose Bryant MD Work Phone: [facility] 06-10-2022 11:00-0500 Body temperature 97.2 [degF] Jose Bryant MD Work Phone: [facility] 06-10-2022 11:00-0500 Body weight 105.87 kg Jose Bryant MD Work Phone: [facility] 06-10-2022 11:00-0500 Diastolic blood pressure 87 mm[Hg] Jose Bryant MD Work Phone: [facility] 06-10-2022 11:00-0500 Heart rate 73 /min Jose Bryant MD Work Phone: [facility] 06-10-2022 11:00-0500 Respiratory rate 16 /min Jose Bryant MD Work Phone: [facility] 06-10-2022 11:00-0500 SaO2% (BldA) [Mass fraction] 98 % Jose Bryant MD Work Phone: [facility] 06-10-2022 11:00-0500 Systolic blood pressure 152 mm[Hg] Jose Bryant MD Work Phone: [facility] 02-17-2022 11:36-0400 Body temperature 98.4 [degF] Quique Mojica MD [facility] Phone: [facility] [employer] 02-17-2022 11:36-0400 Diastolic blood pressure 56 mm[Hg] Quique Mojica MD Work Phone[facility] [employer] 02-17-2022 11:36-0400 Heart rate 96 /min Quique Mojica MD Work Phone[facility] [employer] 02-17-2022 11:36-0400 Respiratory rate 16 /min Quique Mojica MD Work Phone[facility] [employer] 02-17-2022 11:36-0400 SaO2% (BldA) [Mass fraction] 93 % Quique Mojica MD Work Phone: [facility] [employer] 02-17-2022 11:36-0400 Systolic blood pressure 117 mm[Hg] Quique Mojica MD Work Phone: [facility] [employer] 02-16-2022 10:32-0400 Body height 162.6 cm Quique Mojica MD Work Phone: [facility] [email or web address] 02-16-2022 10:32-0400 Body mass index (BMI) [Ratio] 40.34 kg/m2 Quique Mojica MD Work Phone[facility] [employer] 02-16-2022 10:32-0400 Body weight 106.59 kg Quique Mojica MD Work Phone: [facility] [employer] 01-26-2022 07:54-0400 Body height 162.6 cm Sta 1 [facility] [employer] 01-26-2022 07:54-0400 Body mass index (BMI) [Ratio] 40.34 kg/m2 Sta 1 [facility] [employer] 01-26-2022 07:54-0400 Body temperature 97.5 [degF] Sta 1 [facility] [employer] 01-26-2022 07:54-0400 Body weight 106.59 kg Sta 1 [facility] [employer] 01-26-2022 07:54-0400 Diastolic blood pressure 84 mm[Hg] Sta 1 [facility] [employer] 01-26-2022 07:54-0400 Heart rate 85 /min Sta 1 [facility] [employer] 01-26-2022 07:54-0400 Respiratory rate 16 /min [facility] [employer] 01-26-2022 07:54-0400 SaO2% (BldA) [Mass fraction] 98 % Sta [facility] [employer] 01-26-2022 07:54-0400 Systolic blood pressure 133 mm[Hg] Sta [facility] [employer] 11-20-2021 09:35-0400 Body temperature 97.3 [degF] Dallas Lombardo MD Work Phone: [facility] 11-20-2021 09:35-0400 Body weight 104.33 kg Dallas Lombardo MD Work Phone: [facility] 11-20-2021 09:35-0400 Diastolic blood pressure 78 mm[Hg] Dallas Lombardo MD Work Phone: [facility] 11-20-2021 09:35-0400 Heart rate 95 /min Dallas Lombardo MD Work Phone: [facility] 11-20-2021 09:35-0400 Systolic blood pressure 120 mm[Hg] Dallas Lombardo MD Work Phone: [facility] Encounters Encounter Date Encounter Type Care Provider Facility Start: 06-24-2023 End: 06-24-2023 ambulatory RICARDO HOOEPR Facility:[facility] Start: 06-21-2023 End: 06-22-2023 ambulatory DALIA Rudi VIGIL Not Available Start: 04-01-2023 ambulatory Jose reagan MD Work Phone: Hematology/Oncology Comment on above: Cat Scan Start: 03-31-2023 End: 03-31-2023 ambulatory RICARDO HOOPER Facility:[facility] Start: 02-22-2023 End: 02-22-2023 ambulatory Ricardo Hooper Facility:[facility] Start: 02-22-2023 End: 02-22-2023 ambulatory MD Ricardo Hooper Work Phone: [facility] Work Phone: Start: 02-22-2023 End: 02-22-2023 Patient encounter procedure MD Ricardo Hooper Work Phone: [facility] Work Phone: Start: 01-11-2023 End: 01-12-2023 Evaluation and management of inpatient [facility] Start: 12-21-2022 End: 12-26-2022 ambulatory [facility] Start: 10-10-2022 End: 10-10-2022 Emergency department patient visit Rocael Wayne Facility:[facility] Start: 10-10-2022 End: 10-10-2022 Emergency department patient visit Rocael Wayne [facility] Start: 10-08-2022 End: 10-08-2022 ambulatory LEOBARDO Doty Facility: Start: 10-07-2022 End: 10-07-2022 ambulatory RICARDO HOOPER Facility:[facility] Start: 10-07-2022 End: 10-07-2022 Office outpatient visit 15 minutes Jose Bryant MD Work Phone: Hematology/Oncology Comment on above: Iron deficiency anem ia secondary to inadequate dietary iron intake (Primary Dx); Thrombocytopenia (HCC); Lung nodules Start: 08-29-2022 End: 08-30-2022 ambulatory VERNELL FARRELL Facility:[facility] Start: 08-05-2022 End: 08-06-[address] RICARDO HOOPER . Facility:[facility] Start: 07-28-2022 ambulatory VIN KIM . Facility:[facility] Start: 06-10-2022 End: 06-10-2022 Office outpatient visit 15 minutes Jose Bryant MD Work Phone: Hematology/Oncology Comment on above: Iron deficiency anem ia secondary to inadequate dietary iron intake (Primary Dx); Pulmonary nodules; Mediastinal lymphadenopathy; Idiopathic cytopenia of undetermined significance (ICUS) Start: 06-01-2022 ambulatory VERNELL FARRELL Facility: [facility] Start: 04-28-2022 End: 04-28-[address] SHU CORTEZ . Facility:[facility] Start: 04-10-2022 Telephone encounter Georgia Field RN Work Phone: Hematology/Oncology Comment on above: Patient Question (ap pointment) Start: 04-09-[address] RICARDO HOOPER . Facili ty:[facility] Start: 02-18-2022 Telephone encounter Martha Murrell Hematology/Oncology Comment on above: Appointment; Results Start: 02-16-2022 End: 02-17-2022 ambulatory [facility] Start: 02-16-2022 End: 02-17-2022 Subsequent hospital visit by physician Quique Mojica MD Work Phone: [facility] Comment on above: Lumbar stenosis with neurogenic claudication (Primary Dx) Start: 01-26-2022 End: 01-31-2022 ambulatory [facility] Start: 01-26-2022 End: 01-30-2022 Subsequent hospital visit by physician Brandon Carter 1 [facility] Start: 12-29-2021 End: 12-29-2021 Patient encounter procedure MD Ricardo Hooper Work Phone: [facility] [address] Start: 12-26-2021 End: 12-27-[address] RICARDO HOOPER . Facility:[facility] Start: 11-28-2021 End: 11-29-[address] RICARDO HOOPER . Facility:[facility] Start: 11-21-2021 End: 11-22-[address] RICARDO HOOPER . Facility:[facility] Start: 11-20-2021 End: 11-20-2021 Patient encounter procedure Dallas Lombardo MD Work Phone: Urology Comment on above: [...] stick/tabl et rgnt auto w/o microscopy Dallas Lombardo MD Work Phone: Start: 01-14-2021 Adult depression scr eening assessment Dallas Lombardo MD Work Phone: Start: 12-19-2019 Lipid 1996 panel - S brianna or Plasma Jose Bryant MD Work Phone: Appendectomy [facility]aelvicenta [facility] Carpal tunnel syndro me (disorder) Rocael [...] DTaP/Tdap/Td vaccine (2 - Td or Tdap) [facility] Start: 07-29-2030 Urine microalbumin profile [facility] Start: 03-31-2026 Diabetes Screening Diabetes Screenin g [facility] Start: 10-07-2025 DIABETES SCREEN DIABETES SCREEN [facility] Start: 06-10-2025 DIABETES SCREEN DIABETES SCREEN [facility] Start: 04-09-2025 DIABETES SCREEN DIABETES SCREEN [facility] Start: 12-18-2024 Lipid 1996 panel - Serum or Plasma Lipid Screening [facility] Start: 12-18-2024 LIPID SCREEN LIPID SCREEN [facility] Start: 07-10-2024 DIABETES SCREEN DIABETES SCREEN [facility] Start: 07-05-2023 End: 04-04-2024 CBC W Auto Differential panel - Blood CBC + DIFF Lab Routine Thrombocytopenia (HCC) Iron deficiency anemia secondary to inadequate dietary iron intake Expected: 07/05/2023 (Approximate), Expires: 04/04/2024 [facility] Work Phone: Comment on above: Expected: 07/05/2023 (Approximate), Expires: 04/04/2024 Start: 07-05-2023 End: 04-04-2024 Cobalamin (Vitamin B12) [Mass/volume] in Serum or Plasma VITAMIN B12 BLOOD Lab Routine Thrombocytopenia (HCC) Iron deficiency anemia secondary to inadequate dietary iron intake Expected: 07/05/2023 (Approximate), Expires: 04/04/2024 [facility] Work Phone: Comment on above: Expected: 07/05/2023 (Approximate), Expires: 04/04/2024 Start: 07-05-2023 End: 04-04-2024 Comprehensive metabolic 2000 panel - Serum or Plasma COMP METABOLIC PANEL Lab Routine Thrombocytopenia (HCC) Iron deficiency anemia secondary to inadequate dietary iron intake Expected: 07/05/2023 (Approximate), Expires: 04/04/2024 [facility] Work Phone: Comment on above: Expected: 07/05/2023 (Approximate), Expires: 04/04/2024 Start: 07-05-2023 End: 04-04-2024 Ferritin [Mass/volume] in Serum or Plasma FERRITIN BLD Lab Routine Thrombocytopenia (HCC) Iron deficiency anemia secondary to inadequate dietary iron intake Expected: 07/05/2023 (Approximate), Expires: 04/04/2024 [facility] Work Phone: Comment on above: Expected: 07/05/2023 (Approximate), Expires: 04/04/2024 Start: 07-05-2023 End: 04-04-2024 Folate [Mass/volume] in Serum or Plasma FOLATE SERUM Lab Routine Thrombocytopenia (HCC) Iron deficiency anemia secondary to inadequate dietary iron intake Expected: 07/05/2023 (Approximate), Expires: 04/04/2024 [facility] Work Phone: Comment on above: Expected: 07/05/2023 (Approximate), Expires: 04/04/2024 Start: 07-05-2023 End: 04-04-2024 Iron and Iron binding capacity panel - Serum or Plasma IRON + TIBC Lab Routine Thrombocytopenia (HCC) Iron deficiency anemia secondary to inadequate dietary iron intake Expected: 07/05/2023 (Approximate), Expires: 04/04/2024 [facility] Work Phone: Comment on above: Expected: 07/05/2023 (Approximate), Expires: 04/04/2024 Start: 04-09-2023 End: 10-08-2023 CBC W Auto Differential panel - Blood CBC + DIFF Lab Routine Thrombocytopenia (HCC) Lung nodules Iron deficiency anemia secondary to inadequate dietary iron intake Expected: 04/09/2023 (Approximate), Expires: 10/08/2023 [facility] Work Phone: Comment on above: Expected: 04/09/2023 (Approximate), Expires: 10/08/2023 Start: 04-09-2023 End: 10-08-2023 Cobalamin (Vitamin B12) [Mass/volume] in Serum or Plasma VITAMIN B12 BLOOD Lab Routine Thrombocytopenia (HCC) Lung nodules Iron deficiency anemia secondary to inadequate dietary iron intake Expected: 04/09/2023 (Approximate), Expires: 10/08/2023 [facility] Work Phone: Comment on above: Expected: 04/09/2023 (Approximate), Expires: 10/08/2023 Start: 04-09-2023 End: 10-08-2023 Comprehensive metabolic 2000 panel - Serum or Plasma COMP METABOLIC PANEL Lab Routine Thrombocytopenia (HCC) Lung nodules Iron deficiency anemia secondary to inadequate dietary iron intake Expected: 04/09/2023 (Approximate), Expires: 10/08/2023 [facility] Work Phone: Comment on above: Expected: 04/09/2023 (Approximate), Expires: 10/08/2023 Start: 04-09-2023 End: 11-06-2023 CT CHEST W IVCON CT CHEST W IVCON Radiology Routine Lung nodules Expected: 04/09/2023 (Approximate), Expires: 11/06/2023 [facility] Work Phone: Comment on above: Expected: 04/09/2023 (Approximate), Expires: 11/06/2023 Start: 04-09-2023 End: 10-08-2023 Ferritin [Mass/volume] in Serum or Plasma FERRITIN BLD Lab Routine Thrombocytopenia (HCC) Lung nodules Iron deficiency anemia secondary to inadequate dietary iron intake Expected: 04/09/2023 (Approximate), Expires: 10/08/2023 [facility] Work Phone: Comment on above: Expected: 04/09/2023 (Approximate), Expires: 10/08/2023 Start: 04-09-2023 End: 10-08-2023 Folate [Mass/volume] in Serum or Plasma FOLATE SERUM Lab Routine Thrombocytopenia (HCC) Lung nodules Iron deficiency anemia secondary to inadequate dietary iron intake Expected: 04/09/2023 (Approximate), Expires: 10/08/2023 [facility] Work Phone: Comment on above: Expected: 04/09/2023 (Approximate), Expires: 10/08/2023 Start: 04-09-2023 End: 10-08-2023 Iron and Iron binding capacity panel - Serum or Plasma IRON + TIBC Lab Routine Thrombocytopenia (HCC) Lung nodules Iron deficiency anemia secondary to inadequate dietary iron intake Expected: 04/09/2023 (Approximate), Expires: 10/08/2023 [facility] Work Phone: Comment on above: Expected: 04/09/2023 (Approximate), Expires: 10/08/2023 Start: 03-15-2023 Pneumococcal 65+ yea rs Vaccine (2 - PPSV23 or PCV20) Pneumococcal 65+ years Vaccine (2 - PPSV23 or PCV20) [facility] Start: 03-15-2023 Pneumococcal Vaccine : 65+ (3 - PPSV23 or PCV20) Pneumococcal Vaccine: 65+ (3 - PPSV23 or PCV20) [facility] Start: 03-15-2023 PNEUMOCOCCAL: 65+ (#3) PNEUMOCOCCAL: 65+ (#3) [facility] Start: 03-15-2023 PNEUMOCOCCAL: 65+ (2 - PPSV23 or PCV20) PNEUMOCOCCAL: 65+ (2 - PPSV23 or PCV20) [facility] Start: 01-29-2023 Covid-19 Vaccine ( season) Covid-19 Vaccine ( season) [facility] Start: 01-29-2023 Influenza vaccination Influenza Vacc ine (#1) [facility] Start: 05-31-2022 ADVANCE DIRECTIVE DISCUSSION ADVANCE DIRECTIVE DISCUSSION [facility] Start: 05-31-2022 DEPRESSION ASSESSMENT DEPRESSION ASS ESSMENT [facility] Start: 02-16-2022 End: 02-16-2022 Admission to same day surgery center 02/16/2022 Surgery IP Unit Quique Mojica MD [address] [place] [address] L3-4 LUMBAR LAMINECTOMY POSTERIOR ABOVE PREVIOUS L 4-5 FUSION [facility] Comment on above: L3-4 LUMBAR LAMINECT JOEL POSTERIOR ABOVE PREVIOUS L 4-5 FUSION Start: 02-16-2022 End: 02-16-2022 Laminectomy w/o ffd > 2 vert seg lumbar LUMBAR LAMINECTOMY POSTERIOR Spinal stenosis of lumbar region, unspecified whether neurogenic claudication present 02/16/2022 12:15 PM EDT [facility] Start: 02-16-2022 Subsequent hospital visit by physician 02/16/2022 Hospital Encounter IP Unit Quique Mojica MD [address] [place] [address] [facility] Start: 02-12-2022 Annual Wellness Visi t (AWV) Annual Wellness Visit (AWV) [facility] Start: 01-29-2022 Influenza vaccination [facility] Start: 01-21-2022 Screening mammograph y of bilateral breasts MM screening mammo BI w/CAD [facility] Start: 01-21-2022 End: 01-21-2022 Patient encounter procedure Departed Clinical [facility] Start: 01-14-2022 Adult depression screening assessment DEPRESSION SCREENING [facility] Start: 12-09-2021 COVID-19 VACCINE (5 - Booster for Pfizer series) COVID-19 VACCINE (5 - Booster for Pfizer series) [facility] Start: 2021 ADVANCE DIRECTIVE DISCUSSION ADVANCE DIRECTIVE DISCUSSION [facility] Start: 2021 BONE DENSITY BONE DENSITY [facility] Start: 2021 Bone Density Screening Bone Density Screening [facility] Start: 05-31-2021 DEPRESSION ASSESSMENT DEPRESSION ASS ESSMENT [facility] Start: 2016 RSV Vaccine (1 - 1-d ose 60+ series) RSV Vaccine (1 - 1-dose 60+ series) [facility] Start: 2006 Screening for malign ant neoplasm of breast Breast cancer screen [employer] Start: 2001 COLOGUARD (FIT-DNA) COLOGUARD (FIT-D NA) [facility] Start: 2001 Colonoscopy COLONOSCOPY [facility] Start: 2001 COLORECTAL CANCER SCREENING COLORECTAL CANCER SCREENING [facility] Start: [address] COLONOGRAPHY [facility] Start: 2001 FECAL OCCULT BLOOD FECAL OCCULT BLOO D [facility] Start: 2001 Screening for malign ant neoplasm of colon [employer] Start: 2001 SIGMOIDOSCOPY SIGMOIDOSCOPY [facility] Start: 1996 Lipid panel Lipids [facility] [employer] Start: 1996 Mammography [facility] Start: 09-19-1991 Diabetes screen Diabetes screen [employer] Start: 1974 Hepatitis C screening Hepatitis C sc reen [employer] Start: 1974 HIV SCREENING HIV SCREENING [facility] Start: 09-19-1971 HIV screening HIV screen [facility] Start: 1968 Depression Screen Depression Screen [employer] End: 02-19-2022 Basic metabolic 2000 panel - Serum or Plasma Basic Metabolic Panel Lab Routine Daily for 3 Days starting 02/17/2022 until 02/19/2022, 1 completed [employer] Phone: Comment on above: Daily for 3 Days sta rting 02/17/2022 until 02/19/2022, 1 completed End: 02-19-2022 CBC W Auto Differential panel - Blood CBC with Auto Differential Lab Routine Daily for 3 Days starting 02/17/2022 until 02/19/2022, 1 completed [employer] Phone: Comment on above: Daily for 3 Days sta rting 02/17/2022 until 02/19/2022, 1 completed End: 02-16-2022 Intermittent pulse oximetry Pulse Oximetry Spot Check Respiratory Care Routine One Time for 1 Occurrences starting 02/16/2022 until 02/16/2022 [employer] Phone: Comment on above: One Time for 1 Occur rences starting 02/16/2022 until 02/16/2022 Oxygen therapy [[facility] Data Set] Initiate Oxygen Therapy Protocol Respiratory Care Routine As Needed until discontinued starting 02/16/2022 [employer] Phone: Comment on above: As Needed until disc ontinued starting 02/16/2022 Spirometry panel Incentive mark metry Respiratory Care Routine Every 2hr while awake until discontinued starting 02/16/2022 [employer] Phone: Comment on above: Every 2hr while awak e until discontinued starting 02/16/2022 [facility] Immunizations Immunization Date Immunization Notes Care Provider Fa cili 04-26-2022 Seasonal, quadrivale nt, recombinant, injectable influenza vaccine, preservative free Jose Bryant MD Work Phone: [facility] 04-26-2022 influenza virus vacc ine, unspecified formulation Jose Bryant MD Work Phone: [facility] 03-28-2021 influenza, injectabl e, quadrivalent, preservative free Dallas Vasavada MD Work Phone: [facility] 11-26-2020 zoster vaccine recombinant Dallas Lombardo MD Work Phone: [facility] 09-10-2020 COVID-19 Lowell Osorio (Pfizer) MD Ricardo Hooper Work Phone: [facility] 08-19-2020 COVID-19 mRNALowell (Pfizer) MD Ricardo Hooper Work Phone: [facility] 07-29-2020 hepatitis A vaccine, adult dosage Dallas Lombardo MD Work Phone: [facility] 07-29-2020 tetanus toxoid, redu perri diphtheria toxoid, and acellular pertussis vaccine, adsorbed Dallas Lombardo MD Work Phone: [facility] 07-12-2020 typhoid capsular polysaccharide vaccine Dallas Lombardo MD Work Phone: [facility] 01-30-2020 influenza, injectabl e, quadrivalent, preservative free Dallas Lombardo MD Work Phone: [facility] 01-30-2020 zoster vaccine recombinant Dallas Lombardo MD Work Phone: [facility] 02-27-2019 influenza, injectabl e, quadrivalent, preservative free Dallas Lombardo MD Work Phone: [facility] 01-27-2019 influenza, injectabl e, quadrivalent, preservative free Dallas Lombardo MD Work Phone: [facility] 03-21-2018 influenza, injectabl e, quadrivalent, contains preservative Dallas Lombardo MD Work Phone: [facility] 03-21-2018 influenza, seasonal, injectable Dallas Lombardo MD Work Phone: [facility] 03-15-2018 influenza, injectabl e, quadrivalent, preservative free Dallas Lombardo MD Work Phone: [facility] 03-15-2018 pneumococcal polysaccharide vaccine, 23 valent Dallas Lombardo MD Work Phone: [facility] 02-28-2018 pneumococcal conjuga te vaccine, 13 valent Dallas Lombardo MD Work Phone: [facility] 01-29-2018 influenza virus vacc ine, unspecified formulation Dallas Lombardo MD Work Phone: [facility] 06-18-2017 influenza, high dose seasonal, preservative-free Dallas Lombardo MD Work Phone: [facility] 06-18-2017 pneumococcal polysaccharide vaccine, 23 valmaura Lombardo MD Work Phone: [facility] 04-20-2014 influenza, seasonal, injectable, preservative free Dallas Lombardo MD Work Phone: [facility] Payers Date Payer Category Payer Self-pay [id number] 2018 Medicare HUMANA MEDICARE HU[employer]NA MEDICARE PPO [id number] 2018-Present [phone] [address] [place] [address] PPO [id number] 2018 Medicare HUMANA MEDICARE HU[employer]NA MEDICARE PPO [id number] 2018-Present [phone] [address] [place] [address] [id number] 1959 Private Health Insurance [id number] 1959 Unknown [id number] 1956 Unknown [id number] 2.840.1.509992.3.579.2. 593 1956 Unknown [id number] 2.16.840.1.625027.3.579.2. 593 1956 Unknown [id number] 2.16.840.1.116816.3.579.2. 593 1956 Unknown [id number] 2.16.840.1.880175.3.579.2. 593 1956 Unknown [id number] 2.16.840.1.995123.3.579.2. 593 1956 Unknown [id number] 2.16.840.1.048727.3.579.2. 593 1956 Unknown [id number] 2..840.1.589615.3.579.2. 593 1956 Unknown [id number] 2..840.1.201857.3.579.2. 593 1956 Unknown [id number] 2.840.1.875666.3.579.2. 593 1956 Unknown [id number] 2..840.1.131755.3.579.2. 593 1956 Unknown [id number] 2.840.1.788980.3.579.2. 593 1956 Unknown [id number] 2.840.1.808066.3.579.2. 593 1956 Unknown [id number] 2.16.840.1.311740.3.579.2. 593 1956 Unknown [id number] 2.16.840.1.009185.3.579.2. 593 1956 Unknown [id number] 2.16.840.1.562738.3.579.2. 593 1956 Unknown [id number] 2.16.840.1.889899.3.579.2. 593 1956 Unknown [id number] 2.16.840.1.622787.3.579.2. 593 1956 Unknown [id number] 2.16.840.1.905061.3.579.2. 727 1956 Unknown [id number] 2.16.840.1.434242.3.579.2. 177 1956 Unknown [id number] 2.16.840.1.659173.3.579.2. 177 1956 Unknown [id number] 2.16.840.1.794225.3.579.2. 177 1956 Unknown [id number] 2.16.840.1.184559.3.579.2. 177 1956 Unknown [id number] 2.16.840.1.125710.3.579.2. 1259 1956 Unknown [id number] 2.16.840.1.810339.3.579.2. 1259 Medicaid Medicaid [id number] Medicare [facility] [id number] Unknown [id number] 2.16.840.1.888633.3.579.2. 531 Social History Date Type Detail Facility Start: 01-23-2015 End: 04-30-2015 Tobacco smoking status NHIS Never smoked tobacco [facility] Start: 01-23-2015 End: 04-30-2015 Tobacco use and exposure Smokeless tobacco non-user [facility] Start: 07-10-2021 End: 06-10-2022 Alcohol intake Current drinker of alcohol (finding) [facility] Start: 06-17-2015 History SDOH Alcohol Comment rare [facility] Start: 1955 Sex Assigned At Not on file C [facility] Start: 10-28-2021 End: 04-09-2022 Exposure to SARS-CoV-2 (event) Not sure [facility] Start: 1955 Sex Assigned At Female F [facility] Start: 01-26-2022 End: 02-17-2022 Alcohol intake Ex-drinker (finding) [employer] Phone: Start: 09-15-2021 History SDOH Alcohol Frequency 1 [employer] Phone: Start: 06-10-2022 End: 06-13-2022 Sex Assigned At Female [facility] Start: 06-10-2022 End: 06-13-2022 History of Social function [facility] Adult Depression Screening Assessment 0 [facility] Functional Status Date Assessment Result Facility 10-10-2022 Functional Status N/A [facility] Clinical Notes 11-05-2021 to 06-24-2023 Telephone Encounter - Jose Bryant MD - 04/04/2023 8:14 PM EST Note Date & Type Note Facility 06-24-2023 Note HNO ID: [id number] Author: DALLAS LOMBARDO MD Service: ? Author Type: Physician Type: Progress Notes Filed: 06/24/2023 12:13 Note Text: [facility] UROLOGY VISIT Follow Up [facility] PATIENT HISTORY AND PHYSICAL EXAM PATIENT INFO: Jessica Ferrera is a 67 year old female. = HISTORY: Last OV with Dr. Lombardo 11/20/2021 1. 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 Had UTI in November and March. Pt brought records of March urine culture, treated with outpatient IV antibiotics. Feels like she has a yeast infection today. Feels pressure in abdomen when she has a UTI. No allergy testing for antibiotics. QUESTIONNAIRE: Questionnaire: [place] Amb[facility] Visit Intake Questionnaire Question Answer Have you had any unintentional weight loss? No Do you have concerns about personal safety or safety in the home? No Have you had 2 falls in the last year or 1 fall with injury or currently using an ambulatory assistive device (Walker, Cane, Wheelchair, Crutches, etc.) No Are you having pain associated with this visit? Yes What is your Pain Level? 6 Pain Location Abdomen Pain Description Aching Pressure Pulsating Throbbing Pain Duration Amount of Time Duration Units Days Pain Frequency Intermittent Intervention/Comfort measure Pain Comments Questionnaire: [facility] Additional Demo Question Answer Is this visit related to an accident, other than Workers' Compensation? No Is this visit related to Workers' Compensation? No Do you need an crabber? No Questionnaire: Val Promis 10 Adult Short Form V1.0 Global Health Question Answer In the past 7 days In general, would you say your health is: Good In general, would you say your quality of life is: Very good In general, how would you rate your physical health? Good In general, how would you rate your mental health, including your mood and your ability to think? Excellent In general, how would you rate your satisfaction with your social activities and relationships? Very good In general, please rate how well you carry out your usual social activities and roles. (This includes activities at home, at work and in your community, and responsibilities as a parent, child, spouse, employee, friend, etc.) Excellent To what extent are you able to carry out your everyday physical activities such as walking, climbing stairs, carrying groceries, or moving a chair? Completely In the past 7 days How often have you been bothered by emotional problems such as feeling anxious, depressed or irritable? Rarely How would you rate your fatigue on average? None How would you rate your pain on average? 5 PROMIS Adult Short Form-Global Health Score (Physical) 50.8 PROMIS Adult Short Form-Global Health Score (Mental) 56 3 1 Questionnaire: Val Provider Understanding Current Health Urology Question Answer These questions will help my provider understand my health Agree Questionnaire: Val Document/Image Upload Question Answer Photo ID If there are images or documents you'd like to share with your provider during your visit, you may upload up to a total of five files. For body images use the pencil icon to label your image. When labeling the image, please use the following format: The name of the body part followed by the side. For example, Back of Right Forearm or Lower Left Leg. HISTORIES: PAST MEDICAL HISTORY Diagnosis Date Blood clotting disorder (HCC) Lupus Anticoagulant- last (2) were negative Endometriosis Fibromyalgia Frequent UTI Iron deficiency anemia secondary to inadequate dietary iron intake 04/10/2022 Raynaud disease Thrombocytopenia (HCC) PAST SURGICAL HISTORY Procedure Laterality Date ANKLE SURGERY HX Left x 3 APPENDECTOMY APPENDECTOMY HX ARTHRP KNE CONDYLEANDPLATU MEDIALANDLAT COMPARTMENTS Left and Right CARPAL TUNNEL bilateral CYSTO.PANENDO 06/05/2021 CYSTOURETHROSCOPY 06/20/15 Cystoscopy; Dr. Lombardo; [place] [facility] HX Left HYSTERECTOMY HX 1995 left overy and hysterectomy. ROTATOR CUFF REPAIR 2013,2014 Left x 2 SHOULDER SURGERY HX Right TONSILLECTOMY HX TONSILLECTOMY HX Social History Tobacco Use Smoking status: Never Smokeless tobacco: Never Vaping Use Vaping Use: Never used Substance Use Topics Alcohol use: Yes Comment: rare Drug use: No MEDICATIONS: Current Outpatient Medications Medication Sig fluticasone propionate (FLONASE NASAL) Use in the nose as (more content not included)... [facility] 06-24-2023 Note HNO ID: [id number] Author: ?, ?, ? Service: ? Author Type: ? Type: Progress Notes Filed: 06/24/2023 12:13 Note Text: PVR = 0 ml Via bladder scan. [facility] 04-04-2023 Miscellaneous Notes I hope she had a good trip to [place]. She can come back to see me in 3 months - just need her labs done 2-3 days before. documented in this encounter [facility] 03-31-2023 Note HNO ID: [id number] Author: Charleen Tao RT(R) Service: ? Author [...] RT Corine(R) March 31, 2023 9:39 AM [facility] 03-31-2023 Note HNO ID: [id number] Author: Kaci Hodge RN Service: ? Author [...] DATE: March 31, 2023 TIME: 8:53 AM [facility] 10-10-2022 Hospital Discharg e instructions Patient [...] few weeks. Home care treatment may include: Pflo-tyo-xskvqal pain relievers. A warm, moist cloth placed over the ear. Severe cases may require a procedure to insert tubes in the ears (tympanostomy tubes) to drain the fluid. Follow these instructions at home: Take duae-shc-bzlnjoi and prescription medicines only as told by [...] provider. Document Revised: 09/11/2021 Document Reviewed: 09/11/2021 [employer] Patient Education 2022 [employer]. Follow Up Care 10/10/2022 14:55:39 With:Ricardo Hooper Address: [address] [place] [phone] Business (1) When:10/13/2022 15:48:06 Comments:Follow-up with your primary care provider in 3 to 5 days. If symptoms worsen, do not improve, or new symptoms arise please report back to emergency department for further evaluation. [facility] 10-10-2022 Evaluation + Plan note Extrac mirtha from: Title:ED Note Author:Thony Soriano PA-C te:10/10/22 Left serous otitis media (H6 5.92: Unspecified nonsuppurative otitis media, left ear) Orders: cefdinir, 300 mg = 1 cap(s), Oral, q12hr, X 7 day(s), # 14 cap(s), Refills(s) 0 predniSONE, 60 mg = 3 tab(s), Oral, Daily, X 7 day(s), # 21 tab(s), Refills(s) 0 [facility]05-10-2023 NoteHNO ID: [id number] Author: Jose Bryant MD Service: ? Author Type: Physician Type: Progress Notes Filed: 10/07/2022 10:43 AM Note Text: NAME: Jessica Ferrera CLINIC NO.: [id number] DATE OF SERVICE: June 10, 2022 (Andra) [...] stable - can reassess in 6 months. [facility] Clinical Note Previous notes reviewed today [...] with more than 50% of the total dpnb-aj-fjyp time of the visit in counseling / coordination of care. 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 as diagnosed by Dr[facility]. No evidence of a paraprotein. [...] in concerned with recent CT done in [facility] with a left 8 mm nodule. Appears to be stable overall. Will consider following more closely but has multiple reasons for inflammatory changes included untreated sleep apnea and COVID-19 in 04/2020. Feels in pain from hip injection and has a UT (more content not included)... [facility]05-10-2023 Instructions* Patient Instructions* Jose Bryant MD - 10/07/2022 10:42 AM EDT RTC in 6 months labs and scans 1 week before Hold oral Iron while in [place] ( for 3 weeks) CT chest in 6 months with labs also. documented in this [facility] History of Present illness Narrative* Jose Bryant MD - 10/07/2022 10:33 AM EDT Images from the original note were not included. NAME: Jessica Ferrera CLINIC NO.: [id number] DATE OF SERVICE: June 10, 2022 (Andra) [...] stable - can reassess in 6 months. [facility] Clinical Note Previous notes reviewed today [...] with more than 50% of the total cgys-la-ubwr time of the visit in counseling / coordination of care. 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 as diagnosed by Dr[facility]. No evidence of a paraprotein. [...] in concerned with recent CT done in [facility] with a left 8 mm nodule. Appears [...] deviated septum noted low platelets. Colonoscopy in [place] 2016 with many polyps, recommended repeat. Colonoscopy in 2017 in [place]. June 27, 2018 She notes recent severe [...] 5 miles per day. Had trip to [place] in November for chest pain. CT chest [...] Other: See Comments Burning of skin [place]* GI Upset, Hives, Itching, Rash, Swelling Penicillins [...] bilateral CYSTO.PANENDO 06/05/2021 CYSTOURETHROSCOPY 06/20/15 Cystoscopy; Dr. Lombardo; [place] [facility] SURGERY HX Left HYSTERECTOMY HX 1995 [...] which included preparing to see the patient, ijyn-pw-vntl patient care, completing clinical documentation, performing a medically appropriate examination, counseling and educating the patient/family/caregiver, ordering medications, tests, or p rocedures, and independently interpreting results (not separately reported). Jose Bryant MD, CPE Hematology and Oncology Services Provided at: [place], [place] CC: Ricardo Hooper MD [address] [facility] [address] documented in this encounterMer[facility]05-10-[facility]23 Nurse Note* Desiree Connors MA - 10/07/2022 10:08 AM EDT Patient is going to physical therapy for back and head, her head is better. Desiree Connors MA documented in this encounterMer[facility]03-08-2023 NotePROCEDURE: XR ANKLE LT MIN 3 V COMPARISON: 10/01/2021 HISTORY: Pain of left ankle joint FINDINGS: BONES:No acute fracture or dislocation. Moderate to marked enthesopathic spurring of the plantar calcaneus. Mild degenerative changes with marginal osteophyte formation. SOFT TISSUES:Negative. No visible soft tissue swelling. EFFUSION:None visible. OTHER: Negative. IMPRESSION: Stable degenerative changes Electronically authenticated by: JOSE ALBERTO STEPHEN Date: 2022-08-05 13:47[facility]01-11-2023 Instructions* Patient Instructions* Jose Bryant MD - 06/10/2022 11:35 AM EST Keep appointment scheduled in September with Labs same day. Continue oral Iron CT chest in one year with labs also. Will order at next visit in September RTC in 6 months - same day as labs - CBC, CMP, Anemia documented in this encounterMercy [facility]01-11-2023 History of Present illness Narrative* Jose Bryant MD - 06/10/2022 11:26 AM EST Images from the original note were not included. NAME: Jessica Ferrera CLINIC NO.: [id number] [facility]: [facility] Some elements in this clinic note that [...] 1 year. Will discuss in 6 months. [facility] Clinical Note Previous notes reviewed today [...] with more than 50% of the total xkgl-ks-yilm time of the visit in counseling / coordination of care. 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 as diagnosed by Dr[facility]. No evidence of a paraprotein. [...] in concerned with recent CT done in [facility] with a left 8 mm nodule. Appears [...] deviated septum noted low platelets. Colonoscopy in [place] 2016 with many polyps, recommended repeat. Colonoscopy in 2017 in [place]. June 27, 2018 She notes recent severe [...] 5 miles per day. Had trip to [place] in November for chest pain. CT chest [...] Other: See Comments Burning of skin [place]* GI Upset, Hives, Itching, Rash, Swelling Penicillins [...] bilateral CYSTO.PANENDO 06/05/2021 CYSTOURETHROSCOPY 06/20/15 Cystoscopy; Dr. Lombardo; [place] [facility] HX Left HYSTERECTOMY HX 1995 left overy and hysterectomy. ROTATOR CUFF REPAIR 2013 Left x 2 SHOULDER SURGERY HX Right [...] which included preparing to see the patient, xdsh-qh-qpau patient care, completing clinical documentation, performing a medically appropriate examination, counseling and educating the patient/family/caregiver, ordering medications, tests, or p rocedures, and independently interpreting results (not separately reported). Jose Bryant MD, CPE Hematology and Oncology Services Provided at: [place], [place] CC: Ricardo Hooper MD [address] [facility] [address] documented in this encounterMercy Health [facility]11-15-2022 Miscellaneous Notes* Telephone Encounter - Martha Eugene RN - 04/14/2022 8:36 AM EST VM left that RX sent to Sanju Lindquist. Martha Eugene RN * Telephone Encounter - Martha Eugene RN - 04/13/2022 10:56 AM EST Pt is scheduled for 2 month follow up; 06/10/22. PIPPA/SRUTHI: Please review and sign iron RX pended by Allison Tavares. Thank you, Martha Eugene RN * Telephone Encounter - Georgia Field RN - 04/10/2022 4:15 PM EST [...] up with labs prior to visit. Thanks! Georgia Tavares RN * Telephone Encounter - Georgia Field RN - 04/10/2022 2:39 PM EST [...] back for labs prior to 6 months? Georgia Tavares RN * Telephone Encounter - Georgia Field RN - 04/10/2022 1:02 PM EST Call made to patient. No answer. Left message requesting call back. Georgia Tavares RN * Telephone Encounter - Jose [...] in the past. * Telephone Encounter - Georgia Field RN - 04/10/2022 9:39 AM EST Jessica called stating she is concerned about her iron levels and wants to know if you think she should follow up sooner than 6 months? Please advise. Georgia Tavares RN documented in this encounterMercy [facility]09-22-2022 Miscellaneous Notes* Telephone Encounter - Martha Eugene RN - 02/19/2022 9:[address] Alberto reviewed labs rec'd from [facility] this morning. He will discuss with patient all results on 03/12 appt. Nothing to address at this time. Martha Eugene RN * Telephone Encounter - Dedra Carr [facility] - 02/19/2022 8:11 AM EDT Records scanned. * Telephone Encounter - Angle Hawk Pss - 02/18/2022 4:03 PM EDT Appointment moved to after CT on 03/12, pt notified. * Telephone Encounter - Martha Eugene RN - 02/18/2022 3:52 PM EDT Pt aware can move pt up to Mar [address]. Pt states she also had a recent back surgery at [facility], in [place] with additional lab work. She is okay with getting all the results at her appt, unless you need to go over anything with her after reviewing all the results. PIPPA: review Dr Villasenor labs in the lab tab. I will have Rudi Carr get the additional labs from [facility] for you to review as well. Rudi Carr: Please obtain medical records from recent OR/Labs PSS: please call and schedule pt for follow up same day as CT per PIPPA. Thank you, Martha Eugene RN * Telephone Encounter - Jose Bryant MD - 02/18/2022 3:17 PM EDT Can I see her same day as CT? Do I need to review labs from outside and call her? * Telephone Encounter - Martha Eugene RN - 02/18/2022 12:37 PM EDT Pt labs sent from Dr Villasenor's office from 12/29/2021 draw. Pt is requesting to see PIPPA sooner than her March 19 appt. She is scheduled for CT 02/10. 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 Has been up walking. [...] D/C plan for home today 5. Ortho Bjxk-sk-Kpsg Discussion of Medical Necessity for Use of [...] provide stability after surgery. Quique Mojica MD [facility] Orthopa[facility]ics and Spine Spine Surgeon [phone] * Regina Pizarro RN - 02/16/2022 6:26 [...] evaluate in AM documented in this encounterBON Appetizer Mobile Phone: [phone]) 516-649009-19-2022 Hospital Discharge instructions* Discharge Instructions* Quique Mojica [...] redness, swelling or drainage after 4 days [phone] May shower in 2 days No tub baths for [address] [facility] Orthopaedics and Spine Spine Surgeon Keep it Clean - Post-Operative Home instructions These instructions are to help you have the best possible recovery after your surgical procedure. Brenda is here to support you. If you have questions, call [phone] Wednesday through Wednesday from 7:30AM to 8:30PM to speak to a nurse. If you need to speak to someone outside of these hours, call your physician. Incision Do s and Don ts Do wash hands before and after dressing changes or when you have had any contact with your incision. Use hand press operator instant print shop or antibacterial soap. Do keep your incision [...] through Care Everywhere. * Lumbar Laminectomy: Post-op (Namibian) * Constipation (Namibian) * DVT (Deep Vein Thrombosis): General Info (Namibian) * acetaminophen and oxycodone (Namibian) * tizanidine (Namibian) * ondansetron (oral) (Namibian) * docusate and senna (Namibian) documented in this encounterBON Appetizer Mobile Phone: [phone]) 642-489206-23-2022 History of Present illness Narrative* Monica Wallace Ma - 11/20/2021 9:33 AM EDT PVR = 0 ml Via bladder scan. * Dallas Lombardo MD - 11/20/2021 9:30 AM EDT [facility] RECONSTRUCTIVE SURGERY HISTORY OF PRESENT ILLNESS: Jessica Ferrera is a 66 year old female here today for a follow up regarding UTI. Last OV with Dr. Lombardo 06/05/2021 1. neg cysto, had neg CT [...] bilateral CYSTO.PANENDO 06/05/2021 CYSTOURETHROSCOPY 06/20/15 Cystoscopy; Dr. Lombardo; [place] [facility] SURGERY HX Left HYSTERECTOMY HX 1995 [...] ID see other rx non antibiotic Dallas Lombardo MD documented in this encounterMercy Health Fairfield Hospital06-08-2022 NotePROCEDURE: XR FOOT LT MIN 3 VIEWS COMPARISON: 10/01/2021 HISTORY: Pain in left foot FINDINGS: BONES:No acute fracture or dislocation. Moderate enthesopathic spurring of the calcaneus at the plantar insertion. Mild degenerative changes most significant in the midfoot SOFT TISSUES:Negative. No visible soft tissue swelling. EFFUSION:None visible. OTHER: Negative. IMPRESSION: Stable degenerative changes Electronically authenticated by: JOSE ALBERTO STEPHEN Date: 2021-11-05 17:28[facility] note* Diagnosis Screening for genitourinary condition- Primary Screening for other and unspecified genitourinary condition Recurrent UTI Urinary tract infection, site not specified Vaginal atrophy Postmenopausal atrophic vaginitis documented in this encounter [facility] noteNo assessment information availableOhio State University [facility] Work Phone: Evaluation note* Diagnosis Spinal stenosis, lumbar region with neurogenic claudication- Primary Lumbar stenosis with neurogenic claudication Spinal stenosis, lumbar region, with neurogenic claudication Hypertension Unspecified essential hypertension GERD (gastroesophageal reflux disease) Esophageal reflux documented in this encounter [employer] Work Phone: evaluation note* Diagnosis Iron deficiency anemia secondary to inadequate dietary iron intake documented in this encounter [facility] note* Diagnosis Iron deficiency anemia secondary to inadequate dietary iron intake- Primary Pulmonary nodules Other nonspecific abnormal finding of lung field Mediastinal lymphadenopathy Enlargement of lymph nodes Idiopathic cytopenia of undetermined significance (ICUS) documented in this encounter [facility] note* Diagnosis Iron deficiency anemia secondary to inadequate dietary iron intake- Primary Thrombocytopenia (HCC) Thrombocytopenia, unspecified Lung nodules Other nonspecific abnormal finding of lung field documented in this encounter [facility] note* Diagnosis Thrombocytopenia (HCC)- Primary Thrombocytopenia, unspecified Iron deficiency anemia secondary to inadequate dietary iron intake [facility] Narrative No data available for this section [facility] No data available for this section [facility] HospitalReason for visit Narrative* Auth/Cert Specialty Diagnoses / Procedures Referred By Contac t Referred To Contact Diagnoses Lumbar spinal stenosis LUMBAR SPINAL STENOSIS Procedures GA LAMINECTOMY,>2 SGMT,LUMBAR LAMINEC/FACETECT/FORAMIN,MARCIAL MBAR 1 SEG L3-4 LUMBAR LAMINECTOMY POSTERIOR ABOVE PREVIOUS L 4-5 FUSION Quique Mojica MD [address] [place] [address] [employer] [address] [place] [address] Referral ID Status Reason Start Date Expiration Date Visits Re quested Visits Authorized [id number] 1 1 ANGEL DURHAM [employer] Phone: Summary Purpose Family History No Family History Records Found Relationship Condition Age at Onset Recorded Date/T kentrell father Hypertension Unknown Heart disease Unknown Malignant neoplasm Unknown Not Specified Hypertension Unknown Advance Directives No Advanced Directives Records FoundDocuments on File Type Date Recorded 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 Advance Directive(s) 07/22/2018 3:03 PM [...] COMPUTED TOMOGRAPHY THORAX W/CONTRAST Jose Bryant MD [address] [place] [address] [place] [address] Ct Imaging Referral ID Status Reason Start Date Expiration Date Visits Requested Visits Authorized [id number] Authorized Auto-Generat ed Referral 3 11/06/2023 1 1 Additional Source Comments INFORMATION SOURCE (unrecogn ized section and content) DATE CREATED AUTHOR 09/24/2021 [facility] Me dical Specialist DATE CREATED AUTHOR AUTHOR'S ORGANIZ ATION 10/09/2022 [facility] DATE CREATED AUTHOR AUTHOR'S ORGANIZ ATION 10/12/2022 [facility] DATE CREATED AUTHOR AUTHOR'S ORGANIZ ATION 01/12/2023 [facility] DATE CREATED AUTHOR AUTHOR'S ORGANIZ ATION 03/01/2023 [facility] DATE CREATED AUTHOR AUTHOR'S ORGANIZ ATION 06/25/2023 [facility] DATE CREATED AUTHOR AUTHOR'S ORGANIZ ATION 06/26/2023 [facility] dical Specialists EPIC Source Comments (unrecognize d section and content) In the event this informatio n is protected by the Federal Confidentiality of Alcohol and Drug Abuse Patient Records regulations: The Federal rules restrict any use of the information to criminally investigate or prosecute any alcohol or drug abuse patient.[facility] HospitalIn the event this information is protected by the Federal Confidentiality of Alcohol and Drug Abuse Patient Records regulations: The Federal rules restrict any use of the information to criminally investigate or prosecute any alcohol or drug abuse patient.[facility] HospitalIn the event this information is protected by the Federal Confidentiality of Alcohol and Drug Abuse Patient Records regulations: The Federal rules restrict any use of the information to criminally investigate or prosecute any alcohol or drug abuse patient.[facility] HospitalIn the event this information is protected by the Federal Confidentiality of Alcohol and Drug Abuse Patient Records regulations: The Federal rules restrict any use of the information to criminally investigate or prosecute any alcohol or drug abuse patient.[facility] HospitalIn the event this information is protected by the Federal Confidentiality of Alcohol and Drug Abuse Patient Records regulations: The Federal rules restrict any use of the information to criminally investigate or prosecute any alcohol or drug abuse patient.[facility] HospitalIn the event this information is protected by the Federal Confidentiality of Alcohol and Drug Abuse Patient Records regulations: The Federal rules restrict any use of the information to criminally investigate or prosecute any alcohol or drug abuse patient.[facility] Reason for Visit (unrecogniz ed section [...] Provider Active Referral Self Attending Provider Active Executive Officer Special Warfare Team Relationship Specialty Start Date End Date Ricardo Hooper MD [address] [place] [address] PCP - General Family Practice 01/11/19 Madisyn Lara MD [address] [place] [address] Primary Staff Physician Cardiology 08/16/18 Team Status: Inactive Member Role Status Dates Ricardo Hooper MD Primary Care Provider Active Rocky Villasenor MD Attending Provider Active Team Status: Inactive Member Role Status Dates Ricarod Hooper MD Primary Care Provider Active Enmanuel Burton DO Attending Provider Active [employer] Relationship Specialty Start Date End Date Ricardo Hooper MD [address] [place] [address] PCP - General Family Medicine 09/16/21 [employer] Relationship Specialty Start Date End Date Ricardo Hooper MD [address] [place] [address] PCP - General Family Medicine 09/16/21 [employer] Relationship Specialty Start Date End Date Ricardo Hooper MD [address] [place] [address] PCP - General Family Medicine 01/11/19 Madisyn Lara MD [address] [facility] [place] [address] Primary Staff Physician Cardiology 08/16/18 [employer] Relationship Specialty Start Date End Date Ricardo Hooper MD [address] [place] [address] PCP - General Family Medicine 01/11/19 Madisyn Lara MD [address] [facility] [place] [address] Primary Staff Physician Cardiology 08/16/18 [employer] Relationship Specialty Start Date End Date Ricardo Hooper MD [address] [place] [address] PCP - General Family Medicine 01/11/19 Madisyn Lara MD [address] [facility] [place] [address] Primary Staff Physician Cardiology 08/16/18 Executive [employer] Relationship Specialty Start Date End Date Ricardo Hooper MD PCP - General Family Medicine 01/11/19 Madisyn Lara MD [address] [place] [address] Primary Staff Physician Cardiology 08/16/18 Executive [employer] Relationship Specialty Start Date End Date Ricardo Hooper MD PCP - General Family Medicine 01/11/19 Madisyn Lara MD [address] [facility] [address] [place] [address] Primary Staff Physician Cardiology 08/16/18 Goals (unrecognized [...] Wed02/16/22 at 2200, For 3 doses, Post-op 2043 (Given - Provider: Becky Villavicencio RN) 0524 [...] Discontinued, Post-op 190 (Given - Provider: Regina Pizarro, NING) pantoprazole (PROTONIX) tablet 40 mg 40 mg, [...] Akilah Zaman RN)0854 (Stopped - Provider: Regina Pizarro RN) lactated ringers infusion (CANCELED) IntraVENous, at 50 mL/hr, CONTINUOUS, Starting on Wed02/16/22 at 1115, Substitute normal saline for patients with renal insufficiency/failure, Pre-op (day of surgery) 1126 (New Bag - Provider: Paula Isabel, RN) 1157 (Stopped - Provider: Regina Pizarro [...] Muscle spasms, Post-op bupivacaine-EPINEPHrine PF (MARCAINE-w/EPINEPHRINE) 0.5% -[id number] injection (CANCELED) PRN, Starting on Wed02/16/22 at [...] PACU only 1700 (Given - Provider: Patito Palafox, RN)1709 (Given - Provider: Patito Palafox, RN) hydrOXYzine HCl (ATARAX) tablet 10 mg 10 mg, Oral, EVERY 8 HOURS PRN, Starting on Wed02/16/22 at 1819, Until Discontinued, Itching, Post-op morphine (PF) injection 2 mg(Linked Group 1) 2 mg, IntraVENous, EVERY 2 HOURS PRN, Starting on Wed02/16/22 at 181, Until Discontinued, Pain Moderate (4-6), If oral [...] RN) 011 (Given - Provider: Becky Villavicencio RN)05 (Given - Provider: Becky Villavicencio RN)1051 (Given [...] BE BASED ON THE PRIMARY CLINICAL RECORDS. [employer] [facility]. provides no warranty or guarantee of the accuracy or completeness of information in this document.
== END 2023-06-30 12:27 | disposition home or self-care (01) ==
LOC: MRI 12:26
PROVIDERS: PCP Family Medicine; Visit Provider Personal Emergency Response Attendant
DX: M25.552 Pain in left hip (principal)
CPT/HCPCS: 73721

== ENCOUNTER 2023-07-14 07:14 | Day surgery (SDC) | payer MEDICARE, SELFPAY ==
--- NOTE | 2023-07-14 07:18 | FL_ITS ---
The [address] [address] Patient Name: QUANG SALDIVAR MRN: [id number] date: 1955 Sex: F Assigned Patient Location: [place] Current Patient Location: [place] Accession/Order Number: [id number] Exam Date: 07/14/2023 07:40 Report Date: 07/14/2023 08:57 At the request of: SALIMA GERARD Procedure: FL hip inj LT EXAMINATION: FL hip inj LT, FL guided needle placement HISTORY: Left Hip Degenerative Joint Disease COMPARISON: No relevant comparison available. TECHNIQUE: An arthrogram was performed under fluoroscopic guidance using non-ionic contrast material in the usual sterile manner after obtaining informed consent. Standard level fluoroscopic mode of operation utilized. FINDINGS: JOINT: Left hip NEEDLE: 25 gauge, 3.5 spinal needle. MEDICATION: 2 mL buffered 1% lidocaine for subcutaneous anesthesia. 2 mL Omnipaque-300 iodinated contrast to visualize the joint space. 40 mg Kenalog, 2 mL 0.5% bupivacaine, and 3 mL Omnipaque 300 injected into the joint space. TECHNIQUE: Anterior approach with prior localization of the femoral artery. A single stick was successful in gaining access to the joint space. CLINICAL: Improvement of joint pain post injection (5/10 preinjection; 0/10 post injection). COMPLICATIONS: None. OTHER: Negative. FL/FL hip inj LT IMPRESSION: 1. Successful left hip injection with reduction of patient's pain. Electronically authenticated by: BEVERLEY ARDON Date: 07/14/2023 08:57
--- NOTE | 2023-07-14 07:18 | FL_ITS ---
[address] [address] Patient Name: QUANG SALDIVAR MRN: [id number] date: 1955 Sex: F Assigned Patient Location: [place] Current [place] Location: [place] Accession/Order Number: [id number] Exam Date: 07/14/2023 07:40 Report Date: 07/14/2023 08:57 At the request of: SALIMA GERARD Procedure: FL guided needle placement EXAMINATION: FL hip inj LT, FL guided needle placement HISTORY: Left Hip Degenerative Joint Disease COMPARISON: No relevant comparison available. TECHNIQUE: An arthrogram was performed under fluoroscopic guidance using non-ionic contrast material in the usual sterile manner after obtaining informed consent. Standard level fluoroscopic mode of operation utilized. FINDINGS: JOINT: Left hip NEEDLE: 25 gauge, 3.5 spinal needle. MEDICATION: 2 mL buffered 1% lidocaine for subcutaneous anesthesia. 2 mL Omnipaque-300 iodinated contrast to visualize the joint space. 40 mg Kenalog, 2 mL 0.5% bupivacaine, and 3 mL Omnipaque 300 injected into the joint space. TECHNIQUE: Anterior approach with prior localization of the femoral artery. A single stick was successful in gaining access to the joint space. CLINICAL: Improvement of joint pain post injection (5/10 preinjection; 0/10 post injection). COMPLICATIONS: None. OTHER: Negative. FL/FL guided needle placement IMPRESSION: 1. Successful left hip injection with reduction of patient's pain. Electronically authenticated by: BEVERLEY ARDON Date: 07/14/2023 08:57
--- OUTSIDE RECORDS SUMMARY | 2023-07-14 07:18 | XMS_ITS | CCD ---
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 Name Role Phone Ricardo Hooper MD Primary Care Provider [phone] Madisyn Lara MD Unavailable MD Ricardo Hooper Primary Care Provider [phone] MD Rocky Villasenor Attending Provider DO Enmanuel Burton Attending Provider Ricardo Hooper MD Primary Care Provider [phone] Ricardo Hooper MD Primary Care Provider Marco DANGELO, Madisyn Reagan Unavailable [phone] Ricardo Hooper MD Primary Care Provider [phone] Madisyn Lara MD Unavailable [phone] Ricardo Hooper MD Primary Care Provider [phone] RICARDO IYER Admitting Unavailable SANDIE ., [...] Attending Unavailable VERNELL FARRELL Admitting Unavailable SANDIE Doty, DR SILVA Primary Care Unavailable VERNELL FARRELL Consulting Unavailable VERNELL FARRELL Attending Unavailable HOY ., DR SILVA Primary Care Unavailable JAMI VERNELL Admitting Unavailable JAMI, VERNELL Admitting Unavailable [...] Primary Care Unavailable EVERARDO PERALTA Attending Unavailable AXTELL, DR JOSE ALBERTO Long Consulting Unavailable EVERARDO [...] HOFely ., DR SILVA Primary Care Unavailable QUENTIN [...] Unavailable MD Ricardo Hooper Primary Care Provider [phone] Self, Referral Attending Provider Unavailable Hoy, Ricardo M Primary Care Unavailable Self, Referral Attending Unavailable Self, Referral Admitting Unavailable Madisyn Lara MD Unavailable [phone] ABHYANKAR, JOSE Referring Unavailable HOY, RICARDO M Primary Care Unavailable HOY, RICARDO M Primary Care Unavailable ABHYANKAR, JSOE Referring Unavailable HOY, RICARDO M Primary Care Unavailable ABHYANKAR, JOSE Attending Unavailable HOY, RICARDO M Primary Care Unavailable ABHYANKAR, JOSE Attending Unavailable ABHYANKAR, JOSE Referring Unavailable HOY, RICARDO M Primary Care Unavailable HOY, RICARDO M Primary Care Unavailable DALLAS LOMBARDO Attending Unavailable Ricardo Hooper MD Primary Care Provider [phone] DALIA VIGIL Attending Unavailable DALIA VIGIL Referring Unavailable JR. PEDRO GEORGE C Attending Unavaila ble Allergies Allergy Classification Reported Allergen(s) Allergy Type Date of Onset Reaction(s) Facility (16 sources) Ciprofloxacin; Translations: [ciprofloxacin] Drug Allergy 01-31-20 13 Intolerance, Respiratory function (observable entity), Joint pain (finding), GI intolerance [facility] (13 sources) Clindamycin; Translations: [clindamycin] Drug Allergy 01-24-20 15 Vomiting [facility] (18 sources) Doxycycline; Translations: [doxycycline] Drug Allergy 05-14-20 20 Vomiting, Nausea And Vomiting, GI intolerance, Unknown [facility] (10 sources) NITROFURANTOIN, MACROCRYSTALS / Nitrofurantoin, Monohydrate; Translations: [nitrofurantoin] Drug Allergy 10-23-19 22 GI Upset, Hives, Itching, Rash, Swelling [facility] (6 sources) Penicillins; Translations: [PENICILLINS] Drug Allergy 01-31-20 13 Shortness of Breath [facility] (10 sources) tioconazole; Translations: [tioconazole topical] Drug Allergy 01-23-20 15 Other: See Comments [facility] (9 sources) Skin Cleanser Combination No.17; Translations: [SKIN CLEANSER COMBINATION NO.17] Drug Allergy 09-02-19 18 Unknown [facility] (8 sources) Miconazole; Translations: [miconazole] Drug Allergy 01-31-20 13 Unknown [facility] (5 sources) Nitrofurantoin Drug Allergy 01-27-20 22 Rash [facility] (5 sources) Clindamycin/Lincom ycin Propensity to adverse reactions to drug 01-31-20 13 Unknown, Nausea Only, GI intolerance [facility] Work Phone: (7 sources) Penicillins Drug Allergy 01-24-20 15 Shortness of Breath [facility] (11 sources) levoFLOXacin; Translations: [levofloxacin] Drug Allergy 04-09-20 22 Myalgia, Joint swelling (finding), Swelling [facility] (1 source) Ciprofloxacin Drug Allergy 03-16-20 14 [facility] (1 source) Clindamycin Drug Allergy 03-16-20 14 [facility] (1 source) Doxycycline Drug Allergy 05-14-20 20 [facility] (3 sources) levoFLOXacin; Translations: [Levaquin] Drug Allergy 04-28-20 22 [facility] (1 source) Miconazole Drug Allergy [facility] (3 sources) Nitrofurantoin; Translations: [Macrobid] Drug Allergy 04-28-20 22 [facility] (1 source) Penicillins Drug allergy (disorder) 03-16-20 14 [facility] (2 sources) Penicillin; Translations: [penicillin] Drug Allergy [facility] (1 source) tioconazole; Translations: [tioconazole topical] Drug Allergy 01-23-20 15 [facility] (1 source) Clindamycin Drug Allergy 12-19-19 21 [facility] (1 source) Doxycycline Drug Allergy 12-19-19 21 [facility] (1 source) Penicillins Drug allergy (disorder) 12-19-19 21 [facility] (3 sources) Nitrofurantoin Drug Allergy 10-23-19 22 GI intolerance, Hives, Itching, Rash, Swelling [facility] (3 sources) Penicillins Drug Allergy 01-31-20 13 Shortness of breath [facility] (3 sources) Tioconazole Allergy to substance 01-23-20 15 Itching, Unknown [facility] Medications Current Medications Medication Drug Class(es) Dates [...] (PERCOCET) 5-325 MG per tablet 1 tablet benzonatate 200 mg oral capsule (3 sources) Non-narcotic Antitussive Start: 03-27-2022 take 1 capsule by mouth three times daily as needed benzonatate (Tessalon) 200 MG capsule Take 200 mg by mouth 3 (three) times a day as needed. 0 03/27/2022 Active biotin 10 mg oral tablet (1 source) take 1 tablet by mouth at bedtime Biotin 78898 MCG TABS Take 1 tablet by mouth in the morning and at bedtime 0 Active cranberry preparation 250 mg oral capsule (2 sources) Non-Standardized Food Allergenic Extract, Non-Standardized Plant Allergenic Extract Cranberry 250 MG capsule docusate sodium 50 mg / sennosides, custodial 8.6 mg oral tablet (2 sources) Start: 02-16-2022 take 1 tablet by mouth twice daily sennosides-docusat e sodium (SENOKOT-S) 8.6-50 MG tablet Take 1 tablet by mouth 2 times daily 60 tablet 0 02/17/2022 Active esomeprazole 40 mg delayed release oral capsule (16 sources) Proton Pump Inhibitor Start: 10-19-2009 take 1 capsule by mouth once daily Esomeprazole Magnesium (Nexium) 40 mg Capsule,Delayed Release(Dr/Ec) Active 40 MG PO Daily May 17, 2018 1:00am take 40 mg by mouth once daily e someprazole Magnesium (NEXIUM) 40 MG PACK Take 40 mg by mouth daily. 0 Active Comment on above: Take 40 mg by mouth. etodolac 400 mg oral tablet (2 sources) Nonsteroidal Anti-inflammatory Drug Start: 07-06-2023 etodolac (Lodine) 400 MG tablet every 12 (twelve) hours 0 07/06/2023 Active ferrous sulfate 325 mg oral tablet (7 sources) Start: 04-14-2022 take 1 tablet by mouth at mealtime ferrous sulfate 325 (65 Fe) MG tablet Take 325 mg by mouth in the morning. Take with meals. 0 04/14/2022 Active Start: 04-14-2022 End: 04-09-2023 take 1 tablet by mouth once daily at breakfast ferrous sulfate 325 mg (65 mg iron) tablet Take 1 tablet by mouth daily with breakfast. 30 tablet 6 04/14/2022 04/09/2023 Active Comment on above: Take 1 tablet by landy th daily with breakfast. FLUTICASONE PROPIONATE, INHAL, IN (3 sources) FLUTICASONE PROP IONATE, INHAL, IN Administer into affected nostril(s). 0 Active hydrocortisone 10 mg/ml / neomycin 3.5 mg/ml / polymyxin b 53377 unt/ml otic suspension (3 sources) Aminoglycoside Antibacterial, Polymyxin-class Antibacterial, Corticosteroid Start: 2021 End: 2023 pdcazvon-qqghqkqeu-dxkm ocortisone (Cortisporin) 3.5-58124-2 otic suspension instill 4 drops INTO AFFECTED EAR(S) three times a day 0 04/30/2022 07/12/2023 Discontinued hydroxychloroquine sulfate 200 mg oral tablet (3 sources) Antimalarial, Antirheumatic Agent Start: 2022 End: 2023 take 2 tablets by mouth every week, then take 1 tablet by mouth every week hydroxychloroquine (Plaquenil) 200 MG tablet take 2 tablets by mouth every week BEGINNING 1 TO2 WKS PRIOR TO T... (REFER TO PRESCRIPTION NOTES). 0 08/28/2022 07/12/2023 Discontinued ibuprofen 800 mg oral tablet (13 sources) Nonsteroidal Anti-inflammatory Drug Start: 2015 take 800 mg by mouth three times [...] in the CT contrast administration guidelines link. Lactobacillus (2 sources) Start: 06-23-19 24 Lactobacillus (Acidophilus Probiotic) 0.5 MG tablet lisinopril 20 mg oral tablet (16 sources) Angiotensin Converting Enzyme Inhibitor Start: 10-10-19 16 End: 02-18-20 22 take 20 mg by mouth once daily Lisinopril Active 20 MG PO Daily May 17, 2018 1:00am Comment on above: lisinopril 20 mg tab let Take 1 tablet every day by oral route. mometasone furoate 0.05 mg/actuat metered dose nasal spray (6 sources) Corticosteroid Start: 12-19-19 Mometasone (Nasonex) 50 mcg/actuation Raymond,Non-Aerosol Active 2 SPRAY INTRANASAL Daily December 18, 2020 12:00am mometasone (Naso nex) 50 MCG/ACT nasal spray 2 sprays. 0 Active take 2 spray(s) nasal route once daily [...] PO Bedtime May 17, 2018 1:00am sennosides, custodial 8.6 mg oral tablet (5 sources) Start: 10-10-2015 take 8.6 mg by mouth once daily Senokot 8.6 mg, Oral, Daily, Refills(s) 0, Constipation Start Date: 10/10/15 Status: Ordered tiZANidine 4 mg oral tablet (4 sources) Central alpha-2 Adrenergic Agonist Start: 07-07-2022 End: 07-12-2023 take 1 tablet by mouth three times daily as needed tiZANidine (Zanaflex) 4 MG tablet Take 4 mg by mouth 3 (three) times a day as needed. 0 07/07/2022 07/12/2023 Discontinued Start: 02-16-2022 End: 02-16-2022 tiZANidine (ZANAFLEX) tablet 4 mg traMADol hydrochloride 50 mg oral tablet (6 sources) Opioid Agonist Start: 12-18-2020 take 1 tablet by mouth in the morning traMADol (Ultram) 50 MG tablet Take 50 mg by mouth in the morning. 0 10/29/2022 Active take 1 tablet by landy th every six hours as needed for pain traMADol (ULTRAM) 50 MG tablet Take 50 m g by mouth every 6 hours as needed for Pain. 0 Active triamcinolone acetonide 1 mg/ml topical cream (3 sources) Corticosteroid Start: 06-30-2023 triamcinolone (Kenalog) 0.1 % cream Indications: Atrophic vaginitis Apply topically 2 (two) times a day 15 g 1 06/30/2023 Active Completed/Discontinued Medications Medication Drug Class(es) Dates Sig (Normalized) Sig (Original) acetaminophen 500 mg oral tablet (1 source) Start: 02-16-2022 End: 02-16-2022 acetaminophen (TYLENOL) tablet 1,000 mg [id number] 200 actuat albuterol 0.09 mg/actuat metered dose [...] 0 Active baclofen 10 mg oral tablet (15 sources) gamma-Aminobutyric Acid-ergic Agonist Start: 02-16-2022 take [...] Start: 02-16-2022 End: 02-16-2022 lactated ringers infusion cefdinir 300 mg oral capsule (5 sources) Cephalosporin Antibacterial Start: 09-28-2022 End: 10-17-2022 cefdinir (OMNICEF) 300 mg capsule Start: 09-28-2022 take 2 capsules by m outh once daily cefdinir (OMNICEF) 300 mg capsule take 2 capsules by mouth once daily for 10 days 0 09/28/2022 Active Comment on above: take 2 capsules by m outh once daily for 10 days 1 ml dexamethasone phosphate 10 mg/ml injection (1 source) Corticosteroid Start: 02-16-2022 End: 02-17-2022 6 mg, IntraVENous, EVERY 8 HOURS, First dose on 02/16/22 at 2200, For 3 doses, Post-op estradiol 0.1 mg/ml vaginal cream (14 sources) Estrogen Start: 06-24-2023 estradiol (ESTRACE) 0.01 % (0.1 mg/gram) vaginal cream Place a pea size amount in the vaginal area three times a week 42.5 g 3 06/24/2023 Active Start: 05-05-2023 estradiol (Est race) 0.1 MG/GM vaginal cream Indications: Postmenopausal HRT (hormone replacement therapy) Vaginal 42.5 g 0 05/05/2023 Active Start: 05-17-2018 estradiol (EST RACE) 0.01 % (0.1 mg/gram) vaginal cream 1 g. 0 05/17/2018 Active Start: 05-17-2018 Estradiol (Est race) 0.01 % (0.1 mg/gram) Cream Active 1 GM VAGINAL every week May 17, 2018 1:00am Start: 10-10-2015 Estrace = 0.01 %, Refills(s) 0, Prophylaxis Start Date: 10/10/15 Status: Ordered Comment on above: [address] pea size dalton unt in the vaginal area three times a week fluticasone propionate 0.05 mg/actuat metered dose nasal spray (5 sources) Corticosteroid Start: take 2 spray(s) nasal route once daily [...] oral capsule (1 source) Anti-epileptic Agent Start: 02-17-20 End: 02-17-20 gabapentin (NEURONTIN) capsule 300 mg 0.5 ml HYDROmorphone hydrochloride 1 mg/ml prefilled syringe (1 source) Opioid Agonist Start: 02-17-20 End: 02-17-20 HYDROmorphone HCl PF (DILAUDID) injection 0.5 mg hydrOXYzine hydrochloride 10 mg oral tablet (1 source) Antihistamine Start: 02-17-20 take 10 mg by mouth every eight hours as needed 10 mg, Oral, EVERY 8 HOURS PRN, Starting on Wed02/16/22 at 1819, Until Discontinued, Itching, Post-op methenamine hippurate 1000 mg oral tablet (7 sources) Start: 06-23-19 take 1 tablet by mouth twice daily at mealtime Methenamine Hippurate (HIPREX) 1 gram tablet Take 1 tablet by mouth two times a day with meals. 180 tablet 06/24/2023 Active Start: 06-05-2021 take 1 tablet by landy th twice daily at mealtime Methenamine Hippurate (HIPREX) 1 gram tablet Take 1 tablet by mouth twice daily with meals. 60 tablet 06/05/2021 Active Comment on above: Take 1 tablet by landy th twice daily with meals. Take 1 tablet by landy th two times a day with meals. One A Day Women's Complete (1 source) Start: 02-08-20 One A Day Women's Complete Oral, Daily Start Date: 02/07/21 Status: Ordered pantoprazole 40 mg delayed release oral tablet (1 source) Proton Pump Inhibitor Start: 02-17-20 take 40 mg by mouth once daily 40 mg, Oral, DAILY, First dose on Wed02/16/22 at 1845, Until Discontinued Do not crush or break. Substit uted for esomeprazole Post-op polyethylene glycol 3350 36638 mg powder for oral solution (1 source) Osmotic Laxative Start: 02-17-20 17 g, Oral, DAILY, First dose on Wed02/16/22 at 1845, Until Discontinued, Post-op 5 ml sodium chloride 9 mg/ml injection (4 sources) Start: 02-17-20 take 1 dose intravenously twice daily 5-40 [...] mg / trimethoprim 80 mg oral tablet (11 sources) Dihydrofolate Reductase Inhibitor Antibacterial, Sulfonamide Antimicrobial [...] daily. Take by mouth once d aily. traZODone hydrochloride 100 mg oral tablet (16 sources) Serotonin Reuptake Inhibitor Start: 0 take 1 tablet by mouth once daily at bedtime traZODone (DESYREL) 100 mg tablet Take 100 mg by mouth daily at bedtime. 0 01/12/2019 Active Comment on above: Take 100 mg by mouth daily at bedtime. vancomycin (VANCOCIN) 1,500 mg in dextrose 5 % 250 mL IVPB (1 source) Start: 2 End: 2 1,500 mg, IntraVENous, EVERY 12 HOURS, 1 dose, First dose on Wed02/16/22 at 1845 Antimicrobial Indications: Surgical Prophylaxis Post-op Problems Active Problems Problem Classification Problem Date Documented Date Episodic/Chronic Chronic obstructive pulmonary disease and bronchiectasis (1 source) Bronchitis 08-11-2013 Episodic Coagulation and hemorrhagic disorders (11 sources) Platelet count below reference range; Translations: [Thrombocytopenia, unspecified] Onset: 07-15-2018 07-15-2018 Chronic Deficiency and other anemia (1 source) Anemia, unspecified; Translations: [ANEMIA UNSPECIFIED] Onset: 09-04-2022 Episodic Diabetes mellitus without complication (1 source) Other abnormal glucose; Translations: [OTHER ABNORMAL GLUCOSE] Onset: 09-04-2022 Episodic Diseases of white blood cells (1 source) Lymphocytosis; Translations: [Lymphocytosis (symptomatic)] 07-13-2023 Chronic Disorders of lipid metabolism (1 source) Hyperlipidemia, unspecified; Translations: [HYPERLIPIDEMIA UNSPECIFIED] Onset: 09-04-2022 Chronic Endometriosis (1 source) Endometriosis (clinical) 08-11-2013 Chronic Esophageal disorders (6 sources) Gastroesophageal reflux disease; Translations: [Gastro-esophageal reflux disease without esophagitis] Onset: 10-09-2022 12-18-2020 Chronic Essential hypertension (8 sources) Hypertensive disorder; Translations: [Essential (primary) hypertension] Onset: 08-29-2022 Chronic Lymphadenitis (10 sources) Mediastinal lymphadenopathy; Translations: [Localized enlarged lymph nodes] Onset: 01-15-2021 01-15-2021 Episodic Menopausal disorders (1 source) Atrophy of vagina; Translations: [Postmenopausal atrophic vaginitis] Chronic Osteoarthritis (3 sources) Arthritis; Translations: [Osteoarthritis of left hip joint] 02-07-2021 Chronic Other acquired deformities (1 source) Spondylolisthesis, site unspecified; Translations: [Spondylolisthesis, site unspecified] Onset: 01-11-2023 Episodic Other aftercare (1 source) Other press tender long goods (current) drug therapy; Translations: [OTH ASSISTED CURRENT DRUG THERAPY] Onset: 10-09-2022 Episodic Other and unspecified benign neoplasm (2 sources) History of polyp of colon; Translations: [Personal history of colonic polyps] 12-18-2020 Episodic Other connective tissue disease (1 source) Presence of unspecified artificial knee joint; Translations: [PRESENCE UNS ARTIFICIAL KNEE JOINT] Onset: 10-09-2022 Chronic Other connective tissue disease (1 source) Fibromyalgia; Translations: [FIBROMYALGIA] Onset: 10-09-2022 Episodic Other connective tissue disease (2 sources) Muscle weakness of limb; Translations: [Other symptoms and signs involving the musculoskeletal system] 07-12-2023 Episodic Other connective tissue disease (2 sources) Pain in limb; Translations: [Pain in unspecified limb] 07-12-2023 Episodic Other ear and sense organ disorders (3 sources) Otalgia, left ear; Translations: [OTALGIA LEFT EAR] Onset: 10-08-2022 Episodic Other ear and sense organ disorders (1 source) Bullous myringitis, left ear; Translations: [BULLOUS MYRINGITIS LEFT EAR] Onset: 10-09-2022 Episodic Other nervous system disorders (2 sources) Numbness; Translations: [Anesthesia of skin] 07-12-2023 Episodic Other nervous system disorders (2 sources) Paresthesia; Translations: [Paresthesia of skin] 07-12-2023 Episodic Other non-traumatic joint disorders (4 sources) [...] urticaria; Translations: [ALLERGIC URTICARIA] Onset: 10-22-2021 Episodic Deficiency and other anemia (10 sources) Iron deficiency anemia secondary to inadequate dietary iron intake; Translations: [Other iron deficiency anemias] Onset: 04-10-2022 Episodic E Codes: Adverse effects of medical [...] VIR OTH RSP MANF] Onset: 04-30-2022 Episodic Malaise and fatigue (1 source) Weakness; Translations: [WEAKNESS] Onset: 01-30-2022 Episodic Other connective tissue disease (8 sources) Enthesopathy of ankle AND/OR tarsus; Translations: [Other enthesopathy of unspecified foot and ankle] Onset: 08-19-2009 07-21-2018 Episodic Other connective tissue disease (8 sources) Tibialis tendinitis; Translations: [Posterior tibial tendinitis, [...] ACQUIRED] Onset: 11-26-2021 Episodic Other hematologic conditions (9 sources) Cytopenia; Translations: [Disease of blood and blood-forming organs, unspecified] Onset: 01-15-2021 01-15-2021 Episodic Other lower respiratory disease (10 sources) Multiple nodules of lung; Translations: [Other nonspecific abnormal finding of lung field] Onset: 01-15-2021 01-15-2021 Episodic Other lower respiratory disease (1 source) Other nonspecific abnormal finding of lung field; Translations: [Lung nodules] Onset: 03-31-2023 Episodic Other nervous system disorders (1 source) [...] Test Name Value Interpretation Reference Range Facility [facility] 07-08-2023 [facility] Visit (SP) Office ([place]) JESSICA FERRERA ([id number]) 1955 F Date Time Provider Department 07/08/23 10:45 AM JOSE BRYANT During your visit today, we recorded the following information about you: Temperature Pulse Respiration Blood pressure 97.8 degrees 80/minute 18/minute 137/84 Weight Height 115.6 kg 1.626 m Jose Bryant MD 07/10/2023 11:47 AM Signed NAME: Jessica Ferrera CLINIC NO.: [id number] DATE OF SERVICE: July 08, 2023 (yadiel) Some elements in this clinic note that are critical to medical decision making have been carefully reviewed and included from a prior clinic note dated: June 10, 2022 (Andra) CHIEF COMPLAINT: followup for anemia ASSESSMENT: (D72.820) Lymphocytosis (primary encounter diagnosis) (D69.6) Thrombocytopenia (HCC) (D50.8) Iron deficiency anemia secondary to inadequate dietary iron intake (R59.0) Mediastinal lymphadenopathy Iron deficiency With anemia - improving. Responding to oral iron replacement ferrous sulfate 325 mg either to be taken twice a day or once every other day. Now at Hgb of 12.2 g/dL Pulmonary nodule is stable - since 03/2022 and is going to be following with pulmonary medicine soon. PLAN: RTC in 6 months labs, include flow cytometry 1 week before - [facility] Clinical Note Previous notes reviewed today [...] with more than 50% of the total [id number] time of the visit in counseling / coordination of care. Yo Morse MD, MS Unloading Checkerhat lining paster Hematology and Medical Oncology [facility] [place] [id number] Labs and Imaging Reviewed outside records provided prior to this visit and those in [facility]. as diagnosed by Dr. Morse [facility]. No evidence of a paraprotein. [...] is not particularly concerning. Monitoring for now. - HPI: CASE HISTORY: Reverse Chronological Order 03/31/2023 - CT Chest: Interval resolution of previously noted left lower lobe nodular opacity. Residual subcentimeter nodular opacities and groundglass opacities measuring up to 5-6 mm, stable since 04/06/22. Borderline mediastinal lymphadenopathy, stable. 04/06/2022 - CT Chest: New 2 mm left lower lobe nodular opacity, most likely infectious/inflammato ry in etiology. Consider follow-up to complete resolution. New streaky scarring/discoid atelectasis in the right middle lobe. Borderline mediastinal lymphadenopathy, stable. 6-7 mm groundglass opacity in the left upper lobe, stable since 2/11/19. This may also be evaluated at interval follow-up. 01/10/2021 - CT Chest: 8mm groundglass opacity left upper lobe, nonspecific. 01/04/2019 - CT Chest: Stable appearance of left upper lobe groundglass nodule. No new or enlarging nodules are seen. Recommend follow-up in 24 months, per Fleischner Society guidelines. Subcarinal adenopathy appears slightly decreased in size from prior. Unchanged appearance of AP window node. Additional subcentimeter mediastinal nodes also appear unchanged. 07/21/2018 - BMBX: normocellular bone marrow (40%) with trilineage hematopoiesis, mildly increased megakaryocytes and mild dysmegakaryopoie (more content not included)... Normal [facility] CBC W Auto Differential pane l (Bld)on 07-05-2023 Basophils (Bld) [#/Vol] 0.09 10*3/uL Normal <0.11 [facility] Comment on above: Order Comment: Speci men Type: BLOOD SPECIMEN Ordering Facility: [facility] Address: [address] [place] [address] Performed By: #### 5 7021-8 #### [facility] CLIA [id number] [address] [place] [address] Basophils/100 WBC (Bld) 1.1 % Normal [facility] Comment on above: Order Comment: Speci men Type: BLOOD SPECIMEN Ordering Facility: [facility] Address: [address] [place] [address] Performed By: #### 5 7021-8 #### [facility] CLIA [id number] [address] [place] [id number] Differential cell count method Nom (Bld) Auto Normal [facility] Comment on above: Order Comment: Speci men Type: BLOOD SPECIMEN Ordering Facility: [facility] Address: [address] [place] [address] Performed By: #### 5 7021-8 #### [facility] CLIA [id number] [address] [place] [address] Eosinophils (Bld) [#/Vol] 10*3/uL Normal <0.46 [facility] Comment on above: Order Comment: Speci men Type: BLOOD SPECIMEN Ordering Facility: [facility] Address: [address] [place] [address] Performed By: #### 5 7021-8 #### [facility] CLIA [id number] [address] [place] [address] Eosinophils/100 WBC (Bld) 0.1 % Normal [facility] Comment on above: Order Comment: Speci men Type: BLOOD SPECIMEN Ordering Facility: [facility] Address: [address] [place] [address] Performed By: #### 5 7021-8 #### [facility] CLIA [id number] [address] [place] [address] 14132 Erythrocyte distribution width (RBC) [Ratio] 15.6 % High 11.5-15.0 [facility] Comment on above: Order Comment: Speci men Type: BLOOD SPECIMEN Ordering Facility: [facility] Address: [address] [place] [address] Performed By: #### 5 7021-8 #### [facility] CLIA [id number] [address] [place] [address] 99089 Hematocrit (Bld) [Volume fraction] 42.0 % Normal 36.0-46.0 [facility] Comment on above: Order Comment: Speci men Type: BLOOD SPECIMEN Ordering Facility: [facility] Address: [address] [place] [address] Performed By: #### 5 7021-8 #### [facility] CLIA [id number] [address] [place] [address] 63962 Hemoglobin (Bld) [Mass/Vol] 12.8 g/dL Normal 11.5-15.5 [facility] Comment on above: Order Comment: Speci men Type: BLOOD SPECIMEN Ordering Facility: [facility] Address: [address] [place] [address] 27924 Performed By: #### 5 7021-8 #### [facility] CLIA [id number] [address] [place] [address] 36501 Immature granulocytes (Bld) [#/Vol] 10*3/uL Normal <0.10 [facility] Comment on above: Order Comment: Speci men Type: BLOOD SPECIMEN Ordering Facility: [facility] Address: [address] [place] [address] Performed By: #### 5 7021-8 #### [facility] CLIA [id number] [address] [place] [address] 30543 Immature granulocytes/100 WBC (Bld) 0.1 % Normal [facility] Comment on above: Order Comment: Speci men Type: BLOOD SPECIMEN Ordering Facility: [facility] Address: [address] [place] [address] Performed By: #### 5 7021-8 #### [facility] CLIA [id number] [address] [place] [address] 56574 Lymphocytes (Bld) [#/Vol] 4.27 10*3/uL High 1.00-4.00 [facility] Comment on above: Order Comment: Speci men Type: BLOOD SPECIMEN Ordering Facility: [facility] Address: [address] [place] [address] 26780 Performed By: #### 5 7021-8 #### [facility] CLIA [id number] [address] [place] [address] 02143 Lymphocytes/100 WBC (Bld) 54.2 % Normal [facility] Comment on above: Order Comment: Speci men Type: BLOOD SPECIMEN Ordering Facility: [facility] Address: [address] [place] [address] 51693 Performed By: #### 5 7021-8 #### [facility] CLIA [id number] [address] [place] [address] 38657 MCH (RBC) [Entitic mass] 26.9 pg Normal 26.0-34.0 [facility] Comment on above: Order Comment: Speci men Type: BLOOD SPECIMEN Ordering Facility: [facility] Address: [address] [place] [address] 03201 Performed By: #### 5 7021-8 #### [facility] CLIA [id number] [address] [place] [address] 29601 MCHC (RBC) [Mass/Vol] 30.5 g/dL Normal 30.5-36.0 [facility] Comment on above: Order Comment: Speci men Type: BLOOD SPECIMEN Ordering Facility: [facility] Address: [address] [place] [address] Performed By: #### 5 7021-8 #### [facility] CLIA [id number] [address] [place] [address] 40029 MCV (RBC) [Entitic vol] 88.2 fL Normal 80.0-100.0 [facility] Comment on above: Order Comment: Speci men Type: BLOOD SPECIMEN Ordering Facility: [facility] Address: [address] [place] [address] Performed By: #### 5 7021-8 #### [facility] CLIA [id number] [address] [place] [address] 14597 Monocytes (Bld) [#/Vol] 0.96 10*3/uL High <0.87 [facility] Comment on above: Order Comment: Speci men Type: BLOOD SPECIMEN Ordering Facility: [facility] Address: [address] [place] [address] Performed By: #### 5 7021-8 #### [facility] CLIA [id number] [address] [place] [address] 09908 Monocytes/100 WBC (Bld) 12.2 % Normal [facility] Comment on above: Order Comment: Speci men Type: BLOOD SPECIMEN Ordering Facility: [facility] Address: [address] [place] [address] Performed By: #### 5 7021-8 #### [facility] CLIA [id number] [address] [place] [address] 22583 Neutrophils (Bld) [#/Vol] 2.54 10*3/uL Normal 1.45-7.50 [facility] Comment on above: Order Comment: Speci men Type: BLOOD SPECIMEN Ordering Facility: [facility] Address: [address] [place] [address] Performed By: #### 5 7021-8 #### [facility] CLIA [id number] [address] [place] [address] 22988 Neutrophils/100 WBC (Bld) 32.3 % Normal [facility] Comment on above: Order Comment: Speci men Type: BLOOD SPECIMEN Ordering Facility: [facility] Address: [address] [place] [address] Performed By: #### 5 7021-8 #### [facility] CLIA [id number] [address] [place] [address] 96964 Nucleated RBC (Bld) [#/Vol] 10*3/uL Normal <0.01 [facility] Comment on above: Order Comment: Speci men Type: BLOOD SPECIMEN Ordering Facility: [facility] Address: [address] [place] [address] Performed By: #### 5 7021-8 #### [facility] CLIA [id number] [address] [place] [address] 45435 Nucleated RBC/100 WBC (Bld) [Ratio] 0.0 /100 WBC Normal [facility] Comment on above: Order Comment: Speci men Type: BLOOD SPECIMEN Ordering Facility: [facility] Address: [address] [place] [address] Performed By: #### 5 7021-8 #### [facility] CLIA [id number] [address] [place] [address] 28349 Platelet mean volume (Bld) [Entitic vol] 10.3 fL Normal 9.0-12.7 [facility] Comment on above: Order Comment: Speci men Type: BLOOD SPECIMEN Ordering Facility: [facility] Address: [address] [place] [address] Performed By: #### 5 7021-8 #### [facility] CLIA [id number] [address] [place] [address] 50230 Platelets (Bld) [#/Vol] 247 10*3/uL Normal 150-400 [facility] Comment on above: Order Comment: Speci men Type: BLOOD SPECIMEN Ordering Facility: [facility] Address: [address] [place] [address] 53418 Performed By: #### 5 7021-8 #### [facility] CLIA [id number] [address] [place] [address] RBC (Bld) [#/Vol] 4.76 10*6/uL Normal 3.90-5.20 [facility] Comment on above: Order Comment: Speci men Type: BLOOD SPECIMEN Ordering Facility: [facility] Address: [address] [place] [address] 20029 Performed By: #### 5 7021-8 #### [facility] CLIA [id number] [address] [place] [address] 41212 WBC (Bld) [#/Vol] 7.88 10*3/uL Normal 3.70-11.00 [facility] Comment on above: Order Comment: Speci men Type: BLOOD SPECIMEN Ordering Facility: [facility] Address: [address] [place] [address] 18238 Performed By: #### 5 7021-8 #### [facility] CLIA [id number] [address] [place] [address] 38504 Comprehensive metabolic 2000 panelon 07-05-2023 Albumin [Mass/Vol] 4.2 g/dL Normal 3.9-4.9 [facility] Comment on above: Order Comment: Speci men Type: BLOOD SPECIMEN Ordering Facility: [facility] Address: [address] [place] [address] 72672 Performed By: #### 5 7021-8 #### [facility] CLIA [id number] [address] [place] [address] 22078 ALP [Catalytic activity/Vol] 86 U/L Normal 34-123 [facility] Comment on above: Order Comment: Speci men Type: BLOOD SPECIMEN Ordering Facility: [facility] Address: [address] [place] [address] 81335 Performed By: #### 5 7021-8 #### [facility] CLIA [id number] [address] [place] [address] ALT [Catalytic activity/Vol] 30 U/L Normal 7-38 [facility] Comment on above: Order Comment: Speci men Type: BLOOD SPECIMEN Ordering Facility: [facility] Address: [address] [place] [address] 27749 Performed By: #### 5 7021-8 #### [facility] CLIA [id number] [address] [place] [address] Anion gap [Moles/Vol] 12 mmol/L Normal 9-18 [facility] Comment on above: Order Comment: Speci men Type: BLOOD SPECIMEN Ordering Facility: [facility] Address: [address] [place] [address] Performed By: #### 5 7021-8 #### [facility] CLIA [id number] [address] [place] [address] 13864 AST [Catalytic activity/Vol] 27 U/L Normal 13-35 [facility] Comment on above: Order Comment: Speci men Type: BLOOD SPECIMEN Ordering Facility: [facility] Address: [address] [place], [place] [address] Performed By: #### 5 7021-8 #### [facility] CLIA [id number] [address] [place] [address] 94529 Bilirubin [Mass/Vol] 0.2 mg/dL Normal 0.2-1.3 [facility] Comment on above: Order Comment: Speci men Type: BLOOD SPECIMEN Ordering Facility: [facility] Address: [address] [place] [address] 63988 Performed By: #### 5 7021-8 #### [facility] CLIA [id number] [address] [place] [address] 94238 Calcium [Mass/Vol] 9.7 mg/dL Normal 8.5-10.2 [facility] Comment on above: Order Comment: Speci men Type: BLOOD SPECIMEN Ordering Facility: [facility] Address: [address] [place] [address] Performed By: #### 5 7021-8 #### [facility] CLIA [id number] [address] [place] [address] Chloride [Moles/Vol] 106 mmol/L High 97-105 [facility] Comment on above: Order Comment: Speci men Type: BLOOD SPECIMEN Ordering Facility: [facility] Address: [address] [place] [address] Performed By: #### 5 7021-8 #### [facility] CLIA [id number] [address] [place] [address] 68873 CO2 [Moles/Vol] 25 mmol/L Normal 22-30 [facility] Comment on above: Order Comment: Speci men Type: BLOOD SPECIMEN Ordering Facility: [facility] Address: [address] [place] [address] Performed By: #### 5 7021-8 #### [facility] CLIA [id number] [address] [place] [address] 29921 Creatinine [Mass/Vol] 0.96 mg/dL Normal 0.58-0.96 [facility] Comment on above: Order Comment: Speci men Type: BLOOD SPECIMEN Ordering Facility: [facility] Address: [address] [place] [address] Performed By: #### 5 7021-8 #### [facility] CLIA [id number] [address] [place] [address] 00976 Creatinine and Glomerular filtration rate.predicted panel (S/P/Bld) 65 mL/min/1.73m??? Normal >=60 [facility] Comment on above: Order Comment: Speci men Type: BLOOD SPECIMEN Ordering Facility: [facility] Address: [address] [place] [address] Result Comment: Abigail mated Glomerular Filtration Rate [...] accurately reflect actual GFR. Performed By: #### 5 7021-8 #### [facility] CLIA [id number] [address] [place] [address] 37869 Glucose [Mass/Vol] 103 mg/dL High 74-99 [facility] Comment on above: Order Comment: Rocio shaffer Type: BLOOD SPECIMEN Ordering Facility: [facility] Address: [address] [place] [address] 87297 Result Comment: The [place] [employer] (ADA) provides guidance for cutoff [...] Standards of Medical Care in Diabetes 2016, [place] [employer]. Diabetes Care. 2016.39(Suppl 1). Performed By: #### 5 7021-8 #### [facility] CLIA [id number] [address] [place] [address] 83891 Potassium [Moles/Vol] 4.5 mmol/L Normal 3.7-5.1 [facility] Comment on above: Order Comment: Rocio shaffer Type: BLOOD SPECIMEN Ordering Facility: [facility] Address: [address] [place] [address] Performed By: #### 5 7021-8 #### [facility] CLIA [id number] [address] [place] [address] Protein [Mass/Vol] 6.7 g/dL Normal 6.3-8.0 [facility] Comment on above: Order Comment: Rocio shaffer Type: BLOOD SPECIMEN Ordering Facility: [facility] Address: [address] [place] [address] 75142 Performed By: #### 5 7021-8 #### [facility] CLIA [id number] [address] [place] [address] 47603 Sodium [Moles/Vol] 143 mmol/L Normal 136-144 [facility] Comment on above: Order Comment: Speci men Type: BLOOD SPECIMEN Ordering Facility: [facility] Address: [address] [place] [address] Performed By: #### 5 7021-8 #### [facility] CLIA [id number] [address] [place], [place] [address] Urea nitrogen [Mass/Vol] 12 mg/dL Normal 7-21 [facility] Comment on above: Order Comment: Speci men Type: BLOOD SPECIMEN Ordering Facility: [facility] Address: [address] [place] [address] Performed By: #### 5 7021-8 #### [facility] CLIA [id number] [address] [place], [place] [address] Ferritin SerPl-mCncon 2023 Ferritin [Mass/Vol] 14.3 ng/mL Low 14.7-205.1 [facility] Comment on above: Order Comment: Speci men Type: BLOOD SPECIMEN Ordering Facility: [facility] Address: [address] [place] [address] Performed By: #### 5 7021-8 #### [facility] CLIA [id number] [address] [place], [place] [address] [facility] CLIA [id number] [address] [place] Folate SerPl-mCncon 07-05-19 24 Folate [Mass/Vol] ng/mL Normal >4.7 [facility] Comment on above: Order Comment: Speci men Type: BLOOD SPECIMEN Ordering Facility: [facility] Address: [address] [place] [address] Result Comment: A re sult of > 20 ng/mL is not necessarily indicative of a pathologic or treatable condition: it reflects a limitation of the test methodology. Assay reference range: 4.8 to 24.2 ng/mL. Suitable for detection of folate deficiency. Reference: Folate III (Folate III) [package insert V 1.0 [place]ian]. [facility], [place], [place]: March 2015. Performed By: #### 5 7021-8 #### [facility] CLIA [id number] [address] [place] [address] LAB CLIA [id number] [address] [place] [address] [place] Iron and Iron binding capaci ty panelon 07-05-2023 Iron [Mass/Vol] 100 ug/dL Normal 41-186 [facility] Comment on above: Order Comment: Speci men Type: BLOOD SPECIMEN Ordering Facility: [facility] Address: [address] [place] [address] Performed By: #### 5 7021-8 #### [facility] CLIA [id number] [address] [place] [address] LAB CLIA [id number] [address] [place] [address] [place] Iron binding capacity [Mass/Vol] 434 ug/dL High 232-386 [facility] Comment on above: Order Comment: Speci men Type: BLOOD SPECIMEN Ordering Facility: [facility] Address: [address] [place] [address] Performed By: #### 5 7021-8 #### [facility] CLIA [id number] [address] [place] [address] LAB CLIA [id number] [address] [place] [address] [place] Iron/TIBC [Molar ratio] 23.0 % Normal 15.0-57.0 [facility] Comment on above: Order Comment: Speci men Type: BLOOD SPECIMEN Ordering Facility: [facility] Address: [address] [place] [address] Performed By: #### 5 7021-8 #### [facility] CLIA [id number] [address] [place], [place] [address] [facility] CLIA [id number] [address] [place] [address] [place] Vit B12 SerPl-mCncon 05-2 024 Cobalamin (Vitamin B12) [Mass/Vol] 309 pg/mL Normal 232-1245 [facility] Comment on above: Order Comment: Speci men Type: BLOOD SPECIMEN Ordering Facility: [facility] Address: [address] [place] [address] Performed By: #### 5 7021-8 #### [facility] CLIA [id number] [address] [place], [place] [address] [facility] CLIA [id number] [address] [place] [address] [place] CNOVon 06-24-2023 CNOV Office Visit (UROLAV ) JESSICA FERRERA ([id number]) 1955 F Date Time Provider Department 06/24/23 9:00 AM [facility] LOM[facility]ARDO UROLAV During your visit today, we recorded the following information about you: Monica Wallace Ma 06/24/2023 12:13 PM Signed PVR = 0 ml Via bladder scan. Dallas Lombardo MD 06/24/2023 12:[address] [facility] UROLOGY VISIT Follow Up [facility] [...] Intermittent Intervention/Comfort measure Pain Comments Questionnaire: [facility] Additional Demo Question Answer Is this visit related to an accident, other than Workers' Compensation? No Is this visit related to Workers' Compensation? No Do you need an accordion maker? No Questionnaire: [facility] Promis 10 Adult Short Form V1.0 Global [...] my provider understand my health Agree Questionnaire: [facility] Document/Image Upload Question Answer Photo ID If [...] CYSTO.PANENDO 06/05/2021 CYSTOURETHROSCOPY 06/20/15 Cystoscopy; [facility] ELBOW SURGERY HX Left HYSTERECTOMY HX 1995 left overy and hysterectomy. ROTATOR CUFF REPAIR 2013,2014 Left x 2 SHOULDER SURGERY HX Right TONSILLECTOMY HX TONSILLECTOMY HX Social History Tobacco Use Smoking (more content not included)... Normal [facility] CBC W Auto Differential pane l (Bld)on 03-31-2023 Basophils (Bld) [#/Vol] 0.20 10*3/uL High <0.11 [facility] Comment on above: Order Comment: Speci men Type: BLOOD SPECIMEN Ordering Facility: [facility] Address: [address] [place] [address] Performed By: #### 5 7021-8 #### [facility] CLIA [id number] [address] [place] [address] [facility] CLIA [id number] [address] [place], [place] [address] [place] Basophils/100 WBC (Bld) 3.0 % Normal [facility] Comment on above: Order Comment: Speci men Type: BLOOD SPECIMEN Ordering Facility: [facility] Address: [address] [place] [address] Performed By: #### 5 7021-8 #### [facility] CLIA [id number] [address] [place] [address] LAB CLIA [id number] [address] [place] [address] [place] Differential cell count method Nom (Bld) Manual Normal [facility] Comment on above: Order Comment: Speci men Type: BLOOD SPECIMEN Ordering Facility: [facility] Address: [address] [place] [address] Performed By: #### 5 7021-8 #### [facility] CLIA [id number] [address] [place] [address] LAB CLIA [id number] [address] [place] [address] [place] Eosinophils (Bld) [#/Vol] 0.40 10*3/uL Normal <0.46 [facility] Comment on above: Order Comment: Speci men Type: BLOOD SPECIMEN Ordering Facility: [facility] Address: [address] [place] [address] Performed By: #### 5 7021-8 #### [facility] CLIA [id number] [address] [place] [address] LAB CLIA [id number] [address] [place] [address] [place] Eosinophils/100 WBC (Bld) 6.0 % Normal [facility] Comment on above: Order Comment: Speci men Type: BLOOD SPECIMEN Ordering Facility: [facility] Address: [address] [place] [address] Performed By: #### 5 7021-8 #### [facility] CLIA [id number] [address] [place] [address] LAB CLIA [id number] [address] [place] [address] [place] Erythrocyte distribution width (RBC) [Ratio] 14.0 % Normal 11.5-15.0 [facility] Comment on above: Order Comment: Speci men Type: BLOOD SPECIMEN Ordering Facility: [facility] Address: [address] [place] [address] Performed By: #### 5 7021-8 #### [facility] CLIA [id number] [address] [place] [address] LAB CLIA [id number] [address] [place] [address] [place] Hematocrit (Bld) [Volume fraction] 42.2 % Normal 36.0-46.0 [facility] Comment on above: Order Comment: Speci men Type: BLOOD SPECIMEN Ordering Facility: [facility] Address: [address] [place] [address] Performed By: #### 5 7021-8 #### [facility] CLIA [id number] [address] [place] [address] LAB CLIA [id number] [address] [place] [address] [place] Hemoglobin (Bld) [Mass/Vol] 13.3 g/dL Normal 11.5-15.5 [facility] Comment on above: Order Comment: Speci men Type: BLOOD SPECIMEN Ordering Facility: [facility] Address: [address] [place] [address] Performed By: #### 5 7021-8 #### [facility] CLIA [id number] [address] [place] [address] LAB CLIA [id number] [address] [place] [address] [place] Lymphocytes (Bld) [#/Vol] 3.56 10*3/uL Normal 1.00-4.00 [facility] Comment on above: Order Comment: Speci men Type: BLOOD SPECIMEN Ordering Facility: [facility] Address: [address] [place] [address] Performed By: #### 5 7021-8 #### [facility] CLIA [id number] [address] [place] [address] LAB CLIA [id number] [address] [place] [address] [place] Lymphocytes/100 WBC (Bld) 54.0 % Normal [facility] Comment on above: Order Comment: Speci men Type: BLOOD SPECIMEN Ordering Facility: [facility] Address: [address] [place] [address] Performed By: #### 5 7021-8 #### [facility] CLIA [id number] [address] [place] [address] LAB CLIA [id number] [address] [place] [address] [place] MCH (RBC) [Entitic mass] 27.4 pg Normal 26.0-34.0 [facility] Comment on above: Order Comment: Speci men Type: BLOOD SPECIMEN Ordering Facility: [facility] Address: [address] [place] [address] Performed By: #### 5 7021-8 #### [facility] CLIA [id number] [address] [place] [address] LAB CLIA [id number] [address] [place] [address] [place] MCHC (RBC) [Mass/Vol] 31.5 g/dL Normal 30.5-36.0 [facility] Comment on above: Order Comment: Speci men Type: BLOOD SPECIMEN Ordering Facility: [facility] Address: [address] [place] [address] Performed By: #### 5 7021-8 #### [facility] CLIA [id number] [address] [place] [address] LAB CLIA [id number] [address] [place] [address] [place] MCV (RBC) [Entitic vol] 86.8 fL Normal 80.0-100.0 [facility] Comment on above: Order Comment: Speci men Type: BLOOD SPECIMEN Ordering Facility: [facility] Address: [address] [place] [address] Performed By: #### 5 7021-8 #### [facility] [place] [facility] CLIA [id number] [address] [place] [address] LAB CLIA [id number] [address] [place], [place] [address] [place] Monocytes (Bld) [#/Vol] 0.66 10*3/uL Normal <0.87 [facility] Comment on above: Order Comment: Speci men Type: BLOOD SPECIMEN Ordering Facility: [facility] Address: [address] [place] [address] Performed By: #### 5 7021-8 #### [facility] CLIA [id number] [address] [place] [address] LAB CLIA [id number] [address] [place] [address] [place] Monocytes/100 WBC (Bld) 10.0 % Normal [facility] Comment on above: Order Comment: Speci men Type: BLOOD SPECIMEN Ordering Facility: [facility] Address: [address] [place] [address] Performed By: #### 5 7021-8 #### [facility] CLIA [id number] [address] [place] [address] LAB CLIA [id number] [address] [place] [address] [place] Neutrophils (Bld) [#/Vol] 1.78 10*3/uL Normal 1.45-7.50 [facility] Comment on above: Order Comment: Speci men Type: BLOOD SPECIMEN Ordering Facility: [facility] Address: [address] [place] [address] Performed By: #### 5 7021-8 #### [facility] [place] [facility] CLIA [id number] [address] [place] [address] LAB CLIA [id number] [address] [place] [address] [place] Neutrophils/100 WBC (Bld) 27.0 % Normal [facility] Comment on above: Order Comment: Speci men Type: BLOOD SPECIMEN Ordering Facility: [facility] Address: [address] [place] [address] Performed By: #### 5 7021-8 #### [facility] [place] [facility] CLIA [id number] [address] [place] [address] LAB CLIA [id number] [address] [place] [address] [place] Nucleated RBC (Bld) [#/Vol] 10*3/uL Normal <0.01 [facility] Comment on above: Order Comment: Speci men Type: BLOOD SPECIMEN Ordering Facility: [facility] Address: [address] [place] [address] Performed By: #### 5 7021-8 #### [facility] [place] [facility] CLIA [id number] [address] [place] [address] LAB CLIA [id number] [address] [place] [address] [place] Nucleated RBC/100 WBC (Bld) [Ratio] 0.0 /100 WBC Normal [facility] Comment on above: Order Comment: Speci men Type: BLOOD SPECIMEN Ordering Facility: [facility] Address: [address] [place] [address] Performed By: #### 5 7021-8 #### [facility] [place] [facility] CLIA [id number] [address] [place] [address] LAB CLIA [id number] [address] [id number] [place] Ovalocytes LM Ql (Bld) Few Normal Cl [facility] Comment on above: Order Comment: Speci men Type: BLOOD SPECIMEN Ordering Facility: [facility] Address: [address] [place] [address] Performed By: #### 5 7021-8 #### [facility] [place] [facility] CLIA [id number] [address] [place] [address] LAB CLIA [id number] [facility] [place] [address] [place] Platelet mean volume (Bld) [Entitic vol] 10.5 fL Normal 9.0-12.7 [facility] Comment on above: Order Comment: Speci men Type: BLOOD SPECIMEN Ordering Facility: [facility] Address: [address] [place] [address] Performed By: #### 5 7021-8 #### [facility] [place] [facility] CLIA [id number] [address] [place] [address] LAB CLIA [id number] [address] [place] [address] [place] Platelets (Bld) [#/Vol] 265 10*3/uL Normal 150-400 [facility] Comment on above: Order Comment: Speci men Type: BLOOD SPECIMEN Ordering Facility: [facility] Address: [address] [place] [address] Performed By: #### 5 7021-8 #### [facility] [place] [facility] CLIA [id number] [address] [place] [address] LAB CLIA [id number] [address] [place] [address] [place] Platelets Estimate (Bld) [#/Vol] Adequate Normal [facility] Comment on above: Order Comment: Speci men Type: BLOOD SPECIMEN Ordering Facility: [facility] Address: [address] [place] [address] Performed By: #### 5 7021-8 #### [facility] [place] [facility] CLIA [id number] [address] [place] [address] LAB CLIA [id number] [address] [place] [address] [place] RBC (Bld) [#/Vol] 4.86 10*6/uL Normal 3.90-5.20 [facility] Comment on above: Order Comment: Speci men Type: BLOOD SPECIMEN Ordering Facility: [facility] Address: [address] [place] [address] Performed By: #### 5 7021-8 #### [facility] [place] [facility] CLIA [id number] [address] [place] [address] LAB CLIA [id number] [address] [place] [address] [place] RED CELL MORPH Reviewed: see result s of individual morphologies Normal [facility] Comment on above: Order Comment: Speci men Type: BLOOD SPECIMEN Ordering Facility: [facility] Address: [address] [place] [address] Performed By: #### 5 7021-8 #### [facility] [place] [facility] CLIA [id number] [address] [place] [address] LAB CLIA [id number] [address] [place] [address] [place] WBC (Bld) [#/Vol] 6.59 10*3/uL Normal 3.70-11.00 [facility] Comment on above: Order Comment: Speci men Type: BLOOD SPECIMEN Ordering Facility: [facility] Address: [address] [place] [address] Performed By: #### 5 7021-8 #### [facility] CLIA [id number] [address] [place] [address] LAB CLIA [id number] [address] [place] [address] [place] [address] CHEST W IVCONon 11-01-[address] CHEST W IVCON * * *Final Report* * * DATE OF EXAM: Mar 31 2023 9:25AM [facility] 0539 - CT CHEST W IVCON [...] any questions regarding this interpretation, please call [phone]. If you are unable to reach us at the number above, please feel free to contact [facility] at [phone]. [id number] Normal [facility] Comprehensive metabolic 2000 panelon 03-31-2023 Albumin [Mass/Vol] 4.5 g/dL Normal 3.9-4.9 [facility] Comment on above: Order Comment: Speci men Type: BLOOD SPECIMEN Ordering Facility: [facility] Address: [address] [place] [address] Performed By: #### 5 7021-8 #### [facility] CLIA [id number] [address] [place] [address] ALP [Catalytic activity/Vol] 85 U/L Normal 34-123 [facility] Comment on above: Order Comment: Speci men Type: BLOOD SPECIMEN Ordering Facility: [facility] Address: [address] [place] [address] Performed By: #### 5 7021-8 #### [facility] CLIA [id number] [address] [place] [address] ALT [Catalytic activity/Vol] 20 U/L Normal 7-38 [facility] Comment on above: Order Comment: Speci men Type: BLOOD SPECIMEN Ordering Facility: [facility] Address: [address] [place] [address] Performed By: #### 5 7021-8 #### [facility] CLIA [id number] [address] [place] [address] Anion gap [Moles/Vol] 9 mmol/L Normal 9-18 [facility] Comment on above: Order Comment: Speci men Type: BLOOD SPECIMEN Ordering Facility: [facility] Address: [address] [place] [address] Performed By: #### 5 7021-8 #### [facility] CLIA [id number] [address] [place] [address] AST [Catalytic activity/Vol] 22 U/L Normal 13-35 [facility] Comment on above: Order Comment: Speci men Type: BLOOD SPECIMEN Ordering Facility: [facility] Address: [address] [id number] Performed By: #### 5 7021-8 #### [facility] CLIA [id number] [address] [place] [address] Bilirubin [Mass/Vol] 0.3 mg/dL Normal 0.2-1.3 [facility] Comment on above: Order Comment: Speci men Type: BLOOD SPECIMEN Ordering Facility: [facility] Address: [address] [place], [place] [address] Performed By: #### 5 7021-8 #### [facility] CLIA [id number] [address] [place] [address] Calcium [Mass/Vol] 9.6 mg/dL Normal 8.5-10.2 [facility] Comment on above: Order Comment: Speci men Type: BLOOD SPECIMEN Ordering Facility: [facility] Address: [address] [place] [address] Performed By: #### 5 7021-8 #### [facility] CLIA [id number] [address] [place] [address] Chloride [Moles/Vol] 105 mmol/L Normal 97-105 [facility] Comment on above: Order Comment: Speci men Type: BLOOD SPECIMEN Ordering Facility: [facility] Address: [address] [place] [address] Performed By: #### 5 7021-8 #### [facility] CLIA [id number] [address] [place] [address] CO2 [Moles/Vol] 28 mmol/L Normal 22-30 [facility] Comment on above: Order Comment: Speci men Type: BLOOD SPECIMEN Ordering Facility: [facility] Address: [address] [place] [address] Performed By: #### 5 7021-8 #### [facility] CLIA [id number] [address] [place] [address] Creatinine [Mass/Vol] 0.98 mg/dL High 0.58-0.96 [facility] Comment on above: Order Comment: Rocio shaffer Type: BLOOD SPECIMEN Ordering Facility: [facility] Address: [address] [place] [address] Performed By: #### 5 7021-8 #### [facility] CLIA [id number] [address] [place] [address] Creatinine and Glomerular filtration rate.predicted panel (S/P/Bld) 64 mL/min/1.73m??? Normal >=60 [facility] Comment on above: Order Comment: Rocio shaffer Type: BLOOD SPECIMEN Ordering Facility: [facility] Address: [address] [place], [place] [address] Result Comment: Abigail mated Glomerular Filtration Rate [...] accurately reflect actual GFR. Performed By: #### 5 7021-8 #### [facility] CLIA [id number] [address] [place] [address] Glucose [Mass/Vol] 102 mg/dL High 74-99 [facility] Comment on above: Order Comment: Rocio shaffer Type: BLOOD SPECIMEN Ordering Facility: [facility] Address: [address] [place] [address] Result Comment: The [place] [employer] (ADA) provides guidance for cutoff [...] Standards of Medical Care in Diabetes 2016, [place] [employer]. Diabetes Care. 2016.39(Suppl 1). Performed By: #### 5 7021-8 #### [facility] CLIA [id number] [address] [place] [address] Potassium [Moles/Vol] 4.2 mmol/L Normal 3.7-5.1 [facility] Comment on above: Order Comment: Speci men Type: BLOOD SPECIMEN Ordering Facility: [facility] Address: [address] [place] [address] Performed By: #### 5 7021-8 #### [facility] CLIA [id number] [address] [place] [address] Protein [Mass/Vol] 7.0 g/dL Normal 6.3-8.0 [facility] Comment on above: Order Comment: Speci men Type: BLOOD SPECIMEN Ordering Facility: [facility] Address: [address] [place] [address] Performed By: #### 5 7021-8 #### [facility] CLIA [id number] [address] [place] [address] Sodium [Moles/Vol] 142 mmol/L Normal 136-144 [facility] Comment on above: Order Comment: Speci men Type: BLOOD SPECIMEN Ordering Facility: [facility] Address: [address] [place] [address] Performed By: #### 5 7021-8 #### [facility] CLIA [id number] [address] [place] [address] Urea nitrogen [Mass/Vol] 9 mg/dL Normal 7-21 [facility] Comment on above: Order Comment: Speci men Type: BLOOD SPECIMEN Ordering Facility: [facility] Address: [facility] [place] [address] Performed By: #### 5 7021-8 #### [facility] CLIA [id number] [address] [place] [address] Ferritin [facility] 2022 Ferritin [Mass/Vol] 11.8 ng/mL Low 14.7-205.1 [facility] Comment on above: Order Comment: Speci men Type: BLOOD SPECIMEN Ordering Facility: [facility] Address: [address] [place] [address] Performed By: #### 5 7021-8 #### [facility] CLIA [id number] [address] [place] [address] LAB CLIA [id number] [address] [place] [address] [place] Folate SerPl-mCncon 03-31-20 23 Folate [Mass/Vol] Normal [facility] Comment on above: Order Comment: Speci men Type: BLOOD SPECIMEN Ordering Facility: [facility] Address: [address] [place] [address] Result Comment: Unab le to assay due to interference from hemolysis. Suggest reorder as clinically indicated. Performed By: #### 5 7021-8 #### [facility] CLIA [id number] [address] [place] [address] Iron and Iron binding capaci ty panel 03-31-2023 Iron [Mass/Vol] 63 ug/dL Normal 41-186 [facility] Comment on above: Order Comment: Speci men Type: BLOOD SPECIMEN Ordering Facility: [facility] Address: [address] [place] [address] Performed By: #### 5 7021-8 #### [facility] CLIA [id number] [address] [place] [address] LAB CLIA [id number] [address] [place] [address] [place] Iron binding capacity [Mass/Vol] Normal [facility] Comment on above: Order Comment: Speci men Type: BLOOD SPECIMEN Ordering Facility: [facility] Address: [address] [place] [address] Result Comment: Unab le to calculate due to hemolysis. Performed By: #### 5 7021-8 #### [facility] CLIA [id number] [address] [place] [address] LAB CLIA [id number] [address] [place] [address] [place] Iron/TIBC [Molar ratio] Normal [facility] Comment on above: Order Comment: Speci men Type: BLOOD SPECIMEN Ordering Facility: [facility] Address: [address] [place] [address] Result Comment: Unab le to calculate due to hemolysis. Performed By: #### 5 7021-8 #### [facility] CLIA [id number] [address] [place] [address] LAB CLIA [id number] [address] [place] [address] [place] Vit B12 [facility] 11-01-2 023 Cobalamin (Vitamin B12) [Mass/Vol] 327 pg/mL Normal 232-1245 [facility] Comment on above: Order Comment: Speci men Type: BLOOD SPECIMEN Ordering Facility: [facility] Address: [address] [place] [address] Performed By: #### 5 7021-8 #### [facility] CLIA [id number] [address] [place] [address] LAB CLIA [id number] [address] [place] [address] [place] MM screening mammo BI w/CADo n 02-22-2023 MM screening mammo BI w/CAD [facility] [address] [place] [address] Mammography Report Signed Patient: Jessica Ferrera MR#: [id number] 7 : 1955 Acct:[id number] Age/Sex: 67 / F ADM Date: 02/22/23 Loc: [place] Room: Type: [facility] Attending Dr: Referral Self Copies to: Ricardo [...] Juvenal Hanley M.D.02/22/2023 10:30 AM Dictation Location: [facility] Transcribed By: [facility] 02/22/23 1030 Dictated By: Juvenal Hanley DO 02/22/23 1029 Signed By: 02/22/23 1030 [facility] Basic Metabolic Profon 01-12 Anion gap [Moles/Vol] 10 mmol/L Normal 9-17 [facility] Comment on above: Performed By: #### C DP, BMP ####[facility] [id number] [facility] [place] [address] Lab Director: Jelani Liu MD BUN/CRE Ratio 14 Normal 9-20 [facility] Comment on above: Performed By: #### C DP, BMP ####[facility] [address] [place] [address] Lab Director: Jelani Liu MD Calcium [Mass/Vol] 8.5 mg/dL Low 8.6-10.4 [facility] Comment on above: Performed By: #### C DP, BMP ####[facility] [address] [place] [address] Lab Director: Jelani Liu MD Chloride [Moles/Vol] 108 mmol/L High 98-107 [facility] Comment on above: Performed By: #### C DP, BMP ####[facility] [address] [place] [address] Lab Director: Jelani Liu MD CO2 [Moles/Vol] 23 mmol/L Normal 20-31 [facility] Comment on above: Performed By: #### C DP, BMP ####[facility] [address] [facility] [place] [address] Lab Director: Jelani Liu MD Creatinine [Mass/Vol] 0.8 mg/dL Normal 0.5-0.9 [facility] Comment on above: Performed By: #### C DP, BMP ####[facility] [address] [facility] [place] [address] Lab Director: Jelani Liu MD GFR/1.73 sq M.predicted among non-blacks MDRD (S/P/Bld) [Vol rate/Area] mL/min/{1.73_m2} Normal >60 [facility] Comment on above: Result Comment: These [...] secretion. Performed By: #### C DP, BMP ####[facility] [address] [facility] [place] [address] Lab Director: Jelani Liu MD Glucose [Mass/Vol] 156 mg/dL High 70-99 [facility] Comment on above: Performed By: #### C DP, BMP ####[facility] [address] [place] [address] Lab Director: Jelani Liu MD Potassium [Moles/Vol] 4.5 mmol/L Normal 3.7-5.3 [facility] Comment on above: Performed By: #### C DP, BMP ####[facility] [address] [place] [address] Lab Director: Jelani Liu MD Sodium [Moles/Vol] 141 mmol/L Normal 135-144 [facility] Comment on above: Performed By: #### C DP, BMP ####[facility] [address] [place] [address] Lab Director: Jelani Liu MD Urea nitrogen [Mass/Vol] 11 mg/dL Normal 8-23 [facility] Comment on above: Performed By: #### C DP, BMP ####[facility] [address] [place] [address] Lab Director: Jelani Liu MD CBC with Diffon 01-12-2023 Abs. Basophil <0.03 Normal 0.00-0.20 [facility] Comment on above: Performed By: #### C DP, BMP ####[facility] [address] [place], [place] [address])[phone] Director: Jelani Liu MD Abs. Eosinophil <0.03 Normal 0.00-0.44 [facility] Comment on above: Performed By: #### C DP, BMP ####[facility] [address] [place] [address].[place], [place] [address])[phone] Director: Jelani Liu MD Abs.Imm.Granulocyte 0.05 k/uL Normal 0.00-0.30 [facility] Comment on above: Performed By: #### C DP, BMP ####[facility] [address] [facility] [place] [address] Lab Director: Jelani Liu MD Abs.Neutrophil (Seg) 10.35 k/uL High 1.50-8.10 [facility] Comment on above: Performed By: #### C DP, BMP ####[facility] [address] [place] [address] Lab Director: Jelani Liu MD Basophils/100 WBC (Bld) 0 % Normal 0-2 [facility] Comment on above: Performed By: #### C DP, BMP ####[facility] [address] [place] [address] Lab Director: Jelani Liu MD Eosinophils/100 WBC (Bld) 0 % Low 1-4 [facility] Comment on above: Performed By: #### C DP, BMP ####[facility] [address] [place] [address] Lab Director: Jelani Liu MD Erythrocyte distribution width (RBC) [Ratio] 12.9 % Normal 11.8-14.4 [facility] Comment on above: Performed By: #### C DP, BMP ####[facility] [address] [place] [address] Lab Director: Jelani Liu MD Hematocrit (Bld) [Volume fraction] 37.4 % Normal 36.3-47.1 [facility] Comment on above: Performed By: #### C DP, BMP ####[facility] [address] [place] [address].[place] [address] Lab Director: Jelani Liu MD Hemoglobin (Bld) [Mass/Vol] 11.8 g/dL Low 11.9-15.1 [facility] Comment on above: Performed By: #### C DP, BMP ####[facility] [address] [facility] [place] [address] Lab Director: Jelani Liu MD Immature granulocytes/100 WBC (Bld) 0 % Normal 0 [facility] Comment on above: Performed By: #### C DP, BMP ####[facility] [address] [place] [address].[place] [address] Lab Director: Jelani Liu MD Lymphocytes (Bld) [#/Vol] 1.70 10*3/uL Normal 1.10-3.70 [facility] Comment on above: Performed By: #### C DP, BMP ####[facility] [address] [place] [address] Lab Director: Jelani Liu MD Lymphocytes/100 WBC (Bld) 13 % Low 24-43 [facility] Comment on above: Performed By: #### C DP, BMP ####[facility] [address] [place] [address] Lab Director: Jelani Liu MD MCH (RBC) [Entitic mass] 29.7 pg Normal 25.2-33.5 [facility] Comment on above: Performed By: #### C DP, BMP ####[facility] [address] [place] [address] Lab Director: Jelani Liu MD MCHC (RBC) [Mass/Vol] 31.6 g/dL Normal 28.4-34.8 [facility] Comment on above: Performed By: #### C DP, BMP ####[facility] [address] [place] [address] Lab Director: Jelani Liu MD MCV (RBC) [Entitic vol] 94.2 fL Normal 82.6-102.9 [facility] Comment on above: Performed By: #### C DP, BMP ####[facility] [address] [facility] [place] [address] Lab Director: Jelani Liu MD Monocytes (Bld) [#/Vol] 0.61 10*3/uL Normal 0.10-1.20 [facility] Comment on above: Performed By: #### C DP, BMP ####[facility] [address] [place] [address].[place] [address] Lab Director: Jelani Liu MD Monocytes/100 WBC (Bld) 5 % Normal 3-12 [facility] Comment on above: Performed By: #### C DP, BMP ####[facility] [address] [place] [address].[place] [address] Lab Director: Jelani Liu MD Neutrophil (Seg) 82 % High 36-65 [facility] Comment on above: Performed By: #### C DP, BMP ####[facility] [address] [place] [address].[place] [address] Lab Director: Jelani Liu MD NRBC Automated 0.0 per 100 WBC Normal 0.0 [facility] Comment on above: Performed By: #### C DP, BMP ####[facility] [address] [place] [address].[place] [address] Lab Director: Jelani Liu MD Platelet mean volume (Bld) [Entitic vol] 10.1 fL Normal 8.1-13.5 [facility] Comment on above: Performed By: #### C DP, BMP ####[facility] [address] [place] [address].[place] [address] Lab Director: Jelani Liu MD Platelets (Bld) [#/Vol] 221 10*3/uL Normal 138-453 [facility] Comment on above: Performed By: #### C DP, BMP ####[facility] [address] [place] [phone] Director: Jelani Liu MD RBC (Bld) [#/Vol] 3.97 10*6/uL Normal 3.95-5.11 [facility] Comment on above: Performed By: #### C DP, BMP ####[facility] [address] [facility] [place] [id number] Director: Jelani Liu MD WBC (Bld) [#/Vol] 12.7 10*3/uL High 3.5-11.3 [facility] Comment on above: Performed By: #### C DP, BMP ####[facility] [id number] [facility].[place], [place] [id number] Director: Jelani Liu MD FLUORO FOR SURGICAL PROCEDUR ESon 01-11-2023 FLUORO FOR SURGICAL PROCEDURES Radiology exam is complete. No Radiologist dictation. Please follow up with ordering provider. Final result Normal [facility] Cult,Urineon 12-24-2022 Cult,Urine Specimen Description .CLEAN CATCH URINE Culture ESCHERICHIA COLI >100,000 CFU/ML This organism is an Extended Spectrum Beta Lactamase (ESBL) Revenue Stamp Cutter and resistance to therapy with Penicillins, Cephalosporins [...] Amikacin <=2 SUSCEPTIBLE Meropenem <=0.25 SUSCEPTIBLE Susceptible [facility] Comment on above: Performed By: #### U RC ####[facility] [address] [place] [address] Lab Director: Jelani Liu [address] [address] Lab Director: Terrance Luevano MD MRSA, DNA, Nasalon MRSA, DNA, Nasal Negative Normal NEG [facility] Comment on above: Result Comment: NEGA TIVE: MRSA DNA not detected by nucleic acid amplification. Results should be used as an adjunct to nosocomial control efforts to identify patients needing enhanced precautions. The test is not intended to identify patients with staphylococcal infections. Results should not be used to guide or monitor treatment for MRSA infections. Performed By: #### M RSA ####[facility] [address] [place] [address] Lab Director: Jelani Liu [address] [address] Lab Director: Terrance Luevano MD APTTon 12-21-2022 aPTT Coag (Bld) [Time] 27.5 s Normal 23.9-33.8 [facility] Comment on above: Result Comment: IV Heparin Therapy Range: 62.0-94.0 Performed By: #### B MP, PT, PTT, CDP #### [facility] Lab [address] [place] [address] Pants Busheler: Jelani Liu MD Basic Metabolic Profon 12-21 Anion gap [Moles/Vol] 11 mmol/L Normal 9-17 [facility] Comment on above: Performed By: #### B MP, PT, PTT, CDP #### [facility] Lab [address] [place] [address] Pants Busheler: Jelani Liu MD BUN/CRE Ratio 12 Normal 9-20 [facility] Comment on above: Performed By: #### B MP, PT, PTT, CDP #### [facility] Lab [address] [place] [address] Pants Busheler: Jelani Liu MD Calcium [Mass/Vol] 9.1 mg/dL Normal 8.6-10.4 [facility] Comment on above: Performed By: #### B MP, PT, PTT, CDP #### [facility] Lab [address] [place] [address] Pants Busheler: Jelani Liu MD Chloride [Moles/Vol] 104 mmol/L Normal 98-107 [facility] Comment on above: Performed By: #### B MP, PT, PTT, CDP #### [facility] Lab [facility] [place] [address] Pants Busheler: Jelani Liu MD CO2 [Moles/Vol] 24 mmol/L Normal 20-31 [facility] Comment on above: Performed By: #### B MP, PT, PTT, CDP #### [facility] Lab [address] [place] [address] Pants Busheler: Jelani Liu MD Creatinine [Mass/Vol] 0.9 mg/dL Normal 0.5-0.9 [facility] Comment on above: Performed By: #### B MP, PT, PTT, CDP #### [facility] Lab [facility] [facility] [place] [address] Pants Busheler: Jelani Liu MD GFR/1.73 sq M.predicted among non-blacks MDRD (S/P/Bld) [Vol rate/Area] mL/min/{1.73_m2} Normal >60 [facility] Comment on above: Result Comment: These [...] #### B MP, PT, PTT, CDP #### [facility] Lab [address] [facility] [place] [address] Pants Busheler: Jelani Liu MD Glucose [Mass/Vol] 93 mg/dL Normal 70-99 [facility] Comment on above: Performed By: #### B MP, PT, PTT, CDP #### [facility] Lab [facility] [place] [address] Pants Busheler: Jelani Liu MD Potassium [Moles/Vol] 4.1 mmol/L Normal 3.7-5.3 [facility] Comment on above: Performed By: #### B MP, PT, PTT, CDP #### [facility] Lab [facility] [place] [address] Pants Busheler: Jelani Liu MD Sodium [Moles/Vol] 139 mmol/L Normal 135-144 [facility] Comment on above: Performed By: #### B MP, PT, PTT, CDP #### [facility] Lab [address] [place] [address] Pants Busheler: Jelani Liu MD Urea nitrogen [Mass/Vol] 11 mg/dL Normal 8-23 [facility] Comment on above: Performed By: #### B MP, PT, PTT, CDP #### [facility] Lab [address] [place] [address] Pants Busheler: Jelani Liu MD CBC with Diffon 12-21-2022 Abs. Basophil 0.09 k/uL Normal 0.00-0.20 [facility] Comment on above: Performed By: #### B MP, PT, PTT, CDP #### [facility] Lab [address] [facility] [place] [address] Pants Busheler: Jelani Liu MD Abs. Eosinophil <0.03 Normal 0.00-0.44 [facility] Comment on above: Performed By: #### B MP, PT, PTT, CDP #### [facility] Lab [address] [place] [address]. [place] [address] Pants Busheler: Jelani Liu MD Abs.Imm.Granulocyte 0.02 k/uL Normal 0.00-0.30 [facility] Comment on above: Performed By: #### B MP, PT, PTT, CDP #### [facility] Lab [address] [place] [address]. [place] [address] Pants Busheler: Jelani Liu MD Abs.Neutrophil (Seg) 3.03 k/uL Normal 1.50-8.10 [facility] Comment on above: Performed By: #### B MP, PT, PTT, CDP #### [facility] [address] [place] [address]. [place] [address] Pants Busheler: Jelani Liu MD Basophils/100 WBC (Bld) 1 % Normal 0-2 [facility] Comment on above: Performed By: #### B MP, PT, PTT, CDP #### [facility] [address] [place] [address]. [place] [address] Pants Busheler: Jelani Liu MD Eosinophils/100 WBC (Bld) 0 % Low 1-4 [facility] Comment on above: Performed By: #### B MP, PT, PTT, CDP #### [facility] [address] [place] [address]. [place] [address] Pants Busheler: Jelani Liu MD Erythrocyte distribution width (RBC) [Ratio] 13.1 % Normal 11.8-14.4 [facility] Comment on above: Performed By: #### B MP, PT, PTT, CDP #### [facility] Lab [facility] [place] [address] Pants Busheler: Jelani Liu MD Hematocrit (Bld) [Volume fraction] 45.2 % Normal 36.3-47.1 [facility] Comment on above: Performed By: #### B MP, PT, PTT, CDP #### [facility] Lab [address] [place], [place] [address] [address] Pants Busheler: Jelani Liu MD Hemoglobin (Bld) [Mass/Vol] 14.5 g/dL Normal 11.9-15.1 [facility] Comment on above: Performed By: #### B MP, PT, PTT, CDP #### [facility] [address] [place] [address] Pants Busheler: Jelani Liu MD Immature granulocytes/100 WBC (Bld) 0 % Normal 0 [facility] Comment on above: Performed By: #### B MP, PT, PTT, CDP #### [facility] [address] [place] [address] Pants Busheler: Jelani Liu MD Lymphocytes (Bld) [#/Vol] 3.93 10*3/uL High 1.10-3.70 [facility] Comment on above: Performed By: #### B MP, PT, PTT, CDP #### [facility] [address] [place] [address] Pants Busheler: Jelani Liu MD Lymphocytes/100 WBC (Bld) 50 % High 24-43 [facility] Comment on above: Performed By: #### B MP, PT, PTT, CDP #### [facility] [address] [place] [address] Pants Busheler: Jelani Liu MD MCH (RBC) [Entitic mass] 30.1 pg Normal 25.2-33.5 [facility] Comment on above: Performed By: #### B MP, PT, PTT, CDP #### [facility] [place] [address] Pants Busheler: Jelani Liu MD MCHC (RBC) [Mass/Vol] 32.1 g/dL Normal 28.4-34.8 [facility] Comment on above: Performed By: #### B MP, PT, PTT, CDP #### [facility] [address] [place] [address] Pants Busheler: Jelani Liu MD MCV (RBC) [Entitic vol] 93.8 fL Normal 82.6-102.9 [facility] Comment on above: Performed By: #### B MP, PT, PTT, CDP #### [facility] Lab [address] [place] [address] Pants Busheler: Jelani Liu MD Monocytes (Bld) [#/Vol] 0.75 10*3/uL Normal 0.10-1.20 [facility] Comment on above: Performed By: #### B MP, PT, PTT, CDP #### [facility] [address] [place] [address] Pants Busheler: Jelani Liu MD Monocytes/100 WBC (Bld) 10 % Normal 3-12 [facility] Comment on above: Performed By: #### B MP, PT, PTT, CDP #### [facility] [address] [place] [address] Pants Busheler: Jelani Liu MD Neutrophil (Seg) 39 % Normal 36-65 [facility] Comment on above: Performed By: #### B MP, PT, PTT, CDP #### [facility] Lab [address] [place] [address] Pants Busheler: Jelani Liu MD NRBC Automated 0.0 per 100 WBC Normal 0.0 [facility] Comment on above: Performed By: #### B MP, PT, PTT, CDP #### [facility] Lab [address] [place] [address] Pants Busheler: Jelani Liu MD Platelet mean volume (Bld) [Entitic vol] 10.0 fL Normal 8.1-13.5 [facility] Comment on above: Performed By: #### B MP, PT, PTT, CDP #### [facility] Lab [facility] [facility] [place] [address] Pants Busheler: Jelani Liu MD Platelets (Bld) [#/Vol] 257 10*3/uL Normal 138-453 [facility] Comment on above: Performed By: #### B MP, PT, PTT, CDP #### [facility] Lab [facility] [place] [address] Pants Busheler: Jelani Liu MD RBC (Bld) [#/Vol] 4.82 10*6/uL Normal 3.95-5.11 [facility] Comment on above: Performed By: #### B MP, PT, PTT, CDP #### [facility] Lab [facility] [facility] [place] [address] Pants Busheler: Jelani Liu MD WBC (Bld) [#/Vol] 7.8 10*3/uL Normal 3.5-11.3 [facility] Comment on above: Performed By: #### B MP, PT, PTT, CDP #### [facility] [address] [facility] [place] [address] Pants Busheler: Jelani Liu MD MRSA, DNA, Nasalon 3 Specimen Description .NASAL SWAB Normal [facility] Comment on above: Performed By: #### M RSANO ####[facility] [address] [place] [address] Lab Director: JOAQUÍN [facility] [address] [place] [address] Lab Director: Terrance Luevano MD PTon 12-21-2022 INR Coag (PPP) [Relative time] 0.9 {INR} Normal [facility] Comment on above: Result Comment: Therapeutic Range: Moderate Anticoagulant Intensity: INR = 2.0-3.0 High Anticoagulant Intensity: INR = 2.5-3.5 Performed By: #### B MP, PT, PTT, CDP #### [facility] Lab [address] [place] [address] Pants Busheler: Jelani Liu MD PT Coag (PPP) [Time] 12.1 s Normal 11.5-14.2 [facility] Comment on above: Performed By: #### B MP, PT, PTT, CDP #### [facility] Lab [address] [place] [address] Pants Busheler: Jelani Liu MD Urinalysis, Routineon 2022 Bilirubin, SemiQt,Ur Negative Normal NEG [facility] Comment on above: Performed By: #### U A ####[facility] [address] [place] [address] Lab Director: Jelani Liu MD Blood, Urine Negative Normal NEG [facility] Comment on above: Performed By: #### U A ####[facility] [address] [place] [address] Lab Director: Jelani Liu MD Clarity (U) Clear Normal CLEAR [facility] Comment on above: Performed By: #### U A ####[facility] [address] [place] [address] Lab Director: Jelani Liu MD Color (U) Yellow Normal YEL [facility] Comment on above: Performed By: #### U A ####[facility] [address] [place] [address] Lab Director: Jelani Liu MD Comment Microscopic exam not performed based on chemical results unless requested in Normal [facility] Comment on above: Result Comment: orig inal order. Performed By: #### U A ####[facility] [address] [place] [address] Lab Director: Jelani Liu MD Glucose Ql (U) Negative Normal NEG [facility] Comment on above: Performed By: #### U A ####[facility] [address] [place] [address] Lab Director: Jelani Liu MD Ketones Ql (U) Negative Normal NEG [facility] Comment on above: Performed By: #### U A ####[facility] [address] [place] [address] Lab Director: Jelani Liu MD Leukocyte esterase Test strip Ql (U) Negative Normal NEG [facility] Comment on above: Performed By: #### U A ####[facility] [address] [place] [address] Lab Director: Jelani Liu MD Nitrite,Ur Negative Normal NEG [facility] Comment on above: Performed By: #### U A ####[facility] [address] [place] [address] Lab Director: Jelani Liu MD PH,Ur 5.5 Normal 5.0-8.0 [facility] Comment on above: Performed By: #### U A ####[facility] [address] [facility] [place] [address] lab Director: Jelani Liu MD Protein Ql (U) Negative Normal NEG [facility] Comment on above: Performed By: #### U A ####[facility] [address] [facility] [place] [address] lab Director: Jelani Liu MD Spec. Raymond,Ur 1.015 Normal 1.005-1.030 [facility] Comment on above: Performed By: #### U A ####[facility] [address] [place] [address] lab Director: Jelani Liu MD Urobilinogen,Ur Normal Normal 0.0-1.0 [facility] Comment on above: Performed By: #### U A ####[facility] [address] [place] [address] lab Director: Jelani Liu MD Consent for Treatmenton 09-28 Consent for Treatment [id number] .00CD:127 Normal [facility] Discharge Instructionson Discharge Instructions [id number] 1.00CD:127 Normal [facility] ED Clinical Summaryon 2022 ED Clinical Summary [address] [address] ED Clinical Summary Person Information Name: JESSICA FERRERA Mk/[facility] Age: 67 Years : 1955 Sex: Female Language: Bolivian PCP: Ricardo Hooper MD Marital Status: Visit [...] 16:00:24 10/10/2022 16:00:24 10/10/2022 16:00:24 ADDRESS: [address] [place] [address] [address] [phone] PHYS DOC NOTES: MEDICAL INFORMATION: Prescriptions Given: [...] Follow up: With: Address: When: Ricardo Hooper [address] [place] [address], [address] [place] [id number] [facility] (1) In 3 days 10/13/2022 Comments: Follow-up with your primary care provider in 3 to 5 days. If symptoms worsen, do not improve, or new symptoms arise please report back to emergency department for further evaluation. DIAGNOSIS: Left serous otitis media Normal [facility] ED Note-Physicianon 10-11-19 ED Note-Physician Basic Information Time Seen: Bo SAWANT, Thony Grijalva. 10/10/2022 15:28 Chief Complaint Pt had sinus infection beginning of September was placed on abx and felt better. Abx done on Wednesday, Wednesday started wtih L ear pain. Told to take antihistamines OTC. Saw [facility] and told possible shingles on top of the antihistamines. States still having L History of Present Illness 67-year-old fe with a chief complaint of male reports to the emergency department left ear pain. He reports that she just finished up antibiotic, but on Wednesday, she started with left ear pain. Reports that she was told to take pdjb-bnu-vwkidvc antihistamine and other medications, to help with her symptoms, but this has not been helping. She also went to [facility] emergency department, and was told that she [...] and Complexity of Problems Differential Diagnosis: [] [facility] Data External documents reviewed: [] My [...] okay, she has a recent trip to [facility]. On physical exam the patient, she does have what appears to be left serous otitis media. There is no signs of infection with this, but the patient is very concerned because of her trip to [facility]. No other signs are positive [...] Hooper In 3 days 10/13/2022 EDT [address] [facility] [place] [address] [place] [address]- ([phone] (more content not included)... Normal [facility] Comment on above: Result Comment: Elec tronically [...] weeks. Home care treatment may include: ? Ydqo-pox-mpwziii pain relievers. ? A warm, moist cloth placed over the ear. Severe cases may require a procedure to insert tubes in the ears (tympanostomy tubes) to drain the fluid. Follow these instructions at home: ? Take ncqg-ziz-asvepvr and prescription medicines only as told by [...] Reviewed: 09/11/2021 Elsevier Patient Education ? 2022 [employer] Normal [facility] ED Patient Summaryon 023 ED Patient Summary [address] [address] Patient Discharge Instructions Person Information Name: JESSICA FERRERA Age: 67 Years Arrival Date: 10/10/2022 14:53:25 Discharge Diagnosis: Left serous otitis media Primary Care Physician: Ricardo Hooper MD Provider Information Primary Provider: Rocael Wayne DO Advanced Brass Chaser:None The exam and treatment you received in the Emergency Department were for an urgent problem and are not intended as complete care. It is important that you follow up with a doctor, nurse practitioner, or physician?s senior assistant manager for ongoing care. If your symptoms become worse or you do not improve as expected and you are unable to reach your usual health care provider, you should return to the Emergency Department. We are available 24 hours a day. JESSICA FERRERA has been given the following list of patient education materials, prescriptions and follow-up instructions: Follow-up Instructions: With: Address: When: Ricardo Sandie [address] [place] [address], [facility] [place] [address] Business (1) In 3 days [...] opioids can be used to help relieve nqavncsg-rt-gmgchq pain and are often prescribed following a [...] (more content not included)... Normal [facility] CBC W Auto Differential pane l (Bld)on 10-07-2022 Anisocytosis Ql (Bld) Present Normal [facility] Comment on above: Order Comment: Speci men Type: BLOOD SPECIMEN Ordering Facility: [facility] Address: [address] [place] [address] Performed By: #### 5 7021-8 #### [facility] CLIA [id number] [address] [place] [address] LAB CLIA [id number] [address] [place] [address] [place] Basophils (Bld) [#/Vol] 0.09 10*3/uL Normal <0.11 [facility] Comment on above: Order Comment: Speci men Type: BLOOD SPECIMEN Ordering Facility: [facility] Address: [address] [place] [address] Performed By: #### 5 7021-8 #### [facility] CLIA [id number] [address] [place] [address] LAB CLIA [id number] [address] [place] [address] [place] Basophils/100 WBC (Bld) 0.7 % Normal [facility] Comment on above: Order Comment: Speci men Type: BLOOD SPECIMEN Ordering Facility: [facility] Address: [address] [place] [address] Performed By: #### 5 7021-8 #### [facility] CLIA [id number] [address] [place] [address] LAB CLIA [id number] [address] [place] [address] [place] Differential cell count method Nom (Bld) Auto Normal [facility] Comment on above: Order Comment: Speci men Type: BLOOD SPECIMEN Ordering Facility: [facility] Address: [address] [place] [address] Performed By: #### 5 7021-8 #### [facility] CLIA [id number] [address] [place] [address] LAB CLIA [id number] [address] [place] [address] [place] Eosinophils (Bld) [#/Vol] 10*3/uL Normal <0.46 [facility] Comment on above: Order Comment: Speci men Type: BLOOD SPECIMEN Ordering Facility: [facility] Address: [address] [place] [address] Performed By: #### 5 7021-8 #### [facility] CLIA [id number] [address] [place] [address] LAB CLIA [id number] [address] [place] [address] [place] Eosinophils/100 WBC (Bld) 0.1 % Normal [facility] Comment on above: Order Comment: Speci men Type: BLOOD SPECIMEN Ordering Facility: [facility] Address: [address] [place], [place] [address] Performed By: #### 5 7021-8 #### [facility] CLIA [id number] [address] [place] [address] LAB CLIA [id number] [address] [place] [address] [place] Erythrocyte distribution width (RBC) [Ratio] 15.3 % High 11.5-15.0 [facility] Comment on above: Order Comment: Speci men Type: BLOOD SPECIMEN Ordering Facility: [facility] Address: [address] [place], [place] [address] Performed By: #### 5 7021-8 #### [facility] CLIA [id number] [address] [place] [address] LAB CLIA [id number] [address] [place] [address] [place] Hematocrit (Bld) [Volume fraction] 45.1 % Normal 36.0-46.0 [facility] Comment on above: Order Comment: Speci men Type: BLOOD SPECIMEN Ordering Facility: [facility] Address: [address] [place] [address] Performed By: #### 5 7021-8 #### [facility] CLIA [id number] [address] [place] [address] LAB CLIA [id number] [address] [place] [address] [place] Hemoglobin (Bld) [Mass/Vol] 14.4 g/dL Normal 11.5-15.5 [facility] Comment on above: Order Comment: Speci men Type: BLOOD SPECIMEN Ordering Facility: [facility] Address: [address] Performed By: #### 5 7021-8 #### [facility] CLIA [id number] [address] [place] [address] LAB CLIA [id number] [address] [place] [address] [place] Immature granulocytes (Bld) [#/Vol] 0.09 10*3/uL Normal <0.10 [facility] Comment on above: Order Comment: Speci men Type: BLOOD SPECIMEN Ordering Facility: [facility] Address: [address] [place] [address] Performed By: #### 5 7021-8 #### [facility] CLIA [id number] [address] [place] [address] LAB CLIA [id number] [facility] [place] [address] [place] Immature granulocytes/100 WBC (Bld) 0.7 % Normal [facility] Comment on above: Order Comment: Speci men Type: BLOOD SPECIMEN Ordering Facility: [facility] Address: [address] [place] [address] Performed By: #### 5 7021-8 #### [facility] CLIA [id number] [address] [place] [address] LAB CLIA [id number] [address] [place] [address] [place] Lymphocytes (Bld) [#/Vol] 5.07 10*3/uL High 1.00-4.00 [facility] Comment on above: Order Comment: Speci men Type: BLOOD SPECIMEN Ordering Facility: [facility] Address: [address] [place] [address] Performed By: #### 5 7021-8 #### [facility] CLIA [id number] [address] [place] [address] LAB CLIA [id number] [address] [place] [address] [place] Lymphocytes/100 WBC (Bld) 39.0 % Normal [facility] Comment on above: Order Comment: Speci men Type: BLOOD SPECIMEN Ordering Facility: [facility] Address: [address] [place] [address] Performed By: #### 5 7021-8 #### [facility] CLIA [id number] [address] [place] [address] LAB CLIA [id number] [address] [place] [address] [place] MCH (RBC) [Entitic mass] 28.6 pg Normal 26.0-34.0 [facility] Comment on above: Order Comment: Speci men Type: BLOOD SPECIMEN Ordering Facility: [facility] Address: [address] [place] [address] Performed By: #### 5 7021-8 #### [facility] CLIA [id number] [address] [place] [address] LAB CLIA [id number] [address] [place] [address] [place] MCHC (RBC) [Mass/Vol] 31.9 g/dL Normal 30.5-36.0 [facility] Comment on above: Order Comment: Speci men Type: BLOOD SPECIMEN Ordering Facility: [facility] Address: [address] [place] [address] Performed By: #### 5 7021-8 #### [facility] CLIA [id number] [address] [place] [address] LAB CLIA [id number] [address] [place] [address] [place] MCV (RBC) [Entitic vol] 89.5 fL Normal 80.0-100.0 [facility] Comment on above: Order Comment: Speci men Type: BLOOD SPECIMEN Ordering Facility: [facility] Address: [address] [place] [address] Performed By: #### 5 7021-8 #### [facility] CLIA [id number] [address] [place] [address] LAB CLIA [id number] [address] [place] [address] [place] Monocytes (Bld) [#/Vol] 1.10 10*3/uL High <0.87 [facility] Comment on above: Order Comment: Speci men Type: BLOOD SPECIMEN Ordering Facility: [facility] Address: [address] [place] [address] Performed By: #### 5 7021-8 #### [facility] CLIA [id number] [address] [place] [address] LAB CLIA [id number] [address] [place] [address] [place] Monocytes/100 WBC (Bld) 8.5 % Normal [facility] Comment on above: Order Comment: Speci men Type: BLOOD SPECIMEN Ordering Facility: [facility] Address: [address] [place] [address] Performed By: #### 5 7021-8 #### [facility] CLIA [id number] [address] [place] [address] LAB CLIA [id number] [address] [place] [address] [place] Neutrophils (Bld) [#/Vol] 6.65 10*3/uL Normal 1.45-7.50 [facility] Comment on above: Order Comment: Speci men Type: BLOOD SPECIMEN Ordering Facility: [facility] Address: [address] [place] [address] Performed By: #### 5 7021-8 #### [facility] CLIA [id number] [address] [place] [address] LAB CLIA [id number] [address] [place] [address] [place] Neutrophils/100 WBC (Bld) 51.0 % Normal [facility] Comment on above: Order Comment: Speci men Type: BLOOD SPECIMEN Ordering Facility: [facility] Address: [address] [place] [address] Performed By: #### 5 7021-8 #### [facility] CLIA [id number] [address] [place] [address] LAB CLIA [id number] [address] [place] [address] [place] Nucleated RBC (Bld) [#/Vol] 10*3/uL Normal <0.01 [facility] Comment on above: Order Comment: Speci men Type: BLOOD SPECIMEN Ordering Facility: [facility] Address: [address] [place] [address] Performed By: #### 5 7021-8 #### [facility] CLIA [id number] [address] [place] [address] LAB CLIA [id number] [address] [place] [address] [place] Nucleated RBC/100 WBC (Bld) [Ratio] 0.0 /100 WBC Normal [facility] Comment on above: Order Comment: Speci men Type: BLOOD SPECIMEN Ordering Facility: [facility] Address: [address] [place] [address] Performed By: #### 5 7021-8 #### [facility] CLIA [id number] [address] [place] [address] LAB CLIA [id number] [address] [place] [address] [place] Ovalocytes LM Ql (Bld) Few Normal [facility] Comment on above: Order Comment: Speci men Type: BLOOD SPECIMEN Ordering Facility: [facility] Address: [address] [place] [address] Performed By: #### 5 7021-8 #### [facility] CLIA [id number] [address] [place] [address] LAB CLIA [id number] [address] [place] [address] [place] Platelet mean volume (Bld) [Entitic vol] 9.5 fL Normal 9.0-12.7 [facility] Comment on above: Order Comment: Speci men Type: BLOOD SPECIMEN Ordering Facility: [facility] Address: [address] [place] [address] Performed By: #### 5 7021-8 #### [facility] CLIA [id number] [address] [place] [address] LAB CLIA [id number] [address] [place] [address] [place] Platelets (Bld) [#/Vol] 307 10*3/uL Normal 150-400 [facility] Comment on above: Order Comment: Speci men Type: BLOOD SPECIMEN Ordering Facility: [facility] Address: [address] [address] Performed By: #### 5 7021-8 #### [facility] CLIA [id number] [address] [place] [address] LAB CLIA [id number] [address] [place] [address] [place] Platelets Estimate (Bld) [#/Vol] Adequate Normal [facility] Comment on above: Order Comment: Speci men Type: BLOOD SPECIMEN Ordering Facility: [facility] Address: [address] [address] Performed By: #### 5 7021-8 #### [facility] CLIA [id number] [address] [place] [address] LAB CLIA [id number] [address] [place] [address] [place] RBC (Bld) [#/Vol] 5.04 10*6/uL Normal 3.90-5.20 [facility] Comment on above: Order Comment: Speci men Type: BLOOD SPECIMEN Ordering Facility: [facility] Address: [address] [place] [address] Performed By: #### 5 7021-8 #### [facility] CLIA [id number] [address] [place] [address] LAB CLIA [id number] [address] [place] [address] [place] RED CELL MORPH Reviewed: see result s of individual morphologies Normal [facility] Comment on above: Order Comment: Speci men Type: BLOOD SPECIMEN Ordering Facility: [facility] Address: [address] [place], [place] [address] Performed By: #### 5 7021-8 #### [facility] CLIA [id number] [address] [place] [address] LAB CLIA [id number] [address] [facility] [place] [address] [place] WBC (Bld) [#/Vol] 13.01 10*3/uL High 3.70-11.00 [facility] Comment on above: Order Comment: Speci men Type: BLOOD SPECIMEN Ordering Facility: [facility] Address: [address] [place] [address] Performed By: #### 5 7021-8 #### [facility] CLIA [id number] [address] [place] [address] [facility] CLIA [id number] [address] [place] [address] [place] CNOVSPon 10-07-2022 CNOVSP Visit (SP) Office ([place]) JESSICA FERRERA ([id number]) 1955 F Date Time Provider Department 10/07/22 [...] AM Signed NAME: Jessica Ferrera CLINIC NO.: [id number] DATE OF SERVICE: June 10, 2022 (Andra) [...] stable - can reassess in 6 months. [facility] Clinical Note Previous notes reviewed today in [...] with more than 50% of the total ewwa-jc-dhse time of the visit in counseling / coordination of care. Yo Morse MD, MS Unloading Checkerhat lining paster Hematology and Medical Oncology [address] [address], [place] [address] ========= Labs and Imaging Reviewed outside records provided prior to this visit and those in [facility]. as diagnosed by Dr. Morse [facility]. No evidence of a paraprotein. [...] me know. (more content not included)... Normal [facility] metabolic 2000 panelon 10-07-2022 Albumin [Mass/Vol] 4.4 g/dL Normal 3.9-4.9 [facility] Comment on above: Order Comment: Speci men Type: BLOOD SPECIMEN Ordering Facility: [facility] Address: [address] [place] [address] Performed By: #### 5 7021-8 #### [facility] CLIA [id number] [address] [place] [address] ALP [Catalytic activity/Vol] 95 U/L Normal 34-123 [facility] Comment on above: Order Comment: Speci men Type: BLOOD SPECIMEN Ordering Facility: [facility] Address: [address] [place] [address] Performed By: #### 5 7021-8 #### [facility] CLIA [id number] [address] [place] [address] ALT [Catalytic activity/Vol] 17 U/L Normal 7-38 [facility] Comment on above: Order Comment: Speci men Type: BLOOD SPECIMEN Ordering Facility: [facility] Address: [address] [place] [address] Performed By: #### 5 7021-8 #### [facility] CLIA [id number] [address] [place] [address] Anion gap [Moles/Vol] 11 mmol/L Normal 9-18 [facility] Comment on above: Order Comment: Speci men Type: BLOOD SPECIMEN Ordering Facility: [facility] Address: [address] [place] [address] Performed By: #### 5 7021-8 #### [facility] CLIA [id number] [address] [place] [address] AST [Catalytic activity/Vol] 15 U/L Normal 13-35 [facility] Comment on above: Order Comment: Speci men Type: BLOOD SPECIMEN Ordering Facility: [facility] Address: [address] [place], [place] [address] Performed By: #### 5 7021-8 #### [facility] CLIA [id number] [address] [place] [address] Bilirubin [Mass/Vol] 0.3 mg/dL Normal 0.2-1.3 [facility] Comment on above: Order Comment: Speci men Type: BLOOD SPECIMEN Ordering Facility: [facility] Address: [address] [place], [place] [address] Performed By: #### 5 7021-8 #### [facility] CLIA [id number] [address] [place] [address] Calcium [Mass/Vol] 9.4 mg/dL Normal 8.5-10.2 [facility] Comment on above: Order Comment: Speci men Type: BLOOD SPECIMEN Ordering Facility: [facility] Address: [address] [place] [address] Performed By: #### 5 7021-8 #### [facility] CLIA [id number] [address] [place] [address] Chloride [Moles/Vol] 102 mmol/L Normal 97-105 [facility] Comment on above: Order Comment: Speci men Type: BLOOD SPECIMEN Ordering Facility: [facility] Address: [address] [place] [address] Performed By: #### 5 7021-8 #### [facility] CLIA [id number] [address] [place] [address] CO2 [Moles/Vol] 27 mmol/L Normal 22-30 [facility] Comment on above: Order Comment: Speci men Type: BLOOD SPECIMEN Ordering Facility: [facility] Address: [address] [place] [address] Performed By: #### 5 7021-8 #### [facility] CLIA [id number] [address] [place] [address] Creatinine [Mass/Vol] 0.95 mg/dL Normal 0.58-0.96 [facility] Comment on above: Order Comment: Speci men Type: BLOOD SPECIMEN Ordering Facility: [facility] Address: [address] [place] [address] Performed By: #### 5 7021-8 #### [facility] CLIA [id number] [address] [place] [address] ESTIMATED GLOMERULAR FILTRATION RATE 66 mL/min/1.73m??? Normal >=60 [facility] Comment on above: Order Comment: Rocio shaffer Type: BLOOD SPECIMEN Ordering Facility: [facility] Address: [address] [place] [address] Result Comment: Abigail mated Glomerular Filtration Rate [...] accurately reflect actual GFR. Performed By: #### 5 7021-8 #### [facility] CLIA [id number] [address] [place] [address] Glucose [Mass/Vol] 105 mg/dL High 74-99 [facility] Comment on above: Order Comment: Rocio shaffer Type: BLOOD SPECIMEN Ordering Facility: [facility] Address: [address] [place] [address] Result Comment: The [place] [employer] (ADA) provides guidance for cutoff [...] Standards of Medical Care in Diabetes 2016, [place] [employer]. Diabetes Care. 2016.39(Suppl 1). Performed By: #### 5 7021-8 #### [facility] CLIA [id number] [address] [place] [address] Potassium [Moles/Vol] 3.9 mmol/L Normal 3.7-5.1 [facility] Comment on above: Order Comment: Speci men Type: BLOOD SPECIMEN Ordering Facility: [facility] Address: [address] [place] [address] Performed By: #### 5 7021-8 #### [facility] CLIA [id number] [address] [place] [address] Protein [Mass/Vol] 6.8 g/dL Normal 6.3-8.0 [facility] Comment on above: Order Comment: Speci men Type: BLOOD SPECIMEN Ordering Facility: [facility] Address: [address] [place] [address] Performed By: #### 5 7021-8 #### [facility] CLIA [id number] [address] [place] [address] Sodium [Moles/Vol] 140 mmol/L Normal 136-144 [facility] Comment on above: Order Comment: Speci men Type: BLOOD SPECIMEN Ordering Facility: [facility] Address: [address] [place] [address] Performed By: #### 5 7021-8 #### [facility] CLIA [id number] [address] [place] [address] Urea nitrogen [Mass/Vol] 11 mg/dL Normal 7-21 [facility] Comment on above: Order Comment: Speci men Type: BLOOD SPECIMEN Ordering Facility: [facility] Address: [address] [place] [address] Performed By: #### 5 7021-8 #### [facility] CLIA [id number] [address] [place] [address] [facility]in [facility] Ferritin [Mass/Vol] 24.4 ng/mL Normal 14.7-205.1 [facility] Comment on above: Order Comment: Speci men Type: BLOOD SPECIMEN Ordering Facility: [facility] Address: [address] [place] [address] Performed By: #### 5 7021-8 #### [facility] CLIA [id number] [address] [place] [address] Folate SerPl-mCncon 10-08-19 23 Folate [Mass/Vol] 17.6 ng/mL Normal >4.7 [facility] Comment on above: Order Comment: Speci men Type: BLOOD SPECIMEN Ordering Facility: [facility] Address: [address] [place] [address] Performed By: #### 5 7021-8 #### [facility] CLIA [id number] [address] [place] [address] Iron and Iron binding capaci ty panelon 10-07-2022 Iron [Mass/Vol] 97 ug/dL Normal 41-186 [facility] Comment on above: Order Comment: Speci men Type: BLOOD SPECIMEN Ordering Facility: [facility] Address: [address] [place] [address] Performed By: #### 5 7021-8 #### [facility] CLIA [id number] [address] [place] [address] Iron binding capacity [Mass/Vol] 379 ug/dL Normal 232-386 [facility] Comment on above: Order Comment: Speci men Type: BLOOD SPECIMEN Ordering Facility: [facility] Address: [address] [place] [address] Performed By: #### 5 7021-8 #### [facility] CLIA [id number] [address] [place] [address] Iron/TIBC [Molar ratio] 25.6 % Normal 15.0-57.0 [facility] Comment on above: Order Comment: Speci men Type: BLOOD SPECIMEN Ordering Facility: [facility] Address: [address] [place] [address] Performed By: #### 5 7021-8 #### [facility] CLIA [id number] [address] [place] [address] Vit B12 SerPl-mCncon 023 Cobalamin (Vitamin B12) [Mass/Vol] 316 pg/mL Normal 232-1245 [facility] Comment on above: Order Comment: Speci men Type: BLOOD SPECIMEN Ordering Facility: [facility] Address: [address] [place] [address] Performed By: #### 5 7021-8 #### [facility] CLIA [id number] [address] [place] [address] INSULINon 08-31-2022 Insulin 18.9 uIU/mL Normal 2.6-24.9 [facility] Comment on above: Performed By: #### I NSULIN #### [facility] [address] [place] [address] Dr. Barrington Gomez CBC AUTO DIFFon 08-29-2022 BASO # 0.1 103/ul Normal 0.0-0.1 [facility] Comment on above: Performed By: #### C BC #### [facility] [address] [place] [address] Dr. Barrington Gomez Basophils/100 WBC (Bld) 0.9 % Normal 0.2-2.0 [facility] Comment on above: Performed By: #### C BC #### [facility] [address] [place] [address] Dr. Barrington Gomez EO # 0.1 103/ul Normal 0.0-0.7 [facility] Comment on above: Performed By: #### C BC #### [facility] [address] [place] [address] Dr. Barrington Gomez Eosinophils/100 WBC (Bld) 1.9 % Normal 0.9-7.0 [facility] Comment on above: Performed By: #### C BC #### [facility] [address] [place] [address] Dr. Barrington Gomez Erythrocyte distribution width (RBC) [Ratio] 16.9 % Critically high 11.0-15.0 [facility] Comment on above: Performed By: #### C BC #### [facility] [address] [place] [address] Dr. Barrington Gomez Hematocrit (Bld) [Volume fraction] 44.4 % Normal 36.0-48.0 [facility] Comment on above: Performed By: #### C BC #### [facility] [address] [place] [address] Dr. Barrington Gomez Hemoglobin (Bld) [Mass/Vol] 13.9 g/dL Normal 12.0-16.0 [facility] Comment on above: Performed By: #### C BC #### [facility] [address] [place] [address] Dr. Barrington Gomez IG # 0.02 10e3/ul Normal 0.00-0.03 [facility] Comment on above: Performed By: #### C BC #### [facility] [address] [place] [address] Dr. Barrington Gomez IG % 0.3 % Normal 0.0-0.5 [facility] Comment on above: Performed By: #### C BC #### [facility] [address] [place] [address] Dr. Barrington Gomez LYMPH # 3.0 103/ul Normal 1.2-3.8 [facility] Comment on above: Performed By: #### C BC #### [facility] [address] [place] [address] Dr. Barrington Gomez Lymphocytes/100 WBC (Bld) 47.6 % Normal 20.5-60.0 [facility] Comment on above: Performed By: #### C BC #### [facility] [address] [place] [address] Dr. Barrington Gomez MANUAL DIFF REQ NO Normal [facility] Comment on above: Performed By: #### C BC #### [facility] [address] [place] [address] Dr. Barrington Gomez MCH (RBC) [Entitic mass] 27.4 pg Normal 26.7-34.0 [facility] Comment on above: Performed By: #### C BC #### [facility] [address] [place] [address] Dr. Barrington Gomez MCHC (RBC) [Mass/Vol] 31.3 g/dL Normal 29.9-35.2 [facility] Comment on above: Performed By: #### C BC #### [facility] [address] [address] [address] Barrington Gomez MCV (RBC) [Entitic vol] 87.6 fL Normal 81.0-99.0 [facility] Comment on above: Performed By: #### C BC #### [facility] [address] [address] [address] Barrington Gomez MONO # 0.6 103/ul Normal 0.3-0.8 [facility] Comment on above: Performed By: #### C BC #### [facility] [address] [place] [address] Dr. Barrington Gomez Monocytes/100 WBC (Bld) 8.8 % Normal 1.7-12.0 [facility] Comment on above: Performed By: #### C BC #### [facility] [address] [place] [address] Dr. Barrington Gomez NEUT # 2.6 103/ul Normal 1.4-6.5 [facility] Comment on above: Performed By: #### C BC #### [facility] [address] [place] [address] Dr. Barrington Gomez Neutrophils/100 WBC (Bld) 40.5 % Critically low 43.0-75.0 [facility] Comment on above: Performed By: #### C BC #### [facility] [address] [place] [address] Dr. Barrington Gomez Platelet mean volume (Bld) [Entitic vol] 9.4 fL Critically low 9.5-13.5 [facility] Comment on above: Performed By: #### C BC #### [facility] [address] [place] [address] Dr. Barrington Gomez PLT 243 103/ul Normal 150-450 [facility] Comment on above: Performed By: #### C BC #### [facility] [address] [place] [address] Dr. Barrington Gomez RBC 5.07 106/ul Normal 4.20-5.40 [facility] Comment on above: Performed By: #### C BC #### [facility] [address] [address] [address] Barrington Gomez WBC 6.4 103/ul Normal 4.0-11.0 [facility] Comment on above: Performed By: #### C BC #### [facility] [address] [address] [address] Barrington Gomez FREE THYROXINE INDEX T7on FTI 3.07 Normal 1.30-4.50 [facility] Comment on above: Performed By: #### U AMIC #### [facility] [address] [place] [address] Dr. Barrington Gomez T3U 32.0 % Normal 30.0-39.0 [facility] Comment on above: Performed By: #### U AMIC #### [facility] [address] [place] [address] Dr. Barrington Gomez T4 [Mass/Vol] 9.60 ug/dL Normal 4.80-13.90 [facility] Comment on above: Performed By: #### U AMIC #### [facility] [address] [place] [address] Dr. Barrington Gomez GLYCOHEMOGLOBIN A1Con 2022 ADA RECOMMENDATION SEE BELOW Normal [facility] Comment on above: Result Comment: ADA RECOMMENDED LIMIT 4.0 - 6.0 ADA THERAPEUTIC TARGET < 7.0 ACTION SUGGESTED > 7.0 Performed By: #### A 1C #### [facility] [address] [place] [address] Dr. Barrington Gomez Glucose [Mass/Vol] 120 mg/dL Normal [facility] Comment on above: Performed By: #### A 1C #### [facility] [address] [place] [address] Dr. Barrington Gomez HbA1c (Bld) [Mass fraction] 5.8 % Normal 4.5-6.2 [facility] Comment on above: Performed By: #### A 1C #### [facility] [address] [place] [address] Dr. Barrington Gomez IRONon 08-29-2022 Iron [Mass/Vol] 85.0 ug/dL Normal 50.0-170.0 The [facility] Comment on above: Performed By: #### U AMIC #### [facility] [id number] Barrington Gomez LIPID PROFILEon 08-29-2022 CHOL-HDL RATIO NORM SEE BELOW Normal [facility] Comment on above: Result Comment: 3.3 - 4.4 LOW RISK 4.4 - 7.1 AVERAGE RISK 7.1 - 11.0 MODERATE RISK >11.0 HIGH RISK Performed By: #### U AMIC #### [facility] [address] [address] [address] Barrington Gomez Cholesterol [Mass/Vol] 226 mg/dL Critically high <=200 [facility] Comment on above: Performed By: #### U AMIC #### [facility] [address] [address] [address] Barrington Gomez Cholesterol in HDL [Mass/Vol] 93 mg/dL Critically high 40-60 [facility] Comment on above: Performed By: #### U AMIC #### [facility] [address] [address] [address] Barrington Gomez Cholesterol in LDL [Mass/Vol] 114.6 mg/dL Normal [facility] Comment on above: Performed By: #### U AMIC #### [facility] [address] [address] [address] Barrington Gomez Cholesterol.total/Choles terol in HDL [Mass ratio] 2.4 {ratio} Normal [facility] Comment on above: Performed By: #### U AMIC #### [facility] [address] [address] [address] Barrington Gomez HDL NORMAL > or = 60 mg/dl - LO W CARDIOVASCULAR RISK <40 mg/dl - HIGH CARDIOVASCULAR RISK Normal [facility] Comment on above: Performed By: #### U AMIC #### [facility] [address] [address] [address] Barrington Gomez LDL CALC NORMAL SEE BELOW Normal [facility] Comment on above: Result Comment: <100 mg/dl OPTIMAL 100 - 129 mg/dl NEAR OR ABOVE OPTIMAL 130 - 159 mg/dl BORDERLINE HIGH 160 - 189 mg/dl HIGH >190 mg/dl VERY HIGH Performed By: #### U AMIC #### [facility] [address] [address] [address] Barrington Gomez Triglyceride [Mass/Vol] 92 mg/dL Normal <=150 [facility] Comment on above: Performed By: #### U AMIC #### [facility] [address] [address] [address] Barrington Gomez VLDL CALC 18.4 mg/dL Normal [facility] Comment on above: Performed By: #### U AMIC #### [facility] [address] [address] [address] Barrington Gomez PROF 14(COMP METB)on 023 Albumin [Mass/Vol] 3.5 g/dL Normal 3.4-5.0 [facility] Comment on above: Performed By: #### U AMIC #### [facility] [address] [place] [address] Dr. Barrington Gomez Albumin/Globulin [Mass ratio] 1.1 {ratio} Normal [facility] Comment on above: Performed By: #### U AMIC #### [facility] [address] [address] [address] Barrington Gomez ALP [Catalytic activity/Vol] 71 U/L Normal 46-116 [facility] Comment on above: Performed By: #### U AMIC #### [facility] [address] [address] [address] Barrington Gomez ALT [Catalytic activity/Vol] 28 U/L Normal 14-59 [facility] Comment on above: Performed By: #### U AMIC #### [facility] [address] [address] [address] Barrington Gomez Anion gap [Moles/Vol] 10.4 mmol/L Normal [facility] Comment on above: Performed By: #### U AMIC #### [facility] [address] [address] [address] Barrington Gomez AST [Catalytic activity/Vol] 15 U/L Normal 15-37 [facility] Comment on above: Performed By: #### U AMIC #### [facility] [address] [address] [address] Barrington Gomez Bilirubin [Mass/Vol] 0.4 mg/dL Normal 0.2-1.0 [facility] Comment on above: Performed By: #### U AMIC #### [facility] [address] [address] [address] Barrington Gomez Calcium [Mass/Vol] 9.4 mg/dL Normal 8.5-10.1 [facility] Comment on above: Performed By: #### U AMIC #### [facility] [address] [address] [address] Barrington Gomez Chloride [Moles/Vol] 106 mmol/L Normal 98-107 [facility] Comment on above: Performed By: #### U AMIC #### [facility] [address] [place] [address] Dr. Barrington Gomez CO2 [Moles/Vol] 29.8 mmol/L Normal 21.0-32.0 [facility] Comment on above: Performed By: #### U AMIC #### [facility] [address] [address] [address] Barrington Gomez Creatinine [Mass/Vol] 0.91 mg/dL Normal 0.55-1.02 [facility] Comment on above: Performed By: #### U AMIC #### [facility] [address] [address] [address] Barrington Gomez EGFR-AF LIBYAN >60 Normal >=60 [facility] Comment on above: Performed By: #### U AMIC #### [facility] [address] [address] [address] Barrington Gomez EGFR-NON AF LIBYAN >60 Normal >=60 [facility] Comment on above: Performed By: #### U AMIC #### [facility] [address] [place] [address] Dr. Barrington Gomez Globulin (S) [Mass/Vol] 3.1 g/dL Normal [facility] Comment on above: Performed By: #### U AMIC #### [facility] [address] [address] [address] Barrington Gomez Glucose [Mass/Vol] 88 mg/dL Normal 74-106 [facility] Comment on above: Performed By: #### U AMIC #### [facility] [address] [address] [address] Barrington Gomez Potassium [Moles/Vol] 4.2 mmol/L Normal 3.5-5.1 [facility] Comment on above: Performed By: #### U AMIC #### [facility] [address] [address] [address] Barrington Gomez Protein [Mass/Vol] 6.6 g/dL Normal 6.4-8.2 [facility] Comment on above: Performed By: #### U AMIC #### [facility] [address] [address] [address] Barrington Gomez Sodium [Moles/Vol] 142 mmol/L Normal 136-145 [facility] Comment on above: Performed By: #### U AMIC #### [facility] [address] [address] [address] Barrington Gomez Urea nitrogen [Mass/Vol] 13.0 mg/dL Normal 7.0-18.0 [facility] Comment on above: Performed By: #### U AMIC #### [facility] [address] [address] [address] Barrington Gomez Urea nitrogen/Creatinine [Mass ratio] 14.3 mg/mg Normal [facility] Comment on above: Performed By: #### U AMIC #### [facility] [address] [address] [address] Barrington Gomez TSHon 08-29-2022 TSH 1.585 uIU/mL Normal 0.358-3.740 [facility] Comment on above: Performed By: #### U AMIC #### [facility] [address] [place] [address] Dr. Barrington Gomez [facility]01 SARS-CoV-2 (COVID-19) RNA EVAN+probe Ql (Unsp spec) Not detected Normal NOT DETECTED [facility] Comment on above: Result Comment: When diagnostic [...] for this test is supported by the [place] of Health and Human Service's declaration that [...] used). Performed By: #### C VDTB #### [facility] [address] [place] [address] Dr. Barrington Gomez INFLUENZA A AND B AGon 04-28 INFLUBNEGH SEE BELOW Normal [facility] Comment on above: Result Comment: Nega tive for Flu B protein antigen. Infection due to Flu B cannot be ruled out. Flu B antigen in the sample may be below the detection limit of the test. Performed By: #### I NFLUAB #### [facility] [address] [place] [address] Dr. Barrington Gomez INFLUENZA A AG Positive Abnormal NEGATIVE SEE COMMENT [facility] Comment on above: Performed By: #### I NFLUAB #### [facility] [address] [place] [address] Dr. Barrington Gomez INFLUENZA B AG Negative Normal NEGATIVE SEE COMMENT [facility] Comment on above: Performed By: #### I NFLUAB #### [facility] [address] [place] [address] Dr. Barrington Gomez INFLUPOSH SEE BELOW Normal [facility] Comment on above: Result Comment: NOTE : Live attenuated influenzae vaccine viruses can cause a positive result for a rapid influenza diagnostic test if administered up to 7 days prior to rapid testing. Performed By: #### I NFLUAB #### [facility] [address] [address] [address] Barrington Gomez INTERNAL CONTROLS Within Normal Limits Normal Wi thin Normal Limits [facility] Comment on above: Performed By: #### I NFLUAB #### [facility] [address] [place], [place] [address] Dr. Barrington Gomez Basic Metabolic Panelon 01-30 Anion gap [Moles/Vol] 6 mmol/L Low 9 - 17 mmol/L [facility] Calcium [Mass/Vol] 8.5 mg/dL Low 8.6 - 10. 4 mg/dL [facility] Chloride [Moles/Vol] 108 mmol/L High 98 - 10 7 mmol/L [facility] CO2 [Moles/Vol] 24 mmol/L 20 - 31 mmol/L [facility] Creatinine [Mass/Vol] 0.93 mg/dL High 0.5 - 0.9 mg/dL [facility] GFR >60 60 - PI NF mL/min [facility] GFR Non- >60 60 - PINF mL/min [facility] GFR/1.73 sq M.predicted MDRD (S/P/Bld) [Vol rate/Area] [facility] Comment on above: Average GFR for 60-6 9 years old: 85 mL/min/1.73sq m Chronic Kidney Disease: <60 mL/min/1.73sq m Kidney failure: <15 mL/min/1.73sq m eGFR calculated using average adult body mass. Additional eGFR calculator available at: http://www.Benesight.Roamler/multiple_crcl_2012.htm Glucose [Mass/Vol] 145 mg/dL High 70 - 99 mg/dL [facility] Interpretation and review of laboratory results Abnormal [facility] Potassium [Moles/Vol] 4.9 mmol/L 3.7 - 5.3 mmol/L [facility] Sodium [Moles/Vol] 138 mmol/L 135 - 144 mmol/L [facility] Urea nitrogen (BldV) [Mass/Vol] 9 mg/dL 8 - 23 mg/dL [facility] Urea nitrogen/Creatinine (Bld) [Mass ratio] 10 9 - 20 [facility] Basic Metabolic Profon 02-17 (cont.) Normal [facility] Comment on above: Result Comment: Aver age GFR for 60-69 years old: 85 mL/min/1.73sq m Chronic Kidney Disease: <60 mL/min/1.73sq m Kidney failure: <15 mL/min/1.73sq m eGFR calculated using average adult body mass. Additional eGFR calculator available at: http://www.HelpSaúde.com/multiple_crcl_2012.htm Performed By: #### C DP, BMP #### [facility] [address] [facility] [place] [address] Pants Busheler: Jelani Liu MD Anion gap [Moles/Vol] 6 mmol/L Low -17 [facility] Comment on above: Performed By: #### C DP, BMP #### [facility] [address] [place] [address] Pants Busheler: Jelani Liu MD BUN/CRE Ratio 10 Normal 02-17 [facility] Comment on above: Performed By: #### C DP, BMP #### [facility] [address] [place] [address] Pants Busheler: Jelani Liu MD Calcium [Mass/Vol] 8.5 mg/dL Low 8.6-10.4 [facility] Comment on above: Performed By: #### C DP, BMP #### [facility] [address] [place] [address] Pants Busheler: Jelani Liu MD Chloride [Moles/Vol] 108 mmol/L High 98-107 [facility] Comment on above: Performed By: #### C DP, BMP #### [facility] [address] [place] [address] Pants Busheler: Jelani Liu MD CO2 [Moles/Vol] 24 mmol/L Normal 20-31 [facility] Comment on above: Performed By: #### C DP, BMP #### [facility] [address] [place] [address] Pants Busheler: Jelani Liu MD Creatinine [Mass/Vol] 0.93 mg/dL High 0.50-0.90 [facility] Comment on above: Performed By: #### C DP, BMP #### [facility] [address] [place] [address] Pants Busheler: Jelani Liu MD GFR, Amer >60 Normal >60 [facility] Comment on above: Performed By: #### C DP, BMP #### [facility] [place] [address] Pants Busheler: Jelani Liu MD GFR,non Amer >60 Normal >60 [facility] Comment on above: Performed By: #### C DP, BMP #### [facility] [address] [place] [address] Pants Busheler: Jelani Liu MD Glucose [Mass/Vol] 145 mg/dL High 70-99 [facility] Comment on above: Performed By: #### C DP, BMP #### [facility] [address] [place] [address] Pants Busheler: Jelani Liu MD Potassium [Moles/Vol] 4.9 mmol/L Normal 3.7-5.3 [facility] Comment on above: Performed By: #### C DP, BMP #### [facility] [address] [place] [address] Pants Busheler: Jelani Liu MD Sodium [Moles/Vol] 138 mmol/L Normal 135-144 [facility] Comment on above: Performed By: #### C DP, BMP #### [facility] [address] [place], [place] [id number] Pants Busheler: Jelani Liu MD Urea nitrogen [Mass/Vol] 9 mg/dL Normal 8-23 [facility] Comment on above: Performed By: #### C DP, BMP #### [facility] [address] [facility] [place], [place] [id number] Pants Busheler: Jelani Liu MD CBC with Auto Differentialon 02-17-2022 Absolute Eos # [facility] S [facility] Absolute Immature Granulocyte 0.05 [facility] Absolute Lymph # 1.47 [facility] Absolute Emery # 0.63 [facility] Basophils (Bld) [#/Vol] 0.03 10*3/uL [facility] Basophils/100 WBC (Bld) 0 % 0 - 2 % B [facility] Eosinophils/100 WBC (Bld) 0 % Low 1 - 4 % [facility] Hematocrit (Bld) [Volume fraction] 32.5 % Low 36.3 - 47.1 % [facility] Hemoglobin (Bld) [Mass/Vol] 9.8 g/dL Low 11.9 - 15.1 g/dL [facility] Immature granulocytes/100 WBC (Bld) 0 % 0 [facility] Interpretation and review of laboratory results Abnormal [facility] Lymphocytes/100 WBC (Bld) 11 % Low 24 - 43 % [facility] MCH (RBC) [Entitic mass] 25.3 pg 25. 2 - 33.5 pg [facility] MCHC (RBC) [Mass/Vol] 30.2 g/dL 28.4 - 34.8 g/dL [facility] MCV (RBC) [Entitic vol] 83.8 fL 82.6 - 102.9 fL [facility] Monocytes/100 WBC (Bld) 5 % 3 - 12 % B [facility] NRBC Automated 0.0 0.0 per 100 WBC [facility] Platelet distribution width (Bld) [Ratio] 14.9 % High 11.8 - 14.4 % [facility] Platelet mean volume (Bld) [Entitic vol] 10.6 fL 8.1 - 13.5 fL [facility] Platelets (Bld) [#/Vol] 269 10*3/uL [facility] RBC (Bld) [#/Vol] 3.88 10*6/uL Low 3.95 - 5.1 1 m/uL [facility] RBC (Bld) [#/Vol] ANISOCYTOSIS PRESENT [facility] Segmented neutrophils/100 WBC (Bld) 84 % High 36 - 65 % [facility] Segs Absolute 11.41 High [facility] WBC (Bld) [#/Vol] 13.6 10*3/uL High [facility] CBC with Diffon 02-17-2022 Abs. Basophil 0.03 k/uL Normal 0.00-0.20 [facility] Comment on above: Performed By: #### C DP, BMP #### [facility] [address] [place] [address] Pants Busheler: Jelani Liu MD Abs. Eosinophil <0.03 Normal 0.00-0.44 [facility] Comment on above: Performed By: #### C DP, BMP #### [facility] [address] [place] [address] Pants Busheler: Jelani Liu MD Abs.Imm.Granulocyte 0.05 k/uL Normal 0.00-0.30 [facility] Comment on above: Performed By: #### C DP, BMP #### [facility] [address] [place] [address] Pants Busheler: Jelani Liu MD Abs.Neutrophil (Seg) 11.41 k/uL High 1.50-8.10 [facility] Comment on above: Performed By: #### C DP, BMP #### [facility] [place] [address] Pants Busheler: Jelani Liu MD Basophils/100 WBC (Bld) 0 % Normal 0-2 [facility] Comment on above: Performed By: #### C DP, BMP #### [facility] [address] [place] [address] Pants Busheler: Jelani Liu MD Eosinophils/100 WBC (Bld) 0 % Low 1-4 [facility] Comment on above: Performed By: #### C DP, BMP #### [facility] [address] [place] [address] Pants Busheler: Jelani Liu MD Erythrocyte distribution width (RBC) [Ratio] 14.9 % High 11.8-14.4 [facility] Comment on above: Performed By: #### C DP, BMP #### [facility] [address] [place] [address] Pants Busheler: Jelani Liu MD Hematocrit (Bld) [Volume fraction] 32.5 % Low 36.3-47.1 [facility] Comment on above: Performed By: #### C DP, BMP #### [facility] [address] [place] [address] Pants Busheler: Jelani Liu MD Hemoglobin (Bld) [Mass/Vol] 9.8 g/dL Low 11.9-15.1 [facility] Comment on above: Performed By: #### C DP, BMP #### [facility] [address] [place] [address] Pants Busheler: Jelani Liu MD Immature granulocytes/100 WBC (Bld) 0 % Normal 0 [facility] Comment on above: Performed By: #### C DP, BMP #### [facility] [place] [address] Pants Busheler: Jelani Liu MD Lymphocytes (Bld) [#/Vol] 1.47 10*3/uL Normal 1.10-3.70 [facility] Comment on above: Performed By: #### C DP, BMP #### [facility] [address] [place] [address] Pants Busheler: Jelani Liu MD Lymphocytes/100 WBC (Bld) 11 % Low 24-43 [facility] Comment on above: Performed By: #### C DP, BMP #### [facility] [address] [place] [address] Pants Busheler: Jelani Liu MD MCH (RBC) [Entitic mass] 25.3 pg Normal 25.2-33.5 [facility] Comment on above: Performed By: #### C DP, BMP #### [facility] [address] [place] [address] Pants Busheler: Jelani Liu MD MCHC (RBC) [Mass/Vol] 30.2 g/dL Normal 28.4-34.8 [facility] Comment on above: Performed By: #### C DP, BMP #### [facility] [address] [place] [address] Pants Busheler: Jelani Liu MD MCV (RBC) [Entitic vol] 83.8 fL Normal 82.6-102.9 [facility] Comment on above: Performed By: #### C DP, BMP #### [facility] [address] [place] [address]. [place] [address] Pants Busheler: Jelani Liu MD Monocytes (Bld) [#/Vol] 0.63 10*3/uL Normal 0.10-1.20 [facility] Comment on above: Performed By: #### C DP, BMP #### [facility] [address] [place] [address] Pants Busheler: Jelani Liu MD Monocytes/100 WBC (Bld) 5 % Normal 3-12 [facility] Comment on above: Performed By: #### C DP, BMP #### [facility] [address] [place] [address]. [place] [address] Pants Busheler: Jelani Liu MD Neutrophil (Seg) 84 % High 36-65 [facility] Comment on above: Performed By: #### C DP, BMP #### [facility] [address] [place] [address]. [place] [address] Pants Busheler: Jelani Liu MD NRBC Automated 0.0 per 100 WBC Normal 0.0 [facility] Comment on above: Performed By: #### C DP, BMP #### [facility] [address] [place] [address] Pants Busheler: Jelani Liu MD Platelet mean volume (Bld) [Entitic vol] 10.6 fL Normal 8.1-13.5 [facility] Comment on above: Performed By: #### C DP, BMP #### [facility] [address] [place] [address] Pants Busheler: Jelani Liu MD Platelets (Bld) [#/Vol] 269 10*3/uL Normal 138-453 [facility] Comment on above: Performed By: #### C DP, BMP #### [facility] [address] [place] [address]. [place] [address] Pants Busheler: Jelani Liu MD RBC (Bld) [#/Vol] 3.88 10*6/uL Low 3.95-5.11 [facility] Comment on above: Performed By: #### C DP, BMP #### [facility] [address] [facility] [place] [address] Pants Busheler: Jelani Liu MD RBC morphology finding Nom (Bld) ANISOCYTOSIS PRESENT Normal [facility] Comment on above: Performed By: #### C DP, BMP #### [facility] [address] [facility] [place] [address] Pants Busheler: Jelani Liu MD WBC (Bld) [#/Vol] 13.6 10*3/uL High 3.5-11.3 [facility] Comment on above: Performed By: #### C DP, BMP #### [facility] [address] [facility] [place] [address] Pants Busheler: Jelani Liu MD FLUORO FOR SURGICAL PROCEDUR ESon 02-16-2022 FLUORO FOR SURGICAL PROCEDURES Radiology exam is complete. No Radiologist dictation. Please follow up with ordering provider. Final result Normal [facility] Radiology exam is complete. No Radiologist dictation. Please follow up with ordering provider. PN RIS CONSOLIDATED Cult,Urineon 01-28-2022 Cult,Urine Specimen Description .CLEAN CATCH URINE Culture NO SIGNIFICANT GROWTH Report Status FINAL 01/27/2022 Normal [facility] Comment on above: Performed By: #### U RC ####[facility] [id number] [place] [address] Lab Director: JOAQUÍN [facility] [address] [address] Lab Director: Terrance Luevano MD Culture, Urineon 01-27-2022 Bacteria identified Cx Nom (U) NO SIGNIFICANT GROWTH [facility] Specimen Description .CLEAN CATCH URINE [facility] APTTon 01-26-2022 aPTT Coag (Bld) [Time] 25.6 s Normal 23.9-33.8 [facility] Comment on above: Result Comment: IV Heparin Therapy Range: 62.0-94.0 Performed By: #### P T, CDP, PTT, BMP ####[facility] [id number] [place] [address] lab Director: Jelani Liu MD aPTT Coag (Bld) [Time] 25.6 s [facility] Comment on above: IV Heparin Therapy Range: 62.0-94.0 Basic Metabolic Panelon 12-30 Anion gap [Moles/Vol] 10 mmol/L 9 - 17 mmol/L [facility] Calcium [Mass/Vol] 8.8 mg/dL 8.6 - 10. 4 mg/dL [facility] [facility] Chloride [Moles/Vol] 104 mmol/L 98 - 10 7 mmol/L [facility] CO2 [Moles/Vol] 24 mmol/L 20 - 31 mmol/L [facility] Creatinine [Mass/Vol] 1.01 mg/dL High 0.5 - 0.9 mg/dL [facility] GFR >60 60 - PI NF mL/min [facility] GFR Non- 55 mL/min Low 60 - PINF mL/min [facility] GFR/1.73 sq M.predicted MDRD (S/P/Bld) [Vol rate/Area] [facility] Comment on above: Average GFR for 60-6 9 years old: 85 mL/min/1.73sq m Chronic Kidney Disease: <60 mL/min/1.73sq m Kidney failure: <15 mL/min/1.73sq m eGFR calculated using average adult body mass. Additional eGFR calculator available at: http://www.Benesight.Roamler/multiple_crcl_2012.htm Glucose [Mass/Vol] 101 mg/dL High 70 - 99 mg/dL [facility] Interpretation and review of laboratory results Abnormal [facility] Potassium [Moles/Vol] 3.9 mmol/L 3.7 - 5.3 mmol/L [facility] Sodium [Moles/Vol] 138 mmol/L 135 - 144 mmol/L [facility] Urea nitrogen (BldV) [Mass/Vol] 13 mg/dL 8 - 23 mg/dL [facility] Urea nitrogen/Creatinine (Bld) [Mass ratio] 13 9 - 20 [facility] Basic Metabolic Profon 01-26 (cont.) Normal [facility] Comment on above: Result Comment: Aver age GFR for 60-69 years old: 85 mL/min/1.73sq m Chronic Kidney Disease: <60 mL/min/1.73sq m Kidney failure: <15 mL/min/1.73sq m eGFR calculated using average adult body mass. Additional eGFR calculator available at: http://www.HelpSaúde.com/multiple_crcl_2012.htm Performed By: #### P T, CDP, PTT, BMP ####[facility] [address] [facility] [place] [address] lab Director: Jelani Liu MD Anion gap [Moles/Vol] 10 mmol/L Normal -17 [facility] Comment on above: Performed By: #### P T, CDP, PTT, BMP ####[facility] [id number] [place] [place] [address] lab Director: Jelani Liu MD BUN/CRE Ratio 13 Normal -20 [facility] Comment on above: Performed By: #### P T, CDP, PTT, BMP ####[facility] [address] [place] [address] lab Director: Jelani Liu MD Calcium [Mass/Vol] 8.8 mg/dL Normal 8.6-10.4 [facility] Comment on above: Performed By: #### P T, CDP, PTT, BMP ####[facility] [address] [place] [phone] Director: Jelani Liu MD Chloride [Moles/Vol] 104 mmol/L Normal 98-107 [facility] Comment on above: Performed By: #### P T, CDP, PTT, BMP ####[facility] [address] [place] [address] Lab Director: Jelani Liu MD CO2 [Moles/Vol] 24 mmol/L Normal 20-31 [facility] Comment on above: Performed By: #### P T, CDP, PTT, BMP ####[facility] [address] [place] [address] Lab Director: Jelani Liu MD Creatinine [Mass/Vol] 1.01 mg/dL High 0.50-0.90 [facility] Comment on above: Performed By: #### P T, CDP, PTT, BMP ####[facility] [address] [place] [address] Lab Director: Jelani Liu MD GFR, Amer >60 Normal >60 [facility] Comment on above: Performed By: #### P T, CDP, PTT, BMP ####[facility] [address] [place] [address] Lab Director: Jelani Liu MD GFR,non Amer 55 mL/min Low >60 [facility] Comment on above: Performed By: #### P T, CDP, PTT, BMP ####[facility] [address] [place] [address] Lab Director: Jelani Liu MD Glucose [Mass/Vol] 101 mg/dL High 70-99 [facility] Comment on above: Performed By: #### P T, CDP, PTT, BMP ####[facility] [address] [place] [address] Lab Director: Jelani Liu MD Potassium [Moles/Vol] 3.9 mmol/L Normal 3.7-5.3 [facility] Comment on above: Performed By: #### P T, CDP, PTT, BMP ####[facility] [address] [place] [address] Lab Director: Jelani Liu MD Sodium [Moles/Vol] 138 mmol/L Normal 135-144 [facility] Comment on above: Performed By: #### P T, CDP, PTT, BMP ####[facility] [address] [place] [address] Lab Director: Jelani Liu MD Urea nitrogen [Mass/Vol] 13 mg/dL Normal 8-23 [facility] Comment on above: Performed By: #### P T, CDP, PTT, BMP ####[facility] [address] [place] [address] Lab Director: Jelani Liu MD CBC with Auto Differentialon 01-26-2022 Absolute Eos # 0.00 [facility] Absolute Immature Granulocyte 0.00 [facility] Absolute Lymph # 5.08 High [facility] Comment on above: R/O Chronic Lymphopr oliferative Disorder, recommend peripheral blood Flow Cytometry, if clinically indicated. Absolute Emery # 1.13 [facility] Basophils (Bld) [#/Vol] 0.09 10*3/uL [facility] Basophils/100 WBC (Bld) 1 % 0 - 2 % B ON [facility] Eosinophils/100 WBC (Bld) 0 % Low 1 - 4 % [facility] Hematocrit (Bld) [Volume fraction] 38.1 % 36.3 - 47.1 % [facility] Hemoglobin (Bld) [Mass/Vol] 11.4 g/dL Low 11.9 - 15.1 g/dL [facility] Immature granulocytes/100 WBC (Bld) 0 % 0 [facility] Interpretation and review of laboratory results Abnormal [facility] Lymphocytes/100 WBC (Bld) 54 % High 24 - 43 % [facility] MCH (RBC) [Entitic mass] 25.7 pg 25. 2 - 33.5 pg [facility] MCHC (RBC) [Mass/Vol] 29.9 g/dL 28.4 - 34.8 g/dL [facility] MCV (RBC) [Entitic vol] 86.0 fL 82.6 - 102.9 fL [facility] Monocytes/100 WBC (Bld) 12 % 3 - 12 % B ON [facility] NRBC Automated 0.0 0.0 per 100 WBC [facility] Platelet distribution width (Bld) [Ratio] 16.7 % High 11.8 - 14.4 % [facility] Platelet mean volume (Bld) [Entitic vol] 9.6 fL 8.1 - 13.5 fL [facility] Platelets (Bld) [#/Vol] 277 10*3/uL [facility] RBC (Bld) [#/Vol] 4.43 10*6/uL 3.95 - 5.1 1 m/uL [facility] Segmented neutrophils/100 WBC (Bld) 33 % Low 36 - 65 % [facility] Segs Absolute 3.10 [facility] WBC (Bld) [#/Vol] 9.4 10*3/uL [facility] CBC with Diffon 01-26-2022 Abs. Basophil 0.09 k/uL Normal 0.00-0.20 [facility] Comment on above: Performed By: #### P T, CDP, PTT, BMP ####[facility] [address] [place] [address] lab Director: Jelani Liu MD Abs.Imm.Granulocyte 0.00 k/uL Normal 0.00-0.30 [facility] Comment on above: Performed By: #### P T, CDP, PTT, BMP ####[facility] [id number] [facility], [place] [phone] Director: Jelani Liu MD Abs.Neutrophil (Seg) 3.10 k/uL Normal 1.50-8.10 [facility] Comment on above: Performed By: #### P T, CDP, PTT, BMP ####[facility] [address] [place] [address] Lab Director: Jelani Liu MD Basophils/100 WBC (Bld) 1 % Normal 0-2 [facility] Comment on above: Performed By: #### P T, CDP, PTT, BMP ####[facility] [address] [place] [address] Lab Director: Jelani Liu MD Eosinophils (Bld) [#/Vol] 0.00 10*3/uL Normal 0.00-0.44 [facility] Comment on above: Performed By: #### P T, CDP, PTT, BMP ####[facility] [address] [place] [address] Lab Director: Jelani Liu MD Eosinophils/100 WBC (Bld) 0 % Low 1-4 [facility] Comment on above: Performed By: #### P T, CDP, PTT, BMP ####[facility] [address] [place] [address] Lab Director: Jelani Liu MD Immature granulocytes/100 WBC (Bld) 0 % Normal 0 [facility] Comment on above: Performed By: #### P T, CDP, PTT, BMP ####[facility] [address] [place] [address] Lab Director: Jelani Liu MD Lymphocytes (Bld) [#/Vol] 5.08 10*3/uL High 1.10-3.70 [facility] Comment on above: Result Comment: R/O Chronic Lymphoproliferative Disorder, recommend peripheral blood Flow Cytometry, if clinically indicated. Performed By: #### P T, CDP, PTT, BMP ####[facility] [address] [place] [address] Lab Director: Jelani Liu MD Lymphocytes/100 WBC (Bld) 54 % High 24-43 [facility] Comment on above: Performed By: #### P T, CDP, PTT, BMP ####[facility] [address] [place] [address] Lab Director: Jelani Liu MD Monocytes (Bld) [#/Vol] 1.13 10*3/uL Normal 0.10-1.20 [facility] Comment on above: Performed By: #### P T, CDP, PTT, BMP ####[facility] [address] [place] [address].[place] [address] Lab Director: Jelani Liu MD Monocytes/100 WBC (Bld) 12 % Normal 3-12 [facility] Comment on above: Performed By: #### P T, CDP, PTT, BMP ####[facility] [address] [place] [address].[place] [address] Lab Director: Jelani Liu MD Neutrophil (Seg) 33 % Low 36-65 [facility] Comment on above: Performed By: #### P T, CDP, PTT, BMP ####[facility] [address] [place] [address].[place] [address] Lab Director: Jelani Liu MD Erythrocyte distribution width (RBC) [Ratio] 16.7 % High 11.8-14.4 [facility] Comment on above: Performed By: #### P T, CDP, PTT, BMP ####[facility] [address] [place] [address].[place] [address] Lab Director: Jelani Liu MD Hematocrit (Bld) [Volume fraction] 38.1 % Normal 36.3-47.1 [facility] Comment on above: Performed By: #### P T, CDP, PTT, BMP ####[facility] [address] [facility] [place] [address] Lab Director: Jelani Liu MD Hemoglobin (Bld) [Mass/Vol] 11.4 g/dL Low 11.9-15.1 [facility] Comment on above: Performed By: #### P T, CDP, PTT, BMP ####[facility] [address] [place] [address].[place] [address] Lab Director: Jelani Liu MD MCH (RBC) [Entitic mass] 25.7 pg Normal 25.2-33.5 [facility] Comment on above: Performed By: #### P T, CDP, PTT, BMP ####[facility] [address] [place] [address].[place] [address] Lab Director: Jelani Liu MD MCHC (RBC) [Mass/Vol] 29.9 g/dL Normal 28.4-34.8 [facility] Comment on above: Performed By: #### P T, CDP, PTT, BMP ####[facility] [address] [place] [address].[place] [address] Lab Director: Jelani Liu MD MCV (RBC) [Entitic vol] 86.0 fL Normal 82.6-102.9 [facility] Comment on above: Performed By: #### P T, CDP, PTT, BMP ####[facility] [address] [place] [address].[place] [address] Lab Director: Jelani Liu MD NRBC Automated 0.0 per 100 WBC Normal 0.0 [facility] Comment on above: Performed By: #### P T, CDP, PTT, BMP ####[facility] [id number] [facility], [place] [phone] Director: Jelani Liu MD Platelet mean volume (Bld) [Entitic vol] 9.6 fL Normal 8.1-13.5 [facility] Comment on above: Performed By: #### P T, CDP, PTT, BMP ####[facility] [address] [facility] [place] [address] Lab Director: Jelani Liu MD Platelets (Bld) [#/Vol] 277 10*3/uL Normal 138-453 [facility] Comment on above: Performed By: #### P T, CDP, PTT, BMP ####[facility] [address] [facility], [place] [phone] Director: Jelani Liu MD RBC (Bld) [#/Vol] 4.43 10*6/uL Normal 3.95-5.11 [facility] Comment on above: Performed By: #### P T, CDP, PTT, BMP ####[facility] [address] [facility] [place] [address] Lab Director: Jelani Liu MD WBC (Bld) [#/Vol] 9.4 10*3/uL Normal 3.5-11.3 [facility] Comment on above: Performed By: #### P T, CDP, PTT, BMP ####[facility] [address] [facility], [place] [phone] Director: Jelani Liu MD MRSA DNA Probe, Nasalon - MRSA, DNA, Nasal Negative NEGATIVE [facility] Comment on above: NEGATIVE: MRSA DNA n ot detected by nucleic acid amplification. Results should be used as an adjunct to nosocomial control efforts to identify patients needing enhanced precautions. The test is not intended to identify patients with staphylococcal infections. Results should not be used to guide or monitor treatment for MRSA infections. Specimen Description .NASAL SWAB [facility] MRSA, DNA, Nasalon MRSA, DNA, Nasal Negative Normal NEG [facility] Comment on above: Result Comment: NEGA TIVE: MRSA DNA not detected by nucleic acid amplification. Results should be used as an adjunct to nosocomial control efforts to identify patients needing enhanced precautions. The test is not intended to identify patients with staphylococcal infections. Results should not be used to guide or monitor treatment for MRSA infections. Performed By: #### M RSANO ####[facility] [address] [place] [address] Lab Director: Jelani Liu [facility] [address] Lab Director: Terrance Luevano MD Specimen Description .NASAL SWAB Normal [facility] Comment on above: Performed By: #### M RSANO ####[facility] [address] [place] [address] Lab Director: Jyoti Membreno[address] [address] Lab Director: Terrance Luevano MD No Panel Informationon 01-26 [facility] PTon 01-26-2022 INR Coag (PPP) [Relative time] 0.9 {INR} Normal [facility] Comment on above: Result Comment: Non-therapeutic Range: INR = 0.9-1.2 Therapeutic Range: Moderate Anticoagulant Intensity: INR = 2.0-3.0 High Anticoagulant Intensity: INR = 2.5-3.5 Performed By: #### P T, CDP, PTT, BMP #### [facility] [address] [place] [address] Pants Busheler: Jelani Liu MD PT Coag (PPP) [Time] 12.1 s Normal 11.5-14.2 [facility] Comment on above: Performed By: #### P T, CDP, PTT, BMP #### [facility] [address] [place] [address] Pants Busheler: Jelani Liu MD Protime-INRon 01-26-2022 INR Coag (Bld) [Relative time] 0.9 {INR} [facility] Comment on above: Non-therapeutic Range: INR = 0.9-1.2 Therapeutic Range: Moderate Anticoagulant Intensity: INR = 2.0-3.0 High Anticoagulant Intensity: INR = 2.5-3.5 PT Coag (PPP) [Time] 12.1 s [facility] Urinalysison 01-26-2022 Bilirubin Urine Negative NEGATIVE [facility] Color, UA Yellow Yellow [facility] Glucose, Ur Negative NEGATIVE [facility] Interpretation and review of laboratory results Abnormal [facility] Ketones Ql (U) Negative NEGATIVE [facility] Leukocyte esterase Test strip Ql (U) Negative NEGATIVE [facility] Nitrite, Urine Negative NEGATIVE [facility] pH, UA 5.5 5 - 8 [facility] Protein, UA Negative NEGATIVE [facility] Specific Raymond, UA 1.037 High 1.005 - 1.03 [facility] Turbidity UA Clear Clear [facility] Urinalysis Comments Microscopic exam not performed based on chemical results unless requested in original order. [facility] Urine Hgb Negative NEGATIVE [facility] Urobilinogen, Urine Normal Normal [facility] Urinalysis, Routineon 2021 Bilirubin, SemiQt,Ur Negative Normal NEG [facility] Comment on above: Performed By: #### U A #### [facility] [address] [place] [address] Pants Busheler: Jelani Liu MD Blood, Urine Negative Normal NEG [facility] Comment on above: Performed By: #### U A #### [facility] [address] [place] [address] Pants Busheler: Jelani Liu MD Clarity (U) Clear Normal CLEAR [facility] Comment on above: Performed By: #### U A #### [facility] [address] [place] [address] Pants Busheler: Jelani Liu MD Color (U) Yellow Normal YEL [facility] Comment on above: Performed By: #### U A #### [facility] Lab [facility] [place] [address] Pants Busheler: Jelani Liu MD Comment Microscopic exam not performed based on chemical results unless requested in Normal [facility] Comment on above: Result Comment: orig inal order. Performed By: #### U A #### [facility] Lab [address] [place] [address] Pants Busheler: Jelani Liu MD Glucose Ql (U) Negative Normal NEG [facility] Comment on above: Performed By: #### U A #### [facility] Lab [address] [place] [address] Pants Busheler: Jelani Liu MD Ketones Ql (U) Negative Normal NEG [facility] Comment on above: Performed By: #### U A #### [facility] Lab [address] [place] [address] Pants Busheler: Jelani Liu MD Leukocyte esterase Test strip Ql (U) Negative Normal NEG [facility] Comment on above: Performed By: #### U A #### [facility] Lab [address] [place] [address] Pants Busheler: Jelani Liu MD Nitrite,Ur Negative Normal NEG [facility] Comment on above: Performed By: #### U A #### [facility] Lab [address] [place] [address] [place] [address] Pants Busheler: Jelani Liu MD PH,Ur 5.5 Normal 5.0-8.0 [facility] Comment on above: Performed By: #### U A #### [facility] Lab [address] [place] [address] Pants Busheler: Jelani Liu MD Protein Ql (U) Negative Normal NEG [facility] Comment on above: Performed By: #### U A #### [facility] Lab [facility] [facility] [place] [address] Pants Busheler: Jelani Liu MD Spec. Raymond,Ur 1.037 High 1.005-1.030 [facility] Comment on above: Performed By: #### U A #### [facility] Lab [address] [place] [address] Pants Busheler: Jelani Liu MD Urobilinogen,Ur Normal Normal NORM [facility] Comment on above: Performed By: #### U A #### [facility] Lab [facility] [place] [address] Pants Busheler: Jelani Liu MD Activated partial thrombopla stin time (aPTT) in platelet poor plasma by coagulation aOrdered By: Dalia Villasenor on 12-29-2021 aPTT Coag (PPP) [Time] 31.0 s 25.1-36.5 [facility] Albumin [Mass/volume] in Ser um or PlasmaOrdered By: Dalia Villasenor on 12-29-2021 Albumin [Mass/Vol] 4.0 g/dL 3.2-5.5 [facility] Albumin [Mass/Vol] 3.5 g/dL 2.9-4.4 [facility] Albumin/Protein.total in 24 hour Urine by ElectrophoresisOrdered By: Dalia Villasenor on 08-01-2022 Albumin Elph (24H U) [Mass fraction] 27.5 % . [facility] Automated erythrocytes count in urine sediment (number/area)Ordered By: Dalia Villasenor on 12-29-2021 RBC Auto (Urine sed) [#/Area] 3-4 [HPF] 0-4 [facility] Automated leukocytes count i n urine sediment (number/area)Ordered By: Dalia Villasenor on 12-29-2021 WBC Auto (Urine sed) [#/Area] None seen [HPF] 0-4 [facility] Basophils Auto (Bld) [#/Vol] Ordered By: Dalia Villasenor on 12-29-2021 Basophils (Bld) [#/Vol] 0.1 10*3/uL 0.0-0.2 [facility] Basophils/100 WBC Auto (Bld) Ordered By: Dalia Villasenor on 12-29-2021 Basophils/100 WBC (Bld) 1.4 % . F [facility] Bilirubin Auto test strip Ql (U)Ordered By: Dalia Villasenor on 12-29-2021 Bilirubin Ql (U) Negative Negative [facility] Blood hemoglobin measurement (mass/volume)Ordered By: Dalia Villasenor on 12-29-2021 Hemoglobin (Bld) [Mass/Vol] 12.2 g/dL 11.8-15.4 [facility] Blood leukocytes automated c ount (number/volume)Ordered By: Dalia Villasenor on 12-29-2021 WBC (Bld) [#/Vol] 6.9 10*3/uL 4.5-11.0 [facility] Borrelia burgdorferi Ab [Int erpretation] in SerumOrdered By: Dalia Villasenor on 12-29-2021 B. burgdorferi Ab (S) [Interp] N/A [facility] Borrelia burgdorferi IgG Ab [Presence] in Serum or Plasma by ImmunoassayOrdered By: Dalia Villasenor on 12-29-2021 B. burgdorferi IgG IA Ql N/A [facility] Borrelia burgdorferi IgG+IgM Ab [Presence] in Serum by ImmunoassayOrdered By: Dalia Villasenor on 12-29-2021 B. burgdorferi IgG+IgM IA Ql (S) Negative Negative [facility] Comment on above: Lyme Antibody Negati ve No laboratory evidence of infection with B. burgdorferi (Lyme disease). Negative results may occur in patients recently infected (less than or equal to 14 days) with B. burgdorferi. If recent infection is suspected, repeat testing on a new sample collected in 7 to 14 days is recommended. Performed at: [facility] [address] [id number] Pants Busheler: Castro Lugo PhD, Phone: [phone] Borrelia burgdorferi IgM Ab [Presence] in Serum or Plasma by ImmunoassayOrdered By: Dalia Villasenor on 12-29-2021 B. burgdorferi IgM IA Ql N/A [facility] C reactive protein [Mass/vol ume] in Serum or PlasmaOrdered By: Dalia Villasenor on 12-29-2021 CRP [Mass/Vol] 1.3 mg/dL 0.0-1.[address] [facility] [address] biopsyOrdered By: Dalia Villasenor on 12-29-2021 CT biopsy 4.5 U/L 3.3-10.3 [facility] Comment on above: Performed at: [facility] [address] [id number] Pants Busheler: Castro Lugo PhD, Phone: [phone] Creatine kinase [Enzymatic a ctivity/volume] in Serum or PlasmaOrdered By: Dalia Villasenor on 12-29-2021 CK [Catalytic activity/Vol] 77 U/L 22-269 [facility] Creatinine and Glomerular fi ltration rate.predicted panel (S/P/Bld)Ordered By: Dalia Villasenor on 12-29-2021 Creatinine [Mass/Vol] 1.14 mg/dL 0.44-1.03 [facility] Dilute Samuel's viper venom timeOrdered By: Dalia Villasenor on 12-29-2021 dRVVT Coag (PPP) [Time] 34.3 s 0.0-47.0 [facility] Eosinophils Auto (Bld) [#/Vo l]Ordered By: Dalia Villasenor on 12-29-2021 Eosinophils (Bld) [#/Vol] 0.1 10*3/uL 0.0-0.45 [facility] Eosinophils/100 WBC Auto (Bl d)Ordered By: Dalia Villasenor on 12-29-2021 Eosinophils/100 WBC (Bld) 1.3 % . [facility] Erythrocyte distribution wid th Auto (RBC) [Ratio]Ordered By: Dalia Villasenor on 12-29-2021 Erythrocyte distribution width (RBC) [Ratio] 17.9 % 11.9-15.3 [facility] Erythrocyte sedimentation ra te by Photometric methodOrdered By: Dalia Villasenor on 12-29-2021 ESR Photometric method (d) [Velocity] 17 mm/hr 0-29 [facility] Estimated glomerular filtrat ion rate (GFR) non- AmericanOrdered By: Dalia Villasenor on 12-29-2021 GFR/1.73 sq M.predicted among non-blacks MDRD (S/P/Bld) [Vol rate/Area] 48 mL/Min [facility] Gamma globulin/Protein.total in 24 hour Urine by ElectrophoresisOrdered By: Dalia Villasenor on 12-29-2021 Gamma globulin Elph (24H U) [Mass fraction] 23.1 % . [facility] Globulin Calc (S) [Mass/Vol] Ordered By: Dalia Villasenor on 12-29-2021 Globulin (S) [Mass/Vol] 2.4 g/dL [facility] Hematocrit Auto (Bld) [Volum e fraction]Ordered By: Dalia Villasenor on 12-29-2021 Hematocrit (Bld) [Volume fraction] 39.0 % 34.0-46.4 [facility] Hepatitis B virus surface Ag [Presence] in Serum or Plasma by ImmunoassayOrdered By: Dalia Villasenor on 12-29-2021 HBV surface Ag IA Ql Negative Negative [facility] [facility] IgA [Mass/volume] in Serum o r PlasmaOrdered By: Dalia Villasenor on 12-29-2021 IgA [Mass/Vol] 137 mg/dL 87-352 [facility] IgG [Mass/volume] in Serum o r PlasmaOrdered By: Dalia Villasenor on 12-29-2021 IgG [Mass/Vol] 524 mg/dL 586-1602 [facility] IgM [Mass/volume] in Serum o r PlasmaOrdered By: Dalia Villasenor on 12-29-2021 IgM [Mass/Vol] 373 mg/dL 26-217 [facility] Immunofixation for UrineOrde red By: Dalia Villasenor on 12-29-2021 Interpretation Immunofixation (U) [Interp] See comment . [facility] Comment on above: No monoclonality det ected. Performed at: - Lab[address] [id number] Pants Busheler: Castro Lugo PhD, Phone: [phone] Ketones Auto test strip (U) [Mass/Vol]Ordered By: Dalia Villasenor on 12-29-2021 Ketones (U) [Mass/Vol] Negative Negative [facility] Laboratory - Chemistry and C hemistry - challengeOrdered By: Dalia Villasenor on 12-29-2021 Cobalamin (Vitamin B12) [Mass/Vol] 193 pg/mL 180-914 [facility] Laboratory - CoagulationOrde red By: Dalia Villasenor on 12-29-2021 PT Coag (PPP) [Time] 10.4 s 9.0-12.9 [facility] Laboratory - Hematology and Cell countsOrdered By: Dalia Villasenor on 12-29-2021 Nucleated RBC/100 WBC (Bld) [Ratio] 0.0 % 0-0.5 [facility] Laboratory - UrinalysisOrder ed By: Dalia Villasenor on 12-29-2021 Hyaline casts LM Ql (Urine sed) 0-8 [LPF] 0-8 [facility] Lupus anticoagulant [Interpr etation] in Platelet poor plasmaOrdered By: Dalia Villasenor on 12-29-2021 Lupus anticoagulant (PPP) [Interp] Comment: . [facility] Comment on above: No lupus anticoagula nt was detected. Performed at: - Lab[address] [id number] P[employer] Busheler: Bharath Linares MD, Phone: [phone] Lymphocytes Auto (Bld) [#/Vo l]Ordered By: Dalia Villasenor on 12-29-2021 Lymphocytes (Bld) [#/Vol] 3.1 10*3/uL 1.00-4.8 [facility] Lymphocytes/100 WBC Auto (Bl d)Ordered By: Dalia Villasenor on 12-29-2021 Lymphocytes/100 WBC (Bld) 44.5 % . [facility] MCH Auto (RBC) [Entitic mass ]Ordered By: Dalia Villasenor on 12-29-2021 MCH (RBC) [Entitic mass] 25.6 pg 24.7-34.3 [facility] MCHC Auto (RBC) [Mass/Vol]Or dered By: Dalia Villasenor on 12-29-2021 MCHC (RBC) [Mass/Vol] 31.4 g/dL 32.0-35.0 [facility] MCV Auto (RBC) [Entitic vol] Ordered By: Dalia Villasenor on 12-29-2021 MCV (RBC) [Entitic vol] 81.7 fL 80-100 F [facility] Monocytes Auto (Bld) [#/Vol] Ordered By: Dalia Villasenor on 12-29-2021 Monocytes (Bld) [#/Vol] 0.8 10*3/uL 0.0-0.8 [facility] Monocytes/100 WBC Auto (Bld) Ordered By: Dalia Villasenor on 12-29-2021 Monocytes/100 WBC (Bld) 11.6 % . [facility] Neutrophils Auto (Bld) [#/Vo l]Ordered By: Dalia Villasenor on 12-29-2021 Neutrophils (Bld) [#/Vol] 2.8 10*3/uL 1.8-7.7 [facility] Neutrophils/100 WBC Auto (Bl d)Ordered By: Dalia Villasenor on 12-29-2021 Neutrophils/100 WBC (Bld) 41.2 % . [facility] No Panel InformationOrdered By: Dalia Villasenor on 12-29-2021 Estimated GFR () 58 mL/Min [facility] Comment on above: GFR estimated refere nce range: According to KDOQI guidelines, <60 ml/min/1.73m2 is sufficient to diagnose a patient with chronic kidney disease. Hepatitis B Core Total Antibody Negative Negative [facility] Comment on above: Performed at: [address] [id number] Pants Busheler: Castro Lugo PhD, Phone: [phone] Hepatitis C Interpretation See comment . [facility] Comment on above: Negative Not infected with HCV, unless recent infection is suspected or other evidence exists to indicate HCV infection. Hepatitis C RNA Quantitative N/A [facility] Creatinine Clearance (Chem N/A [facility] Protein Electrophoresis M-Luis Comment: g/dL Not Observed [facility] Comment on above: ASYMMETRICAL GAMMA Protein Electrophoresis Note See comment . [facility] Comment on above: Protein electrophore sis scan will follow via computer, mail, or principal architectural firm delivery. Performed at: [employer] [id number] Pants Busheler: Castro Lugo PhD, Phone: [phone] Serum Immunofixation Comment: . [facility] Comment on above: Presence of monoclon al protein is unclear at this time. Suggest repeat in 3 to 6 months if clinically indicated. Total Complement (CH50) 60 U/mL >41 F [facility] Comment on above: Age Male Female 2 [...] determine out of range values. Performed at: [employer] [id number] Pants Busheler: Castro Lugo PhD, Phone: [phone] Urine Random Prot Electrophor Note See comment . [facility] Comment on above: Protein electrophore sis scan will follow via computer, mail, or principal architectural firm delivery. Platelet mean volume Auto (B ld) [Entitic vol]Ordered By: Dalia Villasenor on 12-29-2021 Platelet mean volume (Bld) [Entitic vol] 8.9 fL 6.3-10.7 [facility] Platelet poor plasma interna tional normalized ratio (INR) by coagulation assay (relatOrdered By: Dalia Villasenor on 12-29-2021 INR Coag (PPP) [Relative time] 0.9 {INR} [facility] Comment on above: INR Therapeutic Rang [...] Coag (PPP) [Relative time] 34.6 sec 0.0-47.6 [facility] Platelets Auto (Bld) [#/Vol] Ordered By: Dalia Villasenor on 12-29-2021 Platelets (Bld) [#/Vol] 288 10*3/uL 150-450 [facility] Protein Auto test strip (U) [Mass/Vol]Ordered By: Dalia Villasenor on 12-29-2021 Protein (U) [Mass/Vol] Negative Negative [facility] Protein [Mass/volume] in Ser um or PlasmaOrdered By: Dalia Villasenor on 12-29-2021 Protein [Mass/Vol] 6.4 g/dL 6.0-8.5 [facility] Protein [Mass/volume] in Uri neOrdered By: Dalia Villasenor on 12-29-2021 Protein (U) [Mass/Vol] 6.1 mg/dL Not Estab. [facility] Protein.monoclonal/Protein.t otal in 24 hour Urine by ElectrophoresisOrdered By: Dalia Villasenor on 12-29-2021 Protein.monoclonal Elph (24H U) [Mass fraction] Not observed % Not Observed [facility] RBC Auto (Bld) [#/Vol]Ordere d By: Dalia Villasenor on 12-29-2021 RBC (Bld) [#/Vol] 4.77 10*6/uL 3.60-5.00 [facility] Reagin Ab [Presence] in Seru m by RPROrdered By: Dalia Villasenor on 12-29-2021 Reagin Ab RPR Ql (S) Non-Reactive Non Reactive [facility] Comment on above: Performed at: CB - [facility] [address] [id number] Pants Busheler: Castro Lugo PhD, Phone: [phone] Serum globulin measurement ( mass/volume)Ordered By: Dalia Villasenor on 12-29-2021 Globulin (S) [Mass/Vol] 2.9 g/dL 2.2-3.9 [facility] Serum hepatitis B virus surf shellie antibody detectionOrdered By: Dalia Villasenor on 12-29-2021 HBV surface Ab Ql (S) Non-Reactive . [facility] Comment on above: Non Reactive: Incons istent with immunity, less than 10 mIU/mL Reactive: Consistent with immunity, greater than 9.9 mIU/mL Serum homogeneous pattern an tinuclear antibody (PATRICIA) titerOrdered By: Dalia Villasenor on 12-29-2021 Homogenous nuclear Ab pattern (S) [Titer] N/A [facility] Serum nuclear antibody titer Ordered By: Dalia Villasenor on 12-29-2021 Nuclear Ab (S) [Titer] Negative . [facility] Comment on above: Negative <1:80 Borderline 1:80 Positive >1:80 ICAP nomenclature: AC-[id number] For more information about Hep-2 cell patterns use ANApatterns.org, the official website for the International Consensus on Antinuclear Antibody (PATRICIA) Patterns (ICAP). Performed at: CB - [facility] [address] [id number] Pants Busheler: Castro Lugo PhD, Phone: [phone] Serum or plasma alanine schroeder otransferase measurement without P-5'-P (enzymatic activiOrdered By: Dalia Villasenor on 12-29-2021 ALT No additional P-5'-P [Catalytic activity/Vol] 20 U/L 10-60 [facility] Serum or plasma albumin/glob ulin mass ratioOrdered By: Dalia Villasenor on 12-29-2021 Albumin/Globulin [Mass ratio] 1.7 {ratio} [facility] Albumin/Globulin [Mass ratio] 1.2 {ratio} 0.7-1.7 [facility] Serum or plasma alkaline michelle sphatase measurement (enzymatic activity/volume)Ordered By: Dalia Villasenor on 12-29-2021 ALP [Catalytic activity/Vol] 57 U/L 32-92 [facility] Serum or plasma alpha 1 glob ulin measurement by electrophoresis (mass/volume)Ordered By: Dalia Villasenor on 12-29-2021 Alpha 1 globulin Elph [Mass/Vol] 0.2 g/dL 0.0-0.4 [facility] Serum or plasma alpha 2 glob ulin measurement by electrophoresis (mass/volume)Ordered By: Dalia Villasenor on 12-29-2021 Alpha 2 globulin Elph [Mass/Vol] 0.8 g/dL 0.4-1.0 [facility] Serum or plasma aspartate am inotransferase measurement (enzymatic activity/volume)Ordered By: Dalia Villasenor on 12-29-2021 AST [Catalytic activity/Vol] 22 U/L 10-42 [facility] Serum or plasma beta globuli n measurement by electrophoresis (mass/volume)Ordered By: Dalia Villasenor on 12-29-2021 Beta globulin Elph [Mass/Vol] 1.1 g/dL 0.7-1.3 [facility] Serum or plasma calcium lola urement (mass/volume)Ordered By: Dalia Villasenor on 12-29-2021 Calcium [Mass/Vol] 9.7 mg/dL 8.2-10.2 [facility] Serum or plasma chloride catia surement (moles/volume)Ordered By: Dalia Villasenor on 12-29-2021 Chloride [Moles/Vol] 101 mmol/L 95-114 [facility] Serum or plasma chromatin an tibody assay (units/volume)Ordered By: Dalia Villasenor on 12-29-2021 Chromatin Ab Qn <0.2 AI 0.0-0.9 [facility] Comment on above: Performed at: [facility] [address] [id number] Pants Busheler: Castro Lugo PhD, Phone: [phone] Serum or plasma complement C 3 measurement (mass/volume)Ordered By: Dalia Villasenor on 12-29-2021 Complement C3 [Mass/Vol] 133 mg/dL 82-167 [facility] Comment on above: Performed at: CB - [facility] [address] [id number] Pants Busheler: Castro Lugo PhD, Phone: [phone] Serum or plasma complement C 4 measurement (mass/volume)Ordered By: Dalia Villasenor on 12-29-2021 Complement C4 [Mass/Vol] 27 mg/dL 12-38 [facility] Serum or plasma gamma globul in measurement by electrophoresis (mass/volume)Ordered By: Dalia Villasenor on 12-29-2021 Gamma globulin Elph [Mass/Vol] 0.7 g/dL 0.4-1.8 [facility] Serum or plasma glucose lola urement (mass/volume)Ordered By: Dalia Villasenor on 12-29-2021 Glucose [Mass/Vol] 101 mg/dL 70-100 [facility] Comment on above: ADA recommended refe rence [...] IA [Rel units/Vol] 0.1 s/co ratio 0.0-0.9 [facility] Serum or plasma potassium me asurement (moles/volume)Ordered By: Dalia Villasenor on 12-29-2021 Potassium [Moles/Vol] 4.4 mmol/L 3.5-5.1 [facility] Serum or plasma sodium measu rement (moles/volume)Ordered By: Dalia Villasenor on 12-29-2021 Sodium [Moles/Vol] 137 mmol/L 136-146 [facility] Serum or plasma thyroglobuli n antibody assay (units/volume)Ordered By: Dalia Villasenor on 12-29-2021 Thyroglobulin Ab Qn [IU]/mL 0.0-0.9 [facility] Comment on above: Thyroglobulin Antibo dy measured by Percy Kenny Methodology Performed at: CB - [facility] [address] [id number] Pants Busheler: Castro Lugo PhD, Phone: [phone] Serum or plasma thyroperoxid ase antibody assay (units/volume)Ordered By: Dalia Villasenor on 12-29-2021 TPO Ab Qn 28 [IU]/mL 0-34 [facility] Comment on above: Performed at: [address] [id number] Pants Busheler: Castro Lugo PhD, Phone: [phone] Serum or plasma total biliru bin measurement (mass/volume)Ordered By: Dalia Villasenor on 12-29-2021 Bilirubin [Mass/Vol] 0.5 mg/dL 0.3-1.2 [facility] Serum or plasma total carbon dioxide measurement (moles/volume)Ordered By: Dalia Villasenor on 12-29-2021 CO2 [Moles/Vol] 23.4 mmol/L 22.0-30.0 [facility] Serum or plasma urea nitroge n measurement (mass/volume)Ordered By: Dalia Villasenor on 12-29-2021 Urea nitrogen [Mass/Vol] 8 mg/dL 9-23 [facility] Squamous epithelial cells de tection in urine sediment by light microscopyOrdered By: Dalia Villasenor on 12-29-2021 Epithelial cells.squamous LM Ql (Urine sed) None seen [HPF] 0-2 [facility] TSH DL <= 0.005 mIU/L QnOrde red By: Dalia Villasenor on 12-29-2021 TSH Qn 1.83 m[IU]/L 0.45-5.33 [facility] TT plasOrdered By: Dalia akers on 12-29-2021 Thrombin time Coag (PPP) [Time] 19.1 sec 0.0-23.0 [facility] Thyroxine (T4) free [Mass/vo lume] in Serum or PlasmaOrdered By: Dalia Villasenor on 12-29-2021 Free T4 [Mass/Vol] 0.98 ng/dL 0.61-1.12 [facility] Urine alpha 1 globulin/total protein by electrophoresisOrdered By: Dalia Villasenor on 12-29-2021 Alpha 1 globulin Elph (U) [Mass fraction] 3.9 % . [facility] Urine alpha 2 globulin/total protein ratio by electrophoresisOrdered By: Dalia Villasenor on 12-29-2021 Alpha 2 globulin Elph (U) [Mass fraction] 19.7 % . [facility] Urine appearanceOrdered By: Dalia Villasenor on 12-29-2021 Appearance (U) Clear Clear [facility] Urine bacteria detection by automated methodOrdered By: Dalia Villasenor on 12-29-2021 Bacteria Auto Ql (U) None seen None Seen [facility] Urine beta globulin measurem ent by electrophoresis (mass/volume)Ordered By: Dalia Villasenor on 12-29-2021 Beta globulin Elph (U) [Mass/Vol] 25.8 % . [facility] Urine colorOrdered By: Parmjit Villasenor on 12-29-2021 Color (U) Yellow Yellow [facility] Urine glucose measurement by automated test strip (mass/volume)Ordered By: Dalia Villasenor on 12-29-2021 Glucose Auto test strip (U) [Mass/Vol] Normal mg/dL Normal [facility] Urine hemoglobin detection b y automated test stripOrdered By: Dalia Villasenor on 12-29-2021 Hemoglobin Auto test strip Ql (U) Negative Negative [facility] Urine leukocyte esterase det ection by automated test stripOrdered By: Dalia Villasenor on 12-29-2021 Leukocyte esterase Auto test strip Ql (U) Negative Negative [facility] Urine nitrite detection by a utomated test stripOrdered By: Dalia Villasenor on 12-29-2021 Nitrite Auto test strip Ql (U) Negative Negative [facility] Urobilinogen Auto test strip (U) [Mass/Vol]Ordered By: Dalia Villasenor on 12-29-2021 Urobilinogen (U) [Mass/Vol] Normal mg/dL Normal [facility] aPTT.lupus sensitive (LA scr een)Ordered By: Dalia Villasenor on 12-29-2021 aPTT.lupus sensitive Coag (PPP) [Time] 31.9 sec 0.0-51.9 [facility] aPTT.lupus sensitive/aPTT.marcial pus sensitive W excess phospholipid (screen to confirm raOrdered By: Dalia Villasenor on 12-29-2021 aPTT.lupus sensitive/aPTT.lupus sensitive W excess phospholipid Coag (PPP) [Ratio] 1.17 Ratio 0.00-1.34 [facility] pH Auto test strip (U)Ordere d By: Dalia Villasenor on 12-29-2021 pH (U) 1.020 [pH] 1.001-1.030 [facility] pH (U) 6.5 [pH] 5.0-9.0 [facility] CREATININEon 12-26-2021 Creatinine [Mass/Vol] 1.20 mg/dL Critically high 0.55-1.02 [facility] Comment on above: Performed By: #### C HUMBERTO #### [facility] [address] [address] [address] Barrington Gomez EGFR-AF LIBYAN 55 mL/min/1.73m2 Critically low >=60 [facility] Comment on above: Performed By: #### C HUMBERTO #### [facility] [address] [address] [address] Barrington Gomez EGFR-NON AF LIBYAN 45 mL/min/1.73m2 Critically low >=60 [facility] Comment on above: Performed By: #### C HUMBERTO #### [facility] [address] [address] [address] ABD/PELV W CONon [...] Normal [facility] CULTURE URINEon 11-28-2021 CULTURE URINE Culture Observations : No growth Normal [facility] Comment on above: Performed By: #### U AMIC #### [facility] [address] [place] [address] Dr. Barrington Gomez UA RANDOM W/MICROSCOPICon BACTERIA TRACE Abnormal NONE SEEN [facility] Comment on above: Performed By: #### U AMIC #### [facility] [address] [place] [address] Dr. Barrington Gomez Bilirubin Ql (U) Negative Normal NEGATIVE [facility] Comment on above: Performed By: #### U AMIC #### [facility] [address] [place] [address] Dr. Barrington Gomez CAST SEEN Abnormal NONE SEEN [facility] Comment on above: Performed By: #### U AMIC #### [facility] [address] [place] [address] Dr. Barrington Gomez Clarity (U) CLEAR Normal CLEAR [facility] Comment on above: Performed By: #### U AMIC #### [facility] [address] [place] [address] Dr. Barrington Gomez Color (U) YELLOW Normal YELLOW [facility] Comment on above: Performed By: #### U AMIC #### [facility] [address] [place] [address] Dr. Barrington Gomez Crystals LM Nom (Urine sed) NONE SEEN Normal NONE SEEN [facility] Comment on above: Performed By: #### U AMIC #### [facility] [address] [address] [address] Barrington Gomez Epithelial cells LM Ql (Urine sed) RARE Normal NONE SEEN /RARE [facility] Comment on above: Performed By: #### U AMIC #### [facility] [address] [address] [address] Barrington Gomez Glucose Ql (U) Negative Normal NEGATIVE [facility] Comment on above: Performed By: #### U AMIC #### [facility] [address] [address] [address] Barrington Gomez Hemoglobin Ql (U) Negative Normal NEGATIVE [facility] Comment on above: Performed By: #### U AMIC #### [facility] [address] [place] [address] Dr. Barrington Gomez Ketones Ql (U) Negative Normal NEGATIVE [facility] Comment on above: Performed By: #### U AMIC #### [facility] [address] [address] [address] Barrington Gomez LEUKOCYTES Negative Normal NEGATIVE [facility] Comment on above: Performed By: #### U AMIC #### [facility] [address] [place] [address] Dr. Barrington Gomez MUCOUS SMALL Abnormal NONE SEEN [facility] Comment on above: Performed By: #### U AMIC #### [facility] [address] [address] [address] Barrington Gomez Nitrite Ql (U) Negative Normal NEGATIVE [facility] Comment on above: Performed By: #### U AMIC #### [facility] [address] [address] [address] Barrington Gomez pH (U) 5.5 [pH] Normal 5-9 [facility] Comment on above: Performed By: #### U AMIC #### [facility] [address] [address] [address] Barrington Gomez RBC NONE SEEN Abnormal 0-2 [facility] Comment on above: Performed By: #### U AMIC #### [facility] [address] [address] [address] Barrington Gomez SPEC GRAVITY >=1.030 Abnormal 1.005-<=1.0 25 [facility] Comment on above: Performed By: #### U AMIC #### [facility] [address] [address] [address] Barrington Gomez UA PROTEIN Negative Normal NEGATIVE/ TRACE [facility] Comment on above: Performed By: #### U AMIC #### [facility] [address] [address] [address] Barrington Gomez Urobilinogen Qn (U) 0.2 {Antionette'U}/dL Normal 0.2 - 1. 0 [facility] Comment on above: Performed By: #### U AMIC #### [facility] [address] [address] [address] Barrington Gomez WBC 0-2 Abnormal NONE SEEN [facility] Comment on above: Performed By: #### U AMIC #### [facility] [address] [address] [address] Barrington Gomez US KIDNEYS BLADDERon 022 [...] FELISHA BARROW Date: 2021-11-21 15:46 Normal [facility] UA DIP, URINE (POC)on 2021 BILIRUBIN UA (POCT) Negative Negative [facility] CLARITY UA (POCT) Clear [facility] COLOR UA (POCT) Yellow [facility] GLUCOSE UA (POCT) Negative Negative mg/dL [facility] HEMOGLOBIN/BLOOD UA (POCT) Negative Negative [facility] KETONE UA (POCT) Negative Negative mg/dL [facility] LEUKOCYTES UA (POCT) Negative [facility] ([facility]CT) Negative Negative [facility] PH UA (POCT) 5.0 4.5 - 8.0 [facility] Protein Ql (U) Negative Negative mg/dL [facility] SPECIFIC GRAVITY UA (POCT) 1.020 1.005 - 1.030 [facility] UROBILINOGEN UA (POCT) 0.2 E.U./dL Kelly l E.U./dL [facility] CULTURE URINEon 11-14-2021 CULTURE URINE Culture Observations : GREATER THAN TWO ORGANISMS PRESENT. PLEASE RESUBMIT CLEAN CATCH MID-STREAM URINE IF CLINICALLY INDICATED. Normal [facility] Comment on above: Performed By: #### U AMIC #### [facility] [address] [place] [address] Dr. Barrington Gomez UA RANDOM W/MICROSCOPICon BACTERIA NONE SEEN Normal NONE SEEN [facility] Comment on above: Performed By: #### U AMIC #### [facility] [address] [place] [address] Dr. Barrington Gomez Bilirubin Ql (U) Negative Normal NEGATIVE [facility] Comment on above: Performed By: #### U AMIC #### [facility] [address] [place] [address] Dr. Barrington Gomez CAST NONE SEEN Normal NONE SEEN [facility] Comment on above: Performed By: #### U AMIC #### [facility] [address] [place] [address] Dr. Barrington Gomez Clarity (U) SL CLOUDY Abnormal CLEAR [facility] Comment on above: Performed By: #### U AMIC #### [facility] [address] [address] [address] Barrington Gomez Color (U) YELLOW Normal YELLOW [facility] Comment on above: Performed By: #### U AMIC #### [facility] [address] [place] [address] Dr. Barrington Gomez Crystals LM Nom (Urine sed) NONE SEEN Normal NONE SEEN [facility] Comment on above: Performed By: #### U AMIC #### [facility] [address] [address] [address] Barrington Gomez Epithelial cells LM Ql (Urine sed) RARE Normal NONE SEEN /RARE [facility] Comment on above: Performed By: #### U AMIC #### [facility] [address] [address] [address] Barrington Gomez Glucose Ql (U) Negative Normal NEGATIVE [facility] Comment on above: Performed By: #### U AMIC #### [facility] [address] [address] [address] Barrington Gomez Hemoglobin Ql (U) Negative Normal NEGATIVE [facility] Comment on above: Performed By: #### U AMIC #### [facility] [facility] [address] [address] [address] Barrington Gomez Ketones Ql (U) Negative Normal NEGATIVE [facility] Comment on above: Performed By: #### U AMIC #### [facility] [address] [address] [address] Barrington Gomez LEUKOCYTES Negative Normal NEGATIVE [facility] Comment on above: Performed By: #### U AMIC #### [facility] [address] [address] [address] Barrington Gomez MUCOUS TRACE Abnormal NONE SEEN [facility] Comment on above: Performed By: #### U AMIC #### [facility] [address] [address] [address] Barrington Gomez Nitrite Ql (U) Negative Normal NEGATIVE [facility] Comment on above: Performed By: #### U AMIC #### [facility] [address] [address] [address] Barrington Gomez pH (U) 5.5 [pH] Normal 5-9 [facility] Comment on above: Performed By: #### U AMIC #### [facility] [address] [place] [address] Dr. Barrington Gomez RBC 0-2 Normal 0-2 [facility] Comment on above: Performed By: #### U AMIC #### [facility] [address] [address] [address] Barrington Gomez SPEC GRAVITY 1.025 Normal 1.005-<=1.0 25 [facility] Comment on above: Performed By: #### U AMIC #### [facility] [address] [place] [address] Dr. Barrington Gomez UA PROTEIN Negative Normal NEGATIVE/ TRACE The [facility] Comment on above: Performed By: #### U AMIC #### [facility] [address] [place] [address] Dr. Barrington Gomez Urobilinogen Qn (U) 0.2 {Antionette'U}/dL Normal 0.2 - 1. 0 [facility] Comment on above: Performed By: #### U AMIC #### [facility] [address] [place] [address] Dr. Barrington Gomez WBC NONE SEEN Normal NONE SEEN The [facility] Comment on above: Performed By: #### U AMIC #### [facility] [address] [place] [address] Dr. Barrington Gomez CREATININEon 11-04-2021 Creatinine [Mass/Vol] 1.06 mg/dL Critically high 0.55-1.02 [facility] Comment on above: Performed By: #### G ENTR, CREA #### [facility] [address] [place] [address] Dr. Barrington Gomez EGFR-AF LIBYAN >60 Normal >=60 The [facility] Comment on above: Performed By: #### G ENTR, CREA #### [facility] [address] [place] [address] Dr. Barrington Gomez EGFR-NON AF LIBYAN 52 mL/min/1.73m2 Critically low >=60 The [facility] Comment on above: Performed By: #### G ENTR, CREA #### [facility] [address] [place] [address] Dr. Barrington Gomez GENTAMICIN RANDOMon 11-05-19 GENTAMICIN 5.2 ug/mL Normal The [facility] Comment on above: Performed By: #### G ENTR, CREA #### [facility] [address] [place] [address] Dr. Barrington Gomez CULTURE URINEon 10-22-2021 CULTURE [...] Normal The [facility] Comment on above: Performed By: #### U [facility] #### [facility] [address] [place] [address] Dr. Barrington Gomez MRI FOOT LT WO [...] ligament seen on the edge of the [id number] for this study. There is no cystic [...] Normal The [facility] UA RANDOM W/MICROSCOPICon BACTERIA SMALL Abnormal NONE SEEN The [facility] Comment on above: Performed By: #### U AMIC #### [facility] [address] [place] [address] Dr. Barrington Gomez Bilirubin Ql (U) Negative Normal NEGATIVE [facility] Comment on above: Performed By: #### U AMIC #### [facility] [address] [address] [address] Barrington Gomez CAST SEEN Abnormal NONE SEEN The [facility] Comment on above: Performed By: #### U AMIC #### [facility] [address] [address] [address] Barrington Gomez Clarity (U) CLEAR Normal CLEAR The [facility] Comment on above: Performed By: #### U AMIC #### [facility] [address] [address] [address] Barrington Gomez Color (U) DK. ORANGE Abnormal YELLOW The [facility] Comment on above: Performed By: #### U AMIC #### [facility] [address] [address] [address] Barrington Gomez Crystals LM Nom (Urine sed) NONE SEEN Normal NONE SEEN [facility] Comment on above: Performed By: #### U AMIC #### [facility] [address] [address] [address] Barrington Gomez Epithelial cells LM Ql (Urine sed) FEW Abnormal NONE SEEN /RARE The [facility] Comment on above: Performed By: #### U AMIC #### [facility] [address] [address] [address] Barrington Gomez Glucose Ql (U) Negative Normal NEGATIVE [facility] Comment on above: Performed By: #### U AMIC #### [facility] [address] [address] [address] Barrington Gomez Hemoglobin Ql (U) Negative Normal NEGATIVE The [facility] Comment on above: Performed By: #### U AMIC #### [facility] [address] [address] [address] Barrington Gomez HYALINE CAST FEW Normal [facility] Comment on above: Performed By: #### U AMIC #### [facility] [address] [address] [address] Barrington Gomez Ketones Ql (U) TRACE Abnormal NEGATIVE [facility] Comment on above: Performed By: #### U AMIC #### [facility] [address] [address] [address] Barrington Gomez LEUKOCYTES TRACE Abnormal NEGATIVE [facility] Comment on above: Performed By: #### U AMIC #### [facility] [address] [address] [address] Barrington Gomez MUCOUS NONE SEEN Normal NONE SEEN [facility] Comment on above: Performed By: #### U AMIC #### [facility] [address] [address] [address] Barrington Gomez Nitrite Ql (U) Negative Normal NEGATIVE [facility] Comment on above: Performed By: #### U AMIC #### [facility] [address] [place] [address] Dr. Barrington Gomez pH (U) 5.0 [pH] Normal 5-9 [facility] Comment on above: Performed By: #### U AMIC #### [facility] [address] [place] [address] Dr. Barrington Gomez RBC 0-2 Normal 0-2 [facility] Comment on above: Performed By: #### U AMIC #### [facility] [address] [place] [address] Dr. Barrington Gomez SPEC GRAVITY >=1.030 Abnormal 1.005-<=1.0 25 [facility] Comment on above: Performed By: #### U AMIC #### [facility] [address] [place] [address] Dr. Barrington Gomez UA PROTEIN Negative Normal NEGATIVE/ TRACE The [facility] Comment on above: Performed By: #### U AMIC #### [facility] [address] [place] [address] Dr. Barrington Gomez Urobilinogen Qn (U) 0.2 {Antionette'U}/dL Normal 0.2 - 1. 0 [facility] Comment on above: Performed By: #### U AMIC #### [facility] [address] [place] [address] Dr. Barrington Gomez WBC 5-10 Abnormal NONE SEEN The [facility] Comment on above: Performed By: #### U AMIC #### [facility] [address] [place] [address] Dr. Barrington Gomez C-Reactive Proteinon 022 CRP IV <0.3 Normal [facility] Comment on above: Performed By: #### E SR, CRP, CBC #### [facility] [address] [place], [place] [id number] Complete Blood Counton 09-22 Erythrocyte distribution width (RBC) [Ratio] 17.2 % High 11.0-15.0 [facility] Specialist Comment on above: Performed By: #### E SR, CRP, CBC #### [facility] [address] [place], [place] [id number] Hematocrit (Bld) [Volume fraction] 41.5 % Normal 35.0-47.0 [facility] Specialist Comment on above: Performed By: #### E SR, CRP, CBC #### [facility] [address] [place], [place] [id number] Hemoglobin (Bld) [Mass/Vol] 12.5 g/dL Normal 11.6-15.5 [facility] Specialist Comment on above: Performed By: #### E SR, CRP, CBC #### [facility] [address] [place], [place] [id number] MCH (RBC) [Entitic mass] 24.7 pg Low 27.0-33.0 [facility] Specialist Comment on above: Performed By: #### E SR, CRP, CBC #### [facility] [address] [place], [place] [id number] MCHC (RBC) [Mass/Vol] 30.1 g/dL Low 32.0-36.0 [facility] Specialist Comment on above: Performed By: #### E SR, CRP, CBC #### [facility] [address] [place], [place] [id number] MCV (RBC) [Entitic vol] 82 fL Normal 80-100 [facility] Specialist Comment on above: Performed By: #### E SR, CRP, CBC #### [facility] [address] [place], [place] [id number] Platelet mean volume (Bld) [Entitic vol] 10.40 fL Normal 7.50-12.50 [facility] Specialist Comment on above: Performed By: #### E SR, CRP, CBC #### [facility] [address] [place], [place] [id number] Platelets (Bld) [#/Vol] 317 10*3/uL Normal 140-400 [facility] Specialist Comment on above: Performed By: #### E SR, CRP, CBC #### [facility] [address] [place], [place] [id number] RBC (Bld) [#/Vol] 5.07 10*6/uL Normal 3.90-5.20 [facility] Personal Carer Comment on above: Performed By: #### E SR, CRP, CBC #### [facility] [address] [place], [place] [id number] RDW-SD 50.8 fL High 37.0-50.0 [facility] Personal Carer Comment on above: Performed By: #### E SR, CRP, CBC #### [facility] [address] [place], [place] [id number] WBC (Bld) [#/Vol] 9.2 10*3/uL Normal 3.8-11.0 [facility] Personal Carer Comment on above: Performed By: #### E SR, CRP, CBC #### [facility] [address] [place], [place] [id number] RBC Sedimentation Rateon ESR (Bld) [Velocity] 10.00 mm/h Normal 0.00-30.00 [facility] Personal Care[facility] Comment on above: Performed By: #### E SR, CRP, CBC #### [facility] [address] [place], [place] [id number] Vital Signs Date Time Vital Sign Value Performing Clinician Facility 07-12-2023 09:18-0500 Body height 162.6 cm Jr. Stepanic DO Work Phone: [facility] 07-12-2023 09:18-0500 Body mass index (BMI) [Ratio] 42.91 kg/m2 Jr. Stepanic DO Work Phone: [facility] 07-12-2023 09:18-0500 Body weight 113.4 kg Jr. Stepanic DO Work Phone: [facility] 10-10-2022 15:14-0400 Body temperature 97.88 [degF] Rocael Wayne [facility] 10-10-2022 15:14-0400 Diastolic blood pressure 92 mm[Hg] Rocael Wayne [facility] 10-10-2022 15:14-0400 Heart rate 89 /min Rocael Wayne [facility] 10-10-2022 15:14-0400 Respiratory rate 16 /min Rocael Wayne [facility] 10-10-2022 15:14-0400 SaO2% (BldA) [Mass fraction] 99 % Rocael Wayne [facility] 10-10-2022 15:14-0400 Systolic blood pressure 145 mm[Hg] Rocael Wayne [facility] 10-07-2022 10:04-0400 Body height 162.6 cm Jose Bryant MD Work Phone: [facility] 10-07-2022 10:04-0400 Body temperature 97.39 [degF] Jose Bryant MD Work Phone: [facility] 10-07-2022 10:04-0400 Body weight 108.41 kg Jose Bryant MD Work Phone: [facility] 10-07-2022 10:04-0400 Diastolic blood pressure 85 mm[Hg] Jose Bryant MD Work Phone: [facility] 10-07-2022 10:04-0400 Heart rate 83 /min Jose Bryant MD Work Phone: [facility] 10-07-2022 10:04-0400 Respiratory rate 16 /min Jose Bryant MD Work Phone: [facility] 10-07-2022 10:04-0400 SaO2% (BldA) [Mass fraction] 98 % Jose Bryant MD Work Phone: [facility] 10-07-2022 10:04-0400 Systolic blood pressure 148 mm[Hg] Jose Bryant MD Work Phone: [facility] 06-10-2022 11:00-0500 Body height 162.6 cm Jose Bryant MD Work Phone: [facility] 06-10-2022 11:00-0500 Body temperature 97.2 [degF] Jose Bryant MD Work Phone: [facility] 06-10-2022 11:00-0500 Body weight 105.87 kg Jose Bryant MD Work Phone: [facility] 06-10-2022 11:00-0500 Diastolic blood pressure 87 mm[Hg] Jose Bryant MD Work Phone: [facility] 06-10-2022 11:00-0500 Heart rate 73 /min Jose Bryant MD Work Phone: [facility] 06-10-2022 11:00-0500 Respiratory rate 16 /min Jose Bryant MD Work Phone: [facility] 06-10-2022 11:00-0500 SaO2% (BldA) [Mass fraction] 98 % Jose Bryant MD Work Phone: [facility] 06-10-2022 11:00-0500 Systolic blood pressure 152 mm[Hg] Jose Bryant MD Work Phone: [facility] 02-17-2022 11:36-0400 Body temperature 98.4 [degF] Quique Mojica MD Work Phone: [facility] 02-17-2022 11:36-0400 Diastolic blood pressure 56 mm[Hg] Quique Mojica MD Work Phone: [facility] 02-17-2022 11:36-0400 Heart rate 96 /min Quique Mojica MD Work Phone: [facility] 02-17-2022 11:36-0400 Respiratory rate 16 /min Quique Mojica MD Work Phone: [facility] 02-17-2022 11:36-0400 SaO2% (BldA) [Mass fraction] 93 % Quique Mojica MD Work Phone: [facility] [employer] 02-17-2022 11:36-0400 Systolic blood pressure 117 mm[Hg] Quique Mojica MD Work Phone: [facility] [employer] 02-16-2022 10:32-0400 Body height 162.6 cm Quique Mojica MD Work Phone: [facility] [employer] 02-16-2022 10:32-0400 Body mass index (BMI) [Ratio] 40.34 kg/m2 Quique Mojica MD Work Phone: [facility] [employer] 02-16-2022 10:32-0400 Body weight 106.59 kg Quique Mojica MD Work Phone: [facility] [employer] 01-26-2022 07:54-0400 Body height 162.6 cm Sta 1 [facility] [employer] 01-26-2022 07:54-0400 Body mass index (BMI) [Ratio] 40.34 kg/m2 Sta 1 [employer] 01-26-2022 07:54-0400 Body temperature 97.5 [degF] Sta 1 [facility] [employer] 01-26-2022 07:54-0400 Body weight 106.59 kg Sta 1 [facility] [employer] 01-26-2022 07:54-0400 Diastolic blood pressure 84 mm[Hg] Sta 1 [facility] [employer] 01-26-2022 07:54-0400 Heart rate 85 /min Sta 1 [facility] [employer] 01-26-2022 07:54-0400 Respiratory rate 16 /min Sta 1 [facility] [employer] 01-26-2022 07:54-0400 SaO2% (BldA) [Mass fraction] 98 % Sta 1 [facility] [employer] 01-26-2022 07:54-0400 Systolic blood pressure 133 mm[Hg] Sta 1 [facility] [employer] 11-20-2021 09:35-0400 Body temperature 97.3 [degF] Dallas Lombardo MD Work Phone: [facility] 11-20-2021 09:35-0400 Body weight 104.33 kg Dallas Lombardo MD Work Phone: [facility] 11-20-2021 09:35-0400 Diastolic blood pressure 78 mm[Hg] Dallas Lombardo MD Work Phone: [facility] 11-20-2021 09:35-0400 Heart rate 95 /min Dallas Lombardo MD Work Phone: [facility] 11-20-2021 09:35-0400 Systolic blood pressure 120 mm[Hg] Dallas Lombardo MD Work Phone: [facility] Encounters Encounter Date Encounter Type Care Provider Facility Start: 07-12-2023 End: 07-12-2023 ambulatory Jose Bryant MD Work Phone: [facility] Start: 07-12-2023 Chart abstracting Jr. Lenny Pedro DO Work Phone: [facility] Start: 07-12-2023 Patient encounter procedure Jose Bryant MD Work Phone: Hematology/Oncology Comment on above: Next appointment Start: 07-12-2023 Telephone encounter Martha Murrell Hematology/Oncology Comment on above: Appointment Start: 07-12-2023 End: 07-12-2023 Office outpatient visit 25 minutes Jr. Lenny Pedro DO Work Phone: [facility] Comment on above: Primary osteoarthrit is of left hip (Primary Dx); Limb weakness; Numbness; Paresthesia; Pain in extremity, unspecified extremity Start: 07-08-2023 End: 07-08-2023 ambulatory RICARDO M HOY Facility:[facility] Start: 07-05-2023 End: 07-05-2023 ambulatory RICARDO M HOY Facility:[facility] Start: 06-24-2023 End: 06-24-2023 ambulatory RICARDO M HOY Facility:[facility] Start: 06-21-2023 End: 06-22-2023 ambulatory DALIA VIGIL Not Available Start: 04-01-2023 ambulatory Jose reagan MD Work Phone: Hematology/Oncology Comment on above: Cat Scan Start: 03-31-2023 End: 03-31-2023 ambulatory JOSE BRYANT Facility:[facility] Start: 02-22-2023 End: 02-22-2023 ambulatory Ricardo Hooper Facility:[facility] Start: 02-22-2023 End: 02-22-2023 ambulatory MD Ricardo Hooper Work Phone: [facility] Work Phone: Start: 02-22-2023 End: 02-22-2023 Patient encounter procedure MD Ricardo Hooper Work Phone: [facility] Work Phone: Start: 01-11-2023 End: 01-12-2023 Evaluation and management of inpatient [facility] Start: 12-21-2022 End: 12-26-2022 ambulatory [facility] Start: 10-10-2022 End: 10-10-2022 Emergency department patient visit Rocael Wayne Facility:[facility] Start: 10-10-2022 End: 10-10-2022 Emergency department patient visit Rocael Wayne [facility] Start: 10-08-2022 End: 10-08-2022 ambulatory LEOBARDO SAAVEDRA . Facility: Start: 10-07-2022 End: 10-07-2022 ambulatory JOSE BRYANT Facility:[facility] Start: 10-07-2022 End: 10-07-2022 Office outpatient [...] Appointment; Results Start: 02-16-2022 End: 02-17-2022 ambulatory [facility] Start: 02-16-2022 End: 02-17-2022 Subsequent hospital visit by physician Quique Mojica MD Work Phone: [facility] Comment on above: Lumbar stenosis with neurogenic claudication (Primary Dx) Start: 01-26-2022 End: 01-31-2022 ambulatory [facility] Start: 01-26-2022 End: 01-30-2022 Subsequent hospital visit by physician Brandon Valladares Rm 1 [facility] PRE-ADMIT TEST[facility] Start: 12-29-2021 End: 12-29-2021 Patient encounter procedure MD Ricardo Hooper Work Phone: [facility] [address] Start: 12-26-2021 End: 12-27-2021 [...] Procedure Procedure Detail Performing Clinician Start: 02-22-2023 End: 02-22-2023 Screening mammography of bilateral breasts MD Ricardo Hooper Work [...] total Quique Mojica MD Work Phone: Start: 06-23-2022 Urnls dip stick/tabl et rgnt auto w/o [...] DTaP/Tdap/Td vaccine (2 - Td or Tdap) [facility] Start: 07-29-2030 Urine microalbumin profile [facility] Start: 07-05-2026 Diabetes Screening Diabetes Screenin g [facility] Start: 03-31-2026 Diabetes Screening Diabetes Screenin g [facility] Start: 10-07-2025 DIABETES SCREEN DIABETES SCREEN [facility] Start: 06-10-2025 DIABETES SCREEN DIABETES SCREEN [facility] Start: 04-09-2025 DIABETES SCREEN DIABETES SCREEN [facility] Start: 12-18-2024 Lipid 1996 panel - Serum or Plasma Lipid Screening [facility] Start: 12-18-2024 Lipid [address] Lipid Screening [facility] Start: 12-18-2024 LIPID SCREEN LIPID SCREEN [facility] Start: 07-10-2024 DIABETES SCREEN DIABETES SCREEN [facility] Start: 02-23-2024 Screening for malign ant neoplasm of breast Mammogram [facility] Start: 11-15-2023 End: 11-15-2023 Patient encounter procedure 11/15/2023 9:45 AM EDT [facility] [address] [place] [id number] Enmanuel Burton, DO [address] [place] [address] [facility] Start: 08-09-2023 End: 08-09-2023 Patient encounter procedure 08/09/2023 8:45 AM EDT Office Visit [facility] [address] [place] [address] Jr. Lenny Pedro, DO [address] [place] [address] [facility] Start: 07-30-2023 End: 10-29-2023 CBC W Auto Differential panel - Blood CBC + DIFF Lab Routine Thrombocytopenia (HCC) Lymphocytosis Mediastinal lymphadenopathy Expected: 07/30/2023, Expires: 10/29/2023 [facility] Work Phone: Comment on above: Expected: 07/30/2023 , Expires: 10/29/2023 Start: 07-30-2023 End: 10-29-2023 Comprehensive metabolic 2000 panel - Serum or Plasma COMP METABOLIC PANEL Lab Routine Thrombocytopenia (HCC) Lymphocytosis Mediastinal lymphadenopathy Expected: 07/30/2023, Expires: 10/29/2023 [facility] Work Phone: Comment on above: Expected: 07/30/2023 , Expires: 10/29/2023 Start: 07-30-2023 End: 10-29-2023 FLOW CYTOMETRY FOR LEUKEMIA/LYMPHOMA (FCLL) FLOW CYTOMETRY FOR LEUKEMIA/LYMPHOMA (FCLL) Lab Routine Thrombocytopenia (HCC) Lymphocytosis Mediastinal lymphadenopathy Expected: 07/30/2023, Expires: 10/29/2023 [facility] Work Phone: Comment on above: Expected: 07/30/2023 , Expires: 10/29/2023 Start: 07-30-2023 End: 10-29-2023 Lactate dehydrogenase [Enzymatic activity/volume] in Serum or Plasma LD LACTATE DEHYDRO Lab Routine Thrombocytopenia (HCC) Lymphocytosis Mediastinal lymphadenopathy Expected: 07/30/2023, Expires: 10/29/2023 [facility] Work Phone: Comment on above: Expected: 07/30/2023 , Expires: 10/29/2023 Start: 07-12-2023 End: 07-12-2024 EMG AND NERVE CONDUCTION STUDY EMG AND NERVE CONDUCTION STUDY Neurology Routine Limb weakness Numbness Paresthesia Pain in extremity, unspecified extremity Expected: 07/12/2023 (Approximate), Expires: 07/12/2024 [facility] Work Phone: Comment on above: Expected: 07/12/2023 (Approximate), Expires: 07/12/2024 Start: 07-12-2023 End: 07-12-2024 RF Guidance for injection of Joint FL guided injection hip left Imaging Routine Primary osteoarthritis of left hip Expected: 07/12/2023 (Approximate), Expires: 07/12/2024 [facility] Comment on above: Expected: 07/12/2023 (Approximate), Expires: 07/12/2024 Start: 07-12-2023 End: 07-12-2023 Patient encounter procedure 07/12/2023 8:45 AM EST Office Visit [facility] [address] [place] [address] Jr. Lenny Pedro, DO [address] [facility] [address] [place] [address] [facility] Start: 07-05-2023 End: 04-04-2024 CBC W Auto Differential panel - Blood CBC + DIFF Lab Routine Thrombocytopenia (HCC) Iron deficiency anemia secondary to inadequate dietary iron intake Expected: 07/05/2023 (Approximate), Expires: 04/04/2024 [facility] Work Phone: Comment on above: Expected: 07/05/2023 (Approximate), Expires: 04/04/2024 Start: 07-05-2023 End: 04-04-2024 Cobalamin (Vitamin B12) [Mass/volume] in Serum or Plasma VITAMIN B12 BLOOD Lab Routine Thrombocytopenia (HCC) Iron deficiency anemia secondary to inadequate dietary iron intake Expected: 07/05/2023 (Approximate), Expires: 04/04/2024 [facility] Work Phone: Comment on above: Expected: 07/05/2023 (Approximate), Expires: 04/04/2024 Start: 07-05-2023 End: 04-04-2024 Comprehensive metabolic 2000 panel - Serum or Plasma COMP METABOLIC PANEL Lab Routine Thrombocytopenia (HCC) Iron deficiency anemia secondary to inadequate dietary iron intake Expected: 07/05/2023 (Approximate), Expires: 04/04/2024 [facility] Work Phone: Comment on above: Expected: 07/05/2023 (Approximate), Expires: 04/04/2024 Start: 07-05-2023 End: 04-04-2024 Ferritin [Mass/volume] in Serum or Plasma FERRITIN BLD Lab Routine Thrombocytopenia (HCC) Iron deficiency anemia secondary to inadequate dietary iron intake Expected: 07/05/2023 (Approximate), Expires: 04/04/2024 [facility] Work Phone: Comment on above: Expected: 07/05/2023 (Approximate), Expires: 04/04/2024 Start: 07-05-2023 End: 04-04-2024 Folate [Mass/volume] in Serum or Plasma FOLATE SERUM Lab Routine Thrombocytopenia (HCC) Iron deficiency anemia secondary to inadequate dietary iron intake Expected: 07/05/2023 (Approximate), Expires: 04/04/2024 [facility] Work Phone: Comment on above: Expected: 07/05/2023 (Approximate), Expires: 04/04/2024 Start: 07-05-2023 End: 04-04-2024 Iron and Iron binding capacity panel - Serum or Plasma IRON + TIBC Lab Routine Thrombocytopenia (HCC) Iron deficiency anemia secondary to inadequate dietary iron intake Expected: 07/05/2023 (Approximate), Expires: 04/04/2024 [facility] Work Phone: Comment on above: Expected: 07/05/2023 (Approximate), Expires: 04/04/2024 Start: 05-31-2023 Advance Directive Discussion Advance Directive Discussion [facility] Start: 05-31-2023 Depression Assessment Depression Ass essment [facility] Start: 04-09-2023 End: 10-08-2023 CBC W Auto Differential panel - Blood CBC + DIFF Lab Routine Thrombocytopenia (HCC) Lung nodules Iron deficiency anemia secondary to inadequate dietary iron intake Expected: 04/09/2023 (Approximate), Expires: 10/08/2023 [facility] Work Phone: Comment on above: Expected: 04/09/2023 (Approximate), Expires: 10/08/2023 Start: 04-09-2023 End: 10-08-2023 Cobalamin (Vitamin B12) [Mass/volume] in Serum or Plasma VITAMIN B12 BLOOD Lab Routine Thrombocytopenia (HCC) Lung nodules Iron deficiency anemia secondary to inadequate dietary iron intake Expected: 04/09/2023 (Approximate), Expires: 10/08/2023 [facility] Work Phone: Comment on above: Expected: 04/09/2023 (Approximate), Expires: 10/08/2023 Start: 04-09-2023 End: 10-08-2023 Comprehensive metabolic 2000 panel - Serum or Plasma COMP METABOLIC PANEL Lab Routine Thrombocytopenia (HCC) Lung nodules Iron deficiency anemia secondary to inadequate dietary iron intake Expected: 04/09/2023 (Approximate), Expires: 10/08/2023 [facility] Work Phone: Comment on above: Expected: 04/09/2023 (Approximate), Expires: 10/08/2023 Start: 04-09-2023 End: 11-06-2023 CT CHEST W IVCON CT CHEST W IVCON Radiology Routine Lung nodules Expected: 04/09/2023 (Approximate), Expires: 11/06/2023 [facility] Work Phone: Comment on above: Expected: 04/09/2023 (Approximate), Expires: 11/06/2023 Start: 04-09-2023 End: 10-08-2023 Ferritin [Mass/volume] in Serum or Plasma FERRITIN BLD Lab Routine Thrombocytopenia (HCC) Lung nodules Iron deficiency anemia secondary to inadequate dietary iron intake Expected: 04/09/2023 (Approximate), Expires: 10/08/2023 [facility] Work Phone: Comment on above: Expected: 04/09/2023 (Approximate), Expires: 10/08/2023 Start: 04-09-2023 End: 10-08-2023 Folate [Mass/volume] in Serum or Plasma FOLATE SERUM Lab Routine Thrombocytopenia (HCC) Lung nodules Iron deficiency anemia secondary to inadequate dietary iron intake Expected: 04/09/2023 (Approximate), Expires: 10/08/2023 [facility] Work Phone: Comment on above: Expected: 04/09/2023 (Approximate), Expires: 10/08/2023 Start: 04-09-2023 End: 10-08-2023 Iron and Iron binding capacity panel - Serum or Plasma IRON + TIBC Lab Routine Thrombocytopenia (HCC) Lung nodules Iron deficiency anemia secondary to inadequate dietary iron intake Expected: 04/09/2023 (Approximate), Expires: 10/08/2023 [facility] Work Phone: Comment on above: Expected: 04/09/2023 (Approximate), Expires: 10/08/2023 Start: 03-15-2023 Pneumococcal 65+ yea rs Vaccine (2 - PPSV23 or PCV20) Pneumococcal 65+ years Vaccine (2 - PPSV23 or PCV20) [facility] Start: 03-15-2023 Pneumococcal Vaccine : 65+ (3 - PPSV23 or PCV20) Pneumococcal Vaccine: 65+ (3 - PPSV23 or PCV20) [facility] Start: 03-15-2023 Pneumococcal Vaccine : 65+ (3 of 3 - PPSV23 or PCV20) Pneumococcal Vaccine: 65+ (3 of 3 - PPSV23 or PCV20) [facility] Start: 03-15-2023 Pneumococcal Vaccine : 65+ Years (3 - PPSV23 or PCV20) Pneumococcal Vaccine: 65+ Years (3 - PPSV23 or PCV20) [facility] Start: 03-15-2023 PNEUMOCOCCAL: 65+ (#3) PNEUMOCOCCAL: 65+ (#3) [facility] Start: 03-15-2023 PNEUMOCOCCAL: 65+ (2 - PPSV23 or PCV20) PNEUMOCOCCAL: 65+ (2 - PPSV23 or PCV20) [facility] Start: 01-29-2023 Covid-19 Vaccine ( season) Covid-19 Vaccine ( season) [facility] Start: 01-29-2023 Influenza vaccination Influenza Vacc ine (#1) [facility] Start: 05-31-2022 ADVANCE DIRECTIVE DISCUSSION ADVANCE DIRECTIVE DISCUSSION [facility] Start: 05-31-2022 DEPRESSION ASSESSMENT DEPRESSION ASS ESSMENT [facility] Start: 02-16-2022 End: 02-16-2022 Admission to same day surgery center 02/16/2022 Surgery IP Unit Quique Mojica MD [address] [place], [place] [id number] L3-4 LUMBAR LAMINECTOMY POSTERIOR ABOVE PREVIOUS L 4-5 FUSION [facility] Comment on above: L3-4 LUMBAR LAMINECT JOEL POSTERIOR ABOVE PREVIOUS L 4-5 FUSION Start: 02-16-2022 End: 02-16-2022 Laminectomy w/o ffd > 2 vert seg lumbar LUMBAR LAMINECTOMY POSTERIOR Spinal stenosis of lumbar region, unspecified whether neurogenic claudication present 02/16/2022 12:15 PM T [facility] Start: 02-16-2022 Subsequent hospital visit by physician 02/16/2022 Hospital Encounter IP Unit Quique Mojica MD [address] [place] [address] [facility] Start: 02-12-2022 Annual Wellness Visi t (AWV) Annual Wellness Visit (AWV) [facility] Start: 01-29-2022 Influenza vaccination [facility] Start: 01-21-2022 Screening mammograph y of bilateral breasts MM screening mammo BI w/CAD [facility] Start: 01-21-2022 End: 01-21-2022 Patient encounter procedure Departed Clinical [facility] Start: 01-14-2022 Adult depression screening assessment DEPRESSION SCREENING [facility] Start: 12-09-2021 COVID-19 VACCINE (5 - Booster for Pfizer series) COVID-19 VACCINE (5 - Booster for Pfizer series) [facility] Start: 2021 ADVANCE DIRECTIVE DISCUSSION ADVANCE DIRECTIVE DISCUSSION [facility] Start: 2021 BONE DENSITY BONE DENSITY [facility] Start: 2021 Bone Density Screening Bone Density Screening [facility] Start: 2021 Screening for osteoporosis Bone Density Screening [facility] Start: 05-31-2021 DEPRESSION ASSESSMENT DEPRESSION ASS ESSMENT [facility] Start: 2016 RSV Vaccine (1 - 1-d ose 60+ series) RSV Vaccine (1 - 1-dose 60+ series) [facility] Start: 2006 Screening for malign ant neoplasm of breast Breast cancer screen [employer] Start: 2001 COLOGUARD (FIT-DNA) COLOGUARD (FIT-D NA) [facility] Start: 2001 Colonoscopy COLONOSCOPY [facility] Start: 2001 COLORECTAL CANCER SCREENING COLORECTAL CANCER SCREENING [facility] Start: [address] COLONOGRAPHY [facility] Start: 2001 FECAL OCCULT BLOOD FECAL OCCULT BLOO D [facility] Start: 2001 Screening for malign ant neoplasm of colon [employer] Start: 2001 SIGMOIDOSCOPY SIGMOIDOSCOPY [facility] Start: 1996 Lipid panel Lipids [employer] Start: 1996 Mammography [facility] Start: 1996 Screening for malign ant neoplasm of breast Mammogram Screening [facility] Start: 09-19-1991 Diabetes screen Diabetes screen [employer] Start: 1974 Hepatitis C screening Hepatitis C sc reen [employer] Start: 1974 HIV SCREENING HIV SCREENING [facility] Start: 09-19-1971 HIV screening HIV screen [facility] Start: 1968 Depression Screen Depression Screen [employer] Start: 1956 Screening for malign ant neoplasm of colon [facility] End: 09-22-2022 Basic metabolic 2000 panel - Serum or Plasma Basic Metabolic Panel Lab Routine Daily for 3 Days starting 02/17/2022 until 02/19/2022, 1 completed [employer] Phone: Comment on above: Daily for 3 Days sta rting 02/17/2022 until 02/19/2022, 1 completed End: 02-19-2022 CBC W Auto Differential panel - Blood CBC with Auto Differential Lab Routine Daily for 3 Days starting 02/17/2022 until 02/19/2022, 1 completed [employer] Phone: Comment on above: Daily for 3 Days sta rting 02/17/2022 until 02/19/2022, 1 completed End: 02-16-2022 Intermittent pulse oximetry Pulse Oximetry Spot Check Respiratory Care Routine One Time for 1 Occurrences starting 02/16/2022 until 02/16/2022 [employer] Phone: Comment on above: One Time for 1 Occur rences starting 02/16/2022 until 02/16/2022 Oxygen therapy [[facility] Data Set] Initiate Oxygen Therapy Protocol Respiratory Care Routine As Needed until discontinued starting 02/16/2022 [employer] Phone: Comment on above: As Needed until disc ontinued starting 02/16/2022 Spirometry panel Incentive mark [facility] Respiratory Care Routine Every 2hr while awake until discontinued starting 02/16/2022 [employer] Phone: Comment on above: Every 2hr while awak e until discontinued starting 02/16/2022 [facility] Immunizations Immunization Date Immunization Notes Care Provider [facility] 04-26-2022 Seasonal, quadrivale nt, recombinant, injectable influenza vaccine, preservative free Jose Bryant MD Work Phone: [facility] 04-26-2022 influenza virus vacc ine, unspecified formulation Jose Bryant MD Work Phone: [facility] 03-28-2021 influenza, injectabl e, quadrivalent, preservative free Dallas Lombardo MD Work Phone: [facility] 11-26-2020 zoster vaccine recombinant Dallas Lombardo MD Work Phone: [facility] 09-10-2020 COVID-19 mRNALowell (Pfizer) MD Ricardo Hooper Work Phone: [facility] 08-19-2020 COVID-19 mRNALowell (Pfizer) MD Ricardo Hooper Work Phone: [facility] 07-29-2020 hepatitis A vaccine, adult dosage Dallas Lombardo MD Work Phone: [facility] 07-29-2020 tetanus toxoid, redu perri diphtheria toxoid, and acellular pertussis vaccine, adsorbed Dallas Lombardo MD Work Phone: [facility] 07-12-2020 typhoid capsular polysaccharide vaccine Dallas Lombardo MD Work Phone: [facility] 01-30-2020 influenza, injectabl e, quadrivalent, preservative free Dallas Lombardo MD Work Phone: [facility] 01-30-2020 zoster vaccine recombinant Dallas Lombardo MD Work Phone: [facility] 02-27-2019 influenza, injectabl e, quadrivalent, preservative free Dallas Lombardo MD Work Phone: [facility] 01-27-2019 influenza, injectabl e, quadrivalent, preservative free Dallas Lombardo MD Work Phone: [facility] 03-21-2018 influenza, injectabl e, quadrivalent, contains preservative Dallas Lombardo MD Work Phone: [facility] 03-21-2018 influenza, seasonal, injectable Dallas Lombardo MD Work Phone: [facility] 03-15-2018 influenza, injectabl e, quadrivalent, preservative free Dallas Lombardo MD Work Phone: [facility] 03-15-2018 pneumococcal polysaccharide vaccine, 23 valent Dallas Lombardo MD Work Phone: [facility] 02-28-2018 pneumococcal conjuga te vaccine, 13 valent Dallas Lombardo MD Work Phone: [facility] 01-29-2018 influenza virus vacc ine, unspecified formulation Dallas Lombardo MD Work Phone: [facility] 06-18-2017 influenza, high dose seasonal, preservative-free Dallas Lombardo MD Work Phone: [facility] 06-18-2017 pneumococcal polysaccharide vaccine, 23 valent Dallas Lombardo MD Work Phone: [facility] 04-20-2014 influenza, seasonal, injectable, preservative free Dallas Lombardo MD Work Phone: [facility] Payers Date Payer Category Payer Self-pay [id number] 2018 Medicare HUMANA MEDICARE HU[employer]NA MEDICARE PPO [id number] 2018-Present [phone] [facility] [id number] [place] [address] PPO [id number] 2018 Medicare [id number] 1959 Private Health Insurance [id number] 1959 Unknown [id number] 1956 Unknown [id number] 2.16.840.1.996005.3.579.2. 593 1956 Unknown [id number] 2.16.840.1.595354.3.579.2. 593 1956 Unknown [id number] 2.16.840.1.905508.3.579.2. 593 1956 Unknown [id number] 2.16.840.1.904255.3.579.2. 593 1956 Unknown [id number] 2.16.840.1.800198.3.579.2. 593 1956 Unknown [id number] 2.16.840.1.307859.3.579.2. 593 1956 Unknown [id number] 2.16.840.1.481463.3.579.2. 593 1956 Unknown [id number] 2.16.840.1.190953.3.579.2. 593 1956 Unknown [id number] 2.16.840.1.463409.3.579.2. 593 1956 Unknown [id number] 2.16.840.1.810401.3.579.2. 593 1956 Unknown [id number] 2.16.840.1.279199.3.579.2. 593 1956 Unknown [id number] 2.16.840.1.920061.3.579.2. 593 1956 Unknown [id number] 2.16.840.1.177371.3.579.2. 593 1956 Unknown [id number] 2.16.840.1.217427.3.579.2. 593 1956 Unknown [id number] 2.16.840.1.920925.3.579.2. 593 1956 Unknown [id number] 2.16.840.1.648002.3.579.2. 593 1956 Unknown [id number] 2.16.840.1.118353.3.579.2. 593 1956 Unknown [id number] 2.16.840.1.146924.3.579.2. 727 1956 Unknown [id number] 2.16.840.1.553407.3.579.2. 177 1956 Unknown [id number] 2.16.840.1.311855.3.579.2. 177 1956 Unknown [id number] 2.16.840.1.208928.3.579.2. 177 1956 Unknown [id number] 2.16.840.1.827875.3.579.2. 177 1956 Unknown [id number] 2.16.840.1.279243.3.579.2. 1259 1956 Unknown [id number] 2.16.840.1.830811.3.579.2. 1259 1956 Unknown [id number] 2.16.840.1.638023.3.579.2. 1259 Medicaid Medicaid [id number] Medicare [employer] MCR [id number] Unknown [id number] 2.16.840.1.224981.3.579.2. 531 Social History Date Type Detail Facility Start: 01-23-2015 End: 04-30-2015 Tobacco smoking status WYIS Never smoked tobacco [facility] Start: 01-23-2015 End: 04-30-2015 Tobacco use and exposure Smokeless tobacco non-user [facility] Start: 07-10-2021 End: 07-08-2023 Alcohol intake Current drinker of alcohol (finding) [facility] Start: 06-17-2015 History SDOH Alcohol Comment rare [facility] Start: 1955 Sex Assigned At Not on file [facility] Start: 10-28-2021 End: 04-09-2022 Exposure to SARS-CoV-2 (event) Not sure [facility] Start: 1955 Sex Assigned At Female [facility] Start: 01-26-2022 End: 07-12-2023 Alcohol intake Ex-drinker (finding) [facility] [employer] Work Phone: Start: 09-15-2021 History SDOH Alcohol Frequency 1 [facility] [employer] Phone: Start: 06-10-2022 End: 06-13-2022 Sex Assigned At Female [facility] Start: 06-10-2022 End: 06-13-2022 History of Social function [facility] Adult Depression Screening Assessment 0 [facility] How often to you hav e a drink containing alcohol? Monthly or less [facility] How many standard drinks containing alcohol do you have on a typical day? 1 or 2 [facility] How often do you hav e 6 or more drinks on 1 occasion? Never [facility] Start: 04-26-2023 Alcohol Comment Caffeine intake: 1-2 cups per day [facility] Start: 10-04-2022 Gender identity Identifies as female gender (finding) [facility] Start: 10-04-2022 Sexual orientation Heterosexual (finding) [facility] Functional Status Date Assessment Result Facility 10-10-2022 Functional Status N/A [facility] Clinical Notes 11-05-2021 to 07-13-2023 Telephone Encounter - Martha Eugene RN - 07/13/2023 11:24 AM ESTTelephone Encounter - Jose Bryant MD - 07/13/2023 11:20 AM ESTJrLalitha Pedro DO - 07/12/2023 8:45 AM EST Note Date & Type Note Facility 07-13-2023 Miscellaneous Notes Lab aware and note placed in December lab appt to NOT DRAW flow at that time. Martha Eugene RN Just need FLOW and CBC, CMP, LDH. Thanks - we can cancel FLOW order for December. Patient called back she is scheduled for appts Pippa: Current lab orders expected by date in December. (Cannot use >30 days) Pended new orders for July. Do you need the iron and B12 studies repeated again? I did not pend those, as they were completed 07/05/23. Please sign PSS: Please schedule pt for lab in July and Pippa 1 week following lab. left with pt to notify of plan and provided # to call for scheduling. Martha Eugene RN Sure - she can get the blood work done anytime - July is fine. I would want to see her 1 week after. Hi Doctor Andra, When I was in there the other day you mentioned running different tests on me the next time I come in to check for the leukemia. Is there any way we can move this appointment up sooner? I would just like to know what's going on. I'm having a lot of issues with my joints and such and want to make sure it's not all related. I'd like to come in maybe at the end of July if that's possible? Thank you, Jessica Heatonk: please advise. If agreeable to move appt sooner, labs will need reordered with date change Martha documented in this encounter [facility] 07-12-2023 History of Presen t illness Narrative Images from the original note were not included. HISTORY OF PRESENT ILLNESS: EST PT Jessica Ferrera is an 67 y.o. @ female. (EST PT ; LAST APPT W/ ROCKY) RECHECK (L) HIP ; HERE FOR MRI RESULTS 06/30/23 @ [facility] XRAYS, 06/21/23 IN CHANGE / EPIC MRI, 06/30/23 @ [facility] MRI ARTHROGRAM 01/14/21 @ [facility] DEXA 08/06/21 @ [facility] NO MDP / PREDNISONE S/P IA CORTISONE INJ 01/14/21 @ [facility] S/P PHYSICAL THERAPY @ [facility] (LOWER BACK) ; FEB 2023 - MAR 2023 NO PAIN MGMT CONTINUES TO HAVE CONSTANT DISCOMFORT, WORSE WITH ACTIVITY / MOVEMENT. PAIN IS MOSTLY ANTERIOR, IN THE GROIN BUT CAN BE DIFFUSE. NOTES PAINFUL ROM ; SOME WEAKNESS WHEN LIFTING LEG. TAKING LODINE / TRAMADOL / ROBAXIN (PER DR MARQUEZ) - DENIES ANY RELIEF. PREVIOUS (R) VERONA 06/05/17 ; B/L TKA 2011 ; (R) SHOULDER SCOPE 2019 - DR PEDRO ALLERGIES: Allergies Allergen Reactions Penicillins Shortness of breath Other Reaction(s): TROUBLE BREATHING Tioconazole Itching and Unknown Other Reaction(s): vaginal burning Burning of skin Ciprofloxacin GI intolerance Other Reaction(s): Breathing, Joint pain Levofloxacin Swelling Other Reaction(s): Joint swelling, Myalgia Joint pain Miconazole Unknown Clindamycin/Lincomycin Unknown, Nausea Only and GI intolerance Doxycycline GI intolerance, Nausea And Vomiting and Unknown Other Reaction(s): Unknown Reaction Nitrofurantoin GI intolerance, Hives, Itching, Rash and Swelling Nitrofurantoin Macrocrystal Rash HOME MEDICATIONS: Current Outpatient Medications Medication Instructions baclofen (LIORESAL) 10 mg, Oral benzonatate (TESSALON) 200 mg, Oral, 3 times daily PRN Cranberry 250 MG capsule esomeprazole (NEXIUM) 40 mg, Oral, Daily before breakfast estradiol (Estrace) 0.1 MG/GM vaginal cream Vaginal etodolac (Lodine) 400 MG tablet Every 12 hours ferrous sulfate 325 mg, Oral, Daily with breakfast FLUTICASONE PROPIONATE, INHAL, IN Nasal Lactobacillus (Acidophilus Probiotic) 0.5 MG tablet lisinopril 20 mg, Oral, Daily RT methenamine hippurate (Hiprex) 1 g tablet 1 tablet, Oral, 2 times daily with meals mometasone (Nasonex) 50 MCG/ACT nasal spray 2 sprays sennosides (SENOKOT) 8.6 mg, Oral, Daily RT traMADol (ULTRAM) 50 mg, Oral, Daily RT traZODone (DESYREL) 100 mg, Oral, Nightly triamcinolone (Kenalog) 0.1 % cream Topical, 2 times daily PHYSICAL EXAM: Hip Musculoskeletal Exam Gait Antalgic: left Limp: left Trendelenburg: left Abductor lurch: left Circumduction: left Inspection Leg length disparity: right greater than left Left Erythema: none Ecchymosis: none Edema: none Deformity: none Previous incision: no previous incision Palpation Left Increased warmth: none Tenderness: present Greater trochanteric region pain: moderate Pubic rami pain: none Lower lumbar region pain: none Range of Motion Left Active ROM: abnormal. Passive ROM: abnormal. Active extension: 10. Passive extension: 5. Active flexion: 40. Passive flexion: 40. Active internal rotation: 5. Passive internal rotation: 10. Active external rotation: 10. Passive external rotation: 15. Active adduction: 10. Passive adduction: 15. Active abduction: 10. Passive abduction: 15. Strength Left Flexion: 5/5. Internal rotation: 5/5. External rotation: 5/5. Adduction: 5/5. Abduction: 5/5. Neurovascular Left Left hip neurovascular exam is normal. Sensation: sural, saphenous, tibial, superficial peroneal and deep peroneal Dorsalis pedis: 2+ Posterior tibial: 2+ Special Tests Left Log roll test: positive Impingement test: positive Trendelenburg test: positive Internal rotation: positive External rotation: positive Vitals: Body mass index is 42.91 kg/m . Tobacco Use: Low Risk (07/12/2023) Patient History Smoking Tobacco Use: Never Smokeless Tobacco Use: Never Passive Exposure: Not on file Alcohol Use: Not At Risk (04/26/2023) AUDIT-C Frequency of Alcohol Consumption: Monthly or less Average Number of Drinks: 1 or 2 Frequency of Binge Drinking: Never IMAGING: Procedures Orders Placed This Encounter Procedures FL guided injection hip left Standing Status: Future Standing Expiration Date: 07/12/2024 Scheduling Instructions: [facility] ; Please call patient to schedule, thank you. Rody @[facility] will obtain PA (L) hip IA injection Order Specific Question: Reason for exam: Answer: DJD (L) HIP Ambulatory referral to Pain Medicine Dr. Ferreira ; Please call patient to schedule, thank you. Evaluate and treat (L) hip Standing Status: Future Standing Expiration Date: 01/10/2024 Referral Priority: Routine Referral Type: Consultation Referral Reason: Consult and Treat Referred to Provider: Enmanuel Ferreira MD Requested Specialty: Pain Medicine Number of Visits Requested: 1 EMG AND NERVE CONDUCTION STUDY Standing Status: Future Standing Expiration Date: 07/12/2024 Scheduling Instructions: [facility] ; Please call patient to schedule, thank you. (L) LE EMG ASSESSMENT: ICD-10-CM 1. Primary osteoarthritis of left hip M16.12 Ambulatory referral to Pain Medicine FL guided injection hip left 2. Limb weakness R29.898 EMG AND NERVE CONDUCTION STUDY 3. Numbness R20.0 EMG AND NERVE CONDUCTION STUDY 4. Paresthesia R20.2 EMG AND NERVE CONDUCTION STUDY 5. Pain in extremity, unspecified extremity M79.609 EMG AND NERVE CONDUCTION STUDY PLAN: We have answered all the patients questions and explained the patients condition, decision making and plan including the risks and benefits associated with said plan in layman''s terms in a language the patient could understand easily. If patient''s symptoms significantly worsen and they cannot get a hold of us or their family physician, we have recommended that the patient proceed to the nearest emergency department (room). Dr. Pedro obtained history and examined the patient, I am acting as scribe for Dr. Pedro/wendy, PLAN: We have reviewed prior (L) hip xrays and discussed (L) hip MRI results with patient at bedside : mild to moderate DJD noted. Patient is understanding that we are unable to entertain the thought of a (L) VERONA until her BMI is at or below 40. After examination of her left hip today we are recommending a (L) LE EMG to r/o radiculopathy. We are also recommending a referral to Dr. Ferreira with patient's verbal agreeance. We are also recommending a repeat IA injectio at [facility]. We have discussed her HEP and restrictions and will see her back in 4 weeks to reassess her left hip and discuss studies. Manda Lozada MA documented in this encounter [facility] 07-08-2023 Note HNO ID: [id number] Author: JOSE BRYANT MD Service: ? Author Type: Physician Type: Progress Notes Filed: 07/10/2023 11:47 Note Text: NAME: Jessica Ferrera CLINIC NO.: [id number] DATE OF SERVICE: July 08, 2023 ([facility]) Some elements in this clinic note that are critical to medical decision making have been carefully reviewed and included from a prior clinic note dated: June 10, 2022 (Andra) CHIEF COMPLAINT: followup for anemia ASSESSMENT: (D72.820) Lymphocytosis (primary encounter diagnosis) (D69.6) Thrombocytopenia (HCC) (D50.8) Iron deficiency anemia secondary to inadequate dietary iron intake (R59.0) Mediastinal lymphadenopathy Iron deficiency With anemia - improving. Responding to oral iron replacement ferrous sulfate 325 mg either to be taken twice a day or once every other day. Now at Hgb of 12.2 g/dL Pulmonary nodule is stable - since 03/2022 and is going to be following with pulmonary medicine soon. PLAN: RTC in 6 months labs, include flow cytometry 1 week before [facility] Clinical Note Previous notes reviewed today [...] with more than 50% of the total ddsa-le-qqyn time of the visit in counseling / coordination of care. Yo Morse MD, MS Unloading Checkerhat lining paster Hematology and Medical Oncology [address] [id number] Labs and Imaging Reviewed outside records provided prior to this visit and those in [facility]. as diagnosed by Dr. Morse [facility]. No evidence of a paraprotein. [...] not particularly concerning. Monitoring for now. HPI: CASE HISTORY: Reverse Chronological Order 03/31/2023 - CT Chest: Interval resolution of previously noted left lower lobe nodular opacity. Residual subcentimeter nodular opacities and groundglass opacities measuring up to 5-6 mm, stable since 04/06/22. Borderline mediastinal lymphadenopathy, stable. 04/06/2022 - CT Chest: New 2 mm left lower lobe nodular opacity, most likely infectious/inflammatory in etiology. Consider follow-up to complete resolution. New streaky scarring/discoid atelectasis in the right middle lobe. Borderline mediastinal lymphadenopathy, stable. 6-7 mm groundglass opacity in the left upper lobe, stable since 07/11/18. This may also be evaluated at interval follow-up. 01/10/2021 - CT Chest: 8mm groundglass opacity left upper lobe, nonspecific. 01/04/2019 - CT Chest: Stable appearance of left upper lobe groundglass nodule. No new or enlarging nodules are seen. Recommend follow-up in 24 months, per Fleischner Society guidelines. Subcarinal adenopathy appears slightly decreased in size from prior. Unchanged appearance of AP window node. Additional subcentimeter mediastinal nodes also appear unchanged. 07/21/2018 - BMBX: normocellular bone marrow (40%) with trilineage hematopoiesis, mildly increased megakaryocytes and mild dysmegakaryopoiesis. stainable iron absent. cytogenetics normal. 07/11/2018 - CT Scans: Neck: No evidence of a neck soft tissue mass, fluid collection, or lymphadenopathy. Chest: Nonspecific mild mediastinal lymphadenopathy. Consider interval follow-up or other workup. Nonspecific 6-7 mm left upper lobe groundglass opacity. (more content not included)... [facility] 06-24-2023 Note HNO ID: [id number] Author: DALLAS LOMBARDO MD Service: ? Author Type: Physician Type: Progress Notes Filed: 06/24/2023 12:13 Note Text: [facility] UROLOGY VISIT Follow Up CENTER FOR [...] No allergy testing for antibiotics. QUESTIONNAIRE: Questionnaire: Mychart Ambulatory Visit Intake Questionnaire Question Answer Have [...] Intermittent Intervention/Comfort measure Pain Comments Questionnaire: [facility] Additional Demo Question Answer Is this visit related to an accident, other than Workers' Compensation? No Is this visit related to Workers' Compensation? No Do you need an accordion maker? No Questionnaire: Val Promis 10 Adult Short [...] CYSTO.PANENDO 06/05/2021 CYSTOURETHROSCOPY 06/20/15 Cystoscopy; Dr. Lombardo; Sherrill REJ [facility] EL[facility] SURGERY HX Left HYSTERECTOMY HX 1995 [...] the nose as (more content not included)... [facility] 06-24-2023 Note HNO ID: [id number] Author: ?, ?, ? Service: ? Author Type: ? Type: Progress Notes Filed: 06/24/2023 12:13 Note Text: PVR = 0 ml Via bladder scan. [facility] 04-04-2023 Miscellaneous Notes I hope she had a good trip to [place]. She can come back to see me in 3 months - just need her labs done 2-3 days before. documented in this encounter [facility] 03-31-2023 Note HNO ID: [id number] Author: Kaci Hodge RN Service: ? Author [...] DATE: March 31, 2023 TIME: 8:53 AM [facility] 03-31-2023 Note HNO ID: [id number] Author: Charleen Tao RT(R) Service: ? Author [...] RT Corine(R) March 31, 2023 9:39 AM [facility] 10-10-2022 Hospital Discharg e instructions Patient [...] few weeks. Home care treatment may include: Zyez-yyp-lozpbnq pain relievers. A warm, moist cloth placed over the ear. Severe cases may require a procedure to insert tubes in the ears (tympanostomy tubes) to drain the fluid. Follow these instructions at home: Take jpsa-voh-fzmueep and prescription medicines only as told by [...] provider. Document Revised: 09/11/2021 Document Reviewed: 09/11/2021 [employer] Patient Education 2022 [employer]. Follow Up Care 10/10/2022 14:55:39 With:Ricardo Hooper Address: [address] [place] [address] Business (1) When:10/13/2022 15:48:06 Comments:Follow-up with your primary care provider in 3 to 5 days. If symptoms worsen, do not improve, or new symptoms arise please report back to emergency department for further evaluation. [facility] 10-10-2022 Evaluation + Plan note Extrac mirtha from: Title:ED Note Author:Thony Soriano PA-C te:10/10/22 Left serous otitis media (H6 5.92: Unspecified nonsuppurative otitis media, left ear) Orders: cefdinir, 300 mg = 1 cap(s), Oral, q12hr, X 7 day(s), # 14 cap(s), Refills(s) 0 predniSONE, 60 mg = 3 tab(s), Oral, Daily, X 7 day(s), # 21 tab(s), Refills(s) 0 [facility]05-10-2023 NoteHNO ID: [id number] Author: Jose Bryant MD Service: ? Author Type: Physician Type: Progress Notes Filed: 10/07/2022 10:43 AM Note Text: NAME: Jessica Ferrera CLINIC NO.: [id number] DATE OF SERVICE: June 10, 2022 (Andra) [...] stable - can reassess in 6 months. [facility] Clinical Note Previous notes reviewed today in [...] with more than 50% of the total ghon-zo-iute time of the visit in counseling / coordination of care. Yo Morse MD, MS Unloading Checkerhat lining paster Hematology and Medical Oncology [address] [place], [place] [id number] Labs and Imaging Reviewed outside records provided prior to this visit and those in [facility]. as diagnosed by Dr. Morse [facility]. No evidence of a paraprotein. [...] in concerned with recent CT done in [facility] with a left 8 mm nodule. Appears to be stable overall. Will consider following more closely but has multiple reasons for inflammatory changes included untreated sleep apnea and COVID-19 in 04/2020. Feels in pain from hip injection and has a UT (more content not included)... [facility]05-10-2023 Instructions* Patient Instructions* Jose Bryant MD - 10/07/2022 10:42 AM EDT RTC in 6 months labs and scans 1 week before Hold oral Iron while in [place] ( for 3 weeks) CT chest in 6 months with labs also. [facility] History of Present illness Narrative* Jose Bryant MD - 10/07/2022 10:33 AM EDT Images from the original note were not included. NAME: Jessica Ferrera CLINIC NO.: [id number] DATE OF SERVICE: June 10, 2022 (Andra) [...] stable - can reassess in 6 months. [facility] Clinical Note Previous notes reviewed today [...] with more than 50% of the total jbfb-xc-fqap time of the visit in counseling / coordination of care. Yo Morse MD, MS Unloading Checkerhat lining paster Hematology and Medical Oncology [address] [id number] Labs and Imaging Reviewed outside records provided prior to this visit and those in [facility]. as diagnosed by Dr. Morse [facility]. No evidence of a paraprotein. [...] Updated Visit, October 07, 2022: Leaving for [facility] next week. Has all of her shots [...] in concerned with recent CT done in [facility] with a left 8 mm nodule. [...] deviated septum noted low platelets. Colonoscopy in [place] 2016 with many polyps, recommended repeat. Colonoscopy in 2017 in [place]. June 27, 2018 She notes recent severe [...] 5 miles per day. Had trip to [place] in November for chest pain. CT chest [...] Other: See Comments Burning of skin Nitrofurantoin Emery* GI Upset, Hives, Itching, Rash, Swelling Penicillins [...] CYSTOURETHROSCOPY 06/20/15 Cystoscopy; Dr. Lombardo; Leanne KENDALL [facility] EL[facility]OW SURGERY HX Left HYSTERECTOMY HX 1995 [...] which included preparing to see the patient, zrvt-wz-ckoy patient care, completing clinical documentation, performing a medically appropriate examination, counseling and educating the patient/family/caregiver, ordering medications, tests, or p rocedures, and independently interpreting results (not separately reported). Jose Bryant MD, CPE Hematology and Oncology Services Provided at: [place], [place] CC: Ricardo Hooper MD [address] [facility] [address] documented in this encounter[facility] Nurse Note* Desiree Connors MA - 10/07/2022 10:08 AM EDT Patient is going to physical therapy for back and head, her head is better. Desiree Connors MA documented in this encounterGalion [facility]03-08-2023 NotePROCEDURE: XR ANKLE LT MIN 3 V COMPARISON: 10/01/2021 HISTORY: Pain of left ankle joint FINDINGS: BONES:No acute fracture or dislocation. Moderate to marked enthesopathic spurring of the plantar calcaneus. Mild degenerative changes with marginal osteophyte formation. SOFT TISSUES:Negative. No visible soft tissue swelling. EFFUSION:None visible. OTHER: Negative. IMPRESSION: Stable degenerative changes Electronically authenticated by: JOSE ALBERTO STEPHEN Date: 2022-08-05 13:47[facility]01-11-2023 Instructions* Patient Instructions* Jose Bryant MD - 06/10/2022 11:35 AM EST Keep appointment scheduled in September with Labs same day. Continue oral Iron CT chest in one year with labs also. Will order at next visit in September RTC in 6 months - same day as labs - CBC, CMP, Anemia documented in this encounterGalion Hospital01-11-[facility]23 History of Present illness Narrative* Jose Bryant MD - 06/10/2022 11:26 AM EST Images from the original note were not included. NAME: Jessica Ferrera CLINIC NO.: [id number] DATE OF SERVICE: June 10, 2022 (Andra) [...] 1 year. Will discuss in 6 months. [facility] Clinical Note Previous notes reviewed today [...] with more than 50% of the total klca-tn-kvrs time of the visit in counseling / coordination of care. Yo Morse MD, MS Unloading Checkerhat lining paster Hematology and Medical Oncology [address] [place], [place] [id number] Labs and Imaging Reviewed outside records provided prior to this visit and those in [facility]. as diagnosed by Dr. Morse [facility]. No evidence of a paraprotein. [...] in concerned with recent CT done in [facility] with a left 8 mm nodule. [...] deviated septum noted low platelets. Colonoscopy in [place] 2016 with many polyps, recommended repeat. Colonoscopy in 2017 in [place]. June 27, 2018 She notes recent severe [...] 5 miles per day. Had trip to [place] in November for chest pain. CT chest [...] Other: See Comments Burning of skin Nitrofurantoin Emery* GI Upset, Hives, Itching, Rash, Swelling Penicillins [...] CYSTO.PANENDO 06/05/2021 CYSTOURETHROSCOPY 06/20/15 Cystoscopy; Dr. Lombardo; Sherrill REJ [facility] EL[facility]OW SURGERY HX Left HYSTERECTOMY HX 1995 [...] which included preparing to see the patient, yeir-eh-hwim patient care, completing clinical documentation, performing a medically appropriate examination, counseling and educating the patient/family/caregiver, ordering medications, tests, or p rocedures, and independently interpreting results (not separately reported). Jose Bryant MD, CPE Hematology and Oncology Services Provided at: [place], [place] CC: Ricardo Hooper MD [address] [facility] [address] documented in this encounterGalion Hospital11-15-2022 Miscellaneous Notes* Telephone Encounter - Martha [...] advise. Georgia Tavares RN documented in this encounterGalion Hospital09-22-2022 Miscellaneous Notes* Telephone Encounter - Martha Eugene RN - 02/19/2022 9:[address] Alberto reviewed labs rec'd from [facility] this morning. He will discuss with patient all results on 03/12 appt. Nothing to address at this time. Martha Eugene RN * Telephone Encounter - Dedra Carr [facility] - 02/19/2022 8:11 AM EDT Records scanned. * Telephone Encounter - Angle Hawk Pss - 02/18/2022 4:03 PM EDT Appointment moved to after CT on 03/12, pt notified. * Telephone Encounter - Martha Eugene RN - 02/18/2022 3:52 PM EDT Pt aware can move pt up to Mar [address]. Pt states she also had a recent back surgery at [facility], in [place] with additional lab work. She is okay with getting all the results at her appt, unless you need to go over anything with her after reviewing all the results. PIPPA: review Dr Villasenor labs in the lab tab. I will have Rudi Carr get the additional labs from [facility] for you to review as well. 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 Has been up walking. [...] D/C plan for home today 5. Ortho Nlxv-hp-Nqms Discussion of Medical Necessity for Use of [...] provide stability after surgery. Quique Mojica MD [facility] Orthopaedics and Spine Spine Surgeon [phone] * Regina Pizarro RN - 02/16/2022 6:26 [...] evaluate in AM documented in this encounterBON Opentopic Work Phone: 1(787) 339-552309-19-2022 Hospital Discharge instructions* Discharge Instructions* Quique Mojica [...] redness, swelling or drainage after 4 days [phone] May shower in 2 days No tub baths for 6 weeks Quique Mojica MD [facility] Orthopaedics and Spine Spine Surgeon Keep it Clean - Post-Operative Home instructions These instructions are to help you have the best possible recovery after your surgical procedure. Brenda is here to support you. If you have questions, call [phone] Wednesday through Wednesday from 7:30AM to 8:30PM to speak to a nurse. If you need to speak to someone outside of these hours, call your physician. Incision Do s and Don ts Do wash hands before and after dressing changes or when you have had any contact with your incision. Use hand terry cloth cutter hand or antibacterial soap. Do keep your incision [...] through Care Everywhere. * Lumbar Laminectomy: Post-op (Bolivian) * Constipation (Bolivian) * DVT (Deep Vein Thrombosis): General Info (Bolivian) * acetaminophen and oxycodone (Bolivian) * tizanidine (Bolivian) * ondansetron (oral) (Bolivian) * docusate and senna (Bolivian) documented in this encounterBON [facility]ent[facility] Work Phone: [phone]) 246-855306-23-2022 History of Present illness Narrative* Monica Wallace Ma - 11/20/2021 9:33 AM EDT PVR = 0 ml Via bladder scan. * Dallas Lombardo MD - 11/20/2021 9:[address] [facility] [...] CYSTOURETHROSCOPY 06/20/15 Cystoscopy; Dr. Lombardo; Leanne KENDALL [facility] HX Left HYSTERECTOMY HX 1995 [...] antibiotic Dallas Lombardo MD documented in this encounterGalion Hospital06-08-2022 NotePROCEDURE: XR FOOT LT MIN 3 VIEWS COMPARISON: 10/01/2021 HISTORY: Pain in left foot FINDINGS: BONES:No acute fracture or dislocation. Moderate enthesopathic spurring of the calcaneus at the plantar insertion. Mild degenerative changes most significant in the midfoot SOFT TISSUES:Negative. No visible soft tissue swelling. EFFUSION:None visible. OTHER: Negative. IMPRESSION: Stable degenerative changes Electronically authenticated by: JOSE ALBERTO STEPHEN Date: 2021-11-05 17:28[facility] [place] [facility]* Diagnosis Screening for genitourinary condition- Primary Screening for other and unspecified genitourinary condition Recurrent UTI Urinary tract infection, site not specified Vaginal atrophy Postmenopausal atrophic vaginitis documented in this encounter [facility] [place] noteNo assessment information availableKettering Health Troy Work Phone: Evaluation note* Diagnosis Spinal stenosis, lumbar region with neurogenic claudication- Primary Lumbar stenosis with neurogenic claudication Spinal stenosis, lumbar region, with neurogenic claudication Hypertension Unspecified essential hypertension GERD (gastroesophageal reflux disease) Esophageal reflux documented in this encounter [facility] Work Phone: evaluation note* Diagnosis Iron deficiency anemia secondary to inadequate dietary iron intake documented [facility] this encounter [facility] [place] [facility]* Diagnosis Iron deficiency anemia secondary to inadequate dietary iron intake- Primary Pulmonary nodules Other nonspecific abnormal finding of lung field Mediastinal lymphadenopathy Enlargement of lymph nodes Idiopathic cytopenia of undetermined significance (ICUS) documented in this encounter [facility] [place] [facility]* Diagnosis Iron deficiency anemia secondary to inadequate dietary iron intake- Primary Thrombocytopenia (HCC) Thrombocytopenia, unspecified Lung nodules Other nonspecific abnormal finding of lung field documented in this encounter [facility] [place] [facility]* Diagnosis Thrombocytopenia (HCC)- Primary Thrombocytopenia, unspecified Iron deficiency anemia secondary to inadequate dietary iron intake documented [facility] encounter [facility] [place] [facility]* Diagnosis Primary osteoarthritis of left hip- Primary Limb weakness Other musculoskeletal symptoms referable to limbs Numbness Disturbance of skin sensation Paresthesia Disturbance of skin sensation Pain in extremity, unspecified extremity documented in this encounter [facility] [place] [facility]* Diagnosis Thrombocytopenia (HCC)- Primary Thrombocytopenia, unspecified Lymphocytosis Lymphocytosis (symptomatic) Mediastinal lymphadenopathy Enlargement of lymph nodes documented in this encounter [facility] Narrative No data available for this section [facility] No data available for this section [facility] HealthReason for referral (narrative)* Consultation (Routine) - Pending Review Specialty Diagnoses / Procedures Referred By Prudencio t Referred To Contact Pain Medicine Diagnoses Primary osteoarthritis of left hip Procedures CT OFFICE/OUTPATIENT [facility] 60 MINUTES Jr. Lenny Pedro DO [address] [place] [address] Enmanuel Ferreira MD [address] [place] [address] Referral ID Status Reason Start Date Expiration Date Visits Requested Visits Authorized [id number] Pending Review Consult and Treat 07/12/2023 01/08/2024 1 1 * (Routine) - Incomplete Specialty Diagnoses / Procedures Referred By Prudencio agosto Referred To Contact Diagnoses Limb weakness Numbness Paresthesia Pain in extremity, unspecified extremity Procedures EMG AND NERVE CONDUCTION STUDY Jr. Lenny Pedro DO [address] [facility] [address] [place] [address] Referral ID Status Reason Start Date Expiration Date V isits Requested Visits Authorized [id number] Incomplete 07/12/2023 01/08/2024 1 1 [facility] for [facility] Narrative* Auth/Cert Specialty Diagnoses / Procedures Referred By Prudencio agosto Referred To Contact Diagnoses Lumbar spinal stenosis LUMBAR SPINAL STENOSIS Procedures CT LAMINECTOMY,>2 SGMT,LUMBAR LAMINEC/FACETECT/FORAMIN,MARCIAL MBAR 1 SEG L3-4 LUMBAR LAMINECTOMY POSTERIOR ABOVE PREVIOUS L 4-5 FUSION Quique Mojica MD [address] [place] [address] [facility] [address] [place] [address] Referral ID Status Reason Start Date Expiration Date Visits Re quested Visits Authorized [id number] 1 1 [employer] Work Phone: Summary Purpose Family History Relationship Condition Age at Onset Recorded Date/T kentrell father Hypertension Unknown Heart disease Unknown Malignant neoplasm Unknown Not Specified Hypertension Unknown Advance Directives Documents on File Type Date Recorded 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 Advance Directive(s) 07/22/2018 3:03 PM [...] TOMOGRAPHY THORAX W/CONTRAST Jose Bryant MD [address] [place] [address] [place] [address] Ct Imaging Referral ID Status Reason Start Date Expiration Date Visits Requested Visits Authorized [id number] Authorized Auto-Generat ed Referral 3 11/06/2023 1 1 Additional Source Comments INFORMATION SOURCE (unrecogn ized section and content) DATE CREATED AUTHOR 09/24/2021 [facility] dical Specialist DATE CREATED AUTHOR AUTHOR'S ORGANIZ ATION 10/09/2022 [facility] DATE CREATED AUTHOR AUTHOR'S ORGANIZ ATION 10/12/2022 [facility] DATE CREATED AUTHOR AUTHOR'S ORGANIZ ATION 01/12/2023 [facility] DATE CREATED AUTHOR AUTHOR'S ORGANIZ ATION 03/01/2023 [facility] DATE CREATED AUTHOR AUTHOR'S ORGANIZ ATION 07/12/2023 [facility] DATE CREATED AUTHOR AUTHOR'S ORGANIZ ATION 07/13/2023 [facility] dical Specialists EPIC Source Comments (unrecognize d section and content) In the event this informatio n is protected by the Federal Confidentiality of Alcohol and Drug Abuse Patient Records regulations: The Federal rules restrict any use of the information to criminally investigate or prosecute any alcohol or drug abuse patient.[facility] HospitalIn the event this information is protected by the Federal Confidentiality of Alcohol and Drug Abuse Patient Records regulations: The Federal rules restrict any use of the information to criminally investigate or prosecute any alcohol or drug abuse patient.[facility] HospitalIn the event this information is protected by the Federal Confidentiality of Alcohol and Drug Abuse Patient Records regulations: The Federal rules restrict any use of the information to criminally investigate or prosecute any alcohol or drug abuse patient.[facility] HospitalIn the event this information is protected by the Federal Confidentiality of Alcohol and Drug Abuse Patient Records regulations: The Federal rules restrict any use of the information to criminally investigate or prosecute any alcohol or drug abuse patient.[facility] HospitalIn the event this information is protected by the Federal Confidentiality of Alcohol and Drug Abuse Patient Records regulations: The Federal rules restrict any use of the information to criminally investigate or prosecute any alcohol or drug abuse patient.[facility] HospitalIn the event this information is protected by the Federal Confidentiality of Alcohol and Drug Abuse Patient Records regulations: The Federal rules restrict any use of the information to criminally investigate or prosecute any alcohol or drug abuse patient.[facility] HospitalIn the event this information is protected by the Federal Confidentiality of Alcohol and Drug Abuse Patient Records regulations: The Federal rules restrict any use of the information to criminally investigate or prosecute any alcohol or drug abuse patient.[facility] HospitalIn the event this information is protected by the Federal Confidentiality of Alcohol and Drug Abuse Patient Records regulations: The Federal rules restrict any use of the information to criminally investigate or prosecute any alcohol or drug abuse patient.[facility] Reason for Visit (unrecogniz ed section and content) Reason Comments Follow Up F/U RECURRENT UTI - NOTHING HELPING Reason Comments Appointment Results Reason Comments Patient Question appointment Reason Comments 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 Reason Comments Anemia 3 month follow up Reason Comments Pain Reason Comments Appointment Care Teams (unrecognized sec tion and content) Team Status: Active Member Role Status Dates Ricardo Hooper MD Primary Care Provider Active Team Status: Inactive Member Role Status Dates Ricardo Hooper MD Primary Care Provider Active Referral Self Attending Provider 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 Relationship Specialty Start Date End Date Ricardo Hooper MD [address] [place] [address] PCP - General Family Practice 01/11/19 Madisyn Lara MD [address] [facility] [place] [address] Primary Staff Physician Cardiology 08/16/18 Team Status: Inactive Member Role Status Dates Ricardo Hooper MD Primary Care Provider Active Rocky Villasenor MD Attending Provider Active Team Status: Inactive Member Role Status Dates Ricardo Hooper MD Primary Care Provider Active Enmanuel Burton DO Attending Provider 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 Relationship Specialty Start Date End Date Ricardo Hooper MD [address] [place] [address] PCP - General Family Medicine 09/16/21 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 Relationship Specialty Start Date End Date Ricardo Hooper MD [address] [place] [address] PCP - General Family Medicine 09/16/21 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 Relationship Specialty Start Date End Date Ricardo Hooper MD [address] [place] [address] PCP - General Family Medicine 01/11/19 Madisyn Lara MD [address] [facility] [place] [address] Primary Staff Physician Cardiology 08/16/18 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 Relationship Specialty Start Date End Date Ricardo Hooper MD [address] [place] [address] PCP - General Family Medicine 01/11/19 Madisyn Lara MD [address] [facility] [place] [address] Primary Staff Physician Cardiology 08/16/18 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 Relationship Specialty Start Date End Date Ricardo Hooper MD [address] [place] [address] PCP - General Family Medicine 01/11/19 Madisyn Lara MD [address] [place] [address] Primary Staff Physician Cardiology 08/16/18 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 Relationship Specialty Start Date End Date Ricardo Hooper MD PCP - General Family Medicine 01/11/19 Madisyn Lara MD [address] [facility] [address] [place] [address] Primary Staff Physician Cardiology 08/16/18 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 Relationship Specialty Start Date End Date Ricardo Hooper MD PCP - General Family Medicine 01/11/19 Madisyn Lara MD [address] [place] [address] Primary Staff Physician Cardiology 08/16/18 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 Relationship Specialty Start Date End Date Ricardo Hooper MD [address] [place] [address] PCP - General Family Medicine 10/27/22 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 Relationship Specialty Start Date End Date Ricardo Hooper MD [address] [place] [address] PCP - General Family Medicine 10/27/22 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 Relationship Specialty Start Date End Date Ricardo Hooper MD PCP - General Family Medicine 01/11/19 Madisyn Lara MD [address] [place], [place] [id number] Primary Staff Physician Cardiology 08/16/18 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 Relationship Specialty Start Date End Date Ricardo Hooper MD PCP - General Family Medicine 01/11/19 Madisyn Lara MD [address] [place] [address] Primary Staff Physician Cardiology 08/16/18 Goals (unrecognized [...] 1,000 mg, Oral, ONCE, 1 dose, On 02/16/22 at 1100, Maximum dose of acetaminophen is [...] on Wed02/16/22 at 2100, Until Discontinued, Post-op 1908 (Given - Provider: Regina Pizarro RN) 0948 [...] Muscle spasms, Post-op bupivacaine-EPINEPHrine PF (MARCAINE-w/EPINEPHRINE) 0.5% -[id number] injection (CANCELED) PRN, Starting on Wed02/16/22 at [...] Palafox, RN)1709 (Given - Provider: Patito Palafox, NING) hydrOXYzine HCl (ATARAX) tablet 10 mg 10 [...] 2043 (Given - Provider: Becky Villavicencio RN) 111 (Given - Provider: Becky Villavicencio RN)05 (Given [...] BE BASED ON THE PRIMARY CLINICAL RECORDS. [facility]. provides no warranty or guarantee of the accuracy or completeness of information in this document.
[2023-07-14] MEDS: LIDOCAINE HCL 10 ML, SODIUM BICARBONATE 1 MEQ INJ (08:10)
[2023-07-14] MEDS: BUPIVACAINE HCL 0.5% PF 50 MG/10 ML VIAL 5 ML INJ (08:10)
[2023-07-14] MEDS: TRIAMCINOLONE ACETONIDE 40 MG/ML VIAL INJ (08:10)
--- NOTE | 2023-07-14 09:25 | SUR.PREOP ---
07/13/23 Instructed pt on procedure, date, time, and prep.
== END 2023-07-14 08:30 | disposition home or self-care (01) ==
LOC: FL 07:15
PROVIDERS: Radiology Diagnostic Radiology; PCP Family Medicine; Visit Provider Orthopaedic Surgery
DX: M16.12 Unilateral primary osteoarthritis, left hip (principal)
CPT/HCPCS: 20610; 77002; J0665; J3301; Q9967

== ENCOUNTER 2023-10-18 07:12 | Outpatient (OUT) | payer MEDICARE, SELFPAY ==
--- OUTSIDE RECORDS SUMMARY | 2023-10-18 07:16 | XMS_ITS | CCD ---
Author Organization [facility] Care Team Providers Care Data Technical Lead Name Role Phone Ricardo Hooper MD Primary Care Provider Madisyn Lara MD Unavailable MD Ricardo Hooper Primary Care Provider [phone] MD Rocky Villasenor Attending Provider [phone] DO Enmanuel Burton Attending Provider Ricardo Hooper MD Primary Care Provider [phone] Ricardo Hooper MD Primary Care Provider [phone] Madisyn Lara MD Unavailable [phone] Ricardo Hooper MD Primary Care Provider [phone] Madisyn aLra MD Unavailable [phone] Ricardo Hooper MD Primary Care Provider [phone] DR RICARDO IYER Admitting Unavailable SANDIE ., DR SILVA Consulting Unavailable HOY ., DR SILVA Attending Unavailable HOY ., DR SILVA Primary Care Unavailable HOY ., DR SILVA Admitting Unavailable SANDIE ., [...] ., DR SILVA Consulting Unavailable LAKSHMIPATHY ., NARENDKIRKATH Admitting Tierra vailable HOY ., DR SILVA [...] Primary Care Unavailable EVERARDO PERALTA Attending Unavailable PINELLAS PARK, DR JOSE ALBERTO Long Consulting Unavailable EVERARDO PERALTA Admitting Unavailable EVERARDO PERALTA Consulting Unavailable VERNELL FARRELL Consulting Unavailable VERNELL FARRELL Attending Unavailable JAMI, VERNELL Admitting Unavailable HOY ., DR SILVA Primary Care Unavailable HOY ., DR SILVA Primary Care Unavailable CLARI GILLETTE Admitting Unavailable AIDE LONDON Consulting Unavailabl e CLARI GILLETTE Attending Unavailable CECE VOGT Admitting Unavailable HOFely ., DR SILVA Primary Care Unavailable CECE VOGT Attending Unavailable HOFely ., DR SILVA Admitting Unavailable HOY ., [...] Consulting Unavailable Ricardo Hooper Primary Care Physician [phone] Rocael Wayne Attending Unavailable QUIQUE MOJICA Referring Unavailable HOY, RICARDO M Primary Care Unavailable QUIQUE MOJICA Referring Unavailable HOY, RICARDO M Primary Care Unavailable KRISTOF, QUIQUE Admitting Unavailable KRISTOF, QUIQUE Attending Unavailable BLOOD, JUVENAL P Consulting Unavailable HOY, RICARDO M Primary Care Unavailable MARVA HOBBS Consulting Unavailable ABDULLAHI ADAMIN Consulting Unavailable KRISTOF, QUIQUE Admitting Unavailable KRISTOF, QUIQUE Attending Unavailable BLOOD, JUVENAL P Consulting Unavailable HOY, RICARDO M Primary Care Unavailable HOMER KARIMI Consulting Unavailable MD Ricardo Hooper Primary Care Provider [phone] Self, Referral Attending Provider Unavailable Dedricky, Ricardo M Primary Care Unavailable Self, Referral Attending Unavailable Self, Referral Admitting Unavailable Marco DANGELO, Madisyn Reagan Unavailable Ricardo Hooper MD Primary Care Provider [phone] Ricardo Hooper MD Primary Care Provider [phone] DALIA VIGIL Attending Unavailable DALIA VIGIL Referring Unavailable JR. MOUSTAPHA, SALIMA Barba Attending Unavaila chas PEDRO JR., SALIMA Barba Attending Unavaila chas PEDRO JR., SALIMA Barba Attending Unavaila DALIA Thompson Attending Unavailable HOY, RICARDO M Referring Unavailable HOY, RICARDO M Primary Care Unavailable ENMANUEL FERREIRA Admitting Unavailable ENMANUEL FERREIRA Attending Unavailable HOY, RICARDO M Referring Unavailable HOY, RICARDO M Primary Care Unavailable Ricardo Hooper MD Primary Care Provider [phone] HOY, RICARDO M Primary Care Unavailable ABHYANKAR, JSOE Attending Unavailable ABHYANKAR, JOSE Referring Unavailable HOY, RICARDO M Primary Care Unavailable HOY, RICARDO M Primary Care Unavailable VASAVADA, DALLAS P Attending Unavailable HOY, RICARDO M Primary Care Unavailable ABHYANKAR, JOSE Referring Unavailable HOY, RICARDO M Primary Care Unavailable TWARDY, JENNI Referring Unavailable ERNIE AYERS Attending Unavailable HOY, RICARDO M Primary Care Unavailable ABHYANKAR, JOSE Attending Unavailable HOY, RICARDO M Primary Care Unavailable TWARDY, JENNI Referring Unavailable HOY, RICARDO M Primary Care Unavailable HOY, RICARDO M Primary Care Unavailable TWCADE, JENNI Attending Unavailable VASAVADA, DALLAS P Referring Unavailable Allergies Allergy Classification Reported Allergen(s) Allergy Type Date of Onset Reaction(s) Facility (20 sources) Ciprofloxacin; Translations: [ciprofloxacin] Drug Allergy 01-31-20 13 Intolerance, Respiratory function (observable entity), Joint pain (finding), GI intolerance [facility] (19 sources) Clindamycin; Translations: [clindamycin] Drug Allergy 01-24-20 15 Vomiting, Nausea [facility] (20 sources) Doxycycline; Translations: [doxycycline] Drug Allergy 05-14-20 20 Vomiting, Nausea And Vomiting, GI intolerance, Unknown [facility] (16 sources) NITROFURANTOIN, MACROCRYSTALS / Nitrofurantoin, Monohydrate; Translations: [nitrofurantoin] Drug Allergy 10-23-19 22 GI Upset, Hives, Itching, Rash, Swelling [facility] (6 sources) Penicillins; Translations: [PENICILLINS] Drug Allergy 01-31-20 13 Shortness of Breath [facility] (16 sources) tioconazole; Translations: [tioconazole topical] Drug Allergy 01-23-20 15 Other: See Comments, Itching [facility] (13 sources) Skin Cleanser Combination No.17; Translations: [SKIN CLEANSER COMBINATION NO.17] Drug Allergy 09-02-19 18 Unknown [facility] (8 sources) Miconazole; Translations: [miconazole] Drug Allergy 01-31-20 13 Unknown [facility] (5 sources) Nitrofurantoin Drug Allergy 01-27-20 22 Rash [facility] (5 sources) Clindamycin/Lincom ycin Propensity to adverse reactions to drug 01-31-20 13 Unknown, Nausea Only, GI intolerance [facility] Work Phone: (11 sources) Penicillins Drug Allergy 01-24-20 15 Shortness of Breath, Rash [facility] (17 sources) levoFLOXacin; Translations: [levofloxacin] Drug Allergy 04-09-20 22 Myalgia, Joint swelling (finding), Swelling [facility] (1 source) Ciprofloxacin Drug Allergy 03-16-20 14 [facility] (1 source) Clindamycin Drug Allergy 03-16-20 14 [facility] (1 source) Doxycycline Drug Allergy 05-14-20 20 [facility] (3 sources) levoFLOXacin; Translations: [Levaquin] Drug Allergy 04-28-20 22 [facility] (1 source) Miconazole Drug Allergy [facility] (3 sources) Nitrofurantoin; Translations: [Macrobid] Drug Allergy 04-28-20 22 [facility] (1 source) Penicillins Drug allergy (disorder) 03-16-20 14 [facility] (2 sources) Penicillin; Translations: [penicillin] Drug Allergy [facility] (1 source) tioconazole; Translations: [tioconazole topical] Drug Allergy 01-23-20 15 [facility] (1 source) Clindamycin Drug Allergy 12-19-19 21 [facility] (1 source) Doxycycline Drug Allergy 12-19-19 21 [facility] (1 source) Penicillins Drug allergy (disorder) 12-19-19 21 [facility] (3 sources) Nitrofurantoin Drug Allergy 10-23-19 22 GI intolerance, Hives, Itching, Rash, Swelling [facility] (3 sources) Penicillins Drug Allergy 01-31-20 13 Shortness of breath [facility] (3 sources) Tioconazole Allergy to substance 01-23-20 15 Itching, Unknown [facility] (2 sources) Penicillin G; Translations: [PENICILLIN G] Drug Allergy 03-09-20 17 Shortness Of Breath [facility] Medications Current Medications Medication Drug Class(es) Dates [...] (PERCOCET) 5-325 MG per tablet 1 tablet albuterol 0.83 mg/ml inhalation solution (7 sources) beta2-Adrenergic Agonist Start: 04-30-2022 albuterol (PROVENTIL,VENTOLIN) 2.5 mg /3 mL (0.083 %) nebulizer solution inhale contents of 1 vial ( 3 milliliters ) in nebulizer by mouth... (REFER TO PRESCRIPTION NOTES). 0 04/30/2022 Active Start: 02-16-2022 take 1 puff(s) by in halation every six hours as needed 1 puff, Inhalation, EVERY 6 HOURS PRN, Starting on 02/16/22 at 1819, Until Discontinued, Wheezing, Shortness of Breath Initiate RT Bronchodilator Protocol: No Post-op albuterol HFA (P ROVENTIL HFA, VENTOLIN HFA) 90 mcg/actuation inhaler Take 2 Puffs by mouth as needed. 0 Active albuterol (PROVE NTIL HFA;VENTOLIN HFA) 90 mcg/actuation inhaler 2 puffs as needed. 0 Active albuterol sulfat e HFA (PROVENTIL;VENTOLIN;PROAIR) 108 (90 Base) MCG/ACT inhaler Ventolin HFA 90 mcg/actuation aerosol inhaler 0 Active Comment on above: Take 2 Puffs by mout h as needed. azelastine hydrochloride 0.137 mg/actuat metered dose nasal spray (2 sources) Histamine-1 Receptor Antagonist Start: 4 take 2 spray(s) nasal route twice daily azelastine 0.1% nasal spray Use 2 Sprays in each nostril two times a day. 30 mL 11 08/30/2023 Active Comment on above: Use 2 Sprays in each nostril two times a day. benzonatate 200 mg oral capsule (3 sources) Non-narcotic Antitussive Start: 2 take 1 capsule by mouth three times daily as needed benzonatate (Tessalon) 200 MG capsule Take 200 mg by mouth 3 (three) times a day as needed. 0 03/27/2022 Active biotin 10 mg oral tablet (1 source) take 1 tablet by mouth at bedtime Biotin 03429 MCG TABS Take 1 tablet by mouth in the morning and at bedtime 0 Active Cranberry preparation (6 sources) Non-Standardized Food Allergenic Extract, Non-Standardized Plant Allergenic Extract Start: 4 cranberry 500 mg capsule Start: 06-28-2023 Cranberry 500 mg cap Cranberry 250 MG capsule diclofenac potassium 50 mg oral tablet (1 source) Nonsteroidal Anti-inflammatory Drug Start: 08-24-2023 take 1 tablet by mouth in the morning, then take 1 tablet by mouth at bedtime diclofenac (CATAFLAM) 50 mg tablet Take 1 tablet (50 mg total) by mouth in the morning and 1 tablet (50 mg total) before bedtime. 60 tablet 1 08/24/2023 Active docusate sodium 50 mg / sennosides, skilled nursing 8.6 mg oral tablet (3 sources) Start: 02-17-2022 take 1 tablet by mouth in the morning sennosides-docus ate sodium (SENOKOT-S) 8.6-50 mg Take 1 tablet by mouth in the morning and 1 tablet before bedtime. 0 02/17/2022 Active Start: 02-16-2022 take 1 tablet by landy th twice daily sennosides-docusate sodium (SENOKOT-S) 8.6-50 MG tablet Take 1 tablet by mouth 2 times daily 60 tablet 0 02/17/2022 Active esomeprazole 40 mg delayed release oral capsule (20 sources) Proton Pump Inhibitor Start: 10-19-2009 take 1 capsule by mouth once daily Esomeprazole Magnesium (Nexium) 40 mg Capsule,Delayed Release(Dr/Ec) Active 40 MG PO Daily May 17, 2018 1:00am take 40 mg by mouth once daily e someprazole Magnesium (NEXIUM) 40 MG PACK Take 40 mg by mouth daily. 0 Active Comment on above: Take 40 mg by mouth. estradiol 0.1 mg/ml vaginal cream (18 sources) Estrogen Start: 06-24-2023 estradiol (ESTRACE) 0.01 [...] the vaginal area three times a week etodolac 400 mg oral tablet (2 sources) Nonsteroidal Anti-inflammatory Drug Start: 07-06-2023 etodolac (Lodine) 400 MG tablet every 12 (twelve) hours 0 07/06/2023 Active ferrous sulfate 325 mg oral tablet (11 sources) Start: 04-14-2022 End: 04-09-2023 take 1 tablet by mouth once daily ferrous sulfate 325 mg (65 mg iron) tablet Take 1 tablet by mouth once daily. 0 04/14/2022 Active Start: 04-14-2022 take 1 tablet by landy th once daily at breakfast FeroSuL 325 mg (65 mg iron) tablet Take 1 tablet (325 mg total) by mouth daily with breakfast. 0 08/03/2022 Active Comment on above: Take 1 tablet by landy th daily with breakfast. Take 1 tablet by landy th once daily. fexofenadine hydrochloride 180 mg oral tablet (3 sources) Histamine-1 Receptor Antagonist fexofenadine (DINA ALLERGY) 180 mg tablet as needed. 0 Active Comment on above: as needed. fluconazole 150 mg oral tablet (3 sources) Azole Antifungal Start: 06-03-19 fluconazole (DIFLUCAN) 150 mg tablet as needed. 0 06/03/2023 Active Comment on above: as needed. fluticasone propionate 0.05 mg/actuat metered dose nasal spray (10 sources) Corticosteroid Start: 06-23-19 take 2 spray(s) nasal route in the morning fluticasone propionate (FLONASE) 50 mcg/actuation nasal spray Administer 2 sprays into each nostril in the morning. 0 06/23/2022 Active Start: 02-16-2022 take 2 spray(s) nasa l route once daily 2 spray, Each Nostril, DAILY, First dose on Wed02/16/22 at 1845, Until Discontinued Please select a reason the therapeutic interchange was not accepted: Okay for Pharmacy to Substitute Post-op fluticasone prop ionate (FLONASE NASAL) Use in the nose as needed. 0 Active Comment on above: Use in the nose as n eeded. FLUTICASONE PROPIONATE, INHAL, IN (3 sources) FLUTICASONE PROP IONATE, INHAL, IN Administer into affected nostril(s). 0 Active hydrocortisone 10 mg/ml / neomycin 3.5 mg/ml / polymyxin b 31378 unt/ml otic suspension (3 sources) Aminoglycoside Antibacterial, Polymyxin-class Antibacterial, Corticosteroid Start: 2021 End: 2023 [id number] ocortisone (Cortisporin) 3.5-12580-9 otic suspension instill 4 drops INTO AFFECTED [...] 07/12/2023 Discontinued ibuprofen 800 mg oral tablet (18 sources) Nonsteroidal Anti-inflammatory Drug Start: 2015 take [...] provided with radiology test) (1 source) Start: End: iv contrast (will be provided with radiology [...] administration guidelines link. Lactobacillus (2 sources) Start: Lactobacillus (Acidophilus Probiotic) 0.5 MG tablet lactobacillus acidophilus [id number] unt / pectin 10 mg oral capsule (4 sources) Start: acidophilus-pectin, citrus (PROBIOTIC ACIDOPHILUS-PECTIN) 100 million cell-10 mg cap lisinopril 20 mg oral tablet (20 sources) Angiotensin Converting Enzyme Inhibitor Start: End: take 20 mg by mouth once daily Lisinopril Active 20 MG PO Daily May 17, 2018 1:00am Comment on above: lisinopril 20 mg tab let Take 1 tablet every day by oral route. methenamine hippurate 1000 mg oral tablet (12 sources) Start: take 1 tablet by mouth twice daily at mealtime Methenamine Hippurate (HIPREX) 1 gram tablet Take 1 tablet by mouth two times a day with meals. 180 tablet 5 06/24/2023 Active Start: 06-05-2021 take 1 tablet by landy twice daily at mealtime Methenamine Hippurate (HIPREX) 1 gram tablet Take 1 tablet by mouth twice daily with meals. 60 tablet 11 06/05/2021 Active Comment on above: Take 1 tablet by landy th twice daily with meals. Take 1 tablet by landy two times a day with meals. methocarbamol 750 mg oral tablet (4 sources) Muscle Relaxant Start: 2022 take 1 tablet by mouth every twelve hours methocarbamol (ROBAXIN) 750 mg tablet Take 1 tablet by mouth every 12 hours. 0 07/29/2023 Active Comment on above: Take 1 tablet by landy th every 12 hours. methylPREDNISolone (1 source) Corticosteroid Start: 2022 methylPREDNISolone (MEDROL, CELIA,) 4 mg tablet follow package directions 21 tablet 0 09/01/2022 Active morphine (PF) injection 2 mg (1 source) Start: 2021 morphine (PF) injection 2 mg OXcarbazepine 150 mg oral tablet (1 source) Anti-epileptic Agent take 1 tablet by mouth twice daily OXcarbazepine (TRILEPTAL) 150 MG tablet Take 150 mg by mouth 2 times daily 0 Active Promethazine (1 source) Phenothiazine Start: 2021 promethazine (PHENERGAN) tablet 12.5 mg Sennosides (Senokot) 8.6 mg Tablet (2 sources) Start: 2017 take 8 tablets by mouth at bedtime Sennosides (Senokot) 8.6 mg Tablet Active 8 TAB PO Bedtime May 17, 2018 1:00am sennosides, skilled nursing 8.6 mg oral tablet (6 sources) Start: 2015 take 8.6 mg by mouth once daily Senokot 8.6 mg, Oral, Daily, Refills(s) 0, Constipation Start Date: 10/10/15 Status: Ordered tiZANidine 4 mg oral tablet (5 sources) Central alpha-2 Adrenergic Agonist Start: 2022 End: 2023 take 1 tablet by mouth three times daily as needed tiZANidine (ZANAFLEX) 4 mg tablet Take 1 tablet (4 mg total) by mouth 3 (three) times a day as needed. 0 07/07/2022 Active Start: 02-16-2022 End: 02-16-2022 tiZANidine (ZANAFLEX) tablet 4 mg traMADol hydrochloride 50 mg oral tablet (8 sources) Opioid Agonist Start: 12-23-2022 End: 08-24-2023 take 1 tablet by mouth twice daily as needed for pain traMADoL (ULTRAM) 50 mg tablet Indications: Disorder of sacrum Take 1 tablet (50 mg total) by mouth 2 (two) times a day as needed for pain. 14 tablet 0 08/24/2023 Active Start: 12-18-2020 take 1 tablet by landy th in the morning traMADol (Ultram) 50 MG tablet Take 50 mg by mouth in the morning. 0 10/29/2022 Active take 1 tablet by landy th every six hours as needed for pain traMADol (ULTRAM) 50 MG tablet Take 50 mg by mouth every 6 hours as needed for Pain. 0 Active traZODone hydrochloride 100 mg oral tablet (20 sources) Serotonin Reuptake Inhibitor Start: 10-19-2009 take 1 tablet by mouth once daily at bedtime traZODone (DESYREL) 100 mg tablet Take 100 mg by mouth daily at bedtime. 0 01/12/2019 Active Comment on above: Take 100 mg by mouth daily at bedtime. triamcinolone acetonide 1 mg/ml topical cream (3 sources) Corticosteroid Start: 06-30-2023 triamcinolone (Kenalog) 0.1 % cream Indications: Atrophic vaginitis Apply topically 2 (two) times a day 15 g 1 06/30/2023 Active Completed/Discontinued Medications Medication Drug Class(es) Dates Sig (Normalized) Sig (Original) acetaminophen 500 mg oral tablet (1 source) Start: 02-16-2022 End: 02-16-2022 acetaminophen (TYLENOL) tablet 1,000 mg acetaminophen 325 mg / HYDROcodone bitartrate 5 mg oral tablet (2 sources) Opioid Agonist Start: 02-23-2023 End: 08-30-2023 take 1-2 tablets by mouth every four to six hours as needed for pain HYDROcodone-acetam inophen (NORCO) 5-325 mg per tablet 1-2 tablets Orally every 4-6 hours PRN pain for 7 days 0 02/23/2023 08/30/2023 Discontinued (Course of therapy completed) Comment on above: 1-2 tablets Orally e very 4-6 hours PRN pain for 7 days amoxicillin 50 mg/ml oral suspension (1 source) Penicillin-class Antibacterial Start: 08-30-2023 End: 08-30-2023 amoxicillin 250 mg oral liquid (AMOXIL) Start: 08-30-2023 End: 08-30-2023 amoxicillin 250 mg oral liqu id (AMOXIL) baclofen 10 mg oral tablet (19 sources) gamma-Aminobutyric Acid-ergic Agonist Start: 02-16-2022 take [...] ringers infusion cefdinir 300 mg oral capsule (8 sources) Cephalosporin Antibacterial Start: 09-28-2022 End: 08-30-2023 cefdinir (OMNICEF) 300 mg capsule Start: 09-28-2022 take 2 capsules by m outh once daily cefdinir (OMNICEF) 300 mg capsule take 2 capsules by mouth once daily for 10 days 0 09/28/2022 Active Comment on above: take 2 capsules by m outh once daily for 10 days cetirizine hydrochloride 10 mg oral tablet (1 source) Histamine-1 Receptor Antagonist Start: 08-30-2023 End: 08-30-2023 cetirizine 10 mg tab(s) (ZYRTEC) Start: 08-30-2023 End: 08-30-2023 cetirizine 10 mg tab(s) (ZYR ZHANG) 1 ml dexamethasone phosphate 10 mg/ml injection (1 source) Corticosteroid Start: 02-16-2022 End: 02-17-2022 6 mg, IntraVENous, EVERY 8 HOURS, First dose on Wed02/16/22 at 2200, For 3 doses, Post-op famotidine 20 mg oral tablet (1 source) Histamine-2 Receptor Antagonist Start: 08-30-2023 End: 08-30-2023 famotidine 20 mg tab(s) (PEPCID) Start: 08-30-2023 End: 08-30-2023 famotidine 20 mg tab(s) (PEP STEFANIE) gabapentin 300 mg oral capsule (1 source) [...] Wed02/16/22 at 1819, Until Discontinued, Itching, Post-op mometasone furoate 0.05 mg/actuat metered dose nasal spray (8 sources) Corticosteroid Start: 12-18-2020 End: 08-30-2023 mometasone (NASONEX) 50 mcg/actuation nasal spray Daily 0 12/18/2020 08/30/2023 Discontinued (Course of therapy completed) Start: 12-18-2020 Mometasone (Na sonex) 50 mcg/actuation [place],Non-Aerosol Active 2 SPRAY INTRANASAL Daily December 18, 2020 12:00am mometasone (Naso nex) 50 MCG/ACT nasal spray 2 sprays. 0 Active take 2 spray(s) nasa l route once daily mometasone (NASONEX) 50 MCG/ACT nasal spray 2 sprays by Each Nostril route daily 0 Active Comment on above: Daily One A Day Women's Complete (1 source) Start: 1 One A Day Women's Complete Oral, Daily Start Date: 02/07/21 Status: Ordered pantoprazole 40 mg delayed release oral tablet (1 source) Proton Pump Inhibitor Start: 2 take 40 mg by mouth once daily 40 mg, Oral, DAILY, First dose on Wed02/16/22 at 1845, Until Discontinued Do not crush or break. Substitut ed for esomeprazole Post-op polyethylene glycol 3350 03148 mg powder for oral solution (1 source) Osmotic Laxative Start: 2 17 g, Oral, DAILY, First dose on Wed02/16/22 at 1845, Until Discontinued, Post-op predniSONE 20 mg oral tablet (2 sources) Start: 4 End: 4 predniSONE 40 mg tab(s) (DELTASONE) Start: 10-10-2022 End: 10-17-2022 take 3 tablets by mouth once daily predniSONE 20 mg Tab 60 mg = 3 tab(s), Oral, Daily, X 7 day(s), # 21 tab(s), Refills(s) 0 Start Date: 10/10/22 Stop Date: 10/17/22 Status: Ordered 5 ml sodium chloride 9 mg/ml injection [...] mg / trimethoprim 80 mg oral tablet (14 sources) Dihydrofolate Reductase Inhibitor Antibacterial, Sulfonamide Antimicrobial Start: 11-07-2021 End: 08-30-2023 sulfamethoxazole-trimethopri m (BACTRIM,SEPTRA) 400-80 mg per tablet Take by mouth once daily. 0 11/07/2021 08/30/2023 Discontinued (Course of therapy completed) Start: 12-18-2020 take 1 tablet by landy [...] daily. Take by mouth once d aily. vancomycin (VANCOCIN) 1,500 mg in dextrose 5 % 250 mL IVPB (1 source) Start: 02-16-2022 End: 02-17-2022 1,500 mg, IntraVENous, EVERY 12 HOURS, 1 dose, First dose on Wed02/16/22 at 1845 Antimicrobial Indications: Surgical Prophylaxis Post-op Problems Active Problems Problem Classification Problem Date Documented Date Episodic/Chronic Abdominal pain (6 sources) Left lower quadrant pain; Translations: [Generalized abdominal pain] Onset: 12-26-2021 Episodic Allergic reactions (7 sources) Allergic urticaria; Translations: [Allergy to penicillin] Onset: 10-22-2021 Episodic Chronic obstructive pulmonary disease and bronchiectasis (1 source) Bronchitis 08-11-2013 Episodic Coagulation and hemorrhagic disorders (15 sources) Platelet count below reference range; Translations: [...] vagina; Translations: [Postmenopausal atrophic vaginitis] Chronic Osteoarthritis (4 sources) Arthritis; Translations: [Osteoarthritis of left hip joint] Onset: 03-10-2017 02-07-2021 Chronic Other acquired deformities (1 source) Spondylolisthesis, site unspecified; Translations: [Spondylolisthesis, site unspecified] Onset: 01-11-2023 Episodic Other aftercare (1 source) Other usp (current) drug therapy; Translations: [OTH RESIDENTIAL CURRENT DRUG THERAPY] Onset: 10-09-2022 Episodic Other [...] IN LEFT ANKLE] Onset: 08-05-2022 Episodic Other non-traumatic joint disorders (1 source) Hip pain Onset: 08-24-2023 Episodic Other screening for suspected conditions (not [...] Spondylosis; intervertebral disc disorders; other back problems (2 sources) Lumbar spondylosis; Translations: [Spondylosis without myelopathy or radiculopathy, lumbar region] Onset: 03-09-2017 03-09-2017 Chronic Spondylosis; intervertebral disc disorders; other back problems (15 sources) Spinal stenosis of lumbar region; Translations: [Spinal stenosis, lumbar region with neurogenic claudication] Onset: 03-09-2017 Episodic Unclassified (1 source) PERSONAL HISTORY OF [...] for malignant neoplasm of breast] Onset: 02-22-2023 Urinary tract infections (8 sources) Recurrent urinary tract infection; Translations: [Urinary tract infection, site not specified] Onset: 11-11-2021 Episodic Past or Other Problems Problem Classification Problem Date Documented Date Episodic/Chronic Acquired foot deformities (4 sources) Valgus deformity, not elsewhere classified, left ankle; Translations: [VALGUS DEFORMITY NEC LEFT ANKLE] Onset: 11-03-2021 Episodic Deficiency and other anemia (15 sources) Iron deficiency anemia secondary to inadequate [...] OTH RSP MANF] Onset: 04-30-2022 Episodic Lymphadenitis (14 sources) Mediastinal lymphadenopathy; Translations: [Localized enlarged lymph nodes] Onset: 01-15-2021 01-15-2021 Episodic Malaise and fatigue (1 source) Weakness; Translations: [WEAKNESS] Onset: 01-30-2022 Episodic Other connective tissue disease (12 sources) Enthesopathy of ankle AND/OR tarsus; Translations: [Other enthesopathy of unspecified foot and ankle] Onset: 08-19-2009 07-21-2018 Episodic Other connective tissue disease (12 sources) Tibialis tendinitis; Translations: [Posterior tibial tendinitis, [...] IN LEFT FOOT] Onset: 10-20-2021 Episodic Other connective tissue disease (1 source) Trochanteric bursitis of left hip; Translations: [Trochanteric bursitis, left hip] Onset: 03-09-2017 03-09-2017 Episodic Other diseases of kidney and ureters (1 source) Cyst of kidney, acquired; Translations: [CYST OF KIDNEY ACQUIRED] Onset: 11-26-2021 Episodic Other hematologic conditions (13 sources) Cytopenia; Translations: [Disease of blood and blood-forming organs, unspecified] Onset: 01-15-2021 01-15-2021 Episodic Other lower respiratory disease (14 sources) Multiple nodules of lung; Translations: [Other [...] GAIT AND MOBILITY] Onset: 01-30-2022 Episodic Other non-traumatic joint disorders (1 source) Pain in right knee; Translations: [Pain in joint, lower leg] Onset: 05-31-2017 05-31-2017 Episodic Unclassified (1 source) COUGH, UNSPECIFIED; Translations: [COUGH, UNSPECIFIED] Onset: 04-28-2022 Unclassified (1 source) cervical pre cancer cell 10-19-2009 Results Test Name Value Interpretation Reference Range Facility [facility] 10-14-2023 [facility] Telephone (IFDSH[facility]) JESSICA FERRERA ([id number]) 1955 F Date Time Provider Department 10/14/23 JENNI CARDENAS IFDSHF During your visit today, we recorded the following information about you: Jenni Cardenas MD 10/14/2023 9:51 AM Signed Spoke to Ms Ferrera. Ok to cancel next appointment. She has been doing well on methanamine and following with urology. So far no recurrence of her UTI with the current treatment/preventativ e regimen. She is following with ortho who are planning for hip replacement for which she is working toward weight loss prior to the procedure. I did discuss the importance of judicious use of antibiotics and that treatment of asymptomatic bacteruria is not typically indicated prior to orthopedic procedures. Refer to my last note for further details. At this time she can feel free to call my should any questions arise regarding antibiotic recommendations (surgical or otherwise) or concerns for recurrent infection. Jenni Cardenas MD, PhD Staff, Infectious Disease [facility] Office [phone] Allergies As of Date: 10/14/2023 Noted Allergy Reaction CIPROFLOXACIN 06/05/2021 5 - Intolerance CLINDAMYCIN 01/23/2015 11 - Vomiting DOXYCYCLINE 05/14/2020 11 - Vomiting LEVAQUIN (LEVOFLOXACIN) 04/09/2022 17 - Myalgia MONISTAT 1 (TIOCONAZOLE) 01/23/2015 14 - Other: See Comments Comments: Burning of skin NITROFURANTOIN MONOHYD/M-CRYST 10/22/2021 8 - GI Upset 4 - Hives 9 - Itching 2 - Rash 7 - Swelling PENICILLINS 01/23/2015 2 - Rash Comments: Negative skin testing in allergy clinic 09/13/2023, but developed pruritus after step 1 of challenge. See note for full details. SKIN CLEANSER COMBINATION NO.17 09/01/2017 16 - Unknown Date Reviewed: 09/13/2023 Reviewed by: Ernie Ayers MD - Fully Assessed Reason for Visit: Patient Question [6937] Prescriptions as of 10/14/2023 - azelastine 0.1% nasal spray Use 2 Sprays in each nostril two times a day. - albuterol HFA (PROVENTIL HFA, VENTOLIN HFA) 90 mcg/actuation inhaler Take 2 Puffs by mouth as needed. - Cranberry 500 mg cap - ferrous sulfate 325 mg (65 mg iron) tablet Take 1 tablet by mouth once daily. - fexofenadine (DINA ALLERGY) 180 mg tablet as needed. - fluconazole (DIFLUCAN) 150 mg tablet as needed. - acidophilus-pectin, citrus (PROBIOTIC ACIDOPHILUS-PECTIN) 100 million cell-10 mg cap - methocarbamol (ROBAXIN) 750 mg tablet Take 1 tablet by mouth every 12 hours. - estradiol (ESTRACE) 0.01 % (0.1 mg/gram) vaginal cream Place a pea size amount in the vaginal area three times a week - Methenamine Hippurate (HIPREX) 1 gram tablet Take 1 tablet by mouth two times a day with meals. - fluticasone propionate (FLONASE NASAL) Use in the nose as needed. - baclofen (LIORESAL) 10 mg tablet Take 10 mg by mouth. - traZODone (DESYREL) 100 mg tablet Take [...] by mouth. Problem List As Of Date 10/14/2023 Noted Resolved Enthesopathy of ankle and tarsus [M77.50] 08/19/2009 Tibialis Tendinitis [M76.829] 08/19/2009 Thrombocytopenia (HCC) [D69.6] 07/15/2018 Mediastinal lymphadenopathy [R59.0] 01/15/2021 Pulmonary nodules [R91.8] 01/15/2021 Idiopathic cytopenia of undetermined significan*01/15/2021 Iron deficiency anemia secondary to inadequate *04/10/2022 Encounter Status:Closed by JENNI CARDENAS on 10/14/23 Normal [facility] CNOVon 08-30-2023 CNOV Office Visit (AAPMOC ) JESSICA FERRERA ([id number]) 1955 F Date Time Provider Department 08/30/23 1:30 PM [facility] During your visit today, we recorded the following information about you: Pulse Blood pressure Weight Height 88/minute 117/78 111 kg 1.626 m Ernie Ayers MD 09/13/2023 12:35 PM Signed [facility] ALLERGY AND IMMUNOLOGY CONSULT Patient Name: Jessica Ferrera PRIMARY CARE PHYSICIAN: Ricardo Hooper MD REASON FOR CONSULT: [facility] allergy REQUESTING PHYSICIAN: Jenni Cardenas MD My final recommendations will be communicated to the requesting health care provider by way of the shared medical record for internal providers or letter via the [employer] for external providers. CHIEF COMPLAINT: Patient presents with: New Patient HISTORY OF PRESENT ILLNESS: Jessica Ferrera is a 67 year old female with a history of PACHECO, HTN, diverticulosis, and frequent UTI who presents with hx of adverse reaction to penicillin and other medications, and rhinitis: Penicillins: - Early , took a combination of penicillin and tylenol 3. She had had dental work done, and took the medicine, developed SOB, and went to the hospital. Only remembers being observed, ?benadryl. Was not a life threatening situation, but was trouble breathing. Does not recall rash, or angioedema. Observed, and discharged from ER. Avoiding ever since. She has had tylenol 3 since. No recent AH. Nitrofurantoin: 2021: Treated for UTI and was given macrobid, but sx persisted and was switched to multiple medications, and when she returned to macrobid developed hives. Went to ER, and was started on an antihistamine. UTI affecting her 3 months. Ongoing question of UTI vs diverticulosis pain. Following with urology / ID. Cipro: nauseated Clindamycin: nauseated Doxycyline: nauseated Levofloxacin: joint pain Chronic rhinitis - Symptoms began 2018. - Symptoms include: sinus pressure. +runny nose, nasal congestion. - Symptoms are worse during spring AND fall season. - Triggers include going outside and symptoms within 5 minutes of going outside. - Has tried the following medications: flonase PRn. Symptom control on these medications was partially controlled. - Has had prior testing (20 years ago - doesn't recall results). Has not been on immunotherapy. - Has had 4-5 episodes of sinusitis requiring antibiotics in last 12 months. - Patient does not have decreased/absent sense of smell, or known nasal polyps. - Co-morbid conditions including atopic conditions include: noen - There is a family history of the following atopic conditions: denies. - Has seen pulmonary, and evaluation looked good, plan to touch base before Fall again. Current medications include: - Flonase PRN Having facial pain, down left side of her face. Saw ENT - and was told nothing wrong. Environmental history: Pets: cat(s)x4 Mite Proof Covers: No Bedrm Carpet Uibu-jq-Tdnn: Yes A/C: [place] Hobbies: +baking, traveling, gardening Work: retired Hx of rhinitis: as above Hx of asthma: denies, has been evaluated by pulmonary OSH Hx of eczema: denies Hx of drug allergy: as above Hx of food allergies: denies Hx of systemic rxn to stinging insects: denies Hx of recurrent infections: as above, UTI PAST MEDICAL HISTORY Diagnosis Date Blood clotting disorder (HCC) Lupus Anticoagulant- last (2) were negative Endometriosis Fibromyalgia Frequent UTI Iron deficiency anemia secondary to inadequate dietary iron intake 04/10/2022 Raynaud disease Thrombocytopenia (HCC) ACTIVE PROBLEM LIST Enthesopathy of Ankle and Tarsus Tibialis Tendinitis Thrombocytopenia (Hcc) Mediastinal Lymphadenopathy Pulmonary Nodules Idiopathic Cytopenia of Undetermined Significance (Icus) Iron Deficiency Anemia Secondary to Inadequate Dietary Iron Intake PAST SURGICAL HISTORY Procedure Laterality Date ANKLE SURGERY HX Left x 3 APPENDECTOMY APPENDECTOMY HX ARTHRP KNE CONDYLEANDPLATU MEDIALANDLAT COMPARTMENTS Left and Right CARPAL TUNNEL bilateral CYSTO.PANENDO 06/05/2021 CYSTOURETHROSCOPY 06/20/15 Cystoscopy; Dr. Lombarod; Leanne KENDALL [facility] SUR[facility]ERY HX Left HYSTERECTOMY HX 1994 left overy and hysterectomy. ROTATOR CUFF REPAIR 2013,2014 Left x 2 SHOULDER SURGERY HX Right TONSILLECTOMY HX TONSILLECTOMY HX FAMILY HISTORY Problem Relation Age of Onset Hyperlipidemia Mother Hypertension Father age 60 Cancer Father prostate and leukemia other (heart attack) Father Hypertension Brother Hypertension Brother Cancer Brother brain CA age 45 other (multiple myeloma) Son Social History Tobacco Use Smoking status: Never Smokeless tobacco: Never Vaping Use Vaping Use: Never used Substance Use Topics Alcohol use: Yes Comment: rare Drug use (more content not included)... Normal [facility] CNOVSPon 08-23-2023 CNOVSP Visit (SP) Office ([place]) JESSICA FERRERA ([id number]) 1955 F Date Time Provider Department 08/23/23 10:00 AM JOSE BRYANT HEMSTEFANO During your visit today, we recorded the following information about you: Temperature Pulse Respiration Blood pressure 97.9 degrees 73/minute 16/minute 152/92 Weight Height 112.4 kg 1.626 m Jose Bryant MD 08/23/2023 7:19 PM Signed NAME: Jessica Ferrera CLINIC NO.: [id number] DATE OF SERVICE: August 23, 2023 (Andra) Some elements in this clinic note that are critical to medical decision making have been carefully reviewed and included from a prior clinic note dated: July 08, 2023 (Andra) CHIEF COMPLAINT: followup for anemia ASSESSMENT: (D50.8) Iron deficiency anemia secondary to inadequate dietary iron intake (primary encounter diagnosis) Iron deficiency With anemia - improving. Responding to oral iron replacement ferrous sulfate 325 mg either to be taken twice a day or once every other day. Now at Hgb of 12.2 g/dL Pulmonary nodule is stable - since 03/2022 and is going to be following with pulmonary medicine soon. Flow cytometry with no evidence of CLL - (elevated lymphocyte count). PLAN: RTC in 6 months labs, same day to include anemia labs. - - HPI: CASE HISTORY: Reverse Chronological Order [...] 6-7 mm left upper lobe groundglass opacity. A/P: No evidence of splenomegaly or intra-abdominal/pelvi c lymphadenopathy. Sigmoid colon diverticulosis without evidence of diverticulitis. Small fat-containing umbilical hernia. 06/16/2018 - normal white blood cells and hemoglobin with a platelet count of 71,000. Restarted trazadone. 06/02/2018 - normal white blood cells and hemoglobin with a platelet count of 77,000. Stopped trazadone. 05/26/2018 - normal white blood cells and hemoglobin with a platelet count of 55,000. Stopped ibuprofen. 05/18/2018 - normal white blood cell count with normal white blood cell differential. Hemoglobin of 12.6 with an MCV of 85.3. Platelets of 69,000. 04/2017 - platelets were 263,000. Updated Visit, August 23, 2023: Doing well. Flow was negative for lymphoproliferative disorder.has been on iron 3 days / week. Anemia improved. Getting her hip replacement and is trying to lose weight to optimize her outcome. Traveling to [facility] soon and then [place]. Updated Visit, July 08, 2023: Jessica returns today. Ferratin is low today but she stopped her oral iron - restarted last week. Platelets are stable. Lymphocyte count is elevated, may need to consider flow cytometry. She had 3 UTIs over 4 months, she is now on an antibiotic daily - seeing an infectious disease doctor this month. March CT shows nodule has resolved - following with pulmonary. Also needs a hip replacement. She and her son are still having difficulties with their relationship. She is going to [facility] and [place] later this year, hopefully after her hip replacement. Updated Visit, October 07, 2022: Leaving for [facility] next week. Has all of her shots and prophylaxis for malaria. Anemia corrected on oral iron therapy. Doing well despite back pain which is chronic. Also recovering f (more content not included)... Normal [facility] CBC W Auto Differential pane l (Bld)on 08-16-2023 Basophils (Bld) [#/Vol] 0.07 10*3/uL Normal <0.11 [facility] Comment on above: Order Comment: Speci men Type: BLOOD SPECIMENOrdering Facility: [facility] Address: [address] [place] [address] Performed By: #### 5 7021-8 ####[facility] LABCLIA [id number] [place] [address] Basophils/100 WBC (Bld) 0.9 % Normal [facility] Comment on above: Order Comment: Speci men Type: BLOOD SPECIMENOrdering Facility: [facility] Address: [address] [place] [address] Performed By: #### 5 7021-8 ####[facility] LABCLIA [id number] [place] [address] Differential cell count method Nom (Bld) Auto Normal [facility] Comment on above: Order Comment: Speci men Type: BLOOD SPECIMENOrdering Facility: [facility] Address: [address] [place] [address] Performed By: #### 5 7021-8 ####[facility] LABCLIA [id number] [place] [address] Eosinophils (Bld) [#/Vol] 0.37 10*3/uL Normal <0.46 [facility] Comment on above: Order Comment: Speci men Type: BLOOD SPECIMENOrdering Facility: [facility] Address: [address] [place] [address] Performed By: #### 5 7021-8 ####[facility] LABCLIA [id number] [place] [address] Eosinophils/100 WBC (Bld) 5.0 % Normal [facility] Comment on above: Order Comment: Speci men Type: BLOOD SPECIMENOrdering Facility: [facility] Address: [address] [place] [address] Performed By: #### 5 7021-8 ####[facility] LABCLIA [id number] [place] [address] Erythrocyte distribution width (RBC) [Ratio] 15.3 % High 11.5-15.0 [facility] Comment on above: Order Comment: Speci men Type: BLOOD SPECIMENOrdering Facility: [facility] Address: [address] [place] [address] Performed By: #### 5 7021-8 ####[facility] LABCLIA [id number] [place] [address] Hematocrit (Bld) [Volume fraction] 43.4 % Normal 36.0-46.0 [facility] Comment on above: Order Comment: Speci men Type: BLOOD SPECIMENOrdering Facility: [facility] Address: [address] [place] [address] Performed By: #### 5 7021-8 ####[facility] LABCLIA [id number] [place] [address] Hemoglobin (Bld) [Mass/Vol] 13.6 g/dL Normal 11.5-15.5 [facility] Comment on above: Order Comment: Speci men Type: BLOOD SPECIMENOrdering Facility: [facility] Address: [address] [place] [address] Performed By: #### 5 7021-8 ####[facility] LABCLIA [id number] [place] [address] Immature granulocytes (Bld) [#/Vol] 10*3/uL Normal <0.10 [facility] Comment on above: Order Comment: Speci men Type: BLOOD SPECIMENOrdering Facility: [facility] Address: [address] [place] [address] Performed By: #### 5 7021-8 ####[facility] LABCLIA [id number] [place] [address] Immature granulocytes/100 WBC (Bld) 0.1 % Normal [facility] Comment on above: Order Comment: Speci men Type: BLOOD SPECIMENOrdering Facility: [facility] Address: [address] [place] [address] Performed By: #### 5 7021-8 ####[facility] LABCLIA [id number] [place] [address] Lymphocytes (Bld) [#/Vol] 3.85 10*3/uL Normal 1.00-4.00 [facility] Comment on above: Order Comment: Speci men Type: BLOOD SPECIMENOrdering Facility: [facility] Address: [address] [place] [address] Performed By: #### 5 7021-8 ####[facility] LABCLIA [id number] [place] [address] Lymphocytes/100 WBC (Bld) 52.2 % Normal [facility] Comment on above: Order Comment: Speci men Type: BLOOD SPECIMENOrdering Facility: [facility] Address: [address] [place] [address] Performed By: #### 5 7021-8 ####[facility] LABCLIA [id number] [place] [address] MCH (RBC) [Entitic mass] 27.9 pg Normal 26.0-34.0 [facility] Comment on above: Order Comment: Speci men Type: BLOOD SPECIMENOrdering Facility: [facility] Address: [address] [place] [address] Performed By: #### 5 7021-8 ####[facility] LABCLIA [id number] [place] [address] MCHC (RBC) [Mass/Vol] 31.3 g/dL Normal 30.5-36.0 [facility] Comment on above: Order Comment: Speci men Type: BLOOD SPECIMENOrdering Facility: [facility] Address: [address] [place] [address] Performed By: #### 5 7021-8 ####[facility] LABCLIA [id number] [place] [address] MCV (RBC) [Entitic vol] 89.1 fL Normal 80.0-100.0 C [facility] Comment on above: Order Comment: Speci men Type: BLOOD SPECIMENOrdering Facility: [facility] Address: [address] [place] [address] Performed By: #### 5 7021-8 ####[facility] LABCLIA [id number] [place] [address] Monocytes (Bld) [#/Vol] 0.79 10*3/uL Normal <0.87 [facility] Comment on above: Order Comment: Speci men Type: BLOOD SPECIMENOrdering Facility: [facility] Address: [address] [place] [address] Performed By: #### 5 7021-8 ####[facility] LABCLIA [id number] [place] [address] Monocytes/100 WBC (Bld) 10.7 % Normal C [facility] Comment on above: Order Comment: Speci men Type: BLOOD SPECIMENOrdering Facility: [facility] Address: [address] [place] [address] Performed By: #### 5 7021-8 ####[facility] LABCLIA [id number] [place] [address] Neutrophils (Bld) [#/Vol] 2.29 10*3/uL Normal 1.45-7.50 [facility] Comment on above: Order Comment: Speci men Type: BLOOD SPECIMENOrdering Facility: [facility] Address: [address] [place] [address] Performed By: #### 5 7021-8 ####[facility] LABCLIA [id number] [place] [address] Neutrophils/100 WBC (Bld) 31.1 % Normal [facility] Comment on above: Order Comment: Speci men Type: BLOOD SPECIMENOrdering Facility: [facility] Address: [address] [place] [address] Performed By: #### 5 7021-8 ####[facility] LABCLIA [id number] [place] [address] Nucleated RBC (Bld) [#/Vol] 10*3/uL Normal <0.01 [facility] Comment on above: Order Comment: Speci men Type: BLOOD SPECIMENOrdering Facility: [facility] Address: [address] [place] [address] Performed By: #### 5 7021-8 ####[facility] LABCLIA [id number] [place] [address] Nucleated RBC/100 WBC (Bld) [Ratio] 0.0 /100 WBC Normal [facility] Comment on above: Order Comment: Speci men Type: BLOOD SPECIMENOrdering Facility: [facility] Address: [address] [place] [address] Performed By: #### 5 7021-8 ####[facility] LABIA [id number] [place] [address] Platelet mean volume (Bld) [Entitic vol] 10.6 fL Normal 9.0-12.7 [facility] Comment on above: Order Comment: Speci men Type: BLOOD SPECIMENOrdering Facility: [facility] Address: [address] [place] [address] Performed By: #### 5 7021-8 ####[facility] LABCLIA [id number] [place] [address] Platelets (Bld) [#/Vol] 250 10*3/uL Normal 150-400 [facility] Comment on above: Order Comment: Speci men Type: BLOOD SPECIMENOrdering Facility: [facility] Address: [address] [place] [address] Performed By: #### 5 7021-8 ####[facility] LABIA [id number] [place] [address] RBC (Bld) [#/Vol] 4.87 10*6/uL Normal 3.90-5.20 [facility] Comment on above: Order Comment: Speci men Type: BLOOD SPECIMENOrdering Facility: [facility] Address: [address] [place], [place] [address] Performed By: #### 5 7021-8 ####[facility] LABCLIA [id number] [place] [address] WBC (Bld) [#/Vol] 7.38 10*3/uL Normal 3.70-11.00 [facility] Comment on above: Order Comment: Speci men Type: BLOOD SPECIMENOrdering Facility: [facility] Address: [address] [place] [address] Performed By: #### 5 7021-8 ####[facility] LABCLIA [id number] [place] [address] Comprehensive metabolic 2000 panelon 08-16-2023 Albumin [Mass/Vol] 4.2 g/dL Normal 3.9-4.9 [facility] Comment on above: Order Comment: Speci men Type: BLOOD SPECIMENOrdering Facility: [facility] Address: [address] [place] [address] Performed By: #### 2 4323-8, 2532-0 ####[facility] LABCLIA [id number] [place] [address] ALP [Catalytic activity/Vol] 79 U/L Normal 34-123 [facility] Comment on above: Order Comment: Speci men Type: BLOOD SPECIMENOrdering Facility: [facility] Address: [address] [place] [address] Performed By: #### 2 4323-8, 2532-0 ####[facility] LABCLIA [id number] [place] [address] ALT [Catalytic activity/Vol] 27 U/L Normal 7-38 [facility] Comment on above: Order Comment: Speci men Type: BLOOD SPECIMENOrdering Facility: [facility] Address: [address] [place], [place] [address] Performed By: #### 2 4323-8, 2532-0 ####[facility] LABCLIA [id number] [place] [address] Anion gap [Moles/Vol] 13 mmol/L Normal 9-18 [facility] Comment on above: Order Comment: Speci men Type: BLOOD SPECIMENOrdering Facility: [facility] Address: [address] [place] [address] Performed By: #### 2 4323-8, 2531-0 ####[facility] LABCLIA [id number] [place] [address] AST [Catalytic activity/Vol] 23 U/L Normal 13-35 [facility] Comment on above: Order Comment: Speci men Type: BLOOD SPECIMENOrdering Facility: [facility] Address: [address] [place] [address] Performed By: #### 2 4323-8, 2531-0 ####[facility] LABCLIA [id number] [place] [address] Bilirubin [Mass/Vol] 0.2 mg/dL Normal 0.2-1.3 [facility] Comment on above: Order Comment: Speci men Type: BLOOD SPECIMENOrdering Facility: [facility] Address: [address] [place] [address] Performed By: #### 2 4323-8, 2531-0 ####[facility] LABCLIA [id number] [place] [address] Calcium [Mass/Vol] 9.9 mg/dL Normal 8.5-10.2 [facility] Comment on above: Order Comment: Speci men Type: BLOOD SPECIMENOrdering Facility: [facility] Address: [address] [place] [address] Performed By: #### 2 4323-8, 2531-0 ####[facility] LABCLIA [id number] [place] [address] Chloride [Moles/Vol] 107 mmol/L High 97-105 [facility] Comment on above: Order Comment: Speci men Type: BLOOD SPECIMENOrdering Facility: [facility] Address: [address] [place] [address] Performed By: #### 2 4323-8, 2531-0 ####[facility] LABCLIA [id number] [place] [address] CO2 [Moles/Vol] 22 mmol/L Normal 22-30 [facility] Comment on above: Order Comment: Speci men Type: BLOOD SPECIMENOrdering Facility: [facility] Address: [address] [place] [address] Performed By: #### 2 4323-8, 2531-0 ####[facility] LABCLIA [id number] [place] [address] Creatinine [Mass/Vol] 1.02 mg/dL High 0.58-0.96 [facility] Comment on above: Order Comment: Speci men Type: BLOOD SPECIMENOrdering Facility: [facility] Address: [address] [place] [address] Performed By: #### 2 4323-8, 2531-0 ####[facility] LABCLIA [id number] [place] [address] Creatinine and Glomerular filtration rate.predicted panel (S/P/Bld) 61 mL/min/1.73m??? Normal >=60 [facility] Comment on above: Order Comment: Speci men Type: BLOOD SPECIMENOrdering Facility: [facility] Address: [address] [place] [address] Result Comment: Abigail mated Glomerular Filtration Rate [...] reflect actual GFR. Performed By: #### 2 4323-8, 2531-0 ####[facility] LABCLIA [id number] [place] [address] Glucose [Mass/Vol] 92 mg/dL Normal 74-99 [facility] Comment on above: Order Comment: Speci men Type: BLOOD SPECIMENOrdering Facility: [facility] Address: [address] [place], [place] [id number] Result Comment: The [place] Diabetes Association (ADA) provides guidance for cutoff [...] Standards of Medical Care in Diabetes 2016, [place] [employer]. Diabetes Care. 2016.39(Suppl 1). Performed By: #### 2 4323-8, 0 ####[facility] LABCLIA [id number] [place] [address] Potassium [Moles/Vol] 4.4 mmol/L Normal 3.7-5.1 [facility] Comment on above: Order Comment: Speci men Type: BLOOD SPECIMENOrdering Facility: [facility] Address: [address] [place] [address] Performed By: #### 2 4323-8, 0 ####[facility] LABCLIA [id number] [place] [address] Protein [Mass/Vol] 6.5 g/dL Normal 6.3-8.0 [facility] Comment on above: Order Comment: Speci men Type: BLOOD SPECIMENOrdering Facility: [facility] Address: [address] [place] [address] Performed By: #### 2 4323-8, 2531-0 ####[facility] LABCLIA [id number] [place] [address] Sodium [Moles/Vol] 142 mmol/L Normal 136-144 [facility] Comment on above: Order Comment: Speci men Type: BLOOD SPECIMENOrdering Facility: [facility] Address: [address] [place] [address] Performed By: #### 2 4323-8, 2532-0 ####[facility] LABCLIA [id number] [place] [address] Urea nitrogen [Mass/Vol] 13 mg/dL Normal 7-21 [facility] Comment on above: Order Comment: Speci men Type: BLOOD SPECIMENOrdering Facility: [facility] Address: [address] [place] [address] Performed By: #### 2 4323-8, 2532-0 ####[facility] LABCLIA [id number] [place] [address] FLOW CYTOMETRY FOR LEUKEMIA/ LYMPHOMA (FCLL) PERFORMABLEon 08-16-2023 FLOW CYTOMETRY ORDER STATUS See Results in chart under F case ID Normal [facility] Comment on above: Order Comment: Speci men Type: BLOOD SPECIMENOrdering Facility: [facility] Address: [address] [place] [address] Performed By: #### F CLLRFLX, FCLLP ####[facility] LABCLIA [id number] [address] [address] [place] FLOW CYTOMETRY FOR LEUKEMIA/ LYMPHOMA (FCLL) REFLEXon 08-16-2023 DIAGNOSIS COMMENT Normal [facility] Comment on above: Order Comment: Speci men Type: BLOOD SPECIMENOrdering Facility: [facility] Address: [address] [place] [address] Result Comment: This test was developed and its performance characteristics determined by [facility]'s Harinder JLalitha [facility] Pathology and Laboratory Medicine [place] ([facility]). It has not been cleared or approved by the FDA. -[facility] is regulated under CLIA as qualified to perform high-complexity testing. This test is used for clinical purposes. It should not be regarded as investigational or for research. Performed By: #### F CLLRFLX, FCLLP ####[facility] LABCLIA [id number] [place] [address] [place] FINAL PERFORMING LAB Normal [facility] Comment on above: Order Comment: Speci men Type: BLOOD SPECIMENOrdering Facility: [facility] Address: [address] [place] [address] Result Comment: Diag nostic interpretation performed at [facility], [address] [place] [address] CLIA# [id number] Quality Assurance Coach: Norberto Strickland M.D. Performed By: #### F CLLRFLX, FCLLP ####[facility] LABCLIA [id number] [address] [place] [facility] FLOW CYTOMETRY RESULTS Normal [facility] Comment on above: Order Comment: Speci men Type: BLOOD SPECIMENOrdering Facility: [facility] Address: [address] [place] [address] Result Comment: Spec imen type: Peripheral blood CBC (08/16/2023): WBC = 7.31 K/uL; Hgb = 13.8 g/dL; Plt = 244 K/uL Differential (%): Neutrophil: 33; Lymphocyte: 52; Monocyte: 11; Eosinophil: 3; Basophil: 1 Morphology: Morphologically unremarkable peripheral blood smear. Viability: 99% Flow Cytometry Peripheral Blood Immunophenotyping Marker Normal Cell Type Result (Lymphocytes) CD2 T/NK cells Normal Pattern CD3 T-cells Normal Pattern CD4 T-cell subset Normal Pattern CD5 T-cells Normal Pattern CD7 T/NK-cells Normal Pattern CD8 T-cell subset Normal Pattern CD10 B-cell subset Normal Pattern CD13 Myeloid Normal Pattern CD16/56 NK cells Normal Pattern CD19 B-cells Normal Pattern CD20 B-cells Normal Pattern CD23 B-cells subset Normal Pattern CD45 Tello-leukocyte Normal Pattern CD123 Dendritic Normal Pattern CD200 B-cells Normal Pattern kappa/lambda B-cells Normal Pattern TRBC1 T-cells Normal, polytypic Flow cytometric analysis of the peripheral blood reveals that 40% of total events have the CD45 and side scatter properties of lymphocytes. The lymphocytes are composed of a mixture of heterogeneous T cells (79%; CD4:CD8 ratio = 1.17), NK cells (7%) and polytypic B cells (14%). Granulocytic elements are 23% of the events. Performed By: #### F CLLRFLXAILYNP ####[facility] LABCLIA [id number] [place] [address] [place] GROSS DESCRIPTION A. BLOOD Normal [facility] Comment on above: Order Comment: Speci men Type: BLOOD SPECIMENOrdering Facility: [facility] Address: [address] [place] [address] Result Comment: Rece ived two 4 mL EDTA peripheral blood tubes. Performed By: #### F CLLRFLXAILYNP ####[facility] LABCLIA [id number] [place] [address] [place] INTERPRETATION Normal [facility] Comment on above: Order Comment: Speci edmund Type: BLOOD SPECIMENOrdering Facility: [facility] Address: [address] [place] [address] Result Comment: Ther e is no immunophenotypic evidence of involvement by a lymphoproliferative disorder. Correlation with the clinical findings is suggested. SB/MIREYA 08/17/2023 Performed By: #### F CLLRFLX FCPHOENIXP ####[facility] LABCLIA [id number] [place] [address] [place] LDH SerPl-cCncon 08-16-2023 LDH [Catalytic activity/Vol] 199 U/L Normal 135-214 [facility] Comment on above: Order Comment: Bonnyi edmund Type: BLOOD SPECIMENOrdering Facility: [facility] Address: [address] [place] [address] Performed By: #### 2 4323-8, 2532-0 ####[facility] LABCLIA [id number] [place] [address] CT ABD/PEL WO IVCONon 2023 CT ABD/PEL WO IVCON * * *Final Report* * * DATE OF EXAM: Aug 05 2023 9:00AM [facility] 0531 - CT ABD/PEL WO IVCON / PROCEDURE REASON: Generalized abdominal pain * * * * Physician Interpretation * * * * RESULT: EXAMINATION: CT ABDOMEN AND PELVIS WITHOUT IV CONTRAST CLINICAL HISTORY: Generalized abdominal pain TECHNIQUE: CT of the abdomen and pelvis was performed using standard technique, scanning from just above the dome of the diaphragm to the symphysis pubis. MQ: CTAP_3 Contrast: None. Oral: None. CT Radiation dose: Integrated Dose-length product (DLP) for this visit = 1406 mGy*cm. CT Dose Reduction Employed: Automated exposure control (AEC) COMPARISON: 07/11/2018 RESULT: Liver: Unremarkable unenhanced liver. Biliary Tract: No bile duct dilation. Gallbladder present. Spleen: No splenomegaly. Pancreas: No discrete mass is appreciated on these unenhanced images. No ductal dilatation. Adrenal glands: No mass. Kidneys: 3 mm nonobstructive mid pole right renal calculus is appreciated. 1.7 cm exophytic left renal hypodensity likely relates to a cyst, progressed in size. GI Tract: No bowel wall thickening or dilation. Sigmoid diverticulosis, without CT evidence for acute diverticulitis. Small hiatal hernia is noted. Lymph nodes: No substantial abdominal or pelvic lymphadenopathy is appreciated. Mesentery/Peritoneum: No ascites or mass. Retroperitoneum: No mass. Nonspecific nodular focus measuring approximately 1.8 x 0.8 cm along the course of the left gonadal vein is stable, likely related to prominent venous channels or postoperative change. Vasculature: Arterial atherosclerotic disease without aneurysm. No abdominal aortic or iliac artery aneurysm. Pelvis: No free fluid or pelvic mass. The uterus is absent. Images through the lower pelvis are limited secondary to metallic artifact from indwelling right hip prosthesis. Bones/Soft Tissues: Degenerative and postoperative changes involving the lumbar spine are again noted. No osseous destructive process is appreciated. Lower Thorax: Small hiatal hernia. Mild elevation of the right hemidiaphragm is appreciated. [employer] (topogram) images: No additional findings. IMPRESSION: 1. Nonobstructive right-sided nephrolithiasis. 2. Mild sigmoid diverticulosis, without CT evidence for acute diverticulitis. Transcribe Date/Time: Aug 05 2023 9:47A Dictated by: JACEY FRANCOIS MD This examination was interpreted and the report reviewed and electronically signed by: JACEY FRANCOIS MD on Aug 05 2023 11:02AM EST Thank you for allowing us to participate in the care of your patient. Should there be any questions regarding this interpretation, please call [phone]. If you are unable to reach us at the number above, please feel free to contact [facility] eRadiology at [phone]. [id number] Normal [facility] CNOVon 07-21-2023 CNOV Office Visit (IFDREJ ) JESSICA FERRERA ([id number]) 1955 F Date Time Provider Department 07/21/23 2:00 PM JENNI CARDENAS IFDREJ During your visit today, we recorded the following information about you: Temperature Pulse Blood pressure Weight 97.8 degrees 85/minute 150/90 115.2 kg Height 1.626 m Jenni Cardenas MD 07/22/2023 4:21 PM Signed .INFECTIOUS DISEASES CONSULT SERVICE DATE: 07/21/2023 Jessica Ferrera is being seen in consultation at the request of Dr. Dallas Lombardo for advice and/or opinion regarding the management of recurrent UTI. Subjective HISTORY HPI: Jessica Ferrera is a 67 year old female h/o endometriosis, fibromyalgia, iron deficiency anemia, raynaud disease, diverticulosis, atrophic vaginitis, renal stones, hx of recurrent UTI who was referred to ID clinic due to her history of recurrent UTI. UTI started years prior in 2017 after a hip surgery but then got worse in 2021 when she went for a back surgery. She states prior to her back surgery presurgical work up included a urine culture that was positive, she states she was treated with multiple antibiotic regimens to clear the urine prior to the surgery. She state that her main UTI symptom is bladder pressure. She notes that this improves with antibiotics, stating that if not on antibiotics the bladder pressure/abdominal pain gets worse. She denies any fevers, chills, dyuria, frequency or urgency when the bladder pain occurs. She describes occasional incontinence. She notes that it tends to localize to the left side of her bladder. She does have chronic arthritis of the left hip for which she says she may need a hip replacement soon. The pain can at times be severe and radiate to her groin but she does not feel there is an association with her abdominal pain. Patient has been following with urology for recurrent UTIs. Notably had UTI in November and March at an outside facility which was treated with IV antibiotics. Of note she has multiple antibiotic allergies listed including ciprofloxacin, clindamycin, doxycycline, Levaquin, Macrobid, penicillin, many of which are documented as an intolerance or vomiting. Last available urine culture was from 12/21/22 which grew an ESBL E coli (S to macrobid, gent, carbs, etc. and R to bactrim, levofloxacin, etc.). Urine culture from 04/27/23, provided by patient, with e col, ESBL. Urological workup included a bladder ultrasound with a PVR of 0 will mL during her last visit with urology. Prior CT scan of the abdomen and pelvis on 04/02/2020 demonstrated 3 mm nonobstructing right renal calculi with no obstructive uropathy. Her last follow-up with urology was on 06/24/2023 during which they recommended estrogen cream for atrophic vaginitis, probiotics, and bowel regimen. She has been on the vaginal estrogen cream for about 2 weeks now and was also started on methenamine, she notes improvement in her symptoms with these interventions so far. REVIEW OF SYSTEMS Otherwise reviewed and negative x 14 except as noted above ALLERGIES Allergen Reactions Ciprofloxacin Intolerance Clindamycin Vomiting Doxycycline Vomiting Levaquin [Levofloxa* Myalgia Monistat 1 [Tiocona* Other: See Comments Burning of skin Nitrofurantoin [place]* GI Upset, Hives, Itching, Rash, Swelling Penicillins Shortness of Breath Skin Cleanser Combi* Unknown PAST MEDICAL HISTORY: PAST MEDICAL HISTORY Diagnosis Date Blood clotting disorder (HCC) Lupus Anticoagulant- last (2) were negative Endometriosis Fibromyalgia Frequent UTI Iron deficiency anemia secondary to inadequate dietary iron intake 04/10/2022 Raynaud disease Thrombocytopenia (HCC) PAST SURGICAL HISTORY: PAST SURGICAL HISTORY Procedure Laterality Date ANKLE SURGERY HX Left x 3 APPENDECTOMY APPENDECTOMY HX ARTHRP KNE CONDYLEANDPLATU MEDIALANDLAT COMPARTMENTS Left and Right CARPAL TUNNEL bilateral CYSTO.PANENDO 06/05/2021 CYSTOURETHROSCOPY 06/20/15 Cystoscopy; Dr. Lombardo; [place] [facility] HX Left HYSTERECTOMY HX 1994 left overy and hysterectomy. ROTATOR CUFF REPAIR 2013,2014 Left x 2 SHOULDER SURGERY HX Right TONSILLECTOMY HX TONSILLECTOMY HX FAMILY HISTORY: FAMILY HISTORY Problem Relation Age of Onset Hyperlipidemia Mother Hypertension Father age 60 Cancer Father prostate and leukemia other (heart attack) Father Hypertension Brother Hypertension Brother Cancer Brother brain CA age 45 other (multiple myeloma) Son SOCIAL HISTORY: Reviewed, no pertinent social history Social History Tobacco Use Smoking status: Never Smokeless tobacco: Never Vaping Use Vaping Use: Never used Substance Use Topics Alcohol use: Yes Comment: rare Drug use: No MEDICATIONS: Current Outpatient Medications Medication Sig estradiol (ESTRACE) 0.01 % (0.1 mg/gram) vaginal cre (more content not included)... Normal [facility] CNPCesia 07-12-2023 CNPN Telephone (HEMASA) JESSICA FERRERA ([id number]) 1955 F Date Time Provider Department 07/12/23 PATRICIA EUGENE During your visit today, we recorded the following information about you: Patricia Eugene, RN 07/12/2023 1:32 PM Signed Hi Doctor Andra, When I was in [...] July if that's possible? Thank you, Jessica Pippa: please advise. If agreeable to move appt sooner, labs will need reordered with date change Jose Ashley MD 07/12/2023 5:02 PM Signed Sure - she can get the blood work done anytime - July is fine. I would want to see her 1 week after. Patricia Eugene RN 07/13/2023 9:46 AM Signed Pippa: Current lab orders expected by date in December. (Cannot use >30 days) Pended new orders for July. Do you need the iron and B12 studies repeated again? I did not pend those, as they were completed 07/05/23. Please sign PSS: Please schedule pt for lab in July and Pippa 1 week following lab. VM left with pt to notify of plan and provided # to call for scheduling. NING Delatorrekins Anne Harper 07/13/2023 10:53 AM Signed Patient called back she is scheduled for appts Jose Bryant MD 07/13/2023 11:21 AM Signed Just need FLOW and CBC, CMP, LDH. Thanks - we can cancel FLOW order for December. Patricia Eugene RN 07/13/2023 11:25 AM Signed Lab aware and note placed in December lab appt to NOT DRAW flow at that time. Patricia Eugene RN Allergies As of Date: 07/12/2023 Noted Allergy Reaction CIPROFLOXACIN 06/05/2021 5 - [...] NO.17 09/01/2017 16 - Unknown Date Reviewed: 07/08/2023 Reviewed by: Gayle Glover - Fully Assessed Reason for Visit: Appointment [186] Primary Visit Diagnosis:Thrombocyto penia (HCC) [D69.6] Other Visit Diagnoses:Lymphocytos is [D72.820] Mediastinal lymphadenopathy [R59.0] Order(s):CBC + DIFF [SQCBCDIF] Order #: [id number] FUTURE COMP METABOLIC PANEL [SQCMP] Order #: [id number] FUTURE LD LACTATE DEHYDRO [SQLD6] Order #: [id number] FUTURE FLOW CYTOMETRY FOR LEUKEMIA/LYMPHOMA (FCLL) [YCW5749] Order #: [id number] FUTURE Prescriptions as of 07/13/2023 - estradiol (ESTRACE) 0.01 % (0.1 mg/gram) vaginal cream Place a pea size amount in the vaginal area three times a week - Methenamine Hippurate (HIPREX) 1 gram tablet Take 1 tablet by mouth two times a day with meals. - cefdinir (OMNICEF) 300 mg capsule - fluticasone propionate (FLONASE NASAL) Use in the nose as needed. - sulfamethoxazole-trim ethoprim (BACTRIM,SEPTRA) 400-80 mg per tablet Take by mouth once daily. - baclofen (LIORESAL) 10 mg tablet Take 10 mg by mouth. - traZODone (DESYREL) 100 mg tablet Take [...] by mouth. Problem List As Of Date 07/12/2023 Noted Resolved Enthesopathy of ankle and tarsus [M77.50] 08/19/2009 Tibialis Tendinitis [M76.829] 08/19/2009 Thrombocytopenia (HCC) [D69.6] 07/15/2018 Mediastinal lymphadenopathy [R59.0] 01/15/2021 Pulmonary nodules [R91.8] 01/15/2021 Idiopathic cytopenia of undetermined significan*01/15/2021 Iron deficiency anemia secondary to inadequate *04/10/2022 Encounter Status:Closed by PATRICIA EUGENE on 07/13/23 [facility] CNOVSPon 07-08-2023 CNOVSP Visit (SP) Office (HEMASA) JESSICA FERRERA ([id number]) 1955 F Date Time Provider Department 07/08/23 10:45 AM JOSE BRYANT HEMSTEFANO During your visit today, we recorded the following information about you: Temperature Pulse Respiration Blood pressure 97.8 degrees 80/minute 18/minute 137/84 Weight Height 115.6 kg 1.626 m Jose Bryant MD 07/10/2023 11:47 AM Signed NAME: Jessica Ferrera CLINIC NO.: [id number] DATE OF SERVICE: July 08, 2023 (Andra) Some elements in this clinic note [...] include flow cytometry 1 week before - [facility] Clinical Note Previous notes reviewed today [...] with more than 50% of the total rtak-zi-ogbi time of the visit in counseling / coordination of care. Yo Morse MD, MS Plugmanvacuum metalizer operator Hematology and Medical Oncology [address] [place], [place] [id number] Labs and Imaging Reviewed outside records provided prior to this visit and those in [facility]. as diagnosed by Dr. Morse [facility]. No evidence of a paraprotein. [...] mild dysmegakaryopoie (more content not included)... Normal [facility] CBC W Auto Differential pane l (Bld)on 07-05-2023 Basophils (Bld) [#/Vol] 0.09 10*3/uL Normal <0.11 [facility] Comment on above: Order Comment: Speci men Type: BLOOD SPECIMENOrdering Facility: [facility] Address: [address] [place] [address] Performed By: #### 5 7021-8 ####[facility] LABCLIA [id number] [place] [address] Basophils/100 WBC (Bld) 1.1 % Normal C [facility] Comment on above: Order Comment: Speci men Type: BLOOD SPECIMENOrdering Facility: [facility] Address: [address] [place] [address] Performed By: #### 5 7021-8 ####[facility] LABCLIA [id number] [place] [address] Differential cell count method Nom (Bld) Auto Normal [facility] Comment on above: Order Comment: Speci men Type: BLOOD SPECIMENOrdering Facility: [facility] Address: [address] [place] [address] Performed By: #### 5 7021-8 ####[facility] LABCLIA [id number] [place] [address] Eosinophils (Bld) [#/Vol] 10*3/uL Normal <0.46 [facility] Comment on above: Order Comment: Speci men Type: BLOOD SPECIMENOrdering Facility: [facility] Address: [address] [place] [address] Performed By: #### 5 7021-8 ####[facility] LABCLIA [id number] [place] [address] Eosinophils/100 WBC (Bld) 0.1 % Normal [facility] Comment on above: Order Comment: Speci men Type: BLOOD SPECIMENOrdering Facility: [facility] Address: [address] [place] [address] Performed By: #### 5 7021-8 ####[facility] LABCLIA [id number] [place] [address] Erythrocyte distribution width (RBC) [Ratio] 15.6 % High 11.5-15.0 [facility] Comment on above: Order Comment: Speci men Type: BLOOD SPECIMENOrdering Facility: [facility] Address: [address] [place] [address] Performed By: #### 5 7021-8 ####[facility] LABCLIA [id number] [place] [address] Hematocrit (Bld) [Volume fraction] 42.0 % Normal 36.0-46.0 [facility] Comment on above: Order Comment: Speci men Type: BLOOD SPECIMENOrdering Facility: [facility] Address: [address] [place] [address] Performed By: #### 5 7021-8 ####[facility] LABCLIA [id number] [place] [address] Hemoglobin (Bld) [Mass/Vol] 12.8 g/dL Normal 11.5-15.5 [facility] Comment on above: Order Comment: Speci men Type: BLOOD SPECIMENOrdering Facility: [facility] Address: [address] [place] [address] Performed By: #### 5 7021-8 ####[facility] LABCLIA [id number] [place] [address] Immature granulocytes (Bld) [#/Vol] 10*3/uL Normal <0.10 [facility] Comment on above: Order Comment: Speci men Type: BLOOD SPECIMENOrdering Facility: [facility] Address: [address] [place] [address] Performed By: #### 5 7021-8 ####[facility] LABCLIA [id number] [place] [address] Immature granulocytes/100 WBC (Bld) 0.1 % Normal [facility] Comment on above: Order Comment: Speci men Type: BLOOD SPECIMENOrdering Facility: [facility] Address: [address] [place] [address] Performed By: #### 5 7021-8 ####[facility] LABCLIA [id number] [place] [address] Lymphocytes (Bld) [#/Vol] 4.27 10*3/uL High 1.00-4.00 [facility] Comment on above: Order Comment: Speci men Type: BLOOD SPECIMENOrdering Facility: [facility] Address: [address] [place] [address] Performed By: #### 5 7021-8 ####[facility] LABCLIA [id number] [place] [address] Lymphocytes/100 WBC (Bld) 54.2 % Normal [facility] Comment on above: Order Comment: Speci men Type: BLOOD SPECIMENOrdering Facility: [facility] Address: [address] [place] [address] Performed By: #### 5 7021-8 ####[facility] LABCLIA [id number] [place] [address] MCH (RBC) [Entitic mass] 26.9 pg Normal 26.0-34.0 [facility] Comment on above: Order Comment: Speci men Type: BLOOD SPECIMENOrdering Facility: [facility] Address: [address] [place] [address] Performed By: #### 5 7021-8 ####[facility] LABCLIA [id number] [place] [address] MCHC (RBC) [Mass/Vol] 30.5 g/dL Normal 30.5-36.0 [facility] Comment on above: Order Comment: Speci men Type: BLOOD SPECIMENOrdering Facility: [facility] Address: [address] [place] [address] Performed By: #### 5 7021-8 ####[facility] LABCLIA [id number] [place] [address] MCV (RBC) [Entitic vol] 88.2 fL Normal 80.0-100.0 [facility] Comment on above: Order Comment: Speci men Type: BLOOD SPECIMENOrdering Facility: [facility] Address: [address] [place] [address] Performed By: #### 5 7021-8 ####[facility] LABCLIA [id number] [place] [address] Monocytes (Bld) [#/Vol] 0.96 10*3/uL High <0.87 [facility] Comment on above: Order Comment: Speci men Type: BLOOD SPECIMENOrdering Facility: [facility] Address: [address] [place] [address] Performed By: #### 5 7021-8 ####[facility] LABCLIA [id number] [place] [address] Monocytes/100 WBC (Bld) 12.2 % Normal C [facility] Comment on above: Order Comment: Speci men Type: BLOOD SPECIMENOrdering Facility: [facility] Address: [address] [place] [address] Performed By: #### 5 7021-8 ####[facility] LABCLIA [id number] [place] [address] Neutrophils (Bld) [#/Vol] 2.54 10*3/uL Normal 1.45-7.50 [facility] Comment on above: Order Comment: Speci men Type: BLOOD SPECIMENOrdering Facility: [facility] Address: [address] [place] [address] Performed By: #### 5 7021-8 ####[facility] LABCLIA [id number] [place] [address] Neutrophils/100 WBC (Bld) 32.3 % Normal [facility] Comment on above: Order Comment: Speci men Type: BLOOD SPECIMENOrdering Facility: [facility] Address: [address] [place] [address] Performed By: #### 5 7021-8 ####[facility] LABCLIA [id number] [place] [address] Nucleated RBC (Bld) [#/Vol] 10*3/uL Normal <0.01 [facility] Comment on above: Order Comment: Speci men Type: BLOOD SPECIMENOrdering Facility: [facility] Address: [address] [place] [address] Performed By: #### 5 7021-8 ####[facility] LABCLIA [id number] [place] [address] Nucleated RBC/100 WBC (Bld) [Ratio] 0.0 /100 WBC Normal [facility] Comment on above: Order Comment: Speci men Type: BLOOD SPECIMENOrdering Facility: [facility] Address: [address] [place] [address] Performed By: #### 5 7021-8 ####[facility] LABCLIA [id number] [place] [address] Platelet mean volume (Bld) [Entitic vol] 10.3 fL Normal 9.0-12.7 [facility] Comment on above: Order Comment: Speci men Type: BLOOD SPECIMENOrdering Facility: [facility] Address: [address] [place] [address] Performed By: #### 5 7021-8 ####[facility] LABCLIA [id number] [place] [address] Platelets (Bld) [#/Vol] 247 10*3/uL Normal 150-400 [facility] Comment on above: Order Comment: Speci men Type: BLOOD SPECIMENOrdering Facility: [facility] Address: [address] [place] [address] Performed By: #### 5 7021-8 ####[facility] LABCLIA [id number] [place] [address] RBC (Bld) [#/Vol] 4.76 10*6/uL Normal 3.90-5.20 [facility] Comment on above: Order Comment: Speci men Type: BLOOD SPECIMENOrdering Facility: [facility] Address: [address] [place] [address] Performed By: #### 5 7021-8 ####[facility] LABCLIA [id number] [place] [address] WBC (Bld) [#/Vol] 7.88 10*3/uL Normal 3.70-11.00 [facility] Comment on above: Order Comment: Speci men Type: BLOOD SPECIMENOrdering Facility: [facility] Address: [address] [place] [address] Performed By: #### 5 7021-8 ####[facility] LABCLIA [id number] [place] [address] Comprehensive metabolic 2000 panelon 07-05-2023 Albumin [Mass/Vol] 4.2 g/dL Normal 3.9-4.9 [facility] Comment on above: Order Comment: Speci men Type: BLOOD SPECIMENOrdering Facility: [facility] Address: [address] [place] [address] Performed By: #### 2 4323-8 ####[facility] LABCLIA [id number] [place] [address] ALP [Catalytic activity/Vol] 86 U/L Normal 34-123 [facility] Comment on above: Order Comment: Speci men Type: BLOOD SPECIMENOrdering Facility: [facility] Address: [address] [place] [address] Performed By: #### 2 4323-8 ####[facility] LABCLIA [id number] [place] [address] ALT [Catalytic activity/Vol] 30 U/L Normal 7-38 [facility] Comment on above: Order Comment: Speci men Type: BLOOD SPECIMENOrdering Facility: [facility] Address: [address] [place] [address] Performed By: #### 2 4323-8 ####[facility] LABCLIA [id number] [place] [address] Anion gap [Moles/Vol] 12 mmol/L Normal 9-18 [facility] Comment on above: Order Comment: Speci men Type: BLOOD SPECIMENOrdering Facility: [facility] Address: [address] [place] [address] Performed By: #### 2 4323-8 ####[facility] LABCLIA [id number] [place] [address] AST [Catalytic activity/Vol] 27 U/L Normal 13-35 [facility] Comment on above: Order Comment: Speci men Type: BLOOD SPECIMENOrdering Facility: [facility] Address: [address] [place] [address] Performed By: #### 2 4323-8 ####[facility] LABCLIA [id number] [place] [address] Bilirubin [Mass/Vol] 0.2 mg/dL Normal 0.2-1.3 [facility] Comment on above: Order Comment: Speci men Type: BLOOD SPECIMENOrdering Facility: [facility] Address: [address] [place] [address] Performed By: #### 2 4323-8 ####[facility] LABCLIA [id number] [place] [address] Calcium [Mass/Vol] 9.7 mg/dL Normal 8.5-10.2 [facility] Comment on above: Order Comment: Speci men Type: BLOOD SPECIMENOrdering Facility: [facility] Address: [address] [place] [address] Performed By: #### 2 4323-8 ####[facility] LABCLIA [id number] [place] [address] Chloride [Moles/Vol] 106 mmol/L High 97-105 [facility] Comment on above: Order Comment: Speci men Type: BLOOD SPECIMENOrdering Facility: [facility] Address: [address] [place] [address] Performed By: #### 2 4323-8 ####[facility] LABCLIA [id number] [place] [address] CO2 [Moles/Vol] 25 mmol/L Normal 22-30 [facility] Comment on above: Order Comment: Speci men Type: BLOOD SPECIMENOrdering Facility: [facility] Address: [address] [place] [address] Performed By: #### 2 4323-8 ####[facility] LABCLIA [id number] [place] [address] Creatinine [Mass/Vol] 0.96 mg/dL Normal 0.58-0.96 [facility] Comment on above: Order Comment: Rocio shaffer Type: BLOOD SPECIMENOrdering Facility: [facility] Address: [address] [place], [place] [id number] Performed By: #### 2 4323-8 ####[facility] LABCLIA [id number] [place] [address] Creatinine and Glomerular filtration rate.predicted panel (S/P/Bld) 65 mL/min/1.73m??? Normal >=60 [facility] Comment on above: Order Comment: Rocio shaffer Type: BLOOD SPECIMENOrdering Facility: [facility] Address: [address] [place] [address] Result Comment: Abigail mated Glomerular Filtration Rate [...] actual GFR. Performed By: #### 2 4323-8 ####[facility] LABCLIA [id number] [place] [address] Glucose [Mass/Vol] 103 mg/dL High 74-99 [facility] Comment on above: Order Comment: Rocio shaffer Type: BLOOD SPECIMENOrdering Facility: [facility] Address: [address] [place], [place] [id number] Result Comment: The [place] [employer] (ADA) provides guidance for cutoff [...] Standards of Medical Care in Diabetes 2016, [place] [employer]. Diabetes Care. 2016.39(Suppl 1). Performed By: #### 2 4323-8 ####[facility] LABCLIA [id number] [place] [address] Potassium [Moles/Vol] 4.5 mmol/L Normal 3.7-5.1 [facility] Comment on above: Order Comment: Speci men Type: BLOOD SPECIMENOrdering Facility: [facility] Address: [address] [place] [address] Performed By: #### 2 4323-8 ####[facility] LABCLIA [id number] [place] [address] Protein [Mass/Vol] 6.7 g/dL Normal 6.3-8.0 [facility] Comment on above: Order Comment: Speci men Type: BLOOD SPECIMENOrdering Facility: [facility] Address: [address] [place] [address] Performed By: #### 2 4323-8 ####[facility] LABCLIA [id number] [place] [address] Sodium [Moles/Vol] 143 mmol/L Normal 136-144 [facility] Comment on above: Order Comment: Speci men Type: BLOOD SPECIMENOrdering Facility: [facility] Address: [address] [place] [address] Performed By: #### 2 4323-8 ####[facility] LABCLIA [id number] [place] [address] Urea nitrogen [Mass/Vol] 12 mg/dL Normal 7-21 [facility] Comment on above: Order Comment: Speci men Type: BLOOD SPECIMENOrdering Facility: [facility] Address: [address] [place] [address] Performed By: #### 2 4323-8 ####[facility] LABCLIA [id number] [place] [address] Ferritin SerPl-mCncon 2023 Ferritin [Mass/Vol] 14.3 ng/mL Low 14.7-205.1 [facility] Comment on above: Order Comment: Speci men Type: BLOOD SPECIMENOrdering Facility: [facility] Address: [address] [place] [address] Performed By: #### 2 132-9, 2284-8, 32890-5, 6-4 ####[facility] LABCLIA [id number] [place] [address] [place] Folate [facility] 07-05-19 Folate [Mass/Vol] ng/mL Normal >4.7 [facility] Comment on above: Order Comment: Rocio shaffer Type: BLOOD SPECIMENOrdering Facility: [facility] Address: [address] [place] [address] Result Comment: A re sult of > 20 ng/mL is not necessarily indicative of a pathologic or treatable condition: it reflects a limitation of the test methodology. Assay reference range: 4.8 to 24.2 ng/mL. Suitable for detection of folate deficiency. Reference: Folate III (Folate III) [package insert V 1.0 [place]]. [facility], [place], [place]: March 2015. Performed By: #### 2 132-9, 2284-8, 16761-9, 6-4 ####[facility] LABCLIA [id number] [place] [address] [place] Iron and Iron binding capaci [facility] 07-05-2023 Iron [Mass/Vol] 100 ug/dL Normal 41-186 [facility] Comment on above: Order Comment: Speci men Type: BLOOD SPECIMENOrdering Facility: [facility] Address: [address] [place] [address] Performed By: #### 2 132-9, 2284-8, 78472-5, 6-4 ####[facility] LABCLIA [id number] [place] [address] [place] Iron binding capacity [Mass/Vol] 434 ug/dL High 232-386 [facility] Comment on above: Order Comment: Speci men Type: BLOOD SPECIMENOrdering Facility: [facility] Address: [address] [place] [address] Performed By: #### 2 132-9, 2284-8, 53705-9, 2276-4 ####[facility] LABCLIA [id number] [address] [place] Iron/TIBC [Molar ratio] 23.0 % Normal 15.0-57.0 C [facility] Comment on above: Order Comment: Speci men Type: BLOOD SPECIMENOrdering Facility: [facility] Address: [address] [place] [address] Performed By: #### 2 132-9, 2284-8, 50986-3, 2276-4 ####[facility] LABIA [id number] [address] [place] Vit B12 SerPl-ncon 07-05- 024 Cobalamin (Vitamin B12) [Mass/Vol] 309 pg/mL Normal 232-1245 [facility] Comment on above: Order Comment: Speci men Type: BLOOD SPECIMENOrdering Facility: [facility] Address: [address] [place] [address] Performed By: #### 2 132-9, 2284-8, 55779-8, 2276-4 ####[facility] LABIA [id number] [address] [place] CNOVon 06-24-2023 CNOV Office Visit (UROLAV ) JESSICA FERRERA ([id number]) 1955 F Date Time Provider Department 06/24/23 9:00 AM [facility] LOMBARDO UROLAV During your visit today, we recorded the following information about you: Monica Wallace Ma 06/24/2023 12:13 PM Signed PVR = 0 ml Via bladder scan. Dallas Lombardo MD 06/24/2023 12:13 PM Signed [facility] UROLOGY VISIT Follow Up [facility] [...] No allergy testing for antibiotics. QUESTIONNAIRE: Questionnaire: [place] Ambulatory Visit Intake Questionnaire Question Answer Have [...] Intermittent Intervention/Comfort measure Pain Comments [facility] Question Answer Is this visit related to an accident, other than Workers' Compensation? No Is this visit related to Workers' Compensation? No Do you need an manager wastewater? No Questionnaire: Val Promis 10 Adult Short [...] CYSTOURETHROSCOPY 06/20/15 Cystoscopy; Dr. Lombardo; Leanne REJ [facility] SUR[facility]ERY HX Left HYSTERECTOMY HX 1994 left overy and hysterectomy. ROTATOR CUFF REPAIR 2013,2014 Left x 2 SHOULDER SURGERY HX Right TONSILLECTOMY HX TONSILLECTOMY HX Social History Tobacco Use Smoking (more content not included)... Normal [facility] CBC W Auto Differential pane l (Bld)on 03-31-2023 Basophils (Bld) [#/Vol] 0.20 10*3/uL High <0.11 [facility] Comment on above: Order Comment: Speci men Type: BLOOD SPECIMENOrdering Facility: [facility] Address: [address] [place] [address] Performed By: #### 5 7021-8 ####[facility] LABCLIA [id number] [address] [address] LABCLIA [id number] [place] [address] [place] Basophils/100 WBC (Bld) 3.0 % Normal C [facility] Comment on above: Order Comment: Speci men Type: BLOOD SPECIMENOrdering Facility: [facility] Address: [address] [place] [address] Performed By: #### 5 7021-8 ####[facility] LABCLIA [id number] [address] LABCLIA [id number] [place] [address] [place] Differential cell count method Nom (Bld) Manual Normal [facility] Comment on above: Order Comment: Speci men Type: BLOOD SPECIMENOrdering Facility: [facility] Address: [address] [place] [address] Performed By: #### 5 7021-8 ####[facility] LABCLIA [id number] [address] LABCLIA [id number] [place] [address] [place] Eosinophils (Bld) [#/Vol] 0.40 10*3/uL Normal <0.46 [facility] Comment on above: Order Comment: Speci men Type: BLOOD SPECIMENOrdering Facility: [facility] Address: [address] [place] [address] Performed By: #### 5 7021-8 ####[facility] LABCLIA [id number] [place] [id number] LABCLIA [id number] [place] [address] [place] Eosinophils/100 WBC (Bld) 6.0 % Normal [facility] Comment on above: Order Comment: Speci men Type: BLOOD SPECIMENOrdering Facility: [facility] Address: [address] [place] [address] Performed By: #### 5 7021-8 ####[facility] LABCLIA [id number] [address] LABCLIA [id number] [place] [address] [place] Erythrocyte distribution width (RBC) [Ratio] 14.0 % Normal 11.5-15.0 [facility] Comment on above: Order Comment: Speci men Type: BLOOD SPECIMENOrdering Facility: [facility] Address: [address] [place] [address] Performed By: #### 5 7021-8 ####[facility] LABCLIA [id number] [place] [id number] LABCLIA [id number] [place] [address] [place] Hematocrit (Bld) [Volume fraction] 42.2 % Normal 36.0-46.0 [facility] Comment on above: Order Comment: Speci men Type: BLOOD SPECIMENOrdering Facility: [facility] Address: [address] [place] [address] Performed By: #### 5 7021-8 ####[facility] LABCLIA [id number] [address] LABCLIA [id number] [place] [address] [place] Hemoglobin (Bld) [Mass/Vol] 13.3 g/dL Normal 11.5-15.5 [facility] Comment on above: Order Comment: Speci men Type: BLOOD SPECIMENOrdering Facility: [facility] Address: [address] [place] [address] Performed By: #### 5 7021-8 ####[facility] LABCLIA [id number] [address] LABCLIA [id number] [place] [address] [place] Lymphocytes (Bld) [#/Vol] 3.56 10*3/uL Normal 1.00-4.00 [facility] Comment on above: Order Comment: Speci men Type: BLOOD SPECIMENOrdering Facility: [facility] Address: [address] [place] [address] Performed By: #### 5 7021-8 ####[facility] LABCLIA [id number] [address] LABCLIA [id number] [place] [address] [place] Lymphocytes/100 WBC (Bld) 54.0 % Normal [facility] Comment on above: Order Comment: Speci men Type: BLOOD SPECIMENOrdering Facility: [facility] Address: [address] [place] [address] Performed By: #### 5 7021-8 ####[facility] LABCLIA [id number] [address] LABCLIA [id number] [place] [address] [place] MCH (RBC) [Entitic mass] 27.4 pg Normal 26.0-34.0 [facility] Comment on above: Order Comment: Speci men Type: BLOOD SPECIMENOrdering Facility: [facility] Address: [address] [place] [address] Performed By: #### 5 7021-8 ####[facility] LABCLIA [id number] [address] LABCLIA [id number] [place] [address] [place] MCHC (RBC) [Mass/Vol] 31.5 g/dL Normal 30.5-36.0 [facility] Comment on above: Order Comment: Speci men Type: BLOOD SPECIMENOrdering Facility: [facility] Address: [address] [place] [address] Performed By: #### 5 7021-8 ####[facility] LABCLIA [id number] [address] LABCLIA [id number] [place] [address] [place] MCV (RBC) [Entitic vol] 86.8 fL Normal 80.0-100.0 C [facility] Comment on above: Order Comment: Speci men Type: BLOOD SPECIMENOrdering Facility: [facility] Address: [address] [place] [address] Performed By: #### 5 7021-8 ####[facility] LABCLIA [id number] [address] LABCLIA [id number] [place] [address] [place] Monocytes (Bld) [#/Vol] 0.66 10*3/uL Normal <0.87 [facility] Comment on above: Order Comment: Speci men Type: BLOOD SPECIMENOrdering Facility: [facility] Address: [address] [place] [address] Performed By: #### 5 7021-8 ####[facility] LABCLIA [id number] [address] LABCLIA [id number] [place] [address] [place] Monocytes/100 WBC (Bld) 10.0 % Normal [facility] Comment on above: Order Comment: Speci men Type: BLOOD SPECIMENOrdering Facility: [facility] Address: [address] [place] [address] Performed By: #### 5 7021-8 ####[facility] LABCLIA [id number] [address] LABCLIA [id number] [place] [address] [place] Neutrophils (Bld) [#/Vol] 1.78 10*3/uL Normal 1.45-7.50 [facility] Comment on above: Order Comment: Speci men Type: BLOOD SPECIMENOrdering Facility: [facility] Address: [address] [place] [address] Performed By: #### 5 7021-8 ####[facility] LABCLIA [id number] [address] LABCLIA [id number] [place] [address] [place] Neutrophils/100 WBC (Bld) 27.0 % Normal [facility] Comment on above: Order Comment: Speci men Type: BLOOD SPECIMENOrdering Facility: [facility] Address: [address] [place] [address] Performed By: #### 5 7021-8 ####[facility] LABCLIA [id number] [address] LABCLIA [id number] [place] [address] [place] Nucleated RBC (Bld) [#/Vol] 10*3/uL Normal <0.01 [facility] Comment on above: Order Comment: Speci men Type: BLOOD SPECIMENOrdering Facility: [facility] Address: [address] [place] [address] Performed By: #### 5 7021-8 ####[facility] LABCLIA [id number] [address] LABCLIA [id number] [place] [address] [place] Nucleated RBC/100 WBC (Bld) [Ratio] 0.0 /100 WBC Normal [facility] Comment on above: Order Comment: Speci men Type: BLOOD SPECIMENOrdering Facility: [facility] Address: [address] [place] [address] Performed By: #### 5 7021-8 ####[facility] LABCLIA [id number] [address] LABCLIA [id number] [place] [address] [place] Ovalocytes LM Ql (Bld) Few Normal [facility] Comment on above: Order Comment: Speci men Type: BLOOD SPECIMENOrdering Facility: [facility] Address: [address] [place] [address] Performed By: #### 5 7021-8 ####[facility] LABCLIA [id number] [address] LABCLIA [id number] [place] [address] [place] Platelet mean volume (Bld) [Entitic vol] 10.5 fL Normal 9.0-12.7 [facility] Comment on above: Order Comment: Speci men Type: BLOOD SPECIMENOrdering Facility: [facility] Address: [address] [place] [address] Performed By: #### 5 7021-8 ####[facility] LABCLIA [id number] [address] LABCLIA [id number] [place] [address] [place] Platelets (Bld) [#/Vol] 265 10*3/uL Normal 150-400 [facility] Comment on above: Order Comment: Speci men Type: BLOOD SPECIMENOrdering Facility: [facility] Address: [address] [place] [address] Performed By: #### 5 7021-8 ####[facility] LABCLIA [id number] [address] LABCLIA [id number] [place] [address] [place] Platelets Estimate (Bld) [#/Vol] Adequate Normal [facility] Comment on above: Order Comment: Speci men Type: BLOOD SPECIMENOrdering Facility: [facility] Address: [address] [place] [address] Performed By: #### 5 7021-8 ####[facility] LABCLIA [id number] [address] LABCLIA [id number] [place] [address] [place] RBC (Bld) [#/Vol] 4.86 10*6/uL Normal 3.90-5.20 [facility] Comment on above: Order Comment: Speci men Type: BLOOD SPECIMENOrdering Facility: [facility] Address: [address] [place] [address] Performed By: #### 5 7021-8 ####[facility] LABCLIA [id number] [address] LABCLIA [id number] [place] [address] [place] RED CELL MORPH Reviewed: see result s of individual morphologies Normal [facility] Comment on above: Order Comment: Speci men Type: BLOOD SPECIMENOrdering Facility: WAYNE [facility] Address: [address] [place] [address] Performed By: #### 5 7021-8 ####[facility] LABCLIA [id number] [place] [id number] LABCLIA [id number] [address] [address] [place] WBC (Bld) [#/Vol] 6.59 10*3/uL Normal 3.70-11.00 [facility] Comment on above: Order Comment: Speci men Type: BLOOD SPECIMENOrdering Facility: [facility] Address: [address] [place] [address] Performed By: #### 5 7021-8 ####[facility] [place] LABCLIA [id number] [place], [place] [id number] [facility] LABCLIA [id number] [place] [id number] [place] MK CT CHEST W IVCONon 3 CT CHEST W IVCON * * *Final Report* * * DATE OF EXAM: Mar 31 2023 9:25AM [facility] 0539 - CT CHEST W IVCON [...] any questions regarding this interpretation, please call [phone]. If you are unable to reach us at the number above, please feel free to contact [facility] eRadiology at [phone]. [id number] Normal [facility] Comprehensive metabolic 2000 panelon 03-31-2023 Albumin [Mass/Vol] 4.5 g/dL Normal 3.9-4.9 [facility] Comment on above: Order Comment: Speci men Type: BLOOD SPECIMENOrdering Facility: [facility] Address: [address] [place] [address] Performed By: #### 2 4323-8 ####[facility] LABCLIA [id number] [place] [address] ALP [Catalytic activity/Vol] 85 U/L Normal 34-123 [facility] Comment on above: Order Comment: Speci men Type: BLOOD SPECIMENOrdering Facility: [facility] Address: [address] [place] [address] Performed By: #### 2 4323-8 ####[facility] LABCLIA [id number] [place] [address] ALT [Catalytic activity/Vol] 20 U/L Normal 7-38 [facility] Comment on above: Order Comment: Speci men Type: BLOOD SPECIMENOrdering Facility: [facility] Address: [address] [place] [address] Performed By: #### 2 4323-8 ####[facility] LABCLIA [id number] [place] [address] Anion gap [Moles/Vol] 9 mmol/L Normal 9-18 [facility] Comment on above: Order Comment: Speci men Type: BLOOD SPECIMENOrdering Facility: [facility] Address: [address] [place] [address] Performed By: #### 2 4323-8 ####[facility] LABCLIA [id number] [place] [address] AST [Catalytic activity/Vol] 22 U/L Normal 13-35 [facility] Comment on above: Order Comment: Speci men Type: BLOOD SPECIMENOrdering Facility: [facility] Address: [address] [place] [address] Performed By: #### 2 4323-8 ####[facility] LABCLIA [id number] [place] [address] Bilirubin [Mass/Vol] 0.3 mg/dL Normal 0.2-1.3 [facility] Comment on above: Order Comment: Speci men Type: BLOOD SPECIMENOrdering Facility: [facility] Address: [address] [place] [address] Performed By: #### 2 4323-8 ####[facility] LABCLIA [id number] [place] [address] Calcium [Mass/Vol] 9.6 mg/dL Normal 8.5-10.2 [facility] Comment on above: Order Comment: Speci men Type: BLOOD SPECIMENOrdering Facility: [facility] Address: [address] [place] [address] Performed By: #### 2 4323-8 ####[facility] LABCLIA [id number] [place] [address] Chloride [Moles/Vol] 105 mmol/L Normal 97-105 [facility] Comment on above: Order Comment: Speci men Type: BLOOD SPECIMENOrdering Facility: [facility] Address: [address] [place] [address] Performed By: #### 2 4323-8 ####[facility] LABCLIA [id number] [place] [address] CO2 [Moles/Vol] 28 mmol/L Normal 22-30 [facility] Comment on above: Order Comment: Speci men Type: BLOOD SPECIMENOrdering Facility: [facility] Address: [address] [place] [address] Performed By: #### 2 4323-8 ####[facility] LABCLIA [id number] [place] [address] Creatinine [Mass/Vol] 0.98 mg/dL High 0.58-0.96 [facility] Comment on above: Order Comment: Speci men Type: BLOOD SPECIMENOrdering Facility: [facility] Address: [address] [place] [address] Performed By: #### 2 4323-8 ####[facility] LABCLIA [id number] [place] [address] Creatinine and Glomerular filtration rate.predicted panel (S/P/Bld) 64 mL/min/1.73m??? Normal >=60 [facility] Comment on above: Order Comment: Speci men Type: BLOOD SPECIMENOrdering Facility: [facility] Address: [address] [place] [address] Result Comment: Abigail mated Glomerular Filtration Rate [...] actual GFR. Performed By: #### 2 4323-8 ####[facility] LABCLIA [id number] [place] [address] Glucose [Mass/Vol] 102 mg/dL High 74-99 [facility] Comment on above: Order Comment: Speci men Type: BLOOD SPECIMENOrdering Facility: [facility] Address: [address] [place] [address] Result Comment: The [place] Diabetes [employer] (ADA) provides guidance for cutoff [...] Standards of Medical Care in Diabetes 2016, [place] [employer]. Diabetes Care. 2016.39(Suppl 1). Performed By: #### 2 4323-8 ####[facility] LABCLIA [id number] [place] [address] Potassium [Moles/Vol] 4.2 mmol/L Normal 3.7-5.1 [facility] Comment on above: Order Comment: Speci men Type: BLOOD SPECIMENOrdering Facility: [facility] Address: [address] [place] [address] Performed By: #### 2 4323-8 ####[facility] LABCLIA [id number] [place] [address] Protein [Mass/Vol] 7.0 g/dL Normal 6.3-8.0 [facility] Comment on above: Order Comment: Speci men Type: BLOOD SPECIMENOrdering Facility: [facility] Address: [address] [place] [address] Performed By: #### 2 4323-8 ####[facility] LABCLIA [id number] [place] [address] Sodium [Moles/Vol] 142 mmol/L Normal 136-144 [facility] Comment on above: Order Comment: Speci men Type: BLOOD SPECIMENOrdering Facility: [facility] Address: [address] [place] [address] Performed By: #### 2 4323-8 ####[facility] LABCLIA [id number] [place] [address] Urea nitrogen [Mass/Vol] 9 mg/dL Normal 7-21 [facility] Comment on above: Order Comment: Speci men Type: BLOOD SPECIMENOrdering Facility: [facility] Address: [address] [place] [address] Performed By: #### 2 4323-8 ####[facility] LABCLIA [id number] [place] [address] Ferritin SerPl-mCncon 2022 Ferritin [Mass/Vol] 11.8 ng/mL Low 14.7-205.1 [facility] Comment on above: Order Comment: Speci men Type: BLOOD SPECIMENOrdering Facility: [facility] Address: [address] [place] [address] Performed By: #### 5 0190-8, 2284-8, 9, 2275-4 ####[facility] LABCLIA [id number] [place] [address] [place] Folate SerPl-mCncon 03-31-20 23 Folate [Mass/Vol] Normal [facility] Comment on above: Order Comment: Speci men Type: BLOOD SPECIMENOrdering Facility: [facility] Address: [address] [place] [address] Result Comment: Unab le to assay due to interference from hemolysis. Suggest reorder as clinically indicated. Performed By: #### 5 0190-8, 2284-8, 9, 2275-4 ####[facility] LABCLIA [id number] [place] [address] [place] Iron and Iron binding capaci ty panelon 03-31-2023 Iron [Mass/Vol] 63 ug/dL Normal 41-186 [facility] Comment on above: Order Comment: Speci men Type: BLOOD SPECIMENOrdering Facility: [facility] Address: [address] [place] [address] Performed By: #### 5 0190-8, 2283-8, 2132-01, 2275-08 ####[facility] LABCLIA [id number] [place] [address] [place] Iron binding capacity [Mass/Vol] Normal [facility] Comment on above: Order Comment: Speci men Type: BLOOD SPECIMENOrdering Facility: [facility] Address: [address] [place] [address] Result Comment: Unab le to calculate due to hemolysis. Performed By: #### 5 0190-8, 8, 2132-01, 2275-08 ####[facility] LABIA [id number] [place] [address] [place] Iron/TIBC [Molar ratio] Normal [facility] Comment on above: Order Comment: Speci men Type: BLOOD SPECIMENOrdering Facility: [facility] Address: [address] [place] [address] Result Comment: Unab le to calculate due to hemolysis. Performed By: #### 5 0190-8, 2283-8, 2132-01, 2275-08 ####[facility] LABCLIA [id number] [place] [id number] [place] Vit B12 [facility] 11-01-2 023 Cobalamin (Vitamin B12) [Mass/Vol] 327 pg/mL Normal 232-1245 [facility] Comment on above: Order Comment: Speci men Type: BLOOD SPECIMENOrdering Facility: [facility] Address: [address] [place] [address] Performed By: #### 5 0190-8, 8, 2132-01, 2275-08 ####[facility] LABCLIA [id number] [place] [address] [place] MM screening mammo BI w/CADo n 02-22-2023 MM screening mammo BI w/CAD [facility] Main [place] [address] [place], [place] [address] Mammography Report Signed Patient: Jessica Ferrera MR#: [id number] 7 : 1955 Acct:[id number] Age/Sex: 67 / F ADM Date: 02/22/23 Loc: [place] Room: [facility] Attending Dr: Referral Self Copies to: [...] Juvenal Hanley M.D.02/22/2023 10:30 AM Dictation Location: [facility] Transcribed By: [facility] 02/22/23 1030 Dictated By: Juvenal Hanley DO 02/22/23 1029 Signed By: 02/22/23 1030 Normal [facility] Basic Metabolic Profon 01-12 Anion gap [Moles/Vol] 10 mmol/L Normal 9-17 [facility] Comment on above: Performed By: #### C , [place] ####[facility] Rrj[address]54 [place] [address] Lab Director: Jelani Liu MD BUN/CRE Ratio 14 Normal 9-20 [facility] Comment on above: Performed By: #### C DP, BMP ####[facility] Xhu[address] [place] [address] Lab Director: Jelani Liu MD Calcium [Mass/Vol] 8.5 mg/dL Low 8.6-10.4 [facility] Comment on above: Performed By: #### C DP, BMP ####[facility] Pfi[address] [facility] [facility], [place] [phone] Director: Jelani Liu MD Chloride [Moles/Vol] 108 mmol/L High 98-107 [facility] Comment on above: Performed By: #### C DP, BMP ####[facility] Xgx58[address] [place] [address] Lab Director: Jelani Liu MD CO2 [Moles/Vol] 23 mmol/L Normal 20-31 [facility] Comment on above: Performed By: #### C DP, BMP ####[facility] [address] [place] [address].[place] [address] Lab Director: Jelani Liu MD Creatinine [Mass/Vol] 0.8 mg/dL Normal 0.5-0.9 [facility] Comment on above: Performed By: #### C DP, BMP ####[facility] Awn[address] [place] [address] Lab Director: Jelain Liu MD GFR/1.73 sq M.predicted among non-blacks MDRD (S/P/Bld) [Vol rate/Area] mL/min/{1.73_m2} Normal >60 [facility] Comment on above: Result [...] secretion. Performed By: #### C DP, BMP ####[facility] Qcw101[address] [facility] [facility], [place] [phone] Director: Jelani Liu MD Glucose [Mass/Vol] 156 mg/dL High 70-99 [facility] Comment on above: Performed By: #### C DP, BMP ####[facility] [address] [place] [address].[place] [phone] Director: Jelani Liu MD Potassium [Moles/Vol] 4.5 mmol/L Normal 3.7-5.3 [facility] Comment on above: Performed By: #### C DP, BMP ####[facility] Wzj[address] [facility], [place] [phone] Director: Jelani Liu MD Sodium [Moles/Vol] 141 mmol/L Normal 135-144 [facility] Comment on above: Performed By: #### C DP, BMP ####[facility] [address] [place] [address].[place], [place] [phone] Director: Jelani Liu MD Urea nitrogen [Mass/Vol] 11 mg/dL Normal 8-23 [facility] Comment on above: Performed By: #### C DP, BMP ####[facility] Wst[address] [place] [phone] Director: Jelani Liu MD CBC with Diffon 01-12-2023 Abs. Basophil <0.03 Normal 0.00-0.20 [facility] Comment on above: Performed By: #### C DP, BMP ####[facility] [address] [place] [address].[place] [address] Lab Director: Jelani Liu MD Abs. Eosinophil <0.03 Normal 0.00-0.44 [facility] Comment on above: Performed By: #### C DP, BMP ####[facility] [address] [place] [address].[place] [address] Lab Director: Jelani Liu MD Abs.Imm.Granulocyte 0.05 k/uL Normal 0.00-0.30 [facility] Comment on above: Performed By: #### C DP, BMP ####[facility] [address] [place] [address].[place] [address] Lab Director: Jelani Liu MD Abs.Neutrophil (Seg) 10.35 k/uL High 1.50-8.10 [facility] Comment on above: Performed By: #### C DP, BMP ####[facility] [address] [place] [address].[place] [address] Lab Director: Jelani Liu MD Basophils/100 WBC (Bld) 0 % Normal 0-2 [facility] Comment on above: Performed By: #### C DP, BMP ####[facility] [address] [place] [address].[place] [address] Lab Director: Jelani Liu MD Eosinophils/100 WBC (Bld) 0 % Low 1-4 [facility] Comment on above: Performed By: #### C DP, BMP ####[facility] Z[address] [place] [address].[place] [address] Lab Director: Jelani Liu MD Erythrocyte distribution width (RBC) [Ratio] 12.9 % Normal 11.8-14.4 [facility] Comment on above: Performed By: #### C DP, BMP ####[facility] [address] [place] [address].[place], [place] [phone] Director: Jelani Liu MD Hematocrit (Bld) [Volume fraction] 37.4 % Normal 36.3-47.1 [facility] Comment on above: Performed By: #### C DP, BMP ####[facility] [address] [place] [address] Lab Director: Jelani Liu MD Hemoglobin (Bld) [Mass/Vol] 11.8 g/dL Low 11.9-15.1 [facility] Comment on above: Performed By: #### C DP, BMP ####[facility] [address] [place] [address] Lab Director: Jelani Liu MD Immature granulocytes/100 WBC (Bld) 0 % Normal 0 [facility] Comment on above: Performed By: #### C DP, BMP ####[facility] [address] [place], [place] [phone] Director: Jelani Liu MD Lymphocytes (Bld) [#/Vol] 1.70 10*3/uL Normal 1.10-3.70 [facility] Comment on above: Performed By: #### C DP, BMP ####[facility] [address] [place] [address] Lab Director: Jelani Liu MD Lymphocytes/100 WBC (Bld) 13 % Low 24-43 [facility] Comment on above: Performed By: #### C DP, BMP ####[facility] [address] [place] [address] Lab Director: Jelani Liu MD MCH (RBC) [Entitic mass] 29.7 pg Normal 25.2-33.5 [facility] Comment on above: Performed By: #### C DP, BMP ####[facility] Sik[address] [place] [address] Lab Director: Jelani Liu MD MCHC (RBC) [Mass/Vol] 31.6 g/dL Normal 28.4-34.8 [facility] Comment on above: Performed By: #### C DP, BMP ####[facility] [address] [place] [address] Lab Director: Jelani Liu MD MCV (RBC) [Entitic vol] 94.2 fL Normal 82.6-102.9 [facility] Comment on above: Performed By: #### C DP, BMP ####[facility] [address] [place] [address] Lab Director: Jelani Liu MD Monocytes (Bld) [#/Vol] 0.61 10*3/uL Normal 0.10-1.20 [facility] Comment on above: Performed By: #### C DP, BMP ####[facility] [address] [place] [address].[place] [address] Lab Director: Jelani Liu MD Monocytes/100 WBC (Bld) 5 % Normal 3-12 [facility] Comment on above: Performed By: #### C DP, BMP ####[facility] [address] [place] [address] Lab Director: Jelani Liu MD Neutrophil (Seg) 82 % High 36-65 [facility] Comment on above: Performed By: #### C DP, BMP ####[facility] [address] [place] [address] Lab Director: Jelani Liu MD NRBC Automated 0.0 per 100 WBC Normal 0.0 [facility] Comment on above: Performed By: #### C DP, BMP ####[facility] [address] [place], [place] [address] [place] [address] Lab Director: Jelani Liu MD Platelet mean volume (Bld) [Entitic vol] 10.1 fL Normal 8.1-13.5 [facility] Comment on above: Performed By: #### C DP, BMP ####[facility] Z[address] [place] [address].[place], [place] [phone] Director: Jelani Liu MD Platelets (Bld) [#/Vol] 221 10*3/uL Normal 138-453 [facility] Comment on above: Performed By: #### C DP, BMP ####[facility] [address] [place] [address].[place], [place] [phone] Director: Jelani Liu MD RBC (Bld) [#/Vol] 3.97 10*6/uL Normal 3.95-5.11 [facility] Comment on above: Performed By: #### C DP, BMP ####[facility] [address] [place] [address].[place], [place] [phone] Director: Jelani Liu MD WBC (Bld) [#/Vol] 12.7 10*3/uL High 3.5-11.3 [facility] Comment on above: Performed By: #### C DP, BMP ####[facility] [address] [place] [address].[place], [place] [phone] Director: Jelani Liu MD FLUORO FOR SURGICAL PROCEDUR ESon 01-11-2023 FLUORO FOR SURGICAL PROCEDURES Radiology exam is complete. No Radiologist dictation. Please follow up with ordering provider. Final result Normal [facility] Cult,Urineon 12-24-2022 Cult,Urine Specimen Description .CLEAN CATCH URINE Culture ESCHERICHIA COLI >100,000 CFU/ML This organism is an Extended Spectrum Beta Lactamase (ESBL) Records Supervisor and resistance to therapy with Penicillins, Cephalosporins [...] Amikacin <=2 SUSCEPTIBLE Meropenem <=0.25 SUSCEPTIBLE Susceptible [facility] Comment on above: Performed By: #### U RC ####[facility] Nhw9841 [place] [address] lab Director: Jelani Liu [address] [address] Lab Director: Terrance Luevano MD MRSA, DNA, Nasalon MRSA, DNA, Nasal Negative Normal NEG [facility] Comment on above: Result Comment: NEGA TIVE: MRSA DNA not detected by nucleic acid amplification. Results should be used as an adjunct to nosocomial control efforts to identify patients needing enhanced precautions. The test is not intended to identify patients with staphylococcal infections. Results should not be used to guide or monitor treatment for MRSA infections. Performed By: #### M RSANO ####[facility] Kga8603 [place] [address] lab Director: Jelani Liu [address] [address] lab Director: Terrance Luevano MD APTTon 12-21-2022 aPTT Coag (Bld) [Time] 27.5 s Normal 23.9-33.8 [facility] Comment on above: Result Comment: IV Heparin Therapy Range: 62.0-94.0 Performed By: #### B MP, PT, PTT, CDP #### [facility] [address] [place] [address] Naturopathic Doctor: Jelani Liu MD Basic Metabolic Profon 12-21 Anion gap [Moles/Vol] 11 mmol/L Normal 9-17 [facility] Comment on above: Performed By: #### B MP, PT, PTT, CDP #### [facility] [address] [place] [address] Naturopathic Doctor: Jelani Liu MD BUN/CRE Ratio 12 Normal 9-20 [facility] Comment on above: Performed By: #### B MP, PT, PTT, CDP #### [facility] [address] [place] [address] Naturopathic Doctor: Jelani Liu MD Calcium [Mass/Vol] 9.1 mg/dL Normal 8.6-10.4 [facility] Comment on above: Performed By: #### B MP, PT, PTT, CDP #### [facility] [address] [place] [address] Naturopathic Doctor: Jelani Liu MD Chloride [Moles/Vol] 104 mmol/L Normal 98-107 [facility] Comment on above: Performed By: #### B MP, PT, PTT, CDP #### [facility] [address] [place] [address] Naturopathic Doctor: Jelani Liu MD CO2 [Moles/Vol] 24 mmol/L Normal 20-31 [facility] Comment on above: Performed By: #### B MP, PT, PTT, CDP #### [facility] [address] [place] [address] Naturopathic Doctor: Jelani Liu MD Creatinine [Mass/Vol] 0.9 mg/dL Normal 0.5-0.9 [facility] Comment on above: Performed By: #### B MP, PT, PTT, CDP #### [facility] [place], [place] [phone] Naturopathic Doctor: Jelani Liu MD GFR/1.73 sq M.predicted among non-blacks MDRD (S/P/Bld) [Vol rate/Area] mL/min/{1.73_m2} Normal >60 [facility] Comment on above: Result [...] #### B MP, PT, PTT, CDP #### [facility] [address] [place] [address]. [place] [address] Naturopathic Doctor: Jelani Liu MD Glucose [Mass/Vol] 93 mg/dL Normal 70-99 [facility] Comment on above: Performed By: #### B MP, PT, PTT, CDP #### [facility] [address] [place] [address]. [place] [address] Naturopathic Doctor: Jelani Liu MD Potassium [Moles/Vol] 4.1 mmol/L Normal 3.7-5.3 [facility] Comment on above: Performed By: #### B MP, PT, PTT, CDP #### [facility] [address] [place] [address]. [place] [address] Naturopathic Doctor: Jelani Liu MD Sodium [Moles/Vol] 139 mmol/L Normal 135-144 [facility] Comment on above: Performed By: #### B MP, PT, PTT, CDP #### [facility] [address] [place] [address] Naturopathic Doctor: Jelani Liu MD Urea nitrogen [Mass/Vol] 11 mg/dL Normal 8-23 [facility] Comment on above: Performed By: #### B MP, PT, PTT, CDP #### [facility] [place] [address] Naturopathic Doctor: Jelani Liu MD CBC with Diffon 12-21-2022 Abs. Basophil 0.09 k/uL Normal 0.00-0.20 [facility] Comment on above: Performed By: #### B MP, PT, PTT, CDP #### [facility] [address] [place] [address] Naturopathic Doctor: Jelani Liu MD Abs. Eosinophil <0.03 Normal 0.00-0.44 [facility] Comment on above: Performed By: #### B MP, PT, PTT, CDP #### [facility] [address] [place] [address] Naturopathic Doctor: Jelani Liu MD Abs.Imm.Granulocyte 0.02 k/uL Normal 0.00-0.30 [facility] Comment on above: Performed By: #### B MP, PT, PTT, CDP #### [facility] [address] [place] [address] Naturopathic Doctor: Jelani Liu MD Abs.Neutrophil (Seg) 3.03 k/uL Normal 1.50-8.10 [facility] Comment on above: Performed By: #### B MP, PT, PTT, CDP #### [facility] [address] [place] [address]. [place] [address] Naturopathic Doctor: Jelani Liu MD Basophils/100 WBC (Bld) 1 % Normal 0-2 [facility] Comment on above: Performed By: #### B MP, PT, PTT, CDP #### [facility] [address] [place] [address] Naturopathic Doctor: Jelani Liu MD Eosinophils/100 WBC (Bld) 0 % Low 1-4 [facility] Comment on above: Performed By: #### B MP, PT, PTT, CDP #### [facility] [address] [place], [place] [address] [place] [address] Naturopathic Doctor: Jelani Liu MD Erythrocyte distribution width (RBC) [Ratio] 13.1 % Normal 11.8-14.4 [facility] Comment on above: Performed By: #### B MP, PT, PTT, CDP #### [facility] [address] [place], [place] [address]abraham [place] [address] Naturopathic Doctor: Jelani Liu MD Hematocrit (Bld) [Volume fraction] 45.2 % Normal 36.3-47.1 [facility] Comment on above: Performed By: #### B MP, PT, PTT, CDP #### [facility] [address] [place], [place] [address] [address] Naturopathic Doctor: Jelani Liu MD Hemoglobin (Bld) [Mass/Vol] 14.5 g/dL Normal 11.9-15.1 [facility] Comment on above: Performed By: #### B MP, PT, PTT, CDP #### [facility] [address] [place], [place] [address]van[facility] [place] [address] Naturopathic Doctor: Jelani Liu MD Immature granulocytes/100 WBC (Bld) 0 % Normal 0 [facility] Comment on above: Performed By: #### B MP, PT, PTT, CDP #### [facility] [address] [place], [place] [address] [place] [address] Naturopathic Doctor: Jelani Liu MD Lymphocytes (Bld) [#/Vol] 3.93 10*3/uL High 1.10-3.70 [facility] Comment on above: Performed By: #### B MP, PT, PTT, CDP #### [facility] [address] [place] [address]. [place] [address] Naturopathic Doctor: Jelani Liu MD Lymphocytes/100 WBC (Bld) 50 % High 24-43 [facility] Comment on above: Performed By: #### B MP, PT, PTT, CDP #### [facility] [address] [place] [address] Naturopathic Doctor: Jelani Liu MD MCH (RBC) [Entitic mass] 30.1 pg Normal 25.2-33.5 [facility] Comment on above: Performed By: #### B MP, PT, PTT, CDP #### [facility] [address] [place] [address] Naturopathic Doctor: Jelani Liu MD MCHC (RBC) [Mass/Vol] 32.1 g/dL Normal 28.4-34.8 [facility] Comment on above: Performed By: #### B MP, PT, PTT, CDP #### [facility] [address] [place] [address] Naturopathic Doctor: Jelani Liu MD MCV (RBC) [Entitic vol] 93.8 fL Normal 82.6-102.9 [facility] Comment on above: Performed By: #### B MP, PT, PTT, CDP #### [facility] [address] [place] [address] Naturopathic Doctor: Jelani Liu MD Monocytes (Bld) [#/Vol] 0.75 10*3/uL Normal 0.10-1.20 [facility] Comment on above: Performed By: #### B MP, PT, PTT, CDP #### [facility] [address] [place] [address] Naturopathic Doctor: Jelani Liu MD Monocytes/100 WBC (Bld) 10 % Normal 3-12 [facility] Comment on above: Performed By: #### B MP, PT, PTT, CDP #### [facility] [address] [place] [address]. [place] [address] Naturopathic Doctor: Jelani Liu MD Neutrophil (Seg) 39 % Normal 36-65 [facility] Comment on above: Performed By: #### B MP, PT, PTT, CDP #### [facility] [address] [place] [address]. [place] [address] Naturopathic Doctor: Jelani Liu MD NRBC Automated 0.0 per 100 WBC Normal 0.0 [facility] Comment on above: Performed By: #### B MP, PT, PTT, CDP #### [facility] [address] [place] [address]. [place] [address] Naturopathic Doctor: Jelani Liu MD Platelet mean volume (Bld) [Entitic vol] 10.0 fL Normal 8.1-13.5 [facility] Comment on above: Performed By: #### B MP, PT, PTT, CDP #### [facility] [address] [place] [address]. [place] [address] Naturopathic Doctor: Jelani Liu MD Platelets (Bld) [#/Vol] 257 10*3/uL Normal 138-453 [facility] Comment on above: Performed By: #### B MP, PT, PTT, CDP #### [facility] [address] [place] [address]. [place] [address] Naturopathic Doctor: Jelani Liu MD RBC (Bld) [#/Vol] 4.82 10*6/uL Normal 3.95-5.11 [facility] Comment on above: Performed By: #### B MP, PT, PTT, CDP #### [facility] [address] [facility] [address] Naturopathic Doctor: Jelani Liu MD WBC (Bld) [#/Vol] 7.8 10*3/uL Normal 3.5-11.3 [facility] Comment on above: Performed By: #### B MP, PT, PTT, CDP #### [facility] [address] [place] [address] Naturopathic Doctor: Jelani Liu MD MRSA, DNA, Nasalon 3 Specimen Description .NASAL SWAB Normal [facility] Comment on above: Performed By: #### M RSANO ####[facility] [address] [place] [address] Lab Director: JOAQUÍN [address] [address] Lab Director: Terrance Luevano MD PTon 12-21-2022 INR Coag (PPP) [Relative time] 0.9 {INR} Normal [facility] Comment on above: Result Comment: Therapeutic Range: Moderate Anticoagulant Intensity: INR = 2.0-3.0 High Anticoagulant Intensity: INR = 2.5-3.5 Performed By: #### B MP, PT, PTT, CDP #### [facility] [place] [address] Naturopathic Doctor: Jelani Liu MD PT Coag (PPP) [Time] 12.1 s Normal 11.5-14.2 [facility] Comment on above: Performed By: #### B MP, PT, PTT, CDP #### [facility] [address] [place] [address] Naturopathic Doctor: Jelani Liu MD Urinalysis, Routineon 2022 Bilirubin, SemiQt,Ur Negative Normal NEG [facility] Comment on above: Performed By: #### U A ####[facility] [address] [place] [address] Lab Director: Jelani Liu MD Blood, Urine Negative Normal NEG [facility] Comment on above: Performed By: #### U A ####[facility] [address] [place] [address] Lab Director: Jelani Liu MD Clarity (U) Clear Normal CLEAR [facility] Comment on above: Performed By: #### U A ####[facility] [address] [place] [address] Lab Director: Jelani Liu MD Color (U) Yellow Normal YEL [facility] Comment on above: Performed By: #### U A ####[facility] [id number] [facility] [place] [address] Lab Director: Jelani Liu MD Comment Microscopic exam not performed based on chemical results unless requested in Normal [facility] Comment on above: Result Comment: orig inal order. Performed By: #### U A ####[facility] [address] [facility] [place] [address] Lab Director: Jelani Liu MD Glucose Ql (U) Negative Normal NEG [facility] Comment on above: Performed By: #### U A ####[facility] [address] [place] [address] Lab Director: Jelani Liu MD Ketones Ql (U) Negative Normal NEG [facility] Comment on above: Performed By: #### U A ####[facility] [address] [place] [address] Lab Director: Jelani Liu MD Leukocyte esterase Test strip Ql (U) Negative Normal NEG [facility] Comment on above: Performed By: #### U A ####[facility] [address] [place] [address] Lab Director: Jelani Liu MD Nitrite,Ur Negative Normal NEG [facility] Comment on above: Performed By: #### U A ####[facility] [address] [place], [place] [phone] Director: Jelani Liu MD PH,Ur 5.5 Normal 5.0-8.0 [facility] Comment on above: Performed By: #### U A ####[facility] [address] [place] [address] [phone] Director: Jelani Liu MD Protein Ql (U) Negative Normal NEG [facility] Comment on above: Performed By: #### U A ####[facility] [address] [place] [address] Lab Director: Jelani Liu MD Spec. [place],Ur 1.015 Normal 1.005-1.030 [facility] Comment on above: Performed By: #### U A ####[facility] [address] [place] [address] Lab Director: Jelani Liu MD Urobilinogen,Ur Normal Normal 0.0-1.0 [facility] Comment on above: Performed By: #### U A ####[facility] [address] [place] [address] Lab Director: Jelani Liu MD Consent for Treatmenton 09-28 Consent for Treatment [id number] .00CD:127 Normal [facility] Discharge Instructionson Discharge Instructions [id number] 1.00CD:127 Normal [facility] ED Clinical Summaryon 2022 ED Clinical Summary [place] [id number] ED Clinical Summary Person Information Name: JESSICA FERRERA [place] Age: 67 Years : 1955 Sex: Female Language: [place] PCP: Ricardo Hooper MD Marital Status: Visit [...] 10/10/2022 16:00:24 10/10/2022 16:00:24 10/10/2022 16:00:24 ADDRESS: [address] [place] [address] [address] [id number] PHYS DOC NOTES: MEDICAL INFORMATION: Prescriptions Given: [...] Follow up: With: Address: When: Ricardo Hooper [facility] [facility], [place] [address] Bee Resilient (1) In 3 days 10/13/2022 Comments: Follow-up with your primary care provider in 3 to 5 days. If symptoms worsen, do not improve, or new symptoms arise please report back to emergency department for further evaluation. DIAGNOSIS: Left serous otitis media Normal [facility] ED Note-Physicianon 10-11-19 ED Note-Physician Basic Information Time Seen: Bo SAWANT, Thony Grijalva. 10/10/2022 15:28 Chief Complaint Pt had sinus infection beginning of September was placed on abx and felt better. Abx done on Wednesday, Wednesday started wtih L ear pain. Told to take antihistamines OTC. Saw [facility] and told possible shingles on top of the antihistamines. States still having L History of Present Illness 67-year-old fe with a chief complaint of male reports to the emergency department left ear pain. He reports that she just finished up antibiotic, but on Wednesday, she started with left ear pain. Reports that she was told to take wnjf-sly-actwyak antihistamine and other medications, to help with her symptoms, but this has not been helping. She also went to [facility] emergency department, and was told that she [...] and Complexity of Problems Differential Diagnosis: [] [facility] Data External documents reviewed: [] My [...] Hooper In 3 days 10/13/2022 EDT [address] [place] [address]- ([phone] (more content not included)... Normal [facility] Comment on above: [...] weeks. Home care treatment may include: ? Natv-wmp-xpsmdqc pain relievers. ? A warm, moist cloth placed over the ear. Severe cases may require a procedure to insert tubes in the ears (tympanostomy tubes) to drain the fluid. Follow these instructions at home: ? Take nwfk-kep-rdqpmca and prescription medicines only as told by [...] provider. Document Revised: 09/11/2021 Document Reviewed: 09/11/2021 [employer] Patient Education ? 2022 [employer] Normal [facility] ED Patient Summaryon 023 ED Patient Summary [address] [address] Patient Discharge Instructions Person Information Name: JESSICA FERRERA Age: 67 Years Arrival Date: 10/10/2022 14:53:25 Discharge Diagnosis: Left serous otitis media Primary Care Physician: Ricardo Hooper MD Provider Information Primary Provider: Rocael Wayne DO Advanced Desktop Engineer:None The exam and treatment you received in the Emergency Department were for an urgent problem and are not intended as complete care. It is important that you follow up with a doctor, nurse practitioner, or physician?s nutrition assistant for ongoing care. If your symptoms [...] Follow-up Instructions: With: Address: When: Ricardo Hooper [address] [place] [address], [facility] [place] [address] Business (1) In 3 days [...] opioids can be used to help relieve qmcljkvg-pt-efdtxi pain and are often prescribed following a [...] abuse and (more content not included)... Normal [facility] INSULINon 08-31-2022 Insulin 18.9 uIU/mL Normal 2.6-24.9 [facility] Comment on above: Performed By: #### I NSULIN #### [facility] [address] [place] [address] Dr. Barrington Gomez CBC AUTO DIFFon 08-29-2022 BASO # 0.1 103/ul Normal 0.0-0.1 [facility] Comment on above: Performed By: #### C BC #### [facility] [address] [place] [address] Dr. Barrington Gomez Basophils/100 WBC (Bld) 0.9 % Normal 0.2-2.0 [facility] Comment on above: Performed By: #### C BC #### [facility] [address] [place] [address] Dr. Barrington Gomez EO # 0.1 103/ul Normal 0.0-0.7 [facility] Comment on above: Performed By: #### C BC #### [facility] [address] [place] [address] Dr. Barrington Gomez Eosinophils/100 WBC (Bld) 1.9 % Normal 0.9-7.0 [facility] Comment on above: Performed By: #### C BC #### [facility] [address] [place] [address] Dr. Barrington Gomez Erythrocyte distribution width (RBC) [Ratio] 16.9 % Critically high 11.0-15.0 [facility] Comment on above: Performed By: #### C BC #### [facility] [address] [place] [address] Dr. Barrington Gomez Hematocrit (Bld) [Volume fraction] 44.4 % Normal 36.0-48.0 [facility] Comment on above: Performed By: #### C BC #### [facility] [address] [place] [address] Dr. Barrington Gomez Hemoglobin (Bld) [Mass/Vol] 13.9 g/dL Normal 12.0-16.0 [facility] Comment on above: Performed By: #### C BC #### [facility] [address] [place] [address] Dr. Barrington Gomez IG # 0.02 10e3/ul Normal 0.00-0.03 [facility] Comment on above: Performed By: #### C BC #### [facility] [address] [place] [address] Dr. Barrington Gomez IG % 0.3 % Normal 0.0-0.5 [facility] Comment on above: Performed By: #### C BC #### [facility] [address] [place] [address] Dr. Barrington Gomez LYMPH # 3.0 103/ul Normal 1.2-3.8 [facility] Comment on above: Performed By: #### C BC #### [facility] [address] [place] [address] Dr. Barrington Gomez Lymphocytes/100 WBC (Bld) 47.6 % Normal 20.5-60.0 [facility] Comment on above: Performed By: #### C BC #### [facility] [address] [place] [address] Dr. Barrington Gomez MANUAL DIFF REQ NO Normal [facility] Comment on above: Performed By: #### C BC #### [facility] [address] [place] [address] Dr. Barrington Gomez MCH (RBC) [Entitic mass] 27.4 pg Normal 26.7-34.0 [facility] Comment on above: Performed By: #### C BC #### [facility] [address] [place] [address] Dr. Barrington Gomez MCHC (RBC) [Mass/Vol] 31.3 g/dL Normal 29.9-35.2 [facility] Comment on above: Performed By: #### C BC #### [facility] [address] [place] [address] Dr. Barrington Gomez MCV (RBC) [Entitic vol] 87.6 fL Normal 81.0-99.0 [facility] Comment on above: Performed By: #### C BC #### [facility] [address] [place] [address] Dr. Barrington Gomez MONO # 0.6 103/ul Normal 0.3-0.8 [facility] Comment on above: Performed By: #### C BC #### [facility] [address] [place] [address] Dr. Barrington Gomez Monocytes/100 WBC (Bld) 8.8 % Normal 1.7-12.0 [facility] Comment on above: Performed By: #### C BC #### [facility] [address] [place] [address] Dr. Barrington Gomez NEUT # 2.6 103/ul Normal 1.4-6.5 [facility] Comment on above: Performed By: #### C BC #### [facility] [address] [place] [address] Dr. Barrington Gomez Neutrophils/100 WBC (Bld) 40.5 % Critically low 43.0-75.0 [facility] Comment on above: Performed By: #### C BC #### [facility] [address] [place] [address] Dr. Barrington Gomez Platelet mean volume (Bld) [Entitic vol] 9.4 fL Critically low 9.5-13.5 [facility] Comment on above: Performed By: #### C BC #### [facility] [address] [place] [address] Dr. Barrington Gomez PLT 243 103/ul Normal 150-450 [facility] Comment on above: Performed By: #### C BC #### [facility] [address] [place] [address] Dr. Barrington Gomez RBC 5.07 106/ul Normal 4.20-5.40 [facility] Comment on above: Performed By: #### C BC #### [facility] [address] [place] [address] Dr. Barrington Gomez WBC 6.4 103/ul Normal 4.0-11.0 [facility] Comment on above: Performed By: #### C BC #### [facility] [address] [place] [address] Dr. Barrington Gomez FREE THYROXINE INDEX T7on FTI 3.07 Normal 1.30-4.50 [facility] Comment on above: Performed By: #### U AMIC #### [facility] [address] [place] [address] Dr. Barrington Gomez T3U 32.0 % Normal 30.0-39.0 [facility] Comment on above: Performed By: #### U AMIC #### [facility] [address] [place] [address] Dr. Barrington Gomez T4 [Mass/Vol] 9.60 ug/dL Normal 4.80-13.90 [facility] Comment on above: Performed By: #### U AMIC #### [facility] [address] [place] [address] Dr. Barrington Gomez GLYCOHEMOGLOBIN A1Con 2022 ADA RECOMMENDATION SEE BELOW Normal [facility] Comment on above: Result Comment: ADA RECOMMENDED LIMIT 4.0 - 6.0 ADA THERAPEUTIC TARGET < 7.0 ACTION SUGGESTED > 7.0 Performed By: #### A 1C #### [facility] [address] [place] [address] [address] Barrington Gomez Glucose [Mass/Vol] 120 mg/dL Normal [facility] Comment on above: Performed By: #### A 1C #### [facility] [address] [place] [address] [address] Barrington Gomez HbA1c (Bld) [Mass fraction] 5.8 % Normal 4.5-6.2 [facility] Comment on above: Performed By: #### A 1C #### [facility] [address] [place] [address] [address] Barrington Gomez IRONon 08-29-2022 Iron [Mass/Vol] 85.0 ug/dL Normal 50.0-170.0 [facility] Comment on above: Performed By: #### U AMIC #### [facility] [address] [place] [address] Dr. Barrington Gomez LIPID PROFILEon 08-29-2022 CHOL-HDL RATIO NORM SEE BELOW Normal [facility] Comment on above: Result Comment: 3.3 - 4.4 LOW RISK 4.4 - 7.1 AVERAGE RISK 7.1 - 11.0 MODERATE RISK >11.0 HIGH RISK Performed By: #### U AMIC #### [facility] [address] [place] [address] Dr. Barrington Gomez Cholesterol [Mass/Vol] 226 mg/dL Critically high <=200 [facility] Comment on above: Performed By: #### U AMIC #### [facility] [address] [place] [address] Dr. Barrington Gomez Cholesterol in HDL [Mass/Vol] 93 mg/dL Critically high 40-60 [facility] Comment on above: Performed By: #### U AMIC #### [facility] [address] [address] [address] Barrington Gomez Cholesterol in LDL [Mass/Vol] 114.6 mg/dL Normal [facility] Comment on above: Performed By: #### U AMIC #### [facility] [address] [place] [address] Dr. Barrington Gomez Cholesterol.total/Choles terol in HDL [Mass ratio] 2.4 {ratio} Normal [facility] Comment on above: Performed By: #### U AMIC #### [facility] [address] [place] [address] [address] Barrington Gomez HDL NORMAL > or = 60 mg/dl - LO W CARDIOVASCULAR RISK <40 mg/dl - HIGH CARDIOVASCULAR RISK Normal [facility] Comment on above: Performed By: #### U AMIC #### [facility] [address] [address] [address] Barrington Gomez LDL CALC NORMAL SEE BELOW Normal [facility] Comment on above: Result Comment: <100 mg/dl OPTIMAL 100 - 129 mg/dl NEAR OR ABOVE OPTIMAL 130 - 159 mg/dl BORDERLINE HIGH 160 - 189 mg/dl HIGH >190 mg/dl VERY HIGH Performed By: #### U AMIC #### [facility] [address] [address] [address] Barrington Gomez Triglyceride [Mass/Vol] 92 mg/dL Normal <=150 [facility] Comment on above: Performed By: #### U AMIC #### [facility] [address] [address] [address] Barrington Gomez VLDL CALC 18.4 mg/dL Normal [facility] Comment on above: Performed By: #### U AMIC #### [facility] [address] [address] [address] Barrington Gomez PROF 14(COMP METB)on 023 Albumin [Mass/Vol] 3.5 g/dL Normal 3.4-5.0 [facility] Comment on above: Performed By: #### U AMIC #### [facility] [address] [address] [address] Barrington Gomez Albumin/Globulin [Mass ratio] 1.1 {ratio} Normal [facility] Comment on above: Performed By: #### U AMIC #### [facility] [address] [address] [address] Barrington Gomez ALP [Catalytic activity/Vol] 71 U/L Normal 46-116 [facility] Comment on above: Performed By: #### U AMIC #### [facility] [address] [place] [address] [address] Barrington Gomez ALT [Catalytic activity/Vol] 28 U/L Normal 14-59 [facility] Comment on above: Performed By: #### U AMIC #### [facility] [address] [address] [address] Barrington Gomez Anion gap [Moles/Vol] 10.4 mmol/L Normal [facility] Comment on above: Performed By: #### U AMIC #### [facility] [address] [address] [address] Barrington Gomez AST [Catalytic activity/Vol] 15 U/L Normal 15-37 [facility] Comment on above: Performed By: #### U AMIC #### [facility] [address] [address] [address] Barrington Gomez Bilirubin [Mass/Vol] 0.4 mg/dL Normal 0.2-1.0 [facility] Comment on above: Performed By: #### U AMIC #### [facility] [address] [address] [address] Barrington Gomez Calcium [Mass/Vol] 9.4 mg/dL Normal 8.5-10.1 [facility] Comment on above: Performed By: #### U AMIC #### [facility] [address] [address] [address] Barrington Gomez Chloride [Moles/Vol] 106 mmol/L Normal 98-107 [facility] Comment on above: Performed By: #### U AMIC #### [facility] [address] [address] [address] Barrington Gomez CO2 [Moles/Vol] 29.8 mmol/L Normal 21.0-32.0 [facility] Comment on above: Performed By: #### U AMIC #### [facility] [address] [address] [address] Barrington Gomez Creatinine [Mass/Vol] 0.91 mg/dL Normal 0.55-1.02 [facility] Comment on above: Performed By: #### U AMIC #### [facility] [address] [address] [address] Barrington Gomez EGFR-AF UZBEK >60 Normal >=60 [facility] Comment on above: Performed By: #### U AMIC #### [facility] [address] [address] [address] Barrington Gomez EGFR-NON AF UZBEK >60 Normal >=60 [facility] Comment on above: Performed By: #### U AMIC #### [facility] [address] [address] [address] Barrington Gomez Globulin (S) [Mass/Vol] 3.1 g/dL Normal T [facility] Comment on above: Performed By: #### U AMIC #### [facility] [address] [address] [address] Barrington Gomez Glucose [Mass/Vol] 88 mg/dL Normal 74-106 [facility] Comment on above: Performed By: #### U AMIC #### [facility] [address] [address] [address] Barrington Gomez Potassium [Moles/Vol] 4.2 mmol/L Normal 3.5-5.1 [facility] Comment on above: Performed By: #### U AMIC #### [facility] [address] [place] [address] Dr. Barrington Gomez Protein [Mass/Vol] 6.6 g/dL Normal 6.4-8.2 [facility] Comment on above: Performed By: #### U AMIC #### [facility] [address] [address] [address] Barrington Gomez Sodium [Moles/Vol] 142 mmol/L Normal 136-145 [facility] Comment on above: Performed By: #### U AMIC #### [facility] [address] [address] [address] Barrington Gomez Urea nitrogen [Mass/Vol] 13.0 mg/dL Normal 7.0-18.0 [facility] Comment on above: Performed By: #### U AMIC #### [facility] [address] [address] [address] Barrington Gomez Urea nitrogen/Creatinine [Mass ratio] 14.3 mg/mg Normal [facility] Comment on above: Performed By: #### U AMIC #### [facility] [address] [place] [address] Dr. Barrington Gomez TSHon 08-29-2022 TSH 1.585 uIU/mL Normal 0.358-3.740 [facility] Comment on above: Performed By: #### U AMIC #### [facility] [address] [address] [address] Barrington Gomez Covid-19 PCR ([facility])on 04-01 SARS-CoV-2 (COVID-19) RNA EVAN+probe Ql (Unsp spec) Not detected Normal NOT DETECTED [facility] Comment on above: Result Comment: When diagnostic [...] for this test is supported by the [employer] of Health and Human Service's declaration that [...] used). Performed By: #### C VDTBH #### [facility] [address] [place] [address] Dr. Barrington Gomez INFLUENZA A AND B AGon 04-28 INFLUBNEGH SEE BELOW Normal [facility] Comment on above: Result Comment: Nega tive for Flu B protein antigen. Infection due to Flu B cannot be ruled out. Flu B antigen in the sample may be below the detection limit of the test. Performed By: #### I NFLUAB #### [facility] [address] [place] [address] Dr. Barrington Gomez INFLUENZA A AG Positive Abnormal NEGATIVE SEE COMMENT [facility] Comment on above: Performed By: #### I NFLUAB #### [facility] [address] [address] [address] Barrington Gomez INFLUENZA B AG Negative Normal NEGATIVE SEE COMMENT [facility] Comment on above: Performed By: #### I NFLUAB #### [facility] [address] [address] [address] Barrington Gomez INFLUPOSH SEE BELOW Normal [facility] Comment on above: Result Comment: NOTE : Live attenuated influenzae vaccine viruses can cause a positive result for a rapid influenza diagnostic test if administered up to 7 days prior to rapid testing. Performed By: #### I NFLUAB #### [facility] [address] [place] [address] Dr. Barrington Gomez INTERNAL CONTROLS Within Normal Limits Normal Wi thin Normal Limits [facility] Comment on above: Performed By: #### I NFLUAB #### [facility] [address] [address] [address] Barrington Gomez Basic Metabolic Panelon 2 Anion gap [Moles/Vol] 6 mmol/L Low 9 - 17 mmol/L [facility] [employer] Calcium [Mass/Vol] 8.5 mg/dL Low 8.6 - 10. 4 mg/dL [facility] [employer] Chloride [Moles/Vol] 108 mmol/L High 98 - 10 7 mmol/L [facility] [employer] CO2 [Moles/Vol] 24 mmol/L 20 - 31 mmol/L [facility] [employer] Creatinine [Mass/Vol] 0.93 mg/dL High 0.5 - 0.9 mg/dL [facility] [employer] [place] GFR >60 60 - PI NF mL/min Producteev [facility] [facility] [employer] GFR Non- >60 60 - PINF mL/min [facility] [employer] GFR/1.73 sq M.predicted MDRD (S/P/Bld) [Vol rate/Area] [facility] [employer] Comment on above: Average GFR for 60-6 9 years old: 85 mL/min/1.73sq m Chronic Kidney Disease: <60 mL/min/1.73sq m Kidney failure: <15 mL/min/1.73sq m eGFR calculated using average adult body mass. Additional eGFR calculator available at: http://www.Hybrigenics/multiple_crcl_2012.htm Glucose [Mass/Vol] 145 mg/dL High 70 - 99 mg/dL [facility] Interpretation and review of laboratory results Abnormal [facility] Potassium [Moles/Vol] 4.9 mmol/L 3.7 - 5.3 mmol/L [facility] Sodium [Moles/Vol] 138 mmol/L 135 - 144 mmol/L [facility] Urea nitrogen (BldV) [Mass/Vol] 9 mg/dL 8 - 23 mg/dL [facility] Urea nitrogen/Creatinine (Bld) [Mass ratio] 10 - 20 [facility] Basic Metabolic Profon 02-17 (cont.) Normal [facility] Comment on above: Result Comment: Aver age GFR for 60-69 years old: 85 mL/min/1.73sq m Chronic Kidney Disease: <60 mL/min/1.73sq m Kidney failure: <15 mL/min/1.73sq m eGFR calculated using average adult body mass. Additional eGFR calculator available at: http://www.Hybrigenics/multiple_crcl_2012.htm Performed By: #### C DP, BMP #### [facility] [address] [place] [address] Naturopathic Doctor: Jelani Liu MD Anion gap [Moles/Vol] 6 mmol/L Low 9-17 [facility] Comment on above: Performed By: #### C DP, BMP #### [facility] [address] [place] [address] Naturopathic Doctor: Jelani Liu MD BUN/CRE Ratio 10 Normal -20 [facility] Comment on above: Performed By: #### C DP, BMP #### [facility] [place] [address] Naturopathic Doctor: Jelani Liu MD Calcium [Mass/Vol] 8.5 mg/dL Low 8.6-10.4 [facility] Comment on above: Performed By: #### C DP, BMP #### [facility] [address] [place] [address] Naturopathic Doctor: Jelani Liu MD Chloride [Moles/Vol] 108 mmol/L High 98-107 [facility] Comment on above: Performed By: #### C DP, BMP #### [facility] [address] [place] [address] Naturopathic Doctor: Jelani Lui MD CO2 [Moles/Vol] 24 mmol/L Normal 20-31 [facility] Comment on above: Performed By: #### C DP, BMP #### [facility] [address] [facility] [address] Naturopathic Doctor: Jelani Liu MD Creatinine [Mass/Vol] 0.93 mg/dL High 0.50-0.90 [facility] Comment on above: Performed By: #### C DP, BMP #### [facility] [address] [facility] [address] Naturopathic Doctor: Jelani Liu MD GFR, Amer >60 Normal >60 [facility] Comment on above: Performed By: #### C DP, BMP #### [facility] [address] [place] [address] Naturopathic Doctor: Jelani Liu MD GFR,non Amer >60 Normal >60 [facility] Comment on above: Performed By: #### C DP, BMP #### [facility] [address] [place] [address] Naturopathic Doctor: Jelani Liu MD Glucose [Mass/Vol] 145 mg/dL High 70-99 [facility] Comment on above: Performed By: #### C DP, BMP #### [facility] [address] [place] [address] Naturopathic Doctor: Jelani Liu MD Potassium [Moles/Vol] 4.9 mmol/L Normal 3.7-5.3 [facility] Comment on above: Performed By: #### C DP, BMP #### [facility] [address] [place] [address] Naturopathic Doctor: Jelani Liu MD Sodium [Moles/Vol] 138 mmol/L Normal 135-144 [facility] Comment on above: Performed By: #### C DP, BMP #### [facility] [address] [place] [address] Naturopathic Doctor: Jelani Liu MD Urea nitrogen [Mass/Vol] 9 mg/dL Normal 8-23 [facility] Comment on above: Performed By: #### C DP, BMP #### [facility] [address] [place] [address] Naturopathic Doctor: Jelani Liu MD CBC with Auto Differentialon 02-17-2022 Absolute Eos # [facility] Absolute Immature Granulocyte 0.05 [facility] Absolute Lymph # 1.47 [facility] [place] [facility] Absolute [place] # 0.63 [facility] Basophils (Bld) [#/Vol] 0.03 10*3/uL [facility] Basophils/100 WBC (Bld) 0 % 0 - 2 % [facility] Eosinophils/100 WBC (Bld) 0 % Low 1 - 4 % [facility] Hematocrit (Bld) [Volume fraction] 32.5 % Low 36.3 - 47.1 % [facility] Hemoglobin (Bld) [Mass/Vol] 9.8 g/dL Low 11.9 - 15.1 g/dL [facility] Immature granulocytes/100 WBC (Bld) 0 % 0 [facility] Interpretation and review of laboratory results Abnormal [facility] Lymphocytes/100 WBC (Bld) 11 % Low 24 - 43 % [facility] MCH (RBC) [Entitic mass] 25.3 pg 25. 2 - 33.5 pg [facility] MCHC (RBC) [Mass/Vol] 30.2 g/dL 28.4 - 34.8 g/dL [facility] MCV (RBC) [Entitic vol] 83.8 fL 82.6 - 102.9 fL [facility] Monocytes/100 WBC (Bld) 5 % 3 - 12 % [facility] NRBC Automated 0.0 0.0 per 100 WBC [facility] Platelet distribution width (Bld) [Ratio] 14.9 % High 11.8 - 14.4 % [facility] Platelet mean volume (Bld) [Entitic vol] 10.6 fL 8.1 - 13.5 fL [facility] Platelets (Bld) [#/Vol] 269 10*3/uL [facility] RBC (Bld) [#/Vol] 3.88 10*6/uL Low 3.95 - 5.1 1 m/uL [facility] RBC (Bld) [#/Vol] ANISOCYTOSIS PRESENT [facility] Segmented neutrophils/100 WBC (Bld) 84 % High 36 - 65 % [facility] Segs Absolute 11.41 High [facility] WBC (Bld) [#/Vol] 13.6 10*3/uL High [facility] CBC with Diffon 02-17-2022 Abs. Basophil 0.03 k/uL Normal 0.00-0.20 [facility] Comment on above: Performed By: #### C DP, BMP #### [facility] [address] [place] [address] Naturopathic Doctor: Jelani Liu MD Abs. Eosinophil <0.03 Normal 0.00-0.44 [facility] Comment on above: Performed By: #### C DP, BMP #### [facility] [address] [place] [address]. [place] [address] Naturopathic Doctor: Jelani Liu MD Abs.Imm.Granulocyte 0.05 k/uL Normal 0.00-0.30 [facility] Comment on above: Performed By: #### C DP, BMP #### [facility] [address] [place] [address] Naturopathic Doctor: Jelani Liu MD Abs.Neutrophil (Seg) 11.41 k/uL High 1.50-8.10 [facility] Comment on above: Performed By: #### C DP, BMP #### [facility] [address] [place] [address] Naturopathic Doctor: Jelani Liu MD Basophils/100 WBC (Bld) 0 % Normal 0-2 [facility] Comment on above: Performed By: #### C DP, BMP #### [facility] [address] [place] [address] Naturopathic Doctor: Jelani Liu MD Eosinophils/100 WBC (Bld) 0 % Low 1-4 [facility] Comment on above: Performed By: #### C DP, BMP #### [facility] [address] [place] [address] Naturopathic Doctor: Jelani Liu MD Erythrocyte distribution width (RBC) [Ratio] 14.9 % High 11.8-14.4 [facility] Comment on above: Performed By: #### C DP, BMP #### [facility] [address] [place] [address] Naturopathic Doctor: Jelani Liu MD Hematocrit (Bld) [Volume fraction] 32.5 % Low 36.3-47.1 [facility] Comment on above: Performed By: #### C DP, BMP #### [facility] [address] [place] [address]. [place] [address] Naturopathic Doctor: Jelani Liu MD Hemoglobin (Bld) [Mass/Vol] 9.8 g/dL Low 11.9-15.1 [facility] Comment on above: Performed By: #### C DP, BMP #### [facility] [address] [place] [address] Naturopathic Doctor: Jelani Liu MD Immature granulocytes/100 WBC (Bld) 0 % Normal 0 [facility] Comment on above: Performed By: #### C DP, BMP #### [facility] [address] [place] [address] Naturopathic Doctor: Jelani Liu MD Lymphocytes (Bld) [#/Vol] 1.47 10*3/uL Normal 1.10-3.70 [facility] Comment on above: Performed By: #### C DP, BMP #### [facility] [address] [place] [address] Naturopathic Doctor: Jelani Liu MD Lymphocytes/100 WBC (Bld) 11 % Low 24-43 [facility] Comment on above: Performed By: #### C DP, BMP #### [facility] [address] [place] [address] Naturopathic Doctor: Jelani Liu MD MCH (RBC) [Entitic mass] 25.3 pg Normal 25.2-33.5 [facility] Comment on above: Performed By: #### C DP, BMP #### [facility] [address] [place] [address]. [place] [address] Naturopathic Doctor: Jelani Liu MD MCHC (RBC) [Mass/Vol] 30.2 g/dL Normal 28.4-34.8 [facility] Comment on above: Performed By: #### C DP, BMP #### [facility] [place] [address] Naturopathic Doctor: Jelani Liu MD MCV (RBC) [Entitic vol] 83.8 fL Normal 82.6-102.9 [facility] Comment on above: Performed By: #### C DP, BMP #### [facility] [place] [address] Naturopathic Doctor: Jelani Liu MD Monocytes (Bld) [#/Vol] 0.63 10*3/uL Normal 0.10-1.20 [facility] Comment on above: Performed By: #### C DP, BMP #### [facility] [address] [place] [address]. [place] [address] Naturopathic Doctor: Jelani Liu MD Monocytes/100 WBC (Bld) 5 % Normal 3-12 [facility] Comment on above: Performed By: #### C DP, BMP #### [facility] [address] [place] [address]. [place] [address] Naturopathic Doctor: Jelani Liu MD Neutrophil (Seg) 84 % High 36-65 [facility] Comment on above: Performed By: #### C DP, BMP #### [facility] [address] [place] [address]. [place] [address] Naturopathic Doctor: Jelani Liu MD NRBC Automated 0.0 per 100 WBC Normal 0.0 [facility] Comment on above: Performed By: #### C DP, BMP #### [facility] [address] [place] [address]. [place] [address] Naturopathic Doctor: Jelani Liu MD Platelet mean volume (Bld) [Entitic vol] 10.6 fL Normal 8.1-13.5 [facility] Comment on above: Performed By: #### C DP, BMP #### [facility] [address] [place] [address] Naturopathic Doctor: Jelani Liu MD Platelets (Bld) [#/Vol] 269 10*3/uL Normal 138-453 [facility] Comment on above: Performed By: #### C DP, BMP #### [facility] [address] [place] [address] Naturopathic Doctor: Jelani Liu MD RBC (Bld) [#/Vol] 3.88 10*6/uL Low 3.95-5.11 [facility] Comment on above: Performed By: #### C DP, BMP #### [facility] [address] [place] [address]. [place] [address] Naturopathic Doctor: Jelani Liu MD RBC morphology finding Nom (Bld) ANISOCYTOSIS PRESENT Normal [facility] Comment on above: Performed By: #### C DP, BMP #### [facility] [place] [address] Naturopathic Doctor: Jelani Liu MD WBC (Bld) [#/Vol] 13.6 10*3/uL High 3.5-11.3 [facility] Comment on above: Performed By: #### C DP, BMP #### [facility] [place] [address] Naturopathic Doctor: Jelani Liu MD FLUORO FOR SURGICAL PROCEDUR ESon 02-16-2022 FLUORO FOR SURGICAL PROCEDURES Radiology exam is complete. No Radiologist dictation. Please follow up with ordering provider. Final result Normal [facility] Radiology exam is complete. No Radiologist dictation. Please follow up with ordering provider. [facility] RIS CONSOLIDATED Cult,Urineon 01-28-2022 Cult,Urine Specimen Description .CLEAN CATCH URINE Culture NO SIGNIFICANT GROWTH Report Status FINAL 01/27/2022 Normal [facility] Comment on above: Performed By: #### U ####[facility] [id number] [place] [address] lab Director: Jelani Liu [address] [id number] lab Director: Terrance Luevano MD Culture, Urineon 01-27-2022 Bacteria identified Cx Nom (U) NO SIGNIFICANT GROWTH [facility] Pianpian Specimen Description .CLEAN CATCH URINE [facility] [employer] APTTon 01-26-2022 aPTT Coag (Bld) [Time] 25.6 s Normal 23.9-33.8 [facility] Comment on above: Result Comment: IV Heparin Therapy Range: 62.0-94.0 Performed By: #### P T, CDP, PTT, BMP ####[facility] [id number] [place] [address] lab Director: Jelani Liu MD aPTT Coag (Bld) [Time] 25.6 s [facility] [employer] Comment on above: IV Heparin Therapy Range: 62.0-94.0 Basic Metabolic Panelon 12-30 Anion gap [Moles/Vol] 10 mmol/L 9 - 17 mmol/L [facility] Calcium [Mass/Vol] 8.8 mg/dL 8.6 - 10. 4 mg/dL [facility] Chloride [Moles/Vol] 104 mmol/L 98 - 10 7 mmol/L [facility] CO2 [Moles/Vol] 24 mmol/L 20 - 31 mmol/L [facility] Creatinine [Mass/Vol] 1.01 mg/dL High 0.5 - 0.9 mg/dL [facility] GFR >60 60 - PI NF mL/min [employer] GFR Non- 55 mL/min Low 60 - PINF mL/min [employer] GFR/1.73 sq M.predicted MDRD (S/P/Bld) [Vol rate/Area] [facility] Comment on above: Average GFR for 60-6 9 years old: 85 mL/min/1.73sq m Chronic Kidney Disease: <60 mL/min/1.73sq m Kidney failure: <15 mL/min/1.73sq m eGFR calculated using average adult body mass. Additional eGFR calculator available at: http://www.Hybrigenics/multiple_crcl_2012.htm Glucose [Mass/Vol] 101 mg/dL High 70 - 99 mg/dL [facility] Interpretation and review of laboratory results Abnormal [facility] Potassium [Moles/Vol] 3.9 mmol/L 3.7 - 5.3 mmol/L [facility] Sodium [Moles/Vol] 138 mmol/L 135 - 144 mmol/L [facility] Urea nitrogen (BldV) [Mass/Vol] 13 mg/dL 8 - 23 mg/dL [facility] Urea nitrogen/Creatinine (Bld) [Mass ratio] 13 9 - 20 [facility] Basic Metabolic Profon 01-26 (cont.) Normal [facility] Comment on above: Result Comment: Aver age GFR for 60-69 years old: 85 mL/min/1.73sq m Chronic Kidney Disease: <60 mL/min/1.73sq m Kidney failure: <15 mL/min/1.73sq m eGFR calculated using average adult body mass. Additional eGFR calculator available at: http://www.Hybrigenics/Migo.me_crcl_2011.htm Performed By: #### P T, CDP, PTT, BMP ####[facility] [id number], [place] [id number] lab Director: Jelani Liu MD Anion gap [Moles/Vol] 10 mmol/L Normal 9-17 [facility] Comment on above: Performed By: #### P T, CDP, PTT, BMP ####[facility] [id number] [place] [address] Lab Director: Jelani Liu MD BUN/CRE Ratio 13 Normal 9-20 [facility] Comment on above: Performed By: #### P T, CDP, PTT, BMP ####[facility] [id number] [place] [address] Lab Director: Jelani Liu MD Calcium [Mass/Vol] 8.8 mg/dL Normal 8.6-10.4 [facility] Comment on above: Performed By: #### P T, CDP, PTT, BMP ####[facility] [id number] [facility] [address] Lab Director: Jelani Liu MD Chloride [Moles/Vol] 104 mmol/L Normal 98-107 [facility] Comment on above: Performed By: #### P T, CDP, PTT, BMP ####[facility] [id number] [facility] [address] Lab Director: Jelani Liu MD CO2 [Moles/Vol] 24 mmol/L Normal 20-31 [facility] Comment on above: Performed By: #### P T, CDP, PTT, BMP ####[facility] [id number] [place] [address].[place] [address] Lab Director: Jelani Liu MD Creatinine [Mass/Vol] 1.01 mg/dL High 0.50-0.90 [facility] Comment on above: Performed By: #### P T, CDP, PTT, BMP ####[facility] [id number] [facility] [address] Lab Director: Jelani Liu MD GFR, Amer >60 Normal >60 [facility] Comment on above: Performed By: #### P T, CDP, PTT, BMP ####[facility] [id number] [place] [address] Lab Director: Jelani Liu MD GFR,non Amer 55 mL/min Low >60 [facility] Comment on above: Performed By: #### P T, CDP, PTT, BMP ####[facility] [id number] [place] [address] Lab Director: Jelani Liu MD Glucose [Mass/Vol] 101 mg/dL High 70-99 [facility] Comment on above: Performed By: #### P T, CDP, PTT, BMP ####[facility] [id number] [place], [place] [phone] Director: Jelani Liu MD Potassium [Moles/Vol] 3.9 mmol/L Normal 3.7-5.3 [facility] Comment on above: Performed By: #### P T, CDP, PTT, BMP ####[facility] [id number] [facility] [address] Lab Director: Jelani Liu MD Sodium [Moles/Vol] 138 mmol/L Normal 135-144 [facility] Comment on above: Performed By: #### P T, CDP, PTT, BMP ####[facility] [id number] [place] [address] Lab Director: Jelani Liu MD Urea nitrogen [Mass/Vol] 13 mg/dL Normal 8-23 [facility] Comment on above: Performed By: #### P T, CDP, PTT, BMP ####[facility] [id number] [place] [address] Lab Director: Jelani Liu MD CBC with Auto Differentialon 01-26-2022 Absolute Eos # 0.00 [facility] Absolute Immature Granulocyte 0.00 [facility] Absolute Lymph # 5.08 High [facility] Comment on above: R/O Chronic Lymphopr oliferative Disorder, recommend peripheral blood Flow Cytometry, if clinically indicated. Absolute [place] # 1.13 [facility] Basophils (Bld) [#/Vol] 0.09 10*3/uL [facility] Basophils/100 WBC (Bld) 1 % 0 - 2 % [facility] Eosinophils/100 WBC (Bld) 0 % Low 1 - 4 % [facility] Hematocrit (Bld) [Volume fraction] 38.1 % 36.3 - 47.1 % [facility] Hemoglobin (Bld) [Mass/Vol] 11.4 g/dL Low 11.9 - 15.1 g/dL [facility] Immature granulocytes/100 WBC (Bld) 0 % 0 [facility] Interpretation and review of laboratory results Abnormal [facility] Lymphocytes/100 WBC (Bld) 54 % High 24 - 43 % [facility] MCH (RBC) [Entitic mass] 25.7 pg 25. 2 - 33.5 pg [facility] MCHC (RBC) [Mass/Vol] 29.9 g/dL 28.4 - 34.8 g/dL [facility] MCV (RBC) [Entitic vol] 86.0 fL 82.6 - 102.9 fL [facility] Monocytes/100 WBC (Bld) 12 % 3 - 12 % [facility] NRBC Automated 0.0 0.0 per 100 WBC [facility] Platelet distribution width (Bld) [Ratio] 16.7 % High 11.8 - 14.4 % [facility] Platelet mean volume (Bld) [Entitic vol] 9.6 fL 8.1 - 13.5 fL [facility] Platelets (Bld) [#/Vol] 277 10*3/uL [facility] RBC (Bld) [#/Vol] 4.43 10*6/uL 3.95 - 5.1 1 m/uL [facility] Segmented neutrophils/100 WBC (Bld) 33 % Low 36 - 65 % [facility] Segs Absolute 3.10 [facility] WBC (Bld) [#/Vol] 9.4 10*3/uL [facility] CBC with Diffon 01-26-2022 Abs. Basophil 0.09 k/uL Normal 0.00-0.20 [facility] Comment on above: Performed By: #### P T, CDP, PTT, BMP ####[facility] [address] [place] [address] Lab Director: Jelani Liu MD Abs.Imm.Granulocyte 0.00 k/uL Normal 0.00-0.30 [facility] Comment on above: Performed By: #### P T, CDP, PTT, BMP ####[facility] Jzr[address] [place], [place] [address])[phone] Director: Jelani Liu MD Abs.Neutrophil (Seg) 3.10 k/uL Normal 1.50-8.10 [facility] Comment on above: Performed By: #### P T, CDP, PTT, BMP ####[facility] Ovf[address] [place], [place] [address])[phone] Director: Jelani Liu MD Basophils/100 WBC (Bld) 1 % Normal 0-2 [facility] Comment on above: Performed By: #### P T, CDP, PTT, BMP ####[facility] [id number] [place] [address]([facility])[phone] Director: Jelani Liu MD Eosinophils (Bld) [#/Vol] 0.00 10*3/uL Normal 0.00-0.44 [facility] Comment on above: Performed By: #### P T, CDP, PTT, BMP ####[facility] [address] [place] [address] Lab Director: Jelani Liu MD Eosinophils/100 WBC (Bld) 0 % Low 1-4 [facility] Comment on above: Performed By: #### P T, CDP, PTT, BMP ####[facility] [address] [place] [address] Lab Director: Jelani Liu MD Immature granulocytes/100 WBC (Bld) 0 % Normal 0 [facility] Comment on above: Performed By: #### P T, CDP, PTT, BMP ####[facility] [address] [place] [address]([facility])[phone] Director: Jelani Liu MD Lymphocytes (Bld) [#/Vol] 5.08 10*3/uL High 1.10-3.70 [facility] Comment on above: Result Comment: R/O Chronic Lymphoproliferative Disorder, recommend peripheral blood Flow Cytometry, if clinically indicated. Performed By: #### P T, CDP, PTT, BMP ####[facility] [id number] [place], [place] [address] [address]([facility])[phone] Director: Jelani Liu MD Lymphocytes/100 WBC (Bld) 54 % High 24-43 [facility] Comment on above: Performed By: #### P T, CDP, PTT, BMP ####[facility] [address] [place], [place] [address] [address]([facility])[phone] Director: Jelani Liu MD Monocytes (Bld) [#/Vol] 1.13 10*3/uL Normal 0.10-1.20 [facility] Comment on above: Performed By: #### P T, CDP, PTT, BMP ####[facility] [address] [place] [address]([facility])[phone] Director: Jelani Liu MD Monocytes/100 WBC (Bld) 12 % Normal 3-12 [facility] Comment on above: Performed By: #### P T, CDP, PTT, BMP ####[facility] [address] [facility] [address] lab Director: Jelani Liu MD Neutrophil (Seg) 33 % Low 36-65 [facility] Comment on above: Performed By: #### P T, CDP, PTT, BMP ####[facility] [address] [place] [address] Lab Director: Jelani Liu MD Erythrocyte distribution width (RBC) [Ratio] 16.7 % High 11.8-14.4 [facility] Comment on above: Performed By: #### P T, CDP, PTT, BMP ####[facility] [address] [place] [address] lab Director: Jelani Liu MD Hematocrit (Bld) [Volume fraction] 38.1 % Normal 36.3-47.1 [facility] Comment on above: Performed By: #### P T, CDP, PTT, BMP ####[facility] [address] [place] [address].[place] [address] Lab Director: Jelani Liu MD Hemoglobin (Bld) [Mass/Vol] 11.4 g/dL Low 11.9-15.1 [facility] Comment on above: Performed By: #### P T, CDP, PTT, BMP ####[facility] [address] [place] [address].[place] [address] Lab Director: Jelani Liu MD MCH (RBC) [Entitic mass] 25.7 pg Normal 25.2-33.5 [facility] Comment on above: Performed By: #### P T, CDP, PTT, BMP ####[facility] [address] [place] [address].[place] [address] Lab Director: Jelani Liu MD MCHC (RBC) [Mass/Vol] 29.9 g/dL Normal 28.4-34.8 [facility] Comment on above: Performed By: #### P T, CDP, PTT, BMP ####[facility] [address], [place] [phone] Director: Jelani Liu MD MCV (RBC) [Entitic vol] 86.0 fL Normal 82.6-102.9 [facility] Comment on above: Performed By: #### P T, CDP, PTT, BMP ####[facility] [address] [place] [address] Lab Director: Jelani Liu MD NRBC Automated 0.0 per 100 WBC Normal 0.0 [facility] Comment on above: Performed By: #### P T, CDP, PTT, BMP ####[facility] [id number] [place], [place] [address], [place] [phone] Director: Jelani Liu MD Platelet mean volume (Bld) [Entitic vol] 9.6 fL Normal 8.1-13.5 [facility] Comment on above: Performed By: #### P T, CDP, PTT, BMP ####[facility] [address] [place] [address].[place] [address] Lab Director: Jelani Liu MD Platelets (Bld) [#/Vol] 277 10*3/uL Normal 138-453 [facility] Comment on above: Performed By: #### P T, CDP, PTT, BMP ####[facility] [address] [place], [place] [address]ia [facility] [address] Lab Director: Jelani Liu MD RBC (Bld) [#/Vol] 4.43 10*6/uL Normal 3.95-5.11 [facility] Comment on above: Performed By: #### P T, CDP, PTT, BMP ####[facility] [address] [place], [place] [address]ia [facility] [address] Lab Director: Jelani Liu MD WBC (Bld) [#/Vol] 9.4 10*3/uL Normal 3.5-11.3 [facility] Comment on above: Performed By: #### P T, CDP, PTT, BMP ####[facility] Mcj[address] [place] [address] Lab Director: Jelani Liu MD MRSA DNA Probe, Nasalon 08- MRSA, DNA, Nasal Negative NEGATIVE [facility] Comment on above: NEGATIVE: MRSA DNA n ot detected by nucleic acid amplification. Results should be used as an adjunct to nosocomial control efforts to identify patients needing enhanced precautions. The test is not intended to identify patients with staphylococcal infections. Results should not be used to guide or monitor treatment for MRSA infections. Specimen Description .NASAL SWAB [facility] MRSA, DNA, Nasalon MRSA, DNA, Nasal Negative Normal NEG [facility] Comment on above: Result Comment: NEGA TIVE: MRSA DNA not detected by nucleic acid amplification. Results should be used as an adjunct to nosocomial control efforts to identify patients needing enhanced precautions. The test is not intended to identify patients with staphylococcal infections. Results should not be used to guide or monitor treatment for MRSA infections. Performed By: #### M RSANO ####[facility] [address] [place] [address] Lab Director: Jyoti Membren[address] [address] Lab Director: Terrance Luevano MD Specimen Description .NASAL SWAB Normal [facility] Comment on above: Performed By: #### M RSANO ####[facility] [address] [place] [address] Lab Director: Jyoti Membren[address] [address] Lab Director: Terrance Luevano MD No Panel Informationon 01-26 [facility] PTon 01-26-2022 INR Coag (PPP) [Relative time] 0.9 {INR} Normal [facility] Comment on above: Result Comment: Non-therapeutic Range: INR = 0.9-1.2 Therapeutic Range: Moderate Anticoagulant Intensity: INR = 2.0-3.0 High Anticoagulant Intensity: INR = 2.5-3.5 Performed By: #### P T, CDP, PTT, BMP #### [facility] [address] [place] [address] Naturopathic Doctor: Jelani Liu MD PT Coag (PPP) [Time] 12.1 s Normal 11.5-14.2 [facility] Comment on above: Performed By: #### P T, CDP, PTT, BMP #### [facility] [address] [place] [address] Naturopathic Doctor: Jelani Liu MD Protime-INRon 01-26-2022 INR Coag (Bld) [Relative time] 0.9 {INR} [facility] Comment on above: Non-therapeutic Range: INR = 0.9-1.2 Therapeutic Range: Moderate Anticoagulant Intensity: INR = 2.0-3.0 High Anticoagulant Intensity: INR = 2.5-3.5 PT Coag (PPP) [Time] 12.1 s [facility] Urinalysison 01-26-2022 Bilirubin Urine Negative NEGATIVE [facility] Color, UA Yellow Yellow [facility] Glucose, Ur Negative NEGATIVE [facility] Interpretation and review of laboratory results Abnormal [facility] Ketones Ql (U) Negative NEGATIVE [facility] Leukocyte esterase Test strip Ql (U) Negative NEGATIVE [facility] Nitrite, Urine Negative NEGATIVE [facility] pH, UA 5.5 5 - 8 [facility] Protein, UA Negative NEGATIVE [facility] Specific [place], UA 1.037 High 1.005 - 1.03 [facility] Turbidity UA Clear Clear [facility] Urinalysis Comments Microscopic exam not performed based on chemical results unless requested in original order. [facility] Urine Hgb Negative NEGATIVE [facility] Urobilinogen, Urine Normal Normal [facility] Urinalysis, Routineon 2021 Bilirubin, SemiQt,Ur Negative Normal NEG [facility] Comment on above: Performed By: #### U A #### [facility] [address] [place] [address] Naturopathic Doctor: Jelani Liu MD Blood, Urine Negative Normal NEG [facility] Comment on above: Performed By: #### U A #### [facility] [address] [place] [address] Naturopathic Doctor: Jelani Liu MD Clarity (U) Clear Normal CLEAR [facility] Comment on above: Performed By: #### U A #### [facility] [address] [facility] [place] [address] Naturopathic Doctor: Jelani Liu MD Color (U) Yellow Normal YEL [facility] Comment on above: Performed By: #### U A #### [facility] [address] [place] [address] Naturopathic Doctor: Jelani Liu MD Comment Microscopic exam not performed based on chemical results unless requested in Normal [facility] Comment on above: Result Comment: orig inal order. Performed By: #### U A #### [facility] [address] [place] [address] Naturopathic Doctor: Jelani Liu MD Glucose Ql (U) Negative Normal NEG [facility] Comment on above: Performed By: #### U A #### [facility] [address] [place] [address] Naturopathic Doctor: Jelani Liu MD Ketones Ql (U) Negative Normal NEG [facility] Comment on above: Performed By: #### U A #### [facility] [address] [place] [address] Naturopathic Doctor: Jelani Liu MD Leukocyte esterase Test strip Ql (U) Negative Normal NEG [facility] Comment on above: Performed By: #### U A #### [facility] [address] [place] [address] Naturopathic Doctor: Jelani Liu MD Nitrite,Ur Negative Normal NEG [facility] Comment on above: Performed By: #### U A #### [facility] [address] [place] [address] Naturopathic Doctor: Jelani Liu MD PH,Ur 5.5 Normal 5.0-8.0 [facility] Comment on above: Performed By: #### U A #### [facility] [address] [place] [address] Naturopathic Doctor: Jelani Liu MD Protein Ql (U) Negative Normal NEG [facility] Comment on above: Performed By: #### U A #### [facility] [address] [place] [address] Naturopathic Doctor: Jelani Liu MD Spec. [place],Ur 1.037 High 1.005-1.030 [facility] Comment on above: Performed By: #### U A #### [facility] [address] [place] [address] Naturopathic Doctor: Jelani Liu MD Urobilinogen,Ur Normal Normal NORM [facility] Comment on above: Performed By: #### U A #### [facility] [address] [place] [address] Naturopathic Doctor: Jelani Liu MD Activated partial thrombopla stin time (aPTT) in platelet poor plasma by coagulation aOrdered By: Dalia Villasenor on 12-29-2021 aPTT Coag (PPP) [Time] 31.0 s 25.1-36.5 [facility] Albumin [Mass/volume] in Ser um or PlasmaOrdered By: Dalia Villasenor on 12-29-2021 Albumin [Mass/Vol] 4.0 g/dL 3.2-5.5 [facility] Albumin [Mass/Vol] 3.5 g/dL 2.9-4.4 [facility] Albumin/Protein.total in 24 hour Urine by ElectrophoresisOrdered By: Dalia Villasenor on 12-29-2021 Albumin Elph (24H U) [Mass fraction] 27.5 % . [facility] Automated erythrocytes count in urine sediment (number/area)Ordered By: Dalia Villasenor on 12-29-2021 RBC Auto (Urine sed) [#/Area] 3-4 [HPF] 0-4 [facility] Automated leukocytes count i n urine sediment (number/area)Ordered By: Dalia Villasenor on 12-29-2021 WBC Auto (Urine sed) [#/Area] None seen [HPF] 0-4 [facility] Basophils Auto (Bld) [#/Vol] Ordered By: Dalia Villasenor on 12-29-2021 Basophils (Bld) [#/Vol] 0.1 10*3/uL 0.0-0.2 [facility] Basophils/100 WBC Auto (Bld) Ordered By: Dalia Villasenor on 12-29-2021 Basophils/100 WBC (Bld) 1.4 % . [facility] Bilirubin Auto test strip Ql (U)Ordered By: Dalia Villasenor on 12-29-2021 Bilirubin Ql (U) Negative Negative [facility] Blood hemoglobin measurement (mass/volume)Ordered By: Dalia Villasenor on 12-29-2021 Hemoglobin (Bld) [Mass/Vol] 12.2 g/dL 11.8-15.4 [facility] Blood leukocytes automated c ount (number/volume)Ordered By: Dalia Villasenor on 12-29-2021 WBC (Bld) [#/Vol] 6.9 10*3/uL 4.5-11.0 [facility] Borrelia burgdorferi Ab [Int erpretation] in SerumOrdered By: Dalia Villasenor on 12-29-2021 B. burgdorferi Ab (S) [Interp] N/A [facility] Borrelia burgdorferi IgG Ab [Presence] in Serum or Plasma by ImmunoassayOrdered By: Dalia Villasenor on 12-29-2021 B. burgdorferi IgG IA Ql N/A [facility] Borrelia burgdorferi IgG+IgM Ab [Presence] in Serum by ImmunoassayOrdered By: Dalia Villasenor on 12-29-2021 B. burgdorferi IgG+IgM IA Ql (S) Negative Negative [facility] Comment on above: Lyme Antibody Negati ve No laboratory evidence of infection with B. burgdorferi (Lyme disease). Negative results may occur in patients recently infected (less than or equal to 14 days) with B. burgdorferi. If recent infection is suspected, repeat testing on a new sample collected in 7 to 14 days is recommended. Performed at: [facility] [address] [id number] Naturopathic Doctor: Castro Lugo PhD, Phone: [phone] Borrelia burgdorferi IgM Ab [Presence] in Serum or Plasma by ImmunoassayOrdered By: Dalia Villasenor on 12-29-2021 B. burgdorferi IgM IA Ql N/A [facility] C reactive protein [Mass/vol ume] in Serum or PlasmaOrdered By: Dalia Villasenor on 12-29-2021 CRP [Mass/Vol] 1.3 mg/dL 0.0-1.[address] [facility] CT biopsyOrdered By: Dalia Villasenor on 12-29-2021 CT biopsy 4.5 U/L 3.3-10.3 [facility] Comment on above: Performed at: [facility] [address] [id number] Naturopathic Doctor: Castro Lugo PhD, Phone: [phone] Creatine kinase [Enzymatic a ctivity/volume] in Serum or PlasmaOrdered By: Dalia Villasenor on 12-29-2021 CK [Catalytic activity/Vol] 77 U/L 22-269 [facility] Creatinine and Glomerular fi ltration rate.predicted panel (S/P/Bld)Ordered By: Dalia Villasenor on 12-29-2021 Creatinine [Mass/Vol] 1.14 mg/dL 0.44-1.03 [facility] Dilute Samuel's viper venom timeOrdered By: Dalia Villasenor on 12-29-2021 dRVVT Coag (PPP) [Time] 34.3 s 0.0-47.0 [facility] Eosinophils Auto (Bld) [#/Vo l]Ordered By: Dalia Villasenor on 12-29-2021 Eosinophils (Bld) [#/Vol] 0.1 10*3/uL 0.0-0.45 [facility] Eosinophils/100 WBC Auto (Bl d)Ordered By: Dalia Villasenor on 12-29-2021 Eosinophils/100 WBC (Bld) 1.3 % . [facility] Erythrocyte distribution wid th Auto (RBC) [Ratio]Ordered By: Dalia Villasenor on 12-29-2021 Erythrocyte distribution width (RBC) [Ratio] 17.9 % 11.9-15.3 [facility] Erythrocyte sedimentation ra te by Photometric methodOrdered By: Dalia Villasenor on 12-29-2021 ESR Photometric method (Bld) [Velocity] 17 mm/hr 0-29 [facility] Estimated glomerular filtrat ion rate (GFR) non- AmericanOrdered By: Dalia Villasenor on 12-29-2021 GFR/1.73 sq M.predicted among non-blacks MDRD (S/P/Bld) [Vol rate/Area] 48 mL/Min [facility] Gamma globulin/Protein.total in 24 hour Urine by ElectrophoresisOrdered By: Dalia Villasenor on 12-29-2021 Gamma globulin Elph (24H U) [Mass fraction] 23.1 % . [facility] Globulin Calc (S) [Mass/Vol] Ordered By: Dalia Villasenor on 12-29-2021 Globulin (S) [Mass/Vol] 2.4 g/dL [facility] Hematocrit Auto (Bld) [Volum e fraction]Ordered By: Dalia Villasenor on 12-29-2021 Hematocrit (Bld) [Volume fraction] 39.0 % 34.0-46.4 [facility] Hepatitis B virus surface Ag [Presence] in Serum or Plasma by ImmunoassayOrdered By: Dalia Villasenor on 12-29-2021 HBV surface Ag IA Ql Negative Negative [facility] IgA [Mass/volume] in Serum o r PlasmaOrdered By: Dalia Villasenor on 12-29-2021 IgA [Mass/Vol] 137 mg/dL 87-352 [facility] IgG [Mass/volume] in Serum o r PlasmaOrdered By: Dalia Villasenor on 12-29-2021 IgG [Mass/Vol] 524 mg/dL [phone] [facility] IgM [Mass/volume] in Serum o r PlasmaOrdered By: Dalia Villasenor on 12-29-2021 IgM [Mass/Vol] 373 mg/dL 26-217 [facility] Immunofixation for UrineOrde red By: Dalia Villasenor on 12-29-2021 Interpretation Immunofixation (U) [Interp] See comment . [facility] Comment on above: No monoclonality det ected. Performed at: [facility] [place] [id number] Naturopathic Doctor: Castro Lugo PhD, Phone: [phone] Ketones Auto test strip (U) [Mass/Vol]Ordered By: Dalia Villasenor on 12-29-2021 Ketones (U) [Mass/Vol] Negative Negative Fi [facility] Laboratory - Chemistry and C hemistry - challengeOrdered By: Dalia Villasenor on 12-29-2021 Cobalamin (Vitamin B12) [Mass/Vol] 193 pg/mL 180-914 [facility] Laboratory - CoagulationOrde red By: Dalia Villasenor on 12-29-2021 PT Coag (PPP) [Time] 10.4 s 9.0-12.9 [facility] - Hematology and Cell countsOrdered By: Dalia Villasenor on 12-29-2021 Nucleated RBC/100 WBC (Bld) [Ratio] 0.0 % 0-0.5 [facility] Laboratory - UrinalysisOrder ed By: Dalia Villasenor on 12-29-2021 Hyaline casts LM Ql (Urine sed) 0-8 [LPF] 0-8 [facility] Lupus anticoagulant [Interpr etation] in Platelet poor plasmaOrdered By: Dalia Villasenor on 12-29-2021 Lupus anticoagulant (PPP) [Interp] Comment: . [facility] Comment on above: No lupus anticoagula nt was detected. Performed at: - [facility] [id number] Naturopathic Doctor: Bharath Linares MD, Phone: [phone] Lymphocytes Auto (Bld) [#/Vo l]Ordered By: Dalia Villasenor on 12-29-2021 Lymphocytes (Bld) [#/Vol] 3.1 10*3/uL 1.00-4.8 [facility] Lymphocytes/100 WBC Auto (Bl d)Ordered By: Dalia Villasenor on 12-29-2021 Lymphocytes/100 WBC (Bld) 44.5 % . [facility] MCH Auto (RBC) [Entitic mass ]Ordered By: Dalia Villasenor on 12-29-2021 MCH (RBC) [Entitic mass] 25.6 pg 24.7-34.3 [facility] MCHC Auto (RBC) [Mass/Vol]Or dered By: Dalia Villasenor on 12-29-2021 MCHC (RBC) [Mass/Vol] 31.4 g/dL 32.0-35.0 [facility] MCV Auto (RBC) [Entitic vol] Ordered By: Dalia Villasenor on 12-29-2021 MCV (RBC) [Entitic vol] 81.7 fL 80-100 [facility] Monocytes Auto (Bld) [#/Vol] Ordered By: Dalia Villasenor on 12-29-2021 Monocytes (Bld) [#/Vol] 0.8 10*3/uL 0.0-0.8 [facility] Monocytes/100 WBC Auto (Bld) Ordered By: Dalia Villasenor on 12-29-2021 Monocytes/100 WBC (Bld) 11.6 % . [facility] Neutrophils Auto (Bld) [#/Vo l]Ordered By: Dalia Villasenor on 12-29-2021 Neutrophils (Bld) [#/Vol] 2.8 10*3/uL 1.8-7.7 [facility] Neutrophils/100 WBC Auto (Bl d)Ordered By: Daliagilson Villasenor on 12-29-2021 Neutrophils/100 WBC (Bld) 41.2 % . [facility] No Panel InformationOrdered By: Dalia Jacklyn on 12-29-2021 Estimated GFR () 58 mL/Min [facility] Comment on above: GFR estimated refere nce range: According to KDOQI guidelines, <60 ml/min/1.73m2 is sufficient to diagnose a patient with chronic kidney disease. Hepatitis B Core Total Antibody Negative Negative [facility] Comment on above: Performed at: [facility] [address] [id number] Naturopathic Doctor: Castro Lugo PhD, Phone: [phone] Hepatitis C Interpretation See comment . [facility] Comment on above: Negative Not infected with HCV, unless recent infection is suspected or other evidence exists to indicate HCV infection. Hepatitis C RNA Quantitative N/A [facility] Creatinine Clearance (Chem N/A [facility] Protein Electrophoresis M-Luis Comment: g/dL Not Observed [facility] Comment on above: [employer] Protein Electrophoresis Note See comment . [facility] Comment on above: Protein electrophore sis scan will follow via computer, mail, or formula bottler delivery. Performed at: [facility] [address] [id number] Naturopathic Doctor: Castro Lugo PhD, Phone: [phone] Serum Immunofixation Comment: . [facility] Comment on above: Presence of monoclon al protein is unclear at this time. Suggest repeat in 3 to 6 months if clinically indicated. Total Complement (CH50) 60 U/mL >41 [facility] Comment on above: Age Male Female [...] determine out of range values. Performed at: [facility] [id number] Naturopathic Doctor: Castro Lugo PhD, Phone: [phone] Urine Random Prot Electrophor Note See comment . [facility] Comment on above: Protein electrophore sis scan will follow via computer, mail, or formula bottler delivery. Platelet mean volume Auto (B ld) [Entitic vol]Ordered By: Dalia Villasenor on 12-29-2021 Platelet mean volume (Bld) [Entitic vol] 8.9 fL 6.3-10.7 [facility] Platelet poor plasma interna tional normalized ratio (INR) by coagulation assay (relatOrdered By: Dalia Villasenor on 12-29-2021 INR Coag (PPP) [Relative time] 0.9 {INR} [facility] Comment on above: INR Therapeutic Rang [...] Coag (PPP) [Relative time] 34.6 sec 0.0-47.6 [facility] Platelets Auto (Bld) [#/Vol] Ordered By: Dalia Villasenor on 12-29-2021 Platelets (Bld) [#/Vol] 288 10*3/uL 150-450 [facility] Protein Auto test strip (U) [Mass/Vol]Ordered By: Dalia Villasenor on 12-29-2021 Protein (U) [Mass/Vol] Negative Negative Fi [facility] Protein [Mass/volume] in Ser um or PlasmaOrdered By: Dalia Villasenor on 12-29-2021 Protein [Mass/Vol] 6.4 g/dL 6.0-8.5 [facility] Protein [Mass/volume] in Uri neOrdered By: Dalia Villasenor on 12-29-2021 Protein (U) [Mass/Vol] 6.1 mg/dL Not Estab. Fi [facility] Protein.monoclonal/Protein.t otal in 24 hour Urine by ElectrophoresisOrdered By: Dalia Villasenor on 12-29-2021 Protein.monoclonal Elph (24H U) [Mass fraction] Not observed % Not Observed [facility] RBC Auto (Bld) [#/Vol]Ordere d By: Dalia Villasenor on 12-29-2021 RBC (Bld) [#/Vol] 4.77 10*6/uL 3.60-5.00 [facility] Reagin Ab [Presence] in Seru m by RPROrdered By: Dalia Villasenor on 12-29-2021 Reagin Ab RPR Ql (S) Non-Reactive Non Reactive [facility] Comment on above: Performed at: [facility] [place] [address] Naturopathic Doctor: Castro Lugo PhD, Phone: [phone] Serum globulin measurement ( mass/volume)Ordered By: Dalia Villasenor on 12-29-2021 Globulin (S) [Mass/Vol] 2.9 g/dL 2.2-3.9 F [facility] Serum hepatitis B virus surf shellie antibody detectionOrdered By: Dalia Villasenor on 12-29-2021 HBV surface Ab Ql (S) Non-Reactive . [facility] Comment on above: Non Reactive: Incons istent with immunity, less than 10 mIU/mL Reactive: Consistent with immunity, greater than 9.9 mIU/mL Serum homogeneous pattern an tinuclear antibody (PATRICIA) titerOrdered By: Dalia Villasenor on 12-29-2021 Homogenous nuclear Ab pattern (S) [Titer] N/A [facility] Serum nuclear antibody titer Ordered By: Dalia Villasenor on 12-29-2021 Nuclear Ab (S) [Titer] Negative . [facility] Comment on above: Negative <1:80 Borderline 1:80 Positive >1:80 ICAP nomenclature: [id number] For more information about Hep-2 cell patterns use ANApatterns.org, the official website for the International Consensus on Antinuclear Antibody (PATRICIA) Patterns (ICAP). Performed at: [facility] [place] [address] Naturopathic Doctor: Castro Lugo PhD, Phone: [phone] Serum or plasma alanine schroeder otransferase measurement without P-5'-P (enzymatic activiOrdered By: Dalia Villasenor on 12-29-2021 ALT No additional P-5'-P [Catalytic activity/Vol] 20 U/L 10-60 [facility] Serum or plasma albumin/glob ulin mass ratioOrdered By: Dalia Villasenor on 12-29-2021 Albumin/Globulin [Mass ratio] 1.7 {ratio} [facility] Albumin/Globulin [Mass ratio] 1.2 {ratio} 0.7-1.7 [facility] Serum or plasma alkaline michelle sphatase measurement (enzymatic activity/volume)Ordered By: Dalia Villasenor on 12-29-2021 ALP [Catalytic activity/Vol] 57 U/L 32-92 [facility] Serum or plasma alpha 1 glob ulin measurement by electrophoresis (mass/volume)Ordered By: Dalia Villasenor on 12-29-2021 Alpha 1 globulin Elph [Mass/Vol] 0.2 g/dL 0.0-0.4 [facility] Serum or plasma alpha 2 glob ulin measurement by electrophoresis (mass/volume)Ordered By: Dalia Villasenor on 12-29-2021 Alpha 2 globulin Elph [Mass/Vol] 0.8 g/dL 0.4-1.0 [facility] Serum or plasma aspartate am inotransferase measurement (enzymatic activity/volume)Ordered By: Dalia Villasenor on 12-29-2021 AST [Catalytic activity/Vol] 22 U/L 10-42 [facility] Serum or plasma beta globuli n measurement by electrophoresis (mass/volume)Ordered By: Dalia Villasenor on 12-29-2021 Beta globulin Elph [Mass/Vol] 1.1 g/dL 0.7-1.3 [facility] Serum or plasma calcium lola urement (mass/volume)Ordered By: Dalia Villasenor on 12-29-2021 Calcium [Mass/Vol] 9.7 mg/dL 8.2-10.2 [facility] Serum or plasma chloride catia surement (moles/volume)Ordered By: Dalia Villasenor on 08-01-2022 Chloride [Moles/Vol] 101 mmol/L 95-114 [facility] Serum or plasma chromatin an tibody assay (units/volume)Ordered By: Dalia Villasenor on 12-29-2021 Chromatin Ab Qn <0.2 AI 0.0-0.9 [facility] Comment on above: Performed at: [facility] [address] [id number] Naturopathic Doctor: Castro Lugo PhD, Phone: [phone] Serum or plasma complement C 3 measurement (mass/volume)Ordered By: Dalia Villasenor on 12-29-2021 Complement C3 [Mass/Vol] 133 mg/dL 82-167 [facility] Comment on above: Performed at: [facility] [address] [id number] Naturopathic Doctor: Castro Lugo PhD, Phone: [phone] Serum or plasma complement C 4 measurement (mass/volume)Ordered By: Dalia Villasenor on 12-29-2021 Complement C4 [Mass/Vol] 27 mg/dL 12-38 [facility] Serum or plasma gamma globul in measurement by electrophoresis (mass/volume)Ordered By: Dalia Villasenor on 12-29-2021 Gamma globulin Elph [Mass/Vol] 0.7 g/dL 0.4-1.8 [facility] Serum or plasma glucose lola urement (mass/volume)Ordered By: Dalia Villasenor on 12-29-2021 Glucose [Mass/Vol] 101 mg/dL 70-100 [facility] Comment on above: ADA recommended refe [...] IA [Rel units/Vol] 0.1 s/co ratio 0.0-0.9 [facility] Serum or plasma potassium me asurement (moles/volume)Ordered By: Dalia Villasenor on 12-29-2021 Potassium [Moles/Vol] 4.4 mmol/L 3.5-5.1 [facility] Serum or plasma sodium measu rement (moles/volume)Ordered By: Dalia Villasenor on 12-29-2021 Sodium [Moles/Vol] 137 mmol/L 136-146 [facility] Serum or plasma thyroglobuli n antibody assay (units/volume)Ordered By: Dalia Villasenor on 12-29-2021 Thyroglobulin Ab Qn [IU]/mL 0.0-0.9 [facility] Comment on above: Thyroglobulin Antibo dy measured by [employer] Method[employer] Performed at: [facility] [address] [id number] Naturopathic Doctor: Castro Lugo PhD, Phone: [phone] Serum or plasma thyroperoxid ase antibody assay (units/volume)Ordered By: Dalia Villasenor on 12-29-2021 TPO Ab Qn 28 [IU]/mL 0-34 [facility] Comment on above: Performed at: [facility] [address] [id number] Naturopathic Doctor: Castro Lugo PhD, Phone: [phone] Serum or plasma total biliru bin measurement (mass/volume)Ordered By: Dalia Villasenor on 12-29-2021 Bilirubin [Mass/Vol] 0.5 mg/dL 0.3-1.2 [facility] Serum or plasma total carbon dioxide measurement (moles/volume)Ordered By: Dalia Villasenor on 12-29-2021 CO2 [Moles/Vol] 23.4 mmol/L 22.0-30.0 [facility] Serum or plasma urea nitroge n measurement (mass/volume)Ordered By: Dalia Villasenor on 12-29-2021 Urea nitrogen [Mass/Vol] 8 mg/dL 9-23 [facility] Squamous epithelial cells de tection in urine sediment by light microscopyOrdered By: Dalia Villasenor on 12-29-2021 Epithelial cells.squamous LM Ql (Urine sed) None seen [HPF] 0-2 [facility] TSH DL <= 0.005 mIU/L QnOrde red By: Dalia Villasenor on 12-29-2021 TSH Qn 1.83 m[IU]/L 0.45-5.33 [facility] TT plasOrdered By: Dalia akers on 12-29-2021 Thrombin time Coag (PPP) [Time] 19.1 sec 0.0-23.0 [facility] Thyroxine (T4) free [Mass/vo lume] in Serum or PlasmaOrdered By: Dalia Villasenor on 12-29-2021 Free T4 [Mass/Vol] 0.98 ng/dL 0.61-1.12 [facility] Urine alpha 1 globulin/total protein by electrophoresisOrdered By: Dalia Villasenor on 12-29-2021 Alpha 1 globulin Elph (U) [Mass fraction] 3.9 % . [facility] Urine alpha 2 globulin/total protein ratio by electrophoresisOrdered By: Dalia Villasenor on 12-29-2021 Alpha 2 globulin Elph (U) [Mass fraction] 19.7 % . [facility] Urine appearanceOrdered By: Dalia Villasenor on 12-29-2021 Appearance (U) Clear Clear [facility] Urine bacteria detection by automated methodOrdered By: Dalia Villasenor on 12-29-2021 Bacteria Auto Ql (U) None seen None Seen [facility] Urine beta globulin measurem ent by electrophoresis (mass/volume)Ordered By: Dalia Villasenor on 12-29-2021 Beta globulin Elph (U) [Mass/Vol] 25.8 % . [facility] Urine colorOrdered By: Parmjit Villasenor on 12-29-2021 Color (U) Yellow Yellow [facility] Urine glucose measurement by automated test strip (mass/volume)Ordered By: Dalia Villasenor on 12-29-2021 Glucose Auto test strip (U) [Mass/Vol] Normal mg/dL Normal [facility] Urine hemoglobin detection b y automated test stripOrdered By: Dalia Villasenor on 12-29-2021 Hemoglobin Auto test strip Ql (U) Negative Negative [facility] Urine leukocyte esterase det ection by automated test stripOrdered By: Dalia Villasenor on 12-29-2021 Leukocyte esterase Auto test strip Ql (U) Negative Negative [facility] Urine nitrite detection by a utomated test stripOrdered By: Dalia Villasenor on 12-29-2021 Nitrite Auto test strip Ql (U) Negative Negative [facility] Urobilinogen Auto test strip (U) [Mass/Vol]Ordered By: Daliagilson Villasenor on 12-29-2021 Urobilinogen (U) [Mass/Vol] Normal mg/dL Normal [facility] aPTT.lupus sensitive (LA scr een)Ordered By: Dalia Villasenor on 12-29-2021 aPTT.lupus sensitive Coag (PPP) [Time] 31.9 sec 0.0-51.9 [facility] aPTT.lupus sensitive/aPTT.marcial pus sensitive W excess phospholipid (screen to confirm raOrdered By: Dalia Villasenor on 12-29-2021 aPTT.lupus sensitive/aPTT.lupus sensitive W excess phospholipid Coag (PPP) [Ratio] 1.17 Ratio 0.00-1.34 [facility] pH Auto test strip (U)Ordere d By: Dalia Villasenor on 12-29-2021 pH (U) 1.020 [pH] 1.001-1.030 [facility] pH (U) 6.5 [pH] 5.0-9.0 [facility] CREATININEon 12-26-2021 Creatinine [Mass/Vol] 1.20 mg/dL Critically high 0.55-1.02 [facility] Comment on above: Performed By: #### C HUMBERTO #### [facility] [address] [place] [address] Dr. Barrington Gomez EGFR-AF UZBEK 55 mL/min/1.73m2 Critically low >=60 [facility] Comment on above: Performed By: #### C HUMBERTO #### [facility] [address] [place] [address] [address] Barrington Gomez EGFR-NON AF UZBEK 45 mL/min/1.73m2 Critically low >=60 [facility] Comment on above: Performed By: #### C HUMBERTO #### [facility] [address] [place] [address] ABD/PELV W CONon [...] DEREK COLLINS Date: 2021-12-26 15:19 Normal [facility] CULTURE URINEon 11-28-2021 CULTURE URINE Culture Observations : No growth Normal [facility] Comment on above: Performed By: #### U AMIC #### [facility] [address] [place], [place] [address] Dr. Barrington Gomez UA RANDOM W/MICROSCOPICon BACTERIA TRACE Abnormal NONE SEEN [facility] Comment on above: Performed By: #### U AMIC #### [facility] [address] [place], [place] [address] Dr. Barrington Gomez Bilirubin Ql (U) Negative Normal NEGATIVE [facility] Comment on above: Performed By: #### U AMIC #### [facility] [address] [place] [address] [address] Barrington Gomez CAST SEEN Abnormal NONE SEEN [facility] Comment on above: Performed By: #### U AMIC #### [facility] [address] [place] [address] [address] Barrington Gomez Clarity (U) CLEAR Normal CLEAR [facility] Comment on above: Performed By: #### U AMIC #### [facility] [address] [place] [address] [address] Barrington Gomez Color (U) YELLOW Normal YELLOW [facility] Comment on above: Performed By: #### U AMIC #### [facility] [address] [place] [address] [address] Barrington Gomez Crystals LM Nom (Urine sed) NONE SEEN Normal NONE SEEN [facility] Comment on above: Performed By: #### U AMIC #### [facility] [address] [place] [address] Dr. Barrington Gomez Epithelial cells LM Ql (Urine sed) RARE Normal NONE SEEN /RARE [facility] Comment on above: Performed By: #### U AMIC #### [facility] [address] [place] [address] Dr. Barrington Gomez Glucose Ql (U) Negative Normal NEGATIVE [facility] Comment on above: Performed By: #### U AMIC #### [facility] [address] [place] [address] Dr. Barrington Gomez Hemoglobin Ql (U) Negative Normal NEGATIVE [facility] Comment on above: Performed By: #### U AMIC #### [facility] [address] [place] [address] Dr. Barrington Gomez Ketones Ql (U) Negative Normal NEGATIVE [facility] Comment on above: Performed By: #### U AMIC #### [facility] [address] [place] [address] [address] Barrington Gomez LEUKOCYTES Negative Normal NEGATIVE [facility] Comment on above: Performed By: #### U AMIC #### [facility] [address] [place] [address] [address] Barrington Gomez MUCOUS SMALL Abnormal NONE SEEN [facility] Comment on above: Performed By: #### U AMIC #### [facility] [address] [place] [address] [address] Barrington Gomez Nitrite Ql (U) Negative Normal NEGATIVE [facility] Comment on above: Performed By: #### U AMIC #### [facility] [address] [place] [address] Dr. Barrington Gomez pH (U) 5.5 [pH] Normal 5-9 [facility] Comment on above: Performed By: #### U AMIC #### [facility] [address] [place] [address] [address] Barrington Gomez RBC NONE SEEN Abnormal 0-2 [facility] Comment on above: Performed By: #### U AMIC #### [facility] [address] [place] [address] Dr. Barrington Gomez SPEC GRAVITY >=1.030 Abnormal 1.005-<=1.0 25 [facility] Comment on above: Performed By: #### U AMIC #### [facility] [address] [place] [address] Dr. Barrington Gomez UA PROTEIN Negative Normal NEGATIVE/ TRACE [facility] Comment on above: Performed By: #### U AMIC #### [facility] [address] [place] [address] Dr. Barrington Gomez Urobilinogen Qn (U) 0.2 {Antionette'U}/dL Normal 0.2 - 1. 0 [facility] Comment on above: Performed By: #### U AMIC #### [facility] [address] [place] [address] Dr. Barrington Gomez WBC 0-2 Abnormal NONE SEEN [facility] Comment on above: Performed By: #### U AMIC #### [facility] [address] [place] [address] Dr. Barrington Gomez US KIDNEYS BLADDERon 022 [...] FELISHA BARROW Date: 2021-11-21 15:46 Normal [facility] UA DIP, URINE (POC)on 2021 BILIRUBIN UA (POCT) Negative Negative [facility] CLARITY UA (POCT) Clear [facility] COLOR UA (POCT) Yellow [facility] GLUCOSE UA (POCT) Negative Negative mg/dL [facility] HEMOGLOBIN/BLOOD UA (POCT) Negative Negative [facility] KETONE UA (POCT) Negative Negative mg/dL [facility] LEUKOCYTES UA (POCT) Negative Negative [facility] NITRITE UA (POCT) Negative Negative [facility] PH UA (POCT) 5.0 4.5 - 8.0 [facility] Protein Ql (U) Negative Negative mg/dL [facility] SPECIFIC GRAVITY UA (POCT) 1.020 1.005 - 1.030 [facility] UROBILINOGEN UA (POCT) 0.2 E.U./dL Kelly l E.U./dL [facility] CULTURE URINEon 11-14-2021 CULTURE URINE Culture Observations : GREATER THAN TWO ORGANISMS PRESENT. PLEASE RESUBMIT CLEAN CATCH MID-STREAM URINE IF CLINICALLY INDICATED. Normal [facility] Comment on above: Performed By: #### U AMIC #### [facility] [address] [place] [address] [address] Barrington Gomez UA RANDOM W/MICROSCOPICon BACTERIA NONE SEEN Normal NONE SEEN [facility] Comment on above: Performed By: #### U AMIC #### [facility] [address] [place] [address] [address] Barrington Gomez Bilirubin Ql (U) Negative Normal NEGATIVE [facility] Comment on above: Performed By: #### U AMIC #### [facility] [address] [place] [address] [address] Barrington Gomez CAST NONE SEEN Normal NONE SEEN [facility] Comment on above: Performed By: #### U AMIC #### [facility] [address] [place] [address] [address] Barrington Gomez Clarity (U) SL CLOUDY Abnormal CLEAR [facility] Comment on above: Performed By: #### U AMIC #### [facility] [address] [place] [address] [address] Barrington Gomez Color (U) YELLOW Normal YELLOW [facility] Comment on above: Performed By: #### U AMIC #### [facility] [address] [place] [address] [address] Barrington Gomez Crystals LM Nom (Urine sed) NONE SEEN Normal NONE SEEN [facility] Comment on above: Performed By: #### U AMIC #### [facility] [address] [place] [address] Dr. Barrington Gomez Epithelial cells LM Ql (Urine sed) RARE Normal NONE SEEN /RARE [facility] Comment on above: Performed By: #### U AMIC #### [facility] [address] [place] [address] [address] Barrington Gomez Glucose Ql (U) Negative Normal NEGATIVE [facility] Comment on above: Performed By: #### U AMIC #### [facility] [address] [place] [address] [address] Barrington Gomez Hemoglobin Ql (U) Negative Normal NEGATIVE [facility] Comment on above: Performed By: #### U AMIC #### [facility] [address] [place] [address] [address] Barrington Gomez Ketones Ql (U) Negative Normal NEGATIVE [facility] Comment on above: Performed By: #### U AMIC #### [facility] [address] [place] [address] [address] Barrington Gomez LEUKOCYTES Negative Normal NEGATIVE [facility] Comment on above: Performed By: #### U AMIC #### [facility] [address] [place] [address] [address] Barrington Gomez MUCOUS TRACE Abnormal NONE SEEN [facility] Comment on above: Performed By: #### U AMIC #### [facility] [address] [place] [address] [address] Barrington Gomez Nitrite Ql (U) Negative Normal NEGATIVE [facility] Comment on above: Performed By: #### U AMIC #### [facility] [address] [place] [address] [address] Barrington Gomez pH (U) 5.5 [pH] Normal 5-9 [facility] Comment on above: Performed By: #### U AMIC #### [facility] [address] [place] [address] [address] Barrington Gomez RBC 0-2 Normal 0-2 [facility] Comment on above: Performed By: #### U AMIC #### [facility] [address] [place] [address] Dr. Barrington Gomez SPEC GRAVITY 1.025 Normal 1.005-<=1.0 25 [facility] Comment on above: Performed By: #### U AMIC #### [facility] [address] [place] [address] Dr. Barrington Gomez UA PROTEIN Negative Normal NEGATIVE/ TRACE [facility] Comment on above: Performed By: #### U AMIC #### [facility] [address] [place] [address] Dr. Barrington Gomez Urobilinogen Qn (U) 0.2 {Antionette'U}/dL Normal 0.2 - 1. 0 [facility] Comment on above: Performed By: #### U AMIC #### [facility] [address] [place] [address] Dr. Barrington Gomez WBC NONE SEEN Normal NONE SEEN [facility] Comment on above: Performed By: #### U AMIC #### [facility] [address] [place] [address] Dr. Barrington Gomez CREATININEon 11-04-2021 Creatinine [Mass/Vol] 1.06 mg/dL Critically high 0.55-1.02 [facility] Comment on above: Performed By: #### G WENDY CREA #### [facility] [address] [place] [address] Dr. Barrington Gomez EGFR-AF UZBEK >60 Normal >=60 [facility] Comment on above: Performed By: #### G ENTR, CREA #### [facility] [address] [place] [address] [address] Barrington Gomez EGFR-NON AF UZBEK 52 mL/min/1.73m2 Critically low >=60 [facility] Comment on above: Performed By: #### G ENTR, CREA #### [facility] [address] [place] [address] [address] Barrington Gomez GENTAMICIN RANDOMon 11-05-19 22 GENTAMICIN 5.2 ug/mL Normal [facility] Comment on above: Performed By: #### G ENTR, CREA #### [facility] [address] [place] [address] [address] Barrington Gomez CULTURE URINEon 10-22-2021 CULTURE [...] F Trimethoprim/Sulfamet hoxazole >=320 R F Normal [facility] Comment on above: Performed By: #### U AMIC #### [facility] [address] [place] [address] [address] Barrington Gomez MRI FOOT LT WO [...] ligament seen on the edge of the [id number] for this study. There is no cystic [...] MADISYN CAAL Date: 2021-10-22 08:49 Normal [facility] UA RANDOM W/MICROSCOPICon BACTERIA SMALL Abnormal NONE SEEN [facility] Comment on above: Performed By: #### U AMIC #### [facility] [address] [place] [address] [address] Barrington Gomez Bilirubin Ql (U) Negative Normal NEGATIVE [facility] Comment on above: Performed By: #### U AMIC #### [facility] [address] [place] [address] [address] Barrington Gomez CAST SEEN Abnormal NONE SEEN [facility] Comment on above: Performed By: #### U AMIC #### [facility] [address] [place] [address] [address] Barrington Gomez Clarity (U) CLEAR Normal CLEAR [facility] Comment on above: Performed By: #### U AMIC #### [facility] [address] [place] [address] [address] Barrington Gomez Color (U) DK. ORANGE Abnormal YELLOW [facility] Comment on above: Performed By: #### U AMIC #### [facility] [address] [place] [address] [address] Barrington Gomez Crystals LM Nom (Urine sed) NONE SEEN Normal NONE SEEN [facility] Comment on above: Performed By: #### U AMIC #### [facility] [address] [place] [address] [address] Barrington Gomez Epithelial cells LM Ql (Urine sed) FEW Abnormal NONE SEEN /RARE [facility] Comment on above: Performed By: #### U AMIC #### [facility] [address] [address] [address] Barrington Gomez Glucose Ql (U) Negative Normal NEGATIVE [facility] Comment on above: Performed By: #### U AMIC #### [facility] [address] [address] [address] Barrington Gomez Hemoglobin Ql (U) Negative Normal NEGATIVE [facility] Comment on above: Performed By: #### U AMIC #### [facility] [address] [address] [address] Barrington Gomez HYALINE CAST FEW Normal [facility] Comment on above: Performed By: #### U AMIC #### [facility] [address] [address] [address] Barrington Gomez Ketones Ql (U) TRACE Abnormal NEGATIVE [facility] Comment on above: Performed By: #### U AMIC #### [facility] [address] [address] [address] Barrington Gomez LEUKOCYTES TRACE Abnormal NEGATIVE [facility] Comment on above: Performed By: #### U AMIC #### [facility] [address] [address] [address] Barrington Gomez MUCOUS NONE SEEN Normal NONE SEEN [facility] Comment on above: Performed By: #### U AMIC #### [facility] [address] [place] [address] Dr. Barrington Gomez Nitrite Ql (U) Negative Normal NEGATIVE [facility] Comment on above: Performed By: #### U AMIC #### [facility] [address] [place] [address] Dr. Barrington Gomez pH (U) 5.0 [pH] Normal 5-9 [facility] Comment on above: Performed By: #### U AMIC #### [facility] [address] [place] [address] Dr. Barrington Gomez RBC 0-2 Normal 0-2 [facility] Comment on above: Performed By: #### U AMIC #### [facility] [address] [place] [address] Dr. Barrington Gomez SPEC GRAVITY >=1.030 Abnormal 1.005-<=1.0 25 [facility] Comment on above: Performed By: #### U AMIC #### [facility] [address] [place] [address] Dr. Barrington Gomez UA PROTEIN Negative Normal NEGATIVE/ TRACE [facility] Comment on above: Performed By: #### U AMIC #### [facility] [address] [place] [address] Dr. Barrington Gomez Urobilinogen Qn (U) 0.2 {Antionette'U}/dL Normal 0.2 - 1. 0 [facility] Comment on above: Performed By: #### U AMIC #### [facility] [address] [place], [place] [address] Dr. Barrington Gomez WBC 5-10 Abnormal NONE SEEN [facility] Comment on above: Performed By: #### U AMIC #### [facility] [address] [place], [place] [address] Dr. Barrington Gomez C-Reactive Proteinon 022 CRP IV <0.3 Normal [facility] Specialist Comment on above: Performed By: #### E SR, CRP, CBC #### [facility] [address], [place] [id number] Complete Blood Counton 09-22 Erythrocyte distribution width (RBC) [Ratio] 17.2 % High 11.0-15.0 [facility] Comment on above: Performed By: #### E SR, CRP, CBC #### [facility] [address], [place] [id number] Hematocrit (Bld) [Volume fraction] 41.5 % Normal 35.0-47.0 [facility] Specialist Comment on above: Performed By: #### E SR, CRP, CBC #### [facility] [address], [place] [id number] Hemoglobin (Bld) [Mass/Vol] 12.5 g/dL Normal 11.6-15.5 [facility] Specialist Comment on above: Performed By: #### E SR, CRP, CBC #### [facility] [address], [place] [id number] MCH (RBC) [Entitic mass] 24.7 pg Low 27.0-33.0 [facility] Specialist Comment on above: Performed By: #### E SR, CRP, CBC #### [facility] [address], [place] [id number] MCHC (RBC) [Mass/Vol] 30.1 g/dL Low 32.0-36.0 [facility] Comment on above: Performed By: #### E SR, CRP, CBC #### [facility] [address], [place] [id number] MCV (RBC) [Entitic vol] 82 fL Normal 80-100 [place] [facility] [employer] Protection Technician Comment on above: Performed By: #### E SR, CRP, CBC #### [facility] [address], [place] [id number] Platelet mean volume (Bld) [Entitic vol] 10.40 fL Normal 7.50-12.50 [facility] Specialist Comment on above: Performed By: #### E SR, CRP, CBC #### [facility] [address], [place] [id number] Platelets (Bld) [#/Vol] 317 10*3/uL Normal 140-400 [facility] Specialist Comment on above: Performed By: #### E SR, CRP, CBC #### [facility] [address], [place] [id number] RBC (Bld) [#/Vol] 5.07 10*6/uL Normal 3.90-5.20 [facility] Senior Radiation Protection Technician Comment on above: Performed By: #### E SR, CRP, CBC #### [facility] [address], [place] [id number] RDW-SD 50.8 fL High 37.0-50.0 [facility] Specialist Comment on above: Performed By: #### E SR, CRP, CBC #### [facility] [address], [place] [id number] WBC (Bld) [#/Vol] 9.2 10*3/uL Normal 3.8-11.0 [facility] Specialist Comment on above: Performed By: #### E SR, CRP, CBC #### [facility] [address], [place] [id number] RBC Sedimentation Rateon ESR (Bld) [Velocity] 10.00 mm/h Normal 0.00-30.00 [facility] Specialist Comment on above: Performed By: #### E SR, CRP, CBC #### [facility] [address], [place] [id number] No Panel Information [facility] Vital Signs Date Time Vital Sign Value Performing Clinician Facility 08-30-2023 13: Body height 162.6 cm Ernie Ayers MD Work Phone: [facility] 08-30-2023 13:07-0400 Body weight 111 kg Ernie Ayers MD Work Phone: [facility] 08-30-2023 13:07-0400 Diastolic blood pressure 78 mm[Hg] Ernie Ayers MD Work Phone: [facility] 08-30-2023 13:07-0400 Heart rate 88 /min Ernie Ayers MD Work Phone: [facility] 08-30-2023 13:07-0400 SaO2% (BldA) [Mass fraction] 100 % Ernie Ayers MD Work Phone: [facility] 08-30-2023 13:07-0400 Systolic blood pressure 117 mm[Hg] Ernie Ayers MD Work Phone: [facility] 08-24-2023 09:18-0400 Body height 162.6 cm Dalia Israel PA Work Phone: [facility] 08-24-2023 09:18-0400 Body mass index (BMI) [Ratio] 42.57 kg/m2 Dalia Israel PA [facility] 08-24-2023 09:18-0400 Body weight 112.49 kg Dalia Israel PA Work Phone: [facility] 08-24-2023 09:18-0400 Diastolic blood pressure 105 mm[Hg] Dalia Israel PA Work Phone: [facility] 08-24-2023 09:18-0400 Heart rate 92 /min Dalia Israel PA Work Phone: [employer] 08-24-2023 09:18-0400 Respiratory rate 18 /min Dal[facility] 08-24-2023 09:18-0400 SaO2% (BldA) [Mass fraction] 99 % Dalia Israel PA Work Phone: [facility] 08-24-2023 09:18-0400 Systolic blood pressure 151 mm[Hg] Dalia NOBLE Work Phone: [facility] 08-23-2023 10:00-0400 Body height 162.6 cm Jose Bryant MD Work Phone: [facility] 08-23-2023 10:00-0400 Body temperature 97.9 [degF] Jose Bryant MD Work Phone: [facility] 08-23-2023 10:00-0400 Body weight 112.4 kg Jose Bryant MD Work Phone: [facility] 08-23-2023 10:00-0400 Diastolic blood pressure 92 mm[Hg] Jose Bryant MD Work Phone: [facility] 08-23-2023 10:00-0400 Heart rate 73 /min Jose Bryant MD Work Phone: [facility] 08-23-2023 10:00-0400 Respiratory rate 16 /min Jose Bryant MD Work Phone: [facility] 08-23-2023 10:00-0400 SaO2% (BldA) [Mass fraction] 99 % Jose Bryant MD Work Phone: [facility] 08-23-2023 10:00-0400 Systolic blood pressure 152 mm[Hg] Jose Bryant MD Work Phone: [facility] 07-21-2023 13:45-0500 Body height 162.6 cm Jenni Cardenas MD Work Phone: [facility] 07-21-2023 13:45-0500 Body temperature 97.81 [degF] Jenni Cardenas MD Work Phone: [facility] 07-21-2023 13:45-0500 Body weight 115.21 kg Jenni Cardenas MD Work Phone: [facility] 07-21-2023 13:45-0500 Diastolic blood pressure 90 mm[Hg] Jenni Cardenas MD Work Phone: [facility] 07-21-2023 13:45-0500 Heart rate 85 /min Jenni Cardenas MD Work Phone: [facility] 07-21-2023 13:45-0500 Systolic blood pressure 150 mm[Hg] Jenni Cardenas MD Work Phone: [facility] 07-12-2023 09:18-0500 Body height 162.6 cm Jr. Stepanic DO Work Phone: [facility] 07-12-2023 09:18-0500 Body mass index (BMI) [Ratio] 42.91 kg/m2 Jr. Stepanic DO Work Phone: [facility] 07-12-2023 09:18-0500 Body weight 113.4 kg Jr. Stepanic DO Work Phone: [facility] 10-10-2022 15:14-0400 Body temperature 97.88 [degF] Rocael Wayne [facility] 10-10-2022 15:14-0400 Diastolic blood pressure 92 mm[Hg] Rocael Tone [facility] 10-10-2022 15:14-0400 Heart rate 89 /min Rocael Tone [facility] 10-10-2022 15:14-0400 Respiratory rate 16 /min Rocael Tone [facility] 10-10-2022 15:14-0400 SaO2% (BldA) [Mass fraction] 99 % Rocael Tone [facility] 10-10-2022 15:14-0400 Systolic blood pressure 145 mm[Hg] Rocael Tone [facility] 10-07-2022 10:04-0400 Body height 162.6 cm Jose Bryant MD Work Phone: [facility] 10-07-2022 10:04-0400 Body temperature 97.39 [degF] Jose Bryant MD Work Phone: [facility] 10-07-2022 10:04-0400 Body weight 108.41 kg Jose Bryant MD Work Phone: [facility] 10-07-2022 10:04-0400 Diastolic blood pressure 85 mm[Hg] Jose Bryant MD Work Phone: [facility] 10-07-2022 10:04-0400 Heart rate 83 /min Jose Bryant MD Work Phone: [facility] 10-07-2022 10:04-0400 Respiratory rate 16 /min Jose Bryant MD Work Phone: [facility] 10-07-2022 10:04-0400 SaO2% (BldA) [Mass fraction] 98 % Jose Bryant MD Work Phone: [facility] 10-07-2022 10:04-0400 Systolic blood pressure 148 mm[Hg] Jose Bryant MD Work Phone: [facility] 06-10-2022 11:00-0500 Body height 162.6 cm Jose Bryant MD Work Phone: [facility] 06-10-2022 11:00-0500 Body temperature 97.2 [degF] Jose Bryant MD Work Phone: [facility] 06-10-2022 11:00-0500 Body weight 105.87 kg Jose Bryant MD Work Phone: [facility] 06-10-2022 11:00-0500 Diastolic blood pressure 87 mm[Hg] Jose Bryant MD Work Phone: [facility] 06-10-2022 11:00-0500 Heart rate 73 /min Jose Bryant MD Work Phone: [facility] 06-10-2022 11:00-0500 Respiratory rate 16 /min Jose Bryant MD Work Phone: [facility] 06-10-2022 11:00-0500 SaO2% (BldA) [Mass fraction] 98 % Jose Bryant MD Work Phone: [facility] 06-10-2022 11:00-0500 Systolic blood pressure 152 mm[Hg] Jose Bryant MD Work Phone: [facility] 02-17-2022 11:36-0400 Body temperature 98.4 [degF] Quique Mojica MD [facility] [employer] 02-17-2022 11:36-0400 Diastolic blood pressure 56 mm[Hg] Quique Mojica MD Work Phone: [facility] 02-17-2022 11:36-0400 Heart rate 96 /min Quique Mojica MD [facility] 02-17-2022 11:36-0400 Respiratory rate 16 /min Quique Mojica MD [facility] Phone[facility] [employer] 02-17-2022 11:36-0400 SaO2% (BldA) [Mass fraction] 93 % Quique Mojica MD [facility] [employer] 02-17-2022 11:36-0400 Systolic blood pressure 117 mm[Hg] Quique Mojica MD Work Phone: [facility] 02-16-2022 10:32-0400 Body height 162.6 cm Quique Mojica MD Work Phone: [facility] [employer] [employer] 02-16-2022 10:32-0400 Body mass index (BMI) [Ratio] 40.34 kg/m2 Quique Mojica MD Work Phone: [facility] [employer] 02-16-2022 10:32-0400 Body weight 106.59 kg Quique Mojica MD Work Phone: [facility] [employer] 01-26-2022 07:54-0400 Body height 162.6 cm Sta 1 [facility] [employer] 01-26-2022 07:54-0400 Body mass index (BMI) [Ratio] 40.34 kg/m2 Sta 1 [facility] [employer] 01-26-2022 07:54-0400 Body temperature 97.5 [degF] Sta 1 [facility] [employer] 01-26-2022 07:54-0400 Body weight 106.59 kg Sta 1 [facility] [employer] 01-26-2022 07:54-0400 Diastolic blood pressure 84 mm[Hg] Sta 1 [facility] [employer] 01-26-2022 07:54-0400 Heart rate 85 /min Sta 1 [facility] [employer] 01-26-2022 07:54-0400 Respiratory rate 16 /min Sta 1 [facility] 01-26-2022 07:54-0400 SaO2% (BldA) [Mass fraction] 98 % Sta 1 [facility] [employer] 01-26-2022 07:54-0400 Systolic blood pressure 133 mm[Hg] Sta 1 [facility] [employer] 11-20-2021 09:35-0400 Body temperature 97.3 [degF] Dallas Lombardo MD Work Phone: [facility] 11-20-2021 09:35-0400 Body weight 104.33 kg Dallas Lombardo MD Work Phone: [facility] 11-20-2021 09:35-0400 Diastolic blood pressure 78 mm[Hg] Dallas Lombardo MD Work Phone: [facility] 11-20-2021 09:35-0400 Heart rate 95 /min Dallas Lombardo MD Work Phone: [facility] 11-20-2021 09:35-0400 Systolic blood pressure 120 mm[Hg] Dallas Lombardo MD Work Phone: [facility] Encounters Encounter Date Encounter Type Care Provider Facility Start: 10-14-2023 Telephone encounter Jenni martinez MD Work Phone: Infectious Disease Comment on above: Patient Question Start: 10-09-2023 End: 10-09-2023 ambulatory ENMANUEL FERREIRA [facility] Start: 10-04-2023 End: 10-04-2023 ambulatory SALIMA CALDERON Not Available Start: 08-30-2023 End: 08-30-2023 ambulatory RICARDO Boucher Fely Facility:[facility] Start: 08-30-2023 End: 08-30-2023 Patient encounter procedure Ernie Ayers MD Work Phone: Allergy Comment on above: Penicillin allergy Start: 08-24-2023 End: 08-24-2023 ambulatory DALIA Wray [facility] Start: 08-24-2023 End: 08-24-2023 Office outpatient visit 25 minutes Samantha Boucher keshia [employer] 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: [facility] Comment on above: Disorder of sacrum ( Primary Dx) Start: 08-23-2023 End: 08-23-2023 ambulatory RICARDO HOOPER Facility:[facility] Start: 08-23-2023 End: 08-23-2023 Office outpatient visit 15 minutes Jose Bryant MD Work Phone: Hematology/Oncology Comment on above: Iron deficiency anem ia secondary to inadequate dietary iron intake (Primary Dx) Start: 08-16-2023 End: 08-16-2023 ambulatory RICARDO HOOPER Facility:[facility] Start: 08-09-2023 End: 08-09-2023 ambulatory SALIMA CALDERON Not Available Start: 08-05-2023 End: 08-05-2023 ambulatory JENNI CARDENAS Facility:[facility] Start: 07-21-2023 End: 07-21-2023 ambulatory RICARDO Sander Fely Facility:[facility] Start: 07-21-2023 End: 07-21-2023 Patient encounter procedure Jenni Cardenas MD Work Phone: Infectious Disease Comment on above: Generalized abdomina l pain (Primary Dx); Recurrent UTI; Penicillin allergy Start: 07-12-2023 End: 07-12-2023 ambulatory Jose Bryant MD Work Phone: [facility] Start: 07-12-2023 Chart abstracting Jr. Salima Pedro DO Work Phone: [facility] Start: 07-12-2023 Patient encounter procedure Jose Bryant MD Work Phone: Hematology/Oncology Comment on above: Next appointment Start: 07-12-2023 Telephone encounter Patricia Jabier Murrell Hematology/Oncology Comment on above: Appointment Start: 07-12-2023 End: 07-12-2023 Office outpatient visit 25 minutes Jr. Salima Pedro DO Work Phone: [facility] Comment on above: Primary osteoarthrit is of left hip (Primary Dx); Limb weakness; Numbness; Paresthesia; Pain in extremity, unspecified extremity Start: 07-08-2023 End: 07-08-2023 ambulatory RICARDO HOOPER Facility:[facility] Start: 07-05-2023 End: 07-05-2023 ambulatory RICARDO HOOPER Facility:[facility] Start: 06-24-2023 End: 06-24-2023 ambulatory RICARDO HOOPER Facility:[facility] Start: 06-21-2023 End: 06-22-2023 ambulatory DALIA VIGIL Not Available Start: 04-01-2023 ambulatory Jose reagan MD Work Phone: Hematology/Oncology Comment on above: Cat Scan Start: 03-31-2023 End: 03-31-2023 ambulatory RICARDO HOOPER Facility:[facility] Start: 02-22-2023 End: 02-22-2023 ambulatory Ricardo Hooper Facility:[facility] Start: 02-22-2023 End: 02-22-2023 ambulatory MD Ricardo Hooper Work Phone: [facility] Work Phone: Start: 02-22-2023 End: 02-22-2023 Patient encounter procedure MD Ricardo Hooper Work Phone: [facility] Work Phone: Start: 01-11-2023 End: 01-12-2023 Evaluation and management of inpatient [facility] Start: 12-21-2022 End: 12-26-2022 ambulatory [facility] Start: 10-10-2022 End: 10-10-2022 Emergency department patient visit Rocael Wayne [facility] Start: 10-10-2022 End: 10-10-2022 Emergency department patient visit Rocael Wayne [facility] Start: 10-08-2022 End: 10-08-2022 ambulatory LEOBARDO SAAVEDRA . Facility: Start: 10-07-2022 End: 10-07-2022 Office outpatient visit 15 minutes Jose Bryant MD Work Phone: Hematology/Oncology Comment on above: Iron deficiency anem ia secondary to inadequate dietary iron intake (Primary Dx); Thrombocytopenia (HCC); Lung nodules Start: 08-29-2022 End: 08-30-2022 ambulatory VERNELL FARRELL Facility:[facility] Start: 08-05-2022 End: 08-06-[address] RICARDO HOOPER . Facility: Start: 07-28-2022 ambulatory VIN KIM . Facility:[facility] [...] . Facili ty:[facility] Start: 02-18-2022 Telephone encounter Patricia Murrell Hematology/Oncology Comment on above: Appointment; Results Start: 02-16-2022 End: 02-17-2022 ambulatory [facility] Start: 02-16-2022 End: 02-17-2022 Subsequent hospital visit by physician Quique Mojica MD Work Phone: [facility] Comment on above: Lumbar stenosis with neurogenic claudication (Primary Dx) Start: 01-26-2022 End: 01-31-2022 ambulatory [facility] Start: 01-26-2022 End: 01-30-2022 Subsequent hospital visit by physician Brandon Carter 1 [facility] PRE-ADMIT TESTING Start: 12-29-2021 End: 12-29-2021 Patient encounter procedure MD Ricardo Hooper Work Phone: [facility] [address] Start: 12-26-2021 End: [...] Date Procedure Procedure Detail Performing Clinician Start: 08-30-2023 ALLERGEN SKIN TEST-I NHALENT 40 Ernie Ayers MD Work Phone: Start: 08-30-2023 ALLERGEN SKIN TEST-PENICILLIN Ernie Ayers MD Work Phone: Start: 08-30-2023 Ingestion challenge test initial 120 minutes Ernie Ayers MD Work Phone: Start: 02-22-2023 End: 02-22-2023 Screening mammography of [...] Jose Bryant MD Work Phone: Appendectomy Rocael Tone Carpal tunnel syndro me (disorder) Rocael Wayne History of left oophorectomy Rocael Wayne Laparoscopy Rocael Wayne left ankle surgery x3 Rocael Wayne left elbow surgery Rocael Arteaga is Loop electrosurgical excision procedure of cervix Rocael Wayne Right oophorectomy Rocael Arteaga is right shoulder surgery Rocael Wayne Tonsillectomy Rocael Wayne Plan of Treatment Date Care Activity Detail Author Start: 07-29-2030 DTaP,Tdap and Td Vaccines (2 - Td or Tdap) DTaP,Tdap and Td Vaccines (2 - Td or Tdap) [facility] Start: 07-29-2030 DTaP/Tdap/Td vaccine (2 - Td or Tdap) DTaP/Tdap/Td vaccine (2 - Td or Tdap) [facility] Start: 07-29-2030 Urine microalbumin profile [facility] Start: 08-15-2026 Diabetes Screening Diabetes Screening [facility] Start: 07-05-2026 Diabetes Screening Diabetes Screening [facility] Start: 03-31-2026 Diabetes Screening Diabetes Screening [facility] Start: 10-07-2025 DIABETES SCREEN DIABETES SCREEN [facility] Start: 06-10-2025 DIABETES SCREEN DIABETES SCREEN [facility] Start: 04-09-2025 DIABETES SCREEN DIABETES SCREEN [facility] Start: 12-18-2024 Lipid 1996 panel - Serum or Plasma Lipid Screening [facility] Start: 12-18-2024 Lipid panel Lipid Screening [facility] Start: 12-18-2024 LIPID SCREEN LIPID SCREEN [facility] Start: 08-23-2024 Adult BMI Screening Adult BMI Screening [facility] Start: 08-23-2024 [facility] Start: 07-10-2024 DIABETES SCREEN DIABETES SCREEN [facility] Start: 02-23-2024 End: 08-22-2024 CBC W Auto Differential panel - Blood CBC + DIFF Lab Routine Iron deficiency anemia secondary to inadequate dietary iron intake Expected: 02/23/2024 (Approximate), Expires: 08/22/2024 [facility] Work Phone: Comment on above: Expected: 02/23/2024 (Approximate), Expi res: 08/22/2024 Start: 02-23-2024 End: 08-22-2024 Cobalamin (Vitamin B12) [Mass/volume] in Serum or Plasma VITAMIN B12 BLOOD Lab Routine Iron deficiency anemia secondary to inadequate dietary iron intake Expected: 02/23/2024 (Approximate), Expires: 08/22/2024 [facility] Work Phone: Comment on above: Expected: 02/23/2024 (Approximate), Expi res: 08/22/2024 Start: 02-23-2024 End: 08-22-2024 Comprehensive metabolic 2000 panel - Serum or Plasma COMP METABOLIC PANEL Lab Routine Iron deficiency anemia secondary to inadequate dietary iron intake Expected: 02/23/2024 (Approximate), Expires: 08/22/2024 [facility] Work Phone: Comment on above: Expected: 02/23/2024 (Approximate), Expi res: 08/22/2024 Start: 02-23-2024 End: 08-22-2024 Ferritin [Mass/volume] in Serum or Plasma FERRITIN BLD Lab Routine Iron deficiency anemia secondary to inadequate dietary iron intake Expected: 02/23/2024 (Approximate), Expires: 08/22/2024 [facility] Work Phone: Comment on above: Expected: 02/23/2024 (Approximate), Expi res: 08/22/2024 Start: 02-23-2024 End: 08-22-2024 Folate [Mass/volume] in Serum or Plasma FOLATE SERUM Lab Routine Iron deficiency anemia secondary to inadequate dietary iron intake Expected: 02/23/2024 (Approximate), Expires: 08/22/2024 [facility] Work Phone: Comment on above: Expected: 02/23/2024 (Approximate), Expi res: 08/22/2024 Start: 02-23-2024 End: 08-22-2024 Iron and Iron binding capacity panel - Serum or Plasma IRON + TIBC Lab Routine Iron deficiency anemia secondary to inadequate dietary iron intake Expected: 02/23/2024 (Approximate), Expires: 08/22/2024 [facility] Work Phone: Comment on above: Expected: 02/23/2024 (Approximate), Expi res: 08/22/2024 Start: 02-23-2024 Screening for malignant neoplasm of breast Mammogram [facility] Start: 02-21-2024 End: 02-21-2024 Follow-up encounter 02/21/2024 9:15 AM EDT Visit (SP) Office Hematology/Oncology [address] [place] [address] Jose Bryant MD [address] [place] [address] 6 month follow up with lab same day Hematology/Oncology Comment on above: 6 month follow up with lab same day Start: 02-21-2024 End: 02-21-2024 Patient encounter procedure 02/21/2024 9:00 AM EDT Office Visit [facility] [address] [place] [address] [place] [address] 6 month follow up with lab same day [facility] Comment on above: 6 month follow up with lab same day Start: 01-21-2024 End: 01-21-2024 Patient encounter procedure 01/21/2024 10:00 AM EDT Office Visit Gastroenterology [address] [place] [address] Jose Alberto Beach Jr., DO [address] [place] [address] Stomach Pain Gastroenterology Comment on above: Stomach Pain Start: 11-15-2023 End: 11-15-2023 Patient encounter procedure 11/15/2023 9:45 AM EDT Office Visit [facility] [address] [place] [address] Enmanuel Burton, DO [address] [place] [address] [facility] Start: 10-26-2023 End: 10-26-2023 Patient encounter procedure 10/26/2023 8:15 AM EDT Office Visit [facility] [address] [facility] [id number] Dalia Israel PA [address] [place] [address] [facility] Start: 10-08-2023 End: 10-08-2023 Admission to same day surgery center 10/08/2023 7:25 AM EDT - 10/08/2023 7:31 AM EDT Surgery [facility] [address] [place] [id number] Enmanuel Ferreira MD [address] [place], [place] [id number] INJECTION BLOCK SACROILIAC JOINT [61933 (CPT )] [facility] Comment on above: INJECTION BLOCK SACROILIAC JOINT [97127 (CPT )] Start: 10-08-2023 End: 10-08-2023 Inject si joint arthrgrphy&/anes/ster oid w/marcio INJECTION BLOCK SACROILIAC JOINT Disorder of sacrum 10/08/2023 7:25 AM EDT [facility] Start: 10-08-2023 Subsequent hospital visit by physician 10/08/2023 7:25 AM EDT Hospital Encounter [facility] [address] [place] [phone] Enmanuel Ferreira MD [address] [place], [place] [id number] [facility] Start: 08-09-2023 End: 08-09-2023 Patient encounter procedure 08/09/2023 8:45 AM EDT Office Visit [facility] [address] [place] [address] Jr. Salima Pedro, DO [address] [place] [address] [facility] Start: 07-31-2023 Covid-19 Vaccine () Covid-19 Vaccine () [facility] Start: 07-30-2023 End: 10-29-2023 CBC W Auto Differential panel - Blood CBC + DIFF Lab Routine Thrombocytopenia (HCC) Lymphocytosis Mediastinal lymphadenopathy Expected: 07/30/2023, Expires: 10/29/2023 [facility] Work Phone: Comment on above: Expected: 07/30/2023, Expires: 4 Start: 07-30-2023 End: 10-29-2023 Comprehensive metabolic 2000 panel - Serum or Plasma COMP METABOLIC PANEL Lab Routine Thrombocytopenia (HCC) Lymphocytosis Mediastinal lymphadenopathy Expected: 07/30/2023, Expires: 10/29/2023 [facility] Work Phone: Comment on above: Expected: 07/30/2023, Expires: 4 Start: 07-30-2023 End: 10-29-2023 FLOW CYTOMETRY FOR LEUKEMIA/LYMPHOMA (FCLL) FLOW CYTOMETRY FOR LEUKEMIA/LYMPHOMA (FCLL) Lab Routine Thrombocytopenia (HCC) Lymphocytosis Mediastinal lymphadenopathy Expected: 07/30/2023, Expires: 10/29/2023 [facility] Work Phone: Comment on above: Expected: 07/30/2023, Expires: 4 Start: 07-30-2023 End: 10-29-2023 Lactate dehydrogenase [Enzymatic activity/volume] in Serum or Plasma LD LACTATE DEHYDRO Lab Routine Thrombocytopenia (HCC) Lymphocytosis Mediastinal lymphadenopathy Expected: 07/30/2023, Expires: 10/29/2023 [facility] Work Phone: Comment on above: Expected: 07/30/2023, Expires: Start: 07-12-2023 End: 07-12-2024 EMG AND NERVE CONDUCTION STUDY EMG AND NERVE CONDUCTION STUDY Neurology Routine Limb weakness Numbness Paresthesia Pain in extremity, unspecified extremity Expected: 07/12/2023 (Approximate), Expires: 07/12/2024 [facility] Work Phone: Comment on above: Expected: 07/12/2023 (Approximate), Expi res: 07/12/2024 Start: 07-12-2023 End: 07-12-2024 RF Guidance for injection of Joint FL guided injection hip left Imaging Routine Primary osteoarthritis of left hip Expected: 07/12/2023 (Approximate), Expires: 07/12/2024 [facility] Comment on above: Expected: 07/12/2023 (Approximate), Expi res: 07/12/2024 Start: 07-12-2023 End: 07-12-2023 Patient encounter procedure 07/12/2023 8:45 AM EST Office Visit [facility] [address] [place] [address] Jr. Salima Pedro, DO [address] [facility] [address] [place] [address] [facility] Start: 07-05-2023 End: 04-04-2024 CBC W Auto Differential panel - Blood CBC + DIFF Lab Routine Thrombocytopenia (HCC) Iron deficiency anemia secondary to inadequate dietary iron intake Expected: 07/05/2023 (Approximate), Expires: 04/04/2024 [facility] Work Phone: Comment on above: Expected: 07/05/2023 (Approximate), Expi res: 04/04/2024 Start: 07-05-2023 End: 04-04-2024 Cobalamin (Vitamin B12) [Mass/volume] in Serum or Plasma VITAMIN B12 BLOOD Lab Routine Thrombocytopenia (HCC) Iron deficiency anemia secondary to inadequate dietary iron intake Expected: 07/05/2023 (Approximate), Expires: 04/04/2024 [facility] Work Phone: Comment on above: Expected: 07/05/2023 (Approximate), Expi res: 04/04/2024 Start: 07-05-2023 End: 04-04-2024 Comprehensive metabolic 2000 panel - Serum or Plasma COMP METABOLIC PANEL Lab Routine Thrombocytopenia (HCC) Iron deficiency anemia secondary to inadequate dietary iron intake Expected: 07/05/2023 (Approximate), Expires: 04/04/2024 [facility] Work Phone: Comment on above: Expected: 07/05/2023 (Approximate), Expi res: 04/04/2024 Start: 07-05-2023 End: 04-04-2024 Ferritin [Mass/volume] in Serum or Plasma FERRITIN BLD Lab Routine Thrombocytopenia (HCC) Iron deficiency anemia secondary to inadequate dietary iron intake Expected: 07/05/2023 (Approximate), Expires: 04/04/2024 [facility] Work Phone: Comment on above: Expected: 07/05/2023 (Approximate), Expi res: 04/04/2024 Start: 07-05-2023 End: 04-04-2024 Folate [Mass/volume] in Serum or Plasma FOLATE SERUM Lab Routine Thrombocytopenia (HCC) Iron deficiency anemia secondary to inadequate dietary iron intake Expected: 07/05/2023 (Approximate), Expires: 04/04/2024 [facility] Work Phone: Comment on above: Expected: 07/05/2023 (Approximate), Expi res: 04/04/2024 Start: 07-05-2023 End: 04-04-2024 Iron and Iron binding capacity panel - Serum or Plasma IRON + TIBC Lab Routine Thrombocytopenia (HCC) Iron deficiency anemia secondary to inadequate dietary iron intake Expected: 07/05/2023 (Approximate), Expires: 04/04/2024 [facility] Work Phone: Comment on above: Expected: 07/05/2023 (Approximate), Expi res: 04/04/2024 Start: 05-31-2023 Advance Directive Discussion Advance Directive Discussion [facility] Start: 05-31-2023 Behavioral Health Screening Behavioral Health Screening [facility] Start: 05-31-2023 Depression Assessment Depression Assessment [facility] Start: 04-09-2023 End: 10-08-2023 CBC W Auto Differential panel - Blood CBC + DIFF Lab Routine Thrombocytopenia (HCC) Lung nodules Iron deficiency anemia secondary to inadequate dietary iron intake Expected: 04/09/2023 (Approximate), Expires: 10/08/2023 [facility] Work Phone: Comment on above: Expected: 04/09/2023 (Approximate), Expi res: 10/08/2023 Start: 04-09-2023 End: 10-08-2023 Cobalamin (Vitamin B12) [Mass/volume] in Serum or Plasma VITAMIN B12 BLOOD Lab Routine Thrombocytopenia (HCC) Lung nodules Iron deficiency anemia secondary to inadequate dietary iron intake Expected: 04/09/2023 (Approximate), Expires: 10/08/2023 [facility] Work Phone: Comment on above: Expected: 04/09/2023 (Approximate), Expi res: 10/08/2023 Start: 04-09-2023 End: 10-08-2023 Comprehensive metabolic 2000 panel - Serum or Plasma COMP METABOLIC PANEL Lab Routine Thrombocytopenia (HCC) Lung nodules Iron deficiency anemia secondary to inadequate dietary iron intake Expected: 04/09/2023 (Approximate), Expires: 10/08/2023 [facility] Work Phone: Comment on above: Expected: 04/09/2023 (Approximate), Expi res: 10/08/2023 Start: 04-09-2023 End: 11-06-2023 CT CHEST W IVCON CT CHEST W IVCON Radiology Routine Lung nodules Expected: 04/09/2023 (Approximate), Expires: 11/06/2023 [facility] Work Phone: Comment on above: Expected: 04/09/2023 (Approximate), Expi res: 11/06/2023 Start: 04-09-2023 End: 10-08-2023 Ferritin [Mass/volume] in Serum or Plasma FERRITIN BLD Lab Routine Thrombocytopenia (HCC) Lung nodules Iron deficiency anemia secondary to inadequate dietary iron intake Expected: 04/09/2023 (Approximate), Expires: 10/08/2023 [facility] Work Phone: Comment on above: Expected: 04/09/2023 (Approximate), Expi res: 10/08/2023 Start: 04-09-2023 End: 10-08-2023 Folate [Mass/volume] in Serum or Plasma FOLATE SERUM Lab Routine Thrombocytopenia (HCC) Lung nodules Iron deficiency anemia secondary to inadequate dietary iron intake Expected: 04/09/2023 (Approximate), Expires: 10/08/2023 [facility] Work Phone: Comment on above: Expected: 04/09/2023 (Approximate), Expi res: 10/08/2023 Start: 04-09-2023 End: 10-08-2023 Iron and Iron binding capacity panel - Serum or Plasma IRON + TIBC Lab Routine Thrombocytopenia (HCC) Lung nodules Iron deficiency anemia secondary to inadequate dietary iron intake Expected: 04/09/2023 (Approximate), Expires: 10/08/2023 [facility] Work Phone: Comment on above: Expected: 04/09/2023 (Approximate), Expi res: 10/08/2023 Start: 03-15-2023 Pneumococcal 65+ years Vaccine (2 - PPSV23 or PCV20) Pneumococcal 65+ years Vaccine (2 - PPSV23 or PCV20) [facility] Start: 03-15-2023 Pneumococcal Vaccine: 65+ (3 - PPSV23 or PCV20) Pneumococcal Vaccine: 65+ (3 - PPSV23 or PCV20) [facility] Start: 03-15-2023 Pneumococcal Vaccine: 65+ (3 of 3 - PPSV23 or PCV20) Pneumococcal Vaccine: 65+ (3 of 3 - PPSV23 or PCV20) [facility] Start: 03-15-2023 Pneumococcal Vaccine: 65+ Years (3 - PPSV23 or PCV20) Pneumococcal Vaccine: 65+ Years (3 - PPSV23 or PCV20) [facility] Start: 03-15-2023 PNEUMOCOCCAL: 65+ (#3) PNEUMOCOCCAL: 65+ (#3) [facility] Start: 03-15-2023 PNEUMOCOCCAL: 65+ (2 - PPSV23 or PCV20) PNEUMOCOCCAL: 65+ (2 - PPSV23 or PCV20) [facility] Start: 01-29-2023 Covid-19 Vaccine ( season) Covid-19 Vaccine ( season) [facility] Start: 01-29-2023 Influenza vaccination Influenza Vaccine (#1) [facility] Start: 01-21-2023 Screening for malignant neoplasm of breast Mammogram Screening [facility] Start: 05-31-2022 ADVANCE DIRECTIVE DISCUSSION ADVANCE DIRECTIVE DISCUSSION [facility] Start: 05-31-2022 DEPRESSION ASSESSMENT DEPRESSION ASSESSMENT [facility] Start: 02-16-2022 End: 02-16-2022 Admission to same day surgery center 02/16/2022 Surgery IP Unit Quique Mojica MD [address] [place] [address] L3-4 LUMBAR LAMINECTOMY POSTERIOR ABOVE PREVIOUS L 4-5 FUSION [facility] Comment on above: L3-4 LUMBAR LAMINECTOMY POSTERIOR ABOVE PREVIOUS L 4-5 FUSION Start: 02-16-2022 End: 02-16-2022 Laminectomy w/o ffd > 2 vert seg lumbar LUMBAR LAMINECTOMY POSTERIOR Spinal stenosis of lumbar region, unspecified whether neurogenic claudication present 02/16/2022 12:15 PM EDT [facility] Start: 02-16-2022 Subsequent hospital visit by physician 02/16/2022 Hospital Encounter IP Unit Quique Mojica MD [address] [place] [address] [facility] Start: 02-12-2022 Annual Wellness Visit (AWV) Annual Wellness Visit (AWV) [facility] Start: 01-29-2022 Influenza vaccination [facility] Start: 01-21-2022 Screening mammography of bilateral breasts MM screening mammo BI w/CAD [facility] Start: 01-21-2022 End: 01-21-2022 Patient encounter procedure Departed [facility] Start: 01-14-2022 Adult depression screening assessment DEPRESSION SCREENING [facility] Start: 12-09-2021 COVID-19 VACCINE (5 - Booster for Pfizer series) COVID-19 VACCINE (5 - Booster for Pfizer series) [facility] Start: 2021 ADVANCE DIRECTIVE DISCUSSION ADVANCE DIRECTIVE DISCUSSION [facility] Start: 2021 BONE DENSITY BONE DENSITY [facility] Start: 2021 Bone Density Screening Bone Density Screening [facility] Start: 2021 Fall Risk Screening Fall Risk Screening [facility] Start: 2021 Screening for osteoporosis Bone Density Screening [facility] Start: 05-31-2021 DEPRESSION ASSESSMENT DEPRESSION ASSESSMENT [facility] Start: 2016 RSV Vaccine (1 - 1-dose 60+ series) RSV Vaccine (1 - 1-dose 60+ series) [facility] Start: 2006 Screening for malignant neoplasm of breast Breast cancer screen [facility] [employer] Start: 2001 COLOGUARD (FIT-DNA) COLOGUARD (FIT-DNA) [facility] Start: 2001 Colonoscopy COLONOSCOPY [facility] Start: 2001 COLORECTAL CANCER SCREENING COLORECTAL CANCER SCREENING [facility] Start: [address] COLONOGRAPHY [facility] Start: 2001 FECAL OCCULT BLOOD FECAL OCCULT BLOOD [facility] Start: 2001 Screening for malignant neoplasm of colon [employer] Start: 2001 SIGMOIDOSCOPY SIGMOIDOSCOPY [facility] Start: 1996 Lipid panel Lipids [facility] [employer] [facility] Start: 1996 Mammography [facility] Start: 1996 Screening for malignant neoplasm of breast Mammogram Screening [facility] Start: 09-19-1991 Diabetes screen Diabetes screen [employer] [facility] Start: 1974 Adult BMI Follow Up Plan Adult BMI Follow Up Plan [facility] Start: 1974 Hepatitis C screening Hepatitis C screen [employer] [facility] [employer] Start: 1974 HIV SCREENING HIV SCREENING [facility] Start: 09-19-1971 HIV screening HIV screen [employer] [facility] Start: 1968 Depression Screen Depression Screen ANGEL [employer] [facility] Start: 1968 Depression Screening Depression Screening [facility] Start: 1956 Medicare Annual Wellness Visit Medicare Annual Wellness Visit [facility] Start: 1956 Screening for malignant neoplasm of colon [facility] End: 02-19-2022 Basic metabolic 2000 panel - Serum or Plasma Basic Metabolic Panel Lab Routine Daily for 3 Days starting 02/17/2022 until 02/19/2022, 1 completed [employer] Phone: Comment on above: Daily for 3 Days starting 02/17/2022 unt il 02/19/2022, 1 completed End: 02-19-2022 CBC W Auto Differential panel - Blood CBC with Auto Differential Lab Routine Daily for 3 Days starting 02/17/2022 until 02/19/2022, 1 completed [employer] Phone: Comment on above: Daily for 3 Days starting 02/17/2022 unt il 02/19/2022, 1 completed End: 08-19-2024 CT Abdomen and Pelvis WO contrast CT ABD/PEL WO IVCON Radiology Routine Generalized abdominal pain 1 Occurrences starting 07/21/2023 until 08/19/2024 [facility] Work Phone: Comment on above: 1 Occurrences starting 07/21/2023 until 08/19/2024 End: 02-16-2022 Intermittent pulse oximetry Pulse Oximetry Spot Check Respiratory Care Routine One Time for 1 Occurrences starting 02/16/2022 until 02/16/2022 [employer] Phone: Comment on above: One Time for 1 Occurrences starting 01/29 until 02/16/2022 Oxygen therapy [Minimum Data Set] Initiate Oxygen Therapy Protocol Respiratory Care Routine As Needed until discontinued starting 02/16/2022 [employer] Phone: Comment on above: As Needed until discontinued starting Spirometry panel Incentive mark metry Respiratory Care Routine Every 2hr while awake until discontinued starting 02/16/2022 [employer] Phone: Comment on above: Every 2hr while awake until discontinued starting 02/16/2022 [facility] Immunizations Immunization Date Immunization Notes Care Provider [facility] 04-26-2022 Seasonal, quadrivale nt, recombinant, injectable influenza vaccine, preservative free Jose Bryant MD Work Phone: [facility] 04-26-2022 influenza virus vacc ine, unspecified formulation Jose Bryant MD Work Phone: [facility] 03-28-2021 influenza, injectabl e, quadrivalent, preservative free Dallas Lombardo MD Work Phone: [facility] 11-26-2020 zoster vaccine recombinant Dallas Lombardo MD Work Phone: [facility] 09-10-2020 COVID-19 mRNALowell (Pfizer) MD Ricardo Hooper Work Phone: [facility] 08-19-2020 COVID-19 mRNALowell (Pfizer) MD Ricardo Hooper Work Phone: [facility] 07-29-2020 hepatitis A vaccine, adult dosage Dallas Lombardo MD Work Phone: [facility] 07-29-2020 tetanus toxoid, redu perri diphtheria toxoid, and acellular pertussis vaccine, adsorbed Dallas Lombardo MD Work Phone: [facility] 07-12-2020 typhoid capsular polysaccharide vaccine Dallas Lombardo MD Work Phone: [facility] 01-30-2020 influenza, injectabl e, quadrivalent, preservative free Dallas oLmbardo MD Work Phone: [facility] 01-30-2020 zoster vaccine recombinant Dallas Lombardo MD Work Phone: [facility] 02-27-2019 influenza, injectabl e, quadrivalent, preservative free Dallas Lombardo MD Work Phone: [facility] 01-27-2019 influenza, injectabl e, quadrivalent, preservative free Dallas Lombardo MD Work Phone: [facility] 03-21-2018 influenza, injectabl e, quadrivalent, contains preservative Dallas Lombardo MD Work Phone: [facility] 03-21-2018 influenza, seasonal, injectable Dallas Lombardo MD Work Phone: [facility] 03-15-2018 influenza, injectabl e, quadrivalent, preservative free Dallas Lombardo MD Work Phone: [facility] 03-15-2018 pneumococcal polysaccharide vaccine, 23 valent Dallas Lombardo MD Work Phone: [facility] 02-28-2018 pneumococcal conjuga te vaccine, 13 valent Dallas Lombardo MD Work Phone: [facility] 01-29-2018 influenza virus vacc ine, unspecified formulation Dallas Lombardo MD Work Phone: [facility] 06-18-2017 influenza, high dose seasonal, preservative-free Dallas Lombardo MD Work Phone: [facility] 06-18-2017 pneumococcal polysaccharide vaccine, 23 valent Dallas Lombardo MD Work Phone: [facility] 04-20-2014 influenza, seasonal, injectable, preservative free Dallas Lombardo MD Work Phone: [facility] Payers Date Payer Category Payer Self-pay [id number] 2022 Medicaid [id number] 2022 Medicaid MEDICAID [facility] EDICAID [id number] 2022-[facility] [phone] [address] [place] [address] [id number] 2018 Medicare HUMANA MEDICARE HUMANA MEDICARE PPO [id number] 2018-Present [phone] [facility] [address] [place] [address] PPO [id number] 2017 Medicare [id number]. [id number] 1959 Private Health Insurance [id number] 1959 Unknown [id number] 1956 Unknown [id number] 2.16.840.1.875085.3.579.2. 593 1956 Unknown [id number] 2.16.840.1.755227.3.579.2. 593 1956 Unknown [id number] 2.16.840.1.253338.3.579.2. 593 1956 Unknown [id number] 2.16.840.1.194750.3.579.2. 593 1956 Unknown [id number] 2.16.840.1.122016.3.579.2. 593 1956 Unknown [id number] 2.16.840.1.903484.3.579.2. 593 1956 Unknown [id number] 2.16.840.1.446365.3.579.2. 593 1956 Unknown [id number] 2.16.840.1.561786.3.579.2. 593 1956 Unknown [id number] 2.16.840.1.507562.3.579.2. 593 1956 Unknown [id number] 2.16.840.1.095749.3.579.2. 593 1956 Unknown [id number] 2.16.840.1.426962.3.579.2. 593 1956 Unknown [id number] 2.16.840.1.814109.3.579.2. 593 1956 Unknown [id number] 2.16.840.1.058721.3.579.2. 593 1956 Unknown [id number] 2.16.840.1.984006.3.579.2. 593 1956 Unknown [id number] 2.16.840.1.319267.3.579.2. 593 1956 Unknown [id number] 2.16.840.1.259982.3.579.2. 593 1956 Unknown [id number] 2.16.840.1.062506.3.579.2. 593 1956 Unknown [id number] 2.16.840.1.126887.3.579.2. 727 1956 Unknown [id number] 2.16.840.1.823298.3.579.2. 177 1956 Unknown [id number] 2.16.840.1.076421.3.579.2. 177 1956 Unknown [id number] 2.16.840.1.664330.3.579.2. 177 1956 Unknown [id number] 2.16.840.1.127677.3.579.2. 177 1956 Unknown [id number] 2.16.840.1.712406.3.579.2. 1259 1956 Unknown [id number] 2.16.840.1.925498.3.579.2. 1259 1956 Unknown [id number] 2.16.840.1.732839.3.579.2. 1259 1956 Unknown [id number] 2.16.840.1.574705.3.579.2. 1259 1956 Unknown [id number] 2.16.840.1.212198.3.579.2. 1259 1956 Unknown [id number] 2.16.840.1.460688.3.579.2. 1286 1956 Unknown [id number] 2.16.840.1.560560.3.579.2. 1286 Medicare [employer] [facility] [id number] Unknown [id number] 2.16.840.1.227015.3.579.2. 531 Social History Date Type Detail Facility Start: 01-23-2015 End: 08-30-2023 Tobacco smoking status NHIS Never smoked tobacco [facility] Start: 01-23-2015 End: 08-30-2023 Tobacco use and exposure Smokeless tobacco non-user [facility] Start: 07-10-2021 End: 08-30-2023 Alcohol intake Current drinker of alcohol (finding) [facility] Start: 06-17-2015 History SDOH Alcohol Comment rare [facility] Start: 1955 Sex Assigned At Not on file [facility] Start: 10-28-2021 End: 04-09-2022 Exposure to SARS-CoV-2 (event) Not sure [facility] Start: 1955 Sex Assigned At Female [facility] Start: 01-26-2022 End: 07-12-2023 Alcohol intake Ex-drinker (finding) [employer] Phone: Start: 09-15-2021 History SDOH Alcohol Frequency 1 [employer] Phone: Start: 06-10-2022 End: 06-13-2022 Sex Assigned At Female [facility] Start: 06-10-2022 End: 06-13-2022 History of Social function [facility] Adult Depression Screening Assessment 0 [facility] How often to you hav e [...] 10-04-2022 Sexual orientation Heterosexual (finding) [facility] Start: 06-05-2017 Alcohol Comment once a month [facility] Procedure Code Equipment Code Equipment Origin al Text Equipment Identifier [employer] 4.75 Use [id number] - [id number] - [id number] Start: 08-15-2019 Hip Dep Pf Spcl Mtl Construct - [id number] Start: 06-05-2017 Hd Fem 32mm 32 +5mm Std Articul/Dutch Ball 32 +5 Br - [id number] - [id number] Start: 06-05-2017 Comment on above: Description: +5 04/30 4 taper articul/dutch femoral head 32 mm Scr Canc Hip Cnn Gription 20mm Pinn Can Bone Screw [id number] - [id number] - [id number] Start: 06-05-2017 Comment on above: Description: 6.5 x 2 0 mm Functional Status Date Assessment Result Facility 10-10-2022 Functional Status N/A [facility] Clinical Notes 11-05-2021 to 10-14-2023 Telephone Encounter - Jenni Cardenas MD - 10/14/2023 9:46 AM EDTTelephone Encounter - Jenni Cardenas MD - 10/14/2023 9:46 AM EDTPatient InstructionsMaurerErnie MD - 08/30/2023 2:20 PM EDT Note Date & Type Note Facility 10-14-2023 Telephone encounter Note Spoke to Ms Ferrera. Ok to cancel next appointment. She has been doing well on methanamine and following with urology. So far no recurrence of her UTI with the current treatment/preventative regimen. She is following with ortho who are planning for hip replacement for which she is working toward weight loss prior to the procedure. I did discuss the importance of judicious use of antibiotics and that treatment of asymptomatic bacteruria is not typically indicated prior to orthopedic procedures. Refer to my last note for further details. At this time she can feel free to call my should any questions arise regarding antibiotic recommendations (surgical or otherwise) or concerns for recurrent infection. Jenni Cardenas MD, PhD Staff, Infectious Disease [facility] Office [phone] [facility] Work Phone: 10-14-2023 Miscellaneous Notes Spoke to Ms Ferrera. Ok to cancel next appointment. She has been doing well on methanamine and following with urology. So far no recurrence of her UTI with the current treatment/preventative regimen. She is following with ortho who are planning for hip replacement for which she is working toward weight loss prior to the procedure. I did discuss the importance of judicious use of antibiotics and that treatment of asymptomatic bacteruria is not typically indicated prior to orthopedic procedures. Refer to my last note for further details. At this time she can feel free to call my should any questions arise regarding antibiotic recommendations (surgical or otherwise) or concerns for recurrent infection. Jenni Cardenas MD, PhD Staff, Infectious Disease [facility] Office [phone] documented in this encounter [facility] 08-30-2023 Note HNO ID: [id number] Author: ERNIE AYERS MD Service: ? Author Type: Physician Type: Progress Notes Filed: 09/13/2023 12:35 Note Text: INHALANT 40 PERCUTANEOUS TESTING/ Mean Wheal AND Flare Diameter (mm) Patient has been identified by name and date of : Yes . Skin test applied by : Laura Louie RN and Judy Arias RN Interpreted By: Laura Louie RN and Judy Arias RN for Ernie Ayers M.D. * Clinical significant reactions are regarded as a wheal diameter greater than or equal to 3 mm with a flare diameter greater or equal to 6mm. ALLERGENS Time applied: 1414 Time read: 1429 Negative Control: 50%Glycerin/50%Cocas P: W = 0 mm F = 0 mm Cat Hair 10,000 BAU/ml P: W = 0 mm F = 0 mm Dog Epithelial 1:20 P: W = 0 mm F = 0 mm Cockroach Mix 1:20 P: W = 5 mm F = 8 mm Mite Df 10,000 AU/ml P: W = 0 mm F = 0 mm Mite Dp 10,000AU/ml P: W = 0 mm F = 0 mm Alternaria Alternata 1:20 P: W = 0 mm F = 0 mm Aspergillus Fumigatus 1:20 P: W = 10 mm F = 12 mm Cladosporium sphearospermum 1:20 P: W = 5 mm F = 10 mm Epicoccum Nigrum 1:10 P: W = 0 mm F = 0 mm Fusarium Solani 1:40 P: W = 0 mm F = 0 mm Bipolaris Sorokiniana 1:20 P: W = 0 mm F = 0 mm Penicillium Mix 1:20 P: W = 0 mm F = 0 mm Carlos, White 1:20 P: W = 0 mm F = 0 mm Beech, Syrian 1:20 P: W = 0 mm F = 0 mm Birch Mix 1:20 P: W = 0 mm F = 0 mm Maple Mix 1:20 P: W = 0 mm F = 0 mm [place] ,Eastern 1:20 P: W = 0 mm F = 0 mm [place], Shagbark 1:20 P: W = 0 mm F = 0 mm Republic Tree, Red 1:20 P: W = 0 mm F = 0 mm [place], Red 1:20 P: W = 0 mm F = 0 mm [place], Syrian/Eastern 1:20 P: W = 4 mm F = 6 mm Rainelle Pollen, Black 1:20 P: W = 7 mm F = 15 mm [place], Black 1:20 P: W = 0 mm F = 0 mm Bermuda Grass 10,000 BAU/ml P : W = 3 mm F = 6 mm [place], Blue/Aminata 100,000 BAU/ml P: W = 0 mm F = 0 mm Fescue, Protem 100,000 BAU/ml P: W = 0 mm F = 0 mm Hugo Grass 1:20 P: W = 0 mm F = 0 mm Orchard Grass 100,000 BAU/ml P: W = 7 mm F = 18 mm Perennial [place], 100,000 BAU/ml P: W = 0 mm F = 0 mm Varinder 100,000 BAU/ml P: W = 0 mm F = 0 mm Cocklebur 1:20 P: W = 3 mm F = 6 mm [place], sheep 1:20 P: W = 4 mm F = 8 mm Plantain, [place] Islander 1:20 P: W = 5 mm F = 12 mm Lambs Quarters 1:20 P: W = 0 mm F = 0 mm Trejo Elder, Burweed 1:20 P: W = 4 mm F = 10 mm Mugwort, Common 1:20 P: W = 0 mm F = 0 mm Pigweed, Rough 1:20 P: W = 5 mm F = 10 mm Ragweed, Mix 1:20 P: W = 0 mm F = 0 mm HISTAMINE, positive control(Histamine base 6mg/ml) P: W = 5 mm F = 35 mm Patient instructed regarding inhalant aeroallergen avoidance measures;allergy calendar reviewed. Written materials provided to patient. Patient verbalized understanding of information given. I ANTIBIOTIC PERCUTANEOUS AND INTRADERMAL SKIN TESTING/ Mean Wheal AND Flare Diameter (mm) Patient has been identified by name and date of : Yes . Skin test applied by : Laura Louie RN and Judy Arias RN Interpreted By: Ernie Ayers M.D. * Clinical significant reactions are regarded as a wheal diameter greater than or equal to 3 mm with a flare diameter greater or equal to 6mm. Time Prick test applied: 1414 Time Intradermal test applied:1459 Time Prick test read: 1429 Time Intradermal test read: 1514 ALLERGENS Negative Control (50% glycerin/50% cocas for prick and HSA for intradermal) P: W = 0 mm F = 0 mm ID:W = 0 mm F = 0 mm PENICILLIN GK 10,000 UNITS/ML [facility] 5345-6645-18 Lot #[id number] Exp 02/2024 Reconsit. Exp 1502 P: W = 0 mm F = 0 mm ID: W = 0 mm F = 0 mm PREPEN -(benzylpenicilloyl polylysine) full strength Allerquest [facility] 17849-920-95 Lot# [id number] Exp 09/22 Reconsit Exp 1502 P: W = 0 mm F = 0mm ID: W = 0 mm F = 0 mm AMPICILLIN SODIUM 12.5mg/ml Sandoz [facility] 5617-0985-98 Lot [id number] Exp 01/2025 Reconsit Exp 1356 P: W = 0 mm F = 0mm ID: W = 0 mm F = 0 mm HISTAMINE- positive control (Histamine base 6mg/ml)for Prick and 0.1 mg/ml for intradermal P: W = 5 mm F = 35 mm ID:W = 15 mm F = 35 mm Oral Challenge to Amoxicillin 08/30/2023 Informed consent obtained. Explanation given in regards to procedure for oral challenge Risk and benefits reviewed per Dr Ayers. Patient verbalized understanding to information provided. 1520 Vitals prior to oral challenge B/P: 137/81, pulse: 85, resp : 16, and pulse ox: 99% on RA. 1523 Gave Amoxicillin suspension 25mg p.o per Dr. Ayers. Lot no. [id number], Exp. 09/10/2023, TIME:1430, [facility]: 5408-9386-73 Electric Melt Operator: Hikma [id number] Patient c/o left eye itching- no redness noted. 1550 Patient c/o itchy face and stomach. Dr. Ayers notified. 1551 Andria at bedside to assess- B/P: 140/79, pulse: 81, resp: 18, pulse ox: 99% on RA. 1553 Patient c/o itchy arms 1554 Zytec 10mg PO given per Dr. Ayers verbal order. 1555 Patient c/o right eye puffiness and itching. 1556 Pepcid 20mg PO and Prednisone 40mg Po given per Dr. Ayers verbal order. 1618 Dr. Ayers at bedside- new rash appearing on neck. Will continue to monitor. 1652 Patie (more content not included)... [facility] 08-30-2023 Instructions Ernie Ayers MD - 08/30/2023 4:05 PM EDT Use these two sprays together for best effect. - Continue Flonase 2 sprays in each nostril daily. This is an intranasal steroid, and needs consistent use to work. - Start Astelin 2 sprays in each nostril twice daily. This is an intranasal antihistamine, and can work on demand. Now also available over the counter. Can have a bad taste. - You may continue an oral antihistamine (Zyrtec/cetirizine, Dina/fexofenadine, or Xyzal/levocetirizine) daily. Avoid the antihistamines with added decongestant - these aren't worth it. When using nasal sprays, gently blow nose prior to use. Shake medication bottle well Insert tip of nasal spray into nostril. Tilt outward toward same-side ear lobe (away from the septum). Sniff gently as you spray the medication. Stop for any bloody nose or discharge Please refer to the other teaching materials provided today. I recommend discussing your facial pain with neurology. Facial pain alone would not indicate a sinus infection. You being very itchy after a small dose of amoxicillin, despite negative skin tests. I recommend you continue to avoid penicillin, and we can test again in a year if needed. For macrobid - there is no skin testing, we would be challenging you. Need to be off antihistamine for 5 days, and in good health. If there are alternatives, these would be recommended. documented in this encounter [facility] 08-30-2023 Note HNO ID: [id number] Author: ERNIE AYERS MD Service: ? Author Type: Physician Type: Progress Notes Filed: 09/13/2023 12:35 Note Text: [facility] ALLERGY AND IMMUNOLOGY CONSULT Patient Name: Jessica Ferrera PRIMARY CARE PHYSICIAN: Ricardo Hooper MD REASON FOR CONSULT: PCN allergy REQUESTING PHYSICIAN: Jenni Cardenas MD My final recommendations will be communicated to the requesting health care provider by way of the shared medical record for internal providers or letter via the [place] Postal Service for external providers. CHIEF COMPLAINT: Patient presents with: New Patient HISTORY OF PRESENT ILLNESS: Jessica Ferrera is a 67 year old female with a history of PACHECO, HTN, diverticulosis, and frequent UTI who presents with hx of adverse reaction to penicillin and other medications, and rhinitis: Penicillins: - Early , took a combination of penicillin and tylenol 3. She had had dental work done, and took the medicine, developed SOB, and went to the hospital. Only remembers being observed, ?benadryl. Was not a life threatening situation, but was trouble breathing. Does not recall rash, or angioedema. Observed, and discharged from ER. Avoiding ever since. She has had tylenol 3 since. No recent AH. Nitrofurantoin: 2021: Treated for UTI and was given macrobid, but sx persisted and was switched to multiple medications, and when she returned to macrobid developed hives. Went to ER, and was started on an antihistamine. UTI affecting her 3 months. Ongoing question of UTI vs diverticulosis pain. Following with urology / ID. Cipro: nauseated Clindamycin: nauseated Doxycyline: nauseated Levofloxacin: joint pain Chronic rhinitis - Symptoms began 2018. - Symptoms include: sinus pressure. +runny nose, nasal congestion. - Symptoms are worse during spring AND fall season. - Triggers include going outside and symptoms within 5 minutes of going outside. - Has tried the following medications: flonase PRn. Symptom control on these medications was partially controlled. - Has had prior testing (20 years ago - doesn't recall results). Has not been on immunotherapy. - Has had 4-5 episodes of sinusitis requiring antibiotics in last 12 months. - Patient does not have decreased/absent sense of smell, or known nasal polyps. - Co-morbid conditions including atopic conditions include: noen - There is a family history of the following atopic conditions: denies. - Has seen pulmonary, and evaluation looked good, plan to touch base before Fall again. Current medications include: - Flonase PRN Having facial pain, down left side of her face. Saw ENT - and was told nothing wrong. Environmental history: Pets: cat(s)x4 Mite Proof Covers: No Bedrm Carpet [id number]: Yes A/C: Central Hobbies: +baking, traveling, gardening Work: retired Hx of rhinitis: as above Hx of asthma: denies, has been evaluated by pulmonary OSH Hx of eczema: denies Hx of drug allergy: as above Hx of food allergies: denies Hx of systemic rxn to stinging insects: denies Hx of recurrent infections: as above, UTI PAST MEDICAL HISTORY Diagnosis Date Blood clotting disorder (HCC) Lupus Anticoagulant- last (2) were negative Endometriosis Fibromyalgia Frequent UTI Iron deficiency anemia secondary to inadequate dietary iron intake 04/10/2022 Raynaud disease Thrombocytopenia (HCC) ACTIVE PROBLEM LIST Enthesopathy of Ankle and Tarsus Tibialis Tendinitis Thrombocytopenia (Hcc) Mediastinal Lymphadenopathy Pulmonary Nodules Idiopathic Cytopenia of Undetermined Significance (Icus) Iron Deficiency Anemia Secondary to Inadequate Dietary Iron Intake PAST SURGICAL HISTORY Procedure Laterality Date ANKLE SURGERY HX Left x 3 APPENDECTOMY APPENDECTOMY HX ARTHRP KNE CONDYLEANDPLATU MEDIALANDLAT COMPARTMENTS Left and Right CARPAL TUNNEL bilateral CYSTO.PANENDO 06/05/2021 CYSTOURETHROSCOPY 06/20/15 Cystoscopy; Dr. Lombardo; [place] SURGERY HX Left HYSTERECTOMY HX 1995 left overy and hysterectomy. ROTATOR CUFF REPAIR 2013,2014 Left x 2 SHOULDER SURGERY HX Right TONSILLECTOMY HX TONSILLECTOMY HX FAMILY HISTORY Problem Relation Age of Onset Hyperlipidemia Mother Hypertension Father age 60 Cancer Father prostate and leukemia other (heart attack) Father Hypertension Brother Hypertension Brother Cancer Brother brain CA age 45 other (multiple myeloma) Son Social History Tobacco Use Smoking status: Never Smokeless tobacco: Never Vaping Use Vaping Use: Never used Substance Use Topics Alcohol use: Yes Comment: rare Drug use: No ALLERGIES: ALLERGIES Allergen Reactions Ciprofloxacin Intolerance Clindamycin Vomiting Doxycycline Vomiting Levaquin [Levofloxa* Myalgia Monistat 1 [Tiocona* Other: See Comments Burning of skin Nitrofurantoin Stanislaus* GI Upset, Hives, Itching, Rash (more content not included)... [facility] 08-30-2023 History of Present illness Narrative INHALANT 40 PERCUTANEOUS TESTING/ Mean Wheal & Flare Diameter (mm) Patient has been identified by name and date of : Yes . Skin test applied by : Laura Louie RN and Judy Arias RN Interpreted By: Laura Louie RN and Judy Arias RN for Ernie Ayers M.D. * Clinical significant reactions are regarded as a wheal diameter greater than or equal to 3 mm with a flare diameter greater or equal to 6mm. ALLERGENS Time applied: 1414 Time read: 1429 Negative Control: 50%Glycerin/50%Cocas P: W = 0 mm F = 0 mm Cat Hair 10,000 BAU/ml P: W = 0 mm F = 0 mm Dog Epithelial 1:20 P: W = 0 mm F = 0 mm Cockroach Mix 1:20 P: W = 5 mm F = 8 mm Mite Df 10,000 AU/ml P: W = 0 mm F = 0 mm Mite Dp 10,000AU/ml P: W = 0 mm F = 0 mm Alternaria Alternata 1:20 P: W = 0 mm F = 0 mm Aspergillus Fumigatus 1:20 P: W = 10 mm F = 12 mm Cladosporium sphearospermum 1:20 P: W = 5 mm F = 10 mm Epicoccum Nigrum 1:10 P: W = 0 mm F = 0 mm Fusarium Solani 1:40 P: W = 0 mm F = 0 mm Bipolaris Sorokiniana 1:20 P: W = 0 mm F = 0 mm Penicillium Mix 1:20 P: W = 0 mm F = 0 mm Carlos, White 1:20 P: W = 0 mm F = 0 mm Beech, Syrian 1:20 P: W = 0 mm F = 0 mm Birch Mix 1:20 P: W = 0 mm F = 0 mm Maple Mix 1:20 P: W = 0 mm F = 0 mm [place] ,Eastern 1:20 P: W = 0 mm F = 0 mm [place], Shagbark 1:20 P: W = 0 mm F = 0 mm Republic Tree, Red 1:20 P: W = 0 mm F = 0 mm [place], Red 1:20 P: W = 0 mm F = 0 mm [place], Syrian/Eastern 1:20 P: W = 4 mm F = 6 mm Rainelle Pollen, Black 1:20 P: W = 7 mm F = 15 mm [place], Black 1:20 P: W = 0 mm F = 0 mm Bermuda Grass 10,000 BAU/ml P : W = 3 mm F = 6 mm [place], Blue/October 100,000 BAU/ml P: W = 0 mm F = 0 mm Fescue, Protem 100,000 BAU/ml P: W = 0 mm F = 0 mm Hugo Grass 1:20 P: W = 0 mm F = 0 mm Orchard Grass 100,000 BAU/ml P: W = 7 mm F = 18 mm Perennial [place], 100,000 BAU/ml P: W = 0 mm F = 0 mm Varinder 100,000 BAU/ml P: W = 0 mm F = 0 mm Cocklebur 1:20 P: W = 3 mm F = 6 mm [place], sheep 1:20 P: W = 4 mm F = 8 mm Plantain, [place] Islander 1:20 P: W = 5 mm F = 12 mm Lambs Quarters 1:20 P: W = 0 mm F = 0 mm Trejo Elder, Burweed 1:20 P: W = 4 mm F = 10 mm Mugwort, Common 1:20 P: W = 0 mm F = 0 mm Pigweed, Rough 1:20 P: W = 5 mm F = 10 mm Ragweed, Mix 1:20 P: W = 0 mm F = 0 mm HISTAMINE, positive control(Histamine base 6mg/ml) P: W = 5 mm F = 35 mm Patient instructed regarding inhalant aeroallergen avoidance measures;allergy calendar reviewed. Written materials provided to patient. Patient verbalized understanding of information given. I ANTIBIOTIC PERCUTANEOUS AND INTRADERMAL SKIN TESTING/ Mean Wheal & Flare Diameter (mm) Patient has been identified by name and date of : Yes . Skin test applied by : Laura Louie RN and Judy Arias RN Interpreted By: Ernie Ayers M.D. * Clinical significant reactions are regarded as a wheal diameter greater than or equal to 3 mm with a flare diameter greater or equal to 6mm. Time Prick test applied: 1414 Time Intradermal test applied:1459 Time Prick test read: 1429 Time Intradermal test read: 1514 ALLERGENS Negative Control (50% glycerin/50% cocas for prick and HSA for intradermal) P: W = 0 mm F = 0 mm ID:W = 0 mm F = 0 mm PENICILLIN GK 10,000 UNITS/ML [facility] [id number] Lot #[id number] Exp 02/2024 Reconsit. Exp 1502 P: W = 0 mm F = 0 mm ID: W = 0 mm F = 0 mm PREPEN -(benzylpenicilloyl polylysine) full strength Allerquest [facility] 58609-302-68 Lot# [id number] Exp 09/22 Reconsit Exp 1502 P: W = 0 mm F = 0mm ID: W = 0 mm F = 0 mm AMPICILLIN SODIUM 12.5mg/ml Sandoz [facility] [id number] Lot [id number] Exp 01/2025 Reconsit Exp 135 P: W = 0 mm F = 0mm ID: W = 0 mm F = 0 mm HISTAMINE- positive control (Histamine base 6mg/ml)for Prick and 0.1 mg/ml for intradermal P: W = 5 mm F = 35 mm ID:W = 15 mm F = 35 mm Oral Challenge to Amoxicillin 08/30/2023 Informed consent obtained. Explanation given in regards to procedure for oral challenge Risk and benefits reviewed per Dr Ayers. Patient verbalized understanding to information provided. 1520 Vitals prior to oral challenge B/P: 137/81, pulse: 85, resp : 16, and pulse ox: 99% on RA. 1523 Gave Amoxicillin suspension 25mg p.o per Dr. Ayers. Lot no. [id number], Exp. 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 1550 Patient c/o itchy face and stomach. Dr. Ayers notified. 1551 Andria at bedside to assess- B/P: 140/79, pulse: 81, resp: 18, pulse ox: 99% on RA. 1553 Patient c/o itchy arms 1554 Zytec 10mg PO given per Dr. Ayers verbal order. 1555 Patient c/o right eye puffiness and itching. 1556 Pepcid 20mg PO and Prednisone 40mg Po given per Dr. Ayers verbal order. 1618 Dr. Ayers at bedside- new rash appearing on neck. Will continue to monitor. 1652 Patient observed for 60 minutes without any adverse symptoms or reactions noted, B/P: 149/82, pulse: 84, resp: 16, and pulse ox: 100% on RA. 1655 Patient without complaints, discharged per Dr. Ayers. Images from the original note were not included. [facility] ALLERGY & IMMUNOLOGY CONSULT Patient Name: Jessica Ferrera PRIMARY CARE PHYSICIAN: Ricardo Hooper MD REASON FOR CONSULT: N allergy REQUESTING PHYSICIAN: Jenni Cardenas MD My final recommendations will be communicated to the requesting health care provider by way of the shared medical record for internal providers or letter via the [place] [employer] for external providers. CHIEF COMPLAINT: Patient presents with: New Patient HISTORY OF PRESENT ILLNESS: Jessica Ferrera is a 67 year old female with a history of PACHECO, HTN, diverticulosis, and frequent UTI who presents with hx of adverse reaction to penicillin and other medications, and rhinitis: Penicillins: - Early , took a combination of penicillin and tylenol 3. She had had dental work done, and took the medicine, developed SOB, and went to the hospital. Only remembers being observed, ?benadryl. Was not a life threatening situation, but was trouble breathing. Does not recall rash, or angioedema. Observed, and discharged from ER. Avoiding ever since. She has had tylenol 3 since. No recent AH. Nitrofurantoin: 2021: Treated for UTI and was given macrobid, but sx persisted and was switched to multiple medications, and when she returned to macrobid developed hives. Went to ER, and was started on an antihistamine. UTI affecting her 3 months. Ongoing question of UTI vs diverticulosis pain. Following with urology / ID. Cipro: nauseated Clindamycin: nauseated Doxycyline: nauseated Levofloxacin: joint pain Chronic rhinitis - Symptoms began 2018. - Symptoms include: sinus pressure. +runny nose, nasal congestion. - Symptoms are worse during spring & fall season. - Triggers include going outside and symptoms within 5 minutes of going outside. - Has tried the following medications: flonase PRn. Symptom control on these medications was partially controlled. - Has had prior testing (20 years ago - doesn't recall results). Has not been on immunotherapy. - Has had 4-5 episodes of sinusitis requiring antibiotics in last 12 months. - Patient does not have decreased/absent sense of smell, or known nasal polyps. - Co-morbid conditions including atopic conditions include: noen - There is a family history of the following atopic conditions: denies. - Has seen pulmonary, and evaluation looked good, plan to touch base before Fall again. Current medications include: - Flonase PRN Having facial pain, down left side of her face. Saw ENT - and was told nothing wrong. Environmental history: Pets: cat(s)x4 Mite Proof Covers: No Bedrm Carpet [id number]-Gjcj: Yes A/C: [place] Hobbies: +baking, traveling, gardening Work: retired Hx of rhinitis: as above Hx of asthma: denies, has been evaluated by pulmonary OSH Hx of eczema: denies Hx of drug allergy: as above Hx of food allergies: denies Hx of systemic rxn to stinging insects: denies Hx of recurrent infections: as above, UTI PAST MEDICAL HISTORY Diagnosis Date Blood clotting disorder (HCC) Lupus Anticoagulant- last (2) were negative Endometriosis Fibromyalgia Frequent UTI Iron deficiency anemia secondary to inadequate dietary iron intake 04/10/2022 Raynaud disease Thrombocytopenia (HCC) ACTIVE PROBLEM LIST Enthesopathy of Ankle and Tarsus Tibialis Tendinitis Thrombocytopenia (Hcc) Mediastinal Lymphadenopathy Pulmonary Nodules Idiopathic Cytopenia of Undetermined Significance (Icus) Iron Deficiency Anemia Secondary to Inadequate Dietary Iron Intake PAST SURGICAL HISTORY Procedure Laterality Date ANKLE SURGERY HX Left x 3 APPENDECTOMY APPENDECTOMY HX ARTHRP KNE CONDYLE&PLATU MEDIAL&LAT COMPARTMENTS Left and Right CARPAL TUNNEL bilateral CYSTO.PANENDO 06/05/2021 CYSTOURETHROSCOPY 06/20/15 Cystoscopy; Dr. Lombardo; [place] [facility] EL[facility]OW SURGERY HX Left HYSTERECTOMY HX 1995 left overy and hysterectomy. ROTATOR CUFF REPAIR 2013,2014 Left x 2 SHOULDER SURGERY HX Right TONSILLECTOMY HX TONSILLECTOMY HX FAMILY HISTORY Problem Relation Age of Onset Hyperlipidemia Mother Hypertension Father age 60 Cancer Father prostate and leukemia other (heart attack) Father Hypertension Brother Hypertension Brother Cancer Brother brain CA age 45 other (multiple myeloma) Son Social History Tobacco Use Smoking status: Never Smokeless tobacco: Never Vaping Use Vaping Use: Never used Substance Use Topics Alcohol use: Yes Comment: rare Drug use: No ALLERGIES: ALLERGIES Allergen Reactions Ciprofloxacin Intolerance Clindamycin Vomiting Doxycycline Vomiting Levaquin [Levofloxa* Myalgia Monistat 1 [Tiocona* Other: See Comments Burning of skin Nitrofurantoin Stanislaus* GI Upset, Hives, Itching, Rash, Swelling Penicillins Shortness of Breath Skin Cleanser Combi* Unknown CURRENT OUTPATIENT MEDICATIONS: albuterol HFA (PROVENTIL HFA, VENTOLIN HFA) 90 mcg/actuation inhaler Take 2 Puffs by mouth as needed. Cranberry 500 mg cap ferrous sulfate 325 mg (65 mg iron) tablet Take 1 tablet by mouth once daily. fexofenadine (DINA ALLERGY) 180 mg tablet as needed. fluconazole (DIFLUCAN) 150 mg tablet as needed. acidophilus-pectin, citrus (PROBIOTIC ACIDOPHILUS-PECTIN) 100 million cell-10 mg cap methocarbamol (ROBAXIN) 750 mg tablet Take 1 tablet by mouth every 12 hours. estradiol (ESTRACE) 0.01 % (0.1 mg/gram) vaginal cream Place a pea size amount in the vaginal area three times a week Methenamine Hippurate (HIPREX) 1 gram tablet Take 1 tablet by mouth two times a day with meals. fluticasone propionate (FLONASE NASAL) Use in the nose as needed. baclofen (LIORESAL) 10 mg tablet Take 10 mg by mouth. traZODone (DESYREL) 100 mg tablet Take 100 mg by mouth daily at bedtime. lisinopril (ZESTRIL, PRINIVIL) 20 mg tablet lisinopril 20 mg tablet Take 1 tablet every day by oral route. ibuprofen (MOTRIN) 800 mg tablet Take 800 mg by mouth every 6 hours as needed. esomeprazole (NEXIUM) 40 mg capsule Take 40 mg by mouth. REVIEW OF SYSTEMS: Answers submitted by the patient for this visit: Allergy Review of Symptoms (Submitted on 08/27/2023) Muscle aches: Yes Easy bruising: Yes PHYSICAL EXAM: BP 117/78 Pulse 88 Ht 5' 4.016 (1.63m) Wt 244 lb 11.4 oz (111.0kg) SpO2 100% BMI 41.98 kg/(m^2). General appearance: Well appearing, alert, in no acute distress, well-hydrated, well nourished. HENT: External ears normal, canals clear, TM's normal Eyes: no scleral icterus, PERRLA, EOMS, no conjunctivitis Nose/Sinuses: Nares normal. Septum midline. Mucosa normal. No drainage or sinus tenderness. Oropharynx: Lips, mucosa, and tongue normal, teeth and gums normal, oropharynx normal Respiratory: Lungs clear to auscultation. No wheezing, rhonchi, rales Cardiovascular: RRR without murmur, gallop, or rubs. No ectopy Gastroenterology: normal appearing abdomen on inspection Musculoskeletal: Normal gait, no pedal edema Skin: Negative for lesions, rash, and itching. Psychiatric: Alert and oriented x 3. Calm affect. DATA: Latest Ref Rng & Units 03/31/2023 07/05/2023 08/16/2023 CBC WBC 3.70 - 11.00 k/uL 6.59 7.88 7.38 RBC 3.90 - 5.20 m/uL 4.86 4.76 4.87 Hemoglobin 11.5 - 15.5 g/dL 13.3 12.8 13.6 Hematocrit 36.0 - 46.0 % 42.2 42.0 43.4 MCV 80.0 - 100.0 fL 86.8 88.2 89.1 MCH 26.0 - 34.0 pg 27.4 26.9 27.9 MCHC 30.5 - 36.0 g/dL 31.5 30.5 31.3 RDW-CV 11.5 - 15.0 % 14.0 15.6 15.3 Platelet Count 150 - 400 k/uL 265 247 250 MPV 9.0 - 12.7 fL 10.5 10.3 10.6 Baso% % 3.0 1.1 0.9 Abs Neut (ANC) 1.45 - 7.50 k/uL 1.78 2.54 2.29 Abs Lymph 1.00 - 4.00 k/uL 3.56 4.27 3.85 Abs Stanislaus <0.87 k/uL 0.66 0.96 0.79 Abs Eosin <0.46 k/uL 0.40 <0.03 0.37 Abs Baso <0.11 k/uL 0.20 0.09 0.07 NRBC /100 WBC 0.0 0.0 0.0 Ovalocytes Few Platelet Estimate Adequate IgG Date Value Ref Range Status 02/28/2019 751 717 - 1,411 mg/dL Final IgA Date Value Ref Range Status 02/28/2019 159 78 - 391 mg/dL Final IgM Date Value Ref Range Status 02/28/2019 334 53 - 334 mg/dL Final Allergy Skin Testing I personally reviewed this patient's results and interpreted the results as follows: Aeroallergen testing: +Cr, M, T, G, W Penicillin and ampicillin skin testing was negative Patient consented and agreed to 2 step graded dose oral challenge challenge Step 1: 25mg wait 30 min Patient developed pruritus, and splotchy erythematous patches. Not discrete urticaria. See RN note for details Challenge stopped Step 2: 225mg wait 31 min (did not receive) Assessment/Recommendations: Jessica Ferrera is a 67 year old female with a history of PACHECO, HTN, diverticulosis, and frequent UTI who presents with hx of adverse reaction to penicillin and other medications, and rhinitis: #Allergic Rhinitis (+Cr, M, T, G, W) - Symptoms are not well controlled - Skin testing today +Cr, M, T, G, W - Environmental controls were reviewed for all relevant allergens. - Continue Flonase (fluticasone) 2 sprays to each nostril, with correct technique. - Start Astelin (azelastine) 2 sprays to each nostril 2 times per day as needed, with correct technique. - May use oral antihistamine such as Zyrtec (cetirizine), Dina (fexofenadine) or Xyzal (levocetirizine) PRN - He/she may use OTC eye drops such as ketotifen prn #Adverse reaction to penicillin Skin test negative. However, she developed pruritus, with blotchy erythematous skin/facial flushing after 25mg amoxicillin challenge (step 1). Given this new symptom, the challenge was stopped. She was treated with zyrtec 10mg, pepcid 20mg, and prednisone 40mg. No angioedema. Lungs clear. VSS. No abdominal upset. - Patient should continue to avoid penicillins, beta-lactams, and derivatives including cephalosporins. She may wish to return for repeat evaluation (due to possible contribution of aeroallergen testing). #Adverse reaction Macrobid - Patient should continue to avoid - If medically necessary, can discuss in office based oral challenge. Medical Decision Making: Problems: Moderate: 2+ stable chronic illnesses Data: Unique test(s) ordered: 1 Risk: Moderate: Drug management Medical Decision Making Level: 4 - Moderate RTC 6m or sooner PRN Ernie Ayers MD MPH documented in this encounter [facility] 08-24-2023 History of Present illness Narrative [facility] [address] [place] [address] Patient: Jessica Ferrera Sex: female : 1955 Age: 67 y.o. PCP: RICARDO HOOPER MD 08/24/2023 Jessica Ferrera is here for a(n) follow up for her left hip and SI joint pian. Patient reports she had a steroid injection in her left hip the end of Jul with mild relief. She also reports she had lumbar spine surgery with Dr. Ching since her last visit. Chief Complaint Patient presents with Hip Pain HPI: Right hip injection 07/2023 at [facility] w/ fluro Physical Therapy at [facility] in [place] July 2022 with no help and made pain worse No chiropractor Hip Pain There was no injury mechanism. The pain is present in the left hip (left groin). The quality of the pain is described as aching and stabbing ( like a toothache and some days a stabbing). The pain is at a severity of 7/10. The pain is moderate. The pain has been Worsening since onset. She reports no foreign bodies present. The symptoms are aggravated by movement, palpation and weight bearing. She has tried rest, ice, heat, NSAIDs and acetaminophen (heat/ice with mild relief; Ibuprofen/Tylenol/Biofreeze w/ no relief; HEP, Robaxin w/ mild relief, Previously Zanaflex and Tramadol) for the symptoms. The effect of pain on patient's ADLS: Moderate Impairment. Past Medical History: Diagnosis Date Arthritis Bronchitis Carpal tunnel syndrome Chronic pain disorder Dental disease upper and lower partials Difficult intravenous access Endometriosis Fibromyalgia GERD (gastroesophageal reflux disease) Hypertension Injury of back back surgery august 2016 cyst on spine L4/L5 Low back pain Obesity Raynaud's disease Visual impairment reading glasses Past Surgical History: Procedure Laterality Date ANKLE ARTHROSCOPY W/ OPEN REPAIR three times ANKLE LIGAMENT RECONSTRUCTION Left ARTHROSCOPY REPAIR ROTATOR CUFF SHOULDER Right 08/15/2019 Performed by Salima Pedro Jr., DO at [facility] ARTHROSCOPY SHOULDER Right 08/15/2019 Performed by Salima Pedro Jr., DO at [facility] BACK SURGERY 2017 Cyst removal - done while living in [place] CARPAL TUNNEL RELEASE Bilateral ELBOW ARTHROSCOPY HYSTERECTOMY INJECTION BLOCK SACROILIAC JOINT Left 10/02/2022 Performed by Enmanuel Ferreira MD at [facility] INJECTION BLOCK SACROILIAC JOINT Left 07/31/2022 Performed by Enmanuel Ferreira MD at [facility] INJECTION LARGE JOINT BURSA Right Hip Joint Right 03/19/2017 Performed by Enmanuel Ferreira MD at [facility] JOINT REPLACEMENT Bilateral knees JOINT REPLACEMENT Left hip LAPAROSCOPIC ENDOMETRIOSIS FULGURATION REPLACEMENT TOTAL JOINT HIP Right 06/05/2017 Performed by Jr Salima Pedro DO at [facility] REPLACEMENT TOTAL KNEE BILATERAL ROTATOR CUFF REPAIR Left SPINE SURGERY 08/2016 cyst removed TONSILECTOMY, ADENOIDECTOMY, BILATERAL MYRINGOTOMY AND TUBES Allergies Allergen Reactions Penicillin G Shortness Of Breath Tioconazole Itching Burning of skin Doxycycline Nausea And Vomiting Levaquin [Levofloxacin] Joint pain Macrobid [Nitrofurantoin Monohyd/M-Cryst] Hives Clindamycin Nausea Family History Problem Relation Age of Onset Hypertension Mother Lung disease Father Heart disease Father Coronary artery disease Father Cancer Father leukemia Multiple myeloma Son Diabetes Maternal Grandfather Heart disease Paternal Grandmother Social History Socioeconomic History Marital status: Spouse name: Not on file Number of children: Not on file Years of education: Not on file Highest education level: Not on file Occupational History Not on file Tobacco Use Smoking status: Never Smokeless tobacco: Never Vaping Use Vaping Use: Never used Substance and Sexual Activity Alcohol use: Yes Comment: once a month Drug use: No Sexual activity: Defer Other Topics Concern Not on file Social History Narrative Not on file Social Determinants of Health Financial Resource Strain: Not on file Food Insecurity: No Food Insecurity (08/24/2023) Hunger Screening Food Insecurity - Worry: Never True Food Insecurity - Inability: Never True Transportation Needs: Not on file Physical Activity: Not on file Stress: Not on file Social Connections: Not on file Interpersonal Safety: Not on file Housing Instability: Not on file Review of Systems Constitutional: Negative for chills and fever. HENT: Negative. Eyes: Negative. Respiratory: Negative. Cardiovascular: Negative. Gastrointestinal: Negative. Endocrine: Negative. Genitourinary: Negative. Musculoskeletal: Positive for arthralgias. Skin: Negative. Vital Signs: BP (!) 151/105 (BP Site: Right Arm, BP Postition: Sitting) Pulse 92 Resp 18 Ht 162.6 cm (5' 4 ) Wt 112.5 kg (248 lb) SpO2 99% BMI 42.57 kg/m Physical Exam: GENERAL - Healthy patient that appears stated age. HEENT - Normocephalic / Atraumatic, Extraoccular movements intact, trachea midline, thyroid within normal limits. CV - pulse regular, Warm extremities with appropriate color of nailbeds. RESP - No obvious wheezing, No Shortness of Breath, No overexertion response to exam maneuvers. COORDINATION - remains intact. PSYCH - Alert and Oriented x4, Attentive and appropriate, constitutionally normal, displays normal mood and affect per situation, answered questions appropriately during examination, demonstrated appropriate attention during discussion, demonstrated appropriate cognitive reasoning and understanding of the medical condition by asking appropriate questions regarding the diagnosis and risks/benefits/alternatives of treatment modalities. No obvious deficits in memory, reasoning, or intellect. Lumbar: SKIN - No rashes or bruising in the area of the patient s pain. LYMPH NODES - demonstrate no obvious enlargement. EXTREMITIES - Lower extremities are warm, with minimal edema and palpable pulses. No significant tenderness to palpation noted in the lumbar spine and paraspinal musculature. Mild pain is elicited with flexion, extension, and lateral rotation of the lumbar spine. Range of motion is not diminished with these motions. Facet palpation is negative for significant pain and facet loading maneuvers elicit only mild pain that is not concordant with the patient s normal pain complaints. STRENGTH - noted to be 5 out of 5 all muscle groups bilateral lower extremities including muscles involving hip flexion and abduction, knee flexion and extension, as well as foot dorsiflexion and plantarflexion. No notable atrophy, fasciculations or spasm. SENSORY - No notable sensory deficits in the bilateral lower extremities to touch or pinprick in all dermatomal distributions. Straight Leg Raise is negative bilaterally. Tenderness to palpation is noted over the Left SacroIliac Joint: Fabere sign (Dale's Test) is significantly positive, as is compression and distraction of the sacroiliac joints, which is consistent with some of the patient's normal pain. Tenderness to palpation noted over the Left Hip Joint. Pain is elicited with internal and external rotation of the hip and hip provocative maneuvers are positive and consistent with some of the patient s normal pain. No obvious ligamental laxity is noted. Gait is normal. Assessment/Treatment Plan: Jessica was seen today for hip pain. Diagnoses and all orders for this visit: Disorder of sacrum - Case request operating room: INJECTION BLOCK SACROILIAC JOINT - traMADoL (ULTRAM) 50 mg tablet; Take 1 tablet (50 mg total) by mouth 2 (two) times a day as needed for pain. Other orders - diclofenac (CATAFLAM) 50 mg tablet; Take 1 tablet (50 mg total) by mouth in the morning and 1 tablet (50 mg total) before bedtime. Tramadol 50 mg BID PRN for 7 days and Diclofenac 50 mg BID With Regard to medication management, it is felt that the patient would benefit from the changes mentioned above. This should provide symptomatic pain relief as part of the comprehensive pain management strategy outlined. Risks, Benefits, Side effects, and possible interactions of these medications were reviewed and the medication agreement has been discussed, agreed upon, and signed. The patient understands compliance concerns and the requirement of pill counts and drug screens while taking medications prescribed by this clinic. Left Sacroiliac Joint Injection - under fluoroscopy with the use of contrast dye (unless contraindicated) It is hopeful that the described procedure will provide symptomatic pain relief. It is felt to be medically necessary noting that the patient has tried and failed more conservative modalities of therapy and this is the next most appropriate step. The procedure was described in detail to the patient as well as the potential benefits of pain reduction alongside risks of the procedure and alternatives. Risks were described as including, but not limited to bleeding, infection, nerve damage, spinal cord injury, paralysis, stroke, dural puncture headache, and medication reaction. The patient expressed understanding regarding the risks and benefits and wishes to proceed. Diagnostic SI injections should provide information to confirm that the noted SI Joint arthropathy is the patient s most significant pain generator. If this provides significant but only temporary pain relief, the patient may in the future be a candidate for radiofrequency denervation of the SI joint to provide pain relief for approximately 1 year. Follow up 2 weeks after procedure The medications I have prescribed have been reviewed for medication interactions/contraindications and/or for upcoming procedures: continue current medication regimen without any changes. DISCUSSION: Treatment options discussed with patient and all questions answered to patient's satisfaction. Discussed the rules and regulations surrounding prescription of opioids and compliance at length. Failure to follow the rules and regulation will result in tapering and discontinuation of medications if applicable. The patient has been instructed as to the type of medication prescribed along with directions for use. Potential side effects have been discussed, along with risks and benefits of taking this medication. (S)he was instructed as to what to do if (s)he experiences side effects, including when to discontinue the medication. (S)he was advised to call this office in this event. Also discussed at length safety and security of RX and medications. Due to the high risk nature of this patient's pain medication regimen, frequent office visit refill appointments (every 1-3 months) are medically necessary to monitor for an addiction disorder. Prescribed medication that requires intensive monitoring for toxicity Tramadol. OARRS was reviewed, discussed and appropriate for medications prescribed. The spine model was demonstrated and Xray and MRI was reviewed and used to explain the condition. Chronic conditions not treated during this visit that affected my overall medical decision making: Comorbidity- Obesity The patient does have a comorbid condition of obesity. This will be taken into account in that obesity will contribute to certain pain conditions. It can contribute to pain from degenerative disc disease as well as osteoarthritis of the joints. Many neuropathic symptoms are also amplified due to axial spine loading. Special benefits will also need to be given to procedures. Many procedures are technically more difficult in the light of severe obesity. I will also consider the possibility of undiagnosed obstructive sleep apnea (which often accompanies obesity) when prescribing any narcotic medications. I will weigh the risks and benefits and fully discuss them with the patient for these reasons. OARRS: Reviewed. Scribe Statement: Scribed for and in the presence of AIDE UMANZOR by Elda Cody CNA. Provider Statement: I, AIDE UMANZOR, personally performed the services described in the documentation, as scribed by Elda Cody CNA in my presence, and it is both accurate and complete. Elda Cody CNA 08/24/23 1005 Elda Cody CNA 08/24/23 1010 Elda Cody CNA 08/24/23 1022 AIDE Umanzor 08/24/23 1215 AIDE Umanzor 08/24/23 1442 documented in this encounter [facility] 08-24-2023 Instructions Elda Cody CNA - 08/24/2023 8:45 AM EDT Facet Injection / Medial Branch Block (MBB) / Sacroiliac (SI) Joint Injection A facet injection and sacroiliac joint injection are injections of local anesthetic and steroid into a joint in the spine. A medial branch block is similar, but the medication is placed outside the joint space near the nerve that supplies the joint called the medial branch (steroid may or may not be used). You may require multiple injections depending upon how many joints are involved. How Long Will This Procedure Last? The extent and duration of pain relief may depend on the amount of inflammation and how many areas are involved. Other coexisting factors may be responsible for your pain. If your pain goes away for a short time, but then returns, you may be a candidate for radiofrequency ablation (RFA). Activity Be active. Attempt activities and movements that typically cause pain to see if it feels better while doing them. We will give you a pain diary. Please fill this out as directed by your nurse in pre-op. This will help your doctor determine the effectiveness of the injection, and how to proceed. Bring the pain diary with you to your follow-up appointment. Medications You should not take your pain medications for 4-6 hours before or after the injection in order to properly diagnose if the injection provides adequate relief. Resume your routine medications after your procedure. You may resume blood thinners per your regular schedule after the procedure. If you received sedation: If you received sedation for your procedure, you may feel sleepy or not yourself for several hours today. For the next 24 hours avoid activities that requires alertness or coordination. This includes: Driving or operating heavy machinery Using power tools Consuming alcohol Do not make important or complex decisions or sign legal documents in the next 24 hours. Other Instructions: If you feel severe pain at the injection site with swelling and redness, increased leg weakness, a fever of 101 or higher, headache (or worsening headache), changes in vision or urinary retention: Please call the office at , or have someone take you to the nearest emergency room. Tell the emergency room staff that you recently had a spine injection. A doctor must evaluate you for bleeding and injection complications. If you lose control over bowel, bladder, or legs: Go to the nearest emergency room. documented in this encounter [id number] 08-23-2023 Note HNO ID: [id number] Author: JOSE BRYANT MD Service: ? Author Type: Physician Type: Progress Notes Filed: 08/23/2023 19:19 Note Text: NAME: Jessica Ferrera CLINIC NO.: [id number] DATE OF SERVICE: August 23, 2023 (Andra) Some elements in this clinic note that are critical to medical decision making have been carefully reviewed and included from a prior clinic note dated: July 08, 2023 (Andra) CHIEF COMPLAINT: followup for anemia ASSESSMENT: (D50.8) Iron deficiency anemia secondary to inadequate dietary iron intake (primary encounter diagnosis) Iron deficiency With anemia - improving. Responding to oral iron replacement ferrous sulfate 325 mg either to be taken twice a day or once every other day. Now at Hgb of 12.2 g/dL Pulmonary nodule is stable - since 03/2022 and is going to be following with pulmonary medicine soon. Flow cytometry with no evidence of CLL - (elevated lymphocyte count). PLAN: RTC in 6 months labs, same day to include anemia labs. HPI: CASE HISTORY: Reverse Chronological Order 03/31/2023 [...] 6-7 mm left upper lobe groundglass opacity. A/P: No evidence of splenomegaly or intra-abdominal/pelvic lymphadenopathy. Sigmoid colon diverticulosis without evidence of diverticulitis. Small fat-containing umbilical hernia. 06/16/2018 - normal white blood cells and hemoglobin with a platelet count of 71,000. Restarted trazadone. 06/02/2018 - normal white blood cells and hemoglobin with a platelet count of 77,000. Stopped trazadone. 05/26/2018 - normal white blood cells and hemoglobin with a platelet count of 55,000. Stopped ibuprofen. 05/18/2018 - normal white blood cell count with normal white blood cell differential. Hemoglobin of 12.6 with an MCV of 85.3. Platelets of 69,000. 04/2017 - platelets were 263,000. Updated Visit, August 23, 2023: Doing well. Flow was negative for lymphoproliferative disorder.has been on iron 3 days / week. Anemia improved. Getting her hip replacement and is trying to lose weight to optimize her outcome. Traveling to [facility] soon and then [place]. Updated Visit, July 08, 2023: Jessica returns today. Ferratin is low today but she stopped her oral iron - restarted last week. Platelets are stable. Lymphocyte count is elevated, may need to consider flow cytometry. She had 3 UTIs over 4 months, she is now on an antibiotic daily - seeing an infectious disease doctor this month. March CT shows nodule has resolved - following with pulmonary. Also needs a hip replacement. She and her son are still having difficulties with their relationship. She is going to [facility] and [place] later this year, hopefully after her hip replacement. Updated Visit, October 07, 2022: Leaving for [facility] next week. Has all of her shots [...] her mother. Her back is better after surge (more content not included)... [facility] 08-23-2023 Instructions Jose Bryant MD - 08/23/2023 10:42 AM EDT RTC in 6 months labs, same day to include anemia labs. documented in this encounter [facility] 08-23-2023 History of Present illness Narrative Images from the original note were not included. NAME: Jessica Ferrera CLINIC NO.: [id number] DATE OF SERVICE: August 23, 2023 ([facility]) Some elements in this clinic note that are critical to medical decision making have been carefully reviewed and included from a prior clinic note dated: July 08, 2023 (Andra) CHIEF COMPLAINT: followup for anemia ASSESSMENT: (D50.8) Iron deficiency anemia secondary to inadequate dietary iron intake (primary encounter diagnosis) Iron deficiency With anemia - improving. Responding to oral iron replacement ferrous sulfate 325 mg either to be taken twice a day or once every other day. Now at Hgb of 12.2 g/dL Pulmonary nodule is stable - since 03/2022 and is going to be following with pulmonary medicine soon. Flow cytometry with no evidence of CLL - (elevated lymphocyte count). PLAN: RTC in 6 months labs, same day to include anemia labs. HPI: CASE HISTORY: Reverse Chronological Order 03/31/2023 [...] 6-7 mm left upper lobe groundglass opacity. A/P: No evidence of splenomegaly or intra-abdominal/pelvic lymphadenopathy. Sigmoid colon diverticulosis without evidence of diverticulitis. Small fat-containing umbilical hernia. 06/16/2018 - normal white blood cells and hemoglobin with a platelet count of 71,000. Restarted trazadone. 06/02/2018 - normal white blood cells and hemoglobin with a platelet count of 77,000. Stopped trazadone. 05/26/2018 - normal white blood cells and hemoglobin with a platelet count of 55,000. Stopped ibuprofen. 05/18/2018 - normal white blood cell count with normal white blood cell differential. Hemoglobin of 12.6 with an MCV of 85.3. Platelets of 69,000. 04/2017 - platelets were 263,000. Updated Visit, August 23, 2023: Doing well. Flow was negative for lymphoproliferative disorder.has been on iron 3 days / week. Anemia improved. Getting her hip replacement and is trying to lose weight to optimize her outcome. Traveling to [facility] soon and then [place]. Updated Visit, July 08, 2023: Jessica returns today. Ferratin is low today but she stopped her oral iron - restarted last week. Platelets are stable. Lymphocyte count is elevated, may need to consider flow cytometry. She had 3 UTIs over 4 months, she is now on an antibiotic daily - seeing an infectious disease doctor this month. March CT shows nodule has resolved - following with pulmonary. Also needs a hip replacement. She and her son are still having difficulties with their relationship. She is going to [facility] later this year, hopefully after her hip replacement. Updated Visit, October 07, 2022: Leaving for [facility] next week. Has all of her shots [...] in concerned with recent CT done in [facility] with a left 8 mm [...] years. Platelet counts remain stable and improved. Initial Visit, July 11, 2020: This is a [...] blood disease. Her father had leukemia. A Recently, over last 6 or 7 months, having a lot of pain in her posterior R neck and sent to ENT and US reports only subcentimeter lymph nodes. Can be sharp pain, but often constant ache, worse with pressing on it. She gets pain in her ear. Dr. Burt noted a deviated septum and no obvious cause of her pain per the patient. preop testing for deviated septum noted low platelets. Colonoscopy in [place] 2015 with many polyps, recommended repeat. Colonoscopy in 2017 in [place]. [facility] Clinical Note Previous notes reviewed today [...] with more than 50% of the total nmzb-tu-whjo time of the visit in counseling / coordination of care. Yo Morse MD, MS Plugmanvacuum metalizer operator Hematology and Medical Oncology [id number], [place] [address] Labs and Imaging Reviewed outside records provided prior to this visit and those in [facility]. as diagnosed by Dr. Morse [facility]. No evidence of a paraprotein. [...] is not particularly concerning. Monitoring for now. June 27, 2018 She notes recent severe fatigue. She feels her head swimming, a little dizzy and lightheaded. More tired than normal. She notes some hot flashes. No lumps or bumps reported by the patient. Yearly mammograms reported normal by the patient. Occasional palpitations and chest discomfort. July 13, 2018 Mammogram in december was normal. August 10, 2018 Today discussed results of bm asprate and biopsy Still very little energy. October 05, 2018 Still very fatigued. Not eating as much lately and lost 6lbs. No other specific complaints. NGS panel was negative. Her FLT3 was negative. Has CT chest scheduled in december. January 11, 2019 She has some days with good energy and some with low energy. She is walking daily for 3 months For 3 to 5 miles per day. Had trip to [place] in November for chest pain. March 01, 2019 She feels generally weak, little tired. She is [...] PERFORMANCE STATUS: 0 PHYSICAL EXAMINATION: Vitals: BP 152/92 Pulse 73 Temp (Src) 97.9 (Temporal) Resp 16 Ht 5' 4.016 (1.63m) Wt 247 lb 12.8 oz (112.4kg) SpO2 99% BMI 42.51 kg/(m^2). Body surface area is 2.25 meters squared. Exam limited to gross visualization [...] Other: See Comments Burning of skin Nitrofurantoin [place]* GI Upset, Hives, Itching, Rash, Swelling Penicillins Shortness of Breath Skin Cleanser Combi* Unknown MEDICATIONS: albuterol HFA (PROVENTIL HFA, VENTOLIN HFA) 90 mcg/actuation inhaler Take 2 Puffs by mouth as needed. Cranberry 500 mg cap ferrous sulfate 325 mg (65 mg iron) tablet Take 1 tablet by mouth once daily. fexofenadine (DINA ALLERGY) 180 mg tablet as needed. fluconazole (DIFLUCAN) 150 mg tablet as needed. HYDROcodone-acetaminophen (NORCO) 5-325 mg per tablet 1-2 tablets Orally every 4-6 hours PRN pain for 7 days acidophilus-pectin, citrus (PROBIOTIC ACIDOPHILUS-PECTIN) 100 million cell-10 mg cap mometasone (NASONEX) 50 mcg/actuation nasal spray Daily methocarbamol (ROBAXIN) 750 mg tablet Take 1 tablet by mouth every 12 hours. estradiol (ESTRACE) 0.01 % (0.1 mg/gram) vaginal cream Place a pea size amount in the vaginal area three times a week Methenamine Hippurate (HIPREX) 1 gram tablet Take 1 tablet by mouth two times a day with meals. cefdinir (OMNICEF) 300 mg capsule fluticasone propionate (FLONASE NASAL) Use in the nose as needed. sulfamethoxazole-trimethoprim (BACTRIM,SEPTRA) 400-80 mg per tablet Take by mouth once daily. baclofen (LIORESAL) 10 mg tablet Take 10 mg by mouth. traZODone (DESYREL) 100 mg tablet Take 100 mg by mouth daily at bedtime. lisinopril (ZESTRIL, PRINIVIL) 20 mg tablet lisinopril 20 mg tablet Take 1 tablet every day by oral route. ibuprofen (MOTRIN) 800 mg tablet Take 800 mg by mouth every 6 hours as needed. esomeprazole (NEXIUM) 40 mg capsule Take 40 mg by mouth. LABORATORY VALUES: WBC (k/uL) Date Value 08/16/2023 7.38 RBC (m/uL) Date Value 08/16/2023 4.87 Hemoglobin (g/dL) Date Value 08/16/2023 13.6 Hematocrit (%) Date Value 08/16/2023 43.4 MCV (fL) Date Value 08/16/2023 89.1 MCH (pg) Date Value 08/16/2023 27.9 MCHC (g/dL) Date Value 08/16/2023 31.3 RDW-CV (%) Date Value 08/16/2023 15.3 (H) Platelet Count (k/uL) Date Value 08/16/2023 250 MPV (fL) Date Value 08/16/2023 10.6 Glucose (mg/dL) Date Value 08/16/2023 92 BUN (mg/dL) Date Value 08/16/2023 13 Creatinine (mg/dL) Date Value 08/16/2023 1.02 (H) Sodium (mmol/L) Date Value 08/16/2023 142 Potassium (mmol/L) Date Value 08/16/2023 4.4 Chloride (mmol/L) Date Value 08/16/2023 107 (H) CO2 (mmol/L) Date Value 08/16/2023 22 Protein, Total (g/dL) Date Value 08/16/2023 6.5 Albumin (g/dL) Date Value 08/16/2023 4.2 Calcium, Total (mg/dL) Date Value 08/16/2023 9.9 Alkaline Phosphatase (U/L) Date Value 08/16/2023 79 Bilirubin, Total (mg/dL) Date Value 08/16/2023 0.2 AST (U/L) Date Value 08/16/2023 23 ALT (U/L) Date Value 08/16/2023 27 DIAGNOSIS: (D50.8) Iron deficiency anemia secondary to [...] CYSTOURETHROSCOPY 06/20/15 Cystoscopy; Dr. Lombardo; [place] HX Left HYSTERECTOMY HX [...] which included preparing to see the patient, ibjy-as-esud patient care, completing clinical documentation, performing a medically appropriate examination, counseling and educating the patient/family/caregiver, ordering medications, tests, or procedures, and independently interpreting results (not separately reported). Jose Bryant MD, CPE Hematology and Oncology Services Provided at: [place], [place] CC: Ricardo Hooper MD [address] [place] [address] documented in this encounter [facility] 08-05-2023 Note HNO ID: [id number] Author: GRETCHEN JOSHUA RT(R) Service: ? Author Type: Technologist Type: Progress Notes Filed: 08/05/2023 09:00 Note Text: Radiology Service Progress Note PATIENT NAME: Jessica Ferrera DATE OF SERVICE: August 05, 2023 TIME: 9:00 AM PATIENT IDENTITY VERIFICATION COMPLETED USING TWO (2) IDENTIFIERS: Name and Date of confirmed by patient verbally. FALL SCREENING: Has the patient had 2 falls in the last year or 1 fall with injury or currently using an Ambulatory Assistive Device (Walker, Cane, Wheelchair, Crutches, etc.)? No PATIENT GENDER DATA: Female. status: : No status: NO. PATIENT RELEVANT IMPLANT DATA REVIEWED: Not Applicable PATIENT PRESENTS WITH AN IMPLANTABLE OR ATTACHED APPLICATION ARCHITECT MANAGER: No RADIOLOGY DEPARTMENT: CT; Exam(s) Completed: Abdomen/Pelvis PERIPHERAL IV DATA: Not applicable SIGNED BY: Gretchen Joshua RT(R) August 05, 2023 9:00 AM [facility] 07-21-2023 Note HNO ID: [id number] Author: JENNI CARDENAS MD Service: ? Author Type: Physician Type: Progress Notes Filed: 07/22/2023 16:21 Note Text: .INFECTIOUS DISEASES CONSULT SERVICE DATE: 07/21/2023 Jessica Ferrera is being seen in consultation at the request of Dr. Dallas Lombardo for advice and/or opinion regarding the management of recurrent UTI. Subjective HISTORY HPI: Jessica Ferrera is a 67 year old female h/o endometriosis, fibromyalgia, iron deficiency anemia, raynaud disease, diverticulosis, atrophic vaginitis, renal stones, hx of recurrent UTI who was referred to ID clinic due to her history of recurrent UTI. UTI started years prior in 2017 after a hip surgery but then got worse in 2021 when she went for a back surgery. She states prior to her back surgery presurgical work up included a urine culture that was positive, she states she was treated with multiple antibiotic regimens to clear the urine prior to the surgery. She state that her main UTI symptom is bladder pressure. She notes that this improves with antibiotics, stating that if not on antibiotics the bladder pressure/abdominal pain gets worse. She denies any fevers, chills, dyuria, frequency or urgency when the bladder pain occurs. She describes occasional incontinence. She notes that it tends to localize to the left side of her bladder. She does have chronic arthritis of the left hip for which she says she may need a hip replacement soon. The pain can at times be severe and radiate to her groin but she does not feel there is an association with her abdominal pain. Patient has been following with urology for recurrent UTIs. Notably had UTI in November and March at an outside facility which was treated with IV antibiotics. Of note she has multiple antibiotic allergies listed including ciprofloxacin, clindamycin, doxycycline, Levaquin, Macrobid, penicillin, many of which are documented as an intolerance or vomiting. Last available urine culture was from 12/21/22 which grew an ESBL E coli (S to macrobid, gent, carbs, etc. and R to bactrim, levofloxacin, etc.). Urine culture from 04/27/23, provided by patient, with e col, ESBL. Urological workup included a bladder ultrasound with a PVR of 0 will mL during her last visit with urology. Prior CT scan of the abdomen and pelvis on 04/02/2020 demonstrated 3 mm nonobstructing right renal calculi with no obstructive uropathy. Her last follow-up with urology was on 06/24/2023 during which they recommended estrogen cream for atrophic vaginitis, probiotics, and bowel regimen. She has been on the vaginal estrogen cream for about 2 weeks now and was also started on methenamine, she notes improvement in her symptoms with these interventions so far. REVIEW OF SYSTEMS Otherwise reviewed and negative x 14 except as noted above ALLERGIES Allergen Reactions Ciprofloxacin Intolerance Clindamycin Vomiting Doxycycline Vomiting Levaquin [Levofloxa* Myalgia Monistat 1 [Ti[place]ona* Other: See Comments Burning of skin Nitrofurantoin [place]* GI Upset, Hives, Itching, Rash, Swelling Penicillins Shortness of Breath Skin Cleanser Combi* Unknown PAST MEDICAL HISTORY: PAST MEDICAL HISTORY Diagnosis Date Blood clotting disorder (HCC) Lupus Anticoagulant- last (2) were negative Endometriosis Fibromyalgia Frequent UTI Iron deficiency anemia secondary to inadequate dietary iron intake 04/10/2022 Raynaud disease Thrombocytopenia (HCC) PAST SURGICAL HISTORY: PAST SURGICAL HISTORY Procedure Laterality Date ANKLE SURGERY HX Left x 3 APPENDECTOMY APPENDECTOMY HX ARTHRP KNE CONDYLEANDPLATU MEDIALANDLAT COMPARTMENTS Left and Right CARPAL TUNNEL bilateral CYSTO.PANENDO 06/05/2021 CYSTOURETHROSCOPY 06/20/15 Cystoscopy; Dr. Lombardo; [place] [facility] HX Left HYSTERECTOMY HX 1994 left overy and hysterectomy. ROTATOR CUFF REPAIR 2013,2014 Left x 2 SHOULDER SURGERY HX Right TONSILLECTOMY HX TONSILLECTOMY HX FAMILY HISTORY: FAMILY HISTORY Problem Relation Age of Onset Hyperlipidemia Mother Hypertension Father age 60 Cancer Father prostate and leukemia other (heart attack) Father Hypertension Brother Hypertension Brother Cancer Brother brain CA age 45 other (multiple myeloma) Son SOCIAL HISTORY: Reviewed, no pertinent social history Social History Tobacco Use Smoking status: Never Smokeless tobacco: Never Vaping Use Vaping Use: Never used Substance Use Topics Alcohol use: Yes Comment: rare Drug use: No MEDICATIONS: Current Outpatient Medications Medication Sig estradiol (ESTRACE) 0.01 % (0.1 mg/gram) vaginal cream Place a pea size amount in the vaginal area three times a week Methenamine Hippurate (HIPREX) 1 gram tablet Take 1 tablet by mouth two times a day with meals. cefdinir (OMNICEF) 300 mg capsule fluticasone propionate (FLONASE NASAL) Use in the nose as needed. sulfamethoxazole-tr (more content not included)... [facility] 07-21-2023 History of Present illness Narrative .INFECTIOUS DISEASES CONSULT SERVICE DATE: 07/21/2023 Jessica Ferrera is being seen in consultation at the request of Dr. Dallas Lombardo for advice and/or opinion regarding the management of recurrent UTI. Subjective HISTORY HPI: Jessica Ferrera is a 67 year old female h/o endometriosis, fibromyalgia, iron deficiency anemia, raynaud disease, diverticulosis, atrophic vaginitis, renal stones, hx of recurrent UTI who was referred to ID clinic due to her history of recurrent UTI. UTI started years prior in 2017 after a hip surgery but then got worse in 2021 when she went for a back surgery. She states prior to her back surgery presurgical work up included a urine culture that was positive, she states she was treated with multiple antibiotic regimens to clear the urine prior to the surgery. She state that her main UTI symptom is bladder pressure. She notes that this improves with antibiotics, stating that if not on antibiotics the bladder pressure/abdominal pain gets worse. She denies any fevers, chills, dyuria, frequency or urgency when the bladder pain occurs. She describes occasional incontinence. She notes that it tends to localize to the left side of her bladder. She does have chronic arthritis of the left hip for which she says she may need a hip replacement soon. The pain can at times be severe and radiate to her groin but she does not feel there is an association with her abdominal pain. Patient has been following with urology for recurrent UTIs. Notably had UTI in November and March at an outside facility which was treated with IV antibiotics. Of note she has multiple antibiotic allergies listed including ciprofloxacin, clindamycin, doxycycline, Levaquin, Macrobid, penicillin, many of which are documented as an intolerance or vomiting. Last available urine culture was from 12/21/22 which grew an ESBL E coli (S to macrobid, gent, carbs, etc. and R to bactrim, levofloxacin, etc.). Urine culture from 04/27/23, provided by patient, with e col, ESBL. Urological workup included a bladder ultrasound with a PVR of 0 will mL during her last visit with urology. Prior CT scan of the abdomen and pelvis on 04/02/2020 demonstrated 3 mm nonobstructing right renal calculi with no obstructive uropathy. Her last follow-up with urology was on 06/24/2023 during which they recommended estrogen cream for atrophic vaginitis, probiotics, and bowel regimen. She has been on the vaginal estrogen cream for about 2 weeks now and was also started on methenamine, she notes improvement in her symptoms with these interventions so far. REVIEW OF SYSTEMS Otherwise reviewed and negative x 14 except as noted above ALLERGIES Allergen Reactions Ciprofloxacin Intolerance Clindamycin Vomiting Doxycycline Vomiting Levaquin [Levofloxa* Myalgia Monistat 1 [Tiocona* Other: See Comments Burning of skin Nitrofurantoin [place]* GI Upset, Hives, Itching, Rash, Swelling Penicillins Shortness of Breath Skin Cleanser Combi* Unknown PAST MEDICAL HISTORY: PAST MEDICAL HISTORY Diagnosis Date Blood clotting disorder (HCC) Lupus Anticoagulant- last (2) were negative Endometriosis Fibromyalgia Frequent UTI Iron deficiency anemia secondary to inadequate dietary iron intake 04/10/2022 Raynaud disease Thrombocytopenia (HCC) PAST SURGICAL HISTORY: PAST SURGICAL HISTORY Procedure Laterality Date ANKLE SURGERY HX Left x 3 APPENDECTOMY APPENDECTOMY HX ARTHRP KNE CONDYLE&PLATU MEDIAL&LAT COMPARTMENTS Left and Right CARPAL TUNNEL bilateral CYSTO.PANENDO 06/05/2021 CYSTOURETHROSCOPY 06/20/15 Cystoscopy; Dr. Lombardo; [facility] HX Left HYSTERECTOMY HX 1994 left overy and hysterectomy. ROTATOR CUFF REPAIR 2013,2014 Left x 2 SHOULDER SURGERY HX Right TONSILLECTOMY HX TONSILLECTOMY HX FAMILY HISTORY: FAMILY HISTORY Problem Relation Age of Onset Hyperlipidemia Mother Hypertension Father age 60 Cancer Father prostate and leukemia other (heart attack) Father Hypertension Brother Hypertension Brother Cancer Brother brain CA age 45 other (multiple myeloma) Son SOCIAL HISTORY: Reviewed, no pertinent social history Social History Tobacco Use Smoking status: Never Smokeless tobacco: Never Vaping Use Vaping Use: Never used Substance Use Topics Alcohol use: Yes Comment: rare Drug use: No MEDICATIONS: Current Outpatient Medications Medication Sig estradiol (ESTRACE) 0.01 % (0.1 mg/gram) vaginal cream Place a pea size amount in the vaginal area three times a week Methenamine Hippurate (HIPREX) 1 gram tablet Take 1 tablet by mouth two times a day with meals. cefdinir (OMNICEF) 300 mg capsule fluticasone propionate (FLONASE NASAL) Use in the nose as needed. sulfamethoxazole-trimethoprim (BACTRIM,SEPTRA) 400-80 mg per tablet Take by mouth once daily. baclofen (LIORESAL) 10 mg tablet Take 10 mg by mouth. traZODone (DESYREL) 100 mg tablet Take 100 mg by mouth daily at bedtime. lisinopril (ZESTRIL, PRINIVIL) 20 mg tablet lisinopril 20 mg tablet Take 1 tablet every day by oral route. ibuprofen (MOTRIN) 800 mg tablet Take 800 mg by mouth every 6 hours as needed. esomeprazole (NEXIUM) 40 mg capsule Take 40 mg by mouth. No current facility-administered medications for this visit. Current Anti-Infective Meds (From admission, onward) None Objective Physical Examination: 07/21/23 1345 BP: 150/90 Pulse: 85 Temp: 36.6 C (97.8 F) TempSrc: Oral Weight: 115.2 kg (254 lb) Height: 162.6 cm (5' 4 ) Constitutional: no distress, resting comfortably on room air Skin: no rash Eyes: no scleral icterus Head/Face/Neck: supple neck Respiratory/Chest: clear bilaterally, no crackles or rhonchi, no wheeze Cardiovascular: rrr, no murmur Gastrointestinal: non tender, normal sounds : no flood, no suprapubic pain, no CVA tenderness Musculoskeletal: no joint swelling, no pain on palpation of the left hip, on passive/active manipulation of the left hip no pain, specifically no pain radiating to the abdomen Extremities: no rash, no edema Neurological: no focal deficits, no speech difficulties Lymphatic: negative cervical and supraclavicular LNs Psychological: appropriate behavior DIAGNOSTICS REVIEWED PERTINENT LABS CBC: WBC 7.88 07/05/2023 Hemoglobin 12.8 07/05/2023 Hematocrit 42.0 07/05/2023 Platelet Count 247 07/05/2023 CMP: Sodium 143 07/05/2023 Potassium 4.5 07/05/2023 BUN 12 07/05/2023 Creatinine, Whole Blood (iSTAT) 0.96 07/05/2023 Glucose 103 07/05/2023 Creatinine clearance: Serum creatinine: 0.96 mg/dL 07/05/23 1038 Estimated creatinine clearance: 72 mL/min INFLAMMATORY MARKERS Sed Rate/CRP: WSR 10 05/04/2019 WSR 5 02/28/2019 WSR 10 06/27/2018 WSR 7 01/23/2015 CRP 0.1 01/23/2015 PERTINENT MICROBIOLOGY Reviewed PERTINENT RADIOLOGY REPORTS Reviewed Impression/Recommendations Recurrent UTI, aymptomatic bacteruria --- Patient referred to ID for a history of recurrent UTI and positive urine cultures --- She had developed resistant urinary organisms (ESBL E coli) after multiple rounds of antibiotics prior to her previous back surgery in 2021 in attempts to sterilize the urine --- Urine cultures from November and Mar 2023 with ESBL E coli (as per HPI above) --- Patient notes that her main symptoms is bladder pressure and pain but does not develop any other urinary symptoms in association with the bladder pressure --- Hx of recurrent pain and arthritis of the left hip but the suprapubic/abdominal pain is not reproducible with manipulation of the left hip joint --- Overall unclear that her abdominal discomfort is related to UTI as her symptoms are not overall consistent --- She does have a hx of renal stones and diverticulosis identified on prior imaging as such I will obtain an updated CT abdomen/pelvis to assess for stones or other structural abnormality --- I discuss judicious use moving forward to avoid further resistance and discussed signs/symptoms of UTI --- Further discussed that per IDSA guidelines antibiotics for asymptomatic bacteruria is mainly indicated as prophylaxis prior to urological procedures and that there is no know benefit for screening/treating for asymptomatic bacteruria prior to non-urological procedure Hx of arthritis of the left hip --- Patient notes plan for possible left hip arthroplasty --- Refer to my discussion above regarding treatment of asymptomatic bacteruria Plan --- Non-contrast CT abdomen/pelvis ordered --- Recommend judicious use of antibiotics moving forward, per my discussion above --- Patient to follow up with me in about 4 weeks, after her CT scan, to reassess MEDICAL DECISION MAKING: Records/events reviewed Imaging reviewed/discussed Microbiology reviewed/discussed Labs reviewed/discussed Case recommendations forwarded to Dr Lombardo I spent a total of 60 minutes on the date of the service which included preparing to see the patient, sbqt-hb-[id number] patient care, completing clinical documentation, obtaining and/or reviewing separately obtained history, performing a medically appropriate examination, counseling and educating the patient/family/caregiver, ordering medications, tests, or procedures, communicating with other HCPs (not separately reported), independently interpreting results (not separately reported), and communicating results to the patient/family/caregiver. Please feel free to call or page us with concerns or questions. Thank you for allowing us to partake in the care of your patient. SIGNATURE: Jenni Cardenas MD, PhD PATIENT NAME: Jessica Ferrera DATE: July 21, 2023 TIME: 9:27 AM documented in this encounter [facility] 07-13-2023 Miscellaneous Notes Lab aware and note placed in December lab appt to NOT DRAW flow at that time. Patricia Eugene, RN Just need FLOW and CBC, CMP, [...] and provided # to call for scheduling. Patricia Eugene RN Sure - she can get [...] July if that's possible? Thank you, Jessica Alberto: please advise. If agreeable to move appt sooner, labs will need reordered with date change Patricia documented in this encounter [facility] 07-12-2023 History of Present illness Narrative Images from the original note were not included. HISTORY OF PRESENT ILLNESS: EST PT Jessica Ferrera is an 67 y.o. @ female. (EST PT ; LAST APPT W/ [facility]) RECHECK (L) HIP ; HERE FOR MRI RESULTS 06/30/23 @ [facility] XRAYS, 06/21/23 IN CHANGE / EPIC MRI, 06/30/23 @ [facility] MRI ARTHROGRAM 01/14/21 @ [facility] DEXA 08/06/21 @ [facility] NO MDP / PREDNISONE S/P IA CORTISONE INJ 01/14/21 @ [facility] S/P PHYSICAL THERAPY @ [facility] (LOWER BACK) ; FEB 2023 - MAR 2023 NO PAIN MGMT CONTINUES TO HAVE CONSTANT DISCOMFORT, WORSE WITH ACTIVITY / MOVEMENT. PAIN IS MOSTLY ANTERIOR, IN THE GROIN BUT CAN BE DIFFUSE. NOTES PAINFUL ROM ; SOME WEAKNESS WHEN LIFTING LEG. TAKING LODINE / TRAMADOL / ROBAXIN (PER DR CHING) - DENIES ANY RELIEF. PREVIOUS (R) VERONA [...] Future Standing Expiration Date: 07/12/2024 Scheduling Instructions: [facility] ; Please call patient to schedule, thank you. Rody @[facility] will obtain PA (L) hip IA injection [...] Future Standing Expiration Date: 07/12/2024 Scheduling Instructions: [facility] ; Please call patient to schedule, thank [...] I am acting as scribe for Dr. Pedro/melquiades, PLAN: We have reviewed prior (L) hip [...] also recommending a repeat IA injectio at [facility]. We have discussed her HEP and restrictions and will see her back in 4 weeks to reassess her left hip and discuss studies. Manda Lozada MA documented in this encounter [facility] 07-08-2023 Note HNO ID: [id number] Author: JOSE BRYANT MD Service: ? Author Type: Physician Type: Progress Notes Filed: 07/10/2023 11:47 Note Text: NAME: Jessica Ferrera CLINIC NO.: [id number] DATE OF SERVICE: July 08, 2023 (Andra) Some elements in this clinic note [...] labs, include flow cytometry 1 week before [facility] Clinical Note Previous notes reviewed today [...] with more than 50% of the total bleg-hd-iazz time of the visit in counseling / coordination of care. Yo Morse MD, MS Plugmanvacuum metalizer operator Hematology and Medical Oncology [address] [address], [place] [address] Labs and Imaging Reviewed outside records provided prior to this visit and those in [facility]. as diagnosed by Dr. Morse [facility]. No evidence of a paraprotein. [...] lobe groundglass opacity. (more content not included)... [facility] 06-24-2023 Note HNO ID: [id number] Author: DALLAS LOMBARDO MD Service: ? Author Type: Physician Type: Progress Notes Filed: 06/24/2023 12:13 Note Text: [facility] UROLOGY VISIT [facility] Up [facility] [...] Intermittent Intervention/Comfort measure Pain Comments Questionnaire: [facility] Mychart Additional Demo Question Answer Is this visit related to an accident, other than Workers' Compensation? No Is this visit related to Workers' Compensation? No Do you need an manager wastewater? No Questionnaire: Val Promis 10 Adult Short [...] CYSTOURETHROSCOPY 06/20/15 Cystoscopy; Dr. Lombardo; [place] REJ [facility] HX Left HYSTERECTOMY HX 1994 left overy and hysterectomy. ROTATOR CUFF REPAIR Left x 2 SHOULDER SURGERY HX Right TONSILLECTOMY HX TONSILLECTOMY HX Social History Tobacco Use Smoking status: Never Smokeless tobacco: Never Vaping Use Vaping Use: Never used Substance Use Topics Alcohol use: Yes Comment: rare Drug use: No MEDICATIONS: Current Outpatient Medications Medication Sig fluticasone propionate (FLONASE NASAL) Use in the nose as (more content not included)... [facility] 06-24-2023 Note HNO ID: [id number] Author: ?, ?, ? Service: ? Author Type: ? Type: Progress Notes Filed: 06/24/2023 12:13 Note Text: PVR = 0 ml Via bladder scan. [facility] 04-04-2023 Miscellaneous Notes I hope she had a good trip to [place]. She can come back to see me in 3 months - just need her labs done 2-3 days before. documented in this encounter [facility] 03-31-2023 Note HNO ID: [id number] Author: Kaci Hodge RN Service: ? Author [...] DATE: March 31, 2023 TIME: 8:53 AM [facility] 03-31-2023 Note HNO ID: [id number] Author: Charleen Tao RT(R) Service: ? Author [...] RT Corine(R) March 31, 2023 9:39 AM [facility] 10-10-2022 Hospital Discharge instructions Patient Education 10/10/2022 16:00:24 Otitis Media [...] few weeks. Home care treatment may include: Jthd-gtx-btqscrg pain relievers. A warm, moist cloth placed over the ear. Severe cases may require a procedure to insert tubes in the ears (tympanostomy tubes) to drain the fluid. Follow these instructions at home: Take ryug-wuv-ngiphix and prescription medicines only as told by [...] provider. Document Revised: 09/11/2021 Document Reviewed: 09/11/2021 [employer] Patient Education 2022 [employer] Follow Up Care 10/10/2022 14:55:39 With:Ricardo Hooper Address: [address] [place] [address] [phone] Business (1) When:10/13/2022 15:48:06 Comments:Follow-up with your primary care provider in 3 to 5 days. If symptoms worsen, do not improve, or new symptoms arise please report back to emergency department for further evaluation. [facility] 10-10-2022 Evaluation + Plan note Extrac mirtha from: Title:ED Note Author:Thony Soriano PA-C te:10/10/22 Left serous otitis media (H6 5.92: Unspecified nonsuppurative otitis media, left ear) Orders: cefdinir, 300 mg = 1 cap(s), Oral, q12hr, X 7 day(s), # 14 cap(s), Refills(s) 0 predniSONE, 60 mg = 3 tab(s), Oral, Daily, X 7 day(s), # 21 tab(s), Refills(s) 0 [facility]05-10-2023 Instructions* Patient Instructions* Jose Bryant MD - 10/07/2022 10:42 AM EDT RTC in 6 months labs and scans 1 week before Hold oral Iron while in [place] ( for 3 weeks) CT chest in 6 months with labs also. documented [facility] History of Present illness Narrative* Jose Bryant MD - 10/07/2022 10:33 AM EDT Images from the original note were not included. NAME: Jessica Ferrera CLINIC NO.: [id number] DATE OF SERVICE: June [facility] 2022 [facility] Some elements in this clinic note that [...] stable - can reassess in 6 months. [facility] Clinical Note Previous notes reviewed today in [...] with more than 50% of the total zxuk-ta-sxls time of the visit in counseling / coordination of care. Yo Morse MD, MS Plugmanvacuum metalizer operator Hematology and Medical Oncology [address] [place], [place] [id number] Labs and Imaging Reviewed outside records provided prior to this visit and those in [facility]. as diagnosed by Dr. Morse [facility]. No evidence of a paraprotein. [...] in concerned with recent CT done in [facility] with a left 8 mm [...] She gets pain in her ear. Dr. uBrt noted a deviated septum and no obvious cause of her pain per the patient. preop testing for deviated septum noted low platelets. Colonoscopy in [place] 2016 with many polyps, recommended repeat. Colonoscopy in 2017 in [place]. June 27, 2018 She notes recent severe [...] 5 miles per day. Had trip to [place] in November for chest pain. CT chest [...] Other: See Comments Burning of skin Nitrofurantoin [place]* GI Upset, Hives, Itching, Rash, Swelling Penicillins [...] CYSTO.PANENDO 06/05/2021 CYSTOURETHROSCOPY 06/20/15 Cystoscopy; Dr. Lombardo; [place] [facility]J [facility] HX Left HYSTERECTOMY HX [...] which included preparing to see the patient, wjpw-bk-mwyv patient care, completing clinical documentation, performing a medically appropriate examination, counseling and educating the patient/family/caregiver, ordering medications, tests, or p rocedures, and independently interpreting results (not separately reported). Jose Bryant MD, CPE Hematology and Oncology Services Provided at: [place], [place] CC: Ricardo Hooper MD [address] [facility] [address] documented in this encounterDelaware [facility]05-10-[facility]23 Nurse Note* Desiree Connors MA - 10/07/2022 10:08 AM EDT Patient is going to physical therapy for back and head, her head is better. Desiree Connors MA documented in this encounterDelaware [facility]03-08-2023 NotePROCEDURE: XR ANKLE LT MIN 3 V COMPARISON: 10/01/2021 HISTORY: Pain of left ankle joint FINDINGS: BONES:No acute fracture or dislocation. Moderate to marked enthesopathic spurring of the plantar calcaneus. Mild degenerative changes with marginal osteophyte formation. SOFT TISSUES:Negative. No visible soft tissue swelling. EFFUSION:None visible. OTHER: Negative. IMPRESSION: Stable degenerative changes Electronically authenticated by: JOSE ALBERTO STEPHEN Date: 2022-08-05 13:47[facility]01-11-2023 Instructions* Patient Instructions* Jose Bryant MD - 06/10/2022 11:35 AM EST Keep appointment scheduled in September with Labs same day. Continue oral Iron CT chest in one year with labs also. Will order at next visit in September RTC in 6 months - same day as labs - CBC, CMP, Anemia documented in this encounterDelaware [facility] Hospital01-11-2023 History of Present illness Narrative* Jose Bryant MD - 06/10/2022 11:26 AM EST Images from the original note were not included. NAME: Jessica Ferrera CLINIC NO.: [id number] DATE OF SERVICE: June 10, 2022 (Andra) [...] 1 year. Will discuss in 6 months. [facility] Clinical Note Previous notes reviewed today in [...] with more than 50% of the total yxxz-ln-yhqd time of the visit in counseling / coordination of care. Yo Morse MD, MS Plugmanvacuum metalizer operator Hematology and Medical Oncology [address] [place] [address], [place] [address] Labs and Imaging Reviewed outside records provided prior to this visit and those in [facility]. as diagnosed by Dr. Morse [facility]. No evidence of a paraprotein. [...] in concerned with recent CT done in [facility] with a left 8 mm [...] deviated septum noted low platelets. Colonoscopy in [place] 2016 with many polyps, recommended repeat. Colonoscopy in 2017 in [place]. June 27, 2018 She notes recent severe [...] 5 miles per day. Had trip to [place] in November for chest pain. CT chest [...] Other: See Comments Burning of skin Nitrofurantoin [place]* GI Upset, Hives, Itching, Rash, Swelling Penicillins [...] CYSTOURETHROSCOPY 06/20/15 Cystoscopy; Dr. Lombardo; Leanne REJ [facility] HX Left HYSTERECTOMY HX [...] which included preparing to see the patient, bwhu-rg-hhje patient care, completing clinical documentation, performing a medically appropriate examination, counseling and educating the patient/family/caregiver, ordering medications, tests, or p rocedures, and independently interpreting results (not separately reported). Jose Bryant MD, CPE Hematology and Oncology Services Provided at: [place], [place] CC: Ricardo Hooper MD [address] [facility] [address] documented in this encounterDelaware County Hospital11-15-2022 Miscellaneous Notes* Telephone Encounter - Patricia Eugene RN - 04/14/2022 8:36 AM EST left that RX sent to [facility]quist. Patricia Eugene RN * Telephone Encounter - Patricia Eugene RN - 04/13/2022 10:56 AM EST Pt is scheduled for 2 month follow up; 06/10/22. PIPPA/SRUTHI: Please review and sign iron RX pended by Allison Tavares. Thank you, Patricia Eugene RN * Telephone Encounter - Georgia [...] advise. Georgia Tavares RN documented in this encounterDelaware [facility] Hospital09-22-2022 Miscellaneous Notes* Telephone Encounter - Patricia Eugene RN - 02/19/2022 9:[address] Alberto reviewed labs rec'd from [facility] this morning. He will discuss with patient all results on 03/12 appt. Nothing to address at this time. Patricia Eugene RN * Telephone Encounter - Dedra Carr [facility] - 02/19/2022 8:11 AM EDT Records scanned. * Telephone Encounter - Angle Hawk Pss - 02/18/2022 4:03 PM EDT Appointment moved to after CT on 03/12, pt notified. * Telephone Encounter - Patricia Eugene RN - 02/18/2022 3:52 PM EDT Pt aware can move pt up to Mar [address]. Pt states she also had a recent back surgery at [facility], in [place] with additional lab work. She is okay with getting all the results at her appt, unless you need to go over anything with her after reviewing all the results. PIPPA: review Dr Villasenor labs in the lab tab. I will have Rudi Carr get the additional labs from [facility] for you to review as well. 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 Has been up walking. [...] D/C plan for home today 5. Ortho Csxf-dc-Mebt Discussion of Medical Necessity for Use of [...] provide stability after surgery. Quique Mojica MD [facility] Spine Surgeon [phone] * Regina Pizarro RN - 02/16/2022 6:26 [...] evaluate in AM documented [facility] Post.Bid.Ship Phone: [phone] Hospital Discharge instructions* Discharge Instructions* Quique Mojica [...] redness, swelling or drainage after 4 days [phone] May shower in 2 days No tub baths for 6 weeks Quique Mojica MD [facility] Spine Spine Surgeon Keep it Clean - Post-Operative Home instructions These instructions are to help you have the best possible recovery after your surgical procedure. [facility] is here to support you. If you have questions, call [phone] Wednesday through Wednesday from 7:30AM to 8:30PM to speak to a nurse. If you need to speak to someone outside of these hours, call your physician. Incision Do s and Don ts Do wash hands before and after dressing changes or when you have had any contact with your incision. Use hand museum specialist or antibacterial soap. Do keep your incision [...] through Care Everywhere. * Lumbar Laminectomy: Post-op ([place]) * Constipation ([place]) * DVT (Deep Vein Thrombosis): General Info ([place]) * acetaminophen and oxycodone ([place]) * tizanidine ([place]) * ondansetron (oral) ([place]) * docusate and senna ([place]) documented in this encounterBON [facility] Work Phone: [phone]) 240-745006-23-2022 History of Present illness Narrative* Monica Wallace Ma - 11/20/2021 9:33 AM EDT PVR = 0 ml Via bladder scan. * Dallas Lombardo MD - 11/20/2021 9:30 AM EDT [facility] EST[facility] VISIT CENTER FOR [...] CYSTOURETHROSCOPY 06/20/15 Cystoscopy; Dr. Lombardo; [place] REJ [facility] HX Left HYSTERECTOMY HX [...] antibiotic Dallas Lombardo MD documented in this encounterDelaware [facility] Hospital06-08-2022 NotePROCEDURE: XR FOOT LT MIN 3 VIEWS COMPARISON: 10/01/2021 HISTORY: Pain in left foot FINDINGS: BONES:No acute fracture or dislocation. Moderate enthesopathic spurring of the calcaneus at the plantar insertion. Mild degenerative changes most significant in the midfoot SOFT TISSUES:Negative. No visible soft tissue swelling. EFFUSION:None visible. OTHER: Negative. IMPRESSION: Stable degenerative changes Electronically authenticated by: JOSE ALBERTO STEPHEN Date: 2021-11-05 17:28[facility] note* Diagnosis Screening for genitourinary condition- Primary Screening for other and unspecified genitourinary condition Recurrent UTI Urinary tract infection, site not specified Vaginal atrophy Postmenopausal atrophic vaginitis documented in this encounter [facility] noteNo assessment information availableElyria Memorial Hospital Work Phone: Evaluation note* Diagnosis Spinal stenosis, lumbar region with neurogenic claudication- Primary Lumbar stenosis with neurogenic claudication Spinal stenosis, lumbar region, with neurogenic claudication Hypertension Unspecified essential hypertension GERD (gastroesophageal reflux disease) Esophageal reflux documented in this encounter [facility] Work Phone: evaluation note* Diagnosis Iron deficiency anemia secondary to inadequate dietary iron intake documented in this encounter [facility] note* Diagnosis Iron deficiency anemia secondary to inadequate dietary iron intake- Primary Pulmonary nodules Other nonspecific abnormal finding of lung field Mediastinal lymphadenopathy Enlargement of lymph nodes Idiopathic cytopenia of undetermined significance (ICUS) documented in this encounter [facility] note* Diagnosis Iron deficiency anemia secondary to inadequate dietary iron intake- Primary Thrombocytopenia (HCC) Thrombocytopenia, unspecified Lung nodules Other nonspecific abnormal finding of lung field [facility]* Diagnosis Thrombocytopenia (HCC)- Primary Thrombocytopenia, unspecified Iron deficiency anemia secondary to inadequate dietary iron intake [facility] Diagnosis Primary osteoarthritis of left hip- Primary Limb weakness Other musculoskeletal symptoms referable to limbs Numbness Disturbance of skin sensation Paresthesia Disturbance of skin sensation Pain in extremity, unspecified extremity documented [facility] encounter [facility]* Diagnosis Thrombocytopenia (HCC)- Primary Thrombocytopenia, unspecified Lymphocytosis Lymphocytosis (symptomatic) Mediastinal lymphadenopathy Enlargement of lymph nodes [facility]* Diagnosis Generalized abdominal pain- Primary Abdominal pain, generalized Recurrent UTI Urinary tract infection, site not specified Penicillin allergy Personal history of allergy to penicillin documented [facility]* Diagnosis Iron deficiency anemia secondary to inadequate dietary iron intake- Primary documented in this [facility]* Diagnosis Disorder of sacrum- Primary Disorders of sacrum Disorder of sacrum- Primary Disorders of sacrum Disorder of sacrum Disorders of sacrum documented in this encounter [facility]* Diagnosis Penicillin allergy Personal history of allergy to penicillin [facility] course Narrative No data available for this section [facility] No data available for this section [facility] SystemReason for referral (narrative)* Consultation (Routine) - Pending Review Specialty Diagnoses / Procedures Referred By Contac t Referred To Contact Pain Medicine Diagnoses Primary osteoarthritis of left hip Procedures IA OFFICE/OUTPATIENT [facility] 60 MINUTES Jr. Salima Pedro, [address] [address] Enmanuel Ferreira MD [address] [place] [address] Referral ID Status Reason Start Date Expiration Date Visits Requested Visits Authorized [id number] Pending Review Consult and Treat 07/12/2023 01/08/2024 1 1 * (Routine) - Incomplete Specialty Diagnoses / Procedures Referred By Contac t Referred To Contact Diagnoses Limb weakness Numbness Paresthesia Pain in extremity, unspecified extremity Procedures EMG AND NERVE CONDUCTION STUDY Jr. Salima Pedro, [address] [facility] [address] [place] [address] Referral ID Status Reason Start Date Expiration Date V isits Requested Visits Authorized [id number] Incomplete 07/12/2023 01/08/2024 1 1 KE Kraus for visit Narrative* Auth/Cert Specialty Diagnoses / Procedures Referred By Contac t Referred To Contact Diagnoses Lumbar spinal stenosis LUMBAR SPINAL STENOSIS Procedures IA LAMINECTOMY,>2 SGMT,LUMBAR LAMINEC/FACETECT/FORAMIN,MARCIAL MBAR 1 SEG L3-4 LUMBAR LAMINECTOMY POSTERIOR ABOVE PREVIOUS L 4-5 FUSION Quique Mojica MD [address] [place] [address] [employer] [address] [place] [address] Referral ID Status Reason Start Date Expiration Date Visits Re quested Visits Authorized [id number] 1 1 [employer] Work Phone: Summary Purpose Family History No Family History Records Found Relationship Condition Age at Onset Recorded Date/T kentrell father Hypertension Unknown Heart disease Unknown Malignant neoplasm Unknown Not Specified Hypertension Unknown Advance Directives No Advanced Directives Records FoundDocuments on File Type Date Recorded 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 Advance Directive(s) 07/22/2018 3:03 PM Ad vanced Directives Advance Directive Response Recorded Date/ Time Advance Directives No November 15 4:00pm Latest Code Status on File Code Status Date Activated Date Inactivated Comments Full Code 02/16/2022 6:19 PM Documents on File Type Date Recorded 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 Durable Power of Heel Wheeler Chief Complaint and Reason for Visit Chief Complaint CTDZ Screening Chief Complaint Screening Reason for Referral Specialty Diagnoses / Procedures Referred By Contac t Referred To Contact CT IMAGING Diagnoses Lung nodules Procedures CT CHEST W IVCON DIAGNOSTIC COMPUTED TOMOGRAPHY THORAX W/CONTRAST Jose Bryant MD [address] [place] [address] [place] [address] Ct Imaging Referral ID Status Reason Start Date Expiration Date Visits Requested Visits Authorized [id number] Authorized Auto-Generat ed Referral 3 11/06/2023 1 1 Specialty Diagnoses / Procedures Referred By Contac t Referred To Contact Allergy Diagnoses Penicillin allergy Procedures CONSULT TO ALLERGY/IMMUNOLOGY OFFICE/OUTPATIENT [facility] HIGH MDM 60 MINUTES Jenni Cardenas MD [address] [place] [address] Referral ID Status Reason Start Date Expiration Date Visits Requested Visits Authorized [id number] Authorized PCP Requested Referral 07/21/2023 07/20/2024 1 1 Specialty Diagnoses / Procedures Referred By Contac t Referred To Contact CT IMAGING Diagnoses Generalized abdominal pain Procedures CT ABD/PEL WO IVCON CT ABD & PELVIS W/O CONTRAST Jenni Cardenas MD [address] [place] [place] [address] Ct Imaging [place] [address] Referral ID Status Reason Start Date Expiration Date Visits Requested Visits Authorized [id number] Authorized Auto-Generat ed Referral 07/21/2023 08/19/2024 1 1 Specialty Diagnoses / Procedures Referred By Contac t Referred To Contact Dalia Israel PA [address], [address] [place] [address] Referral ID Status Reason Start Date Expiration Date V isits Requested Visits Authorized [id number] Pending Review 1 1 Specialty Diagnoses / Procedures Referred By Contac t Referred To Contact Diagnoses Disorder of sacrum Procedures Case request operating room: INJECTION BLOCK SACROILIAC JOINT Dalia Israel PA [address] [place] [address] Referral ID Status Reason Start Date Expiration Date V isits Requested Visits Authorized [id number] Pending Review 08/24/2023 08/23/2024 1 1 Additional Source Comments INFORMATION SOURCE (unrecogn ized section and content) DATE CREATED AUTHOR 09/24/2021 [facility] dical Specialist DATE CREATED AUTHOR AUTHOR'S ORGANIZ ATION 10/09/2022 [facility] DATE CREATED AUTHOR AUTHOR'S ORGANIZ ATION 10/12/2022 [facility] DATE CREATED AUTHOR AUTHOR'S ORGANIZ ATION 01/12/2023 [facility] DATE CREATED AUTHOR AUTHOR'S ORGANIZ ATION 03/01/2023 [facility] DATE CREATED AUTHOR AUTHOR'S ORGANIZ ATION 10/04/2023 [facility] DATE CREATED AUTHOR AUTHOR'S ORGANIZ ATION 10/11/2023 [facility] DATE CREATED AUTHOR AUTHOR'S ORGANIZ ATION 10/16/2023 [facility] Source Comments (unrecognize d section and content) In the event this informatio n is protected by the Federal Confidentiality of Alcohol and Drug Abuse Patient Records regulations: The Federal rules restrict any use of the information to criminally investigate or prosecute any alcohol or drug abuse patient.[facility] HospitalIn the event this information is protected by the Federal Confidentiality of Alcohol and Drug Abuse Patient Records regulations: The Federal rules restrict any use of the information to criminally investigate or prosecute any alcohol or drug abuse patient.[facility] HospitalIn the event this information is protected by the Federal Confidentiality of Alcohol and Drug Abuse Patient Records regulations: The Federal rules restrict any use of the information to criminally investigate or prosecute any alcohol or drug abuse patient.[facility] HospitalIn the event this information is protected by the Federal Confidentiality of Alcohol and Drug Abuse Patient Records regulations: The Federal rules restrict any use of the information to criminally investigate or prosecute any alcohol or drug abuse patient.[facility] HospitalIn the event this information is protected by the Federal Confidentiality of Alcohol and Drug Abuse Patient Records regulations: The Federal rules restrict any use of the information to criminally investigate or prosecute any alcohol or drug abuse patient.[facility] HospitalIn the event this information is protected by the Federal Confidentiality of Alcohol and Drug Abuse Patient Records regulations: The Federal rules restrict any use of the information to criminally investigate or prosecute any alcohol or drug abuse patient.[facility] HospitalIn the event this information is protected by the Federal Confidentiality of Alcohol and Drug Abuse Patient Records regulations: The Federal rules restrict any use of the information to criminally investigate or prosecute any alcohol or drug abuse patient.[facility] HospitalIn the event this information is protected by the Federal Confidentiality of Alcohol and Drug Abuse Patient Records regulations: The Federal rules restrict any use of the information to criminally investigate or prosecute any alcohol or drug abuse patient.[facility] HospitalIn the event this information is protected by the Federal Confidentiality of Alcohol and Drug Abuse Patient Records regulations: The Federal rules restrict any use of the information to criminally investigate or prosecute any alcohol or drug abuse patient.[facility] HospitalIn the event this information is protected by the Federal Confidentiality of Alcohol and Drug Abuse Patient Records regulations: The Federal rules restrict any use of the information to criminally investigate or prosecute any alcohol or drug abuse patient.[facility] HospitalIn the event this information is protected by the Federal Confidentiality of Alcohol and Drug Abuse Patient Records regulations: The Federal rules restrict any use of the information to criminally investigate or prosecute any alcohol or drug abuse patient.[facility]In the event this information is protected by the Federal Confidentiality of Alcohol and Drug Abuse Patient Records regulations: The Federal rules restrict any use of the information to criminally investigate or prosecute any alcohol or drug abuse patient.[facility] Reason for Visit (unrecogniz ed section and content) Reason Comments Follow Up F/U RECURRENT UTI - NOTHING HELPING Reason Comments Appointment Results Reason Comments Patient Question appointment Reason Comments 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 Reason Comments Anemia 3 month follow up Reason Comments Pain Reason Comments Appointment Reason Comments New Patient Specialty Diagnoses / Procedures Referred By Contac t Referred To Contact Infectious Diseases Diagnoses Recurrent UTI Procedures CONSULT TO INFECTIOUS DISEASES OFFICE/OUTPATIENT NEW [facility] MDM 60 MINUTES Dallas Lombardo MD [address] [id number] Referral ID Status Reason Start Date Expiration Date V isits Requested Visits Authorized [id number] Closed PCP Requested Referral 06/24/2023 06/23/2024 1 1 Reason Comments Lymphocytosis 1 month follow up Reason Comments Hip Pain Reason Comments New Patient Specialty Diagnoses / Procedures Referred By Contac t Referred To Contact Allergy Diagnoses Penicillin allergy Procedures CONSULT TO ALLERGY/IMMUNOLOGY OFFICE/OUTPATIENT NEW HIGH MDM 60 MINUTES Jenni Cardenas MD [address] [place] [address] Referral ID Status Reason Start Date Expiration Date V isits Requested Visits Authorized [id number] Closed PCP Requested Referral 07/21/2023 07/20/2024 1 1 Reason Comments Patient Question Care Teams (unrecognized sec tion and content) Team Status: Active Member Role Status Dates Ricardo Hooper MD Primary Care Provider Active Team Status: Inactive Member Role Status Dates Ricardo Hooper MD Primary Care Provider Active Referral Self Attending Provider Active Data Technical Lead Relationship Specialty Start Date End Date Ricardo Hooper MD [address] [place] [address] PCP - General Family Practice 01/11/19 Madisyn Lara MD [address] [place], [place] [id number] Primary Staff Physician Cardiology 08/16/18 Team Status: Inactive Member Role Status Dates Ricardo Hooper MD Primary Care Provider Active Rocky Villasenor MD Attending Provider Active Team Status: Inactive Member Role Status Dates Ricardo Hooper MD Primary Care Provider Active Enmanuel Burton DO Attending Provider Active Data Technical Lead Relationship Specialty Start Date End Date Ricardo Hooper MD [address] [place] [address] PCP - General Family Medicine 09/16/21 Data Technical Lead Relationship Specialty Start Date End Date Ricardo Hooper MD [address] [place] [address] PCP - General Family Medicine 09/16/21 Data Technical Lead Relationship Specialty Start Date End Date Ricardo Hooper MD [address] [place] [address] PCP - General Family Medicine 01/11/19 Madisyn Lara MD [address] [place] [address] Primary Staff Physician Cardiology 08/16/18 Data Technical Lead Relationship Specialty Start Date End Date Ricardo Hooper MD [address] [place] [address] PCP - General Family Medicine 01/11/19 Madisyn Lara MD [address] [place] [address] Primary Staff Physician Cardiology 08/16/18 Data Technical Lead Relationship Specialty Start Date End Date Ricardo Hooper MD [address] [place] [address] PCP - General Family Medicine 01/11/19 Madiysn Lara MD [address] [place] [address] Primary Staff Physician Cardiology 08/16/18 Data Technical Lead Relationship Specialty Start Date End Date Ricardo Hooper MD PCP - General Family Medicine 01/11/19 Madisyn Lara MD [address] [place] [address] Primary Staff Physician Cardiology 08/16/18 Data Technical Lead Relationship Specialty Start Date End Date Ricardo Hooper MD PCP - General Family Medicine 01/11/19 Madisyn Lara MD [address] [place] [address] Primary Staff Physician Cardiology 08/16/18 Data Technical Lead Relationship Specialty Start Date End Date Ricardo Hooper MD [address] [place] [address] PCP - General Family Medicine 10/27/22 Data Technical Lead Relationship Specialty Start Date End Date Ricardo Hooper MD [address] [place] [address] PCP - General Family Medicine 10/27/22 Data Technical Lead Relationship Specialty Start Date End Date Ricardo Hooper MD PCP - General Family Medicine 01/11/19 Madisyn Lara MD [address] [facility] [place] [address] Primary Staff Physician Cardiology 08/16/18 Data Technical Lead Relationship Specialty Start Date End Date Ricardo Hooper MD PCP - General Family Medicine 01/11/19 Madisyn Lara MD [address] [facility] [place] [address] Primary Staff Physician Cardiology 08/16/18 Data Technical Lead Relationship Specialty Start Date End Date Ricardo Hooper MD PCP - General Family Medicine 01/11/19 Madisyn Lara MD [address] [address] Primary Staff Physician Cardiology 08/16/18 Data Technical Lead Relationship Specialty Start Date End Date Ricardo Hooper MD PCP - General Family Medicine 01/11/19 Madisyn Lara MD [address] [address] Primary Staff Physician Cardiology 08/16/18 Data Technical Lead Relationship Specialty Start Date End Date Ricardo Hooper MD [address] [place] [address] PCP - General Family Medicine 08/01/19 Data Technical Lead Relationship Specialty Start Date End Date Ricardo Hooper MD PCP - General Family Medicine 01/11/19 Madisyn Lara MD [address] [facility] [address] [place] [address] Primary Staff Physician Cardiology 08/16/18 Data Technical Lead Relationship Specialty Start Date End Date Ricardo Hooper MD PCP - General Family Medicine 01/11/19 Madisyn Lara MD [address] [facility] [address] [place] [address] Primary Staff Physician Cardiology 08/16/18 Goals (unrecognized section and content) Goals may be documented in a n alternate section No data available for this sectionGoals may be documented in an alternate sectionNot on filedocumented as of this encounter Ordered Prescriptions (unrec ognized section and content) [...] accepted: Okay for Pharmacy to Substitute, Post-op 1831 (Not Given - Provider: Regina Pizarro RN [...] on Wed02/16/22 at 1845, Until Discontinued, Post-op 1908 (Given - Provider: Regina Pizarro RN) pantoprazole [...] on Wed02/16/22 at 1845, Until Discontinued, Post-op 1908 (Not Given - Provider: Becky Villavicencio RN [...] Isabel RN) 1157 (Stopped - Provider: Regina Pizarro, RN) PRN Medication Order 02/15/2022 02/16/2022 02/17/2022 [...] Muscle spasms, Post-op bupivacaine-EPINEPHrine PF (MARCAINE-w/EPINEPHRINE) 0.5% -[id number] injection (CANCELED) PRN, Starting on Wed02/16/22 at [...] only 1700 (Given - Provider: Patito Palafox, NING)170 (Given - Provider: Patito Palafox RN) hydrOXYzine [...] on Wed02/16/22 at 181, Until Discontinued, pain 6-10, Maximum dose of [...] from all sources in 24 hours.
Post-op Inactive Administered Medications - up to 3 most recent administrations Administered Medications (un recognized section and content) Medication Order MAR Action Action Date Dose Rate Site amoxicillin 250 mg oral liquid (AMOXIL) 250 mg, ORAL, ONCE (UP TO 30 DAYS AMB), 1 dose, On Wed08/30/23 at 1530, 2 step graded dose oral challenge Step 1: 25mg wait 30 min Step 2: 225mg wait 31 min SHAKE WELL. REFRIGERATE., Antimicrobial indication: Empiric Given 08/30/2023 3:23 PM EDT 250 mg cetirizine 10 mg tab(s) (ZYRTEC) 10 mg, ORAL, ONCE, 1 dose, On Wed08/30/23 at 1630 Given 08/30/2023 3:54 PM EDT 10 mg Ora l famotidine 20 mg tab(s) (PEPCID) 20 mg, ORAL, ONCE, 1 dose, On Wed08/30/23 at 1630 Given 08/30/2023 3:56 PM EDT 20 mg Ora l predniSONE 40 mg tab(s) (DELTASONE) 40 mg, ORAL, ONCE, 1 dose, On Wed08/30/23 at 1630, ADMINISTER WITH FOOD Given 08/30/2023 3:56 PM EDT 40 mg Oral FOR RECORDS PERTAINING TO PATIENTS WHO ARE [...] BE BASED ON THE PRIMARY CLINICAL RECORDS. [employer] [facility]. provides no warranty or guarantee of the accuracy or completeness of information in this document.
[2023-10-18 09:15] LABS: Chol HDL Ratio 3.5; Cholesterol 207 mg/dL (<=200); Free T3 3.18 pg/mL (2.18-3.98); HDL Cholesterol 59 mg/dL (40-60); Thyroid Stimulating Hormone 3.014 uIU/mL (0.358-3.740); Triglycerides 201 mg/dL (<=150); VLDL CHOLESTEROL 40.2 mg/dL
[2023-10-18 11:14] LABS: Estimated Average Glucose 123 mg/dL; Glycohemoglobin A1C 5.9 % (4.5-6.2)
[2023-10-19 10:13] LABS: Insulin 29.5 uIU/mL (2.6-24.9)
== END 2023-10-18 07:13 | disposition home or self-care (01) ==
LOC: LAB 07:13
PROVIDERS: PCP Family Medicine; Visit Provider Family Medicine
DX: E66.01 Morbid (severe) obesity due to excess calories (principal)
CPT/HCPCS: 36415; 80061; 83036; 83525; 84436; 84443; 84481

== ENCOUNTER 2023-11-16 11:42 | Outpatient (OUT) | payer MEDICARE, SELFPAY ==
--- NOTE | 2023-11-16 | CONS_ITS ---
CONSULTATION DATE: 11/16/2023 CHIEF COMPLAINT: Includes left groin pain. HISTORY OF PRESENT ILLNESS: Review of systems, past medical/surgical history were obtained and documented on the health questionnaire and is available upon request. She is a 68-year-old female, reports having pain in the above mentioned areas several years ago. It occurred spontaneously and increased gradually to its present state, where she now complains of at least 10/10 pain in the above mentioned areas. Increased pain with activities such as standing, walking and performing transitioning maneuvers. Feels most comfortable in the semi- recumbent position. Denies any change in bowel and bladder habits or new sensorimotor changes in the lower extremities. CURRENT MEDICATION: Includes ibuprofen 800 mg daily p.r.n., baclofen 10 mg daily p.r.n., trazodone 100 mg daily. EXAM: Notable for patient having no clinical radiculopathy or myelopathy involving the lower extremities; however, the patient did have positive left sided FABERE?s sign, significant myofascial spasm of the left adductor muscle was also noted. IMPRESSION: Patient with chronic pain secondary to left hip joint pain clinically. RECOMMENDATIONS: She is scheduled to undergo a left hip joint injection in the near future. I have encouraged her to keep that appointment. I have also added aquatic therapy to her regimen. I have also encouraged her to try increasing her baclofen. She states she has a 10 mg pill. I have asked her try increasing this to 20 mg at h.s. All her questions answered. She agrees to proceed with the outlined plan, and will see the patient back in the office on an as needed basis. As part of providing excellent, safe, comprehensive care, the following was completed at our patient's visit: 1. A medication reconciliation and review to ensure accurate knowledge of current/active medications, including asking our patients to inform us about any vfaq-qmq-kzqyagz medications or herbal remedies/nutritional supplements/alternative remedies. 2. A review to specifically ensure our patients have had annual screening for: elevated body mass index (BMI, see intake chart for exact total), tobacco use, screening for depression, and screening for unhealthy alcohol use. When screening is concerning, patients are provided with education and the specific recommendation to discuss the concerning health issue and treatment options with their primary care provider. SHEILA
== END 2023-11-16 11:43 | disposition home or self-care (01) ==
LOC: PM 11:42
PROVIDERS: PCP Family Medicine; Visit Provider Anesthesiology Pain Medicine
DX: M25.552 Pain in left hip (principal); G89.4 Chronic pain syndrome
CPT/HCPCS: G0463

== ENCOUNTER 2023-12-22 08:43 | Day surgery (SDC) | payer MEDICARE, SELFPAY ==
--- NOTE | 2023-12-22 08:53 | FL_ITS ---
[address] [address] Patient Name: QUANG SALDIVAR MRN: [id number] date: 1955 Sex: F [place]igned Patient Location: [place] Current Patient Location: [place] Accession/Order Number: [id number] Exam Date: 12/22/2023 09:45 Report Date: 12/22/2023 10:32 At the request of: SALIMA GERARD Procedure: FL guided needle placement EXAMINATION: FL hip inj LT, FL guided needle placement HISTORY: Primary Osteoarthritis Of Left Hip M16.12 COMPARISON: 07/14/2023 FLUORO DOSE: unknown TECHNIQUE: A joint injection was performed in the usual sterile manner after obtaining informed consent. Standard level fluoroscopic mode of operation utilized. FINDINGS: JOINT: Left hip. NEEDLE: 22 gauge, 3.5 spinal needle. MEDICATION: 5cc buffered 1% lidocaine for subcutaneous anesthesia 3 mL Omnipaque 300. 40 mg Kenalog. 0.5% 2 mL bupivacaine, 5 cc normal saline. TECHNIQUE: Anterior approach with prior localization of the femoral artery. A single stick was successful in gaining access to the joint space. CLINICAL: 9 out of 10 pain before the injection. 3 out of 10 pain following the injection COMPLICATIONS: None. OTHER: Negative. FL/FL guided needle placement IMPRESSION: Technically successful left hip therapeutic arthrogram Electronically authenticated by: JOSE ALBERTO STEPHEN Date: 12/22/2023 10:32
--- NOTE | 2023-12-22 08:53 | FL_ITS ---
[address] [address] Patient Name: QUANG SALDIVAR MRN: [id number] date: 1955 Sex: F [place]igned Patient Location: [place] Current Patient Location: [place] Accession/Order Number: [id number] Exam Date: 12/22/2023 09:45 Report Date: 12/22/2023 10:32 At the request of: SALIMA GERARD Procedure: FL hip inj LT EXAMINATION: FL hip inj LT, FL guided needle placement HISTORY: Primary Osteoarthritis Of Left Hip M16.12 COMPARISON: 07/14/2023 FLUORO DOSE: unknown TECHNIQUE: A joint injection was performed in the usual sterile manner after obtaining informed consent. Standard level fluoroscopic mode of operation utilized. FINDINGS: JOINT: Left hip. NEEDLE: 22 gauge, 3.5 spinal needle. MEDICATION: 5cc buffered 1% lidocaine for subcutaneous anesthesia 3 mL Omnipaque 300. 40 mg Kenalog. 0.5% 2 mL bupivacaine, 5 cc normal saline. TECHNIQUE: Anterior approach with prior localization of the femoral artery. A single stick was successful in gaining access to the joint space. CLINICAL: 9 out of 10 pain before the injection. 3 out of 10 pain following the injection COMPLICATIONS: None. OTHER: Negative. FL/FL hip inj LT IMPRESSION: Technically successful left hip therapeutic arthrogram Electronically authenticated by: JOSE ALBERTO STEPHEN Date: 12/22/2023 10:32
[2023-12-22] MEDS: TRIAMCINOLONE ACETONIDE 40 MG/ML VIAL INJ (09:45)
[2023-12-22] MEDS: BUPIVACAINE HCL 0.5% PF 50 MG/10 ML VIAL 2 ML INJ (09:45)
[2023-12-22] MEDS: LIDOCAINE HCL 10 ML, SODIUM BICARBONATE 1 MEQ INJ (09:45)
== END 2023-12-22 10:10 | disposition home or self-care (01) ==
LOC: FL 08:45
PROVIDERS: Radiology Diagnostic Radiology; PCP Family Medicine; Visit Provider Orthopaedic Surgery
DX: M16.12 Unilateral primary osteoarthritis, left hip (principal)
CPT/HCPCS: 20610; 77002; J0665; J3301; Q9967

== ENCOUNTER 2024-02-10 13:17 | Outpatient (OUT) | payer MEDICARE, SELFPAY ==
--- NOTE | 2024-02-10 13:57 | P.CN_ITS ---
Consult Note: HPI Data of Consult Patient: known to practice within the last 3 years Requesting Physician: Jerrica Brito NP Primary Care Provider: Jono Archer MD Consult Narrative Reason for consult: f/u Narrative: Jessica Ferrera a pleasant 58 year old female presents for evaluation of chronic left hip pain secondary to left hip OA. Patient has a longstanding hx of OA and joint replacements, upcoming left hip replacement 05/[address] Pedro. Patient finding mild benefit to motrin and baclofen, significant improvement with PRN tramadol 50mg, denies side effects. Patient rating pain 11/10 today throbbing stabbing pain. cc:: CC: Jerrica Brito NP Review of Systems ROS Status of ROS 10 or more systems reviewed and unremark able except as noted in history and below Musculoskeletal Reports: joint pain PFSH PFSH Medical History (Updated 02/10/24 @ 14:00 by Jerrica Brito NP) Blood disorder ?D75.9 - Disease of blood and blood-forming organs, unspecified (ICD-10) GERD (gastroesophageal reflux disease) ?K21.9 - Gastro-esophageal reflux disease without esophagitis (ICD-10) HTN (hypertension) ?I10 - Essential (primary) hypertension (ICD-10) Frequent UTI ?N39.0 - Urinary tract infection, site not specified (ICD-10) Left hip pain ?M25.552 - Pain in left hip (ICD-10) Arthritis ?M19.90 - Unspecified osteoarthritis, unspecified site (ICD-10) Surgical History Previous back surgery ?Z98.890 - Other specified postprocedural states (ICD-10) History of ankle surgery ?Z98.890 - Other specified postprocedural states (ICD-10) History of carpal tunnel repair ?Z98.890 - Other specified postprocedural states (ICD-10) Hx of arthroscopy of shoulder ?Z98.890 - Other specified postprocedural states (ICD-10) Hx of total knee arthroplasty ?Z96.659 - Presence of unspecified artificial knee joint (ICD-10) H/O total hip arthroplasty ?Z96.649 - Presence of unspecified artificial hip joint (ICD-10) Meds Home Medications and Allergies Home Medications ?Medication ?Instructions ?Recorded ?Confirmed ?Type cranberry 2 tab PO DAILY 07/14/23 12/22/23 History estradiol 0.01% (0.1 mg/gram) 0.01 g vaginal .3 times a week 07/14/23 12/22/23 History vaginal cream ferrous sulfate 325 mg (65 mg 325 mg PO .3 times a week 07/14/23 12/22/23 History iron) tablet fluticasone propionate 50 2 spray intranasal DAILY PRN 07/14/23 12/22/23 History mcg/actuation nasal allergy symptoms spray,suspension lisinopril 20 mg tablet 20 mg PO DAILY 07/14/23 12/22/23 History methenamine hippurate 1 gram tablet 1 g PO BID 07/14/23 12/22/23 History sennosides 8.6 mg tablet (senna) 8.6 mg PO .evenings 07/14/23 12/22/23 History trazodone 100 mg tablet 100 mg PO BEDTIME 07/14/23 12/22/23 History Lactobacillus acidophilus 1 tab PO .evenings 10/05/23 12/22/23 History azelastine 4 spray intranasal BID PRN 10/05/23 12/22/23 History allergic symptoms esomeprazole magnesium 40 mg 40 mg PO DAILY 10/05/23 12/22/23 History capsule,delayed release ibuprofen 800 mg tablet 800 mg PO TID PRN pain 10/05/23 12/22/23 History levocetirizine 5 mg tablet (Xyzal) 5 mg PO DAILY 11/17/23 12/22/23 History phentermine 37.5 mg tablet 18.75 mg PO DAILY 11/17/23 12/22/23 History (Adipex-P) ibuprofen 800 mg tablet 800 mg PO BEDTIME 12/22/23 12/22/23 History Allergies Allergy/AdvReac Type Severity Reaction Status Date / Time doxycycline Allergy Unknown Verified 12/22/23 11:04 levofloxacin [From Levaquin] Allergy joint Verified 12/22/23 11:04 swelling miconazole [From Monistat 3] Allergy Unknown Verified 12/22/23 11:04 nitrofurantoin Allergy Gi Verified 12/22/23 11:04 [From Macrobid] intolerance, nausea, rash, swelling Penicillins Allergy sob Verified 12/22/23 11:04 skin cleanser combination Allergy Unknown Verified 12/22/23 11:04 no.17 [From Monistat 3] ciprofloxacin [From Cipro] AdvReac GI Verified 12/22/23 11:04 intolerance clindamycin AdvReac Nausea Verified 12/22/23 11:04 Exam Constitutional Documenting provider has reviewed patient's vital signs: yes Common normals: no apparent distress, oriented x3, healthy appearing, alert and well nourished General appearance: cooperative HENMT Common normals: normocephalic, hearing grossly normal bilaterally and moist oral mucous membranes Head and scalp: normocephalic Eye Common normals: PERRL Pupil: PERRL Neck & C-Spine Common normals: full ROM General: normal visual inspection Chest Common normals: inspection of chest normal Respiratory Common normals: normal respiratory effort, no retractions and no use of accessory muscles Back & Pelvis Lumbar spine/lower back: pain with ROM Extremity Common normals: normal to inspection Left lower extremity: hip joint Other: significant pain with internal and external rotation Neuro Common normals: oriented x3, CN's II-XII intact bilaterally, moves all extremities, no focal motor deficits, no sensory deficits noted and deep tendon reflexes 2+ bilaterally Sensorium/orientation: alert Motor exam: strength 5/5 throughout and no movement abnormalities noted Psych Common normals: mental status grossly normal, thought process normal, cooperative, affect normal, speech normal and activity/motor behavior normal Speech: normal speech Thought process: normal thought process Results Additional Findings Additional findings: If on a controlled substance or opioids, I have checked an [place] report on this patient and there are no aberrancies noted in the prescribing history.??If on a controlled substance or opioid a drug screen was completed and reviewed within the last year, and if there has not been a drug screen completed we ordered one today to monitor higher risk, state monitored pain medication use. As part of providing excellent, safe, comprehensive care, the following was completed at our patient's visit: 1. A medication reconciliation and review to ensure accurate knowledge of current/active medications, including asking our patients to inform us about any wymr-maj-juusfob medications or herbal remedies/nutritional supplements/alternative remedies. 2. A review to specifically ensure our patients have had annual screening for screening for depression, screening for tobacco use, and screening for unhealthy alcohol use. For concerning screenings had a discussion with the patient, provided patient education, and recommended follow-up with primary care provider when appropriate. If patient noted with a risk of falling, they received education on strength, gait, and balance training to prevent future risk of falling. Assessment and Plan Assessment and Plan (1) Osteoarthritis of left hip: (2) Left hip pain: Plan at this time continue tramadol 50mg daily PRN moderate to severe pain, pt aware she will need to stop tramadol post op and allow dr pedro to manage post op pain continue prn motrin f/u 3-4 months
== END 2024-02-10 13:18 | disposition home or self-care (01) ==
LOC: PM 13:18
PROVIDERS: PCP Family Medicine; Visit Provider Nurse Practitioner
DX: M16.12 Unilateral primary osteoarthritis, left hip (principal)
CPT/HCPCS: G0463

== ENCOUNTER 2024-06-07 08:43 | Outpatient (OUT) | payer MEDICARE, SELFPAY ==
--- NOTE | 2024-06-07 09:10 | P.CN_ITS ---
Consult Note: HPI Data of Consult Patient: known to practice within the last 3 years Requesting Physician: Jerrica Brito NP Primary Care Provider: Jono Archer MD Consult Narrative Reason for consult: f/u Narrative: Jessica Ferrera a pleasant 58 year old female presents for evaluation of chronic left hip pain secondary to left hip OA. Patient has a longstanding hx of OA and joint replacements, recently underwent left hip replacement with Dr Pedro, pt doing well overall. Patient finding mild benefit to motrin and baclofen, significant improvement with PRN tramadol 50mg once daily as needed, denies side effects. Patient rating pain 4/10 today throbbing stabbing pain. Pt engaged in PT with mild benefit. continues to have pain and soreness over left lateral hip along incision. cc:: CC: Jerrica Brito NP [facility] Medical History (Updated 06/07/24 @ 09:11 by Jerrica Brito NP) Blood disorder ?D75.9 - Disease of blood and blood-forming organs, unspecified (ICD-10) GERD (gastroesophageal reflux disease) ?K21.9 - Gastro-esophageal reflux disease without esophagitis (ICD-10) HTN (hypertension) ?I10 - Essential (primary) hypertension (ICD-10) Frequent UTI ?N39.0 - Urinary tract infection, site not specified (ICD-10) Left hip pain ?M25.552 - Pain in left hip (ICD-10) Arthritis ?M19.90 - Unspecified osteoarthritis, unspecified site (ICD-10) Surgical History Previous back surgery ?Z98.890 - Other specified postprocedural states (ICD-10) History of ankle surgery ?Z98.890 - Other specified postprocedural states (ICD-10) History of carpal tunnel repair ?Z98.890 - Other specified postprocedural states (ICD-10) Hx of arthroscopy of shoulder ?Z98.890 - Other specified postprocedural states (ICD-10) Hx of total knee arthroplasty ?Z96.659 - Presence of unspecified artificial knee joint (ICD-10) H/O total hip arthroplasty ?Z96.649 - Presence of unspecified artificial hip joint (ICD-10) Meds Home Medications and Allergies Home Medications ?Medication ?Instructions ?Recorded ?Confirmed ?Type cranberry 2 tab PO DAILY 07/14/23 12/22/23 History estradiol 0.01% (0.1 mg/gram) 0.01 g vaginal .3 times a week 07/14/23 12/22/23 History vaginal cream ferrous sulfate 325 mg (65 mg 325 mg PO .3 times a week 07/14/23 12/22/23 History iron) tablet fluticasone propionate 50 2 spray intranasal DAILY PRN 07/14/23 12/22/23 History mcg/actuation nasal allergy symptoms spray,suspension lisinopril 20 mg tablet 20 mg PO DAILY 07/14/23 12/22/23 History methenamine hippurate 1 gram tablet 1 g PO BID 07/14/23 12/22/23 History sennosides 8.6 mg tablet (senna) 8.6 mg PO .evenings 07/14/23 12/22/23 History trazodone 100 mg tablet 100 mg PO BEDTIME 07/14/23 12/22/23 History Lactobacillus acidophilus 1 tab PO .evenings 10/05/23 12/22/23 History azelastine 4 spray intranasal BID PRN 10/05/23 12/22/23 History allergic symptoms esomeprazole magnesium 40 mg 40 mg PO DAILY 10/05/23 12/22/23 History capsule,delayed release ibuprofen 800 mg tablet 800 mg PO TID PRN pain 10/05/23 12/22/23 History levocetirizine 5 mg tablet (Xyzal) 5 mg PO DAILY 11/17/23 12/22/23 History phentermine 37.5 mg tablet 18.75 mg PO DAILY 11/17/23 12/22/23 History (Adipex-P) ibuprofen 800 mg tablet 800 mg PO BEDTIME 12/22/23 12/22/23 History tramadol 50 mg tablet 50 mg PO DAILY PRN pain #30 tabs 04/10/24 Rx Allergies Allergy/AdvReac Type Severity Reaction Status Date / Time doxycycline Allergy Unknown Verified 12/22/23 11:04 levofloxacin (From Levaquin) Allergy joint Verified 12/22/23 11:04 swelling miconazole (From Monistat 3) Allergy Unknown Verified 12/22/23 11:04 nitrofurantoin (From Allergy Gi Verified 12/22/23 11:04 Macrobid) intolerance, nausea, rash, swelling Penicillins Allergy sob Verified 12/22/23 11:04 skin cleanser combination Allergy Unknown Verified 12/22/23 11:04 no.17 (From Monistat 3) ciprofloxacin (From Cipro) AdvReac GI Verified 12/22/23 11:04 intolerance clindamycin AdvReac Nausea Verified 12/22/23 11:04 Exam Constitutional Documenting provider has reviewed patient's vital signs: yes Common normals: no apparent distress, oriented x3, healthy appearing, alert and well nourished General appearance: cooperative HENMT Common normals: normocephalic, hearing grossly normal bilaterally and moist oral mucous membranes Head and scalp: normocephalic Eye Common normals: PERRL Pupil: PERRL Neck & C-Spine Common normals: full ROM General: normal visual inspection Chest Common normals: inspection of chest normal Respiratory Common normals: normal respiratory effort, no retractions and no use of accessory muscles Back & Pelvis Lumbar spine/lower back: pain with ROM Sacroiliac joints: SI joint(s) abnormal Other: left sij positive josé miguel(patricks), gaenslens, thigh thrust, compression test Extremity Common normals: normal to inspection Left lower extremity: hip joint Other: mild pain with internal rotation and along lateral thigh scar Neuro Common normals: oriented x3, CN's II-XII intact bilaterally, moves all extremities, no focal motor deficits, no sensory deficits noted and deep tendon reflexes 2+ bilaterally Sensorium/orientation: alert Motor exam: strength 5/5 throughout and no movement abnormalities noted Psych Common normals: mental status grossly normal, thought process normal, cooperative, affect normal, speech normal and activity/motor behavior normal Speech: normal speech Thought process: normal thought process Assessment and Plan Assessment and Plan (1) Status post left hip replacement: (2) Chronic left hip pain: (3) Chronic use of opiate drug for therapeutic purpose: Plan decrease tramadol 50mg once daily as needed moderate to severe pain 15 tabs/month start transdermal therapeutics cream #3 TID-QID PRN continue f/u with Dr Pedro and PT as planned f/u 3 months, sooner if needed
== END 2024-06-07 08:44 | disposition home or self-care (01) ==
PROVIDERS: PCP Family Medicine; Visit Provider Nurse Practitioner
DX: M25.552 Pain in left hip (principal); Z96.642 Presence of left artificial hip joint; Z79.891 Long term (current) use of opiate analgesic
CPT/HCPCS: G0463

== ENCOUNTER 2024-07-30 07:16 | Emergency (ER) | payer MEDICARE, SELFPAY ==
[2024-07-30 07:19] VITALS: BP 159/92; PULSE 90; TEMP 36.6; O2SAT 99; BMI 40.0
--- OUTSIDE RECORDS SUMMARY | 2024-07-30 07:23 | XMS_ITS | CCD ---
Author Organization [facility] Care Team Providers Care White Work Cleaner Name Role Phone Ricardo Hooper MD Primary Care Provider Madisyn Lara MD Unavailable MD Ricardo Hooper Primary Care Provider [phone] MD Rocky Villasenor Attending Provider [phone] DO Enmanuel Burton Attending Provider Ricardo Hooper MD Primary Care Provider [phone] Ricardo Hooper MD Primary Care Provider [phone] Madisyn Lara MD Unavailable Ricardo Hooper MD Primary Care Provider [phone] Madisyn Lara MD Unavailable [phone] Ricardo Hooper MD Primary Care Provider [phone] SANDIE Doty, DR SILVA Admitting Unavailable HOFely ., DR SILVA Consulting Unavailable HOY ., DR SILVA Attending Unavailable HOY ., DR SILVA Primary Care Unavailable HOY ., DR SILVA Admitting Unavailable HOY ., DR SILVA Consulting Unavailable SANDIE ., DR SILVA Attending Unavailable HOFely ., DR SILVA Primary Care Unavailable DR [...] VERNELL Admitting Unavailable VERNELL FARRELL Attending Unavailable HOFely ., DR SILVA Primary Care Unavailable HOY [...] Primary Care Unavailable FELISHA BARROW Consulting Unavailable SANDIE ., DR SILVA Primary Care Unavailable EVERARDO PERALTA Attending Unavailable OSBORNE, DR JOSE ALBERTO Long Consulting Unavailable EVERARDO PERALTA Admitting Unavailable EVERARDO PERALTA Consulting Unavailable VERNELL FARRELL Consulting Unavailable VERNELL FARRELL Attending Unavailable JAMI VERNELL Admitting Unavailable SANDIE ., DR SILVA Primary Care Unavailable HOFely ., DR SILVA Primary Care Unavailable CLARI [...] Primary Care Unavailable LEOBARDO BRASHER Consulting Unavailable DR SHU RODRIGUES Attending Unavailable DIEGO ., DR IRELAND Admitting Unavailable SANDIE ., DR SILVA Primary Care Unavailable DR SHU RODRIGUES Consulting Unavailable Ricardo Hooper Primary Care Physician Rocael Wayne Attending Unavailable QUIQUE MOJICA Referring Unavailable HOY, RICARDO M Primary Care Unavailable QUIQUE MOJICA Referring Unavailable HOY, RICARDO M Primary Care Unavailable QUIQUE MOJICA Admitting Unavailable KRJIMMY, QUIQUE Attending Unavailable BLOOD, JUVENAL P Consulting Unavailable HOY, RICARDO M Primary Care Unavailable MARVA HOBBS Consulting Unavailable BROOKE ADAM Consulting Unavailable QUIQUE MOJICA Admitting Unavailable QUIQUE MOJICA Attending Unavailable BLOOD, JUVENAL P Consulting Unavailable HOY, RICARDO M Primary Care Unavailable HOMER KARIMI Consulting Unavailable MD Ricardo Hooper Primary Care Provider [phone] Self, Referral Attending Provider Unavailable Hoy, Ricardo M Primary Care Unavailable Self, Referral Attending Unavailable Self, Referral Admitting Unavailable Madisyn Lara MD Unavailable Ricardo Hooper MD Primary Care Provider [phone] Ricardo Hooper MD Primary Care Provider [phone] MD Ricardo Hooper Primary Care Provider [phone] DO Enmanuel Burton Attending Provider [phone] DO Enmanuel Burton Referring Provider HOY, RICARDO M Primary Care Unavailable TWARDY, JENNI Referring Unavailable ERNIE AYERS Attending Unavailable HOY, RICARDO M Primary Care Unavailable HOY, RICARDO M Primary Care Unavailable ABHYANKAR, JOSE Attending Unavailable HOY, RICARDO M Primary Care Unavailable TWARDY, JENNI Referring Unavailable HOY, RICARDO M Primary Care Unavailable VASAVADA, DALLAS P Referring Unavailable HOY, RICARDO M Primary Care Unavailable TWPHYLLISY, JENNI Attending Unavailable ABHYANKAR, JOSE Attending Unavailable ABHYANKAR, JOSE Referring Unavailable HOY, RICARDO M Primary Care Unavailable HOY, RICARDO M Primary Care Unavailable VASAVADA, DALLAS P Attending Unavailable HOY, RICARDO M Primary Care Unavailable HOY, RICARDO M Primary Care Unavailable ABHYANKAR, JOSE Referring Unavailable HOY, RICARDO M Primary Care Unavailable ABHYANKAR, JOSE Referring Unavailable PREETHI IBARRA Attending Unavailable Marco CHAPMAN MD, John Ross Unavailable U DALIA Cervantes Attending Unavailable HOY, RICARDO M Referring Unavailable HOY, RICARDO M Primary Care Unavailable ENMANUEL FERREIRA Admitting Unavailable ENMANUEL FERREIRA Attending Unavailable HOY, RICARDO M Referring Unavailable HOY, RICARDO M Primary Care Unavailable SALIMA PEDRO JR Referring Unavailabl e HOY, RICARDO M Primary Care Unavailable SALIMA PEDRO JR Referring Unavailabl e HOY, RICARDO M Primary Care Unavailable HOY, RICARDO M Referring Unavailable HOY, RICARDO M Primary Care Unavailable HOY, RICARDO M Referring Unavailable HOY, RICARDO M Primary Care Unavailable HOY, RICARDO M Referring Unavailable HOY, RICARDO M Primary Care Unavailable SALIMA PEDRO JR Admitting Unavailabl e SALIMA PEDRO JR Attending Unavailabl e HOY, RICARDO M Primary Care Unavailable Ricardo Hooper MD Primary Care Provider [phone] Ricardo Hooper MD Primary Care Provider [phone] ENMANUEL BURTON Attending Unavailable DALIA ORDOÑEZ Attending Unavailable JR. MOUSTAPHA, SALIMA Barba Attending Unavaila chas PEDRO JR., SALIMA Barba Attending Unavaila ble DALIA ORDOÑEZ Attending Unavailable DALIA ORDOÑEZ Referring Unavailable DALIA ORDOÑEZ Attending Unavailable ENMANUEL BURTON Attending Unavailable ENMANUEL BURTON Referring Unavailable JR. MOUSTAPHA, SALIMA Barba Attending Unavaila ble JR. MOUSTAPHA, SALIMA Barba Referring Unavaila ble DALIA ORDOÑEZ Attending Unavailable YARITZA, DALIA Grijalva Referring Unavailable ORDOÑEZ, DALIA Grijalva Attending Unavailable CARMEN RODRIGUEZ Attending Unavailable ORDOÑEZ, DALIA Grijalva Referring Unavailable SNCARMEN DE ANDA Attending Unavailable ORDOÑEZ, DALIA Grijalva Referring Unavailable CARMEN RODRIGUEZ Attending Unavailable ORDOÑEZ, DALIA Grijalva Referring Unavailable ORDOÑEZ, DALIA Grijalva Attending Unavailable CARMEN RODRIGUEZ Attending Unavailable ORDOÑEZ, DALIA Grijalva Referring Unavailable PHILIP ESTRADA Attending Unavailable ORDOÑEZDALIA Referring Unavailable KELSHIVAM, GRACIE Attending Unavailable ORDOÑEZDALIA Referring Unavailable ORDOÑEZ, DALIA Grijalva Attending Unavailable ORDOÑEZDALIA Referring Unavailable KELBLEY, GRACIE Attending Unavailable ORDOÑEZ, DALIA Grijalva Referring Unavailable KELBLEY, GRACIE Attending Unavailable ORDOÑEZ, DALIA Grijalva Referring Unavailable KELBLEY, GRACIE Attending Unavailable ORDOÑEZDALIA Referring Unavailable Allergies Allergy Classification Reported Allergen(s) Allergy Type Date of Onset Reaction(s) Facility (20 sources) Ciprofloxacin; Translations: [ciprofloxacin] Drug Allergy 01-31-20 13 Intolerance, Respiratory function (observable entity), Joint pain (finding), GI intolerance [facility] (20 sources) Clindamycin; Translations: [clindamycin] Drug Allergy 01-24-20 15 Vomiting, Nausea [facility] (20 sources) Doxycycline; Translations: [doxycycline] Drug Allergy 05-14-20 20 Vomiting, Nausea And Vomiting, GI intolerance, Unknown [facility] (20 sources) NITROFURANTOIN, MACROCRYSTALS / Nitrofurantoin, Monohydrate; Translations: [nitrofurantoin] Drug Allergy 10-23-19 22 GI Upset, Hives, Itching, Rash, Swelling [facility] (8 sources) Penicillins; Translations: [PENICILLINS] Drug Allergy 01-31-20 13 Shortness of Breath [facility] (20 sources) tioconazole; Translations: [tioconazole topical] Drug Allergy 01-23-20 15 Other: See Comments, Itching [facility] (20 sources) Skin Cleanser Combination No.17; Translations: [SKIN CLEANSER COMBINATION NO.17] Drug Allergy 09-02-19 18 Unknown [facility] (20 sources) Miconazole; Translations: [miconazole] Drug Allergy 01-31-20 13 Unknown, Other [facility] (11 sources) Nitrofurantoin Drug Allergy 01-27-20 22 Rash [facility] (20 sources) Clindamycin/Lincom ycin Propensity to adverse reactions to drug 01-31-20 13 Unknown, Nausea Only, GI intolerance [facility] Work Phone: (19 sources) Penicillins Drug Allergy 01-24-20 15 Shortness of Breath, Rash [facility] (20 sources) levoFLOXacin; Translations: [levofloxacin] Drug Allergy 04-09-20 22 Myalgia, Joint swelling (finding), Swelling [facility] (1 source) Ciprofloxacin Drug Allergy 03-16-[address] [facility] (1 source) Clindamycin Drug Allergy 03-16-[address] [facility] (1 source) Doxycycline Drug Allergy 05-14-[address] [facility] (3 sources) levoFLOXacin; Translations: [Levaquin] Drug Allergy 04-28-[address] [facility] (1 source) Miconazole Drug Allergy [facility] (3 sources) Nitrofurantoin; Translations: [Macrobid] Drug Allergy 04-28-[address] [facility] (1 source) Penicillins Drug allergy (disorder) 03-16-[address] [facility] (2 sources) Penicillin; Translations: [penicillin] Drug Allergy [facility] (1 source) tioconazole; Translations: [tioconazole topical] Drug Allergy 01-23-20 15 [facility] (1 source) Clindamycin Drug Allergy 12-19-19 21 [facility] (1 source) Doxycycline Drug Allergy 12-19-19 21 [facility] (1 source) Penicillins Drug allergy (disorder) 12-19-19 21 [facility] (20 sources) Nitrofurantoin Drug Allergy 10-23-19 22 GI intolerance, Hives, Itching, Rash, Swelling [facility] (20 sources) Penicillins Drug Allergy 01-31-20 13 Shortness of breath [facility] (20 sources) Tioconazole Allergy to substance 01-23-20 15 Itching, Unknown [facility] (2 sources) Miconazole Drug Allergy 09-19-19 21 BURNING / HOT [facility] (2 sources) monitstat cream Propensity to adverse reactions 07-13-19 24 Itching [facility] (20 sources) Nirmatrelvir-Riton avir Allergy to substance 01-05-20 24 GI intolerance [facility] (4 sources) Penicillin; Translations: [PENICILLIN G] Drug Allergy 03-09-20 17 Shortness Of Breath [facility] Medications Current Medications Medication Drug Class(es) Dates Sig (Normalized) Sig (Original) acetaminophen 325 mg / oxyCODONE hydrochloride 5 mg oral tablet (4 sources) Opioid Agonist Start: 05-01-2024 End: 05-06-2024 take 1 tablet by mouth every six hours for pain oxyCODONE-acetami nophen (Percocet) 5-325 MG tablet Indications: Post-operative pain Take 1 tablet by mouth every 6 (six) hours if needed for moderate pain for up to 5 days 20 tablet 05/01/2024 05/06/2024 Active Start: 02-17-2022 End: 02-24-2022 take 1-2 tablets by mouth every four hours as needed for pain oxyCODONE-acetaminophen (PERCOCET) 5-325 MG per tablet Indications: Lumbar stenosis with neurogenic claudication Take 1-2 tablets by mouth every 4 hours as needed for Pain for up to 7 days. 60 tablet 0 02/17/2022 02/24/2022 Active Start: 02-16-2022 oxyCODONE-acet aminophen (PERCOCET) 5-325 MG per tablet 1 tablet albuterol 0.83 mg/ml inhalation solution (20 sources) beta2-Adrenergic Agonist Start: 07-11-2024 take 2.5 mg by inhalation four times daily Albuterol Sulfate 2.5 mg /3 mL (0.083 %) solution for nebulization Active 2.5 MG INHALATION Four times daily July 11, 2024 12:00am Start: 03-23-2024 take 1 puff(s) by mo uth every four hours as needed albuterol HFA 90 mcg/act inhaler INHALE 1 PUFF BY MOUTH EVERY 4 HOURS NEEDED 03/23/2024 Active Start: 02-07-2024 take 1 puff(s) by in halation once as needed Albuterol Sulfate 90 mcg/actuation HFA aerosol inhaler Active 2 PUFF INHALATION Once as needed February 07, 2024 10:15am Start: 02-07-2024 End: 02-07-2024 Albuterol Sulfate 90 mcg/act uation HFA aerosol inhaler Discontinued INHALATION February 06, 2024 11:00pm February 07, 2024 10:16am Start: 04-30-2022 albuterol (PRO VENTIL,VENTOLIN) 2.5 mg /3 mL (0.083 %) nebulizer solution inhale contents of 1 vial ( 3 milliliters ) in nebulizer by mouth... (REFER TO PRESCRIPTION NOTES). 04/30/2022 Active Start: 02-16-2022 take 1 puff(s) by in halation every six hours as needed 1 puff, Inhalation, EVERY 6 HOURS PRN, Starting on 02/16/22 at 1819, Until Discontinued, Wheezing, Shortness of Breath Initiate RT Bronchodilator Protocol: No Post-op albuterol HFA (P ROVENTIL HFA, VENTOLIN HFA) 90 mcg/actuation inhaler Take 2 Puffs by mouth as needed. Active albuterol (PROVE NTIL HFA;VENTOLIN HFA) 90 mcg/actuation inhaler 2 puffs as needed. Active albuterol sulfat e HFA (PROVENTIL;VENTOLIN;PROAIR) 108 (90 Base) MCG/ACT inhaler Ventolin HFA 90 mcg/actuation aerosol inhaler 0 Active Comment on above: Take 2 Puffs by mout h as needed. azelastine hydrochloride 0.137 mg/actuat metered dose nasal spray (18 sources) Histamine-1 Receptor Antagonist Start: take 1 spray(s) nasal route twice daily Azelastine 137 mcg (0.1 %) spray,non-aerosol Active 1 SPRAY INTRANASAL Twice daily February 06, 2024 11:00pm administer into each nostril Start: 11-06-2023 End: 04-11-2024 take 2 spray(s) nasal route twice daily Azelastine HCl 137 MCG/SPRAY solution SPRAY 2 SPRAYS INTO EACH NOSTRIL TWICE A DAY 11/06/2023 04/11/2024 Discontinued Start: 08-30-2023 take 2 spray(s) nasa l route twice daily azelastine 0.1% nasal spray Use 2 Sprays in each nostril two times a day. 30 mL 11 08/30/2023 Active Comment on above: Use 2 Sprays in each nostril two times a day. baclofen 20 mg oral tablet (20 sources) gamma-Aminobutyric Acid-ergic Agonist Start: 02-07-2024 take 2 tablets by mouth once daily Baclofen 20 mg tablet Active 40 MG PO Daily February 07, 2024 10:04am Start: 02-07-2024 take 40 mg by mouth once daily Baclofen Active 40 MG PO Daily February 07, 2024 11:04am Start: 02-16-2022 take 10 mg by mouth three times daily as needed 10 mg, Oral, 3 TIMES DAILY PRN, Starting on Wed02/16/22 at 1820, Until Discontinued, Muscle spasms, Post-op Start: 12-18-2020 End: 02-07-2024 take 1 tablet by mouth once daily Baclofen 20 mg tablet Discontinued 20 MG PO Daily December 17, 2020 11:00pm February 07, 2024 10:07am Comment on above: Take 10 mg by mouth. benzonatate 200 mg oral capsule (6 sources) Non-narcotic Antitussive Start: take 1 capsule by mouth three times daily Benzonatate 200 mg capsule Active 200 MG PO Three times daily July 11, 2024 12:00am Start: 02-07-2024 End: 07-11-2024 take 1 capsule by mouth three times daily as needed for cough Benzonatate 100 mg capsule Discontinued 100 MG PO Three times daily as needed for cough 30 10 February 06, 2024 11:00pm July 11, 2024 10:07am Start: 03-27-2022 take 1 capsule by mo [facility] three times daily as needed benzonatate (Tessalon) 200 MG capsule Take 200 mg by mouth 3 (three) times a day as needed. 0 03/27/2022 Active biotin 10 mg oral tablet (1 source) take 1 tablet by mouth at bedtime Biotin 77140 MCG TABS Take 1 tablet by mouth in the morning and at bedtime 0 Active Cranberry (20 sources) Non-Standardized Food Allergenic Extract, Non-Standardized Plant Allergenic Extract Start: 02-07-2024 take 1 capsule by mouth twice daily at mealtime Cranberry 500 mg capsule Active 500 MG PO Twice daily February 06, 2024 11:00pm administer with meals Start: 02-07-2024 take 500 mg by mouth twice daily at mealtime Cranberry Active 500 MG PO Twice daily February 07, 2024 12:00am administer with meals Start: 06-28-2023 cranberry 500 mg capsule 2 tablets in the morning. 06/28/2023 Active Start: 06-28-2023 Cranberry 500 mg cap 06/28/2023 Active Start: 06-28-2023 cranberry 500 mg capsule 06/28/2023 Active Start: 06-28-2023 cranberry 500 mg capsule Start: 06-28-2023 Cranberry 500 mg cap Cranberry 250 MG capsule Active diphenhydrAMINE hydrochloride 25 mg oral tablet (1 source) Histamine-1 Receptor Antagonist Start: 07-11-2024 take 1 tablet by mouth once daily at bedtime as needed Diphenhydramine Hcl (Benadryl Allergy) 25 mg tablet Active 25 MG PO Daily at bedtime as needed July 11, 2024 12:00am esomeprazole 40 mg delayed release oral capsule (20 sources) Proton Pump Inhibitor Start: 10-19-2009 take 1 capsule by mouth once daily Esomeprazole Magnesium (Nexium) 40 mg Capsule,Delayed Release(Dr/Ec) Active 40 MG PO Daily May 17, 2018 12:00am take 40 mg by mouth once daily e someprazole Magnesium (NEXIUM) 40 MG PACK Take 40 mg by mouth daily. 0 Active Comment on above: Take 40 mg by mouth. estradiol 0.1 mg/ml vaginal cream (20 sources) Estrogen Start: 06-21-2024 estradiol (Estrace) 0.1 MG/GM vaginal cream Indications: Vaginal atrophy , Postmenopausal HRT (hormone replacement therapy) 0.5 g vaginally 2-3X weekly. 42.5 g 06/21/2024 Active Start: 06-24-2023 estradiol (EST RACE) 0.01 % (0.1 mg/gram) vaginal cream Place a pea size amount in the vaginal area three times a week 42.5 g 3 06/24/2023 Active Start: 05-05-2023 estradiol (Est race) 0.1 MG/GM vaginal cream Indications: Postmenopausal HRT (hormone replacement therapy) Vaginal 42.5 g 05/05/2023 Active Start: 05-17-2018 End: 07-10-2023 estradiol (ESTRACE) 0.01 % ( 0.1 mg/gram) vaginal cream 1 g. 05/17/2018 07/10/2023 Discontinued Start: 05-17-2018 Estradiol (Est race) 0.01 % (0.1 mg/gram) Cream Active 1 GM VAGINAL every week as needed for Skin Irritation May 17, 2018 12:00am Start: 10-10-2015 Estrace = 0.01 %, Refills(s) 0, Prophylaxis Start Date: 10/10/15 Status: Ordered Comment on above: [address] pea size dal[place] unt in the vaginal area three times a week etodolac 400 mg oral tablet (2 sources) Nonsteroidal Anti-inflammatory Drug Start: 4 etodolac (Lodine) 400 MG tablet every 12 (twelve) hours 0 07/06/2023 Active famotidine 20 mg oral tablet (2 sources) Histamine-2 Receptor Antagonist Start: 5 take 1 tablet by mouth once daily at bedtime Famotidine 20 mg tablet Active 20 MG PO Daily at bedtime July 11, 2024 12:00am Start: 08-30-2023 End: 08-30-2023 famotidine 20 mg tab(s) (PEP STEFANIE) ferrous sulfate 325 mg oral tablet (20 sources) Start: 04-14-2022 take 1 tablet by mouth at mealtime ferrous sulfate 325 (65 Fe) MG tablet Take 325 mg by mouth in the morning. Take with meals. 04/14/2022 Active Start: 04-14-2022 take 1 tablet by landy th once daily at breakfast FeroSuL 325 mg (65 mg iron) tablet Take 1 tablet (325 mg total) by mouth daily with breakfast. 08/03/2022 Active Start: 04-14-2022 End: 04-09-2023 take 1 tablet by mouth once daily ferrous sulfate 325 mg (65 mg iron) tablet Take 1 tablet by mouth once daily. 04/14/2022 Active Comment on above: Take 1 tablet by landy th daily with breakfast. Take 1 tablet by landy th once daily. fexofenadine hydrochloride 180 mg oral tablet (8 sources) Histamine-1 Receptor Antagonist fexofenadine (DINA ALLERGY) 180 mg tablet as needed. Active Comment on above: as needed. fluticasone propionate 0.05 mg/actuat metered dose nasal spray (20 sources) Corticosteroid Start: 07-13-19 take 1 spray(s) nasal route once daily Fluticasone Propionate 50 mcg/actuation spray,suspension Active 1 SPRAY INTRANASAL Daily July 13, 2023 12:00am administer into each nostril Start: 06-22-2023 take 1 spray(s) nasa l route twice daily as needed fluticasone (Flonase) 50 MCG/ACT nasal spray USE 1 SPRAY IN EACH NOSTRIL TWICE DAILY NEEDED 06/22/2023 Active Start: 06-23-2022 take 2 spray(s) nasa l route once as needed fluticasone propionate (FLONASE) 50 mcg/actuation nasal spray Administer 2 sprays into each nostril once as needed. 06/23/2022 Active Start: 06-23-2022 take 2 spray(s) nasa l route in the morning fluticasone propionate (FLONASE) 50 mcg/actuation nasal spray Administer 2 sprays into each nostril in the morning. 06/23/2022 Active Start: 02-16-2022 take 2 spray(s) nasa l route once daily 2 spray, Each Nostril, DAILY, First dose on 02/16/22 at 1845, Until Discontinued Please select a reason the therapeutic interchange was not accepted: Okay for Pharmacy to Substitute Post-op fluticasone prop ionate (FLONASE NASAL) Use in the nose as needed. Active fluticasone prop ionate (FLONASE NASAL) Use in the nose as needed. 0 Active Comment on above: Use in the nose as n eeded. furosemide 20 mg oral tablet (2 sources) Loop Diuretic Start: 2023 take 1 tablet by mouth once daily Furosemide 20 mg tablet Active 20 MG PO Daily February 06, 2024 11:00pm hydrocortisone 10 mg/ml / neomycin 3.5 mg/ml / polymyxin b 86599 unt/ml otic suspension (3 sources) Aminoglycoside Antibacterial, Polymyxin-class Antibacterial, Corticosteroid Start: 2021 End: 2023 xhmjryir-uaachsevw-paby ocortisone (Cortisporin) 3.5-63950-1 otic suspension instill 4 drops INTO AFFECTED [...] 07/12/2023 Discontinued ibuprofen 800 mg oral tablet (20 sources) Nonsteroidal Anti-inflammatory Drug Start: 2015 End: 2023 ibuprofen 800 MG tablet 12/31/2023 Active take 1 tablet by landy th every six hours as needed ibuprofen (MOTRIN) 800 mg tablet Take 800 mg by mouth every 6 hours as needed. Active End: 02-17-2022 take 1 tablet by mouth every eight hours as needed ibuprofen (ADVIL;MOTRIN) 800 MG tablet Take 800 mg by mouth every 8 hours as needed. 0 02/17/2022 Discontinued (Stop Taking at Discharge) Comment on above: Take 800 mg by mouth every 6 hours as needed. iv contrast (will be provided with radiology test) (1 source) Start: 10-07-2022 End: 10-08-2022 iv contrast (will be provided with radiology [...] the CT contrast administration guidelines link. Lactobacillus (20 sources) Start: 06-23-2023 Lactobacillus (Acidophilus Probiotic) 0.5 MG tablet 06/23/2023 Active Start: 06-23-2023 Lactobacillus (Acidophilus Probiotic) 0.5 MG tablet lactobacillus acidophilus [id number] unt / pectin 10 mg oral capsule (11 sources) Start: 06-28-2023 acidophilus-pe ctin, citrus (PROBIOTIC ACIDOPHILUS-PECTIN) 100 million cell-10 mg cap 06/28/2023 Active Start: 06-28-2023 take 1 capsule by [facility] once daily at breakfast acidophilus-pectin, citrus 100 million cell-10 mg capsule Take 1 capsule by mouth daily with breakfast. 06/28/2023 Active Lactobacillus Combination No .4 (Senior Probiotic) 15 billion cell capsule (2 sources) Start: 02-07-2024 Lactobacillus Combination No.4 (Senior Probiotic) 15 billion cell capsule Active 92689 MMU CELLS PO Daily February 06, 2024 11:00pm administer with a meal Start: 02-07-2024 Lactobacillus Combination No.4 (Senior Probiotic) 15 billion cell capsule Active 87515 MMU CELLS PO Daily February 07, 2024 12:00am administer with a meal levocetirizine dihydrochloride 5 mg oral tablet (13 sources) Histamine-1 Receptor Antagonist Start: 02-07-2024 End: 07-11-2024 take 1 tablet by mouth once daily Levocetirizine (24hr Allergy Relief) 5 mg tablet Active 5 MG PO Daily February 06, 2024 11:00pm End: 04-11-2024 take 2.5 mg by mouth in the evening levocetirizine (Xyzal) 2.5 MG/5ML solution Take 2.5 mg by mouth in the evening 04/11/2024 Discontinued lisinopril 20 mg oral tablet (20 sources) Angiotensin Converting Enzyme Inhibitor Start: 10-10-2015 End: 02-17-2022 take 1 tablet by mouth once daily Lisinopril 20 mg Tablet Active 20 MG PO Daily May 17, 2018 12:00am Comment on above: lisinopril 20 mg tab let Take 1 tablet every day by oral route. loratadine 10 mg oral tablet (2 sources) Start: 07-13-2023 take 1 tablet by mouth once daily Loratadine (Claritin) 10 mg tablet Active 10 MG PO Daily July 13, 2023 12:00am Magnesium (5 sources) Start: 07-11-2024 magnesium Acti ve PO once at bedtime July 11, 2024 12:00am MAGNESIUM PO Jose Carlos e by mouth Active Methenamine (20 sources) Start: 07-13-2023 Methenamine Hi ppurate 1 gram tablet Active 1 GM PO July 13, 2023 12:00am Start: 07-13-2023 Methenamine Hi ppurate Active 1 GM PO July 13, 2023 1:00am Start: 06-23-2023 take 1 tablet by landy th in the morning methenamine hippurate (Hiprex) 1 g tablet Take 1 tablet by mouth in the morning and 1 tablet in the evening. Take with meals. 06/23/2023 Active Start: 06-05-2021 End: 04-14-2022 take 1 tablet by mouth twice daily at mealtime Methenamine Hippurate (HIPREX) 1 gram tablet Take 1 tablet by mouth twice daily with meals. 60 tablet 11 06/05/2021 04/14/2022 Discontinued Comment on above: Take 1 tablet by landy th twice daily with meals. Take 1 tablet by landy th two times a day with meals. morphine (PF) injection 2 mg (1 source) Start: morphine (PF) injection 2 mg Multiple Vitamin (Daily Vitamin) tablet (20 sources) take 1 tablet by mouth once daily Multiple Vitamin (Daily Vitamin) tablet Take 1 tablet by mouth Daily Active OXcarbazepine 150 mg oral tablet (1 source) Anti-epileptic Agent take 1 tablet by mouth twice daily OXcarbazepine (TRILEPTAL) 150 MG tablet Take 150 mg by mouth 2 times daily 0 Active phentermine hydrochloride 37.5 mg oral tablet (20 sources) Sympathomimetic Amine Anorectic Start: ADIPEX-P 37.5 mg tablet Take 37.5 mg by mouth once daily. Takes 06/0101/28/2024 Active Promethazine (1 source) Phenothiazine Start: promethazine (PHENERGAN) tablet 12.5 mg Sennosides (Senokot) 8.6 mg Tablet (4 sources) Start: 018 take 8 tablets by mouth at bedtime Sennosides (Senokot) 8.6 mg Tablet Active 8 TAB PO Bedtime May 17, 2018 12:00am Start: 05-17-2018 take 8 tablets by mo [facility] at bedtime Sennosides (Senokot) 8.6 mg Tablet Active 8 TAB PO Bedtime May 17, 2018 1:00am sennosides, detention 8.6 mg oral tablet (20 sources) Start: 10-10-2015 take 8.6 mg by mouth once daily Senokot 8.6 mg, Oral, Daily, Refills(s) 0, Constipation Start Date: 10/10/15 Status: Ordered traMADol hydrochloride 50 mg oral tablet (20 sources) Opioid Agonist Start: 12-23-2022 End: 08-24-2023 take 1 tablet by mouth twice daily as needed for pain traMADoL (ULTRAM) 50 mg tablet Indications: Disorder of sacrum Take 1 tablet (50 mg total) by mouth 2 (two) times a day as needed for pain. 14 tablet 08/24/2023 Active Start: 12-18-2020 take 1 tablet by landy three times daily Tramadol 50 mg Tablet Active 50 MG PO Three times daily December 17, 2020 11:00pm traMADol (Ultram ) 50 MG tablet TAKE 1 TABLET BY MOUTH ONCE TO TWICE A DAY NEEDED FOR 7 DAYS Active take 1 tablet by landy th every six hours as needed for pain traMADol (ULTRAM) 50 MG tablet Take 50 mg by mouth every 6 hours as needed for Pain. 0 Active traZODone hydrochloride 100 mg oral tablet (20 sources) Serotonin Reuptake Inhibitor Start: 10-19-2009 take 1 tablet by mouth once daily at bedtime Trazodone 100 mg Tablet Active 100 MG PO Daily at bedtime May 17, 2018 12:00am Comment on above: Take 100 mg by mouth daily at bedtime. Completed/Discontinued Medications Medication Drug Class(es) Dates Sig (Normalized) Sig (Original) acetaminophen 500 mg oral tablet (5 sources) Start: 02-16-2022 End: 02-16-2022 acetaminophen (TYLENOL) tablet 1,000 mg take 1 tablet by landy th every six hours as needed acetaminophen (Tylenol) 500 MG tablet Ta ke 500 mg by mouth every 6 (six) hours if needed Active acetaminophen 325 mg / HYDROcodone bitartrate 5 mg oral tablet (2 sources) Opioid Agonist Start: 02-23-2023 End: 08-30-2023 take 1-2 tablets by mouth every four to six hours as needed for pain HYDROcodone-acetaminophen (NORCO) 5-325 mg per tablet 1-2 [...] amoxicillin 250 mg oral liqu id (AMOXIL) calcium chloride 0.0014 meq/ml / potassium chloride 0.004 meq/ml / sodium chloride 0.103 meq/ml / sodium lactate 0.028 meq/ml injectable solution (1 source) Start: 02-16-2022 End: 02-16-2022 lactated ringers infusion cefdinir 300 mg oral capsule (10 sources) Cephalosporin Antibacterial Start: 09-28-2022 End: 08-30-2023 cefdinir (OMNICEF) 300 mg capsule 09/28/2022 08/30/2023 Discontinued (Course of therapy completed) Start: 09-28-2022 take 2 capsules by m [...] Wed02/16/22 at 2200, For 3 doses, Post-op diclofenac potassium 50 mg oral tablet (3 sources) Nonsteroidal Anti-inflammatory Drug Start: 08-24-2023 End: 04-11-2024 take 1 tablet by mouth in the morning, then take 1 tablet by mouth at bedtime diclofenac (CATAFLAM) 50 mg tablet Take 1 tablet (50 mg total) by mouth in the morning and 1 tablet (50 mg total) before bedtime. 60 tablet 1 08/24/2023 04/11/2024 Discontinued (Therapy completed) docusate sodium 50 mg / sennosides, detention 8.6 mg oral tablet (5 sources) Start: 02-17-2022 End: 04-11-2024 take 1 tablet by mouth in the morning sennosides-docusa te sodium (SENOKOT-S) 8.6-50 mg Take 1 tablet by mouth in the morning and 1 tablet before bedtime. 02/17/2022 04/11/2024 Discontinued (Duplicate Listing) Start: 02-16-2022 take 1 tablet by landy th twice daily sennosides-docusate sodium (SENOKOT-S) 8.6-50 MG tablet Take 1 tablet by mouth 2 times daily 60 tablet 0 02/17/2022 Active fluconazole 150 mg oral tablet (17 sources) Azole Antifungal Start: 06-03-2023 End: 04-11-2024 fluconazole (Diflucan) 150 MG tablet if needed 06/03/2023 04/11/2024 Discontinued Comment on above: as needed. FLUTICASONE PROPIONATE, INHAL, IN (12 sources) End: 04-11-2024 FLUTICASONE PROPIONATE, INHAL, IN Administer into affected nostril(s). 04/11/2024 Discontinued FLUTICASONE PROP IONATE, INHAL, IN Administer into affected nostril(s). Active FLUTICASONE PROP IONATE, INHAL, IN Administer into affected nostril(s). 0 Active gabapentin 300 mg oral capsule (1 source) [...] Wed02/16/22 at 1819, Until Discontinued, Itching, Post-op methocarbamol 750 mg oral tablet (9 sources) Muscle Relaxant Start: 02-03-2023 End: 04-11-2024 Methocarbamol 750 mg tablet Discontinued 750 MG PO July 13, 2023 12:00am February 07, 2024 10:06am Comment on above: Take 1 tablet by landy every 12 hours. methylPREDNISolone (3 sources) Corticosteroid Start: 09-01-2022 End: 04-11-2024 methylPREDNISolone (MEDROL, CELIA,) 4 mg tablet follow package directions 21 tablet 09/01/2022 04/11/2024 Discontinued (Therapy completed) Start: 09-01-2022 methylPREDNISo lone (MEDROL, CELIA,) 4 mg tablet follow package directions 21 tablet 09/01/2022 Active Start: 09-01-2022 methylPREDNISo lone (MEDROL, CELIA,) 4 mg tablet follow package directions 21 tablet 0 09/01/2022 Active mometasone furoate 0.05 mg/actuat metered dose nasal spray (19 sources) Corticosteroid Start: 12-18-2020 End: 08-30-2023 mometasone (NASONEX) 50 mcg/actuation nasal spray Daily 0 12/18/2020 08/30/2023 Discontinued (Course of therapy completed) Start: 12-18-2020 End: 02-07-2024 Mometasone (Nasonex) 50 mcg/ actuation [place],Non-Aerosol Discontinued 2 SPRAY INTRANASAL Daily December 17, 2020 11:00pm February 07, 2024 10:07am End: 04-11-2024 mometasone (Nasonex) 50 MCG/ ACT nasal spray 2 sprays. 04/11/2024 Discontinued take 2 spray(s) nasa l route once daily mometasone (NASONEX) 50 MCG/ACT nasal spray 2 sprays by Each Nostril route daily 0 Active Comment on above: Daily nystatin 100 unt/mg / triamcinolone acetonide 0.001 mg/mg topical ointment (9 sources) Polyene Antifungal, Corticosteroid Start: 01-05-20 End: 04-11-20 nystatin-triamcinolo ne (Mycolog II) ointment Indications: Vaginal irritation Apply topically 2 (two) times a day 15 g 2 01/05/2024 04/11/2024 Discontinued One A Day Women's Complete (1 source) Start: 02-08-20 One A Day Women's Complete Oral, Daily Start Date: 02/07/21 Status: Ordered pantoprazole 40 mg delayed release oral tablet (1 source) Proton Pump Inhibitor Start: 02-17-20 take 40 mg by mouth once daily 40 mg, Oral, DAILY, First dose on Wed02/16/22 at 1845, Until Discontinued Do not crush or break. Substitu mirtha for esomeprazole Post-op polyethylene glycol 3350 31481 mg powder for oral solution (1 source) Osmotic Laxative Start: 02-17-20 17 g, Oral, DAILY, First dose on Wed02/16/22 at 1845, Until Discontinued, Post-op predniSONE 20 mg oral tablet (2 sources) Start: 08-30-19 End: 04-01-20 24 predniSONE 40 mg tab(s) (DELTASONE) Start: 10-10-2022 [...] needed 5-40 mL, IntraVENous, PRN, Starting on 02/16/22 at 1819, Until Discontinued, Line Care, After [...] mg / trimethoprim 80 mg oral tablet (19 sources) Dihydrofolate Reductase Inhibitor Antibacterial, Sulfonamide Antimicrobial Start: 11-07-2021 End: 08-30-2023 sulfamethoxazole-trimethopri m (BACTRIM,SEPTRA) 400-80 mg per tablet Take by mouth once daily. 11/07/2021 08/30/2023 Discontinued (Course of therapy completed) Start: 12-18-2020 End: 02-07-2024 take 1 tablet by mouth once daily Sulfamethoxazole-Trimethoprim (Bactrim D s) 800-160 mg tablet Discontinued 1 TAB PO Daily December 17, 2020 11:00pm February 07, 2024 10:06am take 1 tablet by landy th once sulfamethoxazole-trimethoprim (BACTRIM DS;SEPTRA DS) 800-160 MG per tablet Take 1 tablet by mouth once 0 Active Comment on above: Take 1 tablet by landy th once daily. Take by mouth once d aily. tiZANidine 4 mg oral tablet (7 sources) Central alpha-2 Adrenergic Agonist Start: 3 End: take 1 tablet by mouth three times daily as needed tiZANidine (ZANAFLEX) 4 mg tablet Take 1 tablet (4 mg total) by mouth 3 (three) times a day as needed. 07/07/2022 04/11/2024 Discontinued (Therapy completed) Start: 02-16-2022 End: 02-16-2022 tiZANidine (ZANAFLEX) tablet 4 mg triamcinolone acetonide 1 mg/ml topical cream (12 sources) Corticosteroid Start: 06-30-2023 End: 04-11-2024 triamcinolone (Kenalog) 0.1 % cream Indications: Atrophic vaginitis Apply topically 2 (two) times a day 15 g 1 06/30/2023 04/11/2024 Discontinued vancomycin (VANCOCIN) 1,500 mg in dextrose 5 % 250 mL IVPB (1 source) Start: 02-16-2022 End: 02-17-2022 1,500 mg, IntraVENous, EVERY 12 HOURS, 1 dose, First dose on 02/16/22 at 1845 Antimicrobial Indications: Surgical Prophylaxis Post-op Problems Active Problems Problem Classification Problem Date Documented Date Episodic/Chronic Acquired foot deformities (20 sources) Acquired right hallux valgus; Translations: [Hallux valgus (acquired), right foot] Onset: 01-05-2024 01-05-2024 Chronic Asthma (20 sources) Reactive airway disease; Translations: [Unspecified asthma, uncomplicated] Onset: 01-05-2024 07-13-2023 Chronic Chronic obstructive pulmonary disease and bronchiectasis (1 source) Bronchitis 08-11-2013 Episodic Coagulation and hemorrhagic disorders (20 sources) Platelet count below reference range; Translations: [...] unspecified; Translations: [HYPERLIPIDEMIA UNSPECIFIED] Onset: 09-04-2022 Chronic Diverticulosis and diverticulitis (20 sources) Diverticulosis of colon; Translations: [Diverticulosis of large intestine without perforation or abscess without bleeding] Onset: 01-05-2024 01-05-2024 Chronic Endometriosis (1 source) Endometriosis (clinical) 08-11-2013 Chronic Esophageal disorders (20 sources) Gastroesophageal reflux disease; Translations: [Gastro-esophageal reflux disease without esophagitis] Onset: 10-09-2022 12-18-2020 Chronic Essential hypertension (20 sources) Hypertensive disorder; Translations: [Essential (primary) hypertension] Onset: 08-29-2022 Chronic Genitourinary symptoms and ill-defined conditions (15 sources) Personal history of urinary (tract) infections; Translations: [Personal history of other diseases of urinary system] Onset: 11-12-2021 Episodic Menopausal disorders (2 sources) Atrophy of vagina; Translations: [Postmenopausal atrophic vaginitis] Chronic Menopausal disorders (1 source) Postmenopausal state; Translations: [Hormone replacement therapy] 06-21-2024 Episodic Osteoarthritis (20 sources) Arthritis; Translations: [Osteoarthritis of left hip joint] Onset: 04-07-2013 02-07-2021 Chronic Osteoporosis (20 sources) Osteoporosis; Translations: [Age-related osteoporosis without current pathological fracture] Onset: 01-05-2024 01-05-2024 Chronic Other acquired deformities (1 source) Spondylolisthesis, site unspecified; Translations: [Spondylolisthesis, site unspecified] Onset: 01-11-2023 Episodic Other aftercare (1 source) Other terminal system operator (current) drug therapy; Translations: [OTH FIBERGLASS TUBE MOLDER CURRENT DRUG THERAPY] Onset: 10-09-2022 Episodic Other and unspecified benign neoplasm (4 sources) History of polyp of colon; Translations: [Personal history of colonic polyps] 12-18-2020 Episodic Other connective tissue disease (1 source) Presence of unspecified artificial knee joint; Translations: [PRESENCE UNS ARTIFICIAL KNEE JOINT] Onset: 10-09-2022 Chronic Other connective tissue disease (6 sources) History of total hip arthroplasty; Translations: [Presence of left artificial hip joint] 05-15-2024 Chronic Other connective tissue disease (2 sources) History of left total knee replacement; Translations: [Presence of left artificial knee joint] 02-09-2024 Chronic Other connective tissue disease (1 source) [...] Onset: 10-09-2022 Episodic Other lower respiratory disease (3 sources) Chronic cough; Translations: [Chronic cough] 07-12-2023 Episodic Other nervous system disorders (20 sources) Idiopathic peripheral neuropathy; Translations: [Hereditary and idiopathic neuropathy, unspecified] Onset: 01-05-2024 01-05-2024 Chronic Other nervous system disorders (20 sources) Idiopathic progressive polyneuropathy; Translations: [Idiopathic progressive neuropathy] Onset: 01-05-2024 01-05-2024 Chronic Other nervous system disorders (20 sources) Difficulty walking; Translations: [Difficulty in walking, not elsewhere classified] Onset: 05-04-2024 05-04-2024 Chronic Other nervous system disorders (2 sources) Numbness; Translations: [Anesthesia of skin] 07-12-2023 Episodic Other nervous system disorders (2 sources) Paresthesia; Translations: [Paresthesia of skin] 07-12-2023 Episodic Other nervous system disorders (1 source) Postoperative pain ; Translations: [Other acute postprocedural pain] 05-01-2024 Episodic Other non-traumatic joint disorders (4 sources) Pain in left ankle and joints of left foot; Translations: [PAIN IN LEFT ANKLE] Onset: 08-05-2022 Episodic Other non-traumatic joint disorders (1 source) Pain in left hip; Translations: [Pain in left hip] Onset: 05-01-2024 Episodic Other non-traumatic joint disorders (20 sources) Hip pain; Translations: [Other acute postprocedural pain] Onset: 08-24-2023 05-04-2024 Episodic Other screening for suspected conditions (not [...] Spondylosis; intervertebral disc disorders; other back problems (20 sources) Lumbosacral spondylosis without myelopathy; Translations: [Spondylosis without myelopathy or radiculopathy, lumbosacral region] Onset: 03-09-2017 01-05-2024 Chronic Unclassified (1 source) PERSONAL HISTORY OF COVID-19; [...] Problem Date Documented Date Episodic/Chronic Abdominal pain (7 sources) Left lower quadrant pain; Translations: [Generalized abdominal pain] Onset: 12-26-2021 Episodic Acquired foot deformities (4 sources) Valgus deformity, not elsewhere classified, left ankle; Translations: [VALGUS DEFORMITY NEC LEFT ANKLE] Onset: 11-03-2021 Episodic Allergic reactions (7 sources) Allergic urticaria; Translations: [Allergy to penicillin] Onset: 10-22-2021 Episodic Deficiency and other anemia (20 sources) Iron deficiency anemia secondary to inadequate dietary iron intake; Translations: [Other iron deficiency anemias] Onset: 04-10-2022 Episodic E Codes: Adverse effects of medical drugs (1 source) Adverse effect of other viral vaccines, initial encounter; Translations: [ADVERS EFF OTH VIRAL VACC INIT ENC] Onset: 04-30-2022 Episodic Influenza (1 source) Influenza due to other identified influenza virus with other respiratory manifestations; Translations: [FLU D/T OTH ID FLU VIR OTH RSP MANF] Onset: 04-30-2022 Episodic Lymphadenitis (20 sources) Mediastinal lymphadenopathy; Translations: [Localized enlarged lymph nodes] Onset: 01-15-2021 01-15-2021 Episodic Malaise and fatigue (1 source) Weakness; Translations: [WEAKNESS] Onset: 01-30-2022 Episodic Other acquired deformities (20 sources) Leg length inequality; Translations: [Unequal limb length (acquired), unspecified site] Onset: 01-05-2024 01-05-2024 Episodic Other connective tissue disease (20 sources) Enthesopathy of ankle AND/OR tarsus; Translations: [Other enthesopathy of unspecified foot and ankle] Onset: 08-19-2009 07-21-2018 Episodic Other connective tissue disease (20 sources) Tibialis tendinitis; Translations: [Posterior tibial tendinitis, [...] Onset: 10-20-2021 Episodic Other connective tissue disease (3 sources) Trochanteric bursitis of left hip; Translations: [Trochanteric bursitis, left hip] Onset: 03-09-2017 03-09-2017 Episodic Other diseases of kidney and ureters (1 source) Cyst of kidney, acquired; Translations: [CYST OF KIDNEY ACQUIRED] Onset: 11-26-2021 Episodic Other fractures (20 sources) Compression fracture of lumbar spine; Translations: [Collapsed vertebra, not elsewhere classified, lumbar region, subsequent encounter for fracture with routine healing] Onset: 01-05-2024 01-05-2024 Episodic Other hematologic conditions (20 sources) Cytopenia; Translations: [Disease of blood and blood-forming organs, unspecified] Onset: 01-15-2021 01-15-2021 Episodic Other lower respiratory disease (20 sources) Multiple nodules of lung; Translations: [Other [...] Onset: 01-30-2022 Episodic Other nervous system disorders (2 sources) Trigeminal neuralgia; Translations: [Trigeminal neuralgia] Onset: 04-07-2013 02-07-2024 Episodic Other non-traumatic joint disorders (5 sources) Pain in left knee; Translations: [Pain in joint, lower leg] Onset: 05-31-2017 02-09-2024 Episodic Other upper respiratory disease (20 sources) Deviated nasal septum; Translations: [Deviated nasal septum] Onset: 01-05-2024 01-05-2024 Episodic Other upper respiratory disease (20 sources) Hypertrophy of nasal turbinates; Translations: [Hypertrophy of nasal turbinates] Onset: 01-05-2024 01-05-2024 Episodic Residual codes; unclassified (20 sources) Insomnia; Translations: [Insomnia, unspecified] Onset: 04-07-2013 01-05-2024 Episodic Spondylosis; intervertebral disc disorders; other back problems (20 sources) Spinal stenosis of lumbar region; Translations: [Spinal stenosis, lumbar region with neurogenic claudication] Onset: 03-09-2017 Episodic Unclassified (1 source) COUGH, UNSPECIFIED; Translations: [COUGH, UNSPECIFIED] Onset: 04-28-2022 Unclassified (1 source) cervical pre cancer cell 10-19-2009 Unclassified (3 sources) Preprocedural examination done 04-11-2024 Urinary tract infections (20 sources) Recurrent urinary tract infection; Translations: [Urinary tract infection, site not specified] Onset: 11-11-2021 Episodic Results Test Name Value Interpretation Reference Range Facility XR Hip - left 3 Viewson 05-31 Imaging Result: AP and lateral of left hip: Acceptable position and alignment of left total hip arthroplasty. There was no evidence of loosening of the acetabular cup or femoral stem. Femoral head was well centered in the acetabular liner without evidence of asymmetric or accelerated wear. There was no gross evidence of fracture and/or dislocation. Impression: Unremarkable left total hip arthroplasty. [facility] Radiology Study observation (narrative) [facility] HGB AND HCTon 05-03-2024 Hematocrit (Bld) [Volume fraction] 29.2 % Low 35-47 [facility] Comment on above: Performed By: #### H H #### [facility] ([id number]) [address] [place] [address] Hemoglobin (Bld) [Mass/Vol] 9.9 g/dL Low 11.7-15.5 [facility] Comment on above: Performed By: #### H H #### [facility] ([id number]) [address] [place] [id number] HGB AND HCTon 05-02-2024 Hematocrit (Bld) [Volume fraction] 38.3 % Normal 35-47 [facility] Comment on above: Performed By: #### H H #### [facility] ([id number]) [address] [place] [address] Hemoglobin (Bld) [Mass/Vol] 12.7 g/dL Normal 11.7-15.5 [facility] Comment on above: Performed By: #### H H #### [facility] ([id number]) [address] [place] [address] XR HIP LT 2-3 VIEWS W OR WO PELVISon 05-02-2024 XR HIP LT 2-3 VIEWS W OR WO PELVIS XR HIP LT 2-3 VIEWS W OR WO PELVIS XR HIP LT 2-3 VIEWS W OR WO PELVIS HISTORY: Hip replacement. COMPARISON: 04/11/2024. IMPRESSION: 1. Status post left-sided hip replacement, no complication. Expected soft tissue gas, swelling. Finalized by Scott Hale MD on 05/02/2024 11:41 AM Normal [facility] Bacteria identified Cx Nom ( U)on 04-12-2024 Interpretation and review of laboratory results Abnormal [facility] Service comment (Unsp spec) [Interp] 1000 ORGANISMS/ML GRAM NEGATIVE RODS CALL MICROBIOLOGY IF FURTHER WORK DESIRED. ISOLATES HELD FOR 7 DAYS PAST FINAL DATE. Abnormal [facility] BASIC METABOLIC PANLon 04-11 Anion gap [Moles/Vol] 9 mmol/L Normal 5-15 [facility] Comment on above: Performed By: #### C BCA, BMP #### [facility] ([id number]) [address], [address] [place] [address] Calcium [Mass/Vol] 8.9 mg/dL Normal 8.5-10.5 [facility] Comment on above: Performed By: #### C BCA, BMP #### [facility] ([id number]) [address], [address] [place] [address] Chloride [Moles/Vol] 106 mmol/L Normal 98-109 [facility] Comment on above: Performed By: #### C BCA, BMP #### [facility] ([id number]) [address], [address] [place] [address] CO2 [Moles/Vol] 26 mmol/L Normal 22-32 [facility] Comment on above: Performed By: #### Freda BCA, BMP #### [facility] ([id number]) [address], [address] [place] [address] Creatinine [Mass/Vol] 0.82 mg/dL Normal 0.40-1.00 [facility] Comment on above: Result Comment: METH OD TRACEABLE TO IDMS STANDARD Performed By: #### C BCA, BMP #### [facility] ([id number]) [address], [address] [place] [address] GFR/1.73 sq M.predicted among non-blacks MDRD (S/P/Bld) [Vol rate/Area] 78 mL/min/{1.73_m2} Normal >59 [facility] Comment on above: Result Comment: Reported eGFR is based on the CKD-EPI 2020 equation that does not use a race coefficient. Performed By: #### C BCA, BMP #### [facility] ([id number]) [address], [address] [place] [address] Glucose [Mass/Vol] 98 mg/dL Normal 65-99 [facility] Comment on above: Performed By: #### C BCA, BMP #### [facility] ([id number]) [address], [address] [place] [address] Potassium [Moles/Vol] 4.1 mmol/L Normal 3.5-5.0 [facility] Comment on above: Performed By: #### C BCA, BMP #### [facility] ([id number]) [address], [address] [place] [address] Sodium [Moles/Vol] 141 mmol/L Normal 134-146 [facility] Comment on above: Performed By: #### C BCA, BMP #### [facility] ([id number]) [address], [address] [place] [address] Urea nitrogen [Mass/Vol] 11 mg/dL Normal 5-27 [facility] Comment on above: Performed By: #### C BCA, BMP #### [facility] ([id number]) [address], [address] [place] [address] Basic Metabolic Panelon 11- Anion gap [Moles/Vol] 9 mmol/L 5 - 15 mmol/L [facility] Calcium [Mass/Vol] 8.9 mg/dL 8.5 - 10. 5 mg/dL [facility] Chloride [Moles/Vol] 106 mmol/L 98 - 10 9 mmol/L [facility] CO2 [Moles/Vol] 26 mmol/L 22 - 32 mmol/L [facility] Creatinine [Mass/Vol] 0.82 mg/dL 0.40 - 1.00 mg/dL [facility] Comment on above: METHOD TRACEABLE TO IDMS STANDARD eGFR (CKD-EPI)non-race dependent 78 - PINF [facility] Comment on above: Reported eGFR is based on the CKD-EPI 2020 equation that does not use a race coefficient. Glucose [Mass/Vol] 98 mg/dL 65 - 99 mg/dL [facility] Potassium [Moles/Vol] 4.1 mmol/L 3.5 - 5.0 mmol/L [facility] Sodium [Moles/Vol] 141 mmol/L 134 - 146 mmol/L [facility] Urea nitrogen [Mass/Vol] 11 mg/dL 5 - 27 mg/dL [facility] CBC AND AUTO DIFFon 04-11-20 24 ABSOLUTE BASOPHIL 0.1 X10E9/L Normal 0.0-0.2 [facility] Comment on above: Performed By: #### C BCA, BMP #### [facility] ([id number]) [address], [address] [place] [address] ABSOLUTE NEUTROPHIL 2.7 X10E9/L Normal 1.5-6.6 [facility] Comment on above: Performed By: #### C BCA, BMP #### [facility] ([id number]) [address] [place] [address] Basophils/100 WBC (Bld) 0.8 % Normal [facility] Comment on above: Performed By: #### C BCA, BMP #### [facility] ([id number]) [address], [address] [place] [address] Eosinophils (Bld) [#/Vol] 0.1 10*3/uL Normal 0.0-0.4 [facility] Comment on above: Performed By: #### C BCA, BMP #### [facility] ([id number]) [address], [address] [place] [address] Eosinophils/100 WBC (Bld) 2.1 % Normal [facility] Comment on above: Performed By: #### C BCA, BMP #### [facility] ([id number]) [address], [address] [place] [address] Erythrocyte distribution width (RBC) [Ratio] 14.3 % Normal 11.5-15.0 [facility] Comment on above: Performed By: #### Freda MATTHEWS, BMP #### [facility] ([id number]) [address] [place] [address] Hematocrit (Bld) [Volume fraction] 42.0 % Normal 35-47 [facility] Comment on above: Performed By: #### Freda MATTHEWS, BMP #### [facility] ([id number]) [address] [address] [place] [address] Hemoglobin (Bld) [Mass/Vol] 13.8 g/dL Normal 11.7-15.5 [facility] Comment on above: Performed By: #### Freda MATTHEWS, BMP #### [facility] ([id number]) [address] [address] [place] [address] Lymphocytes (Bld) [#/Vol] 3.4 10*3/uL Normal 1.0-3.5 [facility] Comment on above: Performed By: #### Freda MATTHEWS, BMP #### [facility] ([id number]) [address] [address] [place] [address] Lymphocytes/100 WBC (Bld) 48.7 % Normal [facility] Comment on above: Performed By: #### Freda MATTHEWS, BMP #### [facility] ([id number]) [address] [place] [address] MCH (RBC) [Entitic mass] 30.7 pg Normal 27-34 [facility] Comment on above: Performed By: #### Freda MATTHEWS, BMP #### [facility] ([id number]) [address] [place] [address] MCHC (RBC) [Mass/Vol] 32.7 g/dL Normal 32-36 [facility] Comment on above: Performed By: #### Freda MATTHEWS, BMP #### [facility] ([id number]) [address] [place] [address] MCV (RBC) [Entitic vol] 94 fL Normal 80-100 [facility] Comment on above: Performed By: #### C CASSIE, BMP #### [facility] ([id number]) [address] [place] [address] Monocytes (Bld) [#/Vol] 0.6 10*3/uL Normal 0-0.9 [facility] Comment on above: Performed By: #### Freda MATTHEWS, BMP #### [facility] ([id number]) [address] [place] [address] Monocytes/100 WBC (Bld) 9.1 % Normal [facility] Comment on above: Performed By: #### Freda MATTHEWS, BMP #### [facility] ([id number]) [address] [place] [address] Neutrophils/100 WBC (Bld) 39.3 % Normal [facility] Comment on above: Performed By: #### Freda MATTHEWS, BMP #### [facility] ([id number]) [address] [place] [address] Platelet mean volume (Bld) [Entitic vol] 8.5 fL Normal 7-12 [facility] Comment on above: Performed By: #### Freda MATTHEWS, BMP #### [facility] ([id number]) [address] [place] [address] Platelets (Bld) [#/Vol] 254 10*3/uL Normal 150-450 [facility] Comment on above: Performed By: #### Freda MATTHEWS, BMP #### [facility] ([id number]) [address] [place] [address] RBC COUNT 4.48 X10E12/L Normal 3.80-5.20 [facility] Comment on above: Performed By: #### C CASSIE, BMP #### [facility] ([id number]) [address] [place] [address] WBC (Bld) [#/Vol] 6.9 10*3/uL Normal 4.0-11.0 [facility] Comment on above: Performed By: #### Freda MATTHEWS, BMP #### [facility] ([id number]) [address] [place] [address] CBC auto differentialon 03-31 Basophils (Bld) [#/Vol] 0.1 10*3/uL [facility] Basophils/100 WBC (Bld) 0.8 % [facility] Eosinophils (Bld) [#/Vol] 0.1 10*3/uL [facility] Eosinophils/100 WBC (Bld) 2.1 % [facility] Erythrocyte distribution width (RBC) [Ratio] 14.3 % 11.5 - 15.0 % [facility] Hematocrit (Bld) [Volume fraction] 42 % 35 - 47 % [facility] Hemoglobin (Bld) [Mass/Vol] 13.8 g/dL 11.7 - 15.5 g/dL [facility] Lymphocytes (Bld) [#/Vol] 3.4 10*3/uL [facility] Lymphocytes/100 WBC (Bld) 48.7 % [facility] MCH (RBC) [Entitic mass] 30.7 pg 27 - 34 pg [facility] MCHC (RBC) [Mass/Vol] 32.7 g/dL 32 - 3 6 g/dL [facility] MCV (RBC) [Entitic vol] 94 fL 80 - 100 fL [facility] Monocytes (Bld) [#/Vol] 0.6 10*3/uL [facility] Monocytes/100 WBC (Bld) 9.1 % [facility] Neutrophils (Bld) [#/Vol] 2.7 10*3/uL [facility] Neutrophils/100 WBC (Bld) 39.3 % [facility] Platelet mean volume (Bld) [Entitic vol] 8.5 fL 7 - 12 fL [facility] Platelets (Bld) [#/Vol] 254 10*3/uL [facility] RBC (Bld) [#/Vol] 4.48 10*6/uL [facility] WBC corrected for nucl RBC Auto (Bld) [#/Vol] 6.9 [facility] URINALYSISon 04-11-2024 Bilirubin Ql (U) Negative Normal NEG [facility] Comment on above: Performed By: #### U A #### [facility] ([id number]) [address] [place] [address] BLOOD/HGB Negative Normal NEG [facility] Comment on above: Performed By: #### U A #### [facility] ([id number]) [address] [place] [address] CA OXALATE CRYSTALS PRESENT Abnormal NONE [facility] Comment on above: Performed By: #### U A #### [facility] ([id number]) [address] [place] [address] Color (U) YELLOW Normal YELLOW [facility] Comment on above: Performed By: #### U A #### [facility] ([id number]) [address] [place] [address] Glucose Ql (U) Negative Normal NEG [facility] Comment on above: Performed By: #### U A #### [facility] ([id number]) [address] [place] [address] Ketones Ql (U) Negative Normal NEG [facility] Comment on above: Performed By: #### U A #### [facility] ([id number]) [address] [place] [address] Leukocyte esterase Test strip Ql (U) Negative Normal NEG [facility] Comment on above: Performed By: #### U A #### [facility] ([id number]) [address] [place] [address] Nitrite Ql (U) Negative Normal NEG [facility] Comment on above: Performed By: #### U A #### [facility] ([id number]) [address] [place] [address] pH (U) 6.0 [pH] Normal 5.0-8.5 [facility] Comment on above: Performed By: #### U A #### [facility] ([id number]) [address] [facility] [address] [address] [place] [address] Protein Ql (U) Trace Abnormal NEG [facility] Comment on above: Performed By: #### U A #### [facility] ([id number]) [address] [facility] [address] [place] [address] R.B.CELLS 1 /hpf Normal 0-5 [facility] Comment on above: Performed By: #### U A #### [facility] ([id number]) [address] [facility] [address] [place] [address] Specific gravity (U) [Rel density] 1.027 Normal 1.003-1.035 [facility] Comment on above: Performed By: #### U A #### [facility] ([id number]) [address] [place] [address] TURBIDITY CLEAR Normal CLEAR [facility] Comment on above: Performed By: #### U A #### [facility] ([id number]) [address] [place] [address] Urobilinogen (U) [Mass/Vol] mg/dL Normal <1.1 [facility] Comment on above: Performed By: #### U A #### [facility] ([id number]) [address] [place] [address] W.B.CELLS 2 /hpf Normal 0-5 [facility] Comment on above: Performed By: #### U A #### [facility] ([id number]) [address] [place] [address] URINE CULTUREon 04-11-2024 Bacteria identified Cx Nom (U) CULTURE RESULTS 1000 ORGANISMS/ML GRAM NEGATIVE RODS CALL MICROBIOLOGY IF FURTHER WORK DESIRED. ISOLATES HELD FOR 7 DAYS PAST FINAL DATE. Normal [facility] Comment on above: Performed By: #### 6 30-4 #### [facility] ([id number]) [address] [place] [address] Urinalysison 04-11-2024 Bilirubin Ql (U) Negative Negative^Ne gative [facility] Calcium oxalate crystals LM Ql (Urine sed) PRESENT Abnormal NONE^NONE [facility] Color (U) YELLOW YELLOW^YELL OW [facility] Glucose (U) [Mass/Vol] Negative Negat chava^Ne gative mg/dL [facility] Hemoglobin Auto test strip Ql (U) Negative Negative^Ne gative [facility] Interpretation and review of laboratory results Abnormal [facility] Ketones (U) [Mass/Vol] Negative Negat chava^Ne gative mg/dL [facility] Leukocyte esterase Auto test strip Ql (U) Negative Negative^Ne gative [facility] Nitrite Auto test strip Ql (U) Negative Negative^Ne gative [facility] pH (U) 6 [pH] 5.0 - 8.5 [facility] Protein (U) [Mass/Vol] Trace Abnormal Negat chava^Ne gative mg/dL [facility] RBC Auto (Urine sed) [#/Area] 1 [facility] Specific gravity Refractometry automated (U) [Rel density] 1.027 1.003 - 1.035 [facility] Turbidity Ql (U) CLEAR CLEAR^CLEAR [facility] Urobilinogen Qn (U) NINF [facility] WBC Auto (Urine sed) [#/Area] 2 [facility] XR HIP LT 2-3 VIEWS W OR WO PELVISon 04-11-2024 XR HIP LT 2-3 VIEWS W OR WO PELVIS XR HIP LT 2-3 VIEWS W OR WO PELVIS Comparison June 05, 2017 XR HIP LT 2-3 VIEWS W OR WO PELVIS Preop examination; Hypertension, unspecified type; Osteoarthritis of left hip, unspecified osteoarthritis type; Urinary frequency Findings: There is no fracture or destructive lesion. Impression: * No acute findings. Moderate arthritis of left hip with joint space narrowing * Consider MRI if you suspect occult process. Finalized by Marc Heredia MD on 04/11/2024 2:36 PM Normal [facility] XR Pelvis and Hip - left 2 V iewson 04-11-2024 Comparison May XR HIP LT 2-3 VIEWS W OR WO PELVIS Preop examination; Hypertension, unspecified type; Osteoarthritis of left hip, unspecified osteoarthritis type; Urinary frequency Findings: There is no fracture or destructive lesion. Impression: * No acute findings. Moderate arthritis of left hip with joint space narrowing * Consider MRI if you suspect occult process. Finalized by Marc Heredia MD on 04/11/2024 2:36 PM [facility] Marc Heredia MD - 04/11/2024 Comparison June 05, 2017 XR HIP LT 2-3 VIEWS W OR WO PELVIS Preop examination; Hypertension, unspecified type; Osteoarthritis of left hip, unspecified osteoarthritis type; Urinary frequency Findings: There is no fracture or destructive lesion. Impression: * No acute findings. Moderate arthritis of left hip with joint space narrowing * Consider MRI if you suspect occult process. Finalized by Marc Heredia MD on 04/11/2024 2:36 PM [facility] [employer] [facility] Radiology Study observation (narrative) [facility] XR Pelvis and Hip - left 2 V iewsOrdered By: Marc Heredia on 04-11-2024 [facility] Work Phone: [place] 02-23-2024 [facility]) JESSICA FERRERA ([id number]) 1955 F Date Time Provider Department 02/23/24 CHARISSA FAIR During your visit today, we recorded the following information about you: Charissa Fair LSW 02/23/2024 11:32 AM Signed Education AND Information on Support Services Provided Patient's name appears on the PRO [place] Report for a NCCN score of 10. SW contacted Patient who reports that she is experiencing situation distress. Patient is scheduled for a hip replacement in April. In the meantime, she is experiencing pain and limited mobility. Patient has a planned vacation in March to [place] that she is concerned about how she will feel. SW provided active listening. Patient denied any immediate psychosocial needs or concerns. BENJAMIN Carmona-Nils Allergies As of Date: 02/23/2024 Noted Allergy Reaction CIPROFLOXACIN 06/05/2021 5 - [...] NO.17 09/01/2017 16 - Unknown Date Reviewed: 02/21/2024 Reviewed by: Preethi Ibarra APRN.[employer] - Fully Assessed Prescriptions as of 02/23/2024 - ADIPEX-P 37.5 mg tablet Take 37.5 mg by mouth once daily. Takes 1/2 - traMADol (ULTRAM) 50 mg tablet Take 50 mg by mouth once daily as needed. - azelastine 0.1% nasal spray Use 2 [...] ACIDOPHILUS-PECTIN) 100 million cell-10 mg cap - estradiol (ESTRACE) 0.01 % (0.1 mg/gram) [...] by mouth. 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 Iron deficiency anemia secondary to inadequate *04/10/2022 Encounter Status:Closed by CHARISSA FAIR on 02/23/24 [facility] CNOVSPon 02-21-2024 [facility] Visit (SP) Office ([facility]) JESSICA FERRERA Tez ([id number]) 1955 F Date Time Provider Department 02/21/24 9:30 AM PREETHI IBARRA During your visit today, we recorded the following information about you: Temperature Pulse Respiration Blood pressure 97.7 degrees 82/minute 16/minute 150/91 Weight Height 103.3 kg 1.626 m Preethi Ibarra APRN.[facility] 02/21/2024 10:02 AM Signed NAME: Jessica Ferrera CLINIC NO.: [id number] DATE OF SERVICE: February 21, 2024 (Donald) Some elements in this clinic note that are critical to medical decision making have been carefully reviewed and included from a prior clinic note dated: August 23, 2023 (Andra) CHIEF COMPLAINT: Followup for anemia ASSESSMENT: (D50.8) Iron deficiency anemia secondary to inadequate dietary iron intake (primary encounter diagnosis) (R91.8) Lung nodules Iron deficiency With anemia - improving. Stable. Responding to oral iron replacement ferrous sulfate 325 mg either to be taken twice a day or once every other day. Now at Hgb of 13.3 g/dL Pulmonary nodule is stable - since 03/2022 and is going to be following with pulmonary medicine soon. Flow cytometry with no evidence of CLL - (elevated lymphocyte count). PLAN: RTC in [address] chest if not ordered/completed by pulmonary. Will send images pulmonary medicine. ([facility]) Labs, same day to include anemia labs. - [...] 04/2017 - platelets were 263,000. Updated Visit, February 21, 2024: Jessica Ferrera returns for a 6-month follow-up. She is scheduled to have a left hip replacement on 05/[address] Pedro. She has had some intentional weight loss. She had to decrease her BMI and was started on Adipex. She continues to follow with [facility]. ([facility]) She has chronic bronchitis. She currently denies cough, shortness of breath and other pulmonary complaints. No fevers, chills, night sweats or signs/symptoms of infection. She has a history of chronic UTIs and is on long-term medication. She denies any abnormal bleeding. Some bruising likely from her medications and or using tape. She denies any palpable lumps or bumps. Overall, she is doing fairly well despite her left hip pain. Updated Visit, August 23, 2023: Doing well. Flow was negative for lymphoproliferative disorder.has been on iron 3 days / week. Anemia improved. Getting her hip replacement and is (more content not included)... Normal [facility]2024 [facility] BRENDENMICHAEL RIBEIRONyasia Reagan ([id number]) 1955 F Date Time Provider Department 02/21/24 PREETHI IBARRA [facility] During your visit today, we recorded the following information about you: Brenda Carrera 02/21/2024 9:59 AM Signed Please send recent Ct chest images to Dr Sawyer's office. Thank you Allergies As of Date: 02/21/2024 Noted Allergy Reaction CIPROFLOXACIN 06/05/2021 5 - [...] NO.17 09/01/2017 16 - Unknown Date Reviewed: 02/21/2024 Reviewed by: Preethi Ibarra APRN.[employer] - Fully Assessed Reason for Visit: Release Of Medical Records [2017] Prescriptions as of 02/23/2024 - ADIPEX-P 37.5 mg tablet Take 37.5 mg by mouth once daily. Takes 1/2 - traMADol (ULTRAM) 50 mg tablet Take 50 mg by mouth once daily as needed. - azelastine 0.1% nasal spray Use 2 [...] ACIDOPHILUS-PECTIN) 100 million cell-10 mg cap - estradiol (ESTRACE) 0.01 % (0.1 mg/gram) [...] by mouth. 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 Comment on above: Order Comment: Speci men Type: BLOOD SPECIMEN Ordering Facility: [facility] Address: [address] [place] [address] Performed By: #### 5 7021-8 #### [facility] CLIA [id number] [address] [place] [address] Differential cell count method Nom (Bld) Auto Normal [facility] Comment on above: Order Comment: Speci men Type: BLOOD SPECIMEN Ordering Facility: [facility] Address: [address] [place] [address] Performed By: #### 5 7021-8 #### [facility] CLIA [id number] [address] [place] [address] Eosinophils (Bld) [#/Vol] 0.14 10*3/uL Normal <0.46 [facility] Comment on above: Order Comment: Speci men Type: BLOOD SPECIMEN Ordering Facility: [facility] Address: [address] [place] [address] Performed By: #### 5 7021-8 #### [facility] CLIA [id number] [address] [place] [address] Eosinophils/100 WBC (Bld) 2.3 % Normal [facility] Comment on above: Order Comment: Speci men Type: BLOOD SPECIMEN Ordering Facility: [facility] Address: [address] [place] [address] Performed By: #### 5 7021-8 #### [facility] CLIA [id number] [address] [place] [address] Erythrocyte distribution width (RBC) [Ratio] 14.0 % Normal 11.5-15.0 [facility] Comment on above: Order Comment: Speci men Type: BLOOD SPECIMEN Ordering Facility: [facility] Address: [address] [place] [address] Performed By: #### 5 7021-8 #### [facility] CLIA [id number] [address] [place] [address] Hematocrit (Bld) [Volume fraction] 39.2 % Normal 36.0-46.0 [facility] Comment on above: Order Comment: Speci men Type: BLOOD SPECIMEN Ordering Facility: [facility] Address: [address] [place] [address] Performed By: #### 5 7021-8 #### [facility] CLIA [id number] [address] [place] [address] Hemoglobin (Bld) [Mass/Vol] 13.3 g/dL Normal 11.5-15.5 [facility] Comment on above: Order Comment: Speci men Type: BLOOD SPECIMEN Ordering Facility: [facility] Address: [address] [place] [address] Performed By: #### 5 7021-8 #### [facility] CLIA [id number] [address] [place] [address] Immature granulocytes (Bld) [#/Vol] 10*3/uL Normal <0.10 [facility] Comment on above: Order Comment: Speci men Type: BLOOD SPECIMEN Ordering Facility: [facility] Address: [address] [place] [address] Performed By: #### 5 7021-8 #### [facility] CLIA [id number] [address] [place] [address] Immature granulocytes/100 WBC (Bld) 0.3 % Normal [facility] Comment on above: Order Comment: Speci men Type: BLOOD SPECIMEN Ordering Facility: [facility] Address: [address] [place] [address] Performed By: #### 5 7021-8 #### [facility] CLIA [id number] [address] [place] [address] Lymphocytes (Bld) [#/Vol] 3.06 10*3/uL Normal 1.00-4.00 [facility] Comment on above: Order Comment: Speci men Type: BLOOD SPECIMEN Ordering Facility: [facility] Address: [address] [place] [address] Performed By: #### 5 7021-8 #### [facility] CLIA [id number] [address] [place] [address] Lymphocytes/100 WBC (Bld) 50.1 % Normal [facility] Comment on above: Order Comment: Speci men Type: BLOOD SPECIMEN Ordering Facility: [facility] Address: [address] [place] [address] Performed By: #### 5 7021-8 #### [facility] CLIA [id number] [address] [place] [address] MCH (RBC) [Entitic mass] 30.9 pg Normal 26.0-34.0 [facility] Comment on above: Order Comment: Speci men Type: BLOOD SPECIMEN Ordering Facility: [facility] Address: [address] [place] [address] Performed By: #### 5 7021-8 #### [facility] CLIA [id number] [address] [place] [address] MCHC (RBC) [Mass/Vol] 33.9 g/dL Normal 30.5-36.0 [facility] Comment on above: Order Comment: Speci men Type: BLOOD SPECIMEN Ordering Facility: [facility] Address: [address] [place], [place] [address] Performed By: #### 5 7021-8 #### [facility] CLIA [id number] [address] [place] [address] MCV (RBC) [Entitic vol] 91.0 fL Normal 80.0-100.[address] [facility] Comment on above: Order Comment: Speci men Type: BLOOD SPECIMEN Ordering Facility: [facility] Address: [address] [place] [address] Performed By: #### 5 7021-8 #### [facility] CLIA [id number] [address] [place] [address] Monocytes (Bld) [#/Vol] 0.60 10*3/uL Normal <0.87 [facility] Comment on above: Order Comment: Speci men Type: BLOOD SPECIMEN Ordering Facility: [facility] Address: [address] [place] [address] Performed By: #### 5 7021-8 #### [facility] CLIA [id number] [address] [place] [address] Monocytes/100 WBC (Bld) 9.8 % Normal C [facility] Comment on above: Order Comment: Speci men Type: BLOOD SPECIMEN Ordering Facility: [facility] Address: [address] [place] [address] Performed By: #### 5 7021-8 #### [facility] CLIA [id number] [address] [place] [address] Neutrophils (Bld) [#/Vol] 2.23 10*3/uL Normal 1.45-7.50 [facility] Comment on above: Order Comment: Speci men Type: BLOOD SPECIMEN Ordering Facility: [facility] Address: [address] [place] [address] Performed By: #### 5 7021-8 #### [facility] CLIA [id number] [address] [place] [address] Neutrophils/100 WBC (Bld) 36.5 % Normal [facility] Comment on above: Order Comment: Speci men Type: BLOOD SPECIMEN Ordering Facility: [facility] Address: [facility] [place] [address] Performed By: #### 5 7021-8 #### [facility] CLIA [id number] [address] [place] [address] Nucleated RBC (Bld) [#/Vol] 10*3/uL Normal <0.01 [facility] Comment on above: Order Comment: Speci men Type: BLOOD SPECIMEN Ordering Facility: [facility] Address: [address] [place] [address] Performed By: #### 5 7021-8 #### [facility] CLIA [id number] [address] [place] [address] Nucleated RBC/100 WBC (Bld) [Ratio] 0.0 /100 WBC Normal [facility] Comment on above: Order Comment: Speci men Type: BLOOD SPECIMEN Ordering Facility: [facility] Address: [address] [place] [address] Performed By: #### 5 7021-8 #### [facility] CLIA [id number] [address] [place] [address] Platelet mean volume (Bld) [Entitic vol] 10.1 fL Normal 9.0-12.7 [facility] Comment on above: Order Comment: Speci men Type: BLOOD SPECIMEN Ordering Facility: [facility] Address: [address] [place] [address] Performed By: #### 5 7021-8 #### [facility] CLIA [id number] [address] [place] [address] Platelets (Bld) [#/Vol] 223 10*3/uL Normal 150-400 [facility] Comment on above: Order Comment: Speci men Type: BLOOD SPECIMEN Ordering Facility: [facility] Address: [address] [place] [address] Performed By: #### 5 7021-8 #### [facility] CLIA [id number] [address] [place] [address] RBC (Bld) [#/Vol] 4.31 10*6/uL Normal 3.90-5.20 [facility] Comment on above: Order Comment: Speci men Type: BLOOD SPECIMEN Ordering Facility: [facility] Address: [address] [place] [address] Performed By: #### 5 7021-8 #### [facility] CLIA [id number] [address] [place] [address] WBC (Bld) [#/Vol] 6.11 10*3/uL Normal 3.70-11.00 [facility] Comment on above: Order Comment: Speci men Type: BLOOD SPECIMEN Ordering Facility: [facility] Address: [address] [place] [address] Performed By: #### 5 7021-8 #### [facility] CLIA [id number] [address] [place] [address] Comprehensive metabolic 2000 panelon 02-17-2024 Albumin [Mass/Vol] 4.1 g/dL Normal 3.9-4.9 [facility] Comment on above: Order Comment: Speci men Type: BLOOD SPECIMEN Ordering Facility: [facility] Address: [address] [place] [address] Performed By: #### 2 284-8, 31753-5, 2132-9, 2276-4 #### [facility] CLIA [id number] [address] [place], [place] [address] [place] ALP [Catalytic activity/Vol] 80 U/L Normal 34-123 [facility] Comment on above: Order Comment: Speci men Type: BLOOD SPECIMEN Ordering Facility: [facility] Address: [address] [place] [address] Performed By: #### 2 284-8, 92799-6, 2-9, 6-4 #### [facility] CLIA [id number] [address] [place] [address] [place] ALT [Catalytic activity/Vol] 14 U/L Normal 7-38 [facility] Comment on above: Order Comment: Speci men Type: BLOOD SPECIMEN Ordering Facility: [facility] Address: [address] [place] [address] Performed By: #### 2 284-8, 77324-0, 2131-9, 2275-4 #### [facility] CLIA [id number] [address] [place] [address] [place] Anion gap [Moles/Vol] 9 mmol/L Normal 8-15 [facility] Comment on above: Order Comment: Speci men Type: BLOOD SPECIMEN Ordering Facility: [facility] Address: [address] [place] [address] Performed By: #### 2 284-8, 13217-2, 2131-9, 2275-4 #### [facility] CLIA [id number] [address] [place] [address] [place] AST [Catalytic activity/Vol] 17 U/L Normal 13-35 [facility] Comment on above: Order Comment: Speci men Type: BLOOD SPECIMEN Ordering Facility: [facility] Address: [address] [place] [address] Performed By: #### 2 284-8, 75073-8, 2131-9, 6-4 #### [facility] CLIA [id number] [address] [place] [address] [place] Bilirubin [Mass/Vol] 0.3 mg/dL Normal 0.2-1.3 [facility] Comment on above: Order Comment: Speci men Type: BLOOD SPECIMEN Ordering Facility: [facility] Address: [address] [place] [address] Performed By: #### 2 284-8, 89001-6, 2131-9, 6-4 #### [facility] CLIA [id number] [address] [place] [address] [place] Calcium [Mass/Vol] 9.4 mg/dL Normal 8.5-10.2 [facility] Comment on above: Order Comment: Speci men Type: BLOOD SPECIMEN Ordering Facility: [facility] Address: [address] [place] [address] Performed By: #### 2 284-8, 04124-1, 2131-9, 2275-4 #### [facility] CLIA [id number] [address] [place] [address] [place] Chloride [Moles/Vol] 110 mmol/L High 98-107 [facility] Comment on above: Order Comment: Speci men Type: BLOOD SPECIMEN Ordering Facility: [facility] Address: [address] [place] [address] Performed By: #### 2 284-8, 14257-0, 2131-9, 2275-4 #### [facility] CLIA [id number] [address] [place] [address] [place] CO2 [Moles/Vol] 24 mmol/L Normal 22-30 [facility] Comment on above: Order Comment: Speci men Type: BLOOD SPECIMEN Ordering Facility: [facility] Address: [address] [place] [address] Performed By: #### 2 284-8, 38303-9, 2131-9, 6-4 #### [facility] CLIA [id number] [address] [place] [address] [place] Creatinine [Mass/Vol] 0.90 mg/dL Normal 0.58-0.96 [facility] Comment on above: Order Comment: Rocio shaffer Type: BLOOD SPECIMEN Ordering Facility: [facility] Address: [address] [place] [address] Performed By: #### 2 284-8, 21308-5, 2131-9, 6-4 #### [facility] CLIA [id number] [address] [place] [address] [place] Creatinine and Glomerular filtration rate.predicted panel (S/P/Bld) 70 mL/min/1.73m??? Normal >=60 [facility] Comment on above: Order Comment: Rocio shaffer Type: BLOOD SPECIMEN Ordering Facility: [facility] Address: [address] [place] [address] Result Comment: Abigail mated Glomerular Filtration Rate [...] reflect actual GFR. Performed By: #### 2 284-8, 93856-7, 9, 2275-4 #### [facility] CLIA [id number] [address] [place] [address] [place] Glucose [Mass/Vol] 105 mg/dL High 74-99 [facility] Comment on above: Order Comment: Rocio shaffer Type: BLOOD SPECIMEN Ordering Facility: [facility] Address: [address] [place] [address] Result Comment: The [place] Diabetes Association (ADA) provides guidance for cutoff [...] Standards of Medical Care in Diabetes 2016, [place] [employer]. Diabetes Care. 2016.39(Suppl 1). Performed By: #### 2 284-8, 68745-0, 2-9, 6-4 #### [facility] CLIA [id number] [address] [place] [address] [place] Potassium [Moles/Vol] 4.1 mmol/L Normal 3.7-5.1 [facility] Comment on above: Order Comment: Speci men Type: BLOOD SPECIMEN Ordering Facility: [facility] Address: [address] [place] [address] Performed By: #### 2 284-8, 68861-7, 2131-9, 2275-4 #### [facility] CLIA [id number] [address] [place] [address] [place] Protein [Mass/Vol] 6.4 g/dL Normal 6.3-8.0 [facility] Comment on above: Order Comment: Speci men Type: BLOOD SPECIMEN Ordering Facility: [facility] Address: [address] [place] [address] Performed By: #### 2 284-8, 78768-9, 2131-9, 2275-4 #### [facility] CLIA [id number] [address] [place] [address] [place] Sodium [Moles/Vol] 143 mmol/L Normal 136-144 [facility] Comment on above: Order Comment: Speci men Type: BLOOD SPECIMEN Ordering Facility: [facility] Address: [address] [place] [address] Performed By: #### 2 284-8, 80166-4, 2131-9, 6-4 #### [facility] CLIA [id number] [address] [place] [address] [place] Urea nitrogen [Mass/Vol] 21 mg/dL Normal 7-21 [facility] Comment on above: Order Comment: Rocio shaffer Type: BLOOD SPECIMEN Ordering Facility: [facility] Address: [address] [place] [address] Performed By: #### 2 284-8, 95539-0, 2-9, 6-4 #### [facility] CLIA [id number] [address] [place] [address] [place] FLOW CYTOMETRY FOR LEUKEMIA/ LYMPHOMA (FCLL) PERFORMABLEon 02-17-2024 FLOW CYTOMETRY ORDER STATUS Results will be reported under F case ID when completed Normal [facility] Comment on above: Order Comment: Rocio shaffer Type: BLOOD SPECIMEN Ordering Facility: [facility] Address: [address] [place] [address] Performed By: #### 2 284-8, 98061-4, 2131-9, 2275-4 #### [facility] CLIA [id number] [address] [place] [address] [place] FLOW CYTOMETRY FOR LEUKEMIA/ LYMPHOMA (FCLL) REFLEXon 02-17-2024 DIAGNOSIS COMMENT Normal [facility] Comment on above: Order Comment: Rocio shaffer Type: BLOOD SPECIMEN Ordering Facility: [facility] Address: [address] [place] [address] Result Comment: This assay is not designed to detect minimal residual disease, plasma cell neoplasms, or myeloid antigen maturational patterns. This test was developed and its performance characteristics determined by [facility] Harinder JLalitha [facility] Pathology [facility] (-[facility]). It has not been cleared or approved by the FDA. -[facility] is regulated under CLIA as qualified to perform high-complexity testing. This test is used for clinical purposes. It should not be regarded as investigational or for research. Performed By: #### 2 284-8, 40237-9, 2-9, 6-4 #### [facility] CLIA [id number] [address] [place] [address] [place] FINAL PERFORMING LAB Normal [facility] Comment on above: Order Comment: Speci men Type: BLOOD SPECIMEN Ordering Facility: [facility] Address: [address] [place] [address] Result Comment: Diag nostic interpretation performed at [facility], [address] [place] [address] CLIA# [id number] Manager Epic: Norberto Strickland M.D. Performed By: #### 2 284-8, 83838-8, 2132-9, 2276-4 #### [facility] CLIA [id number] [address] [place], [place] [address] [address] STATES OF [facility] FLOW CYTOMETRY RESULTS Normal [facility] Comment on above: Order Comment: Speci men Type: BLOOD SPECIMEN Ordering Facility: [facility] Address: [address] [place] [address] Result Comment: Spec imen type: Peripheral blood CBC (02/18/2024): WBC = 6.39k/uL; Hgb = 13.3g/dL; Plt = 224k/uL Differential (%): Neutrophil: 29.9; Lymphocyte: 51.6; Monocyte: 9.5; Eosinophil: 7.4; Basophil: 1.3 Morphology comments: Unremarkable Viability: 99% Results: Flow Cytometry Peripheral Blood Immunophenotyping Marker Normal Cell Type Result (Lymphocytes) CD3 T-cells Normal Pattern CD4 T-cell subset Normal Pattern CD5 T-cells Normal Pattern CD7 T/NK-cells Normal Pattern CD8 T-cell subset Normal Pattern CD13 Myeloid Normal Pattern CD16/56 NK cells Normal Pattern CD19 B-cells Normal Pattern CD34 Blasts Not detected CD45 Tello-leukocyte Normal Pattern kappa/lambda B-cells Polytypic Flow cytometric analysis of the peripheral blood reveals that 49% of total events have the CD45 and light scatter properties of lymphocytes. The lymphocytes are composed of T-cells (77%, CD4:CD8 ratio = 1.53), NK cells (4%), and polytypic B-cells (18%). There are mildly increased CD8-positive T-large granular lymphocytes accounting for 22% of the Tcell gate (17% of the lymphocyte gate). Granulocytic elements are 37% of events. Blasts are not detected. ZP/PXC 02/18/24 Performed By: #### 2 284-8, 82571-3, 2131-9, 6-4 #### [facility] CLIA [id number] [address] [place] [address] [place] GROSS DESCRIPTION A. Blood Normal [facility] Comment on above: Order Comment: Speci men Type: BLOOD SPECIMEN Ordering Facility: [facility] Address: [address] [place] [address] Result Comment: Rece ived 2-4 mls peripheral blood in edta Performed By: #### 2 284-8, 00631-2, 2131-9, 2275-4 #### [facility] CLIA [id number] [address] [place] [address] [place] INTERPRETATION Normal [facility] Comment on above: Order Comment: Speci men Type: BLOOD SPECIMEN Ordering Facility: [facility] Address: [address] [place] [address] Result Comment: Ther e are mildly increased CD8-positive T-cell large granular lymphocytes. If reactive causes are excluded and the findings persist, further evaluation may be warranted in the right clinical setting. Otherwise, there is no evidence of involvement by a lymphoproliferative disorder or abnormal blast population. Correlation with the clinical findings is suggested. DeyaP/BROOK 02/18/24 Performed By: #### 2 284-8, 36005-9, 2131-9, 2275-4 #### [facility] CLIA [id number] [address] [place] [address] [place] Ferritin SerPl-mCncon 2023 Ferritin [Mass/Vol] 32.1 ng/mL Normal 14.7-205.1 [facility] Comment on above: Order Comment: Speci men Type: BLOOD SPECIMEN Ordering Facility: [facility] Address: [address] [place] [address] Performed By: #### 2 284-8, 09621-9, 2131-9, 2275-4 #### [facility] CLIA [id number] [address] [place] [address] [place] Folate SerPl-mCncon 02-17-20 24 Folate [Mass/Vol] ng/mL Normal >4.7 [facility] Comment on above: Order Comment: Speci men Type: BLOOD SPECIMEN Ordering Facility: [facility] Address: [address] [place] [address] Result Comment: A re sult of > 20 ng/mL is not necessarily indicative of a pathologic or treatable condition: it reflects a limitation of the test methodology. Assay reference range: 4.8 to 24.2 ng/mL. Suitable for detection of folate deficiency. Reference: Folate III (Folate III) [package insert V 1.0 Filipino]. [employer], [place], [place]: March 2015. Performed By: #### 2 284-8, 04107-3, 2132-9, 6-4 #### [facility] CLIA [id number] [address] [place] [address] [place] Iron and Iron binding capaci panel 02-17-2024 Iron [Mass/Vol] 98 ug/dL Normal 41-186 [facility] Comment on above: Order Comment: Speci men Type: BLOOD SPECIMEN Ordering Facility: [facility] Address: [address] [place] [address] Performed By: #### 2 284-8, 46825-4, 213-9, 6-4 #### [facility] CLIA [id number] [address] [place] [address] [place] Iron binding capacity [Mass/Vol] 330 ug/dL Normal 232-386 [facility] Comment on above: Order Comment: Speci men Type: BLOOD SPECIMEN Ordering Facility: [facility] Address: [address] [place] [address] Performed By: #### 2 284-8, 96002-7, 2132-9, 6-4 #### [facility] CLIA [id number] [address] [place] [address] [place] Iron/TIBC [Molar ratio] 29.7 % Normal 15.0-57.[address] [facility] Comment on above: Order Comment: Speci men Type: BLOOD SPECIMEN Ordering Facility: [facility] Address: [address] [place] [address] Performed By: #### 2 284-8, 75317-7, 2131-9, 6-4 #### [facility] CLIA [id number] [address] [place] [address] [place] LDH SerPl-cCncon 02-17-2024 LDH [Catalytic activity/Vol] 183 U/L Normal 135-214 [facility] Comment on above: Order Comment: Speci men Type: BLOOD SPECIMEN Ordering Facility: [facility] Address: [address] [place] [address] Performed By: #### 2 284-8, 22925-9, 2131-9, 2275-4 #### [facility] CLIA [id number] [address] [place] [address] [place] Vit B12 SerPl-mCncon 024 Cobalamin (Vitamin B12) [Mass/Vol] 421 pg/mL Normal 232-1245 [facility] Comment on above: Order Comment: Speci men Type: BLOOD SPECIMEN Ordering Facility: [facility] Address: [address] [place] [address] Performed By: #### 2 284-8, 29132-8, 2131-9, 6-4 #### [facility] CLIA [id number] [address] [place] [address] [place] XR Hip - left 3 [facility] Result: AP and lateral of left hip showed femoral head to be well centered in the acetabulum without evidence of fracture or dislocation. There was some spurring at the inferior medial aspect of the femoral acetabular junction. There was global decrease in joint space height. There was no acute bony process including but not limited to, fracture and/or dislocation. Impression mild degenerative joint disease, left hip [facility] Radiology Study observation (narrative) [facility] Wenceslao 10-14-2023 CNPN Telephone (IFDSHF) BRENDENQUINTINJESSICA ([id number]) 1955 F Date Time Provider Department 10/14/23 JENNI CARDENAS IFDSF During your visit today, we recorded the [...] otherwise) or concerns for recurrent infection. Jenni aCrdenas MD, PhD Staff, Infectious Disease [facility] Office [phone] Allergies As of Date: 10/14/2023 Noted Allergy [...] Fully Assessed Reason for Visit: Patient Question [5617] Prescriptions as of 10/14/2023 - azelastine 0.1% [...] Status:Closed by JENNI CARDENAS on 10/14/23 Normal [facility] CNOVon 08-30-2023 CNOV Office Visit (AAPMOC ) JESSICA FERRERA ([id number]) 1955 F Date Time Provider Department 08/30/23 1:30 PM ERNIE AYERS [facility] During your visit today, we recorded the following information about you: Pulse Blood pressure Weight Height 88/minute 117/78 111 kg 1.626 m Ernie Ayers MD 09/13/2023 12:35 PM Signed [facility] ALLERGY AND IMMUNOLOGY CONSULT Patient Name: Jessica Ferrera PRIMARY CARE PHYSICIAN: Ricardo Hooper MD REASON FOR CONSULT: N allergy REQUESTING PHYSICIAN: Jenni Cardenas MD My final recommendations will be communicated to the requesting health care provider by way of the shared medical record for internal providers or letter via the [employer] for external providers. CHIEF COMPLAINT: [...] joint pain Chronic rhinitis - Symptoms began 2017. - Symptoms include: sinus pressure. +runny nose, [...] cat(s)x4 Mite Proof Covers: No Bedrm Carpet Wapn-pp-Krek: Yes A/C: Central Hobbies: +baking, traveling, gardening [...] Cystoscopy; Dr. Lombardo; Leanne KENDALL [facility] HX Left HYSTERECTOMY HX 1995 [...] Drug use (more content not included)... Normal [facility] CNOVSPon 08-23-2023 CNOVSP Visit (SP) Office (HEMAS[facility]) JESSICA FERRERA ([id number]) 1955 F Date Time Provider Department 08/23/23 10:00 AM JOSE BRYANT H[facility]ST[facility]O During your visit today, we recorded the following information about you: Temperature Pulse Respiration Blood pressure 97.9 degrees 73/minute 16/minute 152/92 Weight Height 112.4 kg 1.626 m Jose Bryant MD 08/23/2023 7:19 PM Signed NAME: Jessica Ferrera CLINIC NO.: [id number] DATE OF SERVICE: August 23, 2023 (Andra) [...] weight to optimize her outcome. Traveling to [facility] soon and then [place]. Updated Visit, July 08, 2023: Jessica returns [...] with their relationship. She is going to [facility] and [place] later this year, hopefully after her hip replacement. Updated Visit, October 07, 2022: Leaving for [facility] next week. Has all of her shots and prophylaxis for malaria. Anemia corrected on oral iron therapy. Doing well despite back pain which is chronic. Also recovering f (more content not included)... Normal [facility] CBC W Auto Differential pane l (Bld)on 08-16-2023 Basophils (Bld) [#/Vol] 0.07 10*3/uL Normal <0.11 [facility] Comment on above: Order Comment: Speci men Type: BLOOD SPECIMEN Ordering Facility: [facility] Address: [address] [place] [address] Performed By: #### 2 284-8, 52238-2, 9, 2275-4 #### [facility] CLIA [id number] [address] [place] [address] [place] Basophils/100 WBC (Bld) 0.9 % Normal C [facility] Comment on above: Order Comment: Speci men Type: BLOOD SPECIMEN Ordering Facility: [facility] Address: [address] [place] [address] Performed By: #### 2 284-8, 82858-5, 9, 4 #### [facility] CLIA [id number] [address] [place] [address] [place] Differential cell count method Nom (Bld) Auto Normal [facility] Comment on above: Order Comment: Speci men Type: BLOOD SPECIMEN Ordering Facility: [facility] Address: [address] [place] [address] Performed By: #### 2 284-8, 18784-0, 9, 4 #### [facility] CLIA [id number] [address] [place] [address] [place] Eosinophils (Bld) [#/Vol] 0.37 10*3/uL Normal <0.46 [facility] Comment on above: Order Comment: Speci men Type: BLOOD SPECIMEN Ordering Facility: [facility] Address: [address] [place] [address] Performed By: #### 2 284-8, 67417-2, 2132-01, 2275-08 #### [facility] CLIA [id number] [address] [place] [address] [place] Eosinophils/100 WBC (Bld) 5.0 % Normal [facility] Comment on above: Order Comment: Speci men Type: BLOOD SPECIMEN Ordering Facility: [facility] Address: [address] [place] [address] Performed By: #### 2 284-8, 67963-2, 2132-01, 2275-08 #### [facility] CLIA [id number] [address] [place], [place] [address] [place] Erythrocyte distribution width (RBC) [Ratio] 15.3 % High 11.5-15.0 [facility] Comment on above: Order Comment: Speci men Type: BLOOD SPECIMEN Ordering Facility: [facility] Address: [address] [place] [address] Performed By: #### 2 284-8, 68939-5, 2132-01, 2275-08 #### [facility] CLIA [id number] [address] [place] [address] [place] Hematocrit (Bld) [Volume fraction] 43.4 % Normal 36.0-46.0 [facility] Comment on above: Order Comment: Speci men Type: BLOOD SPECIMEN Ordering Facility: [facility] Address: [address] [place] [address] Performed By: #### 2 284-8, 99373-5, 2132-01, 2275-08 #### [facility] CLIA [id number] [address] [place] [address] [place] Hemoglobin (Bld) [Mass/Vol] 13.6 g/dL Normal 11.5-15.5 [facility] Comment on above: Order Comment: Speci men Type: BLOOD SPECIMEN Ordering Facility: [facility] Address: [address] [place] [address] Performed By: #### 2 284-8, 17533-1, 2132-01, 4 #### [facility] CLIA [id number] [address] [place] [address] [place] Immature granulocytes (Bld) [#/Vol] 10*3/uL Normal <0.10 [facility] Comment on above: Order Comment: Speci men Type: BLOOD SPECIMEN Ordering Facility: [facility] Address: [address] [place] [address] Performed By: #### 2 284-8, 45079-2, 2132-01, 2275-08 #### [facility] CLIA [id number] [address] [place] [address] [place] Immature granulocytes/100 WBC (Bld) 0.1 % Normal [facility] Comment on above: Order Comment: Speci men Type: BLOOD SPECIMEN Ordering Facility: [facility] Address: [address] [place] [address] Performed By: #### 2 284-8, 97419-8, 2132-01, 2275-08 #### [facility] CLIA [id number] [address] [place] [address] [place] Lymphocytes (Bld) [#/Vol] 3.85 10*3/uL Normal 1.00-4.00 [facility] Comment on above: Order Comment: Speci men Type: BLOOD SPECIMEN Ordering Facility: [facility] Address: [address] [place] [address] Performed By: #### 2 284-8, 89144-8, 2132-01, 2275-08 #### [facility] CLIA [id number] [address] [place] [address] [place] Lymphocytes/100 WBC (Bld) 52.2 % Normal [facility] Comment on above: Order Comment: Speci men Type: BLOOD SPECIMEN Ordering Facility: [facility] Address: [address] [place] [address] Performed By: #### 2 284-8, 66626-0, 2132-01, 2275-08 #### [facility] CLIA [id number] [address] [place] [address] [place] MCH (RBC) [Entitic mass] 27.9 pg Normal 26.0-34.0 [facility] Comment on above: Order Comment: Speci men Type: BLOOD SPECIMEN Ordering Facility: [facility] Address: [address] [place] [address] Performed By: #### 2 284-8, 63826-2, 2132-01, 2275-08 #### [facility] CLIA [id number] [address] [place] [address] [place] MCHC (RBC) [Mass/Vol] 31.3 g/dL Normal 30.5-36.0 [facility] Comment on above: Order Comment: Speci men Type: BLOOD SPECIMEN Ordering Facility: [facility] Address: [address] [place] [address] Performed By: #### 2 284-8, 46162-2, 2132-01, 2275-08 #### [facility] CLIA [id number] [address] [place] [address] [place] MCV (RBC) [Entitic vol] 89.1 fL Normal 80.0-100.[address] [facility] Comment on above: Order Comment: Speci men Type: BLOOD SPECIMEN Ordering Facility: [facility] Address: [address] [place] [address] Performed By: #### 2 284-8, 50032-9, 2132-01, 2275-08 #### [facility] CLIA [id number] [address] [place] [address] [place] Monocytes (Bld) [#/Vol] 0.79 10*3/uL Normal <0.87 [facility] Comment on above: Order Comment: Speci men Type: BLOOD SPECIMEN Ordering Facility: [facility] Address: [address] [place] [address] Performed By: #### 2 284-8, 92925-0, 2131-9, 6-4 #### [facility] CLIA [id number] [address] [place] [address] [place] Monocytes/100 WBC (Bld) 10.7 % Normal C [facility] Comment on above: Order Comment: Speci men Type: BLOOD SPECIMEN Ordering Facility: [facility] Address: [address] [place] [address] Performed By: #### 2 284-8, 67212-2, 2131-9, 2275-4 #### [facility] CLIA [id number] [address] [place] [address] [place] Neutrophils (Bld) [#/Vol] 2.29 10*3/uL Normal 1.45-7.50 [facility] Comment on above: Order Comment: Speci men Type: BLOOD SPECIMEN Ordering Facility: [facility] Address: [address] [place] [address] Performed By: #### 2 284-8, 74219-5, 2131-9, 2275-4 #### [facility] CLIA [id number] [address] [place] [address] [place] Neutrophils/100 WBC (Bld) 31.1 % Normal [facility] Comment on above: Order Comment: Speci men Type: BLOOD SPECIMEN Ordering Facility: [facility] Address: [address] [place] [address] Performed By: #### 2 284-8, 56082-2, 2131-9, 6-4 #### [facility] CLIA [id number] [address] [place] [address] [place] Nucleated RBC (Bld) [#/Vol] 10*3/uL Normal <0.01 [facility] Comment on above: Order Comment: Speci men Type: BLOOD SPECIMEN Ordering Facility: [facility] Address: [address] [place] [address] Performed By: #### 2 284-8, 27843-9, 2-9, 6-4 #### [facility] CLIA [id number] [address] [place] [address] [place] Nucleated RBC/100 WBC (Bld) [Ratio] 0.0 /100 WBC Normal [facility] Comment on above: Order Comment: Speci men Type: BLOOD SPECIMEN Ordering Facility: [facility] Address: [address] [place] [address] Performed By: #### 2 284-8, 98093-6, 2131-9, 6-4 #### [facility] CLIA [id number] [address] [place] [address] [place] Platelet mean volume (Bld) [Entitic vol] 10.6 fL Normal 9.0-12.7 [facility] Comment on above: Order Comment: Speci men Type: BLOOD SPECIMEN Ordering Facility: [facility] Address: [address] [place] [address] Performed By: #### 2 284-8, 19994-3, 2131-9, 6-4 #### [facility] CLIA [id number] [address] [place] [address] [place] Platelets (Bld) [#/Vol] 250 10*3/uL Normal 150-400 [facility] Comment on above: Order Comment: Speci men Type: BLOOD SPECIMEN Ordering Facility: [facility] Address: [address] [place] [address] Performed By: #### 2 284-8, 20781-5, 2131-9, 6-4 #### [facility] CLIA [id number] [address] [place] [address] [place] RBC (Bld) [#/Vol] 4.87 10*6/uL Normal 3.90-5.20 [facility] Comment on above: Order Comment: Speci men Type: BLOOD SPECIMEN Ordering Facility: [facility] Address: [address] [place] [address] Performed By: #### 2 284-8, 00013-8, 2131-9, 2275-4 #### [facility] CLIA [id number] [address] [place] [address] [place] WBC (Bld) [#/Vol] 7.38 10*3/uL Normal 3.70-11.00 [facility] Comment on above: Order Comment: Speci men Type: BLOOD SPECIMEN Ordering Facility: [facility] Address: [address] [place] [address] Performed By: #### 2 284-8, 15905-2, 2131-9, 2275-4 #### [facility] CLIA [id number] [address] [place] [address] [place] Comprehensive metabolic 2000 panelon 08-16-2023 Albumin [Mass/Vol] 4.2 g/dL Normal 3.9-4.9 [facility] Comment on above: Order Comment: Speci men Type: BLOOD SPECIMEN Ordering Facility: [facility] Address: [address] [place] [address] Performed By: #### 2 284-8, 13994-4, 2131-9, 2275-4 #### [facility] CLIA [id number] [address] [place] [address] [place] ALP [Catalytic activity/Vol] 79 U/L Normal 34-123 [facility] Comment on above: Order Comment: Speci men Type: BLOOD SPECIMEN Ordering Facility: [facility] Address: [address] [place] [address] Performed By: #### 2 284-8, 93521-0, 2131-9, 2275-4 #### [facility] CLIA [id number] [address] [place] [address] [place] ALT [Catalytic activity/Vol] 27 U/L Normal 7-38 [facility] Comment on above: Order Comment: Speci men Type: BLOOD SPECIMEN Ordering Facility: [facility] Address: [address] [place] [address] Performed By: #### 2 284-8, 42971-6, 9, 4 #### [facility] CLIA [id number] [address] [place] [address] [place] Anion gap [Moles/Vol] 13 mmol/L Normal 9-18 [facility] Comment on above: Order Comment: Speci men Type: BLOOD SPECIMEN Ordering Facility: [facility] Address: [address] [place] [address] Performed By: #### 2 284-8, 40575-3, 9, 4 #### [facility] CLIA [id number] [address] [place] [address] [place] AST [Catalytic activity/Vol] 23 U/L Normal 13-35 [facility] Comment on above: Order Comment: Speci men Type: BLOOD SPECIMEN Ordering Facility: [facility] Address: [address] [place] [address] Performed By: #### 2 284-8, 00045-4, 9, 4 #### [facility] CLIA [id number] [address] [place] [address] [place] Bilirubin [Mass/Vol] 0.2 mg/dL Normal 0.2-1.3 [facility] Comment on above: Order Comment: Speci men Type: BLOOD SPECIMEN Ordering Facility: [facility] Address: [address] [place] [address] Performed By: #### 2 284-8, 01350-5, 9, 4 #### [facility] CLIA [id number] [address] [place] [address] [place] Calcium [Mass/Vol] 9.9 mg/dL Normal 8.5-10.2 [facility] Comment on above: Order Comment: Speci men Type: BLOOD SPECIMEN Ordering Facility: [facility] Address: [address] [place] [address] Performed By: #### 2 284-8, 75745-4, 9, 2275-4 #### [facility] CLIA [id number] [address] [place] [address] [place] Chloride [Moles/Vol] 107 mmol/L High 97-105 [facility] Comment on above: Order Comment: Speci men Type: BLOOD SPECIMEN Ordering Facility: [facility] Address: [address] [place] [address] Performed By: #### 2 284-8, 03085-1, 9, 4 #### [facility] CLIA [id number] [address] [place] [address] [place] CO2 [Moles/Vol] 22 mmol/L Normal 22-30 [facility] Comment on above: Order Comment: Speci men Type: BLOOD SPECIMEN Ordering Facility: [facility] Address: [address] [place] [address] Performed By: #### 2 284-8, 63283-5, 9, 4 #### [facility] CLIA [id number] [address] [place] [address] [place] Creatinine [Mass/Vol] 1.02 mg/dL High 0.58-0.96 [facility] Comment on above: Order Comment: Speci men Type: BLOOD SPECIMEN Ordering Facility: [facility] Address: [address] [place] [address] Performed By: #### 2 284-8, 85552-3, 9, 4 #### [facility] CLIA [id number] [address] [place] [address] [place] Creatinine and Glomerular filtration rate.predicted panel (S/P/Bld) 61 mL/min/1.73m??? Normal >=60 [facility] Comment on above: Order Comment: Speci men Type: BLOOD SPECIMEN Ordering Facility: [facility] Address: [address] [place] [address] Result Comment: Abigail mated Glomerular Filtration Rate [...] reflect actual GFR. Performed By: #### 2 284-8, 93283-2, 2132-01, 2275-08 #### [facility] CLIA [id number] [address] [place] [address] [place] Glucose [Mass/Vol] 92 mg/dL Normal 74-99 [facility] Comment on above: Order Comment: Rocio shaffer Type: BLOOD SPECIMEN Ordering Facility: [facility] Address: [address] [place] [address] Result Comment: The [place] [employer] (ADA) provides guidance for cutoff [...] Standards of Medical Care in Diabetes 2016, [place] [employer]. Diabetes Care. 2016.39(Suppl 1). Performed By: #### 2 284-8, 04677-3, 9, 4 #### [facility] CLIA [id number] [address] [place] [address] [place] Potassium [Moles/Vol] 4.4 mmol/L Normal 3.7-5.1 [facility] Comment on above: Order Comment: Rocio shaffer Type: BLOOD SPECIMEN Ordering Facility: [facility] Address: [address] [place] [address] Performed By: #### 2 284-8, 27033-4, 2131-9, 2275-4 #### [facility] CLIA [id number] [address] [place] [address] [place] Protein [Mass/Vol] 6.5 g/dL Normal 6.3-8.0 [facility] Comment on above: Order Comment: Speci men Type: BLOOD SPECIMEN Ordering Facility: [facility] Address: [address] [place] [address] Performed By: #### 2 284-8, 93994-7, 2131-9, 2275-4 #### [facility] CLIA [id number] [address] [place] [address] [place] Sodium [Moles/Vol] 142 mmol/L Normal 136-144 [facility] Comment on above: Order Comment: Speci men Type: BLOOD SPECIMEN Ordering Facility: [facility] Address: [address] [place] [address] Performed By: #### 2 284-8, 71564-4, 2131-9, 2275-4 #### [facility] CLIA [id number] [address] [place] [address] [place] Urea nitrogen [Mass/Vol] 13 mg/dL Normal 7-21 [facility] Comment on above: Order Comment: Speci men Type: BLOOD SPECIMEN Ordering Facility: [facility] Address: [address] [place] [address] Performed By: #### 2 284-8, 85507-5, 2131-9, 2275-4 #### [facility] CLIA [id number] [address] [place] [address] [place] FLOW CYTOMETRY FOR LEUKEMIA/ LYMPHOMA (FCLL) PERFORMABLEon 08-16-2023 FLOW CYTOMETRY ORDER STATUS See Results in chart under F case ID Normal [facility] Comment on above: Order Comment: Speci men Type: BLOOD SPECIMEN Ordering Facility: [facility] Address: [address] [place] [address] Performed By: #### 2 284-8, 55637-5, 2131-9, 2275-4 #### [facility] CLIA [id number] [address] [place] [address] [place] FLOW CYTOMETRY FOR LEUKEMIA/ LYMPHOMA (FCLL) REFLEXon 08-16-2023 DIAGNOSIS COMMENT Normal [facility] Comment on above: Order Comment: Speci men Type: BLOOD SPECIMEN Ordering Facility: [facility] Address: [address] [place] [address] Result Comment: This test was developed and its performance characteristics determined by [facility] Harinder JLalitha [facility] Pathology and Laboratory Medicine [place] ([facility] It has not been cleared or approved by the FDA. [facility] is regulated under CLIA as qualified to perform high-complexity testing. This test is used for clinical purposes. It should not be regarded as investigational or for research. Performed By: #### 2 284-8, 79514-0, 9, 4 #### [facility] CLIA [id number] [address] [place] [address] [place] FINAL PERFORMING LAB Normal [facility] Comment on above: Order Comment: Speci men Type: BLOOD SPECIMEN Ordering Facility: [facility] Address: [address] [place] [address] Result Comment: Diag nostic interpretation performed at [facility], [address] [place] [address] CLIA# [id number] Manager Epic: Norberto Strickland M.D. Performed By: #### 2 284-8, 75108-2, 2131-9, 2275-4 #### [facility] CLIA [id number] [address] [place] [address] [place] FLOW CYTOMETRY RESULTS Normal [facility] Comment on above: Order Comment: Speci men Type: BLOOD SPECIMEN Ordering Facility: [facility] Address: [address] [place] [address] Result Comment: Spec imen type: Peripheral blood [...] 23% of the events. Performed By: #### 2 284-8, 86753-6, 9, 2275- #### [facility] CLIA [id number] [address] [place] [address] [place] GROSS DESCRIPTION A. BLOOD Normal [facility] Comment on above: Order Comment: Speci men Type: BLOOD SPECIMEN Ordering Facility: [facility] Address: [address] [place] [address] Result Comment: Rece ived two 4 mL EDTA peripheral blood tubes. Performed By: #### 2 284-8, 09704-6, 9, 2275- #### [facility] CLIA [id number] [address] [place] [address] [place] INTERPRETATION Normal [facility] Comment on above: Order Comment: Speci men Type: BLOOD SPECIMEN Ordering Facility: [facility] Address: [address] [place] [address] Result Comment: Ther e is no immunophenotypic evidence of involvement by a lymphoproliferative disorder. Correlation with the clinical findings is suggested. SB/SM 08/17/2023 Performed By: #### 2 284-8, 56071-6, 2-9, 6-4 #### [facility] CLIA [id number] [address] [place] [address] [place] LDH SerPl-cCncon 08-16-2023 LDH [Catalytic activity/Vol] 199 U/L Normal 135-214 [facility] Comment on above: Order Comment: Rocio shaffer Type: BLOOD SPECIMEN Ordering Facility: [facility] Address: [address] [place] [address] Performed By: #### 2 284-8, 03641-2, 2-9, 6-4 #### [facility] CLIA [id number] [address] [place] [address] [place] [address] ABD/PEL WO IVCONon 2023 CT ABD/PEL WO IVCON * * *Final Report* * * DATE OF EXAM: Aug 05 2023 9:00AM [facility] 0531 - CT ABD/PEL WO IVCON / [...] elevation of the right hemidiaphragm is appreciated. [employer] Department Supervisor (topogram) images: No additional findings. IMPRESSION: 1. [...] any questions regarding this interpretation, please call [phone]. If you are unable to reach us at the number above, please feel free to contact [facility] at [phone]. [id number] Normal [facility] CT Abdomen and Pelvis WO con traston 08-05-2023 IMPRESSION: 1. Nonobstructive right-sided nephrolithiasis. 2. Mild [...] any questions regarding this interpretation, please call [phone]. If you are unable to reach us at the number above, please feel free to contact [facility] at [phone]. DIVISION OF RADIOLOGY * * *Final Report* * * DATE OF EXAM: Aug 05 2023 9:00AM [facility] 0531 - CT ABD/PEL WO IVCON / [...] elevation of the right hemidiaphragm is appreciated. [employer] Department Supervisor (topogram) images: No additional findings. DIVISION OF RADIOLOGY Provider, Jayro Dotson [facility] - 08/05/2023 * * *Final Report* * * DATE OF EXAM: Aug 05 2023 9:00AM [facility] 0531 - CT ABD/PEL WO IVCON / [...] elevation of the right hemidiaphragm is appreciated. [employer] Department Supervisor (topogram) images: No additional findings. IMPRESSION IMPRESSION: 1. Nonobstructive right-sided nephrolithiasis. 2. Mild [...] any questions regarding this interpretation, please call [phone]. If you are unable to reach us at the number above, please feel free to contact [facility] at [phone]. [facility] Radiology Study observation (narrative) Zakiya medellin [facility] CT Abdomen and Pelvis WO con trastOrdered By: [facility]cf Provider on 08-05-2023 [facility] CNOVon 07-21-2023 CNOV Office Visit (IFDREJ ) JESSICA FERRERA ([id number]) 1955 F Date Time Provider Department 07/21/23 2:00 PM JENNI CARDENAS During your visit today, we recorded the [...] Other: See Comments Burning of skin Nitrofurantoin [facility]* GI Upset, Hives, Itching, Rash, Swelling Penicillins [...] CYSTO.PANENDO 06/05/2021 CYSTOURETHROSCOPY 06/20/15 Cystoscopy; Dr. Lombardo; [place] FA[facility] HX Left HYSTERECTOMY HX 1995 [...] vaginal cre (more content not included)... Normal [facility] Wenceslao 07-12-2023 AUGUSTINN Telephone (ESTHER) JESSICA FERRERA ([id number]) 1955 F Date Time Provider Department 07/12/23 PATRICIA EUGENE During your visit today, we recorded the following information about you: Patricia Eugene RN 07/12/2023 1:32 PM Signed Hi Doctor [...] to see her 1 week after. Patricia Eugene, RN 07/13/2023 9:46 AM Signed Pippa: Current [...] provided # to call for scheduling. NING Delatorre Tiffany 07/13/2023 10:53 AM Signed Patient called back she is scheduled for appts Jose Bryant MD 07/13/2023 11:21 AM Signed Just need FLOW and CBC, CMP, LDH. Thanks - we can cancel FLOW order for December. Patricia Eugene, NING 07/13/2023 11:25 AM Signed Lab aware and [...] [R59.0] Order(s):CBC + DIFF [SQCBCDIF] Order #: [id number] FUTURE COMP METABOLIC PANEL [SQCMP] Order #: [id number] FUTURE LD LACTATE DEHYDRO [SQLD6] Order #: [id number] FUTURE FLOW CYTOMETRY FOR LEUKEMIA/LYMPHOMA (FCLL) [[id number]] Order #: [id number] FUTURE Prescriptions as of 07/13/2023 - estradiol [...] Encounter Status:Closed by PATRICIA EUGENE on 07/13/23 Normal [facility] CNOVSPon 07-08-2023 CNOVSP Visit (SP) Office (HEMASA) JESSICA FERRERA ([id number]) 1955 F Date Time Provider Department 07/08/23 10:45 AM JOSE BRYANT HEMASA During your visit today, we recorded the following information about you: Temperature Pulse Respiration Blood pressure 97.8 degrees 80/minute 18/minute 137/84 Weight Height 115.6 kg 1.626 m Jose Bryant MD 07/10/2023 11:47 AM Signed NAME: Jessica Ferrera CLINIC NO.: [id number] DATE OF SERVICE: July 08, 2023 (Andra) [...] include flow cytometry 1 week before - [facility] Clinical Note Previous notes reviewed today in [...] with more than 50% of the total iuff-me-omix time of the visit in counseling / coordination of care. Yo Morse MD, MS [employer] Engineerr[employer] mechanic Hematology and Medical Oncology [address] [place], [place] [id number] Labs and Imaging Reviewed outside records provided prior to this visit and those in [facility]. as diagnosed by Dr. Morse [facility]. No evidence of a paraprotein. Negative [...] mild dysmegakaryopoie (more content not included)... Normal [facility] CBC W Auto Differential pane l (Bld)on 07-05-2023 Basophils (Bld) [#/Vol] 0.09 10*3/uL Normal <0.11 [facility] Comment on above: Order Comment: Speci men Type: BLOOD SPECIMEN Ordering Facility: [facility] Address: [address] [place] [address] Performed By: #### 2 284-8, 41196-0, 2132-01, 2275-08 #### [facility] CLIA [id number] [address] [place] [address] [place] Basophils/100 WBC (Bld) 1.1 % Normal [facility] Comment on above: Order Comment: Speci men Type: BLOOD SPECIMEN Ordering Facility: [facility] Address: [address] [place] [address] Performed By: #### 2 284-8, 37409-4, 2132-01, 2275-08 #### [facility] CLIA [id number] [address] [place] [address] [place] Differential cell count method Nom (Bld) Auto Normal [facility] Comment on above: Order Comment: Speci men Type: BLOOD SPECIMEN Ordering Facility: [facility] Address: [address] [place] [address] Performed By: #### 2 284-8, 42102-0, 2132-01, 2275-08 #### [facility] CLIA [id number] [address] [place] [address] [place] Eosinophils (Bld) [#/Vol] 10*3/uL Normal <0.46 [facility] Comment on above: Order Comment: Speci men Type: BLOOD SPECIMEN Ordering Facility: [facility] Address: [address] [place] [address] Performed By: #### 2 284-8, 94102-4, 2132-01, 2275-08 #### [facility] CLIA [id number] [address] [place] [address] [place] Eosinophils/100 WBC (Bld) 0.1 % Normal [facility] Comment on above: Order Comment: Speci men Type: BLOOD SPECIMEN Ordering Facility: [facility] Address: [address] [place] [address] Performed By: #### 2 284-8, 73281-2, 2132-01, 2275-08 #### [facility] CLIA [id number] [address] [place] [address] [place] Erythrocyte distribution width (RBC) [Ratio] 15.6 % High 11.5-15.0 [facility] Comment on above: Order Comment: Speci men Type: BLOOD SPECIMEN Ordering Facility: [facility] Address: [address] [place] [address] Performed By: #### 2 284-8, 52548-6, 2131-9, 2275-4 #### [facility] CLIA [id number] [address] [place] [address] [place] Hematocrit (Bld) [Volume fraction] 42.0 % Normal 36.0-46.0 [facility] Comment on above: Order Comment: Speci men Type: BLOOD SPECIMEN Ordering Facility: [facility] Address: [address] [place] [address] Performed By: #### 2 284-8, 50755-7, 9, 2275-4 #### [facility] CLIA [id number] [address] [place] [address] [place] Hemoglobin (Bld) [Mass/Vol] 12.8 g/dL Normal 11.5-15.5 [facility] Comment on above: Order Comment: Speci men Type: BLOOD SPECIMEN Ordering Facility: [facility] Address: [address] [place] [address] Performed By: #### 2 284-8, 81215-6, 9, 2275-4 #### [facility] CLIA [id number] [address] [place] [address] [place] Immature granulocytes (Bld) [#/Vol] 10*3/uL Normal <0.10 [facility] Comment on above: Order Comment: Speci men Type: BLOOD SPECIMEN Ordering Facility: [facility] Address: [address] [place] [address] Performed By: #### 2 284-8, 52566-6, 2131-9, 2275-4 #### [facility] CLIA [id number] [address] [place] [address] [place] Immature granulocytes/100 WBC (Bld) 0.1 % Normal [facility] Comment on above: Order Comment: Speci men Type: BLOOD SPECIMEN Ordering Facility: [facility] Address: [address] [place] [address] Performed By: #### 2 284-8, 00289-8, 9, 2275-4 #### [facility] CLIA [id number] [address] [place] [address] [place] Lymphocytes (Bld) [#/Vol] 4.27 10*3/uL High 1.00-4.00 [facility] Comment on above: Order Comment: Speci men Type: BLOOD SPECIMEN Ordering Facility: [facility] Address: [address] [place] [address] Performed By: #### 2 284-8, 27722-1, 9, 2275-4 #### [facility] CLIA [id number] [address] [place] [address] [place] Lymphocytes/100 WBC (Bld) 54.2 % Normal [facility] Comment on above: Order Comment: Speci men Type: BLOOD SPECIMEN Ordering Facility: [facility] Address: [address] [place] [address] Performed By: #### 2 284-8, 50995-5, 9, 2275-4 #### [facility] CLIA [id number] [address] [place] [address] [place] MCH (RBC) [Entitic mass] 26.9 pg Normal 26.0-34.0 [facility] Comment on above: Order Comment: Speci men Type: BLOOD SPECIMEN Ordering Facility: [facility] Address: [address] [place] [address] Performed By: #### 2 284-8, 49642-6, 9, 2275-4 #### [facility] CLIA [id number] [address] [place] [address] [place] MCHC (RBC) [Mass/Vol] 30.5 g/dL Normal 30.5-36.0 [facility] Comment on above: Order Comment: Speci men Type: BLOOD SPECIMEN Ordering Facility: [facility] Address: [address] [place] [address] Performed By: #### 2 284-8, 67800-3, 9, 2275-4 #### [facility] CLIA [id number] [address] [place] [address] [place] MCV (RBC) [Entitic vol] 88.2 fL Normal 80.0-100.0 [facility] Comment on above: Order Comment: Speci men Type: BLOOD SPECIMEN Ordering Facility: [facility] Address: [address] [place] [address] Performed By: #### 2 284-8, 37853-4, 2132-01, 2275-08 #### [facility] CLIA [id number] [address] [place] [address] [place] Monocytes (Bld) [#/Vol] 0.96 10*3/uL High <0.87 [facility] Comment on above: Order Comment: Speci men Type: BLOOD SPECIMEN Ordering Facility: [facility] Address: [address] [place] [address] Performed By: #### 2 284-8, 46068-4, 2132-01, 2275-08 #### [facility] CLIA [id number] [address] [place] [address] [place] Monocytes/100 WBC (Bld) 12.2 % Normal C [facility] Comment on above: Order Comment: Speci men Type: BLOOD SPECIMEN Ordering Facility: [facility] Address: [address] [place] [address] Performed By: #### 2 284-8, 66617-3, 2132-01, 2275-08 #### [facility] CLIA [id number] [address] [place], [place] [address] [place] Neutrophils (Bld) [#/Vol] 2.54 10*3/uL Normal 1.45-7.50 [facility] Comment on above: Order Comment: Speci men Type: BLOOD SPECIMEN Ordering Facility: [facility] Address: [address] [place] [address] Performed By: #### 2 284-8, 62723-5, 2132-01, 2275-08 #### [facility] CLIA [id number] [address] [place] [address] [place] Neutrophils/100 WBC (Bld) 32.3 % Normal [facility] Comment on above: Order Comment: Speci men Type: BLOOD SPECIMEN Ordering Facility: [facility] Address: [address] [place] [address] Performed By: #### 2 284-8, 73291-7, 2132-01, 2275-08 #### [facility] CLIA [id number] [address] [place] [address] [place] Nucleated RBC (Bld) [#/Vol] 10*3/uL Normal <0.01 [facility] Comment on above: Order Comment: Speci men Type: BLOOD SPECIMEN Ordering Facility: [facility] Address: [address] [place] [address] Performed By: #### 2 284-8, 67756-1, 2132-01, 2275-08 #### [facility] CLIA [id number] [address] [place] [address] [place] Nucleated RBC/100 WBC (Bld) [Ratio] 0.0 /100 WBC Normal [facility] Comment on above: Order Comment: Speci men Type: BLOOD SPECIMEN Ordering Facility: [facility] Address: [address] [place] [address] Performed By: #### 2 284-8, 97858-7, 2132-01, 2275-08 #### [facility] CLIA [id number] [address] [place] [address] [place] Platelet mean volume (Bld) [Entitic vol] 10.3 fL Normal 9.0-12.7 [facility] Comment on above: Order Comment: Speci men Type: BLOOD SPECIMEN Ordering Facility: [facility] Address: [address] [place] [address] Performed By: #### 2 284-8, 18715-4, 2132-01, 2275-08 #### [facility] CLIA [id number] [address] [place] [address] [place] Platelets (Bld) [#/Vol] 247 10*3/uL Normal 150-400 [facility] Comment on above: Order Comment: Speci men Type: BLOOD SPECIMEN Ordering Facility: [facility] Address: [address] [place] [address] Performed By: #### 2 284-8, 89318-6, 9, 4 #### [facility] CLIA [id number] [address] [place] [address] [place] RBC (Bld) [#/Vol] 4.76 10*6/uL Normal 3.90-5.20 [facility] Comment on above: Order Comment: Speci men Type: BLOOD SPECIMEN Ordering Facility: [facility] Address: [address] [place] [address] Performed By: #### 2 284-8, 91086-6, 2132-01, 2275-08 #### [facility] CLIA [id number] [address] [place] [address] [place] WBC (Bld) [#/Vol] 7.88 10*3/uL Normal 3.70-11.00 [facility] Comment on above: Order Comment: Speci men Type: BLOOD SPECIMEN Ordering Facility: [facility] Address: [address] [place] [address] Performed By: #### 2 284-8, 37208-1, 2131-9, 6-4 #### [facility] CLIA [id number] [address] [place] [address] [place] Comprehensive metabolic 2000 panelon 07-05-2023 Albumin [Mass/Vol] 4.2 g/dL Normal 3.9-4.9 [facility] Comment on above: Order Comment: Speci men Type: BLOOD SPECIMEN Ordering Facility: [facility] Address: [address] [place] [address] Performed By: #### 2 284-8, 95913-1, 2131-9, 6-4 #### [facility] CLIA [id number] [address] [place] [address] [place] ALP [Catalytic activity/Vol] 86 U/L Normal 34-123 [facility] Comment on above: Order Comment: Speci men Type: BLOOD SPECIMEN Ordering Facility: [facility] Address: [address] [place] [address] Performed By: #### 2 284-8, 38436-1, 2131-9, 2275-4 #### [facility] CLIA [id number] [address] [place] [address] [place] ALT [Catalytic activity/Vol] 30 U/L Normal 7-38 [facility] Comment on above: Order Comment: Speci men Type: BLOOD SPECIMEN Ordering Facility: [facility] Address: [address] [place] [address] Performed By: #### 2 284-8, 13725-8, 2131-9, 6-4 #### [facility] CLIA [id number] [address] [place] [address] [place] Anion gap [Moles/Vol] 12 mmol/L Normal 9-18 [facility] Comment on above: Order Comment: Speci men Type: BLOOD SPECIMEN Ordering Facility: [facility] Address: [address] [place] [address] Performed By: #### 2 284-8, 12997-4, 2131-9, 6-4 #### [facility] CLIA [id number] [address] [place] [address] [place] AST [Catalytic activity/Vol] 27 U/L Normal 13-35 [facility] Comment on above: Order Comment: Speci men Type: BLOOD SPECIMEN Ordering Facility: [facility] Address: [address] [place] [address] Performed By: #### 2 284-8, 45851-2, 2131-9, 6-4 #### [facility] CLIA [id number] [address] [place] [address] [place] Bilirubin [Mass/Vol] 0.2 mg/dL Normal 0.2-1.3 [facility] Comment on above: Order Comment: Speci men Type: BLOOD SPECIMEN Ordering Facility: [facility] Address: [address] [place] [address] Performed By: #### 2 284-8, 84848-2, 2131-9, 6-4 #### [facility] CLIA [id number] [address] [place] [address] [place] Calcium [Mass/Vol] 9.7 mg/dL Normal 8.5-10.2 [facility] Comment on above: Order Comment: Speci men Type: BLOOD SPECIMEN Ordering Facility: [facility] Address: [address] [place] [address] Performed By: #### 2 284-8, 80910-1, 2131-9, 6-4 #### [facility] CLIA [id number] [address] [place] [address] [place] Chloride [Moles/Vol] 106 mmol/L High 97-105 [facility] Comment on above: Order Comment: Speci men Type: BLOOD SPECIMEN Ordering Facility: [facility] Address: [address] [place] [address] Performed By: #### 2 284-8, 80181-5, 2131-9, 2275-4 #### [facility] CLIA [id number] [address] [place] [address] [place] CO2 [Moles/Vol] 25 mmol/L Normal 22-30 [facility] Comment on above: Order Comment: Speci men Type: BLOOD SPECIMEN Ordering Facility: [facility] Address: [address] [place] [address] Performed By: #### 2 284-8, 75213-4, 2131-9, 2275-4 #### [facility] IA [id number] [address] [place] [address] [place] Creatinine [Mass/Vol] 0.96 mg/dL Normal 0.58-0.96 [facility] Comment on above: Order Comment: Speci men Type: BLOOD SPECIMEN Ordering Facility: [facility] Address: [address] [place] [address] Performed By: #### 2 284-8, 08276-9, 9, 4 #### [facility] CLIA [id number] [address] [place] [address] [place] Creatinine and Glomerular filtration rate.predicted panel (S/P/Bld) 65 mL/min/1.73m??? Normal >=60 [facility] Comment on above: Order Comment: Speci men Type: BLOOD SPECIMEN Ordering Facility: [facility] Address: [address] [place] [address] Result Comment: Abigail mated Glomerular Filtration Rate [...] reflect actual GFR. Performed By: #### 2 284-8, 96918-7, 2131-9, 2276-4 #### [facility] CLIA [id number] [address] [place] [address] [place] Glucose [Mass/Vol] 103 mg/dL High 74-99 [facility] Comment on above: Order Comment: Rocio shaffer Type: BLOOD SPECIMEN Ordering Facility: [facility] Address: [address] [place] [address] Result Comment: The [place] [employer] (ADA) provides guidance for cutoff [...] Standards of Medical Care in Diabetes 2016, [place] [employer]. Diabetes Care. 2016.39(Suppl 1). Performed By: #### 2 284-8, 07238-4, 2131-9, 2275-4 #### [facility] CLIA [id number] [address] [place] [address] [place] Potassium [Moles/Vol] 4.5 mmol/L Normal 3.7-5.1 [facility] Comment on above: Order Comment: Rocio shaffer Type: BLOOD SPECIMEN Ordering Facility: [facility] Address: [address] [place] [address] Performed By: #### 2 284-8, 25242-4, 9, 2275-4 #### [facility] CLIA [id number] [address] [place] [address] [place] Protein [Mass/Vol] 6.7 g/dL Normal 6.3-8.0 [facility] Comment on above: Order Comment: Rocio shaffer Type: BLOOD SPECIMEN Ordering Facility: [facility] Address: [address] [place] [address] Performed By: #### 2 284-8, 89695-1, 2-9, 6-4 #### [facility] CLIA [id number] [address] [place] [address] [place] Sodium [Moles/Vol] 143 mmol/L Normal 136-144 [facility] Comment on above: Order Comment: Speci men Type: BLOOD SPECIMEN Ordering Facility: [facility] Address: [address] [place] [address] Performed By: #### 2 284-8, 93936-4, 2131-9, 6-4 #### [facility] CLIA [id number] [address] [place] [address] [place] Urea nitrogen [Mass/Vol] 12 mg/dL Normal 7-21 [facility] Comment on above: Order Comment: Speci men Type: BLOOD SPECIMEN Ordering Facility: [facility] Address: [address] [place] [address] Performed By: #### 2 284-8, 19188-3, 2131-9, 2275-4 #### [facility] CLIA [id number] [address] [place] [address] [place] Ferritin SerPl-mCncon 2023 Ferritin [Mass/Vol] 14.3 ng/mL Low 14.7-205.1 [facility] Comment on above: Order Comment: Speci men Type: BLOOD SPECIMEN Ordering Facility: [facility] Address: [address] [place] [address] Performed By: #### 2 284-8, 89563-2, 2131-9, 6-4 #### [facility] CLIA [id number] [address] [place] [address] [place] Folate SerPl-mCncon 07-05-19 24 Folate [Mass/Vol] ng/mL Normal >4.7 [facility] Comment on above: Order Comment: Speci men Type: BLOOD SPECIMEN Ordering Facility: [facility] Address: [address] [place] [address] Result Comment: A re sult of > 20 ng/mL is not necessarily indicative of a pathologic or treatable condition: it reflects a limitation of the test methodology. Assay reference range: 4.8 to 24.2 ng/mL. Suitable for detection of folate deficiency. Reference: Folate III (Folate III) [package insert V 1.0 Filipino]. [facility], [place], [place]: March 2015. Performed By: #### 2 284-8, 67273-4, 2-9, 6-4 #### [facility] CLIA [id number] [address] [place] [address] [place] Iron and Iron binding capaci ty panelon 07-05-2023 Iron [Mass/Vol] 100 ug/dL Normal 41-186 [facility] Comment on above: Order Comment: Speci men Type: BLOOD SPECIMEN Ordering Facility: [facility] Address: [address] [place] [address] Performed By: #### 2 284-8, 60616-4, 2131-9, 6-4 #### [facility] CLIA [id number] [address] [place] [address] [place] Iron binding capacity [Mass/Vol] 434 ug/dL High 232-386 [facility] Comment on above: Order Comment: Speci men Type: BLOOD SPECIMEN Ordering Facility: [facility] Address: [address] [place] [address] Performed By: #### 2 284-8, 77295-6, 2131-9, 6-4 #### [facility] CLIA [id number] [address] [place] [address] [place] Iron/TIBC [Molar ratio] 23.0 % Normal 15.0-57.[address] [facility] Comment on above: Order Comment: Speci men Type: BLOOD SPECIMEN Ordering Facility: [facility] Address: [address] [place] [address] Performed By: #### 2 284-8, 30735-2, 2131-9, 6-4 #### [facility] CLIA [id number] [address] [place] [address] [place] Vit B12 SerPl-mCncon 07-05- 024 Cobalamin (Vitamin B12) [Mass/Vol] 309 pg/mL Normal 232-1245 [facility] Comment on above: Order Comment: Speci men Type: BLOOD SPECIMEN Ordering Facility: [facility] Address: [address] [place] [address] Performed By: #### 2 284-8, 21445-0, 2131-9, 2275-4 #### [facility] CLIA [id number] [address] [place] [address] [place] CNOVon 06-24-2023 CNOV Office Visit (UROLAV ) MICHAEL FERRERANyasia Reagan ([id number]) 1955 F Date Time Provider Department 06/24/23 9:00 AM [facility] UROLAV During your visit today, we recorded the following information about you: Monica Wallace Ma 06/24/2023 12:13 PM Signed PVR = 0 ml Via bladder scan. Dallas Lombardo MD 06/24/2023 12:13 PM Signed [facility] UROLOGY VISIT Follow Up [facility] [...] Intermittent Intervention/Comfort measure Pain Comments Questionnaire: [facility] Additional Demo Question Answer Is this visit related to an accident, other than Workers' Compensation? No Is this visit related to Workers' Compensation? No Do you need an process server? No Questionnaire: [facility] Promis 10 Adult Short Form V1.0 Global [...] CYSTO.PANENDO 06/05/2021 CYSTOURETHROSCOPY 06/20/15 Cystoscopy; Dr. Lombardo; [place] [facility] ELBOW SURGERY HX Left HYSTERECTOMY HX 1995 left overy and hysterectomy. ROTATOR CUFF REPAIR 2013,2014 Left x 2 SHOULDER SURGERY HX Right TONSILLECTOMY HX TONSILLECTOMY HX Social History Tobacco Use Smoking (more content not included)... Normal [facility] CBC W Auto Differential pane l (Bld)on 04-01-2023 Basophils (Bld) [#/Vol] 0.20 10*3/uL High [facility] Basophils/100 WBC (Bld) 3.0 % C [facility] Differential cell count method Nom (Bld) Manual [facility] Eosinophils (Bld) [#/Vol] 0.40 10*3/uL [facility] Eosinophils/100 WBC (Bld) 6.0 % [facility] Erythrocyte distribution width (RBC) [Ratio] 14.0 % 11.5 - 15.0 % [facility] Hematocrit (Bld) [Volume fraction] 42.2 % 36.0 - 46.0 % [facility] Hemoglobin (Bld) [Mass/Vol] 13.3 g/dL 11.5 - 15.5 g/dL [facility] Interpretation and review of laboratory results Abnormal [facility] Lymphocytes (Bld) [#/Vol] 3.56 10*3/uL [facility] Lymphocytes/100 WBC (Bld) 54.0 % [facility] MCH (RBC) [Entitic mass] 27.4 pg 26. 0 - 34.0 pg [facility] MCHC (RBC) [Mass/Vol] 31.5 g/dL 30.5 - 36.0 g/dL [facility] MCV (RBC) [Entitic vol] 86.8 fL 80.0 - 100.0 fL [facility] Monocytes (Bld) [#/Vol] 0.66 10*3/uL [facility] Monocytes/100 WBC (Bld) 10.0 % [facility] Neutrophils (Bld) [#/Vol] 1.78 10*3/uL [facility] Neutrophils/100 WBC (Bld) 27.0 % [facility] Nucleated RBC (Bld) [#/Vol] [facility] Nucleated RBC/100 WBC (Bld) [Ratio] 0.0 % /100 WBC [facility] Ovalocytes LM Ql (Bld) Few Cl [facility] Platelet mean volume (Bld) [Entitic vol] 10.5 fL 9.0 - 12.7 fL [facility] Platelets (Bld) [#/Vol] 265 10*3/uL [facility] Platelets Estimate (Bld) [#/Vol] Adequate [facility] RBC (Bld) [#/Vol] 4.86 10*6/uL 3.90 - 5.2 0 m/uL [facility] Red Cell Morph Reviewed: see result s of individual morphologies [facility] WBC (Bld) [#/Vol] 6.59 10*3/uL [facility] This is an appended report. These results have been appended to a previously verified report. [facility] CBC W Auto Differential pane l (Bld)on 03-31-2023 Basophils (Bld) [#/Vol] 0.20 10*3/uL High <0.11 [facility] Comment on above: Order Comment: Speci men Type: BLOOD SPECIMEN Ordering Facility: [facility] Address: [address] [place] [address] Performed By: #### 2 284-8, 59303-7, 9, 2275-08 #### [facility] CLIA [id number] [address] [place] [address] [place] Basophils/100 WBC (Bld) 3.0 % Normal C [facility] Comment on above: Order Comment: Speci men Type: BLOOD SPECIMEN Ordering Facility: [facility] Address: [address] [place] [address] Performed By: #### 2 284-8, 64313-9, 9, 2275-08 #### [facility] CLIA [id number] [address] [place] [address] [place] Differential cell count method Nom (Bld) Manual Normal [facility] Comment on above: Order Comment: Speci men Type: BLOOD SPECIMEN Ordering Facility: [facility] Address: [address] [place] [address] Performed By: #### 2 284-8, 96811-0, 9, 2275-08 #### [facility] CLIA [id number] [address] [place] [address] [place] Eosinophils (Bld) [#/Vol] 0.40 10*3/uL Normal <0.46 [facility] Comment on above: Order Comment: Speci men Type: BLOOD SPECIMEN Ordering Facility: [facility] Address: [address] [place] [address] Performed By: #### 2 284-8, 91749-7, 9, 2275-08 #### [facility] CLIA [id number] [address] [place] [address] [place] Eosinophils/100 WBC (Bld) 6.0 % Normal [facility] Comment on above: Order Comment: Speci men Type: BLOOD SPECIMEN Ordering Facility: [facility] Address: [address] [place] [address] Performed By: #### 2 284-8, 75617-9, 9, 2275-4 #### [facility] CLIA [id number] [address] [place] [address] [place] Erythrocyte distribution width (RBC) [Ratio] 14.0 % Normal 11.5-15.0 [facility] Comment on above: Order Comment: Speci men Type: BLOOD SPECIMEN Ordering Facility: [facility] Address: [address] [place] [address] Performed By: #### 2 284-8, 75141-4, 9, 4 #### [facility] CLIA [id number] [address] [place] [address] [place] Hematocrit (Bld) [Volume fraction] 42.2 % Normal 36.0-46.0 [facility] Comment on above: Order Comment: Speci men Type: BLOOD SPECIMEN Ordering Facility: [facility] Address: [address] [place] [address] Performed By: #### 2 284-8, 92906-7, 9, 4 #### [facility] CLIA [id number] [address] [place] [address] [place] Hemoglobin (Bld) [Mass/Vol] 13.3 g/dL Normal 11.5-15.5 [facility] Comment on above: Order Comment: Speci men Type: BLOOD SPECIMEN Ordering Facility: [facility] Address: [address] [place] [address] Performed By: #### 2 284-8, 64912-5, 9, 4 #### [facility] CLIA [id number] [address] [place] [address] [place] Lymphocytes (Bld) [#/Vol] 3.56 10*3/uL Normal 1.00-4.00 [facility] Comment on above: Order Comment: Speci men Type: BLOOD SPECIMEN Ordering Facility: [facility] Address: [address] [place] [address] Performed By: #### 2 284-8, 32567-7, 9, 4 #### [facility] CLIA [id number] [address] [place] [address] [place] Lymphocytes/100 WBC (Bld) 54.0 % Normal [facility] Comment on above: Order Comment: Speci men Type: BLOOD SPECIMEN Ordering Facility: [facility] Address: [address] [place] [address] Performed By: #### 2 284-8, 93343-2, 9, 2275-08 #### [facility] CLIA [id number] [address] [place] [address] [place] MCH (RBC) [Entitic mass] 27.4 pg Normal 26.0-34.0 [facility] Comment on above: Order Comment: Speci men Type: BLOOD SPECIMEN Ordering Facility: [facility] Address: [address] [place] [address] Performed By: #### 2 284-8, 39537-3, 2132-01, 2275-08 #### [facility] CLIA [id number] [address] [place] [address] [place] MCHC (RBC) [Mass/Vol] 31.5 g/dL Normal 30.5-36.0 [facility] Comment on above: Order Comment: Speci men Type: BLOOD SPECIMEN Ordering Facility: [facility] Address: [address] [place] [address] Performed By: #### 2 284-8, 95234-7, 9, 2275-08 #### [facility] CLIA [id number] [address] [place] [address] [place] MCV (RBC) [Entitic vol] 86.8 fL Normal 80.0-100.[address] [facility] Comment on above: Order Comment: Speci men Type: BLOOD SPECIMEN Ordering Facility: [facility] Address: [address] [place] [address] Performed By: #### 2 284-8, 86382-8, 2132-01, 2275-08 #### [facility] CLIA [id number] [address] [place] [address] [place] Monocytes (Bld) [#/Vol] 0.66 10*3/uL Normal <0.87 [facility] Comment on above: Order Comment: Speci men Type: BLOOD SPECIMEN Ordering Facility: [facility] Address: [address] [place] [address] Performed By: #### 2 284-8, 71910-9, 2132-01, 2275-08 #### [facility] CLIA [id number] [address] [place] [address] [place] Monocytes/100 WBC (Bld) 10.0 % Normal C [facility] Comment on above: Order Comment: Speci men Type: BLOOD SPECIMEN Ordering Facility: [facility] Address: [address] [place] [address] Performed By: #### 2 284-8, 27513-9, 2132-01, 2275-08 #### [facility] CLIA [id number] [address] [place] [address] [place] Neutrophils (Bld) [#/Vol] 1.78 10*3/uL Normal 1.45-7.50 [facility] Comment on above: Order Comment: Speci men Type: BLOOD SPECIMEN Ordering Facility: [facility] Address: [address] [place] [address] Performed By: #### 2 284-8, 55529-7, 2132-01, 2275-08 #### [facility] CLIA [id number] [address] [place] [address] [place] Neutrophils/100 WBC (Bld) 27.0 % Normal [facility] Comment on above: Order Comment: Speci men Type: BLOOD SPECIMEN Ordering Facility: [facility] Address: [address] [place] [address] Performed By: #### 2 284-8, 40356-6, 2132-01, 2275-08 #### [facility] CLIA [id number] [address] [place] [address] [place] Nucleated RBC (Bld) [#/Vol] 10*3/uL Normal <0.01 [facility] Comment on above: Order Comment: Speci men Type: BLOOD SPECIMEN Ordering Facility: [facility] Address: [address] [place] [address] Performed By: #### 2 284-8, 78890-5, 2132-01, 2275-08 #### [facility] CLIA [id number] [address] [place] [address] [place] Nucleated RBC/100 WBC (Bld) [Ratio] 0.0 /100 WBC Normal [facility] Comment on above: Order Comment: Speci men Type: BLOOD SPECIMEN Ordering Facility: [facility] Address: [address] [place] [address] Performed By: #### 2 284-8, 31905-4, 2132-01, 2275-08 #### [facility] CLIA [id number] [address] [place] [address] [place] Ovalocytes LM Ql (Bld) Few Normal Cl [facility] Comment on above: Order Comment: Speci men Type: BLOOD SPECIMEN Ordering Facility: [facility] Address: [address] [place] [address] Performed By: #### 2 284-8, 47122-7, 2132-01, 2275-08 #### [facility] CLIA [id number] [address] [place] [address] [place] Platelet mean volume (Bld) [Entitic vol] 10.5 fL Normal 9.0-12.7 [facility] Comment on above: Order Comment: Speci men Type: BLOOD SPECIMEN Ordering Facility: [facility] Address: [address] [place] [address] Performed By: #### 2 284-8, 47500-8, 9, 2275-4 #### [facility] CLIA [id number] [address] [place] [address] [place] Platelets (Bld) [#/Vol] 265 10*3/uL Normal 150-400 [facility] Comment on above: Order Comment: Speci men Type: BLOOD SPECIMEN Ordering Facility: [facility] Address: [address] [place] [address] Performed By: #### 2 284-8, 45839-9, 9, 4 #### [facility] CLIA [id number] [address] [place] [address] [place] Platelets Estimate (Bld) [#/Vol] Adequate Normal [facility] Comment on above: Order Comment: Speci men Type: BLOOD SPECIMEN Ordering Facility: [facility] Address: [address] [place] [address] Performed By: #### 2 284-8, 35578-8, 9, 2275-4 #### [facility] CLIA [id number] [address] [place] [address] [place] RBC (Bld) [#/Vol] 4.86 10*6/uL Normal 3.90-5.20 [facility] Comment on above: Order Comment: Speci men Type: BLOOD SPECIMEN Ordering Facility: [facility] Address: [address] [place] [address] Performed By: #### 2 284-8, 63501-9, 9, 4 #### [facility] CLIA [id number] [address] [place] [address] [place] RED CELL MORPH Reviewed: see result s of individual morphologies Normal [facility] Comment on above: Order Comment: Speci men Type: BLOOD SPECIMEN Ordering Facility: [facility] Address: [address] [place] [address] Performed By: #### 2 284-8, 18997-3, 2-9, 6-4 #### [facility] CLIA [id number] [address] [place] [address] [place] WBC (Bld) [#/Vol] 6.59 10*3/uL Normal 3.70-11.00 [facility] Comment on above: Order Comment: Speci men Type: BLOOD SPECIMEN Ordering Facility: [facility] Address: [address] [place] [address] Performed By: #### 2 284-8, 09764-5, 2131-9, 6-4 #### [facility] CLIA [id number] [address] [place] [address] [place] [address] CHEST W IVCONon 3 CT CHEST W IVCON * * *Final Report* * * DATE OF EXAM: Mar 31 2023 9:25AM [facility] 0539 - CT CHEST W IVCON / [...] any questions regarding this interpretation, please call [phone]. If you are unable to reach us at the number above, please feel free to contact [facility] at [phone]. [id number] Normal [facility] CT Chest W contrast Lorrie IMPRESSION: 1. Interval resolution of previously noted [...] any questions regarding this interpretation, please call [phone]. If you are unable to reach us at the number above, please feel free to contact [facility] at [phone]. DIVISION OF RADIOLOGY * * *Final Report* * * DATE OF EXAM: Mar 31 2023 9:25AM [facility] 0539 - CT CHEST W IVCON / [...] or blastic osseous lesions. Upper abdomen: Stable DIVISION OF RADIOLOGY Provider, [facility] - 03/31/2023 * * *Final Report* * * DATE OF EXAM: Mar 31 2023 9:25AM [facility] 0539 - CT CHEST W IVCON / [...] or blastic osseous lesions. Upper abdomen: Stable IMPRESSION IMPRESSION: 1. Interval resolution of previously noted [...] any questions regarding this interpretation, please call [phone]. If you are unable to reach us at the number above, please feel free to contact [facility] at [phone]. [facility] Radiology Study observation (narrative) Zakiya medellin [facility] CT Chest W contrast IVOrdere d By: [facility] Provider on 03-31-2023 [facility] Cobalamin (Vitamin B12) [Mas s/Vol]on 03-31-2023 Interpretation and review of laboratory results Normal [facility] Comprehensive metabolic 2000 panelOrdered By: Kieran Taylor on 03-31-2023 Albumin [Mass/Vol] 4.5 g/dL 3.9 - 4.9 g/dL [facility] ALP [Catalytic activity/Vol] 85 U/L 34 - 123 U/L [facility] ALT [Catalytic activity/Vol] 20 U/L 7 - 38 U/L [facility] Anion gap [Moles/Vol] 9 mmol/L 9 - 18 mmol/L [facility] AST [Catalytic activity/Vol] 22 U/L 13 - 35 U/L [facility] Bilirubin [Mass/Vol] 0.3 mg/dL 0.2 - 1 .3 mg/dL [facility] Calcium [Mass/Vol] 9.6 mg/dL 8.5 - 10. 2 mg/dL [facility] Chloride [Moles/Vol] 105 mmol/L 97 - 10 5 mmol/L [facility] CO2 [Moles/Vol] 28 mmol/L 22 - 30 mmol/L [facility] Creatinine [Mass/Vol] 0.98 mg/dL High 0.58 - 0.96 mg/dL [facility] GFR/1.73 sq M.predicted among non-blacks MDRD (S/P/Bld) [Vol rate/Area] 64 mL/min/{1.73_m2} - PINF [facility] Comment on above: Estimated Glomerular Filtration Rate (eGFR) is calculated using the 2020 CKD-EPI creatinine equation. This equation utilizes serum creatinine, sex, and age as parameters. The creatinine assay has traceable calibration to isotope dilution-mass spectrometry. Refer to KDIGO guidelines for clinical interpretation. In patients with unstable renal function, e.g. those with acute kidney injury, the eGFR may not accurately reflect actual GFR. Glucose [Mass/Vol] 102 mg/dL High 74 - 99 mg/dL [facility] Comment on above: The [place] Diabete s Association (ADA) provides guidance for cutoff values [...] Standards of Medical Care in Diabetes 2016, [place] Diabetes Association. Diabetes Care. 2016.39(Suppl 1). Interpretation and review of laboratory results Abnormal [facility] Potassium [Moles/Vol] 4.2 mmol/L 3.7 - 5.1 mmol/L [facility] Protein [Mass/Vol] 7.0 g/dL 6.3 - 8.0 g/dL [facility] Sodium [Moles/Vol] 142 mmol/L 136 - 144 mmol/L [facility] Urea nitrogen [Mass/Vol] 9 mg/dL 7 - 21 mg/dL [facility] Comprehensive metabolic 2000 panelon 03-31-2023 Albumin [Mass/Vol] 4.5 g/dL Normal 3.9-4.9 [facility] Comment on above: Order Comment: Speci men Type: BLOOD SPECIMEN Ordering Facility: [facility] Address: [address] [place] [address] Performed By: #### 2 284-8, 68534-6, 2132-01, 2275-08 #### [facility] CLIA [id number] [address] [place] [address] [place] ALP [Catalytic activity/Vol] 85 U/L Normal 34-123 [facility] Comment on above: Order Comment: Speci men Type: BLOOD SPECIMEN Ordering Facility: [facility] Address: [address] [place] [address] Performed By: #### 2 284-8, 39133-5, 2132-01, 4 #### [facility] CLIA [id number] [address] [place] [address] [place] ALT [Catalytic activity/Vol] 20 U/L Normal 7-38 [facility] Comment on above: Order Comment: Speci men Type: BLOOD SPECIMEN Ordering Facility: [facility] Address: [address] [place] [address] Performed By: #### 2 284-8, 63927-4, 2132-01, 4 #### [facility] CLIA [id number] [address] [place] [address] [place] Anion gap [Moles/Vol] 9 mmol/L Normal 9-18 [facility] Comment on above: Order Comment: Speci men Type: BLOOD SPECIMEN Ordering Facility: [facility] Address: [address] [place] [address] Performed By: #### 2 284-8, 32920-0, 9, 4 #### [facility] CLIA [id number] [address] [place] [address] [place] AST [Catalytic activity/Vol] 22 U/L Normal 13-35 [facility] Comment on above: Order Comment: Speci men Type: BLOOD SPECIMEN Ordering Facility: [facility] Address: [address] [place] [address] Performed By: #### 2 284-8, 74278-3, 9, 4 #### [facility] CLIA [id number] [address] [place] [address] [place] Bilirubin [Mass/Vol] 0.3 mg/dL Normal 0.2-1.3 [facility] Comment on above: Order Comment: Speci men Type: BLOOD SPECIMEN Ordering Facility: [facility] Address: [address] [place] [address] Performed By: #### 2 284-8, 19666-4, 2132-01, 2275-08 #### [facility] CLIA [id number] [address] [place] [address] [place] Calcium [Mass/Vol] 9.6 mg/dL Normal 8.5-10.2 [facility] Comment on above: Order Comment: Speci men Type: BLOOD SPECIMEN Ordering Facility: [facility] Address: [address] [place] [address] Performed By: #### 2 284-8, 56502-2, 9, 4 #### [facility] CLIA [id number] [address] [place] [address] [place] Chloride [Moles/Vol] 105 mmol/L Normal 97-105 [facility] Comment on above: Order Comment: Speci men Type: BLOOD SPECIMEN Ordering Facility: [facility] Address: [address] [place] [address] Performed By: #### 2 284-8, 17878-1, 9, 2275-4 #### [facility] CLIA [id number] [address] [place] [address] [place] CO2 [Moles/Vol] 28 mmol/L Normal 22-30 [facility] Comment on above: Order Comment: Speci men Type: BLOOD SPECIMEN Ordering Facility: [facility] Address: [address] [place] [address] Performed By: #### 2 284-8, 68160-0, 2131-9, 2275-4 #### [facility] CLIA [id number] [address] [place] [address] [place] Creatinine [Mass/Vol] 0.98 mg/dL High 0.58-0.96 [facility] Comment on above: Order Comment: Speci men Type: BLOOD SPECIMEN Ordering Facility: [facility] Address: [address] [place] [address] Performed By: #### 2 284-8, 04704-4, 9, 4 #### [facility] CLIA [id number] [address] [place] [address] [place] Creatinine and Glomerular filtration rate.predicted panel (S/P/Bld) 64 mL/min/1.73m??? Normal >=60 [facility] Comment on above: Order Comment: Speci men Type: BLOOD SPECIMEN Ordering Facility: [facility] Address: [address] [place] [address] Result Comment: Abigail mated Glomerular Filtration Rate [...] reflect actual GFR. Performed By: #### 2 284-8, 17107-1, 2132-01, 4 #### [facility] CLIA [id number] [address] [place] [address] [place] Glucose [Mass/Vol] 102 mg/dL High 74-99 [facility] Comment on above: Order Comment: Rocio shaffer Type: BLOOD SPECIMEN Ordering Facility: [facility] Address: [address] [place] [address] Result Comment: The [place] Diabetes Association (ADA) provides guidance for cutoff [...] Standards of Medical Care in Diabetes 2016, [place] Diabetes Association. Diabetes Care. 2016.39(Suppl 1). Performed By: #### 2 284-8, 80702-0, 2132-01, 2275-08 #### [facility] CLIA [id number] [address] [place] [address] [place] Potassium [Moles/Vol] 4.2 mmol/L Normal 3.7-5.1 [facility] Comment on above: Order Comment: Rocio shaffer Type: BLOOD SPECIMEN Ordering Facility: [facility] Address: [address] [place] [address] Performed By: #### 2 284-8, 38845-9, 2132-01, 4 #### [facility] CLIA [id number] [address] [place] [address] [place] Protein [Mass/Vol] 7.0 g/dL Normal 6.3-8.0 [facility] Comment on above: Order Comment: Speci men Type: BLOOD SPECIMEN Ordering Facility: [facility] Address: [address] [place] [address] Performed By: #### 2 284-8, 97153-4, 2132-01, 2275-08 #### [facility] CLIA [id number] [address] [place] [address] [place] Sodium [Moles/Vol] 142 mmol/L Normal 136-144 [facility] Comment on above: Order Comment: Speci men Type: BLOOD SPECIMEN Ordering Facility: [facility] Address: [address] [place] [address] Performed By: #### 2 284-8, 44757-5, 9, 2275-08 #### [facility] CLIA [id number] [address] [place] [address] [place] Urea nitrogen [Mass/Vol] 9 mg/dL Normal 7-21 [facility] Comment on above: Order Comment: Speci men Type: BLOOD SPECIMEN Ordering Facility: [facility] Address: [address] [place] [address] Performed By: #### 2 284-8, 23608-8, 9, 2275-08 #### [facility] CLIA [id number] [address] [place] [address] [place] FERRITIN BLDon 03-31-2023 Ferritin [Mass/Vol] 11.8 ng/mL Low 14.7 - 205.1 ng/mL [facility] FOLATE SERUMon 03-31-2023 Folate [Mass/Vol] [facility] Comment on above: Unable to assay due to interference from hemolysis. Suggest reorder as clinically indicated. Ferritin SerPl-mCncon 2022 Ferritin [Mass/Vol] 11.8 ng/mL Low 14.7-205.1 [facility] Comment on above: Order Comment: Speci men Type: BLOOD SPECIMEN Ordering Facility: [facility] Address: [address] [place] [address] Performed By: #### 2 284-8, 53004-4, 9, 2275-08 #### [facility] CLIA [id number] [address] [place] [address] [place] Ferritin [Mass/Vol]on 2022 Interpretation and review of laboratory results Abnormal [facility] Folate SerPl-mCncon 03-31-20 23 Folate [Mass/Vol] Normal [facility] Comment on above: Order Comment: Speci men Type: BLOOD SPECIMEN Ordering Facility: [facility] Address: [address] [place] [address] Result Comment: Unab le to assay due to interference from hemolysis. Suggest reorder as clinically indicated. Performed By: #### 2 284-8, 86538-3, 9, 2275-08 #### [facility] CLIA [id number] [address] [place], [place] [address] [place] Iron and Iron binding capaci [facility] Iron [Mass/Vol] 63 ug/dL 41 - 186 ug/dL [facility] Iron binding capacity [Mass/Vol] [facility] Comment on above: Unable to calculate due to hemolysis. Iron/TIBC [Molar ratio] [facility] Comment on above: Unable to calculate due to hemolysis. [facility] Iron [Mass/Vol] 63 ug/dL Normal 41-186 [facility] Comment on above: Order Comment: Speci men Type: BLOOD SPECIMEN Ordering Facility: [facility] Address: [address] [place] [address] Performed By: #### 2 284-8, 25072-5, 9, 4 #### [facility] CLIA [id number] [address] [place] [address] [place] Iron binding capacity [Mass/Vol] Normal [facility] Comment on above: Order Comment: Speci men Type: BLOOD SPECIMEN Ordering Facility: [facility] Address: [address] [place] [address] Result Comment: Unab le to calculate due to hemolysis. Performed By: #### 2 284-8, 96909-4, 2-9, 6-4 #### [facility] CLIA [id number] [address] [place] [address] [place] Iron/TIBC [Molar ratio] Normal C [facility] Comment on above: Order Comment: Speci men Type: BLOOD SPECIMEN Ordering Facility: [facility] Address: [address] [place] [address] Result Comment: Unab le to calculate due to hemolysis. Performed By: #### 2 284-8, 42907-3, 2-9, 6-4 #### [facility] CLIA [id number] [address] [place] [address] [place] No Panel Informationon 03-31 [facility] VITAMIN B12 BLOODon 03-31-20 23 Cobalamin (Vitamin B12) [Mass/Vol] 327 pg/mL 232 - 1245 pg/mL [facility] Vit B12 SerPl-mCncon 023 Cobalamin (Vitamin B12) [Mass/Vol] 327 pg/mL Normal 232-1245 [facility] Comment on above: Order Comment: Speci men Type: BLOOD SPECIMEN Ordering Facility: [facility] Address: [address] [place] [address] Performed By: #### 2 284-8, 90610-5, 2131-9, 6-4 #### [facility] CLIA [id number] [address] [place] [address] [place] MM screening mammo BI w/CADo n 02-22-2023 MM screening mammo BI w/CAD [facility] Main [address] [address] Mammography Report Signed Patient: Jessica Ferrera MR#: [id number] 7 : 1955 Acct:[id number] Age/Sex: 67 / F ADM Date: 02/22/23 Loc: [place] Room: [facility] Attending Dr: Referral Self Copies to: Ricardo [...] Juvenal Hanley M.D.02/22/2023 10:30 AM Dictation Location: [facility] Transcribed By: [facility] 02/22/23 1030 Dictated By: Juvenal Hanley DO 02/22/23 1029 Signed By: 02/22/23 1030 [facility] Basic Metabolic Profon 01-12 Anion gap [Moles/Vol] 10 mmol/L Normal 9-17 [facility] Comment on above: Performed By: #### C DP, BMP ####[facility] [address] [place] [address] lab Director: Jelani Liu MD BUN/CRE Ratio 14 Normal 9-20 [facility] Comment on above: Performed By: #### C DP, BMP ####[facility] [address] [facility] [place] [address] lab Director: Jelani Liu MD Calcium [Mass/Vol] 8.5 mg/dL Low 8.6-10.4 [facility] Comment on above: Performed By: #### C DP, BMP ####[facility] [address] [facility] [place], [place] [id number] Director: Jelani Liu MD Chloride [Moles/Vol] 108 mmol/L High 98-107 [facility] Comment on above: Performed By: #### C DP, BMP ####[facility] I[address] [facility] [place], [place] [id number] Director: Jelani Liu MD CO2 [Moles/Vol] 23 mmol/L Normal 20-31 [facility] Comment on above: Performed By: #### C DP, BMP ####[facility] [address] [facility] [place], [place] [id number] Director: Jelani Liu MD Creatinine [Mass/Vol] 0.8 mg/dL Normal 0.5-0.9 [facility] Comment on above: Performed By: #### C DP, BMP ####[facility] [address] [facility] [place] [address] Lab Director: Jelani Liu MD GFR/1.73 sq M.predicted among non-blacks MDRD (S/P/Bld) [Vol rate/Area] mL/min/{1.73_m2} Normal >60 [facility] Comment on above: Result Comment: [...] secretion. Performed By: #### C DP, BMP ####[facility] Wxx[address] [facility] [place], [place] [phone] Director: Jelani Liu MD Glucose [Mass/Vol] 156 mg/dL High 70-99 [facility] Comment on above: Performed By: #### C DP, BMP ####[facility] [address] [place] [address] Lab Director: Jelani Liu MD Potassium [Moles/Vol] 4.5 mmol/L Normal 3.7-5.3 [facility] Comment on above: Performed By: #### C DP, BMP ####[facility] [address] [place] [address] Lab Director: Jelani Liu MD Sodium [Moles/Vol] 141 mmol/L Normal 135-144 [facility] Comment on above: Performed By: #### C DP, BMP ####[facility] [address] [place] [address] Lab Director: Jelani Liu MD Urea nitrogen [Mass/Vol] 11 mg/dL Normal 8-23 [facility] Comment on above: Performed By: #### C DP, BMP ####[facility] [address] [place] [address] Lab Director: Jelani Liu MD CBC with Diffon 01-12-2023 Abs. Basophil <0.03 Normal 0.00-0.20 [facility] Comment on above: Performed By: #### C DP, BMP ####[facility] [address] [place] [address] Lab Director: Jelani Liu MD Abs. Eosinophil <0.03 Normal 0.00-0.44 [facility] Comment on above: Performed By: #### C DP, BMP ####[facility] [address] [place] [address] Lab Director: Jelani Liu MD Abs.Imm.Granulocyte 0.05 k/uL Normal 0.00-0.30 [facility] Comment on above: Performed By: #### C DP, BMP ####[facility] [address] [place] [address] Lab Director: Jelani Liu MD Abs.Neutrophil (Seg) 10.35 k/uL High 1.50-8.10 [facility] Comment on above: Performed By: #### C DP, BMP ####[facility] [address] [place] [address] Lab Director: Jelani Liu MD Basophils/100 WBC (Bld) 0 % Normal 0-2 [facility] Comment on above: Performed By: #### C DP, BMP ####[facility] [address] [place] [address] Lab Director: Jelani Liu MD Eosinophils/100 WBC (Bld) 0 % Low 1-4 [facility] Comment on above: Performed By: #### C DP, BMP ####[facility] [address] [place] [address] Lab Director: Jelani Liu MD Erythrocyte distribution width (RBC) [Ratio] 12.9 % Normal 11.8-14.4 [facility] Comment on above: Performed By: #### C DP, BMP ####[facility] [address] [place] [address] Lab Director: Jelani Liu MD Hematocrit (Bld) [Volume fraction] 37.4 % Normal 36.3-47.1 [facility] Comment on above: Performed By: #### C DP, BMP ####[facility] [address] [place] [address] Lab Director: Jelani Liu MD Hemoglobin (Bld) [Mass/Vol] 11.8 g/dL Low 11.9-15.1 [facility] Comment on above: Performed By: #### C DP, BMP ####[facility] [address] [place] [address] Lab Director: Jelani Liu MD Immature granulocytes/100 WBC (Bld) 0 % Normal 0 [facility] Comment on above: Performed By: #### C DP, BMP ####[facility] [address] [place] [address] Lab Director: Jelani Liu MD Lymphocytes (Bld) [#/Vol] 1.70 10*3/uL Normal 1.10-3.70 [facility] Comment on above: Performed By: #### C DP, BMP ####[facility] [address] [place], [place] [phone] Director: Jelani Liu MD Lymphocytes/100 WBC (Bld) 13 % Low 24-43 [facility] Comment on above: Performed By: #### C DP, BMP ####[facility] [address] [place] [address] Lab Director: Jelani Liu MD MCH (RBC) [Entitic mass] 29.7 pg Normal 25.2-33.5 [facility] Comment on above: Performed By: #### C DP, BMP ####[facility] [address] [place] [phone] Director: Jelani Liu MD MCHC (RBC) [Mass/Vol] 31.6 g/dL Normal 28.4-34.8 [facility] Comment on above: Performed By: #### C DP, BMP ####[facility] [address] [place] [phone] Director: Jelani Liu MD MCV (RBC) [Entitic vol] 94.2 fL Normal 82.6-102.9 [facility] Comment on above: Performed By: #### C DP, BMP ####[facility] G[address] [facility] [place] [address] Lab Director: Jelani Liu MD Monocytes (Bld) [#/Vol] 0.61 10*3/uL Normal 0.10-1.20 [facility] Comment on above: Performed By: #### C DP, BMP ####[facility] [address] [place] [facility] [place] [address] Lab Director: Jelani Liu MD Monocytes/100 WBC (Bld) 5 % Normal 3-12 [facility] Comment on above: Performed By: #### C DP, BMP ####[facility] [address] [place] [address].[place] [address] Lab Director: Jelani Liu MD Neutrophil (Seg) 82 % High 36-65 [facility] Comment on above: Performed By: #### C DP, BMP ####[facility] [address] [place] [address].[place] [address] Lab Director: Jelani Liu MD NRBC Automated 0.0 per 100 WBC Normal 0.0 [facility] Comment on above: Performed By: #### C DP, BMP ####[facility] [address] [place] [address].[place] [address] Lab Director: Jelani Liu MD Platelet mean volume (Bld) [Entitic vol] 10.1 fL Normal 8.1-13.5 [facility] Comment on above: Performed By: #### C DP, BMP ####[facility] [address] [facility] [place] [address] Lab Director: Jelani Liu MD Platelets (Bld) [#/Vol] 221 10*3/uL Normal 138-453 [facility] Comment on above: Performed By: #### C DP, BMP ####[facility] [address] [place] [address] Lab Director: Jelani Liu MD RBC (Bld) [#/Vol] 3.97 10*6/uL Normal 3.95-5.11 [facility] Comment on above: Performed By: #### C DP, BMP ####[facility] [address] [place] [address] Lab Director: Jelani Liu MD WBC (Bld) [#/Vol] 12.7 10*3/uL High 3.5-11.3 [facility] Comment on above: Performed By: #### C DP, BMP ####[facility] N[address] [facility] [place] [address] Lab Director: Jelani Liu MD FLUORO FOR SURGICAL PROCEDUR ESon 01-11-2023 FLUORO FOR SURGICAL PROCEDURES Radiology exam is complete. No Radiologist dictation. Please follow up with ordering provider. 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 Results should be used as an adjunct to nosocomial control efforts to identify patients needing enhanced precautions. The test is not intended to identify patients with staphylococcal infections. Results should not be used to guide or monitor treatment for MRSA infections. Performed By: #### M RSA ####[facility] [address] [place] [address] [phone] Director: Jelani Liu [address] [address] Lab Director: Terrance Luevano MD APTTon 12-21-2022 aPTT Coag (Bld) [Time] 27.5 s Normal 23.9-33.8 [facility] Comment on above: Result Comment: IV Heparin Therapy Range: 62.0-94.0 Performed By: #### B MP, PT, PTT, CDP #### [facility] [address] [place] [address] Operating Theatre Technician: Jelani Liu MD Basic Metabolic Profon 12-21 Anion gap [Moles/Vol] 11 mmol/L Normal 9-17 [facility] Comment on above: Performed By: #### B MP, PT, PTT, CDP #### [facility] [address] [place] [address] Operating Theatre Technician: Jelani Liu MD BUN/CRE Ratio 12 Normal 9-20 [facility] Comment on above: Performed By: #### B MP, PT, PTT, CDP #### [facility] [address] [place] [address] Operating Theatre Technician: Jelani Liu MD Calcium [Mass/Vol] 9.1 mg/dL Normal 8.6-10.4 [facility] Comment on above: Performed By: #### B MP, PT, PTT, CDP #### [facility] [address] [facility] [place] [address] Operating Theatre Technician: Jelani Liu MD Chloride [Moles/Vol] 104 mmol/L Normal 98-107 [facility] Comment on above: Performed By: #### B MP, PT, PTT, CDP #### [facility] [place] [address] Operating Theatre Technician: Jelani Liu MD CO2 [Moles/Vol] 24 mmol/L Normal 20-31 [facility] Comment on above: Performed By: #### B MP, PT, PTT, CDP #### [facility] [address] [place] [address] Operating Theatre Technician: Jelani Liu MD Creatinine [Mass/Vol] 0.9 mg/dL Normal 0.5-0.9 [facility] Comment on above: Performed By: #### B MP, PT, PTT, CDP #### [facility] [place] [address] Operating Theatre Technician: Jelani Liu MD GFR/1.73 sq M.predicted among non-blacks MDRD (S/P/Bld) [Vol rate/Area] mL/min/{1.73_m2} Normal >60 [facility] Comment on above: Result Comment: [...] #### B MP, PT, PTT, CDP #### [facility] [place] [address] Operating Theatre Technician: Jelani Liu MD Glucose [Mass/Vol] 93 mg/dL Normal 70-99 [facility] Comment on above: Performed By: #### B MP, PT, PTT, CDP #### [facility] [address] [place] [address]. [place] [address] Operating Theatre Technician: Jelani Liu MD Potassium [Moles/Vol] 4.1 mmol/L Normal 3.7-5.3 [facility] Comment on above: Performed By: #### B MP, PT, PTT, CDP #### [facility] [address] [place] [address]. [place] [address] Operating Theatre Technician: Jelani Liu MD Sodium [Moles/Vol] 139 mmol/L Normal 135-144 [facility] Comment on above: Performed By: #### B MP, PT, PTT, CDP #### [facility] [address] [place] [address]. [place] [address] Operating Theatre Technician: Jelani Liu MD Urea nitrogen [Mass/Vol] 11 mg/dL Normal 8-23 [facility] Comment on above: Performed By: #### B MP, PT, PTT, CDP #### [facility] [address] [place] [address]. [place] [address] Operating Theatre Technician: Jelani Liu MD CBC with Diffon 12-21-2022 Abs. Basophil 0.09 k/uL Normal 0.00-0.20 [facility] Comment on above: Performed By: #### B MP, PT, PTT, CDP #### [facility] [address] [facility] [place] [address] Operating Theatre Technician: Jelani Liu MD Abs. Eosinophil <0.03 Normal 0.00-0.44 [facility] Comment on above: Performed By: #### B MP, PT, PTT, CDP #### [facility] [place] [address] Operating Theatre Technician: Jelani Liu MD Abs.Imm.Granulocyte 0.02 k/uL Normal 0.00-0.30 [facility] Comment on above: Performed By: #### B MP, PT, PTT, CDP #### [facility] [address] [place] [address]. [place] [address] Operating Theatre Technician: Jelani Liu MD Abs.Neutrophil (Seg) 3.03 k/uL Normal 1.50-8.10 [facility] Comment on above: Performed By: #### B MP, PT, PTT, CDP #### [facility] [address] [place] [address]. [place] [address] Operating Theatre Technician: Jelani Liu MD Basophils/100 WBC (Bld) 1 % Normal 0-2 [facility] Comment on above: Performed By: #### B MP, PT, PTT, CDP #### [facility] [place] [address] Operating Theatre Technician: Jelani Liu MD Eosinophils/100 WBC (Bld) 0 % Low 1-4 [facility] Comment on above: Performed By: #### B MP, PT, PTT, CDP #### [facility] [address] [place] [address]. [place] [address] Operating Theatre Technician: Jelani Liu MD Erythrocyte distribution width (RBC) [Ratio] 13.1 % Normal 11.8-14.4 [facility] Comment on above: Performed By: #### B MP, PT, PTT, CDP #### [facility] [place] [address] Operating Theatre Technician: Jelani Liu MD Hematocrit (Bld) [Volume fraction] 45.2 % Normal 36.3-47.1 [facility] Comment on above: Performed By: #### B MP, PT, PTT, CDP #### [facility] [address] [place] [address]. [place] [address] Operating Theatre Technician: Jelani Liu MD Hemoglobin (Bld) [Mass/Vol] 14.5 g/dL Normal 11.9-15.1 [facility] Comment on above: Performed By: #### B MP, PT, PTT, CDP #### [facility] [address] [place] [address] Operating Theatre Technician: Jelani Liu MD Immature granulocytes/100 WBC (Bld) 0 % Normal 0 [facility] Comment on above: Performed By: #### B MP, PT, PTT, CDP #### [facility] [address] [place] [address] Operating Theatre Technician: Jelani Liu MD Lymphocytes (Bld) [#/Vol] 3.93 10*3/uL High 1.10-3.70 [facility] Comment on above: Performed By: #### B MP, PT, PTT, CDP #### [facility] [address] [place] [address]. [place] [address] Operating Theatre Technician: Jelani Liu MD Lymphocytes/100 WBC (Bld) 50 % High 24-43 [facility] Comment on above: Performed By: #### B MP, PT, PTT, CDP #### [facility] [address] [place], [place] [address] [place] [address] Operating Theatre Technician: Jelani Liu MD MCH (RBC) [Entitic mass] 30.1 pg Normal 25.2-33.5 [facility] Comment on above: Performed By: #### B MP, PT, PTT, CDP #### [facility] [address] [place] [address]. [place] [address] Operating Theatre Technician: Jelani Liu MD MCHC (RBC) [Mass/Vol] 32.1 g/dL Normal 28.4-34.8 [facility] Comment on above: Performed By: #### B MP, PT, PTT, CDP #### [facility] [address] [place] [address] Operating Theatre Technician: Jelani Liu MD MCV (RBC) [Entitic vol] 93.8 fL Normal 82.6-102.9 [facility] Comment on above: Performed By: #### B MP, PT, PTT, CDP #### [facility] [address] [place] [address] Operating Theatre Technician: Jelani Liu MD Monocytes (Bld) [#/Vol] 0.75 10*3/uL Normal 0.10-1.20 [facility] Comment on above: Performed By: #### B MP, PT, PTT, CDP #### [facility] [address] [place] [address] Operating Theatre Technician: Jelani Liu MD Monocytes/100 WBC (Bld) 10 % Normal 3-12 [facility] Comment on above: Performed By: #### B MP, PT, PTT, CDP #### [facility] [address] [place] [address] Operating Theatre Technician: Jelani Liu MD Neutrophil (Seg) 39 % Normal 36-65 [facility] Comment on above: Performed By: #### B MP, PT, PTT, CDP #### [facility] [address] [place] [address] Operating Theatre Technician: Jelani Liu MD NRBC Automated 0.0 per 100 WBC Normal 0.0 [facility] Comment on above: Performed By: #### B MP, PT, PTT, CDP #### [facility] [place] [address] Operating Theatre Technician: Jelani Liu MD Platelet mean volume (Bld) [Entitic vol] 10.0 fL Normal 8.1-13.5 [facility] Comment on above: Performed By: #### B MP, PT, PTT, CDP #### [facility] [address] [place] [address]. [place] [address] Operating Theatre Technician: Jelani Liu MD Platelets (Bld) [#/Vol] 257 10*3/uL Normal 138-453 [facility] Comment on above: Performed By: #### B MP, PT, PTT, CDP #### [facility] [address] [place], [place] [address] [place] [address] Operating Theatre Technician: Jelani Liu MD RBC (Bld) [#/Vol] 4.82 10*6/uL Normal 3.95-5.11 [facility] Comment on above: Performed By: #### B MP, PT, PTT, CDP #### [facility] [address] [place], [place] [address] [place] [address] Operating Theatre Technician: Jelani Liu MD WBC (Bld) [#/Vol] 7.8 10*3/uL Normal 3.5-11.3 [facility] Comment on above: Performed By: #### B MP, PT, PTT, CDP #### [facility] [address] [place], [place] [address] [place] [address] Operating Theatre Technician: Jelani Liu MD MRSA, DNA, Nasalon 3 Specimen Description .NASAL SWAB Normal [facility] Comment on above: Performed By: #### M RSANO ####[facility] [address] [place] [address] Lab Director: JOAQUÍN [facility] [address] [place] [address] Lab Director: Terrance Luevano MD PTon 12-21-2022 INR Coag (PPP) [Relative time] 0.9 {INR} Normal [facility] Comment on above: Result Comment: Therapeutic Range: Moderate Anticoagulant Intensity: INR = 2.0-3.0 High Anticoagulant Intensity: INR = 2.5-3.5 Performed By: #### B MP, PT, PTT, CDP #### [facility] [address] [place] [address] Operating Theatre Technician: Jelani Liu MD PT Coag (PPP) [Time] 12.1 s Normal 11.5-14.2 [facility] Comment on above: Performed By: #### B MP, PT, PTT, CDP #### [facility] [address] [place] [facility] [place] [address] Operating Theatre Technician: Jelani Liu MD Urinalysis, Routineon 2022 Bilirubin, SemiQt,Ur Negative Normal NEG [facility] Comment on above: Performed By: #### U A ####[facility] [address] [place] [facility] [place] [address] Lab Director: Jelani Liu MD Blood, Urine Negative Normal NEG [facility] Comment on above: Performed By: #### U A ####[facility] [address] [facility] [facility] [place] [address] Lab Director: Jelani Liu MD Clarity (U) Clear Normal CLEAR [facility] Comment on above: Performed By: #### U A ####[facility] [address] [place] [address] Lab Director: Jelani Liu MD Color (U) Yellow Normal YEL [facility] Comment on above: Performed By: #### U A ####[facility] [address] [place] [address] Lab Director: Jelani Liu MD Comment Microscopic exam not performed based on chemical results unless requested in Normal [facility] Comment on above: Result Comment: orig inal order. Performed By: #### U A ####[facility] [address] [place] [address] Lab Director: Jelani Liu MD Glucose Ql (U) Negative Normal NEG [facility] Comment on above: Performed By: #### U A ####[facility] [address] [place] [address] Lab Director: Jelani Liu MD Ketones Ql (U) Negative Normal NEG [facility] Comment on above: Performed By: #### U A ####[facility] [address] [place] [address] Lab Director: Jelani Liu MD Leukocyte esterase Test strip Ql (U) Negative Normal NEG [facility] Comment on above: Performed By: #### U A ####[facility] [address] [place] [address] Lab Director: Jelani Liu MD Nitrite,Ur Negative Normal NEG [facility] Comment on above: Performed By: #### U A ####[facility] [address] [place] [address] Lab Director: Jelani Liu MD PH,Ur 5.5 Normal 5.0-8.0 [facility] Comment on above: Performed By: #### U A ####[facility] [address] [place] [facility] [place] [address] Lab Director: Jelani Liu MD Protein Ql (U) Negative Normal NEG [facility] Comment on above: Performed By: #### U A ####[facility] [address] [place] [facility] [place] [address] lab Director: Jelani Liu MD Spec. [place],Ur 1.015 Normal 1.005-1.030 [facility] Comment on above: Performed By: #### U A ####[facility] Igx[address] [facility] [place] [address] lab Director: Jelani Liu MD Urobilinogen,Ur Normal Normal 0.0-1.0 [facility] Comment on above: Performed By: #### U A ####[facility] [address] [facility] [place] [address] lab Director: Jelani Liu MD Consent for Treatmenton 09-28 Consent for Treatment [id number] .[id number]:127 Normal [facility] Discharge Instructionson Discharge Instructions [id number] 1.00CD:127 Normal [facility] ED Clinical Summaryon 2022 ED Clinical Summary [address] [address] ED Clinical Summary Person Information Name: JESSICA FERRERA [facility] Age: 67 Years : 1955 Sex: Female Language: Filipino PCP: Ricardo Hooper MD Marital Status: Visit [...] 10/10/2022 16:00:24 10/10/2022 16:00:24 10/10/2022 16:00:24 ADDR[address]: [address] [id number] PHYS DOC NOTES: MEDICAL INFORMATION: Prescriptions Given: [...] Follow up: With: Address: When: Ricardo Hooper [address] [place] [address], [address] [place] [phone] Business (1) In 3 days 10/13/2022 Comments: Follow-up with your primary care provider in 3 to 5 days. If symptoms worsen, do not improve, or new symptoms arise please report back to emergency department for further evaluation. DIAGNOSIS: Left serous otitis media Normal [facility] ED Note-Physicianon 10-11-19 23 ED Note-Physician Basic Information Time Seen: Bo SAWANT, Thony Hicks 10/10/2022 15:28 Chief Complaint Pt had sinus infection beginning of September was placed on abx and felt better. Abx done on Wednesday, Wednesday started wtih L ear pain. Told to take antihistamines OTC. Saw [facility] and told possible shingles on top of the antihistamines. States still having L History of Present Illness 67-year-old fe with a chief complaint of male reports to the emergency department left ear pain. He reports that she just finished up antibiotic, but on Wednesday, she started with left ear pain. Reports that she was told to take pngz-ltw-yskijpa antihistamine and other medications, to help with her symptoms, but this has not been helping. She also went to [facility] emergency department, and was told that she [...] and Complexity of Problems Differential Diagnosis: [] [facility] Data External documents reviewed: [] [...] very concerned because of her trip to [facility]. No other signs are positive on [...] Daily Follow-up With When Contact Information Ricardo Hooepr In 3 days 10/13/2022 EDT [address] [facility] [place] [address] [address] [place] [address]- [phone] (more content not included)... Normal [facility] Comment on above: Result Comment: Elec tronically [...] weeks. Home care treatment may include: ? Inoc-vrc-dhftidc pain relievers. ? A warm, moist cloth placed over the ear. Severe cases may require a procedure to insert tubes in the ears (tympanostomy tubes) to drain the fluid. Follow these instructions at home: ? Take yxnt-lgp-qkudhxv and prescription medicines only as told by [...] Reviewed: 09/11/2021 Elsevier Patient Education ? 2022 [employer] Normal [facility] ED Patient Summaryon 023 ED Patient Summary [address] [address] Patient Discharge Instructions Person Information Name: JESSICA FERRERA Age: 67 Years Arrival Date: 10/10/2022 14:53:25 Discharge Diagnosis: Left serous otitis media Primary Care Physician: Ricardo Hooper MD Provider Information Primary Provider: Rocael Wayne DO Advanced Clothespin Machine Operator:None The exam and treatment you received in the Emergency Department were for an urgent problem and are not intended as complete care. It is important that you follow up with a doctor, nurse practitioner, or physician?s account assistant for ongoing care. If your symptoms [...] Follow-up Instructions: With: Address: When: Ricardo Hooper [address] [place] [address], [facility] [place] [address] Business (1) In 3 days [...] opioids can be used to help relieve fyiglugo-ln-vaivpq pain and are often prescribed following a [...] abuse and (more content not included)... Normal [facility] INSULINon 08-31-2022 Insulin 18.9 uIU/mL Normal 2.6-24.9 [facility] Comment on above: Performed By: #### I NSULIN #### [facility] [address] [place] [address] Dr. Barrington Gomez CBC AUTO DIFFon 08-29-2022 BASO # 0.1 103/ul Normal 0.0-0.1 [facility] Comment on above: Performed By: #### C BC #### [facility] [address] [place] [address] Dr. Barrington Gomez Basophils/100 WBC (Bld) 0.9 % Normal 0.2-2.0 [facility] Comment on above: Performed By: #### C BC #### [facility] [address] [place] [address] Dr. Barrington Gomez EO # 0.1 103/ul Normal 0.0-0.7 [facility] Comment on above: Performed By: #### C BC #### [facility] [address] [place] [address] Dr. Barrington Gomez Eosinophils/100 WBC (Bld) 1.9 % Normal 0.9-7.0 [facility] Comment on above: Performed By: #### C BC #### [facility] [address] [place] [address] Dr. Barrington Gomez Erythrocyte distribution width (RBC) [Ratio] 16.9 % Critically high 11.0-15.0 [facility] Comment on above: Performed By: #### C BC #### [facility] [address] [place] [address] Dr. Barrington Gomez Hematocrit (Bld) [Volume fraction] 44.4 % Normal 36.0-48.0 [facility] Comment on above: Performed By: #### C BC #### [facility] [address] [place] [address] Dr. Barrington Gomez Hemoglobin (Bld) [Mass/Vol] 13.9 g/dL Normal 12.0-16.[address] [facility] Comment on above: Performed By: #### C BC #### [facility] [address] [place] [address] Dr. Barrington Gomez IG # 0.02 10e3/ul Normal 0.00-0.03 [facility] Comment on above: Performed By: #### C BC #### [facility] [address] [place] [address] Dr. Barrington Gomez IG % 0.3 % Normal 0.0-0.5 [facility] Comment on above: Performed By: #### C BC #### [facility] [address] [place] [address] Dr. Barrington Gomez LYMPH # 3.0 103/ul Normal 1.2-3.[address] [facility] Comment on above: Performed By: #### C BC #### [facility] [address] [place] [address] Dr. Barrington Gomez Lymphocytes/100 WBC (Bld) 47.6 % Normal 20.5-60.[address] [facility] Comment on above: Performed By: #### C BC #### [facility] [address] [place] [address] Dr. Barrington Gomez MANUAL DIFF REQ NO Normal [facility] Comment on above: Performed By: #### C BC #### [facility] [address] [place] [address] Dr. Barrington Gomez MCH (RBC) [Entitic mass] 27.4 pg Normal 26.7-34.0 [facility] Comment on above: Performed By: #### C BC #### [facility] [address] [place] [address] Dr. Barrington Gomez MCHC (RBC) [Mass/Vol] 31.3 g/dL Normal 29.9-35.2 [facility] Comment on above: Performed By: #### C BC #### [facility] [address] [address] Dr. Barrington Gomez MCV (RBC) [Entitic vol] 87.6 fL Normal 81.0-99.0 [facility] Comment on above: Performed By: #### C BC #### [facility] [address] [address] Dr. Barrington Gomez MONO # 0.6 103/ul Normal 0.3-0.8 [facility] Comment on above: Performed By: #### C BC #### [facility] [address] [place] [address] Dr. Barrington Gomez Monocytes/100 WBC (Bld) 8.8 % Normal 1.7-12.0 [facility] Comment on above: Performed By: #### C BC #### [facility] [address] [place] [address] Dr. Barrington Gomez NEUT # 2.6 103/ul Normal 1.4-6.5 [facility] Comment on above: Performed By: #### C BC #### [facility] [address] [place] [address] Dr. Barrington Gomez Neutrophils/100 WBC (Bld) 40.5 % Critically low 43.0-75.0 [facility] Comment on above: Performed By: #### C BC #### [facility] [address] [address] Dr. Barrington Gomez Platelet mean volume (Bld) [Entitic vol] 9.4 fL Critically low 9.5-13.5 [facility] Comment on above: Performed By: #### C BC #### [facility] [address] [place] [address] Dr. Barrington Gomez PLT 243 103/ul Normal 150-450 [facility] Comment on above: Performed By: #### C BC #### [facility] [address] [place] [address] Dr. Barrington Gomez RBC 5.07 106/ul Normal 4.20-5.40 [facility] Comment on above: Performed By: #### C BC #### [facility] [address] [place] [address] Dr. Barrington Gomez WBC 6.4 103/ul Normal 4.0-11.0 [facility] Comment on above: Performed By: #### C BC #### [facility] [address] [place] [address] Dr. Barrington Gomez FREE THYROXINE INDEX T7on FTI 3.07 Normal 1.30-4.50 [facility] Comment on above: Performed By: #### U AMIC #### [facility] [address] [place] [address] Dr. Barrington Gomez T3U 32.0 % Normal 30.0-39.0 [facility] Comment on above: Performed By: #### U AMIC #### [facility] [address] [place] [address] Dr. Barrington Gomez T4 [Mass/Vol] 9.60 ug/dL Normal 4.80-13.90 [facility] Comment on above: Performed By: #### U AMIC #### [facility] [address] [place] [address] Dr. Barrington Gomez GLYCOHEMOGLOBIN A1Con 2022 ADA RECOMMENDATION SEE BELOW Normal [facility] Comment on above: Result Comment: ADA RECOMMENDED LIMIT 4.0 - 6.0 ADA THERAPEUTIC TARGET < 7.0 ACTION SUGGESTED > 7.0 Performed By: #### A 1C #### [facility] [address] [place] [address] Dr. Barrington Gomez Glucose [Mass/Vol] 120 mg/dL Normal [facility] Comment on above: Performed By: #### A 1C #### [facility] [address] [place] [address] Dr. Barrington Gomez HbA1c (Bld) [Mass fraction] 5.8 % Normal 4.5-6.2 [facility] Comment on above: Performed By: #### A 1C #### [facility] [address] [place] [address] Dr. Barrington Gomez IRONon 08-29-2022 Iron [Mass/Vol] 85.0 ug/dL Normal 50.0-170.0 [facility] Comment on above: Performed By: #### U AMIC #### [facility] [address] [address] [address] Barrington Gomez LIPID PROFILEon 08-29-2022 CHOL-HDL RATIO NORM SEE BELOW Normal [facility] Comment on above: Result Comment: 3.3 - 4.4 LOW RISK 4.4 - 7.1 AVERAGE RISK 7.1 - 11.0 MODERATE RISK >11.0 HIGH RISK Performed By: #### U AMIC #### [facility] [address] [address] [address] Barrington Gomez Cholesterol [Mass/Vol] 226 mg/dL Critically high <=200 [facility] Comment on above: Performed By: #### U AMIC #### [facility] [address] [address] [address] Barrington Gomez Cholesterol in HDL [Mass/Vol] 93 mg/dL Critically high 40-60 [facility] Comment on above: Performed By: #### U AMIC #### [facility] [address] [address] [address] Barrington Gomez Cholesterol in LDL [Mass/Vol] 114.6 mg/dL Normal [facility] Comment on above: Performed By: #### U AMIC #### [facility] [address] [address] [address] Barrington Gomez Cholesterol.total/Choles terol in HDL [Mass ratio] 2.4 {ratio} Normal [facility] Comment on above: Performed By: #### U AMIC #### [facility] [id number] Barrington Gomez HDL NORMAL > or = 60 mg/dl - LO W CARDIOVASCULAR RISK <40 mg/dl - HIGH CARDIOVASCULAR RISK Normal [facility] Comment on above: Performed By: #### U AMIC #### [facility] [address] [id number] [address] Barrington Gomez LDL CALC NORMAL SEE BELOW Normal [facility] Comment on above: Result Comment: <100 mg/dl OPTIMAL 100 - 129 mg/dl NEAR OR ABOVE OPTIMAL 130 - 159 mg/dl BORDERLINE HIGH 160 - 189 mg/dl HIGH >190 mg/dl VERY HIGH Performed By: #### U AMIC #### [facility] [address] [place] [address] Dr. Barrington Gomze Triglyceride [Mass/Vol] 92 mg/dL Normal <=150 T [facility] Comment on above: Performed By: #### U AMIC #### [facility] [address] [place] [address] Dr. Barrington Gomez VLDL CALC 18.4 mg/dL Normal [facility] Comment on above: Performed By: #### U AMIC #### [facility] [address] [place] [address] Dr. Barrington Gomez PROF 14(COMP METB)on 023 Albumin [Mass/Vol] 3.5 g/dL Normal 3.4-5.0 [facility] Comment on above: Performed By: #### U AMIC #### [facility] [address] [place] [address] Dr. Barrington Gomez Albumin/Globulin [Mass ratio] 1.1 {ratio} Normal [facility] Comment on above: Performed By: #### U AMIC #### [facility] [address] [place] [address] Dr. Barrington Gomez ALP [Catalytic activity/Vol] 71 U/L Normal 46-116 [facility] Comment on above: Performed By: #### U AMIC #### [facility] [address] [place] [address] Dr. Barrington Gomez ALT [Catalytic activity/Vol] 28 U/L Normal 14-59 [facility] Comment on above: Performed By: #### U AMIC #### [facility] [address] [place] [address] Dr. Barrington Gomez Anion gap [Moles/Vol] 10.4 mmol/L Normal [facility] Comment on above: Performed By: #### U AMIC #### [facility] [address] [place] [address] Dr. Barrington Gomez AST [Catalytic activity/Vol] 15 U/L Normal 15-37 [facility] Comment on above: Performed By: #### U AMIC #### [facility] [address] [address] [address] Barrington Gomez Bilirubin [Mass/Vol] 0.4 mg/dL Normal 0.2-1.0 [facility] Comment on above: Performed By: #### U AMIC #### [facility] [address] [address] [address] Barrington Gomez Calcium [Mass/Vol] 9.4 mg/dL Normal 8.5-10.1 [facility] Comment on above: Performed By: #### U AMIC #### [facility] [address] [place] [address] Dr. Barrington Gomez Chloride [Moles/Vol] 106 mmol/L Normal 98-107 [facility] Comment on above: Performed By: #### U AMIC #### [facility] [address] [address] [address] Barrington Gomez CO2 [Moles/Vol] 29.8 mmol/L Normal 21.0-32.0 [facility] Comment on above: Performed By: #### U AMIC #### [facility] [address] [place] [address] Dr. Barrington Gomez Creatinine [Mass/Vol] 0.91 mg/dL Normal 0.55-1.02 [facility] Comment on above: Performed By: #### U AMIC #### [facility] [address] [place] [address] Dr. Barrington Gomez EGFR-AF FRENCH >60 Normal >=60 [facility] Comment on above: Performed By: #### U AMIC #### [facility] [address] [place] [address] Dr. Barrington Gomez EGFR-NON AF FRENCH >60 Normal >=60 [facility] Comment on above: Performed By: #### U AMIC #### [facility] [address] [place] [address] Dr. Barrington Gomez Globulin (S) [Mass/Vol] 3.1 g/dL Normal T [facility] Comment on above: Performed By: #### U AMIC #### [facility] [address] [address] [address] Barrington Gomez Glucose [Mass/Vol] 88 mg/dL Normal 74-106 [facility] Comment on above: Performed By: #### U AMIC #### [facility] [address] [address] [address] Barrington Gomez Potassium [Moles/Vol] 4.2 mmol/L Normal 3.5-5.1 [facility] Comment on above: Performed By: #### U AMIC #### [facility] [address] [place] [address] Dr. Barrington Gomez Protein [Mass/Vol] 6.6 g/dL Normal 6.4-8.2 [facility] Comment on above: Performed By: #### U AMIC #### [facility] [address] [place] [address] Dr. Barrington Gomez Sodium [Moles/Vol] 142 mmol/L Normal 136-145 [facility] Comment on above: Performed By: #### U AMIC #### [facility] [address] [place] [address] Dr. Barrington Gomez Urea nitrogen [Mass/Vol] 13.0 mg/dL Normal 7.0-18.0 [facility] Comment on above: Performed By: #### U AMIC #### [facility] [address] [place] [address] Dr. Barrington Gomez Urea nitrogen/Creatinine [Mass ratio] 14.3 mg/mg Normal [facility] Comment on above: Performed By: #### U AMIC #### [facility] [address] [place] [address] Dr. Barrington Gomez TSHon 08-29-2022 TSH 1.585 uIU/mL Normal 0.358-3.740 [facility] Comment on above: Performed By: #### U AMIC #### [facility] [address] [place] [address] Dr. Barrington Gomez Covid-19 PCR (CVDTBH)on 04-01 SARS-CoV-2 (COVID-19) RNA EVAN+probe Ql (Unsp spec) Not detected Normal NOT DETECTED [facility] Comment on above: Result Comment: When [...] for this test is supported by the [employer] Professional of Health and Human Service's declaration that [...] used). Performed By: #### C VDTBH #### [facility] [address] [place] [address] Dr. Barrington Gomez INFLUENZA A AND B AGon 04-28 INFLUBNEG SEE BELOW Normal [facility] Comment on above: Result Comment: Nega tive for Flu B protein antigen. Infection due to Flu B cannot be ruled out. Flu B antigen in the sample may be below the detection limit of the test. Performed By: #### I NFLUAB #### [facility] [address] [place] [address] Dr. Barrington Gomez INFLUENZA A AG Positive Abnormal NEGATIVE SEE COMMENT [facility] Comment on above: Performed By: #### I NFLUAB #### [facility] [address] [place] [address] Dr. Barrington Gomez INFLUENZA B AG Negative Normal NEGATIVE SEE COMMENT [facility] Comment on above: Performed By: #### I NFLUAB #### [facility] [address] [place] [address] Dr. Barrington Gomez INFLUPOS SEE BELOW Normal [facility] Comment on above: Result Comment: NOTE : Live attenuated influenzae vaccine viruses can cause a positive result for a rapid influenza diagnostic test if administered up to 7 days prior to rapid testing. Performed By: #### I NFLUAB #### [facility] [address] [place], [place] [address] Dr. Barrington Gomez INTERNAL CONTROLS Within Normal Limits Normal Wi thin Normal Limits [facility] Comment on above: Performed By: #### I NFLUAB #### [facility] [id number] Barrington Gomez CT Chest W contrast [facility] Study observation (narrative) [facility] IMPRESSION: 1. New 2 mm left lower [...] any questions regarding this interpretation, please call [phone]. If you are unable to reach us at the number above, please feel free to contact [facility] eRadiology at [phone]. DIVISION OF RADIOLOGY * * *Final Report* * * DATE OF EXAM: Apr 06 2022 9:21AM [facility] 0539 - CT CHEST W IVCON / [...] an outside institution; 01/03/2019 and 07/11/2018 from [facility] RESULT: Limitations: None. Lines, tubes, and [...] or blastic osseous lesions. Upper abdomen: Stable DIVISION OF RADIOLOGY Provider, [facility] - 04/06/2022 * * *Final Report* * * DATE OF EXAM: Apr 06 2022 9:21AM [facility] 0539 - CT CHEST W IVCON / [...] an outside institution; 01/03/2019 and 07/11/2018 from [facility] RESULT: Limitations: None. Lines, tubes, and [...] or blastic osseous lesions. Upper abdomen: Stable IMPRESSION IMPRESSION: 1. New 2 mm left lower [...] any questions regarding this interpretation, please call [phone]. If you are unable to reach us at the number above, please feel free to contact [facility] at [phone]. [facility] CT Chest W contrast IVOrdere d By: [facility] Provider on 04-06-2022 [facility] Basic Metabolic Panelon 01-30 Anion gap [Moles/Vol] 6 mmol/L Low 9 - 17 mmol/L [facility] Calcium [Mass/Vol] 8.5 mg/dL Low 8.6 - 10. 4 mg/dL [facility] Chloride [Moles/Vol] 108 mmol/L High 98 - 10 7 mmol/L [facility] CO2 [Moles/Vol] 24 mmol/L 20 - 31 mmol/L [facility] Creatinine [Mass/Vol] 0.93 mg/dL High 0.5 - 0.9 mg/dL [facility] GFR >60 60 - PI NF mL/min [facility] GFR Non- >60 60 - PINF mL/min [facility] Adeptence GFR/1.73 sq M.predicted MDRD (S/P/Bld) [Vol rate/Area] [facility] Comment on above: Average GFR for 60-6 9 years old: 85 mL/min/1.73sq m Chronic Kidney Disease: <60 mL/min/1.73sq m Kidney failure: <15 mL/min/1.73sq m eGFR calculated using average adult body mass. Additional eGFR calculator available at: http://www.[employer]/multiple_crcl_2011.htm Glucose [Mass/Vol] 145 mg/dL High 70 - 99 mg/dL [facility] Interpretation and review of laboratory results Abnormal [facility] Potassium [Moles/Vol] 4.9 mmol/L 3.7 - 5.3 mmol/L [facility] Sodium [Moles/Vol] 138 mmol/L 135 - 144 mmol/L [facility] Urea nitrogen (BldV) [Mass/Vol] 9 mg/dL 8 - 23 mg/dL [facility] Urea nitrogen/Creatinine (Bld) [Mass ratio] 10 9 - 20 [facility] Basic Metabolic Profon 02-17 (cont.) Normal [facility] Comment on above: Result Comment: Aver age GFR for 60-69 years old: 85 mL/min/1.73sq m Chronic Kidney Disease: <60 mL/min/1.73sq m Kidney failure: <15 mL/min/1.73sq m eGFR calculated using average adult body mass. Additional eGFR calculator available at: http://www.[employer]/multiple_crcl_2011.htm Performed By: #### C DP, BMP #### [facility] [address] [place] [address] Operating Theatre Technician: Jelani Liu MD Anion gap [Moles/Vol] 6 mmol/L Low 9-17 [facility] Comment on above: Performed By: #### C DP, BMP #### [facility] [place] [address] Operating Theatre Technician: Jelani Liu MD BUN/CRE Ratio 10 Normal 9-20 [facility] Comment on above: Performed By: #### C DP, BMP #### [facility] [address] [facility] [place] [address] Operating Theatre Technician: Jelani Liu MD Calcium [Mass/Vol] 8.5 mg/dL Low 8.6-10.4 [facility] Comment on above: Performed By: #### C DP, BMP #### [facility] [address] [facility] [place] [address] Operating Theatre Technician: Jelani Liu MD Chloride [Moles/Vol] 108 mmol/L High 98-107 [facility] Comment on above: Performed By: #### C DP, BMP #### [facility] [place] [address] Operating Theatre Technician: Jelani Liu MD CO2 [Moles/Vol] 24 mmol/L Normal 20-31 [facility] Comment on above: Performed By: #### C DP, BMP #### [facility] [address] [facility] [place] [address] Operating Theatre Technician: Jelani Liu MD Creatinine [Mass/Vol] 0.93 mg/dL High 0.50-0.90 [facility] Comment on above: Performed By: #### C DP, BMP #### [facility] [address] [place] [address] Operating Theatre Technician: Jelani Liu MD GFR, Amer >60 Normal >60 [facility] Comment on above: Performed By: #### C DP, BMP #### [facility] [address] [place] [address] Operating Theatre Technician: Jelani Liu MD GFR,non Amer >60 Normal >60 [facility] Comment on above: Performed By: #### C DP, BMP #### [facility] [address] [place] [address] Operating Theatre Technician: Jelani Liu MD Glucose [Mass/Vol] 145 mg/dL High 70-99 [facility] Comment on above: Performed By: #### C DP, BMP #### [facility] [address] [place] [address] Operating Theatre Technician: Jelani Liu MD Potassium [Moles/Vol] 4.9 mmol/L Normal 3.7-5.3 [facility] Comment on above: Performed By: #### C DP, BMP #### [facility] [address] [place] [address] Operating Theatre Technician: Jelani Liu MD Sodium [Moles/Vol] 138 mmol/L Normal 135-144 [facility] Comment on above: Performed By: #### C DP, BMP #### [facility] [address] [place] [address] Operating Theatre Technician: Jelani iLu MD Urea nitrogen [Mass/Vol] 9 mg/dL Normal 8-23 [facility] Comment on above: Performed By: #### C DP, BMP #### [facility] [address] [place], [place] [id number] Operating Theatre Technician: Jelani Liu MD CBC with Auto Differentialon 02-17-2022 Absolute Eos # [facility] Absolute Immature Granulocyte 0.05 [facility] Absolute Lymph # 1.47 [facility] Absolute [facility] # 0.63 [facility] Basophils (Bld) [#/Vol] 0.03 10*3/uL [facility] Basophils/100 WBC (Bld) 0 % 0 - 2 % B [facility] Eosinophils/100 WBC (Bld) 0 % Low 1 - 4 % [facility] Hematocrit (Bld) [Volume fraction] 32.5 % Low 36.3 - 47.1 % [facility] Hemoglobin (Bld) [Mass/Vol] 9.8 g/dL Low 11.9 - 15.1 g/dL [facility] Immature granulocytes/100 WBC (Bld) 0 % 0 [facility] Interpretation and review of laboratory results Abnormal [facility] Lymphocytes/100 WBC (Bld) 11 % Low 24 - 43 % [facility] MCH (RBC) [Entitic mass] 25.3 pg 25. 2 - 33.5 pg [facility] MCHC (RBC) [Mass/Vol] 30.2 g/dL 28.4 - 34.8 g/dL [facility] MCV (RBC) [Entitic vol] 83.8 fL 82.6 - 102.9 fL [facility] Monocytes/100 WBC (Bld) 5 % 3 - 12 % B ON [facility] NRBC Automated 0.0 0.0 per 100 WBC [facility] Platelet distribution width (Bld) [Ratio] 14.9 % High 11.8 - 14.4 % [facility] Platelet mean volume (Bld) [Entitic vol] 10.6 fL 8.1 - 13.5 fL [facility] Platelets (Bld) [#/Vol] 269 10*3/uL [facility] RBC (Bld) [#/Vol] 3.88 10*6/uL Low 3.95 - 5.1 1 m/uL [facility] RBC (Bld) [#/Vol] ANISOCYTOSIS PRESENT [facility] Segmented neutrophils/100 WBC (Bld) 84 % High 36 - 65 % [facility] Segs Absolute 11.41 High [facility] WBC (Bld) [#/Vol] 13.6 10*3/uL High [facility] CBC with Diffon 02-17-2022 Abs. Basophil 0.03 k/uL Normal 0.00-0.20 [facility] Comment on above: Performed By: #### C DP, BMP #### [facility] [address] [place] [address] Operating Theatre Technician: Jelani Liu MD Abs. Eosinophil <0.03 Normal 0.00-0.44 [facility] Comment on above: Performed By: #### C DP, BMP #### [facility] [address] [place] [address] Operating Theatre Technician: Jelani Liu MD Abs.Imm.Granulocyte 0.05 k/uL Normal 0.00-0.30 [facility] Comment on above: Performed By: #### C DP, BMP #### [facility] [place] [address] Operating Theatre Technician: Jelani Liu MD Abs.Neutrophil (Seg) 11.41 k/uL High 1.50-8.10 [facility] Comment on above: Performed By: #### C DP, BMP #### [facility] [place] [address] Operating Theatre Technician: Jelani Liu MD Basophils/100 WBC (Bld) 0 % Normal 0-2 [facility] Comment on above: Performed By: #### C DP, BMP #### [facility] [place] [address] Operating Theatre Technician: Jelani Liu MD Eosinophils/100 WBC (Bld) 0 % Low 1-4 [facility] Comment on above: Performed By: #### C DP, BMP #### [facility] [address] [place] [address]. [place] [address] Operating Theatre Technician: Jelani Liu MD Erythrocyte distribution width (RBC) [Ratio] 14.9 % High 11.8-14.4 [facility] Comment on above: Performed By: #### C DP, BMP #### [facility] [address] [place] [address] Operating Theatre Technician: Jelani Liu MD Hematocrit (Bld) [Volume fraction] 32.5 % Low 36.3-47.1 [facility] Comment on above: Performed By: #### C DP, BMP #### [facility] [address] [place] [address]. [place] [address] Operating Theatre Technician: Jelani Liu MD Hemoglobin (Bld) [Mass/Vol] 9.8 g/dL Low 11.9-15.1 [facility] Comment on above: Performed By: #### C DP, BMP #### [facility] [address] [place] [address]. [place] [address] Operating Theatre Technician: Jelani Liu MD Immature granulocytes/100 WBC (Bld) 0 % Normal 0 [facility] Comment on above: Performed By: #### C DP, BMP #### [facility] [address] [place] [address] Operating Theatre Technician: Jelani Liu MD Lymphocytes (Bld) [#/Vol] 1.47 10*3/uL Normal 1.10-3.70 [facility] Comment on above: Performed By: #### C DP, BMP #### [facility] [address] [place] [address]. [place] [address] Operating Theatre Technician: Jelani Liu MD Lymphocytes/100 WBC (Bld) 11 % Low 24-43 [facility] [facility] Comment on above: Performed By: #### C DP, BMP #### [facility] [address] [place] [address]. [place] [address] Operating Theatre Technician: Jelani Liu MD MCH (RBC) [Entitic mass] 25.3 pg Normal 25.2-33.5 [facility] Comment on above: Performed By: #### C DP, BMP #### [facility] [address] [place] [address] Operating Theatre Technician: Jelani Liu MD MCHC (RBC) [Mass/Vol] 30.2 g/dL Normal 28.4-34.8 [facility] Comment on above: Performed By: #### C DP, BMP #### [facility] [address] [place] [address] Operating Theatre Technician: Jelani Liu MD MCV (RBC) [Entitic vol] 83.8 fL Normal 82.6-102.9 [facility] Comment on above: Performed By: #### C DP, BMP #### [facility] [address] [place] [address] Operating Theatre Technician: Jelani Liu MD Monocytes (Bld) [#/Vol] 0.63 10*3/uL Normal 0.10-1.20 [facility] Comment on above: Performed By: #### C DP, BMP #### [facility] [address] [place] [address] Operating Theatre Technician: Jelani Liu MD Monocytes/100 WBC (Bld) 5 % Normal 3-12 M [facility] Comment on above: Performed By: #### C DP, BMP #### [facility] [address] [place] [address] Operating Theatre Technician: Jelani Liu MD Neutrophil (Seg) 84 % High 36-65 [facility] Comment on above: Performed By: #### C DP, BMP #### [facility] [place] [address] Operating Theatre Technician: Jelani Liu MD NRBC Automated 0.0 per 100 WBC Normal 0.0 [facility] Comment on above: Performed By: #### C DP, BMP #### [facility] [address] [place], [place] [address]ia [facility] [place] [address] Operating Theatre Technician: Jelani Liu MD Platelet mean volume (Bld) [Entitic vol] 10.6 fL Normal 8.1-13.5 [facility] Comment on above: Performed By: #### C DP, BMP #### [facility] [address] [place], [place] [address]ia [facility] [place] [address] Operating Theatre Technician: Jelani Liu MD Platelets (Bld) [#/Vol] 269 10*3/uL Normal 138-453 [facility] Comment on above: Performed By: #### C DP, BMP #### [facility] [address] [place] [address]. [place] [address] Operating Theatre Technician: Jelani Liu MD RBC (Bld) [#/Vol] 3.88 10*6/uL Low 3.95-5.11 [facility] Comment on above: Performed By: #### C DP, BMP #### [facility] [address] [place], [place] [address]ia [facility] [place] [address] Operating Theatre Technician: Jelani Liu MD RBC morphology finding Nom (Bld) ANISOCYTOSIS PRESENT Normal [facility] Comment on above: Performed By: #### C DP, BMP #### [facility] [address] [place], [place] [address]ia [facility] [place] [address] Operating Theatre Technician: Jelani Liu MD WBC (Bld) [#/Vol] 13.6 10*3/uL High 3.5-11.3 [facility] Comment on above: Performed By: #### C DP, BMP #### [facility] [address] [place] [address] Operating Theatre Technician: Jelani Liu MD FLUORO FOR SURGICAL PROCEDUR ESon 02-16-2022 FLUORO FOR SURGICAL PROCEDURES Radiology exam is complete. No Radiologist dictation. Please follow up with ordering provider. Final result Normal [facility] Radiology exam is complete. No Radiologist dictation. Please follow up with ordering provider. PN RIS CONSOLIDATED Cult,Urineon 01-28-2022 Cult,Urine Specimen Description .CLEAN CATCH URINE Culture NO SIGNIFICANT GROWTH Report Status FINAL 01/27/2022 Normal [facility] Comment on above: Performed By: #### U RC ####[facility] Zxp[address]187 [place] [address] Lab Director: JOAQUÍN [facility] [address] [address] Lab Director: Terrance Luevano MD Culture, Urineon 01-27-2022 Bacteria identified Cx Nom (U) NO SIGNIFICANT GROWTH [facility] Specimen Description .CLEAN CATCH URINE [facility] APTTon 01-26-2022 aPTT Coag (Bld) [Time] 25.6 s Normal 23.9-33.8 [facility] Comment on above: Result Comment: IV Heparin Therapy Range: 62.0-94.0 Performed By: #### P T, CDP, PTT, BMP ####[facility] T[address] [place] [address] Lab Director: Jelani Liu MD aPTT Coag (Bld) [Time] 25.6 s [facility] Comment on above: IV Heparin Therapy Range: 62.0-94.0 Basic Metabolic Panelon 08- Anion gap [Moles/Vol] 10 mmol/L 9 - 17 mmol/L [facility] Calcium [Mass/Vol] 8.8 mg/dL 8.6 - 10. 4 mg/dL [facility] Chloride [Moles/Vol] 104 mmol/L 98 - 10 7 mmol/L [facility] CO2 [Moles/Vol] 24 mmol/L 20 - 31 mmol/L [facility] Creatinine [Mass/Vol] 1.01 mg/dL High 0.5 - 0.9 mg/dL [facility] GFR >60 60 - PI NF mL/min [facility] Adeptence GFR Non- 55 mL/min Low 60 - PINF mL/min [facility] GFR/1.73 sq M.predicted MDRD (S/P/Bld) [Vol rate/Area] [facility] Comment on above: Average GFR for 60-6 9 years old: 85 mL/min/1.73sq m Chronic Kidney Disease: <60 mL/min/1.73sq m Kidney failure: <15 mL/min/1.73sq m eGFR calculated using average adult body mass. Additional eGFR calculator available at: http://www.[employer]/multiple_crcl_2012.htm Glucose [Mass/Vol] 101 mg/dL High 70 - 99 mg/dL [facility] Interpretation and review of laboratory results Abnormal [facility] Potassium [Moles/Vol] 3.9 mmol/L 3.7 - 5.3 mmol/L [facility] Sodium [Moles/Vol] 138 mmol/L 135 - 144 mmol/L [facility] Urea nitrogen (BldV) [Mass/Vol] 13 mg/dL 8 - 23 mg/dL [facility] Urea nitrogen/Creatinine (Bld) [Mass ratio] 13 9 - 20 [facility] Basic Metabolic Profon 01-26 (cont.) Normal [facility] Comment on above: Result Comment: Aver age GFR for 60-69 years old: 85 mL/min/1.73sq m Chronic Kidney Disease: <60 mL/min/1.73sq m Kidney failure: <15 mL/min/1.73sq m eGFR calculated using average adult body mass. Additional eGFR calculator available at: http://www.[employer]/multiple_crcl_2012.htm Performed By: #### P T, CDP, PTT, BMP ####[facility] [address] [facility] [place] [address] Lab Director: Jelani Liu MD Anion gap [Moles/Vol] 10 mmol/L Normal 9-17 [facility] Comment on above: Performed By: #### P T, CDP, PTT, BMP ####[facility] [address] [place] [address].[place] [address] Lab Director: Jelani Liu MD BUN/CRE Ratio 13 Normal 9-20 [facility] Comment on above: Performed By: #### P T, CDP, PTT, BMP ####[facility] [address] [place] [address].[place] [address] Lab Director: Jelani Liu MD Calcium [Mass/Vol] 8.8 mg/dL Normal 8.6-10.4 [facility] Comment on above: Performed By: #### P T, CDP, PTT, BMP ####[facility] [address] [place] [address].[place] [address] Lab Director: Jelani Liu MD Chloride [Moles/Vol] 104 mmol/L Normal 98-107 [facility] Comment on above: Performed By: #### P T, CDP, PTT, BMP ####[facility] [address] [place] [address].[place] [address] Lab Director: Jelani Liu MD CO2 [Moles/Vol] 24 mmol/L Normal 20-31 [facility] Comment on above: Performed By: #### P T, CDP, PTT, BMP ####[facility] H[address]71 [place] [address] Lab Director: Jelain Liu MD Creatinine [Mass/Vol] 1.01 mg/dL High 0.50-0.90 [facility] Comment on above: Performed By: #### P T, CDP, PTT, BMP ####[facility] [address] [place] [address] Lab Director: Jelani Liu MD GFR, Amer >60 Normal >60 [facility] Comment on above: Performed By: #### P T, CDP, PTT, BMP ####[facility] [address] [place] [address] Lab Director: Jelani Liu MD GFR,non Amer 55 mL/min Low >60 [facility] Comment on above: Performed By: #### P T, CDP, PTT, BMP ####[facility] [address] [place] [address] Lab Director: Jelani Liu MD Glucose [Mass/Vol] 101 mg/dL High 70-99 [facility] Comment on above: Performed By: #### P T, CDP, PTT, BMP ####[facility] [address] [place] [address] Lab Director: Jelani Liu MD Potassium [Moles/Vol] 3.9 mmol/L Normal 3.7-5.3 [facility] Comment on above: Performed By: #### P T, CDP, PTT, BMP ####[facility] [address] [place] [address] Lab Director: Jelani Liu MD Sodium [Moles/Vol] 138 mmol/L Normal 135-144 [facility] Comment on above: Performed By: #### P T, CDP, PTT, BMP ####[facility] [address], [place] [address] lab Director: Jelani Liu MD Urea nitrogen [Mass/Vol] 13 mg/dL Normal 8- [facility] Comment on above: Performed By: #### P T, CDP, PTT, BMP ####[facility] [address] [facility], [place] [id number] lab Director: Jelani Liu MD CBC with Auto Differentialon 01-26-2022 Absolute Eos # 0.00 [facility] Absolute Immature Granulocyte 0.00 [facility] Absolute Lymph # 5.08 High [facility] Comment on above: R/O Chronic Lymphopr oliferative Disorder, recommend peripheral blood Flow Cytometry, if clinically indicated. Absolute [facility] # 1.13 [facility] Basophils (Bld) [#/Vol] 0.09 10*3/uL [facility] Basophils/100 WBC (Bld) 1 % 0 - 2 % [facility] Eosinophils/100 WBC (Bld) 0 % Low 1 - 4 % [facility] Hematocrit (Bld) [Volume fraction] 38.1 % 36.3 - 47.1 % [facility] Hemoglobin (Bld) [Mass/Vol] 11.4 g/dL Low 11.9 - 15.1 g/dL [facility] Immature granulocytes/100 WBC (Bld) 0 % 0 [facility] Interpretation and review of laboratory results Abnormal [facility] Lymphocytes/100 WBC (Bld) 54 % High 24 - 43 % [facility] MCH (RBC) [Entitic mass] 25.7 pg 25. 2 - 33.5 pg [facility] MCHC (RBC) [Mass/Vol] 29.9 g/dL 28.4 - 34.8 g/dL [facility] MCV (RBC) [Entitic vol] 86.0 fL 82.6 - 102.9 fL [facility] Monocytes/100 WBC (Bld) 12 % 3 - 12 % B [facility] NRBC Automated 0.0 0.0 per 100 WBC [facility] Platelet distribution width (Bld) [Ratio] 16.7 % High 11.8 - 14.4 % [facility] Platelet mean volume (Bld) [Entitic vol] 9.6 fL 8.1 - 13.5 fL [facility] Platelets (Bld) [#/Vol] 277 10*3/uL [facility] RBC (Bld) [#/Vol] 4.43 10*6/uL 3.95 - 5.1 1 m/uL [facility] Segmented neutrophils/100 WBC (Bld) 33 % Low 36 - 65 % [facility] Segs Absolute 3.10 [facility] WBC (Bld) [#/Vol] 9.4 10*3/uL [facility] CBC with Diffon 01-26-2022 Abs. Basophil 0.09 k/uL Normal 0.00-0.20 [facility] Comment on above: Performed By: #### P T, CDP, PTT, BMP ####[facility] [address] [place] [address] Lab Director: Jelani Liu MD Abs.Imm.Granulocyte 0.00 k/uL Normal 0.00-0.30 [facility] Comment on above: Performed By: #### P T, CDP, PTT, BMP ####[facility] R[address]72 [place] [address] Lab Director: Jelani Liu MD Abs.Neutrophil (Seg) 3.10 k/uL Normal 1.50-8.10 [facility] Comment on above: Performed By: #### P T, CDP, PTT, BMP ####[facility] [address] [place] [address] Lab Director: Jelani Liu MD Basophils/100 WBC (Bld) 1 % Normal 0-2 M [facility] Comment on above: Performed By: #### P T, CDP, PTT, BMP ####[facility] [address], [place] [address])[phone] Director: Jelani Liu MD Eosinophils (Bld) [#/Vol] 0.00 10*3/uL Normal 0.00-0.44 [facility] Comment on above: Performed By: #### P T, CDP, PTT, BMP ####[facility] [address], [place] [phone] Director: Jelani Liu MD Eosinophils/100 WBC (Bld) 0 % Low 1-4 [facility] Comment on above: Performed By: #### P T, CDP, PTT, BMP ####[facility] [address] [place], [place] [address], [place] [address])[phone] Director: Jelani Liu MD Immature granulocytes/100 WBC (Bld) 0 % Normal 0 [facility] Comment on above: Performed By: #### P T, CDP, PTT, BMP ####[facility] [address] [facility], [place] [address])[phone] Director: Jelani Liu MD Lymphocytes (Bld) [#/Vol] 5.08 10*3/uL High 1.10-3.70 [facility] Comment on above: Result Comment: R/O Chronic Lymphoproliferative Disorder, recommend peripheral blood Flow Cytometry, if clinically indicated. Performed By: #### P T, CDP, PTT, BMP ####[facility] [address], [place] [address])[phone] Director: Jelani Liu MD Lymphocytes/100 WBC (Bld) 54 % High 24-43 [facility] Comment on above: Performed By: #### P T, CDP, PTT, BMP ####[facility] [address] [place] [address] Lab Director: Jelani Liu MD Monocytes (Bld) [#/Vol] 1.13 10*3/uL Normal 0.10-1.20 [facility] Comment on above: Performed By: #### P T, CDP, PTT, BMP ####[facility] [address] [place] [address].[place], [place] [phone] Director: Jelani Liu MD Monocytes/100 WBC (Bld) 12 % Normal 3-12 M [facility] Comment on above: Performed By: #### P T, CDP, PTT, BMP ####[facility] [address] [place], [place] [address])[phone] Director: Jelani Liu MD Neutrophil (Seg) 33 % Low 36-65 [facility] Comment on above: Performed By: #### P T, CDP, PTT, BMP ####[facility] [address] [place], [place] [address])[phone] Director: Jelani Liu MD Erythrocyte distribution width (RBC) [Ratio] 16.7 % High 11.8-14.4 [facility] Comment on above: Performed By: #### P T, CDP, PTT, BMP ####[facility] [address] [place] [address].[place], [place] [phone] Director: Jelani Liu MD Hematocrit (Bld) [Volume fraction] 38.1 % Normal 36.3-47.1 [facility] Comment on above: Performed By: #### P T, CDP, PTT, BMP ####[facility] [address] [place] [address].[place], [place] [address])[phone] Director: Jelani Liu MD Hemoglobin (Bld) [Mass/Vol] 11.4 g/dL Low 11.9-15.1 [facility] Comment on above: Performed By: #### P T, CDP, PTT, BMP ####[facility] [address] [place] [address] Lab Director: Jelani Liu MD MCH (RBC) [Entitic mass] 25.7 pg Normal 25.2-33.5 [facility] Comment on above: Performed By: #### P T, CDP, PTT, BMP ####[facility] [address] [facility] [place] [address] Lab Director: Jelani Liu MD MCHC (RBC) [Mass/Vol] 29.9 g/dL Normal 28.4-34.8 [facility] Comment on above: Performed By: #### P T, CDP, PTT, BMP ####[facility] [address] [facility] [place] [address] Lab Director: Jelani Liu MD MCV (RBC) [Entitic vol] 86.0 fL Normal 82.6-102.9 [facility] Comment on above: Performed By: #### P T, CDP, PTT, BMP ####[facility] [address] [facility] [place] [address] Lab Director: Jelani Liu MD NRBC Automated 0.0 per 100 WBC Normal 0.0 [facility] Comment on above: Performed By: #### P T, CDP, PTT, BMP ####[facility] N[address] [facility] [place] [address] Lab Director: Jelani Liu MD Platelet mean volume (Bld) [Entitic vol] 9.6 fL Normal 8.1-13.5 [facility] Comment on above: Performed By: #### P T, CDP, PTT, BMP ####[facility] [address] [place] [address].[place] [address] Lab Director: Jelani Liu MD Platelets (Bld) [#/Vol] 277 10*3/uL Normal 138-453 [facility] Comment on above: Performed By: #### P T, CDP, PTT, BMP ####[facility] [address] [facility] [place] [address] Lab Director: Jelani Liu MD RBC (Bld) [#/Vol] 4.43 10*6/uL Normal 3.95-5.11 [facility] Comment on above: Performed By: #### P T, CDP, PTT, BMP ####[facility] [address] [facility], [place] [phone] Director: Jelani Liu MD WBC (Bld) [#/Vol] 9.4 10*3/uL Normal 3.5-11.3 [facility] Comment on above: Performed By: #### P T, CDP, PTT, BMP ####[facility] [address] [facility], [place] [phone] Director: Jelani Liu MD MRSA DNA Probe, Nasalon - MRSA, DNA, Nasal Negative NEGATIVE [facility] Comment on above: NEGATIVE: MRSA DNA n ot detected by nucleic acid amplification. Results should be used as an adjunct to nosocomial control efforts to identify patients needing enhanced precautions. The test is not intended to identify patients with staphylococcal infections. Results should not be used to guide or monitor treatment for MRSA infections. Specimen Description .NASAL SWAB [facility] MRSA, DNA, Nasalon MRSA, DNA, Nasal Negative Normal NEG [facility] Comment on above: Result Comment: NEGA TIVE: MRSA DNA not detected by nucleic acid amplification. Results should be used as an adjunct to nosocomial control efforts to identify patients needing enhanced precautions. The test is not intended to identify patients with staphylococcal infections. Results should not be used to guide or monitor treatment for MRSA infections. Performed By: #### M RSANO ####[facility] [address] [facility] [place] [address] Lab Director: Jelani Liu [facility] HOSPITALBidPal NetworkFrank Ville [address] [place], [place] [phone] Lab Director: Terrance Luevano MD Specimen Description .NASAL SWAB Normal [facility] Comment on above: Performed By: #### M RSANO ####[facility] [address] [place] [address] Lab Director: Jelani Liu [facility] HOSPITALRarus Innovations[address] [place] [address] Lab Director: Terrance Luevano MD No Panel Informationon 01-26 [facility] PTon 01-26-2022 INR Coag (PPP) [Relative time] 0.9 {INR} Normal [facility] Comment on above: Result Comment: Non-therapeutic Range: INR = 0.9-1.2 Therapeutic Range: Moderate Anticoagulant Intensity: INR = 2.0-3.0 High Anticoagulant Intensity: INR = 2.5-3.5 Performed By: #### P T, CDP, PTT, BMP #### [facility] [address] [place] [address] Operating Theatre Technician: Jelani Liu MD PT Coag (PPP) [Time] 12.1 s Normal 11.5-14.2 [facility] Comment on above: Performed By: #### P T, CDP, PTT, BMP #### [facility] [address] [place] [address] Operating Theatre Technician: Jelani Liu MD Protime-INRon 01-26-2022 INR Coag (Bld) [Relative time] 0.9 {INR} [facility] Comment on above: Non-therapeutic Range: INR = 0.9-1.2 Therapeutic Range: Moderate Anticoagulant Intensity: INR = 2.0-3.0 High Anticoagulant Intensity: INR = 2.5-3.5 PT Coag (PPP) [Time] 12.1 s [facility] Urinalysison 01-26-2022 Bilirubin Urine Negative NEGATIVE [facility] Color, UA Yellow Yellow [facility] Glucose, Ur Negative NEGATIVE [facility] Interpretation and review of laboratory results Abnormal [facility] Ketones Ql (U) Negative NEGATIVE [facility] Leukocyte esterase Test strip Ql (U) Negative NEGATIVE [facility] Nitrite, Urine Negative NEGATIVE [facility] pH, UA 5.5 5 - 8 [facility] Protein, UA Negative NEGATIVE [facility] Specific [place], UA 1.037 High 1.005 - 1.03 [facility] Turbidity UA Clear Clear [facility] Urinalysis Comments Microscopic exam not performed based on chemical results unless requested in original order. [facility] Urine Hgb Negative NEGATIVE [facility] Urobilinogen, Urine Normal Normal [facility] Urinalysis, Routineon 2021 Bilirubin, SemiQt,Ur Negative Normal NEG [facility] Comment on above: Performed By: #### U A #### [facility] [address] [facility] [place] [address] Operating Theatre Technician: Jelani Liu MD Blood, Urine Negative Normal NEG [facility] Comment on above: Performed By: #### U A #### [facility] [address] [facility] [place], [place] [phone] Operating Theatre Technician: Jelani Liu MD Clarity (U) Clear Normal CLEAR [facility] Comment on above: Performed By: #### U A #### [facility] [address] [facility] [place], [place] [phone] Operating Theatre Technician: Jelani Liu MD Color (U) Yellow Normal YEL [facility] Comment on above: Performed By: #### U A #### [facility] [address] [facility] [place], [place] [phone] Operating Theatre Technician: Jelani Liu MD Comment Microscopic exam not performed based on chemical results unless requested in Normal [facility] Comment on above: Result Comment: orig inal order. Performed By: #### U A #### [facility] [address] [place] [address] Operating Theatre Technician: Jelani Liu MD Glucose Ql (U) Negative Normal NEG [facility] Comment on above: Performed By: #### U A #### [facility] [address] [place] [address] Operating Theatre Technician: Jelani Liu MD Ketones Ql (U) Negative Normal NEG [facility] Comment on above: Performed By: #### U A #### [facility] [address] [place] [address]. [place] [address] Operating Theatre Technician: Jelani Liu MD Leukocyte esterase Test strip Ql (U) Negative Normal NEG [facility] Comment on above: Performed By: #### U A #### [facility] [address] [facility] [place] [address] Operating Theatre Technician: Jelani Liu MD Nitrite,Ur Negative Normal NEG [facility] Comment on above: Performed By: #### U A #### [facility] [place] [address] Operating Theatre Technician: Jelani Liu MD PH,Ur 5.5 Normal 5.0-8.0 [facility] Comment on above: Performed By: #### U A #### [facility] [address] [place] [address]. [place] [address] Operating Theatre Technician: Jelani Liu MD Protein Ql (U) Negative Normal NEG [facility] Comment on above: Performed By: #### U A #### [facility] [address] [place] [address]. [place] [address] Operating Theatre Technician: Jelani Liu MD Spec. [place],Ur 1.037 High 1.005-1.030 [facility] Comment on above: Performed By: #### U A #### [facility] [address] [place] [address] Operating Theatre Technician: Jelani Liu MD Urobilinogen,Ur Normal Normal NORM [facility] Comment on above: Performed By: #### U A #### [facility] [address] [place] [address] Operating Theatre Technician: Jelani Liu MD Activated partial thrombopla stin time (aPTT) in platelet poor plasma by coagulation aOrdered By: Dalia Villasenor on 12-29-2021 aPTT Coag (PPP) [Time] 31.0 s 25.1-36.5 [facility] Albumin [Mass/volume] in Ser um or PlasmaOrdered By: Dalia Villasenor on 12-29-2021 Albumin [Mass/Vol] 4.0 g/dL 3.2-5.5 [facility] Albumin [Mass/Vol] 3.5 g/dL 2.9-4.4 [facility] Albumin/Protein.total in 24 hour Urine by ElectrophoresisOrdered By: Dalia Villasenor on 12-29-2021 Albumin Elph (24H U) [Mass fraction] 27.5 % . [facility] Automated erythrocytes count in urine sediment (number/area)Ordered By: Dalia Villasenor on 12-29-2021 RBC Auto (Urine sed) [#/Area] 3-4 [HPF] 0-4 [facility] Automated leukocytes count i n urine sediment (number/area)Ordered By: Dalia Villasenor on 12-29-2021 WBC Auto (Urine sed) [#/Area] None seen [HPF] 0-4 [facility] Basophils Auto (Bld) [#/Vol] Ordered By: Dalai Villasenor on 12-29-2021 Basophils (Bld) [#/Vol] 0.1 10*3/uL 0.0-0.2 [facility] Basophils/100 WBC Auto (Bld) Ordered By: Dalia Villasenor on 12-29-2021 Basophils/100 WBC (Bld) 1.4 % . [facility] Bilirubin Auto test strip Ql (U)Ordered By: Dalia Villasenor on 12-29-2021 Bilirubin Ql (U) Negative Negative [facility] Blood hemoglobin measurement (mass/volume)Ordered By: Dalia Villasenor on 12-29-2021 Hemoglobin (Bld) [Mass/Vol] 12.2 g/dL 11.8-15.4 [facility] Blood leukocytes automated c ount (number/volume)Ordered By: Dalia Villasenor on 12-29-2021 WBC (Bld) [#/Vol] 6.9 10*3/uL 4.5-11.0 [facility] Borrelia burgdorferi Ab [Int erpretation] in SerumOrdered By: Dalia Villasenor on 12-29-2021 B. burgdorferi Ab (S) [Interp] N/A [facility] Borrelia burgdorferi IgG Ab [Presence] in Serum or Plasma by ImmunoassayOrdered By: Dalia Villasenor on 12-29-2021 B. burgdorferi IgG IA Ql N/A [facility] Borrelia burgdorferi IgG+IgM Ab [Presence] in Serum by ImmunoassayOrdered By: Dalia Villasenor on 12-29-2021 B. burgdorferi IgG+IgM IA Ql (S) Negative Negative [facility] Comment on above: Lyme Antibody Negati ve No laboratory evidence of infection with B. burgdorferi (Lyme disease). Negative results may occur in patients recently infected (less than or equal to 14 days) with B. burgdorferi. If recent infection is suspected, repeat testing on a new sample collected in 7 to 14 days is recommended. Performed at: [address] [id number] Operating Theatre Technician: Castro Lugo PhD, Phone: [phone] Borrelia burgdorferi IgM Ab [Presence] in Serum or Plasma by ImmunoassayOrdered By: Dalia Villasenor on 12-29-2021 B. burgdorferi IgM IA Ql N/A [facility] C reactive protein [Mass/vol ume] in Serum or PlasmaOrdered By: Dalia Villasenor on 12-29-2021 CRP [Mass/Vol] 1.3 mg/dL 0.0-1.[address] [facility] CT biopsyOrdered By: Dalia Villasenor on 12-29-2021 CT biopsy 4.5 U/L 3.3-10.3 [facility] Comment on above: Performed at: [address] [id number] Operating Theatre Technician: Castro Lugo PhD, Phone: [phone] Creatine kinase [Enzymatic a ctivity/volume] in Serum or PlasmaOrdered By: Dalia Villasenor on 12-29-2021 CK [Catalytic activity/Vol] 77 U/L 22-269 [facility] Creatinine and Glomerular fi ltration rate.predicted panel (S/P/Bld)Ordered By: Dalia Villasenor on 12-29-2021 Creatinine [Mass/Vol] 1.14 mg/dL 0.44-1.03 [facility] Dilute Samuel's viper venom timeOrdered By: Dalia Villasenor on 12-29-2021 dRVVT Coag (PPP) [Time] 34.3 s 0.0-47.0 [facility] Eosinophils Auto (Bld) [#/Vo l]Ordered By: Dalia Villasenor on 12-29-2021 Eosinophils (Bld) [#/Vol] 0.1 10*3/uL 0.0-0.45 [facility] Eosinophils/100 WBC Auto (Bl d)Ordered By: Dalia Villasenor on 12-29-2021 Eosinophils/100 WBC (Bld) 1.3 % . [facility] Erythrocyte distribution wid th Auto (RBC) [Ratio]Ordered By: Dalia Villasenor on 12-29-2021 Erythrocyte distribution width (RBC) [Ratio] 17.9 % 11.9-15.3 [facility] Erythrocyte sedimentation ra te by Photometric methodOrdered By: Dalia Villasenor on 12-29-2021 ESR Photometric method (Bld) [Velocity] 17 mm/hr 0-29 [facility] Estimated glomerular filtrat ion rate (GFR) non- AmericanOrdered By: Dalia Villasenor on 12-29-2021 GFR/1.73 sq M.predicted among non-blacks MDRD (S/P/Bld) [Vol rate/Area] 48 mL/Min [facility] Gamma globulin/Protein.total in 24 hour Urine by ElectrophoresisOrdered By: Dalia Villasenor on 12-29-2021 Gamma globulin Elph (24H U) [Mass fraction] 23.1 % . [facility] Globulin Calc (S) [Mass/Vol] Ordered By: Dalia Villasenor on 12-29-2021 Globulin (S) [Mass/Vol] 2.4 g/dL [facility] Hematocrit Auto (Bld) [Volum e fraction]Ordered By: Dalia Villasenor on 12-29-2021 Hematocrit (Bld) [Volume fraction] 39.0 % 34.0-46.4 [facility] Hepatitis B virus surface Ag [Presence] in Serum or Plasma by ImmunoassayOrdered By: Dalai Villasenor on 12-29-2021 HBV surface Ag IA Ql Negative Negative [facility] IgA [Mass/volume] in Serum o r PlasmaOrdered By: Dalia Villasenor on 12-29-2021 IgA [Mass/Vol] 137 mg/dL 87-352 [facility] IgG [Mass/volume] in Serum o r PlasmaOrdered By: Dalia Villasenor on 12-29-2021 IgG [Mass/Vol] 524 mg/dL 586-1602 [facility] IgM [Mass/volume] in Serum o r PlasmaOrdered By: Dalia Villasenor on 12-29-2021 IgM [Mass/Vol] 373 mg/dL 26-217 [facility] Immunofixation for UrineOrde red By: Dalia Villasenor on 12-29-2021 Interpretation Immunofixation (U) [Interp] See comment . [facility] Comment on above: No monoclonality det ected. Performed at: [facility] [id number] Operating Theatre Technician: Castro Lugo PhD, Phone: [phone] Ketones Auto test strip (U) [Mass/Vol]Ordered By: Dalia Villasenor on 12-29-2021 Ketones (U) [Mass/Vol] Negative Negative [facility] - Chemistry and C hemistry - challengeOrdered By: Dalia Villasenor on 12-29-2021 Cobalamin (Vitamin B12) [Mass/Vol] 193 pg/mL 180-914 [facility] - CoagulationOrde red By: Dalia Villasenor on 12-29-2021 PT Coag (PPP) [Time] 10.4 s 9.0-12.9 [facility] - Hematology and Cell countsOrdered By: Dalia Villasenor on 12-29-2021 Nucleated RBC/100 WBC (Bld) [Ratio] 0.0 % 0-0.5 [facility] - UrinalysisOrder ed By: Dalia Villasenor on 12-29-2021 Hyaline casts LM Ql (Urine sed) 0-8 [LPF] 0-8 [facility] Lupus anticoagulant [Interpr etation] in Platelet poor plasmaOrdered By: Dalia Villasenor on 12-29-2021 Lupus anticoagulant (PPP) [Interp] Comment: . [facility] Comment on above: No lupus anticoagula nt was detected. Performed at: [facility] [id number] Operating Theatre Technician: Bharath Linares MD, Phone: [phone] Lymphocytes Auto (Bld) [#/Vo l]Ordered By: Dalia Villasenor on 12-29-2021 Lymphocytes (Bld) [#/Vol] 3.1 10*3/uL 1.00-4.8 [facility] Lymphocytes/100 WBC Auto (Bl d)Ordered By: Dalia Villasenor on 12-29-2021 Lymphocytes/100 WBC (Bld) 44.5 % . [facility] MCH Auto (RBC) [Entitic mass ]Ordered By: Dalia Villasenor on 12-29-2021 MCH (RBC) [Entitic mass] 25.6 pg 24.7-34.3 [facility] MCHC Auto (RBC) [Mass/Vol]Or dered By: Dalia Villasenor on 12-29-2021 MCHC (RBC) [Mass/Vol] 31.4 g/dL 32.0-35.0 [facility] MCV Auto (RBC) [Entitic vol] Ordered By: Dalia Villasenor on 12-29-2021 MCV (RBC) [Entitic vol] 81.7 fL 80-100 [facility] Monocytes Auto (Bld) [#/Vol] Ordered By: Dalia Jacklyn on 12-29-2021 Monocytes (Bld) [#/Vol] 0.8 10*3/uL 0.0-0.8 [facility] Monocytes/100 WBC Auto (Bld) Ordered By: Dalia Villasenor on 12-29-2021 Monocytes/100 WBC (Bld) 11.6 % . [facility] Neutrophils Auto (Bld) [#/Vo l]Ordered By: Dalia Jacklyn on 12-29-2021 Neutrophils (Bld) [#/Vol] 2.8 10*3/uL 1.8-7.7 [facility] Neutrophils/100 WBC Auto (Bl d)Ordered By: Dalia Villasenor on 12-29-2021 Neutrophils/100 WBC (Bld) 41.2 % . [facility] No Panel InformationOrdered By: Dalia Villasenor on 12-29-2021 Estimated GFR () 58 mL/Min [facility] Comment on above: GFR estimated refere nce range: According to KDOQI guidelines, <60 ml/min/1.73m2 is sufficient to diagnose a patient with chronic kidney disease. Hepatitis B Core Total Antibody Negative Negative [facility] Comment on above: Performed at: [facility] [address] [id number] Operating Theatre Technician: Castro Lugo PhD, Phone: [phone] Hepatitis C Interpretation See comment . [facility] Comment on above: Negative Not infected with HCV, unless recent infection is suspected or other evidence exists to indicate HCV infection. Hepatitis C RNA Quantitative N/A [facility] Pharmacy Creatinine Clearance (Chem N/A [facility] Protein Electrophoresis M-Luis Comment: g/dL Not Observed [facility] Comment on above: ASYMMETRICAL GAMMA Protein Electrophoresis Note See comment . [facility] Comment on above: Protein electrophore sis scan will follow via computer, mail, or pattern chain builder delivery. Performed at: [facility] [address] [id number] Operating Theatre Technician: Castro Lugo PhD, Phone: [phone] Serum Immunofixation Comment: . [facility] Comment on above: Presence of monoclon al protein is unclear at this time. Suggest repeat in 3 to 6 months if clinically indicated. Total Complement (CH50) 60 U/mL >41 [facility] Comment on above: Age Male Female [...] determine out of range values. Performed at: [place] [id number] Operating Theatre Technician: Castro Lugo PhD, Phone: [phone] Urine Random Prot Electrophor Note See comment . [facility] Comment on above: Protein electrophore sis scan will follow via computer, mail, or pattern chain builder delivery. Platelet mean volume Auto (B ld) [Entitic vol]Ordered By: Dalia Villasenor on 12-29-2021 Platelet mean volume (Bld) [Entitic vol] 8.9 fL 6.3-10.7 [facility] Platelet poor plasma interna tional normalized ratio (INR) by coagulation assay (relatOrdered By: Dalia Villasenor on 12-29-2021 INR Coag (PPP) [Relative time] 0.9 {INR} [facility] Comment on above: INR Therapeutic Rang [...] Coag (PPP) [Relative time] 34.6 sec 0.0-47.6 [facility] Platelets Auto (Bld) [#/Vol] Ordered By: Dalia Villasenor on 12-29-2021 Platelets (Bld) [#/Vol] 288 10*3/uL 150-450 [facility] Protein Auto test strip (U) [Mass/Vol]Ordered By: Dalia Villasenor on 12-29-2021 Protein (U) [Mass/Vol] Negative Negative [facility] Protein [Mass/volume] in Ser um or PlasmaOrdered By: Dalia Villasenor on 12-29-2021 Protein [Mass/Vol] 6.4 g/dL 6.0-8.5 [facility] Protein [Mass/volume] in Uri neOrdered By: Dalia Villasenor on 12-29-2021 Protein (U) [Mass/Vol] 6.1 mg/dL Not Estab. Fi [facility] Protein.monoclonal/Protein.t otal in 24 hour Urine by ElectrophoresisOrdered By: Dalia Villasenor on 12-29-2021 Protein.monoclonal Elph (24H U) [Mass fraction] Not observed % Not Observed [facility] RBC Auto (Bld) [#/Vol]Ordere d By: Dalia Villasenor on 12-29-2021 RBC (Bld) [#/Vol] 4.77 10*6/uL 3.60-5.00 [facility] Reagin Ab [Presence] in Seru m by RPROrdered By: Dalia Villasenor on 12-29-2021 Reagin Ab RPR Ql (S) Non-Reactive Non Reactive [facility] Comment on above: Performed at: [address] [id number] Operating Theatre Technician: Castro Lugo PhD, Phone: [phone] Serum globulin measurement ( mass/volume)Ordered By: Dalia Villasenor on 12-29-2021 Globulin (S) [Mass/Vol] 2.9 g/dL 2.2-3.9 [facility] Serum hepatitis B virus surf shellie antibody detectionOrdered By: Dalia Villasenor on 12-29-2021 HBV surface Ab Ql (S) Non-Reactive . [facility] Comment on above: Non Reactive: Incons istent with immunity, less than 10 mIU/mL Reactive: Consistent with immunity, greater than 9.9 mIU/mL Serum homogeneous pattern an tinuclear antibody (PATRICIA) titerOrdered By: Dalia Villasenor on 12-29-2021 Homogenous nuclear Ab pattern (S) [Titer] N/A [facility] Serum nuclear antibody titer Ordered By: Dalia Villasenor on 12-29-2021 Nuclear Ab (S) [Titer] Negative . [facility] Comment on above: Negative <1:80 Borderline 1:80 Positive >1:80 ICAP nomenclature: [id number] For more information about Hep-2 cell patterns use ANApatterns.org, the official website for the International Consensus on Antinuclear Antibody (PATRICIA) Patterns (ICAP). Performed at: [facility] [id number] Operating Theatre Technician: Castro Lugo PhD, Phone: [phone] Serum or plasma alanine schroeder otransferase measurement without P-5'-P (enzymatic activiOrdered By: Dalia Villasenor on 12-29-2021 ALT No additional P-5'-P [Catalytic activity/Vol] 20 U/L 10-60 [facility] Serum or plasma albumin/glob ulin mass ratioOrdered By: Dalia Villasenor on 12-29-2021 Albumin/Globulin [Mass ratio] 1.7 {ratio} [facility] Albumin/Globulin [Mass ratio] 1.2 {ratio} 0.7-1.7 [facility] Serum or plasma alkaline michelle sphatase measurement (enzymatic activity/volume)Ordered By: Dalia Villasenor on 12-29-2021 ALP [Catalytic activity/Vol] 57 U/L 32-92 [facility] Serum or plasma alpha 1 glob ulin measurement by electrophoresis (mass/volume)Ordered By: Dalia Villasenor on 12-29-2021 Alpha 1 globulin Elph [Mass/Vol] 0.2 g/dL 0.0-0.4 [facility] Serum or plasma alpha 2 glob ulin measurement by electrophoresis (mass/volume)Ordered By: Dalia Villasenor on 12-29-2021 Alpha 2 globulin Elph [Mass/Vol] 0.8 g/dL 0.4-1.0 [facility] Serum or plasma aspartate am inotransferase measurement (enzymatic activity/volume)Ordered By: Dalia Villasenor on 12-29-2021 AST [Catalytic activity/Vol] 22 U/L 10-42 [facility] Serum or plasma beta globuli n measurement by electrophoresis (mass/volume)Ordered By: Dalia Villasenor on 12-29-2021 Beta globulin Elph [Mass/Vol] 1.1 g/dL 0.7-1.3 [facility] Serum or plasma calcium lola urement (mass/volume)Ordered By: Dalia Villasenor on 12-29-2021 Calcium [Mass/Vol] 9.7 mg/dL 8.2-10.2 [facility] Serum or plasma chloride catia surement (moles/volume)Ordered By: Dalia Villasenor on 12-29-2021 Chloride [Moles/Vol] 101 mmol/L 95-114 [facility] Serum or plasma chromatin an tibody assay (units/volume)Ordered By: Dalia Villasenor on 12-29-2021 Chromatin Ab Qn <0.2 AI 0.0-0.9 [facility] Comment on above: Performed at: [facility] [address] [id number] Operating Theatre Technician: Castro Lugo PhD, Phone: [phone] Serum or plasma complement C 3 measurement (mass/volume)Ordered By: Dalia Villasenor on 12-29-2021 Complement C3 [Mass/Vol] 133 mg/dL 82-167 [facility] Comment on above: Performed at: [email or web address] [id number] Operating Theatre Technician: Castro Lugo PhD, Phone: [phone] Serum or plasma complement C 4 measurement (mass/volume)Ordered By: Dalia Villasenor on 12-29-2021 Complement C4 [Mass/Vol] 27 mg/dL 12-38 [facility] Serum or plasma gamma globul in measurement by electrophoresis (mass/volume)Ordered By: Dalia Villasenor on 12-29-2021 Gamma globulin Elph [Mass/Vol] 0.7 g/dL 0.4-1.8 [facility] Serum or plasma glucose lola urement (mass/volume)Ordered By: Dalia Villasenor on 12-29-2021 Glucose [Mass/Vol] 101 mg/dL 70-100 [facility] Comment on above: ADA recommended refe [...] IA [Rel units/Vol] 0.1 s/co ratio 0.0-0.9 [facility] Serum or plasma potassium me asurement (moles/volume)Ordered By: Dalia Villasenor on 12-29-2021 Potassium [Moles/Vol] 4.4 mmol/L 3.5-5.1 [facility] Serum or plasma sodium measu rement (moles/volume)Ordered By: Dalia Villasenor on 12-29-2021 Sodium [Moles/Vol] 137 mmol/L 136-146 [facility] Serum or plasma thyroglobuli n antibody assay (units/volume)Ordered By: Dalia Villasenor on 12-29-2021 Thyroglobulin Ab Qn [IU]/mL 0.0-0.9 [facility] Comment on above: Thyroglobulin Antibo dy measured by [facility] [place] Method[employer] Performed at: [facility] [address] [id number] Operating Theatre Technician: Castro Lugo PhD, Phone: [phone] Serum or plasma thyroperoxid ase antibody assay (units/volume)Ordered By: Dalia Villasenor on 12-29-2021 TPO Ab Qn 28 [IU]/mL 0-34 [facility] Comment on above: Performed at: [facility] [address] [id number] Operating Theatre Technician: Castro Lugo PhD, Phone: [phone] Serum or plasma total biliru bin measurement (mass/volume)Ordered By: Dalia Villasenor on 12-29-2021 Bilirubin [Mass/Vol] 0.5 mg/dL 0.3-1.2 [facility] Serum or plasma total carbon dioxide measurement (moles/volume)Ordered By: Dalia Villasenor on 12-29-2021 CO2 [Moles/Vol] 23.4 mmol/L 22.0-30.0 [facility] Serum or plasma urea nitroge n measurement (mass/volume)Ordered By: Dalia Villasenor on 12-29-2021 Urea nitrogen [Mass/Vol] 8 mg/dL 9-23 [facility] Squamous epithelial cells de tection in urine sediment by light microscopyOrdered By: Dalia Villasenor on 12-29-2021 Epithelial cells.squamous LM Ql (Urine sed) None seen [HPF] 0-2 [facility] TSH DL <= 0.005 mIU/L QnOrde red By: Dalia Villasenor on 12-29-2021 TSH Qn 1.83 m[IU]/L 0.45-5.33 [facility] TT plasOrdered By: Dalia akers on 12-29-2021 Thrombin time Coag (PPP) [Time] 19.1 sec 0.0-23.0 [facility] Thyroxine (T4) free [Mass/vo lume] in Serum or PlasmaOrdered By: Dalia Villasenor on 12-29-2021 Free T4 [Mass/Vol] 0.98 ng/dL 0.61-1.12 [facility] Urine alpha 1 globulin/total protein by electrophoresisOrdered By: Dalia Villasenor on 12-29-2021 Alpha 1 globulin Elph (U) [Mass fraction] 3.9 % . [facility] Urine alpha 2 globulin/total protein ratio by electrophoresisOrdered By: Dalia Villasenor on 12-29-2021 Alpha 2 globulin Elph (U) [Mass fraction] 19.7 % . [facility] Urine appearanceOrdered By: Dalia Villasenor on 12-29-2021 Appearance (U) Clear Clear [facility] Urine bacteria detection by automated methodOrdered By: Dalia Villasenor on 12-29-2021 Bacteria Auto Ql (U) None seen None Seen [facility] Urine beta globulin measurem ent by electrophoresis (mass/volume)Ordered By: Dalia Villasenor on 12-29-2021 Beta globulin Elph (U) [Mass/Vol] 25.8 % . [facility] Urine colorOrdered By: Parmjit Villasenor on 12-29-2021 Color (U) Yellow Yellow [facility] Urine glucose measurement by automated test strip (mass/volume)Ordered By: Dalia Villasenor on 12-29-2021 Glucose Auto test strip (U) [Mass/Vol] Normal mg/dL Normal [facility] Urine hemoglobin detection b y automated test stripOrdered By: Dalia Villasenor on 12-29-2021 Hemoglobin Auto test strip Ql (U) Negative Negative [facility] Urine leukocyte esterase det ection by automated test stripOrdered By: Dalia Villasenor on 12-29-2021 Leukocyte esterase Auto test strip Ql (U) Negative Negative [facility] Urine nitrite detection by a utomated test stripOrdered By: Dalia Villasenor on 12-29-2021 Nitrite Auto test strip Ql (U) Negative Negative [facility] Urobilinogen Auto test strip (U) [Mass/Vol]Ordered By: Dalia Villasenor on 12-29-2021 Urobilinogen (U) [Mass/Vol] Normal mg/dL Normal [facility] aPTT.lupus sensitive (LA scr een)Ordered By: Dalia Villasenor on 12-29-2021 aPTT.lupus sensitive Coag (PPP) [Time] 31.9 sec 0.0-51.9 [facility] aPTT.lupus sensitive/aPTT.marcial pus sensitive W excess phospholipid (screen to confirm raOrdered By: Dalia Villasenor on 12-29-2021 aPTT.lupus sensitive/aPTT.lupus sensitive W excess phospholipid Coag (PPP) [Ratio] 1.17 Ratio 0.00-1.34 [facility] pH Auto test strip (U)Ordere d By: Dalia Villasenor on 12-29-2021 pH (U) 1.020 [pH] 1.001-1.030 [facility] pH (U) 6.5 [pH] 5.0-9.0 [facility] CREATININEon 12-26-2021 Creatinine [Mass/Vol] 1.20 mg/dL Critically high 0.55-1.[address] [facility] Comment on above: Performed By: #### C HUMBERTO #### [facility] [address] [address] [address] Barrington Gomez EGFR-AF FRENCH 55 mL/min/1.73m2 Critically low >=[address] [facility] Comment on above: Performed By: #### C HUMBERTO #### [facility] [address] [address] [address] Barrington Gomez EGFR-NON AF FRENCH 45 mL/min/1.73m2 Critically low >=[address] [facility] Comment on above: Performed By: #### C HUMBERTO #### [facility] [address] [address] [address] ABD/PELV W CONon [...] DEREK COLLINS Date: 2021-12-26 15:[address] [facility] CULTURE URINEon 11-28-2021 CULTURE URINE Culture Observations : No growth Normal [facility] Comment on above: Performed By: #### U AMIC #### [facility] [address] [address] [address] Barrington Gomez UA RANDOM W/MICROSCOPICon BACTERIA TRACE Abnormal NONE SEEN [facility] Comment on above: Performed By: #### U AMIC #### [facility] [address] [address] [address] Barrington Gomez Bilirubin Ql (U) Negative Normal NEGATIVE [facility] Comment on above: Performed By: #### U AMIC #### [facility] [address] [place] [address] Dr. Barrington Gomez CAST SEEN Abnormal NONE SEEN [facility] Comment on above: Performed By: #### U AMIC #### [facility] [address] [address] [address] Barrington Gomez Clarity (U) CLEAR Normal CLEAR [facility] Comment on above: Performed By: #### U AMIC #### [facility] [address] [address] [address] Barrington Gomez Color (U) YELLOW Normal YELLOW [facility] Comment on above: Performed By: #### U AMIC #### [facility] [address] [address] [address] Barrington Gomez Crystals LM Nom (Urine sed) NONE SEEN Normal NONE SEEN [facility] Comment on above: Performed By: #### U AMIC #### [facility] [address] [address] [address] Barrington Gomez Epithelial cells LM Ql (Urine sed) RARE Normal NONE SEEN /RARE [facility] Comment on above: Performed By: #### U AMIC #### [facility] [address] [address] [address] Barrington Gomez Glucose Ql (U) Negative Normal NEGATIVE [facility] Comment on above: Performed By: #### U AMIC #### [facility] [address] [address] [address] Barrington Gomez Hemoglobin Ql (U) Negative Normal NEGATIVE [facility] Comment on above: Performed By: #### U AMIC #### [facility] [address] [address] [address] Barrington Gomez Ketones Ql (U) Negative Normal NEGATIVE [facility] [facility] Comment on above: Performed By: #### U AMIC #### [facility] [address] [address] [address] Barrington Gomez LEUKOCYTES Negative Normal NEGATIVE [facility] Comment on above: Performed By: #### U AMIC #### [facility] [address] [address] [address] Barrington Gomez MUCOUS SMALL Abnormal NONE SEEN [facility] Comment on above: Performed By: #### U AMIC #### [facility] [address] [place] [address] Dr. Barrington Gomez Nitrite Ql (U) Negative Normal NEGATIVE [facility] Comment on above: Performed By: #### U AMIC #### [facility] [address] [place] [address] Dr. Barrington Gomez pH (U) 5.5 [pH] Normal 5-9 [facility] Comment on above: Performed By: #### U AMIC #### [facility] [address] [place] [address] Dr. Barrington Gomez RBC NONE SEEN Abnormal 0-[address] [facility] Comment on above: Performed By: #### U AMIC #### [facility] [address] [place] [address] Dr. Barrington Gomez SPEC GRAVITY >=1.030 Abnormal 1.005-<=1.[address] [facility] Comment on above: Performed By: #### U AMIC #### [facility] [address] [place] [address] Dr. Barrington Gomez UA PROTEIN Negative Normal NEGATIVE/ TRACE [facility] Comment on above: Performed By: #### U AMIC #### [facility] [address] [place] [address] Dr. Barrington Gomez Urobilinogen Qn (U) 0.2 {Antionette'U}/dL Normal 0.2 - 1. [address] [facility] Comment on above: Performed By: #### U AMIC #### [facility] [address] [place], [place] [address] Dr. Barrington Gomez WBC 0-2 Abnormal NONE SEEN [facility] Comment on above: Performed By: #### U AMIC #### [facility] [id number] Barrington Gomez US KIDNEYS BLADDERon 022 [...] FELISHA BARROW Date: 2021-11-21 15:[address] [facility] UA DIP, URINE (POC)on 2021 BILIRUBIN UA (POCT) Negative Negative [facility] CLARITY UA (POCT) Clear [facility] COLOR UA (POCT) Yellow [facility] GLUCOSE UA (POCT) Negative Negative mg/dL [facility] HEMOGLOBIN/BLOOD UA (POCT) Negative Negative [facility] KETONE UA (POCT) Negative Negative mg/dL [facility] LEUKOCYTES UA (POCT) Negative Negative [facility] NITRITE UA (POCT) Negative Negative [facility] PH UA (POCT) 5.0 4.5 - 8.0 [facility] Protein Ql (U) Negative Negative mg/dL [facility] SPECIFIC GRAVITY UA (POCT) 1.020 1.005 - 1.030 [facility] UROBILINOGEN UA (POCT) 0.2 E.U./dL Kelly l E.U./dL [facility] CULTURE URINEon 11-14-2021 CULTURE URINE Culture Observations : GREATER THAN TWO ORGANISMS PRESENT. PLEASE RESUBMIT CLEAN CATCH MID-STREAM URINE IF CLINICALLY INDICATED. Normal [facility] Comment on above: Performed By: #### U AMIC #### [facility] [address] [address] [address] Barrington Gomez UA RANDOM W/MICROSCOPICon BACTERIA NONE SEEN Normal NONE SEEN [facility] Comment on above: Performed By: #### U AMIC #### [facility] [address] [address] [address] Barrington Gomez Bilirubin Ql (U) Negative Normal NEGATIVE [facility] Comment on above: Performed By: #### U AMIC #### [facility] [address] [address] [address] Barrington Gomez CAST NONE SEEN Normal NONE SEEN [facility] Comment on above: Performed By: #### U AMIC #### [facility] [address] [place] [address] Dr. Barrington Gomez Clarity (U) SL CLOUDY Abnormal CLEAR [facility] Comment on above: Performed By: #### U AMIC #### [facility] [address] [place] [address] Dr. Barrington Gomez Color (U) YELLOW Normal YELLOW [facility] Comment on above: Performed By: #### U AMIC #### [facility] [address] [address] [address] Barrington Gomez Crystals LM Nom (Urine sed) NONE SEEN Normal NONE SEEN [facility] Comment on above: Performed By: #### U AMIC #### [facility] [address] [address] [address] Barrington Gomez Epithelial cells LM Ql (Urine sed) RARE Normal NONE SEEN /RARE [facility] Comment on above: Performed By: #### U AMIC #### [facility] [address] [place] [address] Dr. Barrington Gomez Glucose Ql (U) Negative Normal NEGATIVE [facility] Comment on above: Performed By: #### U AMIC #### [facility] [address] [address] [address] Barrington Gomez Hemoglobin Ql (U) Negative Normal NEGATIVE [facility] Comment on above: Performed By: #### U AMIC #### [facility] [address] [address] [address] Barrington Gomez Ketones Ql (U) Negative Normal NEGATIVE [facility] Comment on above: Performed By: #### U AMIC #### [facility] [address] [address] [address] Barrington Gomez LEUKOCYTES Negative Normal NEGATIVE [facility] Comment on above: Performed By: #### U AMIC #### [facility] [address] [address] [address] Barrington Gomez MUCOUS TRACE Abnormal NONE SEEN [facility] Comment on above: Performed By: #### U AMIC #### [facility] [address] [address] [address] Barrington Gomez Nitrite Ql (U) Negative Normal NEGATIVE [facility] Comment on above: Performed By: #### U AMIC #### [facility] [address] [address] [address] Barrington oGmez pH (U) 5.5 [pH] Normal 5-[address] [facility] Comment on above: Performed By: #### U AMIC #### [facility] [address] [address] [address] Barrington Gomez RBC 0-2 Normal 0-2 [facility] Comment on above: Performed By: #### U AMIC #### [facility] [address] [address] [address] Barrington Gomez SPEC GRAVITY 1.025 Normal 1.005-<=1.[address] [facility] Comment on above: Performed By: #### U AMIC #### [facility] [address] [address] [address] Barrington Gomez UA PROTEIN Negative Normal NEGATIVE/ TRACE [facility] Comment on above: Performed By: #### U AMIC #### [facility] [address] [place] [address] Dr. Barrington Gomez Urobilinogen Qn (U) 0.2 {Antionette'U}/dL Normal 0.2 - 1. 0 [facility] Comment on above: Performed By: #### U AMIC #### [facility] [address] [address] [address] Barrington Gomez WBC NONE SEEN Normal NONE SEEN [facility] Comment on above: Performed By: #### U AMIC #### [facility] [address] [address] [address] Barrington Gomez CREATININEon 11-04-2021 Creatinine [Mass/Vol] 1.06 mg/dL Critically high 0.55-1.02 [facility] Comment on above: Performed By: #### G ENTR, CREA #### [facility] [address] [address] [address] Barrington Gomez EGFR-AF FRENCH >60 Normal >=60 [facility] Comment on above: Performed By: #### G ENTR, CREA #### [facility] [address] [address] [address] Barrington Gomez EGFR-NON AF FRENCH 52 mL/min/1.73m2 Critically low >=60 [facility] Comment on above: Performed By: #### G ENTR, CREA #### [facility] [address] [address] [address] Barrington Gomez GENTAMICIN RANDOMon 11-05-19 22 GENTAMICIN 5.2 ug/mL Normal [facility] Comment on above: Performed By: #### G ENTR, CREA #### [facility] [address] [address] [address] Barrington Gomez CULTURE URINEon 10-22-2021 CULTURE [...] Trimethoprim/Sulfamet hoxazole >=320 R F Normal [facility] Comment on above: Performed By: #### U [facility] #### [facility] [address] [address] [address] Barrington Gomez MRI FOOT LT WO CONon 25-2 022 MRI FOOT LT WO CON EXAM: [...] ligament seen on the edge of the [id number] for this study. There is no cystic [...] MADISYN CAAL Date: 2021-10-22 08:[address] [facility] UA RANDOM W/MICROSCOPICon BACTERIA SMALL Abnormal NONE SEEN [facility] Comment on above: Performed By: #### U AMIC #### [facility] [address] [place] [address] Dr. Barrington Gomez Bilirubin Ql (U) Negative Normal NEGATIVE [facility] Comment on above: Performed By: #### U AMIC #### [facility] [address] [place] [address] Dr. Barrington Gomez CAST SEEN Abnormal NONE SEEN [facility] Comment on above: Performed By: #### U AMIC #### [facility] [address] [place] [address] Dr. Barrington Gomez Clarity (U) CLEAR Normal CLEAR [facility] Comment on above: Performed By: #### U AMIC #### [facility] [address] [place] [address] Dr. Barrington Gomez Color (U) DK. ORANGE Abnormal YELLOW [facility] Comment on above: Performed By: #### U AMIC #### [facility] [address] [place] [address] Dr. Barrington Gomez Crystals LM Nom (Urine sed) NONE SEEN Normal NONE SEEN [facility] Comment on above: Performed By: #### U AMIC #### [facility] [address] [place] [address] Dr. Barrington Gomez Epithelial cells LM Ql (Urine sed) FEW Abnormal NONE SEEN /RARE [facility] Comment on above: Performed By: #### U AMIC #### [facility] [address] [address] [address] Barrington Gomez Glucose Ql (U) Negative Normal NEGATIVE [facility] Comment on above: Performed By: #### U AMIC #### [facility] [address] [address] [address] Barrington Gomez Hemoglobin Ql (U) Negative Normal NEGATIVE [facility] Comment on above: Performed By: #### U AMIC #### [facility] [address] [address] [address] Barrington Gomez HYALINE CAST FEW Normal [facility] Comment on above: Performed By: #### U AMIC #### [facility] [address] [place] [address] Dr. Barrington Gomez Ketones Ql (U) TRACE Abnormal NEGATIVE [facility] Comment on above: Performed By: #### U AMIC #### [facility] [address] [place] [address] Dr. Barrington Gomez LEUKOCYTES TRACE Abnormal NEGATIVE [facility] Comment on above: Performed By: #### U AMIC #### [facility] [address] [address] [address] Barrington Gomez MUCOUS NONE SEEN Normal NONE SEEN [facility] Comment on above: Performed By: #### U AMIC #### [facility] [address] [address] [address] Barrington Gomez Nitrite Ql (U) Negative Normal NEGATIVE [facility] Comment on above: Performed By: #### U AMIC #### [facility] [address] [address] [address] Barrington Gomez pH (U) 5.0 [pH] Normal 5-[address] [facility] Comment on above: Performed By: #### U AMIC #### [facility] [address] [place] [address] Dr. Barrington Gomez RBC 0-2 Normal 0-[address] [facility] Comment on above: Performed By: #### U AMIC #### [facility] [address] [address] [address] Barrington Gomez SPEC GRAVITY >=1.030 Abnormal 1.005-<=1.[address] [facility] Comment on above: Performed By: #### U AMIC #### [facility] [address] [address] [address] Barrington Gomez UA PROTEIN Negative Normal NEGATIVE/ TRACE [facility] Comment on above: Performed By: #### U AMIC #### [facility] [address] [address] [address] Barrington Gomez Urobilinogen Qn (U) 0.2 {Antionette'U}/dL Normal 0.2 - 1. [address] [facility] Comment on above: Performed By: #### U AMIC #### [facility] [address] [place] [address] Dr. Barrington Gomez WBC 5-10 Abnormal NONE SEEN [facility] Comment on above: Performed By: #### U AMIC #### [facility] [address] [address] [address] Barrington Gomez C-Reactive Proteinon 022 CRP IV <0.3 Normal [facility] Specialist Comment on above: Performed By: #### E SR, CRP, CBC #### [facility] [address], [place] [id number] Complete Blood Counton 09-22 Erythrocyte distribution width (RBC) [Ratio] 17.2 % High 11.0-15.0 [facility] Specialist Comment on above: Performed By: #### E SR, CRP, CBC #### [facility] [address], [place] [id number] Hematocrit (Bld) [Volume fraction] 41.5 % Normal 35.0-47.0 [facility] Specialist Comment on above: Performed By: #### E SR, CRP, CBC #### [facility] [address], [place] [id number] Hemoglobin (Bld) [Mass/Vol] 12.5 g/dL Normal 11.6-15.5 [facility] Specialist Comment on above: Performed By: #### E SR, CRP, CBC #### [facility] [address], [place] [id number] MCH (RBC) [Entitic mass] 24.7 pg Low 27.0-33.0 [facility] Comment on above: Performed By: #### E SR, CRP, CBC #### [facility] [address], [place] [id number] MCHC (RBC) [Mass/Vol] 30.1 g/dL Low 32.0-36.0 [facility] Comment on above: Performed By: #### E SR, CRP, CBC #### [facility] [address], [place] [id number] MCV (RBC) [Entitic vol] 82 fL Normal 80-100 [facility] Comment on above: Performed By: #### E SR, CRP, CBC #### [facility] [address], [place] [id number] Platelet mean volume (Bld) [Entitic vol] 10.40 fL Normal 7.50-12.50 [facility] Specialist Comment on above: Performed By: #### E SR, CRP, CBC #### [facility] [address], [place] [id number] Platelets (Bld) [#/Vol] 317 10*3/uL Normal 140-400 [facility] Comment on above: Performed By: #### E SR, CRP, CBC #### [facility] [address], [place] [id number] RBC (Bld) [#/Vol] 5.07 10*6/uL Normal 3.90-5.20 [facility] Specialist Comment on above: Performed By: #### E SR, CRP, CBC #### [facility] [address], [place] [id number] RDW-SD 50.8 fL High 37.0-50.0 [facility] Specialist Comment on above: Performed By: #### E SR, CRP, CBC #### [facility] [address], [place] [id number] WBC (Bld) [#/Vol] 9.2 10*3/uL Normal 3.8-11.0 [facility] Cartography/Mapping Technician Comment on above: Performed By: #### E SR, CRP, CBC #### [facility] [address], [place] [id number] RBC Sedimentation Rateon ESR (Bld) [Velocity] 10.00 mm/h Normal 0.00-30.00 Jesus mullins [place] [facility] Techn[facility] Comment on above: Performed By: #### E SR, CRP, CBC #### [facility] [address], [place] [id number] No Panel Information [facility] Vital Signs Date Time Vital Sign Value Performing Clinician Facility 07-11-2024 10:18-0500 Body height 162.56 cm [facility] 07-11-2024 10:18-0500 Body mass index (BMI) [Ratio] 39.1 kg/m2 [facility] 07-11-2024 10:18-0500 Body temperature 97.4 [degF] [facility] 07-11-2024 10:18-0500 Body weight 103.41 kg [facility] 07-11-2024 10:18-0500 Diastolic blood pressure 79 mm[Hg] [facility] 07-11-2024 10:18-0500 Heart rate 81 /min [facility] 07-11-2024 10:18-0500 Respiratory rate 20 /min [facility] 07-11-2024 10:18-0500 SaO2% (BldA) [Mass fraction] 97 % [facility] 07-11-2024 10:18-0500 Systolic blood pressure 126 mm[Hg] [facility] 06-21-2024 14:25-0500 Body mass index (BMI) [Ratio] 39.48 kg/m2 Enmanuel Burton [employer] Work Phone: [facility] 06-21-2024 14:25-0500 Body weight 104.33 kg Enmanuel Burton [employer] Work Phone: [facility] 06-21-2024 14:25-0500 Diastolic blood pressure 82 mm[Hg] Enmanuel Burton [employer] Work Phone: [facility] 06-21-2024 14:25-0500 Systolic blood pressure 140 mm[Hg] Enmanuel Burton DO Work Phone: [facility] 04-11-2024 10:55-0500 Body height 162.6 cm Dalia Ordoñez PA Work Phone: [facility] 04-11-2024 10:55-0500 Body mass index (BMI) [Ratio] 39.51 kg/m2 Dalia Ordoñez PA Work Phone: [facility] 04-11-2024 10:55-0500 Body weight 104.42 kg Dalia Ordoñez PA Work Phone: [facility] 04-11-2024 09:13-0500 Body height 162.6 cm Pmh 1 [facility] 04-11-2024 09:13-0500 Body mass index (BMI) [Ratio] 38.62 kg/m2 P[facility] 1 [facility] 04-11-2024 09:13-0500 Body weight 102.06 kg Pmh 1 [facility] 02-21-2024 08:56-0400 Body height 162.6 cm Preethi Ibarra APRN.[employer] Work Phone: [facility] 02-21-2024 08:56-0400 Body mass index (BMI) [Ratio] 39.07 kg/m2 Preethi Ibarra APRN.[employer] Work Phone: [facility] 02-21-2024 08:56-0400 Body temperature 97.7 [degF] Preethi Ibarra APRN.JAVA DES[employer] Work Phone: [facility] 02-21-2024 08:56-0400 Body weight 103.3 kg Preethi Ibarra APRN.JAVA DES[employer] Work Phone: [facility] 02-21-2024 08:56-0400 Diastolic blood pressure 91 mm[Hg] Preethi Ibarra APRN.JAVA DES[employer] Work Phone: [facility] 02-21-2024 08:56-0400 Heart rate 82 /min Preethi Ibarra APRN.JAVA DES[employer] Work Phone: [facility] 02-21-2024 08:56-0400 Respiratory rate 16 /min Preethi Ibarra APRN.JAVA DESIGN[employer] Work Phone: [facility] 02-21-2024 08:56-0400 SaO2% (BldA) [Mass fraction] 100 % Preethi Ibarra APRN.JAVA DESIGN[employer] Work Phone: [facility] 02-21-2024 08:56-0400 Systolic blood pressure 150 mm[Hg] Preethi Ibarra APRN.JAVA DESIGNER Work Phone: [facility] 02-07-2024 11:10-0400 Body height 162.56 cm MD Ricardo Hooper Work Phone: [facility] 02-07-2024 11:10-0400 Body mass index (BMI) [Ratio] 38.7 kg/m2 MD Ricardo Hooper Work Phone: [facility] 02-07-2024 11:10-0400 Body temperature 96.1 [degF] MD Ricardo Hooper Work Phone: [facility] 02-07-2024 11:10-0400 Body weight 102.28 kg MD Ricardo Hooper Work Phone: [facility] 02-07-2024 11:10-0400 Diastolic blood pressure 90 mm[Hg] MD Ricardo Hooper Work Phone: [facility] 02-07-2024 11:10-0400 Heart rate 83 /min MD Ricardo Hooper Work Phone: [facility] 02-07-2024 11:10-0400 Respiratory rate 20 /min MD Ricardo Hooper Work Phone: [facility] 02-07-2024 11:10-0400 SaO2% (BldA) [Mass fraction] 98 % MD Ricardo Hooper Work Phone: [facility] 02-07-2024 11:10-0400 Systolic blood pressure 148 mm[Hg] MD Ricardo Hooper Work Phone: [facility] 02-02-2024 08:32-0400 Body height 162.6 cm Jr. Stepanic DO Work Phone: [facility] 02-02-2024 08:32-0400 Body mass index (BMI) [Ratio] 38.45 kg/m2 Jr. Stepanic DO Work Phone: [facility] 02-02-2024 08:32-0400 Body weight 101.61 kg Jr. Stepanic DO Work Phone: [facility] 08-30-2023 13:07-0400 Body height 162.6 cm Ernie Ayers MD Work Phone: [facility] 08-30-2023 13:07-0400 Body weight 111 kg Ernie Ayers MD Work Phone: [facility] 08-30-2023 13:07-0400 Diastolic blood pressure 78 mm[Hg] Ernie Ayers MD Work Phone: [facility] 08-30-2023 13:07-0400 Heart rate 88 /min Ernie Ayers MD Work Phone: [facility] 08-30-2023 13:07-0400 SaO2% (BldA) [Mass fraction] 100 % Ernie Ayers MD Work Phone: [facility] 08-30-2023 13:07-0400 Systolic blood pressure 117 mm[Hg] Ernie Ayers MD Work Phone: [facility] 08-24-2023 09:18-0400 Body height 162.6 cm Dalia NOBLE Work Phone: [facility] 08-24-2023 09:18-0400 Body mass index (BMI) [Ratio] 42.57 kg/m2 Dalia NOBLE Work Phone: [facility] 08-24-2023 09:18-0400 Body weight 112.49 kg Dalia NOBLE Work Phone: [facility] 08-24-2023 09:18-0400 Diastolic blood pressure 105 mm[Hg] Dalia NOBLE Work Phone: [facility] 08-24-2023 09:18-0400 Heart rate 92 /min Dalia Ward PA Work Phone: [facility] 08-24-2023 09:18-0400 Respiratory rate 18 /min Dalia Ward PA Work Phone: [facility] 08-24-2023 09:18-0400 SaO2% (BldA) [Mass fraction] 99 % Dalia Ward PA Work Phone: [facility] 08-24-2023 09:18-0400 Systolic blood pressure 151 mm[Hg] Dalia Ward PA Work Phone: [facility] 08-23-2023 10:00-0400 Body height 162.6 cm Jose Bryant MD Work Phone: [facility] 08-23-2023 10:00-0400 Body temperature 97.9 [degF] Jose Bryant MD Work Phone: [facility] 08-23-2023 10:00-0400 Body weight 112.4 kg Jose Bryant MD Work Phone: [facility] 08-23-2023 10:00-0400 Diastolic blood pressure 92 mm[Hg] Jose Bryant MD Work Phone: [facility] 08-23-2023 10:00-0400 Heart rate 73 /min Jose Bryant MD Work Phone: [facility] 08-23-2023 10:00-0400 Respiratory rate 16 /min Jose Bryant MD Work Phone: [facility] 08-23-2023 10:00-0400 SaO2% (BldA) [Mass fraction] 99 % Jose Bryant MD Work Phone: [facility] 08-23-2023 10:00-0400 Systolic blood pressure 152 mm[Hg] Jose Bryant MD Work Phone: [facility] 07-21-2023 13:45-0500 Body height 162.6 cm Jenni Cardenas MD Work Phone: [facility] 07-21-2023 13:45-0500 Body temperature 97.81 [degF] Jenni Cardenas MD Work Phone: [facility] 07-21-2023 13:45-0500 Body weight 115.21 kg Jenni Cardenas MD Work Phone: [facility] 07-21-2023 13:45-0500 Diastolic blood pressure 90 mm[Hg] Jenni Cardenas MD Work Phone: [facility] 07-21-2023 13:45-0500 Heart rate 85 /min Jenni Cardenas MD Work Phone: [facility] 07-21-2023 13:45-0500 Systolic blood pressure 150 mm[Hg] Jenni Cardenas MD Work Phone: [facility] 07-12-2023 09:18-0500 Body height 162.6 cm Jr. Stepanic DO Work Phone: [facility] 07-12-2023 09:18-0500 Body mass index (BMI) [Ratio] 42.91 kg/m2 Jr. Stepanic DO Work Phone: [facility] 07-12-2023 09:18-0500 Body weight 113.4 kg Jr. Stepanic DO Work Phone: [facility] 10-10-2022 15:14-0400 Body temperature 97.88 [degF] Rocael Wayne [facility] 10-10-2022 15:14-0400 Diastolic blood pressure 92 mm[Hg] Rocael Wayne [facility] 10-10-2022 15:14-0400 Heart rate 89 /min Rocael Wayne [facility] 10-10-2022 15:14-0400 Respiratory rate 16 /min Rocael Wayne [facility] 10-10-2022 15:14-0400 SaO2% (BldA) [Mass fraction] 99 % Rocael Wayne [facility] 10-10-2022 15:14-0400 Systolic blood pressure 145 mm[Hg] Rocael Wayne [facility] 10-07-2022 10:04-0400 Body height 162.6 cm Jose Bryant MD Work Phone: [facility] 10-07-2022 10:04-0400 Body temperature 97.39 [degF] Jose Bryant MD Work Phone: [facility] 10-07-2022 10:04-0400 Body weight 108.41 kg Jose Bryant MD Work Phone: [facility] 10-07-2022 10:04-0400 Diastolic blood pressure 85 mm[Hg] Jose Bryant MD Work Phone: [facility] 10-07-2022 10:04-0400 Heart rate 83 /min Jose Bryant MD Work Phone: [facility] 10-07-2022 10:04-0400 Respiratory rate 16 /min Jose Bryant MD Work Phone: [facility] 10-07-2022 10:04-0400 SaO2% (BldA) [Mass fraction] 98 % Jose Bryant MD Work Phone: [facility] 10-07-2022 10:04-0400 Systolic blood pressure 148 mm[Hg] Jose Bryant MD Work Phone: [facility] 06-10-2022 11:00-0500 Body height 162.6 cm Jose Bryant MD Work Phone: [facility] 06-10-2022 11:00-0500 Body temperature 97.2 [degF] Jose Bryant MD Work Phone: [facility] 06-10-2022 11:00-0500 Body weight 105.87 kg Jose Bryant MD Work Phone: [facility] 06-10-2022 11:00-0500 Diastolic blood pressure 87 mm[Hg] Jose Bryant MD Work Phone: [facility] 06-10-2022 11:00-0500 Heart rate 73 /min Jose Bryant MD Work Phone: [facility] 06-10-2022 11:00-0500 Respiratory rate 16 /min Jose Bryant MD Work Phone: [facility] 06-10-2022 11:00-0500 SaO2% (BldA) [Mass fraction] 98 % Jose Bryant MD Work Phone: [facility] 06-10-2022 11:00-0500 Systolic blood pressure 152 mm[Hg] Jose Bryant MD Work Phone: [facility] 02-17-2022 11:36-0400 Body temperature 98.4 [degF] Quique Mojica MD [facility] Phone[facility] [employer] 02-17-2022 11:36-0400 Diastolic blood pressure 56 mm[Hg] Quique Mojica MD Work Phone: [facility] [employer] 02-17-2022 11:36-0400 Heart rate 96 /min Quique Mojica MD Work Phone: [facility] 02-17-2022 11:36-0400 Respiratory rate 16 /min Quique Mojica MD Work Phone: [facility] 02-17-2022 11:36-0400 SaO2% (BldA) [Mass fraction] 93 % Quique Mojica MD Work Phone: [facility] [employer] 02-17-2022 11:36-0400 Systolic blood pressure 117 mm[Hg] Quique Mojica MD Work Phone: [facility] [employer] 02-16-2022 10:32-0400 Body height 162.6 cm Quique Mojica MD Work Phone: [facility] [employer] 02-16-2022 10:32-0400 Body mass index (BMI) [Ratio] 40.34 kg/m2 Quique Mojica MD Work Phone: [facility] 02-16-2022 10:32-0400 Body weight 106.59 kg Quique Mojica MD Work Phone: [facility] [employer] 01-26-2022 07:54-0400 Body height 162.6 cm Sta 1 [facility] [employer] 01-26-2022 07:54-0400 Body mass index (BMI) [Ratio] 40.34 kg/m2 Sta 1 [facility] [employer] 01-26-2022 07:54-0400 Body temperature 97.5 [degF] Sta 1 [facility] 01-26-2022 07:54-0400 Body weight 106.59 kg Sta 1 [facility] [employer] 01-26-2022 07:54-0400 Diastolic blood pressure 84 mm[Hg] Sta 1 [facility] 01-26-2022 07:54-0400 Heart rate 85 /min Sta 1 [facility] [employer] 01-26-2022 07:54-0400 Respiratory rate 16 /min Sta 1 [facility] [employer] 01-26-2022 07:54-0400 SaO2% (BldA) [Mass fraction] 98 % Sta 1 [facility] [employer] 01-26-2022 07:54-0400 Systolic blood pressure 133 mm[Hg] Sta 1 [facility] [employer] 11-20-2021 09:35-0400 Body temperature 97.3 [degF] Dallas Lombardo MD Work Phone: [facility] 11-20-2021 09:35-0400 Body weight 104.33 kg Dallas Lombardo MD Work Phone: [facility] 11-20-2021 09:35-0400 Diastolic blood pressure 78 mm[Hg] Dallas Lombardo MD Work Phone: [facility] 11-20-2021 09:35-0400 Heart rate 95 /min Dallas Lombardo MD Work Phone: [facility] 11-20-2021 09:35-0400 Systolic blood pressure 120 mm[Hg] Dallas Lombardo MD Work Phone: [facility] Encounters Encounter Date Encounter Type Care Provider Facility Start: 07-25-2024 End: 07-25-2024 Bamboo flowsheet Dalia NOBLE Work Phone: [facility] Start: 07-25-2024 End: 07-25-2024 Bamboo flowsheet Dalia NOBLE Work Phone: [facility] Start: 07-25-2024 End: 07-25-2024 ambulatory DALIA ORDOÑEZ Not Available Start: 07-25-2024 End: 07-25-2024 Postop follow up visit related to original px Dalia NOBLE Work Phone: [facility] Comment on above: S/P total left hip a rthroplasty (Primary Dx) Start: 07-11-2024 End: 07-11-[address] [facility] Work Phone: Start: 07-11-2024 End: 07-11-2024 Patient encounter procedure [facility] Work Phone: Start: 06-21-2024 End: 06-21-2024 Office outpatient visit 15 minutes Enmanuel Burton DO Work Phone: [facility] Comment on above: Vaginal atrophy (Juju lacie Dx); Postmenopausal HRT (hormone replacement therapy) Start: 06-21-2024 End: 06-21-2024 ambulatory ENMANUEL BURTON Not Available Start: 06-21-2024 End: 06-21-2024 Bamboo flowsheet Enmanuel Burton DO Work Phone: [facility] Start: 06-21-2024 End: 06-21-2024 Bamboo flowsheet Enmanuel Burton DO Work Phone: [facility] Start: 06-20-2024 End: 06-20-2024 Bamboo flowsheet Gracie Kelbley UR COORDINATOR [facility] Start: 06-20-2024 End: 06-20-2024 Bamboo flowsheet Gracie Kelbley UR COORDINATOR [facility] Start: 06-20-2024 End: 06-20-2024 Telephone encounter Enmanuel Burton DO Work Phone: [facility] Start: 06-20-2024 End: 06-20-2024 Preprocedural examination done Gracie Kelbley UR COORDINATOR [facility] Start: 06-20-2024 End: 06-20-2024 ambulatory Gracie Kelbley UR COORDINATOR [facility] Comment on above: Acute postoperative pain of left hip (Primary Dx); Difficulty walking; Pre-op examination Start: 06-16-2024 End: 06-16-2024 Bamboo flowsheet Gracie Kelbley UR COORDINATOR [facility] Start: 06-16-2024 End: 06-16-2024 Bamboo flowsheet Gracie Kelbley UR COORDINATOR [facility] Start: 06-16-2024 End: 06-16-2024 Preprocedural examination done Gracie Kelbley UR COORDINATOR [facility] Start: 06-16-2024 End: 06-16-2024 ambulatory Gracie Kelbley UR COORDINATOR [facility] Comment on above: Acute postoperative pain of left hip (Primary Dx); Difficulty walking; Pre-op examination Start: 06-14-2024 End: 06-14-2024 Bamboo flowsheet Gracie Kelbley UR COORDINATOR [facility] Start: 06-14-2024 End: 06-14-2024 Bamboo flowsheet Gracie Kelbley UR COORDINATOR [facility] Start: 06-14-2024 End: 06-14-2024 ambulatory Gracie Kelbley UR COORDINATOR [facility] Comment on above: Acute postoperative pain of left hip (Primary Dx); Difficulty walking Start: 06-13-2024 End: 06-13-2024 Bamboo flowsheet Dalia Ordoñez PA Work Phone: [facility] Start: 06-13-2024 End: 06-13-2024 Bamboo flowsheet Dalia Ordoñez PA Work Phone: [facility] Start: 06-13-2024 End: 06-13-2024 Postop follow up visit related to original px Dalia Ordoñez PA Work Phone: [facility] Comment on above: S/P total left hip a rthroplasty; Acute hip pain, left Start: 06-13-2024 End: 06-13-2024 ambulatory DALIA J YARITZA Not Available Start: 06-08-2024 End: 06-08-2024 Bamboo flowsheet Gracie Crowley UR COORDINATOR [facility] Start: 06-08-2024 End: 06-08-2024 Bamboo flowsheet Gracie Crowley UR COORDINATOR [facility] Start: 06-08-2024 End: 06-08-2024 ambulatory Gracie Crowley UR COORDINATOR [facility] Comment on above: Acute postoperative pain of left hip (Primary Dx); Difficulty walking; Pre-op examination Start: 06-08-2024 End: 06-08-2024 Preprocedural examination done Gracie Crowley UR COORDINATOR [facility] Start: 06-05-2024 End: 06-05-2024 Telephone encounter Tano Valerio UR COORDINATOR [facility] Comment on above: CX PT today Start: 05-22-2024 End: 05-23-2024 ambulatory Philip Estrada PT Work Phone: [facility] Comment on above: Acute postoperative pain of left hip (Primary Dx); Difficulty walking Start: 05-22-2024 End: 05-22-2024 Bamboo flowsheet Philip Estrada PT Work Phone: [facility] Start: 05-22-2024 End: 05-22-2024 Bamboo flowsheet Philip Estrada PT Work Phone: [facility] Start: 05-18-2024 End: 05-18-2024 ambulatory CARMEN RODRIGUEZ Not Available Start: 05-17-2024 End: 05-17-2024 Clinical Support Carmen Rodriguez PT [facility] Comment on above: Acute postoperative pain of left hip (Primary Dx); Difficulty walking Start: 05-16-2024 End: 05-16-2024 Bamboo flowsheet Dalia Ordoñez PA Work Phone: [facility] Start: 05-16-2024 End: 05-16-2024 Bamboo flowsheet Dalia Ordoñez PA Work Phone: [facility] Start: 05-16-2024 End: 05-16-2024 Postop follow up visit related to original px Dalia Ordoñez PA Work Phone: [facility] Comment on above: S/P total left hip a rthroplasty (Primary Dx) Start: 05-16-2024 End: 05-16-2024 ambulatory DALIA ORDOÑEZ Not Available Start: 05-12-2024 End: 05-12-2024 ambulatory CARMEN RODRIGUEZ Not Available Start: 05-11-2024 End: 05-11-2024 Clinical Support Carmen Rodriguez PT [facility] Comment on above: Acute postoperative pain of left hip (Primary Dx); Difficulty walking Start: 05-09-2024 End: 05-09-2024 ambulatory CARMEN RODRIGUEZ Not Available Start: 05-08-2024 End: 05-08-2024 Clinical Support Carmen Rodriguez PT [facility] Comment on above: Acute postoperative pain of left hip (Primary Dx); Difficulty walking Start: 05-05-2024 End: 05-05-2024 ambulatory CARMEN RODRIGUEZ Not Available Start: 05-04-2024 End: 05-04-2024 Patient encounter procedure Carmen Rodriguez PT [facility] Comment on above: Difficulty walking ( Primary Dx); Acute postoperative pain of left hip Start: 05-02-2024 End: 05-03-[address] [facility] Start: 05-01-2024 End: 05-01-2024 Nirali Fortune NP Work Phone: [facility] Comment on above: Post-operative pain (Primary Dx) Start: 04-24-2024 End: 04-24-2024 ambulatory [place] [facility] Start: 04-13-2024 End: 04-13-2024 Admission to same day surgery center Dallas Lombardo MD Work Phone: Urology Comment on above: Up coming surgery Start: 04-13-2024 End: 04-13-2024 ambulatory Dallas Lombardo MD Work Phone: Urology Start: 04-11-2024 End: 04-11-2024 Bamboo flowsheet Dalia NOBLE Work Phone: [facility] Start: 04-11-2024 End: 04-11-2024 Bamboo flowsheet Dalia NOBLE Work Phone: [facility] Start: 04-11-2024 End: 04-11-2024 ambulatory RICARDO M Fely [facility] Start: 04-11-2024 End: 04-11-2024 Patient encounter procedure Dalia NOBLE Work Phone: [facility] Comment on above: Pre-op examination ( Primary Dx); Primary osteoarthritis of left hip Preop examination (P rimary Dx); Hypertension, unspecified type; Osteoarthritis of left hip, unspecified osteoarthritis type; Urinary frequency Start: 04-11-2024 End: 04-11-2024 Preprocedural examination done Dalia NOBLE Work Phone: [facility] Start: 04-11-2024 End: 04-11-[address] [facility] Start: 04-11-2024 Encounter for other preprocedural examination DALIA WARD [facility] Start: 02-24-2024 End: 02-24-2024 ambulatory MD Ricardo Hooper Work Phone: [facility] Work Phone: Start: 02-24-2024 End: 02-24-2024 Patient encounter procedure MD Ricardo Hooper Work Phone: [facility] Work Phone: Start: 02-23-2024 End: 02-23-2024 Telephone encounter Charissa DICKSON Hematology/Oncology Start: 02-21-2024 End: 02-23-2024 Telephone encounter Preethi Ibarra APRN.JAVA DESIGNER Work Phone: [facility] Comment on above: Release Of Medical R ecords Start: 02-21-2024 End: 02-22-2024 ambulatory Preethi Ibarra RESIDENCE COUNSELOR.JAVA DESIGNER Work Phone: Hematology/Oncology Comment on above: Iron deficiency anem ia secondary to inadequate dietary iron intake (Primary Dx); Lung nodules CT Scan Start: 02-21-2024 End: 02-21-2024 Patient encounter procedure Preethi Ibarra APRN.JAVA DESIGNER Work Phone: Hematology/Oncology Start: 02-17-2024 End: 02-17-2024 ambulatory RICARDO HOOPER Facility:[facility] Start: 02-09-2024 End: 02-09-2024 Bamboo flowsheet Dalia NOBLE Work Phone: [facility] Start: 02-09-2024 End: 02-09-2024 Bamboo flowsheet Dalia NOBLE Work Phone: [facility] Start: 02-09-2024 End: 02-09-2024 ambulatory DALIA ORDOÑEZ Not Available Start: 02-09-2024 End: 02-09-2024 Office outpatient visit 15 minutes Dalia NOBLE Work Phone: [facility] Comment on above: Acute pain of left k nee (Primary Dx); History of total left knee replacement Start: 02-07-2024 End: 02-07-2024 Patient encounter procedure MD Ricardo Hooper Work Phone: [facility] Work Phone: Start: 02-02-2024 End: 02-02-2024 Ubaldo Pedro DO Work Phone: [facility] Start: 02-02-2024 End: 02-02-2024 Bamboo flowsheet . Sailma Barba Stepanic DO Work Phone: [facility] Start: 02-02-2024 End: 02-02-2024 Office outpatient visit 25 minutes JrLalitha Barba Stepanic DO Work Phone: [facility] Comment on above: Primary osteoarthrit is of left hip (Primary Dx); Acute hip pain, left Start: 02-02-2024 End: 02-02-2024 ambulatory JR. SALIMA PEDRO Not Available Start: 01-05-2024 End: 01-05-2024 ambulatory ENMANUEL BURTON Not Available Start: 12-30-2023 End: 12-30-2023 ambulatory DALIA ORDOÑEZ Not Available Start: 11-09-2023 End: 11-09-2023 ambulatory DALIA ORDOÑEZ Not Available Start: 10-14-2023 Telephone encounter Jenni martinez MD Work Phone: Infectious Disease Comment on above: Patient Question Start: 10-08-2023 End: 10-08-2023 ambulatory ENMANUEL FERREIRA [facility] Start: 10-04-2023 End: 10-04-2023 Telephone encounter Becki Villalobos CNA [facility] Start: 10-04-2023 End: 10-04-2023 ambulatory JR. SALIMA PEDRO Not Available Start: 08-30-2023 End: 08-30-2023 ambulatory JENNI CARDENAS Facility:[facility] Start: 08-30-2023 End: 08-30-2023 Patient encounter procedure Ernie Ayers MD Work Phone: Allergy Comment on above: Penicillin allergy Start: 08-24-2023 End: 08-24-2023 ambulatory DALIA WARD [facility] Start: 08-24-2023 End: 08-24-2023 Office outpatient visit 25 minutes Samantha Ward RESIDENCE COUNSELOR-JAVA DESIGNER Work Phone: [facility] Comment on above: Disorder of sacrum ( Primary Dx) Start: 08-23-2023 End: 08-23-2023 ambulatory RICARDO HOOPER Facility:[facility] Start: 08-23-2023 End: 08-23-2023 Office outpatient visit 15 minutes Jose Bryant MD Work Phone: Hematology/Oncology Comment on above: Iron deficiency anem ia secondary to inadequate dietary iron intake (Primary Dx) Start: 08-16-2023 End: 08-16-2023 ambulatory RICARDO HOOPER Facility:[facility] Start: 08-09-2023 End: 08-09-2023 ambulatory SALIMA CALDERON Not Available Start: 08-05-2023 End: 08-05-2023 ambulatory JENNI CARDENAS Facility:[facility] Start: 08-05-2023 End: 08-05-2023 Subsequent hospital visit by physician Arrival Time Radiology Work Phone: Radiology [facility] Comment on above: Generalized abdomina l pain [R10.84] Start: 07-21-2023 End: 07-21-2023 ambulatory DALLAS P VASAVADA Facility:[facility] Start: 07-21-2023 End: 07-21-2023 Patient encounter procedure Jenni Cardenas MD Work Phone: Infectious Disease Comment on above: Generalized abdomina l pain (Primary Dx); Recurrent UTI; Penicillin allergy Start: 07-12-2023 ambulatory Jose reagan MD Work Phone: [facility] Start: 07-12-2023 Chart abstracting Jr. Salima Pedro DO Work Phone: [facility] Start: 07-12-2023 Patient encounter procedure Jose Bryant MD Work Phone: Hematology/Oncology Comment on above: Next appointment Start: 07-12-2023 Telephone encounter Patricia Murrell Hematology/Oncology Comment on above: Appointment Start: 07-12-2023 End: 07-12-2023 Office outpatient visit 25 minutes Jr. Salima Pedro DO Work Phone: [facility] Comment on above: Primary osteoarthrit is of left hip (Primary Dx); Limb weakness; Numbness; Paresthesia; Pain in extremity, unspecified extremity Start: 07-08-2023 End: 07-08-2023 ambulatory JOSE BRYANT Facility:[facility] Start: 07-05-2023 End: 07-05-2023 ambulatory RICARDO HOOPER Facility:[facility] Start: 06-24-2023 End: 06-24-2023 ambulatory DALLAS YOUNGRANDY Facility:[facility] Start: 04-01-2023 ambulatory Jose reagan MD Work Phone: Hematology/Oncology Comment on above: Cat Scan Start: 03-31-2023 End: 03-31-2023 ambulatory RICARDO HOOPER Facility:[facility] Start: 03-31-2023 End: 03-31-2023 Subsequent hospital visit by physician Arrival Time Radiology Work Phone: Radiology [facility] Comment on above: Lung nodules [R91.8] Start: 02-22-2023 End: 02-22-2023 ambulatory Ricardo Hooper Facility:[facility] Start: 02-22-2023 End: 02-22-2023 ambulatory MD Ricardo Hooper Work Phone: [facility] Work Phone: Start: 02-22-2023 End: 02-22-2023 Patient encounter procedure MD Ricardo Hooper Work Phone: [facility] Work Phone: Start: 01-11-2023 End: 01-12-2023 Evaluation and management of inpatient [facility] Start: 12-21-2022 End: 12-26-2022 ambulatory [facility] Start: 10-10-2022 End: 10-10-2022 Emergency department patient visit Rocael Wayne Facility:[facility] Start: 10-10-2022 End: 10-10-2022 Emergency department patient visit Rocael Wayne [facility] Start: 10-08-2022 End: 10-08-2022 ambulatory LEOBARDO SAAVEDRA . Facility:[facility] Start: 10-07-2022 End: 10-07-2022 Office outpatient visit [...] DR RICARDO HOOPER . 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] Start: 02-18-2022 Telephone encounter Patricia Murrell Hematology/Oncology Comment on above: Appointment; Results Start: 02-16-2022 End: 02-17-2022 ambulatory QUIQUE MOJICA [facility] Start: 02-16-2022 End: 02-17-2022 Subsequent hospital visit by physician Quique Mojica MD Work Phone: [facility] Comment on above: Lumbar stenosis with neurogenic claudication (Primary Dx) Start: 01-26-2022 End: 01-31-2022 ambulatory QUIQUE MOJICA [facility] Start: 01-26-2022 End: 01-30-2022 Subsequent hospital visit by physician Brandon Valladares Rm 1 [facility] PRE-ADMIT [facility] Start: 12-29-2021 End: [...] Date Procedure Procedure Detail Performing Clinician Start: 06-13-2024 Radex hip unilateral with pelvis 2-3 views Dalia NOBLE Work Phone: Start: 02-24-2024 End: 02-24-2024 Screening mammography of bilateral breasts MD Ricardo Hooper Work Phone: Start: 02-02-2024 Radex hip unilateral with pelvis 2-3 views Jr. Salima Clarosanic DO Work Phone: Start: 08-30-2023 ALLERGEN SKIN TEST-I NHALENT 40 Ernie Ayers MD Work Phone: Start: 08-30-2023 ALLERGEN SKIN TEST-PENICILLIN Ernie Ayers MD Work Phone: Start: 08-30-2023 Ingestion challenge test initial 120 minutes Ernie Ayers MD Work Phone: Start: 08-05-2023 Ct abdomen & pelvis w/o contrast material Jenni Cardenas MD Work Phone: Start: 03-31-2023 Ct thorax w/contrast material Jose Bryant MD Work Phone: Start: 03-31-2023 Blood count complete auto&auto difrntl wbc Jose Bryant MD Work Phone: Start: 02-22-2023 End: 02-22-2023 Screening mammography of bilateral breasts MD Ricardo Hooper Work Phone: Start: 04-06-2022 Ct thorax w/contrast material Jose Bryant MD Work Phone: Start: 02-17-2022 Basic metabolic pane [...] Td Vaccines (2 - Td or Tdap) [employer] [facility] Start: 07-29-2030 DTaP/Tdap/Td vaccine (2 - Td or Tdap) DTaP/Tdap/Td vaccine (2 - Td or Tdap) [facility] Start: 07-29-2030 Urine microalbumin profile [facility] Start: 04-11-2027 Diabetes Screening Diabetes Screening [facility] Start: 02-16-2027 Diabetes Screening Diabetes Screening [facility] Start: 08-15-2026 Diabetes Screening Diabetes Screening [facility] Start: 07-05-2026 Diabetes Screening Diabetes Screening [facility] Start: 03-31-2026 Diabetes Screening Diabetes Screening [facility] Start: 01-09-2026 End: 01-09-2026 Patient encounter procedure 01/09/2026 10:00 AM EDT Office Visit [facility] [address] [place] [address] Enmanuel Burton, DO [address] [place] [address] [facility] Start: 10-07-2025 DIABETES SCREEN DIABETES SCREEN [facility] Start: 07-25-2025 End: 07-25-2025 Patient encounter procedure 07/25/2025 11:00 AM EST Office Visit [facility] [address] [place] [id number] Dalia Ordoñez PA [address] [facility] [address] [place] [address] [facility] Start: 06-10-2025 DIABETES SCREEN DIABETES SCREEN [facility] Start: 04-11-2025 Adult BMI Screening Adult BMI Screening [facility] Start: 04-11-2025 Tobacco Screening Tobacco Screening [facility] Start: 04-09-2025 DIABETES SCREEN DIABETES SCREEN [facility] Start: 02-23-2025 Screening for malignant neoplasm of breast [facility] Start: 12-18-2024 Lipid 1996 panel - Serum or Plasma Lipid Screening [facility] Start: 12-18-2024 Lipid panel Lipid Screening [facility] Start: 12-18-2024 LIPID SCREEN LIPID SCREEN [facility] Start: 09-11-2024 End: 09-11-2024 Follow-up encounter Hematology/Oncology Comment on above: 6 month follow up Start: 09-04-2024 End: 09-04-2024 Patient encounter procedure [facility] Comment on above: [address] CHEST W IV CON an d LABS Start: 08-23-2024 Adult BMI Screening Adult BMI Screening [facility] Start: 08-23-2024 Tobacco Screening Tobacco Screening [facility] Start: 08-20-2024 End: 11-19-2024 CBC W Auto Differential panel - Blood COMPLETE BLOOD COUNT AND DIFFERENTIAL Lab Routine Iron deficiency anemia secondary to inadequate dietary iron intake Lung nodules Expected: 08/20/2024, Expires: 11/19/2024 [facility] Work Phone: Comment on above: Expected: 08/20/2024, Expires: Start: 08-20-2024 End: 11-19-2024 Cobalamin (Vitamin B12) [Mass/volume] in Serum or Plasma VITAMIN B12 Lab Routine Iron deficiency anemia secondary to inadequate dietary iron intake Lung nodules Expected: 08/20/2024, Expires: 11/19/2024 [facility] Comment on above: Expected: 08/20/2024, Expires: Start: 08-20-2024 End: 11-19-2024 Comprehensive metabolic 2000 panel - Serum or Plasma COMPREHENSIVE METABOLIC PANEL Lab Routine Iron deficiency anemia secondary to inadequate dietary iron intake Lung nodules Expected: 08/20/2024, Expires: 11/19/2024 [facility] Comment on above: Expected: 08/20/2024, Expires: Start: 08-20-2024 End: 11-19-2024 Ferritin [Mass/volume] in Serum or Plasma FERRITIN Lab Routine Iron deficiency anemia secondary to inadequate dietary iron intake Lung nodules Expected: 08/20/2024, Expires: 11/19/2024 [facility] Comment on above: Expected: 08/20/2024, Expires: Start: 08-20-2024 End: 11-19-2024 FLOW CYTOMETRY FOR LEUKEMIA/LYMPHOMA (FCLL) FLOW CYTOMETRY FOR LEUKEMIA/LYMPHOMA (FCLL) Lab Routine Iron deficiency anemia secondary to inadequate dietary iron intake Lung nodules Expected: 08/20/2024, Expires: 11/19/2024 [facility] Comment on above: Expected: 08/20/2024, Expires: Start: 08-20-2024 End: 11-19-2024 Folate [Mass/volume] in Serum or Plasma FOLATE, SERUM Lab Routine Iron deficiency anemia secondary to inadequate dietary iron intake Lung nodules Expected: 08/20/2024, Expires: 11/19/2024 [facility] Comment on above: Expected: 08/20/2024, Expires: Start: 08-20-2024 End: 11-19-2024 Iron and Iron binding capacity panel - Serum or Plasma IRON AND TIBC Lab Routine Iron deficiency anemia secondary to inadequate dietary iron intake Lung nodules Expected: 08/20/2024, Expires: 11/19/2024 [facility] Comment on above: Expected: 08/20/2024, Expires: Start: 07-25-2024 End: 07-25-2024 Patient encounter procedure 07/25/2024 9:00 AM EST Office Visit [facility] [address] [place] [phone] Dalia Ordoñez, PA [address] [facility] [address] [place] [address] [facility] Start: 07-10-2024 DIABETES SCREEN DIABETES SCREEN [facility] Start: 07-06-2024 End: 07-06-2024 ambulatory 07/06/2024 8:30 AM EST Treatment [facility] [address] [facility] [address] [place] [address] Gracie Crowley, UR COORDINATOR [facility] Start: 07-04-2024 End: 07-04-2024 ambulatory 07/04/2024 8:30 AM EST Treatment [facility] [address] [facility] [address] [place] [address] Philip Estrada, PT [address] [facility] [address] [place] [address] [facility] Start: 06-29-2024 End: 06-29-2024 ambulatory 06/29/2024 8:30 AM EST Treatment [facility] [address] [facility] [address] [place] [address] Gracie Crowley, UR COORDINATOR [facility] Start: 06-27-2024 End: 06-27-2024 ambulatory 06/27/2024 8:30 AM EST Treatment [facility] [address] [address] [place] [address] Tano Valerio, UR COORDINATOR [facility] Start: 06-22-2024 End: 06-22-2024 ambulatory 06/22/2024 8:30 AM EST Treatment [facility] [address] [facility] [address] [place] [address] Philip Estrada, PT [address] [facility] [address] [place] [address] [facility] Start: 06-21-2024 End: 06-21-2024 Patient encounter procedure [facility] Comment on above: Arrived Start: 06-20-2024 End: 06-20-2024 ambulatory [facility] Comment on above: Arrived Start: 06-16-2024 End: 06-16-2024 ambulatory [facility] Comment on above: Arrived Start: 06-14-2024 End: 06-14-2024 ambulatory [facility] Comment on above: Arrived Start: 06-13-2024 End: 06-13-2024 Patient encounter procedure [facility] Comment on above: S/P total left hip arthroplasty; Acute hip pain, left Start: 06-08-2024 End: 06-08-2024 ambulatory 06/08/2024 8:30 AM EST Treatment [facility] [address] [facility] [address] [place] [address] Gracie Crowley, UR COORDINATOR [facility] Start: 05-29-2024 End: 05-29-2024 ambulatory 05/29/2024 10:00 AM EST Treatment [facility] [address] [facility] [address] [place] [address] Philip Estrada, PT [address] [facility] [address] [place] [address] [facility] Start: 05-25-2024 End: 05-25-2024 ambulatory 05/25/2024 4:30 PM EST Treatment [facility] [address] [address] [place] [address] Carline Gracie, UR COORDINATOR [facility] Start: 05-22-2024 End: 05-22-2024 ambulatory [facility] Comment on above: Arrived Start: 05-17-2024 End: 05-17-2024 Clinical Support 05/17/2024 9:00 AM EST Clinical Support [facility] [address] [address] [place] [address] Carmen Rodriguez, PT [address] [place] [address] [facility] Start: 05-16-2024 End: 05-16-2024 Patient encounter procedure [facility] Comment on above: S/P total left hip arthroplasty (Primary Dx) Start: 05-11-2024 End: 05-11-2024 Clinical Support 05/11/2024 11:00 AM EST Clinical Support [facility] [address] [place] [address] Carmen Rodriguez, PT [address] [place] [address] [facility] Start: 05-02-2024 End: 05-02-2024 Admission to same day surgery center 05/02/2024 7:45 AM EST - 05/02/2024 10:45 AM EST Surgery [facility] Surgery [address] [place] [address] Salima Pedro Jr., DO [address] [facility] [address] [place] [address] REPLACEMENT TOTAL JOINT HIP [38128 (CPT )] [facility] - Surgery Comment on above: REPLACEMENT TOTAL JOINT HIP [47128 (CPT )] Start: 05-02-2024 End: 05-02-2024 Arthrp acetblr/prox fem prostc agrft/algrft REPLACEMENT TOTAL JOINT HIP left hip degenerative joint disease 05/02/2024 7:45 AM EST [facility] Start: 05-02-2024 Subsequent hospital visit by physician 05/02/2024 7:45 AM EST Hospital Encounter [facility] - Surgery [address] [place] [id number] Salima Pedro Jr., DO [address] [place] [address] [facility] Start: 05-02-2024 End: 05-02-2024 Patient encounter procedure 05/02/2024 7:30 AM EST Procedure Visit [facility] Jr. Salima Pedro, DO [address] [place] [address] [facility] Start: 04-24-2024 End: 04-07-2025 Crossmatch RBC Crossmatch RBC Blood Bank Routine Preop examination Hypertension, unspecified type Osteoarthritis of left hip, unspecified osteoarthritis type Urinary frequency Expected: 04/24/2024, Expires: 04/07/2025 [facility] Comment on above: Expected: 04/24/2024, Expires: Start: 04-24-2024 End: 04-07-2025 Type and screen(includes indirect kylah) Type and screen(includes indirect kylah) Blood Bank Routine Preop examination Hypertension, unspecified type Osteoarthritis of left hip, unspecified osteoarthritis type Urinary frequency Expected: 04/24/2024, Expires: 04/07/2025 [facility] Work Phone: Comment on above: Expected: 04/24/2024, Expires: Start: 04-13-2024 End: 07-13-2024 Bacteria identified in Urine by Culture URINE CULTURE Microbiology Routine Abnormal urinalysis Expected: 04/13/2024, Expires: 07/13/2024 [facility] Work Phone: Comment on above: Expected: 04/13/2024, Expires: Start: 02-23-2024 End: 08-22-2024 CBC W Auto Differential panel - Blood CBC + DIFF Lab Routine Iron deficiency anemia secondary to inadequate dietary iron intake Expected: 02/23/2024 (Approximate), Expires: 08/22/2024 [facility] Work Phone: Comment on above: Expected: 02/23/2024 (Approximate), Expi res: 08/22/2024 Start: 02-23-2024 End: 08-22-2024 Cobalamin (Vitamin B12) [Mass/volume] in Serum or Plasma VITAMIN B12 BLOOD Lab Routine Iron deficiency anemia secondary to inadequate dietary iron intake Expected: 02/23/2024 (Approximate), Expires: 08/22/2024 [facility] Work Phone: Comment on above: Expected: 02/23/2024 (Approximate), Expi res: 08/22/2024 Start: 02-23-2024 End: 08-22-2024 Comprehensive metabolic 2000 panel - Serum or Plasma COMP METABOLIC PANEL Lab Routine Iron deficiency anemia secondary to inadequate dietary iron intake Expected: 02/23/2024 (Approximate), Expires: 08/22/2024 [facility] Work Phone: Comment on above: Expected: 02/23/2024 (Approximate), Expi res: 08/22/2024 Start: 02-23-2024 End: 08-22-2024 Ferritin [Mass/volume] in Serum or Plasma FERRITIN BLD Lab Routine Iron deficiency anemia secondary to inadequate dietary iron intake Expected: 02/23/2024 (Approximate), Expires: 08/22/2024 [facility] Work Phone: Comment on above: Expected: 02/23/2024 (Approximate), Expi res: 08/22/2024 Start: 02-23-2024 End: 08-22-2024 Folate [Mass/volume] in Serum or Plasma FOLATE SERUM Lab Routine Iron deficiency anemia secondary to inadequate dietary iron intake Expected: 02/23/2024 (Approximate), Expires: 08/22/2024 [facility] Work Phone: Comment on above: Expected: 02/23/2024 (Approximate), Expi res: 08/22/2024 Start: 02-23-2024 End: 08-22-2024 Iron and Iron binding capacity panel - Serum or Plasma IRON + TIBC Lab Routine Iron deficiency anemia secondary to inadequate dietary iron intake Expected: 02/23/2024 (Approximate), Expires: 08/22/2024 [facility] Work Phone: Comment on above: Expected: 02/23/2024 (Approximate), Expi res: 08/22/2024 Start: 02-23-2024 Screening for malignant neoplasm of breast Mammogram [facility] Start: 02-21-2024 End: 02-21-2024 Follow-up encounter Hematology/Oncology Comment on above: 6 month follow up with lab same day 6 month follow up wi th lab few days prior Start: 02-21-2024 End: 02-21-2024 Patient encounter procedure 02/21/2024 9:00 AM EDT Office Visit [facility] [address] [place] [address] [place] [address] 6 month follow up with lab same day [facility] Comment on above: 6 month follow up with lab same day Start: 02-17-2024 End: 02-17-2024 Patient encounter procedure [facility] Comment on above: lab Start: 02-09-2024 End: 02-09-2024 Patient encounter procedure 02/09/2024 9:45 AM EDT Office Visit [facility] [address] [place] [id number] Dalia Ordoñez, PA [address] [facility] [address] [place] [address] [facility] Start: 02-02-2024 End: 02-02-2024 Patient encounter procedure 02/02/2024 8:15 AM EDT Office Visit [facility] [address] [place] [phone] Jr. Salima Pedro DO [address] [facility] [address] [place] [address] Arrived [facility] Comment on above: Arrived Start: 01-30-2024 Covid-19 Vaccine (7 - 2023-24 season) Covid-19 Vaccine ( season) [facility] Start: 01-30-2024 Covid-19 Vaccine ( season) Covid-19 Vaccine () [facility] Start: 01-30-2024 Influenza vaccination [facility] Start: 01-21-2024 End: 01-21-2024 Patient encounter procedure 01/21/2024 10:00 AM EDT Office Visit Gastroenterology [address] [place] [address] Jose Alberto Beach Jr., DO [address] [place] [address] Stomach Pain Gastroenterology Comment on above: Stomach Pain Start: 11-15-2023 End: 11-15-2023 Patient encounter procedure 11/15/2023 9:45 AM EDT Office Visit [facility] [address] [place] [address] Enmanuel Burton, DO [address] [place] [address] [facility] Start: 10-26-2023 End: 10-26-2023 Patient encounter procedure 10/26/2023 8:15 AM EDT Office Visit [facility] [address] [place] [phone] Dalia Ward PA [address] [place] [address] [facility] Start: 10-08-2023 End: 10-08-2023 Admission to same day surgery center 10/08/2023 7:25 AM EDT - 10/08/2023 7:31 AM EDT Surgery [facility] - Pain Procedures [address] [place] [phone] Enmanuel Ferreira MD [address] [place] [address] INJECTION BLOCK SACROILIAC JOINT [53066 (CPT )] [facility] - Pain Procedures Comment on above: INJECTION BLOCK SACROILIAC JOINT [11835 (CPT )] Start: 10-08-2023 End: 10-08-2023 Inject si joint arthrgrphy&/anes/ster oid w/marcio INJECTION BLOCK SACROILIAC JOINT Disorder of sacrum 10/08/2023 7:25 AM EDT [facility] Start: 10-08-2023 Subsequent hospital visit by physician [facility] Pain Procedures Start: 08-09-2023 End: 08-09-2023 Patient encounter procedure 08/09/2023 8:45 AM EDT Office Visit [facility] [address] [place] [address] Jr. Salima Pedro C, DO [address] [place] [address] [facility] Start: 07-31-2023 Covid-19 Vaccine ( season) Covid-19 Vaccine () [facility] Start: 07-30-2023 End: 10-29-2023 CBC W Auto Differential panel - Blood CBC + DIFF Lab Routine Thrombocytopenia (HCC) Lymphocytosis Mediastinal lymphadenopathy Expected: 07/30/2023, Expires: 10/29/2023 [facility] Work Phone: Comment on above: Expected: 07/30/2023, Expires: 4 Start: 07-30-2023 End: 10-29-2023 Comprehensive metabolic 2000 panel - Serum or Plasma COMP METABOLIC PANEL Lab Routine Thrombocytopenia (HCC) Lymphocytosis Mediastinal lymphadenopathy Expected: 07/30/2023, Expires: 10/29/2023 [facility] Work Phone: Comment on above: Expected: 07/30/2023, Expires: 4 Start: 07-30-2023 End: 10-29-2023 FLOW CYTOMETRY FOR LEUKEMIA/LYMPHOMA (FCLL) FLOW CYTOMETRY FOR LEUKEMIA/LYMPHOMA (FCLL) Lab Routine Thrombocytopenia (HCC) Lymphocytosis Mediastinal lymphadenopathy Expected: 07/30/2023, Expires: 10/29/2023 [facility] Work Phone: Comment on above: Expected: 07/30/2023, Expires: Start: 07-30-2023 End: 10-29-2023 Lactate dehydrogenase [Enzymatic activity/volume] in Serum or Plasma LD LACTATE DEHYDRO Lab Routine Thrombocytopenia (HCC) Lymphocytosis Mediastinal lymphadenopathy Expected: 07/30/2023, Expires: 10/29/2023 [facility] Work Phone: Comment on above: Expected: 07/30/2023, Expires: Start: 07-12-2023 End: 07-12-2024 EMG AND NERVE CONDUCTION STUDY EMG AND NERVE CONDUCTION STUDY Neurology Routine Limb weakness Numbness Paresthesia Pain in extremity, unspecified extremity Expected: 07/12/2023 (Approximate), Expires: 07/12/2024 [facility] Work Phone: Comment on above: Expected: 07/12/2023 (Approximate), Expi res: 07/12/2024 Start: 07-12-2023 End: 07-12-2024 RF Guidance for injection of Joint FL guided injection hip left Imaging Routine Primary osteoarthritis of left hip Expected: 07/12/2023 (Approximate), Expires: 07/12/2024 [facility] Comment on above: Expected: 07/12/2023 (Approximate), Expi res: 07/12/2024 Start: 07-12-2023 End: 07-12-2023 Patient encounter procedure 07/12/2023 8:45 AM EST Office Visit [facility] [address] [place] [address] Jr. Salima Pedro, DO [address] [facility] [address] [place] [address] [facility] Start: 07-05-2023 End: 04-04-2024 CBC W Auto Differential panel - Blood CBC + DIFF Lab Routine Thrombocytopenia (HCC) Iron deficiency anemia secondary to inadequate dietary iron intake Expected: 07/05/2023 (Approximate), Expires: 04/04/2024 [facility] Work Phone: Comment on above: Expected: 07/05/2023 (Approximate), Expi res: 04/04/2024 Start: 07-05-2023 End: 04-04-2024 Cobalamin (Vitamin B12) [Mass/volume] in Serum or Plasma VITAMIN B12 BLOOD Lab Routine Thrombocytopenia (HCC) Iron deficiency anemia secondary to inadequate dietary iron intake Expected: 07/05/2023 (Approximate), Expires: 04/04/2024 [facility] Work Phone: Comment on above: Expected: 07/05/2023 (Approximate), Expi res: 04/04/2024 Start: 07-05-2023 End: 04-04-2024 Comprehensive metabolic 2000 panel - Serum or Plasma COMP METABOLIC PANEL Lab Routine Thrombocytopenia (HCC) Iron deficiency anemia secondary to inadequate dietary iron intake Expected: 07/05/2023 (Approximate), Expires: 04/04/2024 [facility] Work Phone: Comment on above: Expected: 07/05/2023 (Approximate), Expi res: 04/04/2024 Start: 07-05-2023 End: 04-04-2024 Ferritin [Mass/volume] in Serum or Plasma FERRITIN BLD Lab Routine Thrombocytopenia (HCC) Iron deficiency anemia secondary to inadequate dietary iron intake Expected: 07/05/2023 (Approximate), Expires: 04/04/2024 [facility] Work Phone: Comment on above: Expected: 07/05/2023 (Approximate), Expi res: 04/04/2024 Start: 07-05-2023 End: 04-04-2024 Folate [Mass/volume] in Serum or Plasma FOLATE SERUM Lab Routine Thrombocytopenia (HCC) Iron deficiency anemia secondary to inadequate dietary iron intake Expected: 07/05/2023 (Approximate), Expires: 04/04/2024 [facility] Work Phone: Comment on above: Expected: 07/05/2023 (Approximate), Expi res: 04/04/2024 Start: 07-05-2023 End: 04-04-2024 Iron and Iron binding capacity panel - Serum or Plasma IRON + TIBC Lab Routine Thrombocytopenia (HCC) Iron deficiency anemia secondary to inadequate dietary iron intake Expected: 07/05/2023 (Approximate), Expires: 04/04/2024 [facility] Work Phone: Comment on above: Expected: 07/05/2023 (Approximate), Expi res: 04/04/2024 Start: 05-31-2023 Advance Directive Discussion Advance Directive Discussion [facility] Start: 05-31-2023 Behavioral Health Screening Behavioral Health Screening [facility] Start: 05-31-2023 Depression Assessment Depression Assessment [facility] Start: 04-09-2023 End: 10-08-2023 CBC W Auto Differential panel - Blood CBC + DIFF Lab Routine Thrombocytopenia (HCC) Lung nodules Iron deficiency anemia secondary to inadequate dietary iron intake Expected: 04/09/2023 (Approximate), Expires: 10/08/2023 [facility] Work Phone: Comment on above: Expected: 04/09/2023 (Approximate), Expi res: 10/08/2023 Start: 04-09-2023 End: 10-08-2023 Cobalamin (Vitamin B12) [Mass/volume] in Serum or Plasma VITAMIN B12 BLOOD Lab Routine Thrombocytopenia (HCC) Lung nodules Iron deficiency anemia secondary to inadequate dietary iron intake Expected: 04/09/2023 (Approximate), Expires: 10/08/2023 [facility] Work Phone: Comment on above: Expected: 04/09/2023 (Approximate), Expi res: 10/08/2023 Start: 04-09-2023 End: 10-08-2023 Comprehensive metabolic 2000 panel - Serum or Plasma COMP METABOLIC PANEL Lab Routine Thrombocytopenia (HCC) Lung nodules Iron deficiency anemia secondary to inadequate dietary iron intake Expected: 04/09/2023 (Approximate), Expires: 10/08/2023 [facility] Work Phone: Comment on above: Expected: 04/09/2023 (Approximate), Expi res: 10/08/2023 Start: 04-09-2023 End: 11-06-2023 CT CHEST W IVCON CT CHEST W IVCON Radiology Routine Lung nodules Expected: 04/09/2023 (Approximate), Expires: 11/06/2023 [facility] Work Phone: Comment on above: Expected: 04/09/2023 (Approximate), Expi res: 11/06/2023 Start: 04-09-2023 End: 10-08-2023 Ferritin [Mass/volume] in Serum or Plasma FERRITIN BLD Lab Routine Thrombocytopenia (HCC) Lung nodules Iron deficiency anemia secondary to inadequate dietary iron intake Expected: 04/09/2023 (Approximate), Expires: 10/08/2023 [facility] Work Phone: Comment on above: Expected: 04/09/2023 (Approximate), Expi res: 10/08/2023 Start: 04-09-2023 End: 10-08-2023 Folate [Mass/volume] in Serum or Plasma FOLATE SERUM Lab Routine Thrombocytopenia (HCC) Lung nodules Iron deficiency anemia secondary to inadequate dietary iron intake Expected: 04/09/2023 (Approximate), Expires: 10/08/2023 [facility] Work Phone: Comment on above: Expected: 04/09/2023 (Approximate), Expi res: 10/08/2023 Start: 04-09-2023 End: 10-08-2023 Iron and Iron binding capacity panel - Serum or Plasma IRON + TIBC Lab Routine Thrombocytopenia (HCC) Lung nodules Iron deficiency anemia secondary to inadequate dietary iron intake Expected: 04/09/2023 (Approximate), Expires: 10/08/2023 [facility] Work Phone: Comment on above: Expected: 04/09/2023 (Approximate), Expi res: 10/08/2023 Start: 03-15-2023 Pneumococcal 65+ years Vaccine (2 - PPSV23 or PCV20) Pneumococcal 65+ years Vaccine (2 - PPSV23 or PCV20) [facility] Start: 03-15-2023 Pneumococcal Vaccine: 65+ (3 - PPSV23 or PCV20) Pneumococcal Vaccine: 65+ (3 - PPSV23 or PCV20) [facility] Start: 03-15-2023 Pneumococcal Vaccine: 65+ (3 of 3 - PPSV23 or PCV20) Pneumococcal Vaccine: 65+ (3 of 3 - PPSV23 or PCV20) [facility] Start: 03-15-2023 Pneumococcal Vaccine: 65+ Years (3 - PPSV23 or PCV20) Pneumococcal Vaccine: 65+ Years (3 - PPSV23 or PCV20) [facility] Start: 03-15-2023 Pneumococcal Vaccine: 65+ Years (3 of 3 - PPSV23 or PCV20) Pneumococcal Vaccine: 65+ Years (3 of 3 - PPSV23 or PCV20) [facility] Start: 03-15-2023 PNEUMOCOCCAL: 65+ (#3) PNEUMOCOCCAL: 65+ (#3) [facility] Start: 03-15-2023 PNEUMOCOCCAL: 65+ (2 - PPSV23 or PCV20) PNEUMOCOCCAL: 65+ (2 - PPSV23 or PCV20) [facility] Start: 01-29-2023 Covid-19 Vaccine ( season) Covid-19 Vaccine ( season) [facility] Start: 01-29-2023 Influenza vaccination Influenza Vaccine (#1) [facility] Start: 01-21-2023 Screening for malignant neoplasm of breast Mammogram Screening [facility] Start: 05-31-2022 ADVANCE DIRECTIVE DISCUSSION ADVANCE DIRECTIVE DISCUSSION [facility] Start: 05-31-2022 DEPRESSION ASSESSMENT DEPRESSION ASSESSMENT [facility] Start: 02-16-2022 End: 02-16-2022 Admission to same day surgery center 02/16/2022 Surgery IP Unit Quique Mojica MD [address] [place] [address] L3-4 LUMBAR LAMINECTOMY POSTERIOR ABOVE PREVIOUS L 4-5 FUSION [facility]AZ OR Comment on above: L3-4 LUMBAR LAMINECTOMY POSTERIOR ABOVE PREVIOUS L 4-5 FUSION Start: 02-16-2022 End: 02-16-2022 Laminectomy w/o ffd > 2 vert seg lumbar LUMBAR LAMINECTOMY POSTERIOR Spinal stenosis of lumbar region, unspecified whether neurogenic claudication present 02/16/2022 12:15 PM EDT [facility] Start: 02-16-2022 Subsequent hospital visit by physician 02/16/2022 Hospital Encounter IP Unit Quique Mojica MD [address] [place] [address] [facility] Start: 02-12-2022 Annual Wellness Visit (AWV) Annual Well[facility] (AWV) [facility] Start: 01-29-2022 Influenza vaccination [facility] Start: 01-21-2022 Screening mammography of bilateral breasts MM screening mammo BI w/CAD [facility] Start: 01-21-2022 End: 01-21-2022 Patient encounter procedure Departed Clinical [facility] Start: 01-14-2022 Adult depression screening assessment DEPRESSION SCREENING [facility] Start: 12-09-2021 COVID-19 VACCINE (5 - Booster for Pfizer series) COVID-19 VACCINE (5 - Booster for Pfizer series) [facility] Start: 2021 ADVANCE DIRECTIVE DISCUSSION ADVANCE DIRECTIVE DISCUSSION [facility] Start: 2021 BONE DENSITY BONE DENSITY [facility] Start: 2021 Bone Density Screening Bone Density Screening [facility] Start: 2021 Fall Risk Screening Fall Risk Screening [facility] Start: 2021 Screening for osteoporosis Bone Density Screening [facility] Start: 05-31-2021 DEPRESSION ASSESSMENT DEPRESSION ASSESSMENT [facility] Start: 2016 RSV Vaccine (1 - 1-dose 60+ series) RSV Vaccine (1 - 1-dose 60+ series) [facility] Start: 2006 Screening for malignant neoplasm of breast Breast cancer screen [facility] Start: 2001 COLOGUARD (FIT-DNA) COLOGUARD (FIT-DNA) [facility] Start: 2001 Colonoscopy COLONOSCOPY [facility] Start: 2001 COLORECTAL CANCER SCREENING COLORECTAL CANCER SCREENING [facility] Start: [address] COLONOGRAPHY [facility] Start: 2001 FECAL OCCULT BLOOD FECAL OCCULT BLOOD [facility] Start: 2001 Screening for malignant neoplasm of colon [facility] Start: 2001 SIGMOIDOSCOPY SIGMOIDOSCOPY [facility] Start: 1996 Lipid panel Lipids [facility] Start: 1996 Mammography [facility] Start: 1996 Screening for malignant neoplasm of breast Mammogram Screening [facility] Start: 09-19-1991 Diabetes screen Diabetes screen [facility] Start: 1974 Adult BMI Follow Up Plan Adult BMI Follow Up Plan [facility] Start: 1974 Anxiety Screening Anxiety Screening [facility] Start: 1974 Depression Screening Depression Screening [facility] Start: 1974 Hepatitis C screening Hepatitis C screen [facility] Start: 1974 HIV SCREENING HIV SCREENING [facility] Start: 09-19-1971 HIV screening HIV screen [facility] Start: 1968 Depression Screen Depression Screen [facility] Start: 1968 Depression Screening Depression Screening [facility] Start: 1956 Medicare Annual Wellness Visit Medicare Annual Wellness Visit [facility] Start: 1956 Screening for malignant neoplasm of colon [facility] End: 02-19-2022 Basic metabolic 2000 panel - Serum or Plasma Basic Metabolic Panel Lab Routine Daily for 3 Days starting 02/17/2022 until 02/19/2022, 1 completed [employer] Work Phone: Comment on above: Daily for 3 Days starting 02/17/2022 unt il 02/19/2022, 1 completed End: 02-19-2022 CBC W Auto Differential panel - Blood CBC with Auto Differential Lab Routine Daily for 3 Days starting 02/17/2022 until 02/19/2022, 1 completed [employer] Work Phone: Comment on above: Daily for 3 Days starting 02/17/2022 unt il 02/19/2022, 1 completed End: 08-19-2024 CT Abdomen and Pelvis WO contrast CT ABD/PEL WO IVCON Radiology Routine Generalized abdominal pain 1 Occurrences starting 07/21/2023 until 08/19/2024 [facility] Work Phone: Comment on above: 1 Occurrences starting 07/21/2023 until 08/19/2024 Inject si joint arthrgrphy&/anes/ster oid w/marcio INJECTION BLOCK SACROILIAC JOINT Disorder of sacrum [facility] End: 02-16-2022 Intermittent pulse oximetry Pulse Oximetry Spot Check Respiratory Care Routine One Time for 1 Occurrences starting 02/16/2022 until 02/16/2022 [employer] Phone: Comment on above: One Time for 1 Occurrences starting 01/29 until 02/16/2022 Oxygen therapy [Minimum Data Set] Initiate Oxygen Therapy Protocol Respiratory Care Routine As Needed until discontinued starting 02/16/2022 [employer] Phone: Comment on above: As Needed until discontinued starting Spirometry panel Incentive mark metry Respiratory Care Routine Every 2hr while awake until discontinued starting 02/16/2022 [employer] Phone: Comment on above: Every 2hr while awake until discontinued starting 02/16/2022 XR Knee - left 1 or 2 Views XR knee 1 or 2 views left Imaging Routine Acute pain of left knee 02/09/2024 10:02 AM EDT [facility] [employer] Work Phone: [facility] Immunizations Immunization Date Immunization Notes Care Provider Fa bonifacio 02-25-2024 Pneumococcal Conjuga te PCV 20 [facility] [employer] Work Phone: [facility] [employer] 02-25-2024 Seasonal trivalent influenza vaccine, adjuvanted, preservative free [facility] [employer] Work Phone: [facility] [employer] 04-01-2023 Influenza, Seasonal, Quadrivalent, Adjuvanted Jr. Pedro DO Work Phone: [facility] [employer] 04-01-2023 RSV, recombinant, protein subunit RSVpreF, adjuvant reconstitu, 120mcg/0.5mL, PF (Arexvy) Jr. Stepanic DO Work Phone: [facility] 04-01-2023 influenza virus vacc ine, unspecified formulation Becki Villalobos [facility] 09-13-2022 hepatitis A and hepatitis B vaccine Jr. Stepanic DO Work Phone: [facility] 04-26-2022 Seasonal, quadrivale nt, recombinant, injectable influenza vaccine, preservative free Jose Bryant MD Work Phone: [facility] 04-26-2022 influenza virus vacc ine, unspecified formulation Jose Bryant MD Work Phone: [facility] 03-28-2021 influenza, injectabl e, quadrivalent, preservative free Dallas Lombardo MD Work Phone: [facility] 11-26-2020 zoster vaccine recombinant Dallas Lombardo MD Work Phone: [facility] 09-10-2020 COVID-19 mRNA, Lowell bains (Pfizer) MD Ricardo Hooper Work Phone: [facility] 08-19-2020 COVID-19 mRNALowell (Pfizer) MD Ricardo Hooper Work Phone: [facility] 07-29-2020 hepatitis A vaccine, adult dosage Dallas Lombardo MD Work Phone: [facility] 07-29-2020 tetanus toxoid, redu perri diphtheria toxoid, and acellular pertussis vaccine, adsorbed Dallas Lombardo MD Work Phone: [facility] 07-12-2020 typhoid capsular polysaccharide vaccine Dallas Lombardo MD Work Phone: [facility] 01-30-2020 influenza, injectabl e, quadrivalent, preservative free Dallas Lombardo MD Work Phone: [facility] 01-30-2020 zoster vaccine recombinant Dallas Lombardo MD Work Phone: [facility] 02-27-2019 influenza, injectabl e, quadrivalent, preservative free Dallas Lombardo MD Work Phone: [facility] 01-27-2019 influenza, injectabl e, quadrivalent, preservative free Dallas Lombardo MD Work Phone: [facility] 03-21-2018 influenza, injectabl e, quadrivalent, contains preservative Dallas Lombardo MD Work Phone: [facility] 03-21-2018 influenza, seasonal, injectable Dallas Lombardo MD Work Phone: [facility] 03-15-2018 influenza, injectabl e, quadrivalent, preservative free Dallas Lombardo MD Work Phone: [facility] 03-15-2018 pneumococcal polysaccharide vaccine, 23 valent Dallas Lombardo MD Work Phone: [facility] 02-28-2018 pneumococcal conjuga te vaccine, 13 valent Dallas Lombardo MD Work Phone: [facility] 01-29-2018 influenza virus vacc ine, unspecified formulation Dallas Lombardo MD Work Phone: [facility] 06-18-2017 influenza, high dose seasonal, preservative-free Dallas Lombardo MD Work Phone: [facility] 06-18-2017 pneumococcal polysaccharide vaccine, 23 valent Dallas Lombardo MD Work Phone: [facility] 04-20-2014 influenza, seasonal, injectable, preservative free Dallas Lombardo MD Work Phone: [facility] Payers Date Payer Category Payer Self-pay [id number] 2022 Medicaid [id number] 2022 Medicaid [id number] 2022 Medicare (Managed Care) HUMANA M EDICARE ADVANTAGE [id number] 2018 Medicare HUMANA MEDICARE HUMANA MEDICARE PPO [id number] 2018- [phone] [place] [address] [id number] 2017 Medicare [id number] 2017 Medicare O HUMANA MEDICARE [id number] 1959 Private Health Insurance [id number] 1959 Unknown [id number] 1956 Unknown [id number] ..840.1.889069.3.579.2. 593 1956 Unknown [id number] 2.16.840.1.084022.3.579.2. 593 1956 Unknown [id number] 2.16.840.1.245487.3.579.2. 593 1956 Unknown [id number] 2.16.840.1.593426.3.579.2. 593 1956 Unknown [id number] 2.16.840.1.606162.3.579.2. 593 1956 Unknown [id number] 2.16.840.1.468487.3.579.2. 593 1956 Unknown [id number] 2..840.1.718522.3.579.2. 593 1956 Unknown [id number] 2..840.1.178587.3.579.2. 593 1956 Unknown [id number] 2..840.1.194913.3.579.2. 593 1956 Unknown [id number] 2..840.1.194964.3.579.2. 593 1956 Unknown [id number] 2..840.1.174328.3.579.2. 593 1956 Unknown [id number] 2..840.1.560370.3.579.2. 593 1956 Unknown [id number] 2.16.840.1.730616.3.579.2. 593 1956 Unknown [id number] 2.16.840.1.827971.3.579.2. 593 1956 Unknown [id number] 2.16.840.1.463017.3.579.2. 593 1956 Unknown [id number] 2.16.840.1.943018.3.579.2. 593 1956 Unknown [id number] 2.16.840.1.232303.3.579.2. 593 1956 Unknown [id number] 2.16.840.1.432314.3.579.2. 727 1956 Unknown [id number] 2.16.840.1.489269.3.579.2. 177 1956 Unknown [id number] 2.16.840.1.287307.3.579.2. 177 1956 Unknown [id number] 2.16.840.1.448955.3.579.2. 177 1956 Unknown [id number] 2.16.840.1.347255.3.579.2. 177 1956 Unknown [id number] 2.16.840.1.282385.3.579.2. 128 1956 Unknown [id number] 2.16.840.1.289482.3.579.2. 1285 1956 Unknown [id number] 2.16.840.1.979448.3.579.2. 128 1956 Unknown [id number] 2.16.840.1.071467.3.579.2. 1286 1956 Unknown [id number] 2.16.840.1.841499.3.579.2. 1286 1956 Unknown [id number] 2.16840.1.764685.3.579.2. 128 1956 Unknown [id number] 2.16.840.1.742547.3.579.2. 128 1956 Unknown [id number] 2.16.840.1.759351.3.579.2. 128 1956 Unknown [id number] 2.16.840.1.423650.3.579.2. 1259 1956 Unknown [id number] 2.16.840.1.664239.3.579.2. 1259 1956 Unknown [id number] 2.16.840.1.598077.3.579.2. 1258 1956 Unknown [id number] 2.16.840.1.375947.3.579.2. 1258 1956 Unknown [id number] 2.16.840.1.614343.3.579.2. 1258 1956 Unknown [id number] 2.16.840.1.861499.3.579.2. 1258 1956 Unknown [id number] 2.16.840.1.574245.3.579.2. 1258 1956 Unknown [id number] 2.16.840.1.050125.3.579.2. 1258 1956 Unknown [id number] 2.840.1.997434.3.579.2. 1258 1956 Unknown [id number] 2.16.840.1.243748.3.579.2. 1258 1956 Unknown [id number] 2.16.840.1.350623.3.579.2. 1258 1956 Unknown [id number] 2.16.840.1.808917.3.579.2. 1258 1956 Unknown [id number] 2.840.1.016459.3.579.2. 1258 1956 Unknown [id number] 2.16.840.1.825253.3.579.2. 1258 1956 Unknown [id number] 2.16.840.1.251985.3.579.2. 1258 1956 Unknown [id number] 2.16.840.1.036312.3.579.2. 1258 1956 Unknown [id number] 2.16.840.1.786310.3.579.2. 1258 1956 Unknown [id number] 2.16.840.1.400918.3.579.2. 1259 1956 Unknown [id number] 2.16.840.1.071106.3.579.2. 9 1956 Unknown [id number] 2.16.840.1.321324.3.579.2. 1259 1956 Unknown [id number] 2.16.840.1.925487.3.579.2. 1258 1956 Unknown [id number] 2.16.840.1.482454.3.579.2. 1258 1956 Unknown [id number] 2.16.840.1.201605.3.579.2. 1258 1956 Unknown [id number] 2.16.840.1.507516.3.579.2. 9 1956 Unknown [id number] 2.16.840.1.021616.3.579.2. 1259 Medicare [place] [id number] [id number] Medicare Medicare [id number] Unknown [id number] 2.16.840.1.287310.3.579.2. 531 Social History Date Type Detail Facility Start: 01-23-2015 End: 11-02-2022 Tobacco smoking status VTIS Never smoked tobacco [facility] Start: 01-23-2015 End: 11-02-2022 Tobacco use and exposure Smokeless tobacco non-user [facility] Start: 07-10-2021 End: 04-11-2024 Alcohol intake Current drinker of alcohol (finding) [facility] Start: 06-17-2015 History SDOH Alcohol Comment rare [facility] Start: 1955 Sex Assigned At Not on file [facility] Start: 10-28-2021 End: 04-09-2022 Exposure to SARS-CoV-2 (event) Not sure [facility] Start: 1955 Sex Assigned At Female [facility] Start: 01-26-2022 End: 07-25-2024 Alcohol intake Ex-drinker (finding) [facility] Work Phone: Start: 09-15-2021 History SDOH Alcohol Frequency 1 ANGEL Alleantia Phone: Start: 06-10-2022 End: 01-05-2024 Sex Assigned At Female Justice Sharpe [facility] Start: 06-10-2022 End: 01-05-2024 History of Social function [facility] Adult Depression Screening Assessment 0 [facility] How often to you hav e a [...] Sexual orientation Heterosexual (finding) [facility] Start: 01-01-2015 End: 07-11-2024 Sex Female (finding) [facility] Start: 06-05-2017 Alcohol Comment once a month [facility] [employer] [facility] Procedure Code Equipment Code Equipment Original Text Equipment Identifier Dates Incv/Marielvelock 4.75 Use [id number] - [id number] - [id number] Start: 08-15-2019 Hip Dep Pf Spcl Mtl Construct - [id number] Start: 06-05-2017 Hd Fem 32mm 32 +5mm Std Articul/Dutch Ball 32 +5 Br - [id number] - [id number] Start: 06-05-2017 Comment on above: Description: +5 12/ 4 taper articul/dutch femoral head 32 mm Scr Canc Hip Cnn Gription 20mm Pinn Can Bone Screw 6.9cht88fg - [id number] - [id number] Start: 06-05-2017 Comment on above: Description: 6.5 x 2 0 mm Cup Actb 48mm Pncl Sect Srs Pinn Sector W/Gription 48mm - [id number] - [id number] Start: 06-05-2017 Comment on above: Description: 48 mm O D pinnacle gription acetabular shell sector Corail Amt Colla r Size 11 Stm Fem 145mm 11mm Std Corail2 - [id number] - [id number] Start: 06-05-2017 Comment on above: Description: KA size 11 standard collared corail cementless femoral stem Linr Actb 48mm 32mm Ntrl Altrx Altrx Neut [id number] - [id number] - [id number] Start: 06-05-2017 Comment on above: Description: 32 mm I D, 48 mm OD neutral pinnacle altrx polyethylene acetabular liner Elmntr Hl Drlc Pncl Hip Mrthn [place] Positive Stop - [id number] - [id number] Start: 06-05-2017 Comment on above: Description: hole el iminator ps Functional Status Date Assessment Result Facility 10-10-2022 Functional Status N/A [facility] Clinical Notes 11-05-2021 to 07-25-2024 AIDE Johnson - 07/25/2024 9:00 AM Berenice Tavarez MA - 06/21/2024 2:45 PM ESTTelephone Encounter - Summer Benjamín - 06/20/2024 9:43 AM AIDE Rojas - 06/13/2024 8:45 AM EST Note Date & Type Note Facility 07-25-2024 History of Present illness Narrative Images from the original note were not included. HISTORY OF PRESENT ILLNESS: POST OP PT Jessica Ferrera is an 68 y.o. @ female. (EST PT) PO S/P LT VERONA 05/02/24 (12 WKS) @ [facility]. XRAY EPIC 06/13/24 PHYSICAL THERAPY @ [facility] FINISHED PT. SORENESS LATERAL HIP. RARELY TAKES TRAMADOL AT HS. RARELY TAKES IBU. RUBS LATERAL HIP. DOING HEP. DENIES N/T. DENIES GIVING OUT. ONLY WAKES AT HS IF SHE LAYS ON LT SIDE. DENIES ANY OTHER ISSUES. REVIEW OF SYSTEMS: General: Denies fever, fatigue or weight loss Lungs: Denies SOB Cardio: Denies chest pain GI: Denies indigestion or abdominal pain Neuro: Denies numbness or tingling, denies new onset paralysis Musculoskeletal: ( see note) PHYSICAL EXAM: Hip Musculoskeletal Exam Gait Gait is normal. Inspection Leg length disparity: no discrepancy Left Erythema: none Ecchymosis: none Edema: none Deformity: none Previous incision: anterolateral Incision: well-healed Palpation Left Left hip palpation is normal. Increased warmth: none Tenderness: none Range of Motion Left Left hip range of motion is within functional limits. Active ROM: normal and no pain. Passive ROM: normal and no pain. Strength Left Left hip strength is normal. Extension: 5/5. Flexion: 5/5. Internal rotation: 5/5. External rotation: 5/5. Adduction: 5/5. Abduction: 5/5. Neurovascular Left Left hip neurovascular exam is normal. Pulses - PT: normal Posterior tibial: 2+ General Constitutional: appears stated age Labored breathing: no Psychiatric: normal mood and affect Neurological: alert and oriented x3 Skin: intact Lymphadenopathy: none XR hip left 2 or 3 views Imaging Result: AP and lateral of left hip: Acceptable position and alignment of left total hip arthroplasty. There was no evidence of loosening of the acetabular cup or femoral stem. Femoral head was well centered in the acetabular liner without evidence of asymmetric or accelerated wear. There was no gross evidence of fracture and/or dislocation. Impression: Unremarkable left total hip arthroplasty. Procedures No orders of the defined types were placed in this encounter. ASSESSMENT: No diagnosis found. Assessment & Plan 1. Post-operative status following left total hip arthroplasty. She is doing well and reports no significant pain or discomfort. She is doing her home exercises with a Wii program. She has upcoming travel plans next fall, but nothing in the coming months. She is working on healthy weight loss. She is very pleased with her left total hip arthroplasty, noting that symptoms are much better than before surgery. She will not schedule any prophylactic dental cleanings for at least 3 months. Continued engagement in her exercise regimen was discussed. She is also focusing on achieving healthy weight loss. Follow-up The patient will follow up on a yearly basis for surveillance. PROCEDURE The patient underwent a left total hip arthroplasty. Questions answered in laymen terms at the bedside. The diagnosis, home exercise plan and any ongoing restrictions/ recommendations reviewed. If unable to be reached in office, I recommend evaluation at nearest Emergency Room if any symptoms worsened or new symptoms develop for requiring urgent evaluation. documented in this encounter [facility] 06-21-2024 History of Present illness Narrative Images from the original note were not included. Enmanuel Burton, DO Obstetrics and Gynecology Jessica Ferrera 1955 06/21/24 [id number] Exam Chief Complaint Patient presents with vaginal irritation C/o ongoing vaginal pressure and irritation around vaginal opening. Denies UTI symptoms. Used OTC 3 day treatment that worked a little bit, but not 100%. Uses Estrace cream x3 weekly. Visit Vitals BP 140/82 Wt 230 lb BMI 39.48 kg/m OB Status Hysterectomy Smoking Status Never BSA 2.17 m OB History Para Term AB Living 2 1 1 1 SAB IAB Ectopic Multiple Live Births 1 1 # Outcome Date GA Lbr Fer/2nd Weight Sex Type Anes PTL Lv 2 Para 1977 9 lb 5 oz M Vag-Spont DEMETRICE 1 SAB Current Outpatient Medications Medication Sig Dispense Refill albuterol HFA 90 mcg/act inhaler INHALE 1 PUFF BY MOUTH EVERY 4 HOURS NEEDED acetaminophen (Tylenol) 500 MG tablet Take 500 mg by mouth every 6 (six) hours if needed baclofen (Lioresal) 10 MG tablet Take 10 mg by mouth. Cranberry 250 MG capsule esomeprazole (NexIUM) [address] capsule Take 40 mg by mouth in the morning. Take before meals. estradiol (Estrace) 0.1 MG/GM vaginal cream Vaginal 42.5 g 0 estradiol (Estrace) 0.1 MG/GM vaginal cream 0.5 g vaginally 2-3X weekly. 42.5 g 0 ferrous sulfate 325 (65 Fe) MG tablet Take 325 mg by mouth in the morning. Take with meals. fluticasone (Flonase) 50 MCG/ACT nasal spray USE 1 SPRAY IN EACH NOSTRIL TWICE DAILY NEEDED ibuprofen 800 MG tablet Lactobacillus (Acidophilus Probiotic) 0.5 MG tablet lisinopril 20 MG tablet Take 20 mg by mouth in the morning. MAGNESIUM PO Take by mouth methenamine hippurate (Hiprex) 1 g tablet Take 1 tablet by mouth in the morning and 1 tablet in the evening. Take with meals. Multiple Vitamin (Daily Vitamin) tablet Take 1 tablet by mouth Daily phentermine (Adipex-P) 37.5 MG tablet Take 37.5 mg by mouth in the morning. Take before meals. (Patient not taking: Reported on 04/11/2024) sennosides (Senokot) 8.6 MG tablet Take 8.6 mg by mouth in the morning. traMADol (Ultram) 50 MG tablet TAKE 1 TABLET BY MOUTH ONCE TO TWICE A DAY NEEDED FOR 7 DAYS traZODone (Desyrel) 100 MG tablet Take 100 mg by mouth at bedtime. No current facility-administered medications for this visit. Allergies Allergen Reactions Penicillins Shortness of breath TROUBLE BREATHING Tioconazole Itching Vaginal Burning Levofloxacin Swelling LEVAQUIN ; Joint Swelling, Myalgia, Joint Pain Miconazole Other BURNING Nirmatrelvir-Ritonavir GI intolerance Clindamycin/Lincomycin GI intolerance Doxycycline Nausea And Vomiting and GI intolerance Nitrofurantoin Hives, Itching, Swelling and Rash MACROBID Past Surgical History: Procedure Laterality Date ABDOMINAL SURGERY APPENDECTOMY 2004 BACK SURGERY 01/2022 CARPAL TUNNEL RELEASE Bilateral 1999 COLONOSCOPY 2010 DILATION AND CURETTAGE OF UTERUS ELBOW SURGERY Left 2005 [place] GUIDED INJECTION HIP LEFT Left 07/14/2023 FL GUIDED INJECTION HIP LEFT FL GUIDED INJECTION HIP LEFT Left 12/01/2023 FL GUIDED INJECTION HIP LEFT FL GUIDED INJECTION HIP LEFT Left 12/22/2023 FL GUIDED INJECTION HIP LEFT HYSTERECTOMY 1994 GONZALEZ-LSO KNEE SURGERY Right 2011 ROSSY LASER ABLATION OF THE CERVIX 1988 LUMBAR SPINE SURGERY 01/11/2023 L4-5 FUSION / HARDWARE REMOVAL ; DR CHING LUMBAR SPINE SURGERY 08/2016 L4-5 SX W/ HARDWARE ORIF ANKLE FRACTURE Left 2003 x3 SALPINGOOPHORECTOMY Right 2003 SHOULDER ARTHROSCOPY Left 2013, 2014 SHOULDER ARTHROSCOPY Right 08/15/2019 DR PEDRO SHOULDER SURGERY Right 2003 BURSITIS (BARRY) TONSILLECTOMY TOTAL HIP ARTHROPLASTY Right 06/05/2017 DR PEDRO TOTAL HIP ARTHROPLASTY Left 05/02/2024 DR PEDRO [facility] TOTAL KNEE ARTHROPLASTY Bilateral 2011 DR PEDRO VAGINAL DELIVERY 1977 Past Medical History: Diagnosis Date Appendicitis Fibromyalgia Frequent UTI History of medical problems low PLT - seeing [facility] 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 HEAD: normocephalic atraumatic. EYES: sclera anicteric. EARS: no obvious hearing deficit. 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 1 pelvic prolapse, gr. 1-2 rectocele EXTREMITIES no edema. NEUROLOGIC: alert and oriented. PSYCH: cooperative with exam. ICD-10-CM 1. Vaginal atrophy N95.2 estradiol (Estrace) 0.1 MG/GM vaginal cream 2. Postmenopausal HRT (hormone replacement therapy) Z79.890 estradiol (Estrace) 0.1 MG/GM vaginal cream She just restarted Estrace cream. Educated on atrophy. Advised to use Estradiol cream up inside 0.5 g and pull through external 3x a week. Should help increase thickness. Educated on rectocele. She denies problems with bowel movements. Entered by Ida Tavarez MA acting as scribe for Dr. Enmanuel Burton. Signature Ida Tavarez MA Date 06/21/24 . Time 2:38 PM . The documentation recorded by the scribe accurately reflects the service(s) I personally performed and the decisions I made. Signature India Burton D.O. Date 06/21/24 Time 5:00PM. documented in this encounter [facility] 06-20-2024 Telephone encounter Note Patient called in stating she has had irritation around the vaginal opening and it does hurt when she urinates. The patient doesn't have a UTI she states and doesn't have any other symptoms of an UTI. She stated she has pressure coming of the vaginal area and it has been going on for a week now. The patient is scheduled for 06/21/24. [facility] 06-20-2024 Miscellaneous Notes Patient called in stating she has had irritation around the vaginal opening and it does hurt when she urinates. The patient doesn't have a UTI she states and doesn't have any other symptoms of an UTI. She stated she has pressure coming of the vaginal area and it has been going on for a week now. The patient is scheduled for 06/21/24. documented in this encounter [facility] 06-13-2024 History of Present illness Narrative Images from the original note were not included. HISTORY OF PRESENT ILLNESS: POST OP PT Jessica Ferrera is an 68 y.o. @ female. (EST PT) PO S/P LT VERONA 05/02/24 (6 WKS) @ [facility] XRAY TODAY EPIC 06/13/24 PHYSICAL THERAPY @ [facility] WALKING UNASSISTED. HAS GONE TO A COUPLE OP THERAPY SESSIONS. STATES IT IS THE SAME THING SHE DOES AT HOME, CONTINUES HEP. DENIES MUCH PAIN IN HIP, IF SHE HAS IT SHE FEELS IT IS NERVE/WEATHER RELATED. TAKING IBU AT HS. USING ICE PRN. DENIES GIVING OUT. DOES NOT WAKE AT HS. STOPPED ASA DUE TO MESSING WITH HER STOMACH. REVIEW OF SYSTEMS: General: Denies fever, fatigue or weight loss Lungs: Denies SOB Cardio: Denies chest pain GI: Denies indigestion or abdominal pain Neuro: Denies numbness or tingling, denies new onset paralysis Musculoskeletal: ( see note) PHYSICAL EXAM: Left Ankle Exam Range of Motion Dorsiflexion: normal Plantar flexion: normal Muscle Strength Dorsiflexion: 5/5 Plantar flexion: 5/5 Comments: Left Hip Exam Left hip exam is normal. Tenderness The patient is experiencing tenderness in the lateral (minimal soreness to scar, no s/s of infefction). Range of Motion Left hip abduction: not stressed with recent surgery. Adduction: normal Extension: normal Flexion: normal Muscle Strength Adduction: 5/5 Flexion: 5/5 Other Erythema: absent Scars: present (well healing, no erythema, discharge or drainage) Sensation: normal Pulse: present Comments: The operative lower extremity was neurovascularly intact without any sensorimotor deficits noted distal to the operative hip. Patient was able to motor feet, toes, ankle and knee in all anatomic planes with 5 out of 5 strength to the operative lower extremity with abduction stress testing not preformed secondary to surgery healing. Dorsalis pedis and posterior tibial pulses were present and equal bilaterally. Sensation to light touch was intact all dermatomes to lower extremities bilaterally. Negative Homans and negative Masoud were noted bilaterally to lower extremities. There was no evidence of infection the lower extremities bilaterally. Compartments were soft to lower extremities bilaterally. XR hip left 2 or 3 views Imaging Result: AP and lateral of left hip: Acceptable position and alignment of left total hip arthroplasty. There was no evidence of loosening of the acetabular cup or femoral stem. Femoral head was well centered in the acetabular liner without evidence of asymmetric or accelerated wear. There was no gross evidence of fracture and/or dislocation. Impression: Unremarkable left total hip arthroplasty. XR hip left 2 or 3 views Imaging Result: AP and lateral of left hip: Acceptable position and alignment of left total hip arthroplasty. There was no evidence of loosening of the acetabular cup or femoral stem. Femoral head was well centered in the acetabular liner without evidence of asymmetric or accelerated wear. There was no gross evidence of fracture and/or dislocation. Impression: Unremarkable left total hip arthroplasty. Procedures Orders Placed This Encounter Procedures XR hip left 2 or 3 views Order Specific Question: Reason for exam: Answer: total ASSESSMENT: ICD-10-CM 1. S/P total left hip arthroplasty Z96.642 2. Acute hip pain, left M25.552 XR hip left 2 or 3 views Assessment & Plan 1. Post-operative status following left total hip arthroplasty. X-rays were reviewed and discussed at the bedside, showing good position of the acetabular and femoral components. She reports significant improvement in her hip condition compared to the preoperative state. However, she has not been adhering to her prescribed physical therapy regimen due to illness, missing several sessions. She is feeling much better now. It is recommended that she continue with physical therapy for an additional 1 to 2 weeks, focusing on hip abduction exercises and a home exercise plan. Follow-up The patient will follow up in 5 weeks to check gait and yearly follow-ups likely at that time. PROCEDURE The patient underwent a left total hip arthroplasty. Questions answered in laymen terms at the bedside. The diagnosis, home exercise plan and any ongoing restrictions/ recommendations reviewed. If unable to be reached in office, I recommend evaluation at nearest Emergency Room if any symptoms worsened or new symptoms develop for requiring urgent evaluation. documented in this encounter [facility] 06-13-2024 Instructions AIDE Johnson - 06/13/2024 8:45 AM EST Discussed Hip Replacement Surgery- 6 week post operative visit: Xray of operative hip discussed at bedside. Reviewed Hip dislocation precautions: May start hip abduction with therapy. Reminded to hold off non urgent dental appts for 6 months post op Recommend Prophylactic Dental Antibiotics following 6 month period. documented in this encounter [facility] 06-05-2024 Telephone encounter Note She had lm noting she is not feeling any better and is cancelling. She confirmed 1 but said she is questionable to keep or not. I called her back and mentioned 06/08 was her last PT we have scheduled; I advised to keep pending feeling better. She noted she has a fu w/ Stepanic next week. [facility] 06-05-2024 Miscellaneous Notes She had lm noting she is not feeling any better and is cancelling. She confirmed 1 but said she is questionable to keep or not. I called her back and mentioned 06/08 was her last PT we have scheduled; I advised to keep pending feeling better. She noted she has a fu w/ Stepanic next week. documented in this encounter [facility] 05-22-2024 History of Present illness Narrative Visit: 5 Time in: 1425 Time out: 1505 Subjective: Pt. Is walking better around the house. Pleased with her progress. Patient was seen today for follow up visit S/P Left VERONA (DOS: 05/02/2024) Objective: Precautions: WBAT; standard hip precautions (NO hip ABDuction) Integumentary: Davina are out. Steri-strips intact. No s/s of infection. -ve Bubba's sign 3-/5 hip flexion strength Treatment: Ther Ex: exercises in grid (24 minutes) Manual Therapy: Assessment: Pt. Demonstrates good progress but hip weakness still present due to recent surgery. Pt. Demonstrates good hip ROM within hip precaution. Good effort with all ther ex today. Prognosis: Good Goals: Short Term (2-3 weeks): 1) Patient will be independent and compliant with home exercise program. Met 2) Patient will be independent/ modified independent with all transfers. Met Senior Living: (4-8 weeks) 1) Patient will demonstrate full active range of motion of left hip. Good progress 2) Patient will demonstrate 4/5 or better strength of left hip in order to participate in activities of interest without instability or fear of falling. Good progress 3) Patient will safely ambulate for unlimited distances without increase in left hip discomfort. Good progress 4) Patient will safely ambulate up and down flight of steps modified independently with reciprocal pattern. Good progress Plan: Patient will be seen 2-3 times per week for 6-8 weeks for therapeutic exercise, gait training, therapeutic activity, manual therapy, patient education, and modalities as needed for pain documented in this encounter [facility] 05-17-2024 History of Present illness Narrative Visit: 4 Time in: 8:44 am Time out: 9:10 am Subjective: Doing well overall. May have overdone it yesterday and is a little sore today. Got davina out yesterday. Is scheduled for outpatient therapy on Wednesday. Pleased with overall progress. Patient is now using cane around her home. Pain currently 3/10. Describes as an ache. Only taking pain meds at night to help her sleep. Was able to negotiate stairs and get in/out of the car without difficulty when going to her appointment. Patient was seen today for follow up visit S/P Left VERONA (DOS: 05/02/2024) Objective: Precautions: WBAT; standard hip precautions Integumentary: Davina are out. Steri-strips intact. No s/s of infection. -ve Bubba's sign 3-/5 hip flexion strength Treatment: Therex: Ankle pumps, quad sets, glute sets, heel slides, bridging, assisted SLR, SAQs, sitting knee flex, and ext x 10 each. Standing squats, heel raises, marching, and hip ext, x 15 each. Gait Training: Gait training with rolling walker with SC and mild deviation. Gait training with cane with SBA and limited stance time on LLE but overall mild deviation. Assessment: Patient is demonstrating pain and weakness of left hip secondary to recent VERONA surgery. Physical therapy intervention is appropriate to improve mobility and safety. Prognosis: Good Goals: Short Term (2-3 weeks): 1) Patient will be independent and compliant with home exercise program. Met 2) Patient will be independent/ modified independent with all transfers. 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 Good progress 2) Patient will demonstrate 4/5 or better strength of left hip in order to participate in activities of interest without instability or fear of falling. Good progress 3) Patient will safely ambulate for unlimited distances without increase in left hip discomfort. Good progress 4) Patient will safely ambulate up and down flight of steps modified independently with reciprocal pattern. Good progress Plan: Patient will be seen 2-3 times per week for 6-8 weeks for therapeutic exercise, gait training, therapeutic activity, manual therapy, patient education, and modalities as needed for pain documented in this encounter [facility] 05-16-2024 History of Present illness Narrative Images from the original note were not included. HISTORY OF PRESENT ILLNESS: POST OP PT Jessica Ferrera is an 68 y.o. @ female. No surgery found s/p surgery onNo surgery found 1ST PO 14 DAYS S/P LT VERONA (05/02/24) @ [facility] DOING WELL. ASPRIN 81 MG TWICE DAILY TYLENOL FOR PAIN, DENIES N/T IN LEG. INCISION WELL HEALING WITH DAVINA PRESENT. USING CANE. PT PRESENT WITH HER COUSIN. REVIEW OF SYSTEMS: General: Denies fever, fatigue or weight loss Lungs: Denies SOB Cardio: Denies chest pain GI: Denies indigestion or abdominal pain Neuro: Denies numbness or tingling, denies new onset paralysis Musculoskeletal: ( see note) PHYSICAL EXAM: Left Ankle Exam Range of Motion Dorsiflexion: normal Plantar flexion: normal Muscle Strength Dorsiflexion: 5/5 Plantar flexion: 5/5 Right Hip Exam Range of Motion Flexion: 80 Left Hip Exam Tenderness The patient is experiencing tenderness in the lateral (As expected with surgery, compartments soft). Range of Motion Left hip abduction: not stressed with recent surgery. Adduction: normal Extension: normal Flexion: 80 Muscle Strength Adduction: 5/5 Flexion: 4/5 Other Erythema: absent Scars: present (Wound healing well, davina removed, no dehisence, no erythema, discharge or drainage) Sensation: normal Pulse: present Comments: The operative lower extremity was neurovascularly intact without any sensorimotor deficits noted distal to the operative hip. Patient was able to motor feet, toes, ankle and knee in all anatomic planes with 5 out of 5 strength to the operative lower extremity with abduction stress testing not preformed secondary to surgery healing. Dorsalis pedis and posterior tibial pulses were present and equal bilaterally. Sensation to light touch was intact all dermatomes to lower extremities bilaterally. Negative Homans and negative Masoud were noted bilaterally to lower extremities. There was no evidence of infection the lower extremities bilaterally. Compartments were soft to lower extremities bilaterally. XR hip left 2 or 3 views THIS EXAM WAS PERFORMED AT [facility] June 05, 2017 XR HIP LT 2-3 VIEWS W OR WO PELVIS Preop examination; Hypertension, unspecified type; Osteoarthritis of left hip, unspecified osteoarthritis type; Urinary frequency Findings: There is no fracture or destructive lesion. Impression: * No acute findings. Moderate arthritis of left hip with joint space narrowing * Consider MRI if you suspect occult process. Finalized by Marc Heredia MD on 04/11/2024 2:36 PM Procedures No orders of the defined types were placed in this encounter. ASSESSMENT: ICD-10-CM 1. S/P total left hip arthroplasty Z96.642 Assessment & Plan 1. Postoperative status following left total hip arthroplasty. She is demonstrating satisfactory progress post-surgery. It is advised to refrain from hip abduction until a period of 6 weeks post-surgery has elapsed. She is effectively engaging in home exercises, with a planned transition to outpatient therapy. She is also encouraged to continue wearing her MIRTHA hose. She is beginning to shift towards using Tylenol for pain management. The use of occasional doses of Motrin was discussed and deemed acceptable, provided she remains vigilant for any gastrointestinal disturbances. She expressed gratitude for the care received. An x-ray will be conducted during her follow-up appointment in 4 weeks. She is advised to persist with the intake of aspirin 81 mg twice daily for the ensuing 2 weeks. PROCEDURE The patient underwent a left total hip arthroplasty. Questions answered in laymen terms at the bedside. The diagnosis, home exercise plan and any ongoing restrictions/ recommendations reviewed. If unable to be reached in office, I recommend evaluation at nearest Emergency Room if any symptoms worsened or new symptoms develop for requiring urgent evaluation. documented in this encounter [facility] 05-16-2024 Instructions AIDE Johnson - 05/16/2024 11:00 AM EST Discussed Hip Replacement Surgery- 2 week post operative visit: Recommend cont tedhose and Aspirin 81 mg twice daily for 2 weeks. Reviewed Hip dislocation precautions: no hip abduction until 6 weeks post op. Reminded to hold off non urgent dental appts for 6 months post op Recommend Prophylactic Dental Antibiotics following 6 month period. documented in this encounter [facility] 05-11-2024 History of Present illness Narrative Visit: 3 Time in: 10:53 am Time out: 11:22 am Subjective: Pain is well managed. Today has only taken Tylenol. Still having drainage from incision. Has had issues with swelling in LLE. Today, it isn't as bad. Patient was seen today for follow up visit S/P Left VERONA (DOS: 05/02/2024) Objective: Precautions: WBAT; standard hip precautions Integumentary: Dressing removed and incision inspected. No s/s of infection. [place] intact. 3-/5 hip flexion strength Treatment: Therex: Ankle pumps, quad sets, glute sets, heel slides, bridging, assisted SLR, SAQs, sitting knee flex, and ext x 10 each. Standing squats, heel raises, marching, hip ext, and abd x 15 each. Gait Training: Gait training with rolling walker with slow, continuous eric with mild deviation. Initiated gait with cane with slow, but continuous eric and mild deviation. Cues for more equal step length. Declined stair negotiation this date due to the weather. Assessment: Patient is demonstrating pain and weakness of left hip secondary to recent VERONA surgery. Physical therapy intervention is appropriate to improve mobility and safety. Prognosis: Good Goals: Short Term (2-3 weeks): 1) Patient will be independent and compliant with home exercise program. 2) Patient will be independent/ modified independent with all transfers. Senior Living: (4-8 weeks) 1) Patient will demonstrate full active range of motion of left hip. 2) Patient will demonstrate 4/5 or better strength of left hip in order to participate in activities of interest without instability or fear of falling. 3) Patient will safely ambulate for unlimited distances without increase in left hip discomfort. 4) Patient will safely ambulate up and down flight of steps modified independently with reciprocal pattern. Plan: Patient will be seen 2-3 times per week for 6-8 weeks for therapeutic exercise, gait training, therapeutic activity, manual therapy, patient education, and modalities as needed for pain documented in this encounter [facility] 05-08-2024 History of Present illness Narrative Visit: 2 Time in: 10:44 am Time out: 11:14 am Subjective: Doing a little better overall. Pain with meds 3-4/10. I'm doing better getting around. Chief complaint is swelling. Bowels are working. Patient was seen today for follow up visit S/P Left VERONA (DOS: 05/02/2024) Objective: Precautions: WBAT; standard hip precautions Integumentary: Dressing removed and incision inspected. No s/s of infection. Davina intact. 3-/5 hip flexion strength Treatment: Therex: Ankle pumps, quad sets, glute sets, heel slides, bridging, assisted SLR, SAQs, sitting knee flex, and ext x 10 each. Standing squats, heel raises, marching, hip ext, and abd x 10 each. Gait Training: Gait training with rolling walker with slow, non continuous eric with step-to pattern. Continues to rely heavily upon [place]es. Cues for more equal step length. Stair negotiation in/out of home with bilateral railings, non reciprocal pattern, cues and SBA x 5 steps. Assessment: Patient is demonstrating pain and weakness of left hip secondary to recent VERONA surgery. Physical therapy intervention is appropriate to improve mobility and safety. Prognosis: Good Goals: Short Term (2-3 weeks): 1) Patient will be independent and compliant with home exercise program. 2) Patient will be independent/ modified independent with all transfers. Senior Living: (4-8 weeks) 1) Patient will demonstrate full active range of motion of left hip. 2) Patient will demonstrate 4/5 or better strength of left hip in order to participate in activities of interest without instability or fear of falling. 3) Patient will safely ambulate for unlimited distances without increase in left hip discomfort. 4) Patient will safely ambulate up and down flight of steps modified independently with reciprocal pattern. Plan: Patient will be seen 2-3 times per week for 6-8 weeks for therapeutic exercise, gait training, therapeutic activity, manual therapy, patient education, and modalities as needed for pain documented in this encounter [facility] 05-04-2024 History of Present illness Narrative Visit: 1 Time in: 2:03 pm Time out: 2:45 pm Subjective: Has been miserable. Pain is a 12''. Patient is retired. Has history of bilateral TKA and right VERONA Patient was seen today for initial evaluation S/P Left VERONA (DOS: 05/02/2024) Patient is complaining of 10/10 pain in left hip. Pain is described as: sore; dull ache Patient is taking: Percocet Patient currently lives alone in 1 story trailer with 4 steps to enter. Family and friends checking on her regularly. Prior to surgery, patient was independent with all functional mobility including ambulation without device. Objective: Precautions: WBAT; standard hip precautions Integumentary: Dressing removed and incision inspected. Good signs of healing. Davina intact. Active left hip range of motion= 60% limitations in all directions. Passive left hip range of motion= 35% limitations in all directions. Gait: Patient demonstrates the ability to ambulate with stand by assistance with use of wheeled walker. Patient demonstrates antalgic type pattern with step-to and heavy dependence on upper extremities. Transfers: Sit to stand SBA. Sit to supine min assist Treatment: Patient was instructed in signs and symptoms of infection and blood clots. Therapeutic Exercise: Patient was instructed in hourly anti-embolic exercises. Also, instructed in heel slides, SAQs, assisted SLR, sitting knee flex, ext, standing squats, heel raises, and marching. Patient performed one set of 10 and was instructed to perform exercises 3-5 times per day. Gait Training: Patient was instructed in ambulation with use of wheeled walker. Patient was able to ambulate with stand by assistance with moderate dependence on upper extremities, with step-to pattern. Assessment: Patient is demonstrating pain and weakness of left hip secondary to recent VERONA surgery. Physical therapy intervention is appropriate to improve mobility and safety. Prognosis: Good Goals: Short Term (2-3 weeks): 1) Patient will be independent and compliant with home exercise program. 2) Patient will be independent/ modified independent with all transfers. 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 2) Patient will demonstrate 4/5 or better strength of left hip in order to participate in activities of interest without instability or fear of falling. 3) Patient will safely ambulate for unlimited distances without increase in left hip discomfort. 4) Patient will safely ambulate up and down flight of steps modified independently with reciprocal pattern. Plan: Patient will be seen 2-3 times per week for 6-8 weeks for therapeutic exercise, gait training, therapeutic activity, manual therapy, patient education, and modalities as needed for pain documented in this encounter [facility] 05-01-2024 Telephone encounter Note Post op pain rx. PDMP reviewed [facility] 05-01-2024 Miscellaneous Notes Post op pain rx. PDMP reviewed documented in this encounter [facility] 04-11-2024 History of Present illness Narrative Images from the original note were not included. GENERAL HISTORY AND PHYSICAL: NAME: Jessica Ferrera : 1955 HISTORY OF PRESENT ILLNESS: Jessica Ferrera is an 68 y.o. @ female. 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 MDS (myelodysplastic syndrome) (CMS/HCC) PAST SURGICAL HISTORY: Past Surgical History: Procedure Laterality Date ABDOMINAL SURGERY APPENDECTOMY 2004 BACK SURGERY 01/2022 CARPAL TUNNEL RELEASE Bilateral 1999 COLONOSCOPY 2010 DILATION AND CURETTAGE OF UTERUS ELBOW SURGERY Left 2006 FL GUIDED INJECTION HIP LEFT Left 07/14/2023 FL GUIDED INJECTION HIP LEFT FL GUIDED INJECTION HIP LEFT Left 12/01/2023 FL GUIDED INJECTION HIP LEFT FL GUIDED INJECTION HIP LEFT Left 12/22/2023 FL GUIDED INJECTION HIP LEFT HYSTERECTOMY 1995 GONZALEZ-LSO KNEE SURGERY Right 2011 ROSSY LASER ABLATION OF THE CERVIX 1988 LUMBAR SPINE SURGERY 01/11/2023 L4-5 FUSION / HARDWARE REMOVAL ; DR CHING LUMBAR SPINE SURGERY 08/2016 L4-5 SX W/ HARDWARE ORIF ANKLE FRACTURE Left 2003 x3 SALPINGOOPHORECTOMY Right 2004 SHOULDER ARTHROSCOPY Left 2013, 2015 SHOULDER ARTHROSCOPY Right 08/15/2019 DR PEDRO SHOULDER SURGERY Right 2003 BURSITIS (BARRY) TONSILLECTOMY TOTAL HIP ARTHROPLASTY Right 06/05/2017 DR PEDRO TOTAL KNEE ARTHROPLASTY Bilateral 2011 DR PEDRO VAGINAL DELIVERY 1977 SOCIAL HISTORY: Social History Occupational History Not on file Tobacco Use Smoking status: Never Smokeless tobacco: Never Substance and Sexual Activity Alcohol use: Not Currently Comment: Caffeine intake: 1-2 cups per day Drug use: Never Sexual activity: Not Currently Partners: Male control/protection: Abstinence ALLERGIES: Allergies Allergen Reactions Penicillins Shortness of breath TROUBLE BREATHING Tioconazole Itching Vaginal Burning Levofloxacin Swelling LEVAQUIN ; Joint Swelling, Myalgia, Joint Pain Miconazole Other BURNING Nirmatrelvir-Ritonavir GI intolerance Clindamycin/Lincomycin GI intolerance Doxycycline Nausea And Vomiting and GI intolerance Nitrofurantoin Hives, Itching, Swelling and Rash MACROBID MEDICATIONS: Current Outpatient Medications Medication Instructions baclofen (LIORESAL) 10 mg Cranberry 250 MG capsule esomeprazole (NEXIUM) 40 mg, Daily before breakfast estradiol (Estrace) 0.1 MG/GM vaginal cream Vaginal ferrous sulfate 325 mg, Daily with breakfast fluticasone (Flonase) 50 MCG/ACT nasal spray USE 1 SPRAY IN EACH NOSTRIL TWICE DAILY NEEDED ibuprofen 800 MG tablet Lactobacillus (Acidophilus Probiotic) 0.5 MG tablet lisinopril 20 mg, Daily RT methenamine hippurate (Hiprex) 1 g tablet 1 tablet, 2 times daily with meals Multiple Vitamin (Daily Vitamin) tablet 1 tablet, Daily phentermine (ADIPEX-P) 37.5 mg, Daily before breakfast sennosides (SENOKOT) 8.6 mg, Daily RT traMADol (Ultram) 50 MG tablet TAKE 1 TABLET BY MOUTH ONCE TO TWICE A DAY NEEDED FOR 7 DAYS traZODone (DESYREL) 100 mg, Nightly REVIEW OF SYSTEMS: Review of Systems Constitutional: Negative for fatigue, fever and unexpected weight change. Eyes: Negative for redness and visual disturbance. Gastrointestinal: Negative for abdominal pain. Denies Indigestion Musculoskeletal: See note: Skin: Negative for color change and rash. Neurological: Negative for light-headedness and numbness. Vitals: Body mass index is 39.51 kg/m . PHYSICAL EXAM: Physical Exam Constitutional: General: She is not in acute distress. Appearance: Normal appearance. HENT: Head: Normocephalic and atraumatic. Right Ear: External ear normal. Left Ear: External ear normal. Nose: Nose normal. No rhinorrhea. Mouth/Throat: Mouth: Mucous membranes are moist. Dentition: No gingival swelling or dental abscesses. Pharynx: Oropharynx is clear. No pharyngeal swelling or posterior oropharyngeal erythema. Eyes: Extraocular Movements: Extraocular movements intact. Conjunctiva/sclera: Conjunctivae normal. Cardiovascular: Rate and Rhythm: Normal rate and regular rhythm. Pulses: Normal pulses. Heart sounds: Normal heart sounds. No murmur heard. Pulmonary: Effort: Pulmonary effort is normal. No respiratory distress. Breath sounds: Normal breath sounds. No wheezing or rhonchi. Abdominal: Palpations: Abdomen is soft. Tenderness: There is no abdominal tenderness. Musculoskeletal: Cervical back: Normal range of motion and neck supple. Lymphadenopathy: Cervical: No cervical adenopathy. Skin: General: Skin is warm and dry. Findings: No erythema or rash. Neurological: General: No focal deficit present. Mental Status: She is alert and oriented to person, place, and time. Psychiatric: Mood and Affect: Mood normal. Behavior: Behavior normal. No orders of the defined types were placed in this encounter. ASSESSMENT: ICD-10-CM 1. Pre-op examination Z01.818 2. Primary osteoarthritis of left hip M16.12 PLAN: This patient presents for preadmission testing for upcoming surgery. Complete history with medical, surgery, and current allergy and medication list obtained. Consent for surgery signed and witnessed after verbal consent to perform surgery received. All questions answered and proposed surgery scheduled. (L) VERONA 05/02 @[facility] SX INSTRUCTIONS GIVEN TODAY 04/11 @11AM - DINORAH PAT 04/11 @9AM DR. HOOPER CLEARANCE 04/19 @10:30AM PULMONOLOGY CLEARANCE ; OBTAINED DENTAL CLEARANCE ; OBTAINED DEPUY NOTIFIED PA APPROVED ([id number]) Follow up for 05/16/24 @ 11:00AM - DINORAH W/ ROCKY. documented in this encounter [facility] 04-11-2024 Instructions Elisabet Gallegos RN - 04/11/2024 9:00 AM EST Preoperative Education Checklist- Joints/Spine Surgery date: 05/02/24 Surgery time: 0745 a.m. Arrival time: 0610 a.m. Return between 04/24-05/01/24 Mon-Fri 7 a.m.- 5p.m. to [facility] for your last blood test. 1. Bring a photo ID and your insurance card with you the day of surgery. You will check in at the main lobby of the [facility]- registration desk is straight ahead as soon as you walk in. Tell them you are here for surgery. 2. If you have a Living Will/Durable Power of Certified Respiratory Therapist for Health Care that is not on file here, please bring a copy the day of surgery. 3. Please shower/tub bath the night before surgery and use wipes as directed. Do not shower the morning of surgery- you will again use wipes when you arrive here at the hospital before getting into your surgical gown. Do not shave the area of your procedure for 2 days prior to your surgery. 4. NO powder, lotion, perfume/cologne, aftershave, make-up, deodorant, or hair products after you have bathed. 5. No nail zimbabwean/acrylic on at least one finger. If you are having a hand, wrist, foot, or leg surgery then ALL nail zimbabwean and artificial/acrylic nails MUST be removed from that hand or foot. 6. Avoid ALL Aspirin and non-steroidal anti-inflammatory drugs (Ibuprofen, Advil, Aleve, Excedrin, Meloxicam, Celebrex, fish/krill oil, etc.) for 7 days prior to surgery as instructed by your surgeon and/or prescribing doctor. Tylenol IS ALLOWED. If you are on Ticlid, Xarelto, Eliquis, Pradaxa, Plavix or Coumadin, please check with your prescribing doctor for instructions for when to stop them. 7. If you use an inhaler, continue to use it routinely. 8. Nothing to eat or drink (not even water, gum, mints, or hard candy!) AFTER midnight prior to your surgery. 7. Take only medications that you are instructed to on the morning of surgery with a TINY SIP OF WATER. 9. Choose a responsible adult that will be able to drive you home when you are discharged from your hospital stay for your surgery- no driving or operating any machinery for 24 hours after surgery. 10. When you dress for your appointment, please wear loose fitting clothing that is appropriate to accommodate your surgical area procedure. BRING WITH YOU ANY DEVICES YOU MAY NEED: MIRTHA hose, ice machine, sling/swath, brace or special shoe, crutches, oversized sup-up or button up shirt, CPAP machine if staying overnight. 11. Do NOT wear jewelry, watches, or any piercings or metal for surgery. 12. Do NOT wear contact lenses for surgery- glasses are okay if needed. 13. The anesthesiologist will talk with you the day of surgery and will ask you to sign a Consent Form. 14. Refrain from smoking or any type of tobacco use for at least 8 hours or marijuana for 24 hours prior to arrival for your surgery. 15. If a GREEN BLOOD band is given to you, please bring it with you for the day of surgery. 16. Notify your surgeon if you develop any illness before your surgery. 17. If you are staying overnight, please DO NOT BRING your home medications with your. 18. If you have any questions prior to surgery, please call the Preadmission Testing office at [phone] Mon.-Fri. 7 a.m.-3 p.m. Leave a voicemail if needed. Pre-Surgery Instructions: Medication Instructions acidophilus-pectin, citrus 100 million cell-10 mg capsule Stop taking 0 days prior to procedure albuterol (PROVENTIL HFA;VENTOLIN HFA) 90 mcg/actuation inhaler Take morning of procedure if needed albuterol (PROVENTIL,VENTOLIN) 2.5 mg /3 mL (0.083 %) nebulizer solution Take morning of procedure if needed baclofen (LIORESAL) 10 mg tablet Stop taking 0 days prior to procedure cranberry 500 mg capsule Stop taking 0 days prior to procedure esomeprazole (NexIUM) 40 mg capsule Take morning of procedure FeroSuL 325 mg (65 mg iron) tablet Stop taking 0 days prior to procedure fluticasone propionate (FLONASE) 50 mcg/actuation nasal spray Stop taking 0 days prior to procedure ibuprofen (ADVIL,MOTRIN) 800 mg tablet Stop taking 14 days prior to procedure lisinopril (PRINIVIL,ZESTRIL) 20 mg tablet Take morning of procedure methenamine (HIPREX) 1 gram tablet Stop taking 0 days prior to procedure senna (SENOKOT) 8.6 mg tablet Stop taking 0 days prior to procedure traMADoL (ULTRAM) 50 mg tablet Stop taking 0 days prior to procedure traZODone (DESYREL) 100 mg tablet Stop taking 0 days prior to procedure What to Expect Following Your Surgery After surgery you will be in the recovery room for approximately 1 hour before you are moved to your room. Please let your family and visitors know this. You may be in a bed that has a trapeze overhead to assist you with movement while in bed. After surgery you will have a Cartwright catheter in place (it is usually removed the first day after surgery after your first round of physical therapy has been completed), foot pumps on for circulation and prevention of blood clots, an IV, and possibly a INTERIOR DESIGN CONSULTANT pump and/or a NERVE BLOCK (both used for pain control). We will have you rate your pain on a scale from 0-10, with 10 being the highest possible pain level. We will NOT be able to get rid of ALL of your pain. We strive to keep you comfortable in the 3-5 range on the pain scale. PLEASE let your nurse know if your pain starts to creep up above a level of 5. We use a combination of IV medications, oral medications, ice, and elevation according to the doctor s orders in order to help keep your pain at a tolerable level. The first 24 hours after surgery are very busy! The doctor orders certain routine medications that are to be given up to every 4 hours along with breathing treatments and vital signs being assessed every 4 through the first night of your surgery in order to make sure that you are progressing as expected after surgery. This often makes it hard to sleep well the first night, but it is necessary to make sure that we are providing you the best care possible. We try to coordinate this care with each department in order to help you get as much uninterrupted sleep as possible. We also have earplugs and eye masks available by request to promote and enhance your sleep time. While here, you may see one of our Hospitalist physicians if your family doctor does not round on patients at [facility] to see you while you are here after surgery. Your orthopedic doctor will be directing all of your care and your discharge, but sometimes they need to consult with primary care/hospitalists in order to better serve you. Having the Hospitalists see you while in the hospital allows your primary care doctor to have more time in their offices, and the hospitalists will be in communication with your primary care doctor with updates on your care. Once discharged from the hospital, you will see your regular primary care physician as directed. While in the hospital you will receive physical therapy from [facility] physical therapists who work in the hospital and they will start seeing you the morning after surgery. Therapy from your orthopedic doctor s office will begin seeing you once you are discharged from the hospital- they are not contracted to provide your treatment while you are in the hospital. You may have spoken with a information systems planner at your orthopedic doctor s office, but you will still review your discharge plan with our information systems planner from here at the hospital in order to make sure that you understand all of your options prior to going home or to a facility. How to Avoid an Infection after Your Surgery Your doctor will give you specific instructions, but remember: -ALWAYS wash hands before caring for your incision. -No picking, scratching, or rubbing your incision. -No creams, lotion, powder, rubbing alcohol or hydrogen peroxide on the incision (can harm the tissue and slow healing). -Your doctor will give you specific instructions for what type of dressing you will need and how often it will need changed for infection purposes. -No tight clothing on incision. -Do not allow anyone to touch your incision unless they are cleaning, checking, or redressing it (be sure they wash their hands first). -No contact of your incision with pets; avoid sleeping with pets. -Take full course of antibiotic if prescribed for you after surgery- do not stop unless directed to by your physician. You may also be given an antibiotic prior to your surgery to help prevent surgical site infections. -Eat a healthy and varied diet including proteins, fruits, and vegetables to help promote wound healing and keep blood sugars under control if you are diabetic. -Smoking slows the healing process by decreasing the amount of oxygen in your blood that is needed for tissue healing. Try to avoid or stop smoking if possible. LOOK at your incision each morning and each night to check the progress of healing. Some soreness, numbness, itching and/or mild bruising around the incision is normal. Call your doctor if you notice any of the following: -Increased redness or hardening around the incision area. -Increased pain at the incision site. -Incision feels hot to the touch. -Swelling or pulling apart of the incision edges. -Yellow or green drainage or foul odor coming from the incision. -Bleeding from the incision (apply pressure as needed). -Fever higher than 101 degrees Fahrenheit for more than 4 hours. SHOWERING: Your doctor will give you specific instructions, but remember: -Be careful getting into and out of the shower. -Showers should be quick (5 minutes or less). -Use a clean washcloth to gently wash your incision with soap and water and pat the area dry with a clean towel. -No re-using wash cloths or towels; get a fresh one to clean your incision. -Do not soak in the bathtub, go swimming or use a hot tub (Jacuzzi), or perform activities where your incision is submerged in water or exposed to any fluids or substances until instructed by your doctor. -If your have the sticky strips (steri-strips) over the incision, it is OK to shower with them. Do not remove them. Let them fall off on their own. If you have a question, call your doctor s office. Go to the follow-up appointment with your doctor. documented [facility] Miscellaneous Notes Preoperative Education Checklist- Joints/Spine Surgery date: 05/02/24 Surgery time: 0745 a.m. Arrival time: 0610 a.m. Return between 04/24-05/01/24 Mon-Fri 7 a.m.- 5p.m. to [facility] for your last blood test. 1. Bring a photo ID and your insurance card with you the day of surgery. You will check in at the main lobby of the [facility]- registration desk is straight ahead as soon as you walk in. Tell them you are here for surgery. 2. If you have a Living Will/Durable Power of Certified Respiratory Therapist for Health Care that is not on file here, please bring a copy the day of surgery. 3. Please shower/tub bath the night before surgery and use wipes as directed. Do not shower the morning of surgery- you will again use wipes when you arrive here at the hospital before getting into your surgical gown. Do not shave the area of your procedure for 2 days prior to your surgery. 4. NO powder, lotion, perfume/cologne, aftershave, make-up, deodorant, or hair products after you have bathed. 5. No nail zimbabwean/acrylic on at least one finger. If you are having a hand, wrist, foot, or leg surgery then ALL nail zimbabwean and artificial/acrylic nails MUST be removed from that hand or foot. 6. Avoid ALL Aspirin and non-steroidal anti-inflammatory drugs (Ibuprofen, Advil, Aleve, Excedrin, Meloxicam, Celebrex, fish/krill oil, etc.) for 7 days prior to surgery as instructed by your surgeon and/or prescribing doctor. Tylenol IS ALLOWED. If you are on Ticlid, Xarelto, Eliquis, Pradaxa, Plavix or Coumadin, please check with your prescribing doctor for instructions for when to stop them. 7. If you use an inhaler, continue to use it routinely. 8. Nothing to eat or drink (not even water, gum, mints, or hard candy!) AFTER midnight prior to your surgery. 7. Take only medications that you are instructed to on the morning of surgery with a TINY SIP OF WATER. 9. Choose a responsible adult that will be able to drive you home when you are discharged from your hospital stay for your surgery- no driving or operating any machinery for 24 hours after surgery. 10. When you dress for your appointment, please wear loose fitting clothing that is appropriate to accommodate your surgical area procedure. BRING WITH YOU ANY DEVICES YOU MAY NEED: MIRTHA hose, ice machine, sling/swath, brace or special shoe, crutches, oversized sup-up or button up shirt, CPAP machine if staying overnight. 11. Do NOT wear jewelry, watches, or any piercings or metal for surgery. 12. Do NOT wear contact lenses for surgery- glasses are okay if needed. 13. The anesthesiologist will talk with you the day of surgery and will ask you to sign a Consent Form. 14. Refrain from smoking or any type of tobacco use for at least 8 hours or marijuana for 24 hours prior to arrival for your surgery. 15. If a GREEN BLOOD band is given to you, please bring it with you for the day of surgery. 16. Notify your surgeon if you develop any illness before your surgery. 17. If you are staying overnight, please DO NOT BRING your home medications with your. 18. If you have any questions prior to surgery, please call the Preadmission Testing office at [phone] Mon.-Fri. 7 a.m.-3 p.m. Leave a voicemail if needed. Pre-Surgery Instructions: Medication Instructions acidophilus-pectin, citrus 100 million cell-10 mg capsule Stop taking 0 days prior to procedure albuterol (PROVENTIL HFA;VENTOLIN HFA) 90 mcg/actuation inhaler Take morning of procedure if needed albuterol (PROVENTIL,VENTOLIN) 2.5 mg /3 mL (0.083 %) nebulizer solution Take morning of procedure if needed baclofen (LIORESAL) 10 mg tablet Stop taking 0 days prior to procedure cranberry 500 mg capsule Stop taking 0 days prior to procedure esomeprazole (NexIUM) 40 mg capsule Take morning of procedure FeroSuL 325 mg (65 mg iron) tablet Stop taking 0 days prior to procedure fluticasone propionate (FLONASE) 50 mcg/actuation nasal spray Stop taking 0 days prior to procedure ibuprofen (ADVIL,MOTRIN) 800 mg tablet Stop taking 14 days prior to procedure lisinopril (PRINIVIL,ZESTRIL) 20 mg tablet Take morning of procedure methenamine (HIPREX) 1 gram tablet Stop taking 0 days prior to procedure senna (SENOKOT) 8.6 mg tablet Stop taking 0 days prior to procedure traMADoL (ULTRAM) 50 mg tablet Stop taking 0 days prior to procedure traZODone (DESYREL) 100 mg tablet Stop taking 0 days prior to procedure What to Expect Following Your Surgery After surgery you will be in the recovery room for approximately 1 hour before you are moved to your room. Please let your family and visitors know this. You may be in a bed that has a trapeze overhead to assist you with movement while in bed. After surgery you will have a Cartwright catheter in place (it is usually removed the first day after surgery after your first round of physical therapy has been completed), foot pumps on for circulation and prevention of blood clots, an IV, and possibly a INTERIOR DESIGN CONSULTANT pump and/or a NERVE BLOCK (both used for pain control). We will have you rate your pain on a scale from 0-10, with 10 being the highest possible pain level. We will NOT be able to get rid of ALL of your pain. We strive to keep you comfortable in the 3-5 range on the pain scale. PLEASE let your nurse know if your pain starts to creep up above a level of 5. We use a combination of IV medications, oral medications, ice, and elevation according to the doctor s orders in order to help keep your pain at a tolerable level. The first 24 hours after surgery are very busy! The doctor orders certain routine medications that are to be given up to every 4 hours along with breathing treatments and vital signs being assessed every 4 through the first night of your surgery in order to make sure that you are progressing as expected after surgery. This often makes it hard to sleep well the first night, but it is necessary to make sure that we are providing you the best care possible. We try to coordinate this care with each department in order to help you get as much uninterrupted sleep as possible. We also have earplugs and eye masks available by request to promote and enhance your sleep time. While here, you may see one of our Hospitalist physicians if your family doctor does not round on patients at [facility] to see you while you are here after surgery. Your orthopedic doctor will be directing all of your care and your discharge, but sometimes they need to consult with primary care/hospitalists in order to better serve you. Having the Hospitalists see you while in the hospital allows your primary care doctor to have more time in their offices, and the hospitalists will be in communication with your primary care doctor with updates on your care. Once discharged from the hospital, you will see your regular primary care physician as directed. While in the hospital [facility] who [facility] the hospital and they will start seeing you the morning after surgery. Therapy from your orthopedic doctor s office will begin seeing you once you are discharged from the hospital- they are not contracted to provide your treatment while you are in the hospital. You may have spoken with a information systems planner at your orthopedic doctor s office, but you will still review your discharge plan with our information systems planner from here at the hospital in order to make sure that you understand all of your options prior to going home or to a facility. How to Avoid an Infection after Your Surgery Your doctor will give you specific instructions, but remember: -ALWAYS wash hands before caring for your incision. -No picking, scratching, or rubbing your incision. -No creams, lotion, powder, rubbing alcohol or hydrogen peroxide on the incision (can harm the tissue and slow healing). -Your doctor will give you specific instructions for what type of dressing you will need and how often it will need changed for infection purposes. -No tight clothing on incision. -Do not allow anyone to touch your incision unless they are cleaning, checking, or redressing it (be sure they wash their hands first). -No contact of your incision with pets; avoid sleeping with pets. -Take full course of antibiotic if prescribed for you after surgery- do not stop unless directed to by your physician. You may also be given an antibiotic prior to your surgery to help prevent surgical site infections. -Eat a healthy and varied diet including proteins, fruits, and vegetables to help promote wound healing and keep blood sugars under control if you are diabetic. -Smoking slows the healing process by decreasing the amount of oxygen in your blood that is needed for tissue healing. Try to avoid or stop smoking if possible. LOOK at your incision each morning and each night to check the progress of healing. Some soreness, numbness, itching and/or mild bruising around the incision is normal. Call your doctor if you notice any of the following: -Increased redness or hardening around the incision area. -Increased pain at the incision site. -Incision feels hot to the touch. -Swelling or pulling apart of the incision edges. -Yellow or green drainage or foul odor coming from the incision. -Bleeding from the incision (apply pressure as needed). -Fever higher than 101 degrees Fahrenheit for more than 4 hours. SHOWERING: Your doctor will give you specific instructions, but remember: -Be careful getting into and out of the shower. -Showers should be quick (5 minutes or less). -Use a clean washcloth to gently wash your incision with soap and water and pat the area dry with a clean towel. -No re-using wash cloths or towels; get a fresh one to clean your incision. -Do not soak in the bathtub, go swimming or use a hot tub (Jacuzzi), or perform activities where your incision is submerged in water or exposed to any fluids or substances until instructed by your doctor. -If your have the sticky strips (steri-strips) over the incision, it is OK to shower with them. Do not remove them. Let them fall off on their own. If you have a question, call your doctor s office. Go to the follow-up appointment with your doctor. CHG wipes and surgical instructions reviewed. Patient verbalized understanding. documented in this encounter [facility] 04-11-2024 Nurse Note Preoperative Education Checklist- Joints/Spine Surgery date: 05/02/24 Surgery time: 0745 a.m. Arrival time: 0610 a.m. Return between 04/24-05/01/24 Mon-Fri 7 a.m.- 5p.m. to [facility] for your last blood test. 1. Bring a photo ID and your insurance card with you the day of surgery. You will check in at the main lobby of the [facility]- registration desk is straight ahead as soon as you walk in. Tell them you are here for surgery. 2. If you have a Living Will/Durable Power of Certified Respiratory Therapist for Health Care that is not on file here, please bring a copy the day of surgery. 3. Please shower/tub bath the night before surgery and use wipes as directed. Do not shower the morning of surgery- you will again use wipes when you arrive here at the hospital before getting into your surgical gown. Do not shave the area of your procedure for 2 days prior to your surgery. 4. NO powder, lotion, perfume/cologne, aftershave, make-up, deodorant, or hair products after you have bathed. 5. No nail zimbabwean/acrylic on at least one finger. If you are having a hand, wrist, foot, or leg surgery then ALL nail zimbabwean and artificial/acrylic nails MUST be removed from that hand or foot. 6. Avoid ALL Aspirin and non-steroidal anti-inflammatory drugs (Ibuprofen, Advil, Aleve, Excedrin, Meloxicam, Celebrex, fish/krill oil, etc.) for 7 days prior to surgery as instructed by your surgeon and/or prescribing doctor. Tylenol IS ALLOWED. If you are on Ticlid, Xarelto, Eliquis, Pradaxa, Plavix or Coumadin, please check with your prescribing doctor for instructions for when to stop them. 7. If you use an inhaler, continue to use it routinely. 8. Nothing to eat or drink (not even water, gum, mints, or hard candy!) AFTER midnight prior to your surgery. 7. Take only medications that you are instructed to on the morning of surgery with a TINY SIP OF WATER. 9. Choose a responsible adult that will be able to drive you home when you are discharged from your hospital stay for your surgery- no driving or operating any machinery for 24 hours after surgery. 10. When you dress for your appointment, please wear loose fitting clothing that is appropriate to accommodate your surgical area procedure. BRING WITH YOU ANY DEVICES YOU MAY NEED: MIRTHA hose, ice machine, sling/swath, brace or special shoe, crutches, oversized sup-up or button up shirt, CPAP machine if staying overnight. 11. Do NOT wear jewelry, watches, or any piercings or metal for surgery. 12. Do NOT wear contact lenses for surgery- glasses are okay if needed. 13. The anesthesiologist will talk with you the day of surgery and will ask you to sign a Consent Form. 14. Refrain from smoking or any type of tobacco use for at least 8 hours or marijuana for 24 hours prior to arrival for your surgery. 15. If a GREEN BLOOD band is given to you, please bring it with you for the day of surgery. 16. Notify your surgeon if you develop any illness before your surgery. 17. If you are staying overnight, please DO NOT BRING your home medications with your. 18. If you have any questions prior to surgery, please call the Preadmission Testing office at [phone] Mon.-Fri. 7 a.m.-3 p.m. Leave a voicemail if needed. Pre-Surgery Instructions: Medication Instructions acidophilus-pectin, citrus 100 million cell-10 mg capsule Stop taking 0 days prior to procedure albuterol (PROVENTIL HFA;VENTOLIN HFA) 90 mcg/actuation inhaler Take morning of procedure if needed albuterol (PROVENTIL,VENTOLIN) 2.5 mg /3 mL (0.083 %) nebulizer solution Take morning of procedure if needed baclofen (LIORESAL) 10 mg tablet Stop taking 0 days prior to procedure cranberry 500 mg capsule Stop taking 0 days prior to procedure esomeprazole (NexIUM) 40 mg capsule Take morning of procedure FeroSuL 325 mg (65 mg iron) tablet Stop taking 0 days prior to procedure fluticasone propionate (FLONASE) 50 mcg/actuation nasal spray Stop taking 0 days prior to procedure ibuprofen (ADVIL,MOTRIN) 800 mg tablet Stop taking 14 days prior to procedure lisinopril (PRINIVIL,ZESTRIL) 20 mg tablet Take morning of procedure methenamine (HIPREX) 1 gram tablet Stop taking 0 days prior to procedure senna (SENOKOT) 8.6 mg tablet Stop taking 0 days prior to procedure traMADoL (ULTRAM) 50 mg tablet Stop taking 0 days prior to procedure traZODone (DESYREL) 100 mg tablet Stop taking 0 days prior to procedure What to Expect Following Your Surgery After surgery you will be in the recovery room for approximately 1 hour before you are moved to your room. Please let your family and visitors know this. You may be in a bed that has a trapeze overhead to assist you with movement while in bed. After surgery you will have a Cartwright catheter in place (it is usually removed the first day after surgery after your first round of physical therapy has been completed), foot pumps on for circulation and prevention of blood clots, an IV, and possibly a INTERIOR DESIGN CONSULTANT pump and/or a NERVE BLOCK (both used for pain control). We will have you rate your pain on a scale from 0-10, with 10 being the highest possible pain level. We will NOT be able to get rid of ALL of your pain. We strive to keep you comfortable in the 3-5 range on the pain scale. PLEASE let your nurse know if your pain starts to creep up above a level of 5. We use a combination of IV medications, oral medications, ice, and elevation according to the doctor s orders in order to help keep your pain at a tolerable level. The first 24 hours after surgery are very busy! The doctor orders certain routine medications that are to be given up to every 4 hours along with breathing treatments and vital signs being assessed every 4 through the first night of your surgery in order to make sure that you are progressing as expected after surgery. This often makes it hard to sleep well the first night, but it is necessary to make sure that we are providing you the best care possible. We try to coordinate this care with each department in order to help you get as much uninterrupted sleep as possible. We also have earplugs and eye masks available by request to promote and enhance your sleep time. While here, you may see one of our Hospitalist physicians if your family doctor does not round on patients at [facility] to see you while you are here after surgery. Your orthopedic doctor will be directing all of your care and your discharge, but sometimes they need to consult with primary care/hospitalists in order to better serve you. Having the Hospitalists see you while in the hospital allows your primary care doctor to have more time in their offices, and the hospitalists will be in communication with your primary care doctor with updates on your care. Once discharged from the hospital, you will see your regular primary care physician as directed. While in the hospital you [facility] who work in the hospital and they will start seeing you the morning after surgery. Therapy from your orthopedic doctor s office will begin seeing you once you are discharged from the hospital- they are not contracted to provide your treatment while you are in the hospital. You may have spoken with a information systems planner at your orthopedic doctor s office, but you will still review your discharge plan with our information systems planner from here at the hospital in order to make sure that you understand all of your options prior to going home or to a facility. How to Avoid an Infection after Your Surgery Your doctor will give you specific instructions, but remember: -ALWAYS wash hands before caring for your incision. -No picking, scratching, or rubbing your incision. -No creams, lotion, powder, rubbing alcohol or hydrogen peroxide on the incision (can harm the tissue and slow healing). -Your doctor will give you specific instructions for what type of dressing you will need and how often it will need changed for infection purposes. -No tight clothing on incision. -Do not allow anyone to touch your incision unless they are cleaning, checking, or redressing it (be sure they wash their hands first). -No contact of your incision with pets; avoid sleeping with pets. -Take full course of antibiotic if prescribed for you after surgery- do not stop unless directed to by your physician. You may also be given an antibiotic prior to your surgery to help prevent surgical site infections. -Eat a healthy and varied diet including proteins, fruits, and vegetables to help promote wound healing and keep blood sugars under control if you are diabetic. -Smoking slows the healing process by decreasing the amount of oxygen in your blood that is needed for tissue healing. Try to avoid or stop smoking if possible. LOOK at your incision each morning and each night to check the progress of healing. Some soreness, numbness, itching and/or mild bruising around the incision is normal. Call your doctor if you notice any of the following: -Increased redness or hardening around the incision area. -Increased pain at the incision site. -Incision feels hot to the touch. -Swelling or pulling apart of the incision edges. -Yellow or green drainage or foul odor coming from the incision. -Bleeding from the incision (apply pressure as needed). -Fever higher than 101 degrees Fahrenheit for more than 4 hours. SHOWERING: Your doctor will give you specific instructions, but remember: -Be careful getting into and out of the shower. -Showers should be quick (5 minutes or less). -Use a clean washcloth to gently wash your incision with soap and water and pat the area dry with a clean towel. -No re-using wash cloths or towels; get a fresh one to clean your incision. -Do not soak in the bathtub, go swimming or use a hot tub (Jacuzzi), or perform activities where your incision is submerged in water or exposed to any fluids or substances until instructed by your doctor. -If your have the sticky strips (steri-strips) over the incision, it is OK to shower with them. Do not remove them. Let them fall off on their own. If you have a question, call your doctor s office. Go to the follow-up appointment with your doctor. [facility] 04-11-2024 Nurse Note CHG wipes and surgical instructions reviewed. Patient verbalized understanding. [facility] 02-23-2024 Telephone encounter Note Education & Information on Support Services Provided Patient's name appears on the PRO [place]ig Report for a NCCN score of 10. YORDY contacted Patient who reports that she is experiencing situation distress. Patient is scheduled for a hip replacement in April. In the meantime, she is experiencing pain and limited mobility. Patient has a planned vacation in March to [place] that she is concerned about how she will feel. SW provided active listening. Patient denied any immediate psychosocial needs or concerns. EDUAR Carmona [facility] 02-23-2024 Miscellaneous Notes Education & Information on Support Services Provided Patient's name appears on the PRO T[place]ig Report for a NCCN score of 10. SW contacted Patient who reports that she is experiencing situation distress. Patient is scheduled for a hip replacement in April. In the meantime, she is experiencing pain and limited mobility. Patient has a planned vacation in March to [place] that she is concerned about how she will feel. SW provided active listening. Patient denied any immediate psychosocial needs or concerns. EDUAR Carmona documented in this encounter [facility] 02-21-2024 Telephone encounter Note If in agreement, please place order for CT scan. Thank you! Brandie Truong [facility] 02-21-2024 Miscellaneous Notes If in agreement, please place order for CT scan. Thank you! Brandie Truong documented in this encounter [facility] 02-21-2024 Miscellaneous Notes Please send recent Ct chest images to Dr Sawyer's office. Thank you documented in this encounter [facility] 02-21-2024 Telephone encounter Note Please send recent Ct chest images to Dr Sawyer's office. Thank you [facility] 02-21-2024 Nurse Note Patient is in a lot of pain due to left hip, she is going to have a hip replacement. Desiree Connors MA [facility] 02-21-2024 Nurse Note Patient is in a lot of pain due to left hip, she is going to have a hip replacement. Desiree Connors MA documented in this encounter [facility] 02-21-2024 History of Present illness Narrative Images from the original note were not included. NAME: Jessica Ferrera CLINIC NO.: [id number] DATE OF SERVICE: February 21, 2024 (Donald) Some elements in this clinic note that are critical to medical decision making have been carefully reviewed and included from a prior clinic note dated: August 23, 2023 (Andra) CHIEF COMPLAINT: Followup for anemia ASSESSMENT: (D50.8) Iron deficiency anemia secondary to inadequate dietary iron intake (primary encounter diagnosis) (R91.8) Lung nodules Iron deficiency With anemia - improving. Stable. Responding to oral iron replacement ferrous sulfate 325 mg either to be taken twice a day or once every other day. Now at Hgb of 13.3 g/dL Pulmonary nodule is stable - since 03/2022 and is going to be following with pulmonary medicine soon. Flow cytometry with no evidence of CLL - (elevated lymphocyte count). PLAN: RTC in [address] chest if not ordered/completed by pulmonary. Will send images pulmonary medicine. ([facility]) Labs, same day to include anemia labs. HPI: [...] 04/2017 - platelets were 263,000. Updated Visit, February 21, 2024: Jessica Ferrera returns for a 6-month follow-up. She is scheduled to have a left hip replacement on 05/[address] Pedro. She has had some intentional weight loss. She had to decrease her BMI and was started on Adipex. She continues to follow with [facility]. ([facility]) She has chronic bronchitis. She currently denies cough, shortness of breath and other pulmonary complaints. No fevers, chills, night sweats or signs/symptoms of infection. She has a history of chronic UTIs and is on long-term medication. She denies any abnormal bleeding. Some bruising likely from her medications and or using tape. She denies any palpable lumps or bumps. Overall, she is doing fairly well despite her left hip pain. Updated Visit, August 23, 2023: Doing well. Flow was negative for lymphoproliferative disorder.has been on iron 3 days / week. Anemia improved. Getting her hip replacement and is trying to lose weight to optimize her outcome. Traveling to [facility] soon and then [place]. Updated Visit, July 08, 2023: Jessica returns [...] with their relationship. She is going to [facility] and [place] later this year, hopefully after her hip replacement. Updated Visit, October 07, 2022: Leaving for [facility] next week. Has all of her [...] in concerned with recent CT done in [facility] with a left 8 mm [...] deviated septum noted low platelets. Colonoscopy in [place] 2016 with many polyps, recommended repeat. Colonoscopy in 2017 in [place]. [facility] Clinical Note Previous notes reviewed today in [...] with more than 50% of the total [id number] time of the visit in counseling / coordination of care. Yo Morse MD, MS Mechanical Development Engineerrig mechanic Hematology and Medical Oncology [address] [place], [place] [id number] Labs and Imaging Reviewed outside records provided prior to this visit and those in [facility]. as diagnosed by Dr. Morse [facility]. No evidence of a paraprotein. Negative [...] 5 miles per day. Had trip to [place] in November for chest pain. March 01, [...] PERFORMANCE STATUS: 0 PHYSICAL EXAMINATION: Vitals: BP 150/91 Pulse 82 Temp (Src) 97.7 (Temporal) Resp 16 Ht 5' 4.016 (1.63m) Wt 227 lb 11.8 oz (103.3kg) SpO2 100% BMI 39.07 kg/(m^2). Body surface area is 2.16 meters squared. Exam limited to gross visualization [...] Other: See Comments Burning of skin Nitrofurantoin [facility]* GI Upset, Hives, Itching, Rash, Swelling Penicillins Rash Negative skin testing in allergy clinic 09/13/2023, but developed pruritus after step 1 of challenge. See note for full details. Skin Cleanser Combi* Unknown MEDICATIONS: azelastine 0.1% nasal spray Use 2 Sprays in each nostril two times a day. albuterol HFA (PROVENTIL HFA, VENTOLIN HFA) 90 [...] mouth. LABORATORY VALUES: WBC (k/uL) Date Value 02/17/2024 6.11 RBC (m/uL) Date Value 02/17/2024 4.31 Hemoglobin (g/dL) Date Value 02/17/2024 13.3 Hematocrit (%) Date Value 02/17/2024 39.2 MCV (fL) Date Value 02/17/2024 91.0 MCH (pg) Date Value 02/17/2024 30.9 MCHC (g/dL) Date Value 02/17/2024 33.9 RDW-CV (%) Date Value 02/17/2024 14.0 Platelet Count (k/uL) Date Value 02/17/2024 223 MPV (fL) Date Value 02/17/2024 10.1 Glucose (mg/dL) Date Value 02/17/2024 105 (H) BUN (mg/dL) Date Value 02/17/2024 21 Creatinine (mg/dL) Date Value 02/17/2024 0.90 Sodium (mmol/L) Date Value 02/17/2024 143 Potassium (mmol/L) Date Value 02/17/2024 4.1 Chloride (mmol/L) Date Value 02/17/2024 110 (H) CO2 (mmol/L) Date Value 02/17/2024 24 Protein, Total (g/dL) Date Value 02/17/2024 6.4 Albumin (g/dL) Date Value 02/17/2024 4.1 Calcium, Total (mg/dL) Date Value 02/17/2024 9.4 Alkaline Phosphatase (U/L) Date Value 02/17/2024 80 Bilirubin, Total (mg/dL) Date Value 02/17/2024 0.3 AST (U/L) Date Value 02/17/2024 17 ALT (U/L) Date Value 02/17/2024 14 DIAGNOSIS: (D50.8) Iron deficiency anemia secondary to inadequate dietary iron intake (primary encounter diagnosis) (R91.8) Lung nodules PAST MEDICAL HISTORY Diagnosis Date Blood clotting [...] Cystoscopy; Dr. Lombardo; Leanne KENDALL [facility]ERY HX Left HYSTERECTOMY HX 1994 left overy and hysterectomy. ROTATOR CUFF REPAIR 2013,2014 Left x 2 SHOULDER SURGERY HX Right TONSILLECTOMY HX TONSILLECTOMY HX Social History Tobacco Use Smoking status: Never Smokeless tobacco: Never Vaping Use Vaping status: Never Used Substance Use Topics Alcohol use: [...] which included preparing to see the patient, [id number]-[id number] patient care, completing clinical documentation, performing a medically appropriate examination, counseling and educating the patient/family/caregiver, ordering medications, tests, or procedures, and independently interpreting results (not separately reported). Preethi Ibarra APRN.AUGUSTIN Hematology and Oncology Services Provided at: [facility], [place], [place] CC: Ricardo Hooper MD [address] [facility] [id number] documented in this encounter [facility] 02-21-2024 Note HNO ID: [id number] Author: PREETHI IBARRA APRN.AUGUSTIN Service: ? Author Type: Nurse Practitioner Type: Progress Notes Filed: 02/21/2024 10:02 Note Text: NAME: Jessica Ferrera CLINIC NO.: [id number] DATE OF SERVICE: February 21, 2024 (Donald) Some elements in this clinic note that are critical to medical decision making have been carefully reviewed and included from a prior clinic note dated: August 23, 2023 (Andra) CHIEF COMPLAINT: Followup for anemia ASSESSMENT: (D50.8) Iron deficiency anemia secondary to inadequate dietary iron intake (primary encounter diagnosis) (R91.8) Lung nodules Iron deficiency With anemia - improving. Stable. Responding to oral iron replacement ferrous sulfate 325 mg either to be taken twice a day or once every other day. Now at Hgb of 13.3 g/dL Pulmonary nodule is stable - since 03/2022 and is going to be following with pulmonary medicine soon. Flow cytometry with no evidence of CLL - (elevated lymphocyte count). PLAN: RTC in [address] chest if not ordered/completed by pulmonary. Will send images pulmonary medicine. [facility]) Labs, same day to include anemia labs. HPI: [...] 04/2017 - platelets were 263,000. Updated Visit, February 21, 2024: Jessica Ferrera returns for a 6-month follow-up. She is scheduled to have a left hip replacement on 05/[address] Pedro. She has had some intentional weight loss. She had to decrease her BMI and was started on Adipex. She continues to follow with [facility]. ([facility]) She has chronic bronchitis. She currently denies cough, shortness of breath and other pulmonary complaints. No fevers, chills, night sweats or signs/symptoms of infection. She has a history of chronic UTIs and is on long-term medication. She denies any abnormal bleeding. Some bruising likely from her medications and or using tape. She denies any palpable lumps or bumps. Overall, she is doing fairly well despite her left hip pain. Updated Visit, August 23, 2023: Doing well. Flow was negative for lymphoproliferative disorder.has been on iron 3 days / week. Anemia improved. Getting her hip replacement and is trying to lose weight to optimize her outcome. Traveling to [facility] soon and then [place]. Updated Visit, July 08, 2023: Jessica returns today. Ferratin is low today but she stopped her oral iron - restarted last week. Platelets are stable. Lymphocyte count is elevated, may need to consider flow cytomet (more content not included)... [facility] 02-09-2024 History of Present illness Narrative Images from the original note were not included. hisHISTORY OF PRESENT ILLNESS: EST PT Jessica Ferrera is an 68 y.o. @ female. EST PT WITH FLARE UP LT KNEE PAIN ~2WKS- PT NOTES PAIN OFF AND ON PRIOR TO RECENT ONSET-NO NEW INJURY- PT NOT SURE IF PAIN IS FROM OVER COMPENSATING FOR LT HIP PAIN XRAY LT KNEE TODAY EPIC 02/09/24 XRAYS 06/09/21 NO BONE SCAN HX B/L TKA'S 2011 - DR. PEDRO PAIN ANTERIOR/LATERAL- +SWELLING- +INSTABILITY- USING CANE TO AMBULATE- FEEL'S LIKE SOMETHING IS SLIPPING - +IBUPROFEN 800MG TID/TYLENOL ARTHRITIS BID- PT IS SCHEDULED TO SCHEDULED TO SEE [facility] TOMORROW PT IS SCHEDULED FOR LT VERONA 05/02/24 ALLERGIES: Allergies Allergen Reactions Penicillins Shortness of breath Other Reaction(s): TROUBLE BREATHING Tioconazole Itching and Unknown Other Reaction(s): vaginal burning Burning of skin Ciprofloxacin GI intolerance Other Reaction(s): Breathing, Joint pain Levofloxacin Swelling Other Reaction(s): Joint swelling, Myalgia Joint pain Miconazole Unknown Nirmatrelvir-Ritonavir GI intolerance Clindamycin/Lincomycin Unknown, Nausea Only and GI intolerance Doxycycline GI intolerance, Nausea And Vomiting and Unknown Other Reaction(s): Unknown Reaction Nitrofurantoin GI intolerance, Hives, Itching, Rash and Swelling Nitrofurantoin Macrocrystal Rash HOME MEDICATIONS: Current Outpatient Medications Medication Instructions Azelastine HCl 137 MCG/SPRAY solution SPRAY 2 SPRAYS INTO EACH NOSTRIL TWICE A DAY baclofen (LIORESAL) 10 mg, Oral Cranberry 250 MG capsule esomeprazole (NEXIUM) 40 mg, Oral, Daily before breakfast estradiol (Estrace) 0.1 MG/GM vaginal cream Vaginal ferrous sulfate 325 mg, Oral, Daily with breakfast fluconazole (Diflucan) 150 MG tablet As needed fluticasone (Flonase) 50 MCG/ACT nasal spray USE 1 SPRAY IN EACH NOSTRIL TWICE DAILY NEEDED FLUTICASONE PROPIONATE, INHAL, IN Nasal ibuprofen 800 MG tablet Lactobacillus (Acidophilus Probiotic) 0.5 MG tablet levocetirizine (XYZAL) 2.5 mg, Oral, Every evening lisinopril 20 mg, Oral, Daily RT methenamine hippurate (Hiprex) 1 g tablet 1 tablet, Oral, 2 times daily with meals mometasone (Nasonex) 50 MCG/ACT nasal spray 2 sprays Multiple Vitamin (Daily Vitamin) tablet 1 tablet, Oral, Daily nystatin-triamcinolone (Mycolog II) ointment Topical, 2 times daily phentermine (ADIPEX-P) 37.5 mg, Oral, Daily before breakfast sennosides (SENOKOT) 8.6 mg, Oral, Daily RT traMADol (Ultram) 50 MG tablet TAKE 1 TABLET BY MOUTH ONCE TO TWICE A DAY NEEDED FOR 7 DAYS traZODone (DESYREL) 100 mg, Oral, Nightly triamcinolone (Kenalog) 0.1 % cream Topical, 2 times daily PHYSICAL EXAM: Knee Musculoskeletal Exam Gait Gait is normal. Inspection Leg length disparity: no discrepancy Left Erythema: none Effusion: none Edema: none Ecchymosis: none Deformity: none Alignment: normal Previous incision: anterior Incision: well-healed Palpation Left Left knee palpation is unremarkable. Increased warmth: none Masses: none Tenderness: present Tenderness comment: lateral femoral condyle, distal IT band. Range of Motion Left Left knee range of motion is normal and full. Strength Left Left knee strength is normal. Extension: 5/5. Flexion: 5/5. Instability Left Instability signs: none - stable Varus stress grade: normal Valgus stress grade: normal Neurovascular Left Left knee neurovascular exam is normal. Pulses - PT: normal Posterior tibial: 2+ Capillary refill: warm and well-perfused Special Signs Left Left knee special signs are normal. Patellar apprehension: none General Constitutional: appears stated age Labored breathing: no Psychiatric: normal mood and affect Neurological: alert Skin: intact Lymphadenopathy: none Vitals: There is no height or weight on file to calculate BMI. Tobacco Use: Low Risk (02/02/2024) Patient History Smoking Tobacco Use: Never Smokeless Tobacco Use: Never Passive Exposure: Not on file Alcohol Use: Not At Risk (01/05/2024) AUDIT-C Frequency of Alcohol Consumption: Monthly or less Average Number of Drinks: 1 or 2 Frequency of Binge Drinking: Never IMAGING: Procedures Orders Placed This Encounter Procedures XR knee 1 or 2 views left Order Specific Question: Views Answer: AP Order Specific Question: Views Answer: Lateral Order Specific Question: Reason for exam: Answer: PAIN ASSESSMENT: ICD-10-CM 1. Acute pain of left knee M25.562 XR knee 1 or 2 views left 2. History of total left knee replacement Z96.652 PLAN: Xrays unremarkable. Pain possible from IT band/ tendon friction to lateral femoral condyle, vs referred pain from hip. ( Scheduled for replacement) - recommend Ice, topicals and massage.. pt relieved xray look ok. Will call if symptoms worsen or change in interim Questions answered in laymen terms at the bedside. The diagnosis, home exercise plan and any ongoing restrictions/ recommendations reviewed. If unable to be reached in office, I recommend evaluation at nearest Emergency Room if any symptoms worsened or new symptoms develop for requiring urgent evaluation. documented in this encounter [facility] 02-02-2024 History of Present illness Narrative HISTORY OF PRESENT ILLNESS: EST PT Jessica Ferrera is an 68 y.o. @ female. (EST PT ; LAST APPT W/ [facility]) RECHECK (L) HIP ; S/P PREDNISONE TAPER 12/30/23 (4WKS 6DAYS) XRAYS DONE TODAY, 02/02/24 IN EPIC MRI, 06/30/23 @ [facility] MRI, ARTHROGRAM 01/14/21 @ [facility] (L) LE EMG 07/27/23 @ [facility] DEXA SCAN 08/06/21 @ [facility] S/P PREDNISONE 12/30/23 S/P IA CORTISONE INJ 12/22/23, 07/14/23, 01/14/21 @ [facility] S/P PHYSICAL THERAPY @ [facility] CHARLY (LOWER BACK) ; FEB 2023 - MAR 2023 CURRENT PAIN MGMT ; [facility] FORMER PAIN MGMT ; DR FERREIRA STATES SHE ONLY TOOK HALF OF THE PREDNISONE TAPER - DENIES ANY RELIEF. CONTINUES TO HAVE CONSTANT DISCOMFORT IN HER (L) HIP / GROIN - PROGRESSIVELY GETTING WORSE ; HAS STARTED TO USE CANE. STATES HER HIP IS NOW STARTING TO EFFECT HER (L) KNEE AND LOWER BACK. NOTES FULL / PAINFUL ROM ; SOME WEAKNESS. CONTINUES TO TAKE IBUPROFEN / MUSCLE RELAXER - DENIES RELIEF. PREVIOUS (R) VERONA 06/05/17 ; B/L TKA 2011 ; (R) SHOULDER SCOPE 2019 - DR PEDRO ALLERGIES: Allergies Allergen Reactions Penicillins Shortness of breath Other Reaction(s): TROUBLE BREATHING Tioconazole Itching and Unknown Other Reaction(s): vaginal burning Burning of skin Ciprofloxacin GI intolerance Other Reaction(s): Breathing, Joint pain Levofloxacin Swelling Other Reaction(s): Joint swelling, Myalgia Joint pain Miconazole Unknown Nirmatrelvir-Ritonavir GI intolerance Clindamycin/Lincomycin Unknown, Nausea Only and GI intolerance Doxycycline GI intolerance, Nausea And Vomiting and Unknown Other Reaction(s): Unknown Reaction Nitrofurantoin GI intolerance, Hives, Itching, Rash and Swelling Nitrofurantoin Macrocrystal Rash HOME MEDICATIONS: Current Outpatient Medications Medication Instructions Azelastine HCl 137 MCG/SPRAY solution SPRAY 2 SPRAYS INTO EACH NOSTRIL TWICE A DAY baclofen (LIORESAL) 10 mg, Oral Cranberry 250 MG capsule esomeprazole (NEXIUM) 40 mg, Oral, Daily before breakfast estradiol (Estrace) 0.1 MG/GM vaginal cream Vaginal ferrous sulfate 325 mg, Oral, Daily with breakfast fluconazole (Diflucan) 150 MG tablet As needed fluticasone (Flonase) 50 MCG/ACT nasal spray USE 1 SPRAY IN EACH NOSTRIL TWICE DAILY NEEDED FLUTICASONE PROPIONATE, INHAL, IN Nasal ibuprofen 800 MG tablet Lactobacillus (Acidophilus Probiotic) 0.5 MG tablet levocetirizine (XYZAL) 2.5 mg, Oral, Every evening lisinopril 20 mg, Oral, Daily RT methenamine hippurate (Hiprex) 1 g tablet 1 tablet, Oral, 2 times daily with meals mometasone (Nasonex) 50 MCG/ACT nasal spray 2 sprays Multiple Vitamin (Daily Vitamin) tablet 1 tablet, Oral, Daily nystatin-triamcinolone (Mycolog II) ointment Topical, 2 times daily phentermine (ADIPEX-P) 37.5 mg, Oral, Daily before breakfast sennosides (SENOKOT) 8.6 mg, Oral, Daily RT traMADol (Ultram) 50 MG tablet TAKE 1 TABLET BY MOUTH ONCE TO TWICE A DAY NEEDED FOR 7 DAYS traZODone (DESYREL) 100 mg, Oral, Nightly triamcinolone (Kenalog) 0.1 % cream Topical, 2 times daily PHYSICAL EXAM: Hip Musculoskeletal Exam Gait Antalgic: left Limp: left Trendelenburg: left Abductor lurch: left Circumduction: left Assistive device: cane Inspection Leg length disparity: right greater than [...] rotation: positive Vitals: Body mass index is 38.45 kg/m . Tobacco Use: Low Risk (02/02/2024) Patient History Smoking Tobacco Use: Never Smokeless Tobacco Use: Never Passive Exposure: Not on file Alcohol Use: Not At Risk (01/05/2024) AUDIT-C Frequency of Alcohol Consumption: Monthly or less Average Number of Drinks: 1 or 2 Frequency of Binge Drinking: Never IMAGING: XR hip left 2 or 3 views Imaging Result: AP and lateral of left hip showed femoral head to be well centered in the acetabulum without evidence of fracture or dislocation. There was some spurring at the inferior medial aspect of the femoral acetabular junction. There was global decrease in joint space height. There was no acute bony process including but not limited to, fracture and/or dislocation. Impression mild degenerative joint disease, left hip Procedures Orders Placed This Encounter Procedures XR hip left 2 or 3 views Order Specific Question: Reason for exam: Answer: PAIN ASSESSMENT: ICD-10-CM 1. Primary osteoarthritis of left hip M16.12 2. Acute hip pain, left M25.552 XR hip left 2 or 3 views PLAN: We have answered all the patients [...] scribe for Dr. Pedro/wendy, PLAN: We have discussed (L) hip xrays with patient at bedside. After examination of her left hip today we have discussed both surgical and nonsurgical intervention, with the risks and benefits of both. Patient is requesting a (L) VERONA as the pain is affecting her ADL's - unable to ambulate prolong period of time. We will have to hold off until at least 03/23 secondary to IA injection 12/21. She is requesting to hold off on sx until first april secondary to [place] vacation in March. Patient is requesting to proceed with sx at [facility]. We have discussed her HEP and restrictions and will see her back on the day of sx. Surgery - (L) VERONA We have discussed both surgical and nonsurgical treatment options with the patient at length and the risks and benefits associated with both. The patient is requesting surgical intervention because they have not responded to outpatient treatment options including but not limited to rest ice, and home exercise program. Pain and decreased range of motion are affecting the patient''s ability to sleep and activities of daily living and we have recommended surgical intervention. We recommended surgery in the form of a total hip arthroplasty. Factors including the patient's age and longevity of prosthesis, usual postoperative course, and possible need for revision in the future, and leg length inequality postoperatively were discussed at length. We have discussed with the patient that this is a major orthopedic procedure. We discussed that the patient may require more than the average 30 MED limited and may require greater than 7 days narcotic treatment postoperatively. Therefore, patient's narcotic usage will be tailored on an individual basis. If this patient at the time of surgery has any of the following: Morbidities including but not limited to history of falling, cognitive impairment, BMI greater than 30, end-stage renal disease, respiratory failure, heart failure, kidney failure, liver failure, diabetes, cardiac event in the last year, sleep apnea, disorder, excessive tobacco use, if at the time of surgery the patient is greater than 80 years old, or the patient requires discharge to a assisted facility, the patient may require to have additional inpatient hospital stay days following the surgery. Physical therapy is contraindicated in this patient''s case because of the pumj-ie-hxqf articulation of the patient's hip. Salima Pedro D.O. documented in this encounter [facility] 10-14-2023 Telephone encounter Note Spoke to Ms [...] Jenni Cardenas MD, PhD Staff, Infectious Disease [facility] Office [phone] [facility] Work Phone: 10-14-2023 Miscellaneous Notes Spoke to [...] Jenni Cardenas MD, PhD Staff, Infectious Disease [facility] Office [phone] documented in this encounter [facility] 10-04-2023 Miscellaneous Notes Jessica called to cancel her procedure and follow up appointment. She reports that Dr Pedro does not want her to have any injections in her Sacroilac Joint at this time. She will return when Dr Pedro or her PCP feel she needs Pain Management services documented in this encounter [facility] 10-04-2023 Telephone encounter Note Jessica called to cancel her procedure and follow up appointment. She reports that Dr Pedro does not want her to have any injections in her Sacroilac Joint at this time. She will return when Dr Pedro or her PCP feel she needs Pain Management services [facility] 08-30-2023 Instructions Ernie Ayers MD - 08/30/2023 [...] would be recommended. documented in this encounter [facility] 08-30-2023 Note HNO ID: [id number] Author: ERNIE AYERS MD Service: ? Author [...] 0 mm F = 0 mm Beech, Ghanaian 1:20 P: W = 0 mm F = 0 mm Birch Mix 1:20 P: W = 0 mm F = 0 mm Maple Mix 1:20 P: W = 0 mm F = 0 mm [place] ,Eastern 1:20 P: W = 0 mm F = 0 mm [place], Shagbark 1:20 P: W = 0 mm F = 0 mm [place] Tree, Red 1:20 P: W = 0 mm F = 0 mm Rising Sun, Red 1:20 P: W = 0 mm F = 0 mm [place], Ghanaian/Eastern 1:20 P: W = 4 mm F = 6 mm [place] Pollen, Black 1:20 P: W = 7 mm F = 15 mm [place], Black 1:20 P: W = 0 mm F = 0 mm Bermuda Grass 10,000 BAU/ml P : W = 3 mm F = 6 mm [place], Blue/Aminata 100,000 BAU/ml P: W = 0 mm F = 0 mm Fesc[place], [place] 100,000 BAU/ml P: W = 0 mm F = 0 mm Hugo Grass 1:20 P: W = 0 mm F = 0 mm Orchard Grass 100,000 BAU/ml P: W = 7 mm F = 18 mm Perennial [place], 100,000 BAU/ml P: W = 0 mm F = 0 mm Varinder 100,000 BAU/ml P: W = 0 mm F = 0 mm Cocklebur 1:20 P: W = 3 mm F = 6 mm [place], sheep 1:20 P: W = 4 mm F = 8 mm Plantain, Filipino 1:20 P: W = 5 mm F [...] = 0 mm PENICILLIN GK 10,000 UNITS/ML [facility] 9546-6201-12 Lot #[id number] Exp 02/2024 Reconsit. Exp 150 P: W = 0 mm F = 0 mm ID: W = 0 mm F = 0 mm PREPEN -(benzylpenicilloyl polylysine) full strength Allerquest [facility] 34337-066-64 Lot# [id number] Exp 09/22 Reconsit Exp 150 P: W = 0 mm F = 0mm ID: W = 0 mm F = 0 mm AMPICILLIN SODIUM 12.5mg/ml [facility] [id number] Lot [id number] Exp 01/2025 Reconsit Exp 1356 P: W [...] 25mg p.o per Dr. Ayers. Lot no. [id number], Exp. 09/10/2023, TIME:1430, ND: 0120-1397-40 Plan Examiner: Hikma 1543 Patient c/o left eye itching- [...] appearing on neck. Will continue to monitor. 165 Patie (more content not included)... [facility] 08-30-2023 History of Present illness Narrative INHALANT [...] 0 mm F = 0 mm Beech, Ghanaian 1:20 P: W = 0 mm F = 0 mm Birch Mix 1:20 P: W = 0 mm F = 0 mm Maple Mix 1:20 P: W = 0 mm F = 0 mm [place] ,Eastern 1:20 P: W = 0 mm F = 0 mm [place], Shagbark 1:20 P: W = 0 mm F = 0 mm [place] Tree, Red 1:20 P: W = 0 mm F = 0 mm Rising Sun, Red 1:20 P: W = 0 mm F = 0 mm [place], Ghanaian/Eastern 1:20 P: W = 4 mm F = 6 mm [place] Pollen, Black 1:20 P: W = 7 mm F = 15 mm [place], Black 1:20 P: W = 0 mm F = 0 mm Berm[place] Grass 10,000 BAU/ml P : W = 3 mm F = 6 mm [place], /October 100,000 BAU/ml P: W = 0 mm F = 0 mm Fescue, [place] 100,000 BAU/ml P: W = 0 mm F = 0 mm Huog Grass 1:20 P: W = 0 mm F = 0 mm Orchard Grass 100,000 BAU/ml P: W = 7 mm F = 18 mm Perennial [place], 100,000 BAU/ml P: W = 0 mm F = 0 mm Varinder 100,000 BAU/ml P: W = 0 mm F = 0 mm Cocklebur 1:20 P: W = 3 mm F = 6 mm [place], sheep 1:20 P: W = 4 mm F = 8 mm Plantain, Filipino 1:20 P: W = 5 mm F [...] RN and Judy Arias RN Interpreted By: Ernei Ayers M.D. * Clinical significant reactions are [...] = 0 mm PENICILLIN GK 10,000 UNITS/ML [employer]alt[employer] [facility] 5190-3372-51 Lot #[id number] Exp 02/2024 Reconsit. Exp 150 P: W = 0 mm F = 0 mm ID: W = 0 mm F = 0 mm PREPEN -(benzylpenicilloyl polylysine) full strength Allerquest [facility] 63543-040-65 Lot# [id number] Exp 09/22 Reconsit Exp 1502 P: W = 0 mm F = 0mm ID: W = 0 mm F = 0 mm AMPICILLIN SODIUM 12.5mg/ml [facility] [id number] Lot [id number] Exp 01/2025 Reconsit Exp 1356 P: W [...] 25mg p.o per Dr. Ayers. Lot no. [id number], Exp. 09/10/2023, TIME:1430, NDC: 5171-5979-08 Plan Examiner: Biotherapeuticslatanya 1543 Patient c/o left eye itching- no [...] from the original note were not included. [facility] ALLERGY & IMMUNOLOGY CONSULT Patient Name: Jessica Ferrera PRIMARY CARE PHYSICIAN: Ricardo Hooper MD REASON FOR CONSULT: [facility] allergy REQUESTING PHYSICIAN: Jenni Cardenas MD My final recommendations will be communicated to the requesting health care provider by way of the shared medical record for internal providers or letter via the [employer] for external providers. CHIEF COMPLAINT: [...] joint pain Chronic rhinitis - Symptoms began 2017. - Symptoms include: sinus pressure. +runny nose, [...] cat(s)x4 Mite Proof Covers: No Bedrm Carpet Uhsf-he-Bjrm: Yes A/C: Central Hobbies: +baking, traveling, gardening [...] Cystoscopy; Dr. Lombardo; Leanne KENDALL [facility] EL[facility]OW SURGERY HX Left HYSTERECTOMY HX 1995 [...] Other: See Comments Burning of skin Nitrofurantoin [facility]* GI Upset, Hives, Itching, Rash, Swelling Penicillins [...] - 4.00 k/uL 3.[address] [facility] <0.87 k/uL 0.66 0.96 0.79 Abs Eosin [...] Ayers MD MPH documented in this encounter [facility] 08-30-2023 Note HNO ID: [id number] Author: ERNIE AYERS MD Service: ? Author Type: Physician Type: Progress Notes Filed: 09/13/2023 12:35 Note Text: [facility] ALLERGY AND IMMUNOLOGY CONSULT Patient Name: Jessica Ferrera PRIMARY CARE PHYSICIAN: Ricardo Hooper MD REASON FOR CONSULT: PCN allergy REQUESTING PHYSICIAN: Jenni Cardenas MD My final recommendations will be communicated to the requesting health care provider by way of the shared medical record for internal providers or letter via the [employer] for external providers. CHIEF COMPLAINT: [...] to the hospital. Only remembers being observed, ?herveryl. Was not a life threatening situation, but [...] joint pain Chronic rhinitis - Symptoms began 2017. - Symptoms include: sinus pressure. +runny nose, [...] cat(s)x4 Mite Proof Covers: No Bedrm Carpet Gwup-da-Bfih: Yes A/C: Central Hobbies: +baking, traveling, gardening [...] Cystoscopy; Dr. Lombardo; Leanne REJ [facility] EL[facility]OW SURGERY HX Left HYSTERECTOMY HX 1995 [...] Other: See Comments Burning of skin Nitrofurantoin [facility]* GI Upset, Hives, Itching, Rash (more content not included)... [facility] 08-24-2023 History of Present illness Narrative [facility] [address] [place] [address] Patient: Jessica Ferrera Sex: female : 1955 Age: 67 y.o. PCP: RICARDO HOOPER MD 08/24/2023 Jessica Ferrera is here for a(n) follow up for her left hip and SI joint pian. Patient reports she had a steroid injection in her left hip the end of Feb with mild relief. She also reports she had lumbar spine surgery with Dr. Ching since her last visit. Chief Complaint Patient presents with Hip Pain HPI: Right hip injection 07/2023 at [facility] w/ fluro Physical Therapy at [facility] in [place] July 2022 with no help and made [...] Performed by Salima Pedro Jr., DO at [facility] ARTHROSCOPY SHOULDER Right 08/15/2019 Performed by Salima Pedro Jr., DO at [facility] BACK SURGERY 2017 Cyst removal - done while living in [place] CARPAL TUNNEL RELEASE Bilateral ELBOW ARTHROSCOPY HYSTERECTOMY INJECTION BLOCK SACROILIAC JOINT Left 10/02/2022 Performed by Enmanuel Ferreira MD at [facility] INJECTION BLOCK SACROILIAC JOINT Left 07/31/2022 Performed by Enmanuel Ferreira MD at [facility] INJECTION LARGE JOINT BURSA Right Hip Joint Right 03/19/2017 Performed by Enmanuel Ferreira MD at [facility] JOINT REPLACEMENT Bilateral knees JOINT REPLACEMENT Left hip LAPAROSCOPIC ENDOMETRIOSIS FULGURATION REPLACEMENT TOTAL JOINT HIP Right 06/05/2017 Performed by Jr Salima Pedro DO at [facility] TOTAL KNEE BILATERAL ROTATOR CUFF REPAIR [...] over the Left SacroIliac Joint: Fabere sign (Adle's Test) is significantly positive, as is compression [...] [place] 08/24/23 1442 documented in this encounter [facility] 08-24-2023 Instructions Elda Cody CNA - [...] nearest emergency room. documented in this encounter [facility] [employer] 08-23-2023 Instructions Jose Bryant MD - 08/23/2023 10:42 AM EDT RTC in 6 months labs, same day to include anemia labs. documented in this encounter [facility] 08-23-2023 History of Present illness Narrative Images from the original note were not included. NAME: Jessica Ferrera CLINIC NO.: [id number] DATE OF SERVICE: August 23, 2023 (Andra) [...] weight to optimize her outcome. Traveling to [facility] soon and then [place]. Updated Visit, July 08, 2023: Jessica returns [...] with their relationship. She is going to [facility] later this year, hopefully after her hip replacement. Updated Visit, October 07, 2022: Leaving for [facility] next week. Has all of her [...] in concerned with recent CT done in [facility] with a left 8 mm [...] thrombocytopenia. She is transitioning her care to [place] as her previous physician left. recovered from [...] deviated septum noted low platelets. Colonoscopy in [place] 2015 with many polyps, recommended repeat. Colonoscopy in 2017 in [place]. [facility] Clinical Note Previous notes reviewed today in [...] with more than 50% of the total yfdq-gq-okgo time of the visit in counseling / coordination of care. Yo Morse MD, MS Mechanical Development Engineerrig mechanic Hematology and Medical Oncology [address], [place] [address] Labs and Imaging Reviewed outside records provided prior to this visit and those in [facility]. as diagnosed by Dr. Morse [facility]. No evidence of a paraprotein. Negative [...] 5 miles per day. Had trip to [place] in November for chest pain. March 01, [...] Other: See Comments Burning of skin Nitrofurantoin [facility]* GI Upset, Hives, Itching, Rash, Swelling Penicillins [...] Cystoscopy; Dr. Lombardo; Leanne REJ [facility] EL[facility]OW SURGERY HX Left HYSTERECTOMY HX 1995 [...] which included preparing to see the patient, dxka-ut-rzun patient care, completing clinical documentation, performing a medically appropriate examination, counseling and educating the patient/family/caregiver, ordering medications, tests, or procedures, and independently interpreting results (not separately reported). Jose Bryant MD, CPE Hematology and Oncology Services Provided at: [place], [place] CC: Ricardo Hooper MD [address] [address] documented in this encounter [facility] 08-23-2023 Note HNO ID: [id number] Author: JOSE BRYANT MD Service: ? Author Type: Physician Type: Progress Notes Filed: 08/23/2023 19:19 Note Text: NAME: Jessica Ferrera CLINIC NO.: [id number] DATE OF SERVICE: August 23, 2023 (Andra) [...] weight to optimize her outcome. Traveling to [facility] soon and then [place]. Updated Visit, July 08, 2023: Jessica returns [...] with their relationship. She is going to [facility] and [place] later this year, hopefully after her hip replacement. Updated Visit, October 07, 2022: Leaving for [facility] next week. Has all of her [...] better after surge (more content not included)... [facility] 08-05-2023 History of Present illness Narrative Radiology Service Progress Note PATIENT NAME: Jessica [...] PATIENT PRESENTS WITH AN IMPLANTABLE OR ATTACHED CAMP ADVISOR: No RADIOLOGY DEPARTMENT: CT; Exam(s) Completed: Abdomen/Pelvis PERIPHERAL IV DATA: Not applicable SIGNED BY: RUTHIE Turpin) August 05, 2023 9:00 AM documented in this encounter [facility] 08-05-2023 Note HNO ID: [id number] Author: GRETCHEN JOSHUA RT(R) Service: ? Author [...] PATIENT PRESENTS WITH AN IMPLANTABLE OR ATTACHED CAMP ADVISOR: No RADIOLOGY DEPARTMENT: CT; Exam(s) Completed: Abdomen/Pelvis PERIPHERAL IV DATA: Not applicable SIGNED BY: Gretchen Joshua RT(R) August 05, 2023 9:00 AM [facility] 07-21-2023 History of Present illness Narrative .INFECTIOUS [...] Other: See Comments Burning of skin Nitrofurantoin [facility]* GI Upset, Hives, Itching, Rash, Swelling Penicillins [...] Cystoscopy; Dr. Lombardo; Leanne KENDALL [facility] HX Left HYSTERECTOMY HX 1994 [...] Gastrointestinal: non tender, normal sounds : no cartwright, no suprapubic pain, no CVA tenderness Musculoskeletal: [...] which included preparing to see the patient, dena-qz-xzno patient care, completing clinical documentation, obtaining and/or [...] TIME: 9:27 AM documented in this encounter [facility] 07-21-2023 Note HNO ID: [id number] Author: JENNI CARDENAS MD Service: ? Author [...] Other: See Comments Burning of skin Nitrofurantoin [facility]* GI Upset, Hives, Itching, Rash, Swelling Penicillins [...] Cystoscopy; Dr. Lombardo; Leanne KENDALL [facility]ERY HX Left HYSTERECTOMY HX 1994 [...] as needed. sulfamethoxazole-tr (more content not included)... [facility] 07-13-2023 Miscellaneous Notes Lab aware and note placed in December lab appt to NOT DRAW flow at that time. Patricia Eugene RN Just need FLOW and CBC, [...] provided # to call for scheduling. Patricia Eugene, RN Sure - she can get the [...] date change Patricia documented in this encounter [facility] 07-12-2023 History of Present illness Narrative Images from the original note were not included. HISTORY OF PRESENT ILLNESS: EST PT Jessica Ferrera is an 67 y.o. @ female. (EST PT ; LAST APPT W/ ROCKY) RECHECK (L) HIP ; HERE FOR MRI RESULTS 06/30/23 @ [facility] XRAYS, 06/21/23 IN CHANGE / EPIC MRI, 06/30/23 @ [facility] MRI ARTHROGRAM 01/14/21 @ [facility] DEXA 08/06/21 @ [facility] NO MDP / PREDNISONE S/P IA CORTISONE INJ 01/14/21 @ [facility] S/P PHYSICAL THERAPY @ [facility] [...] Future Standing Expiration Date: 07/12/2024 Scheduling Instructions: [facility] ; Please call patient to schedule, thank you. Rody @[facility] will obtain PA (L) hip [...] Future Standing Expiration Date: 07/12/2024 Scheduling Instructions: [facility] ; Please call patient to [...] also recommending a repeat IA injectio at [facility]. We have discussed her HEP and restrictions and will see her back in 4 weeks to reassess her left hip and discuss studies. Manda Lozada MA documented in this encounter [facility] 07-08-2023 Note HNO ID: [id number] Author: JOSE BRYANT MD Service: ? Author Type: Physician Type: Progress Notes Filed: 07/10/2023 11:47 Note Text: NAME: Jessica Ferrera CLINIC NO.: [id number] DATE OF SERVICE: July 08, 2023 (Andra) [...] labs, include flow cytometry 1 week before [facility] Clinical Note Previous notes reviewed today in [...] with more than 50% of the total vkjf-na-cyjv time of the visit in counseling / coordination of care. Yo Morse MD, MS Mechanical Development Engineerrig mechanic Hematology and Medical Oncology [address] [place] [address], [place] [address] Labs and Imaging Reviewed outside records provided prior to this visit and those in [facility]. as diagnosed by Dr. Morse [facility]. No evidence of a paraprotein. Negative [...] lobe groundglass opacity. (more content not included)... [facility] 06-24-2023 Note HNO ID: [id number] Author: DALLAS LOMBARDO MD Service: ? Author Type: Physician Type: Progress Notes Filed: 06/24/2023 12:13 Note Text: [facility] UROLOGY VISIT Follow Up CENTER FOR [...] No allergy testing for antibiotics. QUESTIONNAIRE: Questionnaire: Valhart Ambulatory Visit Intake Questionnaire Question Answer Have [...] Intermittent Intervention/Comfort measure Pain Comments Questionnaire: [facility] Additional Demo Question Answer Is this visit related to an accident, other than Workers' Compensation? No Is this visit related to Workers' Compensation? No Do you need an process server? No Questionnaire: Val Promis 10 Adult Short [...] CYSTO.PANENDO 06/05/2021 CYSTOURETHROSCOPY 06/20/15 Cystoscopy; Dr. Lombardo; [place] FAIZA [facility] HX Left HYSTERECTOMY HX 1994 [...] the nose as (more content not included)... [facility] 06-24-2023 Note HNO ID: [id number] Author: ?, ?, ? Service: ? Author Type: ? Type: Progress Notes Filed: 06/24/2023 12:13 Note Text: PVR = 0 ml Via bladder scan. [facility] 04-04-2023 Miscellaneous Notes I hope she had a good trip to [place]. She can come back to see me in 3 months - just need her labs done 2-3 days before. documented in this encounter [facility] 03-31-2023 History of Present illness Narrative Radiology Service Progress Note DATE OF SERVICE: [...] Value Ref Range Status 03/31/2023 64 >=60 mL/min/1.73m Final Comment: Estimated Glomerular Filtration Rate (eGFR) [...] DATE: March 31, 2023 TIME: 8:53 AM Radiology Service Progress Note PATIENT NAME: Jessica [...] RT Corine(R) March 31, 2023 9:39 AM documented in this encounter [facility] 03-31-2023 Note HNO ID: [id number] Author: Kaci Hodge RN Service: ? Author [...] DATE: March 31, 2023 TIME: 8:53 AM [facility] 03-31-2023 Note HNO ID: [id number] Author: Charleen Tao RT(R) Service: ? Author [...] RT Corine(R) March 31, 2023 9:39 AM [facility] 10-10-2022 Hospital Discharge instructions Patient Education 10/10/2022 [...] few weeks. Home care treatment may include: Twrb-ttu-lmrvezf pain relievers. A warm, moist cloth placed over the ear. Severe cases may require a procedure to insert tubes in the ears (tympanostomy tubes) to drain the fluid. Follow these instructions at home: Take vajd-iyo-cphxyyb and prescription medicines only as told by [...] provider. Document Revised: 09/11/2021 Document Reviewed: 09/11/2021 [employer] Patient Education 2022 [employer]. Follow Up Care 10/10/2022 14:55:39 With:Ricardo Hooper Address: [address] [place], [place] [address] Business (1) When:10/13/2022 15:48:06 Comments:Follow-up with your primary care provider in 3 to 5 days. If symptoms worsen, do not improve, or new symptoms arise please report back to emergency department for further evaluation. [facility] 10-10-2022 Evaluation + Plan note Extrac mirtha from: Title:ED Note Author:Thony Soriano PA-C te:10/10/22 Left serous otitis media (H6 5.92: Unspecified nonsuppurative otitis media, left ear) Orders: cefdinir, 300 mg = 1 cap(s), Oral, q12hr, X 7 day(s), # 14 cap(s), Refills(s) 0 predniSONE, 60 mg = 3 tab(s), Oral, Daily, X 7 day(s), # 21 tab(s), Refills(s) 0 [facility]05-10-2023 Instructions* Patient Instructions* Jose Bryant MD - 10/07/2022 10:42 AM EDT RTC in 6 months labs and scans 1 week before Hold oral Iron while in [place] ( for 3 weeks) CT chest in 6 months with labs also. documented [facility] History of Present illness Narrative* Jose Bryant MD - 10/07/2022 10:33 AM EDT Images from the original note were not included. NAME: Jessica Ferrera CLINIC NO.: [id number] DATE OF SERVICE: June 10, 2022 (Andra) [...] stable - can reassess in 6 months. [facility] Clinical Note Previous notes reviewed today in [...] with more than 50% of the total ptzz-oj-uvre time of the visit in counseling / coordination of care. Yo Morse MD, MS Mechanical Development Engineerrig mechanic Hematology and Medical Oncology [address] [address], [place] [id number] Labs and Imaging Reviewed outside records provided prior to this visit and those in [facility]. as diagnosed by Dr. Morse [facility]. No evidence of a paraprotein. Negative [...] in concerned with recent CT done in [facility] with a left 8 mm [...] deviated septum noted low platelets. Colonoscopy in [place] 2016 with many polyps, recommended repeat. Colonoscopy in 2017 in [place]. June 27, 2018 She notes recent severe [...] 5 miles per day. Had trip to [place] in November for chest pain. CT chest [...] Other: See Comments Burning of skin [facility]itrofurantoin [facility]* GI Upset, Hives, Itching, Rash, Swelling Penicillins [...] CYSTO.PANENDO 06/05/2021 CYSTOURETHROSCOPY 06/20/15 Cystoscopy; Dr. Lombardo; [place] [facility] [facility] HX Left HYSTERECTOMY HX 1995 [...] which included preparing to see the patient, eqbc-hz-oozs patient care, completing clinical documentation, performing a medically appropriate examination, counseling and educating the patient/family/caregiver, ordering medications, tests, or p rocedures, and independently interpreting results (not separately reported). Jose Bryant MD, CPE Hematology and Oncology Services Provided at: [place], [place] CC: Ricardo Hooper MD [address] [facility] [address] documented in this encounterS[facility]05-10-2023 Nurse Note* Desiree Connors MA - 10/07/2022 10:08 AM EDT Patient is going to physical therapy for back and head, her head is better. Desiree Connors MA documented in this encounterS[facility]03-08-2023 NotePROCEDURE: XR ANKLE LT MIN 3 V COMPARISON: 10/01/2021 HISTORY: Pain of left ankle joint FINDINGS: BONES:No acute fracture or dislocation. Moderate to marked enthesopathic spurring of the plantar calcaneus. Mild degenerative changes with marginal osteophyte formation. SOFT TISSUES:Negative. No visible soft tissue swelling. EFFUSION:None visible. OTHER: Negative. IMPRESSION: Stable degenerative changes Electronically authenticated by: JOSE ALBERTO STEPHEN Date: 2022-08-05 13:47[facility]01-11-2023 Instructions* Patient Instructions* Jose Bryant MD - 06/10/2022 11:35 AM EST Keep appointment scheduled in September with Labs same day. Continue oral Iron CT chest in one year with labs also. Will order at next visit in September RTC in 6 months - same day as labs - CBC, CMP, Anemia documented in this encounterS[facility]01-11-2023 History of Present illness Narrative* Jose Bryant MD - 06/10/2022 11:26 AM EST Images from the original note were not included. NAME: Jessica Ferrera CLINIC NO.: [id number] DATE OF SERVICE: June 10, 2022 (Andra) [...] 1 year. Will discuss in 6 months. [facility] Clinical Note Previous notes reviewed today in [...] with more than 50% of the total loks-ok-wxvt time of the visit in counseling / coordination of care. Yo Morse MD, MS Mechanical Development Engineerrig mechanic Hematology and Medical Oncology [address] [place], [place] [id number] Labs and Imaging Reviewed outside records provided prior to this visit and those in [facility]. as diagnosed by Dr. Morse [facility]. No evidence of a paraprotein. Negative [...] in concerned with recent CT done in [facility] with a left 8 mm [...] deviated septum noted low platelets. Colonoscopy in [place] 2016 with many polyps, recommended repeat. Colonoscopy in 2017 in [place]. June 27, 2018 She notes recent severe [...] 5 miles per day. Had trip to [place] in November for chest pain. CT chest [...] Other: See Comments Burning of skin [facility]in [facility]* GI Upset, Hives, Itching, Rash, Swelling Penicillins [...] Cystoscopy; Dr. Lombardo; [place] [facility] HX Left HYSTERECTOMY HX 1995 [...] which included preparing to see the patient, mdak-kz-vycu patient care, completing clinical documentation, performing a medically appropriate examination, counseling and educating the patient/family/caregiver, ordering medications, tests, or p rocedures, and independently interpreting results (not separately reported). Jose Bryant MD, CPE Hematology and Oncology Services Provided at: [place], [place] CC: Ricardo Hooper MD [address] [facility] [address] documented in this encounterScci Hospital [facility]ima11-15-2022 Miscellaneous Notes* Telephone Encounter - Patricia Eugene [...] advise. Georgia Tavares RN documented in this encounterScci Hospital [facility]ima11-07-2022 History of Present illness Narrative* Charleen Tao, RT(R) - 04/06/2022 9:00 AM EST Radiology Service Progress Note PATIENT NAME: Jessica Ferrera DATE OF SERVICE: April 06, 2022 TIME: 9:13 AM PATIENT IDENTITY VERIFICATION COMPLETED USING TWO (2) IDENTIFIERS: Name and Date of confirmedby patient verbally. FALL SCREENING: Has the patient [...] BY: RT Corine(R) April 06, 2022 9:13 AM * Heike Ortiz RN - 04/06/2022 9:00 AM EST Radiology Service Progress Note DATE OF SERVICE: [...] Ferrera DATE: April 06, 2022 TIME: 9:23 AM documented in this encounterScci Hospital [facility]ima09-22-2022 Miscellaneous Notes* Telephone Encounter - Patricia Eugene RN - 02/19/2022 9:[address] Alberto reviewed labs rec'd from [facility] this morning. He will discuss with patient all results on 03/12 appt. Nothing to address at this time. Patricia Eugene RN * Telephone Encounter - Dedra Carr [facility] - 02/19/2022 8:11 AM EDT Records scanned. * Telephone Encounter - Angle Hawk Pss - 02/18/2022 4:03 PM EDT Appointment moved to after CT on 03/12, pt notified. * Telephone Encounter - Patricia Eugene RN - 02/18/2022 3:52 PM EDT Pt aware can move pt up to Mar [address]. Pt states she also had a recent back surgery at [facility], in [place] with additional lab work. She is okay with getting all the results at her appt, unless you need to go over anything with her after reviewing all the results. PIPPA: review Dr Villasenor labs in the lab tab. I will have Rudi Carr get the additional labs from [facility] for you to review as well. 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 Has been up walking. [...] D/C plan for home today 5. Ortho Yxuz-qi-Dest Discussion of Medical Necessity for Use of [...] provide stability after surgery. Quique Mojica MD [facility] Spine Surgeon [phone] * Regina Pizarro RN - 02/16/2022 6:26 [...] evaluate in AM documented in this encounterBON COPPER SPRINGS EAST HOSPITALDeemelo Work Phone: [phone]) 714-388709-19-2022 Hospital Discharge instructions* Discharge Instructions* Quique Mojica [...] redness, swelling or drainage after 4 days [phone] May shower in 2 days No tub baths for 6 weeks Quique Mojica MD [facility] Spine Surgeon Keep it Clean - Post-Operative Home instructions These instructions are to help you have the best possible recovery after your surgical procedure. [facility] is here to support you. If you have questions, call [phone] Wednesday through Wednesday from 7:30AM to 8:30PM to speak to a nurse. If you need to speak to someone outside of these hours, call your physician. Incision Do s and Don ts Do wash hands before and after dressing changes or when you have had any contact with your incision. Use hand mechanical piping designer or antibacterial soap. Do keep your incision [...] through Care Everywhere. * Lumbar Laminectomy: Post-op (Filipino) * Constipation (Filipino) * DVT (Deep Vein Thrombosis): General Info (Filipino) * acetaminophen and oxycodone (Filipino) * tizanidine (Filipino) * ondansetron (oral) (Filipino) * docusate and senna (Filipino) documented in this encounterBON SANTA MARTA HOSPITALTelecoast Communications Work Phone: [phone]) 647-863606-23-2022 History of Present illness Narrative* Monica Wallace Ma - 11/20/2021 9:33 AM EDT PVR = 0 ml Via bladder scan. * Dallas Lombardo MD - 11/20/2021 9:30 AM EDT [facility] [...] CYSTO.PANENDO 06/05/2021 CYSTOURETHROSCOPY 06/20/15 Cystoscopy; Dr. Lombardo; [place] [facility] HX Left HYSTERECTOMY HX 1994 [...] antibiotic Dallas Lombardo MD documented in this encounterScci Hospital Lima06-08-2022 NotePROCEDURE: XR FOOT LT MIN 3 VIEWS COMPARISON: 10/01/2021 HISTORY: Pain in left foot FINDINGS: BONES:No acute fracture or dislocation. Moderate enthesopathic spurring of the calcaneus at the plantar insertion. Mild degenerative changes most significant in the midfoot SOFT TISSUES:Negative. No visible soft tissue swelling. EFFUSION:None visible. OTHER: Negative. IMPRESSION: Stable degenerative changes Electronically authenticated by: JOSE ALBERTO STEPHEN Date: 2021-11-05 17:28[facility]* Diagnosis Screening for genitourinary condition- Primary Screening for other and unspecified genitourinary condition Recurrent UTI Urinary tract infection, site not specified Vaginal atrophy Postmenopausal atrophic vaginitis documented in this encounter [facility] noteNo assessment information availableDayton Children'S Hospital Work Phone: Evaluation note* Diagnosis Spinal stenosis, lumbar region with neurogenic claudication- Primary Lumbar stenosis with neurogenic claudication Spinal stenosis, lumbar region, with neurogenic claudication Hypertension Unspecified essential hypertension GERD (gastroesophageal reflux disease) Esophageal reflux documented in this encounter [facility] Work Phone: evaluation note* Diagnosis Iron deficiency anemia secondary to inadequate dietary iron intake documented in this encounter [facility] note* Diagnosis Iron deficiency anemia secondary to inadequate dietary iron intake- Primary Pulmonary nodules Other nonspecific abnormal finding of lung field Mediastinal lymphadenopathy Enlargement of lymph nodes Idiopathic cytopenia of undetermined significance (ICUS) documented in this encounter [facility] note* Diagnosis Iron deficiency anemia secondary to inadequate dietary iron intake- Primary Thrombocytopenia (HCC) Thrombocytopenia, unspecified Lung nodules Other nonspecific abnormal finding of lung field documented in this encounter [facility] note* Diagnosis Thrombocytopenia (HCC)- Primary Thrombocytopenia, unspecified Iron deficiency anemia secondary to inadequate dietary iron intake documented [facility] this encounter [facility]* Diagnosis Primary osteoarthritis of left hip- Primary Limb weakness Other musculoskeletal symptoms referable to limbs Numbness Disturbance of skin sensation Paresthesia Disturbance of skin sensation Pain in extremity, unspecified extremity [facility] encounter [facility] Diagnosis Thrombocytopenia (HCC)- Primary Thrombocytopenia, unspecified Lymphocytosis Lymphocytosis (symptomatic) Mediastinal lymphadenopathy Enlargement of lymph nodes documented in this encounter [facility]* Diagnosis Generalized abdominal pain- Primary Abdominal pain, generalized Recurrent UTI Urinary tract infection, site not specified Penicillin allergy Personal history of allergy to penicillin documented in this encounter [facility]* Diagnosis Iron deficiency anemia secondary to inadequate dietary iron intake- Primary documented in this encounter [facility]* Diagnosis Penicillin allergy Personal history of allergy to penicillin documented [facility] this encounter [facility]* Diagnosis Generalized abdominal pain Abdominal pain, generalized documented [facility] this encounter [facility]* Diagnosis Lung nodules Other nonspecific abnormal finding of lung field Thrombocytopenia (HCC) Thrombocytopenia, unspecified Iron deficiency anemia secondary to inadequate dietary iron intake documented [facility] this encounter [facility]* Diagnosis Iron deficiency anemia secondary to inadequate dietary iron intake- Primary Lung nodules Other nonspecific abnormal finding of lung field documented [facility] this encounter [facility]* Diagnosis Idiopathic cytopenia of undetermined significance (ICUS) Pulmonary nodules Other nonspecific abnormal finding of lung field Mediastinal lymphadenopathy Enlargement of lymph nodes Lung nodules Other nonspecific abnormal finding of lung field documented [facility] this encounter [facility]* Diagnosis Onset Date Resolution Status Chronic cough acute Cough variant asthma acute GERD (gastroesophageal reflux disease) acute Reactive airway disease [facility] Work Phone: Evaluation note* Diagnosis Abnormal urinalysis- Primary Other nonspecific finding on examination of urine documented in this encounter [facility]* Diagnosis Pre-op examination- Primary Primary osteoarthritis of left hip documented [facility] this encounter [facility]* Diagnosis Post-operative pain- Primary Other acute postoperative pain [facility] encounter [facility]* Diagnosis Difficulty walking- Primary Difficulty in walking Acute postoperative pain of left hip [facility] this encounter [facility]* Diagnosis Acute postoperative pain of left hip- Primary Difficulty walking Difficulty in walking [facility] Diagnosis Acute postoperative pain of left hip- Primary Difficulty walking Difficulty in walking [facility]* Diagnosis S/P total left hip arthroplasty- Primary [facility]* Diagnosis Acute postoperative pain of left hip- Primary Difficulty walking Difficulty in walking [facility] encounter [facility]* Diagnosis Primary osteoarthritis of left hip- Primary Acute hip pain, left documented in this encounter [facility]* Diagnosis Acute pain of left knee- Primary History of total left knee replacement [facility]* Diagnosis Acute postoperative pain of left hip- Primary Difficulty walking Difficulty in walking [facility]* Diagnosis Acute postoperative pain of left hip- Primary Difficulty walking Difficulty in walking Pre-op examination documented in this encounter [facility]* Diagnosis S/P total left hip arthroplasty Acute hip pain, left documented in this encounter [facility]* Diagnosis Acute postoperative pain of left hip- Primary Difficulty walking Difficulty in walking Pre-op examination documented in this encounter [facility]* Diagnosis Acute postoperative pain of left hip- Primary Difficulty walking Difficulty in walking Pre-op examination documented in this encounter [facility]* Diagnosis Vaginal atrophy- Primary Postmenopausal atrophic vaginitis Postmenopausal HRT (hormone replacement therapy) Need for prophylactic hormone replacement therapy (postmenopausal) documented in this encounter [facility]* Diagnosis Onset Date Resolution Status Admit Date Cough variant asthma acute Febr uary 2024 10:04am GERD (gastroesophageal reflu x disease) acute July 11 025 10:04am Reactive airway disease acute F ebruary 2024 10:04am [facility] Work Phone: Evaluation note* Diagnosis Disorder of sacrum- Primary Disorders of sacrum Disorder of sacrum- Primary Disorders of sacrum Disorder of sacrum Disorders of sacrum [facility]* Diagnosis Preop examination- Primary Unspecified pre-operative examination Hypertension, unspecified type Osteoarthritis of left hip, unspecified osteoarthritis type Urinary frequency Preop examination Unspecified pre-operative examination Hypertension, unspecified type Osteoarthritis of left hip, unspecified osteoarthritis type Urinary frequency documented [facility]* Diagnosis S/P total left hip arthroplasty- Primary [facility] in [facility] encounter [facility] Narrative No data available for this section [facility] ShawInstructionsNot on filedocumented in this encounter [facility] SystemProgress note No data available for this section [facility] ShawReason for referral (narrative)* Consultation (Routine) - Pending Review Specialty Diagnoses / Procedures Referred By Contac t Referred To Contact Pain Medicine Diagnoses Primary osteoarthritis of left hip Procedures NE OFFICE/OUTPATIENT NEW HIGH MDM 60 MINUTES Jr. Salima Pedro, DO [address] [facility] [address] [place] [address] Enmanuel Ferreira MD [address] [place] [address] Referral ID Status Reason Start Date Expiration Date Visits Requested Visits Authorized [id number] Pending Review Consult and Treat 07/12/2023 01/08/2024 1 1 * (Routine) - Incomplete Specialty Diagnoses / Procedures Referred By Contac t Referred To Contact Diagnoses Limb weakness Numbness Paresthesia Pain in extremity, unspecified extremity Procedures EMG AND NERVE CONDUCTION STUDY Jr. Salima Pedro, DO [address] [facility] [address] [place] [address] Referral ID Status Reason Start Date Expiration Date V isits Requested Visits Authorized [id number] Incomplete 07/12/2023 01/08/2024 1 1 [facility]Reason for visit Narrative* Auth/Cert Specialty Diagnoses / Procedures Referred By Contac t Referred To Contact Diagnoses Lumbar spinal stenosis LUMBAR SPINAL STENOSIS Procedures NE LAMINECTOMY,>2 SGMT,LUMBAR LAMINEC/FACETECT/FORAMIN,MARCIAL MBAR 1 SEG L3-4 LUMBAR LAMINECTOMY POSTERIOR ABOVE PREVIOUS L 4-5 FUSION Quique Mojica MD [address] [place] [address] [facility] leemail [address] [place] [address] Referral ID Status Reason Start Date Expiration Date Visits Re quested Visits Authorized [id number] 1 1 [employer] Work Phone: reason for visit Narrative* Rehabilitation - Outpatient (Routine) - Pending Review Specialty Diagnoses / Procedures Referred By Contac t Referred To Contact Physical Therapy Diagnoses Pre-op examination Primary osteoarthritis of left hip Procedures NE OFFICE/OUTPATIENT NEW HIGH MDM 60 MINUTES Dalia Ordoñez PA [address] [place] [address] Phone: tel: fax: Carmen Rodriguez, PT [address] [place] [address] Referral ID Status Reason Start Date Expiration Date Visits Requested Visits Authorized [id number] Pending Review Specialty Services Required 10/08/2024 1 1 [facility] HealthcareReason for visit Narrative* Rehabilitation - Outpatient (Routine) - Authorized Specialty Diagnoses / Procedures Referred By Contac t Referred To Contact Physical Therapy Diagnoses Pre-op examination Primary osteoarthritis of left hip Procedures NE OFFICE/OUTPATIENT NEW HIGH MDM 60 MINUTES Dalia Ordoñez PA [address] [place] [address] Phone: tel: fax: Carmen Rodriguez, PT [address] [place] [address] Referral ID Status Reason Start Date Expiration Date Visits Requested Visits Authorized [id number] Authorized Specialty Services Required 05/04/2024 06/09/2024 8 8 [facility] HealthcareReason for visit Narrative* Rehabilitation - Outpatient (Routine) - Authorized Specialty Diagnoses / Procedures Referred By Contac t Referred To Contact Physical Therapy Diagnoses Pre-op examination Primary osteoarthritis of left hip Procedures NE OFFICE/OUTPATIENT NEW HIGH MDM 60 MINUTES Dalia Ordoñez PA [address] [place] [address] Phone: tel: fax: [facility] [address] [place] [address] Phone: tel: fax: Referral ID Status Reason Start Date Expiration Date Visits Requested Visits Authorized [id number] Authorized Specialty Services Required 05/04/2024 06/09/2024 8 8 [facility] HealthcareReason for visit Narrative* Rehabilitation - Outpatient (Routine) - Authorized Specialty Diagnoses / Procedures Referred By Contac t Referred To Contact Physical Therapy Diagnoses Primary osteoarthritis of left hip Procedures NE OFFICE/OUTPATIENT NEW HIGH MDM 60 MINUTES NE MANUAL THERAPY TQS 1/> REGIONS EACH 15 MINUTES NE THERAPEUTIC PX 1/> AREAS EACH 15 MIN EXERCISES PHYS/OCC THERAPY SS Dalia Ordoñez, PA [address] [place] [address] Phone: tel: fax: [facility] [address] [place] [address] Phone: tel: fax: Referral ID Status Reason Start Date Expiration Date Visits Requested Visits Authorized [id number] Authorized Specialty Services Required 06/14/2024 07/15/2024 8 8 [facility] Healthcare Summary Purpose Family History No Family History Records Found Relationship Condition Age at Onset Recorded Date/T kentrell father Hypertension Unknown Heart disease Unknown Malignant neoplasm Unknown Not Specified Hypertension Unknown Relationship Condition Age at Onset Recorded Date/T kentrell father Hypertension Unknown Heart disease Unknown Malignant neoplasm Unknown Unknown mother Hypertension Unknown Family history of thyroid disease Unknown son Malignant neoplasm Unknown Advance Directives No Advanced Directives Records FoundDocuments on File Type Date Recorded Patient 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 Advance Directive(s) 07/22/2018 3:03 PM Ad vanced Directives Advance Directive Response Recorded Date/ Time Advance Directives No November 15 4:00pm Latest Code Status on File Code Status Date Activated Date Inactivated Comments Full Code 02/16/2022 6:19 PM Advance Directive Response Recorded Date/ Time Advance Directives Yes July 10:21am Advance Directive Response Recorded Date/ Time Advance Directives Yes July 9:21am Documents on File Type Date Recorded Patient 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 Durable Power of Certified Respiratory Therapist Documents on File Type Date Recorded Patient 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 Durable Power of Certified Respiratory Therapist Chief Complaint and Reason for Visit Chief Complaint CTDZ Screening Chief Complaint Screening Chief Complaint 6 mo f/u Chronic Cou gh, RAD Screening Reason for Visit Chronic cough Cough variant asthma GERD (gastroesophageal reflux disease) Reactive airway disease Chief Complaint Admit Date H mo f/u Chronic Cough, RAD July 11, 2024 10:04am Reason for Visit Admit Date Cough variant asthma July 11, 2024 10:04am GERD (gastroesophageal reflux disease) F ebruary 2024 10:04am Reactive airway disease July 11 10:04am Reason for Referral Specialty Diagnoses / Procedures Referred By Contac t Referred To Contact CT IMAGING Diagnoses Lung nodules Procedures CT CHEST W IVCON DIAGNOSTIC COMPUTED TOMOGRAPHY THORAX W/CONTRAST Jose Bryant MD [address] [place] [address] [place] [address] Ct Imaging Referral ID Status Reason Start Date Expiration Date Visits Requested Visits Authorized [id number] Authorized Auto-Generat ed Referral 11/06/2023 1 1 Specialty Diagnoses / Procedures Referred By Contac t Referred To Contact Allergy Diagnoses Penicillin allergy Procedures CONSULT TO ALLERGY/IMMUNOLOGY OFFICE[facility] 60 MINUTES Jenni Cardenas MD [address] [place] [address] Referral ID Status Reason Start Date Expiration Date Visits Requested Visits Authorized [id number] Authorized PCP Requested Referral 07/21/2023 07/20/2024 1 1 Specialty Diagnoses / Procedures Referred By Contac t Referred To Contact CT IMAGING Diagnoses Generalized abdominal pain Procedures CT ABD/PEL WO IVCON CT ABD & PELVIS W/O CONTRAST Jenni Cardenas MD [address] [place] [address] Ct Imaging [place] [address] Referral ID Status Reason Start Date Expiration Date Visits Requested Visits Authorized [id number] Authorized Auto-Generat ed Referral 07/21/2023 08/19/2024 1 1 Referral ID Status Reason Start Date Expiration Date V isits Requested Visits Authorized [id number] Closed Auto-Generate d Referral 07/21/2023 08/19/2024 1 1 Specialty Diagnoses / Procedures Referred By Contac t Referred To Contact CT IMAGING Diagnoses Lung nodules Procedures CT CHEST W IVCON DIAGNOSTIC COMPUTED TOMOGRAPHY THORAX W/CONTRAST Jose Bryant MD [address] [facility] [place] [address] Ct Imaging [place] [address] Referral ID Status Reason Start Date Expiration Date V isits Requested Visits Authorized [id number] Closed Auto-Generate d Referral 04/09/2023 11/06/2023 1 1 Specialty Diagnoses / Procedures Referred By Contac t Referred To Contact CT IMAGING Diagnoses Idiopathic cytopenia of undetermined significance (ICUS) Pulmonary nodules Mediastinal lymphadenopathy Lung nodules Procedures CT CHEST W IVCON DIAGNOSTIC COMPUTED TOMOGRAPHY THORAX W/CONTRAST Jose Bryant MD [address] [facility] [facility] [place] [address] Ct Imaging [place] [address] Referral ID Status Reason Start Date Expiration Date V isits Requested Visits Authorized [id number] Closed Auto-Generate d Referral 03/12/2022 04/11/2022 1 1 Specialty Diagnoses / Procedures Referred By Contac t Referred To Contact Dalia Ward PA [address], [address] [place] [address] Referral ID Status Reason Start Date Expiration Date V isits Requested Visits Authorized [id number] Pending Review 1 1 Specialty Diagnoses / Procedures Referred By Contac t Referred To Contact Diagnoses Disorder of sacrum Procedures Case request operating room: INJECTION BLOCK SACROILIAC JOINT Dalia Ward PA [address], [address] [place] [address] Referral ID Status Reason Start Date Expiration Date V isits Requested Visits Authorized [id number] Pending Review 08/24/2023 08/23/2024 1 1 Additional Source Comments INFORMATION SOURCE (unrecogn ized section and content) DATE CREATED AUTHOR 09/24/2021 [facility] Special[facility] DATE CREATED AUTHOR AUTHOR'S ORGANIZ ATION 10/09/2022 [facility] DATE CREATED AUTHOR AUTHOR'S ORGANIZ ATION 10/12/2022 [facility] DATE CREATED AUTHOR AUTHOR'S ORGANIZ ATION 01/12/2023 [facility] DATE CREATED AUTHOR AUTHOR'S ORGANIZ ATION 03/01/2023 [facility] DATE CREATED AUTHOR AUTHOR'S ORGANIZ ATION 02/25/2024 [facility] DATE CREATED AUTHOR AUTHOR'S ORGANIZ ATION 05/03/2024 [facility] DATE CREATED AUTHOR AUTHOR'S ORGANIZ ATION 07/26/2024 [facility] EPIC Source Comments (unrecognize d section and content) In the event this informatio n is protected by the Federal Confidentiality of Alcohol and Drug Abuse Patient Records regulations: The Federal rules restrict any use of the information to criminally investigate or prosecute any alcohol or drug abuse patient.[facility] the event this information is protected by the Federal Confidentiality of Alcohol and Drug Abuse Patient Records regulations: The Federal rules restrict any use of the information to criminally investigate or prosecute any alcohol or drug abuse patient.[facility] the event this information is protected by the Federal Confidentiality of Alcohol and Drug Abuse Patient Records regulations: The Federal rules restrict any use of the information to criminally investigate or prosecute any alcohol or drug abuse patient.[facility] the event this information is protected by the Federal Confidentiality of Alcohol and Drug Abuse Patient Records regulations: The Federal rules restrict any use of the information to criminally investigate or prosecute any alcohol or drug abuse patient.[facility] the event this information is protected by the Federal Confidentiality of Alcohol and Drug Abuse Patient Records regulations: The Federal rules restrict any use of the information to criminally investigate or prosecute any alcohol or drug abuse patient.[facility] the event this information is protected by the Federal Confidentiality of Alcohol and Drug Abuse Patient Records regulations: The Federal rules restrict any use of the information to criminally investigate or prosecute any alcohol or drug abuse patient.[facility] the event this information is protected by the Federal Confidentiality of Alcohol and Drug Abuse Patient Records regulations: The Federal rules restrict any use of the information to criminally investigate or prosecute any alcohol or drug abuse patient.[facility] the event this information is protected by the Federal Confidentiality of Alcohol and Drug Abuse Patient Records regulations: The Federal rules restrict any use of the information to criminally investigate or prosecute any alcohol or drug abuse patient.[facility] the event this information is protected by the Federal Confidentiality of Alcohol and Drug Abuse Patient Records regulations: The Federal rules restrict any use of the information to criminally investigate or prosecute any alcohol or drug abuse patient.[facility] the event this information is protected by the Federal Confidentiality of Alcohol and Drug Abuse Patient Records regulations: The Federal rules restrict any use of the information to criminally investigate or prosecute any alcohol or drug abuse patient.[facility] the event this information is protected by the Federal Confidentiality of Alcohol and Drug Abuse Patient Records regulations: The Federal rules restrict any use of the information to criminally investigate or prosecute any alcohol or drug abuse patient.[facility] the event this information is protected by the Federal Confidentiality of Alcohol and Drug Abuse Patient Records regulations: The Federal rules restrict any use of the information to criminally investigate or prosecute any alcohol or drug abuse patient.[facility] the event this information is protected by the Federal Confidentiality of Alcohol and Drug Abuse Patient Records regulations: The Federal rules restrict any use of the information to criminally investigate or prosecute any alcohol or drug abuse patient.[facility]ima[facility] the event this information is protected by the Federal Confidentiality of Alcohol and Drug Abuse Patient Records regulations: The Federal rules restrict any use of the information to criminally investigate or prosecute any alcohol or drug abuse patient.[facility]ima[facility] the event this information is protected by the Federal Confidentiality of Alcohol and Drug Abuse Patient Records regulations: The Federal rules restrict any use of the information to criminally investigate or prosecute any alcohol or drug abuse patient.[facility]ima[facility] the event this information is protected by the Federal Confidentiality of Alcohol and Drug Abuse Patient Records regulations: The Federal rules restrict any use of the information to criminally investigate or prosecute any alcohol or drug abuse patient.[facility]ima[facility] the event this information is protected by the Federal Confidentiality of Alcohol and Drug Abuse Patient Records regulations: The Federal rules restrict any use of the information to criminally investigate or prosecute any alcohol or drug abuse patient.[facility]ima[facility] the event this information is protected by the Federal Confidentiality of Alcohol and Drug Abuse Patient Records regulations: The Federal rules restrict any use of the information to criminally investigate or prosecute any alcohol or drug abuse patient.[facility]imaIn the event this information is protected by the Federal Confidentiality of Alcohol and Drug Abuse Patient Records regulations: The Federal rules restrict any use of the information to criminally investigate or prosecute any alcohol or drug abuse patient.[facility]imaIn the event this information is protected by the Federal Confidentiality of Alcohol and Drug Abuse Patient Records regulations: The Federal rules restrict any use of the information to criminally investigate or prosecute any alcohol or drug abuse patient.[facility] Reason for Visit (unrecogniz ed section and [...] Procedures CONSULT TO INFECTIOUS DISEASES OFFICE/OUTPATIENT NEW HIGH MDM 60 MINUTES Dallas Lombardo MD [address] [place] [id number] Referral ID Status Reason Start Date Expiration Date V isits Requested Visits Authorized [id number] Closed PCP Requested Referral 06/24/2023 06/23/2024 1 1 Reason Comments Lymphocytosis 1 month follow up Reason Comments New Patient Specialty Diagnoses / Procedures Referred By Contac t Referred To Contact Allergy Diagnoses Penicillin allergy Procedures CONSULT TO ALLERGY/IMMUNOLOGY OFFICE/OUTPATIENT NEW HIGH MDM 60 MINUTES Jenni Cardenas MD [address] [place] [address] Referral ID Status Reason Start Date Expiration Date V isits Requested Visits Authorized [id number] Closed PCP Requested Referral 07/21/2023 07/20/2024 1 1 Reason Comments Patient Question Reason Comments Radiology [place] Specialty Diagnoses / Procedures Referred By Contac t Referred To Contact CT IMAGING Diagnoses Generalized abdominal pain Procedures CT ABD/PEL WO IVCON CT ABD & PELVIS W/O CONTRAST Jenni Cardenas MD [address] [place] [id number] [place] [address] Referral ID Status Reason Start Date Expiration Date V isits Requested Visits Authorized [id number] Closed Auto-Generate d Referral 07/21/2023 08/19/2024 1 [address] Specialty Diagnoses / Procedures Referred By Contac t Referred To Contact CT IMAGING Diagnoses Lung nodules Procedures CT CHEST W IVCON DIAGNOSTIC COMPUTED TOMOGRAPHY THORAX W/CONTRAST Jose Bryant MD [address] [place] [address] [place] [address] Ct Imaging [facility] Referral ID Status Reason Start Date Expiration Date V isits Requested Visits Authorized [id number] Closed Auto-Generate d Referral 04/09/2023 11/06/2023 1 1 Reason Comments Anemia Reason Comments Release Of Medical Records Specialty Diagnoses / Procedures Referred By Contac t Referred To Contact CT IMAGING Diagnoses Idiopathic cytopenia of undetermined significance (ICUS) Pulmonary nodules Mediastinal lymphadenopathy Lung nodules Procedures CT CHEST W IVCON DIAGNOSTIC COMPUTED TOMOGRAPHY THORAX W/CONTRAST Jose Bryant MD [address] [place] [address] [place] [address] Ct Imaging [facility] Referral ID Status Reason Start Date Expiration Date V isits Requested Visits Authorized [id number] Closed Auto-Generate d Referral 03/12/2022 04/11/2022 1 1 Reason Comments Pre-op Exam Reason Comments Pre-op Exam Post-op Reason Comments Pain Reason Onset Date Comments CX PT today 06/05/2024 Reason Comments Follow-up Reason Comments vaginal irritation C/o ongoing vaginal pressure and irritation around vaginal opening. Denies UTI symptoms. Used OTC 3 day treatment that worked a little bit, but not 100%. Uses Estrace cream x3 weekly. Reason Comments Hip Pain Care Teams (unrecognized sec tion and content) Team Status: Active Member Role Status Dates Ricardo Hooper MD Primary Care Provider Active Team Status: Inactive Member Role Status Dates Ricardo Hooper MD Primary Care Provider Active Referral Self Attending Provider Active White Work Cleaner Relationship Specialty Start Date End Date Ricardo Hooper MD [address] [place] [address] PCP - General Family Practice 01/11/19 Madisyn Lara MD [address] [place] [address] Primary Staff Physician Cardiology 08/16/18 Team Status: Inactive Member Role Status Dates Ricardo Hooper MD Primary Care Provider Active Rocky Villasenor MD Attending Provider Active Team Status: Inactive Member Role Status Dates Ricardo Hooper MD Primary Care Provider Active Enmanuel Burton DO Attending Provider Active White Work Cleaner Relationship Specialty Start Date End Date Ricardo Hooper MD [address] [place] [address] PCP - General Family Medicine 09/16/21 White Work Cleaner Relationship Specialty Start Date End Date Ricardo Hooper MD [address] [place] [address] PCP - General Family Medicine 09/16/21 White Work Cleaner Relationship Specialty Start Date End Date Ricardo Hooper MD [address] [place] [address] PCP - General Family Medicine 01/11/19 Madisyn Lara MD [address] [place] [address] Primary Staff Physician Cardiology 08/16/18 White Work Cleaner Relationship Specialty Start Date End Date Ricardo Hooper MD [address] [place] [address] PCP - General Family Medicine 01/11/19 Madisyn Lara MD [address] [place] [address] Primary Staff Physician Cardiology 08/16/18 White Work Cleaner Relationship Specialty Start Date End Date Ricardo Hooper MD [address] [place] [address] PCP - General Family Medicine 01/11/19 Madisyn Lara MD [address] [facility] [place] [address] Primary Staff Physician Cardiology 08/16/18 White Work Cleaner Relationship Specialty Start Date End Date Ricardo Hooper MD PCP - General Family Medicine 01/11/19 Madisyn Lara MD [address] [facility] [address] [place] [address] Primary Staff Physician Cardiology 08/16/18 White Work Cleaner Relationship Specialty Start Date End Date Ricardo Hooper MD PCP - General Family Medicine 01/11/19 Madisyn Lara MD [address] [place] [address] Primary Staff Physician Cardiology 08/16/18 White Work Cleaner Relationship Specialty Start Date End Date Ricardo Hooper MD [address] [place] [address] PCP - General Family Medicine 10/27/22 White Work Cleaner Relationship Specialty Start Date End Date Ricarod Hooper MD [address] [place] [address] PCP - General Family Medicine 10/27/22 White Work Cleaner Relationship Specialty Start Date End Date Ricardo Hooper MD PCP - General Family Medicine 01/11/19 Madisyn Lara MD [address] [facility] [place] [address] Primary Staff Physician Cardiology 08/16/18 White Work Cleaner Relationship Specialty Start Date End Date Ricardo Hooper MD PCP - General Family Medicine 01/11/19 Madisyn Lara MD [address] [facility] [place] [address] Primary Staff Physician Cardiology 08/16/18 White Work Cleaner Relationship Specialty Start Date End Date Ricardo Hooper MD PCP - General Family Medicine 01/11/19 Madisyn Lara MD [address] [facility] [place] [address] Primary Staff Physician Cardiology 08/16/18 White Work Cleaner Relationship Specialty Start Date End Date Ricardo Hooper MD PCP - General Family Medicine 01/11/19 Madisyn Lara MD [address] [facility] [place] [address] Primary Staff Physician Cardiology 08/16/18 White Work Cleaner Relationship Specialty Start Date End Date Ricardo Hooper MD PCP - General Family Medicine 01/11/19 Madisyn Lara MD [address] [facility] [place] [address] Primary Staff Physician Cardiology 08/16/18 White Work Cleaner Relationship Specialty Start Date End Date Ricardo Hooper MD PCP - General Family Medicine 01/11/19 Madisyn Lara MD [address] [facility] [place] [address] Primary Staff Physician Cardiology 08/16/18 White Work Cleaner Relationship Specialty Start Date End Date Ricardo Hooper MD PCP - General Family Medicine 01/11/19 Madisyn Lara MD [address] [facility] [place] [address] Primary Staff Physician Cardiology 08/16/18 White Work Cleaner Relationship Specialty Start Date End Date Ricardo Hooper MD PCP - General Family Medicine 01/11/19 Madisyn Lara MD [address] [facility] [place] [address] Primary Staff Physician Cardiology 08/16/18 White Work Cleaner Relationship Specialty Start Date End Date Ricardo Hooper MD PCP - General Family Medicine 01/11/19 Madisyn Lara MD [address] [facility] [place] [address] Primary Staff Physician Cardiology 08/16/18 White Work Cleaner Relationship Specialty Start Date End Date Ricardo Hooper MD PCP - General Family Medicine 01/11/19 Madisyn L[address] [facility] [place] [address] Primary Staff Physician Cardiology 08/16/18 White Work Cleaner Relationship Specialty Start Date End Date Ricardo Hooper MD PCP - General Family Medicine 01/11/19 Madisyn Lara MD [address] [facility] [place] [address] Primary Staff Physician Cardiology 08/16/18 Team Status: Inactive Member Role Status Dates Ricardo Hooper MD Primary Care Provider Active Start: February 07, 2024 End: February 07, 2024 Melany Chang APRN [facility] Attending Provider Active Start: February 07, 2024 End: February 07, 2024 Team Status: Inactive Member Role Status Dates Ricardo Hooper MD Primary Care Provider Active Start: February 24, 2024 End: February 24, 2024 Enmanuel Burton DO Attending Provider , Referring Provider Active Start: February 24, 2024 End: February 24, 2024 White Work Cleaner Relationship Specialty Start Date End Date Ricardo Hooper MD PCP - General Family Medicine 01/11/19 Madisyn Lara III, MD Primary Staff Physician Cardiology 08/16/18 White Work Cleaner Relationship Specialty Start Date End Date Ricardo Hooper MD [address] [place] [facility] [place] [address] PCP - General Family Medicine 10/27/22 White Work Cleaner Relationship Specialty Start Date End Date Ricardo Hooper MD [address] [place] [place] [address] PCP - General Family Medicine 10/27/22 White Work Cleaner Relationship Specialty Start Date End Date Ricardo Hooper MD [address] [place] [place] [address] PCP - General Family Medicine 10/27/22 White Work Cleaner Relationship Specialty Start Date End Date Ricardo Hooper MD [address] [place] [facility] [address] PCP - General Family Medicine 10/27/22 White Work Cleaner Relationship Specialty Start Date End Date Ricardo Hooper MD [address] [place] [place] [address] PCP - General Family Medicine 10/27/22 White Work Cleaner Relationship Specialty Start Date End Date Ricardo Hooper MD [address] [place] [facility] [place] [address] PCP - General Family Medicine 10/27/22 White Work Cleaner Relationship Specialty Start Date End Date Ricardo Hooper MD [address] [place] [place] [address] PCP - General Family Medicine 10/27/22 White Work Cleaner Relationship Specialty Start Date End Date Ricardo Hooper MD [address] [place] [place] [address] PCP - General Family Medicine 10/27/22 White Work Cleaner Relationship Specialty Start Date End Date Ricardo Hooper MD [address] [place] [facility] [place] [address] PCP - General Family Medicine 10/27/22 White Work Cleaner Relationship Specialty Start Date End Date Ricardo Hooper MD [address] [place] [facility] [place] [address] PCP - General Family Medicine 10/27/22 White Work Cleaner Relationship Specialty Start Date End Date Ricardo Hooper MD [address] [place] [place] [address] PCP - General Family Medicine 10/27/22 White Work Cleaner Relationship Specialty Start Date End Date Ricardo Hooper MD [address] [place] [facility] [place] [address] PCP - General Family Medicine 10/27/22 White Work Cleaner Relationship Specialty Start Date End Date Ricardo Hooper MD [address] [place] [facility] [place] [address] PCP - General Family Medicine 10/27/22 White Work Cleaner Relationship Specialty Start Date End Date Ricardo Hooper MD [address] [place] [place] [address] PCP - General Family Medicine 10/27/22 White Work Cleaner Relationship Specialty Start Date End Date Ricardo Hooper MD [address] [place] [facility] [place] [address] PCP - General Family Medicine 10/27/22 White Work Cleaner Relationship Specialty Start Date End Date Ricardo Hooper MD [address] [place] [place] [address] PCP - General Family Medicine 10/27/22 White Work Cleaner Relationship Specialty Start Date End Date Ricardo Hooper MD [address] [place] [address] PCP - General Family Medicine 10/27/22 White Work Cleaner Relationship Specialty Start Date End Date Ricardo Hooper MD [address] [place] [address] PCP - General Family Medicine 10/27/22 Team Status: Inactive Member Role Status Dates Ricardo Hooper MD Primary Care Provider Active Start: July 11, 2024 End: July 11, 2024 Melany Chang APRN [facility] Attending Provider Active Start: July 11, 2024 End: July 11, 2024 White Work Cleaner Relationship Specialty Start Date End Date Ricardo Hooper MD [address] [place] [id number] PCP - General Family Medicine 08/01/19 White Work Cleaner Relationship Specialty Start Date End Date Ricardo Hooper MD [address] [place] [address] PCP - General Family Medicine 08/01/19 White Work Cleaner Relationship Specialty Start Date End Date Ricardo Hooper MD PCP - General Family Medicine 08/01/19 White Work Cleaner Relationship Specialty Start Date End Date Ricardo Hooper MD [address] [place] [address] PCP - General Family Medicine 10/27/22 White Work Cleaner Relationship Specialty Start Date End Date Ricardo Hooper MD [address] [place] [address] PCP - General Family Medicine 10/27/22 Goals (unrecognized section and content) Goals may be documented in a n alternate section No data available for this sectionGoals may be documented in an alternate sectionGoals may be documented in an alternate sectionGoals may be documented in an alternate sectionNot on filedocumented as of this encounterNot on filedocumented as of this encounterNot on filedocumented as of this encounter Ordered [...] 1102 (Given - Provider: Paula Isabel, NING) lisinopril (PRINIVIL;ZESTRIL) tablet 20 mg (CANCELED) 20 [...] Muscle spasms, Post-op bupivacaine-EPINEPHrine PF (MARCAINE-w/EPINEPHRINE) 0.5% -1:[id number] injection (CANCELED) PRN, Starting on Wed02/16/22 at [...] BE BASED ON THE PRIMARY CLINICAL RECORDS. [employer] provides no warranty or guarantee of the accuracy or completeness of information in this document.
--- NOTE | 2024-07-30 07:35 | ED_ITS ---
HPI HPI - General Adult General Chief complaint: Headache Stated complaint: HEADACHE Time Seen by Provider: 07/30/24 07:19 Source: patient Mode of arrival: walk-in History of Present Illness HPI narrative: cc = headache, neck pain On 07/25/2024, while sitting at the computer, the patient experienced mild pain across the forehead. Over time, the pain slowly moved into the temples and has remained in the forehead and the temples since 07/26/2024. The pain waxes and wanes but does not go away. When she woke this morning, she described the pain as being very mild, but the pain advanced and worsened within an hour of waking. At no time since the onset of the headache as she experienced any visual changes, aura, nausea, vomiting, fever, chills, cough, sweats, URI or respiratory symptoms. No dizziness or lightheadedness. No palpitations or chest pain. On 07/26/2024, the patient developed pain in the neck that is worse on the right than on the left. This pain is worse with movement of the neck and she notes that movement of the neck in any direction causes her headache to worsen. She saw a massage therapist the other day who performed deep tissue massage. The patient says it was so painful that she commented a couple times with massage therapist told her your neck is very tight . She actually has bruises from the depth of the massage. She said the massage did not help with the neck pain or the headache. She told me that Tylenol, Excedrin, ibuprofen, heat and ice have not improved the headache or the neck pain. She currently rates the headache as 6 out of 10 in the neck pain as 5 out of 10. Related Data Home Medications ?Medication ?Instructions ?Recorded ?Confirmed cranberry 2 tab PO DAILY 07/14/23 07/30/24 estradiol 0.01% (0.1 mg/gram) 0.01 g vaginal .3 times a week 07/14/23 07/30/24 vaginal cream ferrous sulfate 325 mg (65 mg 325 mg PO .3 times a week 07/14/23 07/30/24 iron) tablet lisinopril 20 mg tablet 20 mg PO DAILY 07/14/23 07/30/24 methenamine hippurate 1 gram tablet 1 g PO BID 07/14/23 07/30/24 sennosides 8.6 mg tablet (senna) 8.6 mg PO .evenings 07/14/23 07/30/24 trazodone 100 mg tablet 100 mg PO BEDTIME 07/14/23 07/30/24 Lactobacillus acidophilus 1 tab PO .evenings 10/05/23 07/30/24 azelastine 4 spray intranasal BID PRN 10/05/23 07/30/24 allergic symptoms esomeprazole magnesium 40 mg 40 mg PO DAILY 10/05/23 07/30/24 capsule,delayed release levocetirizine 5 mg tablet (Xyzal) 5 mg PO DAILY 11/17/23 07/30/24 baclofen 10 mg tablet 10 mg PO DAILY PRN muscle spasm 06/07/24 07/30/24 multivitamin 1 tab PO DAILY 06/07/24 07/30/24 famotidine 20 mg tablet mg 07/30/24 phentermine 37.5 mg tablet mg 07/30/24 Previous Rx's ?Medication ?Instructions ?Recorded tramadol 50 mg tablet 50 mg PO DAILY PRN pain #30 tabs 04/10/24 tramadol 50 mg tablet See Rx Instructions .Route 06/07/24 .COMPLEX PRN pain #15 tabs tramadol 50 mg tablet 50 mg PO DAILY PRN pain #15 tabs 07/24/24 methocarbamol 750 mg tablet 750 mg PO Q6H PRN pain #30 tabs 07/30/24 nabumetone 750 mg tablet 750 mg PO BID PRN pain #14 tabs 07/30/24 ondansetron 4 mg disintegrating 4 mg PO Q6H PRN headache #20 tabs 07/30/24 tablet Allergies Allergy/AdvReac Type Severity Reaction Status Date / Time doxycycline Allergy Unknown Verified 12/22/23 11:04 levofloxacin (From Levaquin) Allergy joint Verified 12/22/23 11:04 swelling miconazole (From Monistat 3) Allergy Unknown Verified 12/22/23 11:04 nitrofurantoin (From Allergy Gi Verified 12/22/23 11:04 Macrobid) intolerance, nausea, rash, swelling Penicillins Allergy sob Verified 12/22/23 11:04 skin cleanser combination Allergy Unknown Verified 12/22/23 11:04 no.17 (From Monistat 3) ciprofloxacin (From Cipro) AdvReac GI Verified 12/22/23 11:04 intolerance clindamycin AdvReac Nausea Verified 12/22/23 11:04 Opioid HPI Opioid Management Most Recent Opioid Data: Last Pain Scale 3 12/22/23 10:10 12/22/23 Last MAR Pain Assessment 07/30/24 07:40 PFSH [facility] Medical History (Updated 07/30/24 @ 09:30 by Rad Hong) Blood disorder ?D75.9 - Disease of blood and blood-forming organs, unspecified (ICD-10) GERD (gastroesophageal reflux disease) ?K21.9 - Gastro-esophageal reflux disease without esophagitis (ICD-10) HTN (hypertension) ?I10 - Essential (primary) hypertension (ICD-10) Frequent UTI ?N39.0 - Urinary tract infection, site not specified (ICD-10) Left hip pain ?M25.552 - Pain in left hip (ICD-10) Arthritis ?M19.90 - Unspecified osteoarthritis, unspecified site (ICD-10) Surgical History Previous back surgery ?Z98.890 - Other specified postprocedural states (ICD-10) History of ankle surgery ?Z98.890 - Other specified postprocedural states (ICD-10) History of carpal tunnel repair ?Z98.890 - Other specified postprocedural states (ICD-10) Hx of arthroscopy of shoulder ?Z98.890 - Other specified postprocedural states (ICD-10) Hx of total knee arthroplasty ?Z96.659 - Presence of unspecified artificial knee joint (ICD-10) H/O total hip arthroplasty ?Z96.649 - Presence of unspecified artificial hip joint (ICD-10) Social History Little interest or pleasure in doing things: not at all Feeling down, depressed, or hopeless: not at all Exam Narrative Exam Narrative: Nurses notes and vital signs reviewed and patient is not hypoxic. afebrile General: Well-appearing and in no apparent distress. Skin: Warm, dry, no pallor noted. No rash. Head: Normocephalic, atraumatic. Neck: Supple, no posterior cervical lymphadenopathy. No meningismus. She has tenderness of the soft tissue of the cervical spine without any midline bony cervical tenderness. The right side is more tender than the left. She does have a small amount of tightness on the right side. The left side is supple. Eye: Pupils are equal, round and EOMI. No scleral icterus. Ears, Nose, Mouth, and Throat: Oral mucosa is moist Cardiovascular: Regular Rate and Rhythm without murmur, gallop or rub. Respiratory: No accessory muscle use or respiratory distress. Lungs are clear to auscultation, no wheezing, rales or rhonchi Back: No midline thoracic or lumbar vertebral tenderness. No scapular tenderness. She has a little bit of tenderness to the superior and medial aspect of the right and left trapezius Musculoskeletal: normal ROM Neurological: A&O x4. No cranial nerve dysfunction observed. No truncal ataxia. Moves all extremities. Sensation intact. Psychiatric: Cooperative and interactive. Normal mood and affect. Constitutional Vital Signs, click to edit/add: Last Vital Signs Temp 97.9 F 07/30/24 07:19 Pulse 90 07/30/24 07:19 Resp 18 07/30/24 07:19 BP 159/92 H 07/30/24 07:19 Pulse Ox 99 07/30/24 07:19 O2 Del Method Room Air 07/30/24 07:19 Course Vital Signs Vital signs: Vital Signs Temperature 97.9 F 07/30/24 07:19 Pulse Rate 90 07/30/24 07:19 Respiratory Rate 18 07/30/24 07:19 Blood Pressure 159/92 H 07/30/24 07:19 Pulse Oximetry 99 07/30/24 07:19 Oxygen Delivery Method Room Air 07/30/24 07:19 Temperature 97.9 F 07/30/24 07:19 Pulse Rate 90 07/30/24 07:19 Respiratory Rate 18 07/30/24 07:19 Blood Pressure 159/92 H 07/30/24 07:19 Pulse Oximetry 99 07/30/24 07:19 Oxygen Delivery Method Room Air 07/30/24 07:19 Medical Decision Making MDM Narrative Medical decision making narrative: While the patient's onset and progression of headache is not classic for acute intracranial hemorrhage, I do have some concern with the movement of the location of the pain as well as the development of pain in the neck. I am sending her for imaging of the brain and cervical spine. In the meantime, ED nurse applied a peripheral IV so that I can give the patient IV Toradol, IV Zofran and she will receive oral Robaxin. 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 On recheck at 0830, the pt's headache severity had been cut in half and her neck pain decreased as well. CT of the head, CT cervical spine -per radiologist no worrisome pathology was noted. See the report below. On recheck at 0915, patient scaled her neck pain is going from 9 out of 10 on arrival to 2 out of 10 now. She rated her headache as going from 9 out of 10 on arrival to 5 or 6 out of 10 now. She and I discussed her negative CT results and her diagnoses as well as plan for treatment moving forward. She will receive IV Solu-Medrol and oral Benadryl before discharge. Patient discharged home with prescription for oral dissolvable Zofran, oral Robaxin and oral Relafen. Reasons for these medications, when to take them and how to take them were explained to the patient. It was recommended that she follow-up with her PCP. She can return to the ED if she develops worsening symptoms. Imaging Data CT scan - head: My impression: NAD Radiologist's impression: 1. No CT evidence of acute intracranial pathology. 2. Further evaluation with MRI may be of use, if clinically indicated. ct -cervical spine: Radiologist's impression: 1. No evidence of acute fracture or subluxation. 2. Straightening with mild reversal of the normal cervical lordosis, possibly on the basis of muscle spasm or positioning. 3. Disc height loss with posterolateral osteophytes as described. 4. Facet joint degenerative changes. Discharge Plan Discharge Chief Complaint: Headache Clinical Impression: Headache, Acute cervical myofascial strain Patient Disposition: Home, Self-Care Time of Disposition Decision: 09:30 Prescriptions / Home Meds: New nabumetone 750 mg tablet 750 mg PO BID PRN (Reason: pain) Qty: 14 0RF methocarbamol 750 mg tablet 750 mg PO Q6H PRN (Reason: pain) Qty: 30 0RF ondansetron 4 mg tablet,disintegrating 4 mg PO Q6H PRN (Reason: headache) Qty: 20 0RF No Action estradiol 0.01 % (0.1 mg/gram) cream 0.01 g VAGINAL .3 times a week ferrous sulfate 325 mg (65 mg iron) tablet 325 mg PO .3 times a week lisinopril 20 mg tablet 20 mg PO DAILY methenamine hippurate 1 gram tablet 1 g PO BID trazodone 100 mg tablet 100 mg PO BEDTIME cranberry 2 tab PO DAILY sennosides [senna] 8.6 mg tablet 8.6 mg PO .evenings levocetirizine [Xyzal] 5 mg tablet 5 mg PO DAILY tramadol 50 mg tablet 50 mg PO DAILY PRN (Reason: pain) Qty: 30 0RF esomeprazole magnesium 40 mg capsule,delayed release(DR/EC) 40 mg PO DAILY Lactobacillus acidophilus 1 tab PO .evenings azelastine 4 spray intranasal BID PRN (Reason: allergic symptoms) baclofen 10 mg tablet 10 mg PO DAILY PRN (Reason: muscle spasm) multivitamin Tablet 1 tab PO DAILY tramadol 50 mg tablet See Rx Instructions .ROUTE .COMPLEX PRN (Reason: pain) Qty: 15 0RF Rx Instructions: 50mg tab po everyday moderate to severe pain prn #15 to last 30 days tramadol 50 mg tablet 50 mg PO DAILY PRN (Reason: pain) Qty: 15 0RF phentermine 37.5 mg tablet famotidine 20 mg tablet Print Language: Polish Instructions: Acute Headache (ED), Cervical Sprain (ED) Referrals: Jono Archer MD [Primary Care Provider] - 1 week Discharge Date/Time: 07/30/24 09:46
[2024-07-30] MEDS: ONDANSETRON PF 4 MG/2 ML VIAL IV (07:40)
[2024-07-30] MEDS: METHOCARBAMOL 500 MG TABLET PO (07:40)
[2024-07-30] MEDS: KETOROLAC TROMETHAMINE 30 MG/ML VIAL IVP (07:40)
[2024-07-30] MEDS: DIPHENHYDRAMINE HCL 25 MG CAPSULE PO (09:33)
[2024-07-30] MEDS: METHYLPREDNISOLONE SOD SUCC PF 125 MG/2 ML VIAL IVP (09:33)
== END 2024-07-30 09:46 | disposition home or self-care (01) ==
PROVIDERS: Emergency Provider Emergency Medicine; PCP Family Medicine
DX: R51.9 Headache, unspecified (principal); M54.2 Cervicalgia; S16.1XXA Strain of muscle, fascia and tendon at neck level, initial encounter; X58.XXXA Exposure to other specified factors, initial encounter
CPT/HCPCS: 70450; 72125; 96374; 96375; 99284; J1885; J2405; J2919

== ENCOUNTER 2024-08-21 08:11 | Outpatient (OUT) | payer MEDICARE, SELFPAY ==
--- NOTE | 2024-08-21 08:13 | MR_ITS ---
[address] [address] Patient Name: QUANG SALDIVAR MRN: [id number] date: 1955 Sex: F Assigned Patient Location: MRI Current Patient Location: MRI Accession/Order Number: [id number] Exam Date: 08/21/2024 13:53 Report Date: 08/21/2024 13:56 At the request of: VERNELL FARRELL Procedure: MR cervical spine wo con EXAMINATION: MRI C-SPINE WITHOUT IV CONTRAST CLINICAL HISTORY: Neck Pain COMPARISON: CT cervical spine 07/30/2024 TECHNIQUE: Multiecho imaging was performed in the sagittal and axial planes without contrast administration. FINDINGS: Vertebral body heights appear maintained. No bone marrow edema. Cervical medullary junction appears normal. No abnormal cord signal. No paraspinal mass. No prevertebral soft tissue swelling. At C2-3: No posterior disc pathology. No neural canal or foraminal stenosis. At C3-4: Mild disc osteophyte complex present causing no significant canal or neural foraminal stenosis. At C4-5: Disc osteophyte complex present causing mild canal and bilateral neural foraminal stenosis. At C5-6: Disc osteophyte complex present causing mild canal and moderate bilateral neural foraminal stenosis. At C6-7: Disc osteophyte complex present causing mild canal and moderate right-sided neural foraminal stenosis. At C7-T1: No posterior disc pathology. No neural canal or foraminal stenosis. MR/MR cervical spine wo con IMPRESSION: Multilevel degenerative disc disease as described above, worst at C5-C7. Impression dictated by: Cecil Elizabeth Jr., D.O.08/21/2024 1:56 PM Dictation Location: [facility] Electronically authenticated by: [id number] Y Date: 08/21/2024 13:56
== END 2024-08-21 08:12 | disposition home or self-care (01) ==
LOC: MRI 08:11
PROVIDERS: PCP Family Medicine; Visit Provider Nurse Practitioner Family
DX: M50.30 Other cervical disc degeneration, unspecified cervical region (principal); M25.78 Osteophyte, vertebrae
CPT/HCPCS: 72141

== ENCOUNTER 2024-09-07 08:57 | Outpatient (OUT) | payer MEDICARE, SELFPAY ==
--- NOTE | 2024-09-07 09:35 | PM.CN ---
Consult Note: HPI Data of Consult Patient: known to practice within the last 3 years Requesting Physician: Jerrica Brito NP Primary Care Provider: Jono Archer MD Consult Narrative Reason for consult: left leg pain Narrative: Jessica Ferrera a 68 year old female presents for evaluation of left thigh and leg pain, hx of left total hip replacement. pain unresponsive to > 6 weeks of PT and provider guided HEP, heat, ice, tylenol, and NSAIDs. insurance would not cover transdermal compound cream. hx of lumbar surgery. prior lumbar MRI consistent with lumbar DDD, lumbar spondylosis, and lumbar stenosis. pain today 7/10 increasing to 10/10 with standing, walking, weather changes, activity. denies falls/injury. cc:: CC: Jerrica Brito NP Review of Systems ROS Status of ROS 10 or more systems reviewed and unremarkable except as noted in history and below Musculoskeletal Reports: back pain and extremity pain PFSH [facility] Medical History (Updated 09/07/24 @ 09:38 by Jerrica Brito NP) Blood disorder ?D75.9 - Disease of blood and blood-forming organs, unspecified (ICD-10) GERD (gastroesophageal reflux disease) ?K21.9 - Gastro-esophageal reflux disease without esophagitis (ICD-10) HTN (hypertension) ?I10 - Essential (primary) hypertension (ICD-10) Frequent UTI ?N39.0 - Urinary tract infection, site not specified (ICD-10) Left hip pain ?M25.552 - Pain in left hip (ICD-10) Arthritis ?M19.90 - Unspecified osteoarthritis, unspecified site (ICD-10) Surgical History Previous back surgery ?Z98.890 - Other specified postprocedural states (ICD-10) History of ankle surgery ?Z98.890 - Other specified postprocedural states (ICD-10) History of carpal tunnel repair ?Z98.890 - Other specified postprocedural states (ICD-10) Hx of arthroscopy of shoulder ?Z98.890 - Other specified postprocedural states (ICD-10) Hx of total knee arthroplasty ?Z96.659 - Presence of unspecified artificial knee joint (ICD-10) H/O total hip arthroplasty ?Z96.649 - Presence of unspecified artificial hip joint (ICD-10) Social History Little interest or pleasure in doing things: not at all Feeling down, depressed, or hopeless: not at all Meds Home Medications and Allergies Home Medications ?Medication ?Instructions ?Recorded ?Confirmed ?Type cranberry 2 tab PO DAILY 07/14/23 07/30/24 History estradiol 0.01% (0.1 mg/gram) 0.01 g vaginal .3 times a week 07/14/23 07/30/24 History vaginal cream ferrous sulfate 325 mg (65 mg 325 mg PO .3 times a week 07/14/23 07/30/24 History iron) tablet lisinopril 20 mg tablet 20 mg PO DAILY 07/14/23 07/30/24 History methenamine hippurate 1 gram tablet 1 g PO BID 07/14/23 07/30/24 History sennosides 8.6 mg tablet (senna) 8.6 mg PO .evenings 07/14/23 07/30/24 History trazodone 100 mg tablet 100 mg PO BEDTIME 07/14/23 07/30/24 History Lactobacillus acidophilus 1 tab PO .evenings 10/05/23 07/30/24 History azelastine 4 spray intranasal BID PRN 10/05/23 07/30/24 History allergic symptoms esomeprazole magnesium 40 mg 40 mg PO DAILY 10/05/23 07/30/24 History capsule,delayed release levocetirizine 5 mg tablet (Xyzal) 5 mg PO DAILY 11/17/23 07/30/24 History tramadol 50 mg tablet 50 mg PO DAILY PRN pain #30 tabs 04/10/24 Rx baclofen 10 mg tablet 10 mg PO DAILY PRN muscle spasm 06/07/24 07/30/24 History multivitamin 1 tab PO DAILY 06/07/24 07/30/24 History tramadol 50 mg tablet See Rx Instructions .Route 06/07/24 Rx .COMPLEX PRN pain #15 tabs tramadol 50 mg tablet 50 mg PO DAILY PRN pain #15 tabs 07/24/24 07/30/24 Rx famotidine 20 mg tablet mg 07/30/24 History methocarbamol 750 mg tablet 750 mg PO Q6H PRN pain #30 tabs 07/30/24 Rx nabumetone 750 mg tablet 750 mg PO BID PRN pain #14 tabs 07/30/24 Rx ondansetron 4 mg disintegrating 4 mg PO Q6H PRN headache #20 tabs 07/30/24 Rx tablet phentermine 37.5 mg tablet mg 07/30/24 History Allergies Allergy/AdvReac Type Severity Reaction Status Date / Time doxycycline Allergy Unknown Verified 12/22/23 11:04 levofloxacin (From Levaquin) Allergy joint Verified 12/22/23 11:04 swelling miconazole (From Monistat 3) Allergy Unknown Verified 12/22/23 11:04 nitrofurantoin (From Allergy Gi Verified 12/22/23 11:04 Macrobid) intolerance, nausea, rash, swelling Penicillins Allergy sob Verified 12/22/23 11:04 skin cleanser combination Allergy Unknown Verified 12/22/23 11:04 no.17 (From Monistat 3) ciprofloxacin (From Cipro) AdvReac GI Verified 12/22/23 11:04 intolerance clindamycin AdvReac Nausea Verified 12/22/23 11:04 Exam Constitutional Documenting provider has reviewed patient's vital signs: yes Common normals: no apparent distress, oriented x3, healthy appearing, alert and well nourished General appearance: cooperative HENMT Common normals: normocephalic, hearing grossly normal bilaterally and moist oral mucous membranes Head and scalp: normocephalic Eye Common normals: PERRL Pupil: PERRL Neck & C-Spine Common normals: full ROM General: normal visual inspection Chest Common normals: inspection of chest normal Respiratory Common normals: normal respiratory effort, no retractions and no use of accessory muscles Back & Pelvis Lumbar spine/lower back: ROM limited, pain with ROM and straight leg raise positive left Sacroiliac joints: SI joint(s) abnormal Other: decreased sensation left L3,4,5 strength 4/5 in LLE 5/5 in RLE significant discomfort to touch on left GTB Neuro Common normals: oriented x3 Sensorium/orientation: alert Psych Common normals: mental status grossly normal, thought process normal, cooperative, affect normal, speech normal and activity/motor behavior normal Speech: normal speech Thought process: normal thought process Results Additional Findings Additional findings: If on a controlled substance or opioids, I have checked an [place] report on this patient and there are no aberrancies noted in the prescribing history.??If on a controlled substance or opioid a drug screen was completed and reviewed within the last year, and if there has not been a drug screen completed we ordered one today to monitor higher risk, state monitored pain medication use. As part of providing excellent, safe, comprehensive care, the following was completed at our patient's visit: 1. A medication reconciliation and review to ensure accurate knowledge of current/active medications, including asking our patients to inform us about any [id number] medications or herbal remedies/nutritional supplements/alternative remedies. 2. A review to specifically ensure our patients have had annual screening for screening for depression, screening for tobacco use, and screening for unhealthy alcohol use. For concerning screenings had a discussion with the patient, provided patient education, and recommended follow-up with primary care provider when appropriate. If patient noted with a risk of falling, they received education on strength, gait, and balance training to prevent future risk of falling. Portions of this note may have been carried over from the previous visit and updated as appropriate. Please note this office utilizes paper charting in addition to the electronic medical record. A list of current medications, vitals, and PMH is available there as the clinical staff outside of myself do not have access to [employer] charting during the clinic day operations. As part of providing quality comprehensive care the current medications, vitals, and PMH were reviewed in the paper chart. Assessment and Plan Assessment and Plan (1) Lumbar stenosis with neurogenic claudication: Assessment and Plan: The patient has had over 3 months of moderate to severe left leg pain with functional impairment and inadequate response to conservative care including NSAIDS (unless there are contraindication such as concurrent blood thinners), multiple oral or topical pain medications, and home exercise program/physical therapy.? Patient has completed >6 weeks of guided home exercise program and/or formal physical therapy program without relief of their symptoms.? I have reviewed the imaging of the lumbar spine and no red flags were identified.? The Oswestry Disability Index was completed, and the patient scored a 44%.? The patient noted the following:?? moderate to severe pain with ADLs, sitting, standing, walking, lifting, sleep, social life, and travel We discussed the risks and benefits of the procedure with the patient, and we are NOT planning on using sedation as outlined in the guidelines from Medicare unless there is a documented reason that sedation would be strongly recommended.?? ?The procedure will be completed with fluoroscopic guidance.? (2) Greater trochanteric bursitis of left hip: (3) Chronic use of opiate drug for therapeutic purpose: (4) Myalgia, other site: Plan left L3,4 L4,5 TFESI under fluoroscopy left GTB injection in the office with Dr Casarez continue current medications, risks vs benefits reviewed. tolerating well without side effects continue HEP as tolerated f/u 2 weeks after injection
== END 2024-09-07 08:58 | disposition home or self-care (01) ==
PROVIDERS: PCP Family Medicine; Visit Provider Nurse Practitioner
DX: M48.062 Spinal stenosis, lumbar region with neurogenic claudication (principal); M70.62 Trochanteric bursitis, left hip; Z79.891 Long term (current) use of opiate analgesic; M79.18 Myalgia, other site
CPT/HCPCS: G0463